=== PATIENT | female | born 1950 | race Caucasian/White ===

== ENCOUNTER 2016-04-26 06:27 | Emergency (ER) | payer MEDICARE, OTHER ==
[~2016-04-26] VITALS: Ht 157.5 cm; Wt 61.5 kg
[~2016-04-26 06:27] MED LIST: AC500T PO; ACET5ELI PO; ALPR0.5T72 PO; ASP81TEC PO; ASPI1CPM PO; CALC-656 PO; CALC-701 PO; CARV3.122 PEG; CARV3.122 PO; CEPH-507 PEG; CINN500C7 PO; CITA-105 PO; CITA20TA4 PO; CITA40TA11 PEG; CYCL10TA9 PO; DPAS20025 PO; EXEN10PE SQ; FLUT10SP NS; FURO20TA4 PEG; FURO20TA4 PO; GUAR GUM PO; HCT25T PO; HYDR-3729 PEG; HYDR25TA4 PEG; HYDR25TA4 PO; IBUP-30 PO; INSU100I23 SC; INSU100I29 SC; INSU100I29 SQ; INSU100V5 SQ; Insulin Human Lispro SC; KCL10CCR PO; LEVE1U SQ; LEVO500T2 PEG; LEVO500T80 PEG; LIRA0.6P SQ; LISI-552 PEG; LISI20TA PO; METF-380 PO; NAPR-689 PO; NUT.237L23 PEG; NUT.237L23 PO; NYST1POW22 TP; OMEG10005 PEG; OMEG1CAP74 PO; OXYC-12 PO; POLY119P5 PEG; POTA10CA43 PEG; PRAV40TA PO; PRAV40TA2 PEG; RALO60TA12 PO; RANI150T11 PEG; RIVA20TA PEG; RIVA20TA2 PO; RLX60T PO; RNT150T PO; SULF1TAB38 PO
--- OUTSIDE RECORDS SUMMARY | 2016-04-26 06:35 | XMS REPORT | Continuity of Care Document ---
Author Author [facility] Organization [facility] Address Unknown Phone Unavailable Care Team Providers Care Rn Clinical Review Name Role Phone No Pcp, Na PCP Unavailable Source Comments Some departments are not documenting in the electronic medical record. If you do not see the information that you expected, contact Release of Information in the Health Information Management department at [phone] for further assistance in locating additional records.[facility] Active Allergies and Adverse Reactions Allergen Noted Date Severity Reactions Comments Morphine 09/13/2014 Low NAUSEA AND VOMITING Current Medications Prescription Sig. Disp. Refills Start End Date Status Date calcium carbonate/vitamin Take 1 Tab by mouth Active D-3 (OSCAL-500+D) 1250 daily. Calcium Carb mg/200 unit tablet 1250mg delivers 500mg elemental Ca hydrochlorothiazide Take 25 mg by mouth Active (HYDRODIURIL) 25 mg daily. tablet lisinopril (PRINIVIL; Take 20 mg by mouth Active ZESTRIL) 20 mg tablet daily. Calcium Carbonate 600 mg Take 1 Tab by mouth Active (1,500 mg) tab daily. albuterol (VENTOLIN HFA, Inhale 2 Puffs by mouth Active PROAIR HFA) 90 every 6 hours as needed mcg/actuation inhaler for Wheezing. [place]-3 Fatty Take 3 Caps by mouth Active Acids-Vitamin E (FISH daily. OIL) 1,000 mg cap Fluticasone Furoate 27.5 Apply 2 Sprays to each Active mcg/actuation spsn nostril as directed daily. lidocaine (LIDODERM) 5 % for pain at peg site 30 Patch 1 09/22/19 Active topical patch 15 carvedilol (COREG) 3.125 1 Tab twice daily. 180 Tab 3 09/22/19 Active mg tablet Administer per feeding 15 tube citalopram (CELEXA) 40 mg Take 1 Tab via feeding 90 Tab 3 09/22/19 Active tablet tube daily. 15 furosemide (LASIX) 20 mg 1 Tab daily as needed 90 Tab 3 09/22/19 Active tablet (swelling). Administer 15 per feeding tube ranitidine(+) (ZANTAC) Take 1 Tab via feeding 180 Tab 3 09/22/19 Active 150 mg tablet tube daily as needed for 15 Heartburn. pravastatin (PRAVACHOL) Take 1 Tab via feeding 90 Cap 3 09/22/19 Active 40 mg tablet tube daily. 15 guaiFENesin (ROBITUSSIN) 20 mL every 6 hours as 1 Bottle 0 09/22/19 Active 100 mg/5 mL oral solution needed. Administer per 15 feeding tube enoxaparin (LOVENOX) 100 Inject 1 mL into area(s) 1 09/22/19 Active mg syrg as directed twice daily. 15 insulin glargine (LANTUS Inject 7 Units into 3 box 3 09/22/19 Active SOLOSTAR) 100 unit/mL (3 area(s) as directed at 15 mL) injection PEN bedtime daily. insulin regular (NOVOLIN Inject 1-7 Units into 10 mL 0 09/22/19 Active R) 100 unit/mL injection area(s) as directed every 15 6 hours. Active Problems Problem Noted Date Labored breathing 09/18/2014 Obesity, Class III, BMI 40-49.9 (morbid obesity) ([facility]) 09/18/2014 Acute ischemic stroke ([facility]) 09/13/2014 Respiratory failure ([facility]) 09/13/2014 S/P administration of tPA (rtPA) in a different facility within the last 24 09/13/2014 hours prior to admission to current facility DM (diabetes mellitus) ([facility]) 09/13/2014 HTN (hypertension) 09/13/2014 Resolved Problems Problem Noted Date Resolved Date On mechanically assisted ventilation ([facility]) 09/13/2014 09/18/2014 Epistaxis 09/13/2014 09/18/2014 Social History Tobacco Use Types Packs/Day Years Used Date Former Smoker Last Filed Vital Signs Vital Sign Reading Time Taken Blood Pressure 133/62 09/21/2014 10:29 AM CDT Pulse 88 09/21/2014 12:30 PM CDT Temperature 36.8 C (98.2 F) 09/21/2014 10:29 AM CDT Respiratory Rate - - Height 1.575 m (5' 2") 09/13/2014 1:51 PM CDT Weight 100.3 kg (221 lb 1.9 oz) 09/20/2014 1:00 AM CDT Body Mass Index 40.43 09/20/2014 1:00 AM CDT Oxygen Saturation 95% 09/21/2014 12:30 PM CDT Plan of Care Health Maintenance Due Date Last Done Comments Physical (Comprehensive) 11/07/1958 Exam Pertussis Vaccine 11/07/1962 Tetanus Vaccine 11/07/1968 Cervical Cancer Screening 11/07/1972 Breast Cancer Screening 1991 Colorectal Cancer 11/07/2001 Screening Shingles Vaccine 2011 Influenza Vaccine 11/21/2015 Results from Last 3 Months Not on file
[2016-04-26 06:47] LABS: BASOPHILS % (AUTO) 0 % (0-10); EOSINOPHILS # (AUTO) 0.1 10^3/uL (0.0-0.3); EOSINOPHILS % (AUTO) 1 % (0-10); LYMPHOCYTES # (AUTO) 1.5 X 10^3 (1.0-4.0); LYMPHOCYTES % (AUTO) 25 % (12-44); MEAN CORPUSCULAR HEMOGLOBIN 32 PG (25-34); MEAN CORPUSCULAR HGB CONC 33 G/DL (32-36); MEAN CORPUSCULAR VOLUME 96 FL (80-99); MEAN PLATELET VOLUME 12.5 FL (7.4-10.4); MONOCYTES # (AUTO) 0.6 X 10^3 (0.0-1.0); MONOCYTES % (AUTO) 11 % (0-12); NEUTROPHILS # (AUTO) 3.7 X 10^3 (1.8-7.8); NEUTROPHILS % (AUTO) 63 % (42-75); PLATELET COUNT 170 10^3/uL (130-400); RED BLOOD COUNT 4.45 10^6/uL (4.35-5.85); WHITE BLOOD COUNT 5.9 10^3/uL (4.3-11.0)
--- NOTE | 2016-04-26 07:07 | ED Respiratory ---
General Stated Complaint: SOA Source: patient, family, EMS Exam Limitations: physical impairment History of Present Illness Time seen by provider: 07:05 Initial Comments This 65-year-old white female presents with a history of shortness of breath that occurred this morning at the [facility]. The patient had been assisted to the bathroom and her oxygen saturation fell into the 70s precipitating the patient's transfer via EMS to the emergency department. The patient has had a previous stroke but has a good understanding of speech but suffers from aphasia. The patient's daughters offer the history of insulin-dependent diabetes, recent episodes of hypoglycemia, urinary tract infections in the past , and intermittent respiratory distress from her rather marked kyphosis. On product test engineer arrival supplemental oxygen per nasal cannula at 3 L patient's sats were 95 percent. I visited with the nurse taking care of the patient at [facility]. She gives a very good history for the patient having had a significant episode that is unusual for the patient. Specifically she described muscle shaking which lasted for several minutes with marked erythema with choking. It was during this time the patient's sat was 74. The patient normally is on room air. The patient when I visited with her stated that she believes this was from her choking on her secretions. Patient would like to have supplemental oxygen for the next day or 2 and she feels more secure with the oxygen. Patient was able to take this 30 mL of liquid Bactrim here PEG tube without difficulty. Allergies and Home Medications Allergies Coded Allergies: morphine (Verified Adverse Reaction, Mild, NAUSEA, 04/26/16) Home Medications Carvedilol 3.125 Mg Tablet 3.125 MG PEG BID (Reported) Citalopram Hydrobromide 40 Mg Tablet 40 MG PEG HS (Reported) Hydrocodone/Acetaminophen 1 Each Tablet 1 TAB PEG Q6H PRN PRN PAIN (Reported) Insulin Detemir 100 Unit/1 Ml Insuln.pen 30Days 10 UNIT SQ BID Prescribed by: HAROLDO TOBAR on 02/25/15 1532 Levofloxacin 500 Mg Tablet #5 500 MG PEG DAILY@0900 Prescribed by: HAROLDO TOBAR on 03/29/15 1241 Lisinopril 20 Mg Tablet 20 MG PEG DAILY (Reported) Nut.tx.gluc.intoler,Lac-Fr,Soy 237 Ml Liquid 273 ML PEG QID (Reported) @ 0600, 1100, 1600, & 2000 Nystatin 1 Each Powder.ea. TP BID (Reported) APPLIES TO BOTH BREASTS AND ABDOMINAL FOLD Pravastatin Sodium 40 Mg Tablet 40 MG PEG HS (Reported) Ranitidine HCl 150 Mg Tablet 150 MG PEG DAILY (Reported) Rivaroxaban 20 Mg Tablet 20 MG PEG DAILY @ 1700 (Reported) Constitutional: No chills, No fever EENTM: No hearing loss, No vision loss Respiratory: No cough, short of breath Cardiovascular: No chest pain, No palpitations Gastrointestinal: No abdominal pain, No vomiting Genitourinary: no symptoms reported Musculoskeletal: muscle stiffness muscle weakness Skin: No rash Psychiatric/Neurological: No Symptoms Reported Hematologic/Lymphatic: No Symptoms Reported Immunological/Allergic: no symptoms reported Past Enbmpzk-Zpthdp-Jkznxu Hx Patient Social History Former Smoker/When Quit: Mar 27, 1999 Immunizations Up To Date Tetanus Booster (TDap): Unknown PED Vaccines UTD: No Date of Pneumonia Vaccine: Nov 19, 2013 Date of Influenza Vaccine: Jan 03, 2015 Seasonal Allergies Seasonal Allergies: Yes Surgeries HX Surgeries: Yes (CARDIAC CATH;PEG TUBE;EGD'S;COLONOSCOPY/POLYPECTOMY;R ROTATOR CUFF;) Surgeries: Abdominal, Cardiac, Section, Hysterectomy, Oophorectomy, Orthopedic, Tonsillectomy Respiratory Hx Respiratory Disorders: Yes (INTUBATED WITH PREVIOUS CVA) Cardiovascular Hx Cardiac Disorders: Yes Cardiac Disorders: Atrial Fibrillation, Coronary Artery Disease, Hypertension Neurological Hx Neurological Disorders: Yes (CVA X 2 WITH SIGNIFICANT DEBILITY-APHASIA, DYSPHAGIA, LEFT HEMIPARESIS) Neurological Disorders: Neuropathy, Stroke Reproductive System Hx Reproductive Disorders: Yes (ENDOMETRIAL CA) Genitourinary Hx Genitourinary Disorders: Yes Genitourinary Disorders: UTI-Chronic Gastrointestinal Hx Gastrointestinal Disorders: Yes (SEVERE DYSPHAGIA) Gastrointestinal Disorders: Gastroesophageal Reflux, Barrios's Esophagus, Diverticulosis, Polyps, Esophagitis, Hiatal Hernia Musculoskeletal Hx Musculoskeletal Disorders: Yes (JOINT PAIN) Musculoskeletal Disorders: Arthritis Endocrine Hx Endocrine Disorders: Yes Endocrine Disorders: Diabetes, Insulin dep HEENT HX ENT Disorders: Yes (APHASIA AND DYSPHAGIA; SINUS PROBLEMS) HEENT Disorders: Cataract, Glaucoma Loss of Vision: Denies Cancer Hx Cancer: Yes (ENDOMETRIAL) Cancer: Uterine Psychosocial Hx Psychiatric Problems: Yes Behavioral Health Disorders: Anxiety, Depression Integumentary HX Skin/Integumentary Disorder: No Blood Transfusions Hx Blood Disorders: No Reviewed Nursing Assessment Reviewed/Agree w Nursing PMH: Yes Family Medical History Significant Family History: Stroke Family Medial History: Patient reports no known family medical history. Physical Exam Vital Signs Vital Sign - Last 12Hours 04/26/16 06:45 Temp 99.4 Pulse 95 Resp 18 B/P 127/75 Pulse Ox 96 O2 Delivery Nasal Cannula O2 Flow Rate 2 Capillary Refill : General Appearance: cachetic no apparent distress Eyes: Bilateral Eye Normal Inspection HEENT: normal ENT inspection Neck: normal inspection Respiratory: decreased breath sounds Cardiovascular: regular rate, rhythm Gastrointestinal: normal bowel sounds non tender soft Extremities: other (status post stroke with limited extremities strength and motion) Neurologic/Psychiatric: alert normal mood/affect motor weakness (status post CVA with aphasia) Skin: normal color warm/dry Progress/Results/Core Measures Results/Orders Lab Results Laboratory Tests Test 04/26/16 06:37 04/26/16 06:52 Range/Units Alanine Aminotransferase (ALT/SGPT) 79 H 0-55 U/L Albumin 3.9 3.2-4.5 G/DL Alkaline Phosphatase 86 40-136 U/L Anion Gap 12 5-14 MMOL/L Aspartate Amino Transf (AST/SGOT) 44 H 5-34 U/L BUN/Creatinine Ratio 46 Basophils # (Auto) 0.0 0.0-0.1 10^3/uL Basophils (%) (Auto) 0 0-10 % Blood Urea Nitrogen 35 H 7-18 MG/DL Calcium Level 9.4 8.5-10.1 MG/DL Carbon Dioxide Level 28 21-32 MMOL/L Chloride Level 99 98-107 MMOL/L Creatinine 0.76 0.60-1.30 MG/DL Eosinophils # (Auto) 0.1 0.0-0.3 10^3/uL Eosinophils (%) (Auto) 1 0-10 % Estimat Glomerular Filtration Rate > 60 Glucose Level 84 70-105 MG/DL Hematocrit 43 35-52 % Hemoglobin 14.1 11.5-16.0 G/DL Lactic Acid Level 1.1 0.5-2.0 MMOL/L Lymphocytes # (Auto) 1.5 1.0-4.0 X 10^3 Lymphocytes (%) (Auto) 25 12-44 % Mean Corpuscular Hemoglobin 32 25-34 PG Mean Corpuscular Hemoglobin Concent 33 32-36 G/DL Mean Corpuscular Volume 96 80-99 FL Mean Platelet Volume 12.5 H 7.4-10.4 FL Monocytes # (Auto) 0.6 0.0-1.0 X 10^3 Monocytes (%) (Auto) 11 0-12 % Neutrophils # (Auto) 3.7 1.8-7.8 X 10^3 Neutrophils (%) (Auto) 63 42-75 % Platelet Count 170 130-400 10^3/uL Potassium Level 4.0 3.6-5.0 MMOL/L Red Blood Count 4.45 4.35-5.85 10^6/uL Red Cell Distribution Width 12.0 10.0-14.5 % Sodium Level 139 135-145 MMOL/L Total Bilirubin 0.5 0.1-1.0 MG/DL Total Protein 6.9 6.4-8.2 G/DL Troponin I < 0.30 <0.30 NG/ML White Blood Count 5.9 4.3-11.0 10^3/uL Urine Amorphous Sediment MOD SONIA URATES H /LPF Urine Bacteria MODERATE H /HPF Urine Bilirubin NEGATIVE NEGATIVE Urine Casts NONE /LPF Urine Clarity CLEAR Urine Color YELLOW Urine Crystals PRESENT H /LPF Urine Culture Indicated YES Urine Glucose (UA) NEGATIVE NEGATIVE Urine Ketones NEGATIVE NEGATIVE Urine Leukocyte Esterase 3+ H NEGATIVE Urine Mucus NEGATIVE /LPF Urine Nitrite NEGATIVE NEGATIVE Urine Protein 2+ H NEGATIVE Urine RBC RARE /HPF Urine RBC (Auto) 3+ H NEGATIVE Urine Specific [place] 1.010 L 1.016-1.022 Urine Squamous Epithelial Cells NONE /HPF Urine Urobilinogen NORMAL NORMAL MG/DL Urine WBC 10-25 H /HPF Urine pH 7 5-9 My Orders Orders-JON BUCHANAN MD Blood Culture (04/26/16 06:34) Lactic Acid Analyzer (04/26/16 06:34) Cbc With Automated Diff (04/26/16 06:34) Comprehensive Metabolic Panel (04/26/16 06:34) Ua Culture If Indicated (04/26/16 06:34) Chest 1 View, Ap/Pa Only (04/26/16 06:34) Ekg Tracing (04/26/16 06:34) Troponin I (04/26/16 06:34) Urine Culture (04/26/16 06:52) Sulfamethoxazole/Trimetho Susp (Bactrim (04/26/16 08:00) Sulfamethoxazole/Trimet Ds Tab (Bactrim (04/26/16 08:00) Vital Signs/I&O Vital Sign - Last 12Hours 04/26/16 06:45 Temp 99.4 Pulse 95 Resp 18 B/P 127/75 Pulse Ox 96 O2 Delivery Nasal Cannula O2 Flow Rate 2 Progress Note : Time: 07:48 Progress Note The patient's laboratory evaluation demonstrated a urinary tract infection. Chest x-ray failed to demonstrate evidence of acute infiltrate. During the patient's evaluation in the emergency department the patient with the supplemental oxygen remained in the mid 90s on her oxygen saturation. The patient's EKG demonstrated a sinus rhythm without any acute current of injury. There was no significant change from the patient's previous EKG. I discussed findings with the patient and the patient's 2 daughters who are here in the emergency department with her. It was there desire that we treat urinary tract infection that the patient be allowed return to medical lives. We 'll initiate Bactrim for the patient. A 23 a.m. The patient, as noted in the present illness, was given Bactrim suspension through her PEG tube without difficulty. Per her request I will order oxygen per nasal cannula at 2 L when necessary for the next few days at [facility]. I'll ask for repeat urine in 3 days with results to be called to Dr. Everett Departure Impression Impression: Primary Impression: Urinary tract infection Qualified Code: N30.00 - Acute cystitis without hematuria Additional Impressions: Hypoxia Aspiration into airway Qualified Code: T17.908A - Unspecified foreign body in respiratory tract, part unspecified causing other injury, initial encounter Disposition: 01 HOME, SELF-CARE Condition: Improved Departure-Patient Inst. Decision time for Depature: 08:27 Referrals: EVA EVERETT MD (PCP/Family) Primary Care Physician Patient Instructions: Choking, Urinary Tract Infection, Adult (DC) Add. Discharge Instructions: Watch for signs of delayed aspiration. Bactrim suspension 30 mL twice a day for 5 days. Oxygen at 2 L per nasal cannula as needed to keep sats greater than 90. Repeat urinalysis on Wednesday with results please to Dr. Everett. JON BUCHANAN MD Apr 26, 2016 07:07
[2016-04-26 07:13] LABS: ALANINE AMINOTRANSFERASE 79 U/L (0-55); ALBUMIN 3.9 G/DL (3.2-4.5); ANION GAP 12 MMOL/L (5-14); ASPARTATE AMINO TRANSFERASE 44 U/L (5-34); BILIRUBIN,TOTAL 0.5 MG/DL (0.1-1.0); BLOOD UREA NITROGEN 35 MG/DL (7-18); BUN/CREATININE RATIO 46; CALCIUM 9.4 MG/DL (8.5-10.1); CARBON DIOXIDE 28 MMOL/L (21-32); CHLORIDE 99 MMOL/L (98-107); CREATININE SERUM 0.76 MG/DL (0.60-1.30); GFR ESTIMATED > 60; GLUCOSE 84 MG/DL (70-105); SODIUM 139 MMOL/L (135-145); TOTAL PROTEIN 6.9 G/DL (6.4-8.2)
[2016-04-26 07:19] LABS: TROPONIN I < 0.30 NG/ML (<0.30)
[2016-04-26 07:20] LABS: BILIRUBIN,URINE NEGATIVE (NEGATIVE); KETONES,URINE NEGATIVE (NEGATIVE); LEUKOCYTE ESTERASE ,URINE 3+ (NEGATIVE); NITRITE,URINE NEGATIVE (NEGATIVE); PH,URINE 7 (5-9); PROTEIN,URINE 2+ (NEGATIVE); UROBILINOGEN,URINE NORMAL (NORMAL)
--- NOTE | 2016-04-26 07:42 | Diagnostic Imaging Report ---
CLINICAL INDICATION: Patient with fever. EXAM: Portable chest x-ray upright view. COMPARISONS: Chest x-ray dated 08/10/2015. FINDINGS: Again seen mild left basilar atelectasis or scarring. There is no interval lung infiltrate. Pulmonary vasculature and cardiac silhouette is within normal limits. Bones show no significant interval abnormality. IMPRESSION: Stable chest x-ray exam with mild left basilar atelectasis or scarring. Dictated by: Dictated on workstation # [id number]
[2016-04-26] MEDS ORDERED: TRIM/SULFAMETH 160/800 (SEPTRA DS) TAB PO ONE (08:00)
[2016-04-26] MEDS ORDERED: SULFAMETHOXAZOLE/TRIMETHO SUSP 10 ML (BACTRIM) UDC PEG SCH (08:00)
[2016-04-26 10:30] VITALS: BP 125/76
== END 2016-04-26 10:30 ==
LOC: EDUNIT# 06:27 → ER 06:30
DX: N39.0 Urinary tract infection, site not specified (principal); R09.02 Hypoxemia; T18.198A Other foreign object in esophagus causing other injury, initial encounter; I69.920 Aphasia following unspecified cerebrovascular disease; I69.991 Dysphagia following unspecified cerebrovascular disease; K22.70 Barrett's esophagus without dysplasia; K44.9 Diaphragmatic hernia without obstruction or gangrene; E11.9 Type 2 diabetes mellitus without complications; I10 Essential (primary) hypertension; I48.2 Chronic atrial fibrillation; M40.209 Unspecified kyphosis, site unspecified; Z79.4 Long term (current) use of insulin; Z79.899 Other long term (current) drug therapy; Z93.1 Gastrostomy status; Y92.129 Unspecified place in nursing home as the place of occurrence of the external cause
CPT/HCPCS: 36415; 51702; 71010; 80053; 81000; 82962; 83605; 84484; 85025; 87040; 87077; 87088; 87186; 93005

== ENCOUNTER 2017-03-25 05:41 | Outpatient (CLI) | payer MEDICARE, OTHER ==
[~2017-03-25] VITALS: Ht 157.5 cm; Wt 74.4 kg
[2017-03-25] MEDS ORDERED: FENT1PAT11 TD (12:49)
[2017-03-25] MEDS ORDERED: BACL10TA PEG (12:49)
[2017-03-25] MEDS ORDERED: HYDR-3820 PEG (12:49)
[2017-03-25] MEDS ORDERED: HYDR25TA4 PEG (12:49)
[2017-03-25] MEDS ORDERED: INSU100I29 SQ (12:49)
[2017-03-25] MEDS ORDERED: CYAN100088 PEG (12:49)
[2017-03-25] MEDS ORDERED: HYOS-20 PEG ×2 (12:49)
[2017-03-25] MEDS ORDERED: CITA20TA7 PEG (12:49)
[2017-03-25] MEDS ORDERED: FENT1PAT8 TD (12:49)
[2017-03-25] MEDS ORDERED: LORA2ORA PEG (12:49)
[2017-03-25] MEDS ORDERED: BISA10SU58 RC (12:49)
== END 2017-03-25 13:08 ==
LOC: PREOP 05:41
PROVIDERS: ATTEND Surgery
DX: Z01.818 Encounter for other preprocedural examination (principal); Z43.1 Encounter for attention to gastrostomy

== ENCOUNTER → 2017-03-26 | Outpatient (CLI) | payer MEDICARE, OTHER ==
[~2017-03-26] MED LIST changes: +BACL10TA PEG; +BISA10SU58 RC; +CITA20TA7 PEG; +CYAN100088 PEG; +FENT1PAT11 TD; +FENT1PAT8 TD; +HYDR-3820 PEG; +HYOS-20 PEG; +LORA2ORA PEG
[2017-03-26 14:45] LABS: BILIRUBIN,URINE NEGATIVE (NEGATIVE); CLARITY,URINE SLIGHTLY CLOUDY; COLOR,URINE YELLOW; GLUCOSE, URINE (UA) NEGATIVE (NEGATIVE); KETONES,URINE NEGATIVE (NEGATIVE); LEUKOCYTE ESTERASE ,URINE 3+ (NEGATIVE); NITRITE,URINE NEGATIVE (NEGATIVE); PH,URINE 8 (5-9); PROTEIN,URINE NEGATIVE (NEGATIVE); UROBILINOGEN,URINE NORMAL (NORMAL)
[2017-03-26 14:57] LABS: BACTERIA,URINE FEW /HPF; SQUAMOUS EPITHELIAL CELL,UR 0-2 /HPF; WBC,URINE 50-100 /HPF
== END ==
PROVIDERS: ATTEND Family Medicine
DX: N39.0 Urinary tract infection, site not specified (principal)
CPT/HCPCS: 81000; 87077; 87088; 87186

== ENCOUNTER 2017-03-29 10:17 | Day surgery (SDC) | payer MEDICARE, OTHER ==
[~2017-03-29] VITALS: Ht 157.5 cm; Wt 74.4 kg
[2017-03-29] MEDS ORDERED: MIDAZOLAM 2 MG/2 ML (VERSED) VIAL IVP PRN (10:30)
[2017-03-29] MEDS ORDERED: NS IV 500 ML 500 ML IV ONE (10:30)
--- NOTE | 2017-03-29 10:52 | Conscious Sedation/ASA ---
Conscious Sedation Pre-Proced Time Reviewed: 10:52 ASA Class: 3 Airway Mallampati Classification: ([place] appropriate class) I. II. III, IV Lungs Heart ASA score ASA 1: a normal healthy patient ASA 2: a patient with a mild systemic disease (mid diabetes, controlled hypertension, obesity ASA 3: a patient with a severe systemic disease that limits activity (angina , COPD, prior Myocardial infarction) ASA 4: a patient with an incapacitating disease that is a constant threat to life (CHF, renal failure) ASA 5: a moribund patient not expected to survive 24 hrs. (ruptured aneurysm) ASA 6: a declared brain patient whose organs are being harvested. For emergent operations, add the letter E after the classification Grade 2 Sedation Plan: Discussed options with patient/fam Note The patient is an appropriate candidate to undergo the planned procedure, sedation, and anesthesia. The patient immediately re-assessed prior to indication. SATINDER FLORIAN MD Mar 29, 2017 10:52 am
[2017-03-29] MEDS ORDERED: NS IV 500 ML 500 ML ONE (10:56)
[2017-03-29 11:10] VITALS: BP 103/56
[2017-03-29] MEDS ORDERED: MIDAZOLAM 2 MG/2 ML (VERSED) VIAL ONE ×3 (11:23)
[2017-03-29] MEDS ORDERED: HURRICAINE EXT TUBE (BENZOCAINE) ONE (11:23)
[2017-03-29] MEDS ORDERED: fentaNYL INJECTION 100 MCG/2 ML AMP ONE (11:23)
[2017-03-29] MEDS ORDERED: NS (IVPB) 50 ML ONE (11:36)
[2017-03-29] MEDS ORDERED: ceFAZolin 1,000 MG (ANCEF) VIAL ONE (11:36)
[2017-03-29] MEDS ORDERED: ceFAZolin 1 GM/NS 50 ML IVPB IV ONE ×2 (11:45)
[2017-03-29] MEDS: fentaNYL INJECTION 100 MCG/2 ML AMP IVP PRN ×2 (12:01→12:05)
[2017-03-29] MEDS ORDERED: proPOfol 200 MG/20 ML (DIPRIVAN) VIAL IV ONE (12:16)
--- NOTE | 2017-03-29 12:53 | Endo Procedure Record ---
Endo Procedure Report Date of Procedure Mar 29, 2017 Surgeon (s) SATINDER FLORIAN MD Post Procedure/Op Diagnosis Inability to open the patient's jaws, making the attempt to replace the PEG tube using an endoscope unsuccessful Procedure Performed Unsuccessful attempt to replace the PEG tube Description of Procedure Anesthesia Type: Conscious Sedation Specimen(s) collected/removed none Description of the Procedure Indication for the procedure: This lady with neurologic dysfunction has a PEG tube, which she is totally dependent on, for nutritional needs. Due to disintegration, replacement under endoscopic guidance was felt to be reasonable. Informed consent was obtained after reviewing the intended procedure in detail. Description of the procedure: She was placed supine on the gurney and conscious sedation achieved initially using Versed and fentanyl and subsequently by propofol infusion by our anesthesiologist. Despite multiple attempts by the nursing staff, myself and the anesthesiologist , her jaws could not be opened due to chronic contractures, making the procedure unsuccessful. Therefore, I brought the daughter into the endoscopy room and explained the challenge to her. She was content to keep using the existing PEG tube for now. Copies To: EVA LORENZO MD, XAVIER M MD Mar 29, 2017 12:53 pm
[2017-03-29 12:55] VITALS: BP 125/63
--- NOTE | 2017-03-29 13:00 | Progress Note-Standard ---
Standard Progress Note Progress Notes/Assess & Plan Date Seen by Provider: Mar 29, 2017 Time Seen by Provider: 12:20 Progress/Assessment & Plan Anesthesia Note ([id number]) Called for a rescue sedation to assist in opening the patients mouth. Versed 2 mg IV and Fentanyl 50 mcg IV had already been given prior to my arrival. Propofol 80 mg given and no change in mouth opening status. Dr Carroll chose to abort the procedure at this point. Pt maintained spontaneous ventilation throughout the procedure. ADWOA ROJO DO Mar 29, 2017 13:00
[2017-03-29 13:25] VITALS: BP 121/68
[2017-03-29 13:55] VITALS: BP 121/68
== END 2017-03-29 13:55 ==
LOC: ENDO 10:17
PROVIDERS: ATTEND Surgery
DX: Z43.1 Encounter for attention to gastrostomy (principal); I63.9 Cerebral infarction, unspecified; E11.9 Type 2 diabetes mellitus without complications; Z53.09 Procedure and treatment not carried out because of other contraindication; Z79.899 Other long term (current) drug therapy
CPT/HCPCS: 82962

== ENCOUNTER 2017-04-15 05:31 | Outpatient (CLI) | payer MEDICARE, OTHER ==
[~2017-04-15] VITALS: Ht 157.5 cm; Wt 74.4 kg
== END 2017-04-15 11:14 ==
LOC: PREOP 05:31
PROVIDERS: ATTEND Surgery
DX: Z01.818 Encounter for other preprocedural examination (principal); Z43.1 Encounter for attention to gastrostomy

== ENCOUNTER → 2017-04-23 | Outpatient (CLI) | payer MEDICARE, MEDICAID ==
--- NOTE | 2017-04-23 12:03 | Diagnostic Imaging Report ---
INDICATION: New PEG tube placement. TIME OF EXAM: 12:04 PM FINDINGS: Tubing overlies the left abdomen, presumably representing the patient's known new PEG tube. There is a rounded mildly opaque structure identified in the right abdomen, adjacent to the right T12 rib. This could conceivably represent the balloon from the patient's recently removed PEG tube. Bowel gas pattern is nonobstructive. There is a large amount of stool in the rectum and sigmoid. A calcific density in the left abdomen is noted which may represent a renal calculus. This measures 8 mm. IMPRESSION: 1. PEG tube placement, as described. There is a rounded, peripherally opaque structure in the right abdomen, perhaps a balloon from patient's recently removed PEG tube. Clinical correlation is recommended. 2. Constipation. 3. Probable left renal calculus. Dictated by: Dictated on workstation # [id number]
== END ==
LOC: RAD 11:00
PROVIDERS: ATTEND Surgery
DX: K59.00 Constipation, unspecified (principal); Z43.1 Encounter for attention to gastrostomy
CPT/HCPCS: 74018

== ENCOUNTER → 2017-04-26 | Outpatient (CLI) | payer MEDICARE, MEDICAID ==
--- NOTE | 2017-04-26 12:43 | Diagnostic Imaging Report ---
INDICATION: Gastrostomy tube evaluation. EXAMINATION: KUB at 12:30 p.m. FINDINGS: The gastrostomy balloon projects over the gastric lumen. There is a 9 mm calcification projecting over the left kidney. IMPRESSION: Left gastrostomy tube appears to be in the stomach. Dictated by: Dictated on workstation # [id number]
== END ==
LOC: RAD 12:03
PROVIDERS: ATTEND Surgery
DX: Z43.1 Encounter for attention to gastrostomy (principal); T18.2XXA Foreign body in stomach, initial encounter
CPT/HCPCS: 74018

== ENCOUNTER → 2017-04-28 | Outpatient (CLI) | payer MEDICARE, MEDICAID ==
--- NOTE | 2017-04-28 10:59 | Diagnostic Imaging Report ---
Procedure: Abdomen flat and erect. Indication: PEG tube replacement. Findings: On the previous exam of 04/23/2017, it was noted that there was a gastrostomy tube in place. There also appeared to be a roughly 3 cm rounded mildly radiopaque density overlying the right mid abdomen. This was felt to be questionable for part of the gastrostomy tube apparatus. The rounded mildly opaque density was again seen on the subsequent exam of to 04/26/2017. That finding is not visualized on this exam however. The gastrostomy tube itself seems to be in good position. As noted on the previous exam, there is a fair amount of gas throughout the rectosigmoid portion of the colon and there is a considerable amount of fecal material throughout the colon. There is some small bowel gas present as well. There is no sign of a bowel obstruction. There is some gas beneath the right hemidiaphragm. This may be related to gas within the hepatic flexure. It is possible that this could be secondary to a small pneumoperitoneum, particularly as the patient has had a recent surgical procedure. If further imaging is desired, a CT would be recommended. Impression: 1. The rounded radiopaque density overlying the right mid abdomen seen at previous studies is not visualized on this exam. The gastrostomy tube seems to be in good position. A followup exam would be recommended for further evaluation. 2. The bowel gas pattern is nonspecific. There is no acute abnormality identified. There still a considerable amount of fecal material throughout the colon. 3. There is a question of a small pneumoperitoneum. 4. These results were discussed with Dr. Bello. Dictated by: Dictated on workstation # [id number]
== END ==
LOC: RAD 09:12
PROVIDERS: ATTEND Surgery
DX: Z43.1 Encounter for attention to gastrostomy (principal)
CPT/HCPCS: 74019

== ENCOUNTER → 2017-04-30 | Outpatient (CLI) | payer MEDICARE, MEDICAID ==
--- NOTE | 2017-04-30 16:00 | Diagnostic Imaging Report ---
INDICATION: Evaluation for foreign body. Comparison with 04/28/2017. FINDINGS: The oval calcified density in the left upper quadrant noted on 04/26/2017 is again identified and does not appear significantly changed. Gastric tube appears in good position overlying the gastric shadow. There is considerable stool present throughout the colon with moderate impacted stool in the rectum. IMPRESSION: 1. Benign-appearing calcification overlying the left upper quadrant measuring 9 mm. This may represent renal calculus. 2. Gastric tube appears in good position. 3. Finding consistent with constipation with moderate impacted stool in the rectal vault. Dictated by: Dictated on workstation # [id number]
== END ==
LOC: RAD 11:33
PROVIDERS: ATTEND Surgery
DX: Z03.89 Encounter for observation for other suspected diseases and conditions ruled out (principal); R19.01 Right upper quadrant abdominal swelling, mass and lump; Z93.1 Gastrostomy status
CPT/HCPCS: 74019

== ENCOUNTER → 2017-05-03 | Outpatient (CLI) | payer MEDICARE, MEDICAID ==
[2017-05-03 09:04] LABS: BILIRUBIN,URINE NEGATIVE (NEGATIVE); CLARITY,URINE CLEAR; COLOR,URINE YELLOW; GLUCOSE, URINE (UA) NEGATIVE (NEGATIVE); KETONES,URINE NEGATIVE (NEGATIVE); LEUKOCYTE ESTERASE ,URINE 3+ (NEGATIVE); NITRITE,URINE POSITIVE (NEGATIVE); PH,URINE 7 (5-9); PROTEIN,URINE 1+ (NEGATIVE); UROBILINOGEN,URINE NORMAL (NORMAL)
[2017-05-03 09:19] LABS: BACTERIA,URINE TRACE /HPF; SQUAMOUS EPITHELIAL CELL,UR 0-2 /HPF; URINE OTHER 0-1 TRANS EPIS /HPF; WBC,URINE 25-50 /HPF
== END ==
PROVIDERS: ATTEND Family Medicine
DX: R35.0 Frequency of micturition (principal); R10.2 Pelvic and perineal pain
CPT/HCPCS: 81000; 87077; 87088; 87186

== ENCOUNTER → 2017-12-16 | Day surgery (SDC) | payer MEDICARE, MEDICAID ==
[~2017-12-16] VITALS: Ht 157.5 cm; Wt 74.4 kg
[~2017-12-16] MED LIST changes: -CITA20TA7 PEG; +CITA20TA9 PEG
[2017-12-16 10:27] VITALS: BP 127/60
[2017-12-16 12:04] VITALS: BP 127/60
--- NOTE | 2017-12-16 12:04 | Progress Note-Post Operative ---
Post-Operative Progess Note Surgeon (s)/Consulting Manager (s) Surgeon MARYCARMEN ANDREW MD Consulting Manager: none Pre-Operative Diagnosis dysphagia, malnutrition. Post-Operative Diagnosis same Procedure & Operative Findings Date of Procedure 12/16/17 Procedure Performed/Findings gastrostomy tube removal and replacement. Anesthesia Type none Estimated Blood Loss Estimated blood loss (mL): minimal Specimens/Packing Specimens Removed none MARYCARMEN ANDREW MD Dec 16, 2017 12:04 pm
--- OUTSIDE RECORDS SUMMARY | 2017-12-16 14:14 | XMS REPORT | Clinical Summary ---
Author Author [facility] Organization [facility] Address Unknown Phone Unavailable Care Team Providers Care House Wirer Helper Name Role Phone No Pcp, Na PCP Unavailable Teena Pang APRN Unavailable Unavailable Karmen Martinez RN Unavailable Unavailable Source Comments Some departments are not documenting in the electronic medical record. If you do not see the information that you expected, contact Release of Information in the Health Information Management department at [phone] for further assistance in locating additional records.[facility] Allergies Active Allergy Reactions Severity Noted Date Comments Morphine NAUSEA AND VOMITING Low 09/13/2014 Current Medications Prescription Sig. Disp. Refills Start [...] hours as needed mcg/actuation inhaler for Wheezing. [place]-3 Fatty Take 3 Caps by mouth Active [...] Obesity, Class III, BMI 40-49.9 (morbid obesity) ([facility]) 09/18/2014 Acute ischemic stroke ([facility]) 09/13/2014 Respiratory failure ([facility]) 09/13/2014 S/P administration of tPA (rtPA) in a different facility within the last 24 09/13/2014 hours prior to admission to current facility DM (diabetes mellitus) ([facility]) 09/13/2014 HTN (hypertension) 09/13/2014 Resolved Problems Problem Noted Date Resolved Date On mechanically assisted ventilation ([facility]) 09/13/2014 09/18/2014 Epistaxis 09/13/2014 09/18/2014 Family History Medical History Relation Name Comments Arthritis-rheumatoid Brother Diabetes Brother Heart Attack Brother High Cholesterol Brother Arthritis-rheumatoid Father Heart Attack Father Heart Failure Father High Cholesterol Father Hypertension Father Rashes/Skin Problems Father Arthritis-rheumatoid Mother Depression Mother Diabetes Mother Heart Attack Mother High Cholesterol Mother Hypertension Mother Migraines Mother Other Mother Stroke Mother Cancer Sister Depression Sister Migraines Sister Relation Name Status Comments Brother Father Mother Sister Social History Tobacco Use Types Packs/Day Years Used Date Former Smoker Sex Assigned at Date Recorded Not on file Last Filed Vital Signs Vital Sign Reading Time Taken Blood Pressure 133/62 09/21/2014 10:29 AM CDT Pulse 88 09/21/2014 12:30 PM CDT Temperature 36.8 C (98.2 F) 09/21/2014 10:29 AM CDT Respiratory Rate - - Oxygen Saturation 95% 09/21/2014 12:30 PM CDT Inhaled Oxygen - - Concentration Weight 100.3 kg (221 lb 1.9 oz) 09/20/2014 1:00 AM CDT Height 157.5 cm (5' 2") 09/13/2014 1:51 PM CDT Body Mass Index 40.44 09/20/2014 1:00 AM CDT Plan of Treatment Health Maintenance Due Date Last Done Comments HEPATITIS C SCREENING 1950 PHYSICAL (COMPREHENSIVE) 11/07/1958 EXAM PERTUSSIS VACCINE 11/07/1962 TETANUS VACCINE 11/07/1968 BREAST CANCER SCREENING 1991 COLORECTAL CANCER 11/07/2001 SCREENING SHINGLES RECOMBINANT 11/07/2001 VACCINE (1 of 2) OSTEOPOROSIS SCREENING 11/07/2016 PNEUMONIA (PCV13/PPSV23) 11/07/2016 VACCINES (1 of 2 - PCV13) INFLUENZA VACCINE 12/20/2017 Results Not on filefrom Last 3 Months
--- OUTSIDE RECORDS SUMMARY | 2017-12-16 14:17 | XMS REPORT | CCD ---
Author Author [facility]onda Everett Organization [facility] Address [address] [place] [address] Phone Care Team Providers Care Director Translational Name Role Phone PP Unavailable CCM Unavailable Summary Purpose Interface Exchange Insurance Providers Payer name Policy type / Coverage type Covered green party ID Effective Begin Date Effective End Date WPS Medicare Part B Medicare Part B [id number] Unknown Unknown [facility] [employer] Medicare Part B [id number] Unknown Unknown Family history Father Diagnosis Age At Onset Arthritis Unknown Hypertension Unknown Mother Diagnosis Age At Onset Diabetes mellitus Type 2 Unknown Depression Unknown Arthritis Unknown Stroke Unknown Hypertension Unknown Sister Diagnosis Age At Onset Colon cancer Unknown Social History Social History Element Codes Description Effective Dates Living arrangements Unknown [facility] 04/15/2017 Marital status Unknown Anothony 06/17/2015 Number of children Unknown 3 06/17/2015 Employment Unknown Retired 06/17/[address]: 3548177 Quit over 10 years ago 15+ 06/17/[address]: 242968153 Never drinks alcohol 06/17/2015 Allergies, Adverse Reactions, Alerts Substance Reaction Codes Entered Date Inactivated Date Status MORPHINE SULFATE emesis, RxNorm: 7052 06/17/2015 No Inactive Date Active Past Medical History Illness Codes Condition Status Onset Date Resolved Date Diabetes Unknown Active 2017 Unknown Essential (primary) hypertension ICD-9: 401.9 ICD-10: I10 Active 07/17/2015 Unknown Pain in left knee ICD- 9: 719.46 ICD-10: M25.562 Active 09/09/2017 Unknown Pain in left shoulder ICD-9: 719.41 ICD-10: M25.512 Active 09/09/2017 Unknown Pain in right knee ICD -9: 719.46 ICD-10: M25.561 Active 09/09/2017 Unknown Pain in right shoulder ICD-9: 719.41 ICD-10: M25.511 Active 09/09/2017 Unknown Type 2 diabetes mellitus with hyperglycemia ICD-9: 250.02 ICD-10: E11.65 Active 06/16/2015 Unknown Type 2 diabetes mellitus without complications ICD-9: 250.00 ICD-10: E11.9 Active 2017 Unknown Low back pain ICD-9: 724.2 ICD-10: M54.5 Active 02/16/2017 Unknown 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 Active 11/09/2016 Unknown Urinary tract infection, site not specified ICD-9: 599.0 ICD-10: N39.0 Active 09/17/2016 Unknown Cervicalgia ICD-9: 723.1 ICD-10: M54.2 Active 07/17/2015 Unknown Dysphagia following cerebral infarction ICD-9: 438.82 ICD-10: I69.391 Active 07/17/2015 Unknown Impacted cerumen, right ear ICD-9: 389.8 ICD-10: H61.21 Active 07/17/2015 Unknown Hyperlipidemia Unknown Active 06/17/2015 Unknown Hypertension Unknown Active 06/17/2015 Unknown Stroke Unknown Active 06/17/2015 Unknown 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 Active 06/16/2015 Unknown Ataxia following cerebral infarction ICD-9: 438.84 ICD-10: I69.393 Active 06/16/2015 Unknown Candidal esophagitis ICD-9: 112.84 ICD-10: B37.81 Active 06/16/2015 Unknown 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 Active 06/16/2015 Unknown Gastrostomy status ICD -9: V44.1 ICD-10: Z93.1 Active 06/16/2015 Unknown Problems Condition Codes Effective Dates Condition Status Diabetes Unknown 2017 Active Essential (primary) hypertension ICD-9: 401.9 ICD-10: I10 07/17/2015 Active Pain in left knee ICD- 9: 719.46 ICD-10: M25.562 09/09/2017 Active Pain in left shoulder ICD-9: 719.41 ICD-10: M25.512 09/09/2017 Active Pain in right knee ICD -9: 719.46 ICD-10: M25.561 09/09/2017 Active Pain in right shoulder ICD-9: 719.41 ICD-10: M25.511 09/09/2017 Active Type 2 diabetes mellitus with hyperglycemia ICD-9: 250.02 ICD-10: E11.65 06/16/2015 Active Type 2 diabetes mellitus without complications ICD-9: 250.00 ICD-10: E11.9 2017 Active Low back pain ICD-9: 724.2 ICD-10: M54.5 02/16/2017 Active 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 11/09/2016 Active Urinary tract infection, site not specified ICD-9: 599.0 ICD-10: N39.0 09/17/2016 Active Cervicalgia ICD-9: 723.1 ICD-10: M54.2 07/17/2015 Active Dysphagia following cerebral infarction ICD-9: 438.82 ICD-10: I69.391 07/17/2015 Active Impacted cerumen, right ear ICD-9: 389.8 ICD-10: H61.21 07/17/2015 Active Hyperlipidemia Unknown 06/17/2015 Active Hypertension Unknown 06/17/2015 Active Stroke Unknown 06/17/2015 Active 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 06/16/2015 Active Ataxia following cerebral infarction ICD-9: 438.84 ICD-10: I69.393 06/16/2015 Active Candidal esophagitis ICD-9: 112.84 ICD-10: B37.81 06/16/2015 Active 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 06/16/2015 Active Gastrostomy status ICD -9: V44.1 ICD-10: Z93.1 06/16/2015 Active Medications Medication Codes Instructions Start Date Stop Date Status Fill Instructions Duragesic 75 mcg/hr transdermal patch RxNorm: 474719 1 Patch TD Q72H 11/11/2017 No Stop Date Active hydrocodone 10 mg-acetaminophen 325 mg tablet RxNorm: 603435 2 Tablet(s) PO scheduled TID and 1 tab q 4 as needed 11/09/2017 No Stop Date Active Not to exceed 3gm/24hr acetaminophen Levemir FlexTouch U-100 Insulin 100 unit/mL (3 mL) subcutaneous pen RxNorm: 189200 8 Unit(s) SQ QHS 11/09/2017 No Stop Date Active fentanyl 100 mcg/hr transdermal patch RxNorm: 032172 1 Patch TD Q72H 2017 12/07/2017 Active hyoscyamine 0.125 mg disintegrating tablet RxNorm: 7834133 1-2 Tablet(s) PO Q8 as needed 11/03/2017 No Stop Date Active carvedilol 3.125 mg tablet RxNorm: 537944 GIVE 1 TABLET VIA PEG TUBE 2 TIMES A DAY 10/22/2017 01/19/2018 Active Generic For:COREG 3.125MG 10/22/2017 9:23:30 AM hydrocodone 10 mg-acetaminophen 325 mg tablet RxNorm: 403100 2 Tablet(s) PO scheduled TID and 1 tab q 4 as needed 10/22/2017 2017 Inactive Not to exceed 3gm/24hr acetaminophen fentanyl 100 mcg/hr transdermal patch RxNorm: 058541 1 Patch TD Q72H 10/20/2017 11/07/2017 Inactive Duragesic 75 mcg/hr transdermal patch RxNorm: 881976 1 Patch TD Q72H 10/20/2017 11/10/2017 Inactive lorazepam 0.5 mg tablet RxNorm: 421385 1 Tablet(s) PO BID and 1 tab q 6 hours prn 10/18/2017 No Stop Date Active baclofen 10 mg tablet RxNorm: 319271 TAKE 1 TABLET THREE TIMES DAILY VIA STOMACH TUBE 10/07/2017 03/05/2018 Active 10/07/2017 5:36:15 PM 10/07/2017 5:36:13 PM N O T I C E Last quantity doesn't match original quantity cranberry extract 500 mg tablet RxNorm: 5777137 1 Tablet(s) PO QAM 10/04/2017 01/31/2018 Active Cipro 500 mg tablet RxNorm: 814386 1 Tablet(s) PO BID 201710/03/2017 Inactive dc keflex hydrocodone 10 mg-acetaminophen 325 mg tablet RxNorm: 790148 2 Tablet(s) PO scheduled TID as needed 10/04/20172017 Inactive Not to exceed 3gm/24hr acetaminophen cranberry extract 500 mg tablet RxNorm: 6547604 1 Tablet(s) PO QAM 10/04/2017 10/03/2017 Inactive Cipro 500 mg tablet RxNorm: 754475 1 Tablet(s) PO BID 201710/10/2017 Inactive dc keflex Duragesic 75 mcg/hr transdermal patch RxNorm: 302042 1 Patch TD Q72H 09/20/2017 10/19/2017 Inactive fentanyl 100 mcg/hr transdermal patch RxNorm: 914030 1 Patch TD Q72H 09/20/2017 10/19/2017 Inactive hyoscyamine 0.125 mg disintegrating tablet RxNorm: 4872003 1 Tablet(s) PO TID and 1 Tablet Q4H prn increased secretions 09/15/2017 11/02/2017 Inactive hydrocodone 10 mg-acetaminophen 325 mg tablet RxNorm: 007739 2 Tablet(s) PO scheduled TID and 1-2 Tabs Q4H PRN pain 09/15/2017 10/03/2017 Inactive Not to exceed 3gm/24hr acetaminophen lorazepam 0.5 mg tablet RxNorm: 469120 1 Tablet(s) PO BID 09/1510/17/2017 Inactive Lexapro 10 mg tablet RxNorm: 971774 1 Tablet(s) PO daily 201709/14/2017 Inactive lisinopril 10 mg tablet RxNorm: 982690 1 Tablet(s) PO daily 06/05/2018 Active Levemir FlexTouch U-100 Insulin 100 unit/mL (3 mL) subcutaneous pen RxNorm: 285736 10 Unit(s) daily 09/09/201709/15 Inactive Duragesic 75 mcg/hr transdermal patch RxNorm: 640707 1 Patch TD Q72H 09/09/2017 09/19/2017 Inactive nystatin 100,000 unit/gram topical cream RxNorm: 071255 1 Gram(s) TOP TID until healed to gaulding 09/06/2017 01/03/2018 Active nystatin 100,000 unit/gram topical cream RxNorm: 503156 1 Gram(s) TOP TID until healed to gaulding 09/06/2017 09/05/2017 Inactive hydrocodone 10 mg-acetaminophen 325 mg tablet RxNorm: 737029 2 Tablet(s) PO scheduled TID as needed 08/31/20172017 Inactive Not to exceed 3gm/24hr acetaminophen fentanyl 100 mcg/hr transdermal patch RxNorm: 528330 1 Patch TD Q72H 08/24/2017 09/19/2017 Inactive fentanyl 50 mcg/hr transdermal patch RxNorm: 970471 1 Patch TD Q72H 08/24/2017 09/08/2017 Inactive fentanyl 25 mcg/hr transdermal patch RxNorm: 146486 1 Patch TD Q72H 08/24/2017 08/24/2017 Inactive hyoscyamine 0.125 mg disintegrating tablet RxNorm: 7354190 Tablet(s) 1-2 Tablet(s ) PO Q8 as needed 08/23/2017 09/14/2017 Inactive hydrocodone 10 mg-acetaminophen 325 mg tablet RxNorm: 598843 1 Tablet(s) PO scheduled TID et Q6 hours as needed 08/18/2017 08/30/2017 Inactive Not to exceed 3gm/24hr acetaminophen hydrochlorothiazide 25 mg tablet RxNorm: 594710 GIVE 1 TABLET VIA PEG TUBE ONCE DAILY 08/17/2017 02/12/2018 Active Generic For:HYDRODIURIL 25 MG TABLET 2017 9:01:54 AM08/11/2017 10:12:00 AM lorazepam 0.5 mg tablet RxNorm: 275840 1/2 Tablet(s) PO BID 09/14/2017 Inactive fentanyl 100 mcg/hr transdermal patch RxNorm: 227356 1 Patch TD Q72H 07/26/2017 08/23/2017 Inactive fentanyl 25 mcg/hr transdermal patch RxNorm: 279265 1 Patch TD Q72H 07/26/2017 08/23/2017 Inactive hydrocodone 10 mg-acetaminophen 325 mg tablet RxNorm: 762812 1 Tablet(s) PO scheduled TID et Q6 hours as needed 07/16/2017 08/14/2017 Inactive Not to exceed 3gm/24hr acetaminophen hyoscyamine 0.125 mg disintegrating tablet RxNorm: 8063597 Tablet(s) 1-2 Tablet(s ) PO Q8 as needed 07/13/2017 08/01/2017 Inactive baclofen 10 mg tablet RxNorm: 311288 TAKE 1 TABLET THREE TIMES DAILY VIA STOMACH TUBE 07/12/2017 10/06/2017 Inactive 07/12/2017 9:04:08 AM N O T I C E Last quantity doesn't match original quantity lorazepam 0.5 mg tablet RxNorm: 158370 1/2 Tablet(s) PO BID 08/02/2017 Inactive fentanyl 100 mcg/hr transdermal patch RxNorm: 772193 1 Patch TD Q72H 06/28/2017 07/25/2017 Inactive fentanyl 25 mcg/hr transdermal patch RxNorm: 517159 1 Patch TD Q72H 06/28/2017 07/25/2017 Inactive hyoscyamine 0.125 mg disintegrating tablet RxNorm: 8039952 Tablet(s) 1-2 Tablet(s ) PO Q8 as needed 06/03/2017 06/22/2017 Inactive fentanyl 25 mcg/hr transdermal patch RxNorm: 722966 1 Patch TD Q72H 05/26/2017 06/24/2017 Inactive Levemir FlexTouch U-100 Insulin 100 unit/mL (3 mL) subcutaneous pen RxNorm: 640377 20 Unit(s) SQ BID 05/26/2017 Inactive fentanyl 100 mcg/hr transdermal patch RxNorm: 676860 1 Patch TD Q72H 05/26/2017 06/24/2017 Inactive hydrocodone 10 mg-acetaminophen 325 mg tablet RxNorm: 491528 1 Tablet(s) PO scheduled BID et Q6 hours as needed 05/12/2017 05/11/2017 Inactive hydrocodone 10 mg-acetaminophen 325 mg tablet RxNorm: 846269 1 Tablet(s) PO scheduled TID et Q6 hours as needed 05/12/2017 06/10/2017 Inactive Not to exceed 3gm/24hr acetaminophen docusate sodium 100 mg tablet RxNorm: 2466753 1 Tablet(s) PO BID as needed if no bowel movement 05/10/2017 05/09/2017 Inactive lisinopril 20 mg tablet RxNorm: 524802 1 Tablet(s) PO daily 09/08/2017 Inactive docusate sodium 100 mg tablet RxNorm: 2688928 1 Tablet(s) PO BID as needed if no bowel movement 05/10/2017 09/14/2017 Inactive fentanyl 25 mcg/hr transdermal patch RxNorm: 336029 1 Patch TD Q72H 05/03/2017 05/25/2017 Inactive lorazepam 0.5 mg tablet RxNorm: 279356 1/2 Tablet(s) PO BID 02/201807/01/2017 Inactive fentanyl 100 mcg/hr transdermal patch RxNorm: 026796 1 Patch TD Q72H 04/27/2017 05/25/2017 Inactive carvedilol 3.125 mg tablet RxNorm: 575556 Tablet(s) GIVE 1 TABLET VIA PEG TUBE DAILY 04/15/2017 10/21/2017 Inactive Levemir FlexTouch 100 unit/mL (3 mL) subcutaneous insulin pen RxNorm: 174724 10 Unit(s) SQ BID 04/15/2017 2017 Inactive hyoscyamine 0.125 mg disintegrating tablet RxNorm: 4840614 1-2 Tablet(s) PO Q8 as needed 04/14/2017 05/03/2017 Inactive hydrocodone 10 mg-acetaminophen 325 mg tablet RxNorm: 675259 1 Tablet(s) PO scheduled BID et Q6 hours as needed 04/13/2017 05/02/2017 Inactive baclofen 10 mg tablet RxNorm: 364993 TAKE 1 TABLET THREE TIMES DAILY VIA STOMACH TUBE 04/08/2017 05/22/2017 Inactive 04/08/2017 9:32:07 AM fentanyl 25 mcg/hr transdermal patch RxNorm: 571971 1 Patch TD Q72H 04/05/2017 05/02/2017 Inactive lidocaine 10 mg/mL (1 %) injection solution RxNorm: 6690306 1 Milliliter(s) Inj daily Mix with rocephin 03/31/20172017 Inactive Pt resides at [facility] lidocaine 10 mg/mL (1 %) injection solution RxNorm: 3975257 1 Milliliter(s) Inj daily Mix with rocephin 03/31/20172017 Inactive Pt resides at [facility] fentanyl 100 mcg/hr transdermal patch RxNorm: 116114 1 Patch TD Q72H 03/29/2017 04/26/2017 Inactive nystatin 100,000 unit/gram topical powder RxNorm: 088204 APPLY UNDER BREASTS TWICE DAILY FOR YEAST SKIN INFECTION AND APPLY TO UNDERARM AND ABDOMINAL FOLDS AND PERIAREA TWICE DAILY 03/29/20172017 Inactive 03/27/2017 9:12:50 AM nystatin 100,000 unit/gram topical powder RxNorm: 964332 APPLY UNDER BREASTS TWICE DAILY FOR YEAST SKIN INFECTION AND APPLY TO UNDERARM AND ABDOMINAL FOLDS AND PERIAREA TWICE DAILY 03/29/20172017 Inactive 03/29/2017 9:42:55 AM2017 9:12:50 AM hyoscyamine 0.125 mg disintegrating tablet RxNorm: 9467792 1-2 Tablet(s) PO Q8 as needed 03/08/2017 03/27/2017 Inactive fentanyl 25 mcg/hr transdermal patch RxNorm: 269078 1 Patch TD Q72H 03/02/2017 03/31/2017 Inactive hydrocodone 10 mg-acetaminophen 325 mg tablet RxNorm: 894053 1 Tablet(s) PO scheduled BID et Q6 hours as needed 02/17/2017 03/18/2017 Inactive fentanyl 100 mcg/hr transdermal patch RxNorm: 495505 1 Patch TD Q72H 02/17/2017 03/18/2017 Inactive Lexapro 10 mg tablet RxNorm: 527845 1 Tablet(s) PO daily 201604/14/2017 Inactive Lexapro 10 mg tablet RxNorm: 844558 1 Tablet(s) PO daily 201602/04/2017 Inactive fentanyl 25 mcg/hr transdermal patch RxNorm: 342030 1 Patch TD Q72H 02/04/2017 03/01/2017 Inactive cyanocobalamin (vit B-12) 1,000 mcg tablet RxNorm: 969574 1 Tablet(s) PO daily 01/18/2017 12/13/2017 Active hyoscyamine 0.125 mg disintegrating tablet RxNorm: 0307142 Tablet(s) 1-2 Tablet(s ) PO Q8 as needed 01/18/2017 02/06/2017 Inactive baclofen 10 mg tablet RxNorm: 750289 TAKE 1 TABLET THREE TIMES DAILY VIA STOMACH TUBE 01/04/2017 02/17/2017 Inactive 01/04/2017 9:25:18 AM fentanyl 100 mcg/hr transdermal patch RxNorm: 989406 1 Patch TD Q72H 12/25/2016 01/23/2017 Inactive hydrochlorothiazide 25 mg tablet RxNorm: 550059 Tablet(s) GIVE 1 TABLET VIA PEG TUBE ONCE A DAY 12/14/2016 07/11/2017 Inactive fentanyl 100 mcg/hr transdermal patch RxNorm: 266091 1 Patch TD Q72H 11/25/2016 12/24/2016 Inactive hyoscyamine 0.125 mg disintegrating tablet RxNorm: 3590207 Tablet(s) 1-2 Tablet(s ) PO Q8 as needed 11/25/2016 12/14/2016 Inactive nystatin 100,000 unit/gram topical powder RxNorm: 552729 APPLY UNDER BREASTS TWICE DAILY FOR YEAST SKIN INFECTION AND APPLY TO UNDERARM AND ABDOMINAL FOLDS AND PERIAREA TWICE DAILY 11/24/20162016 Inactive 11/24/2016 9:34:02 AM hydrocodone 10 mg-acetaminophen 325 mg tablet RxNorm: 895490 1 Tablet(s) PO scheduled BID et Q6 hours as needed 11/02/2016 12/01/2016 Inactive cyanocobalamin (vit B-12) 1,000 mcg tablet RxNorm: 052920 1 Tablet(s) PO daily 11/02/2016 01/17/2017 Inactive hyoscyamine 0.125 mg disintegrating tablet RxNorm: 3820030 1-2 Tablet(s) PO Q8 as needed 10/19/2016 11/24/2016 Inactive fentanyl 100 mcg/hr transdermal patch RxNorm: 355925 1 Patch TD Q72H 10/13/2016 11/11/2016 Inactive hydrocodone 10 mg-acetaminophen 325 mg tablet RxNorm: 553137 1 Tablet(s) PO scheduled BID et Q6 hours as needed 10/05/2016 11/01/2016 Inactive baclofen 10 mg tablet RxNorm: 930474 TAKE 1 TABLET THREE TIMES DAILY VIA STOMACH TUBE 10/01/2016 11/14/2016 Inactive 10/01/2016 9:24:37 AM carvedilol 3.125 mg tablet RxNorm: 360094 GIVE 1 TABLET VIA PEG TUBE 2 TIMES A DAY 09/30/2016 12/28/2016 Inactive Generic For:COREG 3.125MG 09/30/2016 1:12:28 PM09/25/2016 9:06:11 AM Probiotic Blend 2 million cell-50 mg capsule RxNorm: 1 Capsule(s) PO BID 09/17/2016 09/23/2016 Inactive Keflex 500 mg capsule RxNorm: 813489 1 Capsule(s) PO TID 201609/23/2016 Inactive hyoscyamine 0.125 mg/5 mL oral elixir RxNorm: 3816021 5 Milliliter(s) PO TID 09/08/2016 09/17/2016 Inactive hyoscyamine 0.125 mg/5 mL oral elixir RxNorm: 1908284 5 Milliliter(s) PO TID 09/08/2016 09/07/2016 Inactive hyoscyamine 0.125 mg disintegrating tablet RxNorm: 0431390 1-2 Tablet(s) PO Q8 as needed 09/07/2016 10/18/2016 Inactive fentanyl 100 mcg/hr transdermal patch RxNorm: 965535 1 Patch TD Q72H 09/01/2016 09/30/2016 Inactive ranitidine 150 mg tablet RxNorm: 134445 1 Tablet(s) PO BID 08/2016 No Stop Date Active hydrocodone 10 mg-acetaminophen 325 mg tablet RxNorm: 450749 1 Tablet(s) PO scheduled BID et Q6 hours as needed 08/24/2016 09/22/2016 Inactive cyanocobalamin (vit B-12) 1,000 mcg tablet RxNorm: 722909 1 Tablet(s) PO daily 08/12/2016 11/01/2016 Inactive cyanocobalamin (vit B-12) 1,000 mcg tablet RxNorm: 091132 1 Tablet(s) PO daily 08/12/2016 08/11/2016 Inactive hydrocodone 10 mg-acetaminophen 325 mg tablet RxNorm: 234993 1-2 Tablet(s) PO Q6 as needed 08/03/2016 08/17/2016 Inactive fentanyl 100 mcg/hr transdermal patch RxNorm: 892121 1 Patch TD Q72H 08/03/2016 08/31/2016 Inactive nystatin 100,000 unit/gram topical powder RxNorm: 417840 APPLY UNDER BREASTS TWICE DAILY FOR YEAST SKIN INFECTION AND APPLY TO UNDERARM AND ABDOMINAL FOLDS AND PERIAREA TWICE DAILY 07/17/20162016 Inactive 07/17/2016 3:56:54 PM fentanyl 100 mcg/hr transdermal patch RxNorm: 964338 1 Patch TD Q72H 07/15/2016 08/02/2016 Inactive lisinopril 20 mg tablet RxNorm: 204681 1 Tablet(s) PO daily 03/28/2017 Inactive hydrocodone 10 mg-acetaminophen 325 mg tablet RxNorm: 220970 1-2 Tablet(s) PO Q6 as needed 07/01/2016 07/15/2016 Inactive Xarelto 20 mg tablet RxNorm: 2664563 Tablet(s) TAKE 1 TABLET VIA PEG TUBE AT BEDTIME 06/19/2016 04/14/2017 Inactive fentanyl 100 mcg/hr transdermal patch RxNorm: 177363 1 Patch TD Q72H 06/17/2016 07/14/2016 Inactive nystatin 100,000 unit/gram topical powder RxNorm: 769637 APPLY TO UNDER BREASTS TWICE DAILY FOR YEAST SKIN INFECTION AND APPLY TO UNDERARM AND ABDOMINAL FOLDS AND PERIAREA TWICE DAILY 06/15/20162016 Inactive Generic For:MYCOSTATIN 100, 000 UNITS/GM PW 06/15/2016 12:28:26 PM fentanyl 100 mcg/hr transdermal patch RxNorm: 313003 1 Patch TD Q72H 06/05/2016 06/16/2016 Inactive hydrocodone 10 mg-acetaminophen 325 mg tablet RxNorm: 092692 1-2 Tablet(s) PO Q6 as needed 06/02/2016 06/16/2016 Inactive Probiotic Blend 2 million cell-50 mg capsule RxNorm: 1 Capsule(s) PO BID 05/13/2016 05/19/2016 Inactive nitrofurantoin 100 mg capsule RxNorm: 456008 1 Capsule(s) PO BID 05/13/2016 05/19/2016 Inactive nitrofurantoin 100 mg capsule RxNorm: 269063 1 Capsule(s) PO BID 05/13/2016 05/12/2016 Inactive fentanyl 75 mcg/hr transdermal patch RxNorm: 721428 1 Patch TD Q72H 05/13/2016 06/04/2016 Inactive Keflex 500 mg capsule RxNorm: 959796 1 Capsule(s) PO TID 201605/13/2016 Inactive Patient at [facility] Keflex 500 mg capsule RxNorm: 466504 1 Capsule(s) PO TID 201605/06/2016 Inactive hydrocodone 10 mg-acetaminophen 325 mg tablet RxNorm: 394387 1-2 Tablet(s) PO Q6 as needed 05/04/2016 06/01/2016 Inactive hydrochlorothiazide 25 mg tablet RxNorm: 736677 Tablet(s) GIVE 1 TABLET VIA PEG TUBE ONCE A DAY 04/29/2016 11/24/2016 Inactive hydrochlorothiazide 25 mg tablet RxNorm: 316684 GIVE 1 TABLET VIA PEG TUBE ONCE A DAY 04/22/2016 04/28/2016 Inactive Generic For:HYDRODIURIL 25 MG TABLET refill request fentanyl 75 mcg/hr transdermal patch RxNorm: 186870 1 Patch TD Q72H 04/17/2016 05/12/2016 Inactive Xarelto 20 mg tablet RxNorm: 1531810 TAKE 1 TABLET VIA PEG TUBE AT BEDTIME 04/16/2016 06/14/2016 Inactive 04/16/2016 9:08:52 AM citalopram 40 mg tablet RxNorm: 507635 1 Tablet(s) PO daily 02/201702/25/2017 Inactive citalopram 40 mg tablet RxNorm: 893199 1 Tablet(s) PO daily 08/201604/01/2016 Inactive hydrocodone 10 mg-acetaminophen 325 mg tablet RxNorm: 565391 1-2 Tablet(s) PO Q6 as needed 03/27/2016 04/25/2016 Inactive fentanyl 75 mcg/hr transdermal patch RxNorm: 079151 1 Patch TD Q72H 03/18/2016 04/16/2016 Inactive hydrocodone 10 mg-acetaminophen 325 mg tablet RxNorm: 851732 1-2 Tablet(s) PO Q6 as needed 03/11/2016 03/26/2016 Inactive citalopram 40 mg tablet RxNorm: 394129 1 Tablet(s) PO daily 03/26/2016 Inactive Levemir FlexTouch U-100 Insulin 100 unit/mL (3 mL) subcutaneous pen RxNorm: 088846 20 Unit(s) SQ BID 03/02/201611/2016 Inactive lisinopril 20 mg tablet RxNorm: 502514 1 Tablet(s) PO daily 08/201507/01/2016 Inactive Ativan 0.5 mg tablet RxNorm: 079068 1 Tablet(s) PO Q4H as needed 02/18/2016 04/14/2017 Inactive Xarelto 20 mg tablet RxNorm: 6355316 TAKE 1 TABLET VIA PEG TUBE AT BEDTIME 02/12/2016 04/11/2016 Inactive 02/12/2016 9:08:22 AM hydrocodone 10 mg-acetaminophen 325 mg tablet RxNorm: 330310 1-2 Tablet(s) PO Q6 as needed 02/12/2016 03/10/2016 Inactive fentanyl 75 mcg/hr transdermal patch RxNorm: 439343 1 Patch TD Q72H 02/11/2016 03/11/2016 Inactive citalopram 20 mg tablet RxNorm: 676073 1 Tablet(s) PO daily 10/201503/03/2016 Inactive fentanyl 75 mcg/hr transdermal patch RxNorm: 920100 1 TD Q72H 01/17/2016 02/10/2016 Inactive hydrocodone 10 mg-acetaminophen 325 mg tablet RxNorm: 697886 1-2 Tablet(s) PO Q6 as needed 01/07/2016 02/05/2016 Inactive fentanyl 50 mcg/hr transdermal patch RxNorm: 205040 1 TD Q72H 01/01/2016 01/16/2016 Inactive fentanyl 50 mcg/hr transdermal patch RxNorm: 303905 1 TD q 3 days 12/26/2015 12/31/2015 Inactive Xarelto 20 mg tablet RxNorm: 6970161 TAKE 1 TABLET VIA PEG TUBE AT BEDTIME 12/17/2015 02/11/2016 Inactive 12/16/2015 3:27:57 PM12/14/2015 9:45:17 AM hydrocodone 10 mg-acetaminophen 325 mg tablet RxNorm: 047633 1-2 Tablet(s) PO Q6 as needed 12/06/2015 01/04/2016 Inactive fentanyl 50 mcg/hr transdermal patch RxNorm: 515822 1 TD q 3 days 12/06/2015 12/25/2015 Inactive fentanyl 25 mcg/hr transdermal patch RxNorm: 995893 1 TD q 3 days 11/18/2015 12/05/2015 Inactive Zithromax Z-Eliu 250 mg tablet RxNorm: 640154 1 Tablet(s) PO UD 10/09/2015 02/26/2016 Inactive z pack as directed- please write out instructions- pt at [facility] nystatin 100,000 unit/gram topical powder RxNorm: 855761 APPLY TO UNDER BREASTS TWICE DAILY FOR YEAST SKIN INFECTION AND APPLY TO UNDERARM AND ABDOMINAL FOLDS AND PERIAREA TWICE DAILY 10/07/20152015 Inactive Generic For:MYCOSTATIN 100, 000 UNITS/GM PW 10/05/2015 12:07:35 PM fentanyl 25 mcg/hr transdermal patch RxNorm: 554623 1 TD q 3 days 10/03/2015 11/01/2015 Inactive fentanyl 25 mcg/hr transdermal patch RxNorm: 688445 1 TD q 3 days 09/27/2015 10/02/2015 Inactive fentanyl 25 mcg/hr transdermal patch RxNorm: 605043 1 TD q 3 days 09/17/2015 09/26/2015 Inactive fentanyl 25 mcg/hr transdermal patch RxNorm: 242334 1 TD q 3 days 08/30/2015 09/16/2015 Inactive hydrocodone 5 mg-acetaminophen 325 mg tablet RxNorm: 021387 1 Tablet(s) PO Q6 as needed 08/30/2015 09/28/2015 Inactive Diflucan 100 mg tablet RxNorm: 039946 1 Tablet(s) Miscellaneous per peg daily 07/29/2015 08/04/2015 Inactive fentanyl 25 mcg/hr transdermal patch RxNorm: 764926 1 TD q 3 days 07/18/2015 08/29/2015 Inactive hydrocodone 5 mg-acetaminophen 325 mg tablet RxNorm: 190258 1 Tablet(s) PO Q6 as needed 07/18/2015 08/29/2015 Inactive Diflucan 100 mg tablet RxNorm: 778440 1 Tablet(s) Miscellaneous per peg daily 06/17/2015 06/23/2015 Inactive Senna-S 8.6 mg-50 mg tablet RxNorm: 355686 1 Tablet(s) PO daily as needed constipation No Start Date Active Dulcolax (bisacodyl) 10 mg rectal suppository RxNorm: 146829 1 Suppository RTL daily as needed constipation No Start Date Active albuterol sulfate concentrate 5 mg/mL(0.5 %) solution for nebulization RxNorm: 187990 1 Vial INH daily as needed congestion No Start Date Active polyethylene glycol 3350 17 gram/dose oral powder RxNorm: 657919 17 Gram(s) PO daily as needed constipation No Start Date Active baclofen 10 mg tablet RxNorm: 260251 1 Tablet(s) PO TID No Start Date 09/30/2016 Inactive Ativan 0.5 mg tablet RxNorm: 330460 1 Tablet(s) PO Q4H as needed No Start Date 02/17/2016 Inactive ranitidine 150 mg tablet RxNorm: 009655 1 Tablet(s) PO daily No Start Date 08/24/2016 Inactive carvedilol 3.125 mg tablet RxNorm: 451625 1 Tablet(s) PO daily No Start Date 09/29/2016 Inactive citalopram 40 mg tablet RxNorm: 462890 1 Tablet(s) PO daily No Start Date 01/27/2016 Inactive Probiotic Blend oral RxNorm: oral No Start Date 05/12/2016 Inactive hydrochlorothiazide 25 mg tablet RxNorm: 760214 1 Tablet(s) PO daily No Start Date 04/21/2016 Inactive Levemir FlexTouch 100 unit/mL (3 mL) subcutaneous insulin pen RxNorm: 029093 10 Unit(s) SQ BID No Start Date 03/01/2016 Inactive Zithromax Z-Eliu 250 mg tablet RxNorm: 807807 1 Tablet(s) PO UD No Start Date 10/08/2015 Inactive z pack as directed- please write out instructions- pt at [facility] nystatin 100,000 unit/gram topical powder RxNorm: 389187 Gram(s) TOP BID as needed No Start Date 10/06/2015 Inactive pravastatin 40 mg tablet RxNorm: 916968 Tablet(s) PO daily No Start Date 04/14/2017 Inactive lorazepam 0.5 mg tablet RxNorm: 243288 1/2 Tablet(s) PO BID No Start Date 05/02/2017 Inactive Xarelto 20 mg tablet RxNorm: 0824562 1 Tablet(s) PO daily No Start Date 12/16/2015 Inactive fentanyl 25 mcg/hr transdermal patch RxNorm: 112858 1 TD q 3 days No Start Date 07/17/2015 Inactive lisinopril 20 mg tablet RxNorm: 788907 1 Tablet(s) PO daily No Start Date 02/24/2016 Inactive hydrocodone 5 mg-acetaminophen 325 mg tablet RxNorm: 898753 1 Tablet(s) PO Q6 as needed No Start Date 07/17/2015 Inactive citalopram 40 mg tablet RxNorm: 255991 1 Tablet(s) PO daily No Start Date 03/03/2016 Inactive hyoscyamine 0.125 mg disintegrating tablet RxNorm: 3761047 1-2 Tablet(s) PO Q8 as needed No Start Date 09/06/2016 Inactive Medication Administered No Medication Administered data Immunizations No Immunization data Assessments Condition Codes Effective Dates Type 2 diabetes mellitus without complications ICD-10: E11.9 ICD-9: 250.00 2017 Essential (primary) hypertension ICD-10: I10 ICD-9: 401.9 2017 Pain in left knee ICD-10: M25.562 ICD-9: 719.46 09/09/2017 Type 2 diabetes mellitus with hyperglycemia ICD-10: E11.65 ICD-9: 250.02 09/09/2017 Pain in right knee ICD-10: M25.561 ICD-9: 719.46 09/09/2017 Pain in right shoulder ICD-10: M25.511 ICD-9: 719.41 09/09/2017 Pain in left shoulder ICD-10: M25.512 ICD-9: 719.41 09/09/2017 Low back pain ICD-10: M54.5 ICD-9: 724.2 06/08/2017 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 ICD-9: 536.49 11/09/2016 Urinary tract infection, site not specified ICD-10: N39.0 ICD-9: 599.0 09/17/2016 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 ICD-9: 438.82 07/18/2015 Impacted cerumen, right ear ICD-10: H61.21 ICD-9: 389.8 07/18/2015 Cervicalgia ICD-10: M54.2 ICD-9: 723.1 07/18/2015 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 ICD-9: V44.1 06/17/2015 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 ICD-9: 438.13 06/17/2015 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 ICD-9: 438.84 06/17/2015 Candidal esophagitis ICD-10: B37.81 ICD-9: 112.84 06/17/2015 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 ICD-9: 438.81 06/17/2015 Reason For Visit Reason For Visit Effective Dates Notes hypertension 2017 pain 09/09/2017 pain 06/08/2017 hypertension 04/15/2017 ~generic 02/16/2017 PEG tube ~generic 11/09/2016 PEG tube earache 07/18/2015 hypertension 06/17/2015 Results Observation Observation Code Item Item Code Result Date %Hba1C Wkz570 % HbA1c 40516-4 5.5 % 11/04/2017 %Hba1C Gkq982 Gluc [address] 111 mg/dL 11/04/2017 Culture Urine [id number] URINE CULTURE SEE NOTES 10/04/2017 Culture Urine [id number] Continued Results 10/04/2017 Urine Culture Ucult Complete >100,000 col/ml aerobic growth sent to ref lab 10/02/2017 Urinalysis Ord28 U-Color Yellow 10/01/2017 Urinalysis Ord28 U-Clarity Cloudy 10/01/2017 Urinalysis Ord28 U-Gluc Negative 10/01/2017 Urinalysis Ord28 U-Bili Negative 10/01/2017 Urinalysis Ord28 U-Ketone Negative 10/01/2017 Urinalysis Ord28 U-SG 1.015 10/01/2017 Urinalysis Ord28 U-Blood Negative 10/01/2017 Urinalysis Ord28 U-pH 8.0 10/01/2017 Urinalysis Ord28 U-Protein Trace 10/01/2017 Urinalysis Ord28 U-Urobilin 1.0 E.U./dL E.U./dL 10/01/2017 Urinalysis Ord28 U-Nitrites Positive 10/01/2017 Urinalysis Ord28 U-Leuk Small 10/01/2017 Urinalysis Ord28 U-Bact 4+ 10/01/2017 Urinalysis Ord28 U-Squamous Epi 0-5 per/HPF 10/01/2017 Urinalysis Ord28 U-Crystal None per/HPF 10/01/2017 Urinalysis Ord28 U-Mucus None 10/01/2017 Urinalysis Ord28 U-Renal tubular epi None 10/01/2017 Urinalysis Ord28 U-RBC RARE per/HPF 10/01/2017 Urinalysis Ord28 U-Transitional epi 0-5 per/HPF 10/01/2017 Urinalysis Ord28 U-WBC 10-20 per/HPF 10/01/2017 Urinalysis Ord28 U-Cast None per/HPF 10/01/2017 Urinalysis Ord28 U-VOL VOLUME SUFFICIENT (10mL) 10/01/2017 Urinalysis Ord28 U-Yeast NEGATIVE 10/01/2017 Urinalysis Ord28 U-Com Culture to follow 10/01/2017 B12 Xes624 B12 >1500.00 pg/ml 02/19/2017 Cbc With Differential Ord2 WBC 7.26 K/ul 02/02/2017 Cbc With Differential Ord2 RBC 3.36 M/ul 02/02/2017 Cbc With Differential Ord2 HGB 10.6 g/dl 02/02/2017 Cbc With Differential Ord2 Neut% 55.0 % 02/02/2017 Cbc With Differential Ord2 HCT 33.9 % 02/02/2017 Cbc With Differential Ord2 MCV 100.9 fl 02/02/2017 Cbc With Differential Ord2 Lymph% 31.4 % 02/02/2017 Cbc With Differential Ord2 MCH 31.5 pg 02/02/2017 Cbc With Differential Ord2 Pender% 8.3 % 02/02/2017 Cbc With Differential Ord2 MCHC 31.3 pg 02/02/2017 Cbc With Differential Ord2 Eos% 5.2 % 02/02/2017 Cbc With Differential Ord2 PLT 127 K/ul 02/02/2017 Cbc With Differential Ord2 Baso% 0.1 % 02/02/2017 Cbc With Differential Ord2 RDW 12.3 % 02/02/2017 Cbc With Differential Ord2 Neut ABS# 3.99 K/ul 02/02/2017 Cbc With Differential Ord2 Lymph ABS# 2.28 K/ul 02/02/2017 Cbc With Differential Ord2 Pender ABS# 0.6 K/ul 02/02/2017 Cbc With Differential Ord2 Eos ABS# 0.4 K/ul 02/02/2017 Cbc With Differential Ord2 Baso ABS# 0.0 K/ul 02/02/2017 %Hba1C Sxy848 % HbA1c 84207-8 5.2 % 02/02/2017 %Hba1C Qoo011 Gluc Ave 103 mg/dL 02/02/2017 Comp Metabolic Vby782 NA 138 mEq/L 02/02/2017 Comp Metabolic Izv824 K 4.5 mEq/L 02/02/2017 Comp Metabolic Vpd798 CL 98 mEq/L 02/02/2017 Comp Metabolic Nka537 CO2 37.0 mEq/L 02/02/2017 Comp Metabolic Uki138 ANION GAP 8 02/02/2017 Comp Metabolic Eqi584 GLUCOSE 94 mg/dL 02/02/2017 Comp Metabolic Guf593 Creat 0.7 mg/dL 02/02/2017 Comp Metabolic Cgq495 eGFR 88 ml/min/1.73m2 02/02/2017 Comp Metabolic Vct389 BUN 36 mg/dL 02/02/2017 Comp Metabolic Abv499 B/C Ratio 50.7 Ratio 02/02/2017 Comp Metabolic Ham887 CALCIUM 9.0 mg/dL 02/02/2017 Comp Metabolic Ptd713 ALK PHOS 78 U/L 02/02/2017 Comp Metabolic Yoo475 AST(SGOT) 22 U/L 02/02/2017 Comp Metabolic Blf794 ALT(SGPT) 28 U/L 02/02/2017 Comp Metabolic Uyz126 BILI T 0.3 mg/dL 02/02/2017 Comp Metabolic Cet296 ALBUMIN 3.3 g/dL 02/02/2017 Comp Metabolic Iqy792 TPRO 5.9 g/dL 02/02/2017 Comp Metabolic Mbb502 GLOB 2.6 g/dL 02/02/2017 Comp Metabolic Lwv603 A/G Ratio 1.3 Ratio 02/02/2017 Comp Metabolic Qln533 Osmo 284 mOsmo 02/02/2017 %Hba1C Cdt499 % HbA1c 59550-9 5.0 % 10/29/2016 %Hba1C Uft495 Gluc Ave 97 mg/dL 10/29/2016 Culture Urine [id number] URINE CULTURE SEE NOTES 09/21/2016 Culture Urine [id number] Continued Results 09/21/2016 Urine Culture Ucult Complete >100,000 col/ml aerobic growth sent to ref lab 09/18/2016 Urinalysis Ord28 U-Color Yellow 09/17/2016 Urinalysis Ord28 U-Clarity Clear 09/17/2016 Urinalysis Ord28 U-Gluc Negative 09/17/2016 Urinalysis Ord28 U-Bili Negative 09/17/2016 Urinalysis Ord28 U-Ketone Negative 09/17/2016 Urinalysis Ord28 U-SG 1.015 09/17/2016 Urinalysis Ord28 U-Blood Trace-intact 09/17/2016 Urinalysis Ord28 U-pH 7.5 09/17/2016 Urinalysis Ord28 U-Protein Negative 09/17/2016 Urinalysis Ord28 U-Urobilin 0.2 E.U./dL E.U./dL 09/17/2016 Urinalysis Ord28 U-Nitrites Negative 09/17/2016 Urinalysis Ord28 U-Leuk Moderate 09/17/2016 Urinalysis Ord28 U-Bact TRACE 09/17/2016 Urinalysis Ord28 U-Squamous Epi None per/HPF 09/17/2016 Urinalysis Ord28 U-Crystal None per/HPF 09/17/2016 Urinalysis Ord28 U-Mucus None 09/17/2016 Urinalysis Ord28 U-Renal tubular epi None 09/17/2016 Urinalysis Ord28 U-RBC 5-10 per/HPF 09/17/2016 Urinalysis Ord28 U-Transitional epi None per/HPF 09/17/2016 Urinalysis Ord28 U-WBC 75-100 per/HPF 09/17/2016 Urinalysis Ord28 U-Cast None per/HPF 09/17/2016 Urinalysis Ord28 U-VOL VOLUME SUFFICIENT (10mL) 09/17/2016 Urinalysis Ord28 U-Yeast NEGATIVE 09/17/2016 Urinalysis Ord28 U-Com Culture to follow 09/17/2016 Cbc With Differential Ord2 WBC 6.51 K/ul 07/30/2016 Cbc With Differential Ord2 RBC 3.58 M/ul 07/30/2016 Cbc With Differential Ord2 HGB 11.6 g/dl 07/30/2016 Cbc With Differential Ord2 Neut% 43.9 % 07/30/2016 Cbc With Differential Ord2 HCT 35.6 % 07/30/2016 Cbc With Differential Ord2 MCV 99.4 fl 07/30/2016 Cbc With Differential Ord2 Lymph% 41.3 % 07/30/2016 Cbc With Differential Ord2 MCH 32.4 pg 07/30/2016 Cbc With Differential Ord2 Pender% 7.2 % 07/30/2016 Cbc With Differential Ord2 MCHC 32.6 pg 07/30/2016 Cbc With Differential Ord2 Eos% 7.4 % 07/30/2016 Cbc With Differential Ord2 PLT 160 K/ul 07/30/2016 Cbc With Differential Ord2 Baso% 0.2 % 07/30/2016 Cbc With Differential Ord2 RDW 12.1 % 07/30/2016 Cbc With Differential Ord2 Neut ABS# 2.86 K/ul 07/30/2016 Cbc With Differential Ord2 Lymph ABS# 2.69 K/ul 07/30/2016 Cbc With Differential Ord2 Pender ABS# 0.5 K/ul 07/30/2016 Cbc With Differential Ord2 Eos ABS# 0.5 K/ul 07/30/2016 Cbc With Differential Ord2 Baso ABS# 0.0 K/ul 07/30/2016 Comp Metabolic Fit359 NA 141 mEq/L 07/30/2016 Comp Metabolic Wzo900 K 4.3 mEq/L 07/30/2016 Comp Metabolic Opz266 CL 100 mEq/L 07/30/2016 Comp Metabolic Bgn088 CO2 33.0 mEq/L 07/30/2016 Comp Metabolic Nir108 ANION GAP 12 07/30/2016 Comp Metabolic Afx716 GLUCOSE 64 mg/dL 07/30/2016 Comp Metabolic Vyj151 Creat 0.5 mg/dL 07/30/2016 Comp Metabolic Ktc266 eGFR 126 ml/min/1.73m2 07/30/2016 Comp Metabolic Ofr796 BUN 25 mg/dL 07/30/2016 Comp Metabolic Jvj124 B/C Ratio 48.1 Ratio 07/30/2016 Comp Metabolic Fnt171 CALCIUM 8.9 mg/dL 07/30/2016 Comp Metabolic Qrg462 ALK PHOS 90 U/L 07/30/2016 Comp Metabolic Zja164 AST(SGOT) 22 U/L 07/30/2016 Comp Metabolic Fyo387 ALT(SGPT) 36 U/L 07/30/2016 Comp Metabolic Itd163 BILI T 0.3 mg/dL 07/30/2016 Comp Metabolic Rsa272 ALBUMIN 3.4 g/dL 07/30/2016 Comp Metabolic Ozf460 TPRO 6.0 g/dL 07/30/2016 Comp Metabolic Ocv222 GLOB 2.7 g/dL 07/30/2016 Comp Metabolic Cjf825 A/G Ratio 1.3 Ratio 07/30/2016 Comp Metabolic Evi682 Osmo 284 mOsmo 07/30/2016 A1C Frequency Cgc054 A1CF 05942-4 [place] [facility] [place]: 05-12[place]2016 07/30/2016 %Hba1C Lkv526 % HbA1c 53948-6 5.2 % 05/12/2016 %Hba1C Zth9[address] 103 mg/dL 05/12/2016 Culture Urine [id number] URINE CULTURE SEE NOTES 05/11/2016 Urine Culture Ucult Complete >100,000 col/ml aerobic growth sent to ref lab 05/07/2016 Urinalysis Ord28 U-Color Yellow 05/06/2016 Urinalysis Ord28 U-Clarity Slightly Cloudy 05/06/2016 Urinalysis Ord28 U-Gluc Negative 05/06/2016 Urinalysis Ord28 U-Bili Negative 05/06/2016 Urinalysis Ord28 U-Ketone Negative 05/06/2016 Urinalysis Ord28 U-SG 1.015 05/06/2016 Urinalysis Ord28 U-Blood Trace-intact 05/06/2016 Urinalysis Ord28 U-pH 7.5 05/06/2016 Urinalysis Ord28 U-Protein Negative 05/06/2016 Urinalysis Ord28 U-Urobilin 0.2 E.U./dL E.U./dL 05/06/2016 Urinalysis Ord28 U-Nitrites Negative 05/06/2016 Urinalysis Ord28 U-Leuk Large 05/06/2016 Urinalysis Ord28 U-Bact 2+ 05/06/2016 Urinalysis Ord28 U-Squamous Epi 5-10 per/HPF 05/06/2016 Urinalysis Ord28 U-Crystal None per/HPF 05/06/2016 Urinalysis Ord28 U-Mucus None 05/06/2016 Urinalysis Ord28 U-Renal tubular epi None 05/06/2016 Urinalysis Ord28 U-RBC 3-5 per/HPF 05/06/2016 Urinalysis Ord28 U-Transitional epi 0-5 per/HPF 05/06/2016 Urinalysis Ord28 U-WBC TNTC per/HPF 05/06/2016 Urinalysis Ord28 U-Cast None per/HPF 05/06/2016 Urinalysis Ord28 U-VOL VOLUME SUFFICIENT (10mL) 05/06/2016 Urinalysis Ord28 U-Yeast NEGATIVE 05/06/2016 Urinalysis Ord28 U-Com Culture to follow 05/06/2016 Culture Urine [id number] URINE CULTURE SEE NOTES 03/17/2016 Culture Urine [id number] Continued Results 03/17/2016 Urine Culture Ucult Complete >100,000 col/ml aerobic growth sent to ref lab 03/13/2016 Urinalysis Ord28 U-Color Yellow 03/12/2016 Urinalysis Ord28 U-Clarity Clear 03/12/2016 Urinalysis Ord28 U-Gluc Negative 03/12/2016 Urinalysis Ord28 U-Bili Negative 03/12/2016 Urinalysis Ord28 U-Ketone Negative 03/12/2016 Urinalysis Ord28 U-SG 1.015 03/12/2016 Urinalysis Ord28 U-Blood Negative 03/12/2016 Urinalysis Ord28 U-pH 7.5 03/12/2016 Urinalysis Ord28 U-Protein Negative 03/12/2016 Urinalysis Ord28 U-Urobilin 0.2 E.U./dL E.U./dL 03/12/2016 Urinalysis Ord28 U-Nitrites Negative 03/12/2016 Urinalysis Ord28 U-Leuk Moderate 03/12/2016 Urinalysis Ord28 U-Bact 1+ 03/12/2016 Urinalysis Ord28 U-Squamous Epi None per/HPF 03/12/2016 Urinalysis Ord28 U-Crystal CALCIUM OXALATE, AND TRIPLE PHOSPHATE per/HPF 03/12/2016 Urinalysis Ord28 U-Mucus None 03/12/2016 Urinalysis Ord28 U-Renal tubular epi None 03/12/2016 Urinalysis Ord28 U-RBC None per/HPF 03/12/2016 Urinalysis Ord28 U-Transitional epi None per/HPF 03/12/2016 Urinalysis Ord28 U-WBC 10-20 per/HPF 03/12/2016 Urinalysis Ord28 U-Cast None per/HPF 03/12/2016 Urinalysis Ord28 U-VOL VOLUME SUFFICIENT (10mL) 03/12/2016 Urinalysis Ord28 U-Yeast NEGATIVE 03/12/2016 Urinalysis Ord28 U-Com Culture to follow 03/12/2016 Cbc With Differential Ord2 WBC 6.68 K/ul 02/11/2016 Cbc With Differential Ord2 RBC 4.16 M/ul 02/11/2016 Cbc With Differential Ord2 HGB 13.3 g/dl 02/11/2016 Cbc With Differential Ord2 HCT 42.1 % 02/11/2016 Cbc With Differential Ord2 Neut% 47.1 % 02/11/2016 Cbc With Differential Ord2 MCV 101.2 fl 02/11/2016 Cbc With Differential Ord2 Lymph% 38.8 % 02/11/2016 Cbc With Differential Ord2 MCH 32.0 pg 02/11/2016 Cbc With Differential Ord2 Pender% 9.1 % 02/11/2016 Cbc With Differential Ord2 Eos% 4.9 % 02/11/2016 Cbc With Differential Ord2 MCHC 31.6 pg 02/11/2016 Cbc With Differential Ord2 Baso% 0.1 % 02/11/2016 Cbc With Differential Ord2 PLT 174 K/ul 02/11/2016 Cbc With Differential Ord2 Neut ABS# 3.14 K/ul 02/11/2016 Cbc With Differential Ord2 RDW 12.5 % 02/11/2016 Cbc With Differential Ord2 Lymph ABS# 2.59 K/ul 02/11/2016 Cbc With Differential Ord2 Pender ABS# 0.6 K/ul 02/11/2016 Cbc With Differential Ord2 Eos ABS# 0.3 K/ul 02/11/2016 Cbc With Differential Ord2 Baso ABS# 0.0 K/ul 02/11/2016 Comp Metabolic Okj955 NA 137 mEq/L 02/11/2016 Comp Metabolic Nmp992 K 4.4 mEq/L 02/11/2016 Comp Metabolic Pvy929 CL 100 mEq/L 02/11/2016 Comp Metabolic Wum024 CO2 25.0 mEq/L 02/11/2016 Comp Metabolic Wfs734 ANION GAP 16 02/11/2016 Comp Metabolic Qkl827 GLUCOSE 99 mg/dL 02/11/2016 Comp Metabolic Qkj652 Creat 0.6 mg/dL 02/11/2016 Comp Metabolic Vqx965 eGFR 99 ml/min/1.73m2 02/11/2016 Comp Metabolic Pyb140 BUN 27 mg/dL 02/11/2016 Comp Metabolic Luw331 B/C Ratio 42.2 Ratio 02/11/2016 Comp Metabolic Zvi457 CALCIUM 9.2 mg/dL 02/11/2016 Comp Metabolic Dwp932 ALK PHOS 74 U/L 02/11/2016 Comp Metabolic Vbl550 AST(SGOT) 24 U/L 02/11/2016 Comp Metabolic Ksk663 ALT(SGPT) 26 U/L 02/11/2016 Comp Metabolic Khj237 BILI T 0.5 mg/dL 02/11/2016 Comp Metabolic Hsj997 ALBUMIN 3.5 g/dL 02/11/2016 Comp Metabolic Rsu578 TPRO 6.2 g/dL 02/11/2016 Comp Metabolic Duj240 GLOB 2.7 g/dL 02/11/2016 Comp Metabolic Oox046 A/G Ratio 1.3 Ratio 02/11/2016 Comp Metabolic Jdd268 Osmo 279 mOsmo 02/11/2016 Review of Systems System Result Effective Dates Constitutional No recent illness 2017 Constitutional No chills 2017 Constitutional No fever 2017 Eyes No blindness 2017 Eyes No vision change 2017 Ears/Nose/Throat/Neck No dizziness 2017 Ears/Nose/Throat/Neck dysphagia 2017 Ears/Nose/Throat/Neck No nasal allergies 2017 Ears/Nose/Throat/Neck No sore throat Ears/Nose/Throat/Neck No postnasal drip 2017 Ears/Nose/Throat/Neck No sinus congestion 2017 Cardiovascular No chest pain/pressure Cardiovascular No dyspnea 2017 Cardiovascular No edema 2017 Cardiovascular exercise intolerance 11/08 Cardiovascular fatigue 2017 Cardiovascular No near-syncope/dizziness 2017 Respiratory No chest tightness 2017 Respiratory No cough 2017 Respiratory dyspnea 2017 Respiratory pedal edema 2017 Gastrointestinal No abdominal pain 2017 Gastrointestinal No constipation 2017 Gastrointestinal No diarrhea 2017 Gastrointestinal No gastroesophageal reflux 2017 Gastrointestinal No nausea 2017 Gastrointestinal No vomiting 2017 Genitourinary/Nephrology No dysuria 11/08 Musculoskeletal stiffness 2017 Musculoskeletal No swelling 2017 Musculoskeletal muscle weakness 2017 Musculoskeletal No myalgias 2017 Neurologic No dizziness 2017 Neurologic No headache 2017 Neurologic neck pain 2017 Endocrine diabetes mellitus type 2 2017 Constitutional No recent illness 2017 Constitutional No chills 09/09/2017 Constitutional No fever 09/09/2017 Eyes No blindness 09/09/2017 Eyes No vision change 09/09/2017 Ears/Nose/Throat/Neck No dizziness 2017 Ears/Nose/Throat/Neck dysphagia 2017 Ears/Nose/Throat/Neck No nasal allergies 09/09/2017 Ears/Nose/Throat/Neck No postnasal drip 09/09/2017 Ears/Nose/Throat/Neck No sinus congestion 09/09/2017 Ears/Nose/Throat/Neck No sore throat Cardiovascular No chest pain/pressure Cardiovascular No dyspnea 09/09/2017 Cardiovascular No edema 09/09/2017 Cardiovascular exercise intolerance 09/09 Cardiovascular fatigue 09/09/2017 Cardiovascular No near-syncope/dizziness 09/09/2017 Respiratory No chest tightness 2017 Respiratory No cough 09/09/2017 Respiratory dyspnea 09/09/2017 Respiratory pedal edema 09/09/2017 Gastrointestinal No abdominal pain 2017 Gastrointestinal No constipation 2017 Gastrointestinal No diarrhea 09/09/2017 Gastrointestinal No gastroesophageal reflux 09/09/2017 Gastrointestinal No nausea 09/09/2017 Gastrointestinal No vomiting 09/09/2017 Genitourinary/Nephrology No dysuria 09/09 Musculoskeletal stiffness 09/09/2017 Musculoskeletal No swelling 09/09/2017 Musculoskeletal muscle weakness 2017 Musculoskeletal No myalgias 09/09/2017 Neurologic No dizziness 09/09/2017 Neurologic No headache 09/09/2017 Neurologic neck pain 09/09/2017 Endocrine diabetes mellitus type 2 2017 Musculoskeletal joint complaint 2017 Constitutional No recent illness 2017 Constitutional No fever 06/08/2017 Eyes No eye erythema 06/08/2017 Eyes No vision change 06/08/2017 Cardiovascular No chest pain/pressure Cardiovascular No dyspnea 06/08/2017 Cardiovascular No edema 06/08/2017 Cardiovascular exercise intolerance 06/08 Cardiovascular fatigue 06/08/2017 Respiratory No chest tightness 2017 Respiratory cough 06/08/2017 Gastrointestinal No abdominal pain 2017 Gastrointestinal No constipation 2017 Gastrointestinal No diarrhea 06/08/2017 Gastrointestinal No gastroesophageal reflux 06/08/2017 Gastrointestinal No nausea 06/08/2017 Gastrointestinal No vomiting 06/08/2017 Musculoskeletal stiffness 06/08/2017 Musculoskeletal No swelling 06/08/2017 Musculoskeletal muscle weakness 2017 Musculoskeletal No myalgias 06/08/2017 Endocrine diabetes mellitus type 2 2017 Ears/Nose/Throat/Neck dysphagia 2017 Respiratory dyspnea 06/08/2017 Neurologic No alteration of consciousness 06/08/2017 Neurologic aphasia 06/08/2017 Neurologic spasms/spasticity 06/08/2017 Neurologic speech difficulties 2017 Constitutional No recent illness 2017 Constitutional No chills 04/15/2017 Constitutional No fever 04/15/2017 Eyes No eye erythema 04/15/2017 Eyes No vision change 04/15/2017 Ears/Nose/Throat/Neck No dizziness 2017 Ears/Nose/Throat/Neck dysphagia 2017 Ears/Nose/Throat/Neck No nasal allergies 04/15/2017 Ears/Nose/Throat/Neck No sore throat Ears/Nose/Throat/Neck No postnasal drip 04/15/2017 Ears/Nose/Throat/Neck No sinus congestion 04/15/2017 Cardiovascular No chest pain/pressure Cardiovascular No dyspnea 04/15/2017 Cardiovascular No edema 04/15/2017 Cardiovascular exercise intolerance 04/15 Cardiovascular fatigue 04/15/2017 Cardiovascular No near-syncope/dizziness 04/15/2017 Respiratory No chest tightness 2017 Respiratory dyspnea 04/15/2017 Respiratory pedal edema 04/15/2017 Gastrointestinal No abdominal pain 2017 Gastrointestinal No constipation 2017 Gastrointestinal No diarrhea 04/15/2017 Gastrointestinal No gastroesophageal reflux 04/15/2017 Gastrointestinal No nausea 04/15/2017 Gastrointestinal No vomiting 04/15/2017 Genitourinary/Nephrology No dysuria 04/15 Musculoskeletal stiffness 04/15/2017 Musculoskeletal No swelling 04/15/2017 Musculoskeletal muscle weakness 2017 Musculoskeletal No myalgias 04/15/2017 Neurologic No dizziness 04/15/2017 Neurologic No headache 04/15/2017 Neurologic neck pain 04/15/2017 Endocrine diabetes mellitus type 2 2017 Respiratory No cough 04/15/2017 Constitutional No recent illness 2016 Constitutional No chills 02/16/2017 Constitutional fatigue 02/16/2017 Constitutional No fever 02/16/2017 Constitutional No insomnia 02/16/2017 Constitutional malaise 02/16/2017 Eyes No blindness 02/16/2017 Eyes No vision change 02/16/2017 Ears/Nose/Throat/Neck dental pain 2016 Ears/Nose/Throat/Neck No dizziness 2016 Ears/Nose/Throat/Neck dysphagia 2016 Ears/Nose/Throat/Neck No headache 2016 Ears/Nose/Throat/Neck No hearing loss Ears/Nose/Throat/Neck No nasal allergies 02/16/2017 Ears/Nose/Throat/Neck No sore throat Ears/Nose/Throat/Neck No postnasal drip 02/16/2017 Ears/Nose/Throat/Neck No sinus congestion 02/16/2017 Cardiovascular No chest pain/pressure Cardiovascular No dyspnea 02/16/2017 Cardiovascular No edema 02/16/2017 Cardiovascular exercise intolerance 02/16 Cardiovascular fatigue 02/16/2017 Cardiovascular No near-syncope/dizziness 02/16/2017 Respiratory No chest tightness 2016 Respiratory cough 02/16/2017 Respiratory dyspnea 02/16/2017 Respiratory pedal edema 02/16/2017 Gastrointestinal No abdominal pain 2016 Gastrointestinal No constipation 2016 Gastrointestinal No diarrhea 02/16/2017 Gastrointestinal No gastroesophageal reflux 02/16/2017 Gastrointestinal No nausea 02/16/2017 Gastrointestinal No vomiting 02/16/2017 Genitourinary/Nephrology No dysuria 02/16 Genitourinary/Nephrology No nocturia Musculoskeletal stiffness 02/16/2017 Musculoskeletal No swelling 02/16/2017 Musculoskeletal muscle weakness 2016 Musculoskeletal No myalgias 02/16/2017 Dermatologic rash 02/16/2017 Dermatologic No sores 02/16/2017 Neurologic No dizziness 02/16/2017 Neurologic No headache 02/16/2017 Neurologic neck pain 02/16/2017 Neurologic No syncope 02/16/2017 Psychiatric No anxiety 02/16/2017 Psychiatric No depression 02/16/2017 Endocrine diabetes mellitus type 2 2016 Constitutional No recent illness 2016 Constitutional No chills 11/09/2016 Constitutional No diaphoresis 11/09/2016 Constitutional No fever 11/09/2016 Eyes No eye erythema 11/09/2016 Ears/Nose/Throat/Neck No nasal discharge 11/09/2016 Cardiovascular No chest pain/pressure Cardiovascular No dyspnea 11/09/2016 Respiratory No cough 11/09/2016 Dermatologic erythema 11/09/2016 Neurologic No alteration of consciousness 11/09/2016 Neurologic memory loss 11/09/2016 Constitutional No recent illness 2015 Constitutional No anorexia 07/18/2015 Constitutional No night sweats 2015 Constitutional No chills 07/18/2015 Constitutional No diaphoresis 07/18/2015 Constitutional No fatigue 07/18/2015 Ears/Nose/Throat/Neck No dizziness 2015 Ears/Nose/Throat/Neck No headache 2015 Cardiovascular No chest pain/pressure Respiratory No productive sputum 2015 Respiratory No cough 07/18/2015 Gastrointestinal No abdominal pain 2015 Gastrointestinal No constipation 2015 Gastrointestinal No diarrhea 07/18/2015 Genitourinary/Nephrology No dysuria 07/17 Musculoskeletal joint complaint 2015 Musculoskeletal back pain 07/18/2015 Dermatologic No rash 07/18/2015 Neurologic No alteration of consciousness 07/18/2015 Constitutional No recent illness 2015 Constitutional No chills 06/17/2015 Constitutional fatigue 06/17/2015 Constitutional No fever 06/17/2015 Constitutional No insomnia 06/17/2015 Constitutional malaise 06/17/2015 Eyes No blindness 06/17/2015 Eyes No vision change 06/17/2015 Ears/Nose/Throat/Neck dental pain 2015 Ears/Nose/Throat/Neck No dizziness 2015 Ears/Nose/Throat/Neck dysphagia 2015 Ears/Nose/Throat/Neck No headache 2015 Ears/Nose/Throat/Neck No hearing loss Ears/Nose/Throat/Neck No nasal allergies 06/17/2015 Ears/Nose/Throat/Neck No sore throat Ears/Nose/Throat/Neck No postnasal drip 06/17/2015 Ears/Nose/Throat/Neck No sinus congestion 06/17/2015 Cardiovascular No chest pain/pressure Cardiovascular No dyspnea 06/17/2015 Cardiovascular No edema 06/17/2015 Cardiovascular exercise intolerance 06/16 Cardiovascular fatigue 06/17/2015 Cardiovascular No near-syncope/dizziness 06/17/2015 Respiratory No chest tightness 2015 Respiratory cough 06/17/2015 Respiratory dyspnea 06/17/2015 Respiratory pedal edema 06/17/2015 Gastrointestinal No abdominal pain 2015 Gastrointestinal No constipation 2015 Gastrointestinal No diarrhea 06/17/2015 Gastrointestinal No gastroesophageal reflux 06/17/2015 Gastrointestinal No nausea 06/17/2015 Gastrointestinal No vomiting 06/17/2015 Genitourinary/Nephrology No dysuria 06/16 Genitourinary/Nephrology No nocturia Musculoskeletal stiffness 06/17/2015 Musculoskeletal No swelling 06/17/2015 Musculoskeletal muscle weakness 2015 Musculoskeletal No myalgias 06/17/2015 Dermatologic rash 06/17/2015 Dermatologic No sores 06/17/2015 Neurologic No dizziness 06/17/2015 Neurologic No headache 06/17/2015 Neurologic neck pain 06/17/2015 Neurologic No syncope 06/17/2015 Psychiatric No anxiety 06/17/2015 Psychiatric No depression 06/17/2015 Physical Exam Exam Name System Name Item Name Status Result Effective Dates Notes Full Exam - General 1994 Constitutional general appearance Development: well developed 2017 None Full Exam - General 1994 Constitutional general appearance Development: appears stated age 0811/08/2017 None Full Exam - General 1994 Eyes conjunctiva /eyelids Overall: conjunctiva clear 2017 None Full Exam - General 1994 Eyes conjunctiva /eyelids Overall: cornea clear 2017 None Full Exam - General 1994 Eyes conjunctiva /eyelids Overall: eyelids normal 2017 None Full Exam - General 1994 Eyes pupils and irises Overall: pupils equal, round, reactive to light and accomodation 2017 None Full Exam - General 1994 Ears/Nose/Throat otoscopic exam Overall: external auditory canals clear 2017 None Full Exam - General 1994 Ears/Nose/Throat otoscopic exam Overall: tympanic membranes clear 2017 None Full Exam - General 1994 Ears/Nose/Throat lips/teeth/gingiva Overall: benign lips 2017 None Full Exam - General 1994 Ears/Nose/Throat oral cavity/pharynx/larynx Overall: no masses 2017 None Full Exam - General 1994 Respiratory auscultation Overall: breath sounds clear bilaterally 2017 None Full Exam - General 1994 Respiratory respiratory effort/rhythm Overall: no retractions 2017 None Full Exam - General 1994 Respiratory respiratory effort/rhythm Overall: normal rate 2017 None Full Exam - General 1994 Cardiovascular extremities Overall: no clubbing 2017 None Full Exam - General 1994 Cardiovascular auscultation of heart Overall: regular rate 2017 None Full Exam - General 1994 Cardiovascular auscultation of heart Overall: normal heart sounds 2017 None Full Exam - General 1994 Abdomen abdominal exam Overall: no tenderness 2017 None Full Exam - General 1994 Abdomen abdominal exam Overall: normal bowel sounds 2017 None Full Exam - General 1994 Abdomen abdominal exam Upper quadrant: no guarding 2017 left upper abdomen with PEG tube in place, c/d/i Full Exam - General 1994 Lymphatic neck nodes Overall: anterior cervical chain benign 2017 None Full Exam - General 1994 Lymphatic neck nodes Overall: posterior cervical chain benign 2017 None Full Exam - General 1994 Musculoskeletal digits and nails Nails: thickened 2017 and short nails on stubby fingers, contracture of fingers on left hand digits 4/5 more deforedmed than digits 3, 2 , 1 on left hand, right hand with normal movement Full Exam - General 1994 Musculoskeletal spine, ribs and pelvis Overall: spine benign 2017 None Full Exam - General 1994 Musculoskeletal spine, ribs and pelvis Overall: sacroiliac joint benign 2017 None Full Exam - General 1994 Musculoskeletal spine, ribs and pelvis Overall: good posture 2017 None Full Exam - General 1994 Musculoskeletal gait and station Station: kyphosis 2017 None Full Exam - General 1994 Musculoskeletal head and neck Overall: head atraumatic 2017 None Full Exam - General 1994 Musculoskeletal head and neck Cervical Spine: deformity 2017 None Full Exam - General 1994 Neurologic deep tendon reflexes Overall: deep tendon reflexes intact 2017 None Full Exam - General 1994 Neurologic cranial nerves Overall: crainial nerves 2 - 12 grossly intact 2017 None Full Exam - General 1994 Psychiatric orientation/consciousness Overall: oriented to person, place and time 2017 None Full Exam - General 1994 Psychiatric mood and affect Overall: normal mood and affect 2017 None Full Exam - General 1994 Constitutional general appearance Assistive Device: wheelchair 2017 None Full Exam - General 1994 Constitutional general appearance Hygiene/Attention to Grooming: poor hygiene 2017 None Full Exam - General 1994 Constitutional general appearance Development: well developed 09/09/2017 None Full Exam - General 1994 Constitutional general appearance Development: appears stated age 0609/09/2017 None Full Exam - General 1994 Constitutional general appearance Hygiene/Attention to Grooming: good hygiene 09/09/2017 None Full Exam - General 1994 Eyes conjunctiva /eyelids Overall: conjunctiva clear 09/09/2017 None Full Exam - General 1994 Eyes conjunctiva /eyelids Overall: cornea clear 09/09/2017 None Full Exam - General 1994 Eyes conjunctiva /eyelids Overall: eyelids normal 09/09/2017 None Full Exam - General 1994 Eyes pupils and irises Overall: pupils equal, round, reactive to light and accomodation 09/09/2017 None Full Exam - General 1994 Ears/Nose/Throat otoscopic exam Overall: external auditory canals clear 09/09/2017 None Full Exam - General 1994 Ears/Nose/Throat otoscopic exam Overall: tympanic membranes clear 09/09/2017 None Full Exam - General 1994 Ears/Nose/Throat lips/teeth/gingiva Overall: benign lips 09/09/2017 None Full Exam - General 1994 Ears/Nose/Throat oral cavity/pharynx/larynx Overall: no masses 09/09/2017 None Full Exam - General 1994 Respiratory auscultation Overall: breath sounds clear bilaterally 09/09/2017 None Full Exam - General 1994 Respiratory respiratory effort/rhythm Overall: no retractions 09/09/2017 None Full Exam - General 1994 Respiratory respiratory effort/rhythm Overall: normal rate 09/09/2017 None Full Exam - General 1994 Cardiovascular extremities Overall: no clubbing 09/09/2017 None Full Exam - General 1994 Cardiovascular auscultation of heart Overall: regular rate 09/09/2017 None Full Exam - General 1994 Cardiovascular auscultation of heart Overall: normal heart sounds 09/09/2017 None Full Exam - General 1994 Abdomen abdominal exam Overall: no tenderness 09/09/2017 None Full Exam - General 1994 Abdomen abdominal exam Overall: normal bowel sounds 09/09/2017 None Full Exam - General 1994 Abdomen abdominal exam Upper quadrant: no guarding 09/09/2017 left upper abdomen with PEG tube in place, c/d/i Full Exam - General 1994 Lymphatic neck nodes Overall: anterior cervical chain benign 09/09/2017 None Full Exam - General 1994 Lymphatic neck nodes Overall: posterior cervical chain benign 09/09/2017 None Full Exam - General 1994 Musculoskeletal digits and nails Nails: thickened 09/09/2017 and short nails on stubby fingers, contracture of fingers on left hand digits 4/5 more deforedmed than digits 3, 2 , 1 on left hand, right hand with normal movement Full Exam - General 1994 Musculoskeletal spine, ribs and pelvis Overall: spine benign 09/09/2017 None Full Exam - General 1994 Musculoskeletal spine, ribs and pelvis Overall: sacroiliac joint benign 09/09/2017 None Full Exam - General 1994 Musculoskeletal spine, ribs and pelvis Overall: good posture 09/09/2017 None Full Exam - General 1994 Musculoskeletal gait and station Station: kyphosis 09/09/2017 None Full Exam - General 1994 Musculoskeletal head and neck Overall: head atraumatic 09/09/2017 None Full Exam - General 1994 Musculoskeletal head and neck Cervical Spine: deformity 09/09/2017 None Full Exam - General 1994 Neurologic deep tendon reflexes Overall: deep tendon reflexes intact 09/09/2017 None Full Exam - General 1994 Neurologic cranial nerves Overall: crainial nerves 2 - 12 grossly intact 09/09/2017 None Full Exam - General 1994 Psychiatric orientation/consciousness Overall: oriented to person, place and time 09/09/2017 None Full Exam - General 1994 Psychiatric mood and affect Overall: normal mood and affect 09/09/2017 None Full Exam - General 1994 Constitutional general appearance Hygiene/Attention to Grooming: good hygiene 06/08/2017 None Full Exam - General 1994 Eyes conjunctiva /eyelids Overall: conjunctiva clear 06/08/2017 None Full Exam - General 1994 Eyes conjunctiva /eyelids Overall: cornea clear 06/08/2017 None Full Exam - General 1994 Eyes conjunctiva /eyelids Overall: eyelids normal 06/08/2017 None Full Exam - General 1994 Eyes pupils and irises Overall: pupils equal, round, reactive to light and accomodation 06/08/2017 None Full Exam - General 1994 Ears/Nose/Throat lips/teeth/gingiva Overall: benign lips 06/08/2017 None Full Exam - General 1994 Respiratory auscultation Overall: breath sounds clear bilaterally 06/08/2017 None Full Exam - General 1994 Respiratory respiratory effort/rhythm Overall: no retractions 06/08/2017 None Full Exam - General 1994 Respiratory respiratory effort/rhythm Overall: normal rate 06/08/2017 None Full Exam - General 1994 Cardiovascular extremities Overall: no clubbing 06/08/2017 None Full Exam - General 1994 Cardiovascular auscultation of heart Overall: regular rate 06/08/2017 None Full Exam - General 1994 Cardiovascular auscultation of heart Overall: normal heart sounds 06/08/2017 None Full Exam - General 1994 Abdomen abdominal exam Overall: no tenderness 06/08/2017 None Full Exam - General 1994 Abdomen abdominal exam Overall: normal bowel sounds 06/08/2017 None Full Exam - General 1994 Musculoskeletal gait and station Station: kyphosis 06/08/2017 None Full Exam - General 1994 Musculoskeletal head and neck Overall: head atraumatic 06/08/2017 None Full Exam - General 1994 Musculoskeletal head and neck Cervical Spine: deformity 06/08/2017 with contracture to left Full Exam - General 1994 Neurologic cranial nerves Overall: crainial nerves 2 - 12 grossly intact 06/08/2017 None Full Exam - General 1994 Psychiatric orientation/consciousness Overall: oriented to person, place and time 06/08/2017 None Full Exam - General 1994 Psychiatric mood and affect Overall: normal mood and affect 06/08/2017 None Full Exam - General 1994 Constitutional general appearance Overall: well developed 06/08/2017 None Full Exam - General 1994 Constitutional general appearance Overall: well nourished 06/08/2017 None Full Exam - General 1994 Ears/Nose/Throat otoscopic exam External auditory canal: partial cerumen occlusion 06/08/2017 None Full Exam - General 1994 Ears/Nose/Throat otoscopic exam Tympanic membrane: not visualized 06/08/2017 None Full Exam - General 1994 Ears/Nose/Throat oral cavity/pharynx/larynx Oral mucosa: moist 06/08/2017 None Full Exam - General 1994 Constitutional general appearance Development: well developed 04/15/2017 None Full Exam - General 1994 Constitutional general appearance Development: appears stated age 0104/15/2017 None Full Exam - General 1994 Constitutional general appearance Hygiene/Attention to Grooming: good hygiene 04/15/2017 None Full Exam - General 1994 Eyes conjunctiva /eyelids Overall: conjunctiva clear 04/15/2017 None Full Exam - General 1994 Eyes conjunctiva /eyelids Overall: cornea clear 04/15/2017 None Full Exam - General 1994 Eyes conjunctiva /eyelids Overall: eyelids normal 04/15/2017 None Full Exam - General 1994 Eyes pupils and irises Overall: pupils equal, round, reactive to light and accomodation 04/15/2017 None Full Exam - General 1994 Ears/Nose/Throat otoscopic exam Overall: external auditory canals clear 04/15/2017 None Full Exam - General 1994 Ears/Nose/Throat otoscopic exam Overall: tympanic membranes clear 04/15/2017 None Full Exam - General 1994 Ears/Nose/Throat lips/teeth/gingiva Overall: benign lips 04/15/2017 None Full Exam - General 1994 Ears/Nose/Throat oral cavity/pharynx/larynx Overall: no masses 04/15/2017 None Full Exam - General 1994 Respiratory auscultation Overall: breath sounds clear bilaterally 04/15/2017 None Full Exam - General 1994 Respiratory respiratory effort/rhythm Overall: no retractions 04/15/2017 None Full Exam - General 1994 Respiratory respiratory effort/rhythm Overall: normal rate 04/15/2017 None Full Exam - General 1994 Cardiovascular extremities Overall: no clubbing 04/15/2017 None Full Exam - General 1994 Cardiovascular auscultation of heart Overall: regular rate 04/15/2017 None Full Exam - General 1994 Cardiovascular auscultation of heart Overall: normal heart sounds 04/15/2017 None Full Exam - General 1994 Abdomen abdominal exam Overall: no tenderness 04/15/2017 None Full Exam - General 1994 Abdomen abdominal exam Overall: normal bowel sounds 04/15/2017 None Full Exam - General 1994 Abdomen abdominal exam Upper quadrant: no guarding 04/15/2017 left upper abdomen with PEG tube in place, c/d/i Full Exam - General 1994 Lymphatic neck nodes Overall: anterior cervical chain benign 04/15/2017 None Full Exam - General 1994 Lymphatic neck nodes Overall: posterior cervical chain benign 04/15/2017 None Full Exam - General 1994 Musculoskeletal digits and nails Nails: thickened 04/15/2017 and short nails on stubby fingers, contracture of fingers on left hand digits 4/5 more deforedmed than digits 3, 2 , 1 on left hand, right hand with normal movement Full Exam - General 1994 Musculoskeletal spine, ribs and pelvis Overall: spine benign 04/15/2017 None Full Exam - General 1994 Musculoskeletal spine, ribs and pelvis Overall: sacroiliac joint benign 04/15/2017 None Full Exam - General 1994 Musculoskeletal spine, ribs and pelvis Overall: good posture 04/15/2017 None Full Exam - General 1994 Musculoskeletal gait and station Station: kyphosis 04/15/2017 None Full Exam - General 1994 Musculoskeletal head and neck Overall: head atraumatic 04/15/2017 None Full Exam - General 1994 Musculoskeletal head and neck Cervical Spine: deformity 04/15/2017 None Full Exam - General 1994 Neurologic deep tendon reflexes Overall: deep tendon reflexes intact 04/15/2017 None Full Exam - General 1994 Neurologic cranial nerves Overall: crainial nerves 2 - 12 grossly intact 04/15/2017 None Full Exam - General 1994 Psychiatric orientation/consciousness Overall: oriented to person, place and time 04/15/2017 None Full Exam - General 1994 Psychiatric mood and affect Overall: normal mood and affect 04/15/2017 None Full Exam - General 1994 Constitutional general appearance Development: well developed 02/16/2017 None Full Exam - General 1994 Constitutional general appearance Development: appears stated age 1102/16/2017 None Full Exam - General 1994 Constitutional general appearance Hygiene/Attention to Grooming: good hygiene 02/16/2017 None Full Exam - General 1994 Eyes conjunctiva /eyelids Overall: conjunctiva clear 02/16/2017 None Full Exam - General 1994 Eyes conjunctiva /eyelids Overall: cornea clear 02/16/2017 None Full Exam - General 1994 Eyes conjunctiva /eyelids Overall: eyelids normal 02/16/2017 None Full Exam - General 1994 Eyes pupils and irises Overall: pupils equal, round, reactive to light and accomodation 02/16/2017 None Full Exam - General 1994 Ears/Nose/Throat otoscopic exam Overall: external auditory canals clear 02/16/2017 None Full Exam - General 1994 Ears/Nose/Throat otoscopic exam Overall: tympanic membranes clear 02/16/2017 None Full Exam - General 1994 Ears/Nose/Throat lips/teeth/gingiva Overall: benign lips 02/16/2017 None Full Exam - General 1994 Ears/Nose/Throat oral cavity/pharynx/larynx Overall: no masses 02/16/2017 None Full Exam - General 1994 Ears/Nose/Throat oral cavity/pharynx/larynx Oropharynx: thrush 02/16/2017 None Full Exam - General 1994 Respiratory auscultation Overall: breath sounds clear bilaterally 02/16/2017 None Full Exam - General 1994 Respiratory respiratory effort/rhythm Overall: no retractions 02/16/2017 None Full Exam - General 1994 Respiratory respiratory effort/rhythm Overall: normal rate 02/16/2017 None Full Exam - General 1994 Cardiovascular extremities Overall: no clubbing 02/16/2017 None Full Exam - General 1994 Cardiovascular auscultation of heart Overall: regular rate 02/16/2017 None Full Exam - General 1994 Cardiovascular auscultation of heart Overall: normal heart sounds 02/16/2017 None Full Exam - General 1994 Abdomen abdominal exam Overall: no tenderness 02/16/2017 None Full Exam - General 1994 Abdomen abdominal exam Overall: normal bowel sounds 02/16/2017 None Full Exam - General 1994 Abdomen abdominal exam Upper quadrant: no guarding 02/16/2017 left upper abdomen with PEG tube in place, c/d/i Full Exam - General 1994 Lymphatic neck nodes Overall: anterior cervical chain benign 02/16/2017 None Full Exam - General 1994 Lymphatic neck nodes Overall: posterior cervical chain benign 02/16/2017 None Full Exam - General 1994 Musculoskeletal digits and nails Nails: thickened 02/16/2017 and short nails on stubby fingers, contracture of fingers on left hand digits 4/5 more deforedmed than digits 3, 2 , 1 on left hand, right hand with normal movement Full Exam - General 1994 Musculoskeletal spine, ribs and pelvis Overall: spine benign 02/16/2017 None Full Exam - General 1994 Musculoskeletal spine, ribs and pelvis Overall: sacroiliac joint benign 02/16/2017 None Full Exam - General 1994 Musculoskeletal spine, ribs and pelvis Overall: good posture 02/16/2017 None Full Exam - General 1994 Musculoskeletal gait and station Station: kyphosis 02/16/2017 None Full Exam - General 1994 Musculoskeletal head and neck Overall: head atraumatic 02/16/2017 None Full Exam - General 1994 Musculoskeletal head and neck Cervical Spine: deformity 02/16/2017 with contracture to left and caseous material in fold of neck on left - cleansed with no open wounds on neck Full Exam - General 1994 Integument inspection of skin Overall: few scattered moles, no gross abnormalities 02/16/2017 None Full Exam - General 1994 Neurologic deep tendon reflexes Overall: deep tendon reflexes intact 02/16/2017 None Full Exam - General 1994 Neurologic cranial nerves Overall: crainial nerves 2 - 12 grossly intact 02/16/2017 None Full Exam - General 1994 Psychiatric orientation/consciousness Overall: oriented to person, place and time 02/16/2017 None Full Exam - General 1994 Psychiatric mood and affect Overall: normal mood and affect 02/16/2017 None Full Exam - General 1994 Eyes conjunctiva /eyelids Overall: conjunctiva clear 11/09/2016 None Full Exam - General 1994 Ears/Nose/Throat lips/teeth/gingiva Overall: benign lips 11/09/2016 None Full Exam - General 1994 Respiratory auscultation Overall: breath sounds clear bilaterally 11/09/2016 None Full Exam - General 1994 Respiratory respiratory effort/rhythm Overall: no retractions 11/09/2016 None Full Exam - General 1994 Respiratory respiratory effort/rhythm Overall: normal rate 11/09/2016 None Full Exam - General 1994 Abdomen abdominal exam Overall: no tenderness 11/09/2016 None Full Exam - General 1994 Abdomen abdominal exam Overall: normal bowel sounds 11/09/2016 None Full Exam - General 1994 Abdomen abdominal exam Upper quadrant: no guarding 11/09/2016 left upper abdomen with PEG tube in place, barrier cream noted - clean and intact Full Exam - General 1994 Musculoskeletal digits and nails Nails: thickened 11/09/2016 and short nails on stubby fingers, contracture of fingers on left hand digits 4/5 more deformed than digits 3, 2, 1 on left hand, right hand with normal movement Full Exam - General 1994 Musculoskeletal gait and station Station: kyphosis 11/09/2016 None Full Exam - General 1994 Musculoskeletal head and neck Overall: head atraumatic 11/09/2016 None Full Exam - General 1994 Musculoskeletal head and neck Cervical Spine: deformity 11/09/2016 with contracture to left Full Exam - General 1994 Neurologic cranial nerves Overall: crainial nerves 2 - 12 grossly intact 11/09/2016 None Full Exam - General 1994 Psychiatric orientation/consciousness Overall: oriented to person, place and time 11/09/2016 None Full Exam - General 1994 Psychiatric mood and affect Overall: normal mood and affect 11/09/2016 None Full Exam - General 1994 Constitutional general appearance Overall: well nourished 11/09/2016 None Full Exam - General 1994 Constitutional general appearance Overall: in no acute distress 11/09/2016 None Full Exam - General 1994 Constitutional general appearance Overall: well developed 11/09/2016 None Full Exam - General 1994 Respiratory auscultation Diffuse: diminished 11/09/2016 None Full Exam - General 1994 Cardiovascular auscultation of heart Rate: regular rate 11/09/2016 None Full Exam - General 1994 Cardiovascular auscultation of heart Rhythm: regular rhythm 11/09/2016 None Full Exam - General 1994 Constitutional general appearance Development: well developed 07/18/2015 None Full Exam - General 1994 Constitutional general appearance Development: appears stated age 0407/18/2015 None Full Exam - General 1994 Constitutional general appearance Hygiene/Attention to Grooming: good hygiene 07/18/2015 None Full Exam - General 1994 Eyes conjunctiva /eyelids Overall: conjunctiva clear 07/18/2015 None Full Exam - General 1994 Eyes conjunctiva /eyelids Overall: cornea clear 07/18/2015 None Full Exam - General 1994 Eyes conjunctiva /eyelids Overall: eyelids normal 07/18/2015 None Full Exam - General 1994 Eyes pupils and irises Overall: pupils equal, round, reactive to light and accomodation 07/18/2015 None Full Exam - General 1994 Ears/Nose/Throat otoscopic exam Overall: external auditory canals clear 07/18/2015 None Full Exam - General 1994 Ears/Nose/Throat otoscopic exam Overall: tympanic membranes clear 07/18/2015 None Full Exam - General 1994 Ears/Nose/Throat lips/teeth/gingiva Overall: benign lips 07/18/2015 None Full Exam - General 1994 Ears/Nose/Throat oral cavity/pharynx/larynx Overall: no masses 07/18/2015 None Full Exam - General 1994 Respiratory auscultation Overall: breath sounds clear bilaterally 07/18/2015 None Full Exam - General 1994 Respiratory respiratory effort/rhythm Overall: no retractions 07/18/2015 None Full Exam - General 1994 Respiratory respiratory effort/rhythm Overall: normal rate 07/18/2015 None Full Exam - General 1994 Cardiovascular extremities Overall: no clubbing 07/18/2015 None Full Exam - General 1994 Cardiovascular auscultation of heart Overall: regular rate 07/18/2015 None Full Exam - General 1994 Cardiovascular auscultation of heart Overall: normal heart sounds 07/18/2015 None Full Exam - General 1994 Abdomen abdominal exam Overall: no tenderness 07/18/2015 None Full Exam - General 1994 Abdomen abdominal exam Overall: normal bowel sounds 07/18/2015 None Full Exam - General 1994 Abdomen abdominal exam Upper quadrant: no guarding 07/18/2015 left upper abdomen with PEG tube in place, c/d/i Full Exam - General 1994 Lymphatic neck nodes Overall: anterior cervical chain benign 07/18/2015 None Full Exam - General 1994 Lymphatic neck nodes Overall: posterior cervical chain benign 07/18/2015 None Full Exam - General 1994 Musculoskeletal digits and nails Nails: thickened 07/18/2015 and short nails on stubby fingers, contracture of fingers on left hand digits 4/5 more deformed than digits 3, 2, 1 on left hand, right hand with normal movement Full Exam - General 1994 Musculoskeletal spine, ribs and pelvis Overall: spine benign 07/18/2015 None Full Exam - General 1994 Musculoskeletal spine, ribs and pelvis Overall: sacroiliac joint benign 07/18/2015 None Full Exam - General 1994 Musculoskeletal spine, ribs and pelvis Overall: good posture 07/18/2015 None Full Exam - General 1994 Musculoskeletal gait and station Station: kyphosis 07/18/2015 None Full Exam - General 1994 Musculoskeletal head and neck Overall: head atraumatic 07/18/2015 None Full Exam - General 1994 Musculoskeletal head and neck Cervical Spine: deformity 07/18/2015 with contracture to left Full Exam - General 1994 Integument inspection of skin Overall: few scattered moles, no gross abnormalities 07/18/2015 None Full Exam - General 1994 Neurologic deep tendon reflexes Overall: deep tendon reflexes intact 07/18/2015 None Full Exam - General 1994 Neurologic cranial nerves Overall: crainial nerves 2 - 12 grossly intact 07/18/2015 None Full Exam - General 1994 Psychiatric orientation/consciousness Overall: oriented to person, place and time 07/18/2015 None Full Exam - General 1994 Psychiatric mood and affect Overall: normal mood and affect 07/18/2015 None Full Exam - General 1994 Constitutional general appearance Development: well developed 06/17/2015 None Full Exam - General 1994 Constitutional general appearance Development: appears stated age 0306/17/2015 None Full Exam - General 1994 Constitutional general appearance Hygiene/Attention to Grooming: good hygiene 06/17/2015 None Full Exam - General 1994 Eyes conjunctiva /eyelids Overall: conjunctiva clear 06/17/2015 None Full Exam - General 1994 Eyes conjunctiva /eyelids Overall: cornea clear 06/17/2015 None Full Exam - General 1994 Eyes conjunctiva /eyelids Overall: eyelids normal 06/17/2015 None Full Exam - General 1994 Eyes pupils and irises Overall: pupils equal, round, reactive to light and accomodation 06/17/2015 None Full Exam - General 1994 Ears/Nose/Throat otoscopic exam Overall: external auditory canals clear 06/17/2015 None Full Exam - General 1994 Ears/Nose/Throat otoscopic exam Overall: tympanic membranes clear 06/17/2015 None Full Exam - General 1994 Ears/Nose/Throat lips/teeth/gingiva Overall: benign lips 06/17/2015 None Full Exam - General 1994 Ears/Nose/Throat oral cavity/pharynx/larynx Overall: no masses 06/17/2015 None Full Exam - General 1994 Respiratory auscultation Overall: breath sounds clear bilaterally 06/17/2015 None Full Exam - General 1994 Respiratory respiratory effort/rhythm Overall: no retractions 06/17/2015 None Full Exam - General 1994 Respiratory respiratory effort/rhythm Overall: normal rate 06/17/2015 None Full Exam - General 1994 Cardiovascular extremities Overall: no clubbing 06/17/2015 None Full Exam - General 1994 Cardiovascular auscultation of heart Overall: regular rate 06/17/2015 None Full Exam - General 1994 Cardiovascular auscultation of heart Overall: normal heart sounds 06/17/2015 None Full Exam - General 1994 Abdomen abdominal exam Overall: no tenderness 06/17/2015 None Full Exam - General 1994 Abdomen abdominal exam Overall: normal bowel sounds 06/17/2015 None Full Exam - General 1994 Lymphatic neck nodes Overall: anterior cervical chain benign 06/17/2015 None Full Exam - General 1994 Lymphatic neck nodes Overall: posterior cervical chain benign 06/17/2015 None Full Exam - General 1994 Musculoskeletal spine, ribs and pelvis Overall: spine benign 06/17/2015 None Full Exam - General 1994 Musculoskeletal spine, ribs and pelvis Overall: sacroiliac joint benign 06/17/2015 None Full Exam - General 1994 Musculoskeletal spine, ribs and pelvis Overall: good posture 06/17/2015 None Full Exam - General 1994 Musculoskeletal head and neck Overall: head atraumatic 06/17/2015 None Full Exam - General 1994 Integument inspection of skin Overall: few scattered moles, no gross abnormalities 06/17/2015 None Full Exam - General 1994 Neurologic deep tendon reflexes Overall: deep tendon reflexes intact 06/17/2015 None Full Exam - General 1994 Neurologic cranial nerves Overall: crainial nerves 2 - 12 grossly intact 06/17/2015 None Full Exam - General 1994 Psychiatric orientation/consciousness Overall: oriented to person, place and time 06/17/2015 None Full Exam - General 1994 Psychiatric mood and affect Overall: normal mood and affect 06/17/2015 None Full Exam - General 1994 Ears/Nose/Throat oral cavity/pharynx/larynx Oropharynx: thrush 06/17/2015 None Full Exam - General 1994 Abdomen abdominal exam Upper quadrant: no guarding 06/17/2015 left upper abdomen with PEG tube in place, c/d/i Full Exam - General 1994 Musculoskeletal digits and nails Nails: thickened 06/17/2015 and short nails on stubby fingers, contracture of fingers on left hand digits 4/5 more deforedmed than digits 3, 2 , 1 on left hand, right hand with normal movement Full Exam - General 1994 Musculoskeletal head and neck Cervical Spine: deformity 06/17/2015 with contracture to left and caseous material in fold of neck on left - cleansed with no open wounds on neck Full Exam - General 1994 Musculoskeletal gait and station Station: kyphosis 06/17/2015 None Procedures Procedure Codes Date PRESCRIP TRANSMIT VIA ERX SY CPT-4: G8553 09/09/2017 PRESCRIP TRANSMIT VIA ERX SY CPT-4: G8553 06/17/2015 Vital Signs Date Vital 2017 Blood Pressure 1: 110/60 Code : 8480-6 Heart Rate 1: 64 bpm Height: SpO2: 94% Weight: 09/09/2017 Blood Pressure 1: 118/62 Code : 8480-6 Heart Rate 1: 67 bpm Height: SpO2: 96% Weight: 06/08/2017 Blood Pressure 1: 124/76 Code : 8480-6 Heart Rate 1: 71 bpm Height: SpO2: 98% Weight: 04/15/2017 Blood Pressure 1: 124/64 Code : 8480-6 Heart Rate 1: 71 bpm Height: SpO2: 99% Weight: 02/16/2017 Blood Pressure 1: 128/76 Code : 8480-6 Heart Rate 1: 71 bpm Height: SpO2: 98% Weight: 11/09/2016 Blood Pressure 1: 120/64 Code : 8480-6 Heart Rate 1: 75 bpm Height: SpO2: 99% Weight: 07/18/2015 Blood Pressure 1: 128/86 Code : 8480-6 BMI: 31.4 Code : 94443-1 Heart Rate 1 : 72 bpm Height: 5'1" Weight: 166 lbs 06/17/2015 Blood Pressure 1: 110/78 Code : 8480-6 BMI: 33.3 Code : 56839-3 Heart Rate 1 : 74 bpm Height: 5'1" SpO2: 92% Weight: 176 lbs Functional Status No Functional Status data History of Present Illness Symptom Name Status Result Effective Date Notes hypertension Quality primary hypertension 2017 None hypertension Quality stable 2017 None hypertension Onset and Resolution ongoing 2017 None hypertension Onset of Symptom during adulthood 2017 None hypertension Alleviating Factors medication 2017 None diabetes mellitus Quality insulin dependent 2017 None diabetes mellitus Alleviating Factors insulin 2017 None diabetes mellitus Exacerbating Factors diet 2017 None hypertension Blood Pressure Values pt checking blood pressure - see scanned document 2017 None hypertension Severity not consistently severe symptoms, the symptoms fluctuate from no symptoms to anxiety and headaches 2017 None hypertension Triggers no known associated factors 2017 None pain Onset and Resolution ongoing 09/09/2017 None hypertension Quality primary hypertension 09/09/2017 None hypertension Quality stable 09/09/2017 None hypertension Onset and Resolution ongoing 09/09/2017 None hypertension Onset of Symptom during adulthood 09/09/2017 None hypertension Alleviating Factors medication 09/09/2017 None diabetes mellitus Quality insulin dependent 09/09/2017 None diabetes mellitus Alleviating Factors insulin 09/09/2017 None diabetes mellitus Exacerbating Factors diet 09/09/2017 None hypertension Quality primary hypertension 06/08/2017 None hypertension Quality stable 06/08/2017 None hypertension Onset and Resolution ongoing 06/08/2017 None hypertension Onset of Symptom during adulthood 06/08/2017 None hypertension Alleviating Factors medication 06/08/2017 None diabetes mellitus Quality insulin dependent 06/08/2017 None diabetes mellitus Alleviating Factors insulin 06/08/2017 None diabetes mellitus Exacerbating Factors diet 06/08/2017 None pain Location-Major on the upper body 06/08/2017 None pain Location-Major on the lower body 06/08/2017 None pain Onset and Resolution ongoing 06/08/2017 None hypertension Quality primary hypertension 04/15/2017 None hypertension Quality stable 04/15/2017 None hypertension Onset and Resolution ongoing 04/15/2017 None hypertension Onset of Symptom during adulthood 04/15/2017 None hypertension Alleviating Factors medication 04/15/2017 None diabetes mellitus Quality insulin dependent 04/15/2017 None diabetes mellitus Alleviating Factors insulin 04/15/2017 None diabetes mellitus Exacerbating Factors diet 04/15/2017 None ~generic Quality chronic 02/16/2017 None ~generic Pertinent Findings Denies fever 02/16/2017 None hypertension Quality chronic 02/16/2017 None hypertension Onset and Resolution ongoing 02/16/2017 None hypertension Onset of Symptom during adulthood 02/16/2017 None hypertension Severity mild 02/16/2017 None hypertension Significant Medical Conditions cardiac disease 02/16/2017 None hypertension Triggers no known associated factors 02/16/2017 None hypertension Alleviating Factors medication 02/16/2017 None ~generic Quality chronic 11/09/2016 None ~generic Pertinent Findings Denies fever 11/09/2016 None earache Location right ear 07/18/2015 None earache Quality acute 07/18/2015 None pain Location-Major in a generalized area 07/18/2015 None pain Location-Major on the neck 07/18/2015 None pain Location-Major on the back 07/18/2015 None pain Quality chronic 07/18/2015 None pain Quality constant 07/18/2015 None pain Onset and Resolution ongoing 07/18/2015 None pain Pertinent Findings Denies dizziness 07/18/2015 None pain Pertinent Findings Denies nausea 07/18/2015 None pain Pertinent Findings pain 07/18/2015 None hypertension Quality chronic 06/17/2015 None hypertension Onset and Resolution ongoing 06/17/2015 None hypertension Onset of Symptom during adulthood 06/17/2015 None hypertension Severity mild 06/17/2015 None hypertension Triggers no known associated factors 06/17/2015 None hypertension Alleviating Factors medication 06/17/2015 None hypertension Significant Medical Conditions cardiac disease 06/17/2015 None Advance Directives Advance Directives Present Encounters Encounter Performer Location Codes Date () 16668 EST. PATIENT, LEVEL IV Diagnosis: Essential (primary) hypertension[ICD10: I10] Diagnosis: Type 2 diabetes mellitus without complications[ICD10: E11.9] Carlyn Everett MD, [facility] CPT-4: 31405 2017 ([id number]) 55391 EST. PATIENT, LEVEL IV Diagnosis: Type 2 diabetes mellitus with hyperglycemia[ICD10: E11.65] Diagnosis: Essential (primary) hypertension[ICD10: I10] Diagnosis: Pain in left shoulder[ICD10: M25.512] Diagnosis: Pain in right shoulder[ICD10: M25.511] Diagnosis: Pain in left knee[ICD10: M25.562] Diagnosis: Pain in right knee[ICD10: M25.561] Vonda Everett MD, [facility] CPT-4: 52606 09/09/2017 04756 EST. PATIENT, LEVEL IV Diagnosis: Essential (primary) hypertension[ICD10: I10] Diagnosis: Type 2 diabetes mellitus with hyperglycemia[ICD10: E11.65] Diagnosis: Low back pain[ICD10: M54.5] Sunitha Everett MD, [facility] CPT-4 : 57327 06/08/2017 ([id number]) 70170 EST. PATIENT, LEVEL IV Diagnosis: Essential (primary) hypertension[ICD10: I10] Diagnosis: Type 2 diabetes mellitus with hyperglycemia[ICD10: E11.65] Diagnosis: Low back pain[ICD10: M54.5] Sunitha Everett MD, [facility] CPT-4 : 19004 04/15/2017 10421 19269 EST. PATIENT, LEVEL IV Diagnosis: Essential (primary) hypertension[ICD10: I10] Diagnosis: Type 2 diabetes mellitus with hyperglycemia[ICD10: E11.65] Diagnosis: Low back pain[ICD10: M54.5] Vonda Everett MD, [facility] CPT- 4: 06292 02/16/2017 43659 EST. PATIENT, LEVEL III Diagnosis: Other complications of gastrostomy[ICD10: K94.29] Sunitha Everett MD, [facility] CPT-4: 49843 11/09/2016 ([id number]) 37087 EST. 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 Pt has been encouraged to exercise daily. The pt has been advised to call the office if there are any acute concerns about change in blood pressure readings at home. Diabetes Mellitus - controlled - per recent FSBS reports. I have recommended for the patient to have follow up labs prior to the next office visit. The patient has been instructed to continue with current medications as previously directed, continue with regular FSBS monitoring to assure continued control of diabetes. Pt to call for any acute concerns, complaints, or if the blood glucose readings are starting to become less controlled. DECREASE LEVEMIR TO 8 UNITS AT HS 2017 Appointment: Carlyn Higginbotham WPtel: [address] [place], [place] [phone] (15 min) Moderate 2017 Patient Education: Patient Medication Summary Completed 2017 Visit Plan: Hypertension - too well controlled - decrease lisinopril due to lower blood pressure readings. Pt has been encouraged to exercise daily. The pt has been advised to call the office if there are any acute concerns about change in blood pressure readings at home. Diabetes Mellitus - controlled - per recent FSBS reports. I have recommended for the patient to have follow up labs prior to the next office visit. The patient has been instructed to continue with current medications as previously directed, continue with regular FSBS monitoring to assure continued control of diabetes. Pt to call for any acute concerns, complaints, or if the blood glucose readings are starting to become less controlled. Joint pain - increase dose of duragesic from 150mcg to 175mcg. 09/09/2017 Appointment: [facility] [phone] [facility] (15 min) Moderate 09/09/2017 Patient Education: Patient Medication Summary Completed 09/09/2017 Visit Plan: Hypertension - well controlled - continue with current medications, continue with no added salt diet. Pt has been encouraged to exercise daily. The pt has been advised to call the office if there are any acute concerns about change in blood pressure readings at home. Diabetes Mellitus - controlled - per recent FSBS reports. I have recommended for the patient to have follow up labs prior to the next office visit. The patient has been instructed to continue with current medications as previously directed, continue with regular FSBS monitoring to assure continued control of diabetes. Pt to call for any acute concerns, complaints, or if the blood glucose readings are starting to become less controlled. Chronic pain - pt currently on fentanyl and PRN pain medications - will have intermediate fax over PRN medication administration record. 06/08/2017 Appointment: [facility] [phone] [facility] [place] (30 min) Complex 06/08/2017 Patient Education: Patient Medication Summary Completed 06/08/2017 Visit Plan: Hypertension - well controlled - continue with current medications, continue with no added salt diet. Pt has been encouraged to exercise daily. The pt has been advised to call the office if there are any acute concerns about change in blood pressure readings at home. Diabetes Mellitus - controlled - per recent FSBS reports. I have recommended for the patient to have follow up labs prior to the next office visit. The patient has been instructed to continue with current medications as previously directed, continue with regular FSBS monitoring to assure continued control of diabetes. Pt to call for any acute concerns, complaints, or if the blood glucose readings are starting to become less controlled. Chronic Pain Syndrome - pt has chronic pain - has been maintained on current medications, has not sought out other medications, only uses PRN pain medications as directed, and understands the consequences of over-medication. 04/15/2017 Visit Plan: Hypertension - well controlled - continue with current medications, continue with no added salt diet. Pt has been encouraged to exercise daily. The pt has been advised to call the office if there are any acute concerns about change in blood pressure readings at home. Diabetes Mellitus - controlled - per recent FSBS reports. I have recommended for the patient to have follow up labs prior to the next office visit. The patient has been instructed to continue with current medications as previously directed, continue with regular FSBS monitoring to assure continued control of diabetes. Pt to call for any acute concerns, complaints, or if the blood glucose readings are starting to become less controlled. Chronic Pain Syndrome - pt has chronic pain - has been maintained on current medications, has not sought out other medications, only uses PRN pain medications as directed, and understands the consequences of over-medication. 04/15/2017 Appointment: Sunitha Patel WPtel: [facility] (30 min) [facility] 04/15/2017 Patient Education: Patient Medication Summary Completed 04/15/2017 Visit Plan: Hypertension - well controlled - continue with current medications, continue with no added salt diet. Pt has been encouraged to exercise daily. The pt has been advised to call the office if there are any acute concerns about change in blood pressure readings at home. Diabetes Mellitus - controlled - per recent FSBS reports. I have recommended for the patient to have follow up labs prior to the next office visit. The patient has been instructed to continue with current medications as previously directed, continue with regular FSBS monitoring to assure continued control of diabetes. Pt to call for any acute concerns, complaints, or if the blood glucose readings are starting to become less controlled. Chronic pain - refilled fentanyl and hydrocodone today. 02/16/2017 Appointment: [facility] [phone] [facility] (15 min) Moderate 02/16/2017 Patient Education: Patient Medication Summary Completed 02/16/2017 Patient Education: Hypertension Completed 02/16/2017 Referral: Jorge Luis Carroll she will be called with appt time and date Initiated Visit Plan: PEG tube - tube has not been replaced in some time, some mild irritation noted around the tube - will refer to surgeon for PEG tube replacement. Pt/family is to notify clinic with any changes, questions , or concerns. 11/09/2016 Appointment: Sunitha Patel WPtel: [phone] [facility] (30 min) Complex 11/09/2016 Patient Education: Patient Medication Summary Completed 11/09/2016 Care Plan: Referral Order SNOMED-CT : [id number] Pending 11/09/2016 Patient Education: Patient Medication Summary Completed 09/17/2016 Care Plan: Urine Culture Pending 09/17/2016 Visit Plan: Hypertension - well controlled - continue with current medications, continue with no added salt diet. Pt has been encouraged to exercise daily. The pt has been advised to call the office if there are any acute concerns about change in blood pressure readings at home. Dysphagia-on tube feedings-weight loss of 10# in 1 month-Dr Everett in to evaluate patient- add 1 scoop of protein powder to 2 feedings/day. Follow up weight in 1 month Neck [id number]-Lgid PT focus neck/upper body Right earache-cerumen removed with water pick today in the office 07/18/2015 Appointment: (30 min) Complex 07/18/2015 Patient Education: Patient Medication Summary Completed 07/18/2015 Patient Education: Obesity Completed 07/18/2015 Patient Education: .Cervicalgia Neck Pain Completed 07/18/2015 [facility] [address] [facility] Referral Completed 06/25/2015 Visit Plan: Hypertension - well controlled - continue with current medications, continue with no added salt diet. Pt has been encouraged to exercise daily. The pt has been advised to call the office if there are any acute concerns about change in blood pressure readings at home. Hyperlipidemia - pt has been counseled about appropriate diet, exercise, and need for low fat food choices. I have discussed the need for the patient to take medications as prescribed. If the patient has negative side effects from the medication, they are to CALL the office and not abruptly discontinue the medication without discussion with a practitioner in the office. We will check labs in 3-6 months for follow up on the patient's chronic medical problem and to assure normal liver response to medications. [facility] for post stroke - left sided weakness, neck stiffness, upper extremity weakness Diabetes Mellitus - controlled - per family report - check labs this week, get report from [facility]. I spent over an hour with the patient in direct contact. 06/17/2015 Appointment: Vonda Everett WPtel: [phone] [facility] New Patient 06/17/2015 Patient Education: Patient Medication Summary Completed 06/17/2015 Patient Education: Obesity Completed 06/17/2015 Patient Education: Hypertension Completed 06/17/2015 Care Plan: Referral Order SNOMED-CT : [id number] Ordered 06/17/2015 Referral: Jorge Luis Carroll Referral Initiated Referral: [facility] [phone] [facility] Referral Appointment Requested Instructions Comment . Hypertension - well controlled - continue with current medications, continue with no added salt diet. Pt has been encouraged to exercise daily. The pt has been advised to call the office if there are any acute concerns about change in blood pressure readings at home. Diabetes Mellitus - controlled - per recent FSBS reports. I have recommended for the patient to have follow up labs prior to the next office visit. The patient has been instructed to continue with current medications as previously directed, continue with regular FSBS monitoring to assure continued control of diabetes. Pt to call for any acute concerns, complaints, or if the blood glucose readings are starting to become less controlled. DECREASE LEVEMIR TO 8 UNITS AT HS . Hypertension - well controlled - continue with current medications, continue with no added salt diet. Pt has been encouraged to exercise daily. The pt has been advised to call the office if there are any acute concerns about change in blood pressure readings at home. Hyperlipidemia - pt has been counseled about appropriate diet, exercise, and need for low fat food choices. I have discussed the need for the patient to take medications as prescribed. If the patient has negative side effects from the medication, they are to CALL the office and not abruptly discontinue the medication without discussion with a practitioner in the office. We will check labs in 3-6 months for follow up on the patient's chronic medical problem and to assure normal liver response to medications. referral to [facility] for post stroke - left sided weakness, neck stiffness, upper extremity weakness Diabetes Mellitus - controlled - per family report - check labs this week, get report from and [facility]. I spent over an hour with the patient in direct contact. . PEG tube - tube has not been replaced in some time, some mild irritation noted around the tube - will refer to surgeon for PEG tube replacement. Pt/family is to notify clinic with any changes, questions, or concerns. Add 1 scoop of whey protein from [facility] to 2 feedings per day . Hypertension - well controlled - continue with current medications, continue with no added salt diet. Pt has been encouraged to exercise daily. The pt has been advised to call the office if there are any acute concerns about change in blood pressure readings at home. Dysphagia-on tube feedings-weight loss of 10# in 1 month-Dr Everett in to evaluate patient-add 1 scoop of protein powder to 2 feedings/day. Follow up weight in 1 month Neck [id number]-Etdg PT focus neck/upper body Right earache-cerumen removed with water pick today in the office . Hypertension - too well controlled - decrease lisinopril due to lower blood pressure readings. Pt has been encouraged to exercise daily. The pt has been advised to call the office if there are any acute concerns about change in blood pressure readings at home. Diabetes Mellitus - controlled - per recent FSBS reports. I have recommended for the patient to have follow up labs prior to the next office visit. The patient has been instructed to continue with current medications as previously directed, continue with regular FSBS monitoring to assure continued control of diabetes. Pt to call for any acute concerns, complaints, or if the blood glucose readings are starting to become less controlled. Joint pain - increase dose of duragesic from 150mcg to 175mcg. . Hypertension - well controlled - continue with current medications, continue with no added salt diet. Pt has been encouraged to exercise daily. The pt has been advised to call the office if there are any acute concerns about change in blood pressure readings at home. Diabetes Mellitus - controlled - per recent FSBS reports. I have recommended for the patient to have follow up labs prior to the next office visit. The patient has been instructed to continue with current medications as previously directed, continue with regular FSBS monitoring to assure continued control of diabetes. Pt to call for any acute concerns, complaints, or if the blood glucose readings are starting to become less controlled. Chronic Pain Syndrome - pt has chronic pain - has been maintained on current medications, has not sought out other medications, only uses PRN pain medications as directed, and understands the consequences of over-medication. . Hypertension - well controlled - continue with current medications, continue with no added salt diet. Pt has been encouraged to exercise daily. The pt has been advised to call the office if there are any acute concerns about change in blood pressure readings at home. Diabetes Mellitus - controlled - per recent FSBS reports. I have recommended for the patient to have follow up labs prior to the next office visit. The patient has been instructed to continue with current medications as previously directed, continue with regular FSBS monitoring to assure continued control of diabetes. Pt to call for any acute concerns, complaints, or if the blood glucose readings are starting to become less controlled. Chronic Pain Syndrome - pt has chronic pain - has been maintained on current medications, has not sought out other medications, only uses PRN pain medications as directed, and understands the consequences of over-medication. . Hypertension - well controlled - continue with current medications, continue with no added salt diet. Pt has been encouraged to exercise daily. The pt has been advised to call the office if there are any acute concerns about change in blood pressure readings at home. Diabetes Mellitus - controlled - per recent FSBS reports. I have recommended for the patient to have follow up labs prior to the next office visit. The patient has been instructed to continue with current medications as previously directed, continue with regular FSBS monitoring to assure continued control of diabetes. Pt to call for any acute concerns, complaints, or if the blood glucose readings are starting to become less controlled. Chronic pain - pt currently on fentanyl and PRN pain medications - will have intermediate fax over PRN medication administration record. . Hypertension - well controlled - continue with current medications, continue with no added salt diet. Pt has been encouraged to exercise daily. The pt has been advised to call the office if there are any acute concerns about change in blood pressure readings at home. Diabetes Mellitus - controlled - per recent FSBS reports. I have recommended for the patient to have follow up labs prior to the next office visit. The patient has been instructed to continue with current medications as previously directed, continue with regular FSBS monitoring to assure continued control of diabetes. Pt to call for any acute concerns, complaints, or if the blood glucose readings are starting to become less controlled. Chronic pain - refilled fentanyl and hydrocodone today.
--- OUTSIDE RECORDS SUMMARY | 2017-12-16 14:20 | XMS REPORT | CCD ---
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 Name Role Phone PP Unavailable CCM Unavailable Summary Purpose Interface Exchange Insurance Providers Payer name Policy type / Coverage type Covered constitution party ID Effective Begin Date Effective End Date WPS Medicare Part B Medicare Part B [id number] Unknown Unknown [employer] Care Home Life Insurance Medicare Part B [id number] Unknown Unknown Family history Father Diagnosis Age At Onset Arthritis Unknown Hypertension Unknown Mother Diagnosis Age At Onset Diabetes mellitus Type 2 Unknown Depression Unknown Arthritis Unknown Stroke Unknown Hypertension Unknown Sister Diagnosis Age At Onset Colon cancer Unknown Social History Social History Element Codes Description Effective Dates Living arrangements Unknown [facility] 04/15/2017 Marital status Unknown Anothony 06/17/2015 Number of children Unknown 3 06/17/2015 Employment Unknown Retired 06/17/[address]: 2525281 Quit over 10 years ago 15+ 06/17/[address]: 553105465 Never drinks alcohol 06/17/2015 Allergies, Adverse Reactions, [...] Start Date Stop Date Status Fill Instructions hydrocodone 10 mg-acetaminophen 325 mg tablet RxNorm: 375756 2 Tablet(s) PO scheduled TID and 1 tab q 4 as needed 11/09/2017 No Stop Date Active Not to exceed 3gm/24hr acetaminophen Levemir FlexTouch U-100 Insulin 100 unit/mL (3 mL) subcutaneous pen RxNorm: 349659 8 Unit(s) SQ QHS 11/09/2017 No Stop Date Active fentanyl 100 mcg/hr transdermal patch RxNorm: 525888 1 Patch TD Q72H 2017 12/07/2017 Active hyoscyamine 0.125 mg disintegrating tablet RxNorm: 1652004 1-2 Tablet(s) PO Q8 as needed 11/03/2017 No Stop Date Active carvedilol 3.125 mg tablet RxNorm: 450457 GIVE 1 TABLET VIA PEG TUBE 2 TIMES A DAY 10/22/2017 01/19/2018 Active Generic For:COREG 3.125MG 10/22/2017 9:23:30 AM hydrocodone 10 mg-acetaminophen 325 mg tablet RxNorm: 765276 2 Tablet(s) PO scheduled TID and 1 tab q 4 as needed 10/22/2017 2017 Inactive Not to exceed 3gm/24hr acetaminophen Duragesic 75 mcg/hr transdermal patch RxNorm: 735518 1 Patch TD Q72H 10/20/2017 No Stop Date Active fentanyl 100 mcg/hr transdermal patch RxNorm: 178486 1 Patch TD Q72H 10/20/2017 11/07/2017 Inactive lorazepam 0.5 mg tablet RxNorm: 925330 1 Tablet(s) PO BID and 1 tab q 6 hours prn 10/18/2017 No Stop Date Active baclofen 10 mg tablet RxNorm: 997873 TAKE 1 TABLET THREE TIMES DAILY VIA STOMACH TUBE 10/07/2017 03/05/2018 Active 10/07/2017 5:36:15 PM 10/07/2017 5:36:13 PM N O T I C E Last quantity doesn't match original quantity cranberry extract 500 mg tablet RxNorm: 5171233 1 Tablet(s) PO QAM 10/04/2017 01/31/2018 Active Cipro 500 mg tablet RxNorm: 098243 1 Tablet(s) PO BID 201710/03/2017 Inactive dc keflex hydrocodone 10 mg-acetaminophen 325 mg tablet RxNorm: 260334 2 Tablet(s) PO scheduled TID as needed 10/04/20172017 Inactive Not to exceed 3gm/24hr acetaminophen cranberry extract 500 mg tablet RxNorm: 0212773 1 Tablet(s) PO QAM 10/04/2017 10/03/2017 Inactive Cipro 500 mg tablet RxNorm: 341950 1 Tablet(s) PO BID 201710/10/2017 Inactive dc keflex Duragesic 75 mcg/hr transdermal patch RxNorm: 876727 1 Patch TD Q72H 09/20/2017 10/19/2017 Inactive fentanyl 100 mcg/hr transdermal patch RxNorm: 912771 1 Patch TD Q72H 09/20/2017 10/19/2017 Inactive hyoscyamine 0.125 mg disintegrating tablet RxNorm: 4453506 1 Tablet(s) PO TID and 1 Tablet Q4H prn increased secretions 09/15/2017 11/02/2017 Inactive hydrocodone 10 mg-acetaminophen 325 mg tablet RxNorm: 045360 2 Tablet(s) PO scheduled TID and 1-2 Tabs Q4H PRN pain 09/15/2017 10/03/2017 Inactive Not to exceed 3gm/24hr acetaminophen lorazepam 0.5 mg tablet RxNorm: 063983 1 Tablet(s) PO BID 09/1510/17/2017 Inactive Lexapro 10 mg tablet RxNorm: 925519 1 Tablet(s) PO daily 201709/14/2017 Inactive lisinopril 10 mg tablet RxNorm: 841457 1 Tablet(s) PO daily 06/05/2018 Active Levemir FlexTouch U-100 Insulin 100 unit/mL (3 mL) subcutaneous pen RxNorm: 744380 10 Unit(s) daily 09/09/201709/15 Inactive Duragesic 75 mcg/hr transdermal patch RxNorm: 047814 1 Patch TD Q72H 09/09/2017 09/19/2017 Inactive nystatin 100,000 unit/gram topical cream RxNorm: 632520 1 Gram(s) TOP TID until healed to gaulding 09/06/2017 01/03/2018 Active nystatin 100,000 unit/gram topical cream RxNorm: 124781 1 Gram(s) TOP TID until healed to gaulding 09/06/2017 09/05/2017 Inactive hydrocodone 10 mg-acetaminophen 325 mg tablet RxNorm: 361969 2 Tablet(s) PO scheduled TID as needed 08/31/20172017 Inactive Not to exceed 3gm/24hr acetaminophen fentanyl 100 mcg/hr transdermal patch RxNorm: 834704 1 Patch TD Q72H 08/24/2017 09/19/2017 Inactive fentanyl 50 mcg/hr transdermal patch RxNorm: 957930 1 Patch TD Q72H 08/24/2017 09/08/2017 Inactive fentanyl 25 mcg/hr transdermal patch RxNorm: 384025 1 Patch TD Q72H 08/24/2017 08/24/2017 Inactive hyoscyamine 0.125 mg disintegrating tablet RxNorm: 7293613 Tablet(s) 1-2 Tablet(s ) PO Q8 as needed 08/23/2017 09/14/2017 Inactive hydrocodone 10 mg-acetaminophen 325 mg tablet RxNorm: 104869 1 Tablet(s) PO scheduled TID et Q6 hours as needed 08/18/2017 08/30/2017 Inactive Not to exceed 3gm/24hr acetaminophen hydrochlorothiazide 25 mg tablet RxNorm: 752905 GIVE 1 TABLET VIA PEG TUBE ONCE DAILY 08/17/2017 02/12/2018 Active Generic For:HYDRODIURIL 25 MG TABLET 2017 9:01:54 AM08/11/2017 10:12:00 AM lorazepam 0.5 mg tablet RxNorm: 848316 1/2 Tablet(s) PO BID 09/14/2017 Inactive fentanyl 100 mcg/hr transdermal patch RxNorm: 839230 1 Patch TD Q72H 07/26/2017 08/23/2017 Inactive fentanyl 25 mcg/hr transdermal patch RxNorm: 529021 1 Patch TD Q72H 07/26/2017 08/23/2017 Inactive hydrocodone 10 mg-acetaminophen 325 mg tablet RxNorm: 595700 1 Tablet(s) PO scheduled TID et Q6 hours as needed 07/16/2017 08/14/2017 Inactive Not to exceed 3gm/24hr acetaminophen hyoscyamine 0.125 mg disintegrating tablet RxNorm: 3275342 Tablet(s) 1-2 Tablet(s ) PO Q8 as needed 07/13/2017 08/01/2017 Inactive baclofen 10 mg tablet RxNorm: 877946 TAKE 1 TABLET THREE TIMES DAILY VIA STOMACH TUBE 07/12/2017 10/06/2017 Inactive 07/12/2017 9:04:08 AM N O T I C E Last quantity doesn't match original quantity lorazepam 0.5 mg tablet RxNorm: 910217 1/2 Tablet(s) PO BID 08/02/2017 Inactive fentanyl 100 mcg/hr transdermal patch RxNorm: 185956 1 Patch TD Q72H 06/28/2017 07/25/2017 Inactive fentanyl 25 mcg/hr transdermal patch RxNorm: 629769 1 Patch TD Q72H 06/28/2017 07/25/2017 Inactive hyoscyamine 0.125 mg disintegrating tablet RxNorm: 8227246 Tablet(s) 1-2 Tablet(s ) PO Q8 as needed 06/03/2017 06/22/2017 Inactive fentanyl 25 mcg/hr transdermal patch RxNorm: 015349 1 Patch TD Q72H 05/26/2017 06/24/2017 Inactive Levemir FlexTouch U-100 Insulin 100 unit/mL (3 mL) subcutaneous pen RxNorm: 013605 20 Unit(s) SQ BID 05/26/2017 Inactive fentanyl 100 mcg/hr transdermal patch RxNorm: 377264 1 Patch TD Q72H 05/26/2017 06/24/2017 Inactive hydrocodone 10 mg-acetaminophen 325 mg tablet RxNorm: 132032 1 Tablet(s) PO scheduled BID et Q6 hours as needed 05/12/2017 05/11/2017 Inactive hydrocodone 10 mg-acetaminophen 325 mg tablet RxNorm: 075794 1 Tablet(s) PO scheduled TID et Q6 hours as needed 05/12/2017 06/10/2017 Inactive Not to exceed 3gm/24hr acetaminophen docusate sodium 100 mg tablet RxNorm: 2664130 1 Tablet(s) PO BID as needed if no bowel movement 05/10/2017 05/09/2017 Inactive lisinopril 20 mg tablet RxNorm: 440991 1 Tablet(s) PO daily 09/08/2017 Inactive docusate sodium 100 mg tablet RxNorm: 6956665 1 Tablet(s) PO BID as needed if no bowel movement 05/10/2017 09/14/2017 Inactive fentanyl 25 mcg/hr transdermal patch RxNorm: 197858 1 Patch TD Q72H 05/03/2017 05/25/2017 Inactive lorazepam 0.5 mg tablet RxNorm: 059843 1/2 Tablet(s) PO BID 02/201807/01/2017 Inactive fentanyl 100 mcg/hr transdermal patch RxNorm: 633621 1 Patch TD Q72H 04/27/2017 05/25/2017 Inactive carvedilol 3.125 mg tablet RxNorm: 648938 Tablet(s) GIVE 1 TABLET VIA PEG TUBE DAILY 04/15/2017 10/21/2017 Inactive Levemir FlexTouch 100 unit/mL (3 mL) subcutaneous insulin pen RxNorm: 870185 10 Unit(s) SQ BID 04/15/2017 2017 Inactive hyoscyamine 0.125 mg disintegrating tablet RxNorm: 0201463 1-2 Tablet(s) PO Q8 as needed 04/14/2017 05/03/2017 Inactive hydrocodone 10 mg-acetaminophen 325 mg tablet RxNorm: 086748 1 Tablet(s) PO scheduled BID et Q6 hours as needed 04/13/2017 05/02/2017 Inactive baclofen 10 mg tablet RxNorm: 737846 TAKE 1 TABLET THREE TIMES DAILY VIA STOMACH TUBE 04/08/2017 05/22/2017 Inactive 04/08/2017 9:32:07 AM fentanyl 25 mcg/hr transdermal patch RxNorm: 184138 1 Patch TD Q72H 04/05/2017 05/02/2017 Inactive lidocaine 10 mg/mL (1 %) injection solution RxNorm: 7473703 1 Milliliter(s) Inj daily Mix with rocephin 03/31/20172017 Inactive Pt resides at [facility] lidocaine 10 mg/mL (1 %) injection solution RxNorm: 0454813 1 Milliliter(s) Inj daily Mix with rocephin 03/31/20172017 Inactive Pt resides at [facility] fentanyl 100 mcg/hr transdermal patch RxNorm: 443679 1 Patch TD Q72H 03/29/2017 04/26/2017 Inactive nystatin 100,000 unit/gram topical powder RxNorm: 370350 APPLY UNDER BREASTS TWICE DAILY FOR YEAST SKIN INFECTION AND APPLY TO UNDERARM AND ABDOMINAL FOLDS AND PERIAREA TWICE DAILY 03/29/20172017 Inactive 03/27/2017 9:12:50 AM nystatin 100,000 unit/gram topical powder RxNorm: 372632 APPLY UNDER BREASTS TWICE DAILY FOR YEAST SKIN INFECTION AND APPLY TO UNDERARM AND ABDOMINAL FOLDS AND PERIAREA TWICE DAILY 03/29/20172017 Inactive 03/29/2017 9:42:55 AM2017 9:12:50 AM hyoscyamine 0.125 mg disintegrating tablet RxNorm: 0038064 1-2 Tablet(s) PO Q8 as needed 03/08/2017 03/27/2017 Inactive fentanyl 25 mcg/hr transdermal patch RxNorm: 690863 1 Patch TD Q72H 03/02/2017 03/31/2017 Inactive hydrocodone 10 mg-acetaminophen 325 mg tablet RxNorm: 099949 1 Tablet(s) PO scheduled BID et Q6 hours as needed 02/17/2017 03/18/2017 Inactive fentanyl 100 mcg/hr transdermal patch RxNorm: 496264 1 Patch TD Q72H 02/17/2017 03/18/2017 Inactive Lexapro 10 mg tablet RxNorm: 311017 1 Tablet(s) PO daily 201604/14/2017 Inactive Lexapro 10 mg tablet RxNorm: 977471 1 Tablet(s) PO daily 201602/04/2017 Inactive fentanyl 25 mcg/hr transdermal patch RxNorm: 611876 1 Patch TD Q72H 02/04/2017 03/01/2017 Inactive cyanocobalamin (vit B-12) 1,000 mcg tablet RxNorm: 852084 1 Tablet(s) PO daily 01/18/2017 12/13/2017 Active hyoscyamine 0.125 mg disintegrating tablet RxNorm: 0748290 Tablet(s) 1-2 Tablet(s ) PO Q8 as needed 01/18/2017 02/06/2017 Inactive baclofen 10 mg tablet RxNorm: 596179 TAKE 1 TABLET THREE TIMES DAILY VIA STOMACH TUBE 01/04/2017 02/17/2017 Inactive 01/04/2017 9:25:18 AM fentanyl 100 mcg/hr transdermal patch RxNorm: 544528 1 Patch TD Q72H 12/25/2016 01/23/2017 Inactive hydrochlorothiazide 25 mg tablet RxNorm: 756572 Tablet(s) GIVE 1 TABLET VIA PEG TUBE ONCE A DAY 12/14/2016 07/11/2017 Inactive fentanyl 100 mcg/hr transdermal patch RxNorm: 940161 1 Patch TD Q72H 11/25/2016 12/24/2016 Inactive hyoscyamine 0.125 mg disintegrating tablet RxNorm: 9838382 Tablet(s) 1-2 Tablet(s ) PO Q8 as needed 11/25/2016 12/14/2016 Inactive nystatin 100,000 unit/gram topical powder RxNorm: 852465 APPLY UNDER BREASTS TWICE DAILY FOR YEAST SKIN INFECTION AND APPLY TO UNDERARM AND ABDOMINAL FOLDS AND PERIAREA TWICE DAILY 11/24/20162016 Inactive 11/24/2016 9:34:02 AM hydrocodone 10 mg-acetaminophen 325 mg tablet RxNorm: 642060 1 Tablet(s) PO scheduled BID et Q6 hours as needed 11/02/2016 12/01/2016 Inactive cyanocobalamin (vit B-12) 1,000 mcg tablet RxNorm: 875334 1 Tablet(s) PO daily 11/02/2016 01/17/2017 Inactive hyoscyamine 0.125 mg disintegrating tablet RxNorm: 7189032 1-2 Tablet(s) PO Q8 as needed 10/19/2016 11/24/2016 Inactive fentanyl 100 mcg/hr transdermal patch RxNorm: 095557 1 Patch TD Q72H 10/13/2016 11/11/2016 Inactive hydrocodone 10 mg-acetaminophen 325 mg tablet RxNorm: 251652 1 Tablet(s) PO scheduled BID et Q6 hours as needed 10/05/2016 11/01/2016 Inactive baclofen 10 mg tablet RxNorm: 987549 TAKE 1 TABLET THREE TIMES DAILY VIA STOMACH TUBE 10/01/2016 11/14/2016 Inactive 10/01/2016 9:24:37 AM carvedilol 3.125 mg tablet RxNorm: 612532 GIVE 1 TABLET VIA PEG TUBE 2 TIMES A DAY 09/30/2016 12/28/2016 Inactive Generic For:COREG 3.125MG 09/30/2016 1:12:28 PM09/25/2016 9:06:11 AM Probiotic Blend 2 million cell-50 mg capsule RxNorm: 1 Capsule(s) PO BID 09/17/2016 09/23/2016 Inactive Keflex 500 mg capsule RxNorm: 938385 1 Capsule(s) PO TID 201609/23/2016 Inactive hyoscyamine 0.125 mg/5 mL oral elixir RxNorm: 8875888 5 Milliliter(s) PO TID 09/08/2016 09/17/2016 Inactive hyoscyamine 0.125 mg/5 mL oral elixir RxNorm: 4568224 5 Milliliter(s) PO TID 09/08/2016 09/07/2016 Inactive hyoscyamine 0.125 mg disintegrating tablet RxNorm: 1306916 1-2 Tablet(s) PO Q8 as needed 09/07/2016 10/18/2016 Inactive fentanyl 100 mcg/hr transdermal patch RxNorm: 506939 1 Patch TD Q72H 09/01/2016 09/30/2016 Inactive ranitidine 150 mg tablet RxNorm: 496490 1 Tablet(s) PO BID 08/2016 No Stop Date Active hydrocodone 10 mg-acetaminophen 325 mg tablet RxNorm: 273325 1 Tablet(s) PO scheduled BID et Q6 hours as needed 08/24/2016 09/22/2016 Inactive cyanocobalamin (vit B-12) 1,000 mcg tablet RxNorm: 860343 1 Tablet(s) PO daily 08/12/2016 11/01/2016 Inactive cyanocobalamin (vit B-12) 1,000 mcg tablet RxNorm: 931850 1 Tablet(s) PO daily 08/12/2016 08/11/2016 Inactive hydrocodone 10 mg-acetaminophen 325 mg tablet RxNorm: 272712 1-2 Tablet(s) PO Q6 as needed 08/03/2016 08/17/2016 Inactive fentanyl 100 mcg/hr transdermal patch RxNorm: 046298 1 Patch TD Q72H 08/03/2016 08/31/2016 Inactive nystatin 100,000 unit/gram topical powder RxNorm: 544425 APPLY UNDER BREASTS TWICE DAILY FOR YEAST SKIN INFECTION AND APPLY TO UNDERARM AND ABDOMINAL FOLDS AND PERIAREA TWICE DAILY 07/17/20162016 Inactive 07/17/2016 3:56:54 PM fentanyl 100 mcg/hr transdermal patch RxNorm: 742372 1 Patch TD Q72H 07/15/2016 08/02/2016 Inactive lisinopril 20 mg tablet RxNorm: 512302 1 Tablet(s) PO daily 03/28/2017 Inactive hydrocodone 10 mg-acetaminophen 325 mg tablet RxNorm: 860887 1-2 Tablet(s) PO Q6 as needed 07/01/2016 07/15/2016 Inactive Xarelto 20 mg tablet RxNorm: 2231509 Tablet(s) TAKE 1 TABLET VIA PEG TUBE AT BEDTIME 06/19/2016 04/14/2017 Inactive fentanyl 100 mcg/hr transdermal patch RxNorm: 154999 1 Patch TD Q72H 06/17/2016 07/14/2016 Inactive nystatin 100,000 unit/gram topical powder RxNorm: 070648 APPLY TO UNDER BREASTS TWICE DAILY FOR YEAST SKIN INFECTION AND APPLY TO UNDERARM AND ABDOMINAL FOLDS AND PERIAREA TWICE DAILY 06/15/20162016 Inactive Generic For:MYCOSTATIN 100, 000 UNITS/GM PW 06/15/2016 12:28:26 PM fentanyl 100 mcg/hr transdermal patch RxNorm: 244105 1 Patch TD Q72H 06/05/2016 06/16/2016 Inactive hydrocodone 10 mg-acetaminophen 325 mg tablet RxNorm: 992809 1-2 Tablet(s) PO Q6 as needed 06/02/2016 06/16/2016 Inactive Probiotic Blend 2 million cell-50 mg capsule RxNorm: 1 Capsule(s) PO BID 05/13/2016 05/19/2016 Inactive nitrofurantoin 100 mg capsule RxNorm: 943630 1 Capsule(s) PO BID 05/13/2016 05/19/2016 Inactive nitrofurantoin 100 mg capsule RxNorm: 461394 1 Capsule(s) PO BID 05/13/2016 05/12/2016 Inactive fentanyl 75 mcg/hr transdermal patch RxNorm: 156540 1 Patch TD Q72H 05/13/2016 06/04/2016 Inactive Keflex 500 mg capsule RxNorm: 195552 1 Capsule(s) PO TID 201605/13/2016 Inactive Patient at [facility] Keflex 500 mg capsule RxNorm: 834697 1 Capsule(s) PO TID 201605/06/2016 Inactive hydrocodone 10 mg-acetaminophen 325 mg tablet RxNorm: 607205 1-2 Tablet(s) PO Q6 as needed 05/04/2016 06/01/2016 Inactive hydrochlorothiazide 25 mg tablet RxNorm: 859747 Tablet(s) GIVE 1 TABLET VIA PEG TUBE ONCE A DAY 04/29/2016 11/24/2016 Inactive hydrochlorothiazide 25 mg tablet RxNorm: 990417 GIVE 1 TABLET VIA PEG TUBE ONCE A DAY 04/22/2016 04/28/2016 Inactive Generic For:HYDRODIURIL 25 MG TABLET refill request fentanyl 75 mcg/hr transdermal patch RxNorm: 145510 1 Patch TD Q72H 04/17/2016 05/12/2016 Inactive Xarelto 20 mg tablet RxNorm: 9298741 TAKE 1 TABLET VIA PEG TUBE AT BEDTIME 04/16/2016 06/14/2016 Inactive 04/16/2016 9:08:52 AM citalopram 40 mg tablet RxNorm: 478254 1 Tablet(s) PO daily 02/201702/25/2017 Inactive citalopram 40 mg tablet RxNorm: 012057 1 Tablet(s) PO daily 08/201604/01/2016 Inactive hydrocodone 10 mg-acetaminophen 325 mg tablet RxNorm: 739415 1-2 Tablet(s) PO Q6 as needed 03/27/2016 04/25/2016 Inactive fentanyl 75 mcg/hr transdermal patch RxNorm: 136749 1 Patch TD Q72H 03/18/2016 04/16/2016 Inactive hydrocodone 10 mg-acetaminophen 325 mg tablet RxNorm: 425723 1-2 Tablet(s) PO Q6 as needed 03/11/2016 03/26/2016 Inactive citalopram 40 mg tablet RxNorm: 395730 1 Tablet(s) PO daily 03/26/2016 Inactive Levemir FlexTouch U-100 Insulin 100 unit/mL (3 mL) subcutaneous pen RxNorm: 099940 20 Unit(s) SQ BID 03/02/201611/2016 Inactive lisinopril 20 mg tablet RxNorm: 106015 1 Tablet(s) PO daily 08/201507/01/2016 Inactive Ativan 0.5 mg tablet RxNorm: 848355 1 Tablet(s) PO Q4H as needed 02/18/2016 04/14/2017 Inactive Xarelto 20 mg tablet RxNorm: 2712689 TAKE 1 TABLET VIA PEG TUBE AT BEDTIME 02/12/2016 04/11/2016 Inactive 02/12/2016 9:08:22 AM hydrocodone 10 mg-acetaminophen 325 mg tablet RxNorm: 334375 1-2 Tablet(s) PO Q6 as needed 02/12/2016 03/10/2016 Inactive fentanyl 75 mcg/hr transdermal patch RxNorm: 138693 1 Patch TD Q72H 02/11/2016 03/11/2016 Inactive citalopram 20 mg tablet RxNorm: 227594 1 Tablet(s) PO daily 10/201503/03/2016 Inactive fentanyl 75 mcg/hr transdermal patch RxNorm: 135709 1 TD Q72H 01/17/2016 02/10/2016 Inactive hydrocodone 10 mg-acetaminophen 325 mg tablet RxNorm: 368261 1-2 Tablet(s) PO Q6 as needed 01/07/2016 02/05/2016 Inactive fentanyl 50 mcg/hr transdermal patch RxNorm: 829021 1 TD Q72H 01/01/2016 01/16/2016 Inactive fentanyl 50 mcg/hr transdermal patch RxNorm: 653600 1 TD q 3 days 12/26/2015 12/31/2015 Inactive Xarelto 20 mg tablet RxNorm: 3722279 TAKE 1 TABLET VIA PEG TUBE AT BEDTIME 12/17/2015 02/11/2016 Inactive 12/16/2015 3:27:57 PM12/14/2015 9:45:17 AM hydrocodone 10 mg-acetaminophen 325 mg tablet RxNorm: 794719 1-2 Tablet(s) PO Q6 as needed 12/06/2015 01/04/2016 Inactive fentanyl 50 mcg/hr transdermal patch RxNorm: 945454 1 TD q 3 days 12/06/2015 12/25/2015 Inactive fentanyl 25 mcg/hr transdermal patch RxNorm: 872891 1 TD q 3 days 11/18/2015 12/05/2015 Inactive Zithromax Z-Eliu 250 mg tablet RxNorm: 418955 1 Tablet(s) PO UD 10/09/2015 02/26/2016 Inactive z pack as directed- please write out instructions- pt at [facility] nystatin 100,000 unit/gram topical powder RxNorm: 413803 APPLY TO UNDER BREASTS TWICE DAILY FOR YEAST SKIN INFECTION AND APPLY TO UNDERARM AND ABDOMINAL FOLDS AND PERIAREA TWICE DAILY 10/07/20152015 Inactive Generic For:MYCOSTATIN 100, 000 UNITS/GM PW 10/05/2015 12:07:35 PM fentanyl 25 mcg/hr transdermal patch RxNorm: 142811 1 TD q 3 days 10/03/2015 11/01/2015 Inactive fentanyl 25 mcg/hr transdermal patch RxNorm: 792178 1 TD q 3 days 09/27/2015 10/02/2015 Inactive fentanyl 25 mcg/hr transdermal patch RxNorm: 486593 1 TD q 3 days 09/17/2015 09/26/2015 Inactive fentanyl 25 mcg/hr transdermal patch RxNorm: 862353 1 TD q 3 days 08/30/2015 09/16/2015 Inactive hydrocodone 5 mg-acetaminophen 325 mg tablet RxNorm: 926398 1 Tablet(s) PO Q6 as needed 08/30/2015 09/28/2015 Inactive Diflucan 100 mg tablet RxNorm: 631946 1 Tablet(s) Miscellaneous per peg daily 07/29/2015 08/04/2015 Inactive fentanyl 25 mcg/hr transdermal patch RxNorm: 663698 1 TD q 3 days 07/18/2015 08/29/2015 Inactive hydrocodone 5 mg-acetaminophen 325 mg tablet RxNorm: 483962 1 Tablet(s) PO Q6 as needed 07/18/2015 08/29/2015 Inactive Diflucan 100 mg tablet RxNorm: 662248 1 Tablet(s) Miscellaneous per peg daily 06/17/2015 06/23/2015 Inactive Senna-S 8.6 mg-50 mg tablet RxNorm: 329057 1 Tablet(s) PO daily as needed constipation No Start Date Active Dulcolax (bisacodyl) 10 mg rectal suppository RxNorm: 883557 1 Suppository RTL daily as needed constipation No Start Date Active albuterol sulfate concentrate 5 mg/mL(0.5 %) solution for nebulization RxNorm: 506652 1 Vial INH daily as needed congestion No Start Date Active polyethylene glycol 3350 17 gram/dose oral powder RxNorm: 696635 17 Gram(s) PO daily as needed constipation No Start Date Active baclofen 10 mg tablet RxNorm: 399342 1 Tablet(s) PO TID No Start Date 09/30/2016 Inactive Ativan 0.5 mg tablet RxNorm: 053511 1 Tablet(s) PO Q4H as needed No Start Date 02/17/2016 Inactive ranitidine 150 mg tablet RxNorm: 426147 1 Tablet(s) PO daily No Start Date 08/24/2016 Inactive carvedilol 3.125 mg tablet RxNorm: 227026 1 Tablet(s) PO daily No Start Date 09/29/2016 Inactive citalopram 40 mg tablet RxNorm: 737141 1 Tablet(s) PO daily No Start Date 01/27/2016 Inactive Probiotic Blend oral RxNorm: oral No Start Date 05/12/2016 Inactive hydrochlorothiazide 25 mg tablet RxNorm: 148062 1 Tablet(s) PO daily No Start Date 04/21/2016 Inactive Levemir FlexTouch 100 unit/mL (3 mL) subcutaneous insulin pen RxNorm: 102272 10 Unit(s) SQ BID No Start Date 03/01/2016 Inactive Zithromax Z-Eliu 250 mg tablet RxNorm: 562421 1 Tablet(s) PO UD No Start Date 10/08/2015 Inactive z pack as directed- please write out instructions- pt at [facility] nystatin 100,000 unit/gram topical powder RxNorm: 488912 Gram(s) TOP BID as needed No Start Date 10/06/2015 Inactive pravastatin 40 mg tablet RxNorm: 290458 Tablet(s) PO daily No Start Date 04/14/2017 Inactive lorazepam 0.5 mg tablet RxNorm: 869496 1/2 Tablet(s) PO BID No Start Date 05/02/2017 Inactive Xarelto 20 mg tablet RxNorm: 2294030 1 Tablet(s) PO daily No Start Date 12/16/2015 Inactive fentanyl 25 mcg/hr transdermal patch RxNorm: 836401 1 TD q 3 days No Start Date 07/17/2015 Inactive lisinopril 20 mg tablet RxNorm: 065469 1 Tablet(s) PO daily No Start Date 02/24/2016 Inactive hydrocodone 5 mg-acetaminophen 325 mg tablet RxNorm: 818215 1 Tablet(s) PO Q6 as needed No Start Date 07/17/2015 Inactive citalopram 40 mg tablet RxNorm: 956921 1 Tablet(s) PO daily No Start Date 03/03/2016 Inactive hyoscyamine 0.125 mg disintegrating tablet RxNorm: 8787590 1-2 Tablet(s) PO Q8 as needed No [...] Code Item Item Code Result Date %Hba1C Azp845 % HbA1c 35669-8 5.5 % 11/04/2017 %Hba1C Mwm045 Gluc Ave 111 mg/dL 11/04/2017 Culture Urine [id number] URINE CULTURE SEE NOTES 10/04/2017 Culture Urine [id number] Continued Results 10/04/2017 Urine Culture Ucult Complete [...] Ord28 U-Com Culture to follow 10/01/2017 B12 Dkt877 B12 >1500.00 pg/ml 02/19/2017 Cbc With Differential Ord2 WBC 7.26 K/ul 02/02/2017 Cbc With Differential Ord2 RBC 3.36 M/ul 02/02/2017 Cbc With Differential Ord2 HGB 10.6 g/dl 02/02/2017 Cbc With Differential Ord2 Neut% 55.0 % 02/02/2017 Cbc With Differential Ord2 HCT 33.9 % 02/02/2017 Cbc With Differential Ord2 Lymph% 31.4 % 02/02/2017 Cbc With Differential Ord2 MCV 100.9 fl 02/02/2017 Cbc With Differential Ord2 MCH 31.5 pg 02/02/2017 Cbc With Differential Ord2 [place]% 8.3 % 02/02/2017 Cbc With Differential Ord2 MCHC 31.3 pg 02/02/2017 Cbc With Differential Ord2 Eos% 5.2 % 02/02/2017 Cbc With Differential Ord2 Baso% 0.1 % 02/02/2017 Cbc With Differential Ord2 PLT 127 K/ul 02/02/2017 Cbc With Differential Ord2 Neut ABS# 3.99 K/ul 02/02/2017 Cbc With Differential Ord2 RDW 12.3 % 02/02/2017 Cbc With Differential Ord2 Lymph ABS# 2.28 K/ul 02/02/2017 Cbc With Differential Ord2 [place] ABS# 0.6 K/ul 02/02/2017 Cbc With Differential Ord2 Eos ABS# 0.4 K/ul 02/02/2017 Cbc With Differential Ord2 Baso ABS# 0.0 K/ul 02/02/2017 %Hba1C Efu441 % HbA1c 67322-3 5.2 % 02/02/2017 %Hba1C Tfs847 Gluc Ave 103 mg/dL 02/02/2017 Comp Metabolic Qzt159 NA 138 mEq/L 02/02/2017 Comp Metabolic Knd864 K 4.5 mEq/L 02/02/2017 Comp Metabolic Ekc907 CL 98 mEq/L 02/02/2017 Comp Metabolic Xml248 CO2 37.0 mEq/L 02/02/2017 Comp Metabolic Erw349 ANION GAP 8 02/02/2017 Comp Metabolic Rpc573 GLUCOSE 94 mg/dL 02/02/2017 Comp Metabolic Fsg887 Creat 0.7 mg/dL 02/02/2017 Comp Metabolic Lzo963 eGFR 88 ml/min/1.73m2 02/02/2017 Comp Metabolic Gck309 BUN 36 mg/dL 02/02/2017 Comp Metabolic Cbk321 B/C Ratio 50.7 Ratio 02/02/2017 Comp Metabolic Bkt843 CALCIUM 9.0 mg/dL 02/02/2017 Comp Metabolic Nxs587 ALK PHOS 78 U/L 02/02/2017 Comp Metabolic Crx670 AST(SGOT) 22 U/L 02/02/2017 Comp Metabolic Mdi944 ALT(SGPT) 28 U/L 02/02/2017 Comp Metabolic Etn734 BILI T 0.3 mg/dL 02/02/2017 Comp Metabolic Yui373 ALBUMIN 3.3 g/dL 02/02/2017 Comp Metabolic Oqq010 TPRO 5.9 g/dL 02/02/2017 Comp Metabolic Bqj709 GLOB 2.6 g/dL 02/02/2017 Comp Metabolic Gam964 A/G Ratio 1.3 Ratio 02/02/2017 Comp Metabolic Edl545 Osmo 284 mOsmo 02/02/2017 %Hba1C Tmt620 % HbA1c 63575-8 5.0 % 10/29/2016 %Hba1C Iyo959 Gluc Ave 97 mg/dL 10/29/2016 Culture Urine [id number] URINE CULTURE SEE NOTES 09/21/2016 Culture Urine [id number] Continued Results 09/21/2016 Urine Culture Ucult Complete [...] U-VOL VOLUME SUFFICIENT (10mL) 09/17/2016 Urinalysis Ord28 U-Com Culture to follow 09/17/2016 Urinalysis Ord28 U-Yeast NEGATIVE 09/17/2016 Cbc With Differential Ord2 WBC 6.51 K/ul 07/30/2016 Cbc With Differential Ord2 RBC 3.58 M/ul 07/30/2016 Cbc With Differential Ord2 HGB 11.6 g/dl 07/30/2016 Cbc With Differential Ord2 Neut% 43.9 % 07/30/2016 Cbc With Differential Ord2 HCT 35.6 % 07/30/2016 Cbc With Differential Ord2 MCV 99.4 fl 07/30/2016 Cbc With Differential Ord2 Lymph% 41.3 % 07/30/2016 Cbc With Differential Ord2 [place]% 7.2 % 07/30/2016 Cbc With Differential Ord2 MCH 32.4 pg 07/30/2016 Cbc With Differential Ord2 Eos% 7.4 % 07/30/2016 Cbc With Differential Ord2 MCHC 32.6 pg 07/30/2016 Cbc With Differential Ord2 Baso% 0.2 % 07/30/2016 Cbc With Differential Ord2 PLT 160 K/ul 07/30/2016 Cbc With Differential Ord2 Neut ABS# 2.86 K/ul 07/30/2016 Cbc With Differential Ord2 RDW 12.1 % 07/30/2016 Cbc With Differential Ord2 Lymph ABS# 2.69 K/ul 07/30/2016 Cbc With Differential Ord2 [place] ABS# 0.5 K/ul 07/30/2016 Cbc With Differential Ord2 Eos ABS# 0.5 K/ul 07/30/2016 Cbc With Differential Ord2 Baso ABS# 0.0 K/ul 07/30/2016 Comp Metabolic Faj993 NA 141 mEq/L 07/30/2016 Comp Metabolic Rue106 K 4.3 mEq/L 07/30/2016 Comp Metabolic Kgy659 CL 100 mEq/L 07/30/2016 Comp Metabolic Tka837 CO2 33.0 mEq/L 07/30/2016 Comp Metabolic Suc129 ANION GAP 12 07/30/2016 Comp Metabolic Htv589 GLUCOSE 64 mg/dL 07/30/2016 Comp Metabolic Zte132 Creat 0.5 mg/dL 07/30/2016 Comp Metabolic Lbm754 eGFR 126 ml/min/1.73m2 07/30/2016 Comp Metabolic Lph767 BUN 25 mg/dL 07/30/2016 Comp Metabolic Rov986 B/C Ratio 48.1 Ratio 07/30/2016 Comp Metabolic Mox551 CALCIUM 8.9 mg/dL 07/30/2016 Comp Metabolic Xwv686 ALK PHOS 90 U/L 07/30/2016 Comp Metabolic Kre604 AST(SGOT) 22 U/L 07/30/2016 Comp Metabolic Llw682 ALT(SGPT) 36 U/L 07/30/2016 Comp Metabolic Alw754 BILI T 0.3 mg/dL 07/30/2016 Comp Metabolic Ktf011 ALBUMIN 3.4 g/dL 07/30/2016 Comp Metabolic Qkd606 TPRO 6.0 g/dL 07/30/2016 Comp Metabolic Utb658 GLOB 2.7 g/dL 07/30/2016 Comp Metabolic Bqx718 A/G Ratio 1.3 Ratio 07/30/2016 Comp Metabolic Bfe242 Osmo 284 mOsmo 07/30/2016 A1C Frequency Bhl158 A1CF 76402-8 Last A1C performed at [facility] lab on: 05-12-2016 07/30/2016 %Hba1C Zjv206 % HbA1c 31840-7 5.2 % 05/12/2016 %Hba1C Nvd8[address] 103 mg/dL 05/12/2016 Culture Urine [id number] URINE CULTURE SEE NOTES 05/11/2016 Urine Culture [...] U-VOL VOLUME SUFFICIENT (10mL) 05/06/2016 Urinalysis Ord28 U-Com Culture to follow 05/06/2016 Urinalysis Ord28 U-Yeast NEGATIVE 05/06/2016 Culture Urine [id number] URINE CULTURE SEE NOTES 03/17/2016 Culture Urine [id number] Continued Results 03/17/2016 Urine Culture Ucult Complete [...] 32.0 pg 02/11/2016 Cbc With Differential Ord2 [place]% 9.1 % 02/11/2016 Cbc With Differential Ord2 [...] 2.59 K/ul 02/11/2016 Cbc With Differential Ord2 [place] ABS# 0.6 K/ul 02/11/2016 Cbc With Differential Ord2 Eos ABS# 0.3 K/ul 02/11/2016 Cbc With Differential Ord2 Baso ABS# 0.0 K/ul 02/11/2016 Comp Metabolic Gqd253 NA 137 mEq/L 02/11/2016 Comp Metabolic Ngz226 K 4.4 mEq/L 02/11/2016 Comp Metabolic Uvk460 CL 100 mEq/L 02/11/2016 Comp Metabolic Seh714 CO2 25.0 mEq/L 02/11/2016 Comp Metabolic Yyn499 ANION GAP 16 02/11/2016 Comp Metabolic Inl871 GLUCOSE 99 mg/dL 02/11/2016 Comp Metabolic Zne390 Creat 0.6 mg/dL 02/11/2016 Comp Metabolic Cid243 eGFR 99 ml/min/1.73m2 02/11/2016 Comp Metabolic Whs516 BUN 27 mg/dL 02/11/2016 Comp Metabolic Qek962 B/C Ratio 42.2 Ratio 02/11/2016 Comp Metabolic Qmm184 CALCIUM 9.2 mg/dL 02/11/2016 Comp Metabolic Ryx902 ALK PHOS 74 U/L 02/11/2016 Comp Metabolic Dxf338 AST(SGOT) 24 U/L 02/11/2016 Comp Metabolic Pal534 ALT(SGPT) 26 U/L 02/11/2016 Comp Metabolic Awg175 BILI T 0.5 mg/dL 02/11/2016 Comp Metabolic Xnw075 ALBUMIN 3.5 g/dL 02/11/2016 Comp Metabolic Hdj337 TPRO 6.2 g/dL 02/11/2016 Comp Metabolic Zep860 GLOB 2.7 g/dL 02/11/2016 Comp Metabolic Xqd426 A/G Ratio 1.3 Ratio 02/11/2016 Comp Metabolic Kgs830 Osmo 279 mOsmo 02/11/2016 Review of Systems [...] Code : 8480-6 BMI: 31.4 Code : 30191-6 Heart Rate 1 : 72 bpm Height: 5'1" Weight: 166 lbs 06/17/2015 Blood Pressure 1: 110/78 Code : 8480-6 BMI: 33.3 Code : 98336-0 Heart Rate 1 : 74 bpm Height: [...] Present Encounters Encounter Performer Location Codes Date [id number]) [id number] EST. PATIENT, LEVEL IV Diagnosis: Essential (primary) hypertension[ICD10: I10] Diagnosis: Type 2 diabetes mellitus without complications[ICD10: E11.9] Carlyn Everett MD, [facility] CPT-4: 71118 2017 [id number] EST. PATIENT, LEVEL IV Diagnosis: Type 2 diabetes mellitus with hyperglycemia[ICD10: E11.65] Diagnosis: Essential (primary) hypertension[ICD10: I10] Diagnosis: Pain in left shoulder[ICD10: M25.512] Diagnosis: Pain in right shoulder[ICD10: M25.511] Diagnosis: Pain in left knee[ICD10: M25.562] Diagnosis: Pain in right knee[ICD10: M25.561] Vonda Everett MD, [facility] CPT-4: 91331 09/09/2017 [id number] EST. PATIENT, LEVEL IV Diagnosis: Essential (primary) hypertension[ICD10: I10] Diagnosis: Type 2 diabetes mellitus with hyperglycemia[ICD10: E11.65] Diagnosis: Low back pain[ICD10: M54.5] Sunitha Everett MD, [facility] CPT-4 : 45388 06/08/2017 ([id number] EST. PATIENT, LEVEL IV Diagnosis: Essential (primary) hypertension[ICD10: I10] Diagnosis: Type 2 diabetes mellitus with hyperglycemia[ICD10: E11.65] Diagnosis: Low back pain[ICD10: M54.5] Sunitha Everett MD, [facility] CPT-4 : 87495 04/15/2017 [id number]) [id number] EST. PATIENT, LEVEL IV Diagnosis: Essential (primary) hypertension[ICD10: I10] Diagnosis: Type 2 diabetes mellitus with hyperglycemia[ICD10: E11.65] Diagnosis: Low back pain[ICD10: M54.5] Vonda Everett MD, [facility] CPT- 4: 88929 02/16/2017 19306 EST. 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 09/09/2017 [facility]ment[phone] [facility] (15 min) Moderate 09/09/2017 Patient Education: Patient [...] and PRN pain medications - will have long-term fax over PRN medication administration record. 06/08/2017 Appointment: [phone] [facility] (30 min) Complex 06/08/2017 Patient Education: Patient [...] of over-medication. 04/15/2017 Appointment: [phone] [facility] (30 min) Complex 04/15/2017 Patient Education: Patient Medication Summary Completed [...] today. 02/16/2017 App[facility]ment: [phone] [facility] [place] (15 min) Moderate 02/16/2017 Patient Education: Patient [...] or concerns. 11/09/2016 Appointment: [phone] [facility] (30 min) Complex 11/09/2016 Patient Education: Patient Medication Summary Completed 11/09/2016 Care Plan: Referral Order SNOMED-CT : [id number] Pending 11/09/2016 Patient Education: Patient Medication Summary [...] Follow up weight in 1 month Neck tzek-cxyvamtylgo-Wutr PT focus neck/upper body Right earache-cerumen removed with water pick today in the office 07/18/2015 Appointment: (30 min) Complex 07/18/2015 Patient Education: Patient Medication Summary Completed 07/18/2015 Patient Education: Obesity Completed 07/18/2015 Patient Education: .Cervicalgia Neck Pain Completed 07/18/2015 [phone] [facility] Referral Completed 06/25/2015 Visit Plan: Hypertension - [...] normal liver response to medications. referral to [facility] physical [facility] therapy for post stroke - left sided weakness, neck stiffness, upper extremity weakness Diabetes Mellitus - controlled - per family report - check labs this week, get report from and [facility]. I spent over an hour with the patient in direct contact. 06/17/2015 Appointment: [phone] [facility] New Patient 06/17/2015 Patient Education: Patient Medication Summary Completed 06/17/2015 Patient Education: Obesity Completed 06/17/2015 Patient Education: Hypertension Completed 06/17/2015 Care Plan: Referral Order SNOMED-CT : [id number] Ordered 06/17/2015 Referral: Jorge Luis Carroll Referral Initiated Referral: [facility] [phone] [facility] Referral Appointment Requested Instructions Comment . Hypertension [...] normal liver response to medications. referral to [facility] physical [facility] therapy for post stroke - left sided weakness, neck stiffness, upper extremity weakness Diabetes Mellitus - controlled - per family report - check labs this week, get report from and [facility]. I spent over an hour with the patient in direct contact. . PEG tube - tube has not been replaced in some time, some mild irritation noted around the tube - will refer to surgeon for PEG tube replacement. Pt/family is to notify clinic with any changes, questions, or concerns. Add 1 scoop of whey protein from [facility] to 2 feedings per day . Hypertension [...] Follow up weight in 1 month Neck xyqv-xpfmohhquwx-Vgjw PT focus neck/upper body Right earache-cerumen removed [...] and PRN pain medications - will have long-term fax over PRN medication administration record. . [...]
--- OUTSIDE RECORDS SUMMARY | 2017-12-16 14:22 | XMS REPORT | CCD ---
Author Author [facility] Organization [facility] Address [address] [place] [address] Phone Care Team Providers Care Medical Office Clerk Name Role Phone PP Unavailable CCM Unavailable Summary Purpose Interface Exchange Insurance Providers Payer name Policy type / Coverage type Covered libertarian ID Effective Begin Date Effective End Date WPS Medicare Part B Medicare Part B [id number] Unknown Unknown [employer] Medicare Part B [id number] Unknown Unknown Family history Father Diagnosis Age At Onset Arthritis Unknown Hypertension Unknown Mother Diagnosis Age At Onset Diabetes mellitus Type 2 Unknown Depression Unknown Arthritis Unknown Stroke Unknown Hypertension Unknown Sister Diagnosis Age At Onset Colon cancer Unknown Social History Social History Element Codes Description Effective Dates Living arrangements Unknown Correction [facility] 04/15/2017 Marital status Unknown Anothony 06/17/2015 Number of children Unknown 3 06/17/2015 Employment Unknown Retired 06/17/[address]: 7675595 Quit over 10 years ago 15+ 06/17/[address]: 250142723 Never drinks alcohol 06/17/2015 Allergies, Adverse Reactions, [...] hydrocodone 10 mg-acetaminophen 325 mg tablet RxNorm: 769329 2 Tablet(s) PO scheduled TID and 1 tab q 4 as needed 11/09/2017 No Stop Date Active Not to exceed 3gm/24hr acetaminophen Levemir FlexTouch U-100 Insulin 100 unit/mL (3 mL) subcutaneous pen RxNorm: 853488 8 Unit(s) SQ QHS 11/09/2017 No Stop Date Active fentanyl 100 mcg/hr transdermal patch RxNorm: 610522 1 Patch TD Q72H 2017 12/07/2017 Active hyoscyamine 0.125 mg disintegrating tablet RxNorm: 9438285 1-2 Tablet(s) PO Q8 as needed 11/03/2017 No Stop Date Active carvedilol 3.125 mg tablet RxNorm: 454801 GIVE 1 TABLET VIA PEG TUBE 2 TIMES A DAY 10/22/2017 01/19/2018 Active Generic For:COREG 3.125MG 10/22/2017 9:23:30 AM hydrocodone 10 mg-acetaminophen 325 mg tablet RxNorm: 441227 2 Tablet(s) PO scheduled TID and 1 tab q 4 as needed 10/22/2017 2017 Inactive Not to exceed 3gm/24hr acetaminophen Duragesic 75 mcg/hr transdermal patch RxNorm: 405046 1 Patch TD Q72H 10/20/2017 No Stop Date Active fentanyl 100 mcg/hr transdermal patch RxNorm: 381089 1 Patch TD Q72H 10/20/2017 11/07/2017 Inactive lorazepam 0.5 mg tablet RxNorm: 307172 1 Tablet(s) PO BID and 1 tab q 6 hours prn 10/18/2017 No Stop Date Active baclofen 10 mg tablet RxNorm: 427708 TAKE 1 TABLET THREE TIMES DAILY VIA STOMACH TUBE 10/07/2017 03/05/2018 Active 10/07/2017 5:36:15 PM 10/07/2017 5:36:13 PM N O T I C E Last quantity doesn't match original quantity cranberry extract 500 mg tablet RxNorm: 3050443 1 Tablet(s) PO QAM 10/04/2017 01/31/2018 Active Cipro 500 mg tablet RxNorm: 226336 1 Tablet(s) PO BID 201710/03/2017 Inactive dc keflex hydrocodone 10 mg-acetaminophen 325 mg tablet RxNorm: 951940 2 Tablet(s) PO scheduled TID as needed 10/04/20172017 Inactive Not to exceed 3gm/24hr acetaminophen cranberry extract 500 mg tablet RxNorm: 9208837 1 Tablet(s) PO QAM 10/04/2017 10/03/2017 Inactive Cipro 500 mg tablet RxNorm: 849671 1 Tablet(s) PO BID 201710/10/2017 Inactive dc keflex Duragesic 75 mcg/hr transdermal patch RxNorm: 159962 1 Patch TD Q72H 09/20/2017 10/19/2017 Inactive fentanyl 100 mcg/hr transdermal patch RxNorm: 322556 1 Patch TD Q72H 09/20/2017 10/19/2017 Inactive hyoscyamine 0.125 mg disintegrating tablet RxNorm: 8093385 1 Tablet(s) PO TID and 1 Tablet Q4H prn increased secretions 09/15/2017 11/02/2017 Inactive hydrocodone 10 mg-acetaminophen 325 mg tablet RxNorm: 372367 2 Tablet(s) PO scheduled TID and 1-2 Tabs Q4H PRN pain 09/15/2017 10/03/2017 Inactive Not to exceed 3gm/24hr acetaminophen lorazepam 0.5 mg tablet RxNorm: 408241 1 Tablet(s) PO BID 09/1510/17/2017 Inactive Lexapro 10 mg tablet RxNorm: 155280 1 Tablet(s) PO daily 201709/14/2017 Inactive lisinopril 10 mg tablet RxNorm: 019820 1 Tablet(s) PO daily 06/05/2018 Active Levemir FlexTouch U-100 Insulin 100 unit/mL (3 mL) subcutaneous pen RxNorm: 685881 10 Unit(s) daily 09/09/201709/15 Inactive Duragesic 75 mcg/hr transdermal patch RxNorm: 251030 1 Patch TD Q72H 09/09/2017 09/19/2017 Inactive nystatin 100,000 unit/gram topical cream RxNorm: 033774 1 Gram(s) TOP TID until healed to gaulding 09/06/2017 01/03/2018 Active nystatin 100,000 unit/gram topical cream RxNorm: 186268 1 Gram(s) TOP TID until healed to gaulding 09/06/2017 09/05/2017 Inactive hydrocodone 10 mg-acetaminophen 325 mg tablet RxNorm: 871060 2 Tablet(s) PO scheduled TID as needed 08/31/20172017 Inactive Not to exceed 3gm/24hr acetaminophen fentanyl 100 mcg/hr transdermal patch RxNorm: 082012 1 Patch TD Q72H 08/24/2017 09/19/2017 Inactive fentanyl 50 mcg/hr transdermal patch RxNorm: 220041 1 Patch TD Q72H 08/24/2017 09/08/2017 Inactive fentanyl 25 mcg/hr transdermal patch RxNorm: 650129 1 Patch TD Q72H 08/24/2017 08/24/2017 Inactive hyoscyamine 0.125 mg disintegrating tablet RxNorm: 6418484 Tablet(s) 1-2 Tablet(s ) PO Q8 as needed 08/23/2017 09/14/2017 Inactive hydrocodone 10 mg-acetaminophen 325 mg tablet RxNorm: 597041 1 Tablet(s) PO scheduled TID et Q6 hours as needed 08/18/2017 08/30/2017 Inactive Not to exceed 3gm/24hr acetaminophen hydrochlorothiazide 25 mg tablet RxNorm: 422156 GIVE 1 TABLET VIA PEG TUBE ONCE DAILY 08/17/2017 02/12/2018 Active Generic For:HYDRODIURIL 25 MG TABLET 2017 9:01:54 AM08/11/2017 10:12:00 AM lorazepam 0.5 mg tablet RxNorm: 918776 1/2 Tablet(s) PO BID 09/14/2017 Inactive fentanyl 100 mcg/hr transdermal patch RxNorm: 851871 1 Patch TD Q72H 07/26/2017 08/23/2017 Inactive fentanyl 25 mcg/hr transdermal patch RxNorm: 237135 1 Patch TD Q72H 07/26/2017 08/23/2017 Inactive hydrocodone 10 mg-acetaminophen 325 mg tablet RxNorm: 288426 1 Tablet(s) PO scheduled TID et Q6 hours as needed 07/16/2017 08/14/2017 Inactive Not to exceed 3gm/24hr acetaminophen hyoscyamine 0.125 mg disintegrating tablet RxNorm: 8784161 Tablet(s) 1-2 Tablet(s ) PO Q8 as needed 07/13/2017 08/01/2017 Inactive baclofen 10 mg tablet RxNorm: 533310 TAKE 1 TABLET THREE TIMES DAILY VIA STOMACH TUBE 07/12/2017 10/06/2017 Inactive 07/12/2017 9:04:08 AM N O T I C E Last quantity doesn't match original quantity lorazepam 0.5 mg tablet RxNorm: 029132 1/2 Tablet(s) PO BID 08/02/2017 Inactive fentanyl 100 mcg/hr transdermal patch RxNorm: 437686 1 Patch TD Q72H 06/28/2017 07/25/2017 Inactive fentanyl 25 mcg/hr transdermal patch RxNorm: 177348 1 Patch TD Q72H 06/28/2017 07/25/2017 Inactive hyoscyamine 0.125 mg disintegrating tablet RxNorm: 2980712 Tablet(s) 1-2 Tablet(s ) PO Q8 as needed 06/03/2017 06/22/2017 Inactive fentanyl 25 mcg/hr transdermal patch RxNorm: 833709 1 Patch TD Q72H 05/26/2017 06/24/2017 Inactive Levemir FlexTouch U-100 Insulin 100 unit/mL (3 mL) subcutaneous pen RxNorm: 047075 20 Unit(s) SQ BID 05/26/2017 Inactive fentanyl 100 mcg/hr transdermal patch RxNorm: 048749 1 Patch TD Q72H 05/26/2017 06/24/2017 Inactive hydrocodone 10 mg-acetaminophen 325 mg tablet RxNorm: 130774 1 Tablet(s) PO scheduled BID et Q6 hours as needed 05/12/2017 05/11/2017 Inactive hydrocodone 10 mg-acetaminophen 325 mg tablet RxNorm: 451209 1 Tablet(s) PO scheduled TID et Q6 hours as needed 05/12/2017 06/10/2017 Inactive Not to exceed 3gm/24hr acetaminophen docusate sodium 100 mg tablet RxNorm: 6900248 1 Tablet(s) PO BID as needed if no bowel movement 05/10/2017 05/09/2017 Inactive lisinopril 20 mg tablet RxNorm: 830542 1 Tablet(s) PO daily 09/08/2017 Inactive docusate sodium 100 mg tablet RxNorm: 2942635 1 Tablet(s) PO BID as needed if no bowel movement 05/10/2017 09/14/2017 Inactive fentanyl 25 mcg/hr transdermal patch RxNorm: 520690 1 Patch TD Q72H 05/03/2017 05/25/2017 Inactive lorazepam 0.5 mg tablet RxNorm: 313027 1/2 Tablet(s) PO BID 02/201807/01/2017 Inactive fentanyl 100 mcg/hr transdermal patch RxNorm: 030689 1 Patch TD Q72H 04/27/2017 05/25/2017 Inactive carvedilol 3.125 mg tablet RxNorm: 328771 Tablet(s) GIVE 1 TABLET VIA PEG TUBE DAILY 04/15/2017 10/21/2017 Inactive Levemir FlexTouch 100 unit/mL (3 mL) subcutaneous insulin pen RxNorm: 489656 10 Unit(s) SQ BID 04/15/2017 2017 Inactive hyoscyamine 0.125 mg disintegrating tablet RxNorm: 5590266 1-2 Tablet(s) PO Q8 as needed 04/14/2017 05/03/2017 Inactive hydrocodone 10 mg-acetaminophen 325 mg tablet RxNorm: 723002 1 Tablet(s) PO scheduled BID et Q6 hours as needed 04/13/2017 05/02/2017 Inactive baclofen 10 mg tablet RxNorm: 417349 TAKE 1 TABLET THREE TIMES DAILY VIA STOMACH TUBE 04/08/2017 05/22/2017 Inactive 04/08/2017 9:32:07 AM fentanyl 25 mcg/hr transdermal patch RxNorm: 746404 1 Patch TD Q72H 04/05/2017 05/02/2017 Inactive lidocaine 10 mg/mL (1 %) injection solution RxNorm: 1469252 1 Milliliter(s) Inj daily Mix with rocephin 03/31/20172017 Inactive Pt resides at [facility] lidocaine 10 mg/mL (1 %) injection solution RxNorm: 9438906 1 Milliliter(s) Inj daily Mix with rocephin 03/31/20172017 Inactive Pt resides at [facility] fentanyl 100 mcg/hr transdermal patch RxNorm: 102686 1 Patch TD Q72H 03/29/2017 04/26/2017 Inactive nystatin 100,000 unit/gram topical powder RxNorm: 548584 APPLY UNDER BREASTS TWICE DAILY FOR YEAST SKIN INFECTION AND APPLY TO UNDERARM AND ABDOMINAL FOLDS AND PERIAREA TWICE DAILY 03/29/20172017 Inactive 03/27/2017 9:12:50 AM nystatin 100,000 unit/gram topical powder RxNorm: 732397 APPLY UNDER BREASTS TWICE DAILY FOR YEAST SKIN INFECTION AND APPLY TO UNDERARM AND ABDOMINAL FOLDS AND PERIAREA TWICE DAILY 03/29/20172017 Inactive 03/29/2017 9:42:55 AM2017 9:12:50 AM hyoscyamine 0.125 mg disintegrating tablet RxNorm: 6713636 1-2 Tablet(s) PO Q8 as needed 03/08/2017 03/27/2017 Inactive fentanyl 25 mcg/hr transdermal patch RxNorm: 035763 1 Patch TD Q72H 03/02/2017 03/31/2017 Inactive hydrocodone 10 mg-acetaminophen 325 mg tablet RxNorm: 347083 1 Tablet(s) PO scheduled BID et Q6 hours as needed 02/17/2017 03/18/2017 Inactive fentanyl 100 mcg/hr transdermal patch RxNorm: 891727 1 Patch TD Q72H 02/17/2017 03/18/2017 Inactive Lexapro 10 mg tablet RxNorm: 505317 1 Tablet(s) PO daily 201604/14/2017 Inactive Lexapro 10 mg tablet RxNorm: 705811 1 Tablet(s) PO daily 201602/04/2017 Inactive fentanyl 25 mcg/hr transdermal patch RxNorm: 425291 1 Patch TD Q72H 02/04/2017 03/01/2017 Inactive cyanocobalamin (vit B-12) 1,000 mcg tablet RxNorm: 559421 1 Tablet(s) PO daily 01/18/2017 12/13/2017 Active hyoscyamine 0.125 mg disintegrating tablet RxNorm: 2006868 Tablet(s) 1-2 Tablet(s ) PO Q8 as needed 01/18/2017 02/06/2017 Inactive baclofen 10 mg tablet RxNorm: 482693 TAKE 1 TABLET THREE TIMES DAILY VIA STOMACH TUBE 01/04/2017 02/17/2017 Inactive 01/04/2017 9:25:18 AM fentanyl 100 mcg/hr transdermal patch RxNorm: 639059 1 Patch TD Q72H 12/25/2016 01/23/2017 Inactive hydrochlorothiazide 25 mg tablet RxNorm: 488483 Tablet(s) GIVE 1 TABLET VIA PEG TUBE ONCE A DAY 12/14/2016 07/11/2017 Inactive fentanyl 100 mcg/hr transdermal patch RxNorm: 192887 1 Patch TD Q72H 11/25/2016 12/24/2016 Inactive hyoscyamine 0.125 mg disintegrating tablet RxNorm: 6730694 Tablet(s) 1-2 Tablet(s ) PO Q8 as needed 11/25/2016 12/14/2016 Inactive nystatin 100,000 unit/gram topical powder RxNorm: 059214 APPLY UNDER BREASTS TWICE DAILY FOR YEAST SKIN INFECTION AND APPLY TO UNDERARM AND ABDOMINAL FOLDS AND PERIAREA TWICE DAILY 11/24/20162016 Inactive 11/24/2016 9:34:02 AM hydrocodone 10 mg-acetaminophen 325 mg tablet RxNorm: 874078 1 Tablet(s) PO scheduled BID et Q6 hours as needed 11/02/2016 12/01/2016 Inactive cyanocobalamin (vit B-12) 1,000 mcg tablet RxNorm: 803003 1 Tablet(s) PO daily 11/02/2016 01/17/2017 Inactive hyoscyamine 0.125 mg disintegrating tablet RxNorm: 9081342 1-2 Tablet(s) PO Q8 as needed 10/19/2016 11/24/2016 Inactive fentanyl 100 mcg/hr transdermal patch RxNorm: 479161 1 Patch TD Q72H 10/13/2016 11/11/2016 Inactive hydrocodone 10 mg-acetaminophen 325 mg tablet RxNorm: 149924 1 Tablet(s) PO scheduled BID et Q6 hours as needed 10/05/2016 11/01/2016 Inactive baclofen 10 mg tablet RxNorm: 627807 TAKE 1 TABLET THREE TIMES DAILY VIA STOMACH TUBE 10/01/2016 11/14/2016 Inactive 10/01/2016 9:24:37 AM carvedilol 3.125 mg tablet RxNorm: 204020 GIVE 1 TABLET VIA PEG TUBE 2 TIMES A DAY 09/30/2016 12/28/2016 Inactive Generic For:COREG 3.125MG 09/30/2016 1:12:28 PM09/25/2016 9:06:11 AM Probiotic Blend 2 million cell-50 mg capsule RxNorm: 1 Capsule(s) PO BID 09/17/2016 09/23/2016 Inactive Keflex 500 mg capsule RxNorm: 433651 1 Capsule(s) PO TID 201609/23/2016 Inactive hyoscyamine 0.125 mg/5 mL oral elixir RxNorm: 5827614 5 Milliliter(s) PO TID 09/08/2016 09/17/2016 Inactive hyoscyamine 0.125 mg/5 mL oral elixir RxNorm: 1169086 5 Milliliter(s) PO TID 09/08/2016 09/07/2016 Inactive hyoscyamine 0.125 mg disintegrating tablet RxNorm: 3681389 1-2 Tablet(s) PO Q8 as needed 09/07/2016 10/18/2016 Inactive fentanyl 100 mcg/hr transdermal patch RxNorm: 290668 1 Patch TD Q72H 09/01/2016 09/30/2016 Inactive ranitidine 150 mg tablet RxNorm: 488787 1 Tablet(s) PO BID 08/2016 No Stop Date Active hydrocodone 10 mg-acetaminophen 325 mg tablet RxNorm: 290201 1 Tablet(s) PO scheduled BID et Q6 hours as needed 08/24/2016 09/22/2016 Inactive cyanocobalamin (vit B-12) 1,000 mcg tablet RxNorm: 745271 1 Tablet(s) PO daily 08/12/2016 11/01/2016 Inactive cyanocobalamin (vit B-12) 1,000 mcg tablet RxNorm: 889311 1 Tablet(s) PO daily 08/12/2016 08/11/2016 Inactive hydrocodone 10 mg-acetaminophen 325 mg tablet RxNorm: 605471 1-2 Tablet(s) PO Q6 as needed 08/03/2016 08/17/2016 Inactive fentanyl 100 mcg/hr transdermal patch RxNorm: 388984 1 Patch TD Q72H 08/03/2016 08/31/2016 Inactive nystatin 100,000 unit/gram topical powder RxNorm: 204660 APPLY UNDER BREASTS TWICE DAILY FOR YEAST SKIN INFECTION AND APPLY TO UNDERARM AND ABDOMINAL FOLDS AND PERIAREA TWICE DAILY 07/17/20162016 Inactive 07/17/2016 3:56:54 PM fentanyl 100 mcg/hr transdermal patch RxNorm: 163761 1 Patch TD Q72H 07/15/2016 08/02/2016 Inactive lisinopril 20 mg tablet RxNorm: 876482 1 Tablet(s) PO daily 03/28/2017 Inactive hydrocodone 10 mg-acetaminophen 325 mg tablet RxNorm: 763830 1-2 Tablet(s) PO Q6 as needed 07/01/2016 07/15/2016 Inactive Xarelto 20 mg tablet RxNorm: 3942390 Tablet(s) TAKE 1 TABLET VIA PEG TUBE AT BEDTIME 06/19/2016 04/14/2017 Inactive fentanyl 100 mcg/hr transdermal patch RxNorm: 458096 1 Patch TD Q72H 06/17/2016 07/14/2016 Inactive nystatin 100,000 unit/gram topical powder RxNorm: 041466 APPLY TO UNDER BREASTS TWICE DAILY FOR YEAST SKIN INFECTION AND APPLY TO UNDERARM AND ABDOMINAL FOLDS AND PERIAREA TWICE DAILY 06/15/20162016 Inactive Generic For:MYCOSTATIN 100, 000 UNITS/GM PW 06/15/2016 12:28:26 PM fentanyl 100 mcg/hr transdermal patch RxNorm: 653473 1 Patch TD Q72H 06/05/2016 06/16/2016 Inactive hydrocodone 10 mg-acetaminophen 325 mg tablet RxNorm: 704649 1-2 Tablet(s) PO Q6 as needed 06/02/2016 06/16/2016 Inactive Probiotic Blend 2 million cell-50 mg capsule RxNorm: 1 Capsule(s) PO BID 05/13/2016 05/19/2016 Inactive nitrofurantoin 100 mg capsule RxNorm: 211036 1 Capsule(s) PO BID 05/13/2016 05/19/2016 Inactive nitrofurantoin 100 mg capsule RxNorm: 051535 1 Capsule(s) PO BID 05/13/2016 05/12/2016 Inactive fentanyl 75 mcg/hr transdermal patch RxNorm: 280720 1 Patch TD Q72H 05/13/2016 06/04/2016 Inactive Keflex 500 mg capsule RxNorm: 456434 1 Capsule(s) PO TID 201605/13/2016 Inactive Patient at [facility] Keflex 500 mg capsule RxNorm: 806208 1 Capsule(s) PO TID 201605/06/2016 Inactive hydrocodone 10 mg-acetaminophen 325 mg tablet RxNorm: 694390 1-2 Tablet(s) PO Q6 as needed 05/04/2016 06/01/2016 Inactive hydrochlorothiazide 25 mg tablet RxNorm: 279716 Tablet(s) GIVE 1 TABLET VIA PEG TUBE ONCE A DAY 04/29/2016 11/24/2016 Inactive hydrochlorothiazide 25 mg tablet RxNorm: 538403 GIVE 1 TABLET VIA PEG TUBE ONCE A DAY 04/22/2016 04/28/2016 Inactive Generic For:HYDRODIURIL 25 MG TABLET refill request fentanyl 75 mcg/hr transdermal patch RxNorm: 052023 1 Patch TD Q72H 04/17/2016 05/12/2016 Inactive Xarelto 20 mg tablet RxNorm: 4278882 TAKE 1 TABLET VIA PEG TUBE AT BEDTIME 04/16/2016 06/14/2016 Inactive 04/16/2016 9:08:52 AM citalopram 40 mg tablet RxNorm: 766731 1 Tablet(s) PO daily 02/201702/25/2017 Inactive citalopram 40 mg tablet RxNorm: 961570 1 Tablet(s) PO daily 08/201604/01/2016 Inactive hydrocodone 10 mg-acetaminophen 325 mg tablet RxNorm: 147265 1-2 Tablet(s) PO Q6 as needed 03/27/2016 04/25/2016 Inactive fentanyl 75 mcg/hr transdermal patch RxNorm: 018272 1 Patch TD Q72H 03/18/2016 04/16/2016 Inactive hydrocodone 10 mg-acetaminophen 325 mg tablet RxNorm: 060676 1-2 Tablet(s) PO Q6 as needed 03/11/2016 03/26/2016 Inactive citalopram 40 mg tablet RxNorm: 026747 1 Tablet(s) PO daily 03/26/2016 Inactive Levemir FlexTouch U-100 Insulin 100 unit/mL (3 mL) subcutaneous pen RxNorm: 579455 20 Unit(s) SQ BID 03/02/201611/2016 Inactive lisinopril 20 mg tablet RxNorm: 941252 1 Tablet(s) PO daily 08/201507/01/2016 Inactive Ativan 0.5 mg tablet RxNorm: 457860 1 Tablet(s) PO Q4H as needed 02/18/2016 04/14/2017 Inactive Xarelto 20 mg tablet RxNorm: 8649389 TAKE 1 TABLET VIA PEG TUBE AT BEDTIME 02/12/2016 04/11/2016 Inactive 02/12/2016 9:08:22 AM hydrocodone 10 mg-acetaminophen 325 mg tablet RxNorm: 312172 1-2 Tablet(s) PO Q6 as needed 02/12/2016 03/10/2016 Inactive fentanyl 75 mcg/hr transdermal patch RxNorm: 116498 1 Patch TD Q72H 02/11/2016 03/11/2016 Inactive citalopram 20 mg tablet RxNorm: 463052 1 Tablet(s) PO daily 10/201503/03/2016 Inactive fentanyl 75 mcg/hr transdermal patch RxNorm: 795003 1 TD Q72H 01/17/2016 02/10/2016 Inactive hydrocodone 10 mg-acetaminophen 325 mg tablet RxNorm: 434185 1-2 Tablet(s) PO Q6 as needed 01/07/2016 02/05/2016 Inactive fentanyl 50 mcg/hr transdermal patch RxNorm: 146588 1 TD Q72H 01/01/2016 01/16/2016 Inactive fentanyl 50 mcg/hr transdermal patch RxNorm: 574314 1 TD q 3 days 12/26/2015 12/31/2015 Inactive Xarelto 20 mg tablet RxNorm: 5007011 TAKE 1 TABLET VIA PEG TUBE AT BEDTIME 12/17/2015 02/11/2016 Inactive 12/16/2015 3:27:57 PM12/14/2015 9:45:17 AM hydrocodone 10 mg-acetaminophen 325 mg tablet RxNorm: 010784 1-2 Tablet(s) PO Q6 as needed 12/06/2015 01/04/2016 Inactive fentanyl 50 mcg/hr transdermal patch RxNorm: 414968 1 TD q 3 days 12/06/2015 12/25/2015 Inactive fentanyl 25 mcg/hr transdermal patch RxNorm: 459841 1 TD q 3 days 11/18/2015 12/05/2015 Inactive Zithromax Z-Eliu 250 mg tablet RxNorm: 515474 1 Tablet(s) PO UD 10/09/2015 02/26/2016 Inactive z pack as directed- please write out instructions- pt at [facility] nystatin 100,000 unit/gram topical powder RxNorm: 107966 APPLY TO UNDER BREASTS TWICE DAILY FOR YEAST SKIN INFECTION AND APPLY TO UNDERARM AND ABDOMINAL FOLDS AND PERIAREA TWICE DAILY 10/07/20152015 Inactive Generic For:MYCOSTATIN 100, 000 UNITS/GM PW 10/05/2015 12:07:35 PM fentanyl 25 mcg/hr transdermal patch RxNorm: 502261 1 TD q 3 days 10/03/2015 11/01/2015 Inactive fentanyl 25 mcg/hr transdermal patch RxNorm: 994281 1 TD q 3 days 09/27/2015 10/02/2015 Inactive fentanyl 25 mcg/hr transdermal patch RxNorm: 225639 1 TD q 3 days 09/17/2015 09/26/2015 Inactive fentanyl 25 mcg/hr transdermal patch RxNorm: 487232 1 TD q 3 days 08/30/2015 09/16/2015 Inactive hydrocodone 5 mg-acetaminophen 325 mg tablet RxNorm: 919373 1 Tablet(s) PO Q6 as needed 08/30/2015 09/28/2015 Inactive Diflucan 100 mg tablet RxNorm: 407836 1 Tablet(s) Miscellaneous per peg daily 07/29/2015 08/04/2015 Inactive fentanyl 25 mcg/hr transdermal patch RxNorm: 788625 1 TD q 3 days 07/18/2015 08/29/2015 Inactive hydrocodone 5 mg-acetaminophen 325 mg tablet RxNorm: 222341 1 Tablet(s) PO Q6 as needed 07/18/2015 08/29/2015 Inactive Diflucan 100 mg tablet RxNorm: 734614 1 Tablet(s) Miscellaneous per peg daily 06/17/2015 06/23/2015 Inactive Senna-S 8.6 mg-50 mg tablet RxNorm: 551252 1 Tablet(s) PO daily as needed constipation No Start Date Active Dulcolax (bisacodyl) 10 mg rectal suppository RxNorm: 035085 1 Suppository RTL daily as needed constipation No Start Date Active albuterol sulfate concentrate 5 mg/mL(0.5 %) solution for nebulization RxNorm: 567080 1 Vial INH daily as needed congestion No Start Date Active polyethylene glycol 3350 17 gram/dose oral powder RxNorm: 759509 17 Gram(s) PO daily as needed constipation No Start Date Active baclofen 10 mg tablet RxNorm: 431625 1 Tablet(s) PO TID No Start Date 09/30/2016 Inactive Ativan 0.5 mg tablet RxNorm: 347908 1 Tablet(s) PO Q4H as needed No Start Date 02/17/2016 Inactive ranitidine 150 mg tablet RxNorm: 580603 1 Tablet(s) PO daily No Start Date 08/24/2016 Inactive carvedilol 3.125 mg tablet RxNorm: 882747 1 Tablet(s) PO daily No Start Date 09/29/2016 Inactive citalopram 40 mg tablet RxNorm: 276680 1 Tablet(s) PO daily No Start Date 01/27/2016 Inactive Probiotic Blend oral RxNorm: oral No Start Date 05/12/2016 Inactive hydrochlorothiazide 25 mg tablet RxNorm: 874857 1 Tablet(s) PO daily No Start Date 04/21/2016 Inactive Levemir FlexTouch 100 unit/mL (3 mL) subcutaneous insulin pen RxNorm: 805338 10 Unit(s) SQ BID No Start Date 03/01/2016 Inactive Zithromax Z-Eliu 250 mg tablet RxNorm: 857514 1 Tablet(s) PO UD No Start Date 10/08/2015 Inactive z pack as directed- please write out instructions- pt at [facility] nystatin 100,000 unit/gram topical powder RxNorm: 778479 Gram(s) TOP BID as needed No Start Date 10/06/2015 Inactive pravastatin 40 mg tablet RxNorm: 171570 Tablet(s) PO daily No Start Date 04/14/2017 Inactive lorazepam 0.5 mg tablet RxNorm: 443910 1/2 Tablet(s) PO BID No Start Date 05/02/2017 Inactive Xarelto 20 mg tablet RxNorm: 8601377 1 Tablet(s) PO daily No Start Date 12/16/2015 Inactive fentanyl 25 mcg/hr transdermal patch RxNorm: 034857 1 TD q 3 days No Start Date 07/17/2015 Inactive lisinopril 20 mg tablet RxNorm: 052154 1 Tablet(s) PO daily No Start Date 02/24/2016 Inactive hydrocodone 5 mg-acetaminophen 325 mg tablet RxNorm: 150804 1 Tablet(s) PO Q6 as needed No Start Date 07/17/2015 Inactive citalopram 40 mg tablet RxNorm: 204371 1 Tablet(s) PO daily No Start Date 03/03/2016 Inactive hyoscyamine 0.125 mg disintegrating tablet RxNorm: 6374335 1-2 Tablet(s) PO Q8 as needed No [...] Code Item Item Code Result Date %Hba1C Fbx831 % HbA1c 66590-4 5.5 % 11/04/2017 %Hba1C Ckf382 Gluc Ave 111 mg/dL 11/04/2017 Culture Urine [id number] URINE CULTURE SEE NOTES 10/04/2017 Culture Urine [id number] Continued Results 10/04/2017 Urine Culture Ucult Complete [...] Ord28 U-Com Culture to follow 10/01/2017 B12 Fvb362 B12 >1500.00 pg/ml 02/19/2017 Cbc With Differential [...] 31.5 pg 02/02/2017 Cbc With Differential Ord2 Dawes% 8.3 % 02/02/2017 Cbc With Differential Ord2 [...] 2.28 K/ul 02/02/2017 Cbc With Differential Ord2 [place] ABS# 0.6 K/ul 02/02/2017 Cbc With Differential Ord2 Eos ABS# 0.4 K/ul 02/02/2017 Cbc With Differential Ord2 Baso ABS# 0.0 K/ul 02/02/2017 %Hba1C Fex226 % HbA1c 26375-2 5.2 % 02/02/2017 %Hba1C Fsy766 Gluc Ave 103 mg/dL 02/02/2017 Comp Metabolic Gjc739 NA 138 mEq/L 02/02/2017 Comp Metabolic Roy660 K 4.5 mEq/L 02/02/2017 Comp Metabolic Ykm404 CL 98 mEq/L 02/02/2017 Comp Metabolic Flb288 CO2 37.0 mEq/L 02/02/2017 Comp Metabolic Pmu734 ANION GAP 8 02/02/2017 Comp Metabolic Oto570 GLUCOSE 94 mg/dL 02/02/2017 Comp Metabolic Ogz500 Creat 0.7 mg/dL 02/02/2017 Comp Metabolic Srt660 eGFR 88 ml/min/1.73m2 02/02/2017 Comp Metabolic Nfw135 BUN 36 mg/dL 02/02/2017 Comp Metabolic Anu085 B/C Ratio 50.7 Ratio 02/02/2017 Comp Metabolic Vhl426 CALCIUM 9.0 mg/dL 02/02/2017 Comp Metabolic Xqt013 ALK PHOS 78 U/L 02/02/2017 Comp Metabolic Mgi802 AST(SGOT) 22 U/L 02/02/2017 Comp Metabolic Oxp380 ALT(SGPT) 28 U/L 02/02/2017 Comp Metabolic Mkq538 BILI T 0.3 mg/dL 02/02/2017 Comp Metabolic Wve852 ALBUMIN 3.3 g/dL 02/02/2017 Comp Metabolic Hni755 TPRO 5.9 g/dL 02/02/2017 Comp Metabolic Zxv377 GLOB 2.6 g/dL 02/02/2017 Comp Metabolic Hbd158 A/G Ratio 1.3 Ratio 02/02/2017 Comp Metabolic Vsh161 Osmo 284 mOsmo 02/02/2017 %Hba1C Xfi021 % HbA1c 80025-0 5.0 % 10/29/2016 %Hba1C Fdo836 Gluc Ave 97 mg/dL 10/29/2016 Culture Urine [id number] URINE CULTURE SEE NOTES 09/21/2016 Culture Urine [id number] Continued Results 09/21/2016 Urine Culture Ucult Complete [...] 32.4 pg 07/30/2016 Cbc With Differential Ord2 Dawes% 7.2 % 07/30/2016 Cbc With Differential Ord2 [...] 2.69 K/ul 07/30/2016 Cbc With Differential Ord2 Dawes ABS# 0.5 K/ul 07/30/2016 Cbc With Differential Ord2 Eos ABS# 0.5 K/ul 07/30/2016 Cbc With Differential Ord2 Baso ABS# 0.0 K/ul 07/30/2016 Comp Metabolic Xxk102 NA 141 mEq/L 07/30/2016 Comp Metabolic Ygk461 K 4.3 mEq/L 07/30/2016 Comp Metabolic Eav438 CL 100 mEq/L 07/30/2016 Comp Metabolic Bfi737 CO2 33.0 mEq/L 07/30/2016 Comp Metabolic Yrv187 ANION GAP 12 07/30/2016 Comp Metabolic Ifa553 GLUCOSE 64 mg/dL 07/30/2016 Comp Metabolic Gmy110 Creat 0.5 mg/dL 07/30/2016 Comp Metabolic Qnr388 eGFR 126 ml/min/1.73m2 07/30/2016 Comp Metabolic Dve419 BUN 25 mg/dL 07/30/2016 Comp Metabolic Uhj121 B/C Ratio 48.1 Ratio 07/30/2016 Comp Metabolic Tpa489 CALCIUM 8.9 mg/dL 07/30/2016 Comp Metabolic Tzj283 ALK PHOS 90 U/L 07/30/2016 Comp Metabolic Jqg297 AST(SGOT) 22 U/L 07/30/2016 Comp Metabolic Fyy101 ALT(SGPT) 36 U/L 07/30/2016 Comp Metabolic Vki193 BILI T 0.3 mg/dL 07/30/2016 Comp Metabolic Dbn912 ALBUMIN 3.4 g/dL 07/30/2016 Comp Metabolic Cul934 TPRO 6.0 g/dL 07/30/2016 Comp Metabolic Afr731 GLOB 2.7 g/dL 07/30/2016 Comp Metabolic Oau177 A/G Ratio 1.3 Ratio 07/30/2016 Comp Metabolic Yde142 Osmo 284 mOsmo 07/30/2016 A1C Frequency Apc324 A1CF 07296-8 Last A1C performed at [facility] [place] on: 05-12-2016 07/30/2016 %Hba1C Qxu971 % HbA1c 46059-1 5.2 % 05/12/2016 %Hba1C Lby110 Gluc Ave 103 mg/dL 05/12/2016 Culture Urine [id number] URINE CULTURE SEE NOTES 05/11/2016 Urine Culture [...] U-Com Culture to follow 05/06/2016 Culture Urine [id number] URINE CULTURE SEE NOTES 03/17/2016 Culture Urine [id number] Continued Results 03/17/2016 Urine Culture Ucult Complete [...] 32.0 pg 02/11/2016 Cbc With Differential Ord2 Dawes% 9.1 % 02/11/2016 Cbc With Differential Ord2 [...] 2.59 K/ul 02/11/2016 Cbc With Differential Ord2 Dawes ABS# 0.6 K/ul 02/11/2016 Cbc With Differential Ord2 Eos ABS# 0.3 K/ul 02/11/2016 Cbc With Differential Ord2 Baso ABS# 0.0 K/ul 02/11/2016 Comp Metabolic Nzs909 NA 137 mEq/L 02/11/2016 Comp Metabolic Gyv892 K 4.4 mEq/L 02/11/2016 Comp Metabolic Jqn523 CL 100 mEq/L 02/11/2016 Comp Metabolic Nwv980 CO2 25.0 mEq/L 02/11/2016 Comp Metabolic Niy000 ANION GAP 16 02/11/2016 Comp Metabolic Xgw077 GLUCOSE 99 mg/dL 02/11/2016 Comp Metabolic Qzf874 Creat 0.6 mg/dL 02/11/2016 Comp Metabolic And083 eGFR 99 ml/min/1.73m2 02/11/2016 Comp Metabolic Gan412 BUN 27 mg/dL 02/11/2016 Comp Metabolic Hxz122 B/C Ratio 42.2 Ratio 02/11/2016 Comp Metabolic Adn939 CALCIUM 9.2 mg/dL 02/11/2016 Comp Metabolic Nho234 ALK PHOS 74 U/L 02/11/2016 Comp Metabolic Gap769 AST(SGOT) 24 U/L 02/11/2016 Comp Metabolic Tol724 ALT(SGPT) 26 U/L 02/11/2016 Comp Metabolic Xay215 BILI T 0.5 mg/dL 02/11/2016 Comp Metabolic Wil887 ALBUMIN 3.5 g/dL 02/11/2016 Comp Metabolic Ykv023 TPRO 6.2 g/dL 02/11/2016 Comp Metabolic Xri251 GLOB 2.7 g/dL 02/11/2016 Comp Metabolic Pkk896 A/G Ratio 1.3 Ratio 02/11/2016 Comp Metabolic Xsm672 Osmo 279 mOsmo 02/11/2016 Review of Systems [...] Code : 8480-6 BMI: 31.4 Code : 73363-5 Heart Rate 1 : 72 bpm Height: 5'1" Weight: 166 lbs 06/17/2015 Blood Pressure 1: 110/78 Code : 8480-6 BMI: 33.3 Code : 60716-7 Heart Rate 1 : 74 bpm Height: [...] Present Encounters Encounter Performer Location Codes Date [id number]) [id number] EST. PATIENT, LEVEL IV Diagnosis: Essential (primary) hypertension[ICD10: I10] Diagnosis: Type 2 diabetes mellitus without complications[ICD10: E11.9] Carlyn Everett MD, [facility] CPT-4: 22500 2017 11116 [id number] EST. PATIENT, LEVEL IV Diagnosis: Type 2 diabetes mellitus with hyperglycemia[ICD10: E11.65] Diagnosis: Essential (primary) hypertension[ICD10: I10] Diagnosis: Pain in left shoulder[ICD10: M25.512] Diagnosis: Pain in right shoulder[ICD10: M25.511] Diagnosis: Pain in left knee[ICD10: M25.562] Diagnosis: Pain in right knee[ICD10: M25.561] Vonda Everett MD, [facility] CPT-4: 47826 09/09/2017 11308 EST. PATIENT, LEVEL IV Diagnosis: Essential (primary) hypertension[ICD10: I10] Diagnosis: Type 2 diabetes mellitus with hyperglycemia[ICD10: E11.65] Diagnosis: Low back pain[ICD10: M54.5] Sunitha Everett MD, [facility] CPT-4 : 22974 06/08/2017 ([id number] [id number] EST. PATIENT, LEVEL IV Diagnosis: Essential (primary) hypertension[ICD10: I10] Diagnosis: Type 2 diabetes mellitus with hyperglycemia[ICD10: E11.65] Diagnosis: Low back pain[ICD10: M54.5] Sunitha Everett MD, [facility] CPT-4 : 96161 04/15/2017 [id number]) 02126 EST. PATIENT, LEVEL IV Diagnosis: Essential (primary) hypertension[ICD10: I10] Diagnosis: Type 2 diabetes mellitus with hyperglycemia[ICD10: E11.65] Diagnosis: Low back pain[ICD10: M54.5] Vonda Everett MD, [facility] CPT- 4: 36096 02/16/2017 51654 EST. 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 09/09/2017 [facility]ment[facility] [phone] [facility] (15 min) Moderate 09/09/2017 Patient Education: [...] and PRN pain medications - will have skilled nursing fax over PRN medication administration record. 06/08/2017 App[facility]ment[facility] [phone] [id number] (30 min) Complex 06/08/2017 Patient Education: Patient [...] over-medication. 04/15/2017 Appointment: [facility] [phone] [id number] (30 min) Complex 04/15/2017 Patient Education: Patient [...] today. 02/16/2017 [facility]ment[facility] [phone] [facility] [place] (15 min) Moderate 02/16/2017 Patient Education: [...] concerns. 11/09/2016 App[facility]ment[facility] [phone] [id number] (30 min) Complex 11/09/2016 Patient Education: Patient Medication Summary Completed 11/09/2016 Care Plan: Referral Order SNOMED-CT : [id number] Pending 11/09/2016 Patient Education: Patient Medication Summary [...] Follow up weight in 1 month Neck rupr-lqcyosjjzjw-Veka PT focus neck/upper body Right earache-cerumen removed with water pick today in the office 07/18/2015 Appointment: (30 min) Complex 07/18/2015 Patient Education: Patient Medication Summary Completed 07/18/2015 Patient Education: Obesity Completed 07/18/2015 Patient Education: .Cervicalgia Neck Pain Completed 07/18/2015 [facility] [phone] [id number] Referral Completed 06/25/2015 Visit Plan: Hypertension [...] normal liver response to medications. referral to [facility] physical and occupational therapy for post stroke - left sided weakness, neck stiffness, upper extremity weakness Diabetes Mellitus - controlled - per family report - check labs this week, get report from and [facility]. I spent over an hour with the patient in direct contact. 06/17/2015 App[facility]ment: [facility] [phone] [facility] [facility] Patient 06/17/2015 Patient Education: Patient Medication Summary Completed 06/17/2015 Patient Education: Obesity Completed 06/17/2015 Patient Education: Hypertension Completed 06/17/2015 Care Plan: Referral Order SNOMED-CT : [id number] Ordered 06/17/2015 Referral: Jorge Luis Carroll Referral Initiated Referral: [facility] [phone] [id number] Referral Appointment Requested Instructions Comment . [...] normal liver response to medications. referral to [facility] physical and occupational therapy for post stroke - left sided weakness, neck stiffness, upper extremity weakness Diabetes Mellitus - controlled - per family report - check labs this week, get report from and [facility]. I spent over an hour with the patient in direct contact. . PEG tube - tube has not been replaced in some time, some mild irritation noted around the tube - will refer to surgeon for PEG tube replacement. Pt/family is to notify clinic with any changes, questions, or concerns. Add 1 scoop of whey protein from [facility] to 2 feedings per day . [...] Follow up weight in 1 month Neck wezj-uofalbgzkzd-Dwos PT focus neck/upper body Right earache-cerumen removed [...] and PRN pain medications - will have skilled nursing fax over PRN medication administration record. . [...]
--- OUTSIDE RECORDS SUMMARY | 2017-12-16 14:25 | XMS REPORT | CCD ---
Author Author [facility]onda [facility]rett Organization [facility] Address [address] [place] [address] Phone Care Team Providers [employer] Sales Representative Name Role Phone PP Unavailable CCM Unavailable Summary Purpose Interface Exchange Insurance Providers Payer name Policy type / Coverage type Covered green party ID Effective Begin Date Effective End Date WPS Medicare Part B Medicare Part B [id number] Unknown Unknown [employer] Medicare Part B [id number] Unknown Unknown Family history Father Diagnosis Age At Onset Arthritis Unknown Hypertension Unknown Mother Diagnosis Age At Onset Diabetes mellitus Type 2 Unknown Depression Unknown Arthritis Unknown Stroke Unknown Hypertension Unknown Sister Diagnosis Age At Onset Colon cancer Unknown Social History Social History Element Codes Description Effective Dates Living arrangements Unknown Detention [facility] 04/15/2017 Marital status Unknown Anothony 06/17/2015 Number of children Unknown 3 06/17/2015 Employment Unknown Retired 06/17/[address]: 9636736 Quit over 10 years ago 15+ 06/17/[address]: 135882772 Never drinks alcohol 06/17/2015 Allergies, Adverse Reactions, Alerts Substance Reaction Codes Entered Date Inactivated Date Status MORPHINE SULFATE emesis, RxNorm: 7052 06/17/2015 No Inactive Date Active Past Medical History Illness Codes Condition Status Onset Date Resolved Date Essential (primary) hypertension ICD-9: 401.9 ICD-10: I10 [...] ICD-9: 250.02 ICD-10: E11.65 Active 06/16/2015 Unknown Low back pain ICD-9: 724.2 ICD-10: [...] Problems Condition Codes Effective Dates Condition Status Essential (primary) hypertension ICD-9: 401.9 ICD-10: I10 07/17/2015 Active Pain in left knee ICD- 9: 719.46 ICD-10: M25.562 09/09/2017 Active Pain in left shoulder ICD-9: 719.41 ICD-10: M25.512 09/09/2017 Active Pain in right knee ICD -9: 719.46 ICD-10: M25.561 09/09/2017 Active Pain in right shoulder ICD-9: 719.41 ICD-10: M25.511 09/09/2017 Active Type 2 diabetes mellitus with hyperglycemia ICD-9: 250.02 ICD-10: E11.65 06/16/2015 Active Low back pain ICD-9: 724.2 ICD-10: [...] hydrocodone 10 mg-acetaminophen 325 mg tablet RxNorm: 394730 2 Tablet(s) PO scheduled TID and 1 tab q 4 as needed 11/09/2017 No Stop Date Active Not to exceed 3gm/24hr acetaminophen fentanyl 100 mcg/hr transdermal patch RxNorm: 854760 1 Patch TD Q72H 2017 12/07/2017 Active hyoscyamine 0.125 mg disintegrating tablet RxNorm: 6127652 1-2 Tablet(s) PO Q8 as needed 11/03/2017 No Stop Date Active carvedilol 3.125 mg tablet RxNorm: 798326 GIVE 1 TABLET VIA PEG TUBE 2 TIMES A DAY 10/22/2017 01/19/2018 Active Generic For:COREG 3.125MG 10/22/2017 9:23:30 AM hydrocodone 10 mg-acetaminophen 325 mg tablet RxNorm: 243980 2 Tablet(s) PO scheduled TID and 1 tab q 4 as needed 10/22/2017 2017 Inactive Not to exceed 3gm/24hr acetaminophen Duragesic 75 mcg/hr transdermal patch RxNorm: 558133 1 Patch TD Q72H 10/20/2017 No Stop Date Active fentanyl 100 mcg/hr transdermal patch RxNorm: 773667 1 Patch TD Q72H 10/20/2017 11/07/2017 Inactive lorazepam 0.5 mg tablet RxNorm: 354105 1 Tablet(s) PO BID and 1 tab q 6 hours prn 10/18/2017 No Stop Date Active baclofen 10 mg tablet RxNorm: 955794 TAKE 1 TABLET THREE TIMES DAILY VIA STOMACH TUBE 10/07/2017 03/05/2018 Active 10/07/2017 5:36:15 PM 10/07/2017 5:36:13 PM N O T I C E Last quantity doesn't match original quantity cranberry extract 500 mg tablet RxNorm: 3833474 1 Tablet(s) PO QAM 10/04/2017 01/31/2018 Active Cipro 500 mg tablet RxNorm: 465740 1 Tablet(s) PO BID 201710/03/2017 Inactive dc keflex hydrocodone 10 mg-acetaminophen 325 mg tablet RxNorm: 391714 2 Tablet(s) PO scheduled TID as needed 10/04/20172017 Inactive Not to exceed 3gm/24hr acetaminophen cranberry extract 500 mg tablet RxNorm: 0316536 1 Tablet(s) PO QAM 10/04/2017 10/03/2017 Inactive Cipro 500 mg tablet RxNorm: 752748 1 Tablet(s) PO BID 201710/10/2017 Inactive dc keflex Duragesic 75 mcg/hr transdermal patch RxNorm: 148282 1 Patch TD Q72H 09/20/2017 10/19/2017 Inactive fentanyl 100 mcg/hr transdermal patch RxNorm: 485978 1 Patch TD Q72H 09/20/2017 10/19/2017 Inactive hyoscyamine 0.125 mg disintegrating tablet RxNorm: 8712988 1 Tablet(s) PO TID and 1 Tablet Q4H prn increased secretions 09/15/2017 11/02/2017 Inactive hydrocodone 10 mg-acetaminophen 325 mg tablet RxNorm: 545751 2 Tablet(s) PO scheduled TID and 1-2 Tabs Q4H PRN pain 09/15/2017 10/03/2017 Inactive Not to exceed 3gm/24hr acetaminophen lorazepam 0.5 mg tablet RxNorm: 888900 1 Tablet(s) PO BID 09/1510/17/2017 Inactive Lexapro 10 mg tablet RxNorm: 124888 1 Tablet(s) PO daily 201709/14/2017 Inactive Levemir FlexTouch U-100 Insulin 100 unit/mL (3 mL) subcutaneous pen RxNorm: 037363 10 Unit(s) daily 09/09/201709/15 Inactive lisinopril 10 mg tablet RxNorm: 779024 1 Tablet(s) PO daily 06/05/2018 Active Duragesic 75 mcg/hr transdermal patch RxNorm: 354315 1 Patch TD Q72H 09/09/2017 09/19/2017 Inactive nystatin 100,000 unit/gram topical cream RxNorm: 199560 1 Gram(s) TOP TID until healed to gaulding 09/06/2017 01/03/2018 Active nystatin 100,000 unit/gram topical cream RxNorm: 109199 1 Gram(s) TOP TID until healed to gaulding 09/06/2017 09/05/2017 Inactive hydrocodone 10 mg-acetaminophen 325 mg tablet RxNorm: 683848 2 Tablet(s) PO scheduled TID as needed 08/31/20172017 Inactive Not to exceed 3gm/24hr acetaminophen fentanyl 100 mcg/hr transdermal patch RxNorm: 149740 1 Patch TD Q72H 08/24/2017 09/19/2017 Inactive fentanyl 50 mcg/hr transdermal patch RxNorm: 495707 1 Patch TD Q72H 08/24/2017 09/08/2017 Inactive fentanyl 25 mcg/hr transdermal patch RxNorm: 912416 1 Patch TD Q72H 08/24/2017 08/24/2017 Inactive hyoscyamine 0.125 mg disintegrating tablet RxNorm: 9148329 Tablet(s) 1-2 Tablet(s ) PO Q8 as needed 08/23/2017 09/14/2017 Inactive hydrocodone 10 mg-acetaminophen 325 mg tablet RxNorm: 345055 1 Tablet(s) PO scheduled TID et Q6 hours as needed 08/18/2017 08/30/2017 Inactive Not to exceed 3gm/24hr acetaminophen hydrochlorothiazide 25 mg tablet RxNorm: 379494 GIVE 1 TABLET VIA PEG TUBE ONCE DAILY 08/17/2017 02/12/2018 Active Generic For:HYDRODIURIL 25 MG TABLET 2017 9:01:54 AM08/11/2017 10:12:00 AM lorazepam 0.5 mg tablet RxNorm: 990239 1/2 Tablet(s) PO BID 09/14/2017 Inactive fentanyl 100 mcg/hr transdermal patch RxNorm: 748066 1 Patch TD Q72H 07/26/2017 08/23/2017 Inactive fentanyl 25 mcg/hr transdermal patch RxNorm: 427920 1 Patch TD Q72H 07/26/2017 08/23/2017 Inactive hydrocodone 10 mg-acetaminophen 325 mg tablet RxNorm: 404526 1 Tablet(s) PO scheduled TID et Q6 hours as needed 07/16/2017 08/14/2017 Inactive Not to exceed 3gm/24hr acetaminophen hyoscyamine 0.125 mg disintegrating tablet RxNorm: 7205429 Tablet(s) 1-2 Tablet(s ) PO Q8 as needed 07/13/2017 08/01/2017 Inactive baclofen 10 mg tablet RxNorm: 340360 TAKE 1 TABLET THREE TIMES DAILY VIA STOMACH TUBE 07/12/2017 10/06/2017 Inactive 07/12/2017 9:04:08 AM N O T I C E Last quantity doesn't match original quantity lorazepam 0.5 mg tablet RxNorm: 573055 1/2 Tablet(s) PO BID 08/02/2017 Inactive fentanyl 100 mcg/hr transdermal patch RxNorm: 843733 1 Patch TD Q72H 06/28/2017 07/25/2017 Inactive fentanyl 25 mcg/hr transdermal patch RxNorm: 375114 1 Patch TD Q72H 06/28/2017 07/25/2017 Inactive hyoscyamine 0.125 mg disintegrating tablet RxNorm: 6874329 Tablet(s) 1-2 Tablet(s ) PO Q8 as needed 06/03/2017 06/22/2017 Inactive fentanyl 25 mcg/hr transdermal patch RxNorm: 081206 1 Patch TD Q72H 05/26/2017 06/24/2017 Inactive Levemir FlexTouch U-100 Insulin 100 unit/mL (3 mL) subcutaneous pen RxNorm: 942643 20 Unit(s) SQ BID 05/26/2017 Inactive fentanyl 100 mcg/hr transdermal patch RxNorm: 583151 1 Patch TD Q72H 05/26/2017 06/24/2017 Inactive hydrocodone 10 mg-acetaminophen 325 mg tablet RxNorm: 343667 1 Tablet(s) PO scheduled BID et Q6 hours as needed 05/12/2017 05/11/2017 Inactive hydrocodone 10 mg-acetaminophen 325 mg tablet RxNorm: 942172 1 Tablet(s) PO scheduled TID et Q6 hours as needed 05/12/2017 06/10/2017 Inactive Not to exceed 3gm/24hr acetaminophen docusate sodium 100 mg tablet RxNorm: 8370996 1 Tablet(s) PO BID as needed if no bowel movement 05/10/2017 05/09/2017 Inactive lisinopril 20 mg tablet RxNorm: 540957 1 Tablet(s) PO daily 09/08/2017 Inactive docusate sodium 100 mg tablet RxNorm: 1498423 1 Tablet(s) PO BID as needed if no bowel movement 05/10/2017 09/14/2017 Inactive fentanyl 25 mcg/hr transdermal patch RxNorm: 196963 1 Patch TD Q72H 05/03/2017 05/25/2017 Inactive lorazepam 0.5 mg tablet RxNorm: 188118 1/2 Tablet(s) PO BID 02/201807/01/2017 Inactive fentanyl 100 mcg/hr transdermal patch RxNorm: 838984 1 Patch TD Q72H 04/27/2017 05/25/2017 Inactive Levemir FlexTouch 100 unit/mL (3 mL) subcutaneous insulin pen RxNorm: 598945 10 Unit(s) SQ BID 04/15/2017 No Stop Date Active carvedilol 3.125 mg tablet RxNorm: 212123 Tablet(s) GIVE 1 TABLET VIA PEG TUBE DAILY 04/15/2017 10/21/2017 Inactive hyoscyamine 0.125 mg disintegrating tablet RxNorm: 6002298 1-2 Tablet(s) PO Q8 as needed 04/14/2017 05/03/2017 Inactive hydrocodone 10 mg-acetaminophen 325 mg tablet RxNorm: 911756 1 Tablet(s) PO scheduled BID et Q6 hours as needed 04/13/2017 05/02/2017 Inactive baclofen 10 mg tablet RxNorm: 824401 TAKE 1 TABLET THREE TIMES DAILY VIA STOMACH TUBE 04/08/2017 05/22/2017 Inactive 04/08/2017 9:32:07 AM fentanyl 25 mcg/hr transdermal patch RxNorm: 729486 1 Patch TD Q72H 04/05/2017 05/02/2017 Inactive lidocaine 10 mg/mL (1 %) injection solution RxNorm: 6499634 1 Milliliter(s) Inj daily Mix with rocephin 03/31/20172017 Inactive Pt resides at [facility] lidocaine 10 mg/mL (1 %) injection solution RxNorm: 0093556 1 Milliliter(s) Inj daily Mix with rocephin 03/31/20172017 Inactive Pt resides at [facility] fentanyl 100 mcg/hr transdermal patch RxNorm: 950709 1 Patch TD Q72H 03/29/2017 04/26/2017 Inactive nystatin 100,000 unit/gram topical powder RxNorm: 060181 APPLY UNDER BREASTS TWICE DAILY FOR YEAST SKIN INFECTION AND APPLY TO UNDERARM AND ABDOMINAL FOLDS AND PERIAREA TWICE DAILY 03/29/20172017 Inactive 03/27/2017 9:12:50 AM nystatin 100,000 unit/gram topical powder RxNorm: 759829 APPLY UNDER BREASTS TWICE DAILY FOR YEAST SKIN INFECTION AND APPLY TO UNDERARM AND ABDOMINAL FOLDS AND PERIAREA TWICE DAILY 03/29/20172017 Inactive 03/29/2017 9:42:55 AM2017 9:12:50 AM hyoscyamine 0.125 mg disintegrating tablet RxNorm: 2771352 1-2 Tablet(s) PO Q8 as needed 03/08/2017 03/27/2017 Inactive fentanyl 25 mcg/hr transdermal patch RxNorm: 993831 1 Patch TD Q72H 03/02/2017 03/31/2017 Inactive hydrocodone 10 mg-acetaminophen 325 mg tablet RxNorm: 677308 1 Tablet(s) PO scheduled BID et Q6 hours as needed 02/17/2017 03/18/2017 Inactive fentanyl 100 mcg/hr transdermal patch RxNorm: 044276 1 Patch TD Q72H 02/17/2017 03/18/2017 Inactive Lexapro 10 mg tablet RxNorm: 717791 1 Tablet(s) PO daily 201604/14/2017 Inactive Lexapro 10 mg tablet RxNorm: 941030 1 Tablet(s) PO daily 201602/04/2017 Inactive fentanyl 25 mcg/hr transdermal patch RxNorm: 584977 1 Patch TD Q72H 02/04/2017 03/01/2017 Inactive cyanocobalamin (vit B-12) 1,000 mcg tablet RxNorm: 325876 1 Tablet(s) PO daily 01/18/2017 12/13/2017 Active hyoscyamine 0.125 mg disintegrating tablet RxNorm: 0799347 Tablet(s) 1-2 Tablet(s ) PO Q8 as needed 01/18/2017 02/06/2017 Inactive baclofen 10 mg tablet RxNorm: 762170 TAKE 1 TABLET THREE TIMES DAILY VIA STOMACH TUBE 01/04/2017 02/17/2017 Inactive 01/04/2017 9:25:18 AM fentanyl 100 mcg/hr transdermal patch RxNorm: 436889 1 Patch TD Q72H 12/25/2016 01/23/2017 Inactive hydrochlorothiazide 25 mg tablet RxNorm: 564307 Tablet(s) GIVE 1 TABLET VIA PEG TUBE ONCE A DAY 12/14/2016 07/11/2017 Inactive fentanyl 100 mcg/hr transdermal patch RxNorm: 846741 1 Patch TD Q72H 11/25/2016 12/24/2016 Inactive hyoscyamine 0.125 mg disintegrating tablet RxNorm: 9723987 Tablet(s) 1-2 Tablet(s ) PO Q8 as needed 11/25/2016 12/14/2016 Inactive nystatin 100,000 unit/gram topical powder RxNorm: 555888 APPLY UNDER BREASTS TWICE DAILY FOR YEAST SKIN INFECTION AND APPLY TO UNDERARM AND ABDOMINAL FOLDS AND PERIAREA TWICE DAILY 11/24/20162016 Inactive 11/24/2016 9:34:02 AM hydrocodone 10 mg-acetaminophen 325 mg tablet RxNorm: 904595 1 Tablet(s) PO scheduled BID et Q6 hours as needed 11/02/2016 12/01/2016 Inactive cyanocobalamin (vit B-12) 1,000 mcg tablet RxNorm: 306270 1 Tablet(s) PO daily 11/02/2016 01/17/2017 Inactive hyoscyamine 0.125 mg disintegrating tablet RxNorm: 7475230 1-2 Tablet(s) PO Q8 as needed 10/19/2016 11/24/2016 Inactive fentanyl 100 mcg/hr transdermal patch RxNorm: 254013 1 Patch TD Q72H 10/13/2016 11/11/2016 Inactive hydrocodone 10 mg-acetaminophen 325 mg tablet RxNorm: 729433 1 Tablet(s) PO scheduled BID et Q6 hours as needed 10/05/2016 11/01/2016 Inactive baclofen 10 mg tablet RxNorm: 444998 TAKE 1 TABLET THREE TIMES DAILY VIA STOMACH TUBE 10/01/2016 11/14/2016 Inactive 10/01/2016 9:24:37 AM carvedilol 3.125 mg tablet RxNorm: 654827 GIVE 1 TABLET VIA PEG TUBE 2 TIMES A DAY 09/30/2016 12/28/2016 Inactive Generic For:COREG 3.125MG 09/30/2016 1:12:28 PM09/25/2016 9:06:11 AM Probiotic Blend 2 million cell-50 mg capsule RxNorm: 1 Capsule(s) PO BID 09/17/2016 09/23/2016 Inactive Keflex 500 mg capsule RxNorm: 536868 1 Capsule(s) PO TID 201609/23/2016 Inactive hyoscyamine 0.125 mg/5 mL oral elixir RxNorm: 9134686 5 Milliliter(s) PO TID 09/08/2016 09/17/2016 Inactive hyoscyamine 0.125 mg/5 mL oral elixir RxNorm: 2583759 5 Milliliter(s) PO TID 09/08/2016 09/07/2016 Inactive hyoscyamine 0.125 mg disintegrating tablet RxNorm: 1928068 1-2 Tablet(s) PO Q8 as needed 09/07/2016 10/18/2016 Inactive fentanyl 100 mcg/hr transdermal patch RxNorm: 011451 1 Patch TD Q72H 09/01/2016 09/30/2016 Inactive ranitidine 150 mg tablet RxNorm: 856200 1 Tablet(s) PO BID 08/2016 No Stop Date Active hydrocodone 10 mg-acetaminophen 325 mg tablet RxNorm: 256827 1 Tablet(s) PO scheduled BID et Q6 hours as needed 08/24/2016 09/22/2016 Inactive cyanocobalamin (vit B-12) 1,000 mcg tablet RxNorm: 624544 1 Tablet(s) PO daily 08/12/2016 11/01/2016 Inactive cyanocobalamin (vit B-12) 1,000 mcg tablet RxNorm: 081573 1 Tablet(s) PO daily 08/12/2016 08/11/2016 Inactive hydrocodone 10 mg-acetaminophen 325 mg tablet RxNorm: 939930 1-2 Tablet(s) PO Q6 as needed 08/03/2016 08/17/2016 Inactive fentanyl 100 mcg/hr transdermal patch RxNorm: 268065 1 Patch TD Q72H 08/03/2016 08/31/2016 Inactive nystatin 100,000 unit/gram topical powder RxNorm: 357090 APPLY UNDER BREASTS TWICE DAILY FOR YEAST SKIN INFECTION AND APPLY TO UNDERARM AND ABDOMINAL FOLDS AND PERIAREA TWICE DAILY 07/17/20162016 Inactive 07/17/2016 3:56:54 PM fentanyl 100 mcg/hr transdermal patch RxNorm: 947680 1 Patch TD Q72H 07/15/2016 08/02/2016 Inactive lisinopril 20 mg tablet RxNorm: 503773 1 Tablet(s) PO daily 03/28/2017 Inactive hydrocodone 10 mg-acetaminophen 325 mg tablet RxNorm: 488103 1-2 Tablet(s) PO Q6 as needed 07/01/2016 07/15/2016 Inactive Xarelto 20 mg tablet RxNorm: 6865154 Tablet(s) TAKE 1 TABLET VIA PEG TUBE AT BEDTIME 06/19/2016 04/14/2017 Inactive fentanyl 100 mcg/hr transdermal patch RxNorm: 637291 1 Patch TD Q72H 06/17/2016 07/14/2016 Inactive nystatin 100,000 unit/gram topical powder RxNorm: 478327 APPLY TO UNDER BREASTS TWICE DAILY FOR YEAST SKIN INFECTION AND APPLY TO UNDERARM AND ABDOMINAL FOLDS AND PERIAREA TWICE DAILY 06/15/20162016 Inactive Generic For:MYCOSTATIN 100, 000 UNITS/GM PW 06/15/2016 12:28:26 PM fentanyl 100 mcg/hr transdermal patch RxNorm: 766405 1 Patch TD Q72H 06/05/2016 06/16/2016 Inactive hydrocodone 10 mg-acetaminophen 325 mg tablet RxNorm: 964471 1-2 Tablet(s) PO Q6 as needed 06/02/2016 06/16/2016 Inactive Probiotic Blend 2 million cell-50 mg capsule RxNorm: 1 Capsule(s) PO BID 05/13/2016 05/19/2016 Inactive nitrofurantoin 100 mg capsule RxNorm: 660252 1 Capsule(s) PO BID 05/13/2016 05/19/2016 Inactive nitrofurantoin 100 mg capsule RxNorm: 869706 1 Capsule(s) PO BID 05/13/2016 05/12/2016 Inactive fentanyl 75 mcg/hr transdermal patch RxNorm: 687895 1 Patch TD Q72H 05/13/2016 06/04/2016 Inactive Keflex 500 mg capsule RxNorm: 437802 1 Capsule(s) PO TID 201605/13/2016 Inactive Patient at [facility] Keflex 500 mg capsule RxNorm: 336183 1 Capsule(s) PO TID 201605/06/2016 Inactive hydrocodone 10 mg-acetaminophen 325 mg tablet RxNorm: 835246 1-2 Tablet(s) PO Q6 as needed 05/04/2016 06/01/2016 Inactive hydrochlorothiazide 25 mg tablet RxNorm: 008144 Tablet(s) GIVE 1 TABLET VIA PEG TUBE ONCE A DAY 04/29/2016 11/24/2016 Inactive hydrochlorothiazide 25 mg tablet RxNorm: 988269 GIVE 1 TABLET VIA PEG TUBE ONCE A DAY 04/22/2016 04/28/2016 Inactive Generic For:HYDRODIURIL 25 MG TABLET refill request fentanyl 75 mcg/hr transdermal patch RxNorm: 631203 1 Patch TD Q72H 04/17/2016 05/12/2016 Inactive Xarelto 20 mg tablet RxNorm: 8084347 TAKE 1 TABLET VIA PEG TUBE AT BEDTIME 04/16/2016 06/14/2016 Inactive 04/16/2016 9:08:52 AM citalopram 40 mg tablet RxNorm: 706978 1 Tablet(s) PO daily 02/201702/25/2017 Inactive citalopram 40 mg tablet RxNorm: 195610 1 Tablet(s) PO daily 08/201604/01/2016 Inactive hydrocodone 10 mg-acetaminophen 325 mg tablet RxNorm: 892872 1-2 Tablet(s) PO Q6 as needed 03/27/2016 04/25/2016 Inactive fentanyl 75 mcg/hr transdermal patch RxNorm: 287129 1 Patch TD Q72H 03/18/2016 04/16/2016 Inactive hydrocodone 10 mg-acetaminophen 325 mg tablet RxNorm: 604267 1-2 Tablet(s) PO Q6 as needed 03/11/2016 03/26/2016 Inactive citalopram 40 mg tablet RxNorm: 131050 1 Tablet(s) PO daily 03/26/2016 Inactive Levemir FlexTouch U-100 Insulin 100 unit/mL (3 mL) subcutaneous pen RxNorm: 834969 20 Unit(s) SQ BID 03/02/201611/2016 Inactive lisinopril 20 mg tablet RxNorm: 840846 1 Tablet(s) PO daily 08/201507/01/2016 Inactive Ativan 0.5 mg tablet RxNorm: 643169 1 Tablet(s) PO Q4H as needed 02/18/2016 04/14/2017 Inactive Xarelto 20 mg tablet RxNorm: 3073813 TAKE 1 TABLET VIA PEG TUBE AT BEDTIME 02/12/2016 04/11/2016 Inactive 02/12/2016 9:08:22 AM hydrocodone 10 mg-acetaminophen 325 mg tablet RxNorm: 000544 1-2 Tablet(s) PO Q6 as needed 02/12/2016 03/10/2016 Inactive fentanyl 75 mcg/hr transdermal patch RxNorm: 263813 1 Patch TD Q72H 02/11/2016 03/11/2016 Inactive citalopram 20 mg tablet RxNorm: 098113 1 Tablet(s) PO daily 10/201503/03/2016 Inactive fentanyl 75 mcg/hr transdermal patch RxNorm: 065285 1 TD Q72H 01/17/2016 02/10/2016 Inactive hydrocodone 10 mg-acetaminophen 325 mg tablet RxNorm: 639928 1-2 Tablet(s) PO Q6 as needed 01/07/2016 02/05/2016 Inactive fentanyl 50 mcg/hr transdermal patch RxNorm: 621864 1 TD Q72H 01/01/2016 01/16/2016 Inactive fentanyl 50 mcg/hr transdermal patch RxNorm: 450627 1 TD q 3 days 12/26/2015 12/31/2015 Inactive Xarelto 20 mg tablet RxNorm: 5962943 TAKE 1 TABLET VIA PEG TUBE AT BEDTIME 12/17/2015 02/11/2016 Inactive 12/16/2015 3:27:57 PM12/14/2015 9:45:17 AM hydrocodone 10 mg-acetaminophen 325 mg tablet RxNorm: 067192 1-2 Tablet(s) PO Q6 as needed 12/06/2015 01/04/2016 Inactive fentanyl 50 mcg/hr transdermal patch RxNorm: 352410 1 TD q 3 days 12/06/2015 12/25/2015 Inactive fentanyl 25 mcg/hr transdermal patch RxNorm: 863167 1 TD q 3 days 11/18/2015 12/05/2015 Inactive Zithromax Z-Eliu 250 mg tablet RxNorm: 687859 1 Tablet(s) PO UD 10/09/2015 02/26/2016 Inactive z pack as directed- please write out instructions- pt at [facility] nystatin 100,000 unit/gram topical powder RxNorm: 488176 APPLY TO UNDER BREASTS TWICE DAILY FOR YEAST SKIN INFECTION AND APPLY TO UNDERARM AND ABDOMINAL FOLDS AND PERIAREA TWICE DAILY 10/07/20152015 Inactive Generic For:MYCOSTATIN 100, 000 UNITS/GM PW 10/05/2015 12:07:35 PM fentanyl 25 mcg/hr transdermal patch RxNorm: 053245 1 TD q 3 days 10/03/2015 11/01/2015 Inactive fentanyl 25 mcg/hr transdermal patch RxNorm: 469251 1 TD q 3 days 09/27/2015 10/02/2015 Inactive fentanyl 25 mcg/hr transdermal patch RxNorm: 053543 1 TD q 3 days 09/17/2015 09/26/2015 Inactive fentanyl 25 mcg/hr transdermal patch RxNorm: 194772 1 TD q 3 days 08/30/2015 09/16/2015 Inactive hydrocodone 5 mg-acetaminophen 325 mg tablet RxNorm: 096213 1 Tablet(s) PO Q6 as needed 08/30/2015 09/28/2015 Inactive Diflucan 100 mg tablet RxNorm: 614768 1 Tablet(s) Miscellaneous per peg daily 07/29/2015 08/04/2015 Inactive fentanyl 25 mcg/hr transdermal patch RxNorm: 574992 1 TD q 3 days 07/18/2015 08/29/2015 Inactive hydrocodone 5 mg-acetaminophen 325 mg tablet RxNorm: 345832 1 Tablet(s) PO Q6 as needed 07/18/2015 08/29/2015 Inactive Diflucan 100 mg tablet RxNorm: 235051 1 Tablet(s) Miscellaneous per peg daily 06/17/2015 06/23/2015 Inactive Senna-S 8.6 mg-50 mg tablet RxNorm: 581288 1 Tablet(s) PO daily as needed constipation No Start Date Active Dulcolax (bisacodyl) 10 mg rectal suppository RxNorm: 698496 1 Suppository RTL daily as needed constipation No Start Date Active albuterol sulfate concentrate 5 mg/mL(0.5 %) solution for nebulization RxNorm: 764264 1 Vial INH daily as needed congestion No Start Date Active polyethylene glycol 3350 17 gram/dose oral powder RxNorm: 923675 17 Gram(s) PO daily as needed constipation No Start Date Active baclofen 10 mg tablet RxNorm: 279338 1 Tablet(s) PO TID No Start Date 09/30/2016 Inactive Ativan 0.5 mg tablet RxNorm: 812137 1 Tablet(s) PO Q4H as needed No Start Date 02/17/2016 Inactive ranitidine 150 mg tablet RxNorm: 948021 1 Tablet(s) PO daily No Start Date 08/24/2016 Inactive carvedilol 3.125 mg tablet RxNorm: 582465 1 Tablet(s) PO daily No Start Date 09/29/2016 Inactive citalopram 40 mg tablet RxNorm: 078294 1 Tablet(s) PO daily No Start Date 01/27/2016 Inactive Probiotic Blend oral RxNorm: oral No Start Date 05/12/2016 Inactive hydrochlorothiazide 25 mg tablet RxNorm: 398248 1 Tablet(s) PO daily No Start Date 04/21/2016 Inactive Levemir FlexTouch 100 unit/mL (3 mL) subcutaneous insulin pen RxNorm: 555899 10 Unit(s) SQ BID No Start Date 03/01/2016 Inactive Zithromax Z-Eliu 250 mg tablet RxNorm: 530212 1 Tablet(s) PO UD No Start Date 10/08/2015 Inactive z pack as directed- please write out instructions- pt at [facility] nystatin 100,000 unit/gram topical powder RxNorm: 755518 Gram(s) TOP BID as needed No Start Date 10/06/2015 Inactive pravastatin 40 mg tablet RxNorm: 490133 Tablet(s) PO daily No Start Date 04/14/2017 Inactive lorazepam 0.5 mg tablet RxNorm: 908630 1/2 Tablet(s) PO BID No Start Date 05/02/2017 Inactive Xarelto 20 mg tablet RxNorm: 3163445 1 Tablet(s) PO daily No Start Date 12/16/2015 Inactive fentanyl 25 mcg/hr transdermal patch RxNorm: 924190 1 TD q 3 days No Start Date 07/17/2015 Inactive lisinopril 20 mg tablet RxNorm: 803716 1 Tablet(s) PO daily No Start Date 02/24/2016 Inactive hydrocodone 5 mg-acetaminophen 325 mg tablet RxNorm: 170918 1 Tablet(s) PO Q6 as needed No Start Date 07/17/2015 Inactive citalopram 40 mg tablet RxNorm: 430554 1 Tablet(s) PO daily No Start Date 03/03/2016 Inactive hyoscyamine 0.125 mg disintegrating tablet RxNorm: 6634800 1-2 Tablet(s) PO Q8 as needed No Start Date 09/06/2016 Inactive Medication Administered No Medication Administered data Immunizations No Immunization data Assessments Condition Codes Effective Dates Pain in left knee ICD-10: M25.562 ICD-9: 719.46 09/09/2017 Pain in right knee ICD-10: M25.561 ICD-9: 719.46 09/09/2017 Essential (primary) hypertension ICD-10: I10 ICD-9: 401.9 09/09/2017 Pain in left shoulder ICD-10: M25.512 ICD-9: 719.41 09/09/2017 Pain in right shoulder ICD-10: M25.511 ICD-9: 719.41 09/09/2017 Type 2 diabetes mellitus with hyperglycemia ICD-10: E11.65 ICD-9: 250.02 09/09/2017 Low back pain ICD-10: M54.5 ICD-9: [...] cerebral infarction ICD-10: I69.322 ICD-9: 438.13 06/17/2015 Candidal esophagitis ICD-10: B37.81 ICD-9: 112.84 06/17/2015 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 ICD-9: 438.81 06/17/2015 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 ICD-9: 438.84 06/17/2015 Reason For Visit Reason For Visit Effective Dates Notes pain 09/09/2017 pain 06/08/2017 hypertension 04/15/2017 ~generic 02/16/2017 PEG tube ~generic 11/09/2016 PEG tube earache 07/18/2015 hypertension 06/17/2015 Results Observation Observation Code Item Item Code Result Date %Hba1C [id number] % HbA1c 61046-6 5.5 % 11/04/2017 %Hba1C Liv[address] Gluc Ave 111 mg/dL 11/04/2017 Culture Urine [id number] URINE CULTURE SEE NOTES 10/04/2017 Culture Urine [id number] Continued Results 10/04/2017 Urine Culture Ucult Complete [...] Ord28 U-Com Culture to follow 10/01/2017 B12 Vpy035 B12 >1500.00 pg/ml 02/19/2017 Cbc With Differential [...] 31.5 pg 02/02/2017 Cbc With Differential Ord2 Edwards% 8.3 % 02/02/2017 Cbc With Differential Ord2 [...] 2.28 K/ul 02/02/2017 Cbc With Differential Ord2 Edwards ABS# 0.6 K/ul 02/02/2017 Cbc With Differential Ord2 Eos ABS# 0.4 K/ul 02/02/2017 Cbc With Differential Ord2 Baso ABS# 0.0 K/ul 02/02/2017 Comp Metabolic Map571 NA 138 mEq/L 02/02/2017 Comp Metabolic Ujd210 K 4.5 mEq/L 02/02/2017 Comp Metabolic Zex193 CL 98 mEq/L 02/02/2017 Comp Metabolic Znv324 CO2 37.0 mEq/L 02/02/2017 Comp Metabolic Iey289 ANION GAP 8 02/02/2017 Comp Metabolic Fld055 GLUCOSE 94 mg/dL 02/02/2017 Comp Metabolic Mpx032 Creat 0.7 mg/dL 02/02/2017 Comp Metabolic Okn264 eGFR 88 ml/min/1.73m2 02/02/2017 Comp Metabolic Agy237 BUN 36 mg/dL 02/02/2017 Comp Metabolic Voa140 B/C Ratio 50.7 Ratio 02/02/2017 Comp Metabolic Oat609 CALCIUM 9.0 mg/dL 02/02/2017 Comp Metabolic Fyt999 ALK PHOS 78 U/L 02/02/2017 Comp Metabolic Qiw972 AST(SGOT) 22 U/L 02/02/2017 Comp Metabolic Uhe316 ALT(SGPT) 28 U/L 02/02/2017 Comp Metabolic Sdc769 BILI T 0.3 mg/dL 02/02/2017 Comp Metabolic Psb895 ALBUMIN 3.3 g/dL 02/02/2017 Comp Metabolic Poo980 TPRO 5.9 g/dL 02/02/2017 Comp Metabolic Rzj836 GLOB 2.6 g/dL 02/02/2017 Comp Metabolic Cbp166 A/G Ratio 1.3 Ratio 02/02/2017 Comp Metabolic Rhp663 Osmo 284 mOsmo 02/02/2017 %Hba1C Akt206 % HbA1c 21924-7 5.2 % 02/02/2017 %Hba1C Yfr643 Gluc Ave 103 mg/dL 02/02/2017 %Hba1C Auu889 % HbA1c 83660-2 5.0 % 10/29/2016 %Hba1C Gdw834 Gluc Ave 97 mg/dL 10/29/2016 Culture Urine [id number] URINE CULTURE SEE NOTES 09/21/2016 Culture Urine [id number] Continued Results 09/21/2016 Urine Culture Ucult Complete [...] 32.4 pg 07/30/2016 Cbc With Differential Ord2 Edwards% 7.2 % 07/30/2016 Cbc With Differential Ord2 [...] 2.69 K/ul 07/30/2016 Cbc With Differential Ord2 Edwards ABS# 0.5 K/ul 07/30/2016 Cbc With Differential Ord2 Eos ABS# 0.5 K/ul 07/30/2016 Cbc With Differential Ord2 Baso ABS# 0.0 K/ul 07/30/2016 A1C Frequency Srs629 A1CF 56796-1 Last A1C performed at the [facility] lab on: 05-12-2016 07/30/2016 Comp Metabolic Fpm943 NA 141 mEq/L 07/30/2016 Comp Metabolic Dox931 K 4.3 mEq/L 07/30/2016 Comp Metabolic Rqo701 CL 100 mEq/L 07/30/2016 Comp Metabolic Ufp110 CO2 33.0 mEq/L 07/30/2016 Comp Metabolic Yno347 ANION GAP 12 07/30/2016 Comp Metabolic Cuk459 GLUCOSE 64 mg/dL 07/30/2016 Comp Metabolic Xat427 Creat 0.5 mg/dL 07/30/2016 Comp Metabolic Rwg488 eGFR 126 ml/min/1.73m2 07/30/2016 Comp Metabolic Uca580 BUN 25 mg/dL 07/30/2016 Comp Metabolic Awj886 B/C Ratio 48.1 Ratio 07/30/2016 Comp Metabolic Rxf303 CALCIUM 8.9 mg/dL 07/30/2016 Comp Metabolic Qee704 ALK PHOS 90 U/L 07/30/2016 Comp Metabolic Toz331 AST(SGOT) 22 U/L 07/30/2016 Comp Metabolic Ixg609 ALT(SGPT) 36 U/L 07/30/2016 Comp Metabolic Dqg490 BILI T 0.3 mg/dL 07/30/2016 Comp Metabolic Pqz454 ALBUMIN 3.4 g/dL 07/30/2016 Comp Metabolic Goe035 TPRO 6.0 g/dL 07/30/2016 Comp Metabolic Pmt461 GLOB 2.7 g/dL 07/30/2016 Comp Metabolic Mxo460 A/G Ratio 1.3 Ratio 07/30/2016 Comp Metabolic Eju681 Osmo 284 mOsmo 07/30/2016 %Hba1C Jur416 % HbA1c 93227-6 5.2 % 05/12/2016 %Hba1C Vqi059 Gluc Ave 103 mg/dL 05/12/2016 Culture Urine [id number] URINE CULTURE SEE NOTES 05/11/2016 Urine Culture [...] U-Com Culture to follow 05/06/2016 Culture Urine [id number] URINE CULTURE SEE NOTES 03/17/2016 Culture Urine [id number] Continued Results 03/17/2016 Urine Culture Ucult Complete [...] 32.0 pg 02/11/2016 Cbc With Differential Ord2 Edwards% 9.1 % 02/11/2016 Cbc With Differential Ord2 [...] 2.59 K/ul 02/11/2016 Cbc With Differential Ord2 Edwards ABS# 0.6 K/ul 02/11/2016 Cbc With Differential Ord2 Eos ABS# 0.3 K/ul 02/11/2016 Cbc With Differential Ord2 Baso ABS# 0.0 K/ul 02/11/2016 Comp Metabolic Fco234 NA 137 mEq/L 02/11/2016 Comp Metabolic Pjp092 K 4.4 mEq/L 02/11/2016 Comp Metabolic Arb307 CL 100 mEq/L 02/11/2016 Comp Metabolic Ymq564 CO2 25.0 mEq/L 02/11/2016 Comp Metabolic Ufx892 ANION GAP 16 02/11/2016 Comp Metabolic Lom566 GLUCOSE 99 mg/dL 02/11/2016 Comp Metabolic Ihs518 Creat 0.6 mg/dL 02/11/2016 Comp Metabolic Mhg623 eGFR 99 ml/min/1.73m2 02/11/2016 Comp Metabolic Msj869 BUN 27 mg/dL 02/11/2016 Comp Metabolic Zsb137 B/C Ratio 42.2 Ratio 02/11/2016 Comp Metabolic Shp562 CALCIUM 9.2 mg/dL 02/11/2016 Comp Metabolic Mye444 ALK PHOS 74 U/L 02/11/2016 Comp Metabolic Mut745 AST(SGOT) 24 U/L 02/11/2016 Comp Metabolic Eey546 ALT(SGPT) 26 U/L 02/11/2016 Comp Metabolic Shm697 BILI T 0.5 mg/dL 02/11/2016 Comp Metabolic Klp674 ALBUMIN 3.5 g/dL 02/11/2016 Comp Metabolic Oqi042 TPRO 6.2 g/dL 02/11/2016 Comp Metabolic Pak520 GLOB 2.7 g/dL 02/11/2016 Comp Metabolic Car770 A/G Ratio 1.3 Ratio 02/11/2016 Comp Metabolic Eil965 Osmo 279 mOsmo 02/11/2016 Review of Systems [...] CPT-4: G8553 06/17/2015 Vital Signs Date Vital 09/09/2017 Blood Pressure 1: 118/62 Code : [...] Code : 8480-6 BMI: 31.4 Code : 41716-4 Heart Rate 1 : 72 bpm Height: 5'1" Weight: 166 lbs 06/17/2015 Blood Pressure 1: 110/78 Code : 8480-6 BMI: 33.3 Code : 15476-2 Heart Rate 1 : 74 bpm Height: 5'1" SpO2: 92% Weight: 176 lbs Functional Status No Functional Status data History of Present Illness Symptom Name Status Result Effective Date Notes pain Onset and Resolution ongoing 09/09/2017 None [...] Present Encounters Encounter Performer Location Codes Date 16722 EST. PATIENT, LEVEL IV Diagnosis: Type 2 diabetes mellitus with hyperglycemia[ICD10: E11.65] Diagnosis: Essential (primary) hypertension[ICD10: I10] Diagnosis: Pain in left shoulder[ICD10: M25.512] Diagnosis: Pain in right shoulder[ICD10: M25.511] Diagnosis: Pain in left knee[ICD10: M25.562] Diagnosis: Pain in right knee[ICD10: M25.561] Vonda Everett MD, [facility] CPT-4: 59896 09/09/2017 02281 EST. PATIENT, LEVEL IV Diagnosis: Essential (primary) hypertension[ICD10: I10] Diagnosis: Type 2 diabetes mellitus with hyperglycemia[ICD10: E11.65] Diagnosis: Low back pain[ICD10: M54.5] Sunitha Everett MD, [facility] CPT-4 : 32944 06/08/2017 ([id number]) 55275 EST. PATIENT, LEVEL IV Diagnosis: Essential (primary) hypertension[ICD10: I10] Diagnosis: Type 2 diabetes mellitus with hyperglycemia[ICD10: E11.65] Diagnosis: Low back pain[ICD10: M54.5] Sunitha Everett MD, [facility] CPT-4 : 59955 04/15/2017 ([id number]) 95009 EST. PATIENT, LEVEL IV Diagnosis: Essential (primary) hypertension[ICD10: I10] Diagnosis: Type 2 diabetes mellitus with hyperglycemia[ICD10: E11.65] Diagnosis: Low back pain[ICD10: M54.5] Vonda Everett MD, [facility] CPT- 4: 76491 02/16/2017 66885 EST. 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 09/09/2017 Appointment: Vonda Everett WPtel: [facility] [place] (15 min) Moderate 09/09/2017 Patient Education: Patient [...] and PRN pain medications - will have jail fax over PRN medication administration record. 06/08/2017 Appointment: [facility] ([facility] min) [facility] 06/08/2017 Patient Education: Patient Medication Summary Completed [...] of over-medication. 04/15/2017 [facility]ment: [phone] (30 min) Complex 04/15/2017 Patient Education: Patient [...] today. 02/16/2017 [phone] ([facility] min) Moderate 02/16/2017 Patient Education: Patient [...] or concerns. 11/09/2016 App[facility]ment: [phone] [facility] (30 min) Complex 11/09/2016 Patient Education: Patient Medication Summary Completed 11/09/2016 Care Plan: Referral Order SNOMED-CT : [id number] Pending 11/09/2016 Patient Education: Patient Medication Summary [...] Follow up weight in 1 month Neck yzgb-rxpmlzlcpny-Hgpj PT focus neck/upper body Right earache-cerumen removed with water pick today in the office 07/18/2015 Appointment: (30 min) Complex 07/18/2015 Patient Education: Patient Medication Summary Completed 07/18/2015 Patient Education: Obesity Completed 07/18/2015 Patient Education: .Cervicalgia Neck Pain Completed 07/18/2015 [phone] Ref[facility] Completed 06/25/2015 Visit Plan: Hypertension [...] normal liver response to medications. referral to [facility] for post stroke - left sided weakness, neck stiffness, upper extremity weakness Diabetes Mellitus - controlled - per family report - check labs this week, get report from and [facility]. I spent over an hour with the patient in direct contact. 06/17/2015 Appointment: [phone] [place] New Patient 06/17/2015 Patient Education: Patient Medication Summary Completed 06/17/2015 Patient Education: Obesity Completed 06/17/2015 Patient Education: Hypertension Completed 06/17/2015 Care Plan: Referral Order SNOMED-CT : [id number] Ordered 06/17/2015 Referral: Jorge Luis Carroll Referral Initiated [phone] [facility] [facility] Appointment Requested Instructions Comment . [...] normal liver response to medications. referral to [facility] for post stroke - left sided weakness, neck stiffness, upper extremity weakness Diabetes Mellitus - controlled - per family report - check labs this week, get report from and [facility]. I spent over an hour with the patient in direct contact. . PEG tube - tube has not been replaced in some time, some mild irritation noted around the tube - will refer to surgeon for PEG tube replacement. Pt/family is to notify clinic with any changes, questions, or concerns. Add 1 scoop of whey protein from C to 2 feedings per day . Hypertension [...] Follow up weight in 1 month Neck mkxa-bajudkzhhlv-Sqao PT focus neck/upper body Right earache-cerumen removed [...] and PRN pain medications - will have jail fax over PRN medication administration record. . [...]
--- NOTE | 2017-12-16 14:26 | OPERATIVE REPORT ---
DATE OF SERVICE: 12/16/2017 ATTENDING PRIMARY CARE PHYSICIAN: Dr. Everett. PREOPERATIVE DIAGNOSIS: Malfunctioning gastrostomy tube with right-sided hemispheric stroke. POSTOPERATIVE DIAGNOSIS: Malfunctioning gastrostomy tube with right-sided hemispheric stroke. PROCEDURE: Removal and replacement of gastrostomy tube with a MARLYS 22 gauge gastrostomy tube with an inflatable balloon. SURGEON: Marycarmen Andrew MD ANESTHESIA: None. ESTIMATED BLOOD LOSS: Minimal. FINDINGS: Of the previous gastrostomy tube, the inflatable balloon was eroded and the tube was nonfunctional. DISPOSITION: The patient tolerated the procedure well. 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 She had another stroke several years before; however, was able to recover from this one. Since her stroke, she has been in an aspiration risk and unable to tolerate adequate amounts of liquids, solids or medication per os. She has had a gastrostomy tube placed before in the past and this has also been removed and replaced over time. DESCRIPTION OF PROCEDURE: In the endoscopy holding area, the insertion site was cleaned and the previous gastrostomy tube was decompressed with a 10 mL syringe. The gastrostomy tube was pulled out intact. A replacement 22 gauge MARLYS gastrostomy tube was then placed through the tract immediately with no resistance and the balloon was insufflated with 10 mL of sterile water without any resistance. The rubber bolster on the end was then secured against the skin of the anterior abdominal wall after drain sponges were placed. The patient tolerated the procedure well. The gastrostomy tube may be accessed and used at any time. She may follow up with us at any time for maintenance. Job ID: [id number] DocumentID: [id number] Dictated Date: 12/16/2017 12:09:24 Head Greenskeeper Date: 12/16/2017 14:25:39 Dictated By: MARYCARMEN ANDREW MD [facility]
--- OUTSIDE RECORDS SUMMARY | 2017-12-16 14:28 | XMS REPORT | CCD ---
Author Author [facility] Organization [facility] Address [address] [place] [address] Phone Care Team Providers Care [place] Name Role Phone PP Unavailable CCM Unavailable Summary Purpose Interface Exchange Insurance Providers Payer name Policy type / Coverage type Covered democrat ID Effective Begin Date Effective End Date WPS Medicare Part B Medicare Part B [id number] Unknown Unknown [employer] Medicare Part B [id number] Unknown Unknown Family history Father Diagnosis Age At Onset Arthritis Unknown Hypertension Unknown Mother Diagnosis Age At Onset Diabetes mellitus Type 2 Unknown Depression Unknown Arthritis Unknown Stroke Unknown Hypertension Unknown Sister Diagnosis Age At Onset Colon cancer Unknown Social History Social History Element Codes Description Effective Dates Living arrangements Unknown [facility] 04/15/2017 Marital status Unknown Anothony 06/17/2015 Number of children Unknown 3 06/17/2015 Employment Unknown Retired 06/17/[address]: 2006938 Quit over 10 years ago 15+ 06/17/[address]: 080841702 Never drinks alcohol 06/17/2015 Allergies, Adverse Reactions, [...] Start Date Stop Date Status Fill Instructions fentanyl 100 mcg/hr transdermal patch RxNorm: 527168 1 Patch TD Q72H 2017 12/07/2017 Active hyoscyamine 0.125 mg disintegrating tablet RxNorm: 8121258 1-2 Tablet(s) PO Q8 as needed 11/03/2017 No Stop Date Active carvedilol 3.125 mg tablet RxNorm: 919458 GIVE 1 TABLET VIA PEG TUBE 2 TIMES A DAY 10/22/2017 01/19/2018 Active Generic For:COREG 3.125MG 10/22/2017 9:23:30 AM hydrocodone 10 mg-acetaminophen 325 mg tablet RxNorm: 510183 2 Tablet(s) PO scheduled TID and 1 tab q 4 as needed 10/22/2017 No Stop Date Active Not to exceed 3gm/24hr acetaminophen Duragesic 75 mcg/hr transdermal patch RxNorm: 518277 1 Patch TD Q72H 10/20/2017 No Stop Date Active fentanyl 100 mcg/hr transdermal patch RxNorm: 696730 1 Patch TD Q72H 10/20/2017 11/07/2017 Inactive lorazepam 0.5 mg tablet RxNorm: 375560 1 Tablet(s) PO BID and 1 tab q 6 hours prn 10/18/2017 No Stop Date Active baclofen 10 mg tablet RxNorm: 796409 TAKE 1 TABLET THREE TIMES DAILY VIA STOMACH TUBE 10/07/2017 03/05/2018 Active 10/07/2017 5:36:15 PM 10/07/2017 5:36:13 PM N O T I C E Last quantity doesn't match original quantity cranberry extract 500 mg tablet RxNorm: 4863679 1 Tablet(s) PO QAM 10/04/2017 01/31/2018 Active Cipro 500 mg tablet RxNorm: 020592 1 Tablet(s) PO BID 201710/03/2017 Inactive dc keflex hydrocodone 10 mg-acetaminophen 325 mg tablet RxNorm: 725854 2 Tablet(s) PO scheduled TID as needed 10/04/20172017 Inactive Not to exceed 3gm/24hr acetaminophen cranberry extract 500 mg tablet RxNorm: 7405049 1 Tablet(s) PO QAM 10/04/2017 10/03/2017 Inactive Cipro 500 mg tablet RxNorm: 753475 1 Tablet(s) PO BID 201710/10/2017 Inactive dc keflex Duragesic 75 mcg/hr transdermal patch RxNorm: 018522 1 Patch TD Q72H 09/20/2017 10/19/2017 Inactive fentanyl 100 mcg/hr transdermal patch RxNorm: 865783 1 Patch TD Q72H 09/20/2017 10/19/2017 Inactive hyoscyamine 0.125 mg disintegrating tablet RxNorm: 9706857 1 Tablet(s) PO TID and 1 Tablet Q4H prn increased secretions 09/15/2017 11/02/2017 Inactive hydrocodone 10 mg-acetaminophen 325 mg tablet RxNorm: 810469 2 Tablet(s) PO scheduled TID and 1-2 Tabs Q4H PRN pain 09/15/2017 10/03/2017 Inactive Not to exceed 3gm/24hr acetaminophen lorazepam 0.5 mg tablet RxNorm: 063321 1 Tablet(s) PO BID 09/1510/17/2017 Inactive Lexapro 10 mg tablet RxNorm: 886260 1 Tablet(s) PO daily 201709/14/2017 Inactive Levemir FlexTouch U-100 Insulin 100 unit/mL (3 mL) subcutaneous pen RxNorm: 875642 10 Unit(s) daily 09/09/201709/15 Inactive lisinopril 10 mg tablet RxNorm: 173883 1 Tablet(s) PO daily 06/05/2018 Active Duragesic 75 mcg/hr transdermal patch RxNorm: 094972 1 Patch TD Q72H 09/09/2017 09/19/2017 Inactive nystatin 100,000 unit/gram topical cream RxNorm: 899519 1 Gram(s) TOP TID until healed to gaulding 09/06/2017 01/03/2018 Active nystatin 100,000 unit/gram topical cream RxNorm: 512452 1 Gram(s) TOP TID until healed to gaulding 09/06/2017 09/05/2017 Inactive hydrocodone 10 mg-acetaminophen 325 mg tablet RxNorm: 790423 2 Tablet(s) PO scheduled TID as needed 08/31/20172017 Inactive Not to exceed 3gm/24hr acetaminophen fentanyl 100 mcg/hr transdermal patch RxNorm: 473094 1 Patch TD Q72H 08/24/2017 09/19/2017 Inactive fentanyl 50 mcg/hr transdermal patch RxNorm: 088231 1 Patch TD Q72H 08/24/2017 09/08/2017 Inactive fentanyl 25 mcg/hr transdermal patch RxNorm: 207263 1 Patch TD Q72H 08/24/2017 08/24/2017 Inactive hyoscyamine 0.125 mg disintegrating tablet RxNorm: 0591587 Tablet(s) 1-2 Tablet(s ) PO Q8 as needed 08/23/2017 09/14/2017 Inactive hydrocodone 10 mg-acetaminophen 325 mg tablet RxNorm: 993941 1 Tablet(s) PO scheduled TID et Q6 hours as needed 08/18/2017 08/30/2017 Inactive Not to exceed 3gm/24hr acetaminophen hydrochlorothiazide 25 mg tablet RxNorm: 904458 GIVE 1 TABLET VIA PEG TUBE ONCE DAILY 08/17/2017 02/12/2018 Active Generic For:HYDRODIURIL 25 MG TABLET 2017 9:01:54 AM08/11/2017 10:12:00 AM lorazepam 0.5 mg tablet RxNorm: 128957 1/2 Tablet(s) PO BID 09/14/2017 Inactive fentanyl 100 mcg/hr transdermal patch RxNorm: 018455 1 Patch TD Q72H 07/26/2017 08/23/2017 Inactive fentanyl 25 mcg/hr transdermal patch RxNorm: 459718 1 Patch TD Q72H 07/26/2017 08/23/2017 Inactive hydrocodone 10 mg-acetaminophen 325 mg tablet RxNorm: 109868 1 Tablet(s) PO scheduled TID et Q6 hours as needed 07/16/2017 08/14/2017 Inactive Not to exceed 3gm/24hr acetaminophen hyoscyamine 0.125 mg disintegrating tablet RxNorm: 0786325 Tablet(s) 1-2 Tablet(s ) PO Q8 as needed 07/13/2017 08/01/2017 Inactive baclofen 10 mg tablet RxNorm: 690083 TAKE 1 TABLET THREE TIMES DAILY VIA STOMACH TUBE 07/12/2017 10/06/2017 Inactive 07/12/2017 9:04:08 AM N O T I C E Last quantity doesn't match original quantity lorazepam 0.5 mg tablet RxNorm: 388740 1/2 Tablet(s) PO BID 08/02/2017 Inactive fentanyl 100 mcg/hr transdermal patch RxNorm: 642234 1 Patch TD Q72H 06/28/2017 07/25/2017 Inactive fentanyl 25 mcg/hr transdermal patch RxNorm: 252462 1 Patch TD Q72H 06/28/2017 07/25/2017 Inactive hyoscyamine 0.125 mg disintegrating tablet RxNorm: 0496943 Tablet(s) 1-2 Tablet(s ) PO Q8 as needed 06/03/2017 06/22/2017 Inactive fentanyl 25 mcg/hr transdermal patch RxNorm: 534506 1 Patch TD Q72H 05/26/2017 06/24/2017 Inactive Levemir FlexTouch U-100 Insulin 100 unit/mL (3 mL) subcutaneous pen RxNorm: 740094 20 Unit(s) SQ BID 05/26/2017 Inactive fentanyl 100 mcg/hr transdermal patch RxNorm: 267083 1 Patch TD Q72H 05/26/2017 06/24/2017 Inactive hydrocodone 10 mg-acetaminophen 325 mg tablet RxNorm: 292550 1 Tablet(s) PO scheduled BID et Q6 hours as needed 05/12/2017 05/11/2017 Inactive hydrocodone 10 mg-acetaminophen 325 mg tablet RxNorm: 506638 1 Tablet(s) PO scheduled TID et Q6 hours as needed 05/12/2017 06/10/2017 Inactive Not to exceed 3gm/24hr acetaminophen docusate sodium 100 mg tablet RxNorm: 2828974 1 Tablet(s) PO BID as needed if no bowel movement 05/10/2017 05/09/2017 Inactive lisinopril 20 mg tablet RxNorm: 967299 1 Tablet(s) PO daily 09/08/2017 Inactive docusate sodium 100 mg tablet RxNorm: 1858020 1 Tablet(s) PO BID as needed if no bowel movement 05/10/2017 09/14/2017 Inactive fentanyl 25 mcg/hr transdermal patch RxNorm: 014224 1 Patch TD Q72H 05/03/2017 05/25/2017 Inactive lorazepam 0.5 mg tablet RxNorm: 256244 1/2 Tablet(s) PO BID 02/201807/01/2017 Inactive fentanyl 100 mcg/hr transdermal patch RxNorm: 638910 1 Patch TD Q72H 04/27/2017 05/25/2017 Inactive Levemir FlexTouch 100 unit/mL (3 mL) subcutaneous insulin pen RxNorm: 877500 10 Unit(s) SQ BID 04/15/2017 No Stop Date Active carvedilol 3.125 mg tablet RxNorm: 942248 Tablet(s) GIVE 1 TABLET VIA PEG TUBE DAILY 04/15/2017 10/21/2017 Inactive hyoscyamine 0.125 mg disintegrating tablet RxNorm: 8602371 1-2 Tablet(s) PO Q8 as needed 04/14/2017 05/03/2017 Inactive hydrocodone 10 mg-acetaminophen 325 mg tablet RxNorm: 113583 1 Tablet(s) PO scheduled BID et Q6 hours as needed 04/13/2017 05/02/2017 Inactive baclofen 10 mg tablet RxNorm: 843433 TAKE 1 TABLET THREE TIMES DAILY VIA STOMACH TUBE 04/08/2017 05/22/2017 Inactive 04/08/2017 9:32:07 AM fentanyl 25 mcg/hr transdermal patch RxNorm: 533296 1 Patch TD Q72H 04/05/2017 05/02/2017 Inactive lidocaine 10 mg/mL (1 %) injection solution RxNorm: 6747708 1 Milliliter(s) Inj daily Mix with rocephin 03/31/20172017 Inactive Pt resides at [facility] lidocaine 10 mg/mL (1 %) injection solution RxNorm: 6206307 1 Milliliter(s) Inj daily Mix with rocephin 03/31/20172017 Inactive Pt resides at [facility] fentanyl 100 mcg/hr transdermal patch RxNorm: 957842 1 Patch TD Q72H 03/29/2017 04/26/2017 Inactive nystatin 100,000 unit/gram topical powder RxNorm: 828574 APPLY UNDER BREASTS TWICE DAILY FOR YEAST SKIN INFECTION AND APPLY TO UNDERARM AND ABDOMINAL FOLDS AND PERIAREA TWICE DAILY 03/29/20172017 Inactive 03/27/2017 9:12:50 AM nystatin 100,000 unit/gram topical powder RxNorm: 850281 APPLY UNDER BREASTS TWICE DAILY FOR YEAST SKIN INFECTION AND APPLY TO UNDERARM AND ABDOMINAL FOLDS AND PERIAREA TWICE DAILY 03/29/20172017 Inactive 03/29/2017 9:42:55 AM2017 9:12:50 AM hyoscyamine 0.125 mg disintegrating tablet RxNorm: 4976171 1-2 Tablet(s) PO Q8 as needed 03/08/2017 03/27/2017 Inactive fentanyl 25 mcg/hr transdermal patch RxNorm: 466243 1 Patch TD Q72H 03/02/2017 03/31/2017 Inactive hydrocodone 10 mg-acetaminophen 325 mg tablet RxNorm: 338245 1 Tablet(s) PO scheduled BID et Q6 hours as needed 02/17/2017 03/18/2017 Inactive fentanyl 100 mcg/hr transdermal patch RxNorm: 820491 1 Patch TD Q72H 02/17/2017 03/18/2017 Inactive Lexapro 10 mg tablet RxNorm: 779492 1 Tablet(s) PO daily 201604/14/2017 Inactive Lexapro 10 mg tablet RxNorm: 228781 1 Tablet(s) PO daily 201602/04/2017 Inactive fentanyl 25 mcg/hr transdermal patch RxNorm: 285580 1 Patch TD Q72H 02/04/2017 03/01/2017 Inactive cyanocobalamin (vit B-12) 1,000 mcg tablet RxNorm: 092792 1 Tablet(s) PO daily 01/18/2017 12/13/2017 Active hyoscyamine 0.125 mg disintegrating tablet RxNorm: 8991797 Tablet(s) 1-2 Tablet(s ) PO Q8 as needed 01/18/2017 02/06/2017 Inactive baclofen 10 mg tablet RxNorm: 081659 TAKE 1 TABLET THREE TIMES DAILY VIA STOMACH TUBE 01/04/2017 02/17/2017 Inactive 01/04/2017 9:25:18 AM fentanyl 100 mcg/hr transdermal patch RxNorm: 688848 1 Patch TD Q72H 12/25/2016 01/23/2017 Inactive hydrochlorothiazide 25 mg tablet RxNorm: 157026 Tablet(s) GIVE 1 TABLET VIA PEG TUBE ONCE A DAY 12/14/2016 07/11/2017 Inactive fentanyl 100 mcg/hr transdermal patch RxNorm: 385840 1 Patch TD Q72H 11/25/2016 12/24/2016 Inactive hyoscyamine 0.125 mg disintegrating tablet RxNorm: 5480903 Tablet(s) 1-2 Tablet(s ) PO Q8 as needed 11/25/2016 12/14/2016 Inactive nystatin 100,000 unit/gram topical powder RxNorm: 799984 APPLY UNDER BREASTS TWICE DAILY FOR YEAST SKIN INFECTION AND APPLY TO UNDERARM AND ABDOMINAL FOLDS AND PERIAREA TWICE DAILY 11/24/20162016 Inactive 11/24/2016 9:34:02 AM hydrocodone 10 mg-acetaminophen 325 mg tablet RxNorm: 778091 1 Tablet(s) PO scheduled BID et Q6 hours as needed 11/02/2016 12/01/2016 Inactive cyanocobalamin (vit B-12) 1,000 mcg tablet RxNorm: 401270 1 Tablet(s) PO daily 11/02/2016 01/17/2017 Inactive hyoscyamine 0.125 mg disintegrating tablet RxNorm: 5709538 1-2 Tablet(s) PO Q8 as needed 10/19/2016 11/24/2016 Inactive fentanyl 100 mcg/hr transdermal patch RxNorm: 820261 1 Patch TD Q72H 10/13/2016 11/11/2016 Inactive hydrocodone 10 mg-acetaminophen 325 mg tablet RxNorm: 037418 1 Tablet(s) PO scheduled BID et Q6 hours as needed 10/05/2016 11/01/2016 Inactive baclofen 10 mg tablet RxNorm: 656757 TAKE 1 TABLET THREE TIMES DAILY VIA STOMACH TUBE 10/01/2016 11/14/2016 Inactive 10/01/2016 9:24:37 AM carvedilol 3.125 mg tablet RxNorm: 765389 GIVE 1 TABLET VIA PEG TUBE 2 TIMES A DAY 09/30/2016 12/28/2016 Inactive Generic For:COREG 3.125MG 09/30/2016 1:12:28 PM09/25/2016 9:06:11 AM Probiotic Blend 2 million cell-50 mg capsule RxNorm: 1 Capsule(s) PO BID 09/17/2016 09/23/2016 Inactive Keflex 500 mg capsule RxNorm: 648760 1 Capsule(s) PO TID 201609/23/2016 Inactive hyoscyamine 0.125 mg/5 mL oral elixir RxNorm: 1444835 5 Milliliter(s) PO TID 09/08/2016 09/17/2016 Inactive hyoscyamine 0.125 mg/5 mL oral elixir RxNorm: 7978698 5 Milliliter(s) PO TID 09/08/2016 09/07/2016 Inactive hyoscyamine 0.125 mg disintegrating tablet RxNorm: 1353759 1-2 Tablet(s) PO Q8 as needed 09/07/2016 10/18/2016 Inactive fentanyl 100 mcg/hr transdermal patch RxNorm: 355089 1 Patch TD Q72H 09/01/2016 09/30/2016 Inactive ranitidine 150 mg tablet RxNorm: 422415 1 Tablet(s) PO BID 08/2016 No Stop Date Active hydrocodone 10 mg-acetaminophen 325 mg tablet RxNorm: 119684 1 Tablet(s) PO scheduled BID et Q6 hours as needed 08/24/2016 09/22/2016 Inactive cyanocobalamin (vit B-12) 1,000 mcg tablet RxNorm: 279534 1 Tablet(s) PO daily 08/12/2016 11/01/2016 Inactive cyanocobalamin (vit B-12) 1,000 mcg tablet RxNorm: 432042 1 Tablet(s) PO daily 08/12/2016 08/11/2016 Inactive hydrocodone 10 mg-acetaminophen 325 mg tablet RxNorm: 382125 1-2 Tablet(s) PO Q6 as needed 08/03/2016 08/17/2016 Inactive fentanyl 100 mcg/hr transdermal patch RxNorm: 884990 1 Patch TD Q72H 08/03/2016 08/31/2016 Inactive nystatin 100,000 unit/gram topical powder RxNorm: 257554 APPLY UNDER BREASTS TWICE DAILY FOR YEAST SKIN INFECTION AND APPLY TO UNDERARM AND ABDOMINAL FOLDS AND PERIAREA TWICE DAILY 07/17/20162016 Inactive 07/17/2016 3:56:54 PM fentanyl 100 mcg/hr transdermal patch RxNorm: 685903 1 Patch TD Q72H 07/15/2016 08/02/2016 Inactive lisinopril 20 mg tablet RxNorm: 836272 1 Tablet(s) PO daily 03/28/2017 Inactive hydrocodone 10 mg-acetaminophen 325 mg tablet RxNorm: 975980 1-2 Tablet(s) PO Q6 as needed 07/01/2016 07/15/2016 Inactive Xarelto 20 mg tablet RxNorm: 3591053 Tablet(s) TAKE 1 TABLET VIA PEG TUBE AT BEDTIME 06/19/2016 04/14/2017 Inactive fentanyl 100 mcg/hr transdermal patch RxNorm: 880575 1 Patch TD Q72H 06/17/2016 07/14/2016 Inactive nystatin 100,000 unit/gram topical powder RxNorm: 481358 APPLY TO UNDER BREASTS TWICE DAILY FOR YEAST SKIN INFECTION AND APPLY TO UNDERARM AND ABDOMINAL FOLDS AND PERIAREA TWICE DAILY 06/15/20162016 Inactive Generic For:MYCOSTATIN 100, 000 UNITS/GM PW 06/15/2016 12:28:26 PM fentanyl 100 mcg/hr transdermal patch RxNorm: 412696 1 Patch TD Q72H 06/05/2016 06/16/2016 Inactive hydrocodone 10 mg-acetaminophen 325 mg tablet RxNorm: 855702 1-2 Tablet(s) PO Q6 as needed 06/02/2016 06/16/2016 Inactive Probiotic Blend 2 million cell-50 mg capsule RxNorm: 1 Capsule(s) PO BID 05/13/2016 05/19/2016 Inactive nitrofurantoin 100 mg capsule RxNorm: 229881 1 Capsule(s) PO BID 05/13/2016 05/19/2016 Inactive nitrofurantoin 100 mg capsule RxNorm: 081950 1 Capsule(s) PO BID 05/13/2016 05/12/2016 Inactive fentanyl 75 mcg/hr transdermal patch RxNorm: 430663 1 Patch TD Q72H 05/13/2016 06/04/2016 Inactive Keflex 500 mg capsule RxNorm: 333235 1 Capsule(s) PO TID 201605/13/2016 Inactive Patient at [facility] Keflex 500 mg capsule RxNorm: 358608 1 Capsule(s) PO TID 201605/06/2016 Inactive hydrocodone 10 mg-acetaminophen 325 mg tablet RxNorm: 686088 1-2 Tablet(s) PO Q6 as needed 05/04/2016 06/01/2016 Inactive hydrochlorothiazide 25 mg tablet RxNorm: 251123 Tablet(s) GIVE 1 TABLET VIA PEG TUBE ONCE A DAY 04/29/2016 11/24/2016 Inactive hydrochlorothiazide 25 mg tablet RxNorm: 977115 GIVE 1 TABLET VIA PEG TUBE ONCE A DAY 04/22/2016 04/28/2016 Inactive Generic For:HYDRODIURIL 25 MG TABLET refill request fentanyl 75 mcg/hr transdermal patch RxNorm: 002256 1 Patch TD Q72H 04/17/2016 05/12/2016 Inactive Xarelto 20 mg tablet RxNorm: 5385417 TAKE 1 TABLET VIA PEG TUBE AT BEDTIME 04/16/2016 06/14/2016 Inactive 04/16/2016 9:08:52 AM citalopram 40 mg tablet RxNorm: 931682 1 Tablet(s) PO daily 02/201702/25/2017 Inactive citalopram 40 mg tablet RxNorm: 981122 1 Tablet(s) PO daily 08/201604/01/2016 Inactive hydrocodone 10 mg-acetaminophen 325 mg tablet RxNorm: 738577 1-2 Tablet(s) PO Q6 as needed 03/27/2016 04/25/2016 Inactive fentanyl 75 mcg/hr transdermal patch RxNorm: 265685 1 Patch TD Q72H 03/18/2016 04/16/2016 Inactive hydrocodone 10 mg-acetaminophen 325 mg tablet RxNorm: 734811 1-2 Tablet(s) PO Q6 as needed 03/11/2016 03/26/2016 Inactive citalopram 40 mg tablet RxNorm: 582129 1 Tablet(s) PO daily 03/26/2016 Inactive Levemir FlexTouch U-100 Insulin 100 unit/mL (3 mL) subcutaneous pen RxNorm: 453260 20 Unit(s) SQ BID 03/02/201611/2016 Inactive lisinopril 20 mg tablet RxNorm: 271164 1 Tablet(s) PO daily 08/201507/01/2016 Inactive Ativan 0.5 mg tablet RxNorm: 669515 1 Tablet(s) PO Q4H as needed 02/18/2016 04/14/2017 Inactive Xarelto 20 mg tablet RxNorm: 7921159 TAKE 1 TABLET VIA PEG TUBE AT BEDTIME 02/12/2016 04/11/2016 Inactive 02/12/2016 9:08:22 AM hydrocodone 10 mg-acetaminophen 325 mg tablet RxNorm: 489972 1-2 Tablet(s) PO Q6 as needed 02/12/2016 03/10/2016 Inactive fentanyl 75 mcg/hr transdermal patch RxNorm: 849956 1 Patch TD Q72H 02/11/2016 03/11/2016 Inactive citalopram 20 mg tablet RxNorm: 963737 1 Tablet(s) PO daily 10/201503/03/2016 Inactive fentanyl 75 mcg/hr transdermal patch RxNorm: 741389 1 TD Q72H 01/17/2016 02/10/2016 Inactive hydrocodone 10 mg-acetaminophen 325 mg tablet RxNorm: 256892 1-2 Tablet(s) PO Q6 as needed 01/07/2016 02/05/2016 Inactive fentanyl 50 mcg/hr transdermal patch RxNorm: 851470 1 TD Q72H 01/01/2016 01/16/2016 Inactive fentanyl 50 mcg/hr transdermal patch RxNorm: 088309 1 TD q 3 days 12/26/2015 12/31/2015 Inactive Xarelto 20 mg tablet RxNorm: 0394748 TAKE 1 TABLET VIA PEG TUBE AT BEDTIME 12/17/2015 02/11/2016 Inactive 12/16/2015 3:27:57 PM12/14/2015 9:45:17 AM hydrocodone 10 mg-acetaminophen 325 mg tablet RxNorm: 298303 1-2 Tablet(s) PO Q6 as needed 12/06/2015 01/04/2016 Inactive fentanyl 50 mcg/hr transdermal patch RxNorm: 228073 1 TD q 3 days 12/06/2015 12/25/2015 Inactive fentanyl 25 mcg/hr transdermal patch RxNorm: 040174 1 TD q 3 days 11/18/2015 12/05/2015 Inactive Zithromax Z-Eliu 250 mg tablet RxNorm: 624174 1 Tablet(s) PO UD 10/09/2015 02/26/2016 Inactive z pack as directed- please write out instructions- pt at [facility] nystatin 100,000 unit/gram topical powder RxNorm: 122943 APPLY TO UNDER BREASTS TWICE DAILY FOR YEAST SKIN INFECTION AND APPLY TO UNDERARM AND ABDOMINAL FOLDS AND PERIAREA TWICE DAILY 10/07/20152015 Inactive Generic For:MYCOSTATIN 100, 000 UNITS/GM PW 10/05/2015 12:07:35 PM fentanyl 25 mcg/hr transdermal patch RxNorm: 190528 1 TD q 3 days 10/03/2015 11/01/2015 Inactive fentanyl 25 mcg/hr transdermal patch RxNorm: 190110 1 TD q 3 days 09/27/2015 10/02/2015 Inactive fentanyl 25 mcg/hr transdermal patch RxNorm: 850786 1 TD q 3 days 09/17/2015 09/26/2015 Inactive fentanyl 25 mcg/hr transdermal patch RxNorm: 211650 1 TD q 3 days 08/30/2015 09/16/2015 Inactive hydrocodone 5 mg-acetaminophen 325 mg tablet RxNorm: 557077 1 Tablet(s) PO Q6 as needed 08/30/2015 09/28/2015 Inactive Diflucan 100 mg tablet RxNorm: 537885 1 Tablet(s) Miscellaneous per peg daily 07/29/2015 08/04/2015 Inactive fentanyl 25 mcg/hr transdermal patch RxNorm: 085134 1 TD q 3 days 07/18/2015 08/29/2015 Inactive hydrocodone 5 mg-acetaminophen 325 mg tablet RxNorm: 682190 1 Tablet(s) PO Q6 as needed 07/18/2015 08/29/2015 Inactive Diflucan 100 mg tablet RxNorm: 419087 1 Tablet(s) Miscellaneous per peg daily 06/17/2015 06/23/2015 Inactive Senna-S 8.6 mg-50 mg tablet RxNorm: 319497 1 Tablet(s) PO daily as needed constipation No Start Date Active Dulcolax (bisacodyl) 10 mg rectal suppository RxNorm: 585787 1 Suppository RTL daily as needed constipation No Start Date Active albuterol sulfate concentrate 5 mg/mL(0.5 %) solution for nebulization RxNorm: 958269 1 Vial INH daily as needed congestion No Start Date Active polyethylene glycol 3350 17 gram/dose oral powder RxNorm: 720491 17 Gram(s) PO daily as needed constipation No Start Date Active baclofen 10 mg tablet RxNorm: 476955 1 Tablet(s) PO TID No Start Date 09/30/2016 Inactive Ativan 0.5 mg tablet RxNorm: 335780 1 Tablet(s) PO Q4H as needed No Start Date 02/17/2016 Inactive ranitidine 150 mg tablet RxNorm: 791373 1 Tablet(s) PO daily No Start Date 08/24/2016 Inactive carvedilol 3.125 mg tablet RxNorm: 552212 1 Tablet(s) PO daily No Start Date 09/29/2016 Inactive citalopram 40 mg tablet RxNorm: 475761 1 Tablet(s) PO daily No Start Date 01/27/2016 Inactive Probiotic Blend oral RxNorm: oral No Start Date 05/12/2016 Inactive hydrochlorothiazide 25 mg tablet RxNorm: 752011 1 Tablet(s) PO daily No Start Date 04/21/2016 Inactive Levemir FlexTouch 100 unit/mL (3 mL) subcutaneous insulin pen RxNorm: 321901 10 Unit(s) SQ BID No Start Date 03/01/2016 Inactive Zithromax Z-Eliu 250 mg tablet RxNorm: 075611 1 Tablet(s) PO UD No Start Date 10/08/2015 Inactive z pack as directed- please write out instructions- pt at [facility] nystatin 100,000 unit/gram topical powder RxNorm: 389872 Gram(s) TOP BID as needed No Start Date 10/06/2015 Inactive pravastatin 40 mg tablet RxNorm: 967828 Tablet(s) PO daily No Start Date 04/14/2017 Inactive lorazepam 0.5 mg tablet RxNorm: 029296 1/2 Tablet(s) PO BID No Start Date 05/02/2017 Inactive Xarelto 20 mg tablet RxNorm: 7573384 1 Tablet(s) PO daily No Start Date 12/16/2015 Inactive fentanyl 25 mcg/hr transdermal patch RxNorm: 501217 1 TD q 3 days No Start Date 07/17/2015 Inactive lisinopril 20 mg tablet RxNorm: 208936 1 Tablet(s) PO daily No Start Date 02/24/2016 Inactive hydrocodone 5 mg-acetaminophen 325 mg tablet RxNorm: 902659 1 Tablet(s) PO Q6 as needed No Start Date 07/17/2015 Inactive citalopram 40 mg tablet RxNorm: 584834 1 Tablet(s) PO daily No Start Date 03/03/2016 Inactive hyoscyamine 0.125 mg disintegrating tablet RxNorm: 9556524 1-2 Tablet(s) PO Q8 as needed No [...] ICD-10: I10 ICD-9: 401.9 09/09/2017 Pain in right shoulder ICD-10: M25.511 [...] Code Item Item Code Result Date %Hba1C Mqo538 % HbA1c 39768-5 5.5 % 11/04/2017 %Hba1C Pat548 Gluc Ave 111 mg/dL 11/04/2017 Culture Urine [id number] URINE CULTURE SEE NOTES 10/04/2017 Culture Urine [id number] Continued Results 10/04/2017 Urine Culture Ucult Complete [...] Ord28 U-Com Culture to follow 10/01/2017 B12 Drv643 B12 >1500.00 pg/ml 02/19/2017 Cbc With Differential [...] 31.5 pg 02/02/2017 Cbc With Differential Ord2 [place]% 8.3 % 02/02/2017 Cbc With Differential Ord2 [...] 2.28 K/ul 02/02/2017 Cbc With Differential Ord2 [place] ABS# 0.6 K/ul 02/02/2017 Cbc With Differential Ord2 Eos ABS# 0.4 K/ul 02/02/2017 Cbc With Differential Ord2 Baso ABS# 0.0 K/ul 02/02/2017 %Hba1C Igm812 % HbA1c 55774-7 5.2 % 02/02/2017 %Hba1C Jlu334 Gluc Ave 103 mg/dL 02/02/2017 Comp Metabolic Qly213 NA 138 mEq/L 02/02/2017 Comp Metabolic Zsd769 K 4.5 mEq/L 02/02/2017 Comp Metabolic Hqp902 CL 98 mEq/L 02/02/2017 Comp Metabolic Kam041 CO2 37.0 mEq/L 02/02/2017 Comp Metabolic Qux534 ANION GAP 8 02/02/2017 Comp Metabolic Qtf676 GLUCOSE 94 mg/dL 02/02/2017 Comp Metabolic Oem264 Creat 0.7 mg/dL 02/02/2017 Comp Metabolic Tnm225 eGFR 88 ml/min/1.73m2 02/02/2017 Comp Metabolic Vlr280 BUN 36 mg/dL 02/02/2017 Comp Metabolic Mbb644 B/C Ratio 50.7 Ratio 02/02/2017 Comp Metabolic Wal163 CALCIUM 9.0 mg/dL 02/02/2017 Comp Metabolic Uba133 ALK PHOS 78 U/L 02/02/2017 Comp Metabolic Qxw653 AST(SGOT) 22 U/L 02/02/2017 Comp Metabolic Jhw775 ALT(SGPT) 28 U/L 02/02/2017 Comp Metabolic Vav828 BILI T 0.3 mg/dL 02/02/2017 Comp Metabolic Byt777 ALBUMIN 3.3 g/dL 02/02/2017 Comp Metabolic Knq446 TPRO 5.9 g/dL 02/02/2017 Comp Metabolic Rwo926 GLOB 2.6 g/dL 02/02/2017 Comp Metabolic Hcf231 A/G Ratio 1.3 Ratio 02/02/2017 Comp Metabolic Axb255 Osmo 284 mOsmo 02/02/2017 %Hba1C Lgj095 % HbA1c 28716-2 5.0 % 10/29/2016 %Hba1C Kiq682 Gluc Ave 97 mg/dL 10/29/2016 Culture Urine [id number] URINE CULTURE SEE NOTES 09/21/2016 Culture Urine [id number] Continued Results 09/21/2016 Urine Culture Ucult Complete [...] 41.3 % 07/30/2016 Cbc With Differential Ord2 [place]% 7.2 % 07/30/2016 Cbc With Differential Ord2 [...] 2.69 K/ul 07/30/2016 Cbc With Differential Ord2 [place] ABS# 0.5 K/ul 07/30/2016 Cbc With Differential Ord2 Eos ABS# 0.5 K/ul 07/30/2016 Cbc With Differential Ord2 Baso ABS# 0.0 K/ul 07/30/2016 Comp Metabolic Iml264 NA 141 mEq/L 07/30/2016 Comp Metabolic Qtr473 K 4.3 mEq/L 07/30/2016 Comp Metabolic Fnu061 CL 100 mEq/L 07/30/2016 Comp Metabolic Ppe808 CO2 33.0 mEq/L 07/30/2016 Comp Metabolic Pvm531 ANION GAP 12 07/30/2016 Comp Metabolic Bgo930 GLUCOSE 64 mg/dL 07/30/2016 Comp Metabolic Egr884 Creat 0.5 mg/dL 07/30/2016 Comp Metabolic Yiz883 eGFR 126 ml/min/1.73m2 07/30/2016 Comp Metabolic Cdg856 BUN 25 mg/dL 07/30/2016 Comp Metabolic Kqn332 B/C Ratio 48.1 Ratio 07/30/2016 Comp Metabolic Ldp728 CALCIUM 8.9 mg/dL 07/30/2016 Comp Metabolic Env510 ALK PHOS 90 U/L 07/30/2016 Comp Metabolic Xqq357 AST(SGOT) 22 U/L 07/30/2016 Comp Metabolic Hjz841 ALT(SGPT) 36 U/L 07/30/2016 Comp Metabolic Uiv891 BILI T 0.3 mg/dL 07/30/2016 Comp Metabolic Myd336 ALBUMIN 3.4 g/dL 07/30/2016 Comp Metabolic Yoo868 TPRO 6.0 g/dL 07/30/2016 Comp Metabolic Eyn798 GLOB 2.7 g/dL 07/30/2016 Comp Metabolic Ein396 A/G Ratio 1.3 Ratio 07/30/2016 Comp Metabolic Ycv485 Osmo 284 mOsmo 07/30/2016 A1C Frequency Kkk836 A1CF 49421-7 Last A1C performed at [facility] on: 05-12-2016 07/30/2016 %Hba1C Qvx875 % HbA1c 58239-1 5.2 % 05/12/2016 %Hba1C Tyj381 Gluc Ave 103 mg/dL 05/12/2016 Culture Urine [id number] URINE CULTURE SEE NOTES 05/11/2016 Urine Culture [...] Urinalysis Ord28 U-Yeast NEGATIVE 05/06/2016 Culture Urine [id number] URINE CULTURE SEE NOTES 03/17/2016 Culture Urine [id number] Continued Results 03/17/2016 Urine Culture Ucult Complete [...] 32.0 pg 02/11/2016 Cbc With Differential Ord2 Hancock% 9.1 % 02/11/2016 Cbc With Differential Ord2 Eos% 4.9 % 02/11/2016 Cbc With Differential Ord2 MCHC 31.6 pg 02/11/2016 Cbc With Differential Ord2 PLT 174 K/ul 02/11/2016 Cbc With Differential Ord2 Baso% 0.1 % 02/11/2016 Cbc With Differential Ord2 Neut ABS# 3.14 K/ul 02/11/2016 Cbc With Differential Ord2 RDW 12.5 % 02/11/2016 Cbc With Differential Ord2 Lymph ABS# 2.59 K/ul 02/11/2016 Cbc With Differential Ord2 Hancock ABS# 0.6 K/ul 02/11/2016 Cbc With Differential Ord2 Eos ABS# 0.3 K/ul 02/11/2016 Cbc With Differential Ord2 Baso ABS# 0.0 K/ul 02/11/2016 Comp Metabolic Nbc192 NA 137 mEq/L 02/11/2016 Comp Metabolic Hzd172 K 4.4 mEq/L 02/11/2016 Comp Metabolic Wnd362 CL 100 mEq/L 02/11/2016 Comp Metabolic Jcn108 CO2 25.0 mEq/L 02/11/2016 Comp Metabolic Ifs561 ANION GAP 16 02/11/2016 Comp Metabolic Kew103 GLUCOSE 99 mg/dL 02/11/2016 Comp Metabolic Oea923 Creat 0.6 mg/dL 02/11/2016 Comp Metabolic Xgy672 eGFR 99 ml/min/1.73m2 02/11/2016 Comp Metabolic Qab022 BUN 27 mg/dL 02/11/2016 Comp Metabolic Xbn098 B/C Ratio 42.2 Ratio 02/11/2016 Comp Metabolic Swt343 CALCIUM 9.2 mg/dL 02/11/2016 Comp Metabolic Xtp719 ALK PHOS 74 U/L 02/11/2016 Comp Metabolic Vrl774 AST(SGOT) 24 U/L 02/11/2016 Comp Metabolic Obs641 ALT(SGPT) 26 U/L 02/11/2016 Comp Metabolic Kgq848 BILI T 0.5 mg/dL 02/11/2016 Comp Metabolic Iub637 ALBUMIN 3.5 g/dL 02/11/2016 Comp Metabolic Lwz188 TPRO 6.2 g/dL 02/11/2016 Comp Metabolic Tjq519 GLOB 2.7 g/dL 02/11/2016 Comp Metabolic Zpz914 A/G Ratio 1.3 Ratio 02/11/2016 Comp Metabolic Iyd983 Osmo 279 mOsmo 02/11/2016 Review of Systems [...] Code : 8480-6 BMI: 31.4 Code : 99702-7 Heart Rate 1 : 72 bpm Height: 5'1" Weight: 166 lbs 06/17/2015 Blood Pressure 1: 110/78 Code : 8480-6 BMI: 33.3 Code : 82251-3 Heart Rate 1 : 74 bpm Height: [...] Present Encounters Encounter Performer Location Codes Date ([id number]) [id number] EST. PATIENT, LEVEL IV Diagnosis: Type 2 diabetes mellitus with hyperglycemia[ICD10: E11.65] Diagnosis: Essential (primary) hypertension[ICD10: I10] Diagnosis: Pain in left shoulder[ICD10: M25.512] Diagnosis: Pain in right shoulder[ICD10: M25.511] Diagnosis: Pain in left knee[ICD10: M25.562] Diagnosis: Pain in right knee[ICD10: M25.561] Vonda Everett MD, [facility] CPT-4: 44228 09/09/2017 [id number] EST. PATIENT, LEVEL IV Diagnosis: Essential (primary) hypertension[ICD10: I10] Diagnosis: Type 2 diabetes mellitus with hyperglycemia[ICD10: E11.65] Diagnosis: Low back pain[ICD10: M54.5] Sunitha Everett MD, [facility] CPT-4 : 84778 06/08/2017 ([id number]) 66027 EST. PATIENT, LEVEL IV Diagnosis: Essential (primary) hypertension[ICD10: I10] Diagnosis: Type 2 diabetes mellitus with hyperglycemia[ICD10: E11.65] Diagnosis: Low back pain[ICD10: M54.5] Sunitha Everett MD, [facility] CPT-4 : 62375 04/15/2017 ([id number]) [id number] EST. PATIENT, LEVEL IV Diagnosis: Essential (primary) hypertension[ICD10: I10] Diagnosis: Type 2 diabetes mellitus with hyperglycemia[ICD10: E11.65] Diagnosis: Low back pain[ICD10: M54.5] Vonda Everett MD, [facility] CPT- 4: 59551 02/16/2017 [id number] EST. 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 09/09/2017 Appointment: Vonda Everett WPtel: [address] [place], [place] [id number] (15 min) Moderate 09/09/2017 Patient Education: Patient [...] administration record. 06/08/2017 Appointment: [phone] [place] ([place] min) Complex 06/08/2017 Patient Education: Patient [...] over-medication. 04/15/2017 Appointment: [phone] [place] ([place] min) Complex 04/15/2017 Patient Education: Patient [...] today. 02/16/2017 Appointment: Vonda Everett WPtel: [phone] [facility] (15 min) Moderate 02/16/2017 Patient Education: Patient [...] or concerns. 11/09/2016 Appointment: [facility] Pat[phone] [place] (30 min) Complex 11/09/2016 Patient Education: Patient Medication Summary Completed 11/09/2016 Care Plan: Referral Order SNOMED-CT : [id number] Pending 11/09/2016 Patient Education: Patient Medication Summary [...] Follow up weight in 1 month Neck lqoh-tkfxysiwvrr-Vure PT focus neck/upper body Right earache-cerumen removed with water pick today in the office 07/18/2015 Appointment: (30 min) Complex 07/18/2015 Patient Education: Patient Medication Summary Completed 07/18/2015 Patient Education: Obesity Completed 07/18/2015 Patient Education: .Cervicalgia Neck Pain Completed 07/18/2015 Referral: [facility] WPtel: [phone] Referral Completed 06/25/2015 Visit Plan: Hypertension - [...] normal liver response to medications. [facility] for post stroke - left sided weakness, neck stiffness, upper extremity weakness Diabetes Mellitus - controlled - per family report - check labs this week, get report from and [facility]. I spent over an hour with the patient in direct contact. 06/17/2015 Appointment: Vonda Everett WPtel: [phone] New Patient 06/17/2015 Patient Education: Patient Medication Summary Completed 06/17/2015 Patient Education: Obesity Completed 06/17/2015 Patient Education: Hypertension Completed 06/17/2015 Care Plan: Referral Order SNOMED-CT : [id number] Ordered 06/17/2015 Referral: Jorge Luis Carroll Referral Initiated Referral: [facility] WPtel: [phone] [facility] Referral Appointment Requested Instructions Comment . Hypertension [...] normal liver response to medications. referral to [facility] physical [facility] therapy for post stroke - left sided weakness, neck stiffness, upper extremity weakness Diabetes Mellitus - controlled - per family report - check labs this week, get report from and [facility]. I spent over an hour [...] Follow up weight in 1 month Neck bhnc-zpkvpvsxgob-Svpz PT focus neck/upper body Right earache-cerumen removed [...]
--- OUTSIDE RECORDS SUMMARY | 2017-12-16 14:31 | XMS REPORT | CCD ---
Author Author [facility]rett Organization [facility] Address [address] [place] [address] Phone Care Team Providers Care Employment Consultant Name Role Phone PP Unavailable CCM Unavailable Summary Purpose Interface Exchange Insurance Providers Payer name Policy type / Coverage type Covered republican ID Effective Begin Date Effective End Date WPS Medicare Part B Medicare Part B [id number] Unknown Unknown Irish [employer] Life Insurance Medicare Part B [id number] Unknown Unknown Family history Father Diagnosis Age At Onset Arthritis Unknown Hypertension Unknown Mother Diagnosis Age At Onset Diabetes mellitus Type 2 Unknown Depression Unknown Arthritis Unknown Stroke Unknown Hypertension Unknown Sister Diagnosis Age At Onset Colon cancer Unknown Social History Social History Element Codes Description Effective Dates Living arrangements Unknown Custodial [facility] 04/15/2017 Marital status Unknown Anothony 06/17/2015 Number of children Unknown 3 06/17/2015 Employment Unknown Retired 06/17/[address]: 7143368 Quit over 10 years ago 15+ 06/17/[address]: 657426028 Never drinks alcohol 06/17/2015 Allergies, Adverse Reactions, [...] Start Date Stop Date Status Fill Instructions hyoscyamine 0.125 mg disintegrating tablet RxNorm: 3119512 1-2 Tablet(s) PO Q8 as needed 11/03/2017 No Stop Date Active carvedilol 3.125 mg tablet RxNorm: 589919 GIVE 1 TABLET VIA PEG TUBE 2 TIMES A DAY 10/22/2017 01/19/2018 Active Generic For:COREG 3.125MG 10/22/2017 9:23:30 AM hydrocodone 10 mg-acetaminophen 325 mg tablet RxNorm: 563186 2 Tablet(s) PO scheduled TID and 1 tab q 4 as needed 10/22/2017 No Stop Date Active Not to exceed 3gm/24hr acetaminophen fentanyl 100 mcg/hr transdermal patch RxNorm: 077536 1 Patch TD Q72H 10/20/2017 11/18/2017 Active Duragesic 75 mcg/hr transdermal patch RxNorm: 461975 1 Patch TD Q72H 10/20/2017 No Stop Date Active lorazepam 0.5 mg tablet RxNorm: 1 Tablet(s) PO BID and 1 tab q 6 hours prn 10/18/2017 No Stop Date Active baclofen 10 mg tablet RxNorm: 774393 TAKE 1 TABLET THREE TIMES DAILY VIA STOMACH TUBE 10/07/2017 03/05/2018 Active 10/07/2017 5:36:15 PM 10/07/2017 5:36:13 PM N O T I C E Last quantity doesn't match original quantity cranberry extract 500 mg tablet RxNorm: 8045490 1 Tablet(s) PO QAM 10/04/2017 01/31/2018 Active Cipro 500 mg tablet RxNorm: 898854 1 Tablet(s) PO BID 201710/03/2017 Inactive dc keflex hydrocodone 10 mg-acetaminophen 325 mg tablet RxNorm: 579901 2 Tablet(s) PO scheduled TID as needed 10/04/20172017 Inactive Not to exceed 3gm/24hr acetaminophen cranberry extract 500 mg tablet RxNorm: 1565434 1 Tablet(s) PO QAM 10/04/2017 10/03/2017 Inactive Cipro 500 mg tablet RxNorm: 870823 1 Tablet(s) PO BID 201710/10/2017 Inactive dc keflex Duragesic 75 mcg/hr transdermal patch RxNorm: 650301 1 Patch TD Q72H 09/20/2017 10/19/2017 Inactive fentanyl 100 mcg/hr transdermal patch RxNorm: 346297 1 Patch TD Q72H 09/20/2017 10/19/2017 Inactive hyoscyamine 0.125 mg disintegrating tablet RxNorm: 5291019 1 Tablet(s) PO TID and 1 Tablet Q4H prn increased secretions 09/15/2017 11/02/2017 Inactive hydrocodone 10 mg-acetaminophen 325 mg tablet RxNorm: 359802 2 Tablet(s) PO scheduled TID and 1-2 Tabs Q4H PRN pain 09/15/2017 10/03/2017 Inactive Not to exceed 3gm/24hr acetaminophen lorazepam 0.5 mg tablet RxNorm: 515735 1 Tablet(s) PO BID 09/1510/17/2017 Inactive Lexapro 10 mg tablet RxNorm: 115993 1 Tablet(s) PO daily 201709/14/2017 Inactive Levemir FlexTouch U-100 Insulin 100 unit/mL (3 mL) subcutaneous pen RxNorm: 552278 10 Unit(s) daily 09/09/201709/15 Inactive lisinopril 10 mg tablet RxNorm: 741535 1 Tablet(s) PO daily 06/05/2018 Active Duragesic 75 mcg/hr transdermal patch RxNorm: 509805 1 Patch TD Q72H 09/09/2017 09/19/2017 Inactive nystatin 100,000 unit/gram topical cream RxNorm: 772206 1 Gram(s) TOP TID until healed to gaulding 09/06/2017 01/03/2018 Active nystatin 100,000 unit/gram topical cream RxNorm: 224442 1 Gram(s) TOP TID until healed to gaulding 09/06/2017 09/05/2017 Inactive hydrocodone 10 mg-acetaminophen 325 mg tablet RxNorm: 115847 2 Tablet(s) PO scheduled TID as needed 08/31/20172017 Inactive Not to exceed 3gm/24hr acetaminophen fentanyl 100 mcg/hr transdermal patch RxNorm: 324899 1 Patch TD Q72H 08/24/2017 09/19/2017 Inactive fentanyl 50 mcg/hr transdermal patch RxNorm: 611978 1 Patch TD Q72H 08/24/2017 09/08/2017 Inactive fentanyl 25 mcg/hr transdermal patch RxNorm: 343948 1 Patch TD Q72H 08/24/2017 08/24/2017 Inactive hyoscyamine 0.125 mg disintegrating tablet RxNorm: 3020765 Tablet(s) 1-2 Tablet(s ) PO Q8 as needed 08/23/2017 09/14/2017 Inactive hydrocodone 10 mg-acetaminophen 325 mg tablet RxNorm: 951595 1 Tablet(s) PO scheduled TID et Q6 hours as needed 08/18/2017 08/30/2017 Inactive Not to exceed 3gm/24hr acetaminophen hydrochlorothiazide 25 mg tablet RxNorm: 605958 GIVE 1 TABLET VIA PEG TUBE ONCE DAILY 08/17/2017 02/12/2018 Active Generic For:HYDRODIURIL 25 MG TABLET 2017 9:01:54 AM08/11/2017 10:12:00 AM lorazepam 0.5 mg tablet RxNorm: 356779 1/2 Tablet(s) PO BID 09/14/2017 Inactive fentanyl 100 mcg/hr transdermal patch RxNorm: 787289 1 Patch TD Q72H 07/26/2017 08/23/2017 Inactive fentanyl 25 mcg/hr transdermal patch RxNorm: 950235 1 Patch TD Q72H 07/26/2017 08/23/2017 Inactive hydrocodone 10 mg-acetaminophen 325 mg tablet RxNorm: 941031 1 Tablet(s) PO scheduled TID et Q6 hours as needed 07/16/2017 08/14/2017 Inactive Not to exceed 3gm/24hr acetaminophen hyoscyamine 0.125 mg disintegrating tablet RxNorm: 0550514 Tablet(s) 1-2 Tablet(s ) PO Q8 as needed 07/13/2017 08/01/2017 Inactive baclofen 10 mg tablet RxNorm: 409382 TAKE 1 TABLET THREE TIMES DAILY VIA STOMACH TUBE 07/12/2017 10/06/2017 Inactive 07/12/2017 9:04:08 AM N O T I C E Last quantity doesn't match original quantity lorazepam 0.5 mg tablet RxNorm: 331112 1/2 Tablet(s) PO BID 08/02/2017 Inactive fentanyl 100 mcg/hr transdermal patch RxNorm: 535461 1 Patch TD Q72H 06/28/2017 07/25/2017 Inactive fentanyl 25 mcg/hr transdermal patch RxNorm: 456232 1 Patch TD Q72H 06/28/2017 07/25/2017 Inactive hyoscyamine 0.125 mg disintegrating tablet RxNorm: 1605387 Tablet(s) 1-2 Tablet(s ) PO Q8 as needed 06/03/2017 06/22/2017 Inactive fentanyl 25 mcg/hr transdermal patch RxNorm: 824142 1 Patch TD Q72H 05/26/2017 06/24/2017 Inactive Levemir FlexTouch U-100 Insulin 100 unit/mL (3 mL) subcutaneous pen RxNorm: 671607 20 Unit(s) SQ BID 05/26/2017 Inactive fentanyl 100 mcg/hr transdermal patch RxNorm: 568635 1 Patch TD Q72H 05/26/2017 06/24/2017 Inactive hydrocodone 10 mg-acetaminophen 325 mg tablet RxNorm: 838414 1 Tablet(s) PO scheduled BID et Q6 hours as needed 05/12/2017 05/11/2017 Inactive hydrocodone 10 mg-acetaminophen 325 mg tablet RxNorm: 294671 1 Tablet(s) PO scheduled TID et Q6 hours as needed 05/12/2017 06/10/2017 Inactive Not to exceed 3gm/24hr acetaminophen docusate sodium 100 mg tablet RxNorm: 5849963 1 Tablet(s) PO BID as needed if no bowel movement 05/10/2017 05/09/2017 Inactive lisinopril 20 mg tablet RxNorm: 774281 1 Tablet(s) PO daily 09/08/2017 Inactive docusate sodium 100 mg tablet RxNorm: 4594821 1 Tablet(s) PO BID as needed if no bowel movement 05/10/2017 09/14/2017 Inactive fentanyl 25 mcg/hr transdermal patch RxNorm: 805167 1 Patch TD Q72H 05/03/2017 05/25/2017 Inactive lorazepam 0.5 mg tablet RxNorm: 200497 1/2 Tablet(s) PO BID 02/201807/01/2017 Inactive fentanyl 100 mcg/hr transdermal patch RxNorm: 464169 1 Patch TD Q72H 04/27/2017 05/25/2017 Inactive Levemir FlexTouch 100 unit/mL (3 mL) subcutaneous insulin pen RxNorm: 481244 10 Unit(s) SQ BID 04/15/2017 No Stop Date Active carvedilol 3.125 mg tablet RxNorm: 807902 Tablet(s) GIVE 1 TABLET VIA PEG TUBE DAILY 04/15/2017 10/21/2017 Inactive hyoscyamine 0.125 mg disintegrating tablet RxNorm: 9360425 1-2 Tablet(s) PO Q8 as needed 04/14/2017 05/03/2017 Inactive hydrocodone 10 mg-acetaminophen 325 mg tablet RxNorm: 272230 1 Tablet(s) PO scheduled BID et Q6 hours as needed 04/13/2017 05/02/2017 Inactive baclofen 10 mg tablet RxNorm: 610136 TAKE 1 TABLET THREE TIMES DAILY VIA STOMACH TUBE 04/08/2017 05/22/2017 Inactive 04/08/2017 9:32:07 AM fentanyl 25 mcg/hr transdermal patch RxNorm: 372873 1 Patch TD Q72H 04/05/2017 05/02/2017 Inactive lidocaine 10 mg/mL (1 %) injection solution RxNorm: 9794847 1 Milliliter(s) Inj daily Mix with rocephin 03/31/20172017 Inactive Pt resides at [facility] lidocaine 10 mg/mL (1 %) injection solution RxNorm: 7708733 1 Milliliter(s) Inj daily Mix with rocephin 03/31/20172017 Inactive Pt resides at [facility] fentanyl 100 mcg/hr transdermal patch RxNorm: 218226 1 Patch TD Q72H 03/29/2017 04/26/2017 Inactive nystatin 100,000 unit/gram topical powder RxNorm: 610688 APPLY UNDER BREASTS TWICE DAILY FOR YEAST SKIN INFECTION AND APPLY TO UNDERARM AND ABDOMINAL FOLDS AND PERIAREA TWICE DAILY 03/29/20172017 Inactive 03/27/2017 9:12:50 AM nystatin 100,000 unit/gram topical powder RxNorm: 633472 APPLY UNDER BREASTS TWICE DAILY FOR YEAST SKIN INFECTION AND APPLY TO UNDERARM AND ABDOMINAL FOLDS AND PERIAREA TWICE DAILY 03/29/20172017 Inactive 03/29/2017 9:42:55 AM2017 9:12:50 AM hyoscyamine 0.125 mg disintegrating tablet RxNorm: 2466386 1-2 Tablet(s) PO Q8 as needed 03/08/2017 03/27/2017 Inactive fentanyl 25 mcg/hr transdermal patch RxNorm: 829010 1 Patch TD Q72H 03/02/2017 03/31/2017 Inactive hydrocodone 10 mg-acetaminophen 325 mg tablet RxNorm: 936844 1 Tablet(s) PO scheduled BID et Q6 hours as needed 02/17/2017 03/18/2017 Inactive fentanyl 100 mcg/hr transdermal patch RxNorm: 426305 1 Patch TD Q72H 02/17/2017 03/18/2017 Inactive Lexapro 10 mg tablet RxNorm: 737537 1 Tablet(s) PO daily 201604/14/2017 Inactive Lexapro 10 mg tablet RxNorm: 997280 1 Tablet(s) PO daily 201602/04/2017 Inactive fentanyl 25 mcg/hr transdermal patch RxNorm: 167368 1 Patch TD Q72H 02/04/2017 03/01/2017 Inactive cyanocobalamin (vit B-12) 1,000 mcg tablet RxNorm: 804590 1 Tablet(s) PO daily 01/18/2017 12/13/2017 Active hyoscyamine 0.125 mg disintegrating tablet RxNorm: 7216889 Tablet(s) 1-2 Tablet(s ) PO Q8 as needed 01/18/2017 02/06/2017 Inactive baclofen 10 mg tablet RxNorm: 294566 TAKE 1 TABLET THREE TIMES DAILY VIA STOMACH TUBE 01/04/2017 02/17/2017 Inactive 01/04/2017 9:25:18 AM fentanyl 100 mcg/hr transdermal patch RxNorm: 515703 1 Patch TD Q72H 12/25/2016 01/23/2017 Inactive hydrochlorothiazide 25 mg tablet RxNorm: 243441 Tablet(s) GIVE 1 TABLET VIA PEG TUBE ONCE A DAY 12/14/2016 07/11/2017 Inactive fentanyl 100 mcg/hr transdermal patch RxNorm: 197214 1 Patch TD Q72H 11/25/2016 12/24/2016 Inactive hyoscyamine 0.125 mg disintegrating tablet RxNorm: 7706650 Tablet(s) 1-2 Tablet(s ) PO Q8 as needed 11/25/2016 12/14/2016 Inactive nystatin 100,000 unit/gram topical powder RxNorm: 636535 APPLY UNDER BREASTS TWICE DAILY FOR YEAST SKIN INFECTION AND APPLY TO UNDERARM AND ABDOMINAL FOLDS AND PERIAREA TWICE DAILY 11/24/20162016 Inactive 11/24/2016 9:34:02 AM hydrocodone 10 mg-acetaminophen 325 mg tablet RxNorm: 541732 1 Tablet(s) PO scheduled BID et Q6 hours as needed 11/02/2016 12/01/2016 Inactive cyanocobalamin (vit B-12) 1,000 mcg tablet RxNorm: 387193 1 Tablet(s) PO daily 11/02/2016 01/17/2017 Inactive hyoscyamine 0.125 mg disintegrating tablet RxNorm: 1933388 1-2 Tablet(s) PO Q8 as needed 10/19/2016 11/24/2016 Inactive fentanyl 100 mcg/hr transdermal patch RxNorm: 992197 1 Patch TD Q72H 10/13/2016 11/11/2016 Inactive hydrocodone 10 mg-acetaminophen 325 mg tablet RxNorm: 095509 1 Tablet(s) PO scheduled BID et Q6 hours as needed 10/05/2016 11/01/2016 Inactive baclofen 10 mg tablet RxNorm: 385189 TAKE 1 TABLET THREE TIMES DAILY VIA STOMACH TUBE 10/01/2016 11/14/2016 Inactive 10/01/2016 9:24:37 AM carvedilol 3.125 mg tablet RxNorm: 439733 GIVE 1 TABLET VIA PEG TUBE 2 TIMES A DAY 09/30/2016 12/28/2016 Inactive Generic For:COREG 3.125MG 09/30/2016 1:12:28 PM09/25/2016 9:06:11 AM Probiotic Blend 2 million cell-50 mg capsule RxNorm: 1 Capsule(s) PO BID 09/17/2016 09/23/2016 Inactive Keflex 500 mg capsule RxNorm: 149440 1 Capsule(s) PO TID 201609/23/2016 Inactive hyoscyamine 0.125 mg/5 mL oral elixir RxNorm: 8863411 5 Milliliter(s) PO TID 09/08/2016 09/17/2016 Inactive hyoscyamine 0.125 mg/5 mL oral elixir RxNorm: 4604218 5 Milliliter(s) PO TID 09/08/2016 09/07/2016 Inactive hyoscyamine 0.125 mg disintegrating tablet RxNorm: 8202444 1-2 Tablet(s) PO Q8 as needed 09/07/2016 10/18/2016 Inactive fentanyl 100 mcg/hr transdermal patch RxNorm: 809653 1 Patch TD Q72H 09/01/2016 09/30/2016 Inactive ranitidine 150 mg tablet RxNorm: 550483 1 Tablet(s) PO BID 08/2016 No Stop Date Active hydrocodone 10 mg-acetaminophen 325 mg tablet RxNorm: 189800 1 Tablet(s) PO scheduled BID et Q6 hours as needed 08/24/2016 09/22/2016 Inactive cyanocobalamin (vit B-12) 1,000 mcg tablet RxNorm: 064086 1 Tablet(s) PO daily 08/12/2016 11/01/2016 Inactive cyanocobalamin (vit B-12) 1,000 mcg tablet RxNorm: 760022 1 Tablet(s) PO daily 08/12/2016 08/11/2016 Inactive hydrocodone 10 mg-acetaminophen 325 mg tablet RxNorm: 068087 1-2 Tablet(s) PO Q6 as needed 08/03/2016 08/17/2016 Inactive fentanyl 100 mcg/hr transdermal patch RxNorm: 911523 1 Patch TD Q72H 08/03/2016 08/31/2016 Inactive nystatin 100,000 unit/gram topical powder RxNorm: 794776 APPLY UNDER BREASTS TWICE DAILY FOR YEAST SKIN INFECTION AND APPLY TO UNDERARM AND ABDOMINAL FOLDS AND PERIAREA TWICE DAILY 07/17/20162016 Inactive 07/17/2016 3:56:54 PM fentanyl 100 mcg/hr transdermal patch RxNorm: 147970 1 Patch TD Q72H 07/15/2016 08/02/2016 Inactive lisinopril 20 mg tablet RxNorm: 014020 1 Tablet(s) PO daily 03/28/2017 Inactive hydrocodone 10 mg-acetaminophen 325 mg tablet RxNorm: 110467 1-2 Tablet(s) PO Q6 as needed 07/01/2016 07/15/2016 Inactive Xarelto 20 mg tablet RxNorm: 9972866 Tablet(s) TAKE 1 TABLET VIA PEG TUBE AT BEDTIME 06/19/2016 04/14/2017 Inactive fentanyl 100 mcg/hr transdermal patch RxNorm: 866211 1 Patch TD Q72H 06/17/2016 07/14/2016 Inactive nystatin 100,000 unit/gram topical powder RxNorm: 766424 APPLY TO UNDER BREASTS TWICE DAILY FOR YEAST SKIN INFECTION AND APPLY TO UNDERARM AND ABDOMINAL FOLDS AND PERIAREA TWICE DAILY 06/15/20162016 Inactive Generic For:MYCOSTATIN 100, 000 UNITS/GM PW 06/15/2016 12:28:26 PM fentanyl 100 mcg/hr transdermal patch RxNorm: 685675 1 Patch TD Q72H 06/05/2016 06/16/2016 Inactive hydrocodone 10 mg-acetaminophen 325 mg tablet RxNorm: 875273 1-2 Tablet(s) PO Q6 as needed 06/02/2016 06/16/2016 Inactive Probiotic Blend 2 million cell-50 mg capsule RxNorm: 1 Capsule(s) PO BID 05/13/2016 05/19/2016 Inactive nitrofurantoin 100 mg capsule RxNorm: 693212 1 Capsule(s) PO BID 05/13/2016 05/19/2016 Inactive nitrofurantoin 100 mg capsule RxNorm: 396417 1 Capsule(s) PO BID 05/13/2016 05/12/2016 Inactive fentanyl 75 mcg/hr transdermal patch RxNorm: 120910 1 Patch TD Q72H 05/13/2016 06/04/2016 Inactive Keflex 500 mg capsule RxNorm: 119431 1 Capsule(s) PO TID 201605/13/2016 Inactive Patient at [facility] Keflex 500 mg capsule RxNorm: 545150 1 Capsule(s) PO TID 201605/06/2016 Inactive hydrocodone 10 mg-acetaminophen 325 mg tablet RxNorm: 563423 1-2 Tablet(s) PO Q6 as needed 05/04/2016 06/01/2016 Inactive hydrochlorothiazide 25 mg tablet RxNorm: 393085 Tablet(s) GIVE 1 TABLET VIA PEG TUBE ONCE A DAY 04/29/2016 11/24/2016 Inactive hydrochlorothiazide 25 mg tablet RxNorm: 359974 GIVE 1 TABLET VIA PEG TUBE ONCE A DAY 04/22/2016 04/28/2016 Inactive Generic For:HYDRODIURIL 25 MG TABLET refill request fentanyl 75 mcg/hr transdermal patch RxNorm: 803682 1 Patch TD Q72H 04/17/2016 05/12/2016 Inactive Xarelto 20 mg tablet RxNorm: 7571837 TAKE 1 TABLET VIA PEG TUBE AT BEDTIME 04/16/2016 06/14/2016 Inactive 04/16/2016 9:08:52 AM citalopram 40 mg tablet RxNorm: 514114 1 Tablet(s) PO daily 02/201702/25/2017 Inactive citalopram 40 mg tablet RxNorm: 727428 1 Tablet(s) PO daily 08/201604/01/2016 Inactive hydrocodone 10 mg-acetaminophen 325 mg tablet RxNorm: 498761 1-2 Tablet(s) PO Q6 as needed 03/27/2016 04/25/2016 Inactive fentanyl 75 mcg/hr transdermal patch RxNorm: 366370 1 Patch TD Q72H 03/18/2016 04/16/2016 Inactive hydrocodone 10 mg-acetaminophen 325 mg tablet RxNorm: 058193 1-2 Tablet(s) PO Q6 as needed 03/11/2016 03/26/2016 Inactive citalopram 40 mg tablet RxNorm: 446686 1 Tablet(s) PO daily 03/26/2016 Inactive Levemir FlexTouch U-100 Insulin 100 unit/mL (3 mL) subcutaneous pen RxNorm: 552736 20 Unit(s) SQ BID 03/02/201611/2016 Inactive lisinopril 20 mg tablet RxNorm: 427004 1 Tablet(s) PO daily 08/201507/01/2016 Inactive Ativan 0.5 mg tablet RxNorm: 428965 1 Tablet(s) PO Q4H as needed 02/18/2016 04/14/2017 Inactive Xarelto 20 mg tablet RxNorm: 9954146 TAKE 1 TABLET VIA PEG TUBE AT BEDTIME 02/12/2016 04/11/2016 Inactive 02/12/2016 9:08:22 AM hydrocodone 10 mg-acetaminophen 325 mg tablet RxNorm: 350484 1-2 Tablet(s) PO Q6 as needed 02/12/2016 03/10/2016 Inactive fentanyl 75 mcg/hr transdermal patch RxNorm: 155394 1 Patch TD Q72H 02/11/2016 03/11/2016 Inactive citalopram 20 mg tablet RxNorm: 729236 1 Tablet(s) PO daily 10/201503/03/2016 Inactive fentanyl 75 mcg/hr transdermal patch RxNorm: 219611 1 TD Q72H 01/17/2016 02/10/2016 Inactive hydrocodone 10 mg-acetaminophen 325 mg tablet RxNorm: 319872 1-2 Tablet(s) PO Q6 as needed 01/07/2016 02/05/2016 Inactive fentanyl 50 mcg/hr transdermal patch RxNorm: 336255 1 TD Q72H 01/01/2016 01/16/2016 Inactive fentanyl 50 mcg/hr transdermal patch RxNorm: 173304 1 TD q 3 days 12/26/2015 12/31/2015 Inactive Xarelto 20 mg tablet RxNorm: 1791463 TAKE 1 TABLET VIA PEG TUBE AT BEDTIME 12/17/2015 02/11/2016 Inactive 12/16/2015 3:27:57 PM12/14/2015 9:45:17 AM hydrocodone 10 mg-acetaminophen 325 mg tablet RxNorm: 111937 1-2 Tablet(s) PO Q6 as needed 12/06/2015 01/04/2016 Inactive fentanyl 50 mcg/hr transdermal patch RxNorm: 648461 1 TD q 3 days 12/06/2015 12/25/2015 Inactive fentanyl 25 mcg/hr transdermal patch RxNorm: 078809 1 TD q 3 days 11/18/2015 12/05/2015 Inactive Zithromax Z-Eliu 250 mg tablet RxNorm: 415722 1 Tablet(s) PO UD 10/09/2015 02/26/2016 Inactive z pack as directed- please write out instructions- pt at [facility] nystatin 100,000 unit/gram topical powder RxNorm: 287698 APPLY TO UNDER BREASTS TWICE DAILY FOR YEAST SKIN INFECTION AND APPLY TO UNDERARM AND ABDOMINAL FOLDS AND PERIAREA TWICE DAILY 10/07/20152015 Inactive Generic For:MYCOSTATIN 100, 000 UNITS/GM PW 10/05/2015 12:07:35 PM fentanyl 25 mcg/hr transdermal patch RxNorm: 593617 1 TD q 3 days 10/03/2015 11/01/2015 Inactive fentanyl 25 mcg/hr transdermal patch RxNorm: 072510 1 TD q 3 days 09/27/2015 10/02/2015 Inactive fentanyl 25 mcg/hr transdermal patch RxNorm: 029484 1 TD q 3 days 09/17/2015 09/26/2015 Inactive fentanyl 25 mcg/hr transdermal patch RxNorm: 060157 1 TD q 3 days 08/30/2015 09/16/2015 Inactive hydrocodone 5 mg-acetaminophen 325 mg tablet RxNorm: 483551 1 Tablet(s) PO Q6 as needed 08/30/2015 09/28/2015 Inactive Diflucan 100 mg tablet RxNorm: 704518 1 Tablet(s) Miscellaneous per peg daily 07/29/2015 08/04/2015 Inactive fentanyl 25 mcg/hr transdermal patch RxNorm: 272790 1 TD q 3 days 07/18/2015 08/29/2015 Inactive hydrocodone 5 mg-acetaminophen 325 mg tablet RxNorm: 687510 1 Tablet(s) PO Q6 as needed 07/18/2015 08/29/2015 Inactive Diflucan 100 mg tablet RxNorm: 185014 1 Tablet(s) Miscellaneous per peg daily 06/17/2015 06/23/2015 Inactive Senna-S 8.6 mg-50 mg tablet RxNorm: 398583 1 Tablet(s) PO daily as needed constipation No Start Date Active Dulcolax (bisacodyl) 10 mg rectal suppository RxNorm: 765684 1 Suppository RTL daily as needed constipation No Start Date Active albuterol sulfate concentrate 5 mg/mL(0.5 %) solution for nebulization RxNorm: 191923 1 Vial INH daily as needed congestion No Start Date Active polyethylene glycol 3350 17 gram/dose oral powder RxNorm: 325510 17 Gram(s) PO daily as needed constipation No Start Date Active baclofen 10 mg tablet RxNorm: 783524 1 Tablet(s) PO TID No Start Date 09/30/2016 Inactive Ativan 0.5 mg tablet RxNorm: 288804 1 Tablet(s) PO Q4H as needed No Start Date 02/17/2016 Inactive ranitidine 150 mg tablet RxNorm: 853038 1 Tablet(s) PO daily No Start Date 08/24/2016 Inactive carvedilol 3.125 mg tablet RxNorm: 894746 1 Tablet(s) PO daily No Start Date 09/29/2016 Inactive citalopram 40 mg tablet RxNorm: 334104 1 Tablet(s) PO daily No Start Date 01/27/2016 Inactive Probiotic Blend oral RxNorm: oral No Start Date 05/12/2016 Inactive hydrochlorothiazide 25 mg tablet RxNorm: 847807 1 Tablet(s) PO daily No Start Date 04/21/2016 Inactive Levemir FlexTouch 100 unit/mL (3 mL) subcutaneous insulin pen RxNorm: 288953 10 Unit(s) SQ BID No Start Date 03/01/2016 Inactive Zithromax Z-Eliu 250 mg tablet RxNorm: 263768 1 Tablet(s) PO UD No Start Date 10/08/2015 Inactive z pack as directed- please write out instructions- pt at [facility] nystatin 100,000 unit/gram topical powder RxNorm: 500304 Gram(s) TOP BID as needed No Start Date 10/06/2015 Inactive pravastatin 40 mg tablet RxNorm: 956429 Tablet(s) PO daily No Start Date 04/14/2017 Inactive lorazepam 0.5 mg tablet RxNorm: 687451 1/2 Tablet(s) PO BID No Start Date 05/02/2017 Inactive Xarelto 20 mg tablet RxNorm: 7667678 1 Tablet(s) PO daily No Start Date 12/16/2015 Inactive fentanyl 25 mcg/hr transdermal patch RxNorm: 131568 1 TD q 3 days No Start Date 07/17/2015 Inactive lisinopril 20 mg tablet RxNorm: 378035 1 Tablet(s) PO daily No Start Date 02/24/2016 Inactive hydrocodone 5 mg-acetaminophen 325 mg tablet RxNorm: 040388 1 Tablet(s) PO Q6 as needed No Start Date 07/17/2015 Inactive citalopram 40 mg tablet RxNorm: 074508 1 Tablet(s) PO daily No Start Date 03/03/2016 Inactive hyoscyamine 0.125 mg disintegrating tablet RxNorm: 0365702 1-2 Tablet(s) PO Q8 as needed No [...] left shoulder ICD-10: M25.512 ICD-9: 719.41 09/09/2017 Type 2 diabetes mellitus with hyperglycemia ICD-10: E11.65 ICD-9: 250.02 09/09/2017 Low back pain ICD-10: M54.5 ICD-9: 724.2 06/08/2017 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 ICD-9: 536.49 11/09/2016 Urinary tract infection, site not specified ICD-10: N39.0 ICD-9: 599.0 09/17/2016 Impacted cerumen, right ear ICD-10: H61.21 ICD-9: 389.8 07/18/2015 Cervicalgia ICD-10: M54.2 ICD-9: 723.1 07/18/2015 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 ICD-9: 438.82 07/18/2015 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 ICD-9: V44.1 [...] Code Item Item Code Result Date %Hba1C Ufs849 % HbA1c 26221-7 5.5 % 11/04/2017 %Hba1C Tqr006 Gluc Ave 111 mg/dL 11/04/2017 Culture Urine [id number] URINE CULTURE SEE NOTES 10/04/2017 Culture Urine [id number] Continued Results 10/04/2017 Urine Culture Ucult Complete [...] U-VOL VOLUME SUFFICIENT (10mL) 10/01/2017 Urinalysis Ord28 U-Com Culture to follow 10/01/2017 Urinalysis Ord28 U-Yeast NEGATIVE 10/01/2017 B12 Ynz226 B12 >1500.00 pg/ml 02/19/2017 Comp Metabolic Qqu714 NA 138 mEq/L 02/02/2017 Comp Metabolic Dwg665 K 4.5 mEq/L 02/02/2017 Comp Metabolic Adq670 CL 98 mEq/L 02/02/2017 Comp Metabolic Std812 CO2 37.0 mEq/L 02/02/2017 Comp Metabolic Mpo289 ANION GAP 8 02/02/2017 Comp Metabolic Bsm839 GLUCOSE 94 mg/dL 02/02/2017 Comp Metabolic Sty757 Creat 0.7 mg/dL 02/02/2017 Comp Metabolic Hif691 eGFR 88 ml/min/1.73m2 02/02/2017 Comp Metabolic Ipr766 BUN 36 mg/dL 02/02/2017 Comp Metabolic Xqq182 B/C Ratio 50.7 Ratio 02/02/2017 Comp Metabolic Nrw714 CALCIUM 9.0 mg/dL 02/02/2017 Comp Metabolic Qrx723 ALK PHOS 78 U/L 02/02/2017 Comp Metabolic Ptz052 AST(SGOT) 22 U/L 02/02/2017 Comp Metabolic Kww845 ALT(SGPT) 28 U/L 02/02/2017 Comp Metabolic Wlf002 BILI T 0.3 mg/dL 02/02/2017 Comp Metabolic Zld504 ALBUMIN 3.3 g/dL 02/02/2017 Comp Metabolic Tpw158 TPRO 5.9 g/dL 02/02/2017 Comp Metabolic Dts244 GLOB 2.6 g/dL 02/02/2017 Comp Metabolic Nkt694 A/G Ratio 1.3 Ratio 02/02/2017 Comp Metabolic Egh923 Osmo 284 mOsmo 02/02/2017 %Hba1C Rqh626 % HbA1c 44824-6 5.2 % 02/02/2017 %Hba1C Eip982 Gluc Ave 103 mg/dL 02/02/2017 Cbc With Differential Ord2 WBC 7.26 K/ul 02/02/2017 Cbc With Differential Ord2 RBC 3.36 M/ul 02/02/2017 Cbc With Differential Ord2 HGB 10.6 g/dl 02/02/2017 Cbc With Differential Ord2 HCT 33.9 % 02/02/2017 Cbc With Differential Ord2 Neut% 55.0 % 02/02/2017 Cbc With Differential Ord2 Lymph% 31.4 % 02/02/2017 Cbc With Differential Ord2 MCV 100.9 fl 02/02/2017 Cbc With Differential Ord2 MCH 31.5 pg 02/02/2017 Cbc With Differential Ord2 [place]% 8.3 % 02/02/2017 Cbc With Differential Ord2 Eos% 5.2 % 02/02/2017 Cbc With Differential Ord2 MCHC 31.3 pg 02/02/2017 Cbc With Differential Ord2 Baso% 0.1 % 02/02/2017 Cbc With Differential Ord2 PLT 127 K/ul 02/02/2017 Cbc With Differential Ord2 RDW 12.3 % 02/02/2017 Cbc With Differential Ord2 Neut ABS# 3.99 K/ul 02/02/2017 Cbc With Differential Ord2 Lymph ABS# 2.28 K/ul 02/02/2017 Cbc With Differential Ord2 [place] ABS# 0.6 K/ul 02/02/2017 Cbc With Differential Ord2 Eos ABS# 0.4 K/ul 02/02/2017 Cbc With Differential Ord2 Baso ABS# 0.0 K/ul 02/02/2017 %Hba1C Sfg557 % HbA1c 21376-3 5.0 % 10/29/2016 %Hba1C Jui397 Gluc Ave 97 mg/dL 10/29/2016 Culture Urine [id number] URINE CULTURE SEE NOTES 09/21/2016 Culture Urine [id number] Continued Results 09/21/2016 Urine Culture Ucult Complete [...] 11.6 g/dl 07/30/2016 Cbc With Differential Ord2 HCT 35.6 % 07/30/2016 Cbc With Differential Ord2 Neut% 43.9 % 07/30/2016 Cbc With Differential Ord2 MCV 99.4 fl 07/30/2016 Cbc With Differential Ord2 Lymph% 41.3 % 07/30/2016 Cbc With Differential Ord2 MCH 32.4 pg 07/30/2016 Cbc With Differential Ord2 [place]% 7.2 % 07/30/2016 Cbc With Differential Ord2 Eos% 7.4 % 07/30/2016 Cbc With Differential Ord2 MCHC 32.6 pg 07/30/2016 Cbc With Differential Ord2 Baso% 0.2 % 07/30/2016 Cbc With Differential Ord2 PLT 160 K/ul 07/30/2016 Cbc With Differential Ord2 Neut ABS# 2.86 K/ul 07/30/2016 Cbc With Differential Ord2 RDW 12.1 % 07/30/2016 Cbc With Differential Ord2 Lymph ABS# 2.69 K/ul 07/30/2016 Cbc With Differential Ord2 [place] ABS# 0.5 K/ul 07/30/2016 Cbc With Differential Ord2 Eos ABS# 0.5 K/ul 07/30/2016 Cbc With Differential Ord2 Baso ABS# 0.0 K/ul 07/30/2016 A1C Frequency Cwc282 A1CF 77516-0 Last A1C [place] [facility] [place] [facility] [place]: 05-12-2016 07/30/2016 Comp Metabolic Kap602 NA 141 mEq/L 07/30/2016 Comp Metabolic Ssd036 K 4.3 mEq/L 07/30/2016 Comp Metabolic Xju197 CL 100 mEq/L 07/30/2016 Comp Metabolic Bck475 CO2 33.0 mEq/L 07/30/2016 Comp Metabolic Vqy304 ANION GAP 12 07/30/2016 Comp Metabolic Jez566 GLUCOSE 64 mg/dL 07/30/2016 Comp Metabolic Cvd007 Creat 0.5 mg/dL 07/30/2016 Comp Metabolic Uxe676 eGFR 126 ml/min/1.73m2 07/30/2016 Comp Metabolic Oef668 BUN 25 mg/dL 07/30/2016 Comp Metabolic Cvn926 B/C Ratio 48.1 Ratio 07/30/2016 Comp Metabolic Zbd474 CALCIUM 8.9 mg/dL 07/30/2016 Comp Metabolic Mku972 ALK PHOS 90 U/L 07/30/2016 Comp Metabolic Aqj536 AST(SGOT) 22 U/L 07/30/2016 Comp Metabolic Hrx403 ALT(SGPT) 36 U/L 07/30/2016 Comp Metabolic Ftr728 BILI T 0.3 mg/dL 07/30/2016 Comp Metabolic Pzx418 ALBUMIN 3.4 g/dL 07/30/2016 Comp Metabolic Lxq560 TPRO 6.0 g/dL 07/30/2016 Comp Metabolic Fqv104 GLOB 2.7 g/dL 07/30/2016 Comp Metabolic Qkv026 A/G Ratio 1.3 Ratio 07/30/2016 Comp Metabolic Cci909 Osmo 284 mOsmo 07/30/2016 %Hba1C Ofr603 % HbA1c 53185-5 5.2 % 05/12/2016 %Hba1C Cwu738 Gluc Ave 103 mg/dL 05/12/2016 Culture Urine [id number] URINE CULTURE SEE NOTES 05/11/2016 Urine Culture [...] Urinalysis Ord28 U-Yeast NEGATIVE 05/06/2016 Culture Urine [id number] URINE CULTURE SEE NOTES 03/17/2016 Culture Urine [id number] Continued Results 03/17/2016 Urine Culture Ucult Complete [...] 13.3 g/dl 02/11/2016 Cbc With Differential Ord2 Neut% 47.1 % 02/11/2016 Cbc With Differential Ord2 HCT 42.1 % 02/11/2016 Cbc With Differential Ord2 MCV 101.2 fl 02/11/2016 Cbc With Differential Ord2 Lymph% 38.8 % 02/11/2016 Cbc With Differential Ord2 MCH 32.0 pg 02/11/2016 Cbc With Differential Ord2 [place]% 9.1 % 02/11/2016 Cbc With Differential Ord2 MCHC 31.6 pg 02/11/2016 Cbc With Differential Ord2 Eos% 4.9 % 02/11/2016 Cbc With Differential Ord2 Baso% 0.1 % 02/11/2016 Cbc With Differential Ord2 PLT 174 K/ul 02/11/2016 Cbc With Differential Ord2 Neut ABS# 3.14 K/ul 02/11/2016 Cbc With Differential Ord2 RDW 12.5 % 02/11/2016 Cbc With Differential Ord2 Lymph ABS# 2.59 K/ul 02/11/2016 Cbc With Differential Ord2 [place] ABS# 0.6 K/ul 02/11/2016 Cbc With Differential Ord2 Eos ABS# 0.3 K/ul 02/11/2016 Cbc With Differential Ord2 Baso ABS# 0.0 K/ul 02/11/2016 Comp Metabolic Jfv949 NA 137 mEq/L 02/11/2016 Comp Metabolic Jhx871 K 4.4 mEq/L 02/11/2016 Comp Metabolic Xfi202 CL 100 mEq/L 02/11/2016 Comp Metabolic Twt365 CO2 25.0 mEq/L 02/11/2016 Comp Metabolic Ofb432 ANION GAP 16 02/11/2016 Comp Metabolic Ufj635 GLUCOSE 99 mg/dL 02/11/2016 Comp Metabolic Jns197 Creat 0.6 mg/dL 02/11/2016 Comp Metabolic Pdf260 eGFR 99 ml/min/1.73m2 02/11/2016 Comp Metabolic Qiq814 BUN 27 mg/dL 02/11/2016 Comp Metabolic Aty621 B/C Ratio 42.2 Ratio 02/11/2016 Comp Metabolic Wsr056 CALCIUM 9.2 mg/dL 02/11/2016 Comp Metabolic Ynf293 ALK PHOS 74 U/L 02/11/2016 Comp Metabolic Uac743 AST(SGOT) 24 U/L 02/11/2016 Comp Metabolic Gxz177 ALT(SGPT) 26 U/L 02/11/2016 Comp Metabolic Bpt963 BILI T 0.5 mg/dL 02/11/2016 Comp Metabolic Vst594 ALBUMIN 3.5 g/dL 02/11/2016 Comp Metabolic Mzd233 TPRO 6.2 g/dL 02/11/2016 Comp Metabolic Xom180 GLOB 2.7 g/dL 02/11/2016 Comp Metabolic Lft283 A/G Ratio 1.3 Ratio 02/11/2016 Comp Metabolic Bxd674 Osmo 279 mOsmo 02/11/2016 Review of Systems [...] Code : 8480-6 BMI: 31.4 Code : 26389-5 Heart Rate 1 : 72 bpm Height: 5'1" Weight: 166 lbs 06/17/2015 Blood Pressure 1: 110/78 Code : 8480-6 BMI: 33.3 Code : 10450-2 Heart Rate 1 : 74 bpm Height: [...] Present Encounters Encounter Performer Location Codes Date ([id number]) [id number] EST. PATIENT, LEVEL IV Diagnosis: Type 2 diabetes mellitus with hyperglycemia[ICD10: E11.65] Diagnosis: Essential (primary) hypertension[ICD10: I10] Diagnosis: Pain in left shoulder[ICD10: M25.512] Diagnosis: Pain in right shoulder[ICD10: M25.511] Diagnosis: Pain in left knee[ICD10: M25.562] Diagnosis: Pain in right knee[ICD10: M25.561] Vonda Everett MD, [facility] CPT-4: 17212 09/09/2017 [id number] EST. PATIENT, LEVEL IV Diagnosis: Essential (primary) hypertension[ICD10: I10] Diagnosis: Type 2 diabetes mellitus with hyperglycemia[ICD10: E11.65] Diagnosis: Low back pain[ICD10: M54.5] Sunitha Everett MD, [facility] CPT-4 : 93955 06/08/2017 ([id number]) [id number] EST. PATIENT, LEVEL IV Diagnosis: Essential (primary) hypertension[ICD10: I10] Diagnosis: Type 2 diabetes mellitus with hyperglycemia[ICD10: E11.65] Diagnosis: Low back pain[ICD10: M54.5] Sunitha Everett MD, [facility] CPT-4 : 25773 04/15/2017 ([id number]) [id number] EST. PATIENT, LEVEL IV Diagnosis: Essential (primary) hypertension[ICD10: I10] Diagnosis: Type 2 diabetes mellitus with hyperglycemia[ICD10: E11.65] Diagnosis: Low back pain[ICD10: M54.5] Vonda Everett MD, [facility] CPT- 4: 29939 02/16/2017 [id number] EST. 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 09/09/2017 Appointment: Vonda Everett WPtel: [address] [place], [place] [id number] (15 min) Moderate 09/09/2017 Patient Education: Patient [...] and PRN pain medications - will have [facility] fax over PRN medication administration record. 06/08/2017 [id number] ([facility] Complex 06/08/2017 Patient Education: Patient [...] over-medication. 04/15/2017 Appointment[id number] ([facility] min) Complex 04/15/2017 Patient Education: Patient [...] hydrocodone today. 02/16/2017 Appointment: [id number] (15 min) Moderate 02/16/2017 Patient Education: Patient [...] or concerns. 11/09/2016 Appointment: [id number] ([facility] min) Complex 11/09/2016 Patient Education: Patient Medication Summary Completed 11/09/2016 Care Plan: Referral Order SNOMED-CT : [id number] Pending 11/09/2016 Patient Education: Patient Medication Summary [...] Follow up weight in 1 month Neck ofhf-augbonnealy-Qfkv PT focus neck/upper body Right earache-cerumen removed with water pick today in the office 07/18/2015 Appointment: (30 min) Complex 07/18/2015 Patient Education: Patient Medication Summary Completed 07/18/2015 Patient Education: Obesity Completed 07/18/2015 Patient Education: .Cervicalgia Neck Pain Completed 07/18/2015 Referral: [facility] WPtel: [phone] Referral Completed 06/25/2015 Visit Plan: Hypertension [...] normal liver response to medications. referral to [facility] therapy for post stroke - left sided weakness, neck stiffness, upper extremity weakness Diabetes Mellitus - controlled - per family report - check labs this week, get report from and [facility]. I spent over an hour with the patient in direct contact. 06/17/2015 Appointment: Vonda Everett WPtel: [phone] New Patient 06/17/2015 Patient Education: Patient Medication Summary Completed 06/17/2015 Patient Education: Obesity Completed 06/17/2015 Patient Education: Hypertension Completed 06/17/2015 Care Plan: Referral Order SNOMED-CT : [id number] Ordered 06/17/2015 Referral: Jorge Luis Carroll Referral Initiated Referral: [facility] WPtel: [phone] Referral Appointment Requested Instructions Comment . Hypertension [...] normal liver response to medications. referral to [facility] therapy for post stroke - left sided weakness, neck stiffness, upper extremity weakness Diabetes Mellitus - controlled - per family report - check labs this week, get report from and [facility]. I spent over an hour with the [...] Follow up weight in 1 month Neck wxhd-kwfbemnoxox-Lxyk PT focus neck/upper body Right earache-cerumen removed [...] and PRN pain medications - will have [facility] fax over PRN medication administration record. . [...]
--- OUTSIDE RECORDS SUMMARY | 2017-12-16 14:33 | XMS REPORT | CCD ---
Author Author [facility] Organization [facility] Address [address] [place] [address] Phone Care Team Providers Care Engineering Vice President Name Role Phone PP Unavailable CCM Unavailable Summary Purpose Interface Exchange Insurance Providers Payer name Policy type / Coverage type Covered constitution party ID Effective Begin Date Effective End Date WPS Medicare Part B Medicare Part B [id number] Unknown Unknown [employer] Medicare Part B [id number] Unknown Unknown Family history Father Diagnosis Age At Onset Arthritis Unknown Hypertension Unknown Mother Diagnosis Age At Onset Diabetes mellitus Type 2 Unknown Depression Unknown Arthritis Unknown Stroke Unknown Hypertension Unknown Sister Diagnosis Age At Onset Colon cancer Unknown Social History Social History Element Codes Description Effective Dates Living arrangements Unknown Intermediate [facility] 04/15/2017 Marital status Unknown Anothony 06/17/2015 Number of children Unknown 3 06/17/2015 Employment Unknown Retired 06/17/[address]: 5114069 Quit over 10 years ago 15+ 06/17/[address]: 764466721 Never drinks alcohol 06/17/2015 Allergies, Adverse Reactions, [...] Instructions hyoscyamine 0.125 mg disintegrating tablet RxNorm: 4685151 1-2 Tablet(s) PO Q8 as needed 11/03/2017 No Stop Date Active carvedilol 3.125 mg tablet RxNorm: 950073 GIVE 1 TABLET VIA PEG TUBE 2 TIMES A DAY 10/22/2017 01/19/2018 Active Generic For:COREG 3.125MG 10/22/2017 9:23:30 AM hydrocodone 10 mg-acetaminophen 325 mg tablet RxNorm: 621340 2 Tablet(s) PO scheduled TID and 1 tab q 4 as needed 10/22/2017 No Stop Date Active Not to exceed 3gm/24hr acetaminophen fentanyl 100 mcg/hr transdermal patch RxNorm: 494445 1 Patch TD Q72H 10/20/2017 11/18/2017 Active Duragesic 75 mcg/hr transdermal patch RxNorm: 292726 1 Patch TD Q72H 10/20/2017 No Stop Date Active lorazepam 0.5 mg tablet RxNorm: 1 Tablet(s) PO BID and 1 tab q 6 hours prn 10/18/2017 No Stop Date Active baclofen 10 mg tablet RxNorm: 402817 TAKE 1 TABLET THREE TIMES DAILY VIA STOMACH TUBE 10/07/2017 03/05/2018 Active 10/07/2017 5:36:15 PM 10/07/2017 5:36:13 PM N O T I C E Last quantity doesn't match original quantity cranberry extract 500 mg tablet RxNorm: 1590952 1 Tablet(s) PO QAM 10/04/2017 01/31/2018 Active Cipro 500 mg tablet RxNorm: 429955 1 Tablet(s) PO BID 201710/03/2017 Inactive dc keflex hydrocodone 10 mg-acetaminophen 325 mg tablet RxNorm: 882254 2 Tablet(s) PO scheduled TID as needed 10/04/20172017 Inactive Not to exceed 3gm/24hr acetaminophen cranberry extract 500 mg tablet RxNorm: 4734176 1 Tablet(s) PO QAM 10/04/2017 10/03/2017 Inactive Cipro 500 mg tablet RxNorm: 097122 1 Tablet(s) PO BID 201710/10/2017 Inactive dc keflex Duragesic 75 mcg/hr transdermal patch RxNorm: 025549 1 Patch TD Q72H 09/20/2017 10/19/2017 Inactive fentanyl 100 mcg/hr transdermal patch RxNorm: 097851 1 Patch TD Q72H 09/20/2017 10/19/2017 Inactive hyoscyamine 0.125 mg disintegrating tablet RxNorm: 6422489 1 Tablet(s) PO TID and 1 Tablet Q4H prn increased secretions 09/15/2017 11/02/2017 Inactive hydrocodone 10 mg-acetaminophen 325 mg tablet RxNorm: 300639 2 Tablet(s) PO scheduled TID and 1-2 Tabs Q4H PRN pain 09/15/2017 10/03/2017 Inactive Not to exceed 3gm/24hr acetaminophen lorazepam 0.5 mg tablet RxNorm: 327268 1 Tablet(s) PO BID 09/1510/17/2017 Inactive Lexapro 10 mg tablet RxNorm: 743923 1 Tablet(s) PO daily 201709/14/2017 Inactive Levemir FlexTouch U-100 Insulin 100 unit/mL (3 mL) subcutaneous pen RxNorm: 652721 10 Unit(s) daily 09/09/201709/15 Inactive lisinopril 10 mg tablet RxNorm: 918386 1 Tablet(s) PO daily 06/05/2018 Active Duragesic 75 mcg/hr transdermal patch RxNorm: 046511 1 Patch TD Q72H 09/09/2017 09/19/2017 Inactive nystatin 100,000 unit/gram topical cream RxNorm: 747569 1 Gram(s) TOP TID until healed to gaulding 09/06/2017 01/03/2018 Active nystatin 100,000 unit/gram topical cream RxNorm: 445987 1 Gram(s) TOP TID until healed to gaulding 09/06/2017 09/05/2017 Inactive hydrocodone 10 mg-acetaminophen 325 mg tablet RxNorm: 838959 2 Tablet(s) PO scheduled TID as needed 08/31/20172017 Inactive Not to exceed 3gm/24hr acetaminophen fentanyl 100 mcg/hr transdermal patch RxNorm: 796585 1 Patch TD Q72H 08/24/2017 09/19/2017 Inactive fentanyl 50 mcg/hr transdermal patch RxNorm: 387684 1 Patch TD Q72H 08/24/2017 09/08/2017 Inactive fentanyl 25 mcg/hr transdermal patch RxNorm: 837624 1 Patch TD Q72H 08/24/2017 08/24/2017 Inactive hyoscyamine 0.125 mg disintegrating tablet RxNorm: 0021515 Tablet(s) 1-2 Tablet(s ) PO Q8 as needed 08/23/2017 09/14/2017 Inactive hydrocodone 10 mg-acetaminophen 325 mg tablet RxNorm: 518486 1 Tablet(s) PO scheduled TID et Q6 hours as needed 08/18/2017 08/30/2017 Inactive Not to exceed 3gm/24hr acetaminophen hydrochlorothiazide 25 mg tablet RxNorm: 147741 GIVE 1 TABLET VIA PEG TUBE ONCE DAILY 08/17/2017 02/12/2018 Active Generic For:HYDRODIURIL 25 MG TABLET 2017 9:01:54 AM08/11/2017 10:12:00 AM lorazepam 0.5 mg tablet RxNorm: 535354 1/2 Tablet(s) PO BID 09/14/2017 Inactive fentanyl 100 mcg/hr transdermal patch RxNorm: 327154 1 Patch TD Q72H 07/26/2017 08/23/2017 Inactive fentanyl 25 mcg/hr transdermal patch RxNorm: 961469 1 Patch TD Q72H 07/26/2017 08/23/2017 Inactive hydrocodone 10 mg-acetaminophen 325 mg tablet RxNorm: 187307 1 Tablet(s) PO scheduled TID et Q6 hours as needed 07/16/2017 08/14/2017 Inactive Not to exceed 3gm/24hr acetaminophen hyoscyamine 0.125 mg disintegrating tablet RxNorm: 7999183 Tablet(s) 1-2 Tablet(s ) PO Q8 as needed 07/13/2017 08/01/2017 Inactive baclofen 10 mg tablet RxNorm: 835490 TAKE 1 TABLET THREE TIMES DAILY VIA STOMACH TUBE 07/12/2017 10/06/2017 Inactive 07/12/2017 9:04:08 AM N O T I C E Last quantity doesn't match original quantity lorazepam 0.5 mg tablet RxNorm: 462853 1/2 Tablet(s) PO BID 08/02/2017 Inactive fentanyl 100 mcg/hr transdermal patch RxNorm: 537041 1 Patch TD Q72H 06/28/2017 07/25/2017 Inactive fentanyl 25 mcg/hr transdermal patch RxNorm: 115835 1 Patch TD Q72H 06/28/2017 07/25/2017 Inactive hyoscyamine 0.125 mg disintegrating tablet RxNorm: 6223387 Tablet(s) 1-2 Tablet(s ) PO Q8 as needed 06/03/2017 06/22/2017 Inactive fentanyl 25 mcg/hr transdermal patch RxNorm: 622560 1 Patch TD Q72H 05/26/2017 06/24/2017 Inactive Levemir FlexTouch U-100 Insulin 100 unit/mL (3 mL) subcutaneous pen RxNorm: 322397 20 Unit(s) SQ BID 05/26/2017 Inactive fentanyl 100 mcg/hr transdermal patch RxNorm: 596633 1 Patch TD Q72H 05/26/2017 06/24/2017 Inactive hydrocodone 10 mg-acetaminophen 325 mg tablet RxNorm: 437531 1 Tablet(s) PO scheduled BID et Q6 hours as needed 05/12/2017 05/11/2017 Inactive hydrocodone 10 mg-acetaminophen 325 mg tablet RxNorm: 612189 1 Tablet(s) PO scheduled TID et Q6 hours as needed 05/12/2017 06/10/2017 Inactive Not to exceed 3gm/24hr acetaminophen docusate sodium 100 mg tablet RxNorm: 8742561 1 Tablet(s) PO BID as needed if no bowel movement 05/10/2017 05/09/2017 Inactive lisinopril 20 mg tablet RxNorm: 310558 1 Tablet(s) PO daily 09/08/2017 Inactive docusate sodium 100 mg tablet RxNorm: 7542758 1 Tablet(s) PO BID as needed if no bowel movement 05/10/2017 09/14/2017 Inactive fentanyl 25 mcg/hr transdermal patch RxNorm: 481118 1 Patch TD Q72H 05/03/2017 05/25/2017 Inactive lorazepam 0.5 mg tablet RxNorm: 050823 1/2 Tablet(s) PO BID 02/201807/01/2017 Inactive fentanyl 100 mcg/hr transdermal patch RxNorm: 979966 1 Patch TD Q72H 04/27/2017 05/25/2017 Inactive Levemir FlexTouch 100 unit/mL (3 mL) subcutaneous insulin pen RxNorm: 852075 10 Unit(s) SQ BID 04/15/2017 No Stop Date Active carvedilol 3.125 mg tablet RxNorm: 953292 Tablet(s) GIVE 1 TABLET VIA PEG TUBE DAILY 04/15/2017 10/21/2017 Inactive hyoscyamine 0.125 mg disintegrating tablet RxNorm: 3150198 1-2 Tablet(s) PO Q8 as needed 04/14/2017 05/03/2017 Inactive hydrocodone 10 mg-acetaminophen 325 mg tablet RxNorm: 131780 1 Tablet(s) PO scheduled BID et Q6 hours as needed 04/13/2017 05/02/2017 Inactive baclofen 10 mg tablet RxNorm: 876686 TAKE 1 TABLET THREE TIMES DAILY VIA STOMACH TUBE 04/08/2017 05/22/2017 Inactive 04/08/2017 9:32:07 AM fentanyl 25 mcg/hr transdermal patch RxNorm: 362111 1 Patch TD Q72H 04/05/2017 05/02/2017 Inactive lidocaine 10 mg/mL (1 %) injection solution RxNorm: 8210161 1 Milliliter(s) Inj daily Mix with rocephin 03/31/20172017 Inactive Pt resides at [facility] lidocaine 10 mg/mL (1 %) injection solution RxNorm: 4651672 1 Milliliter(s) Inj daily Mix with rocephin 03/31/20172017 Inactive Pt resides at [facility] fentanyl 100 mcg/hr transdermal patch RxNorm: 319407 1 Patch TD Q72H 03/29/2017 04/26/2017 Inactive nystatin 100,000 unit/gram topical powder RxNorm: 884351 APPLY UNDER BREASTS TWICE DAILY FOR YEAST SKIN INFECTION AND APPLY TO UNDERARM AND ABDOMINAL FOLDS AND PERIAREA TWICE DAILY 03/29/20172017 Inactive 03/27/2017 9:12:50 AM nystatin 100,000 unit/gram topical powder RxNorm: 723194 APPLY UNDER BREASTS TWICE DAILY FOR YEAST SKIN INFECTION AND APPLY TO UNDERARM AND ABDOMINAL FOLDS AND PERIAREA TWICE DAILY 03/29/20172017 Inactive 03/29/2017 9:42:55 AM2017 9:12:50 AM hyoscyamine 0.125 mg disintegrating tablet RxNorm: 8843495 1-2 Tablet(s) PO Q8 as needed 03/08/2017 03/27/2017 Inactive fentanyl 25 mcg/hr transdermal patch RxNorm: 039758 1 Patch TD Q72H 03/02/2017 03/31/2017 Inactive hydrocodone 10 mg-acetaminophen 325 mg tablet RxNorm: 890274 1 Tablet(s) PO scheduled BID et Q6 hours as needed 02/17/2017 03/18/2017 Inactive fentanyl 100 mcg/hr transdermal patch RxNorm: 179388 1 Patch TD Q72H 02/17/2017 03/18/2017 Inactive Lexapro 10 mg tablet RxNorm: 444180 1 Tablet(s) PO daily 201604/14/2017 Inactive Lexapro 10 mg tablet RxNorm: 702518 1 Tablet(s) PO daily 201602/04/2017 Inactive fentanyl 25 mcg/hr transdermal patch RxNorm: 773596 1 Patch TD Q72H 02/04/2017 03/01/2017 Inactive cyanocobalamin (vit B-12) 1,000 mcg tablet RxNorm: 733979 1 Tablet(s) PO daily 01/18/2017 12/13/2017 Active hyoscyamine 0.125 mg disintegrating tablet RxNorm: 3867441 Tablet(s) 1-2 Tablet(s ) PO Q8 as needed 01/18/2017 02/06/2017 Inactive baclofen 10 mg tablet RxNorm: 989594 TAKE 1 TABLET THREE TIMES DAILY VIA STOMACH TUBE 01/04/2017 02/17/2017 Inactive 01/04/2017 9:25:18 AM fentanyl 100 mcg/hr transdermal patch RxNorm: 092758 1 Patch TD Q72H 12/25/2016 01/23/2017 Inactive hydrochlorothiazide 25 mg tablet RxNorm: 837719 Tablet(s) GIVE 1 TABLET VIA PEG TUBE ONCE A DAY 12/14/2016 07/11/2017 Inactive fentanyl 100 mcg/hr transdermal patch RxNorm: 472870 1 Patch TD Q72H 11/25/2016 12/24/2016 Inactive hyoscyamine 0.125 mg disintegrating tablet RxNorm: 5243562 Tablet(s) 1-2 Tablet(s ) PO Q8 as needed 11/25/2016 12/14/2016 Inactive nystatin 100,000 unit/gram topical powder RxNorm: 901841 APPLY UNDER BREASTS TWICE DAILY FOR YEAST SKIN INFECTION AND APPLY TO UNDERARM AND ABDOMINAL FOLDS AND PERIAREA TWICE DAILY 11/24/20162016 Inactive 11/24/2016 9:34:02 AM hydrocodone 10 mg-acetaminophen 325 mg tablet RxNorm: 873905 1 Tablet(s) PO scheduled BID et Q6 hours as needed 11/02/2016 12/01/2016 Inactive cyanocobalamin (vit B-12) 1,000 mcg tablet RxNorm: 534065 1 Tablet(s) PO daily 11/02/2016 01/17/2017 Inactive hyoscyamine 0.125 mg disintegrating tablet RxNorm: 0108128 1-2 Tablet(s) PO Q8 as needed 10/19/2016 11/24/2016 Inactive fentanyl 100 mcg/hr transdermal patch RxNorm: 664101 1 Patch TD Q72H 10/13/2016 11/11/2016 Inactive hydrocodone 10 mg-acetaminophen 325 mg tablet RxNorm: 918380 1 Tablet(s) PO scheduled BID et Q6 hours as needed 10/05/2016 11/01/2016 Inactive baclofen 10 mg tablet RxNorm: 167255 TAKE 1 TABLET THREE TIMES DAILY VIA STOMACH TUBE 10/01/2016 11/14/2016 Inactive 10/01/2016 9:24:37 AM carvedilol 3.125 mg tablet RxNorm: 822841 GIVE 1 TABLET VIA PEG TUBE 2 TIMES A DAY 09/30/2016 12/28/2016 Inactive Generic For:COREG 3.125MG 09/30/2016 1:12:28 PM09/25/2016 9:06:11 AM Probiotic Blend 2 million cell-50 mg capsule RxNorm: 1 Capsule(s) PO BID 09/17/2016 09/23/2016 Inactive Keflex 500 mg capsule RxNorm: 361709 1 Capsule(s) PO TID 201609/23/2016 Inactive hyoscyamine 0.125 mg/5 mL oral elixir RxNorm: 0230814 5 Milliliter(s) PO TID 09/08/2016 09/17/2016 Inactive hyoscyamine 0.125 mg/5 mL oral elixir RxNorm: 1582311 5 Milliliter(s) PO TID 09/08/2016 09/07/2016 Inactive hyoscyamine 0.125 mg disintegrating tablet RxNorm: 6792063 1-2 Tablet(s) PO Q8 as needed 09/07/2016 10/18/2016 Inactive fentanyl 100 mcg/hr transdermal patch RxNorm: 319686 1 Patch TD Q72H 09/01/2016 09/30/2016 Inactive ranitidine 150 mg tablet RxNorm: 928426 1 Tablet(s) PO BID 08/2016 No Stop Date Active hydrocodone 10 mg-acetaminophen 325 mg tablet RxNorm: 119147 1 Tablet(s) PO scheduled BID et Q6 hours as needed 08/24/2016 09/22/2016 Inactive cyanocobalamin (vit B-12) 1,000 mcg tablet RxNorm: 821088 1 Tablet(s) PO daily 08/12/2016 11/01/2016 Inactive cyanocobalamin (vit B-12) 1,000 mcg tablet RxNorm: 578452 1 Tablet(s) PO daily 08/12/2016 08/11/2016 Inactive hydrocodone 10 mg-acetaminophen 325 mg tablet RxNorm: 809887 1-2 Tablet(s) PO Q6 as needed 08/03/2016 08/17/2016 Inactive fentanyl 100 mcg/hr transdermal patch RxNorm: 352303 1 Patch TD Q72H 08/03/2016 08/31/2016 Inactive nystatin 100,000 unit/gram topical powder RxNorm: 988659 APPLY UNDER BREASTS TWICE DAILY FOR YEAST SKIN INFECTION AND APPLY TO UNDERARM AND ABDOMINAL FOLDS AND PERIAREA TWICE DAILY 07/17/20162016 Inactive 07/17/2016 3:56:54 PM fentanyl 100 mcg/hr transdermal patch RxNorm: 938935 1 Patch TD Q72H 07/15/2016 08/02/2016 Inactive lisinopril 20 mg tablet RxNorm: 365021 1 Tablet(s) PO daily 03/28/2017 Inactive hydrocodone 10 mg-acetaminophen 325 mg tablet RxNorm: 793116 1-2 Tablet(s) PO Q6 as needed 07/01/2016 07/15/2016 Inactive Xarelto 20 mg tablet RxNorm: 2501379 Tablet(s) TAKE 1 TABLET VIA PEG TUBE AT BEDTIME 06/19/2016 04/14/2017 Inactive fentanyl 100 mcg/hr transdermal patch RxNorm: 989104 1 Patch TD Q72H 06/17/2016 07/14/2016 Inactive nystatin 100,000 unit/gram topical powder RxNorm: 404315 APPLY TO UNDER BREASTS TWICE DAILY FOR YEAST SKIN INFECTION AND APPLY TO UNDERARM AND ABDOMINAL FOLDS AND PERIAREA TWICE DAILY 06/15/20162016 Inactive Generic For:MYCOSTATIN 100, 000 UNITS/GM PW 06/15/2016 12:28:26 PM fentanyl 100 mcg/hr transdermal patch RxNorm: 726319 1 Patch TD Q72H 06/05/2016 06/16/2016 Inactive hydrocodone 10 mg-acetaminophen 325 mg tablet RxNorm: 169425 1-2 Tablet(s) PO Q6 as needed 06/02/2016 06/16/2016 Inactive Probiotic Blend 2 million cell-50 mg capsule RxNorm: 1 Capsule(s) PO BID 05/13/2016 05/19/2016 Inactive nitrofurantoin 100 mg capsule RxNorm: 608654 1 Capsule(s) PO BID 05/13/2016 05/19/2016 Inactive nitrofurantoin 100 mg capsule RxNorm: 469018 1 Capsule(s) PO BID 05/13/2016 05/12/2016 Inactive fentanyl 75 mcg/hr transdermal patch RxNorm: 275663 1 Patch TD Q72H 05/13/2016 06/04/2016 Inactive Keflex 500 mg capsule RxNorm: 834319 1 Capsule(s) PO TID 201605/13/2016 Inactive Patient at [facility] Keflex 500 mg capsule RxNorm: 950210 1 Capsule(s) PO TID 201605/06/2016 Inactive hydrocodone 10 mg-acetaminophen 325 mg tablet RxNorm: 063578 1-2 Tablet(s) PO Q6 as needed 05/04/2016 06/01/2016 Inactive hydrochlorothiazide 25 mg tablet RxNorm: 012700 Tablet(s) GIVE 1 TABLET VIA PEG TUBE ONCE A DAY 04/29/2016 11/24/2016 Inactive hydrochlorothiazide 25 mg tablet RxNorm: 899772 GIVE 1 TABLET VIA PEG TUBE ONCE A DAY 04/22/2016 04/28/2016 Inactive Generic For:HYDRODIURIL 25 MG TABLET refill request fentanyl 75 mcg/hr transdermal patch RxNorm: 885774 1 Patch TD Q72H 04/17/2016 05/12/2016 Inactive Xarelto 20 mg tablet RxNorm: 9632110 TAKE 1 TABLET VIA PEG TUBE AT BEDTIME 04/16/2016 06/14/2016 Inactive 04/16/2016 9:08:52 AM citalopram 40 mg tablet RxNorm: 987892 1 Tablet(s) PO daily 02/201702/25/2017 Inactive citalopram 40 mg tablet RxNorm: 352647 1 Tablet(s) PO daily 08/201604/01/2016 Inactive hydrocodone 10 mg-acetaminophen 325 mg tablet RxNorm: 058188 1-2 Tablet(s) PO Q6 as needed 03/27/2016 04/25/2016 Inactive fentanyl 75 mcg/hr transdermal patch RxNorm: 074648 1 Patch TD Q72H 03/18/2016 04/16/2016 Inactive hydrocodone 10 mg-acetaminophen 325 mg tablet RxNorm: 160806 1-2 Tablet(s) PO Q6 as needed 03/11/2016 03/26/2016 Inactive citalopram 40 mg tablet RxNorm: 957134 1 Tablet(s) PO daily 03/26/2016 Inactive Levemir FlexTouch U-100 Insulin 100 unit/mL (3 mL) subcutaneous pen RxNorm: 739103 20 Unit(s) SQ BID 03/02/201611/2016 Inactive lisinopril 20 mg tablet RxNorm: 356077 1 Tablet(s) PO daily 08/201507/01/2016 Inactive Ativan 0.5 mg tablet RxNorm: 779136 1 Tablet(s) PO Q4H as needed 02/18/2016 04/14/2017 Inactive Xarelto 20 mg tablet RxNorm: 7520754 TAKE 1 TABLET VIA PEG TUBE AT BEDTIME 02/12/2016 04/11/2016 Inactive 02/12/2016 9:08:22 AM hydrocodone 10 mg-acetaminophen 325 mg tablet RxNorm: 770497 1-2 Tablet(s) PO Q6 as needed 02/12/2016 03/10/2016 Inactive fentanyl 75 mcg/hr transdermal patch RxNorm: 257154 1 Patch TD Q72H 02/11/2016 03/11/2016 Inactive citalopram 20 mg tablet RxNorm: 252897 1 Tablet(s) PO daily 10/201503/03/2016 Inactive fentanyl 75 mcg/hr transdermal patch RxNorm: 285377 1 TD Q72H 01/17/2016 02/10/2016 Inactive hydrocodone 10 mg-acetaminophen 325 mg tablet RxNorm: 196088 1-2 Tablet(s) PO Q6 as needed 01/07/2016 02/05/2016 Inactive fentanyl 50 mcg/hr transdermal patch RxNorm: 571272 1 TD Q72H 01/01/2016 01/16/2016 Inactive fentanyl 50 mcg/hr transdermal patch RxNorm: 761901 1 TD q 3 days 12/26/2015 12/31/2015 Inactive Xarelto 20 mg tablet RxNorm: 8693066 TAKE 1 TABLET VIA PEG TUBE AT BEDTIME 12/17/2015 02/11/2016 Inactive 12/16/2015 3:27:57 PM12/14/2015 9:45:17 AM hydrocodone 10 mg-acetaminophen 325 mg tablet RxNorm: 407619 1-2 Tablet(s) PO Q6 as needed 12/06/2015 01/04/2016 Inactive fentanyl 50 mcg/hr transdermal patch RxNorm: 060513 1 TD q 3 days 12/06/2015 12/25/2015 Inactive fentanyl 25 mcg/hr transdermal patch RxNorm: 523178 1 TD q 3 days 11/18/2015 12/05/2015 Inactive Zithromax Z-Eliu 250 mg tablet RxNorm: 607618 1 Tablet(s) PO UD 10/09/2015 02/26/2016 Inactive z pack as directed- please write out instructions- pt at [facility] nystatin 100,000 unit/gram topical powder RxNorm: 389419 APPLY TO UNDER BREASTS TWICE DAILY FOR YEAST SKIN INFECTION AND APPLY TO UNDERARM AND ABDOMINAL FOLDS AND PERIAREA TWICE DAILY 10/07/20152015 Inactive Generic For:MYCOSTATIN 100, 000 UNITS/GM PW 10/05/2015 12:07:35 PM fentanyl 25 mcg/hr transdermal patch RxNorm: 465414 1 TD q 3 days 10/03/2015 11/01/2015 Inactive fentanyl 25 mcg/hr transdermal patch RxNorm: 939174 1 TD q 3 days 09/27/2015 10/02/2015 Inactive fentanyl 25 mcg/hr transdermal patch RxNorm: 642634 1 TD q 3 days 09/17/2015 09/26/2015 Inactive fentanyl 25 mcg/hr transdermal patch RxNorm: 742622 1 TD q 3 days 08/30/2015 09/16/2015 Inactive hydrocodone 5 mg-acetaminophen 325 mg tablet RxNorm: 202860 1 Tablet(s) PO Q6 as needed 08/30/2015 09/28/2015 Inactive Diflucan 100 mg tablet RxNorm: 947944 1 Tablet(s) Miscellaneous per peg daily 07/29/2015 08/04/2015 Inactive fentanyl 25 mcg/hr transdermal patch RxNorm: 423336 1 TD q 3 days 07/18/2015 08/29/2015 Inactive hydrocodone 5 mg-acetaminophen 325 mg tablet RxNorm: 592445 1 Tablet(s) PO Q6 as needed 07/18/2015 08/29/2015 Inactive Diflucan 100 mg tablet RxNorm: 691603 1 Tablet(s) Miscellaneous per peg daily 06/17/2015 06/23/2015 Inactive Senna-S 8.6 mg-50 mg tablet RxNorm: 317571 1 Tablet(s) PO daily as needed constipation No Start Date Active Dulcolax (bisacodyl) 10 mg rectal suppository RxNorm: 170832 1 Suppository RTL daily as needed constipation No Start Date Active albuterol sulfate concentrate 5 mg/mL(0.5 %) solution for nebulization RxNorm: 294423 1 Vial INH daily as needed congestion No Start Date Active polyethylene glycol 3350 17 gram/dose oral powder RxNorm: 750564 17 Gram(s) PO daily as needed constipation No Start Date Active baclofen 10 mg tablet RxNorm: 339515 1 Tablet(s) PO TID No Start Date 09/30/2016 Inactive Ativan 0.5 mg tablet RxNorm: 317378 1 Tablet(s) PO Q4H as needed No Start Date 02/17/2016 Inactive ranitidine 150 mg tablet RxNorm: 173989 1 Tablet(s) PO daily No Start Date 08/24/2016 Inactive carvedilol 3.125 mg tablet RxNorm: 407672 1 Tablet(s) PO daily No Start Date 09/29/2016 Inactive citalopram 40 mg tablet RxNorm: 633508 1 Tablet(s) PO daily No Start Date 01/27/2016 Inactive Probiotic Blend oral RxNorm: oral No Start Date 05/12/2016 Inactive hydrochlorothiazide 25 mg tablet RxNorm: 004354 1 Tablet(s) PO daily No Start Date 04/21/2016 Inactive Levemir FlexTouch 100 unit/mL (3 mL) subcutaneous insulin pen RxNorm: 754112 10 Unit(s) SQ BID No Start Date 03/01/2016 Inactive Zithromax Z-Eliu 250 mg tablet RxNorm: 221841 1 Tablet(s) PO UD No Start Date 10/08/2015 Inactive z pack as directed- please write out instructions- pt at [facility] nystatin 100,000 unit/gram topical powder RxNorm: 135828 Gram(s) TOP BID as needed No Start Date 10/06/2015 Inactive pravastatin 40 mg tablet RxNorm: 852799 Tablet(s) PO daily No Start Date 04/14/2017 Inactive lorazepam 0.5 mg tablet RxNorm: 738991 1/2 Tablet(s) PO BID No Start Date 05/02/2017 Inactive Xarelto 20 mg tablet RxNorm: 3159691 1 Tablet(s) PO daily No Start Date 12/16/2015 Inactive fentanyl 25 mcg/hr transdermal patch RxNorm: 490530 1 TD q 3 days No Start Date 07/17/2015 Inactive lisinopril 20 mg tablet RxNorm: 349313 1 Tablet(s) PO daily No Start Date 02/24/2016 Inactive hydrocodone 5 mg-acetaminophen 325 mg tablet RxNorm: 333316 1 Tablet(s) PO Q6 as needed No Start Date 07/17/2015 Inactive citalopram 40 mg tablet RxNorm: 876679 1 Tablet(s) PO daily No Start Date 03/03/2016 Inactive hyoscyamine 0.125 mg disintegrating tablet RxNorm: 2177916 1-2 Tablet(s) PO Q8 as needed No [...] Observation Code Item Item Code Result Date Culture Urine [id number] URINE CULTURE SEE NOTES 10/04/2017 Culture Urine [id number] Continued Results 10/04/2017 Urine Culture Ucult Complete [...] Ord28 U-Com Culture to follow 10/01/2017 B12 Wbk925 B12 >1500.00 pg/ml 02/19/2017 Cbc With Differential [...] 31.5 pg 02/02/2017 Cbc With Differential Ord2 Beckham% 8.3 % 02/02/2017 Cbc With Differential Ord2 [...] 2.28 K/ul 02/02/2017 Cbc With Differential Ord2 [place] ABS# 0.6 K/ul 02/02/2017 Cbc With Differential Ord2 Eos ABS# 0.4 K/ul 02/02/2017 Cbc With Differential Ord2 Baso ABS# 0.0 K/ul 02/02/2017 %Hba1C Jrg152 % HbA1c 34432-8 5.2 % 02/02/2017 %Hba1C Ovb049 Gluc Ave 103 mg/dL 02/02/2017 Comp Metabolic Jms198 NA 138 mEq/L 02/02/2017 Comp Metabolic Mhh102 K 4.5 mEq/L 02/02/2017 Comp Metabolic Wfl360 CL 98 mEq/L 02/02/2017 Comp Metabolic Lxc173 CO2 37.0 mEq/L 02/02/2017 Comp Metabolic Yzy130 ANION GAP 8 02/02/2017 Comp Metabolic Efu457 GLUCOSE 94 mg/dL 02/02/2017 Comp Metabolic Bcf449 Creat 0.7 mg/dL 02/02/2017 Comp Metabolic Unu702 eGFR 88 ml/min/1.73m2 02/02/2017 Comp Metabolic Qnb280 BUN 36 mg/dL 02/02/2017 Comp Metabolic Zup978 B/C Ratio 50.7 Ratio 02/02/2017 Comp Metabolic Gza859 CALCIUM 9.0 mg/dL 02/02/2017 Comp Metabolic Lxs697 ALK PHOS 78 U/L 02/02/2017 Comp Metabolic Tpj733 AST(SGOT) 22 U/L 02/02/2017 Comp Metabolic Wxc729 ALT(SGPT) 28 U/L 02/02/2017 Comp Metabolic Vrb892 BILI T 0.3 mg/dL 02/02/2017 Comp Metabolic Qzv388 ALBUMIN 3.3 g/dL 02/02/2017 Comp Metabolic Lmd194 TPRO 5.9 g/dL 02/02/2017 Comp Metabolic Fzs579 GLOB 2.6 g/dL 02/02/2017 Comp Metabolic Lsj839 A/G Ratio 1.3 Ratio 02/02/2017 Comp Metabolic Ank319 Osmo 284 mOsmo 02/02/2017 %Hba1C Ods410 % HbA1c 84525-1 5.0 % 10/29/2016 %Hba1C Sqb562 Gluc Ave 97 mg/dL 10/29/2016 Culture Urine [id number] URINE CULTURE SEE NOTES 09/21/2016 Culture Urine [id number] Continued Results 09/21/2016 Urine Culture Ucult Complete [...] 41.3 % 07/30/2016 Cbc With Differential Ord2 Beckham% 7.2 % 07/30/2016 Cbc With Differential Ord2 [...] 2.69 K/ul 07/30/2016 Cbc With Differential Ord2 Beckham ABS# 0.5 K/ul 07/30/2016 Cbc With Differential Ord2 Eos ABS# 0.5 K/ul 07/30/2016 Cbc With Differential Ord2 Baso ABS# 0.0 K/ul 07/30/2016 Comp Metabolic Tnh482 NA 141 mEq/L 07/30/2016 Comp Metabolic Zli125 K 4.3 mEq/L 07/30/2016 Comp Metabolic Mpc723 CL 100 mEq/L 07/30/2016 Comp Metabolic Aal081 CO2 33.0 mEq/L 07/30/2016 Comp Metabolic Hcw392 ANION GAP 12 07/30/2016 Comp Metabolic Kal597 GLUCOSE 64 mg/dL 07/30/2016 Comp Metabolic Ubc825 Creat 0.5 mg/dL 07/30/2016 Comp Metabolic Iub397 eGFR 126 ml/min/1.73m2 07/30/2016 Comp Metabolic Xmz740 BUN 25 mg/dL 07/30/2016 Comp Metabolic Oxf751 B/C Ratio 48.1 Ratio 07/30/2016 Comp Metabolic Whh414 CALCIUM 8.9 mg/dL 07/30/2016 Comp Metabolic Qwp807 ALK PHOS 90 U/L 07/30/2016 Comp Metabolic Lry900 AST(SGOT) 22 U/L 07/30/2016 Comp Metabolic Duu846 ALT(SGPT) 36 U/L 07/30/2016 Comp Metabolic Vev490 BILI T 0.3 mg/dL 07/30/2016 Comp Metabolic Sob988 ALBUMIN 3.4 g/dL 07/30/2016 Comp Metabolic Mfc907 TPRO 6.0 g/dL 07/30/2016 Comp Metabolic Gmn575 GLOB 2.7 g/dL 07/30/2016 Comp Metabolic Dqb568 A/G Ratio 1.3 Ratio 07/30/2016 Comp Metabolic Eqy598 Osmo 284 mOsmo 07/30/2016 A1C Frequency Frj159 A1CF 26249-2 Last [place] [facility] [place] 05-12-2016 07/30/2016 %Hba1C Eae006 % HbA1c 43285-8 5.2 % 05/12/2016 %Hba1C Kfe081 Gluc Ave 103 mg/dL 05/12/2016 Culture Urine [id number] URINE CULTURE SEE NOTES 05/11/2016 Urine Culture [...] Urinalysis Ord28 U-Yeast NEGATIVE 05/06/2016 Culture Urine [id number] URINE CULTURE SEE NOTES 03/17/2016 Culture Urine [id number] Continued Results 03/17/2016 Urine Culture Ucult Complete [...] 32.0 pg 02/11/2016 Cbc With Differential Ord2 Beckham% 9.1 % 02/11/2016 Cbc With Differential Ord2 [...] 2.59 K/ul 02/11/2016 Cbc With Differential Ord2 Beckham ABS# 0.6 K/ul 02/11/2016 Cbc With Differential Ord2 Eos ABS# 0.3 K/ul 02/11/2016 Cbc With Differential Ord2 Baso ABS# 0.0 K/ul 02/11/2016 Comp Metabolic Ved348 NA 137 mEq/L 02/11/2016 Comp Metabolic Vuc097 K 4.4 mEq/L 02/11/2016 Comp Metabolic Hgh572 CL 100 mEq/L 02/11/2016 Comp Metabolic Cdn273 CO2 25.0 mEq/L 02/11/2016 Comp Metabolic Vvw208 ANION GAP 16 02/11/2016 Comp Metabolic Ksp517 GLUCOSE 99 mg/dL 02/11/2016 Comp Metabolic Vjw578 Creat 0.6 mg/dL 02/11/2016 Comp Metabolic Bus395 eGFR 99 ml/min/1.73m2 02/11/2016 Comp Metabolic Qso027 BUN 27 mg/dL 02/11/2016 Comp Metabolic Dqh969 B/C Ratio 42.2 Ratio 02/11/2016 Comp Metabolic Saa406 CALCIUM 9.2 mg/dL 02/11/2016 Comp Metabolic Qyw116 ALK PHOS 74 U/L 02/11/2016 Comp Metabolic Rok789 AST(SGOT) 24 U/L 02/11/2016 Comp Metabolic Deu609 ALT(SGPT) 26 U/L 02/11/2016 Comp Metabolic Wwk151 BILI T 0.5 mg/dL 02/11/2016 Comp Metabolic Shd223 ALBUMIN 3.5 g/dL 02/11/2016 Comp Metabolic Vmu148 TPRO 6.2 g/dL 02/11/2016 Comp Metabolic Uum450 GLOB 2.7 g/dL 02/11/2016 Comp Metabolic Miv231 A/G Ratio 1.3 Ratio 02/11/2016 Comp Metabolic Ebw965 Osmo 279 mOsmo 02/11/2016 Review of Systems [...] Code : 8480-6 BMI: 31.4 Code : 04726-0 Heart Rate 1 : 72 bpm Height: 5'1" Weight: 166 lbs 06/17/2015 Blood Pressure 1: 110/78 Code : 8480-6 BMI: 33.3 Code : 75997-9 Heart Rate 1 : 74 bpm Height: [...] Present Encounters Encounter Performer Location Codes Date ([id number]) [id number] EST. PATIENT, LEVEL IV Diagnosis: Type 2 diabetes mellitus with hyperglycemia[ICD10: E11.65] Diagnosis: Essential (primary) hypertension[ICD10: I10] Diagnosis: Pain in left shoulder[ICD10: M25.512] Diagnosis: Pain in right shoulder[ICD10: M25.511] Diagnosis: Pain in left knee[ICD10: M25.562] Diagnosis: Pain in right knee[ICD10: M25.561] Vonda Everett MD, [facility] CPT-4: 45600 09/09/2017 [id number] EST. PATIENT, LEVEL IV Diagnosis: Essential (primary) hypertension[ICD10: I10] Diagnosis: Type 2 diabetes mellitus with hyperglycemia[ICD10: E11.65] Diagnosis: Low back pain[ICD10: M54.5] Sunitha Everett MD, [facility] CPT-4 : 31526 06/08/2017 ([id number]) [id number] EST. PATIENT, LEVEL IV Diagnosis: Essential (primary) hypertension[ICD10: I10] Diagnosis: Type 2 diabetes mellitus with hyperglycemia[ICD10: E11.65] Diagnosis: Low back pain[ICD10: M54.5] Sunitha Everett MD, [facility] CPT-4 : 89210 04/15/2017 ([id number]) 96745 EST. PATIENT, LEVEL IV Diagnosis: Essential (primary) hypertension[ICD10: I10] Diagnosis: Type 2 diabetes mellitus with hyperglycemia[ICD10: E11.65] Diagnosis: Low back pain[ICD10: M54.5] Vonda Everett MD, [facility] CPT- 4: 94977 02/16/2017 11948 EST. 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 09/09/2017 Appointment: Vonda Everett [facility]el[facility] [phone] [facility] [place] (15 min) Moderate 09/09/2017 Patient Education: Patient [...] and PRN pain medications - will have care home fax over PRN medication administration record. 06/08/2017 [phone] ([facility] Complex 06/08/2017 Patient Education: Patient [...] over-medication. 04/15/2017 App[facility]ment[phone] ([facility] min) Complex 04/15/2017 Patient [...] today. 02/16/2017 Appointment: Vonda Everett WPtel: [phone] [facility] [address] (15 min) Moderate 02/16/2017 Patient Education: Patient [...] concerns. 11/09/2016 [phone] ([facility] min) Complex 11/09/2016 Patient Education: Patient Medication Summary Completed 11/09/2016 Care Plan: Referral Order SNOMED-CT : [id number] Pending 11/09/2016 Patient Education: Patient Medication Summary [...] Follow up weight in 1 month Neck csjc-[id number]-Kiyc PT focus neck/upper body Right earache-cerumen removed with water pick today in the office 07/18/2015 Appointment: (30 min) Complex 07/18/2015 Patient Education: Patient Medication Summary Completed 07/18/2015 Patient Education: Obesity Completed 07/18/2015 Patient Education: .Cervicalgia Neck Pain Completed 07/18/2015 Referral: [facility] WPtel: [phone] [facility] Referral Completed 06/25/2015 Visit Plan: Hypertension - [...] normal liver response to medications. referral to [facility] physical and occupational therapy for post stroke - left sided weakness, neck stiffness, upper extremity weakness Diabetes Mellitus - controlled - per family report - check labs this week, get report from and [facility]. I spent over an hour with the patient in direct contact. 06/17/2015 Appointment: Vonda Everett WPtel: [phone] [facility] New Patient 06/17/2015 Patient Education: Patient Medication Summary Completed 06/17/2015 Patient Education: Obesity Completed 06/17/2015 Patient Education: Hypertension Completed 06/17/2015 Care Plan: Referral Order SNOMED-CT : [id number] Ordered 06/17/2015 Referral: Jorge Luis Carroll Referral Initiated Referral: [facility] WPtel: [phone] [facility] Referral Appointment Requested Instructions Comment . Hypertension [...] normal liver response to medications. referral to [facility] physical [facility] occupational therapy for post [...] Add 1 scoop of whey protein from [facility] to 2 feedings per day . [...] Follow up weight in 1 month Neck ydom-isfnettwnku-Ympl PT focus neck/upper body Right earache-cerumen removed [...] and PRN pain medications - will have care home fax over PRN medication administration record. . [...]
--- OUTSIDE RECORDS SUMMARY | 2017-12-16 14:40 | XMS REPORT | CCD ---
Author Author Vonda Everett Organization Vonda Everett MD, [facility] Address [address] [place] [address] Phone Care Team Providers Care Photovoltaic Fabrication Technician Name Role Phone PP Unavailable CCM Unavailable Summary Purpose Interface Exchange Insurance Providers Payer name Policy type / Coverage type Covered democrat ID Effective Begin Date Effective End Date WPS Medicare Part B Medicare Part B [id number] Unknown Unknown [employer] Medicare Part B [id number] Unknown Unknown Family history Father Diagnosis Age At Onset Arthritis Unknown Hypertension Unknown Mother Diagnosis Age At Onset Diabetes mellitus Type 2 Unknown Depression Unknown Arthritis Unknown Stroke Unknown Hypertension Unknown Sister Diagnosis Age At Onset Colon cancer Unknown Social History Social History Element Codes Description Effective Dates Living arrangements Unknown [facility] 04/15/2017 Marital status Unknown Anothony 06/17/2015 Number of children Unknown 3 06/17/2015 Employment Unknown Retired 06/17/[address]: 3071840 Quit over 10 years ago 15+ 06/17/[address]: 020526512 Never drinks alcohol 06/17/2015 Allergies, Adverse Reactions, Alerts Substance Reaction Codes Entered Date Inactivated Date Status MORPHINE SULFATE emesis RxNorm: 7052 06/17/2015 No Inactive Date Active Past Medical History Illness Codes Condition Status Onset Date Resolved Date Essential (primary) hypertension ICD-9: 401.9 ICD-10: I10 Active 07/17/2015 Unknown Low back pain ICD-9: 724.2 ICD-10: M54.5 Active 02/16/2017 Unknown Type 2 diabetes mellitus with hyperglycemia ICD-9: 250.02 ICD-10: E11.65 Active 06/16/2015 Unknown 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 [...] hypertension ICD-9: 401.9 ICD-10: I10 07/17/2015 Active Low back pain ICD-9: 724.2 ICD-10: M54.5 02/16/2017 Active Type 2 diabetes mellitus with hyperglycemia ICD-9: 250.02 ICD-10: E11.65 06/16/2015 Active 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 [...] hydrocodone 10 mg-acetaminophen 325 mg tablet RxNorm: 288009 1 Tablet(s) PO scheduled BID et Q6 hours as needed 05/12/2017 06/10/2017 Active fentanyl 25 mcg/hr transdermal patch RxNorm: 434754 1 Patch TD Q72H 05/03/2017 06/01/2017 Active lorazepam 0.5 mg tablet RxNorm: 111091 1/2 Tablet(s) PO BID 02/2018 No Stop Date Active fentanyl 100 mcg/hr transdermal patch RxNorm: 515657 1 Patch TD Q72H 04/27/2017 05/26/2017 Active carvedilol 3.125 mg tablet RxNorm: 746205 Tablet(s) GIVE 1 TABLET VIA PEG TUBE DAILY 04/15/2017 No Stop Date Active Levemir FlexTouch 100 unit/mL (3 mL) subcutaneous insulin pen RxNorm: 159818 10 Unit(s) SQ BID 04/15/2017 No Stop Date Active hyoscyamine 0.125 mg disintegrating tablet RxNorm: 3725005 1-2 Tablet(s) PO Q8 as needed 04/14/2017 05/03/2017 Inactive hydrocodone 10 mg-acetaminophen 325 mg tablet RxNorm: 532340 1 Tablet(s) PO scheduled BID et Q6 hours as needed 04/13/2017 05/02/2017 Inactive baclofen 10 mg tablet RxNorm: 799432 TAKE 1 TABLET THREE TIMES DAILY VIA STOMACH TUBE 04/08/2017 05/22/2017 Active 04/08/2017 9:32:07 AM fentanyl 25 mcg/hr transdermal patch RxNorm: 360074 1 Patch TD Q72H 04/05/2017 05/02/2017 Inactive lidocaine 10 mg/mL (1 %) injection solution RxNorm: 8289000 1 Milliliter(s) Inj daily Mix with rocephin 03/31/20172017 Inactive Pt resides at [facility] lidocaine 10 mg/mL (1 %) injection solution RxNorm: 5027912 1 Milliliter(s) Inj daily Mix with rocephin 03/31/20172017 Inactive Pt resides at [facility] nystatin 100,000 unit/gram topical powder RxNorm: 255471 APPLY UNDER BREASTS TWICE DAILY FOR YEAST SKIN INFECTION AND APPLY TO UNDERARM AND ABDOMINAL FOLDS AND PERIAREA TWICE DAILY 03/29/20172017 Active 03/29/2017 9:42:55 AM2017 9:12:50 AM fentanyl 100 mcg/hr transdermal patch RxNorm: 083666 1 Patch TD Q72H 03/29/2017 04/26/2017 Inactive nystatin 100,000 unit/gram topical powder RxNorm: 906364 APPLY UNDER BREASTS TWICE DAILY FOR YEAST SKIN INFECTION AND APPLY TO UNDERARM AND ABDOMINAL FOLDS AND PERIAREA TWICE DAILY 03/29/20172017 Inactive 03/27/2017 9:12:50 AM hyoscyamine 0.125 mg disintegrating tablet RxNorm: 2418574 1-2 Tablet(s) PO Q8 as needed 03/08/2017 03/27/2017 Inactive fentanyl 25 mcg/hr transdermal patch RxNorm: 304249 1 Patch TD Q72H 03/02/2017 03/31/2017 Inactive hydrocodone 10 mg-acetaminophen 325 mg tablet RxNorm: 763956 1 Tablet(s) PO scheduled BID et Q6 hours as needed 02/17/2017 03/18/2017 Inactive fentanyl 100 mcg/hr transdermal patch RxNorm: 412439 1 Patch TD Q72H 02/17/2017 03/18/2017 Inactive Lexapro 10 mg tablet RxNorm: 852435 1 Tablet(s) PO daily 201604/14/2017 Inactive Lexapro 10 mg tablet RxNorm: 865031 1 Tablet(s) PO daily 201602/04/2017 Inactive fentanyl 25 mcg/hr transdermal patch RxNorm: 418980 1 Patch TD Q72H 02/04/2017 03/01/2017 Inactive cyanocobalamin (vit B-12) 1,000 mcg tablet RxNorm: 674466 1 Tablet(s) PO daily 01/18/2017 12/13/2017 Active hyoscyamine 0.125 mg disintegrating tablet RxNorm: 3010079 Tablet(s) 1-2 Tablet(s ) PO Q8 as needed 01/18/2017 02/06/2017 Inactive baclofen 10 mg tablet RxNorm: 755700 TAKE 1 TABLET THREE TIMES DAILY VIA STOMACH TUBE 01/04/2017 02/17/2017 Inactive 01/04/2017 9:25:18 AM fentanyl 100 mcg/hr transdermal patch RxNorm: 649978 1 Patch TD Q72H 12/25/2016 01/23/2017 Inactive hydrochlorothiazide 25 mg tablet RxNorm: 405866 Tablet(s) GIVE 1 TABLET VIA PEG TUBE ONCE A DAY 12/14/2016 07/11/2017 Active fentanyl 100 mcg/hr transdermal patch RxNorm: 502369 1 Patch TD Q72H 11/25/2016 12/24/2016 Inactive hyoscyamine 0.125 mg disintegrating tablet RxNorm: 4937810 Tablet(s) 1-2 Tablet(s ) PO Q8 as needed 11/25/2016 12/14/2016 Inactive nystatin 100,000 unit/gram topical powder RxNorm: 316059 APPLY UNDER BREASTS TWICE DAILY FOR YEAST SKIN INFECTION AND APPLY TO UNDERARM AND ABDOMINAL FOLDS AND PERIAREA TWICE DAILY 11/24/20162016 Inactive 11/24/2016 9:34:02 AM hydrocodone 10 mg-acetaminophen 325 mg tablet RxNorm: 076174 1 Tablet(s) PO scheduled BID et Q6 hours as needed 11/02/2016 12/01/2016 Inactive cyanocobalamin (vit B-12) 1,000 mcg tablet RxNorm: 542089 1 Tablet(s) PO daily 11/02/2016 01/17/2017 Inactive hyoscyamine 0.125 mg disintegrating tablet RxNorm: 4688434 1-2 Tablet(s) PO Q8 as needed 10/19/2016 11/24/2016 Inactive fentanyl 100 mcg/hr transdermal patch RxNorm: 026046 1 Patch TD Q72H 10/13/2016 11/11/2016 Inactive hydrocodone 10 mg-acetaminophen 325 mg tablet RxNorm: 242170 1 Tablet(s) PO scheduled BID et Q6 hours as needed 10/05/2016 11/01/2016 Inactive baclofen 10 mg tablet RxNorm: 958594 TAKE 1 TABLET THREE TIMES DAILY VIA STOMACH TUBE 10/01/2016 11/14/2016 Inactive 10/01/2016 9:24:37 AM carvedilol 3.125 mg tablet RxNorm: 157263 GIVE 1 TABLET VIA PEG TUBE 2 TIMES A DAY 09/30/2016 12/28/2016 Inactive Generic For:COREG 3.125MG 09/30/2016 1:12:28 PM09/25/2016 9:06:11 AM Probiotic Blend 2 million cell-50 mg capsule RxNorm: 1 Capsule(s) PO BID 09/17/2016 09/23/2016 Inactive Keflex 500 mg capsule RxNorm: 346165 1 Capsule(s) PO TID 201609/23/2016 Inactive hyoscyamine 0.125 mg/5 mL oral elixir RxNorm: 8082503 5 Milliliter(s) PO TID 09/08/2016 09/17/2016 Inactive hyoscyamine 0.125 mg/5 mL oral elixir RxNorm: 6441269 5 Milliliter(s) PO TID 09/08/2016 09/07/2016 Inactive hyoscyamine 0.125 mg disintegrating tablet RxNorm: 2187982 1-2 Tablet(s) PO Q8 as needed 09/07/2016 10/18/2016 Inactive fentanyl 100 mcg/hr transdermal patch RxNorm: 644284 1 Patch TD Q72H 09/01/2016 09/30/2016 Inactive ranitidine 150 mg tablet RxNorm: 301643 1 Tablet(s) PO BID 08/2016 No Stop Date Active hydrocodone 10 mg-acetaminophen 325 mg tablet RxNorm: 315394 1 Tablet(s) PO scheduled BID et Q6 hours as needed 08/24/2016 09/22/2016 Inactive cyanocobalamin (vit B-12) 1,000 mcg tablet RxNorm: 939428 1 Tablet(s) PO daily 08/12/2016 11/01/2016 Inactive cyanocobalamin (vit B-12) 1,000 mcg tablet RxNorm: 462439 1 Tablet(s) PO daily 08/12/2016 08/11/2016 Inactive hydrocodone 10 mg-acetaminophen 325 mg tablet RxNorm: 414279 1-2 Tablet(s) PO Q6 as needed 08/03/2016 08/17/2016 Inactive fentanyl 100 mcg/hr transdermal patch RxNorm: 521082 1 Patch TD Q72H 08/03/2016 08/31/2016 Inactive nystatin 100,000 unit/gram topical powder RxNorm: 152533 APPLY UNDER BREASTS TWICE DAILY FOR YEAST SKIN INFECTION AND APPLY TO UNDERARM AND ABDOMINAL FOLDS AND PERIAREA TWICE DAILY 07/17/20162016 Inactive 07/17/2016 3:56:54 PM fentanyl 100 mcg/hr transdermal patch RxNorm: 190478 1 Patch TD Q72H 07/15/2016 08/02/2016 Inactive lisinopril 20 mg tablet RxNorm: 254137 1 Tablet(s) PO daily 03/28/2017 Inactive hydrocodone 10 mg-acetaminophen 325 mg tablet RxNorm: 047205 1-2 Tablet(s) PO Q6 as needed 07/01/2016 07/15/2016 Inactive Xarelto 20 mg tablet RxNorm: 7221220 Tablet(s) TAKE 1 TABLET VIA PEG TUBE AT BEDTIME 06/19/2016 04/14/2017 Inactive fentanyl 100 mcg/hr transdermal patch RxNorm: 394352 1 Patch TD Q72H 06/17/2016 07/14/2016 Inactive nystatin 100,000 unit/gram topical powder RxNorm: 978707 APPLY TO UNDER BREASTS TWICE DAILY FOR YEAST SKIN INFECTION AND APPLY TO UNDERARM AND ABDOMINAL FOLDS AND PERIAREA TWICE DAILY 06/15/20162016 Inactive Generic For:MYCOSTATIN 100, 000 UNITS/GM PW 06/15/2016 12:28:26 PM fentanyl 100 mcg/hr transdermal patch RxNorm: 153744 1 Patch TD Q72H 06/05/2016 06/16/2016 Inactive hydrocodone 10 mg-acetaminophen 325 mg tablet RxNorm: 253587 1-2 Tablet(s) PO Q6 as needed 06/02/2016 06/16/2016 Inactive Probiotic Blend 2 million cell-50 mg capsule RxNorm: 1 Capsule(s) PO BID 05/13/2016 05/19/2016 Inactive nitrofurantoin 100 mg capsule RxNorm: 413497 1 Capsule(s) PO BID 05/13/2016 05/19/2016 Inactive nitrofurantoin 100 mg capsule RxNorm: 444340 1 Capsule(s) PO BID 05/13/2016 05/12/2016 Inactive fentanyl 75 mcg/hr transdermal patch RxNorm: 787422 1 Patch TD Q72H 05/13/2016 06/04/2016 Inactive Keflex 500 mg capsule RxNorm: 740680 1 Capsule(s) PO TID 201605/13/2016 Inactive Patient at [facility] Keflex 500 mg capsule RxNorm: 680586 1 Capsule(s) PO TID 201605/06/2016 Inactive hydrocodone 10 mg-acetaminophen 325 mg tablet RxNorm: 517704 1-2 Tablet(s) PO Q6 as needed 05/04/2016 06/01/2016 Inactive hydrochlorothiazide 25 mg tablet RxNorm: 202908 Tablet(s) GIVE 1 TABLET VIA PEG TUBE ONCE A DAY 04/29/2016 11/24/2016 Inactive hydrochlorothiazide 25 mg tablet RxNorm: 621395 GIVE 1 TABLET VIA PEG TUBE ONCE A DAY 04/22/2016 04/28/2016 Inactive Generic For:HYDRODIURIL 25 MG TABLET refill request fentanyl 75 mcg/hr transdermal patch RxNorm: 502548 1 Patch TD Q72H 04/17/2016 05/12/2016 Inactive Xarelto 20 mg tablet RxNorm: 7455186 TAKE 1 TABLET VIA PEG TUBE AT BEDTIME 04/16/2016 06/14/2016 Inactive 04/16/2016 9:08:52 AM citalopram 40 mg tablet RxNorm: 868611 1 Tablet(s) PO daily 02/201702/25/2017 Inactive citalopram 40 mg tablet RxNorm: 562738 1 Tablet(s) PO daily 08/201604/01/2016 Inactive hydrocodone 10 mg-acetaminophen 325 mg tablet RxNorm: 258763 1-2 Tablet(s) PO Q6 as needed 03/27/2016 04/25/2016 Inactive fentanyl 75 mcg/hr transdermal patch RxNorm: 922245 1 Patch TD Q72H 03/18/2016 04/16/2016 Inactive hydrocodone 10 mg-acetaminophen 325 mg tablet RxNorm: 023742 1-2 Tablet(s) PO Q6 as needed 03/11/2016 03/26/2016 Inactive citalopram 40 mg tablet RxNorm: 580185 1 Tablet(s) PO daily 03/26/2016 Inactive Levemir FlexTouch 100 unit/mL (3 mL) subcutaneous insulin pen RxNorm: 374292 20 Unit(s) SQ BID 03/02/2016 09/27/2016 Inactive lisinopril 20 mg tablet RxNorm: 305943 1 Tablet(s) PO daily 08/201507/01/2016 Inactive Ativan 0.5 mg tablet RxNorm: 825989 1 Tablet(s) PO Q4H as needed 02/18/2016 04/14/2017 Inactive Xarelto 20 mg tablet RxNorm: 4833894 TAKE 1 TABLET VIA PEG TUBE AT BEDTIME 02/12/2016 04/11/2016 Inactive 02/12/2016 9:08:22 AM hydrocodone 10 mg-acetaminophen 325 mg tablet RxNorm: 613742 1-2 Tablet(s) PO Q6 as needed 02/12/2016 03/10/2016 Inactive fentanyl 75 mcg/hr transdermal patch RxNorm: 027830 1 Patch TD Q72H 02/11/2016 03/11/2016 Inactive citalopram 20 mg tablet RxNorm: 083521 1 Tablet(s) PO daily 10/201503/03/2016 Inactive fentanyl 75 mcg/hr transdermal patch RxNorm: 367539 1 TD Q72H 01/17/2016 02/10/2016 Inactive hydrocodone 10 mg-acetaminophen 325 mg tablet RxNorm: 682716 1-2 Tablet(s) PO Q6 as needed 01/07/2016 02/05/2016 Inactive fentanyl 50 mcg/hr transdermal patch RxNorm: 486220 1 TD Q72H 01/01/2016 01/16/2016 Inactive fentanyl 50 mcg/hr transdermal patch RxNorm: 430400 1 TD q 3 days 12/26/2015 12/31/2015 Inactive Xarelto 20 mg tablet RxNorm: 4102010 TAKE 1 TABLET VIA PEG TUBE AT BEDTIME 12/17/2015 02/11/2016 Inactive 12/16/2015 3:27:57 PM12/14/2015 9:45:17 AM hydrocodone 10 mg-acetaminophen 325 mg tablet RxNorm: 266635 1-2 Tablet(s) PO Q6 as needed 12/06/2015 01/04/2016 Inactive fentanyl 50 mcg/hr transdermal patch RxNorm: 079306 1 TD q 3 days 12/06/2015 12/25/2015 Inactive fentanyl 25 mcg/hr transdermal patch RxNorm: 792340 1 TD q 3 days 11/18/2015 12/05/2015 Inactive Zithromax Z-Eliu 250 mg tablet RxNorm: 348551 1 Tablet(s) PO UD 10/09/2015 02/26/2016 Inactive z pack as directed- please write out instructions- pt at [facility] nystatin 100,000 unit/gram topical powder RxNorm: 409098 APPLY TO UNDER BREASTS TWICE DAILY FOR YEAST SKIN INFECTION AND APPLY TO UNDERARM AND ABDOMINAL FOLDS AND PERIAREA TWICE DAILY 10/07/20152015 Inactive Generic For:MYCOSTATIN 100, 000 UNITS/GM PW 10/05/2015 12:07:35 PM fentanyl 25 mcg/hr transdermal patch RxNorm: 022591 1 TD q 3 days 10/03/2015 11/01/2015 Inactive fentanyl 25 mcg/hr transdermal patch RxNorm: 799398 1 TD q 3 days 09/27/2015 10/02/2015 Inactive fentanyl 25 mcg/hr transdermal patch RxNorm: 050954 1 TD q 3 days 09/17/2015 09/26/2015 Inactive fentanyl 25 mcg/hr transdermal patch RxNorm: 947895 1 TD q 3 days 08/30/2015 09/16/2015 Inactive hydrocodone 5 mg-acetaminophen 325 mg tablet RxNorm: 141514 1 Tablet(s) PO Q6 as needed 08/30/2015 09/28/2015 Inactive Diflucan 100 mg tablet RxNorm: 176575 1 Tablet(s) Miscellaneous per peg daily 07/29/2015 08/04/2015 Inactive fentanyl 25 mcg/hr transdermal patch RxNorm: 292873 1 TD q 3 days 07/18/2015 08/29/2015 Inactive hydrocodone 5 mg-acetaminophen 325 mg tablet RxNorm: 653146 1 Tablet(s) PO Q6 as needed 07/18/2015 08/29/2015 Inactive Diflucan 100 mg tablet RxNorm: 286051 1 Tablet(s) Miscellaneous per peg daily 06/17/2015 06/23/2015 Inactive baclofen 10 mg tablet RxNorm: 051089 1 Tablet(s) PO TID No Start Date 09/30/2016 Inactive Ativan 0.5 mg tablet RxNorm: 363657 1 Tablet(s) PO Q4H as needed No Start Date 02/17/2016 Inactive ranitidine 150 mg tablet RxNorm: 196418 1 Tablet(s) PO daily No Start Date 08/24/2016 Inactive carvedilol 3.125 mg tablet RxNorm: 887689 1 Tablet(s) PO daily No Start Date 09/29/2016 Inactive citalopram 40 mg tablet RxNorm: 964503 1 Tablet(s) PO daily No Start Date 01/27/2016 Inactive Probiotic Blend oral RxNorm: oral No Start Date 05/12/2016 Inactive hydrochlorothiazide 25 mg tablet RxNorm: 437710 1 Tablet(s) PO daily No Start Date 04/21/2016 Inactive Levemir FlexTouch 100 unit/mL (3 mL) subcutaneous insulin pen RxNorm: 889093 10 Unit(s) SQ BID No Start Date 03/01/2016 Inactive Zithromax Z-Eliu 250 mg tablet RxNorm: 082539 1 Tablet(s) PO UD No Start Date 10/08/2015 Inactive z pack as directed- please write out instructions- pt at [facility] nystatin 100,000 unit/gram topical powder RxNorm: 621082 Gram(s) TOP BID as needed No Start Date 10/06/2015 Inactive pravastatin 40 mg tablet RxNorm: 417310 Tablet(s) PO daily No Start Date 04/14/2017 Inactive lorazepam 0.5 mg tablet RxNorm: 209394 1/2 Tablet(s) PO BID No Start Date 05/02/2017 Inactive Xarelto 20 mg tablet RxNorm: 9382027 1 Tablet(s) PO daily No Start Date 12/16/2015 Inactive fentanyl 25 mcg/hr transdermal patch RxNorm: 655434 1 TD q 3 days No Start Date 07/17/2015 Inactive lisinopril 20 mg tablet RxNorm: 127811 1 Tablet(s) PO daily No Start Date 02/24/2016 Inactive hydrocodone 5 mg-acetaminophen 325 mg tablet RxNorm: 746490 1 Tablet(s) PO Q6 as needed No Start Date 07/17/2015 Inactive citalopram 40 mg tablet RxNorm: 672931 1 Tablet(s) PO daily No Start Date 03/03/2016 Inactive hyoscyamine 0.125 mg disintegrating tablet RxNorm: 4423920 1-2 Tablet(s) PO Q8 as needed No Start Date 09/06/2016 Inactive Medication Administered No Medication Administered data Immunizations No Immunization data Assessments Condition Codes Effective Dates Low back pain ICD-10: M54.5 ICD-9: 724.2 04/15/2017 Essential (primary) hypertension ICD-10: I10 ICD-9: 401.9 04/15/2017 Type 2 diabetes mellitus with hyperglycemia ICD-10: E11.65 ICD-9: 250.02 04/15/2017 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 ICD-9: [...] Reason For Visit Effective Dates Notes hypertension 04/15/2017 ~generic 02/16/2017 PEG tube ~generic 11/09/2016 PEG tube earache 07/18/2015 hypertension 06/17/2015 Results Observation Observation Code Item Item Code Result Date B12 Kdg397 B12 >1500.00 pg/ml 02/19/2017 Cbc With Differential [...] 31.5 pg 02/02/2017 Cbc With Differential Ord2 [place]% 8.3 % 02/02/2017 Cbc With Differential Ord2 [...] 2.28 K/ul 02/02/2017 Cbc With Differential Ord2 [place] ABS# 0.6 K/ul 02/02/2017 Cbc With Differential Ord2 Eos ABS# 0.4 K/ul 02/02/2017 Cbc With Differential Ord2 Baso ABS# 0.0 K/ul 02/02/2017 %Hba1C Xgi212 % HbA1c 80142-0 5.2 % 02/02/2017 %Hba1C Fho889 Gluc Ave 103 mg/dL 02/02/2017 Comp Metabolic Uug168 NA 138 mEq/L 02/02/2017 Comp Metabolic Lon960 K 4.5 mEq/L 02/02/2017 Comp Metabolic Gaa891 CL 98 mEq/L 02/02/2017 Comp Metabolic Rfi373 CO2 37.0 mEq/L 02/02/2017 Comp Metabolic Fzv470 ANION GAP 8 02/02/2017 Comp Metabolic Kle060 GLUCOSE 94 mg/dL 02/02/2017 Comp Metabolic Qig428 Creat 0.7 mg/dL 02/02/2017 Comp Metabolic Mgg940 eGFR 88 ml/min/1.73m2 02/02/2017 Comp Metabolic Dmk702 BUN 36 mg/dL 02/02/2017 Comp Metabolic Nvf312 B/C Ratio 50.7 Ratio 02/02/2017 Comp Metabolic Qui149 CALCIUM 9.0 mg/dL 02/02/2017 Comp Metabolic Edq233 ALK PHOS 78 U/L 02/02/2017 Comp Metabolic Qzc400 AST(SGOT) 22 U/L 02/02/2017 Comp Metabolic Alv916 ALT(SGPT) 28 U/L 02/02/2017 Comp Metabolic Kou100 BILI T 0.3 mg/dL 02/02/2017 Comp Metabolic Rqj177 ALBUMIN 3.3 g/dL 02/02/2017 Comp Metabolic Xlc400 TPRO 5.9 g/dL 02/02/2017 Comp Metabolic Fna206 GLOB 2.6 g/dL 02/02/2017 Comp Metabolic Lkq589 A/G Ratio 1.3 Ratio 02/02/2017 Comp Metabolic Eij042 Osmo 284 mOsmo 02/02/2017 %Hba1C Don107 % HbA1c 77089-8 5.0 % 10/29/2016 %Hba1C Nrt064 Gluc Ave 97 mg/dL 10/29/2016 Culture Urine [id number] URINE CULTURE SEE NOTES 09/21/2016 Culture Urine [id number] Continued Results 09/21/2016 Urine Culture Ucult Complete [...] 32.4 pg 07/30/2016 Cbc With Differential Ord2 [place]% 7.2 % 07/30/2016 Cbc With Differential Ord2 [...] 2.69 K/ul 07/30/2016 Cbc With Differential Ord2 [place] ABS# 0.5 K/ul 07/30/2016 Cbc With Differential Ord2 Eos ABS# 0.5 K/ul 07/30/2016 Cbc With Differential Ord2 Baso ABS# 0.0 K/ul 07/30/2016 Comp Metabolic Dsm858 NA 141 mEq/L 07/30/2016 Comp Metabolic Zay765 K 4.3 mEq/L 07/30/2016 Comp Metabolic Jqq010 CL 100 mEq/L 07/30/2016 Comp Metabolic Cua953 CO2 33.0 mEq/L 07/30/2016 Comp Metabolic Apt513 ANION GAP 12 07/30/2016 Comp Metabolic Sqc334 GLUCOSE 64 mg/dL 07/30/2016 Comp Metabolic Xbp121 Creat 0.5 mg/dL 07/30/2016 Comp Metabolic Xps494 eGFR 126 ml/min/1.73m2 07/30/2016 Comp Metabolic Ykb811 BUN 25 mg/dL 07/30/2016 Comp Metabolic Zhi988 B/C Ratio 48.1 Ratio 07/30/2016 Comp Metabolic Svs179 CALCIUM 8.9 mg/dL 07/30/2016 Comp Metabolic Nrc966 ALK PHOS 90 U/L 07/30/2016 Comp Metabolic Cgm048 AST(SGOT) 22 U/L 07/30/2016 Comp Metabolic Tov945 ALT(SGPT) 36 U/L 07/30/2016 Comp Metabolic Dnh989 BILI T 0.3 mg/dL 07/30/2016 Comp Metabolic Fet839 ALBUMIN 3.4 g/dL 07/30/2016 Comp Metabolic Hwh211 TPRO 6.0 g/dL 07/30/2016 Comp Metabolic Dui672 GLOB 2.7 g/dL 07/30/2016 Comp Metabolic Ijk348 A/G Ratio 1.3 Ratio 07/30/2016 Comp Metabolic Ele474 Osmo 284 mOsmo 07/30/2016 A1C Frequency Nkf037 A1CF 21013-2 Last A1C performed at [facility] [place] on: 05-12-2016 07/30/2016 %Hba1C Enk404 % HbA1c 07505-6 5.2 % 05/12/2016 %Hba1C Fnl145 Gluc Ave 103 mg/dL 05/12/2016 Culture Urine [id number] URINE CULTURE SEE NOTES 05/11/2016 Urine Culture [...] U-Com Culture to follow 05/06/2016 Culture Urine [id number] URINE CULTURE SEE NOTES 03/17/2016 Culture Urine [id number] Continued Results 03/17/2016 Urine Culture Ucult Complete [...] 32.0 pg 02/11/2016 Cbc With Differential Ord2 [place]% 9.1 % 02/11/2016 Cbc With Differential Ord2 [...] 2.59 K/ul 02/11/2016 Cbc With Differential Ord2 [place] ABS# 0.6 K/ul 02/11/2016 Cbc With Differential Ord2 Eos ABS# 0.3 K/ul 02/11/2016 Cbc With Differential Ord2 Baso ABS# 0.0 K/ul 02/11/2016 Comp Metabolic Xlz577 NA 137 mEq/L 02/11/2016 Comp Metabolic Ioh665 K 4.4 mEq/L 02/11/2016 Comp Metabolic Rkv239 CL 100 mEq/L 02/11/2016 Comp Metabolic Vew776 CO2 25.0 mEq/L 02/11/2016 Comp Metabolic Dic706 ANION GAP 16 02/11/2016 Comp Metabolic Boe824 GLUCOSE 99 mg/dL 02/11/2016 Comp Metabolic Byr966 Creat 0.6 mg/dL 02/11/2016 Comp Metabolic Rar203 eGFR 99 ml/min/1.73m2 02/11/2016 Comp Metabolic Hcl093 BUN 27 mg/dL 02/11/2016 Comp Metabolic Roz357 B/C Ratio 42.2 Ratio 02/11/2016 Comp Metabolic Gwi789 CALCIUM 9.2 mg/dL 02/11/2016 Comp Metabolic Niq231 ALK PHOS 74 U/L 02/11/2016 Comp Metabolic Gzl678 AST(SGOT) 24 U/L 02/11/2016 Comp Metabolic Lqf094 ALT(SGPT) 26 U/L 02/11/2016 Comp Metabolic Kok933 BILI T 0.5 mg/dL 02/11/2016 Comp Metabolic Oys963 ALBUMIN 3.5 g/dL 02/11/2016 Comp Metabolic Mly358 TPRO 6.2 g/dL 02/11/2016 Comp Metabolic Gzy758 GLOB 2.7 g/dL 02/11/2016 Comp Metabolic Mle904 A/G Ratio 1.3 Ratio 02/11/2016 Comp Metabolic Fdr268 Osmo 279 mOsmo 02/11/2016 Review of Systems [...] CPT-4: G8553 06/17/2015 Vital Signs Date Vital 04/15/2017 Blood Pressure 1: 124/64 Code : 8480-6 Heart Rate 1: 71 bpm Height: SpO2: 99% Weight: 02/16/2017 Blood Pressure 1: 128/76 Code : 8480-6 Heart Rate 1: 71 bpm Height: SpO2: 98% Weight: 11/09/2016 Blood Pressure 1: 120/64 Code : 8480-6 Heart Rate 1: 75 bpm Height: SpO2: 99% Weight: 07/18/2015 Blood Pressure 1: 128/86 Code : 8480-6 BMI: 31.4 Code : 65075-9 Heart Rate 1 : 72 bpm Height: 5'1" Weight: 166 lbs 06/17/2015 Blood Pressure 1: 110/78 Code : 8480-6 BMI: 33.3 Code : 85789-5 Heart Rate 1 : 74 bpm Height: 5'1" SpO2: 92% Weight: 176 lbs Functional Status No Functional Status data History of Present Illness Symptom Name Status Result Effective Date Notes hypertension Quality primary hypertension 04/15/2017 None hypertension [...] Present Encounters Encounter Performer Location Codes Date ([id number]) [id number] EST. PATIENT, LEVEL IV Diagnosis: Essential (primary) hypertension[ICD10: I10] Diagnosis: Type 2 diabetes mellitus with hyperglycemia[ICD10: E11.65] Diagnosis: Low back pain[ICD10: M54.5] Sunitha Everett MD, [facility] CPT-4 : 32353 04/15/2017 ([id number]) [id number] EST. PATIENT, LEVEL IV Diagnosis: Essential (primary) hypertension[ICD10: I10] Diagnosis: Type 2 diabetes mellitus with hyperglycemia[ICD10: E11.65] Diagnosis: Low back pain[ICD10: M54.5] Vonda Everett MD, [facility] CPT- 4: 63865 02/16/2017 [id number] EST. PATIENT, LEVEL III Diagnosis: Other complications of gastrostomy[ICD10: K94.29] Sunitha Everett MD, [facility] CPT-4: 93137 11/09/2016 ([id number]) [id number] EST. 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 04/15/2017 Appointment: [id number] [facility] Complex 04/15/2017 Patient Education: [...] today. 02/16/2017 [id number] (15 min) Moderate 02/16/2017 Patient Education: [...] concerns. 11/09/2016 Appointment: Sunitha Patel WPtel: [phone] [id number] (30 min) Complex 11/09/2016 Patient Education: Patient Medication Summary Completed 11/09/2016 Care Plan: Referral Order SNOMED-CT : [id number] Pending 11/09/2016 Patient Education: Patient Medication Summary [...] Follow up weight in 1 month Neck xctk-ouosobrjbpv-Jbxh PT focus neck/upper body Right earache-cerumen removed with water pick today in the office 07/18/2015 Appointment: (30 min) Complex 07/18/2015 Patient Education: Patient Medication Summary Completed 07/18/2015 Patient Education: Obesity Completed 07/18/2015 Patient Education: .Cervicalgia Neck Pain Completed 07/18/2015 [id number] Referral Completed 06/25/2015 Visit Plan: Hypertension [...] normal liver response to medications. [facility] - left sided weakness, neck stiffness, upper extremity weakness Diabetes Mellitus - controlled - per family report - check labs this week, get report from and [facility]. I spent over an hour with the patient in direct contact. 06/17/2015 App[facility]ment: [id number] New Patient 06/17/2015 Patient Education: Patient Medication Summary Completed 06/17/2015 Patient Education: Obesity Completed 06/17/2015 Patient Education: Hypertension Completed 06/17/2015 Care Plan: Referral Order SNOMED-CT : [id number] Ordered 06/17/2015 Referral: Jorge Luis Carroll Referral Initiated [id number] Referral Appointment Requested Instructions Comment . [...] normal liver response to medications. [facility] - left sided weakness, neck stiffness, upper extremity weakness Diabetes Mellitus - controlled - per family report - check labs this week, get report from and [facility]. I spent over an hour with the patient in direct contact. . PEG tube - tube has not been replaced in some time, some mild irritation noted around the tube - will refer to surgeon for PEG tube replacement. Pt/family is to notify clinic with any changes, questions, or concerns. Add 1 scoop of whey protein from [facility] to 2 feedings per day . [...] Follow up weight in 1 month Neck bpeb-swtouktvsuv-Clgc PT focus neck/upper body Right earache-cerumen removed with water pick today in the office . Hypertension - well controlled - continue [...]
--- OUTSIDE RECORDS SUMMARY | 2017-12-16 14:41 | XMS REPORT | CCD ---
Author Author Vonda Everett Organization Vonda Everett MD, [facility] Address [address] [place] [address] Phone Care Team Providers [facility] Manager Name Role Phone PP Unavailable CCM Unavailable Summary Purpose Interface Exchange Insurance Providers Payer name Policy type / Coverage type Covered republican ID Effective Begin Date Effective End Date WPS Medicare Part B Medicare Part B [id number] Unknown Unknown [facility] Life Insurance Medicare Part B [id number] Unknown Unknown Family history Father Diagnosis Age At Onset Arthritis Unknown Hypertension Unknown Mother Diagnosis Age At Onset Diabetes mellitus Type 2 Unknown Depression Unknown Arthritis Unknown Stroke Unknown Hypertension Unknown Sister Diagnosis Age At Onset Colon cancer Unknown Social History Social History Element Codes Description Effective Dates Living arrangements Unknown Long Term [facility] 04/15/2017 Marital status Unknown Anothony 06/17/2015 Number of children Unknown 3 06/17/2015 Employment Unknown Retired 06/17/[address]: 1719414 Quit over 10 years ago 15+ 06/17/[address]: 335942316 Never drinks alcohol 06/17/2015 Allergies, Adverse Reactions, [...] hydrocodone 10 mg-acetaminophen 325 mg tablet RxNorm: 671606 1 Tablet(s) PO scheduled BID et Q6 hours as needed 05/12/2017 06/10/2017 Active fentanyl 100 mcg/hr transdermal patch RxNorm: 208436 1 Patch TD Q72H 04/27/2017 05/26/2017 Active carvedilol 3.125 mg tablet RxNorm: 171727 Tablet(s) GIVE 1 TABLET VIA PEG TUBE DAILY 04/15/2017 No Stop Date Active Levemir FlexTouch 100 unit/mL (3 mL) subcutaneous insulin pen RxNorm: 351705 10 Unit(s) SQ BID 04/15/2017 No Stop Date Active hyoscyamine 0.125 mg disintegrating tablet RxNorm: 9977186 1-2 Tablet(s) PO Q8 as needed 04/14/2017 05/03/2017 Inactive hydrocodone 10 mg-acetaminophen 325 mg tablet RxNorm: 771589 1 Tablet(s) PO scheduled BID et Q6 hours as needed 04/13/2017 05/02/2017 Inactive baclofen 10 mg tablet RxNorm: 669269 TAKE 1 TABLET THREE TIMES DAILY VIA STOMACH TUBE 04/08/2017 05/22/2017 Active 04/08/2017 9:32:07 AM fentanyl 25 mcg/hr transdermal patch RxNorm: 133398 1 Patch TD Q72H 04/05/2017 05/04/2017 Active lidocaine 10 mg/mL (1 %) injection solution RxNorm: 3163292 1 Milliliter(s) Inj daily Mix with rocephin 03/31/20172017 Inactive Pt resides at [facility] lidocaine 10 mg/mL (1 %) injection solution RxNorm: 5176227 1 Milliliter(s) Inj daily Mix with rocephin 03/31/20172017 Inactive Pt resides at [facility] nystatin 100,000 unit/gram topical powder RxNorm: 662584 APPLY UNDER BREASTS TWICE DAILY FOR YEAST SKIN INFECTION AND APPLY TO UNDERARM AND ABDOMINAL FOLDS AND PERIAREA TWICE DAILY 03/29/20172017 Active 03/29/2017 9:42:55 AM2017 9:12:50 AM fentanyl 100 mcg/hr transdermal patch RxNorm: 054220 1 Patch TD Q72H 03/29/2017 04/26/2017 Inactive nystatin 100,000 unit/gram topical powder RxNorm: 814346 APPLY UNDER BREASTS TWICE DAILY FOR YEAST SKIN INFECTION AND APPLY TO UNDERARM AND ABDOMINAL FOLDS AND PERIAREA TWICE DAILY 03/29/20172017 Inactive 03/27/2017 9:12:50 AM hyoscyamine 0.125 mg disintegrating tablet RxNorm: 0281770 1-2 Tablet(s) PO Q8 as needed 03/08/2017 03/27/2017 Inactive fentanyl 25 mcg/hr transdermal patch RxNorm: 573093 1 Patch TD Q72H 03/02/2017 03/31/2017 Inactive hydrocodone 10 mg-acetaminophen 325 mg tablet RxNorm: 752101 1 Tablet(s) PO scheduled BID et Q6 hours as needed 02/17/2017 03/18/2017 Inactive fentanyl 100 mcg/hr transdermal patch RxNorm: 700282 1 Patch TD Q72H 02/17/2017 03/18/2017 Inactive Lexapro 10 mg tablet RxNorm: 149999 1 Tablet(s) PO daily 201604/14/2017 Inactive Lexapro 10 mg tablet RxNorm: 263467 1 Tablet(s) PO daily 201602/04/2017 Inactive fentanyl 25 mcg/hr transdermal patch RxNorm: 255226 1 Patch TD Q72H 02/04/2017 03/01/2017 Inactive cyanocobalamin (vit B-12) 1,000 mcg tablet RxNorm: 289419 1 Tablet(s) PO daily 01/18/2017 12/13/2017 Active hyoscyamine 0.125 mg disintegrating tablet RxNorm: 2154684 Tablet(s) 1-2 Tablet(s ) PO Q8 as needed 01/18/2017 02/06/2017 Inactive baclofen 10 mg tablet RxNorm: 345532 TAKE 1 TABLET THREE TIMES DAILY VIA STOMACH TUBE 01/04/2017 02/17/2017 Inactive 01/04/2017 9:25:18 AM fentanyl 100 mcg/hr transdermal patch RxNorm: 949446 1 Patch TD Q72H 12/25/2016 01/23/2017 Inactive hydrochlorothiazide 25 mg tablet RxNorm: 555518 Tablet(s) GIVE 1 TABLET VIA PEG TUBE ONCE A DAY 12/14/2016 07/11/2017 Active fentanyl 100 mcg/hr transdermal patch RxNorm: 452460 1 Patch TD Q72H 11/25/2016 12/24/2016 Inactive hyoscyamine 0.125 mg disintegrating tablet RxNorm: 0005046 Tablet(s) 1-2 Tablet(s ) PO Q8 as needed 11/25/2016 12/14/2016 Inactive nystatin 100,000 unit/gram topical powder RxNorm: 538689 APPLY UNDER BREASTS TWICE DAILY FOR YEAST SKIN INFECTION AND APPLY TO UNDERARM AND ABDOMINAL FOLDS AND PERIAREA TWICE DAILY 11/24/20162016 Inactive 11/24/2016 9:34:02 AM hydrocodone 10 mg-acetaminophen 325 mg tablet RxNorm: 158336 1 Tablet(s) PO scheduled BID et Q6 hours as needed 11/02/2016 12/01/2016 Inactive cyanocobalamin (vit B-12) 1,000 mcg tablet RxNorm: 431029 1 Tablet(s) PO daily 11/02/2016 01/17/2017 Inactive hyoscyamine 0.125 mg disintegrating tablet RxNorm: 8656957 1-2 Tablet(s) PO Q8 as needed 10/19/2016 11/24/2016 Inactive fentanyl 100 mcg/hr transdermal patch RxNorm: 773819 1 Patch TD Q72H 10/13/2016 11/11/2016 Inactive hydrocodone 10 mg-acetaminophen 325 mg tablet RxNorm: 430931 1 Tablet(s) PO scheduled BID et Q6 hours as needed 10/05/2016 11/01/2016 Inactive baclofen 10 mg tablet RxNorm: 699146 TAKE 1 TABLET THREE TIMES DAILY VIA STOMACH TUBE 10/01/2016 11/14/2016 Inactive 10/01/2016 9:24:37 AM carvedilol 3.125 mg tablet RxNorm: 225669 GIVE 1 TABLET VIA PEG TUBE 2 TIMES A DAY 09/30/2016 12/28/2016 Inactive Generic For:COREG 3.125MG 09/30/2016 1:12:28 PM09/25/2016 9:06:11 AM Probiotic Blend 2 million cell-50 mg capsule RxNorm: 1 Capsule(s) PO BID 09/17/2016 09/23/2016 Inactive Keflex 500 mg capsule RxNorm: 246440 1 Capsule(s) PO TID 201609/23/2016 Inactive hyoscyamine 0.125 mg/5 mL oral elixir RxNorm: 8809623 5 Milliliter(s) PO TID 09/08/2016 09/17/2016 Inactive hyoscyamine 0.125 mg/5 mL oral elixir RxNorm: 8944715 5 Milliliter(s) PO TID 09/08/2016 09/07/2016 Inactive hyoscyamine 0.125 mg disintegrating tablet RxNorm: 3243849 1-2 Tablet(s) PO Q8 as needed 09/07/2016 10/18/2016 Inactive fentanyl 100 mcg/hr transdermal patch RxNorm: 887448 1 Patch TD Q72H 09/01/2016 09/30/2016 Inactive ranitidine 150 mg tablet RxNorm: 418969 1 Tablet(s) PO BID 08/2016 No Stop Date Active hydrocodone 10 mg-acetaminophen 325 mg tablet RxNorm: 523344 1 Tablet(s) PO scheduled BID et Q6 hours as needed 08/24/2016 09/22/2016 Inactive cyanocobalamin (vit B-12) 1,000 mcg tablet RxNorm: 937973 1 Tablet(s) PO daily 08/12/2016 11/01/2016 Inactive cyanocobalamin (vit B-12) 1,000 mcg tablet RxNorm: 808842 1 Tablet(s) PO daily 08/12/2016 08/11/2016 Inactive hydrocodone 10 mg-acetaminophen 325 mg tablet RxNorm: 016089 1-2 Tablet(s) PO Q6 as needed 08/03/2016 08/17/2016 Inactive fentanyl 100 mcg/hr transdermal patch RxNorm: 525238 1 Patch TD Q72H 08/03/2016 08/31/2016 Inactive nystatin 100,000 unit/gram topical powder RxNorm: 148567 APPLY UNDER BREASTS TWICE DAILY FOR YEAST SKIN INFECTION AND APPLY TO UNDERARM AND ABDOMINAL FOLDS AND PERIAREA TWICE DAILY 07/17/20162016 Inactive 07/17/2016 3:56:54 PM fentanyl 100 mcg/hr transdermal patch RxNorm: 700958 1 Patch TD Q72H 07/15/2016 08/02/2016 Inactive lisinopril 20 mg tablet RxNorm: 140455 1 Tablet(s) PO daily 03/28/2017 Inactive hydrocodone 10 mg-acetaminophen 325 mg tablet RxNorm: 604246 1-2 Tablet(s) PO Q6 as needed 07/01/2016 07/15/2016 Inactive Xarelto 20 mg tablet RxNorm: 0099080 Tablet(s) TAKE 1 TABLET VIA PEG TUBE AT BEDTIME 06/19/2016 04/14/2017 Inactive fentanyl 100 mcg/hr transdermal patch RxNorm: 897157 1 Patch TD Q72H 06/17/2016 07/14/2016 Inactive nystatin 100,000 unit/gram topical powder RxNorm: 360812 APPLY TO UNDER BREASTS TWICE DAILY FOR YEAST SKIN INFECTION AND APPLY TO UNDERARM AND ABDOMINAL FOLDS AND PERIAREA TWICE DAILY 06/15/20162016 Inactive Generic For:MYCOSTATIN 100, 000 UNITS/GM PW 06/15/2016 12:28:26 PM fentanyl 100 mcg/hr transdermal patch RxNorm: 857758 1 Patch TD Q72H 06/05/2016 06/16/2016 Inactive hydrocodone 10 mg-acetaminophen 325 mg tablet RxNorm: 319552 1-2 Tablet(s) PO Q6 as needed 06/02/2016 06/16/2016 Inactive Probiotic Blend 2 million cell-50 mg capsule RxNorm: 1 Capsule(s) PO BID 05/13/2016 05/19/2016 Inactive nitrofurantoin 100 mg capsule RxNorm: 909569 1 Capsule(s) PO BID 05/13/2016 05/19/2016 Inactive nitrofurantoin 100 mg capsule RxNorm: 544186 1 Capsule(s) PO BID 05/13/2016 05/12/2016 Inactive fentanyl 75 mcg/hr transdermal patch RxNorm: 850544 1 Patch TD Q72H 05/13/2016 06/04/2016 Inactive Keflex 500 mg capsule RxNorm: 037694 1 Capsule(s) PO TID 201605/13/2016 Inactive Patient at [facility] Keflex 500 mg capsule RxNorm: 804923 1 Capsule(s) PO TID 201605/06/2016 Inactive hydrocodone 10 mg-acetaminophen 325 mg tablet RxNorm: 984150 1-2 Tablet(s) PO Q6 as needed 05/04/2016 06/01/2016 Inactive hydrochlorothiazide 25 mg tablet RxNorm: 143835 Tablet(s) GIVE 1 TABLET VIA PEG TUBE ONCE A DAY 04/29/2016 11/24/2016 Inactive hydrochlorothiazide 25 mg tablet RxNorm: 852103 GIVE 1 TABLET VIA PEG TUBE ONCE A DAY 04/22/2016 04/28/2016 Inactive Generic For:HYDRODIURIL 25 MG TABLET refill request fentanyl 75 mcg/hr transdermal patch RxNorm: 183648 1 Patch TD Q72H 04/17/2016 05/12/2016 Inactive Xarelto 20 mg tablet RxNorm: 4395542 TAKE 1 TABLET VIA PEG TUBE AT BEDTIME 04/16/2016 06/14/2016 Inactive 04/16/2016 9:08:52 AM citalopram 40 mg tablet RxNorm: 198617 1 Tablet(s) PO daily 02/201702/25/2017 Inactive citalopram 40 mg tablet RxNorm: 300923 1 Tablet(s) PO daily 08/201604/01/2016 Inactive hydrocodone 10 mg-acetaminophen 325 mg tablet RxNorm: 108575 1-2 Tablet(s) PO Q6 as needed 03/27/2016 04/25/2016 Inactive fentanyl 75 mcg/hr transdermal patch RxNorm: 930360 1 Patch TD Q72H 03/18/2016 04/16/2016 Inactive hydrocodone 10 mg-acetaminophen 325 mg tablet RxNorm: 887292 1-2 Tablet(s) PO Q6 as needed 03/11/2016 03/26/2016 Inactive citalopram 40 mg tablet RxNorm: 843913 1 Tablet(s) PO daily 03/26/2016 Inactive Levemir FlexTouch 100 unit/mL (3 mL) subcutaneous insulin pen RxNorm: 405101 20 Unit(s) SQ BID 03/02/2016 09/27/2016 Inactive lisinopril 20 mg tablet RxNorm: 269436 1 Tablet(s) PO daily 08/201507/01/2016 Inactive Ativan 0.5 mg tablet RxNorm: 503022 1 Tablet(s) PO Q4H as needed 02/18/2016 04/14/2017 Inactive Xarelto 20 mg tablet RxNorm: 7391512 TAKE 1 TABLET VIA PEG TUBE AT BEDTIME 02/12/2016 04/11/2016 Inactive 02/12/2016 9:08:22 AM hydrocodone 10 mg-acetaminophen 325 mg tablet RxNorm: 188952 1-2 Tablet(s) PO Q6 as needed 02/12/2016 03/10/2016 Inactive fentanyl 75 mcg/hr transdermal patch RxNorm: 478571 1 Patch TD Q72H 02/11/2016 03/11/2016 Inactive citalopram 20 mg tablet RxNorm: 790609 1 Tablet(s) PO daily 10/201503/03/2016 Inactive fentanyl 75 mcg/hr transdermal patch RxNorm: 298273 1 TD Q72H 01/17/2016 02/10/2016 Inactive hydrocodone 10 mg-acetaminophen 325 mg tablet RxNorm: 031767 1-2 Tablet(s) PO Q6 as needed 01/07/2016 02/05/2016 Inactive fentanyl 50 mcg/hr transdermal patch RxNorm: 969394 1 TD Q72H 01/01/2016 01/16/2016 Inactive fentanyl 50 mcg/hr transdermal patch RxNorm: 879357 1 TD q 3 days 12/26/2015 12/31/2015 Inactive Xarelto 20 mg tablet RxNorm: 8637267 TAKE 1 TABLET VIA PEG TUBE AT BEDTIME 12/17/2015 02/11/2016 Inactive 12/16/2015 3:27:57 PM12/14/2015 9:45:17 AM hydrocodone 10 mg-acetaminophen 325 mg tablet RxNorm: 674975 1-2 Tablet(s) PO Q6 as needed 12/06/2015 01/04/2016 Inactive fentanyl 50 mcg/hr transdermal patch RxNorm: 760625 1 TD q 3 days 12/06/2015 12/25/2015 Inactive fentanyl 25 mcg/hr transdermal patch RxNorm: 950593 1 TD q 3 days 11/18/2015 12/05/2015 Inactive Zithromax Z-Eliu 250 mg tablet RxNorm: 258168 1 Tablet(s) PO UD 10/09/2015 02/26/2016 Inactive z pack as directed- please write out instructions- pt at [facility] nystatin 100,000 unit/gram topical powder RxNorm: 709631 APPLY TO UNDER BREASTS TWICE DAILY FOR YEAST SKIN INFECTION AND APPLY TO UNDERARM AND ABDOMINAL FOLDS AND PERIAREA TWICE DAILY 10/07/20152015 Inactive Generic For:MYCOSTATIN 100, 000 UNITS/GM PW 10/05/2015 12:07:35 PM fentanyl 25 mcg/hr transdermal patch RxNorm: 903363 1 TD q 3 days 10/03/2015 11/01/2015 Inactive fentanyl 25 mcg/hr transdermal patch RxNorm: 080413 1 TD q 3 days 09/27/2015 10/02/2015 Inactive fentanyl 25 mcg/hr transdermal patch RxNorm: 797257 1 TD q 3 days 09/17/2015 09/26/2015 Inactive fentanyl 25 mcg/hr transdermal patch RxNorm: 435302 1 TD q 3 days 08/30/2015 09/16/2015 Inactive hydrocodone 5 mg-acetaminophen 325 mg tablet RxNorm: 557499 1 Tablet(s) PO Q6 as needed 08/30/2015 09/28/2015 Inactive Diflucan 100 mg tablet RxNorm: 598528 1 Tablet(s) Miscellaneous per peg daily 07/29/2015 08/04/2015 Inactive fentanyl 25 mcg/hr transdermal patch RxNorm: 166668 1 TD q 3 days 07/18/2015 08/29/2015 Inactive hydrocodone 5 mg-acetaminophen 325 mg tablet RxNorm: 975387 1 Tablet(s) PO Q6 as needed 07/18/2015 08/29/2015 Inactive Diflucan 100 mg tablet RxNorm: 578819 1 Tablet(s) Miscellaneous per peg daily 06/17/2015 06/23/2015 Inactive baclofen 10 mg tablet RxNorm: 395560 1 Tablet(s) PO TID No Start Date 09/30/2016 Inactive Ativan 0.5 mg tablet RxNorm: 986515 1 Tablet(s) PO Q4H as needed No Start Date 02/17/2016 Inactive ranitidine 150 mg tablet RxNorm: 300596 1 Tablet(s) PO daily No Start Date 08/24/2016 Inactive carvedilol 3.125 mg tablet RxNorm: 635116 1 Tablet(s) PO daily No Start Date 09/29/2016 Inactive citalopram 40 mg tablet RxNorm: 417172 1 Tablet(s) PO daily No Start Date 01/27/2016 Inactive Probiotic Blend oral RxNorm: oral No Start Date 05/12/2016 Inactive hydrochlorothiazide 25 mg tablet RxNorm: 125246 1 Tablet(s) PO daily No Start Date 04/21/2016 Inactive Levemir FlexTouch 100 unit/mL (3 mL) subcutaneous insulin pen RxNorm: 540749 10 Unit(s) SQ BID No Start Date 03/01/2016 Inactive Zithromax Z-Eliu 250 mg tablet RxNorm: 035074 1 Tablet(s) PO UD No Start Date 10/08/2015 Inactive z pack as directed- please write out instructions- pt at [facility] nystatin 100,000 unit/gram topical powder RxNorm: 996814 Gram(s) TOP BID as needed No Start Date 10/06/2015 Inactive pravastatin 40 mg tablet RxNorm: 193951 Tablet(s) PO daily No Start Date 04/14/2017 Inactive Xarelto 20 mg tablet RxNorm: 6567647 1 Tablet(s) PO daily No Start Date 12/16/2015 Inactive fentanyl 25 mcg/hr transdermal patch RxNorm: 820402 1 TD q 3 days No Start Date 07/17/2015 Inactive lisinopril 20 mg tablet RxNorm: 452718 1 Tablet(s) PO daily No Start Date 02/24/2016 Inactive hydrocodone 5 mg-acetaminophen 325 mg tablet RxNorm: 148149 1 Tablet(s) PO Q6 as needed No Start Date 07/17/2015 Inactive citalopram 40 mg tablet RxNorm: 454637 1 Tablet(s) PO daily No Start Date 03/03/2016 Inactive hyoscyamine 0.125 mg disintegrating tablet RxNorm: 7115226 1-2 Tablet(s) PO Q8 as needed No [...] Code Item Item Code Result Date B12 Ipb125 B12 >1500.00 pg/ml 02/19/2017 Cbc With Differential [...] 31.5 pg 02/02/2017 Cbc With Differential Ord2 [place]% 8.3 % 02/02/2017 Cbc With Differential Ord2 [...] 2.28 K/ul 02/02/2017 Cbc With Differential Ord2 [place] ABS# 0.6 K/ul 02/02/2017 Cbc With Differential Ord2 Eos ABS# 0.4 K/ul 02/02/2017 Cbc With Differential Ord2 Baso ABS# 0.0 K/ul 02/02/2017 %Hba1C Lzn094 % HbA1c 63882-8 5.2 % 02/02/2017 %Hba1C Yyd427 Gluc Ave 103 mg/dL 02/02/2017 Comp Metabolic Dnx768 NA 138 mEq/L 02/02/2017 Comp Metabolic Fsg780 K 4.5 mEq/L 02/02/2017 Comp Metabolic Cuc096 CL 98 mEq/L 02/02/2017 Comp Metabolic Upc642 CO2 37.0 mEq/L 02/02/2017 Comp Metabolic Ikd684 ANION GAP 8 02/02/2017 Comp Metabolic Tlx002 GLUCOSE 94 mg/dL 02/02/2017 Comp Metabolic Lnp609 Creat 0.7 mg/dL 02/02/2017 Comp Metabolic Pfd684 eGFR 88 ml/min/1.73m2 02/02/2017 Comp Metabolic Ncc988 BUN 36 mg/dL 02/02/2017 Comp Metabolic Que209 B/C Ratio 50.7 Ratio 02/02/2017 Comp Metabolic Cpp505 CALCIUM 9.0 mg/dL 02/02/2017 Comp Metabolic Uto270 ALK PHOS 78 U/L 02/02/2017 Comp Metabolic Kdp999 AST(SGOT) 22 U/L 02/02/2017 Comp Metabolic Cgv618 ALT(SGPT) 28 U/L 02/02/2017 Comp Metabolic Rgq698 BILI T 0.3 mg/dL 02/02/2017 Comp Metabolic Cbg779 ALBUMIN 3.3 g/dL 02/02/2017 Comp Metabolic Sfy696 TPRO 5.9 g/dL 02/02/2017 Comp Metabolic Ssc745 GLOB 2.6 g/dL 02/02/2017 Comp Metabolic Bre502 A/G Ratio 1.3 Ratio 02/02/2017 Comp Metabolic Hru307 Osmo 284 mOsmo 02/02/2017 %Hba1C Sry976 % HbA1c 93616-3 5.0 % 10/29/2016 %Hba1C Lga575 Gluc Ave 97 mg/dL 10/29/2016 Culture Urine [id number] URINE CULTURE SEE NOTES 09/21/2016 Culture Urine [id number] Continued Results 09/21/2016 Urine Culture Ucult Complete [...] 32.4 pg 07/30/2016 Cbc With Differential Ord2 [place]% 7.2 % 07/30/2016 Cbc With Differential Ord2 [...] 2.69 K/ul 07/30/2016 Cbc With Differential Ord2 [place] ABS# 0.5 K/ul 07/30/2016 Cbc With Differential Ord2 Eos ABS# 0.5 K/ul 07/30/2016 Cbc With Differential Ord2 Baso ABS# 0.0 K/ul 07/30/2016 Comp Metabolic Vor707 NA 141 mEq/L 07/30/2016 Comp Metabolic Hfj215 K 4.3 mEq/L 07/30/2016 Comp Metabolic Bym984 CL 100 mEq/L 07/30/2016 Comp Metabolic Dqr619 CO2 33.0 mEq/L 07/30/2016 Comp Metabolic Eua997 ANION GAP 12 07/30/2016 Comp Metabolic Ryh248 GLUCOSE 64 mg/dL 07/30/2016 Comp Metabolic Pjp605 Creat 0.5 mg/dL 07/30/2016 Comp Metabolic Vmt507 eGFR 126 ml/min/1.73m2 07/30/2016 Comp Metabolic Jhx555 BUN 25 mg/dL 07/30/2016 Comp Metabolic Tzu543 B/C Ratio 48.1 Ratio 07/30/2016 Comp Metabolic Pqa225 CALCIUM 8.9 mg/dL 07/30/2016 Comp Metabolic Tjj409 ALK PHOS 90 U/L 07/30/2016 Comp Metabolic Krm803 AST(SGOT) 22 U/L 07/30/2016 Comp Metabolic Qis023 ALT(SGPT) 36 U/L 07/30/2016 Comp Metabolic Vak215 BILI T 0.3 mg/dL 07/30/2016 Comp Metabolic Sey386 ALBUMIN 3.4 g/dL 07/30/2016 Comp Metabolic Qtt376 TPRO 6.0 g/dL 07/30/2016 Comp Metabolic Hui645 GLOB 2.7 g/dL 07/30/2016 Comp Metabolic Vrb779 A/G Ratio 1.3 Ratio 07/30/2016 Comp Metabolic Voy201 Osmo 284 mOsmo 07/30/2016 A1C Frequency Yqr271 A1CF 96581-7 Last [place] [facility] [place]: 05-12-2016 07/30/2016 %Hba1C Ikw543 % HbA1c 33825-0 5.2 % 05/12/2016 %Hba1C Zoa784 Gluc Ave 103 mg/dL 05/12/2016 Culture Urine [id number] URINE CULTURE SEE NOTES 05/11/2016 Urine Culture [...] U-Com Culture to follow 05/06/2016 Culture Urine [id number] URINE CULTURE SEE NOTES 03/17/2016 Culture Urine [id number] Continued Results 03/17/2016 Urine Culture Ucult Complete [...] 32.0 pg 02/11/2016 Cbc With Differential Ord2 [place]% 9.1 % 02/11/2016 Cbc With Differential Ord2 [...] 2.59 K/ul 02/11/2016 Cbc With Differential Ord2 [place] ABS# 0.6 K/ul 02/11/2016 Cbc With Differential Ord2 Eos ABS# 0.3 K/ul 02/11/2016 Cbc With Differential Ord2 Baso ABS# 0.0 K/ul 02/11/2016 Comp Metabolic Qjs212 NA 137 mEq/L 02/11/2016 Comp Metabolic Tca883 K 4.4 mEq/L 02/11/2016 Comp Metabolic Abt192 CL 100 mEq/L 02/11/2016 Comp Metabolic Hck172 CO2 25.0 mEq/L 02/11/2016 Comp Metabolic Bfv504 ANION GAP 16 02/11/2016 Comp Metabolic Ejg660 GLUCOSE 99 mg/dL 02/11/2016 Comp Metabolic Mhl126 Creat 0.6 mg/dL 02/11/2016 Comp Metabolic Tgu594 eGFR 99 ml/min/1.73m2 02/11/2016 Comp Metabolic Lax568 BUN 27 mg/dL 02/11/2016 Comp Metabolic Pom559 B/C Ratio 42.2 Ratio 02/11/2016 Comp Metabolic Wzo123 CALCIUM 9.2 mg/dL 02/11/2016 Comp Metabolic Ijp751 ALK PHOS 74 U/L 02/11/2016 Comp Metabolic Ecp632 AST(SGOT) 24 U/L 02/11/2016 Comp Metabolic Vvn591 ALT(SGPT) 26 U/L 02/11/2016 Comp Metabolic Dpo668 BILI T 0.5 mg/dL 02/11/2016 Comp Metabolic Xfm282 ALBUMIN 3.5 g/dL 02/11/2016 Comp Metabolic Uak809 TPRO 6.2 g/dL 02/11/2016 Comp Metabolic Uji648 GLOB 2.7 g/dL 02/11/2016 Comp Metabolic Ozb225 A/G Ratio 1.3 Ratio 02/11/2016 Comp Metabolic Eer978 Osmo 279 mOsmo 02/11/2016 Review of Systems [...] Code : 8480-6 BMI: 31.4 Code : 00354-0 Heart Rate 1 : 72 bpm Height: 5'1" Weight: 166 lbs 06/17/2015 Blood Pressure 1: 110/78 Code : 8480-6 BMI: 33.3 Code : 24098-4 Heart Rate 1 : 74 bpm Height: [...] Present Encounters Encounter Performer Location Codes Date ([id number]) 71647 EST. PATIENT, LEVEL IV Diagnosis: Essential (primary) hypertension[ICD10: I10] Diagnosis: Type 2 diabetes mellitus with hyperglycemia[ICD10: E11.65] Diagnosis: Low back pain[ICD10: M54.5] [facility] CPT-4 : 87763 04/15/2017 ([id number]) 65973 EST. PATIENT, LEVEL IV Diagnosis: Essential (primary) hypertension[ICD10: I10] Diagnosis: Type 2 diabetes mellitus with hyperglycemia[ICD10: E11.65] Diagnosis: Low back pain[ICD10: M54.5] [facility] CPT- 4: 32922 02/16/2017 [id number] EST. 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 04/15/2017 [phone] [id number] ([facility] Complex 04/15/2017 Patient Education: [...] hydrocodone today. 02/16/2017 [facility] [phone] [facility] ([facility] min) Moderate 02/16/2017 Patient Education: [...] concerns. 11/09/2016 [facility] [phone] [id number] ([facility] min) Complex 11/09/2016 Patient Education: Patient Medication Summary Completed 11/09/2016 Care Plan: Referral Order SNOMED-CT : [id number] Pending 11/09/2016 Patient Education: Patient Medication Summary [...] Follow up weight in 1 month Neck [id number] PT focus neck/upper body Right earache-cerumen removed with water pick today in the office 07/18/2015 Appointment: (30 min) Complex 07/18/2015 Patient Education: Patient Medication Summary Completed 07/18/2015 Patient Education: Obesity Completed 07/18/2015 Patient Education: .Cervicalgia Neck Pain Completed 07/18/2015 [facility] [phone] [phone] Referral Completed 06/25/2015 Visit Plan: Hypertension [...] normal liver response to medications. [facility] post stroke - left sided weakness, neck stiffness, upper extremity weakness Diabetes Mellitus - controlled - per family report - check labs this week, get report from and [facility]. I spent over an hour with the patient in direct contact. 06/17/2015 App[facility]ment: [facility] [phone] [id number] New Patient 06/17/2015 Patient Education: Patient Medication Summary Completed 06/17/2015 Patient Education: Obesity Completed 06/17/2015 Patient Education: Hypertension Completed 06/17/2015 Care Plan: Referral Order SNOMED-CT : [id number] Ordered 06/17/2015 Referral: Jorge Luis Carroll Referral Initiated Ref[facility] [phone] [facility] Referral Appointment Requested Instructions Comment . [...] normal liver response to medications. referral to [facility] physical [facility] occupational therapy for post stroke - left sided weakness, neck stiffness, upper extremity weakness Diabetes Mellitus - controlled - per family report - check labs this week, [facility] [place]. I spent over an hour with the patient in direct contact. . PEG tube - tube has not been replaced in some time, some mild irritation noted around the tube - will refer to surgeon for PEG tube replacement. Pt/family is to notify clinic with any changes, questions, or concerns. Add 1 scoop of whey protein from [facility] to 2 feedings per day . Hypertension - well controlled - continue with current medications, continue with no added salt diet. Pt has been encouraged to exercise daily. The pt has been advised to call the office if there are any acute concerns about change in blood pressure readings at home. Dysphagia-on tube feedings-weight loss of 10# in 1 month-Dr Karlos in to evaluate patient-add 1 scoop of protein powder to 2 feedings/day. Follow up weight in 1 month Neck ggkr-[id number] PT focus neck/upper body Right earache-cerumen removed [...]
--- OUTSIDE RECORDS SUMMARY | 2017-12-16 14:45 | XMS REPORT | CCD ---
Author Author Vonda Everett Organization Vonda Everett MD, [facility] Address [address] [place] [address] Phone Care Team Providers Care Toddler Guide Name Role Phone PP Unavailable CCM Unavailable Summary Purpose Interface Exchange Insurance Providers Payer name Policy type / Coverage type Covered alliance party ID Effective Begin Date Effective End Date WPS Medicare Part B Medicare Part B [id number] Unknown Unknown [employer] Medicare Part B [id number] Unknown Unknown Family history Father Diagnosis Age At Onset Arthritis Unknown Hypertension Unknown Mother Diagnosis Age At Onset Diabetes mellitus Type 2 Unknown Depression Unknown Arthritis Unknown Stroke Unknown Hypertension Unknown Sister Diagnosis Age At Onset Colon cancer Unknown Social History Social History Element Codes Description Effective Dates Living arrangements Unknown [facility] 04/15/2017 Marital status Unknown Anothony 06/17/2015 Number of children Unknown 3 06/17/2015 Employment Unknown Retired 06/17/[address]: 9519697 Quit over 10 years ago 15+ 06/17/[address]: 462419408 Never drinks alcohol 06/17/2015 Allergies, Adverse Reactions, [...] Instructions fentanyl 100 mcg/hr transdermal patch RxNorm: 749302 1 Patch TD Q72H 04/27/2017 05/26/2017 Active carvedilol 3.125 mg tablet RxNorm: 052321 Tablet(s) GIVE 1 TABLET VIA PEG TUBE DAILY 04/15/2017 No Stop Date Active Levemir FlexTouch 100 unit/mL (3 mL) subcutaneous insulin pen RxNorm: 617945 10 Unit(s) SQ BID 04/15/2017 No Stop Date Active hyoscyamine 0.125 mg disintegrating tablet RxNorm: 8565375 1-2 Tablet(s) PO Q8 as needed 04/14/2017 05/03/2017 Active hydrocodone 10 mg-acetaminophen 325 mg tablet RxNorm: 413897 1 Tablet(s) PO scheduled BID et Q6 hours as needed 04/13/2017 05/12/2017 Active baclofen 10 mg tablet RxNorm: 045111 TAKE 1 TABLET THREE TIMES DAILY VIA STOMACH TUBE 04/08/2017 05/22/2017 Active 04/08/2017 9:32:07 AM fentanyl 25 mcg/hr transdermal patch RxNorm: 312584 1 Patch TD Q72H 04/05/2017 05/04/2017 Active lidocaine 10 mg/mL (1 %) injection solution RxNorm: 0876369 1 Milliliter(s) Inj daily Mix with rocephin 03/31/20172017 Inactive Pt [facility] at [facility] lidocaine 10 mg/mL (1 %) injection solution RxNorm: 6519346 1 Milliliter(s) Inj daily Mix with rocephin 03/31/20172017 Inactive Pt resides at [facility] nystatin 100,000 unit/gram topical powder RxNorm: 916568 APPLY UNDER BREASTS TWICE DAILY FOR YEAST SKIN INFECTION AND APPLY TO UNDERARM AND ABDOMINAL FOLDS AND PERIAREA TWICE DAILY 03/29/20172017 Active 03/29/2017 9:42:55 AM2017 9:12:50 AM fentanyl 100 mcg/hr transdermal patch RxNorm: 804307 1 Patch TD Q72H 03/29/2017 04/26/2017 Inactive nystatin 100,000 unit/gram topical powder RxNorm: 548313 APPLY UNDER BREASTS TWICE DAILY FOR YEAST SKIN INFECTION AND APPLY TO UNDERARM AND ABDOMINAL FOLDS AND PERIAREA TWICE DAILY 03/29/20172017 Inactive 03/27/2017 9:12:50 AM hyoscyamine 0.125 mg disintegrating tablet RxNorm: 3083768 1-2 Tablet(s) PO Q8 as needed 03/08/2017 03/27/2017 Inactive fentanyl 25 mcg/hr transdermal patch RxNorm: 220602 1 Patch TD Q72H 03/02/2017 03/31/2017 Inactive hydrocodone 10 mg-acetaminophen 325 mg tablet RxNorm: 096825 1 Tablet(s) PO scheduled BID et Q6 hours as needed 02/17/2017 03/18/2017 Inactive fentanyl 100 mcg/hr transdermal patch RxNorm: 439469 1 Patch TD Q72H 02/17/2017 03/18/2017 Inactive Lexapro 10 mg tablet RxNorm: 340527 1 Tablet(s) PO daily 201604/14/2017 Inactive Lexapro 10 mg tablet RxNorm: 885057 1 Tablet(s) PO daily 201602/04/2017 Inactive fentanyl 25 mcg/hr transdermal patch RxNorm: 170038 1 Patch TD Q72H 02/04/2017 03/01/2017 Inactive cyanocobalamin (vit B-12) 1,000 mcg tablet RxNorm: 858354 1 Tablet(s) PO daily 01/18/2017 12/13/2017 Active hyoscyamine 0.125 mg disintegrating tablet RxNorm: 5299197 Tablet(s) 1-2 Tablet(s ) PO Q8 as needed 01/18/2017 02/06/2017 Inactive baclofen 10 mg tablet RxNorm: 881845 TAKE 1 TABLET THREE TIMES DAILY VIA STOMACH TUBE 01/04/2017 02/17/2017 Inactive 01/04/2017 9:25:18 AM fentanyl 100 mcg/hr transdermal patch RxNorm: 954121 1 Patch TD Q72H 12/25/2016 01/23/2017 Inactive hydrochlorothiazide 25 mg tablet RxNorm: 342428 Tablet(s) GIVE 1 TABLET VIA PEG TUBE ONCE A DAY 12/14/2016 07/11/2017 Active fentanyl 100 mcg/hr transdermal patch RxNorm: 324631 1 Patch TD Q72H 11/25/2016 12/24/2016 Inactive hyoscyamine 0.125 mg disintegrating tablet RxNorm: 3124987 Tablet(s) 1-2 Tablet(s ) PO Q8 as needed 11/25/2016 12/14/2016 Inactive nystatin 100,000 unit/gram topical powder RxNorm: 501290 APPLY UNDER BREASTS TWICE DAILY FOR YEAST SKIN INFECTION AND APPLY TO UNDERARM AND ABDOMINAL FOLDS AND PERIAREA TWICE DAILY 11/24/20162016 Inactive 11/24/2016 9:34:02 AM hydrocodone 10 mg-acetaminophen 325 mg tablet RxNorm: 855196 1 Tablet(s) PO scheduled BID et Q6 hours as needed 11/02/2016 12/01/2016 Inactive cyanocobalamin (vit B-12) 1,000 mcg tablet RxNorm: 541652 1 Tablet(s) PO daily 11/02/2016 01/17/2017 Inactive hyoscyamine 0.125 mg disintegrating tablet RxNorm: 8779887 1-2 Tablet(s) PO Q8 as needed 10/19/2016 11/24/2016 Inactive fentanyl 100 mcg/hr transdermal patch RxNorm: 666635 1 Patch TD Q72H 10/13/2016 11/11/2016 Inactive hydrocodone 10 mg-acetaminophen 325 mg tablet RxNorm: 833384 1 Tablet(s) PO scheduled BID et Q6 hours as needed 10/05/2016 11/01/2016 Inactive baclofen 10 mg tablet RxNorm: 802415 TAKE 1 TABLET THREE TIMES DAILY VIA STOMACH TUBE 10/01/2016 11/14/2016 Inactive 10/01/2016 9:24:37 AM carvedilol 3.125 mg tablet RxNorm: 419767 GIVE 1 TABLET VIA PEG TUBE 2 TIMES A DAY 09/30/2016 12/28/2016 Inactive Generic For:COREG 3.125MG 09/30/2016 1:12:28 PM09/25/2016 9:06:11 AM Probiotic Blend 2 million cell-50 mg capsule RxNorm: 1 Capsule(s) PO BID 09/17/2016 09/23/2016 Inactive Keflex 500 mg capsule RxNorm: 123673 1 Capsule(s) PO TID 201609/23/2016 Inactive hyoscyamine 0.125 mg/5 mL oral elixir RxNorm: 0993176 5 Milliliter(s) PO TID 09/08/2016 09/17/2016 Inactive hyoscyamine 0.125 mg/5 mL oral elixir RxNorm: 2853691 5 Milliliter(s) PO TID 09/08/2016 09/07/2016 Inactive hyoscyamine 0.125 mg disintegrating tablet RxNorm: 2300995 1-2 Tablet(s) PO Q8 as needed 09/07/2016 10/18/2016 Inactive fentanyl 100 mcg/hr transdermal patch RxNorm: 859548 1 Patch TD Q72H 09/01/2016 09/30/2016 Inactive ranitidine 150 mg tablet RxNorm: 680622 1 Tablet(s) PO BID 08/2016 No Stop Date Active hydrocodone 10 mg-acetaminophen 325 mg tablet RxNorm: 051372 1 Tablet(s) PO scheduled BID et Q6 hours as needed 08/24/2016 09/22/2016 Inactive cyanocobalamin (vit B-12) 1,000 mcg tablet RxNorm: 949276 1 Tablet(s) PO daily 08/12/2016 11/01/2016 Inactive cyanocobalamin (vit B-12) 1,000 mcg tablet RxNorm: 840381 1 Tablet(s) PO daily 08/12/2016 08/11/2016 Inactive hydrocodone 10 mg-acetaminophen 325 mg tablet RxNorm: 563040 1-2 Tablet(s) PO Q6 as needed 08/03/2016 08/17/2016 Inactive fentanyl 100 mcg/hr transdermal patch RxNorm: 555683 1 Patch TD Q72H 08/03/2016 08/31/2016 Inactive nystatin 100,000 unit/gram topical powder RxNorm: 965676 APPLY UNDER BREASTS TWICE DAILY FOR YEAST SKIN INFECTION AND APPLY TO UNDERARM AND ABDOMINAL FOLDS AND PERIAREA TWICE DAILY 07/17/20162016 Inactive 07/17/2016 3:56:54 PM fentanyl 100 mcg/hr transdermal patch RxNorm: 735870 1 Patch TD Q72H 07/15/2016 08/02/2016 Inactive lisinopril 20 mg tablet RxNorm: 484937 1 Tablet(s) PO daily 03/28/2017 Inactive hydrocodone 10 mg-acetaminophen 325 mg tablet RxNorm: 441308 1-2 Tablet(s) PO Q6 as needed 07/01/2016 07/15/2016 Inactive Xarelto 20 mg tablet RxNorm: 4163204 Tablet(s) TAKE 1 TABLET VIA PEG TUBE AT BEDTIME 06/19/2016 04/14/2017 Inactive fentanyl 100 mcg/hr transdermal patch RxNorm: 214754 1 Patch TD Q72H 06/17/2016 07/14/2016 Inactive nystatin 100,000 unit/gram topical powder RxNorm: 478268 APPLY TO UNDER BREASTS TWICE DAILY FOR YEAST SKIN INFECTION AND APPLY TO UNDERARM AND ABDOMINAL FOLDS AND PERIAREA TWICE DAILY 06/15/20162016 Inactive Generic For:MYCOSTATIN 100, 000 UNITS/GM PW 06/15/2016 12:28:26 PM fentanyl 100 mcg/hr transdermal patch RxNorm: 316829 1 Patch TD Q72H 06/05/2016 06/16/2016 Inactive hydrocodone 10 mg-acetaminophen 325 mg tablet RxNorm: 736314 1-2 Tablet(s) PO Q6 as needed 06/02/2016 06/16/2016 Inactive Probiotic Blend 2 million cell-50 mg capsule RxNorm: 1 Capsule(s) PO BID 05/13/2016 05/19/2016 Inactive nitrofurantoin 100 mg capsule RxNorm: 466114 1 Capsule(s) PO BID 05/13/2016 05/19/2016 Inactive nitrofurantoin 100 mg capsule RxNorm: 961467 1 Capsule(s) PO BID 05/13/2016 05/12/2016 Inactive fentanyl 75 mcg/hr transdermal patch RxNorm: 592246 1 Patch TD Q72H 05/13/2016 06/04/2016 Inactive Keflex 500 mg capsule RxNorm: 782345 1 Capsule(s) PO TID 201605/13/2016 Inactive Patient at [facility] Keflex 500 mg capsule RxNorm: 868645 1 Capsule(s) PO TID 201605/06/2016 Inactive hydrocodone 10 mg-acetaminophen 325 mg tablet RxNorm: 592001 1-2 Tablet(s) PO Q6 as needed 05/04/2016 06/01/2016 Inactive hydrochlorothiazide 25 mg tablet RxNorm: 862453 Tablet(s) GIVE 1 TABLET VIA PEG TUBE ONCE A DAY 04/29/2016 11/24/2016 Inactive hydrochlorothiazide 25 mg tablet RxNorm: 519322 GIVE 1 TABLET VIA PEG TUBE ONCE A DAY 04/22/2016 04/28/2016 Inactive Generic For:HYDRODIURIL 25 MG TABLET refill request fentanyl 75 mcg/hr transdermal patch RxNorm: 144589 1 Patch TD Q72H 04/17/2016 05/12/2016 Inactive Xarelto 20 mg tablet RxNorm: 6749320 TAKE 1 TABLET VIA PEG TUBE AT BEDTIME 04/16/2016 06/14/2016 Inactive 04/16/2016 9:08:52 AM citalopram 40 mg tablet RxNorm: 279150 1 Tablet(s) PO daily 02/201702/25/2017 Inactive citalopram 40 mg tablet RxNorm: 872866 1 Tablet(s) PO daily 08/201604/01/2016 Inactive hydrocodone 10 mg-acetaminophen 325 mg tablet RxNorm: 535713 1-2 Tablet(s) PO Q6 as needed 03/27/2016 04/25/2016 Inactive fentanyl 75 mcg/hr transdermal patch RxNorm: 282508 1 Patch TD Q72H 03/18/2016 04/16/2016 Inactive hydrocodone 10 mg-acetaminophen 325 mg tablet RxNorm: 002776 1-2 Tablet(s) PO Q6 as needed 03/11/2016 03/26/2016 Inactive citalopram 40 mg tablet RxNorm: 420651 1 Tablet(s) PO daily 03/26/2016 Inactive Levemir FlexTouch 100 unit/mL (3 mL) subcutaneous insulin pen RxNorm: 653052 20 Unit(s) SQ BID 03/02/2016 09/27/2016 Inactive lisinopril 20 mg tablet RxNorm: 163296 1 Tablet(s) PO daily 08/201507/01/2016 Inactive Ativan 0.5 mg tablet RxNorm: 884294 1 Tablet(s) PO Q4H as needed 02/18/2016 04/14/2017 Inactive Xarelto 20 mg tablet RxNorm: 7574753 TAKE 1 TABLET VIA PEG TUBE AT BEDTIME 02/12/2016 04/11/2016 Inactive 02/12/2016 9:08:22 AM hydrocodone 10 mg-acetaminophen 325 mg tablet RxNorm: 599063 1-2 Tablet(s) PO Q6 as needed 02/12/2016 03/10/2016 Inactive fentanyl 75 mcg/hr transdermal patch RxNorm: 730637 1 Patch TD Q72H 02/11/2016 03/11/2016 Inactive citalopram 20 mg tablet RxNorm: 689967 1 Tablet(s) PO daily 10/201503/03/2016 Inactive fentanyl 75 mcg/hr transdermal patch RxNorm: 414342 1 TD Q72H 01/17/2016 02/10/2016 Inactive hydrocodone 10 mg-acetaminophen 325 mg tablet RxNorm: 547865 1-2 Tablet(s) PO Q6 as needed 01/07/2016 02/05/2016 Inactive fentanyl 50 mcg/hr transdermal patch RxNorm: 441817 1 TD Q72H 01/01/2016 01/16/2016 Inactive fentanyl 50 mcg/hr transdermal patch RxNorm: 478570 1 TD q 3 days 12/26/2015 12/31/2015 Inactive Xarelto 20 mg tablet RxNorm: 7103026 TAKE 1 TABLET VIA PEG TUBE AT BEDTIME 12/17/2015 02/11/2016 Inactive 12/16/2015 3:27:57 PM12/14/2015 9:45:17 AM hydrocodone 10 mg-acetaminophen 325 mg tablet RxNorm: 405726 1-2 Tablet(s) PO Q6 as needed 12/06/2015 01/04/2016 Inactive fentanyl 50 mcg/hr transdermal patch RxNorm: 928704 1 TD q 3 days 12/06/2015 12/25/2015 Inactive fentanyl 25 mcg/hr transdermal patch RxNorm: 106844 1 TD q 3 days 11/18/2015 12/05/2015 Inactive Zithromax Z-Eliu 250 mg tablet RxNorm: 506287 1 Tablet(s) PO UD 10/09/2015 02/26/2016 Inactive z pack as directed- please write out instructions- pt at [facility] nystatin 100,000 unit/gram topical powder RxNorm: 342818 APPLY TO UNDER BREASTS TWICE DAILY FOR YEAST SKIN INFECTION AND APPLY TO UNDERARM AND ABDOMINAL FOLDS AND PERIAREA TWICE DAILY 10/07/20152015 Inactive Generic For:MYCOSTATIN 100, 000 UNITS/GM PW 10/05/2015 12:07:35 PM fentanyl 25 mcg/hr transdermal patch RxNorm: 722061 1 TD q 3 days 10/03/2015 11/01/2015 Inactive fentanyl 25 mcg/hr transdermal patch RxNorm: 830846 1 TD q 3 days 09/27/2015 10/02/2015 Inactive fentanyl 25 mcg/hr transdermal patch RxNorm: 205883 1 TD q 3 days 09/17/2015 09/26/2015 Inactive fentanyl 25 mcg/hr transdermal patch RxNorm: 355009 1 TD q 3 days 08/30/2015 09/16/2015 Inactive hydrocodone 5 mg-acetaminophen 325 mg tablet RxNorm: 572329 1 Tablet(s) PO Q6 as needed 08/30/2015 09/28/2015 Inactive Diflucan 100 mg tablet RxNorm: 706267 1 Tablet(s) Miscellaneous per peg daily 07/29/2015 08/04/2015 Inactive fentanyl 25 mcg/hr transdermal patch RxNorm: 479313 1 TD q 3 days 07/18/2015 08/29/2015 Inactive hydrocodone 5 mg-acetaminophen 325 mg tablet RxNorm: 777332 1 Tablet(s) PO Q6 as needed 07/18/2015 08/29/2015 Inactive Diflucan 100 mg tablet RxNorm: 812752 1 Tablet(s) Miscellaneous per peg daily 06/17/2015 06/23/2015 Inactive baclofen 10 mg tablet RxNorm: 595896 1 Tablet(s) PO TID No Start Date 09/30/2016 Inactive Ativan 0.5 mg tablet RxNorm: 002113 1 Tablet(s) PO Q4H as needed No Start Date 02/17/2016 Inactive ranitidine 150 mg tablet RxNorm: 605824 1 Tablet(s) PO daily No Start Date 08/24/2016 Inactive carvedilol 3.125 mg tablet RxNorm: 455460 1 Tablet(s) PO daily No Start Date 09/29/2016 Inactive citalopram 40 mg tablet RxNorm: 351195 1 Tablet(s) PO daily No Start Date 01/27/2016 Inactive Probiotic Blend oral RxNorm: oral No Start Date 05/12/2016 Inactive hydrochlorothiazide 25 mg tablet RxNorm: 936043 1 Tablet(s) PO daily No Start Date 04/21/2016 Inactive Levemir FlexTouch 100 unit/mL (3 mL) subcutaneous insulin pen RxNorm: 849680 10 Unit(s) SQ BID No Start Date 03/01/2016 Inactive Zithromax Z-Eliu 250 mg tablet RxNorm: 147354 1 Tablet(s) PO UD No Start Date 10/08/2015 Inactive z pack as directed- please write out instructions- pt at [facility] nystatin 100,000 unit/gram topical powder RxNorm: 443163 Gram(s) TOP BID as needed No Start Date 10/06/2015 Inactive pravastatin 40 mg tablet RxNorm: 987501 Tablet(s) PO daily No Start Date 04/14/2017 Inactive Xarelto 20 mg tablet RxNorm: 0930079 1 Tablet(s) PO daily No Start Date 12/16/2015 Inactive fentanyl 25 mcg/hr transdermal patch RxNorm: 468747 1 TD q 3 days No Start Date 07/17/2015 Inactive lisinopril 20 mg tablet RxNorm: 866054 1 Tablet(s) PO daily No Start Date 02/24/2016 Inactive hydrocodone 5 mg-acetaminophen 325 mg tablet RxNorm: 751957 1 Tablet(s) PO Q6 as needed No Start Date 07/17/2015 Inactive citalopram 40 mg tablet RxNorm: 628847 1 Tablet(s) PO daily No Start Date 03/03/2016 Inactive hyoscyamine 0.125 mg disintegrating tablet RxNorm: 9378347 1-2 Tablet(s) PO Q8 as needed No [...] Code Item Item Code Result Date B12 Cwn096 B12 >1500.00 pg/ml 02/19/2017 Cbc With Differential [...] 31.5 pg 02/02/2017 Cbc With Differential Ord2 [place]% 8.3 % 02/02/2017 Cbc With Differential Ord2 [...] 2.28 K/ul 02/02/2017 Cbc With Differential Ord2 [place] ABS# 0.6 K/ul 02/02/2017 Cbc With Differential Ord2 Eos ABS# 0.4 K/ul 02/02/2017 Cbc With Differential Ord2 Baso ABS# 0.0 K/ul 02/02/2017 %Hba1C Efj133 % HbA1c 09041-1 5.2 % 02/02/2017 %Hba1C Sbp260 Gluc Ave 103 mg/dL 02/02/2017 Comp Metabolic Zer742 NA 138 mEq/L 02/02/2017 Comp Metabolic Qvo778 K 4.5 mEq/L 02/02/2017 Comp Metabolic Xyq149 CL 98 mEq/L 02/02/2017 Comp Metabolic Pmp473 CO2 37.0 mEq/L 02/02/2017 Comp Metabolic Juz524 ANION GAP 8 02/02/2017 Comp Metabolic Fvv501 GLUCOSE 94 mg/dL 02/02/2017 Comp Metabolic Qqj016 Creat 0.7 mg/dL 02/02/2017 Comp Metabolic Sic671 eGFR 88 ml/min/1.73m2 02/02/2017 Comp Metabolic Gcl483 BUN 36 mg/dL 02/02/2017 Comp Metabolic Nnt001 B/C Ratio 50.7 Ratio 02/02/2017 Comp Metabolic Vjs111 CALCIUM 9.0 mg/dL 02/02/2017 Comp Metabolic Rxt133 ALK PHOS 78 U/L 02/02/2017 Comp Metabolic Lhr572 AST(SGOT) 22 U/L 02/02/2017 Comp Metabolic Oty268 ALT(SGPT) 28 U/L 02/02/2017 Comp Metabolic Ozw172 BILI T 0.3 mg/dL 02/02/2017 Comp Metabolic Oqx663 ALBUMIN 3.3 g/dL 02/02/2017 Comp Metabolic Kze120 TPRO 5.9 g/dL 02/02/2017 Comp Metabolic Deg620 GLOB 2.6 g/dL 02/02/2017 Comp Metabolic Lib281 A/G Ratio 1.3 Ratio 02/02/2017 Comp Metabolic Awo867 Osmo 284 mOsmo 02/02/2017 %Hba1C Hla869 % HbA1c 38069-2 5.0 % 10/29/2016 %Hba1C Wqy778 Gluc Ave 97 mg/dL 10/29/2016 Culture Urine [id number] URINE CULTURE SEE NOTES 09/21/2016 Culture Urine [id number] Continued Results 09/21/2016 Urine Culture Ucult Complete [...] 32.4 pg 07/30/2016 Cbc With Differential Ord2 [place]% 7.2 % 07/30/2016 Cbc With Differential Ord2 [...] 2.69 K/ul 07/30/2016 Cbc With Differential Ord2 [place] ABS# 0.5 K/ul 07/30/2016 Cbc With Differential Ord2 Eos ABS# 0.5 K/ul 07/30/2016 Cbc With Differential Ord2 Baso ABS# 0.0 K/ul 07/30/2016 Comp Metabolic Ocm176 NA 141 mEq/L 07/30/2016 Comp Metabolic Fkf303 K 4.3 mEq/L 07/30/2016 Comp Metabolic Puh299 CL 100 mEq/L 07/30/2016 Comp Metabolic Sui354 CO2 33.0 mEq/L 07/30/2016 Comp Metabolic Xhz970 ANION GAP 12 07/30/2016 Comp Metabolic Kev568 GLUCOSE 64 mg/dL 07/30/2016 Comp Metabolic Wpy885 Creat 0.5 mg/dL 07/30/2016 Comp Metabolic Xew494 eGFR 126 ml/min/1.73m2 07/30/2016 Comp Metabolic Zmr391 BUN 25 mg/dL 07/30/2016 Comp Metabolic Tfo105 B/C Ratio 48.1 Ratio 07/30/2016 Comp Metabolic Emn232 CALCIUM 8.9 mg/dL 07/30/2016 Comp Metabolic Odu469 ALK PHOS 90 U/L 07/30/2016 Comp Metabolic Ohq581 AST(SGOT) 22 U/L 07/30/2016 Comp Metabolic Wig976 ALT(SGPT) 36 U/L 07/30/2016 Comp Metabolic Ydx040 BILI T 0.3 mg/dL 07/30/2016 Comp Metabolic Nno772 ALBUMIN 3.4 g/dL 07/30/2016 Comp Metabolic Pkn732 TPRO 6.0 g/dL 07/30/2016 Comp Metabolic Bcr222 GLOB 2.7 g/dL 07/30/2016 Comp Metabolic Lmv829 A/G Ratio 1.3 Ratio 07/30/2016 Comp Metabolic Zeu367 Osmo 284 mOsmo 07/30/2016 A1C Frequency Hrz923 A1CF 86049-9 Last A1C performed at [facility] lab on: 05-12-2016 07/30/2016 %Hba1C Gef102 % HbA1c 99988-3 5.2 % 05/12/2016 %Hba1C Max230 Gluc Ave 103 mg/dL 05/12/2016 Culture Urine [id number] URINE CULTURE SEE NOTES 05/11/2016 Urine Culture [...] U-Com Culture to follow 05/06/2016 Culture Urine [id number] URINE CULTURE SEE NOTES 03/17/2016 Culture Urine [id number] Continued Results 03/17/2016 Urine Culture Ucult Complete [...] 32.0 pg 02/11/2016 Cbc With Differential Ord2 [place]% 9.1 % 02/11/2016 Cbc With Differential Ord2 [...] 2.59 K/ul 02/11/2016 Cbc With Differential Ord2 [place] ABS# 0.6 K/ul 02/11/2016 Cbc With Differential Ord2 Eos ABS# 0.3 K/ul 02/11/2016 Cbc With Differential Ord2 Baso ABS# 0.0 K/ul 02/11/2016 Comp Metabolic Pmo629 NA 137 mEq/L 02/11/2016 Comp Metabolic Jst914 K 4.4 mEq/L 02/11/2016 Comp Metabolic Xhe668 CL 100 mEq/L 02/11/2016 Comp Metabolic Exe256 CO2 25.0 mEq/L 02/11/2016 Comp Metabolic Wwy680 ANION GAP 16 02/11/2016 Comp Metabolic Old285 GLUCOSE 99 mg/dL 02/11/2016 Comp Metabolic Tgq255 Creat 0.6 mg/dL 02/11/2016 Comp Metabolic Tas047 eGFR 99 ml/min/1.73m2 02/11/2016 Comp Metabolic Mov040 BUN 27 mg/dL 02/11/2016 Comp Metabolic Wvw565 B/C Ratio 42.2 Ratio 02/11/2016 Comp Metabolic Qdn916 CALCIUM 9.2 mg/dL 02/11/2016 Comp Metabolic Zgq874 ALK PHOS 74 U/L 02/11/2016 Comp Metabolic Tys236 AST(SGOT) 24 U/L 02/11/2016 Comp Metabolic Phr300 ALT(SGPT) 26 U/L 02/11/2016 Comp Metabolic Msx417 BILI T 0.5 mg/dL 02/11/2016 Comp Metabolic Aat004 ALBUMIN 3.5 g/dL 02/11/2016 Comp Metabolic Kcj832 TPRO 6.2 g/dL 02/11/2016 Comp Metabolic Pch360 GLOB 2.7 g/dL 02/11/2016 Comp Metabolic Poc463 A/G Ratio 1.3 Ratio 02/11/2016 Comp Metabolic Vba805 Osmo 279 mOsmo 02/11/2016 Review of Systems [...] Code : 8480-6 BMI: 31.4 Code : 40443-5 Heart Rate 1 : 72 bpm Height: 5'1" Weight: 166 lbs 06/17/2015 Blood Pressure 1: 110/78 Code : 8480-6 BMI: 33.3 Code : 01537-2 Heart Rate 1 : 74 bpm Height: [...] Present Encounters Encounter Performer Location Codes Date ([id number]) [id number] EST. PATIENT, LEVEL IV Diagnosis: Essential (primary) hypertension[ICD10: I10] Diagnosis: Type 2 diabetes mellitus with hyperglycemia[ICD10: E11.65] Diagnosis: Low back pain[ICD10: M54.5] Sunitha Everett MD, [facility] CPT-4 : 74593 04/15/2017 43743) 20783 EST. PATIENT, LEVEL IV Diagnosis: Essential (primary) hypertension[ICD10: I10] Diagnosis: Type 2 diabetes mellitus with hyperglycemia[ICD10: E11.65] Diagnosis: Low back pain[ICD10: M54.5] [facility] CPT- 4: 58807 02/16/2017 99684 EST. 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 04/15/2017 Appointment[id number] ([facility] min) Complex 04/15/2017 Patient Education: Patient [...] today. 02/16/2017 [phone] ([facility] min) Moderate 02/16/2017 Patient Education: [...] concerns. 11/09/2016 Appointment: [phone] ([facility] min) Complex 11/09/2016 Patient Education: Patient Medication Summary Completed 11/09/2016 Care Plan: Referral Order SNOMED-CT : [id number] Pending 11/09/2016 Patient Education: Patient Medication Summary [...] Follow up weight in 1 month Neck dhvj-[id number]-Qjta PT focus neck/upper body Right earache-cerumen removed with water pick today in the office 07/18/2015 Appointment: (30 min) Complex 07/18/2015 Patient Education: Patient Medication Summary Completed 07/18/2015 Patient Education: Obesity Completed 07/18/2015 Patient Education: .Cervicalgia Neck Pain Completed 07/18/2015 [phone] Referral Completed 06/25/2015 Visit Plan: Hypertension - [...] normal liver response to medications. referral to [facility] for post stroke - left sided weakness, neck stiffness, upper extremity weakness Diabetes Mellitus - controlled - per family report - check labs this week, get report from and [facility]. I spent over an hour with the patient in direct contact. 06/17/2015 Appointment: Vonda Everett WPtel: [phone] [facility] New Patient 06/17/2015 Patient Education: Patient Medication Summary Completed 06/17/2015 Patient Education: Obesity Completed 06/17/2015 Patient Education: Hypertension Completed 06/17/2015 Care Plan: Referral Order SNOMED-CT : [id number] Ordered 06/17/2015 Referral: Jorge Luis Carroll Referral [phone] [facility] Referral Appointment Requested Instructions Comment . Hypertension [...] normal liver response to medications. referral to [facility] for post stroke - left sided weakness, neck stiffness, upper extremity weakness Diabetes Mellitus - controlled - per family report - check labs this week, get report from and [facility]. I spent over an hour with the patient in direct contact. . PEG tube - tube has not been replaced in some time, some mild irritation noted around the tube - will refer to surgeon for PEG tube replacement. Pt/family is to notify clinic with any changes, questions, or concerns. Add 1 scoop of whey protein from [facility] to 2 feedings per day . Hypertension [...] Follow up weight in 1 month Neck [id number] PT focus neck/upper body Right earache-cerumen removed [...]
--- OUTSIDE RECORDS SUMMARY | 2017-12-16 14:53 | XMS REPORT | Continuity of Care Document ---
Author Author Formerly [facility] Address Unknown Phone Unavailable Allergies Active Description Code Type Severity Reaction Onset Reported/Identified Relationship to Patient Clinical Status Yes morphine Drug Allergy 10/29/2009 Yes morphine Drug Allergy N/A N/A 10/29/2009 Yes morphine [id number] Drug Allergy Mild NAUSEA 04/26/2016 Medications There is no data. Problems Date Dx Coded Attending Type Code Diagnosis Diagnosed By 02/18/1447 JENNIFER LONDON, BHAVANI Del Real Ot I69.391 02/18/1447 BHAVANI RODRIGUEZ MD Ot M19.90 10/29/2009 BHAVANI RODRIGUEZ MD 041.11 MSSA, METHICILLIN SUSCEPTIBLE 10/29/2009 BHAVANI RODRIGUEZ MD 381.81 Eustachian Tube Dysfunction 10/29/2009 041.11 MSSA, METHICILLIN SUSCEPTIBLE 10/29/2009 381.81 Eustachian Tube Dysfunction 10/29/2009 CAMERON VALDEZ DO 041.11 MSSA, METHICILLIN SUSCEPTIBLE 10/29/2009 CAMERON VALDEZ DO 381.81 Eustachian Tube Dysfunction 10/29/2009 CAMERON VALDEZ DO 041.11 MSSA, METHICILLIN SUSCEPTIBLE 10/29/2009 CAMERON VALDEZ DO 381.81 Eustachian Tube Dysfunction 10/29/2009 RUBÉN GOLDMAN APRN 041.11 MSSA, METHICILLIN SUSCEPTIBLE 10/29/2009 RUBÉN GOLDMAN APRN 381.81 Eustachian Tube Dysfunction 10/29/2009 BHAVANI RODRIGUEZ MD 041.11 MSSA, METHICILLIN SUSCEPTIBLE 10/29/2009 BHAVANI RODRIGUEZ MD 381.81 Eustachian Tube Dysfunction 10/29/2009 CAMERON VALDEZ DO 041.11 MSSA, METHICILLIN SUSCEPTIBLE 10/29/2009 CAMERON VALDEZ DO 381.81 Eustachian Tube Dysfunction 10/29/2009 JOSE REED DDS 041.11 MSSA, METHICILLIN SUSCEPTIBLE 10/29/2009 JOSE REED DDS 381.81 Eustachian Tube Dysfunction 10/29/2009 VALDEZ DO, CAMERON K 041.11 MSSA, METHICILLIN SUSCEPTIBLE 10/29/2009 VALDEZ DO, CAMERON K 381.81 Eustachian Tube Dysfunction 10/29/2009 WHITE DDS, JOSE Craven 041.11 MSSA, METHICILLIN SUSCEPTIBLE 10/29/2009 WHITE DDS, JOSE Craven 381.81 Eustachian Tube Dysfunction 10/29/2009 ANOOP DEVELOPMENT MANAGER, JOSE A S 041.11 MSSA, METHICILLIN SUSCEPTIBLE 10/29/2009 ANOOP DEVELOPMENT MANAGER, JOSE A S 381.81 Eustachian Tube Dysfunction 10/29/2009 VALDEZ DO, CAMERON K 041.11 MSSA, METHICILLIN SUSCEPTIBLE 10/29/2009 VALDEZ DO, CAMERON K 381.81 Eustachian Tube Dysfunction 10/29/2009 WHITE DDSDOT 041.11 MSSA, METHICILLIN SUSCEPTIBLE 10/29/2009 WHITE DDSDOT 381.81 Eustachian Tube Dysfunction 10/29/2009 BHAVANI RODRIGUEZ MD 041.11 MSSA, METHICILLIN SUSCEPTIBLE 10/29/2009 JENNIFER LONDON, BHAVANI 381.81 Eustachian Tube Dysfunction 10/29/2009 BHAVANI RODRIGUEZ MD 041.11 MSSA, METHICILLIN SUSCEPTIBLE 10/29/2009 JENNIFER LONDON, BHAVANI 381.81 Eustachian Tube Dysfunction 10/29/2009 BHAVANI RODRIGUEZ MD 041.11 MSSA, METHICILLIN SUSCEPTIBLE 10/29/2009 JENNIFER LONDON, BHAVANI 381.81 Eustachian Tube Dysfunction 10/29/2009 BHAVANI RODRIGUEZ MD 041.11 MSSA, METHICILLIN SUSCEPTIBLE 10/29/2009 JENNIFER LONDON, BHAVANI 381.81 Eustachian Tube Dysfunction 10/29/2009 BHAVANI RODRIGUEZ MD 041.11 MSSA, METHICILLIN SUSCEPTIBLE 10/29/2009 JENNIFER LONDON, BHAVANI 381.81 Eustachian Tube Dysfunction 10/29/2009 BHAVANI RODRIGUEZ MD 041.11 MSSA, METHICILLIN SUSCEPTIBLE 10/29/2009 JENNIFER LONDON, BHAVANI 381.81 Eustachian Tube Dysfunction 10/29/2009 WHITE DDS, JOSE Craven 041.11 MSSA, METHICILLIN SUSCEPTIBLE 10/29/2009 WHITE DDS, JOSE Craven 381.81 Eustachian Tube Dysfunction 12/03/2009 BHAVANI RODRIGUEZ MD 250.00 DIABETES MELLITUS TYPE 2 12/03/2009 BHAVANI RODRIGUEZ MD 272.2 HYPERLIPIDEMIA, MIXED 12/03/2009 BHAVANI RODRIGUEZ MD 401.9 HYPERTENSION, UNSPECIFIED ESSENTIAL 12/03/2009 BHAVANI RODRIGUEZ MD 530.81 GERD 12/03/2009 250.00 DIABETES MELLITUS TYPE 2 12/03/2009 272.2 HYPERLIPIDEMIA , MIXED 12/03/2009 401.9 HYPERTENSION, UNSPECIFIED ESSENTIAL 12/03/2009 530.81 GERD 12/03/2009 VALDEZ DO, CAMERON K 250.00 DIABETES MELLITUS TYPE 2 12/03/2009 VALDEZ DO, CAMERON K 272.2 HYPERLIPIDEMIA, MIXED 12/03/2009 VALDEZ DO, CAMERON K 401.9 HYPERTENSION, UNSPECIFIED ESSENTIAL 12/03/2009 VALDEZ DO, CAMERON K 530.81 GERD 12/03/2009 VALDEZ DO, CAMERON K 250.00 DIABETES MELLITUS TYPE 2 12/03/2009 VALDEZ DO, CAMERON K 272.2 HYPERLIPIDEMIA, MIXED 12/03/2009 VALDEZ DO, CAMERON K 401.9 HYPERTENSION, UNSPECIFIED ESSENTIAL 12/03/2009 VALDEZ DO, CAMERON K 530.81 GERD 12/03/2009 RUBÉN GOLDMAN APRN T 250.00 DIABETES MELLITUS TYPE 2 12/03/2009 RUBÉN GOLDMAN APRN 272.2 HYPERLIPIDEMIA, MIXED 12/03/2009 RUBÉN GOLDMAN APRN T 401.9 HYPERTENSION, UNSPECIFIED ESSENTIAL 12/03/2009 SUSI MÉNDEZ RUBÉN T 530.81 GERD 12/03/2009 BHAVANI RODRIGUEZ MD 250.00 DIABETES MELLITUS TYPE 2 12/03/2009 BHAVANI RODRIGUEZ MD 272.2 HYPERLIPIDEMIA, MIXED 12/03/2009 BHAVANI RODRIGUEZ MD 401.9 HYPERTENSION, UNSPECIFIED ESSENTIAL 12/03/2009 BHAVANI RODRIGUEZ MD 530.81 GERD 12/03/2009 VALDEZ DO, CAMERON K 250.00 DIABETES MELLITUS TYPE 2 12/03/2009 VALDEZ DO, CAMERON K 272.2 HYPERLIPIDEMIA, MIXED 12/03/2009 VALDEZ DO, CAMERON K 401.9 HYPERTENSION, UNSPECIFIED ESSENTIAL 12/03/2009 VALDEZ DO, CAMERON K 530.81 GERD 12/03/2009 WHITE DDS, JOSE D 250.00 DIABETES MELLITUS TYPE 2 12/03/2009 WHITE DDS, JOSE D 272.2 HYPERLIPIDEMIA, MIXED 12/03/2009 WHITE DDS, JOSE D 401.9 HYPERTENSION, UNSPECIFIED ESSENTIAL 12/03/2009 WHITE DDS, JOSE D 530.81 GERD 12/03/2009 VALDEZ DO, CAMERON K 250.00 DIABETES MELLITUS TYPE 2 12/03/2009 VALDEZ DO, CAMERON K 272.2 HYPERLIPIDEMIA, MIXED 12/03/2009 VALDEZ DO, CAMERON K 401.9 HYPERTENSION, UNSPECIFIED ESSENTIAL 12/03/2009 VALDEZ DO, CAMERON K 530.81 GERD 12/03/2009 WHITE DDS, JOSE D 250.00 DIABETES MELLITUS TYPE 2 12/03/2009 WHITE DDS, JOSE D 272.2 HYPERLIPIDEMIA, MIXED 12/03/2009 WHITE DDS, JOSE D 401.9 HYPERTENSION, UNSPECIFIED ESSENTIAL 12/03/2009 WHITE DDS, JOSE D 530.81 GERD 12/03/2009 ANOOP DEVELOPMENT MANAGER, JOSE A S 250.00 DIABETES MELLITUS TYPE 2 12/03/2009 ANOOP DEVELOPMENT MANAGER, JOSE A S 272.2 HYPERLIPIDEMIA, MIXED 12/03/2009 ANOOP DEVELOPMENT MANAGER, JOSE A S 401.9 HYPERTENSION, UNSPECIFIED ESSENTIAL 12/03/2009 ANOOP DEVELOPMENT MANAGER, JOSE A S 530.81 GERD 12/03/2009 VALDEZ DO, CAMERON K 250.00 DIABETES MELLITUS TYPE 2 12/03/2009 VALDEZ DO, CAMERON K 272.2 HYPERLIPIDEMIA, MIXED 12/03/2009 VALDEZ DO, CAMERON K 401.9 HYPERTENSION, UNSPECIFIED ESSENTIAL 12/03/2009 VALDEZ DO, CAMERON K 530.81 GERD 12/03/2009 WHITE DDS, DOT J 250.00 DIABETES MELLITUS TYPE 2 12/03/2009 WHITE DDS, DOT J 272.2 HYPERLIPIDEMIA, MIXED 12/03/2009 WHITE DDS, DOT J 401.9 HYPERTENSION, UNSPECIFIED ESSENTIAL 12/03/2009 WHITE DDS, DOT J 530.81 GERD 12/03/2009 BHAVANI RODRIGUEZ MD 250.00 DIABETES MELLITUS TYPE 2 12/03/2009 BHAVANI RODRIGUEZ MD 272.2 HYPERLIPIDEMIA, MIXED 12/03/2009 BHAVANI RODRIGUEZ MD 401.9 HYPERTENSION, UNSPECIFIED ESSENTIAL 12/03/2009 JENNIFER LONDON, BHAVANI 530.81 GERD 12/03/2009 BHAVANI RODRIGUEZ MD 250.00 DIABETES MELLITUS TYPE 2 12/03/2009 BHAVANI RODRIGUEZ MD 272.2 HYPERLIPIDEMIA, MIXED 12/03/2009 BHAVANI RODRIGUEZ MD 401.9 HYPERTENSION, UNSPECIFIED ESSENTIAL 12/03/2009 JENNIFER LONDON BHAVANI 530.81 GERD 12/03/2009 JENNIFER LONDON, BHAVANI 250.00 DIABETES MELLITUS TYPE 2 12/03/2009 JENNIFER LONDON, BHAVANI 272.2 HYPERLIPIDEMIA, MIXED 12/03/2009 JENNIFER LONDON, BHAVANI 401.9 HYPERTENSION, UNSPECIFIED ESSENTIAL 12/03/2009 JENNIFER LONDON, BHAVANI 530.81 GERD 12/03/2009 JENNIFER LONDON, BHAVANI 250.00 DIABETES MELLITUS TYPE 2 12/03/2009 JENNIFER LONDON, BHAVANI 272.2 HYPERLIPIDEMIA, MIXED 12/03/2009 JENNIFER LONDON, BHAVANI 401.9 HYPERTENSION, UNSPECIFIED ESSENTIAL 12/03/2009 JENNIFER LONDON, BHAVANI 530.81 GERD 12/03/2009 JENNIFER LONDON, BHAVANI 250.00 DIABETES MELLITUS TYPE 2 12/03/2009 JENNIFER LONDON, BHAVANI 272.2 HYPERLIPIDEMIA, MIXED 12/03/2009 JENNIFER LONDON, BHAVANI 401.9 HYPERTENSION, UNSPECIFIED ESSENTIAL 12/03/2009 JENNIFER LONDON, BHAVANI 530.81 GERD 12/03/2009 JENNIFER LONDON, BHAVANI 250.00 DIABETES MELLITUS TYPE 2 12/03/2009 JENNIFER LONDON, BHAVANI 272.2 HYPERLIPIDEMIA, MIXED 12/03/2009 JENNIFER LONDON, BHAVANI 401.9 HYPERTENSION, UNSPECIFIED ESSENTIAL 12/03/2009 JENNIFER LONDON, BHAVANI 530.81 GERD 12/03/2009 WHITE DDS, JOSE D 250.00 DIABETES MELLITUS TYPE 2 12/03/2009 WHITE DDS, JOSE D 272.2 HYPERLIPIDEMIA, MIXED 12/03/2009 WHITE DDS, JOSE D 401.9 HYPERTENSION, UNSPECIFIED ESSENTIAL 12/03/2009 WHITE DDS, JOSE D 530.81 GERD 01/14/2010 BHAVANI RODRIGUEZ MD 250.02 Diabetes Mellitus Poorly Controlled 01/14/2010 250.02 Diabetes Mellitus Poorly Controlled 01/14/2010 CAMERON VALDEZ DO K 250.02 Diabetes Mellitus Poorly Controlled 01/14/2010 CAMERON VALDEZ DO 250.02 Diabetes Mellitus Poorly Controlled 01/14/2010 RUBÉN GOLDMAN APRN 250.02 Diabetes Mellitus Poorly Controlled 01/14/2010 BHAVANI RODRIGUEZ MD 250.02 Diabetes Mellitus Poorly Controlled 01/14/2010 CAMERON VALDEZ DO K 250.02 Diabetes Mellitus Poorly Controlled 01/14/2010 WHITE DDS, JOSE D 250.02 Diabetes Mellitus Poorly Controlled 01/14/2010 VALDEZ DO, CAMERON K 250.02 Diabetes Mellitus Poorly Controlled 01/14/2010 JOSE REED DDS 250.02 Diabetes Mellitus Poorly Controlled 01/14/2010 JOSE A DAVALOS APRN 250.02 Diabetes Mellitus Poorly Controlled 01/14/2010 CHERELLE VALDEZ DOA K 250.02 Diabetes Mellitus Poorly Controlled 01/14/2010 DOT REED DDS 250.02 Diabetes Mellitus Poorly Controlled 01/14/2010 BHAVANI RODRIGUEZ MD 250.02 Diabetes Mellitus Poorly Controlled 01/14/2010 BHAVANI RODRIGUEZ MD 250.02 Diabetes Mellitus Poorly Controlled 01/14/2010 BHAVANI RODRIGUEZ MD 250.02 Diabetes Mellitus Poorly Controlled 01/14/2010 BHAVANI RODRIGUEZ MD 250.02 Diabetes Mellitus Poorly Controlled 01/14/2010 BHAVANI RODRIGUEZ MD 250.02 Diabetes Mellitus Poorly Controlled 01/14/2010 BHAVANI RODRIGUEZ MD 250.02 Diabetes Mellitus Poorly Controlled 01/14/2010 JOSE REED DDS 250.02 Diabetes Mellitus Poorly Controlled 04/07/2010 BHAVANI RODRIGUEZ MD 461.9 Sinusitis Acute 04/07/2010 461.9 Sinusitis Acute 04/07/2010 CAMERON VALDEZ DO K 461.9 Sinusitis Acute 04/07/2010 CHERELLE VALDEZ DOA K 461.9 Sinusitis Acute 04/07/2010 RUBÉN GOLDMAN APRN 461.9 Sinusitis Acute 04/07/2010 BHAVANI RODRIGUEZ MD 461.9 Sinusitis Acute 04/07/2010 VALDEZ CAMERON WILKINSON K 461.9 Sinusitis Acute 04/07/2010 JOSE REED DDS 461.9 Sinusitis Acute 04/07/2010 CAMERON VALDEZ DO K 461.9 Sinusitis Acute 04/07/2010 JOSE REED DDS 461.9 Sinusitis Acute 04/07/2010 JOSE A DAVALOS APRN 461.9 Sinusitis Acute 04/07/2010 VALDEZ CAMERON WILKINSON K 461.9 Sinusitis Acute 04/07/2010 DOT REED DDS 461.9 Sinusitis Acute 04/07/2010 BHAVANI RODRIGUEZ MD 461.9 Sinusitis Acute 04/07/2010 BHAVANI RODRIGUEZ MD 461.9 Sinusitis Acute 04/07/2010 BHAVANI RODRIGUEZ MD 461.9 Sinusitis Acute 04/07/2010 JENNIFER LONDON, BHAVANI 461.9 Sinusitis Acute 04/07/2010 BHAVANI RODRIGUEZ MD 461.9 Sinusitis Acute 04/07/2010 BHAVANI RODRIGUEZ MD 461.9 Sinusitis Acute 04/07/2010 JOSE REED DDS 461.9 Sinusitis Acute 04/18/2010 BHAVANI RODRIGUEZ MD 311 DEPRESSIVE DISORDER NOS 04/18/2010 311 DEPRESSIVE DISORDER NOS 04/18/2010 VALDEZ DO, CAMERON K 311 DEPRESSIVE DISORDER NOS 04/18/2010 VALDEZ DO, CAMERON K 311 DEPRESSIVE DISORDER NOS 04/18/2010 RUBÉN GOLDMAN APRN 311 DEPRESSIVE DISORDER NOS 04/18/2010 BHAVANI RODRIGUEZ MD 311 DEPRESSIVE DISORDER NOS 04/18/2010 VALDEZ DO, CAMERON K 311 DEPRESSIVE DISORDER NOS 04/18/2010 WHITE DONGSJOSE 311 DEPRESSIVE DISORDER NOS 04/18/2010 VALDEZ DO, CAMERON K 311 DEPRESSIVE DISORDER NOS 04/18/2010 WHITE DONGSJOSE 311 DEPRESSIVE DISORDER NOS 04/18/2010 JOSE A DAVALOS APRN 311 DEPRESSIVE DISORDER NOS 04/18/2010 VALDEZ DO, CAMERON K 311 DEPRESSIVE DISORDER NOS 04/18/2010 DOT REED DDS 311 DEPRESSIVE DISORDER NOS 04/18/2010 JENNIFER LONDON, BHAVANI 311 DEPRESSIVE DISORDER NOS 04/18/2010 JENNIFER LONDON, BHAVANI 311 DEPRESSIVE DISORDER NOS 04/18/2010 JNENIFER LONDON, BHAVANI 311 DEPRESSIVE DISORDER NOS 04/18/2010 JENNIFER LONDON, BHAVANI 311 DEPRESSIVE DISORDER NOS 04/18/2010 JENNIFER LONDON, BHAVANI 311 DEPRESSIVE DISORDER NOS 04/18/2010 JENNIFER LONDON, BHAVANI 311 DEPRESSIVE DISORDER NOS 04/18/2010 WHITE DONGSJOSE 311 DEPRESSIVE DISORDER NOS 02/06/2011 BHAVANI RODRIGUEZ MD 784.0 Headache 02/06/2011 784.0 Headache 02/06/2011 VALDEZ DO, CAMERON K 784.0 Headache 02/06/2011 VALDEZ DO, CAMERON K 784.0 Headache 02/06/2011 RUBÉN GOLDMAN APRN 784.0 Headache 02/06/2011 BHAVANI RODRIGUEZ MD 784.0 Headache 02/06/2011 VALDEZ DO, CAMERON K 784.0 Headache 02/06/2011 WHITE DONGSJOSE 784.0 Headache 02/06/2011 VALDEZ DO, CAMERON K 784.0 Headache 02/06/2011 WHITE DDS, JOSE Craven 784.0 Headache 02/06/2011 JOSE A DAVALOS APRN 784.0 Headache 02/06/2011 VALDEZ DO, CAMERON K 784.0 Headache 02/06/2011 WHITE DDS, DOT Botello 784.0 Headache 02/06/2011 JENNIFER LONDON, BHAVANI 784.0 Headache 02/06/2011 JENNIFER LONDON, BHAVANI 784.0 Headache 02/06/2011 JENNIFER LONDON, BHAVANI 784.0 Headache 02/06/2011 JENNIFER LONDON, BHAVANI 784.0 Headache 02/06/2011 JENNIFER LONDON, BHAVANI 784.0 Headache 02/06/2011 JENNIFER LONDON, BHAVANI 784.0 Headache 02/06/2011 WHITE DDS, JOSE Craven 784.0 Headache 03/06/2011 BHAVANI RODRIGUEZ MD 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 03/06/2011 436 ACUTE BUT ILL- DEFINED CEREBROVASCULAR DISEASE 03/06/2011 COURTNEY WILKINSON CAMERON K 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 03/06/2011 COURTNEY WILKINSON CAMERON K 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 03/06/2011 RUBÉN GOLDMAN APRN 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 03/06/2011 BHAVANI RODRIGUEZ MD 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 03/06/2011 COURTNEY WILKINSON CAMERON K 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 03/06/2011 JOSE REED DDS 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 03/06/2011 COURTNEY WILKINSON CAMERON K 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 03/06/2011 DEREK UMANASJOSE 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 03/06/2011 JOSE A DAVALOS APRN S 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 03/06/2011 COURTNEY WILKINSON CAMERON K 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 03/06/2011 DEREK UMANASDOT 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 03/06/2011 BHAVANI RODRIGUEZ MD 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 03/06/2011 BHAVANI RODRIGUEZ MD 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 03/06/2011 BHAVANI RODRIGUEZ MD 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 03/06/2011 BHAVANI RODRIGUEZ MD ACUTE BUT ILL-DEFINED CEREBROVASCULAR DISEASE 03/06/2011 BHAVANI RODRIGUEZ MD 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 03/06/2011 BHAVANI RODRIGUEZ MD 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 03/06/2011 JOSE REED DDS 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 05/11/2011 BHAVANI RODRIGUEZ MD 787.20 Dysphagia Unspecified 05/11/2011 787.20 Dysphagia Unspecified 05/11/2011 VALDEZ DO, CAMERON K 787.20 Dysphagia Unspecified 05/11/2011 VALDEZ DO, CAMERON K 787.20 Dysphagia Unspecified 05/11/2011 RUBÉN GOLDMAN APRN 787.20 Dysphagia Unspecified 05/11/2011 BHAVANI RODRIGUEZ MD 787.20 Dysphagia Unspecified 05/11/2011 VALDEZ DO, CAMERON K 787.20 Dysphagia Unspecified 05/11/2011 JOSE REED DDS 787.20 Dysphagia Unspecified 05/11/2011 VALDEZ DO, CAMERON K 787.20 Dysphagia Unspecified 05/11/2011 JOSE REED DDS 787.20 Dysphagia Unspecified 05/11/2011 JOSE A DAVALOS APRN 787.20 Dysphagia Unspecified 05/11/2011 VALDEZ DO, CAMERON K 787.20 Dysphagia Unspecified 05/11/2011 DOT REED DDS 787.20 Dysphagia Unspecified 05/11/2011 BHAVANI RODRIGUEZ MD 787.20 Dysphagia Unspecified 05/11/2011 BHAVANI RODRIGUEZ MD 787.20 Dysphagia Unspecified 05/11/2011 BHAVANI RODRIGUEZ MD 787.20 Dysphagia Unspecified 05/11/2011 BHAVANI RODRIGUEZ MD 787.20 Dysphagia Unspecified 05/11/2011 BHAVANI RODRIGUEZ MD 787.20 Dysphagia Unspecified 05/11/2011 BHAVANI RODRIGUEZ MD 787.20 Dysphagia Unspecified 05/11/2011 JOSE REED DDS 787.20 Dysphagia Unspecified 12/10/2011 BHAVANI RODRIGUEZ MD 110.1 ONYCHOMYCOSIS 12/10/2011 110.1 ONYCHOMYCOSIS 12/10/2011 VALDEZ DO, CAMERON K 110.1 ONYCHOMYCOSIS 12/10/2011 VALDEZ DO, CAMERON K 110.1 ONYCHOMYCOSIS 12/10/2011 RUBÉN GOLDMAN APRN 110.1 ONYCHOMYCOSIS 12/10/2011 BHAVANI RODRIGUEZ MD 110.1 ONYCHOMYCOSIS 12/10/2011 VALDEZ DO, CAMERON K 110.1 ONYCHOMYCOSIS 12/10/2011 WHITE DDS, JOSE D 110.1 ONYCHOMYCOSIS 12/10/2011 VALDEZ DO, CAMERON K 110.1 ONYCHOMYCOSIS 12/10/2011 WHITE DDS, JOSE D 110.1 ONYCHOMYCOSIS 12/10/2011 ANOOP MÉNDEZ, JOSE A Shabazz 110.1 ONYCHOMYCOSIS 12/10/2011 VALDEZ DO, CAMERON K 110.1 ONYCHOMYCOSIS 12/10/2011 DEREK UMANAS, DOT Botello 110.1 ONYCHOMYCOSIS 12/10/2011 JENNIFER LONDON, BHAVANI 110.1 ONYCHOMYCOSIS 12/10/2011 JENNIFER LONDON, BHAVANI 110.1 ONYCHOMYCOSIS 12/10/2011 JENNIFER LONDON, BHAVANI 110.1 ONYCHOMYCOSIS 12/10/2011 JENNIFER LONDON, BHAVANI 110.1 ONYCHOMYCOSIS 12/10/2011 JENNIFER LONDON, BHAVANI 110.1 ONYCHOMYCOSIS 12/10/2011 JENNIFER LONDON, BHAVANI 110.1 ONYCHOMYCOSIS 12/10/2011 DEREK GANDHI, JOSE Craven 110.1 ONYCHOMYCOSIS 01/05/2012 BHAVANI RODRIGUEZ MD V04.81 FLU DX (3 YRS AND ABOVE, IM) 01/05/2012 V04.81 FLU DX (3 YRS AND ABOVE, IM) 01/05/2012 VALDEZ DOCHERELLEA K V04.81 FLU DX (3 YRS AND ABOVE, IM) 01/05/2012 VALDEZ DO, CAMERON K V04.81 FLU DX (3 YRS AND ABOVE, IM) 01/05/2012 RUBÉN GOLDMAN APRN V04.81 FLU DX (3 YRS AND ABOVE, IM) 01/05/2012 BHAVANI RODRIGUEZ MD V04.81 FLU DX (3 YRS AND ABOVE, IM) 01/05/2012 VALDEZ DO, CAMERON K V04.81 FLU DX (3 YRS AND ABOVE, IM) 01/05/2012 DEREK UMANAS, JOSE Craven V04.81 FLU DX (3 YRS AND ABOVE, IM) 01/05/2012 VALDEZ DO, CAMERON K V04.81 FLU DX (3 YRS AND ABOVE, IM) 01/05/2012 JOSE REED DDS V04.81 FLU DX (3 YRS AND ABOVE, IM) 01/05/2012 JOSE A DAVALOS APRN V04.81 FLU DX (3 YRS AND ABOVE, IM) 01/05/2012 CAMERON VALDEZ DO V04.81 FLU DX (3 YRS AND ABOVE, IM) 01/05/2012 DOT REED DDS V04.81 FLU DX (3 YRS AND ABOVE, IM) 01/05/2012 BHAVANI RODRIGUEZ MD V04.81 FLU DX (3 YRS AND ABOVE, IM) 01/05/2012 BHAVANI RODRIGUEZ MD V04.81 FLU DX (3 YRS AND ABOVE, IM) 01/05/2012 BHAVANI RODRIGUEZ MD V04.81 FLU DX (3 YRS AND ABOVE, IM) 01/05/2012 BHAVANI RODRIGUEZ MD V04.81 FLU DX (3 YRS AND ABOVE, IM) 01/05/2012 BHAVANI RODRIGUEZ MD V04.81 FLU DX (3 YRS AND ABOVE, IM) 01/05/2012 BHAVANI RODRIGUEZ MD V04.81 FLU DX (3 YRS AND ABOVE, IM) 01/05/2012 JOSE REED DDS V04.81 FLU DX (3 YRS AND ABOVE, IM) 07/04/2012 719.41 PAIN IN JOINT INVOLVING SHOULDER REGION 07/04/2012 CAMERON VALDEZ DO 719.41 PAIN IN JOINT INVOLVING SHOULDER REGION 07/04/2012 CAMERON VALDEZ DO 719.41 PAIN IN JOINT INVOLVING SHOULDER REGION 07/04/2012 RUBÉN GOLDMAN APRN 719.41 PAIN IN JOINT INVOLVING SHOULDER REGION 07/04/2012 BHAVANI RODRIGUEZ MD 719.41 PAIN IN JOINT INVOLVING SHOULDER REGION 07/04/2012 CAMERON VALDEZ DO 719.41 PAIN IN JOINT INVOLVING SHOULDER REGION 07/04/2012 JOSE REED DDS 719.41 PAIN IN JOINT INVOLVING SHOULDER REGION 07/04/2012 CAMERON VALDEZ DO 719.41 PAIN IN JOINT INVOLVING SHOULDER REGION 07/04/2012 JOSE REED DDS 719.41 PAIN IN JOINT INVOLVING SHOULDER REGION 07/04/2012 CAMERON VALDEZ DO 719.41 PAIN IN JOINT INVOLVING SHOULDER REGION 07/04/2012 DOT REED DDS 719.41 PAIN IN JOINT INVOLVING SHOULDER REGION 07/04/2012 BHAVANI RODRIGUEZ MD 719.41 PAIN IN JOINT INVOLVING SHOULDER REGION 07/04/2012 BHAVANI RODRIGUEZ MD 71Júnior.41 PAIN IN JOINT INVOLVING SHOULDER REGION 07/04/2012 BHAVANI RODRIGUEZ MD 719.41 PAIN IN JOINT INVOLVING SHOULDER REGION 07/04/2012 BHAVANI RODRIGUEZ MD 71Júnior.41 PAIN IN JOINT INVOLVING SHOULDER REGION 07/04/2012 BHAVANI RODRIGUEZ MD.41 PAIN IN JOINT INVOLVING SHOULDER REGION 07/04/2012 BHAVANI RODRIGUEZ MD.41 PAIN IN JOINT INVOLVING SHOULDER REGION 07/04/2012 JOSE REED DDS 719.41 PAIN IN JOINT INVOLVING SHOULDER REGION 11/03/2012 CAMERON VALDEZ DO 726.19 OTHER SPECIFIED DISORDERS OF BURSAE AND TENDONS IN SHOULDER REGION 11/03/2012 CAMERON VALDEZ DO 726.19 OTHER SPECIFIED DISORDERS OF BURSAE AND TENDONS IN SHOULDER REGION 11/03/2012 RUBÉN GOLDMAN APRN 726.19 OTHER SPECIFIED DISORDERS OF BURSAE AND TENDONS IN SHOULDER REGION 11/03/2012 BHAVANI RODRIGUEZ MD 726.19 OTHER SPECIFIED DISORDERS OF BURSAE AND TENDONS IN SHOULDER REGION 11/03/2012 CAMERON VALDEZ DO 726.19 OTHER SPECIFIED DISORDERS OF BURSAE AND TENDONS IN SHOULDER REGION 11/03/2012 JOSE REED DDS 726.19 OTHER SPECIFIED DISORDERS OF BURSAE AND TENDONS IN SHOULDER REGION 11/03/2012 CAMERON VALDEZ DO 726.19 OTHER SPECIFIED DISORDERS OF BURSAE AND TENDONS IN SHOULDER REGION 11/03/2012 JOSE REED DDS 726.19 OTHER SPECIFIED DISORDERS OF BURSAE AND TENDONS IN SHOULDER REGION 11/03/2012 CAMERON VALDEZ DO 726.19 OTHER SPECIFIED DISORDERS OF BURSAE AND TENDONS IN SHOULDER REGION 11/03/2012 DOT REED DDS 726.19 OTHER SPECIFIED DISORDERS OF BURSAE AND TENDONS IN SHOULDER REGION 11/03/2012 BHAVANI RODRIGUEZ MD 726.19 OTHER SPECIFIED DISORDERS OF BURSAE AND TENDONS IN SHOULDER REGION 11/03/2012 BHAVANI RODRIGUEZ MD 726.19 OTHER SPECIFIED DISORDERS OF BURSAE AND TENDONS IN SHOULDER REGION 11/03/2012 BHAVANI RODRIGUEZ MD 726.19 OTHER SPECIFIED DISORDERS OF BURSAE AND TENDONS IN SHOULDER REGION 11/03/2012 BHAVANI RODRIGUEZ MD 726.19 OTHER SPECIFIED DISORDERS OF BURSAE AND TENDONS IN SHOULDER REGION 11/03/2012 BHAVANI RODRIGUEZ MD 726.19 OTHER SPECIFIED DISORDERS OF BURSAE AND TENDONS IN SHOULDER REGION 11/03/2012 BHAVANI RODRIGUEZ MD 726.19 OTHER SPECIFIED DISORDERS OF BURSAE AND TENDONS IN SHOULDER REGION 11/03/2012 JOSE REED DDS 726.19 OTHER SPECIFIED DISORDERS OF BURSAE AND TENDONS IN SHOULDER REGION 01/19/2013 XIOMY ALBERTO NURSES ASSISTANT Ot 726.2 SHOULDER REGION DIS NEC 01/19/2013 XIOMY ALBERTO NURSES ASSISTANT Ot V57.1 PHYSICAL THERAPY NEC 08/10/2013 CAMERON VALDEZ DO 726.10 DISORDERS OF BURSAE AND TENDONS IN SHOULDER REGION UNSPECIFIED 08/10/2013 DOT REED DDS 726.10 DISORDERS OF BURSAE AND TENDONS IN SHOULDER REGION UNSPECIFIED 08/10/2013 BHAVANI RODRIGUEZ MD 726.10 DISORDERS OF BURSAE AND TENDONS IN SHOULDER REGION UNSPECIFIED 08/10/2013 BHAVANI RODRIGUEZ MD 726.10 DISORDERS OF BURSAE AND TENDONS IN SHOULDER REGION UNSPECIFIED 08/10/2013 BHAVANI RODRIGUEZ MD 726.10 DISORDERS OF BURSAE AND TENDONS IN SHOULDER REGION UNSPECIFIED 08/10/2013 BHAVANI RODRIGUEZ MD 726.10 DISORDERS OF BURSAE AND TENDONS IN SHOULDER REGION UNSPECIFIED 08/10/2013 BHAVANI RODRIGUEZ MD 726.10 DISORDERS OF BURSAE AND TENDONS IN SHOULDER REGION UNSPECIFIED 08/10/2013 BHAVANI RODRIGUEZ MD 726.10 DISORDERS OF BURSAE AND TENDONS IN SHOULDER REGION UNSPECIFIED 08/10/2013 JOSE REED DDS 726.10 DISORDERS OF BURSAE AND TENDONS IN SHOULDER REGION UNSPECIFIED 09/14/2013 BHAVANI RODRIGUEZ MD 558.9 OTHER AND UNSPECIFIED NONINFECTIOUS GASTROENTERITIS AND COLITIS 09/14/2013 BHAVANI RODRIGUEZ MD.9 OTHER AND UNSPECIFIED NONINFECTIOUS GASTROENTERITIS AND COLITIS 09/14/2013 BHAVANI RODRIGUEZ MD8.9 OTHER AND UNSPECIFIED NONINFECTIOUS GASTROENTERITIS AND COLITIS 09/14/2013 BHAVANI RODRIGUEZ MD8.9 OTHER AND UNSPECIFIED NONINFECTIOUS GASTROENTERITIS AND COLITIS 09/14/2013 BHAVANI RODRIGUEZ MD8.9 OTHER AND UNSPECIFIED NONINFECTIOUS GASTROENTERITIS AND COLITIS 09/14/2013 WHITE DDS, JOSE D 558.9 OTHER AND UNSPECIFIED NONINFECTIOUS GASTROENTERITIS AND COLITIS 12/27/2013 LIDYA STARR MD Ot 250.00 DIAB RICKY WO COMPL, TYPE II OR UNSPEC TY 12/27/2013 LIDYA STARR MD Ot 278.01 MORBID OBESITY 12/27/2013 LIDYA STARR MD Ot 401.9 HYPERTENSION NOS 12/27/2013 LIDYA STARR MD Ot 530.81 ESOPHAGEAL REFLUX 12/27/2013 LIDYA STARR MD Ot 726.2 SHOULDER REGION DIS NEC 12/27/2013 LIDYA STARR MD Ot 840.7 (SLAP) SUPERIOR GLENOID LABRUM LESIONS 12/27/2013 LIDYA STARR MD Ot V12.54 PERSONAL HX OF TIA, CEREBRAL INFARCTION 03/05/2014 XIOMY ALBERTO NURSES ASSISTANT Ot 715.31 03/05/2014 XIOMY ALBERTO NURSES ASSISTANT Ot 719.41 03/05/2014 XIOMY ALBERTO NURSES ASSISTANT Ot 726.10 03/05/2014 XIOMY ALBERTO NURSES ASSISTANT Ot V15.88 03/12/2014 XIOMY ALBERTO NURSES ASSISTANT Ot V57.1 03/12/2014 XIOMY ALBERTO NURSES ASSISTANT Ot V58.49 03/28/2014 XIOMY ALBERTO NURSES ASSISTANT Ot V57.1 PHYSICAL THERAPY NEC 03/28/2014 XIOMY ALBERTO NURSES ASSISTANT Ot V58.49 OTHER SPECIFIED AFTERCARE FOLLOWING SURG 04/25/2014 XIOMY ALBERTO NURSES ASSISTANT Ot V57.1 04/25/2014 XIOMY ALBERTO NURSES ASSISTANT Ot V58.49 09/13/2014 KASEY MEDINA MD Ot 434.91 CEREBRAL ART OCCLUSION NOS W CEREBRAL IN 09/13/2014 KASEY MEDINA MD Ot 593.9 RENAL URETERAL DIS NOS 09/13/2014 KASEY MEDINA MD Ot 784.3 APHASIA 09/13/2014 KASEY MEDINA MD Ot 786.07 WHEEZING 09/13/2014 KASEY MEDINA MD Ot V58.61 [employer]TICO[employer]ULANTS,LT,CURRENT USE 09/13/2014 KASEY MEDINA MD, Ot V58.69 [facility],,CURRENT USE 09/25/2014 VIRY LONDON, BELL E Ot 250.00 09/25/2014 VIRY LONDON, BELL E Ot 272.4 09/25/2014 VIRY LONDON, BELL E Ot 278.00 09/25/2014 VIRY LONDON, BELL E Ot 311 09/25/2014 VIRY LONDON, BELL E Ot 401.9 09/25/2014 VIRY LONDON, BELL E Ot 438.13 09/25/2014 VIRY LONDON, BELL E Ot 438.20 09/25/2014 VIRY LONDON, BELL E Ot 438.82 09/25/2014 VIRY LONDON, BELL E Ot 438.89 09/25/2014 VIRY LONDON, BELL E Ot 781.2 09/25/2014 VIRY LONDON, BELL E Ot 786.09 09/25/2014 VIRY LONDON, BELL E Ot 787.22 09/25/2014 VIRY LONDON, BELL E Ot 934.1 09/25/2014 VIRY LONDON, BELL E Ot E912 09/25/2014 VIRY LONDON, BELL E Ot V44.1 09/25/2014 VIRY LONDON, BELL E Ot V46.2 09/25/2014 VIRY LONDON, BELL E Ot V57.89 09/25/2014 VIRY LONDON, BELL E Ot V85.38 09/28/2014 VIRY LONDON, BELL E Ot 250.00 09/28/2014 VIRY LONDON, BELL E Ot 272.4 09/28/2014 VIRY LONDON, BELL E Ot 278.00 09/28/2014 VIRY LONDON, BELL E Ot 311 09/28/2014 VIRY LONDON, BELL E Ot 401.9 09/28/2014 VIRY LONDON, BELL E Ot 438.13 09/28/2014 VIRY LONDON, BELL E Ot 438.20 09/28/2014 VIRY LONDON, BELL E Ot 438.82 09/28/2014 VIRY LONDON, BELL E Ot 438.89 09/28/2014 VIRY LONDON, BELL E Ot 781.2 09/28/2014 VIRY LONDON, BELL E Ot 786.09 09/28/2014 VIRY LONDON, BELL E Ot 787.22 09/28/2014 VIRY LONDON, BELL E Ot 934.1 09/28/2014 VIRY LONDON, BELL E Ot E912 09/28/2014 VIRY LONDON, BELL E Ot V44.1 09/28/2014 VIRY LONDON, BELL E Ot V46.2 09/28/2014 VIRY LONDON, BELL E Ot V57.89 09/28/2014 VIRY LONDON, BELL E Ot V85.38 10/04/2014 VIRY LONDON, BELL E Ot 250.00 10/04/2014 VIRY LONDON, BELL E Ot 272.4 10/04/2014 VIRY LONDON, BELL E Ot 278.00 10/04/2014 VIRY LONDON, BELL E Ot 311 10/04/2014 VIRY LONDON, BELL E Ot 401.9 10/04/2014 VIRY LONDON, BELL E Ot 438.13 10/04/2014 VIRY LONDON, BELL E Ot 438.20 10/04/2014 VIRY LONDON, BELL E Ot 438.82 10/04/2014 VIRY LONDON, BELL E Ot 438.89 10/04/2014 VIRY LONDON, BELL E Ot 781.2 10/04/2014 VIRY LONDON, BELL E Ot 786.09 10/04/2014 VIRY LONDON, BELL E Ot 787.22 10/04/2014 VIRY LONDON, BELL E Ot 934.1 10/04/2014 VIRY LONDON, BELL E Ot E912 10/04/2014 VIRY LONDON, BELL E Ot V44.1 10/04/2014 VIRY LONDON, BELL E Ot V46.2 10/04/2014 VIRY LONDON, BELL E Ot V57.89 10/04/2014 VIRY LONDON, BELL E Ot V85.38 10/05/2014 VIRY LONDON, BELL E Ot 250.00 10/05/2014 VIRY LONDON, BELL E Ot 272.4 10/05/2014 VIRY LONDON, BELL E Ot 278.00 10/05/2014 VIYR LONDON, BELL E Ot 311 10/05/2014 VIRY LONDON, BELL E Ot 401.9 10/05/2014 VIRY LONDON, BELL E Ot 438.13 10/05/2014 VIRY LONDON, BELL E Ot 438.20 10/05/2014 VIRY LONDON, BELL E Ot 438.82 10/05/2014 VIRY LONDON, BELL E Ot 438.89 10/05/2014 VIRY LONDON, BELL E Ot 781.2 10/05/2014 VIRY LONDON, BELL E Ot 786.09 10/05/2014 VIRY LONDON, BELL E Ot 787.22 10/05/2014 VIRY LONDON, BELL E Ot 934.1 10/05/2014 VIRY LONDON, BELL E Ot E912 10/05/2014 VIRY LONDON, BELL E Ot V44.1 10/05/2014 VIRY LONDON, BELL E Ot V46.2 10/05/2014 VIRY LONDON, BELL E Ot V57.89 10/05/2014 VIRY LONDON, BELL E Ot V85.38 10/07/2014 VIRY LONDON, BELL E Ot 250.00 10/07/2014 VIRY LONDON, BELL E Ot 272.4 10/07/2014 IVRY LONDON, BELL E Ot 278.00 10/07/2014 VIRY LONDON, BELL E Ot 311 10/07/2014 VIRY LONDON, BELL E Ot 401.9 10/07/2014 VIRY LONDON, BELL E Ot 438.13 10/07/2014 VIRY LONDON, BELL E Ot 438.20 10/07/2014 VIRY LONDON, BELL E Ot 438.82 10/07/2014 VIRY LONDON, BELL E Ot 438.89 10/07/2014 VIRY LONDON, BELL E Ot 781.2 10/07/2014 VIRY LONDON, BELL E Ot 786.09 10/07/2014 VIRY LONDON, BELL E Ot 787.22 10/07/2014 VIRY LONDON, BELL E Ot 934.1 10/07/2014 VIRY LONDON, BELL E Ot E912 10/07/2014 VIRY LONDON, BELL E Ot V44.1 10/07/2014 VIRY LONDON, BELL E Ot V46.2 10/07/2014 VIRY LONDON, BELL E Ot V57.89 10/07/2014 VIRY LONDON, BELL E Ot V85.38 10/07/2014 VIRY LONDON, BELL E Ot 250.00 10/07/2014 VIRY LONDON, BELL E Ot 272.4 10/07/2014 VIRY LONDON, BELL E Ot 278.00 10/07/2014 VIRY LONDON, BELL E Ot 311 10/07/2014 VIRY LONDON, BELL E Ot 401.9 10/07/2014 VIRY LONDON, BELL E Ot 438.13 10/07/2014 VIRY LONDON, BELL E Ot 438.20 10/07/2014 VIRY LONDON, BELL E Ot 438.82 10/07/2014 VIRY LONDON, BLEL E Ot 438.89 10/07/2014 VIRY LONDON, BELL E Ot 781.2 10/07/2014 VIRY LONDON, BELL E Ot 786.09 10/07/2014 VIRY LONDON, BELL E Ot 787.22 10/07/2014 VIRY LONDON, BELL E Ot 934.1 10/07/2014 VIRY LONDON, BELL E Ot E912 10/07/2014 VIRY LONDON, BELL E Ot V44.1 10/07/2014 VIRY LONDON, BELL E Ot V46.2 10/07/2014 VIRY LONDON, BELL E Ot V57.89 10/07/2014 VIRY LONDON, BELL E Ot V85.38 10/07/2014 VIRY LONDON, BELL E Ot 250.00 10/07/2014 VIRY LONDON, BELL E Ot 272.4 10/07/2014 VIRY LONDON, BELL E Ot 278.00 10/07/2014 VIRY LONDON, BELL E Ot 311 10/07/2014 VIRY LONDON, BELL E Ot 401.9 10/07/2014 VIRY LONDON, BELL E Ot 438.13 10/07/2014 VIRY LONDON, BELL E Ot 438.20 10/07/2014 VIRY LONDON, BELL E Ot 438.82 10/07/2014 VIRY LONDON, BELL E Ot 438.89 10/07/2014 VIRY LONDON, BELL E Ot 781.2 10/07/2014 VIRY LONDON, BELL E Ot 786.09 10/07/2014 VIRY LONDON, BELL E Ot 787.22 10/07/2014 VIRY LONDON, BELL E Ot 934.1 10/07/2014 VIRY LONDON, BELL E Ot E912 10/07/2014 VIRY LONDON, BELL E Ot V44.1 10/07/2014 VIRY LONDON, BELL E Ot V46.2 10/07/2014 VIRY LONDON, BELL E Ot V57.89 10/07/2014 VIRY LONDON, BELL E Ot V85.38 10/09/2014 VIRY LONDON, BELL E Ot 250.00 10/09/2014 VIRY LONDON, BELL E Ot 272.4 10/09/2014 VIRY LONDON, BELL E Ot 278.00 10/09/2014 VIRY LONDON, BELL E Ot 311 10/09/2014 VIRY LONDON, BELL E Ot 401.9 10/09/2014 VIRY LONDON, BELL E Ot 438.13 10/09/2014 VIRY LONDON, BELL E Ot 438.20 10/09/2014 VIRY LONDON, BELL E Ot 438.82 10/09/2014 VIRY LONDON, BELL E Ot 438.89 10/09/2014 VIRY LONDON, BELL E Ot 781.2 10/09/2014 VIRY LONDON, BELL E Ot 786.09 10/09/2014 VIRY LONDON, BELL E Ot 787.22 10/09/2014 VIRY LONDON, BELL E Ot 934.1 10/09/2014 VIRY LONDON, BELL E Ot E912 10/09/2014 VIRY LONDON, BELL E Ot V44.1 10/09/2014 VIRY LONDON, BELL E Ot V46.2 10/09/2014 VIRY LONDON, BELL E Ot V57.89 10/09/2014 VIRY LONDON, BELL E Ot V85.38 10/09/2014 VIRY LONDON, BELL E Ot 250.00 10/09/2014 VIRY LONDON, BELL E Ot 272.4 10/09/2014 VIRY LONDON, BELL E Ot 278.00 10/09/2014 VIRY LONDON, BELL E Ot 311 10/09/2014 VIRY LONDON, BELL E Ot 401.9 10/09/2014 VIRY LONDON, BELL E Ot 438.13 10/09/2014 VIRY LONDON, BELL E Ot 438.20 10/09/2014 VIRY LONDON, BELL E Ot 438.82 10/09/2014 VIRY LONDON, BELL E Ot 438.89 10/09/2014 VIRY LONDON, BELL E Ot 781.2 10/09/2014 VIRY LONDON, BELL E Ot 786.09 10/09/2014 VIRY LONDON, BELL E Ot 787.22 10/09/2014 VIRY LONDON, BELL E Ot 934.1 10/09/2014 VIRY LONDON, BELL E Ot E912 10/09/2014 VIRY LONDON, BELL E Ot V44.1 10/09/2014 VIRY LONDON, BELL E Ot V46.2 10/09/2014 VIRY LONDON, BELL E Ot V57.89 10/09/2014 VIRY LONDON, BELL E Ot V85.38 10/12/2014 VIRY LONDON, BELL E Ot 250.00 10/12/2014 VIRY LONDON, BELL E Ot 272.4 10/12/2014 VIRY LONDON, BELL E Ot 278.00 10/12/2014 VIRY LONDON, BELL E Ot 311 10/12/2014 VIRY LONDON, BELL E Ot 401.9 10/12/2014 VIRY LONDON, BELL E Ot 438.13 10/12/2014 VIRY LONDON, BELL E Ot 438.20 10/12/2014 VIRY LONDON, BELL E Ot 438.82 10/12/2014 VIRY LONDON, BELL E Ot 438.89 10/12/2014 VIRY LONDON, BELL E Ot 781.2 10/12/2014 VIRY LONDON, BELL E Ot 786.09 10/12/2014 VIRY LONDON, BELL E Ot 787.22 10/12/2014 VIRY LONDON, BELL E Ot 934.1 10/12/2014 VIRY LONDON, BELL E Ot E912 10/12/2014 VIRY LONDON, BELL E Ot V44.1 10/12/2014 VIRY LONDON, BELL E Ot V46.2 10/12/2014 VIRY LONDON, BELL E Ot V57.89 10/12/2014 VIRY LONDON, BELL E Ot V85.38 10/19/2014 VIRY LONDON, BELL E Ot 250.00 10/19/2014 VIRY LONDON, BELL E Ot 272.4 10/19/2014 VIRY LONDON, BELL E Ot 278.00 10/19/2014 VIRY LONDON, BELL E Ot 311 10/19/2014 VIRY LONDON, BELL E Ot 401.9 10/19/2014 VIRY LONDON, BELL E Ot 438.13 10/19/2014 VIRY LONDON, BELL E Ot 438.20 10/19/2014 VIRY LONDON, BELL E Ot 438.82 10/19/2014 VIRY LONDON, BELL E Ot 438.89 10/19/2014 VIRY LONDON, BELL E Ot 781.2 10/19/2014 VIRY LONDON, BELL E Ot 786.09 10/19/2014 VIRY LONDON, BELL E Ot 787.22 10/19/2014 VIRY LONDON, BELL E Ot 934.1 10/19/2014 VIRY LONDON, BELL E Ot E912 10/19/2014 VIRY LONDON, BELL E Ot V44.1 10/19/2014 VIRY LONDON, BELL E Ot V46.2 10/19/2014 VIRY LONDON BELL E Ot V57.89 10/19/2014 VIRY LONDON BELL E Ot V85.38 10/24/2014 VIRY LONDON BELL E Ot 250.00 DIAB RICKY WO COMPL, TYPE II OR UNSPEC TY 10/24/2014 BELL BAIRES MD E Ot 272.4 HYPERLIPIDEMIA NEC/NOS 10/24/2014 BELL BAIRES MD E Ot 275.42 HYPERCALCEMIA 10/24/2014 VINAYAK BAIRES MDIC E Ot 278.00 OBESITY, NOS 10/24/2014 VIRY LONDON BELL E Ot 311 DEPRESSIVE DISORDER NEC 10/24/2014 BELL BAIRES MD E Ot 401.9 HYPERTENSION NOS 10/24/2014 VIRY LONDON BELL E Ot 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, 10/24/2014 BELL BAIRES MD E Ot 438.20 LATE EFF-CEREBR DIS,HEMIPLEGIA AFFECTING 10/24/2014 BELL BAIRES MD E Ot 438.82 OTH LATE EFF-CEREB DIS, DYSPHAGIA 10/24/2014 VIRY LONDON BELL E Ot 438.89 OTH LATE EFFECT-CEREBROVASCULAR DISEASE 10/24/2014 VIRY LONDON BELL E Ot 781.2 ABNORMALITY OF GAIT 10/24/2014 VIRY LONDON BELL E Ot 786.09 RESPIRATORY ABNORM NEC 10/24/2014 VIRY LONDON BELL E Ot 787.22 DYSPHAGIA, OROPHARYNGEAL PHASE 10/24/2014 VIRY LONDON BELL E Ot 934.1 FOREIGN BODY BRONCHUS 10/24/2014 VIRY LONDON BELL E Ot E912 RESP OBSTR-INHAL OBJ NEC 10/24/2014 BELL BAIRES MD E Ot V44.1 GASTROSTOMY STATUS 10/24/2014 VINAYAK BAIRES MDIC E Ot V46.2 SUPPLEMENTAL OXYGEN 10/24/2014 VIRY LONDON BELL E Ot V57.89 REHABILITATION PROC NEC 10/24/2014 VIRY LONDON BELL E Ot V85.38 BODY MASS INDEX 38.0-38.9, ADULT 11/29/2014 BHAVANI RODRIGUEZ MD Ot 250.00 DIAB RICKY WO COMPL, TYPE II OR UNSPEC TY 11/29/2014 BHAVANI RODRIGUEZ MD Ot 300.00 ANXIETY STATE NOS 11/29/2014 BHAVANI RODRIGUEZ MD Ot 305.1 TOBACCO USE DISORDER 11/29/2014 BHAVANI RODRIGUEZ MD Ot 311 DEPRESSIVE DISORDER NEC 11/29/2014 JENNIFER LONDON, BHAVANI Del Real Ot 356.9 IDIO PERIPH NEURPTHY NOS 11/29/2014 JENNIFER LONDON, BHAVANI Del Real Ot 401.9 HYPERTENSION NOS 11/29/2014 JENNIFER LONDON, BHAVANI Del Real Ot 414.01 CORONARY ATHEROSCLEROSIS OF [place] CORON 11/29/2014 JENNIFER LONDON, BHAVANI Del Real Ot 427.31 ATRIAL FIBRILLATION 11/29/2014 JENNIFER LONDON, BHAVANI Del Real Ot 438.11 LATE EFF-CEREBR DIS APHASIA, SPEECH LA 11/29/2014 JENNIFER LONDON, BHAVANI Del Real Ot 438.20 LATE EFF-CEREBR DIS,HEMIPLEGIA AFFECTING 11/29/2014 JENNIFER LONDON, BHAVANI Del Real Ot 438.82 OTH LATE EFF-CEREB DIS, DYSPHAGIA 11/29/2014 JENNIFER LONDON, BHAVANI Del Real Ot 530.81 ESOPHAGEAL REFLUX 11/29/2014 JENNIFER LONDON, BHAVANI Del Real Ot 530.85 HIRSCH'S ESOPHAGUS 11/29/2014 JENNIFER LONDON, BHAVANI Del Real Ot 599.0 URIN TRACT INFECTION NOS 11/29/2014 JENNIFER LONDON, BHAVANI Del Real Ot 716.90 ARTHROPATHY NOS-UNSPEC 11/29/2014 JENNIFER LONDON, BHAVANI Del Real Ot 787.20 DYSPHAGIA, UNSPECIFIED 11/29/2014 JENNIFER LONDON, BHAVANI Del Real Ot 787.91 DIARRHEA 11/29/2014 BHAVANI RODRIGUEZ MD Ot E11.9 TYPE 2 DIABETES MELLITUS WITHOUT COMPLIC 11/29/2014 JENNIFER LONDON, BHAVANI Del Real Ot F17.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, UNSPECIFIED, UNCOMP 11/29/2014 BHAVANI RODRIGUEZ MD Ot F32.9 MAJOR DEPRESSIVE DISORDER, SINGLE EPISOD 11/29/2014 BHAVANI RODRIGUEZ MD Ot F41.9 ANXIETY DISORDER, UNSPECIFIED 11/29/2014 BHAVANI RODRIGUEZ MD Ot G60.9 HEREDITARY AND IDIOPATHIC NEUROPATHY, UN 11/29/2014 BHAVANI RODRIGUEZ MD Ot I10 ESSENTIAL (PRIMARY) HYPERTENSION 11/29/2014 BHAVANI RODRIGUEZ MD Ot I25.10 ATHSCL HEART DISEASE OF [place] CORONARY 11/29/2014 BHAVANI RODRIGUEZ MD Ot I48.91 UNSPECIFIED ATRIAL FIBRILLATION 11/29/2014 BHAVANI RODRIGUEZ MD Ot 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 11/29/2014 BHVAANI RODRIGUEZ MD Ot I69.959 HEMIPLGA FOLLOWING UNSP CEREBVASC DISEAS 11/29/2014 BHAVANI RODRIGUEZ MD, Ot 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 11/29/2014 BHAVANI RODRIGUEZ MD Ot K21.9 GASTRO-ESOPHAGEAL REFLUX DISEASE WITHOUT 11/29/2014 BHAVANI RODRIGUEZ MD, Ot 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 11/29/2014 BHAVANI RODRIGUEZ MD, Ot M12.9 ARTHROPATHY, UNSPECIFIED 11/29/2014 BHAVANI RODRIGUEZ MD, Ot N39.0 URINARY TRACT INFECTION, SITE NOT SPECIF 11/29/2014 BHAVANI RODRIGUEZ MD, Ot V10.42 HX-UTERUS MALIGNANCY NEC 11/29/2014 BHAVANI RODRIGUEZ MD, Ot V44.1 GASTROSTOMY STATUS 11/29/2014 BHAVANI RODRIGUEZ MD, Ot V49.86 DO NOT RESUSCITATE STATUS 11/29/2014 BHAVANI RODRIGUEZ MD, Ot V58.67 LONG-TERM (CURRENT) USE OF INSULIN 11/29/2014 BHAVANI RODRIGUEZ MD Ot V60.4 NO FAMILY ABLE TO CARE 11/29/2014 BHAVANI RODRIGUEZ MD Ot Z66 DO NOT RESUSCITATE 11/29/2014 BHAVANI RODRIGUEZ MD, Ot Z74.2 NEED FOR ASSIST AT HOME NO HOUSE MEMB 11/29/2014 BHAVANI RODRIGUEZ MD Ot Z79.4 SUPERVISOR OF RESEARCH (CURRENT) USE OF INSULIN 11/29/2014 BHAVANI RODRIGUEZ MD Ot Z85.42 PERSONAL HISTORY OF MALIGNANT NEOPLASM O 11/29/2014 BHAVANI RODRIGUEZ MD Ot Z93.1 GASTROSTOMY STATUS 12/23/2014 DANIEL LONDON, LEONIE Tse Ot Z43.1 ENCOUNTER FOR ATTENTION TO GASTROSTOMY 02/16/2015 JAME PAGAN APRN Ot Z43.1 ENCOUNTER FOR ATTENTION TO GASTROSTOMY 02/25/2015 MOI LONDON, NAFISA Botello Ot E11.649 TYPE 2 DIABETES MELLITUS WITH HYPOGLYCEM 02/25/2015 MOI LONDON, NAFISA Botello Ot I10 ESSENTIAL (PRIMARY) HYPERTENSION 02/25/2015 MOI LONDON, NAFISA Botello Ot I48.91 UNSPECIFIED ATRIAL FIBRILLATION 02/25/2015 NAFISA PRATER MD, Ot I69.954 HEMIPLGA FOL UNSP CEREBVASC DISEASE AFF 02/25/2015 MOI LONDON, NAFISA Botello Ot 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 02/25/2015 NAFISA PRATER MD Ot R13.10 DYSPHAGIA, UNSPECIFIED 02/25/2015 NAFISA PRATER MD Ot R79.89 OTHER SPECIFIED ABNORMAL FINDINGS OF BLO 02/25/2015 NAFISA PRATER MD Ot Z79.4 MCC (CURRENT) USE OF INSULIN 03/29/2015 BHAVANI RODRIGUEZ MD Ot E11.9 TYPE 2 DIABETES MELLITUS WITHOUT COMPLIC 03/29/2015 BHAVANI RODRIGUEZ MD Ot E78.5 HYPERLIPIDEMIA, UNSPECIFIED 03/29/2015 BHAVANI RODRIGUEZ MD Ot I10 ESSENTIAL (PRIMARY) HYPERTENSION 03/29/2015 BHAVANI RODRIGUEZ MD, Ot I25.10 ATHSCL HEART DISEASE OF [place] CORONARY 03/29/2015 BHAVANI RODRIGUEZ MD Ot I48.91 UNSPECIFIED ATRIAL FIBRILLATION 03/29/2015 BHAVANI RODRIGUEZ MD Ot I69.320 APHASIA FOLLOWING CEREBRAL INFARCTION 03/29/2015 BHAVANI RODRIGUEZ MD Ot I69.351 HEMIPLGA FOLLOWING CEREBRAL INFRC AFF RI 03/29/2015 BHAVANI RODRIGUEZ MD Ot I69.391 DYSPHAGIA FOLLOWING CEREBRAL INFARCTION 03/29/2015 BHAVANI RODRIGUEZ MD Ot J96.11 CHRONIC RESPIRATORY FAILURE WITH HYPOXIA 03/29/2015 BHAVANI RODRIGUEZ MD Ot K21.9 GASTRO-ESOPHAGEAL REFLUX DISEASE WITHOUT 03/29/2015 BHAVANI RODRIGUEZ MD Ot R13.10 DYSPHAGIA, UNSPECIFIED 03/29/2015 BHAVANI RODRIGUEZ MD Ot Z66 DO NOT RESUSCITATE 03/29/2015 BHAVANI RODRIGUEZ MD, Ot Z79.4 SUPERVISOR OF RESEARCH (CURRENT) USE OF INSULIN 04/05/2015 BHAVANI RODRIGUEZ MD Ot I69.391 04/05/2015 BHAVANI RODRIGUEZ MD Ot M19.90 05/02/2015 BHAVANI RODRIGUEZ MD Ot I69.391 DYSPHAGIA FOLLOWING CEREBRAL INFARCTION 05/02/2015 BHAVANI RODRIGUEZ MD, Ot M19.90 UNSPECIFIED OSTEOARTHRITIS, UNSPECIFIED 08/10/2015 VILLA TAVERA DO Ot E11.9 TYPE 2 DIABETES MELLITUS WITHOUT COMPLIC 08/10/2015 AYSE DO, VILLA K Ot 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 08/10/2015 CHUN TAVERA DOA K Ot 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 08/10/2015 CHUN TAVERA DOA K Ot I69.998 OTHER SEQUELAE FOLLOWING UNSPECIFIED CER 08/10/2015 VILLA TAVERA DO Ot S70.02XA CONTUSION OF LEFT HIP, INITIAL ENCOUNTER 08/10/2015 VILLA TAVERA DO Ot Z79.4 SUPERVISOR OF RESEARCH (CURRENT) USE OF INSULIN 08/10/2015 VILLA TAVERA DO Ot Z85.42 PERSONAL HISTORY OF MALIGNANT NEOPLASM O 08/10/2015 VILLA TAVERA DO Ot Z87.891 PERSONAL HISTORY OF NICOTINE DEPENDENCE 08/10/2015 VILLA TAVERA DO Ot Z93.1 GASTROSTOMY STATUS 08/16/2015 ANIVAL LONDON, SATINDER Hobbs Ot E11.9 TYPE 2 DIABETES MELLITUS WITHOUT COMPLIC 08/16/2015 SATINDER FLORIAN MD Ot 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 08/16/2015 SATINDER FLORIAN MD Ot 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 08/16/2015 SATINDER FLORIAN MD Ot I69.998 OTHER SEQUELAE FOLLOWING UNSPECIFIED CER 08/16/2015 SATINDER FLORIAN MD Ot K21.9 GASTRO-ESOPHAGEAL REFLUX DISEASE WITHOUT 08/16/2015 SATINDER FLORIAN MD Ot Z43.1 ENCOUNTER FOR ATTENTION TO GASTROSTOMY 08/16/2015 SATINDER FLORIAN MD Ot Z79.4 MCC (CURRENT) USE OF INSULIN 08/16/2015 SATINDER FLORIAN MD Ot Z85.42 PERSONAL HISTORY OF MALIGNANT NEOPLASM O 08/16/2015 SATINDER FLORIAN MD Ot Z87.891 PERSONAL HISTORY OF NICOTINE DEPENDENCE 08/20/2015 SATINDER FLORIAN MD Ot E11.9 TYPE 2 DIABETES MELLITUS WITHOUT COMPLIC 08/20/2015 SATINDER FLORIAN MD Ot 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 08/20/2015 SATINDER FLORIAN MD Ot 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 08/20/2015 SATINDER FLORIAN MD Ot I69.998 OTHER SEQUELAE FOLLOWING UNSPECIFIED CER 08/20/2015 SATINDER FLORIAN MD Ot K21.9 GASTRO-ESOPHAGEAL REFLUX DISEASE WITHOUT 08/20/2015 SATINDER FLORIAN MD Ot Z43.1 ENCOUNTER FOR ATTENTION TO GASTROSTOMY 08/20/2015 SATINDER FLORIAN MD Ot Z79.4 SUPERVISOR OF RESEARCH (CURRENT) USE OF INSULIN 08/20/2015 SATINDER FLORIAN MD Ot Z85.42 PERSONAL HISTORY OF MALIGNANT NEOPLASM O 08/20/2015 SATINDER FLORIAN MD Ot Z87.891 PERSONAL HISTORY OF NICOTINE DEPENDENCE 08/31/2015 SATINDER FLORIAN MD Ot E11.9 TYPE 2 DIABETES MELLITUS WITHOUT COMPLIC 08/31/2015 SATINDER FLORIAN MD Ot 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 08/31/2015 SATINDER FLORIAN MD Ot 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 08/31/2015 SATINDER FLORIAN MD Ot I69.998 OTHER SEQUELAE FOLLOWING UNSPECIFIED CER 08/31/2015 SATINDER FLORIAN MD Ot K21.9 GASTRO-ESOPHAGEAL REFLUX DISEASE WITHOUT 08/31/2015 SATINDER FLORIAN MD Ot Z43.1 ENCOUNTER FOR ATTENTION TO GASTROSTOMY 08/31/2015 SATINDER FLORIAN MD Ot Z79.4 SUPERVISOR OF RESEARCH (CURRENT) USE OF INSULIN 08/31/2015 SATINDER FLORIAN MD Ot Z85.42 PERSONAL HISTORY OF MALIGNANT NEOPLASM O 08/31/2015 SATINDER FLORIAN MD Ot Z87.891 PERSONAL HISTORY OF NICOTINE DEPENDENCE 09/01/2015 SATIDNER FLORIAN MD Ot E11.9 TYPE 2 DIABETES MELLITUS WITHOUT COMPLIC 09/01/2015 SATINDER FLORIAN MD Ot 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9 TYPE 2 DIABETES MELLITUS WITHOUT COMPLIC 04/26/2016 JON BUCHANAN MD Ot I10 ESSENTIAL (PRIMARY) HYPERTENSION 04/26/2016 JON BUCHANAN MD Ot I48.2 CHRONIC ATRIAL FIBRILLATION 04/26/2016 JON BUCHANAN MD Ot 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 04/26/2016 JON BUCHANAN MD Ot 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 04/26/2016 JON BUCHANAN MD Ot 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 04/26/2016 JON BUCHANAN MD Ot K44.9 DIAPHRAGMATIC HERNIA WITHOUT OBSTRUCTION 04/26/2016 JON BUCHANAN MD Ot M40.209 UNSPECIFIED KYPHOSIS, SITE UNSPECIFIED 04/26/2016 JON BUCHANAN MD Ot N39.0 URINARY TRACT INFECTION, SITE NOT SPECIF 04/26/2016 JON BUCHANAN MD Ot R06.02 SHORTNESS OF BREATH 04/26/2016 JON BUCHANAN MD Ot R09.02 HYPOXEMIA 04/26/2016 JON BUCHANAN MD Ot T18.198A OTH FOREIGN OBJECT IN ESOPHAGUS CAUSING 04/26/2016 JON BUCHANAN MD Ot Y92.[address] IN CUSTODIAL PLACE 04/26/2016 JON BUCHANAN MD Ot Z79.4 SUPERVISOR OF RESEARCH (CURRENT) USE OF INSULIN 04/26/2016 JON BUCHANAN MD Ot Z79.899 OTHER SUPERVISOR OF RESEARCH (CURRENT) DRUG THERAPY 04/26/2016 JON BUCHANAN MD Ot Z93.1 GASTROSTOMY STATUS 04/28/2016 JON BUCHANAN MD Ot E11.9 TYPE 2 DIABETES MELLITUS WITHOUT COMPLIC 04/28/2016 JON BUCHANAN MD Ot I10 ESSENTIAL (PRIMARY) HYPERTENSION 04/28/2016 JON BUCHANAN MD Ot I48.2 CHRONIC ATRIAL FIBRILLATION 04/28/2016 JON BUCHANAN MD Ot 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 04/28/2016 JON BUCHANAN MD Ot 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 04/28/2016 CHANEL LONDON, JON Shabazz Ot 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 04/28/2016 CHANEL LONDON, JON Shabazz Ot K44.9 DIAPHRAGMATIC HERNIA WITHOUT OBSTRUCTION 04/28/2016 CHANEL LONDON, JON Shabazz Ot M40.209 UNSPECIFIED KYPHOSIS, SITE UNSPECIFIED 04/28/2016 CHANEL LONDON JON Shabazz Ot N39.0 URINARY TRACT INFECTION, SITE NOT SPECIF 04/28/2016 CHANEL LONDON JON Shabazz Ot R06.02 SHORTNESS OF BREATH 04/28/2016 CHANEL LONDON JON Shabazz Ot R09.02 HYPOXEMIA 04/28/2016 CHANEL LONDON JON Shabazz Ot T18.198A OTH FOREIGN OBJECT IN ESOPHAGUS CAUSING 04/28/2016 JON BUCHANAN MD Ot Y92.[address] IN CUSTODIAL PLACE 04/28/2016 CHANEL LONDON JON Mele Ot Z79.4 SUPERVISOR OF RESEARCH (CURRENT) USE OF INSULIN 04/28/2016 CHANEL LONDON JON Mele Ot Z79.899 OTHER SUPERVISOR OF RESEARCH (CURRENT) DRUG THERAPY 04/28/2016 CHANEL LONDON JON Shabazz Ot Z93.1 GASTROSTOMY STATUS 03/25/2017 ANIVAL LONDON, SATINDER Hobbs Ot Z01.818 ENCOUNTER FOR OTHER PREPROCEDURAL EXAMIN 03/25/2017 ANIVAL LONDON, SATINDER Hobbs Ot Z43.1 ENCOUNTER FOR ATTENTION TO GASTROSTOMY 03/26/2017 SATINDER FLORIAN MD Ot Z01.818 ENCOUNTER FOR OTHER PREPROCEDURAL EXAMIN 03/26/2017 SATINDER FLORIAN MD Ot Z43.1 ENCOUNTER FOR ATTENTION TO GASTROSTOMY 03/29/2017 XIOMY ALBERTO NURSES ASSISTANT Ot 715.31 LOC OSTEOARTH NOS-SHLDER 03/29/2017 XIOMY ALBERTO NURSES ASSISTANT Ot 719.41 JOINT PAIN-SHLDER 03/29/2017 XIOMY ALBERTO NURSES ASSISTANT Ot 726.10 BURSAE TENDONS DIS SHLDER NOS 03/29/2017 XIOMY ALBERTO NURSES ASSISTANT Ot V15.88 HISTORY OF FALL 03/29/2017 MATTY LONDON, LIDYA Bernard Ot 840.4 SPRAIN ROTATOR CUFF 03/29/2017 LIDYA STARR MD Ot E000.8 OTHER EXTERNAL CAUSE STATUS 03/29/2017 LIDYA STARR MD Ot E928.9 ACCIDENT NOS 03/29/2017 LIDYA STARR MD Ot V72.63 PRE-PROCEDURAL LABORATORY EXAMINATION 03/29/2017 LIDYA STARR MD Ot V72.81 [id number] CARDIOVASCULAR 03/29/2017 LIDYA STARR MD Ot V74.8 SCREEN-BACTERIAL DIS NEC 03/29/2017 BJ LONDON, EVA Tse Ot N39.0 URINARY TRACT INFECTION, SITE NOT SPECIF 03/29/2017 XIOMY ALBERTO NURSES ASSISTANT Ot 715.31 LOC OSTEOARTH NOS-SHLDER 03/29/2017 XIOMY ALBERTO NURSES ASSISTANT Ot 719.41 JOINT PAIN-SHLDER 03/29/2017 XIOMY ALBERTO NURSES ASSISTANT Ot 726.10 BURSAE TENDONS DIS SHLDER NOS 03/29/2017 XIOMY ALBERTO NURSES ASSISTANT Ot V15.88 HISTORY OF FALL 03/29/2017 LIDYA STARR MD Ot 840.4 SPRAIN ROTATOR CUFF 03/29/2017 LIDYA STARR MD Ot E000.8 OTHER EXTERNAL CAUSE STATUS 03/29/2017 LIDYA STARR MD Ot E928.9 ACCIDENT NOS 03/29/2017 LIDYA STARR MD Ot V72.63 PRE-PROCEDURAL LABORATORY EXAMINATION 03/29/2017 LIDYA STARR MD Ot V72.81 [id number] CARDIOVASCULAR 03/29/2017 LIDYA STARR MD Ot V74.8 SCREEN-BACTERIAL DIS NEC 03/29/2017 BJ LONDON, EVA Tse Ot N39.0 URINARY TRACT INFECTION, SITE NOT SPECIF 03/29/2017 ANIVAL LONDON, SATINDER Hobbs Ot E11.9 TYPE 2 DIABETES MELLITUS WITHOUT COMPLIC 03/29/2017 ANIVAL LONDON, SATINDER Hobbs Ot I63.9 CEREBRAL INFARCTION, UNSPECIFIED 03/29/2017 ANIVAL LONDON, SATINDER Hobbs Ot Z43.1 ENCOUNTER FOR ATTENTION TO GASTROSTOMY 03/29/2017 ANIVAL LONDON, SATINDER Hobbs Ot Z53.09 PROC/TRTMT NOT CARRIED OUT BECAUSE OF CO 03/29/2017 ANIVAL LONDON, SATINDER Hobbs Ot Z79.899 OTHER [facility] (CURRENT) DRUG THERAPY 03/30/2017 BJ MD, EVA A Ot N39.0 URINARY TRACT INFECTION, SITE NOT SPECIF 03/30/2017 BJ LONDON, EVA Tse Ot N39.0 URINARY TRACT INFECTION, SITE NOT SPECIF 03/30/2017 XIOMY ALBERTOP Ot 715.31 LOC OSTEOARTH NOS-SHLDER 03/30/2017 XIOMY ALBERTO NURSES ASSISTANT Ot 719.41 JOINT PAIN-SHLDER 03/30/2017 XIOMY ALBERTO NURSES ASSISTANT Ot 726.10 BURSAE TENDONS DIS SHLDER NOS 03/30/2017 XIOMY ALBERTO NURSES ASSISTANT Ot V15.88 HISTORY OF FALL 03/30/2017 MATTY LONDON, LIDYA P Ot 840.4 SPRAIN ROTATOR CUFF 03/30/2017 MATTY LONDON, LIDYA P Ot E000.8 OTHER EXTERNAL CAUSE STATUS 03/30/2017 MATTY LONDON, LIDYA Bernard Ot E928.9 ACCIDENT NOS 03/30/2017 MATTY LONDON, LIDYA P Ot V72.63 PRE-PROCEDURAL LABORATORY EXAMINATION 03/30/2017 MATTY LONDON, LIDYA Bernard Ot V72.81 [id number] CARDIOVASCULAR 03/30/2017 LIDYA STARR MD P Ot V74.8 SCREEN-BACTERIAL DIS NEC 03/30/2017 BJ LONDON, EVA Tse Ot N39.0 URINARY TRACT INFECTION, SITE NOT SPECIF 04/01/2017 ANIVAL LONDON, SATINDER Hobbs Ot E11.9 TYPE 2 DIABETES MELLITUS WITHOUT COMPLIC 04/01/2017 ANIVAL LONDON, SATINDER Hobbs Ot I63.9 CEREBRAL INFARCTION, UNSPECIFIED 04/01/2017 ANIVAL LONDON, SATINDER Hobbs Ot Z43.1 ENCOUNTER FOR ATTENTION TO GASTROSTOMY 04/01/2017 ANIVAL LONDON, SATINDER Hobbs Ot Z53.09 PROC/TRTMT NOT CARRIED OUT BECAUSE OF CO 04/01/2017 ANIVAL LONDON, SATINDER Hobbs Ot Z79.899 OTHER SUPERVISOR OF RESEARCH (CURRENT) DRUG THERAPY 04/08/2017 BJ L[place]ON, EVA Tse Ot N39.0 URINARY TRACT INFECTION, SITE NOT SPECIF 04/13/2017 XIOMY ALBERTO NURSES ASSISTANT Ot 715.31 LOC OSTEOARTH NOS-SHLDER 04/13/2017 XIOMY ALBERTO NURSES ASSISTANT Ot 719.41 JOINT PAIN-SHLDER 04/13/2017 XIOMY ALBERTO NURSES ASSISTANT Ot 726.10 BURSAE TENDONS DIS SHLDER NOS 04/13/2017 XIOMY ALBERTO NURSES ASSISTANT Ot V15.88 HISTORY OF FALL 04/13/2017 LIDYA STARR MD Ot 840.4 SPRAIN ROTATOR CUFF 04/13/2017 LIDYA STARR MD Ot E000.8 OTHER EXTERNAL CAUSE STATUS 04/13/2017 LIDYA STARR MD Ot E928.9 ACCIDENT NOS 04/13/2017 LIDYA STARR MD Ot V72.63 PRE-PROCEDURAL LABORATORY EXAMINATION 04/13/2017 LIDYA STARR MD Ot V72.81 [id number] CARDIOVASCULAR 04/13/2017 LIDYA STARR MD, Ot V74.8 SCREEN-BACTERIAL DIS NEC 04/13/2017 BJ L[place]ON, EVA Tse Ot N39.0 URINARY TRACT INFECTION, SITE NOT SPECIF 04/15/2017 MARYCARMEN ANDREW MD, Ot Z01.818 ENCOUNTER FOR OTHER PREPROCEDURAL EXAMIN 04/15/2017 MARYCARMEN ANDREW MD Ot Z43.1 ENCOUNTER FOR ATTENTION TO GASTROSTOMY 04/16/2017 MARYCARMEN ANDREW MD Ot Z01.818 ENCOUNTER FOR OTHER PREPROCEDURAL EXAMIN 04/16/2017 MARYCARMEN ANDREW MD, Ot Z43.1 ENCOUNTER FOR ATTENTION TO GASTROSTOMY 04/21/2017 MARYCARMEN ANDREW MD Ot E11.9 TYPE 2 DIABETES MELLITUS WITHOUT COMPLIC 04/21/2017 MARYCARMEN ANDREW MD Ot E78.00 PURE HYPERCHOLESTEROLEMIA, UNSPECIFIED 04/21/2017 MARYCARMEN ANDREW MD, Ot F32.9 MAJOR DEPRESSIVE DISORDER, SINGLE EPISOD 04/21/2017 MARYCARMEN ANDREW MD, Ot F41.9 ANXIETY DISORDER, UNSPECIFIED 04/21/2017 MARYCARMEN ANDREW MD Ot I10 ESSENTIAL (PRIMARY) HYPERTENSION 04/21/2017 MARYCARMEN ANDREW MD, Ot I69.354 HEMIPLGA FOLLOWING CEREBRAL INFRC AFFECT 04/21/2017 MARYCARMEN ANDREW MD, Ot K21.9 GASTRO-ESOPHAGEAL REFLUX DISEASE WITHOUT 04/21/2017 MARYCARMEN ANDREW MD, Ot Z43.1 ENCOUNTER FOR ATTENTION TO GASTROSTOMY 04/21/2017 MARYCARMEN ANDREW MD, Ot Z79.899 OTHER MCC (CURRENT) DRUG THERAPY 04/21/2017 MARYCARMEN ANDREW MD, Ot Z85.43 PERSONAL HISTORY OF MALIGNANT NEOPLASM O 04/21/2017 MARYCARMEN ANDREW MD, Ot Z87.891 PERSONAL HISTORY OF NICOTINE DEPENDENCE 04/23/2017 XIOMY ALBERTOP Ot 715.31 LOC OSTEOARTH NOS-SHLDER 04/23/2017 XIOMY ALBERTO Ot 719.41 JOINT PAIN-SHLDER 04/23/2017 XIOMY ALBERTO NURSES ASSISTANT Ot 726.10 BURSAE TENDONS DIS SHLDER NOS 04/23/2017 XIOMY ALBERTO NURSES ASSISTANT Ot V15.88 HISTORY OF FALL 04/23/2017 LIDYA STARR MD Ot 840.4 SPRAIN ROTATOR CUFF 04/23/2017 LIDYA STARR MD Ot E000.8 OTHER EXTERNAL CAUSE STATUS 04/23/2017 LIDYA STARR MD Ot E928.9 ACCIDENT NOS 04/23/2017 LIDYA STARR MD Ot V72.63 PRE-PROCEDURAL LABORATORY EXAMINATION 04/23/2017 LIDYA STARR MD Ot V72.81 [id number] CARDIOVASCULAR 04/23/2017 LIDYA STARR MD Ot V74.8 SCREEN-BACTERIAL DIS NEC 04/23/2017 BJ L[place], EVA Tse Ot N39.0 URINARY TRACT INFECTION, SITE NOT SPECIF 04/26/2017 MARYCARMEN ANDREW MD Ot K59.00 CONSTIPATION, UNSPECIFIED 04/26/2017 MARYCARMEN ANDREW MD Ot Z43.1 ENCOUNTER FOR ATTENTION TO GASTROSTOMY 04/26/2017 MARYCARMEN ANDREW MD Ot K59.00 CONSTIPATION, UNSPECIFIED 04/26/2017 MARYCARMEN ANDREW MD Ot Z43.1 ENCOUNTER FOR ATTENTION TO GASTROSTOMY 04/27/2017 MARYCARMEN ANDREW MD, Ot T18.2XXA FOREIGN BODY IN STOMACH, INITIAL ENCOUNT 04/27/2017 MARYCARMEN ANDREW MD Ot Z43.1 ENCOUNTER FOR ATTENTION TO GASTROSTOMY 04/29/2017 MARYCARMEN ANDREW MD Ot Z43.1 ENCOUNTER FOR ATTENTION TO GASTROSTOMY 04/30/2017 XIOMY ALBERTO Ot 715.31 LOC OSTEOARTH NOS-SHLDER 04/30/2017 XIOMY ALBERTO NURSES ASSISTANT Ot 719.41 JOINT PAIN-SHLDER 04/30/2017 XIOMY ALBERTO NURSES ASSISTANT Ot 726.10 BURSAE TENDONS DIS SHLDER NOS 04/30/2017 XIOMY ALBERTO NURSES ASSISTANT Ot V15.88 HISTORY OF FALL 04/30/2017 LIDYA STARR MD Ot 840.4 SPRAIN ROTATOR CUFF 04/30/2017 LIDYA STARR MD Ot E000.8 OTHER EXTERNAL CAUSE STATUS 04/30/2017 LIDYA STARR MD Ot E928.9 ACCIDENT NOS 04/30/2017 LIDYA STARR MD Ot V72.63 PRE-PROCEDURAL LABORATORY EXAMINATION 04/30/2017 LIDYA STARR MD Ot V72.81 [id number] CARDIOVASCULAR 04/30/2017 LIDYA STARR MD Ot V74.8 SCREEN-BACTERIAL DIS NEC 04/30/2017 BJ [place], EVA Tse Ot N39.0 URINARY TRACT INFECTION, SITE NOT SPECIF 04/30/2017 MARYCARMEN ANDREW MD, Ot K59.00 CONSTIPATION, UNSPECIFIED 04/30/2017 MARYCARMEN ANDREW MD Ot Z43.1 ENCOUNTER FOR ATTENTION TO GASTROSTOMY 04/30/2017 MARYCARMEN ANDREW MD Ot T18.2XXA FOREIGN BODY IN STOMACH, INITIAL ENCOUNT 04/30/2017 MARYCARMEN ANDREW MD Ot Z43.1 ENCOUNTER FOR ATTENTION TO GASTROSTOMY 04/30/2017 MARYCARMEN ANDREW MD Ot Z43.1 ENCOUNTER FOR ATTENTION TO GASTROSTOMY 05/05/2017 XIOMY ALBERTO NURSES ASSISTANT Ot 715.31 LOC OSTEOARTH NOS-SHLDER 05/05/2017 XIOMY ALBERTO NURSES ASSISTANT Ot 719.41 JOINT PAIN-SHLDER 05/05/2017 XIOMY ALBERTO NURSES ASSISTANT Ot 726.10 BURSAE TENDONS DIS SHLDER NOS 05/05/2017 XIOMY ALBERTO NURSES ASSISTANT Ot V15.88 HISTORY OF FALL 05/05/2017 LIDYA STARR MD Ot 840.4 SPRAIN ROTATOR CUFF 05/05/2017 LIDYA STARR MD Ot E000.8 OTHER EXTERNAL CAUSE STATUS 05/05/2017 LIDYA STARR MD Ot E928.9 ACCIDENT NOS 05/05/2017 LIDYA STARR MD Ot V72.63 PRE-PROCEDURAL LABORATORY EXAMINATION 05/05/2017 LIDYA STARR MD Ot V72.81 [id number] CARDIOVASCULAR 05/05/2017 LIDYA STARR MD Ot V74.8 SCREEN-BACTERIAL DIS NEC 05/05/2017 EVA LORENZO MD, Ot N39.0 URINARY TRACT INFECTION, SITE NOT SPECIF 05/05/2017 MARYCARMEN ANDREW MD, Ot K59.00 CONSTIPATION, UNSPECIFIED 05/05/2017 MARYCARMEN ANDREW MD, Ot Z43.1 ENCOUNTER FOR ATTENTION TO GASTROSTOMY 05/05/2017 MARYCARMEN ANDREW MD, Ot T18.2XXA FOREIGN BODY IN STOMACH, INITIAL ENCOUNT 05/05/2017 MARYCARMEN ANDREW MD, Ot Z43.1 ENCOUNTER FOR ATTENTION TO GASTROSTOMY 05/05/2017 MARYCARMEN ANDREW MD, Ot Z43.1 ENCOUNTER FOR ATTENTION TO GASTROSTOMY 05/05/2017 MARYCARMEN ANDREW MD, Ot R19.01 RIGHT UPPER QUADRANT ABDOMINAL SWELLING, 05/05/2017 MARYCARMEN ANDREW MD, Ot Z03.89 ENCNTR FOR OBS FOR OTH SUSPECTED DISEASE 05/05/2017 MARYCARMEN ANDREW MD, Ot Z93.1 GASTROSTOMY STATUS 05/05/2017 EVA LORENZO MD Ot R10.2 PELVIC AND PERINEAL PAIN 05/05/2017 EVA LORENZO MD Ot R35.0 FREQUENCY OF MICTURITION 05/05/2017 EVA LORENZO MD Ot R10.2 PELVIC AND PERINEAL PAIN 05/05/2017 EVA LORENZO MD Ot R35.0 FREQUENCY OF MICTURITION 05/05/2017 MARYCARMEN ANDREW MD Ot E11.9 TYPE 2 DIABETES MELLITUS WITHOUT COMPLIC 05/05/2017 MARYCARMEN ANDREW MD Ot E78.00 PURE HYPERCHOLESTEROLEMIA, UNSPECIFIED 05/05/2017 MARYCARMEN ANDREW MD, Ot F32.9 MAJOR DEPRESSIVE DISORDER, SINGLE EPISOD 05/05/2017 MARYCARMEN ANDREW MD, Ot F41.9 ANXIETY DISORDER, UNSPECIFIED 05/05/2017 MARYCARMEN ANDREW MD Ot I10 ESSENTIAL (PRIMARY) HYPERTENSION 05/05/2017 MARYCARMEN ANDREW MD Ot I69.354 HEMIPLGA FOLLOWING CEREBRAL INFRC AFFECT 05/05/2017 MARYCARMEN ANDREW MD, Ot K21.9 GASTRO-ESOPHAGEAL REFLUX DISEASE WITHOUT 05/05/2017 MARYCARMEN ANDREW MD, Ot Z43.1 ENCOUNTER FOR ATTENTION TO GASTROSTOMY 05/05/2017 MARYCARMEN ANDREW MD, Ot Z79.899 OTHER M[facility] (CURRENT) DRUG THERAPY 05/05/2017 MARYCARMEN ANDREW MD, Ot Z85.43 PERSONAL HISTORY OF MALIGNANT NEOPLASM O 05/05/2017 MARYCARMEN ANDREW MD, Ot Z87.891 PERSONAL HISTORY OF NICOTINE DEPENDENCE 05/07/2017 MARYCARMEN ANDREW MD, Ot K59.00 CONSTIPATION, UNSPECIFIED 05/07/2017 MARYCARMEN ANDREW MD, Ot Z43.1 ENCOUNTER FOR ATTENTION TO GASTROSTOMY 05/13/2017 MARYCARMEN ANDREW MD, Ot T18.2XXA FOREIGN BODY IN STOMACH, INITIAL ENCOUNT 05/13/2017 MARYCARMEN ANDREW MD, Ot Z43.1 ENCOUNTER FOR ATTENTION TO GASTROSTOMY 05/13/2017 MARYCARMEN ANDREW MD, Ot Z43.1 ENCOUNTER FOR ATTENTION TO GASTROSTOMY 05/14/2017 MARYCARMEN ANDREW MD, Ot R19.01 RIGHT UPPER QUADRANT ABDOMINAL SWELLING, 05/14/2017 MARYCARMEN ANDREW MD, Ot Z03.89 ENCNTR FOR OBS FOR OTH SUSPECTED DISEASE 05/14/2017 MARYCARMEN ANDREW MD, Ot Z93.1 GASTROSTOMY STATUS 05/14/2017 XIOMY ALBERTO NURSES ASSISTANT Ot 715.31 LOC OSTEOARTH NOS-SHLDER 05/14/2017 XIOMY ALBERTO NURSES ASSISTANT Ot 719.41 JOINT PAIN-SHLDER 05/14/2017 XIOMY ALBERTO NURSES ASSISTANT Ot 726.10 BURSAE TENDONS DIS SHLDER NOS 05/14/2017 XIOMY ALBERTO NURSES ASSISTANT Ot V15.88 HISTORY OF FALL 05/14/2017 LIDYA STARR MD Ot 840.4 SPRAIN ROTATOR CUFF 05/14/2017 LIDYA STARR MD Ot E000.8 OTHER EXTERNAL CAUSE STATUS 05/14/2017 LIDYA STARR MD Ot E928.9 ACCIDENT NOS 05/14/2017 LIDYA STARR MD Ot V72.63 PRE-PROCEDURAL LABORATORY EXAMINATION 05/14/2017 LIDYA STARR MD Ot V72.81 [id number] CARDIOVASCULAR 05/14/2017 LIDYA STARR MD Ot V74.8 SCREEN-BACTERIAL DIS NEC 05/14/2017 EVA LORENZO MD Ot N39.0 URINARY TRACT INFECTION, SITE NOT SPECIF 05/14/2017 MARYCARMEN ANDREW MD Ot K59.00 CONSTIPATION, UNSPECIFIED 05/14/2017 MARYCARMEN ANDREW MD Ot Z43.1 ENCOUNTER FOR ATTENTION TO GASTROSTOMY 05/14/2017 MARYCARMEN ANDREW MD Ot T18.2XXA FOREIGN BODY IN STOMACH, INITIAL ENCOUNT 05/14/2017 MARYCARMEN ANDREW MD Ot Z43.1 ENCOUNTER FOR ATTENTION TO GASTROSTOMY 05/14/2017 MARYCARMEN ANDREW MD Ot Z43.1 ENCOUNTER FOR ATTENTION TO GASTROSTOMY 05/14/2017 MARYCARMEN ANDREW MD Ot R19.01 RIGHT UPPER QUADRANT ABDOMINAL SWELLING, 05/14/2017 MARYCARMEN ANDREW MD Ot Z03.89 ENCNTR FOR OBS FOR OTH SUSPECTED DISEASE 05/14/2017 MARYCARMEN ANDREW MD Ot Z93.1 GASTROSTOMY STATUS 05/14/2017 EVA LORENZO MD Ot R10.2 PELVIC AND PERINEAL PAIN 05/14/2017 EVA LORENZO MD Ot R35.0 FREQUENCY OF MICTURITION 06/09/2017 EVA LORENZO MD Ot N39.0 URINARY TRACT INFECTION, SITE NOT SPECIF 06/11/2017 EVA LORENZO MD Ot N39.0 URINARY TRACT INFECTION, SITE NOT SPECIF 06/11/2017 EVA LORENZO MD Ot N39.0 URINARY TRACT INFECTION, SITE NOT SPECIF 06/22/2017 MARYCARMEN ANDREW MD Ot Z43.1 ENCOUNTER FOR ATTENTION TO GASTROSTOMY 06/22/2017 MARYCARMEN ANDREW MD Ot T18.2XXA FOREIGN BODY IN STOMACH, INITIAL ENCOUNT 06/22/2017 MARYCARMEN ANDREW MD Ot Z43.1 ENCOUNTER FOR ATTENTION TO GASTROSTOMY 06/22/2017 MARYCARMEN ANDREW MD Ot K59.00 CONSTIPATION, UNSPECIFIED 06/22/2017 MARYCARMEN ANDREW MD Ot Z43.1 ENCOUNTER FOR ATTENTION TO GASTROSTOMY 06/22/2017 MARYCARMEN ANDREW MD Ot R19.01 RIGHT UPPER QUADRANT ABDOMINAL SWELLING, 06/22/2017 MARYCARMEN ANDREW MD Ot Z03.89 ENCNTR FOR OBS FOR OTH SUSPECTED DISEASE 06/22/2017 MARYCARMEN ANDREW MD Ot Z93.1 GASTROSTOMY STATUS 06/23/2017 MARYCARMEN ANDREW MD Ot K59.00 CONSTIPATION, UNSPECIFIED 06/23/2017 MARYCARMEN ANDREW MD Ot Z43.1 ENCOUNTER FOR ATTENTION TO GASTROSTOMY 06/23/2017 MARYCARMEN ANDREW MD Ot T18.2XXA FOREIGN BODY IN STOMACH, INITIAL ENCOUNT 06/23/2017 MARYCARMEN ANDREW MD, Ot Z43.1 ENCOUNTER FOR ATTENTION TO GASTROSTOMY 06/23/2017 MARYCARMEN ANDREW MD Ot R19.01 RIGHT UPPER QUADRANT ABDOMINAL SWELLING, 06/23/2017 MARYCARMEN ANDREW MD Ot Z03.89 ENCNTR FOR OBS FOR OTH SUSPECTED DISEASE 06/23/2017 MARYCARMEN ANDREW MD Ot Z93.1 GASTROSTOMY STATUS 07/23/2017 EVA LORENZO MD Ot R10.2 PELVIC AND PERINEAL PAIN 07/23/2017 EVA LORENZO MD Ot R35.0 FREQUENCY OF MICTURITION Procedures Code Description [place] [address] A1C (IN-HOUSE) 07/04/2012 13201 MICRO ALBUMIN-IN HOUSE 07/04/2012 01241 UA LONG DIP 07/05/2012 Xiomy Espinosa 07/06/201252805 JOINT INJECTION- INTERMEDIATE JOINT 11/03/2012 PHYSICAL PHYSICAL THERAPY, VIA [facility] 11/03/2012 77194 XRAY SHOULDER LEFT COMP 2 VIEWS 12/15/2012 97857 ROUTINE VENIPUNCTURE 01/19/2013 50085 MICRO ALBUMIN-IN HOUSE 01/19/2013 12410 CBC 01/19/2013 [id number] GFR CALC (RESULT ONLY) 01/19/2013 87869 CMP 01/19/2013 95531 LIPID PANEL 01/19/2013 33979 A1C (RML) 01/19/2013 53973 JOINT INJECTION- INTERMEDIATE JOINT 02/09/2013 19400 MRI EXTREMITY JOINT, UPPER RIGHT, W/O CONTRAST 08/10/2013 Lidya Wong 08/11/2013 60866 A1C (IN-HOUSE) 08/28/2013 77116 MICRO ALBUMIN-IN HOUSE 12/01/2013 00151 A1C (IN-HOUSE) 12/01/2013 29438 ROUTINE VENIPUNCTURE 12/12/2013 98191 LIPID PANEL 12/12/2013 90785 A1C (IN-HOUSE) 03/20/2014 Results Test Result Range Complete blood count (CBC) with automated white blood cell (WBC) differential - 04/26/16 06:37 Blood leukocytes automated count (number/volume) 5.9 10*3/uL 4.3-11.0 Blood erythrocytes automated count (number/volume) 4.45 10*6/uL 4.35-5.85 Venous blood hemoglobin measurement (mass/volume) 14.1 g/dL 11.5-16.0 Blood hematocrit (volume fraction) 43 % 35-52 Automated erythrocyte mean corpuscular volume 96 [foz_us] 80-99 Automated erythrocyte mean corpuscular hemoglobin (mass per erythrocyte) 32 pg 25-34 Automated erythrocyte mean corpuscular hemoglobin concentration measurement ( mass/volume) 33 g/dL 32-36 Automated erythrocyte distribution width ratio 12.0 % 10.0-14.5 Automated blood platelet count (count/volume) 170 10*3/uL 130-400 Automated blood platelet mean volume measurement 12.5 [foz_us] 7.4-10.4 Automated blood neutrophils/100 leukocytes 63 % 42-75 Automated blood lymphocytes/100 leukocytes 25 % 12-44 Blood monocytes/100 leukocytes 11 % 0-12 Automated blood eosinophils/100 leukocytes 1 % 0-10 Automated blood basophils/100 leukocytes 0 % 0-10 Blood neutrophils automated count (number/volume) 3.7 10*3 1.8-7.8 Blood lymphocytes automated count (number/volume) 1.5 10*3 1.0-4.0 Blood monocytes automated count (number/volume) 0.6 10*3 0.0-1.0 Automated eosinophil count 0.1 10*3/uL 0.0-0.3 Automated blood basophil count (count/volume) 0.0 10*3/uL 0.0-0.1 Blood lactic acid measurement (moles/volume) - 04/26/16 06:37 Blood lactic acid measurement (moles/volume) 1.1 mmol/L 0.5-2.0 Comprehensive metabolic panel - 04/26/16 06:37 Serum or plasma sodium measurement (moles/volume) 139 mmol/L 135-145 Serum or plasma potassium measurement (moles/volume) 4.0 mmol/L 3.6-5.0 Serum or plasma chloride measurement (moles/volume) 99 mmol/L 98-107 Carbon dioxide 28 mmol/L 21-32 Serum or plasma anion gap determination (moles/volume) 12 mmol/L 5-14 Serum or plasma urea nitrogen measurement (mass/volume) 35 mg/dL 7-18 Serum or plasma creatinine measurement (mass/volume) 0.76 mg/dL 0.60-1.30 Serum or plasma urea nitrogen/creatinine mass ratio 46 NRG Serum or plasma creatinine measurement with calculation of estimated glomerular filtration rate > NRG Serum or plasma glucose measurement (mass/volume) 84 mg/dL 70-105 Serum or plasma calcium measurement (mass/volume) 9.4 mg/dL 8.5-10.1 Serum or plasma total bilirubin measurement (mass/volume) 0.5 mg/dL 0.1-1.0 Serum or plasma alkaline phosphatase measurement (enzymatic activity/volume) 86 U/L 40-136 Serum or plasma aspartate aminotransferase measurement (enzymatic activity/ volume) 44 U/L 5-34 Serum or plasma alanine aminotransferase measurement (enzymatic activity/volume ) 79 U/L 0-55 Serum or plasma protein measurement (mass/volume) 6.9 g/dL 6.4-8.2 Serum or plasma albumin measurement (mass/volume) 3.9 g/dL 3.2-4.5 Serum or plasma troponin i.cardiac measurement (mass/volume) - 04/26/16 06:37 Serum or plasma troponin i.cardiac measurement (mass/volume) < ng/ mL <0.30 Bacterial blood culture - 04/26/16 06:37 FREE TEXT EXTERNAL SEE COMMENTS NR QUANTITY OF GROWTH Isolated [facility] Bacterial blood culture [id number] [facility] Complete urinalysis with reflex to culture - 04/26/16 06:52 Urine color determination YELLOW NRG Urine clarity determination CLEAR NR Urine pH measurement by test strip 7 5-9 Specific gravity of urine by test strip 1.010 1.016- 1.022 Urine protein assay by test strip, semi-quantitative 2+ NEGATIVE Urine glucose detection by automated test strip NEGATIVE NEGATIVE Erythrocytes detection in urine sediment by light microscopy 3+ NEGATIVE Urine ketones detection by automated test strip NEGATIVE NEGATIVE Urine nitrite detection by test strip NEGATIVE NEGATIVE Urine total bilirubin detection by test strip NEGATIVE NEGATIVE Urine urobilinogen measurement by automated test strip (mass/volume) NORMAL NORMAL Urine leukocyte esterase detection by dipstick 3+ NEGATIVE Automated urine sediment erythrocyte count by microscopy (number/high power field) RARE NRG Automated urine sediment leukocyte count by microscopy (number/high power field ) [HPF] NRG Bacteria detection in urine sediment by light microscopy MODERATE NRG Squamous epithelial cells detection in urine sediment by light microscopy NONE NRG Crystals detection in urine sediment by light microscopy PRESENT NRG Casts detection in urine sediment by light microscopy NONE NRG Mucus detection in urine sediment by light microscopy NEGATIVE NRG Complete urinalysis with reflex to culture YES NRG Amorphous sediment detection in urine sediment by light microscopy MOD SONIA URATES NRG Bacterial urine culture - 04/26/16 06:52 Bacterial urine culture [id number] NRG COLONY COUNT 10,000/ML - 100,000/ML NRG FTX;REPORTABLE SENSITIVITY REPORTED 04/27/16 16:10 NRG Bacterial susceptibility panel - 04/26/16 06:52 Gentamicin susceptibility test by minimum inhibitory concentration < = NRG Trimethoprim/sulfamethoxazole susceptibility test by minimum inhibitoryconcentration <= NRG Ampicillin susceptibility test by minimum inhibitory concentration < = NRG Tobramycin susceptibility test by minimum inhibitory concentration < = NRG Cefazolin susceptibility test by minimum inhibitory concentration < = NRG Ceftriaxone susceptibility test by minimum inhibitory concentration <= NRG Ampicillin/sulbactam susceptibility test by minimum inhibitory concentration <= NRG Piperacillin/tazobactam susceptibility test by minimum inhibitory concentration <= NRG Ciprofloxacin susceptibility test by minimum inhibitory concentration <= NRG Meropenem susceptibility test by minimum inhibitory concentration < = NRG Nitrofurantoin susceptibility test by minimum inhibitory concentration 128 NRG Aztreonam susceptibility test by minimum inhibitory concentration < = NRG Bacterial blood culture - 04/26/16 07:01 Bacterial blood culture NG NRG Capillary blood glucose measurement by glucometer (mass/volume) - 04/26/16 09: 40 Capillary blood glucose measurement by glucometer (mass/volume) 109 mg/dL 70-110 Complete urinalysis with reflex to culture - 03/26/17 13:31 Urine color determination YELLOW NRG Urine clarity determination SLIGHTLY CLOUDY NRG Urine pH measurement by test strip 8 5-9 Specific gravity of urine by test strip 1.010 1.016- 1.022 Urine protein assay by test strip, semi-quantitative NEGATIVE NEGATIVE Urine glucose detection by automated test strip NEGATIVE NEGATIVE Erythrocytes detection in urine sediment by light microscopy NEGATIVE NEGATIVE Urine ketones detection by automated test strip NEGATIVE NEGATIVE Urine nitrite detection by test strip NEGATIVE NEGATIVE Urine total bilirubin detection by test strip NEGATIVE NEGATIVE Urine urobilinogen measurement by automated test strip (mass/volume) NORMAL NORMAL Urine leukocyte esterase detection by dipstick 3+ NEGATIVE Automated urine sediment erythrocyte count by microscopy (number/high power field) NONE NRG Automated urine sediment leukocyte count by microscopy (number/high power field ) [HPF] NRG Bacteria detection in urine sediment by light microscopy FEW NRG Squamous epithelial cells detection in urine sediment by light microscopy 0-2 NRG Crystals detection in urine sediment by light microscopy NONE NRG Casts detection in urine sediment by light microscopy NONE NRG Mucus detection in urine sediment by light microscopy NEGATIVE NRG Complete urinalysis with reflex to culture YES NRG Bacterial urine culture - 03/26/17 13:31 Bacterial urine culture [id number] NRG COLONY COUNT 10,000/ML - 100,000/ML NRG FTX;REPORTABLE SENSITIVITY REPORTED 03/29/17 14:30 NR Bacterial susceptibility panel - 03/26/17 13:31 Gentamicin susceptibility test by minimum inhibitory concentration < = NRG Trimethoprim/sulfamethoxazole susceptibility test by minimum inhibitoryconcentration S NR Ampicillin susceptibility test by minimum inhibitory concentration < = NRG Tobramycin susceptibility test by minimum inhibitory concentration < = NR Cefazolin susceptibility test by minimum inhibitory concentration < = NRG Ceftriaxone susceptibility test by minimum inhibitory concentration <= NRG Ampicillin/sulbactam susceptibility test by minimum inhibitory concentration <= NRG Piperacillin/tazobactam susceptibility test by minimum inhibitory concentration S NR Ciprofloxacin susceptibility test by minimum inhibitory concentration <= NRG Meropenem susceptibility test by minimum inhibitory concentration < = NRG Nitrofurantoin susceptibility test by minimum inhibitory concentration 128 NR Aztreonam susceptibility test by minimum inhibitory concentration < = NR Bacterial susceptibility panel - 03/26/17 13:31 Gentamicin susceptibility test by minimum inhibitory concentration < = NRG Tobramycin susceptibility test by minimum inhibitory concentration < = NRG Piperacillin/tazobactam susceptibility test by minimum inhibitory concentration S NR Ciprofloxacin susceptibility test by minimum inhibitory concentration <= NRG Meropenem susceptibility test by minimum inhibitory concentration < = NRG Cefepime susceptibility test by minimum inhibitory concentration 2 NRG Capillary blood glucose measurement by glucometer (mass/volume) - 03/29/17 11: 27 Capillary blood glucose measurement by glucometer (mass/volume) 77 mg/dL 70-110 Complete urinalysis with reflex to culture - 05/03/17 02:46 Urine color determination YELLOW NRG Urine clarity determination CLEAR NRG Urine pH measurement by test strip 7 5-9 Specific gravity of urine by test strip 1.005 1.016- 1.022 Urine protein assay by test strip, semi-quantitative 1+ NEGATIVE Urine glucose detection by automated test strip NEGATIVE NEGATIVE Erythrocytes detection in urine sediment by light microscopy NEGATIVE NEGATIVE Urine ketones detection by automated test strip NEGATIVE NEGATIVE Urine nitrite detection by test strip POSITIVE NEGATIVE Urine total bilirubin detection by test strip NEGATIVE NEGATIVE Urine urobilinogen measurement by automated test strip (mass/volume) NORMAL NORMAL Urine leukocyte esterase detection by dipstick 3+ NEGATIVE Automated urine sediment erythrocyte count by microscopy (number/high power field) NONE NRG Automated urine sediment leukocyte count by microscopy (number/high power field ) [HPF] NRG Bacteria detection in urine sediment by light microscopy TRACE NRG Squamous epithelial cells detection in urine sediment by light microscopy 0-2 NRG Crystals detection in urine sediment by light microscopy NONE NRG Casts detection in urine sediment by light microscopy NONE NRG Mucus detection in urine sediment by light microscopy NEGATIVE NRG Complete urinalysis with reflex to culture YES NRG Other elements identification in urine sediment by light microscopy 0-1 TRANS EPIS NR Bacterial urine culture - 05/03/17 02:46 Bacterial urine culture [id number] NRG COLONY COUNT <10,000 NRG FTX;REPORTABLE SENSITIVITY REPORTED AT 0752, 2-15-18 NR FREE TEXT ENTRY 2 (PREVIOUSLY REPORTED ST[employer]) [facility] Bacterial susceptibility panel - 05/03/17 02:46 Gentamicin susceptibility test by minimum inhibitory concentration 2 NRG Tobramycin susceptibility test by minimum inhibitory concentration < = NRG Piperacillin/tazobactam susceptibility test by minimum inhibitory concentration S NRG Ciprofloxacin susceptibility test by minimum inhibitory concentration <= NRG Meropenem susceptibility test by minimum inhibitory concentration 1 NRG Cefepime susceptibility test by minimum inhibitory concentration 4 NR Bacterial susceptibility panel - 05/03/17 02:46 Gentamicin susceptibility test by minimum inhibitory concentration < = NRG Tobramycin susceptibility test by minimum inhibitory concentration < = NRG Ciprofloxacin susceptibility test by minimum inhibitory concentration <= NRG Meropenem susceptibility test by minimum inhibitory concentration 1 NRG Cefepime susceptibility test by minimum inhibitory concentration >= NRG Bacterial susceptibility panel - 05/03/17 02:46 Oxacillin susceptibility test by minimum inhibitory concentration > = NRG Gentamicin susceptibility test by minimum inhibitory concentration < = NRG Trimethoprim/sulfamethoxazole susceptibility test by minimum inhibitoryconcentration R NRG Vancomycin susceptibility test by minimum inhibitory concentration 1 NRG Levofloxacin susceptibility test by minimum inhibitory concentration >= NRG Rifampin susceptibility test by minimum inhibitory concentration <= NRG Tetracycline susceptibility test by minimum inhibitory concentration <= NRG Ciprofloxacin susceptibility test by minimum inhibitory concentration R NRG Bacterial susceptibility panel - 05/03/17 02:46 Gentamicin susceptibility test by minimum inhibitory concentration < = NRG Trimethoprim/sulfamethoxazole susceptibility test by minimum inhibitoryconcentration S NRG Ampicillin susceptibility test by minimum inhibitory concentration < = NRG Tobramycin susceptibility test by minimum inhibitory concentration < = NRG Cefazolin susceptibility test by minimum inhibitory concentration < = NRG Ceftriaxone susceptibility test by minimum inhibitory concentration <= NRG Ampicillin/sulbactam susceptibility test by minimum inhibitory concentration <= NRG Piperacillin/tazobactam susceptibility test by minimum inhibitory concentration S NRG Ciprofloxacin susceptibility test by minimum inhibitory concentration <= NRG Meropenem susceptibility test by minimum inhibitory concentration < = NRG Nitrofurantoin susceptibility test by minimum inhibitory concentration 128 NRG Aztreonam susceptibility test by minimum inhibitory concentration < = NRG Encounters ACCT No. Visit Date/Time Discharge Status Pt. Type Provider Facility Loc./Unit Complaint [id number] 04/24/2014 00:00:00 04/24/2014 23:59:59 CLS Outpatient JOSE REED DDS [id number] 03/20/2014 13:56:00 03/20/2014 23:59:59 CLS Outpatient BHAVANI RODRIGUEZ MD [id number] 12/12/2013 08:29:00 12/12/2013 23:59:59 CLS Outpatient BHAVANI RODRIGUEZ MD [id number] 12/01/2013 09:34:00 12/01/2013 23:59:59 CLS Outpatient BHAVANI RODRIGUEZ MD [id number] 10/20/2013 09:04:00 10/20/2013 23:59:59 CLS Outpatient BHAVANI RODRIGUEZ MD [id number] 09/14/2013 15:08:00 09/14/2013 23:59:59 CLS Outpatient BHAVANI RODRIGUEZ MD [id number] 08/30/2013 16:07:00 08/30/2013 23:59:59 CLS Outpatient WHITE DDSDOT [id number] 08/28/2013 11:21:00 08/28/2013 23:59:59 CLS Outpatient BHAVANI RODRIGUEZ MD [id number] 08/10/2013 12:52:00 08/10/2013 23:59:59 CLS Outpatient COURTNEY WILKINSON CAMERON Gannon [id number] 05/26/2013 09:29:00 05/26/2013 23:59:59 CLS Outpatient WHITE HIRAM JOSE Craven [id number] 05/18/2013 15:12:00 05/18/2013 23:59:59 CLS Outpatient VALDEZ DOCAMERON [id number] 03/24/2013 00:00:00 03/24/2013 23:59:59 CLS Outpatient DEREK GANDHI JOSE Craven [id number] 02/09/2013 13:46:00 02/09/2013 23:59:59 CLS Outpatient CAMERON VALDEZ DO [id number] 01/19/2013 08:41:00 01/19/2013 23:59:59 CLS Outpatient BHAVANI RODRIGUEZ MD [id number] 01/04/2013 10:17:00 01/04/2013 23:59:59 CLS Outpatient RUBÉN GOLDMAN APRN [id number] 12/15/2012 15:39:00 12/15/2012 23:59:59 CLS Outpatient CAMERON VALDEZ DO [id number] 11/03/2012 13:55:00 11/03/2012 23:59:59 CLS Outpatient CAMERON VALDEZ DO [id number] 01/05/2012 11:45:00 01/05/2012 23:59:59 [place] [id number] 01/05/2012 11:45:00 01/05/2012 23:59:59 CLS Outpatient JOSE A DAVALOS APRN [id number] 07/05/2012 13:31:00 Document Registration [id number] 05/03/2017 08:54:00 05/03/2017 23:59:59 CLS Outpatient EVA LORENZO MD [facility] [id number] 04/30/2017 11:33:00 04/30/2017 23:59:59 CLS Outpatient MARYCARMEN ANDREW MD [facility] RAD FOREIGN BODY IN STOMACH [id number] 04/28/2017 09:12:00 04/28/2017 23:59:59 CLS Outpatient MARYCARMEN ANDREW MD [facility] RAD [id number] 04/26/2017 12:03:00 04/26/2017 23:59:59 CLS Outpatient MARYCARMEN ANDREW MD [facility] RAD FOREIGN BODY IN ABD [id number] 04/23/2017 11:00:00 04/23/2017 23:59:59 CLS Outpatient MARYCARMEN ANDREW MD [facility] RAD S/P PEG TUBE CHANGE [id number] 04/21/2017 10:31:00 04/21/2017 16:00:00 DIS Outpatient MARYCARMEN ANDREW MD [facility] ENDO MALFUNCTIONIN PEG TUBE [id number] 04/15/2017 05:31:00 04/15/2017 11:14:00 DIS Outpatient MARYCARMEN ANDREW MD [facility] PREOP EGD REPLACE PEG TUBE [id number] 03/29/2017 10:17:00 03/29/2017 13:55:00 DIS Outpatient SATINDER FLORIAN MD [facility] ENDO STROKE/NON FUNCTIONING PEG TUBE [id number] 03/26/2017 14:34:00 03/26/2017 23:59:59 CLS Out[id number] 03/25/2017 05:41:00 03/25/2017 13:08:00 DIS Outpatient SATINDER FLORIAN MD [facility] PREOP EGD [id number] 04/26/2016 06:30:00 04/26/2016 10:30:00 DIS Emergency CHANEL LONDON, JON Shabazz [facility] ER SOA [id number] 08/16/2015 12:24:00 08/16/2015 16:45:00 DIS Outpatient SATINDER FLORIAN MD [facility] SDC PEG TUBE PLACEMENT [id number] 08/10/2015 19:59:00 08/10/2015 22:25:00 DIS Emergency AYSE DO, VILLA K [facility] ER FALL [id number] 04/01/2015 13:05:00 05/02/2015 14:48:00 DIS Outpatient BHAVANI RODRIGUEZ MD [facility] REHAB CVA [id number] 03/27/2015 02:50:00 03/29/2015 16:35:00 DIS Inpatient BHAVANI RODRIGUEZ MD [facility] 4TH BRONCHITIS WITH HYPOXIA; POSSIBLE ASPIRATION; [id number] 02/23/2015 13:30:00 02/25/2015 17:16:00 DIS Inpatient MOI LONDON, NAFISA Botello [facility] 4TH HYPOGLYCEMIA [id number] 02/16/2015 13:54:00 02/16/2015 15:32:00 DIS Emergency JAME PAGAN APRN [facility] ER LEAKING FEEDING TUBE [id number] 12/23/2014 19:38:00 12/23/2014 20:55:00 DIS Emergency DANIEL LONDON, LEONIE Tse [facility] ER FEEDING TUBE PROBLEMS [id number] 11/26/2014 18:08:00 11/29/2014 14:00:00 DIS Inpatient BHAVANI RODRIGUEZ MD [facility] SURGICAL UTI,GENERILIZED WEAKNESS [id number] 09/21/2014 15:34:00 10/24/2014 19:00:00 DIS Inpatient VIRY LONDON, BELL Childs [facility] IRF CLOSED HEAD INJURY [id number] 09/13/2014 05:26:00 09/13/2014 07:30:00 DIS Emergency CAROL LONDON, KASEY García [facility] ER STROKE [id number] 03/29/2014 00:26:00 03/29/2014 23:59:59 CLS Preadmit XIOMY ALBERTO [facility] REHAB [id number] 03/16/2014 13:00:00 03/28/2014 00:01:00 DIS Outpatient XIOMY ALBERTO [facility] REHAB L SHOULDER SCOPE BICEPS TENOTOMY [id number] 12/27/2013 08:06:00 12/27/2013 13:00:00 DIS Outpatient LIDYA STARR MD [facility] SDC LEFT TORN ROTATOR CUFF [id number] 12/20/2013 10:29:00 12/20/2013 23:59:59 CLS Outpatient LIDYA STARR MD [facility] PREOP LEFT TORN ROTATOR CUFF [id number] 08/18/2013 15:40:00 08/18/2013 23:59:59 CLS Outpatient XIOMY ALBERTO [facility] RAD ROTATOR CUFF TEAR [id number] 11/29/2012 13:48:00 01/19/2013 13:30:00 DIS Outpatient XIOMY ALBERTO [facility] REHAB L FROZEN SHOULDER AND TORN RTC [id number] 12/16/2017 12:05:00 Document Registration [id number] 12/24/2014 02:47:06 ACT Document Registration [id number] 11/09/2016 15:10:47 11/09/2016 23:59:59 CLS Outpatient
== END | disposition home or self-care (01) ==
LOC: SDC 10:15
PROVIDERS: ATTEND Surgery
DX: K94.23 Gastrostomy malfunction (principal); I69.351 Hemiplegia and hemiparesis following cerebral infarction affecting right dominant side; I69.391 Dysphagia following cerebral infarction; E46 Unspecified protein-calorie malnutrition

== ENCOUNTER 2018-07-30 18:08 | Emergency (ER) | payer MEDICARE, MEDICAID ==
[~2018-07-30] VITALS: Ht 157.5 cm; Wt 74.4 kg
[~2018-07-30 18:08] MED LIST changes: -RIVA20TA PEG; +RIVA20TA2 PEG
--- NOTE | 2018-07-30 18:21 | ED GI ---
General Chief Complaint: Catheter/Drain/Tube Problems Stated Complaint: PEG TUBE ISSUES Source of Information: EMS, Skilled Nursing Records Exam Limitations: Language Barrier, Physical Impairments History of Present Illness Date Seen by Provider: July 30, 2018 Time Seen by Provider: 18:18 Initial Comments To ER per EMS from medical [place] front neck with reports of possible dysfunctioning PEG tube. Patient had a loose bowel movement yesterday, had an enema after that, abdomen seems distended, longterm staff states that he had a lot of liquid coming out of her PEG tube today. History of CVA with expressive Aphasia, Dysphagia requiring PEG tube feeds. She is nonverbal, bedridden and contractured. Timing/Duration: 1-2 Days Severity/Quality: Other Location: Epigastric Radiation: No Radiation Activities at Onset: None Associated Symptoms: No Nausea/Vomiting Allergies and Home Medications Allergies Coded Allergies: morphine (Verified Adverse Reaction, Mild, NAUSEA, 04/26/16) Home Medications Baclofen 10 Mg Tablet, 10 MG PEG TID, (Reported) Bisacodyl 10 Mg Supp.rect, 10 MG RC DAILY PRN for CONSTIPATION-1ST LINE, ( Reported) Carvedilol 3.125 Mg Tablet, 3.125 MG PEG DAILY, (Reported) Citalopram Hydrobromide 20 Mg Tablet, 20 MG PEG HS, (Reported) Cyanocobalamin (Vitamin B-12) 1,000 Mcg Tablet, 1,000 MCG PEG HS, (Reported) Fentanyl 1 Each Patch.td72, 100 MCG TD Q72H, (Reported) Fentanyl 1 Each Patch.td72, 25 MCG TD Q72H, (Reported) Hydrochlorothiazide 25 Mg Tablet, 25 MG PEG DAILY, (Reported) Hydrocodone/Acetaminophen 1 Each Tablet, 1 TAB PEG BID, (Reported) Hyoscyamine Sulfate 0.125 Mg Tablet, 0.125 MG PEG Q4H PRN for increased secretions, (Reported) Hyoscyamine Sulfate 0.125 Mg Tablet, 0.125 MG PEG TID, (Reported) Insulin Detemir 100 Unit/1 Ml Insuln.pen, 10 UNIT SQ BID, (Reported) Lisinopril 20 Mg Tablet, 20 MG PEG DAILY, (Reported) Lorazepam 2 Mg/1 Ml Oral.conc, 0.25 MG PEG q2hr PRN for ANXIETY, (Reported) Nut.tx.gluc.intoler,Lac-Fr,Soy 237 Ml Liquid, 273 ML PEG QID, (Reported) @ 0600, 1100, 1600, & 2000 Nystatin 1 Each Powder.ea., TP BID, (Reported) APPLIES TO BOTH BREASTS AND ABDOMINAL FOLD Ranitidine HCl 150 Mg Tablet, 150 MG PEG BID, (Reported) Patient Home Medication List Home Medication List Reviewed: Yes Review of Systems Review of Systems Constitutional: see HPI EENTM: No Symptoms Reported Respiratory: No Symptoms Reported Cardiovascular: No Symptoms Reported Gastrointestinal: See HPI, Abdominal Pain; Denies Constipated, Denies Diarrhea , Denies Nausea, Denies Vomiting Genitourinary: No Symptoms Reported Musculoskeletal: no symptoms reported Skin: no symptoms reported Psychiatric/Neurological: No Symptoms Reported Endocrine: No Symptoms Reported Hematologic/Lymphatic: No Symptoms Reported Past Yjthnaj-Autfoh-Xbrswb Hx Patient Social History Recent Foreign Travel: No Contact w/Someone Who Travel: No Recent Hopitalizations: No Immunizations Up To Date Tetanus Booster (TDap): Unknown PED Vaccines UTD: No Date of Pneumonia Vaccine: Nov 19, 2013 Date of Influenza Vaccine: Jan 03, 2017 Seasonal Allergies Seasonal Allergies: Yes Past Medical History Abdominal, Cardiac, Section, Hysterectomy, Oophorectomy, Orthopedic, Tonsillectomy Currently Using CPAP: No Currently Using BIPAP: No Atrial Fibrillation, Coronary Artery Disease, Hypertension Neuropathy, Stroke Reproductive Disorders: Yes (ENDOMETRIAL CA) UTI-Chronic Gastroesophageal Reflux, Barrios's Esophagus, Diverticulosis, Polyps, Esophagitis, Hiatal Hernia Arthritis Diabetes, Insulin dep Cataract, Glaucoma Loss of Vision: Denies Uterine Anxiety, Depression Family Medical History Patient reports no known family medical history. Stroke Physical Exam Vital Signs Vital Signs - First Documented 07/30/18 18:26 Temp 99.0 Pulse 69 Resp 16 B/P (MAP) 113/46 (68) Pulse Ox 99 O2 Delivery Nasal Cannula O2 Flow Rate 3.00 Capillary Refill : Height/Weight/BMI Height: 5'2.00" Weight: 164lbs. 0.0oz. 74.553460hm; 30.0 BMI Method:Stated General Appearance: WD/WN, no apparent distress Neck: non-tender, full range of motion Respiratory: no respiratory distress, no accessory muscle use Gastrointestinal: abnormal bowel sounds (hypoactive), tenderness, other (firm) Extremities: other (contractured) Neurologic/Psychiatric: alert, other (aphasic, eyes are open shakes her head yes and no to questions but does not communicate verbally) Skin: normal color, warm/dry Progress/Results/Core Measures Results/Orders Lab Results Laboratory Tests Test 07/30/18 18:35 Range/Units White Blood Count 7.6 4.3-11.0 10^3/uL Red Blood Count 3.68 L 4.35-5.85 10^6/uL Hemoglobin 11.6 11.5-16.0 G/DL Hematocrit 37 35-52 % Mean Corpuscular Volume 100 H 80-99 FL Mean Corpuscular Hemoglobin 32 25-34 PG Mean Corpuscular Hemoglobin Concent 32 32-36 G/DL Red Cell Distribution Width 11.9 10.0-14.5 % Platelet Count 144 130-400 10^3/uL Mean Platelet Volume 13.0 H 7.4-10.4 FL Neutrophils (%) (Auto) 63 42-75 % Lymphocytes (%) (Auto) 23 12-44 % Monocytes (%) (Auto) 9 0-12 % Eosinophils (%) (Auto) 5 0-10 % Basophils (%) (Auto) 0 0-10 % Neutrophils # (Auto) 4.8 1.8-7.8 X 10^3 Lymphocytes # (Auto) 1.8 1.0-4.0 X 10^3 Monocytes # (Auto) 0.7 0.0-1.0 X 10^3 Eosinophils # (Auto) 0.4 H 0.0-0.3 10^3/uL Basophils # (Auto) 0.0 0.0-0.1 10^3/uL Sodium Level 139 135-145 MMOL/L Potassium Level 4.5 3.6-5.0 MMOL/L Chloride Level 96 L 98-107 MMOL/L Carbon Dioxide Level 33 H 21-32 MMOL/L Anion Gap 10 5-14 MMOL/L Blood Urea Nitrogen 23 H 7-18 MG/DL Creatinine 0.69 0.60-1.30 MG/DL Estimat Glomerular Filtration Rate > 60 BUN/Creatinine Ratio 33 Glucose Level 128 H 70-105 MG/DL Calcium Level 9.6 8.5-10.1 MG/DL Corrected Calcium 9.8 8.5-10.1 MG/DL Total Bilirubin 0.4 0.1-1.0 MG/DL Aspartate Amino Transf (AST/SGOT) 15 5-34 U/L Alanine Aminotransferase (ALT/SGPT) 11 0-55 U/L Alkaline Phosphatase 78 40-136 U/L Total Protein 6.7 6.4-8.2 GM/DL Albumin 3.7 3.2-4.5 GM/DL Lipase 15 8-78 U/L My Orders Orders - JAME PAGAN APRN Ct Abdomen/Pelvis Wo (07/30/18 18:15) Cbc With Automated Diff (07/30/18 18:15) Comprehensive Metabolic Panel (07/30/18 18:15) Lipase (07/30/18 18:15) Diatrizoate Meglum/Sodium 37% (Gastrogra (07/30/18 19:45) Vital Signs/I&O 07/30/18 18:26 Temp 99.0 Pulse 69 Resp 16 B/P (MAP) 113/46 (68) Pulse Ox 99 O2 Delivery Nasal Cannula O2 Flow Rate 3.00 Departure Communication (Admissions) She does have both a 100 g per hour fentanyl patch and a 75 g per hour fentanyl patch as well. 1934-while being transferred from the patient cart to the CT table, the PEG tube became dislodged, the balloon appears to have collapsed. This old PEG tube was thrown aside and a new PEG tube was placed contrast was then given through the new PEG tube prior to obtaining the CT. Impression Primary Impression: PEG tube malfunction Disposition: SNF Condition: Stable Departure-Patient Inst. Decision time for Depature: 19:36 Referrals: EVA LORENZO MD (PCP/Family) Primary Care Physician Patient Instructions: How to Care for Your PEG Tube Add. Discharge Instructions: All discharge instructions reviewed with patient and/or family. Voiced understanding. JAME PAGAN APRN July 30, 2018 18:21
[2018-07-30 18:44] LABS: BASOPHILS % (AUTO) 0 % (0-10); EOSINOPHILS # (AUTO) 0.4 10^3/uL (0.0-0.3); EOSINOPHILS % (AUTO) 5 % (0-10); HEMATOCRIT 37 % (35-52); HEMOGLOBIN 11.6 G/DL (11.5-16.0); LYMPHOCYTES # (AUTO) 1.8 X 10^3 (1.0-4.0); LYMPHOCYTES % (AUTO) 23 % (12-44); MEAN CORPUSCULAR HEMOGLOBIN 32 PG (25-34); MEAN CORPUSCULAR HGB CONC 32 G/DL (32-36); MEAN CORPUSCULAR VOLUME 100 FL (80-99); MONOCYTES # (AUTO) 0.7 X 10^3 (0.0-1.0); MONOCYTES % (AUTO) 9 % (0-12); NEUTROPHILS # (AUTO) 4.8 X 10^3 (1.8-7.8); NEUTROPHILS % (AUTO) 63 % (42-75); PLATELET COUNT 144 10^3/uL (130-400); RED CELL DISTRIBUTION WIDTH 11.9 % (10.0-14.5); WHITE BLOOD COUNT 7.6 10^3/uL (4.3-11.0)
[2018-07-30 19:03] LABS: ALANINE AMINOTRANSFERASE 11 U/L (0-55); ALBUMIN 3.7 GM/DL (3.2-4.5); ALKALINE PHOSPHATASE 78 U/L (40-136); BILIRUBIN,TOTAL 0.4 MG/DL (0.1-1.0); BUN/CREATININE RATIO 33; CALCIUM 9.6 MG/DL (8.5-10.1); CHLORIDE 96 MMOL/L (98-107); CREATININE SERUM 0.69 MG/DL (0.60-1.30); GFR ESTIMATED > 60; GLUCOSE 128 MG/DL (70-105); LIPASE 15 U/L (8-78); POTASSIUM 4.5 MMOL/L (3.6-5.0); SODIUM 139 MMOL/L (135-145); TOTAL PROTEIN 6.7 GM/DL (6.4-8.2)
[2018-07-30 19:12] LABS: CARBON DIOXIDE 33 MMOL/L (21-32)
[2018-07-30] MEDS ORDERED: DIATRIZOATE MEGLUM/SODIUM 37% 120 ML (GASTROGRAFIN) PO ONE (19:45)
--- NOTE | 2018-07-30 19:46 | Diagnostic Imaging Report ---
INDICATION: Uncertain PEG tube location CT of the abdomen and pelvis obtained without IV contrast. Contrast was injected through the indwelling PEG tube. The visualized portions of the lung bases demonstrate dependent atelectatic changes in the lung bases. There is no pleural fluid collection or free intraperitoneal air. The liver shows no focal lesion. Gallbladder is mildly distended but shows no stones. The spleen, adrenals, and pancreas appear normal. There is a nonocclusive stone in the left kidney. The right kidney appears normal. There is no retroperitoneal mass or adenopathy. There is no ascites or abnormal fluid collection. There is a left inguinal hernia without obstruction. Bowel loops are nondilated. There is a PEG tube in place with its anchor balloon inflated in the mid stomach in good position. No extravasation of injected contrast is seen. IMPRESSION: PEG tube is seen with its anchor balloon in the mid stomach in good position. There is no extravasation of the injected contrast or evidence of bowel obstruction. There is a left inguinal hernia without obstruction. There is bibasilar atelectasis. There is a nonocclusive stone in the left kidney. Dictated by: Dictated on workstation # [id number]
[2018-07-30 20:07] VITALS: BP 127/59
== END 2018-07-30 20:22 ==
LOC: EDUNIT# 18:08 → ER 18:10
DX: K94.23 Gastrostomy malfunction (principal); I48.91 Unspecified atrial fibrillation; I25.10 Atherosclerotic heart disease of native coronary artery without angina pectoris; I10 Essential (primary) hypertension; E11.40 Type 2 diabetes mellitus with diabetic neuropathy, unspecified; K21.9 Gastro-esophageal reflux disease without esophagitis; F41.9 Anxiety disorder, unspecified; F32.9 Major depressive disorder, single episode, unspecified; Z86.010 Personal history of colon polyps; Z87.19 Personal history of other diseases of the digestive system; Z87.440 Personal history of urinary (tract) infections; Z88.5 Allergy status to narcotic agent; Z86.73 Personal history of transient ischemic attack (TIA), and cerebral infarction without residual deficits; Z79.4 Long term (current) use of insulin; Z98.890 Other specified postprocedural states; Z90.710 Acquired absence of both cervix and uterus; Z90.89 Acquired absence of other organs
CPT/HCPCS: 36415; 74176; 80053; 83690; 85025

== ENCOUNTER 2018-08-09 09:54 | Emergency (ER) | payer MEDICARE, MEDICAID ==
[~2018-08-09] VITALS: Ht 129.5 cm; Wt 78.2 kg
--- OUTSIDE RECORDS SUMMARY | 2018-08-09 10:01 | XMS REPORT | Clinical Summary ---
Author Author [facility] Organization [facility] Address Unknown Phone Unavailable Care Team Providers Care Adjunct Teacher Name Role Phone No Pcp, Na PCP Unavailable Teena Pang JOB RECRUITER Unavailable Karmen Martinez RN Unavailable Unavailable Source Comments Some departments are not documenting in the electronic medical record. If you d o not see the information that you expected, contact Release of Information in [facility] Information Management department at [phone] for further assistan ce in locating additional records.[facility] Allergies Comments Active Allergy Reactions Severity Noted Date Morphine NAUSEA AND Low 09/13/2014 VOMITING Medications End Date Status Medication Sig Dispensed Refills Start Date Active calcium carbonate/vitamin Take 1 Tab by 0 D-3 (OSCAL-500+D) 1250 mouth daily. mg/200 unit tablet Calcium Carb 1250mg delivers 500mg elemental Ca Active hydrochlorothiazide Take 25 mg by 0 (HYDRODIURIL) 25 mg mouth daily. tablet Active lisinopril (PRINIVIL; Take 20 mg by 0 ZESTRIL) 20 mg tablet mouth daily. Active Calcium Carbonate 600 mg Take 1 Tab by 0 (1,500 mg) tab mouth daily. Active albuterol (VENTOLIN HFA, Inhale 2 0 PROAIR HFA) 90 Puffs by mcg/actuation inhaler mouth every 6 hours as needed for Wheezing. Active Bradshaw-3 Fatty Take 3 Caps 0 Acids-Vitamin E (FISH by mouth OIL) 1,000 mg cap daily. Active Fluticasone Furoate 27.5 Apply 2 0 mcg/actuation spsn Sprays to each nostril as directed daily. Active lidocaine (LIDODERM) 5 % for pain at 30 Patch 1 topical patch peg site 5 Active carvedilol (COREG) 3.125 1 Tab twice 180 Tab 3 mg tablet daily. 5 Administer per feeding tube Active citalopram (CELEXA) 40 mg Take 1 Tab 90 Tab 3 tablet via feeding 5 tube daily. Active furosemide (LASIX) 20 mg 1 Tab daily 90 Tab 3 tablet as needed 5 (swelling). Administer per feeding tube Active ranitidine(+) (ZANTAC) Take 1 Tab 180 Tab 3 150 mg tablet via feeding 5 tube daily as needed for Heartburn. Active pravastatin (PRAVACHOL) Take 1 Tab 90 Cap 3 40 mg tablet via feeding 5 tube daily. Active guaiFENesin (ROBITUSSIN) 20 mL every 6 1 Bottle 0 100 mg/5 mL oral solution hours as 5 needed. Administer per feeding tube Active enoxaparin (LOVENOX) 100 Inject 1 mL 1 mg syrg into area(s) 5 as directed twice daily. Active insulin glargine (LANTUS Inject 7 3 box 3 SOLOSTAR) 100 unit/mL (3 Units into 5 mL) injection PEN area(s) as directed at bedtime daily. Active insulin regular (NOVOLIN Inject 1-7 10 mL 0 R) 100 unit/mL injection Units into 5 area(s) as directed every 6 hours. Active Problems Problem Noted Date Labored breathing 09/18/2014 Obesity, Class III, BMI 40-49.9 (morbid obesity) 09/18/2014 Acute ischemic stroke 09/13/2014 Respiratory failure 09/13/2014 S/P administration of tPA (rtPA) in a different facility within the last 24 09/13/2014 hours prior to admission to current facility DM (diabetes mellitus) 09/13/2014 HTN (hypertension) 09/13/2014 Resolved Problems Problem Noted Date Resolved Date On mechanically assisted ventilation 09/13/2014 09/18/2014 Epistaxis 09/13/2014 09/18/2014 Family History [...] Comments Brother Father Mother Sister Social History Date Tobacco Use Types Packs/Day Years Used Former Smoker Sex Assigned at Date Recorded Not on file Industry Job Start Date Occupation Not on file Not on file Not on file Travel End Travel History Travel Start No recent travel history available. Last Filed Vital Signs Time Taken Vital Sign Reading 09/21/2014 10:29 AM CDT Blood Pressure 133/62 09/21/2014 12:30 PM CDT Pulse 88 09/21/2014 10:29 AM CDT Temperature 36.8 C (98.2 F) - Respiratory Rate - 09/21/2014 12:30 PM CDT Oxygen Saturation 95% - Inhaled Oxygen - Concentration 09/20/2014 1:00 AM CDT Weight 100.3 kg (221 lb 1.9 oz) 09/13/2014 1:51 PM CDT Height 157.5 cm (5' 2") 09/13/2014 1:51 PM CDT Body Mass Index 40.44 Plan of Treatment Health Maintenance Due Date Last Done Comments HEPATITIS C SCREENING 1951 PHYSICAL (COMPREHENSIVE) 11/07/1958 EXAM DTAP/TDAP VACCINES (1 - 11/07/1969 Tdap) BREAST CANCER SCREENING 1991 COLORECTAL CANCER 11/07/2001 SCREENING SHINGLES RECOMBINANT 11/07/2001 VACCINE (1 of 2) OSTEOPOROSIS 11/07/2016 SCREENING/MONITORING PNEUMONIA (PCV13/PPSV23) 11/07/2016 VACCINES (1 of 2 - PCV13) INFLUENZA VACCINE 12/20/2018 Results Not on filefrom Last 3 Months Insurance Type Payer Benefit Subscriber ID Effective Phone Address Plan / Dates Group Medicare MEDICARE MEDICARE xxxxxxxxxx 2013-P PART A AND resent B Indemnity GENERIC COMMERCIAL GENERIC xxxxxxxxxx 2014-P COMMERCIAL resent Advance Directives Patient has advance care planning documents, and code status on file. For more i nformation, please contact: [facility] [address] [place] [address] Date Inactivated Comments Code Status Date Activated 09/21/2014 3:29 PM Full Code 09/13/2014 8:36 AM Provider has discussed Code Status No, more discussion w/Patient or Family? needed
--- OUTSIDE RECORDS SUMMARY | 2018-08-09 10:04 | XMS REPORT | CCD ---
Author Author [facility] Organization [facility] Address [address] [place] [address] Phone Care Team Providers Care Baffle Installer Name Role Phone PP Unavailable CCM Unavailable Summary Purpose Interface Exchange Insurance Providers Payer name Policy type / Coverage type Covered constitution party ID Effective Begin Date Effective End Date WPS Medicare Part B Medicare Part B [id number] Unknown Unknown Afghan Usp Life Insurance Medicare Part B [id number] Unknown Unknown Family history Father Diagnosis Age At Onset Arthritis Unknown Hypertension Unknown Mother Diagnosis Age At Onset Diabetes mellitus Type 2 Unknown Depression Unknown Arthritis Unknown Stroke Unknown Hypertension Unknown Sister Diagnosis Age At Onset Colon cancer Unknown Social History Social History Element Codes Description Effective Dates Marital status Unknown Maurice 01/07/2018 Living arrangements Unknown Correction [facility] 04/15/2017 Number of children Unknown 3 06/17/2015 Employment Unknown Retired 06/17/[address]: 6787236 Quit over 10 years ago 15+ 06/17/[address]: 745159714 Never drinks alcohol 06/17/2015 Allergies, Adverse Reactions, Alerts Substance Reaction Codes Entered Date Inactivated Date Status MORPHINE SULFATE emesis, RxNorm: 7052 06/17/2015 No Inactive Date Active Past Medical History Illness Codes Condition Status Onset Date Resolved Date Chronic pain syndrome ICD- 9: 338.4 ICD-10: G89.4 Active 01/07/2018 Unknown Encounter for palliative care ICD-9: V66.7 ICD-10: Z51.5 Active 07/13/2018 Unknown Essential (primary) hypertension ICD-9: 401.1 ICD-10: I10 Active 07/13/2018 Unknown Type 2 diabetes mellitus without complications ICD-9: 250.00 ICD-10: E11.9 Active 2017 Unknown 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 Active 06/16/2015 Unknown Dysphagia following cerebral infarction ICD-9: 438.82 ICD-10: I69.391 Active 07/17/2015 Unknown Essential (primary) hypertension ICD-9: 401.9 ICD-10: I10 Active 07/17/2015 Unknown Cough ICD-9: 786.2 ICD-10: R05 Active 03/18/2018 Unknown Pain in right knee ICD- 9: 719.46 ICD-10: M25.561 Active 09/09/2017 Unknown Pneumonia, unspecified organism ICD-9: 486 ICD-10: J18.9 Active 03/18/2018 Unknown Diabetes Unknown Active 2017 Unknown Pain in left knee ICD-9: 719.46 ICD-10: M25.562 Active 09/09/2017 Unknown Pain in left shoulder ICD- 9: 719.41 ICD-10: M25.512 Active 09/09/2017 Unknown Pain in right shoulder [...] ICD-9: 723.1 ICD-10: M54.2 Active 07/17/2015 Unknown Impacted cerumen, right ear ICD-9: 389.8 ICD-10: H61.21 Active 07/17/2015 Unknown Hyperlipidemia Unknown Active 06/17/2015 Unknown Hypertension Unknown Active 06/17/2015 Unknown Stroke Unknown Active 06/17/2015 Unknown 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 Active 06/16/2015 Unknown Ataxia following cerebral infarction ICD-9: 438.84 ICD-10: I69.393 Active 06/16/2015 Unknown Candidal esophagitis ICD- 9: 112.84 ICD-10: B37.81 Active 06/16/2015 Unknown Gastrostomy status ICD- 9: V44.1 ICD-10: Z93.1 Active 06/16/2015 Unknown Problems Condition Codes Effective Dates Condition Status Chronic pain syndrome ICD- 9: 338.4 ICD-10: G89.4 01/07/2018 Active Encounter for palliative care ICD-9: V66.7 ICD-10: Z51.5 07/13/2018 Active Essential (primary) hypertension ICD-9: 401.1 ICD-10: I10 07/13/2018 Active Type 2 diabetes mellitus without complications ICD-9: 250.00 ICD-10: E11.9 2017 Active 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 06/16/2015 Active Dysphagia following cerebral infarction ICD-9: 438.82 ICD-10: I69.391 07/17/2015 Active Essential (primary) hypertension ICD-9: 401.9 ICD-10: I10 07/17/2015 Active Cough ICD-9: 786.2 ICD-10: R05 03/18/2018 Active Pain in right knee ICD- 9: 719.46 ICD-10: M25.561 09/09/2017 Active Pneumonia, unspecified organism ICD-9: 486 ICD-10: J18.9 03/18/2018 Active Diabetes Unknown 2017 Active Pain in left knee ICD-9: 719.46 ICD-10: M25.562 09/09/2017 Active Pain in left shoulder ICD- 9: 719.41 ICD-10: M25.512 09/09/2017 Active Pain in right shoulder ICD-9: 719.41 ICD-10: M25.511 09/09/2017 Active Type 2 diabetes mellitus with hyperglycemia ICD-9: 250.02 ICD-10: E11.65 06/16/2015 Active Low back pain ICD-9: 724.2 ICD-10: M54.5 02/16/2017 Active 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 11/09/2016 Active Urinary tract infection, site not specified ICD-9: 599.0 ICD-10: N39.0 09/17/2016 Active Cervicalgia ICD-9: 723.1 ICD-10: M54.2 07/17/2015 Active Impacted cerumen, right ear ICD-9: 389.8 ICD-10: H61.21 07/17/2015 Active Hyperlipidemia Unknown 06/17/2015 Active Hypertension Unknown 06/17/2015 Active Stroke Unknown 06/17/2015 Active 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 06/16/2015 Active Ataxia following cerebral infarction ICD-9: 438.84 ICD-10: I69.393 06/16/2015 Active Candidal esophagitis ICD- 9: 112.84 ICD-10: B37.81 06/16/2015 Active Gastrostomy status ICD- 9: V44.1 ICD-10: Z93.1 06/16/2015 Active Medications Medication Codes Instructions Start Date Stop Date Status Fill Instructions baclofen 10 mg tablet RxNorm: 814117 Tablet(s) TAKE 1 TABLET THREE TIMES DAILY VIA STOMACH TUBE 08/08/2018 01/04/2019 Active 10/07/2017 5:36:15 PM 10/07/2017 5:36:13 PM N O T I C E Last quantity doesn't match original quantity fentanyl 100 mcg/hr transdermal patch RxNorm: 167750 1 Patch TD Q72H 08/01/2018 08/30/2018 Active hydrocodone 10 mg-acetaminophen 325 mg tablet RxNorm: 730335 2 Tablet(s) PO scheduled TID 08/01/2018 08/15/2018 Active Not to exceed 3gm/24hr acetaminophen hyoscyamine 0.125 mg disintegrating tablet RxNorm: 0944299 Tablet(s) Tablet(s) 1-2 Tablet(s) PO Q8 as needed 08/01/2018 No Stop Date Active Duragesic 75 mcg/hr transdermal patch RxNorm: 808278 1 Patch TD Q72H 08/01/2018 08/30/2018 Active hydrocodone 10 mg-acetaminophen 325 mg tablet RxNorm: 814915 2 Tablet(s) PO scheduled TID 07/19/2018 07/31/2018 Inactive Not to exceed 3gm/24hr acetaminophen lorazepam 0.5 mg tablet RxNorm: 686327 1 Tablet(s) PO BID and 1 tab q 6 hours prn 07/05/2018 No Stop Date Active Duragesic 75 mcg/hr transdermal patch RxNorm: 491437 1 Patch TD Q72H 07/05/2018 07/31/2018 Inactive fentanyl 100 mcg/hr transdermal patch RxNorm: 853472 1 Patch TD Q72H 07/05/2018 07/31/2018 Inactive hydrocodone 10 mg-acetaminophen 325 mg tablet RxNorm: 775195 2 Tablet(s) PO scheduled TID 07/05/2018 07/18/2018 Inactive Not to exceed 3gm/24hr acetaminophen hydrocodone 10 mg-acetaminophen 325 mg tablet RxNorm: 492972 2 Tablet(s) PO scheduled TID 06/22/2018 07/04/2018 Inactive Not to exceed 3gm/24hr acetaminophen citalopram 40 mg tablet RxNorm: 580878 1 Tablet(s) PO daily 06/20/2018 05/15/2019 Active Voltaren 1 % topical gel RxNorm: 178342 APPLY 4 GRAMS TO RIGHT KNEE FOUR TIMES DAILY 06/13/2018 07/06/2018 Inactive Generic For:VOLTAREN GEL 1% 06/13/2018 10:59:02 AM hydrocodone 10 mg-acetaminophen 325 mg tablet RxNorm: 582243 2 Tablet(s) PO scheduled TID 06/07/2018 06/21/2018 Inactive Not to exceed 3gm/24hr acetaminophen fentanyl 100 mcg/hr transdermal patch RxNorm: 338651 1 Patch TD Q72H 06/03/2018 07/02/2018 Inactive Duragesic 75 mcg/hr transdermal patch RxNorm: 570430 1 Patch TD Q72H 06/03/2018 07/02/2018 Inactive hyoscyamine 0.125 mg disintegrating tablet RxNorm: 1164668 Tablet(s) Tablet(s) 1-2 Tablet(s) PO Q8 as needed 05/27/2018 07/31/2018 Inactive lorazepam 0.5 mg tablet RxNorm: 849570 1 Tablet(s) PO BID and 1 tab q 6 hours prn 05/24/2018 No Stop Date Active hydrocodone 10 mg-acetaminophen 325 mg tablet RxNorm: 143374 2 Tablet(s) PO scheduled TID 05/24/2018 06/06/2018 Inactive Not to exceed 3gm/24hr acetaminophen citalopram 20 mg tablet RxNorm: 231016 1 Tablet(s) PO daily 05/17/2018 06/19/2018 Inactive hydrocodone 10 mg-acetaminophen 325 mg tablet RxNorm: 160332 2 Tablet(s) PO scheduled TID 04/19/2018 05/18/2018 Inactive Not to exceed 3gm/24hr acetaminophen lorazepam 0.5 mg tablet RxNorm: 987742 1 Tablet(s) PO BID and 1 tab q 6 hours prn 04/07/2018 05/23/2018 Inactive hyoscyamine 0.125 mg disintegrating tablet RxNorm: 9138246 Tablet(s) 1-2 Tablet(s) PO Q8 as needed 03/31/2018 05/26/2018 Inactive Duragesic 75 mcg/hr transdermal patch RxNorm: 625796 1 Patch TD Q72H 03/31/2018 04/29/2018 Inactive fentanyl 100 mcg/hr transdermal patch RxNorm: 476073 1 Patch TD Q72H 03/31/2018 04/29/2018 Inactive carvedilol 3.125 mg tablet RxNorm: 887709 Tablet(s) GIVE 1 TABLET VIA PEG TUBE 2 TIMES A DAY 03/30/2018 06/27/2018 Inactive Generic For:COREG 3.125MG 10/22/2017 9:23:30 AM Voltaren 1 % topical gel RxNorm: 696686 APPLY 4 GRAMS TO RIGHT KNEE FOUR TIMES DAILY 03/30/2018 04/22/2018 Inactive Generic For:VOLTAREN GEL 1% 03/30/2018 11:14:57 AM hydrocodone 10 mg-acetaminophen 325 mg tablet RxNorm: 493747 2 Tablet(s) PO scheduled TID 03/23/2018 04/18/2018 Inactive Not to exceed 3gm/24hr acetaminophen albuterol sulfate concentrate 5 mg/mL(0.5 %) solution for nebulization RxNorm: 012140 1 Vial Milliliter(s) INH TID PRN as needed congestion 03/18/2018 No Stop Date Active cefdinir 300 mg capsule RxNorm: 977100 1 Capsule(s) PO BID 03/18/2018 03/24/2018 Inactive Zithromax Z-Eliu 250 mg tablet RxNorm: 180145 Tablet(s) PO 03/18/2018 05/16/2018 Inactive Voltaren 1 % topical gel RxNorm: 443119 4 Gram(s) TOP QID 03/18/2018 03/29/2018 Inactive hydrochlorothiazide 25 mg tablet RxNorm: 293499 GIVE 1 TABLET VIA PEG TUBE ONCE DAILY 03/11/2018 09/06/2018 Active Generic For:HYDRODIURIL 25 MG TABLET 03/11/2018 9:15:32 AM fentanyl 100 mcg/hr transdermal patch RxNorm: 350531 1 Patch TD Q72H 03/02/2018 03/30/2018 Inactive Duragesic 75 mcg/hr transdermal patch RxNorm: 841931 1 Patch TD Q72H 03/02/2018 03/30/2018 Inactive hydrocodone 10 mg-acetaminophen 325 mg tablet RxNorm: 288552 2 Tablet(s) PO scheduled TID 02/18/2018 03/22/2018 Inactive Not to exceed 3gm/24hr acetaminophen hyoscyamine 0.125 mg disintegrating tablet RxNorm: 8347245 Tablet(s) 1-2 Tablet(s) PO Q8 as needed 02/08/2018 03/30/2018 Inactive fentanyl 100 mcg/hr transdermal patch RxNorm: 579173 1 Patch TD Q72H 02/04/2018 03/01/2018 Inactive hydrocodone 10 mg-acetaminophen 325 mg tablet RxNorm: 754605 2 Tablet(s) PO scheduled TID 02/04/2018 02/17/2018 Inactive Not to exceed 3gm/24hr acetaminophen Duragesic 75 mcg/hr transdermal patch RxNorm: 088696 1 Patch TD Q72H 02/04/2018 03/01/2018 Inactive Duragesic 75 mcg/hr transdermal patch RxNorm: 527697 1 Patch TD Q72H 01/07/2018 02/03/2018 Inactive Levemir FlexTouch U-100 Insulin 100 unit/mL (3 mL) subcutaneous pen RxNorm: 297813 4 Unit(s) SQ QHS 01/07/2018 07/13/2018 Inactive fentanyl 100 mcg/hr transdermal patch RxNorm: 386477 1 Patch TD Q72H 01/07/2018 02/03/2018 Inactive hydrocodone 10 mg-acetaminophen 325 mg tablet RxNorm: 640368 2 Tablet(s) PO scheduled TID 01/05/2018 02/03/2018 Inactive Not to exceed 3gm/24hr acetaminophen hydrocodone 10 mg-acetaminophen 325 mg tablet RxNorm: 255275 2 Tablet(s) PO scheduled TID and 1 tab q 4 as needed 01/04/2018 01/04/2018 Inactive Not to exceed 3gm/24hr acetaminophen cyanocobalamin (vit B-12) 1,000 mcg tablet RxNorm: 888207 1 Tablet(s) PO daily 12/28/2017 11/22/2018 Active baclofen 10 mg tablet RxNorm: 023580 Tablet(s) TAKE 1 TABLET THREE TIMES DAILY VIA STOMACH TUBE 12/27/2017 05/25/2018 Inactive 10/07/2017 5:36:15 PM 10/07/2017 5:36:13 PM N O T I C E Last quantity doesn't match original quantity Duragesic 75 mcg/hr transdermal patch RxNorm: 449166 1 Patch TD Q72H 12/22/2017 01/06/2018 Inactive fentanyl 100 mcg/hr transdermal patch RxNorm: 462681 1 Patch TD Q72H 12/22/2017 01/06/2018 Inactive hydrocodone 10 mg-acetaminophen 325 mg tablet RxNorm: 755551 2 Tablet(s) PO scheduled TID and 1 tab q 4 as needed 12/20/2017 01/03/2018 Inactive Not to exceed 3gm/24hr acetaminophen hyoscyamine 0.125 mg disintegrating tablet RxNorm: 8215613 1-2 Tablet(s) PO Q8 as needed 12/14/2017 02/07/2018 Inactive Duragesic 75 mcg/hr transdermal patch RxNorm: 370652 1 Patch TD Q72H 12/06/2017 12/21/2017 Inactive fentanyl 100 mcg/hr transdermal patch RxNorm: 919211 1 Patch TD Q72H 12/06/2017 12/21/2017 Inactive hydrocodone 10 mg-acetaminophen 325 mg tablet RxNorm: 926824 2 Tablet(s) PO scheduled TID and 1 tab q 4 as needed 11/29/2017 12/19/2017 Inactive Not to exceed 3gm/24hr acetaminophen Duragesic 75 mcg/hr transdermal patch RxNorm: 884677 1 Patch TD Q72H 11/11/2017 12/05/2017 Inactive hydrocodone 10 mg-acetaminophen 325 mg tablet RxNorm: 552852 2 Tablet(s) PO scheduled TID and 1 tab q 4 as needed 11/09/2017 11/28/2017 Inactive Not to exceed 3gm/24hr acetaminophen Levemir FlexTouch U-100 Insulin 100 unit/mL (3 mL) subcutaneous pen RxNorm: 936176 8 Unit(s) SQ QHS 11/09/2017 01/06/2018 Inactive fentanyl 100 mcg/hr transdermal patch RxNorm: 071668 1 Patch TD Q72H 2017 12/05/2017 Inactive hyoscyamine 0.125 mg disintegrating tablet RxNorm: 5279558 1-2 Tablet(s) PO Q8 as needed 11/03/2017 12/13/2017 Inactive carvedilol 3.125 mg tablet RxNorm: 451841 GIVE 1 TABLET VIA PEG TUBE 2 TIMES A DAY 10/22/2017 01/19/2018 Inactive Generic For:COREG 3.125MG 10/22/2017 9:23:30 AM hydrocodone 10 mg-acetaminophen 325 mg tablet RxNorm: 164752 2 Tablet(s) PO scheduled TID and 1 tab q 4 as needed 10/22/2017 2017 Inactive Not to exceed 3gm/24hr acetaminophen fentanyl 100 mcg/hr transdermal patch RxNorm: 071855 1 Patch TD Q72H 10/20/2017 11/07/2017 Inactive Duragesic 75 mcg/hr transdermal patch RxNorm: 487114 1 Patch TD Q72H 10/20/2017 11/10/2017 Inactive lorazepam 0.5 mg tablet RxNorm: 088019 1 Tablet(s) PO BID and 1 tab q 6 hours prn 10/18/2017 07/04/2018 Inactive baclofen 10 mg tablet RxNorm: 777990 TAKE 1 TABLET THREE TIMES DAILY VIA STOMACH TUBE 10/07/2017 12/26/2017 Inactive 10/07/2017 5:36:15 PM 10/07/2017 5:36:13 PM N O T I C E Last quantity doesn't match original quantity cranberry extract 500 mg tablet RxNorm: 1033790 1 Tablet(s) PO QAM 10/04/2017 01/31/2018 Inactive Cipro 500 mg tablet RxNorm: 331717 1 Tablet(s) PO BID 10/04/2017 10/03/2017 Inactive dc keflex hydrocodone 10 mg-acetaminophen 325 mg tablet RxNorm: 120330 2 Tablet(s) PO scheduled TID as needed 10/04/2017 10/21/2017 Inactive Not to exceed 3gm/24hr acetaminophen cranberry extract 500 mg tablet RxNorm: 9581504 1 Tablet(s) PO QAM 10/04/2017 10/03/2017 Inactive Cipro 500 mg tablet RxNorm: 114492 1 Tablet(s) PO BID 10/04/2017 10/10/2017 Inactive dc keflex Duragesic 75 mcg/hr transdermal patch RxNorm: 522012 1 Patch TD Q72H 09/20/2017 10/19/2017 Inactive fentanyl 100 mcg/hr transdermal patch RxNorm: 613164 1 Patch TD Q72H 09/20/2017 10/19/2017 Inactive hyoscyamine 0.125 mg disintegrating tablet RxNorm: 6365859 1 Tablet(s) PO TID and 1 Tablet Q4H prn increased secretions 09/15/2017 11/02/2017 Inactive hydrocodone 10 mg-acetaminophen 325 mg tablet RxNorm: 041482 2 Tablet(s) PO scheduled TID and 1-2 Tabs Q4H PRN pain 09/15/2017 10/03/2017 Inactive Not to exceed 3gm/24hr acetaminophen lorazepam 0.5 mg tablet RxNorm: 698709 1 Tablet(s) PO BID 09/15/2017 10/17/2017 Inactive Lexapro 10 mg tablet RxNorm: 104090 1 Tablet(s) PO daily 09/10/2017 09/14/2017 Inactive Levemir FlexTouch U-100 Insulin 100 unit/mL (3 mL) subcutaneous pen RxNorm: 652662 10 Unit(s) daily 09/09/2017 09/15/2017 Inactive lisinopril 10 mg tablet RxNorm: 737138 1 Tablet(s) PO daily 09/09/2017 05/16/2018 Inactive Duragesic 75 mcg/hr transdermal patch RxNorm: 786955 1 Patch TD Q72H 09/09/2017 09/19/2017 Inactive nystatin 100,000 unit/gram topical cream RxNorm: 476865 1 Gram(s) TOP TID until healed to gaulding 09/06/2017 07/12/2018 Inactive nystatin 100,000 unit/gram topical cream RxNorm: 725740 1 Gram(s) TOP TID until healed to gaulding 09/06/2017 09/05/2017 Inactive hydrocodone 10 mg-acetaminophen 325 mg tablet RxNorm: 822475 2 Tablet(s) PO scheduled TID as needed 08/31/2017 09/14/2017 Inactive Not to exceed 3gm/24hr acetaminophen fentanyl 100 mcg/hr transdermal patch RxNorm: 954751 1 Patch TD Q72H 08/24/2017 09/19/2017 Inactive fentanyl 50 mcg/hr transdermal patch RxNorm: 397919 1 Patch TD Q72H 08/24/2017 09/08/2017 Inactive fentanyl 25 mcg/hr transdermal patch RxNorm: 492688 1 Patch TD Q72H 08/24/2017 08/24/2017 Inactive hyoscyamine 0.125 mg disintegrating tablet RxNorm: 0996731 Tablet(s) 1-2 Tablet(s) PO Q8 as needed 08/23/2017 09/14/2017 Inactive hydrocodone 10 mg-acetaminophen 325 mg tablet RxNorm: 813746 1 Tablet(s) PO scheduled TID et Q6 hours as needed 08/18/2017 08/30/2017 Inactive Not to exceed 3gm/24hr acetaminophen hydrochlorothiazide 25 mg tablet RxNorm: 233496 GIVE 1 TABLET VIA PEG TUBE ONCE DAILY 08/17/2017 02/12/2018 Inactive Generic For:HYDRODIURIL 25 MG TABLET 08/17/2017 9:01:54 AM08/11/2017 10:12:00 AM lorazepam 0.5 mg tablet RxNorm: 113045 1/2 Tablet(s) PO BID 08/03/2017 09/14/2017 Inactive fentanyl 100 mcg/hr transdermal patch RxNorm: 393375 1 Patch TD Q72H 07/26/2017 08/23/2017 Inactive fentanyl 25 mcg/hr transdermal patch RxNorm: 268087 1 Patch TD Q72H 07/26/2017 08/23/2017 Inactive hydrocodone 10 mg-acetaminophen 325 mg tablet RxNorm: 249915 1 Tablet(s) PO scheduled TID et Q6 hours as needed 07/16/2017 08/14/2017 Inactive Not to exceed 3gm/24hr acetaminophen hyoscyamine 0.125 mg disintegrating tablet RxNorm: 7654307 Tablet(s) 1-2 Tablet(s) PO Q8 as needed 07/13/2017 08/01/2017 Inactive baclofen 10 mg tablet RxNorm: 739094 TAKE 1 TABLET THREE TIMES DAILY VIA STOMACH TUBE 07/12/2017 10/06/2017 Inactive 07/12/2017 9:04:08 AM N O T I C E Last quantity doesn't match original quantity lorazepam 0.5 mg tablet RxNorm: 584511 1/2 Tablet(s) PO BID 07/02/2017 08/02/2017 Inactive fentanyl 100 mcg/hr transdermal patch RxNorm: 170691 1 Patch TD Q72H 06/28/2017 07/25/2017 Inactive fentanyl 25 mcg/hr transdermal patch RxNorm: 155675 1 Patch TD Q72H 06/28/2017 07/25/2017 Inactive hyoscyamine 0.125 mg disintegrating tablet RxNorm: 1652212 Tablet(s) 1-2 Tablet(s) PO Q8 as needed 06/03/2017 06/22/2017 Inactive fentanyl 25 mcg/hr transdermal patch RxNorm: 572559 1 Patch TD Q72H 05/26/2017 06/24/2017 Inactive Levemir FlexTouch U-100 Insulin 100 unit/mL (3 mL) subcutaneous pen RxNorm: 761674 20 Unit(s) SQ BID 05/26/2017 09/08/2017 Inactive fentanyl 100 mcg/hr transdermal patch RxNorm: 054459 1 Patch TD Q72H 05/26/2017 06/24/2017 Inactive hydrocodone 10 mg-acetaminophen 325 mg tablet RxNorm: 912284 1 Tablet(s) PO scheduled BID et Q6 hours as needed 05/12/2017 05/11/2017 Inactive hydrocodone 10 mg-acetaminophen 325 mg tablet RxNorm: 472459 1 Tablet(s) PO scheduled TID et Q6 hours as needed 05/12/2017 06/10/2017 Inactive Not to exceed 3gm/24hr acetaminophen docusate sodium 100 mg tablet RxNorm: 3848313 1 Tablet(s) PO BID as needed if no bowel movement 05/10/2017 05/09/2017 Inactive lisinopril 20 mg tablet RxNorm: 848478 1 Tablet(s) PO daily 05/10/2017 09/08/2017 Inactive docusate sodium 100 mg tablet RxNorm: 8776764 1 Tablet(s) PO BID as needed if no bowel movement 05/10/2017 09/14/2017 Inactive fentanyl 25 mcg/hr transdermal patch RxNorm: 587279 1 Patch TD Q72H 05/03/2017 05/25/2017 Inactive lorazepam 0.5 mg tablet RxNorm: 715651 1/2 Tablet(s) PO BID 05/03/2017 07/01/2017 Inactive fentanyl 100 mcg/hr transdermal patch RxNorm: 272300 1 Patch TD Q72H 04/27/2017 05/25/2017 Inactive carvedilol 3.125 mg tablet RxNorm: 889899 Tablet(s) GIVE 1 TABLET VIA PEG TUBE DAILY 04/15/2017 10/21/2017 Inactive Levemir FlexTouch 100 unit/mL (3 mL) subcutaneous insulin pen RxNorm: 115212 10 Unit(s) SQ BID 04/15/2017 2017 Inactive hyoscyamine 0.125 mg disintegrating tablet RxNorm: 7068340 1-2 Tablet(s) PO Q8 as needed 04/14/2017 05/03/2017 Inactive hydrocodone 10 mg-acetaminophen 325 mg tablet RxNorm: 151343 1 Tablet(s) PO scheduled BID et Q6 hours as needed 04/13/2017 05/02/2017 Inactive baclofen 10 mg tablet RxNorm: 125994 TAKE 1 TABLET THREE TIMES DAILY VIA STOMACH TUBE 04/08/2017 05/22/2017 Inactive 04/08/2017 9:32:07 AM fentanyl 25 mcg/hr transdermal patch RxNorm: 391978 1 Patch TD Q72H 04/05/2017 05/02/2017 Inactive lidocaine 10 mg/mL (1 %) injection solution RxNorm: 7503368 1 Milliliter(s) Inj daily Mix with rocephin 03/31/2017 03/30/2017 Inactive Pt resides at [facility] lidocaine 10 mg/mL (1 %) injection solution RxNorm: 8726701 1 Milliliter(s) Inj daily Mix with rocephin 03/31/2017 04/06/2017 Inactive Pt resides at [facility] fentanyl 100 mcg/hr transdermal patch RxNorm: 576723 1 Patch TD Q72H 03/29/2017 04/26/2017 Inactive nystatin 100,000 unit/gram topical powder RxNorm: 954460 APPLY UNDER BREASTS TWICE DAILY FOR YEAST SKIN INFECTION AND APPLY TO UNDERARM AND ABDOMINAL FOLDS AND PERIAREA TWICE DAILY 03/29/2017 03/28/2017 Inactive 03/27/2017 9:12:50 AM nystatin 100,000 unit/gram topical powder RxNorm: 159347 APPLY UNDER BREASTS TWICE DAILY FOR YEAST SKIN INFECTION AND APPLY TO UNDERARM AND ABDOMINAL FOLDS AND PERIAREA TWICE DAILY 03/29/2017 09/14/2017 Inactive 03/29/2017 9:42:55 AM03/27/2017 9:12:50 AM hyoscyamine 0.125 mg disintegrating tablet RxNorm: 4703680 1-2 Tablet(s) PO Q8 as needed 03/08/2017 03/27/2017 Inactive fentanyl 25 mcg/hr transdermal patch RxNorm: 289649 1 Patch TD Q72H 03/02/2017 03/31/2017 Inactive hydrocodone 10 mg-acetaminophen 325 mg tablet RxNorm: 538195 1 Tablet(s) PO scheduled BID et Q6 hours as needed 02/17/2017 03/18/2017 Inactive fentanyl 100 mcg/hr transdermal patch RxNorm: 596029 1 Patch TD Q72H 02/17/2017 03/18/2017 Inactive Lexapro 10 mg tablet RxNorm: 537390 1 Tablet(s) PO daily 02/05/2017 04/14/2017 Inactive Lexapro 10 mg tablet RxNorm: 799126 1 Tablet(s) PO daily 02/05/2017 02/04/2017 Inactive fentanyl 25 mcg/hr transdermal patch RxNorm: 149261 1 Patch TD Q72H 02/04/2017 03/01/2017 Inactive cyanocobalamin (vit B-12) 1,000 mcg tablet RxNorm: 455795 1 Tablet(s) PO daily 01/18/2017 12/13/2017 Inactive hyoscyamine 0.125 mg disintegrating tablet RxNorm: 2671904 Tablet(s) 1-2 Tablet(s) PO Q8 as needed 01/18/2017 02/06/2017 Inactive baclofen 10 mg tablet RxNorm: 261815 TAKE 1 TABLET THREE TIMES DAILY VIA STOMACH TUBE 01/04/2017 02/17/2017 Inactive 01/04/2017 9:25:18 AM fentanyl 100 mcg/hr transdermal patch RxNorm: 924834 1 Patch TD Q72H 12/25/2016 01/23/2017 Inactive hydrochlorothiazide 25 mg tablet RxNorm: 149969 Tablet(s) GIVE 1 TABLET VIA PEG TUBE ONCE A DAY 12/14/2016 07/11/2017 Inactive fentanyl 100 mcg/hr transdermal patch RxNorm: 555254 1 Patch TD Q72H 11/25/2016 12/24/2016 Inactive hyoscyamine 0.125 mg disintegrating tablet RxNorm: 5341469 Tablet(s) 1-2 Tablet(s) PO Q8 as needed 11/25/2016 12/14/2016 Inactive nystatin 100,000 unit/gram topical powder RxNorm: 890250 APPLY UNDER BREASTS TWICE DAILY FOR YEAST SKIN INFECTION AND APPLY TO UNDERARM AND ABDOMINAL FOLDS AND PERIAREA TWICE DAILY 11/24/2016 01/22/2017 Inactive 11/24/2016 9:34:02 AM hydrocodone 10 mg-acetaminophen 325 mg tablet RxNorm: 369440 1 Tablet(s) PO scheduled BID et Q6 hours as needed 11/02/2016 12/01/2016 Inactive cyanocobalamin (vit B-12) 1,000 mcg tablet RxNorm: 655765 1 Tablet(s) PO daily 11/02/2016 01/17/2017 Inactive hyoscyamine 0.125 mg disintegrating tablet RxNorm: 5130162 1-2 Tablet(s) PO Q8 as needed 10/19/2016 11/24/2016 Inactive fentanyl 100 mcg/hr transdermal patch RxNorm: 860298 1 Patch TD Q72H 10/13/2016 11/11/2016 Inactive hydrocodone 10 mg-acetaminophen 325 mg tablet RxNorm: 249282 1 Tablet(s) PO scheduled BID et Q6 hours as needed 10/05/2016 11/01/2016 Inactive baclofen 10 mg tablet RxNorm: 734351 TAKE 1 TABLET THREE TIMES DAILY VIA STOMACH TUBE 10/01/2016 11/14/2016 Inactive 10/01/2016 9:24:37 AM carvedilol 3.125 mg tablet RxNorm: 254752 GIVE 1 TABLET VIA PEG TUBE 2 TIMES A DAY 09/30/2016 12/28/2016 Inactive Generic For:COREG 3.125MG 09/30/2016 1:12:28 PM09/25/2016 9:06:11 AM Probiotic Blend 2 million cell-50 mg capsule RxNorm: 1 Capsule(s) PO BID 09/17/2016 09/23/2016 Inactive Keflex 500 mg capsule RxNorm: 956152 1 Capsule(s) PO TID 09/17/2016 09/23/2016 Inactive hyoscyamine 0.125 mg/5 mL oral elixir RxNorm: 9839327 5 Milliliter(s) PO TID 09/08/2016 09/17/2016 Inactive hyoscyamine 0.125 mg/5 mL oral elixir RxNorm: 2445582 5 Milliliter(s) PO TID 09/08/2016 09/07/2016 Inactive hyoscyamine 0.125 mg disintegrating tablet RxNorm: 8809791 1-2 Tablet(s) PO Q8 as needed 09/07/2016 10/18/2016 Inactive fentanyl 100 mcg/hr transdermal patch RxNorm: 357906 1 Patch TD Q72H 09/01/2016 09/30/2016 Inactive ranitidine 150 mg tablet RxNorm: 872942 1 Tablet(s) PO BID 08/25/2016 No Stop Date Active hydrocodone 10 mg-acetaminophen 325 mg tablet RxNorm: 243381 1 Tablet(s) PO scheduled BID et Q6 hours as needed 08/24/2016 09/22/2016 Inactive cyanocobalamin (vit B-12) 1,000 mcg tablet RxNorm: 653384 1 Tablet(s) PO daily 08/12/2016 11/01/2016 Inactive cyanocobalamin (vit B-12) 1,000 mcg tablet RxNorm: 487913 1 Tablet(s) PO daily 08/12/2016 08/11/2016 Inactive hydrocodone 10 mg-acetaminophen 325 mg tablet RxNorm: 673000 1-2 Tablet(s) PO Q6 as needed 08/03/2016 08/17/2016 Inactive fentanyl 100 mcg/hr transdermal patch RxNorm: 253130 1 Patch TD Q72H 08/03/2016 08/31/2016 Inactive nystatin 100,000 unit/gram topical powder RxNorm: 766450 APPLY UNDER BREASTS TWICE DAILY FOR YEAST SKIN INFECTION AND APPLY TO UNDERARM AND ABDOMINAL FOLDS AND PERIAREA TWICE DAILY 07/17/2016 09/14/2016 Inactive 07/17/2016 3:56:54 PM fentanyl 100 mcg/hr transdermal patch RxNorm: 512379 1 Patch TD Q72H 07/15/2016 08/02/2016 Inactive lisinopril 20 mg tablet RxNorm: 733756 1 Tablet(s) PO daily 07/02/2016 03/28/2017 Inactive hydrocodone 10 mg-acetaminophen 325 mg tablet RxNorm: 448291 1-2 Tablet(s) PO Q6 as needed 07/01/2016 07/15/2016 Inactive Xarelto 20 mg tablet RxNorm: 8072733 Tablet(s) TAKE 1 TABLET VIA PEG TUBE AT BEDTIME 06/19/2016 04/14/2017 Inactive fentanyl 100 mcg/hr transdermal patch RxNorm: 850046 1 Patch TD Q72H 06/17/2016 07/14/2016 Inactive nystatin 100,000 unit/gram topical powder RxNorm: 521867 APPLY TO UNDER BREASTS TWICE DAILY FOR YEAST SKIN INFECTION AND APPLY TO UNDERARM AND ABDOMINAL FOLDS AND PERIAREA TWICE DAILY 06/15/2016 07/16/2016 Inactive Generic For:MYCOSTATIN 100,000 UNITS/GM PW 06/15/2016 12:28:26 PM fentanyl 100 mcg/hr transdermal patch RxNorm: 389056 1 Patch TD Q72H 06/05/2016 06/16/2016 Inactive hydrocodone 10 mg-acetaminophen 325 mg tablet RxNorm: 934752 1-2 Tablet(s) PO Q6 as needed 06/02/2016 06/16/2016 Inactive Probiotic Blend 2 million cell-50 mg capsule RxNorm: 1 Capsule(s) PO BID 05/13/2016 05/19/2016 Inactive nitrofurantoin 100 mg capsule RxNorm: 910553 1 Capsule(s) PO BID 05/13/2016 05/19/2016 Inactive nitrofurantoin 100 mg capsule RxNorm: 645619 1 Capsule(s) PO BID 05/13/2016 05/12/2016 Inactive fentanyl 75 mcg/hr transdermal patch RxNorm: 497574 1 Patch TD Q72H 05/13/2016 06/04/2016 Inactive Keflex 500 mg capsule RxNorm: 825004 1 Capsule(s) PO TID 05/07/2016 05/13/2016 Inactive Patient at F Keflex 500 mg capsule RxNorm: 360601 1 Capsule(s) PO TID 05/07/2016 05/06/2016 Inactive hydrocodone 10 mg-acetaminophen 325 mg tablet RxNorm: 657241 1-2 Tablet(s) PO Q6 as needed 05/04/2016 06/01/2016 Inactive hydrochlorothiazide 25 mg tablet RxNorm: 446599 Tablet(s) GIVE 1 TABLET VIA PEG TUBE ONCE A DAY 04/29/2016 11/24/2016 Inactive hydrochlorothiazide 25 mg tablet RxNorm: 006293 GIVE 1 TABLET VIA PEG TUBE ONCE A DAY 04/22/2016 04/28/2016 Inactive Generic For:HYDRODIURIL 25 MG TABLET refill request fentanyl 75 mcg/hr transdermal patch RxNorm: 336113 1 Patch TD Q72H 04/17/2016 05/12/2016 Inactive Xarelto 20 mg tablet RxNorm: 5273004 TAKE 1 TABLET VIA PEG TUBE AT BEDTIME 04/16/2016 06/14/2016 Inactive 04/16/2016 9:08:52 AM citalopram 40 mg tablet RxNorm: 672081 1 Tablet(s) PO daily 04/02/2016 02/25/2017 Inactive citalopram 40 mg tablet RxNorm: 446756 1 Tablet(s) PO daily 03/27/2016 04/01/2016 Inactive hydrocodone 10 mg-acetaminophen 325 mg tablet RxNorm: 048369 1-2 Tablet(s) PO Q6 as needed 03/27/2016 04/25/2016 Inactive fentanyl 75 mcg/hr transdermal patch RxNorm: 048587 1 Patch TD Q72H 03/18/2016 04/16/2016 Inactive hydrocodone 10 mg-acetaminophen 325 mg tablet RxNorm: 250283 1-2 Tablet(s) PO Q6 as needed 03/11/2016 03/26/2016 Inactive citalopram 40 mg tablet RxNorm: 480093 1 Tablet(s) PO daily 03/04/2016 03/26/2016 Inactive Levemir FlexTouch U-100 Insulin 100 unit/mL (3 mL) subcutaneous pen RxNorm: 692475 20 Unit(s) SQ BID 03/02/2016 09/27/2016 Inactive lisinopril 20 mg tablet RxNorm: 024366 1 Tablet(s) PO daily 02/25/2016 07/01/2016 Inactive Ativan 0.5 mg tablet RxNorm: 198131 1 Tablet(s) PO Q4H as needed 02/18/2016 04/14/2017 Inactive Xarelto 20 mg tablet RxNorm: 2006931 TAKE 1 TABLET VIA PEG TUBE AT BEDTIME 02/12/2016 04/11/2016 Inactive 02/12/2016 9:08:22 AM hydrocodone 10 mg-acetaminophen 325 mg tablet RxNorm: 117845 1-2 Tablet(s) PO Q6 as needed 02/12/2016 03/10/2016 Inactive fentanyl 75 mcg/hr transdermal patch RxNorm: 944573 1 Patch TD Q72H 02/11/2016 03/11/2016 Inactive citalopram 20 mg tablet RxNorm: 276417 1 Tablet(s) PO daily 01/28/2016 03/03/2016 Inactive fentanyl 75 mcg/hr transdermal patch RxNorm: 513939 1 TD Q72H 01/17/2016 02/10/2016 Inactive hydrocodone 10 mg-acetaminophen 325 mg tablet RxNorm: 237434 1-2 Tablet(s) PO Q6 as needed 01/07/2016 02/05/2016 Inactive fentanyl 50 mcg/hr transdermal patch RxNorm: 503611 1 TD Q72H 01/01/2016 01/16/2016 Inactive fentanyl 50 mcg/hr transdermal patch RxNorm: 900129 1 TD q 3 days 12/26/2015 12/31/2015 Inactive Xarelto 20 mg tablet RxNorm: 9966645 TAKE 1 TABLET VIA PEG TUBE AT BEDTIME 12/17/2015 02/11/2016 Inactive 12/16/2015 3:27:57 PM12/14/2015 9:45:17 AM hydrocodone 10 mg-acetaminophen 325 mg tablet RxNorm: 562531 1-2 Tablet(s) PO Q6 as needed 12/06/2015 01/04/2016 Inactive fentanyl 50 mcg/hr transdermal patch RxNorm: 629000 1 TD q 3 days 12/06/2015 12/25/2015 Inactive fentanyl 25 mcg/hr transdermal patch RxNorm: 436963 1 TD q 3 days 11/18/2015 12/05/2015 Inactive Zithromax Z-Eliu 250 mg tablet RxNorm: 450100 1 Tablet(s) PO UD 10/09/2015 02/26/2016 Inactive z pack as directed- please write out instructions- pt at [facility] nystatin 100,000 unit/gram topical powder RxNorm: 907802 APPLY TO UNDER BREASTS TWICE DAILY FOR YEAST SKIN INFECTION AND APPLY TO UNDERARM AND ABDOMINAL FOLDS AND PERIAREA TWICE DAILY 10/07/2015 12/05/2015 Inactive Generic For:MYCOSTATIN 100,000 UNITS/GM PW 10/05/2015 12:07:35 PM fentanyl 25 mcg/hr transdermal patch RxNorm: 169256 1 TD q 3 days 10/03/2015 11/01/2015 Inactive fentanyl 25 mcg/hr transdermal patch RxNorm: 744976 1 TD q 3 days 09/27/2015 10/02/2015 Inactive fentanyl 25 mcg/hr transdermal patch RxNorm: 640646 1 TD q 3 days 09/17/2015 09/26/2015 Inactive fentanyl 25 mcg/hr transdermal patch RxNorm: 871827 1 TD q 3 days 08/30/2015 09/16/2015 Inactive hydrocodone 5 mg-acetaminophen 325 mg tablet RxNorm: 227115 1 Tablet(s) PO Q6 as needed 08/30/2015 09/28/2015 Inactive Diflucan 100 mg tablet RxNorm: 453725 1 Tablet(s) Miscellaneous per peg daily 07/29/2015 08/04/2015 Inactive fentanyl 25 mcg/hr transdermal patch RxNorm: 229064 1 TD q 3 days 07/18/2015 08/29/2015 Inactive hydrocodone 5 mg-acetaminophen 325 mg tablet RxNorm: 381450 1 Tablet(s) PO Q6 as needed 07/18/2015 08/29/2015 Inactive Diflucan 100 mg tablet RxNorm: 522661 1 Tablet(s) Miscellaneous per peg daily 06/17/2015 06/23/2015 Inactive Senna-S 8.6 mg-50 mg tablet RxNorm: 438504 1 Tablet(s) PO daily as needed constipation No Start Date Active Dulcolax (bisacodyl) 10 mg rectal suppository RxNorm: 632296 1 Suppository RTL daily as needed constipation No Start Date Active polyethylene glycol 3350 17 gram/dose oral powder RxNorm: 132132 17 Gram(s) PO daily as needed constipation No Start Date Active baclofen 10 mg tablet RxNorm: 841452 1 Tablet(s) PO TID No Start Date 09/30/2016 Inactive Ativan 0.5 mg tablet RxNorm: 799945 1 Tablet(s) PO Q4H as needed No Start Date 02/17/2016 Inactive ranitidine 150 mg tablet RxNorm: 253977 1 Tablet(s) PO daily No Start Date 08/24/2016 Inactive carvedilol 3.125 mg tablet RxNorm: 307249 1 Tablet(s) PO daily No Start Date 09/29/2016 Inactive citalopram 40 mg tablet RxNorm: 465968 1 Tablet(s) PO daily No Start Date 01/27/2016 Inactive Probiotic Blend oral RxNorm: oral No Start Date 05/12/2016 Inactive hydrochlorothiazide 25 mg tablet RxNorm: 183382 1 Tablet(s) PO daily No Start Date 04/21/2016 Inactive albuterol sulfate concentrate 5 mg/mL(0.5 %) solution for nebulization RxNorm: 371512 1 Vial INH daily as needed congestion No Start Date 03/17/2018 Inactive Levemir FlexTouch 100 unit/mL (3 mL) subcutaneous insulin pen RxNorm: 584992 10 Unit(s) SQ BID No Start Date 03/01/2016 Inactive Zithromax Z-Eliu 250 mg tablet RxNorm: 802574 1 Tablet(s) PO UD No Start Date 10/08/2015 Inactive z pack as directed- please write out instructions- pt at [facility] nystatin 100,000 unit/gram topical powder RxNorm: 807313 Gram(s) TOP BID as needed No Start Date 10/06/2015 Inactive pravastatin 40 mg tablet RxNorm: 542960 Tablet(s) PO daily No Start Date 04/14/2017 Inactive lorazepam 0.5 mg tablet RxNorm: 970691 1/2 Tablet(s) PO BID No Start Date 05/02/2017 Inactive Xarelto 20 mg tablet RxNorm: 7443158 1 Tablet(s) PO daily No Start Date 12/16/2015 Inactive fentanyl 25 mcg/hr transdermal patch RxNorm: 258485 1 TD q 3 days No Start Date 07/17/2015 Inactive lisinopril 20 mg tablet RxNorm: 789960 1 Tablet(s) PO daily No Start Date 02/24/2016 Inactive hydrocodone 5 mg-acetaminophen 325 mg tablet RxNorm: 186637 1 Tablet(s) PO Q6 as needed No Start Date 07/17/2015 Inactive citalopram 40 mg tablet RxNorm: 295848 1 Tablet(s) PO daily No Start Date 03/03/2016 Inactive hyoscyamine 0.125 mg disintegrating tablet RxNorm: 8340122 1-2 Tablet(s) PO Q8 as needed No Start Date 09/06/2016 Inactive Medication Administered No Medication Administered data Immunizations No Immunization data Assessments Condition Codes Effective Dates Type 2 diabetes mellitus without complications ICD-10: E11.9 ICD-9: 250.00 07/13/2018 Essential (primary) hypertension ICD-10: I10 ICD-9: 401.1 07/13/2018 Chronic pain syndrome ICD-10: G89.4 ICD-9: 338.4 07/13/2018 Encounter for palliative care ICD-10: Z51.5 ICD-9: V66.7 07/13/2018 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 ICD-9: 438.82 05/17/2018 Essential (primary) hypertension ICD-10: I10 ICD-9: 401.9 05/17/2018 Cough ICD-10: R05 ICD-9: 786.2 03/18/2018 Pneumonia, unspecified organism ICD-10: J18.9 ICD-9: 486 03/18/2018 Pain in right knee ICD-10: M25.561 ICD-9: 719.46 03/18/2018 Pain in left knee ICD-10: M25.562 ICD-9: 719.46 09/09/2017 Type 2 diabetes mellitus with hyperglycemia ICD-10: E11.65 ICD-9: 250.02 09/09/2017 Pain in right shoulder ICD-10: M25.511 [...] Reason For Visit Effective Dates Notes hypertension 07/13/2018 hypertension 05/17/2018 cough 03/18/2018 hypertension 01/07/2018 hypertension 2017 pain 09/09/2017 pain 06/08/2017 hypertension 04/15/2017 ~generic 02/16/2017 PEG tube ~generic 11/09/2016 PEG tube earache 07/18/2015 hypertension 06/17/2015 Results Observation Observation Code Item Item Code Result Date Cbc With Differential Ord2 WBC 5.88 K/ul 08/02/2018 Cbc With Differential Ord2 RBC 3.63 M/ul 08/02/2018 Cbc With Differential Ord2 HGB 11.6 g/dl 08/02/2018 Cbc With Differential Ord2 Neut% 43.0 % 08/02/2018 Cbc With Differential Ord2 HCT 37.6 % 08/02/2018 Cbc With Differential Ord2 Lymph% 43.2 % 08/02/2018 Cbc With Differential Ord2 MCV 103.6 fl 08/02/2018 Cbc With Differential Ord2 MCH 32.0 pg 08/02/2018 Cbc With Differential Ord2 [place]% 7.8 % 08/02/2018 Cbc With Differential Ord2 Eos% 6.0 % 08/02/2018 Cbc With Differential Ord2 MCHC 30.9 pg 08/02/2018 Cbc With Differential Ord2 PLT 152 K/ul 08/02/2018 Cbc With Differential Ord2 Baso% 0.0 % 08/02/2018 Cbc With Differential Ord2 RDW 12.3 % 08/02/2018 Cbc With Differential Ord2 Neut ABS# 2.53 K/ul 08/02/2018 Cbc With Differential Ord2 Lymph ABS# 2.54 K/ul 08/02/2018 Cbc With Differential Ord2 [place] ABS# 0.5 K/ul 08/02/2018 Cbc With Differential Ord2 Eos ABS# 0.4 K/ul 08/02/2018 Cbc With Differential Ord2 Baso ABS# 0.0 K/ul 08/02/2018 A1C Frequency Dnj481 A1CF 46317-3 Last A1C performed at the [facility] lab on: 05-18-2018 08/02/2018 Comp Metabolic Rfy336 NA 140 mEq/L 08/02/2018 Comp Metabolic Wmd656 K 4.4 mEq/L 08/02/2018 Comp Metabolic Twr820 CL 95 mEq/L 08/02/2018 Comp Metabolic Toe933 CO2 40.0 mEq/L 08/02/2018 Comp Metabolic Grm613 ANION GAP 9 08/02/2018 Comp Metabolic Uwk144 GLUCOSE 125 mg/dL 08/02/2018 Comp Metabolic Ebu811 Creat 0.6 mg/dL 08/02/2018 Comp Metabolic Fvk735 eGFR 115 ml/min/1.73m2 08/02/2018 Comp Metabolic Hng954 BUN 24 mg/dL 08/02/2018 Comp Metabolic Bhg744 B/C Ratio 42.9 Ratio 08/02/2018 Comp Metabolic Myu338 CALCIUM 8.9 mg/dL 08/02/2018 Comp Metabolic Pwh176 ALK PHOS 69 U/L 08/02/2018 Comp Metabolic Ebz302 AST(SGOT) 10 U/L 08/02/2018 Comp Metabolic Dix244 ALT(SGPT) 6 U/L 08/02/2018 Comp Metabolic Max400 BILI T 0.3 mg/dL 08/02/2018 Comp Metabolic Hcv570 ALBUMIN 3.5 g/dL 08/02/2018 Comp Metabolic Pdp243 TPRO 6.0 g/dL 08/02/2018 Comp Metabolic Hmq849 GLOB 2.5 g/dL 08/02/2018 Comp Metabolic Fkd063 A/G Ratio 1.4 Ratio 08/02/2018 Comp Metabolic Tfx135 Osmo 285 mOsmo 08/02/2018 %Hba1C Ich743 % HbA1c 77774- 6 5.5 % 05/18/2018 %Hba1C Vab926 Gluc Ave 111 mg/dL 05/18/2018 Cbc With Differential Ord2 WBC 8.02 K/ul 05/18/2018 Cbc With Differential Ord2 RBC 3.72 M/ul 05/18/2018 Cbc With Differential Ord2 HGB 12.0 g/dl 05/18/2018 Cbc With Differential Ord2 HCT 37.8 % 05/18/2018 Cbc With Differential Ord2 Neut% 64.3 % 05/18/2018 Cbc With Differential Ord2 MCV 101.6 fl 05/18/2018 Cbc With Differential Ord2 Lymph% 22.6 % 05/18/2018 Cbc With Differential Ord2 MCH 32.3 pg 05/18/2018 Cbc With Differential Ord2 [place]% 4.9 % 05/18/2018 Cbc With Differential Ord2 MCHC 31.7 pg 05/18/2018 Cbc With Differential Ord2 Eos% 8.0 % 05/18/2018 Cbc With Differential Ord2 PLT 171 K/ul 05/18/2018 Cbc With Differential Ord2 Baso% 0.2 % 05/18/2018 Cbc With Differential Ord2 RDW 11.8 % 05/18/2018 Cbc With Differential Ord2 Neut ABS# 5.16 K/ul 05/18/2018 Cbc With Differential Ord2 Lymph ABS# 1.81 K/ul 05/18/2018 Cbc With Differential Ord2 [place] ABS# 0.4 K/ul 05/18/2018 Cbc With Differential Ord2 Eos ABS# 0.6 K/ul 05/18/2018 Cbc With Differential Ord2 Baso ABS# 0.0 K/ul 05/18/2018 Tsh Ord6 TSH (3rd IS) 0.85 uIU/mL 05/18/2018 Comp Metabolic Cnn324 NA 137 mEq/L 05/18/2018 Comp Metabolic Yhc294 K 4.2 mEq/L 05/18/2018 Comp Metabolic Ixa929 CL 97 mEq/L 05/18/2018 Comp Metabolic Pqb592 CO2 34.0 mEq/L 05/18/2018 Comp Metabolic Qxm048 ANION GAP 10 05/18/2018 Comp Metabolic Csz200 GLUCOSE 177 mg/dL 05/18/2018 Comp Metabolic Nut759 Creat 0.5 mg/dL 05/18/2018 Comp Metabolic Lwo437 eGFR 122 ml/min/1.73m2 05/18/2018 Comp Metabolic Ctq210 BUN 23 mg/dL 05/18/2018 Comp Metabolic Jrl085 B/C Ratio 43.4 Ratio 05/18/2018 Comp Metabolic Gub464 CALCIUM 9.2 mg/dL 05/18/2018 Comp Metabolic Ugz890 ALK PHOS 86 U/L 05/18/2018 Comp Metabolic Qhy524 AST(SGOT) 14 U/L 05/18/2018 Comp Metabolic Rwt140 ALT(SGPT) 9 U/L 05/18/2018 Comp Metabolic Yam287 BILI T 0.3 mg/dL 05/18/2018 Comp Metabolic Dor322 ALBUMIN 3.7 g/dL 05/18/2018 Comp Metabolic Iof745 TPRO 6.2 g/dL 05/18/2018 Comp Metabolic Xbp070 GLOB 2.6 g/dL 05/18/2018 Comp Metabolic Afj328 A/G Ratio 1.4 Ratio 05/18/2018 Comp Metabolic Bey540 Osmo 282 mOsmo 05/18/2018 A1C Frequency Pmg759 A1CF 23262-4 Last A1C performed at the [facility] lab on: 02-14-2018 05/10/2018 Cbc With Differential Ord2 WBC 6.39 K/ul 02/14/2018 Cbc With Differential Ord2 RBC 3.36 M/ul 02/14/2018 Cbc With Differential Ord2 HGB 10.3 g/dl 02/14/2018 Cbc With Differential Ord2 HCT 35.6 % 02/14/2018 Cbc With Differential Ord2 Neut% 53.6 % 02/14/2018 Cbc With Differential Ord2 MCV 106.0 fl 02/14/2018 Cbc With Differential Ord2 Lymph% 33.5 % 02/14/2018 Cbc With Differential Ord2 MCH 30.7 pg 02/14/2018 Cbc With Differential Ord2 [place]% 7.4 % 02/14/2018 Cbc With Differential Ord2 MCHC 28.9 pg 02/14/2018 Cbc With Differential Ord2 Eos% 5.3 % 02/14/2018 Cbc With Differential Ord2 PLT 123 K/ul 02/14/2018 Cbc With Differential Ord2 Baso% 0.2 % 02/14/2018 Cbc With Differential Ord2 RDW 12.1 % 02/14/2018 Cbc With Differential Ord2 Neut ABS# 3.43 K/ul 02/14/2018 Cbc With Differential Ord2 Lymph ABS# 2.14 K/ul 02/14/2018 Cbc With Differential Ord2 [place] ABS# 0.5 K/ul 02/14/2018 Cbc With Differential Ord2 Eos ABS# 0.3 K/ul 02/14/2018 Cbc With Differential Ord2 Baso ABS# 0.0 K/ul 02/14/2018 Comp Metabolic Vbd282 NA 142 mEq/L 02/14/2018 Comp Metabolic Equ551 K 4.5 mEq/L 02/14/2018 Comp Metabolic Wul384 CL 97 mEq/L 02/14/2018 Comp Metabolic Qrm726 CO2 41.0 mEq/L 02/14/2018 Comp Metabolic Dki292 ANION GAP 9 02/14/2018 Comp Metabolic Aqm287 GLUCOSE 111 mg/dL 02/14/2018 Comp Metabolic Bhh832 Creat 0.6 mg/dL 02/14/2018 Comp Metabolic Gdz072 eGFR 108 ml/min/1.73m2 02/14/2018 Comp Metabolic Pwx760 BUN 32 mg/dL 02/14/2018 Comp Metabolic Wfj757 B/C Ratio 54.2 Ratio 02/14/2018 Comp Metabolic Nxk705 CALCIUM 8.9 mg/dL 02/14/2018 Comp Metabolic Qhl321 ALK PHOS 81 U/L 02/14/2018 Comp Metabolic Qga806 AST(SGOT) 14 U/L 02/14/2018 Comp Metabolic Axj677 ALT(SGPT) 11 U/L 02/14/2018 Comp Metabolic Whn920 BILI T 0.3 mg/dL 02/14/2018 Comp Metabolic Tqs754 ALBUMIN 3.4 g/dL 02/14/2018 Comp Metabolic Uvc057 TPRO 6.3 g/dL 02/14/2018 Comp Metabolic Pdj221 GLOB 2.9 g/dL 02/14/2018 Comp Metabolic Trb838 A/G Ratio 1.2 Ratio 02/14/2018 Comp Metabolic Djn426 Osmo 291 mOsmo 02/14/2018 %Hba1C Mnf052 % HbA1c 75736- 6 5.5 % 02/14/2018 %Hba1C Yuz442 Gluc Ave 111 mg/dL 02/14/2018 Prealbumin 837764 PREALBUMIN 27 mg/dL 11/24/2017 %Hba1C Zht009 % HbA1c 49478- 6 5.5 % 11/04/2017 %Hba1C Ozl715 Gluc Ave 111 mg/dL 11/04/2017 Culture Urine [id number] URINE CULTURE SEE NOTES 10/04/2017 Culture Urine [id number] Continued Results 10/04/2017 Urine Culture Ucult Complete [...] Ord28 U-Com Culture to follow 10/01/2017 B12 Yuv217 B12 >1500.00 pg/ml 02/19/2017 Cbc With Differential Ord2 WBC 7.26 K/ul 02/02/2017 Cbc With Differential Ord2 RBC 3.36 M/ul 02/02/2017 Cbc With Differential Ord2 HGB 10.6 g/dl 02/02/2017 Cbc With Differential Ord2 HCT 33.9 % 02/02/2017 Cbc With Differential Ord2 Neut% 55.0 % 02/02/2017 Cbc With Differential Ord2 MCV 100.9 fl 02/02/2017 Cbc With Differential Ord2 Lymph% 31.4 % 02/02/2017 Cbc With Differential Ord2 MCH 31.5 pg 02/02/2017 Cbc With Differential Ord2 [place]% 8.3 % 02/02/2017 Cbc With Differential Ord2 [...] 2.28 K/ul 02/02/2017 Cbc With Differential Ord2 [place] ABS# 0.6 K/ul 02/02/2017 Cbc With Differential Ord2 Eos ABS# 0.4 K/ul 02/02/2017 Cbc With Differential Ord2 Baso ABS# 0.0 K/ul 02/02/2017 %Hba1C Dxd791 % HbA1c 62745- 6 5.2 % 02/02/2017 %Hba1C Gvz162 Gluc Ave 103 mg/dL 02/02/2017 Comp Metabolic Jxh949 NA 138 mEq/L 02/02/2017 Comp Metabolic Upt671 K 4.5 mEq/L 02/02/2017 Comp Metabolic Ycg212 CL 98 mEq/L 02/02/2017 Comp Metabolic Hvg253 CO2 37.0 mEq/L 02/02/2017 Comp Metabolic Kll101 ANION GAP 8 02/02/2017 Comp Metabolic Srq875 GLUCOSE 94 mg/dL 02/02/2017 Comp Metabolic Nhw160 Creat 0.7 mg/dL 02/02/2017 Comp Metabolic Lis519 eGFR 88 ml/min/1.73m2 02/02/2017 Comp Metabolic Nry290 BUN 36 mg/dL 02/02/2017 Comp Metabolic Pau429 B/C Ratio 50.7 Ratio 02/02/2017 Comp Metabolic Nvd794 CALCIUM 9.0 mg/dL 02/02/2017 Comp Metabolic Bay069 ALK PHOS 78 U/L 02/02/2017 Comp Metabolic Cfs421 AST(SGOT) 22 U/L 02/02/2017 Comp Metabolic Mlb162 ALT(SGPT) 28 U/L 02/02/2017 Comp Metabolic Cdw786 BILI T 0.3 mg/dL 02/02/2017 Comp Metabolic Fps847 ALBUMIN 3.3 g/dL 02/02/2017 Comp Metabolic Uji835 TPRO 5.9 g/dL 02/02/2017 Comp Metabolic Dgg717 GLOB 2.6 g/dL 02/02/2017 Comp Metabolic Sxo680 A/G Ratio 1.3 Ratio 02/02/2017 Comp Metabolic Rzd335 Osmo 284 mOsmo 02/02/2017 %Hba1C Mcj843 % HbA1c 92723- 6 5.0 % 10/29/2016 %Hba1C Ugt790 Gluc Ave 97 mg/dL 10/29/2016 Culture Urine [id number] URINE CULTURE SEE NOTES 09/21/2016 Culture Urine [id number] Continued Results 09/21/2016 Urine Culture Ucult Complete [...] 32.4 pg 07/30/2016 Cbc With Differential Ord2 [place]% 7.2 % 07/30/2016 Cbc With Differential Ord2 [...] 2.69 K/ul 07/30/2016 Cbc With Differential Ord2 [place] ABS# 0.5 K/ul 07/30/2016 Cbc With Differential Ord2 Eos ABS# 0.5 K/ul 07/30/2016 Cbc With Differential Ord2 Baso ABS# 0.0 K/ul 07/30/2016 Comp Metabolic Zuz748 NA 141 mEq/L 07/30/2016 Comp Metabolic Ixs059 K 4.3 mEq/L 07/30/2016 Comp Metabolic Tmh100 CL 100 mEq/L 07/30/2016 Comp Metabolic Qfu914 CO2 33.0 mEq/L 07/30/2016 Comp Metabolic Zsa518 ANION GAP 12 07/30/2016 Comp Metabolic Fqq924 GLUCOSE 64 mg/dL 07/30/2016 Comp Metabolic Pzs265 Creat 0.5 mg/dL 07/30/2016 Comp Metabolic Jww072 eGFR 126 ml/min/1.73m2 07/30/2016 Comp Metabolic Vre992 BUN 25 mg/dL 07/30/2016 Comp Metabolic Wyj944 B/C Ratio 48.1 Ratio 07/30/2016 Comp Metabolic May665 CALCIUM 8.9 mg/dL 07/30/2016 Comp Metabolic Fho131 ALK PHOS 90 U/L 07/30/2016 Comp Metabolic Pkd381 AST(SGOT) 22 U/L 07/30/2016 Comp Metabolic Kmd044 ALT(SGPT) 36 U/L 07/30/2016 Comp Metabolic Yba628 BILI T 0.3 mg/dL 07/30/2016 Comp Metabolic Zdm905 ALBUMIN 3.4 g/dL 07/30/2016 Comp Metabolic Rmb830 TPRO 6.0 g/dL 07/30/2016 Comp Metabolic Ccb590 GLOB 2.7 g/dL 07/30/2016 Comp Metabolic Ovr111 A/G Ratio 1.3 Ratio 07/30/2016 Comp Metabolic Rti898 Osmo 284 mOsmo 07/30/2016 A1C Frequency Tvx443 A1CF 50139-5 Last A1C performed at the [facility] lab on: 05-12-2016 07/30/2016 %Hba1C Oou729 % HbA1c 21343- 6 5.2 % 05/12/2016 %Hba1C Wnw266 Gluc Ave 103 mg/dL 05/12/2016 Culture Urine [id number] URINE CULTURE SEE NOTES 05/11/2016 Urine Culture [...] U-Com Culture to follow 05/06/2016 Culture Urine [id number] URINE CULTURE SEE NOTES 03/17/2016 Culture Urine [id number] Continued Results 03/17/2016 Urine Culture Ucult Complete [...] 32.0 pg 02/11/2016 Cbc With Differential Ord2 [place]% 9.1 % 02/11/2016 Cbc With Differential Ord2 MCHC 31.6 pg 02/11/2016 Cbc With Differential Ord2 Eos% 4.9 % 02/11/2016 Cbc With Differential Ord2 PLT 174 K/ul 02/11/2016 Cbc With Differential Ord2 Baso% 0.1 % 02/11/2016 Cbc With Differential Ord2 RDW 12.5 % 02/11/2016 Cbc With Differential Ord2 Neut ABS# 3.14 K/ul 02/11/2016 Cbc With Differential Ord2 Lymph ABS# 2.59 K/ul 02/11/2016 Cbc With Differential Ord2 [place] ABS# 0.6 K/ul 02/11/2016 Cbc With Differential Ord2 Eos ABS# 0.3 K/ul 02/11/2016 Cbc With Differential Ord2 Baso ABS# 0.0 K/ul 02/11/2016 Comp Metabolic Wht393 NA 137 mEq/L 02/11/2016 Comp Metabolic Zps099 K 4.4 mEq/L 02/11/2016 Comp Metabolic Rfz159 CL 100 mEq/L 02/11/2016 Comp Metabolic Hrh596 CO2 25.0 mEq/L 02/11/2016 Comp Metabolic Pna032 ANION GAP 16 02/11/2016 Comp Metabolic Tip363 GLUCOSE 99 mg/dL 02/11/2016 Comp Metabolic His412 Creat 0.6 mg/dL 02/11/2016 Comp Metabolic Qtj662 eGFR 99 ml/min/1.73m2 02/11/2016 Comp Metabolic Hjq668 BUN 27 mg/dL 02/11/2016 Comp Metabolic Wkj185 B/C Ratio 42.2 Ratio 02/11/2016 Comp Metabolic Yfm204 CALCIUM 9.2 mg/dL 02/11/2016 Comp Metabolic Hle205 ALK PHOS 74 U/L 02/11/2016 Comp Metabolic Hsw958 AST(SGOT) 24 U/L 02/11/2016 Comp Metabolic Vih244 ALT(SGPT) 26 U/L 02/11/2016 Comp Metabolic Pht793 BILI T 0.5 mg/dL 02/11/2016 Comp Metabolic Eqo457 ALBUMIN 3.5 g/dL 02/11/2016 Comp Metabolic Yrn298 TPRO 6.2 g/dL 02/11/2016 Comp Metabolic Qjg556 GLOB 2.7 g/dL 02/11/2016 Comp Metabolic Oei660 A/G Ratio 1.3 Ratio 02/11/2016 Comp Metabolic Drq212 Osmo 279 mOsmo 02/11/2016 Review of Systems System Result Effective Dates Constitutional No recent illness 07/13/2018 Constitutional No fever 07/13/2018 Eyes No blindness 07/13/2018 Eyes No vision change 07/13/2018 Ears/Nose/Throat/Neck No headache 07/13/2018 Ears/Nose/Throat/Neck No nasal allergies 07/13/2018 Ears/Nose/Throat/Neck No postnasal drip 07/13/2018 Ears/Nose/Throat/Neck No sinus congestion 07/13/2018 Ears/Nose/Throat/Neck No sore throat 07/13/2018 Cardiovascular No chest pain/pressure 07/13/2018 Cardiovascular No dyspnea 07/13/2018 Cardiovascular No edema 07/13/2018 Cardiovascular No near-syncope/dizziness 07/13/2018 Respiratory cough 07/13/2018 Gastrointestinal No abdominal pain 07/13/2018 Gastrointestinal No constipation 07/13/2018 Gastrointestinal No diarrhea 07/13/2018 Gastrointestinal No gastroesophageal reflux 07/13/2018 Gastrointestinal No nausea 07/13/2018 Gastrointestinal No vomiting 07/13/2018 Musculoskeletal joint complaint 07/13/2018 Dermatologic No rash 07/13/2018 Neurologic No dizziness 07/13/2018 Neurologic No headache 07/13/2018 Neurologic neck pain 07/13/2018 Endocrine diabetes mellitus type 2 07/13/2018 Constitutional No recent illness 05/17/2018 Constitutional No fever 05/17/2018 Eyes No blindness 05/17/2018 Eyes No vision change 05/17/2018 Ears/Nose/Throat/Neck No headache 05/17/2018 Ears/Nose/Throat/Neck No nasal allergies 05/17/2018 Ears/Nose/Throat/Neck No postnasal drip 05/17/2018 Ears/Nose/Throat/Neck No sinus congestion 05/17/2018 Ears/Nose/Throat/Neck No sore throat 05/17/2018 Cardiovascular No chest pain/pressure 05/17/2018 Cardiovascular No dyspnea 05/17/2018 Cardiovascular No edema 05/17/2018 Cardiovascular No near-syncope/dizziness 05/17/2018 Respiratory cough 05/17/2018 Gastrointestinal No abdominal pain 05/17/2018 Gastrointestinal No constipation 05/17/2018 Gastrointestinal No diarrhea 05/17/2018 Gastrointestinal No gastroesophageal reflux 05/17/2018 Gastrointestinal No nausea 05/17/2018 Gastrointestinal No vomiting 05/17/2018 Genitourinary/Nephrology No dysuria 05/17/2018 Musculoskeletal joint complaint 05/17/2018 Dermatologic No rash 05/17/2018 Neurologic No dizziness 05/17/2018 Neurologic No headache 05/17/2018 Neurologic neck pain 05/17/2018 Endocrine diabetes mellitus type 2 05/17/2018 Constitutional recent illness 03/18/2018 Constitutional anorexia 03/18/2018 Constitutional fatigue 03/18/2018 Constitutional No fever 03/18/2018 Constitutional insomnia 03/18/2018 Eyes No eye discharge 03/18/2018 Ears/Nose/Throat/Neck nasal allergies 03/18/2018 Ears/Nose/Throat/Neck nasal discharge 03/18/2018 Ears/Nose/Throat/Neck No otalgia 03/18/2018 Ears/Nose/Throat/Neck sinus congestion 03/18/2018 Ears/Nose/Throat/Neck sore throat 03/18/2018 Cardiovascular No chest pain/pressure 03/18/2018 Respiratory cough 03/18/2018 Respiratory productive sputum 03/18/2018 Respiratory chest congestion 03/18/2018 Gastrointestinal No abdominal pain 03/18/2018 Musculoskeletal joint complaint 03/18/2018 Dermatologic No rash 03/18/2018 Neurologic aphasia 03/18/2018 Psychiatric anxiety 03/18/2018 Constitutional No recent illness 01/07/2018 Eyes No blindness 01/07/2018 Eyes No vision change 01/07/2018 Ears/Nose/Throat/Neck No nasal allergies 01/07/2018 Ears/Nose/Throat/Neck No postnasal drip 01/07/2018 Ears/Nose/Throat/Neck No sinus congestion 01/07/2018 Ears/Nose/Throat/Neck No sore throat 01/07/2018 Cardiovascular No chest pain/pressure 01/07/2018 Cardiovascular No dyspnea 01/07/2018 Cardiovascular No edema 01/07/2018 Cardiovascular No near-syncope/dizziness 01/07/2018 Respiratory cough 01/07/2018 Gastrointestinal No abdominal pain 01/07/2018 Gastrointestinal No constipation 01/07/2018 Gastrointestinal No diarrhea 01/07/2018 Gastrointestinal No gastroesophageal reflux 01/07/2018 Gastrointestinal No nausea 01/07/2018 Gastrointestinal No vomiting 01/07/2018 Genitourinary/Nephrology No dysuria 01/07/2018 Neurologic No dizziness 01/07/2018 Neurologic No headache 01/07/2018 Neurologic neck pain 01/07/2018 Endocrine diabetes mellitus type 2 01/07/2018 Constitutional No fever 01/07/2018 Ears/Nose/Throat/Neck No headache 01/07/2018 Musculoskeletal No joint complaint 01/07/2018 Dermatologic No rash 01/07/2018 Constitutional No recent illness 2017 Constitutional No chills 2017 Constitutional No fever 2017 Eyes No blindness 2017 Eyes No vision change 2017 Ears/Nose/Throat/Neck No dizziness 2017 Ears/Nose/Throat/Neck dysphagia 2017 Ears/Nose/Throat/Neck No nasal allergies 2017 Ears/Nose/Throat/Neck No sore throat 2017 Ears/Nose/Throat/Neck No postnasal drip 2017 Ears/Nose/Throat/Neck No sinus congestion 2017 Cardiovascular No chest pain/pressure 2017 Cardiovascular No dyspnea 2017 Cardiovascular No edema 2017 Cardiovascular exercise intolerance 2017 Cardiovascular fatigue 2017 Cardiovascular No near-syncope/dizziness 2017 Respiratory No chest tightness 2017 Respiratory No cough 2017 Respiratory dyspnea 2017 Respiratory pedal edema 2017 Gastrointestinal No abdominal pain 2017 Gastrointestinal No constipation 2017 Gastrointestinal No diarrhea 2017 Gastrointestinal No gastroesophageal reflux 2017 Gastrointestinal No nausea 2017 Gastrointestinal No vomiting 2017 Genitourinary/Nephrology No dysuria 2017 Musculoskeletal stiffness 2017 Musculoskeletal No swelling 2017 Musculoskeletal muscle weakness 2017 Musculoskeletal No myalgias 2017 Neurologic No dizziness 2017 Neurologic No headache 2017 Neurologic neck pain 2017 Endocrine diabetes mellitus type 2 2017 Constitutional No recent illness 09/09/2017 Constitutional No chills 09/09/2017 Constitutional No fever 09/09/2017 Eyes No blindness 09/09/2017 Eyes No vision change 09/09/2017 Ears/Nose/Throat/Neck No dizziness 09/09/2017 Ears/Nose/Throat/Neck dysphagia 09/09/2017 Ears/Nose/Throat/Neck No nasal allergies 09/09/2017 Ears/Nose/Throat/Neck No postnasal drip 09/09/2017 Ears/Nose/Throat/Neck No sinus congestion 09/09/2017 Ears/Nose/Throat/Neck No sore throat 09/09/2017 Cardiovascular No chest pain/pressure 09/09/2017 Cardiovascular No dyspnea 09/09/2017 Cardiovascular No edema 09/09/2017 Cardiovascular exercise intolerance 09/09/2017 Cardiovascular fatigue 09/09/2017 Cardiovascular No near-syncope/dizziness 09/09/2017 Respiratory No chest tightness 09/09/2017 Respiratory No cough 09/09/2017 Respiratory dyspnea 09/09/2017 Respiratory pedal edema 09/09/2017 Gastrointestinal No abdominal pain 09/09/2017 Gastrointestinal No constipation 09/09/2017 Gastrointestinal No diarrhea 09/09/2017 Gastrointestinal No gastroesophageal reflux 09/09/2017 Gastrointestinal No nausea 09/09/2017 Gastrointestinal No vomiting 09/09/2017 Genitourinary/Nephrology No dysuria 09/09/2017 Musculoskeletal stiffness 09/09/2017 Musculoskeletal No swelling 09/09/2017 Musculoskeletal muscle weakness 09/09/2017 Musculoskeletal No myalgias 09/09/2017 Neurologic No dizziness 09/09/2017 Neurologic No headache 09/09/2017 Neurologic neck pain 09/09/2017 Endocrine diabetes mellitus type 2 09/09/2017 Musculoskeletal joint complaint 09/09/2017 Constitutional No recent illness 06/08/2017 Constitutional No fever 06/08/2017 Eyes No eye erythema 06/08/2017 Eyes No vision change 06/08/2017 Cardiovascular No chest pain/pressure 06/08/2017 Cardiovascular No dyspnea 06/08/2017 Cardiovascular No edema 06/08/2017 Cardiovascular exercise intolerance 06/08/2017 Cardiovascular fatigue 06/08/2017 Respiratory No chest tightness 06/08/2017 Respiratory cough 06/08/2017 Gastrointestinal No abdominal pain 06/08/2017 Gastrointestinal No constipation 06/08/2017 Gastrointestinal No diarrhea 06/08/2017 Gastrointestinal No gastroesophageal reflux 06/08/2017 Gastrointestinal No nausea 06/08/2017 Gastrointestinal No vomiting 06/08/2017 Musculoskeletal stiffness 06/08/2017 Musculoskeletal No swelling 06/08/2017 Musculoskeletal muscle weakness 06/08/2017 Musculoskeletal No myalgias 06/08/2017 Endocrine diabetes mellitus type 2 06/08/2017 Ears/Nose/Throat/Neck dysphagia 06/08/2017 Respiratory dyspnea 06/08/2017 Neurologic No alteration of consciousness 06/08/2017 Neurologic aphasia 06/08/2017 Neurologic spasms/spasticity 06/08/2017 Neurologic speech difficulties 06/08/2017 Constitutional No recent illness 04/15/2017 Constitutional No chills 04/15/2017 Constitutional No fever 04/15/2017 Eyes No eye erythema 04/15/2017 Eyes No vision change 04/15/2017 Ears/Nose/Throat/Neck No dizziness 04/15/2017 Ears/Nose/Throat/Neck dysphagia 04/15/2017 Ears/Nose/Throat/Neck No nasal allergies 04/15/2017 Ears/Nose/Throat/Neck No sore throat 04/15/2017 Ears/Nose/Throat/Neck No postnasal drip 04/15/2017 Ears/Nose/Throat/Neck No sinus congestion 04/15/2017 Cardiovascular No chest pain/pressure 04/15/2017 Cardiovascular No dyspnea 04/15/2017 Cardiovascular No edema 04/15/2017 Cardiovascular exercise intolerance 04/15/2017 Cardiovascular fatigue 04/15/2017 Cardiovascular No near-syncope/dizziness 04/15/2017 Respiratory No chest tightness 04/15/2017 Respiratory dyspnea 04/15/2017 Respiratory pedal edema 04/15/2017 Gastrointestinal No abdominal pain 04/15/2017 Gastrointestinal No constipation 04/15/2017 Gastrointestinal No diarrhea 04/15/2017 Gastrointestinal No gastroesophageal reflux 04/15/2017 Gastrointestinal No nausea 04/15/2017 Gastrointestinal No vomiting 04/15/2017 Genitourinary/Nephrology No dysuria 04/15/2017 Musculoskeletal stiffness 04/15/2017 Musculoskeletal No swelling 04/15/2017 Musculoskeletal muscle weakness 04/15/2017 Musculoskeletal No myalgias 04/15/2017 Neurologic No dizziness 04/15/2017 Neurologic No headache 04/15/2017 Neurologic neck pain 04/15/2017 Endocrine diabetes mellitus type 2 04/15/2017 Respiratory No cough 04/15/2017 Constitutional No recent illness 02/16/2017 Constitutional No chills 02/16/2017 Constitutional fatigue 02/16/2017 Constitutional No fever 02/16/2017 Constitutional No insomnia 02/16/2017 Constitutional malaise 02/16/2017 Eyes No blindness 02/16/2017 Eyes No vision change 02/16/2017 Ears/Nose/Throat/Neck dental pain 02/16/2017 Ears/Nose/Throat/Neck No dizziness 02/16/2017 Ears/Nose/Throat/Neck dysphagia 02/16/2017 Ears/Nose/Throat/Neck No headache 02/16/2017 Ears/Nose/Throat/Neck No hearing loss 02/16/2017 Ears/Nose/Throat/Neck No nasal allergies 02/16/2017 Ears/Nose/Throat/Neck No sore throat 02/16/2017 Ears/Nose/Throat/Neck No postnasal drip 02/16/2017 Ears/Nose/Throat/Neck No sinus congestion 02/16/2017 Cardiovascular No chest pain/pressure 02/16/2017 Cardiovascular No dyspnea 02/16/2017 Cardiovascular No edema 02/16/2017 Cardiovascular exercise intolerance 02/16/2017 Cardiovascular fatigue 02/16/2017 Cardiovascular No near-syncope/dizziness 02/16/2017 Respiratory No chest tightness 02/16/2017 Respiratory cough 02/16/2017 Respiratory dyspnea 02/16/2017 Respiratory pedal edema 02/16/2017 Gastrointestinal No abdominal pain 02/16/2017 Gastrointestinal No constipation 02/16/2017 Gastrointestinal No diarrhea 02/16/2017 Gastrointestinal No gastroesophageal reflux 02/16/2017 Gastrointestinal No nausea 02/16/2017 Gastrointestinal No vomiting 02/16/2017 Genitourinary/Nephrology No dysuria 02/16/2017 Genitourinary/Nephrology No nocturia 02/16/2017 Musculoskeletal stiffness 02/16/2017 Musculoskeletal No swelling 02/16/2017 Musculoskeletal muscle weakness 02/16/2017 Musculoskeletal No myalgias 02/16/2017 Dermatologic rash 02/16/2017 Dermatologic No sores 02/16/2017 Neurologic No dizziness 02/16/2017 Neurologic No headache 02/16/2017 Neurologic neck pain 02/16/2017 Neurologic No syncope 02/16/2017 Psychiatric No anxiety 02/16/2017 Psychiatric No depression 02/16/2017 Endocrine diabetes mellitus type 2 02/16/2017 Constitutional No recent illness 11/09/2016 Constitutional No chills 11/09/2016 Constitutional No diaphoresis 11/09/2016 Constitutional No fever 11/09/2016 Eyes No eye erythema 11/09/2016 Ears/Nose/Throat/Neck No nasal discharge 11/09/2016 Cardiovascular No chest pain/pressure 11/09/2016 Cardiovascular No dyspnea 11/09/2016 Respiratory No cough 11/09/2016 Dermatologic erythema 11/09/2016 Neurologic No alteration of consciousness 11/09/2016 Neurologic memory loss 11/09/2016 Constitutional No recent illness 07/18/2015 Constitutional No anorexia 07/18/2015 Constitutional No night sweats 07/18/2015 Constitutional No chills 07/18/2015 Constitutional No diaphoresis 07/18/2015 Constitutional No fatigue 07/18/2015 Ears/Nose/Throat/Neck No dizziness 07/18/2015 Ears/Nose/Throat/Neck No headache 07/18/2015 Cardiovascular No chest pain/pressure 07/18/2015 Respiratory No productive sputum 07/18/2015 Respiratory No cough 07/18/2015 Gastrointestinal No abdominal pain 07/18/2015 Gastrointestinal No constipation 07/18/2015 Gastrointestinal No diarrhea 07/18/2015 Genitourinary/Nephrology No dysuria 07/18/2015 Musculoskeletal joint complaint 07/18/2015 Musculoskeletal back pain 07/18/2015 Dermatologic No rash 07/18/2015 Neurologic No alteration of consciousness 07/18/2015 Constitutional No recent illness 06/17/2015 Constitutional No chills 06/17/2015 Constitutional fatigue 06/17/2015 Constitutional No fever 06/17/2015 Constitutional No insomnia 06/17/2015 Constitutional malaise 06/17/2015 Eyes No blindness 06/17/2015 Eyes No vision change 06/17/2015 Ears/Nose/Throat/Neck dental pain 06/17/2015 Ears/Nose/Throat/Neck No dizziness 06/17/2015 Ears/Nose/Throat/Neck dysphagia 06/17/2015 Ears/Nose/Throat/Neck No headache 06/17/2015 Ears/Nose/Throat/Neck No hearing loss 06/17/2015 Ears/Nose/Throat/Neck No nasal allergies 06/17/2015 Ears/Nose/Throat/Neck No sore throat 06/17/2015 Ears/Nose/Throat/Neck No postnasal drip 06/17/2015 Ears/Nose/Throat/Neck No sinus congestion 06/17/2015 Cardiovascular No chest pain/pressure 06/17/2015 Cardiovascular No dyspnea 06/17/2015 Cardiovascular No edema 06/17/2015 Cardiovascular exercise intolerance 06/17/2015 Cardiovascular fatigue 06/17/2015 Cardiovascular No near-syncope/dizziness 06/17/2015 Respiratory No chest tightness 06/17/2015 Respiratory cough 06/17/2015 Respiratory dyspnea 06/17/2015 Respiratory pedal edema 06/17/2015 Gastrointestinal No abdominal pain 06/17/2015 Gastrointestinal No constipation 06/17/2015 Gastrointestinal No diarrhea 06/17/2015 Gastrointestinal No gastroesophageal reflux 06/17/2015 Gastrointestinal No nausea 06/17/2015 Gastrointestinal No vomiting 06/17/2015 Genitourinary/Nephrology No dysuria 06/17/2015 Genitourinary/Nephrology No nocturia 06/17/2015 Musculoskeletal stiffness 06/17/2015 Musculoskeletal No swelling 06/17/2015 Musculoskeletal muscle weakness 06/17/2015 Musculoskeletal No myalgias 06/17/2015 Dermatologic rash 06/17/2015 Dermatologic No sores 06/17/2015 Neurologic No dizziness 06/17/2015 Neurologic No headache 06/17/2015 Neurologic neck pain 06/17/2015 Neurologic No syncope 06/17/2015 Psychiatric No anxiety 06/17/2015 Psychiatric No depression 06/17/2015 Physical Exam Exam Name System Name Item Name Status Result Effective Dates Notes Full Exam - General 1994 Constitutional general appearance Development: well developed 07/13/2018 None Full Exam - General 1994 Constitutional general appearance Development: appears stated age 0407/13/2018 None Full Exam - General 1994 Constitutional general appearance Assistive Device: wheelchair 07/13/2018 None Full Exam - General 1994 Eyes conjunctiva/eyelids Overall: conjunctiva clear 07/13/2018 None Full Exam - General 1994 Eyes conjunctiva/eyelids Overall: cornea clear 07/13/2018 None Full Exam - General 1994 Eyes conjunctiva/eyelids Overall: eyelids normal 07/13/2018 None Full Exam - General 1994 Eyes pupils and irises Overall: pupils equal, round, reactive to light and accomodation 07/13/2018 None Full Exam - General 1994 Ears/Nose/Throat otoscopic exam Overall: external auditory canals clear 07/13/2018 None Full Exam - General 1994 Ears/Nose/Throat otoscopic exam Overall: tympanic membranes clear 07/13/2018 None Full Exam - General 1994 Ears/Nose/Throat oral cavity/pharynx/larynx Overall: no masses 07/13/2018 None Full Exam - General 1994 Respiratory auscultation Overall: breath sounds clear bilaterally 07/13/2018 None Full Exam - General 1994 Respiratory respiratory effort/rhythm Overall: no retractions 07/13/2018 None Full Exam - General 1994 Respiratory respiratory effort/rhythm Overall: normal rate 07/13/2018 None Full Exam - General 1994 Cardiovascular extremities Overall: no clubbing 07/13/2018 None Full Exam - General 1994 Cardiovascular auscultation of heart Overall: regular rate 07/13/2018 None Full Exam - General 1994 Cardiovascular auscultation of heart Overall: normal heart sounds 07/13/2018 None Full Exam - General 1994 Abdomen abdominal exam Overall: no tenderness 07/13/2018 None Full Exam - General 1994 Lymphatic neck nodes Overall: anterior cervical chain benign 07/13/2018 None Full Exam - General 1994 Lymphatic neck nodes Overall: posterior cervical chain benign 07/13/2018 None Full Exam - General 1994 Musculoskeletal digits and nails Nails: thickened 07/13/2018 None Full Exam - General 1994 Musculoskeletal spine, ribs and pelvis Overall: spine benign 07/13/2018 None Full Exam - General 1994 Musculoskeletal spine, ribs and pelvis Overall: sacroiliac joint benign 07/13/2018 None Full Exam - General 1994 Musculoskeletal spine, ribs and pelvis Overall: good posture 07/13/2018 None Full Exam - General 1994 Musculoskeletal gait and station Station: [email or web address] 07/13/2018 None Full Exam - General 1994 Musculoskeletal head and neck Overall: head atraumatic 07/13/2018 None Full Exam - General 1994 Musculoskeletal head and neck Cervical Spine: deformity 07/13/2018 None Full Exam - General 1994 Neurologic cranial nerves Overall: crainial nerves 2 - 12 grossly intact 07/13/2018 None Full Exam - General 1994 Psychiatric orientation/consciousness Level of consciousness: alert 07/13/2018 nonverbal but responds to commands appropriately and shakes head yes/no to answer questions Full Exam - General 1994 Psychiatric mood and affect Overall: normal mood and affect 07/13/2018 None Full Exam - General 1994 Constitutional general appearance Development: well developed 05/17/2018 None Full Exam - General 1994 Constitutional general appearance Development: appears stated age 0205/17/2018 None Full Exam - General 1994 Constitutional general appearance Assistive Device: wheelchair 05/17/2018 None Full Exam - General 1994 Eyes conjunctiva/eyelids Overall: conjunctiva clear 05/17/2018 None Full Exam - General 1994 Eyes conjunctiva/eyelids Overall: cornea clear 05/17/2018 None Full Exam - General 1994 Eyes conjunctiva/eyelids Overall: eyelids normal 05/17/2018 None Full Exam - General 1994 Eyes pupils and irises Overall: pupils equal, round, reactive to light and accomodation 05/17/2018 None Full Exam - General 1994 Ears/Nose/Throat otoscopic exam Overall: external auditory canals clear 05/17/2018 None Full Exam - General 1994 Ears/Nose/Throat otoscopic exam Overall: tympanic membranes clear 05/17/2018 None Full Exam - General 1994 Ears/Nose/Throat lips/teeth/gingiva Overall: benign lips 05/17/2018 None Full Exam - General 1994 Ears/Nose/Throat oral cavity/pharynx/larynx Overall: no masses 05/17/2018 None Full Exam - General 1994 Respiratory auscultation Overall: breath sounds clear bilaterally 05/17/2018 None Full Exam - General 1994 Respiratory respiratory effort/rhythm Overall: no retractions 05/17/2018 None Full Exam - General 1994 Respiratory respiratory effort/rhythm Overall: normal rate 05/17/2018 None Full Exam - General 1994 Cardiovascular extremities Overall: no clubbing 05/17/2018 None Full Exam - General 1994 Cardiovascular auscultation of heart Overall: regular rate 05/17/2018 None Full Exam - General 1994 Cardiovascular auscultation of heart Overall: normal heart sounds 05/17/2018 None Full Exam - General 1994 Abdomen abdominal exam Overall: no tenderness 05/17/2018 None Full Exam - General 1994 Abdomen abdominal exam Upper quadrant: no guarding 05/17/2018 left upper abdomen with PEG tube in place, c/d/i Full Exam - General 1994 Lymphatic neck nodes Overall: anterior cervical chain benign 05/17/2018 None Full Exam - General 1994 Lymphatic neck nodes Overall: posterior cervical chain benign 05/17/2018 None Full Exam - General 1994 Musculoskeletal digits and nails Nails: thickened 05/17/2018 None Full Exam - General 1994 Musculoskeletal spine, ribs and pelvis Overall: spine benign 05/17/2018 None Full Exam - General 1994 Musculoskeletal spine, ribs and pelvis Overall: sacroiliac joint benign 05/17/2018 None Full Exam - General 1994 Musculoskeletal spine, ribs and pelvis Overall: good posture 05/17/2018 None Full Exam - General 1994 Musculoskeletal gait and station Station: kyphosis 05/17/2018 None Full Exam - General 1994 Musculoskeletal head and neck Overall: head atraumatic 05/17/2018 None Full Exam - General 1994 Musculoskeletal head and neck Cervical Spine: deformity 05/17/2018 None Full Exam - General 1994 Neurologic deep tendon reflexes Overall: deep tendon reflexes intact 05/17/2018 None Full Exam - General 1994 Neurologic cranial nerves Overall: crainial nerves 2 - 12 grossly intact 05/17/2018 None Full Exam - General 1994 Psychiatric orientation/consciousness Level of consciousness: alert 05/17/2018 nonverbal but responds to commands appropriately and shakes head yes/no to answer questions Full Exam - General 1994 Psychiatric mood and affect Overall: normal mood and affect 05/17/2018 None Full Exam - General 1994 Abdomen abdominal exam Bowel sounds: hyperactive 05/17/2018 None Full Exam - General 1994 Constitutional general appearance Development: well developed 03/18/2018 None Full Exam - General 1994 Constitutional general appearance Development: appears stated age 1203/18/2018 None Full Exam - General 1994 Constitutional general appearance Assistive Device: wheelchair 03/18/2018 None Full Exam - General 1994 Eyes conjunctiva/eyelids Overall: conjunctiva clear 03/18/2018 None Full Exam - General 1994 Eyes conjunctiva/eyelids Overall: cornea clear 03/18/2018 None Full Exam - General 1994 Eyes conjunctiva/eyelids Overall: eyelids normal 03/18/2018 None Full Exam - General 1994 Eyes pupils and irises Overall: pupils equal, round, reactive to light and accomodation 03/18/2018 None Full Exam - General 1994 Ears/Nose/Throat otoscopic exam Overall: external auditory canals clear 03/18/2018 None Full Exam - General 1994 Ears/Nose/Throat otoscopic exam Overall: tympanic membranes clear 03/18/2018 None Full Exam - General 1994 Ears/Nose/Throat lips/teeth/gingiva Overall: benign lips 03/18/2018 None Full Exam - General 1994 Ears/Nose/Throat oral cavity/pharynx/larynx Overall: no masses 03/18/2018 None Full Exam - General 1994 Respiratory respiratory effort/rhythm Overall: no retractions 03/18/2018 None Full Exam - General 1994 Respiratory respiratory effort/rhythm Overall: normal rate 03/18/2018 None Full Exam - General 1994 Cardiovascular extremities Overall: no clubbing 03/18/2018 None Full Exam - General 1994 Cardiovascular auscultation of heart Overall: regular rate 03/18/2018 None Full Exam - General 1994 Cardiovascular auscultation of heart Overall: normal heart sounds 03/18/2018 None Full Exam - General 1994 Abdomen abdominal exam Overall: no tenderness 03/18/2018 None Full Exam - General 1994 Abdomen abdominal exam Overall: normal bowel sounds 03/18/2018 None Full Exam - General 1994 Abdomen abdominal exam Upper quadrant: no guarding 03/18/2018 left upper abdomen with PEG tube in place, c/d/i Full Exam - General 1994 Lymphatic neck nodes Overall: anterior cervical chain benign 03/18/2018 None Full Exam - General 1994 Lymphatic neck nodes Overall: posterior cervical chain benign 03/18/2018 None Full Exam - General 1994 Musculoskeletal digits and nails Nails: thickened 03/18/2018 None Full Exam - General 1994 Musculoskeletal spine, ribs and pelvis Overall: spine benign 03/18/2018 None Full Exam - General 1994 Musculoskeletal spine, ribs and pelvis Overall: sacroiliac joint benign 03/18/2018 None Full Exam - General 1994 Musculoskeletal spine, ribs and pelvis Overall: good posture 03/18/2018 None Full Exam - General 1994 Musculoskeletal gait and station Station: [email or web address] 03/18/2018 None Full Exam - General 1994 Musculoskeletal head and neck Overall: head atraumatic 03/18/2018 None Full Exam - General 1994 Musculoskeletal head and neck Cervical Spine: deformity 03/18/2018 None Full Exam - General 1994 Neurologic deep tendon reflexes Overall: deep tendon reflexes intact 03/18/2018 None Full Exam - General 1994 Neurologic cranial nerves Overall: crainial nerves 2 - 12 grossly intact 03/18/2018 None Full Exam - General 1994 Psychiatric orientation/consciousness Level of consciousness: alert 03/18/2018 nonverbal but responds to commands appropriately and shakes head yes/no to answer questions Full Exam - General 1994 Psychiatric mood and affect Overall: normal mood and affect 03/18/2018 None Full Exam - General 1994 Respiratory auscultation Right lower lung field: crackles 03/18/2018 None Full Exam - General 1994 Respiratory auscultation Lower lung field: crackles 03/18/2018 None Full Exam - General 1994 Musculoskeletal lower extremity Inspection - knee: swelling 03/18/2018 None Full Exam - General 1994 Musculoskeletal lower extremity Palpation - knee: crepitus 03/18/2018 None Full Exam - General 1994 Constitutional general appearance Development: well developed 01/07/2018 None Full Exam - General 1994 Constitutional general appearance Development: appears stated age 1001/07/2018 None Full Exam - General 1994 Constitutional general appearance Assistive Device: wheelchair 01/07/2018 None Full Exam - General 1994 Eyes conjunctiva/eyelids Overall: conjunctiva clear 01/07/2018 None Full Exam - General 1994 Eyes conjunctiva/eyelids Overall: cornea clear 01/07/2018 None Full Exam - General 1994 Eyes conjunctiva/eyelids Overall: eyelids normal 01/07/2018 None Full Exam - General 1994 Eyes pupils and irises Overall: pupils equal, round, reactive to light and accomodation 01/07/2018 None Full Exam - General 1994 Ears/Nose/Throat otoscopic exam Overall: external auditory canals clear 01/07/2018 None Full Exam - General 1994 Ears/Nose/Throat otoscopic exam Overall: tympanic membranes clear 01/07/2018 None Full Exam - General 1994 Ears/Nose/Throat lips/teeth/gingiva Overall: benign lips 01/07/2018 None Full Exam - General 1994 Ears/Nose/Throat oral cavity/pharynx/larynx Overall: no masses 01/07/2018 None Full Exam - General 1994 Respiratory auscultation Overall: breath sounds clear bilaterally 01/07/2018 None Full Exam - General 1994 Respiratory respiratory effort/rhythm Overall: no retractions 01/07/2018 None Full Exam - General 1994 Respiratory respiratory effort/rhythm Overall: normal rate 01/07/2018 None Full Exam - General 1994 Cardiovascular extremities Overall: no clubbing 01/07/2018 None Full Exam - General 1994 Cardiovascular auscultation of heart Overall: regular rate 01/07/2018 None Full Exam - General 1994 Cardiovascular auscultation of heart Overall: normal heart sounds 01/07/2018 None Full Exam - General 1994 Abdomen abdominal exam Overall: no tenderness 01/07/2018 None Full Exam - General 1994 Abdomen abdominal exam Overall: normal bowel sounds 01/07/2018 None Full Exam - General 1994 Abdomen abdominal exam Upper quadrant: no guarding 01/07/2018 left upper abdomen with PEG tube in place, c/d/i Full Exam - General 1994 Lymphatic neck nodes Overall: anterior cervical chain benign 01/07/2018 None Full Exam - General 1994 Lymphatic neck nodes Overall: posterior cervical chain benign 01/07/2018 None Full Exam - General 1994 Musculoskeletal digits and nails Nails: thickened 01/07/2018 None Full Exam - General 1994 Musculoskeletal spine, ribs and pelvis Overall: spine benign 01/07/2018 None Full Exam - General 1994 Musculoskeletal spine, ribs and pelvis Overall: sacroiliac joint benign 01/07/2018 None Full Exam - General 1994 Musculoskeletal spine, ribs and pelvis Overall: good posture 01/07/2018 None Full Exam - General 1994 Musculoskeletal gait and station Station: kyphosis 01/07/2018 None Full Exam - General 1994 Musculoskeletal head and neck Overall: head atraumatic 01/07/2018 None Full Exam - General 1994 Musculoskeletal head and neck Cervical Spine: deformity 01/07/2018 None Full Exam - General 1994 Neurologic deep tendon reflexes Overall: deep tendon reflexes intact 01/07/2018 None Full Exam - General 1994 Neurologic cranial nerves Overall: crainial nerves 2 - 12 grossly intact 01/07/2018 None Full Exam - General 1994 Psychiatric mood and affect Overall: normal mood and affect 01/07/2018 None Full Exam - General 1994 Psychiatric orientation/consciousness Level of consciousness: alert 01/07/2018 nonverbal but responds to commands appropriately and shakes head yes/no to answer questions Full Exam - General 1994 Constitutional general appearance Development: well developed 2017 None Full Exam - General 1994 Constitutional general appearance Development: appears stated age 0811/08/2017 None Full Exam - General 1994 Eyes conjunctiva/eyelids Overall: conjunctiva clear 2017 None Full Exam - General 1994 Eyes conjunctiva/eyelids Overall: cornea clear 2017 None Full Exam - General 1994 Eyes conjunctiva/eyelids Overall: eyelids normal 2017 None Full Exam [...] digits 4/5 more deforedmed than digits 3, 2, 1 on left [...] None Full Exam - General 1994 Eyes conjunctiva/eyelids Overall: conjunctiva clear 09/09/2017 None Full Exam - General 1994 Eyes conjunctiva/eyelids Overall: cornea clear 09/09/2017 None Full Exam - General 1994 Eyes conjunctiva/eyelids Overall: eyelids normal 09/09/2017 None Full Exam [...] digits 4/5 more deforedmed than digits 3, 2, 1 on left [...] None Full Exam - General 1994 Eyes conjunctiva/eyelids Overall: conjunctiva clear 06/08/2017 None Full Exam - General 1994 Eyes conjunctiva/eyelids Overall: cornea clear 06/08/2017 None Full Exam - General 1994 Eyes conjunctiva/eyelids Overall: eyelids normal 06/08/2017 None Full Exam [...] None Full Exam - General 1994 Eyes conjunctiva/eyelids Overall: conjunctiva clear 04/15/2017 None Full Exam - General 1994 Eyes conjunctiva/eyelids Overall: cornea clear 04/15/2017 None Full Exam - General 1994 Eyes conjunctiva/eyelids Overall: eyelids normal 04/15/2017 None Full Exam [...] digits 4/5 more deforedmed than digits 3, 2, 1 on left [...] None Full Exam - General 1994 Eyes conjunctiva/eyelids Overall: conjunctiva clear 02/16/2017 None Full Exam - General 1994 Eyes conjunctiva/eyelids Overall: cornea clear 02/16/2017 None Full Exam - General 1994 Eyes conjunctiva/eyelids Overall: eyelids normal 02/16/2017 None Full Exam [...] digits 4/5 more deforedmed than digits 3, 2, 1 on left [...] None Full Exam - General 1994 Eyes conjunctiva/eyelids Overall: conjunctiva clear 11/09/2016 None Full Exam [...] None Full Exam - General 1994 Eyes conjunctiva/eyelids Overall: conjunctiva clear 07/18/2015 None Full Exam - General 1994 Eyes conjunctiva/eyelids Overall: cornea clear 07/18/2015 None Full Exam - General 1994 Eyes conjunctiva/eyelids Overall: eyelids normal 07/18/2015 None Full Exam [...] None Full Exam - General 1994 Eyes conjunctiva/eyelids Overall: conjunctiva clear 06/17/2015 None Full Exam - General 1994 Eyes conjunctiva/eyelids Overall: cornea clear 06/17/2015 None Full Exam - General 1994 Eyes conjunctiva/eyelids Overall: eyelids normal 06/17/2015 None Full Exam [...] digits 4/5 more deforedmed than digits 3, 2, 1 on left [...] CPT-4: G8553 06/17/2015 Vital Signs Date Vital 07/13/2018 Blood Pressure 1: 132/68 Code: 8480-6 Heart Rate 1: 60 bpm Height: SpO2: 97% Weight: 05/17/2018 Blood Pressure 1: 134/72 Code: 8480-6 Heart Rate 1: 59 bpm Height: SpO2: 97% Temperature: 37.1 (C) / 98.7 (F) Weight: 03/18/2018 Blood Pressure 1: 136/70 Code: 8480-6 Heart Rate 1: 88 bpm Height: SpO2: 98% Temperature: 37.2 (C) / 99.0 (F) Weight: 01/07/2018 Blood Pressure 1: 110/72 Code: 8480-6 Heart Rate 1: 67 bpm Height: SpO2: 98% Weight: 2017 Blood Pressure 1: 110/60 Code: 8480-6 Heart Rate 1: 64 bpm Height: SpO2: 94% Weight: 09/09/2017 Blood Pressure 1: 118/62 Code: 8480-6 Heart Rate 1: 67 bpm Height: SpO2: 96% Weight: 06/08/2017 Blood Pressure 1: 124/76 Code: 8480-6 Heart Rate 1: 71 bpm Height: SpO2: 98% Weight: 04/15/2017 Blood Pressure 1: 124/64 Code: 8480-6 Heart Rate 1: 71 bpm Height: SpO2: 99% Weight: 02/16/2017 Blood Pressure 1: 128/76 Code: 8480-6 Heart Rate 1: 71 bpm Height: SpO2: 98% Weight: 11/09/2016 Blood Pressure 1: 120/64 Code: 8480-6 Heart Rate 1: 75 bpm Height: SpO2: 99% Weight: 07/18/2015 Blood Pressure 1: 128/86 Code: 8480-6 BMI: 31.4 Code: 79235-2 Heart Rate 1: 72 bpm Height: 5'1" Weight: 166 lbs 06/17/2015 Blood Pressure 1: 110/78 Code: 8480-6 BMI: 33.3 Code: 09695-0 Heart Rate 1: 74 bpm Height: 5'1" SpO2: 92% Weight: 176 lbs Functional Status No Functional Status data History of Present Illness Symptom Name Status Result Effective Date Notes Quality primary hypertension 07/13/2018 None Quality stable 07/13/2018 None Onset and Resolution ongoing 07/13/2018 None Onset of Symptom during adulthood 07/13/2018 None Alleviating Factors medication 07/13/2018 None Quality chronic 07/13/2018 None Blood Pressure Values patient checking blood pressure at home - did not bring in readings 07/13/2018 None Quality chronic 07/13/2018 None Quality insulin dependent 07/13/2018 None Alleviating Factors insulin 07/13/2018 None Exacerbating Factors diet 07/13/2018 None Location diffusely 07/13/2018 None Quality chronic 07/13/2018 None Onset and Resolution ongoing 07/13/2018 None Alleviating Factors medication 07/13/2018 None Quality primary hypertension 05/17/2018 None Quality stable 05/17/2018 None Onset and Resolution ongoing 05/17/2018 None Onset of Symptom during adulthood 05/17/2018 None Blood Pressure Values pt checking blood pressure - see scanned document 05/17/2018 None Severity not consistently severe symptoms, the symptoms fluctuate from no symptoms to anxiety and headaches 05/17/2018 None Triggers no known associated factors 05/17/2018 None Alleviating Factors medication 05/17/2018 None Pertinent Findings Denies anxiety 05/17/2018 None Frequency of Episodes increasing 05/17/2018 None Location in the throat 03/18/2018 None Quality productive 03/18/2018 None Pertinent Findings Denies dyspnea 03/18/2018 None Pertinent Findings fever 03/18/2018 None Onset and Resolution ongoing 03/18/2018 None Limitation on Activities moderately limits activities 03/18/2018 None Frequency of Episodes increasing 03/18/2018 None Significant Medical Conditions pulmonary disease 03/18/2018 None Triggers no known associated factors 03/18/2018 None Alleviating Factors inhaled medications 03/18/2018 None hypertension Quality primary hypertension 01/07/2018 None hypertension Quality stable 01/07/2018 None hypertension Onset and Resolution ongoing 01/07/2018 None hypertension Onset of Symptom during adulthood 01/07/2018 None hypertension Blood Pressure Values pt checking blood pressure - see scanned document 01/07/2018 None hypertension Severity not consistently severe symptoms, the symptoms fluctuate from no symptoms to anxiety and headaches 01/07/2018 None hypertension Triggers no known associated factors 01/07/2018 None hypertension Alleviating Factors medication 01/07/2018 None diabetes mellitus Quality insulin dependent 01/07/2018 None diabetes mellitus Alleviating Factors insulin 01/07/2018 None diabetes mellitus Exacerbating Factors diet 01/07/2018 None hypertension Pertinent Findings Denies anxiety 01/07/2018 None hypertension Quality primary hypertension 2017 None hypertension [...] Conditions cardiac disease 06/17/2015 None Advance Directives No Advance Directive data Encounters Encounter Performer Location Codes Date ([id number]) [id number] EST. PATIENT, LEVEL IV Diagnosis: Essential (primary) hypertension[ICD10: I10] Diagnosis: Type 2 diabetes mellitus without complications[ICD10: E11.9] Diagnosis: Chronic pain syndrome[ICD10: G89.4] Diagnosis: Encounter for palliative care[ICD10: Z51.5] Vonda Everett MD, [facility] CPT-4: 90171 07/13/2018 ([id number]) 80421 EST. PATIENT, LEVEL IV Diagnosis: Essential (primary) hypertension[ICD10: I10] Diagnosis: Chronic pain syndrome[ICD10: G89.4] Diagnosis: Type 2 diabetes mellitus without complications[ICD10: E11.9] Diagnosis: Dysphagia following cerebral infarction[ICD10: I69.391] Carlyn Everett MD, [facility] CPT-4: 41375 05/17/2018 ([id number]) 22796 EST. PATIENT, LEVEL IV Diagnosis: Cough[ICD10: R05] Diagnosis: Pneumonia, unspecified organism[ICD10: J18.9] Diagnosis: Pain in right knee[ICD10: M25.561] Carlyn Everett MD, [facility] CPT- 4: 02295 03/18/2018 ([id number]) 39557 EST. PATIENT, LEVEL IV Diagnosis: Type 2 diabetes mellitus without complications[ICD10: E11.9] Diagnosis: Essential (primary) hypertension[ICD10: I10] Diagnosis: Chronic pain syndrome[ICD10: G89.4] Carlyn Everett MD, [facility] CPT-4: 99855 01/07/2018 ([id number]) 52635 EST. PATIENT, LEVEL IV Diagnosis: Essential (primary) hypertension[ICD10: I10] Diagnosis: Type 2 diabetes mellitus without complications[ICD10: E11.9] Carlyn Everett MD, [facility] CPT-4: 33004 2017 ([id number]) 44720 EST. PATIENT, LEVEL IV Diagnosis: Type 2 diabetes mellitus with hyperglycemia[ICD10: E11.65] Diagnosis: Essential (primary) hypertension[ICD10: I10] Diagnosis: Pain in left shoulder[ICD10: M25.512] Diagnosis: Pain in right shoulder[ICD10: M25.511] Diagnosis: Pain in left knee[ICD10: M25.562] Diagnosis: Pain in right knee[ICD10: M25.561] Vonda Everett MD, [facility] CPT- 4: 96481 09/09/2017 93451 EST. PATIENT, LEVEL IV Diagnosis: Essential (primary) hypertension[ICD10: I10] Diagnosis: Type 2 diabetes mellitus with hyperglycemia[ICD10: E11.65] Diagnosis: Low back pain[ICD10: M54.5] Sunitha Everett MD, [facility] CPT-4: 67655 06/08/2017 [id number]) 10878 EST. PATIENT, LEVEL IV Diagnosis: Essential (primary) hypertension[ICD10: I10] Diagnosis: Type 2 diabetes mellitus with hyperglycemia[ICD10: E11.65] Diagnosis: Low back pain[ICD10: M54.5] Sunitha Everett MD, [facility] CPT-4: 25710 04/15/2017 ([id number]) 38446 EST. PATIENT, LEVEL IV Diagnosis: Essential (primary) hypertension[ICD10: I10] Diagnosis: Type 2 diabetes mellitus with hyperglycemia[ICD10: E11.65] Diagnosis: Low back pain[ICD10: M54.5] [facility] CPT-4: 96467 02/16/2017 53374 EST. 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 CPT-4: 74950 11/09/2016 [id number] 13371 EST. 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 Pt has been encouraged to exercise daily. The pt has been advised to call the office if there are any acute concerns about change in blood pressure readings at home. DM - with low blood glucose - I have recommended that we dc levemir due to poor intake and the low blood glucose readings. Chronic pain - with end stage decline - continue with fentanyl patches, continue with hospice. 07/13/2018 [facility] [phone] [facility] (15 min) Moderate 07/13/2018 Patient Education: Patient Medication Summary Completed 07/13/2018 Patient Education: Diabetes Completed 07/13/2018 Visit Plan: Hypertension - well controlled - continue with current medications, continue with no added salt diet. Pt has been encouraged to exercise daily. The pt has been advised to call the office if there are any acute concerns about change in blood pressure readings at home. DM-check hgb a1c Chronic pain -fairly well controlled with fentanyl patches-continue to monitor. Patient is unable to take in adequate nutrition orally due to history of stroke -this condition is permanent and will need tube feedings for the duration of her life. Due to this condition, tube feedings are required to provide sufficient nu trients to maintain weight and strength commensurate with the patient's overall health status. Adequate nutrition is not possible by dietary adjustments or oral supplements 05/17/2018 Visit Plan: Hypertension - well controlled - continue with current medications, continue with no added salt diet. Pt has been encouraged to exercise daily. The pt has been advised to call the office if there are any acute concerns about change in blood pressure readings at home. DM-check hgb a1c Chronic pain -fairly well controlled with fentanyl patches-continue to monitor. 05/17/2018 Appointment: [facility] Higginboth[facility] [phone] [phone] [place] (15 min) Moderate 05/17/2018 Patient Education: Patient Medication Summary Completed 05/17/2018 Patient Education: Hypertension Completed 05/17/2018 Patient Education: Diabetes Completed 05/17/2018 Appointment: Carlyn Higginbotham [facility] [phone] [phone] [place] (15 min) Moderate 04/07/2018 Visit Plan: Pneumonia - Pt has been diagnosed with pneumonia by physical exam. A chest xray has been ordered as have antibiotics. The pt is aware of the diagnosis and the need for acute treatment of this illness. Right knee pain -xray knee-rx for voltaren gel 03/18/2018 Appointment: Carlyn Higginbotham WPtel: [phone] [phone] [place] (30 min) Complex 03/18/2018 Patient Education: Patient Medication Summary Completed 03/18/2018 Appointment: Carlyn Higginbotham WPtel: [phone] [phone] [place] (30 min) Complex 03/17/2018 Appointment: Carlyn Higginbotham WPtel: [phone] [phone] [place] (15 min) Moderate 03/10/2018 Appointment: Carlyn Higginbotham WPtel: [phone] [phone] [place] (15 min) Moderate 02/08/2018 Visit Plan: DM -decrease levemir to 4 units daily -monitor blood sugars IKK-snmdtcslqk-ni changes Chronic pain -well controlled with fentanyl patch -no changes at this time 01/07/2018 Appointment: Carlyn Higginbotham WPtel: [phone] [phone] [place] (15 min) Moderate 01/07/2018 Patient Education: Patient Medication Summary Completed 01/07/2018 Patient Education: Diabetes Completed 01/07/2018 Patient Education: Hypertension Completed 01/07/2018 Visit Plan: Hypertension - well controlled - [...] AT HS 2017 Appointment: Carlyn Higginbotham WPtel: [phone] [phone] [place] (15 min) Moderate 2017 Patient Education: Patient [...] 175mcg. 09/09/2017 [phone] [facility] [place] (15 min) Moderate 09/09/2017 Patient Education: [...] and PRN pain medications - will have fdc fax over PRN medication administration record. 06/08/2017 Appointment: Sunitha Patel WPtel: [phone] [facility] [place] (30 min) Complex 06/08/2017 Patient Education: [...] of over-medication. 04/15/2017 Appointment: Sunitha Patel WPtel: [facility] (30 min) Complex 04/15/2017 Patient Education: Patient [...] today. 02/16/2017 [facility]: [facility] [phone] [facility] (15 min) Moderate 02/16/2017 Patient Education: Patient Medication Summary Completed 02/16/2017 Patient Education: Hypertension Completed 02/16/2017 Referral: Jorge Luis Carroll she will be called with appt time and date Initiated 11/12/2016 Visit Plan: PEG tube - tube has not been replaced in some time, some mild irritation noted around the tube - will refer to surgeon for PEG tube replacement. Pt/family is to notify clinic with any changes, questions, or concerns. 11/09/2016 Appointment: [facility] Pat[facility] [phone] [facility] (30 min) Complex 11/09/2016 Patient Education: Patient Medication Summary Completed 11/09/2016 Care Plan: Referral Order SNOMED-CT : [id number] Pending 11/09/2016 Patient Education: Patient Medication Summary [...] Follow up weight in 1 month Neck wfsg-rcgsnwjxfmw-Hlhb PT focus neck/upper body Right earache-cerumen removed with water pick today in the office 07/18/2015 Appointment: (30 min) Complex 07/18/2015 Patient Education: Patient Medication Summary Completed 07/18/2015 Patient Education: Obesity Completed 07/18/2015 Patient Education: .Cervicalgia Neck Pain Completed 07/18/2015 [phone] [facility] Referral Completed 06/25/2015 Visit Plan: Hypertension [...] labs this week, get report from and [facility]. I spent over an hour with the patient in direct contact. 06/17/2015 Appointment: [facility] [phone] [facility] New Patient 06/17/2015 Patient Education: Patient Medication Summary Completed 06/17/2015 Patient Education: Obesity Completed 06/17/2015 Patient Education: Hypertension Completed 06/17/2015 Care Plan: Referral Order SNOMED-CT : [id number] Ordered 06/17/2015 Referral: Jorge Luis Carroll Referral Initiated Referral: [facility] WPtel: [phone] Referral Appointment Requested Instructions Comment . [...] pain - refilled fentanyl and hydrocodone today. . Hypertension - well controlled - continue [...] and PRN pain medications - will have fdc fax over PRN medication administration record. . [...] and understands the consequences of over-medication. . DM -decrease levemir to 4 units daily -monitor blood sugars TMK-bvmuvpmnan-ni changes Chronic pain -well controlled with fentanyl patch -no changes at this time . Hypertension - well controlled - continue with current medications, continue with no added salt diet. Pt has been encouraged to exercise daily. The pt has been advised to call the office if there are any acute concerns about change in blood pressure readings at home. DM-check hgb a1c Chronic pain -fairly well controlled with fentanyl patches-continue to monitor. Patient is unable to take in adequate nutrition orally due to history of stroke -this condition is permanent and will need tube feedings for the duration of her life. Due to this condition, tube feedings are required to provide sufficient nutrients to maintain weight and strength commensurate with the patient's overall health status. Adequate nutrition is not possible by dietary adjustments or oral supplements . Hypertension - well controlled - continue with current medications, continue with no added salt diet. Pt has been encouraged to exercise daily. The pt has been advised to call the office if there are any acute concerns about change in blood pressure readings at home. DM-check hgb a1c Chronic pain -fairly well controlled with fentanyl patches-continue to monitor. . Hypertension - too well controlled - [...] dose of duragesic from 150mcg to 175mcg. voltaren gel right knee cefdinir zpack prednisone albuterol breathing treatments probiotic BID . Pneumonia - Pt has been diagnosed with pneumonia by physical exam. A chest xray has been ordered as have antibiotics. The pt is aware of the diagnosis and the need for acute treatment of this illness. Right knee pain -xray knee-rx for voltaren gel Add 1 scoop of whey protein from [facility] to 2 feedings per day . [...] Follow up weight in 1 month Neck qxgw-lyteydnbegu-Sgsd PT focus neck/upper body Right earache-cerumen removed with water pick today in the office . Hypertension - well controlled - continue with current medications, continue with no added salt diet. Pt has been encouraged to exercise daily. The pt has been advised to call the office if there are any acute concerns about change in blood pressure readings at home. DM - with low blood glucose - I have recommended that we dc levemir due to poor intake and the low blood glucose readings. Chronic pain - with end stage decline - continue with fentanyl patches, continue with hospice. . PEG tube - tube has not been replaced in some time, some mild irritation noted around the tube - will refer to surgeon for PEG tube replacement. Pt/family is to notify clinic with any changes, questions, or concerns. . Hypertension - well controlled - continue [...] normal liver response to medications. referral to [facility] for post stroke - left sided weakness, neck stiffness, upper extremity weakness Diabetes Mellitus - controlled - per family report - check labs this week, get report from and [facility]. I spent over an hour with the patient in direct contact. . Hypertension - well controlled - continue [...]
--- OUTSIDE RECORDS SUMMARY | 2018-08-09 10:14 | XMS REPORT | CCD ---
Author Author [facility] Organization [facility] Address [address] [place] [address] Phone Care Team Providers Care Indian Trader Name Role Phone PP Unavailable CCM Unavailable Summary Purpose Interface Exchange Insurance Providers Payer name Policy type / Coverage type Covered libertarian ID Effective Begin Date Effective End Date WPS Medicare Part B Medicare Part B [id number] Unknown Unknown [employer] Medicare Part B [id number] Unknown Unknown Family history Father Diagnosis Age At Onset Arthritis Unknown Hypertension Unknown Mother Diagnosis Age At Onset Diabetes mellitus Type 2 Unknown Depression Unknown Arthritis Unknown Stroke Unknown Hypertension Unknown Sister Diagnosis Age At Onset Colon cancer Unknown Social History Social History Element Codes Description Effective Dates Marital status Unknown Maurice 01/07/2018 Living arrangements Unknown Senior Care [facility] 04/15/2017 Number of children Unknown 3 06/17/2015 Employment Unknown Retired 06/17/[address]: 9635407 Quit over 10 years ago 15+ 06/17/[address]: 644511592 Never drinks alcohol 06/17/2015 Allergies, Adverse Reactions, [...] Instructions fentanyl 100 mcg/hr transdermal patch RxNorm: 402817 1 Patch TD Q72H 08/01/2018 08/30/2018 Active hydrocodone 10 mg-acetaminophen 325 mg tablet RxNorm: 673383 2 Tablet(s) PO scheduled TID 08/01/2018 08/15/2018 Active Not to exceed 3gm/24hr acetaminophen hyoscyamine 0.125 mg disintegrating tablet RxNorm: 9082893 Tablet(s) Tablet(s) 1-2 Tablet(s) PO Q8 as needed 08/01/2018 No Stop Date Active Duragesic 75 mcg/hr transdermal patch RxNorm: 147355 1 Patch TD Q72H 08/01/2018 08/30/2018 Active hydrocodone 10 mg-acetaminophen 325 mg tablet RxNorm: 926611 2 Tablet(s) PO scheduled TID 07/19/2018 07/31/2018 Inactive Not to exceed 3gm/24hr acetaminophen lorazepam 0.5 mg tablet RxNorm: 350611 1 Tablet(s) PO BID and 1 tab q 6 hours prn 07/05/2018 No Stop Date Active Duragesic 75 mcg/hr transdermal patch RxNorm: 885555 1 Patch TD Q72H 07/05/2018 07/31/2018 Inactive fentanyl 100 mcg/hr transdermal patch RxNorm: 640228 1 Patch TD Q72H 07/05/2018 07/31/2018 Inactive hydrocodone 10 mg-acetaminophen 325 mg tablet RxNorm: 633260 2 Tablet(s) PO scheduled TID 07/05/2018 07/18/2018 Inactive Not to exceed 3gm/24hr acetaminophen hydrocodone 10 mg-acetaminophen 325 mg tablet RxNorm: 781861 2 Tablet(s) PO scheduled TID 06/22/2018 07/04/2018 Inactive Not to exceed 3gm/24hr acetaminophen citalopram 40 mg tablet RxNorm: 006435 1 Tablet(s) PO daily 06/20/2018 05/15/2019 Active Voltaren 1 % topical gel RxNorm: 321503 APPLY 4 GRAMS TO RIGHT KNEE FOUR TIMES DAILY 06/13/2018 07/06/2018 Inactive Generic For:VOLTAREN GEL 1% 06/13/2018 10:59:02 AM hydrocodone 10 mg-acetaminophen 325 mg tablet RxNorm: 525123 2 Tablet(s) PO scheduled TID 06/07/2018 06/21/2018 Inactive Not to exceed 3gm/24hr acetaminophen fentanyl 100 mcg/hr transdermal patch RxNorm: 393401 1 Patch TD Q72H 06/03/2018 07/02/2018 Inactive Duragesic 75 mcg/hr transdermal patch RxNorm: 335418 1 Patch TD Q72H 06/03/2018 07/02/2018 Inactive hyoscyamine 0.125 mg disintegrating tablet RxNorm: 9690838 Tablet(s) Tablet(s) 1-2 Tablet(s) PO Q8 as needed 05/27/2018 07/31/2018 Inactive lorazepam 0.5 mg tablet RxNorm: 725504 1 Tablet(s) PO BID and 1 tab q 6 hours prn 05/24/2018 No Stop Date Active hydrocodone 10 mg-acetaminophen 325 mg tablet RxNorm: 978398 2 Tablet(s) PO scheduled TID 05/24/2018 06/06/2018 Inactive Not to exceed 3gm/24hr acetaminophen citalopram 20 mg tablet RxNorm: 608641 1 Tablet(s) PO daily 05/17/2018 06/19/2018 Inactive hydrocodone 10 mg-acetaminophen 325 mg tablet RxNorm: 009730 2 Tablet(s) PO scheduled TID 04/19/2018 05/18/2018 Inactive Not to exceed 3gm/24hr acetaminophen lorazepam 0.5 mg tablet RxNorm: 788082 1 Tablet(s) PO BID and 1 tab q 6 hours prn 04/07/2018 05/23/2018 Inactive hyoscyamine 0.125 mg disintegrating tablet RxNorm: 9347872 Tablet(s) 1-2 Tablet(s) PO Q8 as needed 03/31/2018 05/26/2018 Inactive Duragesic 75 mcg/hr transdermal patch RxNorm: 991862 1 Patch TD Q72H 03/31/2018 04/29/2018 Inactive fentanyl 100 mcg/hr transdermal patch RxNorm: 297199 1 Patch TD Q72H 03/31/2018 04/29/2018 Inactive carvedilol 3.125 mg tablet RxNorm: 592550 Tablet(s) GIVE 1 TABLET VIA PEG TUBE 2 TIMES A DAY 03/30/2018 06/27/2018 Inactive Generic For:COREG 3.125MG 10/22/2017 9:23:30 AM Voltaren 1 % topical gel RxNorm: 226682 APPLY 4 GRAMS TO RIGHT KNEE FOUR TIMES DAILY 03/30/2018 04/22/2018 Inactive Generic For:VOLTAREN GEL 1% 03/30/2018 11:14:57 AM hydrocodone 10 mg-acetaminophen 325 mg tablet RxNorm: 075397 2 Tablet(s) PO scheduled TID 03/23/2018 04/18/2018 Inactive Not to exceed 3gm/24hr acetaminophen albuterol sulfate concentrate 5 mg/mL(0.5 %) solution for nebulization RxNorm: 460645 1 Vial Milliliter(s) INH TID PRN as needed congestion 03/18/2018 No Stop Date Active cefdinir 300 mg capsule RxNorm: 249017 1 Capsule(s) PO BID 03/18/2018 03/24/2018 Inactive Zithromax Z-Eliu 250 mg tablet RxNorm: 693324 Tablet(s) PO 03/18/2018 05/16/2018 Inactive Voltaren 1 % topical gel RxNorm: 467052 4 Gram(s) TOP QID 03/18/2018 03/29/2018 Inactive hydrochlorothiazide 25 mg tablet RxNorm: 565938 GIVE 1 TABLET VIA PEG TUBE ONCE DAILY 03/11/2018 09/06/2018 Active Generic For:HYDRODIURIL 25 MG TABLET 03/11/2018 9:15:32 AM fentanyl 100 mcg/hr transdermal patch RxNorm: 288710 1 Patch TD Q72H 03/02/2018 03/30/2018 Inactive Duragesic 75 mcg/hr transdermal patch RxNorm: 641063 1 Patch TD Q72H 03/02/2018 03/30/2018 Inactive hydrocodone 10 mg-acetaminophen 325 mg tablet RxNorm: 143225 2 Tablet(s) PO scheduled TID 02/18/2018 03/22/2018 Inactive Not to exceed 3gm/24hr acetaminophen hyoscyamine 0.125 mg disintegrating tablet RxNorm: 0329140 Tablet(s) 1-2 Tablet(s) PO Q8 as needed 02/08/2018 03/30/2018 Inactive fentanyl 100 mcg/hr transdermal patch RxNorm: 895997 1 Patch TD Q72H 02/04/2018 03/01/2018 Inactive hydrocodone 10 mg-acetaminophen 325 mg tablet RxNorm: 034943 2 Tablet(s) PO scheduled TID 02/04/2018 02/17/2018 Inactive Not to exceed 3gm/24hr acetaminophen Duragesic 75 mcg/hr transdermal patch RxNorm: 873441 1 Patch TD Q72H 02/04/2018 03/01/2018 Inactive Duragesic 75 mcg/hr transdermal patch RxNorm: 530444 1 Patch TD Q72H 01/07/2018 02/03/2018 Inactive Levemir FlexTouch U-100 Insulin 100 unit/mL (3 mL) subcutaneous pen RxNorm: 431919 4 Unit(s) SQ QHS 01/07/2018 07/13/2018 Inactive fentanyl 100 mcg/hr transdermal patch RxNorm: 583653 1 Patch TD Q72H 01/07/2018 02/03/2018 Inactive hydrocodone 10 mg-acetaminophen 325 mg tablet RxNorm: 850015 2 Tablet(s) PO scheduled TID 01/05/2018 02/03/2018 Inactive Not to exceed 3gm/24hr acetaminophen hydrocodone 10 mg-acetaminophen 325 mg tablet RxNorm: 361490 2 Tablet(s) PO scheduled TID and 1 tab q 4 as needed 01/04/2018 01/04/2018 Inactive Not to exceed 3gm/24hr acetaminophen cyanocobalamin (vit B-12) 1,000 mcg tablet RxNorm: 729357 1 Tablet(s) PO daily 12/28/2017 11/22/2018 Active baclofen 10 mg tablet RxNorm: 212027 Tablet(s) TAKE 1 TABLET THREE TIMES DAILY VIA STOMACH TUBE 12/27/2017 05/25/2018 Inactive 10/07/2017 5:36:15 PM 10/07/2017 5:36:13 PM N O T I C E Last quantity doesn't match original quantity Duragesic 75 mcg/hr transdermal patch RxNorm: 802365 1 Patch TD Q72H 12/22/2017 01/06/2018 Inactive fentanyl 100 mcg/hr transdermal patch RxNorm: 446585 1 Patch TD Q72H 12/22/2017 01/06/2018 Inactive hydrocodone 10 mg-acetaminophen 325 mg tablet RxNorm: 127279 2 Tablet(s) PO scheduled TID and 1 tab q 4 as needed 12/20/2017 01/03/2018 Inactive Not to exceed 3gm/24hr acetaminophen hyoscyamine 0.125 mg disintegrating tablet RxNorm: 3068251 1-2 Tablet(s) PO Q8 as needed 12/14/2017 02/07/2018 Inactive Duragesic 75 mcg/hr transdermal patch RxNorm: 381846 1 Patch TD Q72H 12/06/2017 12/21/2017 Inactive fentanyl 100 mcg/hr transdermal patch RxNorm: 650707 1 Patch TD Q72H 12/06/2017 12/21/2017 Inactive hydrocodone 10 mg-acetaminophen 325 mg tablet RxNorm: 863413 2 Tablet(s) PO scheduled TID and 1 tab q 4 as needed 11/29/2017 12/19/2017 Inactive Not to exceed 3gm/24hr acetaminophen Duragesic 75 mcg/hr transdermal patch RxNorm: 875932 1 Patch TD Q72H 11/11/2017 12/05/2017 Inactive hydrocodone 10 mg-acetaminophen 325 mg tablet RxNorm: 064897 2 Tablet(s) PO scheduled TID and 1 tab q 4 as needed 11/09/2017 11/28/2017 Inactive Not to exceed 3gm/24hr acetaminophen Levemir FlexTouch U-100 Insulin 100 unit/mL (3 mL) subcutaneous pen RxNorm: 218615 8 Unit(s) SQ QHS 11/09/2017 01/06/2018 Inactive fentanyl 100 mcg/hr transdermal patch RxNorm: 664993 1 Patch TD Q72H 2017 12/05/2017 Inactive hyoscyamine 0.125 mg disintegrating tablet RxNorm: 8663238 1-2 Tablet(s) PO Q8 as needed 11/03/2017 12/13/2017 Inactive carvedilol 3.125 mg tablet RxNorm: 208153 GIVE 1 TABLET VIA PEG TUBE 2 TIMES A DAY 10/22/2017 01/19/2018 Inactive Generic For:COREG 3.125MG 10/22/2017 9:23:30 AM hydrocodone 10 mg-acetaminophen 325 mg tablet RxNorm: 224007 2 Tablet(s) PO scheduled TID and 1 tab q 4 as needed 10/22/2017 2017 Inactive Not to exceed 3gm/24hr acetaminophen fentanyl 100 mcg/hr transdermal patch RxNorm: 821749 1 Patch TD Q72H 10/20/2017 11/07/2017 Inactive Duragesic 75 mcg/hr transdermal patch RxNorm: 753293 1 Patch TD Q72H 10/20/2017 11/10/2017 Inactive lorazepam 0.5 mg tablet RxNorm: 002847 1 Tablet(s) PO BID and 1 tab q 6 hours prn 10/18/2017 07/04/2018 Inactive baclofen 10 mg tablet RxNorm: 880788 TAKE 1 TABLET THREE TIMES DAILY VIA STOMACH TUBE 10/07/2017 12/26/2017 Inactive 10/07/2017 5:36:15 PM 10/07/2017 5:36:13 PM N O T I C E Last quantity doesn't match original quantity cranberry extract 500 mg tablet RxNorm: 0163437 1 Tablet(s) PO QAM 10/04/2017 01/31/2018 Inactive Cipro 500 mg tablet RxNorm: 501363 1 Tablet(s) PO BID 10/04/2017 10/03/2017 Inactive dc keflex hydrocodone 10 mg-acetaminophen 325 mg tablet RxNorm: 345143 2 Tablet(s) PO scheduled TID as needed 10/04/2017 10/21/2017 Inactive Not to exceed 3gm/24hr acetaminophen cranberry extract 500 mg tablet RxNorm: 3449546 1 Tablet(s) PO QAM 10/04/2017 10/03/2017 Inactive Cipro 500 mg tablet RxNorm: 003472 1 Tablet(s) PO BID 10/04/2017 10/10/2017 Inactive dc keflex Duragesic 75 mcg/hr transdermal patch RxNorm: 091820 1 Patch TD Q72H 09/20/2017 10/19/2017 Inactive fentanyl 100 mcg/hr transdermal patch RxNorm: 114157 1 Patch TD Q72H 09/20/2017 10/19/2017 Inactive hyoscyamine 0.125 mg disintegrating tablet RxNorm: 9889972 1 Tablet(s) PO TID and 1 Tablet Q4H prn increased secretions 09/15/2017 11/02/2017 Inactive hydrocodone 10 mg-acetaminophen 325 mg tablet RxNorm: 116830 2 Tablet(s) PO scheduled TID and 1-2 Tabs Q4H PRN pain 09/15/2017 10/03/2017 Inactive Not to exceed 3gm/24hr acetaminophen lorazepam 0.5 mg tablet RxNorm: 917397 1 Tablet(s) PO BID 09/15/2017 10/17/2017 Inactive Lexapro 10 mg tablet RxNorm: 415740 1 Tablet(s) PO daily 09/10/2017 09/14/2017 Inactive Levemir FlexTouch U-100 Insulin 100 unit/mL (3 mL) subcutaneous pen RxNorm: 655348 10 Unit(s) daily 09/09/2017 09/15/2017 Inactive lisinopril 10 mg tablet RxNorm: 392992 1 Tablet(s) PO daily 09/09/2017 05/16/2018 Inactive Duragesic 75 mcg/hr transdermal patch RxNorm: 431340 1 Patch TD Q72H 09/09/2017 09/19/2017 Inactive nystatin 100,000 unit/gram topical cream RxNorm: 912000 1 Gram(s) TOP TID until healed to gaulding 09/06/2017 07/12/2018 Inactive nystatin 100,000 unit/gram topical cream RxNorm: 433320 1 Gram(s) TOP TID until healed to gaulding 09/06/2017 09/05/2017 Inactive hydrocodone 10 mg-acetaminophen 325 mg tablet RxNorm: 157351 2 Tablet(s) PO scheduled TID as needed 08/31/2017 09/14/2017 Inactive Not to exceed 3gm/24hr acetaminophen fentanyl 100 mcg/hr transdermal patch RxNorm: 284296 1 Patch TD Q72H 08/24/2017 09/19/2017 Inactive fentanyl 50 mcg/hr transdermal patch RxNorm: 570720 1 Patch TD Q72H 08/24/2017 09/08/2017 Inactive fentanyl 25 mcg/hr transdermal patch RxNorm: 977900 1 Patch TD Q72H 08/24/2017 08/24/2017 Inactive hyoscyamine 0.125 mg disintegrating tablet RxNorm: 6218694 Tablet(s) 1-2 Tablet(s) PO Q8 as needed 08/23/2017 09/14/2017 Inactive hydrocodone 10 mg-acetaminophen 325 mg tablet RxNorm: 617516 1 Tablet(s) PO scheduled TID et Q6 hours as needed 08/18/2017 08/30/2017 Inactive Not to exceed 3gm/24hr acetaminophen hydrochlorothiazide 25 mg tablet RxNorm: 898613 GIVE 1 TABLET VIA PEG TUBE ONCE DAILY 08/17/2017 02/12/2018 Inactive Generic For:HYDRODIURIL 25 MG TABLET 08/17/2017 9:01:54 AM08/11/2017 10:12:00 AM lorazepam 0.5 mg tablet RxNorm: 776464 1/2 Tablet(s) PO BID 08/03/2017 09/14/2017 Inactive fentanyl 100 mcg/hr transdermal patch RxNorm: 382913 1 Patch TD Q72H 07/26/2017 08/23/2017 Inactive fentanyl 25 mcg/hr transdermal patch RxNorm: 425355 1 Patch TD Q72H 07/26/2017 08/23/2017 Inactive hydrocodone 10 mg-acetaminophen 325 mg tablet RxNorm: 919076 1 Tablet(s) PO scheduled TID et Q6 hours as needed 07/16/2017 08/14/2017 Inactive Not to exceed 3gm/24hr acetaminophen hyoscyamine 0.125 mg disintegrating tablet RxNorm: 7504149 Tablet(s) 1-2 Tablet(s) PO Q8 as needed 07/13/2017 08/01/2017 Inactive baclofen 10 mg tablet RxNorm: 120945 TAKE 1 TABLET THREE TIMES DAILY VIA STOMACH TUBE 07/12/2017 10/06/2017 Inactive 07/12/2017 9:04:08 AM N O T I C E Last quantity doesn't match original quantity lorazepam 0.5 mg tablet RxNorm: 924909 1/2 Tablet(s) PO BID 07/02/2017 08/02/2017 Inactive fentanyl 100 mcg/hr transdermal patch RxNorm: 183750 1 Patch TD Q72H 06/28/2017 07/25/2017 Inactive fentanyl 25 mcg/hr transdermal patch RxNorm: 274727 1 Patch TD Q72H 06/28/2017 07/25/2017 Inactive hyoscyamine 0.125 mg disintegrating tablet RxNorm: 7291134 Tablet(s) 1-2 Tablet(s) PO Q8 as needed 06/03/2017 06/22/2017 Inactive fentanyl 25 mcg/hr transdermal patch RxNorm: 140703 1 Patch TD Q72H 05/26/2017 06/24/2017 Inactive Levemir FlexTouch U-100 Insulin 100 unit/mL (3 mL) subcutaneous pen RxNorm: 619992 20 Unit(s) SQ BID 05/26/2017 09/08/2017 Inactive fentanyl 100 mcg/hr transdermal patch RxNorm: 487119 1 Patch TD Q72H 05/26/2017 06/24/2017 Inactive hydrocodone 10 mg-acetaminophen 325 mg tablet RxNorm: 799002 1 Tablet(s) PO scheduled BID et Q6 hours as needed 05/12/2017 05/11/2017 Inactive hydrocodone 10 mg-acetaminophen 325 mg tablet RxNorm: 008536 1 Tablet(s) PO scheduled TID et Q6 hours as needed 05/12/2017 06/10/2017 Inactive Not to exceed 3gm/24hr acetaminophen docusate sodium 100 mg tablet RxNorm: 6907164 1 Tablet(s) PO BID as needed if no bowel movement 05/10/2017 05/09/2017 Inactive lisinopril 20 mg tablet RxNorm: 914150 1 Tablet(s) PO daily 05/10/2017 09/08/2017 Inactive docusate sodium 100 mg tablet RxNorm: 1824059 1 Tablet(s) PO BID as needed if no bowel movement 05/10/2017 09/14/2017 Inactive fentanyl 25 mcg/hr transdermal patch RxNorm: 772494 1 Patch TD Q72H 05/03/2017 05/25/2017 Inactive lorazepam 0.5 mg tablet RxNorm: 729571 1/2 Tablet(s) PO BID 05/03/2017 07/01/2017 Inactive fentanyl 100 mcg/hr transdermal patch RxNorm: 293630 1 Patch TD Q72H 04/27/2017 05/25/2017 Inactive carvedilol 3.125 mg tablet RxNorm: 257391 Tablet(s) GIVE 1 TABLET VIA PEG TUBE DAILY 04/15/2017 10/21/2017 Inactive Levemir FlexTouch 100 unit/mL (3 mL) subcutaneous insulin pen RxNorm: 648671 10 Unit(s) SQ BID 04/15/2017 2017 Inactive hyoscyamine 0.125 mg disintegrating tablet RxNorm: 5367253 1-2 Tablet(s) PO Q8 as needed 04/14/2017 05/03/2017 Inactive hydrocodone 10 mg-acetaminophen 325 mg tablet RxNorm: 413194 1 Tablet(s) PO scheduled BID et Q6 hours as needed 04/13/2017 05/02/2017 Inactive baclofen 10 mg tablet RxNorm: 935066 TAKE 1 TABLET THREE TIMES DAILY VIA STOMACH TUBE 04/08/2017 05/22/2017 Inactive 04/08/2017 9:32:07 AM fentanyl 25 mcg/hr transdermal patch RxNorm: 878387 1 Patch TD Q72H 04/05/2017 05/02/2017 Inactive lidocaine 10 mg/mL (1 %) injection solution RxNorm: 7642500 1 Milliliter(s) Inj daily Mix with rocephin 03/31/2017 03/30/2017 Inactive Pt resides at [facility] lidocaine 10 mg/mL (1 %) injection solution RxNorm: 0711777 1 Milliliter(s) Inj daily Mix with rocephin 03/31/2017 04/06/2017 Inactive Pt resides at [facility] fentanyl 100 mcg/hr transdermal patch RxNorm: 107936 1 Patch TD Q72H 03/29/2017 04/26/2017 Inactive nystatin 100,000 unit/gram topical powder RxNorm: 292816 APPLY UNDER BREASTS TWICE DAILY FOR YEAST SKIN INFECTION AND APPLY TO UNDERARM AND ABDOMINAL FOLDS AND PERIAREA TWICE DAILY 03/29/2017 03/28/2017 Inactive 03/27/2017 9:12:50 AM nystatin 100,000 unit/gram topical powder RxNorm: 112442 APPLY UNDER BREASTS TWICE DAILY FOR YEAST SKIN INFECTION AND APPLY TO UNDERARM AND ABDOMINAL FOLDS AND PERIAREA TWICE DAILY 03/29/2017 09/14/2017 Inactive 03/29/2017 9:42:55 AM03/27/2017 9:12:50 AM hyoscyamine 0.125 mg disintegrating tablet RxNorm: 8199307 1-2 Tablet(s) PO Q8 as needed 03/08/2017 03/27/2017 Inactive fentanyl 25 mcg/hr transdermal patch RxNorm: 873743 1 Patch TD Q72H 03/02/2017 03/31/2017 Inactive hydrocodone 10 mg-acetaminophen 325 mg tablet RxNorm: 321892 1 Tablet(s) PO scheduled BID et Q6 hours as needed 02/17/2017 03/18/2017 Inactive fentanyl 100 mcg/hr transdermal patch RxNorm: 475848 1 Patch TD Q72H 02/17/2017 03/18/2017 Inactive Lexapro 10 mg tablet RxNorm: 163046 1 Tablet(s) PO daily 02/05/2017 04/14/2017 Inactive Lexapro 10 mg tablet RxNorm: 069422 1 Tablet(s) PO daily 02/05/2017 02/04/2017 Inactive fentanyl 25 mcg/hr transdermal patch RxNorm: 239899 1 Patch TD Q72H 02/04/2017 03/01/2017 Inactive cyanocobalamin (vit B-12) 1,000 mcg tablet RxNorm: 590753 1 Tablet(s) PO daily 01/18/2017 12/13/2017 Inactive hyoscyamine 0.125 mg disintegrating tablet RxNorm: 4112176 Tablet(s) 1-2 Tablet(s) PO Q8 as needed 01/18/2017 02/06/2017 Inactive baclofen 10 mg tablet RxNorm: 755001 TAKE 1 TABLET THREE TIMES DAILY VIA STOMACH TUBE 01/04/2017 02/17/2017 Inactive 01/04/2017 9:25:18 AM fentanyl 100 mcg/hr transdermal patch RxNorm: 282311 1 Patch TD Q72H 12/25/2016 01/23/2017 Inactive hydrochlorothiazide 25 mg tablet RxNorm: 005230 Tablet(s) GIVE 1 TABLET VIA PEG TUBE ONCE A DAY 12/14/2016 07/11/2017 Inactive fentanyl 100 mcg/hr transdermal patch RxNorm: 462371 1 Patch TD Q72H 11/25/2016 12/24/2016 Inactive hyoscyamine 0.125 mg disintegrating tablet RxNorm: 3251562 Tablet(s) 1-2 Tablet(s) PO Q8 as needed 11/25/2016 12/14/2016 Inactive nystatin 100,000 unit/gram topical powder RxNorm: 907231 APPLY UNDER BREASTS TWICE DAILY FOR YEAST SKIN INFECTION AND APPLY TO UNDERARM AND ABDOMINAL FOLDS AND PERIAREA TWICE DAILY 11/24/2016 01/22/2017 Inactive 11/24/2016 9:34:02 AM hydrocodone 10 mg-acetaminophen 325 mg tablet RxNorm: 050817 1 Tablet(s) PO scheduled BID et Q6 hours as needed 11/02/2016 12/01/2016 Inactive cyanocobalamin (vit B-12) 1,000 mcg tablet RxNorm: 640597 1 Tablet(s) PO daily 11/02/2016 01/17/2017 Inactive hyoscyamine 0.125 mg disintegrating tablet RxNorm: 4603471 1-2 Tablet(s) PO Q8 as needed 10/19/2016 11/24/2016 Inactive fentanyl 100 mcg/hr transdermal patch RxNorm: 957233 1 Patch TD Q72H 10/13/2016 11/11/2016 Inactive hydrocodone 10 mg-acetaminophen 325 mg tablet RxNorm: 623683 1 Tablet(s) PO scheduled BID et Q6 hours as needed 10/05/2016 11/01/2016 Inactive baclofen 10 mg tablet RxNorm: 428552 TAKE 1 TABLET THREE TIMES DAILY VIA STOMACH TUBE 10/01/2016 11/14/2016 Inactive 10/01/2016 9:24:37 AM carvedilol 3.125 mg tablet RxNorm: 878822 GIVE 1 TABLET VIA PEG TUBE 2 TIMES A DAY 09/30/2016 12/28/2016 Inactive Generic For:COREG 3.125MG 09/30/2016 1:12:28 PM09/25/2016 9:06:11 AM Probiotic Blend 2 million cell-50 mg capsule RxNorm: 1 Capsule(s) PO BID 09/17/2016 09/23/2016 Inactive Keflex 500 mg capsule RxNorm: 103892 1 Capsule(s) PO TID 09/17/2016 09/23/2016 Inactive hyoscyamine 0.125 mg/5 mL oral elixir RxNorm: 4925937 5 Milliliter(s) PO TID 09/08/2016 09/17/2016 Inactive hyoscyamine 0.125 mg/5 mL oral elixir RxNorm: 5328949 5 Milliliter(s) PO TID 09/08/2016 09/07/2016 Inactive hyoscyamine 0.125 mg disintegrating tablet RxNorm: 0576580 1-2 Tablet(s) PO Q8 as needed 09/07/2016 10/18/2016 Inactive fentanyl 100 mcg/hr transdermal patch RxNorm: 084728 1 Patch TD Q72H 09/01/2016 09/30/2016 Inactive ranitidine 150 mg tablet RxNorm: 440316 1 Tablet(s) PO BID 08/25/2016 No Stop Date Active hydrocodone 10 mg-acetaminophen 325 mg tablet RxNorm: 914349 1 Tablet(s) PO scheduled BID et Q6 hours as needed 08/24/2016 09/22/2016 Inactive cyanocobalamin (vit B-12) 1,000 mcg tablet RxNorm: 671973 1 Tablet(s) PO daily 08/12/2016 11/01/2016 Inactive cyanocobalamin (vit B-12) 1,000 mcg tablet RxNorm: 206618 1 Tablet(s) PO daily 08/12/2016 08/11/2016 Inactive hydrocodone 10 mg-acetaminophen 325 mg tablet RxNorm: 425683 1-2 Tablet(s) PO Q6 as needed 08/03/2016 08/17/2016 Inactive fentanyl 100 mcg/hr transdermal patch RxNorm: 588270 1 Patch TD Q72H 08/03/2016 08/31/2016 Inactive nystatin 100,000 unit/gram topical powder RxNorm: 815718 APPLY UNDER BREASTS TWICE DAILY FOR YEAST SKIN INFECTION AND APPLY TO UNDERARM AND ABDOMINAL FOLDS AND PERIAREA TWICE DAILY 07/17/2016 09/14/2016 Inactive 07/17/2016 3:56:54 PM fentanyl 100 mcg/hr transdermal patch RxNorm: 700934 1 Patch TD Q72H 07/15/2016 08/02/2016 Inactive lisinopril 20 mg tablet RxNorm: 288933 1 Tablet(s) PO daily 07/02/2016 03/28/2017 Inactive hydrocodone 10 mg-acetaminophen 325 mg tablet RxNorm: 786484 1-2 Tablet(s) PO Q6 as needed 07/01/2016 07/15/2016 Inactive Xarelto 20 mg tablet RxNorm: 4701367 Tablet(s) TAKE 1 TABLET VIA PEG TUBE AT BEDTIME 06/19/2016 04/14/2017 Inactive fentanyl 100 mcg/hr transdermal patch RxNorm: 971735 1 Patch TD Q72H 06/17/2016 07/14/2016 Inactive nystatin 100,000 unit/gram topical powder RxNorm: 094967 APPLY TO UNDER BREASTS TWICE DAILY FOR YEAST SKIN INFECTION AND APPLY TO UNDERARM AND ABDOMINAL FOLDS AND PERIAREA TWICE DAILY 06/15/2016 07/16/2016 Inactive Generic For:MYCOSTATIN 100,000 UNITS/GM PW 06/15/2016 12:28:26 PM fentanyl 100 mcg/hr transdermal patch RxNorm: 898011 1 Patch TD Q72H 06/05/2016 06/16/2016 Inactive hydrocodone 10 mg-acetaminophen 325 mg tablet RxNorm: 855465 1-2 Tablet(s) PO Q6 as needed 06/02/2016 06/16/2016 Inactive Probiotic Blend 2 million cell-50 mg capsule RxNorm: 1 Capsule(s) PO BID 05/13/2016 05/19/2016 Inactive nitrofurantoin 100 mg capsule RxNorm: 445312 1 Capsule(s) PO BID 05/13/2016 05/19/2016 Inactive nitrofurantoin 100 mg capsule RxNorm: 490601 1 Capsule(s) PO BID 05/13/2016 05/12/2016 Inactive fentanyl 75 mcg/hr transdermal patch RxNorm: 213144 1 Patch TD Q72H 05/13/2016 06/04/2016 Inactive Keflex 500 mg capsule RxNorm: 265407 1 Capsule(s) PO TID 05/07/2016 05/13/2016 Inactive Patient at [facility] Keflex 500 mg capsule RxNorm: 072493 1 Capsule(s) PO TID 05/07/2016 05/06/2016 Inactive hydrocodone 10 mg-acetaminophen 325 mg tablet RxNorm: 888338 1-2 Tablet(s) PO Q6 as needed 05/04/2016 06/01/2016 Inactive hydrochlorothiazide 25 mg tablet RxNorm: 859479 Tablet(s) GIVE 1 TABLET VIA PEG TUBE ONCE A DAY 04/29/2016 11/24/2016 Inactive hydrochlorothiazide 25 mg tablet RxNorm: 687150 GIVE 1 TABLET VIA PEG TUBE ONCE A DAY 04/22/2016 04/28/2016 Inactive Generic For:HYDRODIURIL 25 MG TABLET refill request fentanyl 75 mcg/hr transdermal patch RxNorm: 913188 1 Patch TD Q72H 04/17/2016 05/12/2016 Inactive Xarelto 20 mg tablet RxNorm: 5218615 TAKE 1 TABLET VIA PEG TUBE AT BEDTIME 04/16/2016 06/14/2016 Inactive 04/16/2016 9:08:52 AM citalopram 40 mg tablet RxNorm: 063220 1 Tablet(s) PO daily 04/02/2016 02/25/2017 Inactive citalopram 40 mg tablet RxNorm: 442410 1 Tablet(s) PO daily 03/27/2016 04/01/2016 Inactive hydrocodone 10 mg-acetaminophen 325 mg tablet RxNorm: 935324 1-2 Tablet(s) PO Q6 as needed 03/27/2016 04/25/2016 Inactive fentanyl 75 mcg/hr transdermal patch RxNorm: 737964 1 Patch TD Q72H 03/18/2016 04/16/2016 Inactive hydrocodone 10 mg-acetaminophen 325 mg tablet RxNorm: 665203 1-2 Tablet(s) PO Q6 as needed 03/11/2016 03/26/2016 Inactive citalopram 40 mg tablet RxNorm: 993368 1 Tablet(s) PO daily 03/04/2016 03/26/2016 Inactive Levemir FlexTouch U-100 Insulin 100 unit/mL (3 mL) subcutaneous pen RxNorm: 664625 20 Unit(s) SQ BID 03/02/2016 09/27/2016 Inactive lisinopril 20 mg tablet RxNorm: 233003 1 Tablet(s) PO daily 02/25/2016 07/01/2016 Inactive Ativan 0.5 mg tablet RxNorm: 754541 1 Tablet(s) PO Q4H as needed 02/18/2016 04/14/2017 Inactive Xarelto 20 mg tablet RxNorm: 2189031 TAKE 1 TABLET VIA PEG TUBE AT BEDTIME 02/12/2016 04/11/2016 Inactive 02/12/2016 9:08:22 AM hydrocodone 10 mg-acetaminophen 325 mg tablet RxNorm: 310420 1-2 Tablet(s) PO Q6 as needed 02/12/2016 03/10/2016 Inactive fentanyl 75 mcg/hr transdermal patch RxNorm: 264690 1 Patch TD Q72H 02/11/2016 03/11/2016 Inactive citalopram 20 mg tablet RxNorm: 686918 1 Tablet(s) PO daily 01/28/2016 03/03/2016 Inactive fentanyl 75 mcg/hr transdermal patch RxNorm: 384111 1 TD Q72H 01/17/2016 02/10/2016 Inactive hydrocodone 10 mg-acetaminophen 325 mg tablet RxNorm: 927440 1-2 Tablet(s) PO Q6 as needed 01/07/2016 02/05/2016 Inactive fentanyl 50 mcg/hr transdermal patch RxNorm: 233590 1 TD Q72H 01/01/2016 01/16/2016 Inactive fentanyl 50 mcg/hr transdermal patch RxNorm: 669745 1 TD q 3 days 12/26/2015 12/31/2015 Inactive Xarelto 20 mg tablet RxNorm: 3940424 TAKE 1 TABLET VIA PEG TUBE AT BEDTIME 12/17/2015 02/11/2016 Inactive 12/16/2015 3:27:57 PM12/14/2015 9:45:17 AM hydrocodone 10 mg-acetaminophen 325 mg tablet RxNorm: 048440 1-2 Tablet(s) PO Q6 as needed 12/06/2015 01/04/2016 Inactive fentanyl 50 mcg/hr transdermal patch RxNorm: 027598 1 TD q 3 days 12/06/2015 12/25/2015 Inactive fentanyl 25 mcg/hr transdermal patch RxNorm: 047185 1 TD q 3 days 11/18/2015 12/05/2015 Inactive Zithromax Z-Eliu 250 mg tablet RxNorm: 108653 1 Tablet(s) PO UD 10/09/2015 02/26/2016 Inactive z pack as directed- please write out instructions- pt at [facility] nystatin 100,000 unit/gram topical powder RxNorm: 052770 APPLY TO UNDER BREASTS TWICE DAILY FOR YEAST SKIN INFECTION AND APPLY TO UNDERARM AND ABDOMINAL FOLDS AND PERIAREA TWICE DAILY 10/07/2015 12/05/2015 Inactive Generic For:MYCOSTATIN 100,000 UNITS/GM PW 10/05/2015 12:07:35 PM fentanyl 25 mcg/hr transdermal patch RxNorm: 236967 1 TD q 3 days 10/03/2015 11/01/2015 Inactive fentanyl 25 mcg/hr transdermal patch RxNorm: 059684 1 TD q 3 days 09/27/2015 10/02/2015 Inactive fentanyl 25 mcg/hr transdermal patch RxNorm: 098142 1 TD q 3 days 09/17/2015 09/26/2015 Inactive fentanyl 25 mcg/hr transdermal patch RxNorm: 427235 1 TD q 3 days 08/30/2015 09/16/2015 Inactive hydrocodone 5 mg-acetaminophen 325 mg tablet RxNorm: 007562 1 Tablet(s) PO Q6 as needed 08/30/2015 09/28/2015 Inactive Diflucan 100 mg tablet RxNorm: 515843 1 Tablet(s) Miscellaneous per peg daily 07/29/2015 08/04/2015 Inactive fentanyl 25 mcg/hr transdermal patch RxNorm: 650787 1 TD q 3 days 07/18/2015 08/29/2015 Inactive hydrocodone 5 mg-acetaminophen 325 mg tablet RxNorm: 554344 1 Tablet(s) PO Q6 as needed 07/18/2015 08/29/2015 Inactive Diflucan 100 mg tablet RxNorm: 785092 1 Tablet(s) Miscellaneous per peg daily 06/17/2015 06/23/2015 Inactive Senna-S 8.6 mg-50 mg tablet RxNorm: 864386 1 Tablet(s) PO daily as needed constipation No Start Date Active Dulcolax (bisacodyl) 10 mg rectal suppository RxNorm: 965526 1 Suppository RTL daily as needed constipation No Start Date Active polyethylene glycol 3350 17 gram/dose oral powder RxNorm: 729571 17 Gram(s) PO daily as needed constipation No Start Date Active baclofen 10 mg tablet RxNorm: 243704 1 Tablet(s) PO TID No Start Date 09/30/2016 Inactive Ativan 0.5 mg tablet RxNorm: 522541 1 Tablet(s) PO Q4H as needed No Start Date 02/17/2016 Inactive ranitidine 150 mg tablet RxNorm: 352022 1 Tablet(s) PO daily No Start Date 08/24/2016 Inactive carvedilol 3.125 mg tablet RxNorm: 336791 1 Tablet(s) PO daily No Start Date 09/29/2016 Inactive citalopram 40 mg tablet RxNorm: 514473 1 Tablet(s) PO daily No Start Date 01/27/2016 Inactive Probiotic Blend oral RxNorm: oral No Start Date 05/12/2016 Inactive hydrochlorothiazide 25 mg tablet RxNorm: 865994 1 Tablet(s) PO daily No Start Date 04/21/2016 Inactive albuterol sulfate concentrate 5 mg/mL(0.5 %) solution for nebulization RxNorm: 820386 1 Vial INH daily as needed congestion No Start Date 03/17/2018 Inactive Levemir FlexTouch 100 unit/mL (3 mL) subcutaneous insulin pen RxNorm: 657194 10 Unit(s) SQ BID No Start Date 03/01/2016 Inactive Zithromax Z-Eliu 250 mg tablet RxNorm: 052663 1 Tablet(s) PO UD No Start Date 10/08/2015 Inactive z pack as directed- please write out instructions- pt at [facility] nystatin 100,000 unit/gram topical powder RxNorm: 687334 Gram(s) TOP BID as needed No Start Date 10/06/2015 Inactive pravastatin 40 mg tablet RxNorm: 484659 Tablet(s) PO daily No Start Date 04/14/2017 Inactive lorazepam 0.5 mg tablet RxNorm: 077850 1/2 Tablet(s) PO BID No Start Date 05/02/2017 Inactive Xarelto 20 mg tablet RxNorm: 9432453 1 Tablet(s) PO daily No Start Date 12/16/2015 Inactive fentanyl 25 mcg/hr transdermal patch RxNorm: 802922 1 TD q 3 days No Start Date 07/17/2015 Inactive lisinopril 20 mg tablet RxNorm: 753378 1 Tablet(s) PO daily No Start Date 02/24/2016 Inactive hydrocodone 5 mg-acetaminophen 325 mg tablet RxNorm: 818713 1 Tablet(s) PO Q6 as needed No Start Date 07/17/2015 Inactive citalopram 40 mg tablet RxNorm: 989602 1 Tablet(s) PO daily No Start Date 03/03/2016 Inactive hyoscyamine 0.125 mg disintegrating tablet RxNorm: 6896079 1-2 Tablet(s) PO Q8 as needed No [...] 11.6 g/dl 08/02/2018 Cbc With Differential Ord2 HCT 37.6 % 08/02/2018 Cbc With Differential Ord2 Neut% 43.0 % 08/02/2018 Cbc With Differential Ord2 MCV 103.6 fl 08/02/2018 Cbc With Differential Ord2 Lymph% 43.2 % 08/02/2018 Cbc With Differential Ord2 MCH 32.0 pg 08/02/2018 Cbc With Differential Ord2 [place]% 7.8 % 08/02/2018 Cbc With Differential Ord2 MCHC 30.9 pg 08/02/2018 Cbc With Differential Ord2 Eos% 6.0 % 08/02/2018 Cbc With Differential Ord2 PLT 152 K/ul 08/02/2018 Cbc With Differential Ord2 Baso% 0.0 % 08/02/2018 Cbc With Differential Ord2 RDW 12.3 % 08/02/2018 Cbc With Differential Ord2 Neut ABS# 2.53 K/ul 08/02/2018 Cbc With Differential Ord2 Lymph ABS# 2.54 K/ul 08/02/2018 Cbc With Differential Ord2 [place] ABS# 0.5 K/ul 08/02/2018 Cbc With Differential Ord2 Eos ABS# 0.4 K/ul 08/02/2018 Cbc With Differential Ord2 Baso ABS# 0.0 K/ul 08/02/2018 A1C Frequency Nrv301 A1CF 29709-6 Last A1C performed at [facility] [place] lab on: 05-18-2018 08/02/2018 %Hba1C Ecm076 % HbA1c 09044- 6 5.5 % 05/18/2018 %Hba1C Hfn404 Gluc Ave 111 mg/dL 05/18/2018 Cbc With [...] 32.3 pg 05/18/2018 Cbc With Differential Ord2 [place]% 4.9 % 05/18/2018 Cbc With Differential Ord2 [...] 1.81 K/ul 05/18/2018 Cbc With Differential Ord2 [place] ABS# 0.4 K/ul 05/18/2018 Cbc With Differential Ord2 Eos ABS# 0.6 K/ul 05/18/2018 Cbc With Differential Ord2 Baso ABS# 0.0 K/ul 05/18/2018 Tsh Ord6 TSH (3rd IS) 0.85 uIU/mL 05/18/2018 Comp Metabolic Tbp595 NA 137 mEq/L 05/18/2018 Comp Metabolic Npe036 K 4.2 mEq/L 05/18/2018 Comp Metabolic Vzp793 CL 97 mEq/L 05/18/2018 Comp Metabolic Cuf549 CO2 34.0 mEq/L 05/18/2018 Comp Metabolic Sre446 ANION GAP 10 05/18/2018 Comp Metabolic Naw979 GLUCOSE 177 mg/dL 05/18/2018 Comp Metabolic Aos421 Creat 0.5 mg/dL 05/18/2018 Comp Metabolic Yrx960 eGFR 122 ml/min/1.73m2 05/18/2018 Comp Metabolic Xmi716 BUN 23 mg/dL 05/18/2018 Comp Metabolic Xlf885 B/C Ratio 43.4 Ratio 05/18/2018 Comp Metabolic Hsc885 CALCIUM 9.2 mg/dL 05/18/2018 Comp Metabolic Cym300 ALK PHOS 86 U/L 05/18/2018 Comp Metabolic Lzz017 AST(SGOT) 14 U/L 05/18/2018 Comp Metabolic Hjo057 ALT(SGPT) 9 U/L 05/18/2018 Comp Metabolic Clm676 BILI T 0.3 mg/dL 05/18/2018 Comp Metabolic Mqg588 ALBUMIN 3.7 g/dL 05/18/2018 Comp Metabolic Zps343 TPRO 6.2 g/dL 05/18/2018 Comp Metabolic Iwr697 GLOB 2.6 g/dL 05/18/2018 Comp Metabolic Foi947 A/G Ratio 1.4 Ratio 05/18/2018 Comp Metabolic Djy787 Osmo 282 mOsmo 05/18/2018 A1C Frequency Whk467 A1CF 16948-7 Last A1C performed at [facility] [place] lab on: 02-14-2018 05/10/2018 Cbc With Differential [...] 30.7 pg 02/14/2018 Cbc With Differential Ord2 [place]% 7.4 % 02/14/2018 Cbc With Differential Ord2 [...] 2.14 K/ul 02/14/2018 Cbc With Differential Ord2 [place] ABS# 0.5 K/ul 02/14/2018 Cbc With Differential Ord2 Eos ABS# 0.3 K/ul 02/14/2018 Cbc With Differential Ord2 Baso ABS# 0.0 K/ul 02/14/2018 Comp Metabolic Nas663 NA 142 mEq/L 02/14/2018 Comp Metabolic Ymr438 K 4.5 mEq/L 02/14/2018 Comp Metabolic Aod025 CL 97 mEq/L 02/14/2018 Comp Metabolic Rtf382 CO2 41.0 mEq/L 02/14/2018 Comp Metabolic Aaw668 ANION GAP 9 02/14/2018 Comp Metabolic Ayo319 GLUCOSE 111 mg/dL 02/14/2018 Comp Metabolic Qty586 Creat 0.6 mg/dL 02/14/2018 Comp Metabolic Ikz595 eGFR 108 ml/min/1.73m2 02/14/2018 Comp Metabolic Zrm101 BUN 32 mg/dL 02/14/2018 Comp Metabolic Sbz737 B/C Ratio 54.2 Ratio 02/14/2018 Comp Metabolic Kux233 CALCIUM 8.9 mg/dL 02/14/2018 Comp Metabolic Qdx656 ALK PHOS 81 U/L 02/14/2018 Comp Metabolic Vxt723 AST(SGOT) 14 U/L 02/14/2018 Comp Metabolic Bbl015 ALT(SGPT) 11 U/L 02/14/2018 Comp Metabolic Sei256 BILI T 0.3 mg/dL 02/14/2018 Comp Metabolic Zyx382 ALBUMIN 3.4 g/dL 02/14/2018 Comp Metabolic Fmn113 TPRO 6.3 g/dL 02/14/2018 Comp Metabolic Czv511 GLOB 2.9 g/dL 02/14/2018 Comp Metabolic Jih383 A/G Ratio 1.2 Ratio 02/14/2018 Comp Metabolic Yvm451 Osmo 291 mOsmo 02/14/2018 %Hba1C Xyf404 % HbA1c 93142- 6 5.5 % 02/14/2018 %Hba1C Vxr968 Gluc Ave 111 mg/dL 02/14/2018 Prealbumin 389618 PREALBUMIN 27 mg/dL 11/24/2017 %Hba1C Ujm828 % HbA1c 74878- 6 5.5 % 11/04/2017 %Hba1C Ieu205 Gluc Ave 111 mg/dL 11/04/2017 Culture Urine [id number] URINE CULTURE SEE NOTES 10/04/2017 Culture Urine [id number] Continued Results 10/04/2017 Urine Culture Ucult Complete [...] Ord28 U-Com Culture to follow 10/01/2017 B12 Adh803 B12 >1500.00 pg/ml 02/19/2017 Cbc With Differential [...] 31.5 pg 02/02/2017 Cbc With Differential Ord2 [place]% 8.3 % 02/02/2017 Cbc With Differential Ord2 [...] 2.28 K/ul 02/02/2017 Cbc With Differential Ord2 [place] ABS# 0.6 K/ul 02/02/2017 Cbc With Differential Ord2 Eos ABS# 0.4 K/ul 02/02/2017 Cbc With Differential Ord2 Baso ABS# 0.0 K/ul 02/02/2017 %Hba1C Wdq698 % HbA1c 58517- 6 5.2 % 02/02/2017 %Hba1C Vou099 Gluc Ave 103 mg/dL 02/02/2017 Comp Metabolic Aog746 NA 138 mEq/L 02/02/2017 Comp Metabolic Mwr375 K 4.5 mEq/L 02/02/2017 Comp Metabolic Qlc356 CL 98 mEq/L 02/02/2017 Comp Metabolic Imz699 CO2 37.0 mEq/L 02/02/2017 Comp Metabolic Wos570 ANION GAP 8 02/02/2017 Comp Metabolic Nkf383 GLUCOSE 94 mg/dL 02/02/2017 Comp Metabolic Uon492 Creat 0.7 mg/dL 02/02/2017 Comp Metabolic Txe323 eGFR 88 ml/min/1.73m2 02/02/2017 Comp Metabolic Ciw055 BUN 36 mg/dL 02/02/2017 Comp Metabolic Cxy973 B/C Ratio 50.7 Ratio 02/02/2017 Comp Metabolic Gjp610 CALCIUM 9.0 mg/dL 02/02/2017 Comp Metabolic Lle041 ALK PHOS 78 U/L 02/02/2017 Comp Metabolic Wsh220 AST(SGOT) 22 U/L 02/02/2017 Comp Metabolic Loz777 ALT(SGPT) 28 U/L 02/02/2017 Comp Metabolic Ocn619 BILI T 0.3 mg/dL 02/02/2017 Comp Metabolic Ssc081 ALBUMIN 3.3 g/dL 02/02/2017 Comp Metabolic Ynl735 TPRO 5.9 g/dL 02/02/2017 Comp Metabolic Mrt594 GLOB 2.6 g/dL 02/02/2017 Comp Metabolic Zul835 A/G Ratio 1.3 Ratio 02/02/2017 Comp Metabolic Uau468 Osmo 284 mOsmo 02/02/2017 %Hba1C Cwm144 % HbA1c 39156- 6 5.0 % 10/29/2016 %Hba1C Xvx222 Gluc Ave 97 mg/dL 10/29/2016 Culture Urine [id number] URINE CULTURE SEE NOTES 09/21/2016 Culture Urine [id number] Continued Results 09/21/2016 Urine Culture Ucult Complete [...] 32.4 pg 07/30/2016 Cbc With Differential Ord2 [place]% 7.2 % 07/30/2016 Cbc With Differential Ord2 [...] 2.69 K/ul 07/30/2016 Cbc With Differential Ord2 [place] ABS# 0.5 K/ul 07/30/2016 Cbc With Differential Ord2 Eos ABS# 0.5 K/ul 07/30/2016 Cbc With Differential Ord2 Baso ABS# 0.0 K/ul 07/30/2016 Comp Metabolic Eim929 NA 141 mEq/L 07/30/2016 Comp Metabolic Tbd244 K 4.3 mEq/L 07/30/2016 Comp Metabolic Tjp234 CL 100 mEq/L 07/30/2016 Comp Metabolic Pct414 CO2 33.0 mEq/L 07/30/2016 Comp Metabolic Oua241 ANION GAP 12 07/30/2016 Comp Metabolic Lgc668 GLUCOSE 64 mg/dL 07/30/2016 Comp Metabolic Dth755 Creat 0.5 mg/dL 07/30/2016 Comp Metabolic Koe380 eGFR 126 ml/min/1.73m2 07/30/2016 Comp Metabolic Xqu207 BUN 25 mg/dL 07/30/2016 Comp Metabolic Due096 B/C Ratio 48.1 Ratio 07/30/2016 Comp Metabolic Xkw269 CALCIUM 8.9 mg/dL 07/30/2016 Comp Metabolic Bve762 ALK PHOS 90 U/L 07/30/2016 Comp Metabolic Zjw798 AST(SGOT) 22 U/L 07/30/2016 Comp Metabolic Wwo902 ALT(SGPT) 36 U/L 07/30/2016 Comp Metabolic Wfg423 BILI T 0.3 mg/dL 07/30/2016 Comp Metabolic Cxp320 ALBUMIN 3.4 g/dL 07/30/2016 Comp Metabolic Vfb348 TPRO 6.0 g/dL 07/30/2016 Comp Metabolic Dcr434 GLOB 2.7 g/dL 07/30/2016 Comp Metabolic Hwc462 A/G Ratio 1.3 Ratio 07/30/2016 Comp Metabolic Plt116 Osmo 284 mOsmo 07/30/2016 A1C Frequency Oxk500 A1CF 62662-2 Last A1C performed at [facility] [place] lab on: 05-12-2016 07/30/2016 %Hba1C Jgw807 % HbA1c 48176- 6 5.2 % 05/12/2016 %Hba1C Wjm833 Gluc Ave 103 mg/dL 05/12/2016 Culture Urine [id number] URINE CULTURE SEE NOTES 05/11/2016 Urine Culture [...] U-Com Culture to follow 05/06/2016 Culture Urine [id number] URINE CULTURE SEE NOTES 03/17/2016 Culture Urine [id number] Continued Results 03/17/2016 Urine Culture Ucult Complete [...] 32.0 pg 02/11/2016 Cbc With Differential Ord2 [place]% 9.1 % 02/11/2016 Cbc With Differential Ord2 [...] 2.59 K/ul 02/11/2016 Cbc With Differential Ord2 [place] ABS# 0.6 K/ul 02/11/2016 Cbc With Differential Ord2 Eos ABS# 0.3 K/ul 02/11/2016 Cbc With Differential Ord2 Baso ABS# 0.0 K/ul 02/11/2016 Comp Metabolic Skt998 NA 137 mEq/L 02/11/2016 Comp Metabolic Ayt336 K 4.4 mEq/L 02/11/2016 Comp Metabolic Epw848 CL 100 mEq/L 02/11/2016 Comp Metabolic Fvl102 CO2 25.0 mEq/L 02/11/2016 Comp Metabolic Kvo486 ANION GAP 16 02/11/2016 Comp Metabolic Zru888 GLUCOSE 99 mg/dL 02/11/2016 Comp Metabolic Tzp092 Creat 0.6 mg/dL 02/11/2016 Comp Metabolic Tnv375 eGFR 99 ml/min/1.73m2 02/11/2016 Comp Metabolic Ygo311 BUN 27 mg/dL 02/11/2016 Comp Metabolic Djg404 B/C Ratio 42.2 Ratio 02/11/2016 Comp Metabolic Kht890 CALCIUM 9.2 mg/dL 02/11/2016 Comp Metabolic Bnc189 ALK PHOS 74 U/L 02/11/2016 Comp Metabolic Hnl024 AST(SGOT) 24 U/L 02/11/2016 Comp Metabolic Ftp515 ALT(SGPT) 26 U/L 02/11/2016 Comp Metabolic Nfv653 BILI T 0.5 mg/dL 02/11/2016 Comp Metabolic Jts611 ALBUMIN 3.5 g/dL 02/11/2016 Comp Metabolic Zgs842 TPRO 6.2 g/dL 02/11/2016 Comp Metabolic Vtf494 GLOB 2.7 g/dL 02/11/2016 Comp Metabolic Rdn900 A/G Ratio 1.3 Ratio 02/11/2016 Comp Metabolic Ntz476 Osmo 279 mOsmo 02/11/2016 Review of Systems [...] 1: 128/86 Code: 8480-6 BMI: 31.4 Code: 07986-3 Heart Rate 1: 72 bpm Height: 5'1" Weight: 166 lbs 06/17/2015 Blood Pressure 1: 110/78 Code: 8480-6 BMI: 33.3 Code: 38817-4 Heart Rate 1: 74 bpm Height: 5'1" [...] data Encounters Encounter Performer Location Codes Date ([id number]) [id number] EST. PATIENT, LEVEL IV Diagnosis: Essential (primary) hypertension[ICD10: I10] Diagnosis: Type 2 diabetes mellitus without complications[ICD10: E11.9] Diagnosis: Chronic pain syndrome[ICD10: G89.4] Diagnosis: Encounter for palliative care[ICD10: Z51.5] Vonda Everett MD, [facility] CPT-4: 33224 07/13/2018 ([id number]) 98357 EST. PATIENT, LEVEL IV Diagnosis: Essential (primary) hypertension[ICD10: I10] Diagnosis: Chronic pain syndrome[ICD10: G89.4] Diagnosis: Type 2 diabetes mellitus without complications[ICD10: E11.9] Diagnosis: Dysphagia following cerebral infarction[ICD10: I69.391] Carlyn Everett MD, [facility] CPT-4: 66695 05/17/2018 ([id number]) 82360 EST. PATIENT, LEVEL IV Diagnosis: Cough[ICD10: R05] Diagnosis: Pneumonia, unspecified organism[ICD10: J18.9] Diagnosis: Pain in right knee[ICD10: M25.561] Carlyn Everett MD, [facility] CPT- 4: 17602 03/18/2018 ([id number]) 04073 EST. PATIENT, LEVEL IV Diagnosis: Type 2 diabetes mellitus without complications[ICD10: E11.9] Diagnosis: Essential (primary) hypertension[ICD10: I10] Diagnosis: Chronic pain syndrome[ICD10: G89.4] Carlyn Everett MD, [facility] CPT-4: 81219 01/07/2018 ([id number]) 73115 EST. PATIENT, LEVEL IV Diagnosis: Essential (primary) hypertension[ICD10: I10] Diagnosis: Type 2 diabetes mellitus without complications[ICD10: E11.9] Carlyn Everett MD, [facility] CPT-4: 07470 2017 ([id number]) 17053 EST. PATIENT, LEVEL IV Diagnosis: Type 2 diabetes mellitus with hyperglycemia[ICD10: E11.65] Diagnosis: Essential (primary) hypertension[ICD10: I10] Diagnosis: Pain in left shoulder[ICD10: M25.512] Diagnosis: Pain in right shoulder[ICD10: M25.511] Diagnosis: Pain in left knee[ICD10: M25.562] Diagnosis: Pain in right knee[ICD10: M25.561] Vonda Everett MD, [facility] CPT- 4: 15886 09/09/2017 [id number] EST. PATIENT, LEVEL IV Diagnosis: Essential (primary) hypertension[ICD10: I10] Diagnosis: Type 2 diabetes mellitus with hyperglycemia[ICD10: E11.65] Diagnosis: Low back pain[ICD10: M54.5] Sunitha Everett MD, [facility] CPT-4: 41239 06/08/2017 ([id number]) 90181 EST. PATIENT, LEVEL IV Diagnosis: Essential (primary) hypertension[ICD10: I10] Diagnosis: Type 2 diabetes mellitus with hyperglycemia[ICD10: E11.65] Diagnosis: Low back pain[ICD10: M54.5] Sunitha Everett MD, [facility] CPT-4: 88311 04/15/2017 ([id number]) 30908 EST. PATIENT, LEVEL IV Diagnosis: Essential (primary) hypertension[ICD10: I10] Diagnosis: Type 2 diabetes mellitus with hyperglycemia[ICD10: E11.65] Diagnosis: Low back pain[ICD10: M54.5] Vonda Everett MD, [facility] CPT-4: 33314 02/16/2017 01684 EST. 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 07/13/2018 Appointment: Vonda Everett WPtel: [phone] [facility] (15 min) Moderate 07/13/2018 Patient Education: Patient [...] controlled with fentanyl patches-continue to monitor. 05/17/2018 Visit Plan: Hypertension - well controlled [...] by dietary adjustments or oral supplements 05/17/2018 Appointment: [facility]both[phone] [place] (15 min) Moderate 05/17/2018 Patient Education: Patient Medication Summary Completed 05/17/2018 Patient Education: Hypertension Completed 05/17/2018 Patient Education: Diabetes Completed 05/17/2018 Appointment: Carlyn Higginbotham WPtel: [facility] [place] 2[phone] [place] (15 min) Moderate 04/07/2018 Visit Plan: Pneumonia - Pt has been diagnosed with pneumonia by physical exam. A chest xray has been ordered as have antibiotics. The pt is aware of the diagnosis and the need for acute treatment of this illness. Right knee pain -xray knee-rx for voltaren gel 03/18/2018 Appointment: Carlyn Higginbotham WPtel: [facility] [phone] [place] (30 min) Complex 03/18/2018 Patient Education: Patient Medication Summary Completed 03/18/2018 Appointment: Carlyn Higginbotham WPtel: [facility] [phone] [place] (30 min) Complex 03/17/2018 Appointment: Carlyn Higginbotham WPtel: [facility] [place] 2[phone] [place] (15 min) Moderate 03/10/2018 Appointment: Carlyn Higginbotham WPtel: [facility] [place][note 2]5 [phone] [place] (15 min) Moderate 02/08/2018 Visit Plan: DM -decrease levemir to 4 units daily -monitor blood sugars KKD-plcsvpopla-kx changes Chronic pain -well controlled with fentanyl patch -no changes at this time 01/07/2018 Appointment: Carlyn Higginbotham WPtel: [facility] [place] 2[phone] [place] (15 min) Moderate 01/07/2018 Patient Education: [...] HS 2017 Appointment: Carlyn Higginbotham WPtel: [phone] [phone] (15 min) Moderate 2017 Patient Education: Patient [...] to 175mcg. 09/09/2017 Appointment: Vonda Everett WPtel: [phone] [facility] [place] (15 min) Moderate 09/09/2017 Patient Education: [...] and PRN pain medications - will have detention fax over PRN medication administration record. 06/08/2017 Appointment: Sunith[facility] Patel [phone] [facility] (30 min) Complex 06/08/2017 Patient Education: Patient [...] of over-medication. 04/15/2017 Appointment: Sunith[facility] Patel [facility]el[facility] [phone] [facility] [place] (30 min) Complex 04/15/2017 Patient Education: Patient [...] hydrocodone today. 02/16/2017 Appointment: [phone] (15 min) Moderate 02/16/2017 Patient Education: Patient [...] 11/09/2016 Appointment: Sunitha Patel [facility] [phone] [facility] (30 min) Complex 11/09/2016 Patient Education: Patient Medication Summary Completed 11/09/2016 Care Plan: Referral Order SNOMED-CT : [id number] Pending 11/09/2016 Patient Education: Patient Medication Summary [...] Follow up weight in 1 month Neck ipmh-rmgiblkilov-Jhqa PT focus neck/upper body Right earache-cerumen removed with water pick today in the office 07/18/2015 Appointment: (30 min) Complex 07/18/2015 Patient Education: Patient Medication Summary Completed 07/18/2015 Patient Education: Obesity Completed 07/18/2015 Patient Education: .Cervicalgia Neck Pain Completed 07/18/2015 [facility] [phone] [facility] Referral Completed 06/25/2015 Visit Plan: Hypertension [...] labs this week, get report from and [facility]. I spent over an hour with the patient in direct contact. 06/17/2015 Appointment: Vonda Everett [facility] [phone] [facility] New Patient 06/17/2015 Patient Education: Patient Medication Summary Completed 06/17/2015 Patient Education: Obesity Completed 06/17/2015 Patient Education: Hypertension Completed 06/17/2015 Care Plan: Referral Order SNOMED-CT : [id number] Ordered 06/17/2015 Referral: Jorge Luis Carroll Referral Initiated Referral: [facility] W[facility]el: [phone] [facility] Referral Appointment Requested Instructions Comment . [...] normal liver response to medications. [facility] post stroke - left sided weakness, neck stiffness, upper extremity weakness Diabetes Mellitus - controlled - per family report - check labs this week, get report from and [facility]. I spent over an hour with [...] continue with fentanyl patches, continue with hospice. Add 1 scoop of whey protein from [facility] to 2 feedings per day . Hypertension [...] Follow up weight in 1 month Neck qkbc-yugtelrpjac-Kxjc PT focus neck/upper body Right earache-cerumen removed with water pick today in the office voltaren gel right knee cefdinir zpack prednisone albuterol breathing treatments probiotic BID . Pneumonia - Pt has been diagnosed with pneumonia by physical exam. A chest xray has been ordered as have antibiotics. The pt is aware of the diagnosis and the need for acute treatment of this illness. Right knee pain -xray knee-rx for voltaren gel . Hypertension - too well controlled - [...] fentanyl patches-continue to monitor. . Hypertension - well controlled - continue [...] by dietary adjustments or oral supplements . DM -decrease levemir to 4 units daily -monitor blood sugars [id number]-nm changes Chronic pain -well controlled with fentanyl [...] and PRN pain medications - will have detention fax over PRN medication administration record. . [...]
--- OUTSIDE RECORDS SUMMARY | 2018-08-09 10:17 | XMS REPORT | CCD ---
Author Author [facility] Organization [facility] Address [address] [place] [address] Phone Care Team Providers Care Fence Supervisor Name Role Phone PP Unavailable CCM Unavailable Summary Purpose Interface Exchange Insurance Providers Payer name Policy type / Coverage type Covered constitution party ID Effective Begin Date Effective End Date WPS Medicare Part B Medicare Part B [id number] Unknown Unknown [place] [employer] Life Insurance Medicare Part B [id number] Unknown Unknown Family history Father Diagnosis Age At Onset Arthritis Unknown Hypertension Unknown Mother Diagnosis Age At Onset Diabetes mellitus Type 2 Unknown Depression Unknown Arthritis Unknown Stroke Unknown Hypertension Unknown Sister Diagnosis Age At Onset Colon cancer Unknown Social History Social History Element Codes Description Effective Dates Marital status Unknown Maurice 01/07/2018 Living arrangements Unknown [facility] 04/15/2017 Number of children Unknown 3 06/17/2015 Employment Unknown Retired 06/17/[address]: 8171544 Quit over 10 years ago 15+ 06/17/[address]: 693635456 Never drinks alcohol 06/17/2015 Allergies, Adverse Reactions, [...] Instructions fentanyl 100 mcg/hr transdermal patch RxNorm: 055920 1 Patch TD Q72H 08/01/2018 08/30/2018 Active hydrocodone 10 mg-acetaminophen 325 mg tablet RxNorm: 743679 2 Tablet(s) PO scheduled TID 08/01/2018 08/15/2018 Active Not to exceed 3gm/24hr acetaminophen hyoscyamine 0.125 mg disintegrating tablet RxNorm: 3975763 Tablet(s) Tablet(s) 1-2 Tablet(s) PO Q8 as needed 08/01/2018 No Stop Date Active Duragesic 75 mcg/hr transdermal patch RxNorm: 880760 1 Patch TD Q72H 08/01/2018 08/30/2018 Active hydrocodone 10 mg-acetaminophen 325 mg tablet RxNorm: 213730 2 Tablet(s) PO scheduled TID 07/19/2018 07/31/2018 Inactive Not to exceed 3gm/24hr acetaminophen lorazepam 0.5 mg tablet RxNorm: 494874 1 Tablet(s) PO BID and 1 tab q 6 hours prn 07/05/2018 No Stop Date Active Duragesic 75 mcg/hr transdermal patch RxNorm: 878942 1 Patch TD Q72H 07/05/2018 07/31/2018 Inactive fentanyl 100 mcg/hr transdermal patch RxNorm: 393808 1 Patch TD Q72H 07/05/2018 07/31/2018 Inactive hydrocodone 10 mg-acetaminophen 325 mg tablet RxNorm: 074191 2 Tablet(s) PO scheduled TID 07/05/2018 07/18/2018 Inactive Not to exceed 3gm/24hr acetaminophen hydrocodone 10 mg-acetaminophen 325 mg tablet RxNorm: 321268 2 Tablet(s) PO scheduled TID 06/22/2018 07/04/2018 Inactive Not to exceed 3gm/24hr acetaminophen citalopram 40 mg tablet RxNorm: 656528 1 Tablet(s) PO daily 06/20/2018 05/15/2019 Active Voltaren 1 % topical gel RxNorm: 775748 APPLY 4 GRAMS TO RIGHT KNEE FOUR TIMES DAILY 06/13/2018 07/06/2018 Inactive Generic For:VOLTAREN GEL 1% 06/13/2018 10:59:02 AM hydrocodone 10 mg-acetaminophen 325 mg tablet RxNorm: 395228 2 Tablet(s) PO scheduled TID 06/07/2018 06/21/2018 Inactive Not to exceed 3gm/24hr acetaminophen fentanyl 100 mcg/hr transdermal patch RxNorm: 696085 1 Patch TD Q72H 06/03/2018 07/02/2018 Inactive Duragesic 75 mcg/hr transdermal patch RxNorm: 669957 1 Patch TD Q72H 06/03/2018 07/02/2018 Inactive hyoscyamine 0.125 mg disintegrating tablet RxNorm: 7584793 Tablet(s) Tablet(s) 1-2 Tablet(s) PO Q8 as needed 05/27/2018 07/31/2018 Inactive lorazepam 0.5 mg tablet RxNorm: 646392 1 Tablet(s) PO BID and 1 tab q 6 hours prn 05/24/2018 No Stop Date Active hydrocodone 10 mg-acetaminophen 325 mg tablet RxNorm: 240284 2 Tablet(s) PO scheduled TID 05/24/2018 06/06/2018 Inactive Not to exceed 3gm/24hr acetaminophen citalopram 20 mg tablet RxNorm: 373121 1 Tablet(s) PO daily 05/17/2018 06/19/2018 Inactive hydrocodone 10 mg-acetaminophen 325 mg tablet RxNorm: 691658 2 Tablet(s) PO scheduled TID 04/19/2018 05/18/2018 Inactive Not to exceed 3gm/24hr acetaminophen lorazepam 0.5 mg tablet RxNorm: 883141 1 Tablet(s) PO BID and 1 tab q 6 hours prn 04/07/2018 05/23/2018 Inactive hyoscyamine 0.125 mg disintegrating tablet RxNorm: 8910173 Tablet(s) 1-2 Tablet(s) PO Q8 as needed 03/31/2018 05/26/2018 Inactive Duragesic 75 mcg/hr transdermal patch RxNorm: 989528 1 Patch TD Q72H 03/31/2018 04/29/2018 Inactive fentanyl 100 mcg/hr transdermal patch RxNorm: 067977 1 Patch TD Q72H 03/31/2018 04/29/2018 Inactive carvedilol 3.125 mg tablet RxNorm: 881634 Tablet(s) GIVE 1 TABLET VIA PEG TUBE 2 TIMES A DAY 03/30/2018 06/27/2018 Inactive Generic For:COREG 3.125MG 10/22/2017 9:23:30 AM Voltaren 1 % topical gel RxNorm: 274121 APPLY 4 GRAMS TO RIGHT KNEE FOUR TIMES DAILY 03/30/2018 04/22/2018 Inactive Generic For:VOLTAREN GEL 1% 03/30/2018 11:14:57 AM hydrocodone 10 mg-acetaminophen 325 mg tablet RxNorm: 938176 2 Tablet(s) PO scheduled TID 03/23/2018 04/18/2018 Inactive Not to exceed 3gm/24hr acetaminophen albuterol sulfate concentrate 5 mg/mL(0.5 %) solution for nebulization RxNorm: 578302 1 Vial Milliliter(s) INH TID PRN as needed congestion 03/18/2018 No Stop Date Active cefdinir 300 mg capsule RxNorm: 324663 1 Capsule(s) PO BID 03/18/2018 03/24/2018 Inactive Zithromax Z-Eliu 250 mg tablet RxNorm: 469506 Tablet(s) PO 03/18/2018 05/16/2018 Inactive Voltaren 1 % topical gel RxNorm: 994226 4 Gram(s) TOP QID 03/18/2018 03/29/2018 Inactive hydrochlorothiazide 25 mg tablet RxNorm: 964032 GIVE 1 TABLET VIA PEG TUBE ONCE DAILY 03/11/2018 09/06/2018 Active Generic For:HYDRODIURIL 25 MG TABLET 03/11/2018 9:15:32 AM fentanyl 100 mcg/hr transdermal patch RxNorm: 802777 1 Patch TD Q72H 03/02/2018 03/30/2018 Inactive Duragesic 75 mcg/hr transdermal patch RxNorm: 277211 1 Patch TD Q72H 03/02/2018 03/30/2018 Inactive hydrocodone 10 mg-acetaminophen 325 mg tablet RxNorm: 622078 2 Tablet(s) PO scheduled TID 02/18/2018 03/22/2018 Inactive Not to exceed 3gm/24hr acetaminophen hyoscyamine 0.125 mg disintegrating tablet RxNorm: 2838581 Tablet(s) 1-2 Tablet(s) PO Q8 as needed 02/08/2018 03/30/2018 Inactive fentanyl 100 mcg/hr transdermal patch RxNorm: 113506 1 Patch TD Q72H 02/04/2018 03/01/2018 Inactive hydrocodone 10 mg-acetaminophen 325 mg tablet RxNorm: 226276 2 Tablet(s) PO scheduled TID 02/04/2018 02/17/2018 Inactive Not to exceed 3gm/24hr acetaminophen Duragesic 75 mcg/hr transdermal patch RxNorm: 446174 1 Patch TD Q72H 02/04/2018 03/01/2018 Inactive Duragesic 75 mcg/hr transdermal patch RxNorm: 474636 1 Patch TD Q72H 01/07/2018 02/03/2018 Inactive Levemir FlexTouch U-100 Insulin 100 unit/mL (3 mL) subcutaneous pen RxNorm: 537831 4 Unit(s) SQ QHS 01/07/2018 07/13/2018 Inactive fentanyl 100 mcg/hr transdermal patch RxNorm: 040594 1 Patch TD Q72H 01/07/2018 02/03/2018 Inactive hydrocodone 10 mg-acetaminophen 325 mg tablet RxNorm: 409267 2 Tablet(s) PO scheduled TID 01/05/2018 02/03/2018 Inactive Not to exceed 3gm/24hr acetaminophen hydrocodone 10 mg-acetaminophen 325 mg tablet RxNorm: 007654 2 Tablet(s) PO scheduled TID and 1 tab q 4 as needed 01/04/2018 01/04/2018 Inactive Not to exceed 3gm/24hr acetaminophen cyanocobalamin (vit B-12) 1,000 mcg tablet RxNorm: 762791 1 Tablet(s) PO daily 12/28/2017 11/22/2018 Active baclofen 10 mg tablet RxNorm: 884060 Tablet(s) TAKE 1 TABLET THREE TIMES DAILY VIA STOMACH TUBE 12/27/2017 05/25/2018 Inactive 10/07/2017 5:36:15 PM 10/07/2017 5:36:13 PM N O T I C E Last quantity doesn't match original quantity Duragesic 75 mcg/hr transdermal patch RxNorm: 149971 1 Patch TD Q72H 12/22/2017 01/06/2018 Inactive fentanyl 100 mcg/hr transdermal patch RxNorm: 505381 1 Patch TD Q72H 12/22/2017 01/06/2018 Inactive hydrocodone 10 mg-acetaminophen 325 mg tablet RxNorm: 301081 2 Tablet(s) PO scheduled TID and 1 tab q 4 as needed 12/20/2017 01/03/2018 Inactive Not to exceed 3gm/24hr acetaminophen hyoscyamine 0.125 mg disintegrating tablet RxNorm: 5808278 1-2 Tablet(s) PO Q8 as needed 12/14/2017 02/07/2018 Inactive Duragesic 75 mcg/hr transdermal patch RxNorm: 126453 1 Patch TD Q72H 12/06/2017 12/21/2017 Inactive fentanyl 100 mcg/hr transdermal patch RxNorm: 470595 1 Patch TD Q72H 12/06/2017 12/21/2017 Inactive hydrocodone 10 mg-acetaminophen 325 mg tablet RxNorm: 357388 2 Tablet(s) PO scheduled TID and 1 tab q 4 as needed 11/29/2017 12/19/2017 Inactive Not to exceed 3gm/24hr acetaminophen Duragesic 75 mcg/hr transdermal patch RxNorm: 247605 1 Patch TD Q72H 11/11/2017 12/05/2017 Inactive hydrocodone 10 mg-acetaminophen 325 mg tablet RxNorm: 141671 2 Tablet(s) PO scheduled TID and 1 tab q 4 as needed 11/09/2017 11/28/2017 Inactive Not to exceed 3gm/24hr acetaminophen Levemir FlexTouch U-100 Insulin 100 unit/mL (3 mL) subcutaneous pen RxNorm: 165081 8 Unit(s) SQ QHS 11/09/2017 01/06/2018 Inactive fentanyl 100 mcg/hr transdermal patch RxNorm: 175191 1 Patch TD Q72H 2017 12/05/2017 Inactive hyoscyamine 0.125 mg disintegrating tablet RxNorm: 6063717 1-2 Tablet(s) PO Q8 as needed 11/03/2017 12/13/2017 Inactive carvedilol 3.125 mg tablet RxNorm: 056831 GIVE 1 TABLET VIA PEG TUBE 2 TIMES A DAY 10/22/2017 01/19/2018 Inactive Generic For:COREG 3.125MG 10/22/2017 9:23:30 AM hydrocodone 10 mg-acetaminophen 325 mg tablet RxNorm: 784969 2 Tablet(s) PO scheduled TID and 1 tab q 4 as needed 10/22/2017 2017 Inactive Not to exceed 3gm/24hr acetaminophen fentanyl 100 mcg/hr transdermal patch RxNorm: 728422 1 Patch TD Q72H 10/20/2017 11/07/2017 Inactive Duragesic 75 mcg/hr transdermal patch RxNorm: 422264 1 Patch TD Q72H 10/20/2017 11/10/2017 Inactive lorazepam 0.5 mg tablet RxNorm: 998250 1 Tablet(s) PO BID and 1 tab q 6 hours prn 10/18/2017 07/04/2018 Inactive baclofen 10 mg tablet RxNorm: 653693 TAKE 1 TABLET THREE TIMES DAILY VIA STOMACH TUBE 10/07/2017 12/26/2017 Inactive 10/07/2017 5:36:15 PM 10/07/2017 5:36:13 PM N O T I C E Last quantity doesn't match original quantity cranberry extract 500 mg tablet RxNorm: 7535045 1 Tablet(s) PO QAM 10/04/2017 01/31/2018 Inactive Cipro 500 mg tablet RxNorm: 005321 1 Tablet(s) PO BID 10/04/2017 10/03/2017 Inactive dc keflex hydrocodone 10 mg-acetaminophen 325 mg tablet RxNorm: 629885 2 Tablet(s) PO scheduled TID as needed 10/04/2017 10/21/2017 Inactive Not to exceed 3gm/24hr acetaminophen cranberry extract 500 mg tablet RxNorm: 8245800 1 Tablet(s) PO QAM 10/04/2017 10/03/2017 Inactive Cipro 500 mg tablet RxNorm: 272703 1 Tablet(s) PO BID 10/04/2017 10/10/2017 Inactive dc keflex Duragesic 75 mcg/hr transdermal patch RxNorm: 045329 1 Patch TD Q72H 09/20/2017 10/19/2017 Inactive fentanyl 100 mcg/hr transdermal patch RxNorm: 948483 1 Patch TD Q72H 09/20/2017 10/19/2017 Inactive hyoscyamine 0.125 mg disintegrating tablet RxNorm: 6969459 1 Tablet(s) PO TID and 1 Tablet Q4H prn increased secretions 09/15/2017 11/02/2017 Inactive hydrocodone 10 mg-acetaminophen 325 mg tablet RxNorm: 788644 2 Tablet(s) PO scheduled TID and 1-2 Tabs Q4H PRN pain 09/15/2017 10/03/2017 Inactive Not to exceed 3gm/24hr acetaminophen lorazepam 0.5 mg tablet RxNorm: 604907 1 Tablet(s) PO BID 09/15/2017 10/17/2017 Inactive Lexapro 10 mg tablet RxNorm: 741656 1 Tablet(s) PO daily 09/10/2017 09/14/2017 Inactive Levemir FlexTouch U-100 Insulin 100 unit/mL (3 mL) subcutaneous pen RxNorm: 973395 10 Unit(s) daily 09/09/2017 09/15/2017 Inactive lisinopril 10 mg tablet RxNorm: 171081 1 Tablet(s) PO daily 09/09/2017 05/16/2018 Inactive Duragesic 75 mcg/hr transdermal patch RxNorm: 549816 1 Patch TD Q72H 09/09/2017 09/19/2017 Inactive nystatin 100,000 unit/gram topical cream RxNorm: 879794 1 Gram(s) TOP TID until healed to gaulding 09/06/2017 07/12/2018 Inactive nystatin 100,000 unit/gram topical cream RxNorm: 355226 1 Gram(s) TOP TID until healed to gaulding 09/06/2017 09/05/2017 Inactive hydrocodone 10 mg-acetaminophen 325 mg tablet RxNorm: 089261 2 Tablet(s) PO scheduled TID as needed 08/31/2017 09/14/2017 Inactive Not to exceed 3gm/24hr acetaminophen fentanyl 100 mcg/hr transdermal patch RxNorm: 917091 1 Patch TD Q72H 08/24/2017 09/19/2017 Inactive fentanyl 50 mcg/hr transdermal patch RxNorm: 932564 1 Patch TD Q72H 08/24/2017 09/08/2017 Inactive fentanyl 25 mcg/hr transdermal patch RxNorm: 024942 1 Patch TD Q72H 08/24/2017 08/24/2017 Inactive hyoscyamine 0.125 mg disintegrating tablet RxNorm: 0357475 Tablet(s) 1-2 Tablet(s) PO Q8 as needed 08/23/2017 09/14/2017 Inactive hydrocodone 10 mg-acetaminophen 325 mg tablet RxNorm: 283690 1 Tablet(s) PO scheduled TID et Q6 hours as needed 08/18/2017 08/30/2017 Inactive Not to exceed 3gm/24hr acetaminophen hydrochlorothiazide 25 mg tablet RxNorm: 547245 GIVE 1 TABLET VIA PEG TUBE ONCE DAILY 08/17/2017 02/12/2018 Inactive Generic For:HYDRODIURIL 25 MG TABLET 08/17/2017 9:01:54 AM08/11/2017 10:12:00 AM lorazepam 0.5 mg tablet RxNorm: 625775 1/2 Tablet(s) PO BID 08/03/2017 09/14/2017 Inactive fentanyl 100 mcg/hr transdermal patch RxNorm: 885873 1 Patch TD Q72H 07/26/2017 08/23/2017 Inactive fentanyl 25 mcg/hr transdermal patch RxNorm: 403530 1 Patch TD Q72H 07/26/2017 08/23/2017 Inactive hydrocodone 10 mg-acetaminophen 325 mg tablet RxNorm: 279251 1 Tablet(s) PO scheduled TID et Q6 hours as needed 07/16/2017 08/14/2017 Inactive Not to exceed 3gm/24hr acetaminophen hyoscyamine 0.125 mg disintegrating tablet RxNorm: 9353967 Tablet(s) 1-2 Tablet(s) PO Q8 as needed 07/13/2017 08/01/2017 Inactive baclofen 10 mg tablet RxNorm: 494568 TAKE 1 TABLET THREE TIMES DAILY VIA STOMACH TUBE 07/12/2017 10/06/2017 Inactive 07/12/2017 9:04:08 AM N O T I C E Last quantity doesn't match original quantity lorazepam 0.5 mg tablet RxNorm: 010794 1/2 Tablet(s) PO BID 07/02/2017 08/02/2017 Inactive fentanyl 100 mcg/hr transdermal patch RxNorm: 274425 1 Patch TD Q72H 06/28/2017 07/25/2017 Inactive fentanyl 25 mcg/hr transdermal patch RxNorm: 005041 1 Patch TD Q72H 06/28/2017 07/25/2017 Inactive hyoscyamine 0.125 mg disintegrating tablet RxNorm: 9065208 Tablet(s) 1-2 Tablet(s) PO Q8 as needed 06/03/2017 06/22/2017 Inactive fentanyl 25 mcg/hr transdermal patch RxNorm: 864724 1 Patch TD Q72H 05/26/2017 06/24/2017 Inactive Levemir FlexTouch U-100 Insulin 100 unit/mL (3 mL) subcutaneous pen RxNorm: 181020 20 Unit(s) SQ BID 05/26/2017 09/08/2017 Inactive fentanyl 100 mcg/hr transdermal patch RxNorm: 786395 1 Patch TD Q72H 05/26/2017 06/24/2017 Inactive hydrocodone 10 mg-acetaminophen 325 mg tablet RxNorm: 628261 1 Tablet(s) PO scheduled BID et Q6 hours as needed 05/12/2017 05/11/2017 Inactive hydrocodone 10 mg-acetaminophen 325 mg tablet RxNorm: 921201 1 Tablet(s) PO scheduled TID et Q6 hours as needed 05/12/2017 06/10/2017 Inactive Not to exceed 3gm/24hr acetaminophen docusate sodium 100 mg tablet RxNorm: 5410224 1 Tablet(s) PO BID as needed if no bowel movement 05/10/2017 05/09/2017 Inactive lisinopril 20 mg tablet RxNorm: 271141 1 Tablet(s) PO daily 05/10/2017 09/08/2017 Inactive docusate sodium 100 mg tablet RxNorm: 0858008 1 Tablet(s) PO BID as needed if no bowel movement 05/10/2017 09/14/2017 Inactive fentanyl 25 mcg/hr transdermal patch RxNorm: 835202 1 Patch TD Q72H 05/03/2017 05/25/2017 Inactive lorazepam 0.5 mg tablet RxNorm: 351573 1/2 Tablet(s) PO BID 05/03/2017 07/01/2017 Inactive fentanyl 100 mcg/hr transdermal patch RxNorm: 494311 1 Patch TD Q72H 04/27/2017 05/25/2017 Inactive carvedilol 3.125 mg tablet RxNorm: 576103 Tablet(s) GIVE 1 TABLET VIA PEG TUBE DAILY 04/15/2017 10/21/2017 Inactive Levemir FlexTouch 100 unit/mL (3 mL) subcutaneous insulin pen RxNorm: 539634 10 Unit(s) SQ BID 04/15/2017 2017 Inactive hyoscyamine 0.125 mg disintegrating tablet RxNorm: 9831102 1-2 Tablet(s) PO Q8 as needed 04/14/2017 05/03/2017 Inactive hydrocodone 10 mg-acetaminophen 325 mg tablet RxNorm: 363397 1 Tablet(s) PO scheduled BID et Q6 hours as needed 04/13/2017 05/02/2017 Inactive baclofen 10 mg tablet RxNorm: 482595 TAKE 1 TABLET THREE TIMES DAILY VIA STOMACH TUBE 04/08/2017 05/22/2017 Inactive 04/08/2017 9:32:07 AM fentanyl 25 mcg/hr transdermal patch RxNorm: 862895 1 Patch TD Q72H 04/05/2017 05/02/2017 Inactive lidocaine 10 mg/mL (1 %) injection solution RxNorm: 7014803 1 Milliliter(s) Inj daily Mix with rocephin 03/31/2017 03/30/2017 Inactive Pt resides at [facility] lidocaine 10 mg/mL (1 %) injection solution RxNorm: 4429151 1 Milliliter(s) Inj daily Mix with rocephin 03/31/2017 04/06/2017 Inactive Pt resides at [facility] fentanyl 100 mcg/hr transdermal patch RxNorm: 968977 1 Patch TD Q72H 03/29/2017 04/26/2017 Inactive nystatin 100,000 unit/gram topical powder RxNorm: 056923 APPLY UNDER BREASTS TWICE DAILY FOR YEAST SKIN INFECTION AND APPLY TO UNDERARM AND ABDOMINAL FOLDS AND PERIAREA TWICE DAILY 03/29/2017 03/28/2017 Inactive 03/27/2017 9:12:50 AM nystatin 100,000 unit/gram topical powder RxNorm: 375568 APPLY UNDER BREASTS TWICE DAILY FOR YEAST SKIN INFECTION AND APPLY TO UNDERARM AND ABDOMINAL FOLDS AND PERIAREA TWICE DAILY 03/29/2017 09/14/2017 Inactive 03/29/2017 9:42:55 AM03/27/2017 9:12:50 AM hyoscyamine 0.125 mg disintegrating tablet RxNorm: 4717962 1-2 Tablet(s) PO Q8 as needed 03/08/2017 03/27/2017 Inactive fentanyl 25 mcg/hr transdermal patch RxNorm: 539090 1 Patch TD Q72H 03/02/2017 03/31/2017 Inactive hydrocodone 10 mg-acetaminophen 325 mg tablet RxNorm: 995561 1 Tablet(s) PO scheduled BID et Q6 hours as needed 02/17/2017 03/18/2017 Inactive fentanyl 100 mcg/hr transdermal patch RxNorm: 200135 1 Patch TD Q72H 02/17/2017 03/18/2017 Inactive Lexapro 10 mg tablet RxNorm: 733860 1 Tablet(s) PO daily 02/05/2017 04/14/2017 Inactive Lexapro 10 mg tablet RxNorm: 039301 1 Tablet(s) PO daily 02/05/2017 02/04/2017 Inactive fentanyl 25 mcg/hr transdermal patch RxNorm: 379323 1 Patch TD Q72H 02/04/2017 03/01/2017 Inactive cyanocobalamin (vit B-12) 1,000 mcg tablet RxNorm: 490180 1 Tablet(s) PO daily 01/18/2017 12/13/2017 Inactive hyoscyamine 0.125 mg disintegrating tablet RxNorm: 8991639 Tablet(s) 1-2 Tablet(s) PO Q8 as needed 01/18/2017 02/06/2017 Inactive baclofen 10 mg tablet RxNorm: 162217 TAKE 1 TABLET THREE TIMES DAILY VIA STOMACH TUBE 01/04/2017 02/17/2017 Inactive 01/04/2017 9:25:18 AM fentanyl 100 mcg/hr transdermal patch RxNorm: 018561 1 Patch TD Q72H 12/25/2016 01/23/2017 Inactive hydrochlorothiazide 25 mg tablet RxNorm: 763728 Tablet(s) GIVE 1 TABLET VIA PEG TUBE ONCE A DAY 12/14/2016 07/11/2017 Inactive fentanyl 100 mcg/hr transdermal patch RxNorm: 951394 1 Patch TD Q72H 11/25/2016 12/24/2016 Inactive hyoscyamine 0.125 mg disintegrating tablet RxNorm: 9345663 Tablet(s) 1-2 Tablet(s) PO Q8 as needed 11/25/2016 12/14/2016 Inactive nystatin 100,000 unit/gram topical powder RxNorm: 156145 APPLY UNDER BREASTS TWICE DAILY FOR YEAST SKIN INFECTION AND APPLY TO UNDERARM AND ABDOMINAL FOLDS AND PERIAREA TWICE DAILY 11/24/2016 01/22/2017 Inactive 11/24/2016 9:34:02 AM hydrocodone 10 mg-acetaminophen 325 mg tablet RxNorm: 813652 1 Tablet(s) PO scheduled BID et Q6 hours as needed 11/02/2016 12/01/2016 Inactive cyanocobalamin (vit B-12) 1,000 mcg tablet RxNorm: 176979 1 Tablet(s) PO daily 11/02/2016 01/17/2017 Inactive hyoscyamine 0.125 mg disintegrating tablet RxNorm: 3436360 1-2 Tablet(s) PO Q8 as needed 10/19/2016 11/24/2016 Inactive fentanyl 100 mcg/hr transdermal patch RxNorm: 068890 1 Patch TD Q72H 10/13/2016 11/11/2016 Inactive hydrocodone 10 mg-acetaminophen 325 mg tablet RxNorm: 443935 1 Tablet(s) PO scheduled BID et Q6 hours as needed 10/05/2016 11/01/2016 Inactive baclofen 10 mg tablet RxNorm: 641458 TAKE 1 TABLET THREE TIMES DAILY VIA STOMACH TUBE 10/01/2016 11/14/2016 Inactive 10/01/2016 9:24:37 AM carvedilol 3.125 mg tablet RxNorm: 407427 GIVE 1 TABLET VIA PEG TUBE 2 TIMES A DAY 09/30/2016 12/28/2016 Inactive Generic For:COREG 3.125MG 09/30/2016 1:12:28 PM09/25/2016 9:06:11 AM Probiotic Blend 2 million cell-50 mg capsule RxNorm: 1 Capsule(s) PO BID 09/17/2016 09/23/2016 Inactive Keflex 500 mg capsule RxNorm: 645295 1 Capsule(s) PO TID 09/17/2016 09/23/2016 Inactive hyoscyamine 0.125 mg/5 mL oral elixir RxNorm: 8798179 5 Milliliter(s) PO TID 09/08/2016 09/17/2016 Inactive hyoscyamine 0.125 mg/5 mL oral elixir RxNorm: 8378239 5 Milliliter(s) PO TID 09/08/2016 09/07/2016 Inactive hyoscyamine 0.125 mg disintegrating tablet RxNorm: 9141151 1-2 Tablet(s) PO Q8 as needed 09/07/2016 10/18/2016 Inactive fentanyl 100 mcg/hr transdermal patch RxNorm: 783367 1 Patch TD Q72H 09/01/2016 09/30/2016 Inactive ranitidine 150 mg tablet RxNorm: 973396 1 Tablet(s) PO BID 08/25/2016 No Stop Date Active hydrocodone 10 mg-acetaminophen 325 mg tablet RxNorm: 588539 1 Tablet(s) PO scheduled BID et Q6 hours as needed 08/24/2016 09/22/2016 Inactive cyanocobalamin (vit B-12) 1,000 mcg tablet RxNorm: 051999 1 Tablet(s) PO daily 08/12/2016 11/01/2016 Inactive cyanocobalamin (vit B-12) 1,000 mcg tablet RxNorm: 831598 1 Tablet(s) PO daily 08/12/2016 08/11/2016 Inactive hydrocodone 10 mg-acetaminophen 325 mg tablet RxNorm: 639286 1-2 Tablet(s) PO Q6 as needed 08/03/2016 08/17/2016 Inactive fentanyl 100 mcg/hr transdermal patch RxNorm: 459632 1 Patch TD Q72H 08/03/2016 08/31/2016 Inactive nystatin 100,000 unit/gram topical powder RxNorm: 062708 APPLY UNDER BREASTS TWICE DAILY FOR YEAST SKIN INFECTION AND APPLY TO UNDERARM AND ABDOMINAL FOLDS AND PERIAREA TWICE DAILY 07/17/2016 09/14/2016 Inactive 07/17/2016 3:56:54 PM fentanyl 100 mcg/hr transdermal patch RxNorm: 699428 1 Patch TD Q72H 07/15/2016 08/02/2016 Inactive lisinopril 20 mg tablet RxNorm: 148806 1 Tablet(s) PO daily 07/02/2016 03/28/2017 Inactive hydrocodone 10 mg-acetaminophen 325 mg tablet RxNorm: 714405 1-2 Tablet(s) PO Q6 as needed 07/01/2016 07/15/2016 Inactive Xarelto 20 mg tablet RxNorm: 2033599 Tablet(s) TAKE 1 TABLET VIA PEG TUBE AT BEDTIME 06/19/2016 04/14/2017 Inactive fentanyl 100 mcg/hr transdermal patch RxNorm: 095098 1 Patch TD Q72H 06/17/2016 07/14/2016 Inactive nystatin 100,000 unit/gram topical powder RxNorm: 980447 APPLY TO UNDER BREASTS TWICE DAILY FOR YEAST SKIN INFECTION AND APPLY TO UNDERARM AND ABDOMINAL FOLDS AND PERIAREA TWICE DAILY 06/15/2016 07/16/2016 Inactive Generic For:MYCOSTATIN 100,000 UNITS/GM PW 06/15/2016 12:28:26 PM fentanyl 100 mcg/hr transdermal patch RxNorm: 830257 1 Patch TD Q72H 06/05/2016 06/16/2016 Inactive hydrocodone 10 mg-acetaminophen 325 mg tablet RxNorm: 150493 1-2 Tablet(s) PO Q6 as needed 06/02/2016 06/16/2016 Inactive Probiotic Blend 2 million cell-50 mg capsule RxNorm: 1 Capsule(s) PO BID 05/13/2016 05/19/2016 Inactive nitrofurantoin 100 mg capsule RxNorm: 413877 1 Capsule(s) PO BID 05/13/2016 05/19/2016 Inactive nitrofurantoin 100 mg capsule RxNorm: 443995 1 Capsule(s) PO BID 05/13/2016 05/12/2016 Inactive fentanyl 75 mcg/hr transdermal patch RxNorm: 764352 1 Patch TD Q72H 05/13/2016 06/04/2016 Inactive Keflex 500 mg capsule RxNorm: 670037 1 Capsule(s) PO TID 05/07/2016 05/13/2016 Inactive Patient at [facility] Keflex 500 mg capsule RxNorm: 410813 1 Capsule(s) PO TID 05/07/2016 05/06/2016 Inactive hydrocodone 10 mg-acetaminophen 325 mg tablet RxNorm: 959265 1-2 Tablet(s) PO Q6 as needed 05/04/2016 06/01/2016 Inactive hydrochlorothiazide 25 mg tablet RxNorm: 878455 Tablet(s) GIVE 1 TABLET VIA PEG TUBE ONCE A DAY 04/29/2016 11/24/2016 Inactive hydrochlorothiazide 25 mg tablet RxNorm: 201165 GIVE 1 TABLET VIA PEG TUBE ONCE A DAY 04/22/2016 04/28/2016 Inactive Generic For:HYDRODIURIL 25 MG TABLET refill request fentanyl 75 mcg/hr transdermal patch RxNorm: 254238 1 Patch TD Q72H 04/17/2016 05/12/2016 Inactive Xarelto 20 mg tablet RxNorm: 1680269 TAKE 1 TABLET VIA PEG TUBE AT BEDTIME 04/16/2016 06/14/2016 Inactive 04/16/2016 9:08:52 AM citalopram 40 mg tablet RxNorm: 995639 1 Tablet(s) PO daily 04/02/2016 02/25/2017 Inactive citalopram 40 mg tablet RxNorm: 198394 1 Tablet(s) PO daily 03/27/2016 04/01/2016 Inactive hydrocodone 10 mg-acetaminophen 325 mg tablet RxNorm: 118454 1-2 Tablet(s) PO Q6 as needed 03/27/2016 04/25/2016 Inactive fentanyl 75 mcg/hr transdermal patch RxNorm: 672909 1 Patch TD Q72H 03/18/2016 04/16/2016 Inactive hydrocodone 10 mg-acetaminophen 325 mg tablet RxNorm: 609045 1-2 Tablet(s) PO Q6 as needed 03/11/2016 03/26/2016 Inactive citalopram 40 mg tablet RxNorm: 370645 1 Tablet(s) PO daily 03/04/2016 03/26/2016 Inactive Levemir FlexTouch U-100 Insulin 100 unit/mL (3 mL) subcutaneous pen RxNorm: 326403 20 Unit(s) SQ BID 03/02/2016 09/27/2016 Inactive lisinopril 20 mg tablet RxNorm: 528259 1 Tablet(s) PO daily 02/25/2016 07/01/2016 Inactive Ativan 0.5 mg tablet RxNorm: 229634 1 Tablet(s) PO Q4H as needed 02/18/2016 04/14/2017 Inactive Xarelto 20 mg tablet RxNorm: 0782143 TAKE 1 TABLET VIA PEG TUBE AT BEDTIME 02/12/2016 04/11/2016 Inactive 02/12/2016 9:08:22 AM hydrocodone 10 mg-acetaminophen 325 mg tablet RxNorm: 722893 1-2 Tablet(s) PO Q6 as needed 02/12/2016 03/10/2016 Inactive fentanyl 75 mcg/hr transdermal patch RxNorm: 322623 1 Patch TD Q72H 02/11/2016 03/11/2016 Inactive citalopram 20 mg tablet RxNorm: 057868 1 Tablet(s) PO daily 01/28/2016 03/03/2016 Inactive fentanyl 75 mcg/hr transdermal patch RxNorm: 665910 1 TD Q72H 01/17/2016 02/10/2016 Inactive hydrocodone 10 mg-acetaminophen 325 mg tablet RxNorm: 807504 1-2 Tablet(s) PO Q6 as needed 01/07/2016 02/05/2016 Inactive fentanyl 50 mcg/hr transdermal patch RxNorm: 106024 1 TD Q72H 01/01/2016 01/16/2016 Inactive fentanyl 50 mcg/hr transdermal patch RxNorm: 927683 1 TD q 3 days 12/26/2015 12/31/2015 Inactive Xarelto 20 mg tablet RxNorm: 1984908 TAKE 1 TABLET VIA PEG TUBE AT BEDTIME 12/17/2015 02/11/2016 Inactive 12/16/2015 3:27:57 PM12/14/2015 9:45:17 AM hydrocodone 10 mg-acetaminophen 325 mg tablet RxNorm: 946151 1-2 Tablet(s) PO Q6 as needed 12/06/2015 01/04/2016 Inactive fentanyl 50 mcg/hr transdermal patch RxNorm: 615348 1 TD q 3 days 12/06/2015 12/25/2015 Inactive fentanyl 25 mcg/hr transdermal patch RxNorm: 514743 1 TD q 3 days 11/18/2015 12/05/2015 Inactive Zithromax Z-Eliu 250 mg tablet RxNorm: 404768 1 Tablet(s) PO UD 10/09/2015 02/26/2016 Inactive z pack as directed- please write out instructions- pt at [facility] nystatin 100,000 unit/gram topical powder RxNorm: 003113 APPLY TO UNDER BREASTS TWICE DAILY FOR YEAST SKIN INFECTION AND APPLY TO UNDERARM AND ABDOMINAL FOLDS AND PERIAREA TWICE DAILY 10/07/2015 12/05/2015 Inactive Generic For:MYCOSTATIN 100,000 UNITS/GM PW 10/05/2015 12:07:35 PM fentanyl 25 mcg/hr transdermal patch RxNorm: 398982 1 TD q 3 days 10/03/2015 11/01/2015 Inactive fentanyl 25 mcg/hr transdermal patch RxNorm: 227457 1 TD q 3 days 09/27/2015 10/02/2015 Inactive fentanyl 25 mcg/hr transdermal patch RxNorm: 744018 1 TD q 3 days 09/17/2015 09/26/2015 Inactive fentanyl 25 mcg/hr transdermal patch RxNorm: 984421 1 TD q 3 days 08/30/2015 09/16/2015 Inactive hydrocodone 5 mg-acetaminophen 325 mg tablet RxNorm: 574762 1 Tablet(s) PO Q6 as needed 08/30/2015 09/28/2015 Inactive Diflucan 100 mg tablet RxNorm: 105669 1 Tablet(s) Miscellaneous per peg daily 07/29/2015 08/04/2015 Inactive fentanyl 25 mcg/hr transdermal patch RxNorm: 394433 1 TD q 3 days 07/18/2015 08/29/2015 Inactive hydrocodone 5 mg-acetaminophen 325 mg tablet RxNorm: 927336 1 Tablet(s) PO Q6 as needed 07/18/2015 08/29/2015 Inactive Diflucan 100 mg tablet RxNorm: 670059 1 Tablet(s) Miscellaneous per peg daily 06/17/2015 06/23/2015 Inactive Senna-S 8.6 mg-50 mg tablet RxNorm: 510063 1 Tablet(s) PO daily as needed constipation No Start Date Active Dulcolax (bisacodyl) 10 mg rectal suppository RxNorm: 264113 1 Suppository RTL daily as needed constipation No Start Date Active polyethylene glycol 3350 17 gram/dose oral powder RxNorm: 253788 17 Gram(s) PO daily as needed constipation No Start Date Active baclofen 10 mg tablet RxNorm: 876309 1 Tablet(s) PO TID No Start Date 09/30/2016 Inactive Ativan 0.5 mg tablet RxNorm: 017092 1 Tablet(s) PO Q4H as needed No Start Date 02/17/2016 Inactive ranitidine 150 mg tablet RxNorm: 891914 1 Tablet(s) PO daily No Start Date 08/24/2016 Inactive carvedilol 3.125 mg tablet RxNorm: 776027 1 Tablet(s) PO daily No Start Date 09/29/2016 Inactive citalopram 40 mg tablet RxNorm: 604039 1 Tablet(s) PO daily No Start Date 01/27/2016 Inactive Probiotic Blend oral RxNorm: oral No Start Date 05/12/2016 Inactive hydrochlorothiazide 25 mg tablet RxNorm: 089161 1 Tablet(s) PO daily No Start Date 04/21/2016 Inactive albuterol sulfate concentrate 5 mg/mL(0.5 %) solution for nebulization RxNorm: 914876 1 Vial INH daily as needed congestion No Start Date 03/17/2018 Inactive Levemir FlexTouch 100 unit/mL (3 mL) subcutaneous insulin pen RxNorm: 115313 10 Unit(s) SQ BID No Start Date 03/01/2016 Inactive Zithromax Z-Eliu 250 mg tablet RxNorm: 318188 1 Tablet(s) PO UD No Start Date 10/08/2015 Inactive z pack as directed- please write out instructions- pt at [facility] nystatin 100,000 unit/gram topical powder RxNorm: 915392 Gram(s) TOP BID as needed No Start Date 10/06/2015 Inactive pravastatin 40 mg tablet RxNorm: 048802 Tablet(s) PO daily No Start Date 04/14/2017 Inactive lorazepam 0.5 mg tablet RxNorm: 521166 1/2 Tablet(s) PO BID No Start Date 05/02/2017 Inactive Xarelto 20 mg tablet RxNorm: 6171730 1 Tablet(s) PO daily No Start Date 12/16/2015 Inactive fentanyl 25 mcg/hr transdermal patch RxNorm: 838058 1 TD q 3 days No Start Date 07/17/2015 Inactive lisinopril 20 mg tablet RxNorm: 045415 1 Tablet(s) PO daily No Start Date 02/24/2016 Inactive hydrocodone 5 mg-acetaminophen 325 mg tablet RxNorm: 099621 1 Tablet(s) PO Q6 as needed No Start Date 07/17/2015 Inactive citalopram 40 mg tablet RxNorm: 971236 1 Tablet(s) PO daily No Start Date 03/03/2016 Inactive hyoscyamine 0.125 mg disintegrating tablet RxNorm: 3368051 1-2 Tablet(s) PO Q8 as needed No [...] Code Item Item Code Result Date %Hba1C Lyn803 % HbA1c 59726- 6 5.5 % 05/18/2018 %Hba1C Ile236 Gluc Ave 111 mg/dL 05/18/2018 Cbc With [...] 32.3 pg 05/18/2018 Cbc With Differential Ord2 [place]% 4.9 % 05/18/2018 Cbc With Differential Ord2 [...] 1.81 K/ul 05/18/2018 Cbc With Differential Ord2 [place] ABS# 0.4 K/ul 05/18/2018 Cbc With Differential Ord2 Eos ABS# 0.6 K/ul 05/18/2018 Cbc With Differential Ord2 Baso ABS# 0.0 K/ul 05/18/2018 Tsh Ord6 TSH (3rd IS) 0.85 uIU/mL 05/18/2018 Comp Metabolic Yet956 NA 137 mEq/L 05/18/2018 Comp Metabolic Tuw610 K 4.2 mEq/L 05/18/2018 Comp Metabolic Ojf743 CL 97 mEq/L 05/18/2018 Comp Metabolic Pyv483 CO2 34.0 mEq/L 05/18/2018 Comp Metabolic Bvt757 ANION GAP 10 05/18/2018 Comp Metabolic Yar353 GLUCOSE 177 mg/dL 05/18/2018 Comp Metabolic Lrq050 Creat 0.5 mg/dL 05/18/2018 Comp Metabolic Ztk920 eGFR 122 ml/min/1.73m2 05/18/2018 Comp Metabolic Mtg102 BUN 23 mg/dL 05/18/2018 Comp Metabolic Zit149 B/C Ratio 43.4 Ratio 05/18/2018 Comp Metabolic Fzh436 CALCIUM 9.2 mg/dL 05/18/2018 Comp Metabolic Udy645 ALK PHOS 86 U/L 05/18/2018 Comp Metabolic Svl283 AST(SGOT) 14 U/L 05/18/2018 Comp Metabolic Fvz454 ALT(SGPT) 9 U/L 05/18/2018 Comp Metabolic Kkc144 BILI T 0.3 mg/dL 05/18/2018 Comp Metabolic Tuk783 ALBUMIN 3.7 g/dL 05/18/2018 Comp Metabolic Wly362 TPRO 6.2 g/dL 05/18/2018 Comp Metabolic Upd763 GLOB 2.6 g/dL 05/18/2018 Comp Metabolic Opm416 A/G Ratio 1.4 Ratio 05/18/2018 Comp Metabolic Gar006 Osmo 282 mOsmo 05/18/2018 A1C Frequency Otw025 A1CF 28374-5 Last A1C performed at [facility] on: 02-14-2018 05/10/2018 Cbc With Differential [...] 30.7 pg 02/14/2018 Cbc With Differential Ord2 [place]% 7.4 % 02/14/2018 Cbc With Differential Ord2 [...] 2.14 K/ul 02/14/2018 Cbc With Differential Ord2 [place] ABS# 0.5 K/ul 02/14/2018 Cbc With Differential Ord2 Eos ABS# 0.3 K/ul 02/14/2018 Cbc With Differential Ord2 Baso ABS# 0.0 K/ul 02/14/2018 Comp Metabolic Xtj531 NA 142 mEq/L 02/14/2018 Comp Metabolic Rem971 K 4.5 mEq/L 02/14/2018 Comp Metabolic Ild829 CL 97 mEq/L 02/14/2018 Comp Metabolic Wcm652 CO2 41.0 mEq/L 02/14/2018 Comp Metabolic Jkk846 ANION GAP 9 02/14/2018 Comp Metabolic Ndl527 GLUCOSE 111 mg/dL 02/14/2018 Comp Metabolic Aop093 Creat 0.6 mg/dL 02/14/2018 Comp Metabolic Hjo386 eGFR 108 ml/min/1.73m2 02/14/2018 Comp Metabolic Ypf876 BUN 32 mg/dL 02/14/2018 Comp Metabolic Zin048 B/C Ratio 54.2 Ratio 02/14/2018 Comp Metabolic Vlk936 CALCIUM 8.9 mg/dL 02/14/2018 Comp Metabolic Yxn435 ALK PHOS 81 U/L 02/14/2018 Comp Metabolic Iak271 AST(SGOT) 14 U/L 02/14/2018 Comp Metabolic Enn168 ALT(SGPT) 11 U/L 02/14/2018 Comp Metabolic Qzi901 BILI T 0.3 mg/dL 02/14/2018 Comp Metabolic Zbc125 ALBUMIN 3.4 g/dL 02/14/2018 Comp Metabolic Bsm436 TPRO 6.3 g/dL 02/14/2018 Comp Metabolic Mzp626 GLOB 2.9 g/dL 02/14/2018 Comp Metabolic Sbu885 A/G Ratio 1.2 Ratio 02/14/2018 Comp Metabolic Hbq123 Osmo 291 mOsmo 02/14/2018 %Hba1C Aax374 % HbA1c 56021- 6 5.5 % 02/14/2018 %Hba1C Mha190 Gluc Ave 111 mg/dL 02/14/2018 Prealbumin 678368 PREALBUMIN 27 mg/dL 11/24/2017 %Hba1C Ayf042 % HbA1c 78480- 6 5.5 % 11/04/2017 %Hba1C Pnm150 Gluc Ave 111 mg/dL 11/04/2017 Culture Urine [id number] URINE CULTURE SEE NOTES 10/04/2017 Culture Urine [id number] Continued Results 10/04/2017 Urine Culture Ucult Complete [...] Ord28 U-Com Culture to follow 10/01/2017 B12 Los679 B12 >1500.00 pg/ml 02/19/2017 Cbc With Differential [...] 31.5 pg 02/02/2017 Cbc With Differential Ord2 [place]% 8.3 % 02/02/2017 Cbc With Differential Ord2 [...] 2.28 K/ul 02/02/2017 Cbc With Differential Ord2 [place] ABS# 0.6 K/ul 02/02/2017 Cbc With Differential Ord2 Eos ABS# 0.4 K/ul 02/02/2017 Cbc With Differential Ord2 Baso ABS# 0.0 K/ul 02/02/2017 %Hba1C Cvj817 % HbA1c 75708- 6 5.2 % 02/02/2017 %Hba1C Tis545 Gluc Ave 103 mg/dL 02/02/2017 Comp Metabolic Miv104 NA 138 mEq/L 02/02/2017 Comp Metabolic Rkm571 K 4.5 mEq/L 02/02/2017 Comp Metabolic Qxo673 CL 98 mEq/L 02/02/2017 Comp Metabolic Gyy123 CO2 37.0 mEq/L 02/02/2017 Comp Metabolic Gja863 ANION GAP 8 02/02/2017 Comp Metabolic Cjl800 GLUCOSE 94 mg/dL 02/02/2017 Comp Metabolic Qcv645 Creat 0.7 mg/dL 02/02/2017 Comp Metabolic Cvv783 eGFR 88 ml/min/1.73m2 02/02/2017 Comp Metabolic Kji163 BUN 36 mg/dL 02/02/2017 Comp Metabolic Brp765 B/C Ratio 50.7 Ratio 02/02/2017 Comp Metabolic Gch192 CALCIUM 9.0 mg/dL 02/02/2017 Comp Metabolic Wau640 ALK PHOS 78 U/L 02/02/2017 Comp Metabolic Rls571 AST(SGOT) 22 U/L 02/02/2017 Comp Metabolic Hiw939 ALT(SGPT) 28 U/L 02/02/2017 Comp Metabolic Tpj666 BILI T 0.3 mg/dL 02/02/2017 Comp Metabolic Akg966 ALBUMIN 3.3 g/dL 02/02/2017 Comp Metabolic Zdh344 TPRO 5.9 g/dL 02/02/2017 Comp Metabolic Lpd547 GLOB 2.6 g/dL 02/02/2017 Comp Metabolic Cke817 A/G Ratio 1.3 Ratio 02/02/2017 Comp Metabolic Tiy546 Osmo 284 mOsmo 02/02/2017 %Hba1C Nfw008 % HbA1c 68307- 6 5.0 % 10/29/2016 %Hba1C Jco530 Gluc Ave 97 mg/dL 10/29/2016 Culture Urine [id number] URINE CULTURE SEE NOTES 09/21/2016 Culture Urine [id number] Continued Results 09/21/2016 Urine Culture Ucult Complete [...] 32.4 pg 07/30/2016 Cbc With Differential Ord2 [place]% 7.2 % 07/30/2016 Cbc With Differential Ord2 [...] 2.69 K/ul 07/30/2016 Cbc With Differential Ord2 [place] ABS# 0.5 K/ul 07/30/2016 Cbc With Differential Ord2 Eos ABS# 0.5 K/ul 07/30/2016 Cbc With Differential Ord2 Baso ABS# 0.0 K/ul 07/30/2016 Comp Metabolic Zan371 NA 141 mEq/L 07/30/2016 Comp Metabolic Lji116 K 4.3 mEq/L 07/30/2016 Comp Metabolic Pqy297 CL 100 mEq/L 07/30/2016 Comp Metabolic Khi862 CO2 33.0 mEq/L 07/30/2016 Comp Metabolic Fld433 ANION GAP 12 07/30/2016 Comp Metabolic Ofq612 GLUCOSE 64 mg/dL 07/30/2016 Comp Metabolic Fbp139 Creat 0.5 mg/dL 07/30/2016 Comp Metabolic Lek280 eGFR 126 ml/min/1.73m2 07/30/2016 Comp Metabolic Ras695 BUN 25 mg/dL 07/30/2016 Comp Metabolic Gin977 B/C Ratio 48.1 Ratio 07/30/2016 Comp Metabolic Ukv374 CALCIUM 8.9 mg/dL 07/30/2016 Comp Metabolic Szz940 ALK PHOS 90 U/L 07/30/2016 Comp Metabolic Fmr480 AST(SGOT) 22 U/L 07/30/2016 Comp Metabolic Nsw552 ALT(SGPT) 36 U/L 07/30/2016 Comp Metabolic Reh715 BILI T 0.3 mg/dL 07/30/2016 Comp Metabolic Cki650 ALBUMIN 3.4 g/dL 07/30/2016 Comp Metabolic Ikv285 TPRO 6.0 g/dL 07/30/2016 Comp Metabolic Jov052 GLOB 2.7 g/dL 07/30/2016 Comp Metabolic Ygm870 A/G Ratio 1.3 Ratio 07/30/2016 Comp Metabolic Uwh580 Osmo 284 mOsmo 07/30/2016 A1C Frequency Mms361 A1CF 73957-4 Last A1C performed at [facility] on: 05-12-2016 07/30/2016 %Hba1C Hpq052 % HbA1c 92753- 6 5.2 % 05/12/2016 %Hba1C Pof961 Gluc Ave 103 mg/dL 05/12/2016 Culture Urine [id number] URINE CULTURE SEE NOTES 05/11/2016 Urine Culture [...] U-Com Culture to follow 05/06/2016 Culture Urine [id number] URINE CULTURE SEE NOTES 03/17/2016 Culture Urine [id number] Continued Results 03/17/2016 Urine Culture Ucult Complete [...] 32.0 pg 02/11/2016 Cbc With Differential Ord2 [place]% 9.1 % 02/11/2016 Cbc With Differential Ord2 [...] 2.59 K/ul 02/11/2016 Cbc With Differential Ord2 [place] ABS# 0.6 K/ul 02/11/2016 Cbc With Differential Ord2 Eos ABS# 0.3 K/ul 02/11/2016 Cbc With Differential Ord2 Baso ABS# 0.0 K/ul 02/11/2016 Comp Metabolic Gpu974 NA 137 mEq/L 02/11/2016 Comp Metabolic Chv843 K 4.4 mEq/L 02/11/2016 Comp Metabolic Arb004 CL 100 mEq/L 02/11/2016 Comp Metabolic Ztu682 CO2 25.0 mEq/L 02/11/2016 Comp Metabolic Edv117 ANION GAP 16 02/11/2016 Comp Metabolic Hrb196 GLUCOSE 99 mg/dL 02/11/2016 Comp Metabolic Lvv253 Creat 0.6 mg/dL 02/11/2016 Comp Metabolic Byo700 eGFR 99 ml/min/1.73m2 02/11/2016 Comp Metabolic Fsw470 BUN 27 mg/dL 02/11/2016 Comp Metabolic Akp566 B/C Ratio 42.2 Ratio 02/11/2016 Comp Metabolic Ucd931 CALCIUM 9.2 mg/dL 02/11/2016 Comp Metabolic Swu395 ALK PHOS 74 U/L 02/11/2016 Comp Metabolic Ukv302 AST(SGOT) 24 U/L 02/11/2016 Comp Metabolic Bzd545 ALT(SGPT) 26 U/L 02/11/2016 Comp Metabolic Xnt729 BILI T 0.5 mg/dL 02/11/2016 Comp Metabolic Ohp072 ALBUMIN 3.5 g/dL 02/11/2016 Comp Metabolic Mfm226 TPRO 6.2 g/dL 02/11/2016 Comp Metabolic Amw073 GLOB 2.7 g/dL 02/11/2016 Comp Metabolic Dpk131 A/G Ratio 1.3 Ratio 02/11/2016 Comp Metabolic Ial669 Osmo 279 mOsmo 02/11/2016 Review of Systems [...] 1: 128/86 Code: 8480-6 BMI: 31.4 Code: 39786-9 Heart Rate 1: 72 bpm Height: 5'1" Weight: 166 lbs 06/17/2015 Blood Pressure 1: 110/78 Code: 8480-6 BMI: 33.3 Code: 40402-6 Heart Rate 1: 74 bpm Height: 5'1" [...] data Encounters Encounter Performer Location Codes Date ([id number]) 63341 EST. PATIENT, LEVEL IV Diagnosis: Essential (primary) hypertension[ICD10: I10] Diagnosis: Type 2 diabetes mellitus without complications[ICD10: E11.9] Diagnosis: Chronic pain syndrome[ICD10: G89.4] Diagnosis: Encounter for palliative care[ICD10: Z51.5] Vonda Everett MD, [facility] CPT-4: 51174 07/13/2018 [id number]) 77963 EST. PATIENT, LEVEL IV Diagnosis: Essential (primary) hypertension[ICD10: I10] Diagnosis: Chronic pain syndrome[ICD10: G89.4] Diagnosis: Type 2 diabetes mellitus without complications[ICD10: E11.9] Diagnosis: Dysphagia following cerebral infarction[ICD10: I69.391] Carlyn Everett MD, [facility] CPT-4: 18062 05/17/2018 [id number]) 27863 EST. PATIENT, LEVEL IV Diagnosis: Cough[ICD10: R05] Diagnosis: Pneumonia, unspecified organism[ICD10: J18.9] Diagnosis: Pain in right knee[ICD10: M25.561] [facility] CPT- 4: 00818 03/18/2018 [id number]) 96553 EST. PATIENT, LEVEL IV Diagnosis: Type 2 diabetes mellitus without complications[ICD10: E11.9] Diagnosis: Essential (primary) hypertension[ICD10: I10] Diagnosis: Chronic pain syndrome[ICD10: G89.4] Carlyn Everett MD, [facility] CPT-4: 66429 01/07/2018 ([id number]) 48414 EST. PATIENT, LEVEL IV Diagnosis: Essential (primary) hypertension[ICD10: I10] Diagnosis: Type 2 diabetes mellitus without complications[ICD10: E11.9] Carlyn Everett MD, [facility] CPT-4: 03784 2017 ([id number]) 03620 EST. PATIENT, LEVEL IV Diagnosis: Type 2 diabetes mellitus with hyperglycemia[ICD10: E11.65] Diagnosis: Essential (primary) hypertension[ICD10: I10] Diagnosis: Pain in left shoulder[ICD10: M25.512] Diagnosis: Pain in right shoulder[ICD10: M25.511] Diagnosis: Pain in left knee[ICD10: M25.562] Diagnosis: Pain in right knee[ICD10: M25.561] Vonda Everett MD, [facility] CPT- 4: 09475 09/09/2017 94134 EST. PATIENT, LEVEL IV Diagnosis: Essential (primary) hypertension[ICD10: I10] Diagnosis: Type 2 diabetes mellitus with hyperglycemia[ICD10: E11.65] Diagnosis: Low back pain[ICD10: M54.5] Sunitha Everett MD, [facility] CPT-4: 78787 06/08/2017 ([id number]) 43622 EST. PATIENT, LEVEL IV Diagnosis: Essential (primary) hypertension[ICD10: I10] Diagnosis: Type 2 diabetes mellitus with hyperglycemia[ICD10: E11.65] Diagnosis: Low back pain[ICD10: M54.5] Sunitha Everett MD, [facility] CPT-4: 01732 04/15/2017 ([id number]) 56868 EST. PATIENT, LEVEL IV Diagnosis: Essential (primary) hypertension[ICD10: I10] Diagnosis: Type 2 diabetes mellitus with hyperglycemia[ICD10: E11.65] Diagnosis: Low back pain[ICD10: M54.5] Vonda Everett MD, [facility] CPT-4: 63606 02/16/2017 92364 EST. 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 CPT-4: 65796 11/09/2016 ([id number]) 57191 EST. 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 07/13/2018 Appointment: Vonda Everett WPtel: [address] [place], [place] [phone] (15 min) Moderate 07/13/2018 Patient Education: Patient [...] oral supplements 05/17/2018 Appointment: Carlyn Higginbotham WPtel: [phone] [phone] [place] (15 min) Moderate 05/17/2018 Patient Education: Patient Medication Summary Completed 05/17/2018 Patient Education: Hypertension Completed 05/17/2018 Patient Education: Diabetes Completed 05/17/2018 Appointment: [facility] Hig[facility]both[facility] [phone] [phone] [place] (15 min) Moderate 04/07/2018 Visit Plan: Pneumonia - Pt has been diagnosed with pneumonia by physical exam. A chest xray has been ordered as have antibiotics. The pt is aware of the diagnosis and the need for acute treatment of this illness. Right knee pain -xray knee-rx for voltaren gel 03/18/2018 Appointment: Carly[facility] Higginbotham [facility] [phone] [phone] [place] (30 min) Complex 03/18/2018 Patient Education: Patient Medication Summary Completed 03/18/2018 Appointment: Carly[facility] Higginbotham [facility] [phone] [phone] [place] (30 min) Complex 03/17/2018 Appointment: [facility]arly[facility] Higginbotham [facility] [phone] [phone] [place] (15 min) Moderate 03/10/2018 Appointment: [facility] Higginbotham [facility] [phone] [phone] [place] (15 min) Moderate 02/08/2018 Visit Plan: DM -decrease levemir to 4 units daily -monitor blood sugars OJ[facility]-seirdowavm-vy changes Chronic pain -well controlled with fentanyl patch -no changes at this time 01/07/2018 Appointment: Carlyn Higginbotham WPtel: [phone] [phone] (15 min) Moderate 01/07/2018 Patient Education: Patient [...] controlled. DECREASE LEVEMIR TO 8 UNITS AT 2017 Appointment: Carlyn Higginbotham WPtel: [address] [place], [place] [phone] (15 min) Moderate 2017 Patient Education: Patient [...] to 175mcg. 09/09/2017 Appointment: [facility] [phone] [facility] (15 min) Moderate 09/09/2017 Patient Education: Patient [...] and PRN pain medications - will have assisted fax over PRN medication administration record. 06/08/2017 Appointment: Sun[facility] Pat[facility] [phone] [facility] (30 min) Complex 06/08/2017 Patient Education: [...] over-medication. 04/15/2017 Appointment: [facility]ith[facility] Patel [facility] [phone] [facility] (30 min) Complex 04/15/2017 Patient Education: [...] hydrocodone today. 02/16/2017 Appointment: [facility] Eve[facility] [phone] [facility] (15 min) Moderate 02/16/2017 Patient Education: Patient [...] concerns. 11/09/2016 Appointment: Sunith[facility] Patel [facility] [phone] [facility] (30 min) Complex 11/09/2016 Patient Education: Patient Medication Summary Completed 11/09/2016 Care Plan: Referral Order SNOMED-CT : [id number] Pending 11/09/2016 Patient Education: Patient Medication Summary [...] Follow up weight in 1 month Neck eyon-zespyddtmtm-Zlpi PT focus neck/upper body Right earache-cerumen removed with water pick today in the office 07/18/2015 Appointment: (30 min) Complex 07/18/2015 Patient Education: Patient Medication Summary Completed 07/18/2015 Patient Education: Obesity Completed 07/18/2015 Patient Education: .Cervicalgia Neck Pain Completed 07/18/2015 Ref[facility]: [facility] Ref[facility] Completed 06/25/2015 Visit Plan: Hypertension [...] labs this week, get report from and [facility]. I spent over an hour with the patient in direct contact. 06/17/2015 Appointment: [facility] Eve[facility] [phone] [facility] New Patient 06/17/2015 Patient Education: Patient Medication Summary Completed 06/17/2015 Patient Education: Obesity Completed 06/17/2015 Patient Education: Hypertension Completed 06/17/2015 Care Plan: Referral Order SNOMED-CT : [id number] Ordered 06/17/2015 Referral: Jorge Luis Carroll Referral Initiated [facility] [phone] [facility] Ref[facility] Appointment Requested Instructions Comment . [...] normal liver response to medications. [facility] post stroke - left sided weakness, neck stiffness, upper extremity weakness Diabetes Mellitus - controlled - per family report - check labs this week, get report from and [facility]. I spent over an hour with the [...] Add 1 scoop of whey protein from [facility] to 2 feedings per day . Hypertension [...] Follow up weight in 1 month Neck ttrn-crsqxmadjyz-Nizz PT focus neck/upper body Right earache-cerumen removed [...] to 4 units daily -monitor blood sugars SSH-aruoiguxzf-xw changes Chronic pain -well controlled with fentanyl [...] and PRN pain medications - will have assisted fax over PRN medication administration record. . [...]
--- NOTE | 2018-08-09 10:18 | ED GI ---
General Stated Complaint: PEG TUBE ISSUES Source of Information: Patient, Family (daughter GONZALO) Exam Limitations: Other (nonverbal baseline) History of Present Illness Date Seen by Provider: August 09, 2018 Time Seen by Provider: 09:57 Initial Comments Patient presents to ER by EMS from the [facility] [place] [facility] [place] with chief complaint of redness around her PEG tube site and tenderness. They said they were having a hard time pushing anymore her feed again. She receives feeds 4 times a day. No mention of her with a residual was. She is on hospice for respiratory failure has a history of multiple CVA and is nonverbal but can't indicate what she wanted by gesturing or nodding her head yes or now. She denies pain at baseline but with any manipulation of the PEG tube she says it is discomfortable. Her daughter says that they've been in a couple times for this PEG tube and is concerned that maybe she's getting too much feeding. She says that she was told by nursing staff that they are having a hard time pushing food in and that it was coming back out of the PEG tube. Allergies and Home Medications Allergies Coded Allergies: morphine (Verified Adverse Reaction, Mild, NAUSEA, 04/26/16) Home Medications Baclofen 10 Mg Tablet, 10 MG PEG TID, (Reported) Bisacodyl 10 Mg Supp.rect, 10 MG RC DAILY PRN for CONSTIPATION-1ST LINE, (Reported) Carvedilol 3.125 Mg Tablet, 3.125 MG PEG DAILY, (Reported) Citalopram Hydrobromide 20 Mg Tablet, 20 MG PEG HS, (Reported) Cyanocobalamin (Vitamin B-12) 1,000 Mcg Tablet, 1,000 MCG PEG HS, (Reported) Fentanyl 1 Each Patch.td72, 100 MCG TD Q72H, (Reported) Fentanyl 1 Each Patch.td72, 25 MCG TD Q72H, (Reported) Hydrochlorothiazide 25 Mg Tablet, 25 MG PEG DAILY, (Reported) Hydrocodone/Acetaminophen 1 Each Tablet, 1 TAB PEG BID, (Reported) Hyoscyamine Sulfate 0.125 Mg Tablet, 0.125 MG PEG Q4H PRN for increased secretions, (Reported) Hyoscyamine Sulfate 0.125 Mg Tablet, 0.125 MG PEG TID, (Reported) Insulin Detemir 100 Unit/1 Ml Insuln.pen, 10 UNIT SQ BID, (Reported) Lisinopril 20 Mg Tablet, 20 MG PEG DAILY, (Reported) Lorazepam 2 Mg/1 Ml Oral.conc, 0.25 MG PEG q2hr PRN for ANXIETY, (Reported) Nut.tx.gluc.intoler,Lac-Fr,Soy 237 Ml Liquid, 273 ML PEG QID, (Reported) @ 0600, 1100, 1600, & 2000 Nystatin 1 Each Powder.ea., TP BID, (Reported) APPLIES TO BOTH BREASTS AND ABDOMINAL FOLD Ranitidine HCl 150 Mg Tablet, 150 MG PEG BID, (Reported) Patient Home Medication List Home Medication List Reviewed: Yes Review of Systems Review of Systems Constitutional: No chills, No fever Respiratory: Denies Cough, Denies Shortness of Air Cardiovascular: Denies Chest Pain, Denies Syncope Gastrointestinal: Denies Diarrhea, Denies Nausea Genitourinary: Denies Burning, Denies Discharge Musculoskeletal: No back pain, No joint pain Past Mainpej-Yujdqm-Edpwzl Hx Patient Social History Alcohol Use: Denies Use Recreational Drug Use: No Smoking Status: Never a Smoker Recent Hopitalizations: No Immunizations Up To Date Tetanus Booster (TDap): Unknown PED Vaccines UTD: No Date of Pneumonia Vaccine: Nov 19, 2013 Date of Influenza Vaccine: Jan 03, 2017 Seasonal Allergies Seasonal Allergies: Yes Past Medical History Surgeries: Yes (CARDIAC CATH;PEG TUBE;EGD'S;COLONOSCOPY/POLYPECTOMY;R ROTATOR CUFF;) Abdominal, Cardiac, Section, Hysterectomy, Oophorectomy, Orthopedic, Tonsillectomy Respiratory: Yes (oxygen 2-4L/NC) Currently Using CPAP: No Currently Using BIPAP: No Cardiac: Yes Atrial Fibrillation, Coronary Artery Disease, Hypertension Neurological: Yes (CVA X 2 WITH SIGNIFICANT DEBILITY-APHASIA, DYSPHAGIA, LEFT HEMIPARESIS) Neuropathy, Stroke Reproductive Disorders: Yes (ENDOMETRIAL CA) UTI-Chronic Gastrointestinal: Yes (SEVERE DYSPHAGIA, gtube) Gastroesophageal Reflux, Barrios's Esophagus, Diverticulosis, Polyps, Esophagitis, Hiatal Hernia Musculoskeletal: Yes (JOINT PAIN) Arthritis Endocrine: Yes Diabetes, Insulin dep Cataract, Glaucoma Loss of Vision: Denies Cancer: Yes (ENDOMETRIAL) Uterine Psychosocial: Yes Anxiety, Depression Integumentary: No Blood Disorders: No Family Medical History Patient reports no known family medical history. Stroke Physical Exam Vital Signs Capillary Refill : Height/Weight/BMI Height: 5'2.00" Weight: 164lbs. 0.0oz. [id number]; 30.0 BMI Method:Stated General Appearance: WD/WN, no apparent distress HEENT: PERRL/EOMI, pharynx normal, other (left facial droop, baseline) Respiratory: chest non-tender, lungs clear, normal breath sounds, no respiratory distress, no accessory muscle use Cardiovascular: normal peripheral pulses, regular rate, rhythm, no edema Peripheral Pulses: 2+ Radial Pulses (R), 2+ Radial Pulses (L) Gastrointestinal: normal bowel sounds, non tender, soft, other (gastric tube with no) Progress/Results/Core Measures Progress Progress Note : Time: 10:19 Progress Note The patient's residual is still high at this point over 200 mL of typical looking gastric contents. We have discussed with the daughter discontinuing fee ds just do twice a day residuals and small free water if there is no significant residual. Discussed the case with Dr. Everett and she agrees with this plan. She says she had attempted this in the past but family was still resistant to discontinuing feeds. At this point however the daughter is very receptive to this plan. Departure Impression Primary Impression: Gastric tube granulation tissue Additional Impression: Complaint associated with gastric tube Disposition: 01 HOME, SELF-CARE Condition: Stable Departure-Patient Inst. Decision time for Depature: 10:24 Referrals: EVA EVERETT MD (PCP/Family) Primary Care Physician Patient Instructions: How to Care for Your PEG Tube Add. Discharge Instructions: Unless the patient indicates that she wants to eat then we should stop doing feeds. Twice a day we should check a residual and if it's about 150 cc then we should not give her anything else. [place] 150 cc twice a day after residual check per gastric tube. May continue to administer medications per PEG tube as necessary. AYANA ELENA August 09, 2018 10:18
--- OUTSIDE RECORDS SUMMARY | 2018-08-09 10:20 | XMS REPORT | CCD ---
Author Author [facility] Organization [facility] Address [address] [place] [address] Phone Care Team Providers Care Gre Tutor Name Role Phone PP Unavailable CCM Unavailable Summary Purpose Interface Exchange Insurance Providers Payer name Policy type / Coverage type Covered constitution party ID Effective Begin Date Effective End Date WPS Medicare Part B Medicare Part B [id number] Unknown Unknown [facility] Insurance Medicare Part B [id number] Unknown Unknown Family history Father Diagnosis Age At Onset Arthritis Unknown Hypertension Unknown Mother Diagnosis Age At Onset Diabetes mellitus Type 2 Unknown Depression Unknown Arthritis Unknown Stroke Unknown Hypertension Unknown Sister Diagnosis Age At Onset Colon cancer Unknown Social History Social History Element Codes Description Effective Dates Marital status Unknown Maurice 01/07/2018 Living arrangements Unknown Skilled Nursing [facility] 04/15/2017 Number of children Unknown 3 06/17/2015 Employment Unknown Retired 06/17/[address]: 6797610 Quit over 10 years ago 15+ 06/17/[address]: 820973696 Never drinks alcohol 06/17/2015 Allergies, Adverse Reactions, [...] Instructions hyoscyamine 0.125 mg disintegrating tablet RxNorm: 9647983 Tablet(s) Tablet(s) 1-2 Tablet(s) PO Q8 as needed 08/01/2018 No Stop Date Active hydrocodone 10 mg-acetaminophen 325 mg tablet RxNorm: 287965 2 Tablet(s) PO scheduled TID 07/19/2018 08/02/2018 Active Not to exceed 3gm/24hr acetaminophen Duragesic 75 mcg/hr transdermal patch RxNorm: 547145 1 Patch TD Q72H 07/05/2018 08/03/2018 Active lorazepam 0.5 mg tablet RxNorm: 297772 1 Tablet(s) PO BID and 1 tab q 6 hours prn 07/05/2018 No Stop Date Active fentanyl 100 mcg/hr transdermal patch RxNorm: 956317 1 Patch TD Q72H 07/05/2018 08/03/2018 Active hydrocodone 10 mg-acetaminophen 325 mg tablet RxNorm: 183894 2 Tablet(s) PO scheduled TID 07/05/2018 07/18/2018 Inactive Not to exceed 3gm/24hr acetaminophen hydrocodone 10 mg-acetaminophen 325 mg tablet RxNorm: 834532 2 Tablet(s) PO scheduled TID 06/22/2018 07/04/2018 Inactive Not to exceed 3gm/24hr acetaminophen citalopram 40 mg tablet RxNorm: 794438 1 Tablet(s) PO daily 06/20/2018 05/15/2019 Active Voltaren 1 % topical gel RxNorm: 594002 APPLY 4 GRAMS TO RIGHT KNEE FOUR TIMES DAILY 06/13/2018 07/06/2018 Inactive Generic For:VOLTAREN GEL 1% 06/13/2018 10:59:02 AM hydrocodone 10 mg-acetaminophen 325 mg tablet RxNorm: 604425 2 Tablet(s) PO scheduled TID 06/07/2018 06/21/2018 Inactive Not to exceed 3gm/24hr acetaminophen fentanyl 100 mcg/hr transdermal patch RxNorm: 625447 1 Patch TD Q72H 06/03/2018 07/02/2018 Inactive Duragesic 75 mcg/hr transdermal patch RxNorm: 858627 1 Patch TD Q72H 06/03/2018 07/02/2018 Inactive hyoscyamine 0.125 mg disintegrating tablet RxNorm: 6514300 Tablet(s) Tablet(s) 1-2 Tablet(s) PO Q8 as needed 05/27/2018 07/31/2018 Inactive lorazepam 0.5 mg tablet RxNorm: 311821 1 Tablet(s) PO BID and 1 tab q 6 hours prn 05/24/2018 No Stop Date Active hydrocodone 10 mg-acetaminophen 325 mg tablet RxNorm: 405685 2 Tablet(s) PO scheduled TID 05/24/2018 06/06/2018 Inactive Not to exceed 3gm/24hr acetaminophen citalopram 20 mg tablet RxNorm: 616514 1 Tablet(s) PO daily 05/17/2018 06/19/2018 Inactive hydrocodone 10 mg-acetaminophen 325 mg tablet RxNorm: 345203 2 Tablet(s) PO scheduled TID 04/19/2018 05/18/2018 Inactive Not to exceed 3gm/24hr acetaminophen lorazepam 0.5 mg tablet RxNorm: 815770 1 Tablet(s) PO BID and 1 tab q 6 hours prn 04/07/2018 05/23/2018 Inactive hyoscyamine 0.125 mg disintegrating tablet RxNorm: 1590610 Tablet(s) 1-2 Tablet(s) PO Q8 as needed 03/31/2018 05/26/2018 Inactive Duragesic 75 mcg/hr transdermal patch RxNorm: 592496 1 Patch TD Q72H 03/31/2018 04/29/2018 Inactive fentanyl 100 mcg/hr transdermal patch RxNorm: 148598 1 Patch TD Q72H 03/31/2018 04/29/2018 Inactive carvedilol 3.125 mg tablet RxNorm: 587054 Tablet(s) GIVE 1 TABLET VIA PEG TUBE 2 TIMES A DAY 03/30/2018 06/27/2018 Inactive Generic For:COREG 3.125MG 10/22/2017 9:23:30 AM Voltaren 1 % topical gel RxNorm: 043901 APPLY 4 GRAMS TO RIGHT KNEE FOUR TIMES DAILY 03/30/2018 04/22/2018 Inactive Generic For:VOLTAREN GEL 1% 03/30/2018 11:14:57 AM hydrocodone 10 mg-acetaminophen 325 mg tablet RxNorm: 687634 2 Tablet(s) PO scheduled TID 03/23/2018 04/18/2018 Inactive Not to exceed 3gm/24hr acetaminophen albuterol sulfate concentrate 5 mg/mL(0.5 %) solution for nebulization RxNorm: 533477 1 Vial Milliliter(s) INH TID PRN as needed congestion 03/18/2018 No Stop Date Active cefdinir 300 mg capsule RxNorm: 289130 1 Capsule(s) PO BID 03/18/2018 03/24/2018 Inactive Zithromax Z-Eliu 250 mg tablet RxNorm: 381428 Tablet(s) PO 03/18/2018 05/16/2018 Inactive Voltaren 1 % topical gel RxNorm: 564047 4 Gram(s) TOP QID 03/18/2018 03/29/2018 Inactive hydrochlorothiazide 25 mg tablet RxNorm: 422954 GIVE 1 TABLET VIA PEG TUBE ONCE DAILY 03/11/2018 09/06/2018 Active Generic For:HYDRODIURIL 25 MG TABLET 03/11/2018 9:15:32 AM fentanyl 100 mcg/hr transdermal patch RxNorm: 420528 1 Patch TD Q72H 03/02/2018 03/30/2018 Inactive Duragesic 75 mcg/hr transdermal patch RxNorm: 381703 1 Patch TD Q72H 03/02/2018 03/30/2018 Inactive hydrocodone 10 mg-acetaminophen 325 mg tablet RxNorm: 782047 2 Tablet(s) PO scheduled TID 02/18/2018 03/22/2018 Inactive Not to exceed 3gm/24hr acetaminophen hyoscyamine 0.125 mg disintegrating tablet RxNorm: 5172981 Tablet(s) 1-2 Tablet(s) PO Q8 as needed 02/08/2018 03/30/2018 Inactive fentanyl 100 mcg/hr transdermal patch RxNorm: 266127 1 Patch TD Q72H 02/04/2018 03/01/2018 Inactive hydrocodone 10 mg-acetaminophen 325 mg tablet RxNorm: 890312 2 Tablet(s) PO scheduled TID 02/04/2018 02/17/2018 Inactive Not to exceed 3gm/24hr acetaminophen Duragesic 75 mcg/hr transdermal patch RxNorm: 303090 1 Patch TD Q72H 02/04/2018 03/01/2018 Inactive Duragesic 75 mcg/hr transdermal patch RxNorm: 762656 1 Patch TD Q72H 01/07/2018 02/03/2018 Inactive Levemir FlexTouch U-100 Insulin 100 unit/mL (3 mL) subcutaneous pen RxNorm: 867951 4 Unit(s) SQ QHS 01/07/2018 07/13/2018 Inactive fentanyl 100 mcg/hr transdermal patch RxNorm: 480012 1 Patch TD Q72H 01/07/2018 02/03/2018 Inactive hydrocodone 10 mg-acetaminophen 325 mg tablet RxNorm: 570763 2 Tablet(s) PO scheduled TID 01/05/2018 02/03/2018 Inactive Not to exceed 3gm/24hr acetaminophen hydrocodone 10 mg-acetaminophen 325 mg tablet RxNorm: 102359 2 Tablet(s) PO scheduled TID and 1 tab q 4 as needed 01/04/2018 01/04/2018 Inactive Not to exceed 3gm/24hr acetaminophen cyanocobalamin (vit B-12) 1,000 mcg tablet RxNorm: 111396 1 Tablet(s) PO daily 12/28/2017 11/22/2018 Active baclofen 10 mg tablet RxNorm: 793280 Tablet(s) TAKE 1 TABLET THREE TIMES DAILY VIA STOMACH TUBE 12/27/2017 05/25/2018 Inactive 10/07/2017 5:36:15 PM 10/07/2017 5:36:13 PM N O T I C E Last quantity doesn't match original quantity Duragesic 75 mcg/hr transdermal patch RxNorm: 086482 1 Patch TD Q72H 12/22/2017 01/06/2018 Inactive fentanyl 100 mcg/hr transdermal patch RxNorm: 764618 1 Patch TD Q72H 12/22/2017 01/06/2018 Inactive hydrocodone 10 mg-acetaminophen 325 mg tablet RxNorm: 617131 2 Tablet(s) PO scheduled TID and 1 tab q 4 as needed 12/20/2017 01/03/2018 Inactive Not to exceed 3gm/24hr acetaminophen hyoscyamine 0.125 mg disintegrating tablet RxNorm: 8556434 1-2 Tablet(s) PO Q8 as needed 12/14/2017 02/07/2018 Inactive Duragesic 75 mcg/hr transdermal patch RxNorm: 882205 1 Patch TD Q72H 12/06/2017 12/21/2017 Inactive fentanyl 100 mcg/hr transdermal patch RxNorm: 727986 1 Patch TD Q72H 12/06/2017 12/21/2017 Inactive hydrocodone 10 mg-acetaminophen 325 mg tablet RxNorm: 813808 2 Tablet(s) PO scheduled TID and 1 tab q 4 as needed 11/29/2017 12/19/2017 Inactive Not to exceed 3gm/24hr acetaminophen Duragesic 75 mcg/hr transdermal patch RxNorm: 771246 1 Patch TD Q72H 11/11/2017 12/05/2017 Inactive hydrocodone 10 mg-acetaminophen 325 mg tablet RxNorm: 404436 2 Tablet(s) PO scheduled TID and 1 tab q 4 as needed 11/09/2017 11/28/2017 Inactive Not to exceed 3gm/24hr acetaminophen Levemir FlexTouch U-100 Insulin 100 unit/mL (3 mL) subcutaneous pen RxNorm: 696605 8 Unit(s) SQ QHS 11/09/2017 01/06/2018 Inactive fentanyl 100 mcg/hr transdermal patch RxNorm: 650371 1 Patch TD Q72H 2017 12/05/2017 Inactive hyoscyamine 0.125 mg disintegrating tablet RxNorm: 8908893 1-2 Tablet(s) PO Q8 as needed 11/03/2017 12/13/2017 Inactive carvedilol 3.125 mg tablet RxNorm: 049598 GIVE 1 TABLET VIA PEG TUBE 2 TIMES A DAY 10/22/2017 01/19/2018 Inactive Generic For:COREG 3.125MG 10/22/2017 9:23:30 AM hydrocodone 10 mg-acetaminophen 325 mg tablet RxNorm: 120680 2 Tablet(s) PO scheduled TID and 1 tab q 4 as needed 10/22/2017 2017 Inactive Not to exceed 3gm/24hr acetaminophen fentanyl 100 mcg/hr transdermal patch RxNorm: 899714 1 Patch TD Q72H 10/20/2017 11/07/2017 Inactive Duragesic 75 mcg/hr transdermal patch RxNorm: 911814 1 Patch TD Q72H 10/20/2017 11/10/2017 Inactive lorazepam 0.5 mg tablet RxNorm: 710953 1 Tablet(s) PO BID and 1 tab q 6 hours prn 10/18/2017 07/04/2018 Inactive baclofen 10 mg tablet RxNorm: 001245 TAKE 1 TABLET THREE TIMES DAILY VIA STOMACH TUBE 10/07/2017 12/26/2017 Inactive 10/07/2017 5:36:15 PM 10/07/2017 5:36:13 PM N O T I C E Last quantity doesn't match original quantity cranberry extract 500 mg tablet RxNorm: 4591571 1 Tablet(s) PO QAM 10/04/2017 01/31/2018 Inactive Cipro 500 mg tablet RxNorm: 761760 1 Tablet(s) PO BID 10/04/2017 10/03/2017 Inactive dc keflex hydrocodone 10 mg-acetaminophen 325 mg tablet RxNorm: 379791 2 Tablet(s) PO scheduled TID as needed 10/04/2017 10/21/2017 Inactive Not to exceed 3gm/24hr acetaminophen cranberry extract 500 mg tablet RxNorm: 7435331 1 Tablet(s) PO QAM 10/04/2017 10/03/2017 Inactive Cipro 500 mg tablet RxNorm: 795154 1 Tablet(s) PO BID 10/04/2017 10/10/2017 Inactive dc keflex Duragesic 75 mcg/hr transdermal patch RxNorm: 972104 1 Patch TD Q72H 09/20/2017 10/19/2017 Inactive fentanyl 100 mcg/hr transdermal patch RxNorm: 054644 1 Patch TD Q72H 09/20/2017 10/19/2017 Inactive hyoscyamine 0.125 mg disintegrating tablet RxNorm: 2406744 1 Tablet(s) PO TID and 1 Tablet Q4H prn increased secretions 09/15/2017 11/02/2017 Inactive hydrocodone 10 mg-acetaminophen 325 mg tablet RxNorm: 494431 2 Tablet(s) PO scheduled TID and 1-2 Tabs Q4H PRN pain 09/15/2017 10/03/2017 Inactive Not to exceed 3gm/24hr acetaminophen lorazepam 0.5 mg tablet RxNorm: 585168 1 Tablet(s) PO BID 09/15/2017 10/17/2017 Inactive Lexapro 10 mg tablet RxNorm: 842766 1 Tablet(s) PO daily 09/10/2017 09/14/2017 Inactive Levemir FlexTouch U-100 Insulin 100 unit/mL (3 mL) subcutaneous pen RxNorm: 159277 10 Unit(s) daily 09/09/2017 09/15/2017 Inactive lisinopril 10 mg tablet RxNorm: 228001 1 Tablet(s) PO daily 09/09/2017 05/16/2018 Inactive Duragesic 75 mcg/hr transdermal patch RxNorm: 072507 1 Patch TD Q72H 09/09/2017 09/19/2017 Inactive nystatin 100,000 unit/gram topical cream RxNorm: 200112 1 Gram(s) TOP TID until healed to gaulding 09/06/2017 07/12/2018 Inactive nystatin 100,000 unit/gram topical cream RxNorm: 225505 1 Gram(s) TOP TID until healed to gaulding 09/06/2017 09/05/2017 Inactive hydrocodone 10 mg-acetaminophen 325 mg tablet RxNorm: 820903 2 Tablet(s) PO scheduled TID as needed 08/31/2017 09/14/2017 Inactive Not to exceed 3gm/24hr acetaminophen fentanyl 100 mcg/hr transdermal patch RxNorm: 475639 1 Patch TD Q72H 08/24/2017 09/19/2017 Inactive fentanyl 50 mcg/hr transdermal patch RxNorm: 191511 1 Patch TD Q72H 08/24/2017 09/08/2017 Inactive fentanyl 25 mcg/hr transdermal patch RxNorm: 094280 1 Patch TD Q72H 08/24/2017 08/24/2017 Inactive hyoscyamine 0.125 mg disintegrating tablet RxNorm: 6512514 Tablet(s) 1-2 Tablet(s) PO Q8 as needed 08/23/2017 09/14/2017 Inactive hydrocodone 10 mg-acetaminophen 325 mg tablet RxNorm: 680108 1 Tablet(s) PO scheduled TID et Q6 hours as needed 08/18/2017 08/30/2017 Inactive Not to exceed 3gm/24hr acetaminophen hydrochlorothiazide 25 mg tablet RxNorm: 775791 GIVE 1 TABLET VIA PEG TUBE ONCE DAILY 08/17/2017 02/12/2018 Inactive Generic For:HYDRODIURIL 25 MG TABLET 08/17/2017 9:01:54 AM08/11/2017 10:12:00 AM lorazepam 0.5 mg tablet RxNorm: 372117 1/2 Tablet(s) PO BID 08/03/2017 09/14/2017 Inactive fentanyl 100 mcg/hr transdermal patch RxNorm: 659535 1 Patch TD Q72H 07/26/2017 08/23/2017 Inactive fentanyl 25 mcg/hr transdermal patch RxNorm: 302067 1 Patch TD Q72H 07/26/2017 08/23/2017 Inactive hydrocodone 10 mg-acetaminophen 325 mg tablet RxNorm: 923231 1 Tablet(s) PO scheduled TID et Q6 hours as needed 07/16/2017 08/14/2017 Inactive Not to exceed 3gm/24hr acetaminophen hyoscyamine 0.125 mg disintegrating tablet RxNorm: 6362111 Tablet(s) 1-2 Tablet(s) PO Q8 as needed 07/13/2017 08/01/2017 Inactive baclofen 10 mg tablet RxNorm: 709130 TAKE 1 TABLET THREE TIMES DAILY VIA STOMACH TUBE 07/12/2017 10/06/2017 Inactive 07/12/2017 9:04:08 AM N O T I C E Last quantity doesn't match original quantity lorazepam 0.5 mg tablet RxNorm: 945987 1/2 Tablet(s) PO BID 07/02/2017 08/02/2017 Inactive fentanyl 100 mcg/hr transdermal patch RxNorm: 055727 1 Patch TD Q72H 06/28/2017 07/25/2017 Inactive fentanyl 25 mcg/hr transdermal patch RxNorm: 802056 1 Patch TD Q72H 06/28/2017 07/25/2017 Inactive hyoscyamine 0.125 mg disintegrating tablet RxNorm: 3131904 Tablet(s) 1-2 Tablet(s) PO Q8 as needed 06/03/2017 06/22/2017 Inactive fentanyl 25 mcg/hr transdermal patch RxNorm: 187153 1 Patch TD Q72H 05/26/2017 06/24/2017 Inactive Levemir FlexTouch U-100 Insulin 100 unit/mL (3 mL) subcutaneous pen RxNorm: 966397 20 Unit(s) SQ BID 05/26/2017 09/08/2017 Inactive fentanyl 100 mcg/hr transdermal patch RxNorm: 791097 1 Patch TD Q72H 05/26/2017 06/24/2017 Inactive hydrocodone 10 mg-acetaminophen 325 mg tablet RxNorm: 535690 1 Tablet(s) PO scheduled BID et Q6 hours as needed 05/12/2017 05/11/2017 Inactive hydrocodone 10 mg-acetaminophen 325 mg tablet RxNorm: 939028 1 Tablet(s) PO scheduled TID et Q6 hours as needed 05/12/2017 06/10/2017 Inactive Not to exceed 3gm/24hr acetaminophen docusate sodium 100 mg tablet RxNorm: 0317082 1 Tablet(s) PO BID as needed if no bowel movement 05/10/2017 05/09/2017 Inactive lisinopril 20 mg tablet RxNorm: 337789 1 Tablet(s) PO daily 05/10/2017 09/08/2017 Inactive docusate sodium 100 mg tablet RxNorm: 8157109 1 Tablet(s) PO BID as needed if no bowel movement 05/10/2017 09/14/2017 Inactive fentanyl 25 mcg/hr transdermal patch RxNorm: 468354 1 Patch TD Q72H 05/03/2017 05/25/2017 Inactive lorazepam 0.5 mg tablet RxNorm: 355340 1/2 Tablet(s) PO BID 05/03/2017 07/01/2017 Inactive fentanyl 100 mcg/hr transdermal patch RxNorm: 497116 1 Patch TD Q72H 04/27/2017 05/25/2017 Inactive carvedilol 3.125 mg tablet RxNorm: 272210 Tablet(s) GIVE 1 TABLET VIA PEG TUBE DAILY 04/15/2017 10/21/2017 Inactive Levemir FlexTouch 100 unit/mL (3 mL) subcutaneous insulin pen RxNorm: 678664 10 Unit(s) SQ BID 04/15/2017 2017 Inactive hyoscyamine 0.125 mg disintegrating tablet RxNorm: 8676644 1-2 Tablet(s) PO Q8 as needed 04/14/2017 05/03/2017 Inactive hydrocodone 10 mg-acetaminophen 325 mg tablet RxNorm: 757875 1 Tablet(s) PO scheduled BID et Q6 hours as needed 04/13/2017 05/02/2017 Inactive baclofen 10 mg tablet RxNorm: 849465 TAKE 1 TABLET THREE TIMES DAILY VIA STOMACH TUBE 04/08/2017 05/22/2017 Inactive 04/08/2017 9:32:07 AM fentanyl 25 mcg/hr transdermal patch RxNorm: 550564 1 Patch TD Q72H 04/05/2017 05/02/2017 Inactive lidocaine 10 mg/mL (1 %) injection solution RxNorm: 6742263 1 Milliliter(s) Inj daily Mix with rocephin 03/31/2017 03/30/2017 Inactive Pt resides at [facility] lidocaine 10 mg/mL (1 %) injection solution RxNorm: 3854425 1 Milliliter(s) Inj daily Mix with rocephin 03/31/2017 04/06/2017 Inactive Pt resides at [facility] fentanyl 100 mcg/hr transdermal patch RxNorm: 320434 1 Patch TD Q72H 03/29/2017 04/26/2017 Inactive nystatin 100,000 unit/gram topical powder RxNorm: 943654 APPLY UNDER BREASTS TWICE DAILY FOR YEAST SKIN INFECTION AND APPLY TO UNDERARM AND ABDOMINAL FOLDS AND PERIAREA TWICE DAILY 03/29/2017 03/28/2017 Inactive 03/27/2017 9:12:50 AM nystatin 100,000 unit/gram topical powder RxNorm: 348638 APPLY UNDER BREASTS TWICE DAILY FOR YEAST SKIN INFECTION AND APPLY TO UNDERARM AND ABDOMINAL FOLDS AND PERIAREA TWICE DAILY 03/29/2017 09/14/2017 Inactive 03/29/2017 9:42:55 AM03/27/2017 9:12:50 AM hyoscyamine 0.125 mg disintegrating tablet RxNorm: 2030791 1-2 Tablet(s) PO Q8 as needed 03/08/2017 03/27/2017 Inactive fentanyl 25 mcg/hr transdermal patch RxNorm: 787897 1 Patch TD Q72H 03/02/2017 03/31/2017 Inactive hydrocodone 10 mg-acetaminophen 325 mg tablet RxNorm: 773048 1 Tablet(s) PO scheduled BID et Q6 hours as needed 02/17/2017 03/18/2017 Inactive fentanyl 100 mcg/hr transdermal patch RxNorm: 772733 1 Patch TD Q72H 02/17/2017 03/18/2017 Inactive Lexapro 10 mg tablet RxNorm: 113234 1 Tablet(s) PO daily 02/05/2017 04/14/2017 Inactive Lexapro 10 mg tablet RxNorm: 115786 1 Tablet(s) PO daily 02/05/2017 02/04/2017 Inactive fentanyl 25 mcg/hr transdermal patch RxNorm: 656536 1 Patch TD Q72H 02/04/2017 03/01/2017 Inactive cyanocobalamin (vit B-12) 1,000 mcg tablet RxNorm: 312369 1 Tablet(s) PO daily 01/18/2017 12/13/2017 Inactive hyoscyamine 0.125 mg disintegrating tablet RxNorm: 0287025 Tablet(s) 1-2 Tablet(s) PO Q8 as needed 01/18/2017 02/06/2017 Inactive baclofen 10 mg tablet RxNorm: 283038 TAKE 1 TABLET THREE TIMES DAILY VIA STOMACH TUBE 01/04/2017 02/17/2017 Inactive 01/04/2017 9:25:18 AM fentanyl 100 mcg/hr transdermal patch RxNorm: 219711 1 Patch TD Q72H 12/25/2016 01/23/2017 Inactive hydrochlorothiazide 25 mg tablet RxNorm: 428388 Tablet(s) GIVE 1 TABLET VIA PEG TUBE ONCE A DAY 12/14/2016 07/11/2017 Inactive fentanyl 100 mcg/hr transdermal patch RxNorm: 346022 1 Patch TD Q72H 11/25/2016 12/24/2016 Inactive hyoscyamine 0.125 mg disintegrating tablet RxNorm: 9554461 Tablet(s) 1-2 Tablet(s) PO Q8 as needed 11/25/2016 12/14/2016 Inactive nystatin 100,000 unit/gram topical powder RxNorm: 023201 APPLY UNDER BREASTS TWICE DAILY FOR YEAST SKIN INFECTION AND APPLY TO UNDERARM AND ABDOMINAL FOLDS AND PERIAREA TWICE DAILY 11/24/2016 01/22/2017 Inactive 11/24/2016 9:34:02 AM hydrocodone 10 mg-acetaminophen 325 mg tablet RxNorm: 686730 1 Tablet(s) PO scheduled BID et Q6 hours as needed 11/02/2016 12/01/2016 Inactive cyanocobalamin (vit B-12) 1,000 mcg tablet RxNorm: 980119 1 Tablet(s) PO daily 11/02/2016 01/17/2017 Inactive hyoscyamine 0.125 mg disintegrating tablet RxNorm: 6133267 1-2 Tablet(s) PO Q8 as needed 10/19/2016 11/24/2016 Inactive fentanyl 100 mcg/hr transdermal patch RxNorm: 151162 1 Patch TD Q72H 10/13/2016 11/11/2016 Inactive hydrocodone 10 mg-acetaminophen 325 mg tablet RxNorm: 340375 1 Tablet(s) PO scheduled BID et Q6 hours as needed 10/05/2016 11/01/2016 Inactive baclofen 10 mg tablet RxNorm: 716869 TAKE 1 TABLET THREE TIMES DAILY VIA STOMACH TUBE 10/01/2016 11/14/2016 Inactive 10/01/2016 9:24:37 AM carvedilol 3.125 mg tablet RxNorm: 175049 GIVE 1 TABLET VIA PEG TUBE 2 TIMES A DAY 09/30/2016 12/28/2016 Inactive Generic For:COREG 3.125MG 09/30/2016 1:12:28 PM09/25/2016 9:06:11 AM Probiotic Blend 2 million cell-50 mg capsule RxNorm: 1 Capsule(s) PO BID 09/17/2016 09/23/2016 Inactive Keflex 500 mg capsule RxNorm: 314184 1 Capsule(s) PO TID 09/17/2016 09/23/2016 Inactive hyoscyamine 0.125 mg/5 mL oral elixir RxNorm: 7604339 5 Milliliter(s) PO TID 09/08/2016 09/17/2016 Inactive hyoscyamine 0.125 mg/5 mL oral elixir RxNorm: 7943997 5 Milliliter(s) PO TID 09/08/2016 09/07/2016 Inactive hyoscyamine 0.125 mg disintegrating tablet RxNorm: 9890448 1-2 Tablet(s) PO Q8 as needed 09/07/2016 10/18/2016 Inactive fentanyl 100 mcg/hr transdermal patch RxNorm: 009768 1 Patch TD Q72H 09/01/2016 09/30/2016 Inactive ranitidine 150 mg tablet RxNorm: 970921 1 Tablet(s) PO BID 08/25/2016 No Stop Date Active hydrocodone 10 mg-acetaminophen 325 mg tablet RxNorm: 248398 1 Tablet(s) PO scheduled BID et Q6 hours as needed 08/24/2016 09/22/2016 Inactive cyanocobalamin (vit B-12) 1,000 mcg tablet RxNorm: 188421 1 Tablet(s) PO daily 08/12/2016 11/01/2016 Inactive cyanocobalamin (vit B-12) 1,000 mcg tablet RxNorm: 331185 1 Tablet(s) PO daily 08/12/2016 08/11/2016 Inactive hydrocodone 10 mg-acetaminophen 325 mg tablet RxNorm: 925406 1-2 Tablet(s) PO Q6 as needed 08/03/2016 08/17/2016 Inactive fentanyl 100 mcg/hr transdermal patch RxNorm: 984953 1 Patch TD Q72H 08/03/2016 08/31/2016 Inactive nystatin 100,000 unit/gram topical powder RxNorm: 188944 APPLY UNDER BREASTS TWICE DAILY FOR YEAST SKIN INFECTION AND APPLY TO UNDERARM AND ABDOMINAL FOLDS AND PERIAREA TWICE DAILY 07/17/2016 09/14/2016 Inactive 07/17/2016 3:56:54 PM fentanyl 100 mcg/hr transdermal patch RxNorm: 791549 1 Patch TD Q72H 07/15/2016 08/02/2016 Inactive lisinopril 20 mg tablet RxNorm: 385683 1 Tablet(s) PO daily 07/02/2016 03/28/2017 Inactive hydrocodone 10 mg-acetaminophen 325 mg tablet RxNorm: 622904 1-2 Tablet(s) PO Q6 as needed 07/01/2016 07/15/2016 Inactive Xarelto 20 mg tablet RxNorm: 5007613 Tablet(s) TAKE 1 TABLET VIA PEG TUBE AT BEDTIME 06/19/2016 04/14/2017 Inactive fentanyl 100 mcg/hr transdermal patch RxNorm: 879392 1 Patch TD Q72H 06/17/2016 07/14/2016 Inactive nystatin 100,000 unit/gram topical powder RxNorm: 733920 APPLY TO UNDER BREASTS TWICE DAILY FOR YEAST SKIN INFECTION AND APPLY TO UNDERARM AND ABDOMINAL FOLDS AND PERIAREA TWICE DAILY 06/15/2016 07/16/2016 Inactive Generic For:MYCOSTATIN 100,000 UNITS/GM PW 06/15/2016 12:28:26 PM fentanyl 100 mcg/hr transdermal patch RxNorm: 899616 1 Patch TD Q72H 06/05/2016 06/16/2016 Inactive hydrocodone 10 mg-acetaminophen 325 mg tablet RxNorm: 880304 1-2 Tablet(s) PO Q6 as needed 06/02/2016 06/16/2016 Inactive Probiotic Blend 2 million cell-50 mg capsule RxNorm: 1 Capsule(s) PO BID 05/13/2016 05/19/2016 Inactive nitrofurantoin 100 mg capsule RxNorm: 215793 1 Capsule(s) PO BID 05/13/2016 05/19/2016 Inactive nitrofurantoin 100 mg capsule RxNorm: 623573 1 Capsule(s) PO BID 05/13/2016 05/12/2016 Inactive fentanyl 75 mcg/hr transdermal patch RxNorm: 776234 1 Patch TD Q72H 05/13/2016 06/04/2016 Inactive Keflex 500 mg capsule RxNorm: 590185 1 Capsule(s) PO TID 05/07/2016 05/13/2016 Inactive Patient at [facility] Keflex 500 mg capsule RxNorm: 211277 1 Capsule(s) PO TID 05/07/2016 05/06/2016 Inactive hydrocodone 10 mg-acetaminophen 325 mg tablet RxNorm: 689386 1-2 Tablet(s) PO Q6 as needed 05/04/2016 06/01/2016 Inactive hydrochlorothiazide 25 mg tablet RxNorm: 693485 Tablet(s) GIVE 1 TABLET VIA PEG TUBE ONCE A DAY 04/29/2016 11/24/2016 Inactive hydrochlorothiazide 25 mg tablet RxNorm: 173280 GIVE 1 TABLET VIA PEG TUBE ONCE A DAY 04/22/2016 04/28/2016 Inactive Generic For:HYDRODIURIL 25 MG TABLET refill request fentanyl 75 mcg/hr transdermal patch RxNorm: 547731 1 Patch TD Q72H 04/17/2016 05/12/2016 Inactive Xarelto 20 mg tablet RxNorm: 5731533 TAKE 1 TABLET VIA PEG TUBE AT BEDTIME 04/16/2016 06/14/2016 Inactive 04/16/2016 9:08:52 AM citalopram 40 mg tablet RxNorm: 004900 1 Tablet(s) PO daily 04/02/2016 02/25/2017 Inactive citalopram 40 mg tablet RxNorm: 920569 1 Tablet(s) PO daily 03/27/2016 04/01/2016 Inactive hydrocodone 10 mg-acetaminophen 325 mg tablet RxNorm: 070172 1-2 Tablet(s) PO Q6 as needed 03/27/2016 04/25/2016 Inactive fentanyl 75 mcg/hr transdermal patch RxNorm: 617158 1 Patch TD Q72H 03/18/2016 04/16/2016 Inactive hydrocodone 10 mg-acetaminophen 325 mg tablet RxNorm: 989168 1-2 Tablet(s) PO Q6 as needed 03/11/2016 03/26/2016 Inactive citalopram 40 mg tablet RxNorm: 315450 1 Tablet(s) PO daily 03/04/2016 03/26/2016 Inactive Levemir FlexTouch U-100 Insulin 100 unit/mL (3 mL) subcutaneous pen RxNorm: 712173 20 Unit(s) SQ BID 03/02/2016 09/27/2016 Inactive lisinopril 20 mg tablet RxNorm: 198774 1 Tablet(s) PO daily 02/25/2016 07/01/2016 Inactive Ativan 0.5 mg tablet RxNorm: 752792 1 Tablet(s) PO Q4H as needed 02/18/2016 04/14/2017 Inactive Xarelto 20 mg tablet RxNorm: 2940813 TAKE 1 TABLET VIA PEG TUBE AT BEDTIME 02/12/2016 04/11/2016 Inactive 02/12/2016 9:08:22 AM hydrocodone 10 mg-acetaminophen 325 mg tablet RxNorm: 280931 1-2 Tablet(s) PO Q6 as needed 02/12/2016 03/10/2016 Inactive fentanyl 75 mcg/hr transdermal patch RxNorm: 157742 1 Patch TD Q72H 02/11/2016 03/11/2016 Inactive citalopram 20 mg tablet RxNorm: 730625 1 Tablet(s) PO daily 01/28/2016 03/03/2016 Inactive fentanyl 75 mcg/hr transdermal patch RxNorm: 434297 1 TD Q72H 01/17/2016 02/10/2016 Inactive hydrocodone 10 mg-acetaminophen 325 mg tablet RxNorm: 886186 1-2 Tablet(s) PO Q6 as needed 01/07/2016 02/05/2016 Inactive fentanyl 50 mcg/hr transdermal patch RxNorm: 446321 1 TD Q72H 01/01/2016 01/16/2016 Inactive fentanyl 50 mcg/hr transdermal patch RxNorm: 280518 1 TD q 3 days 12/26/2015 12/31/2015 Inactive Xarelto 20 mg tablet RxNorm: 2962908 TAKE 1 TABLET VIA PEG TUBE AT BEDTIME 12/17/2015 02/11/2016 Inactive 12/16/2015 3:27:57 PM12/14/2015 9:45:17 AM hydrocodone 10 mg-acetaminophen 325 mg tablet RxNorm: 802933 1-2 Tablet(s) PO Q6 as needed 12/06/2015 01/04/2016 Inactive fentanyl 50 mcg/hr transdermal patch RxNorm: 979033 1 TD q 3 days 12/06/2015 12/25/2015 Inactive fentanyl 25 mcg/hr transdermal patch RxNorm: 023541 1 TD q 3 days 11/18/2015 12/05/2015 Inactive Zithromax Z-Eliu 250 mg tablet RxNorm: 300226 1 Tablet(s) PO UD 10/09/2015 02/26/2016 Inactive z pack as directed- please write out instructions- pt at [facility] nystatin 100,000 unit/gram topical powder RxNorm: 130417 APPLY TO UNDER BREASTS TWICE DAILY FOR YEAST SKIN INFECTION AND APPLY TO UNDERARM AND ABDOMINAL FOLDS AND PERIAREA TWICE DAILY 10/07/2015 12/05/2015 Inactive Generic For:MYCOSTATIN 100,000 UNITS/GM PW 10/05/2015 12:07:35 PM fentanyl 25 mcg/hr transdermal patch RxNorm: 054976 1 TD q 3 days 10/03/2015 11/01/2015 Inactive fentanyl 25 mcg/hr transdermal patch RxNorm: 992148 1 TD q 3 days 09/27/2015 10/02/2015 Inactive fentanyl 25 mcg/hr transdermal patch RxNorm: 315253 1 TD q 3 days 09/17/2015 09/26/2015 Inactive fentanyl 25 mcg/hr transdermal patch RxNorm: 592786 1 TD q 3 days 08/30/2015 09/16/2015 Inactive hydrocodone 5 mg-acetaminophen 325 mg tablet RxNorm: 974469 1 Tablet(s) PO Q6 as needed 08/30/2015 09/28/2015 Inactive Diflucan 100 mg tablet RxNorm: 502337 1 Tablet(s) Miscellaneous per peg daily 07/29/2015 08/04/2015 Inactive fentanyl 25 mcg/hr transdermal patch RxNorm: 237036 1 TD q 3 days 07/18/2015 08/29/2015 Inactive hydrocodone 5 mg-acetaminophen 325 mg tablet RxNorm: 204239 1 Tablet(s) PO Q6 as needed 07/18/2015 08/29/2015 Inactive Diflucan 100 mg tablet RxNorm: 664023 1 Tablet(s) Miscellaneous per peg daily 06/17/2015 06/23/2015 Inactive Senna-S 8.6 mg-50 mg tablet RxNorm: 396471 1 Tablet(s) PO daily as needed constipation No Start Date Active Dulcolax (bisacodyl) 10 mg rectal suppository RxNorm: 072137 1 Suppository RTL daily as needed constipation No Start Date Active polyethylene glycol 3350 17 gram/dose oral powder RxNorm: 199910 17 Gram(s) PO daily as needed constipation No Start Date Active baclofen 10 mg tablet RxNorm: 661116 1 Tablet(s) PO TID No Start Date 09/30/2016 Inactive Ativan 0.5 mg tablet RxNorm: 419184 1 Tablet(s) PO Q4H as needed No Start Date 02/17/2016 Inactive ranitidine 150 mg tablet RxNorm: 509619 1 Tablet(s) PO daily No Start Date 08/24/2016 Inactive carvedilol 3.125 mg tablet RxNorm: 417462 1 Tablet(s) PO daily No Start Date 09/29/2016 Inactive citalopram 40 mg tablet RxNorm: 154566 1 Tablet(s) PO daily No Start Date 01/27/2016 Inactive Probiotic Blend oral RxNorm: oral No Start Date 05/12/2016 Inactive hydrochlorothiazide 25 mg tablet RxNorm: 120791 1 Tablet(s) PO daily No Start Date 04/21/2016 Inactive albuterol sulfate concentrate 5 mg/mL(0.5 %) solution for nebulization RxNorm: 470850 1 Vial INH daily as needed congestion No Start Date 03/17/2018 Inactive Levemir FlexTouch 100 unit/mL (3 mL) subcutaneous insulin pen RxNorm: 777060 10 Unit(s) SQ BID No Start Date 03/01/2016 Inactive Zithromax Z-Eliu 250 mg tablet RxNorm: 737035 1 Tablet(s) PO UD No Start Date 10/08/2015 Inactive z pack as directed- please write out instructions- pt at [facility] nystatin 100,000 unit/gram topical powder RxNorm: 009801 Gram(s) TOP BID as needed No Start Date 10/06/2015 Inactive pravastatin 40 mg tablet RxNorm: 366829 Tablet(s) PO daily No Start Date 04/14/2017 Inactive lorazepam 0.5 mg tablet RxNorm: 937226 1/2 Tablet(s) PO BID No Start Date 05/02/2017 Inactive Xarelto 20 mg tablet RxNorm: 0610339 1 Tablet(s) PO daily No Start Date 12/16/2015 Inactive fentanyl 25 mcg/hr transdermal patch RxNorm: 026671 1 TD q 3 days No Start Date 07/17/2015 Inactive lisinopril 20 mg tablet RxNorm: 319506 1 Tablet(s) PO daily No Start Date 02/24/2016 Inactive hydrocodone 5 mg-acetaminophen 325 mg tablet RxNorm: 343189 1 Tablet(s) PO Q6 as needed No Start Date 07/17/2015 Inactive citalopram 40 mg tablet RxNorm: 433524 1 Tablet(s) PO daily No Start Date 03/03/2016 Inactive hyoscyamine 0.125 mg disintegrating tablet RxNorm: 2584843 1-2 Tablet(s) PO Q8 as needed No [...] Code Item Item Code Result Date %Hba1C Vth103 % HbA1c 23665- 6 5.5 % 05/18/2018 %Hba1C Idk933 Gluc Ave 111 mg/dL 05/18/2018 Cbc With [...] 32.3 pg 05/18/2018 Cbc With Differential Ord2 [place]% 4.9 % 05/18/2018 Cbc With Differential Ord2 [...] 1.81 K/ul 05/18/2018 Cbc With Differential Ord2 [place] ABS# 0.4 K/ul 05/18/2018 Cbc With Differential Ord2 Eos ABS# 0.6 K/ul 05/18/2018 Cbc With Differential Ord2 Baso ABS# 0.0 K/ul 05/18/2018 Tsh Ord6 TSH (3rd IS) 0.85 uIU/mL 05/18/2018 Comp Metabolic Ifb855 NA 137 mEq/L 05/18/2018 Comp Metabolic Wnk157 K 4.2 mEq/L 05/18/2018 Comp Metabolic Ycg261 CL 97 mEq/L 05/18/2018 Comp Metabolic Qva691 CO2 34.0 mEq/L 05/18/2018 Comp Metabolic Yok984 ANION GAP 10 05/18/2018 Comp Metabolic Ggh530 GLUCOSE 177 mg/dL 05/18/2018 Comp Metabolic Fma434 Creat 0.5 mg/dL 05/18/2018 Comp Metabolic Pmw203 eGFR 122 ml/min/1.73m2 05/18/2018 Comp Metabolic Uil978 BUN 23 mg/dL 05/18/2018 Comp Metabolic Amt195 B/C Ratio 43.4 Ratio 05/18/2018 Comp Metabolic Kwl284 CALCIUM 9.2 mg/dL 05/18/2018 Comp Metabolic Gxu788 ALK PHOS 86 U/L 05/18/2018 Comp Metabolic Rck439 AST(SGOT) 14 U/L 05/18/2018 Comp Metabolic Ygx803 ALT(SGPT) 9 U/L 05/18/2018 Comp Metabolic Pkf067 BILI T 0.3 mg/dL 05/18/2018 Comp Metabolic Fbo140 ALBUMIN 3.7 g/dL 05/18/2018 Comp Metabolic Rzx840 TPRO 6.2 g/dL 05/18/2018 Comp Metabolic Bir591 GLOB 2.6 g/dL 05/18/2018 Comp Metabolic Gpx246 A/G Ratio 1.4 Ratio 05/18/2018 Comp Metabolic Mdr991 Osmo 282 mOsmo 05/18/2018 A1C Frequency Fdh257 A1CF 76235-0 Last A1C performed at [facility] lab on: 02-14-2018 05/10/2018 Cbc With Differential [...] 30.7 pg 02/14/2018 Cbc With Differential Ord2 [place]% 7.4 % 02/14/2018 Cbc With Differential Ord2 [...] 2.14 K/ul 02/14/2018 Cbc With Differential Ord2 [place] ABS# 0.5 K/ul 02/14/2018 Cbc With Differential Ord2 Eos ABS# 0.3 K/ul 02/14/2018 Cbc With Differential Ord2 Baso ABS# 0.0 K/ul 02/14/2018 Comp Metabolic Lca955 NA 142 mEq/L 02/14/2018 Comp Metabolic Qgw711 K 4.5 mEq/L 02/14/2018 Comp Metabolic Nmz047 CL 97 mEq/L 02/14/2018 Comp Metabolic Keo996 CO2 41.0 mEq/L 02/14/2018 Comp Metabolic Txs243 ANION GAP 9 02/14/2018 Comp Metabolic Qcn764 GLUCOSE 111 mg/dL 02/14/2018 Comp Metabolic Pbu884 Creat 0.6 mg/dL 02/14/2018 Comp Metabolic Efp976 eGFR 108 ml/min/1.73m2 02/14/2018 Comp Metabolic Jbt205 BUN 32 mg/dL 02/14/2018 Comp Metabolic Jrm702 B/C Ratio 54.2 Ratio 02/14/2018 Comp Metabolic Vwi822 CALCIUM 8.9 mg/dL 02/14/2018 Comp Metabolic Oks359 ALK PHOS 81 U/L 02/14/2018 Comp Metabolic Jdp696 AST(SGOT) 14 U/L 02/14/2018 Comp Metabolic Krv295 ALT(SGPT) 11 U/L 02/14/2018 Comp Metabolic Teo477 BILI T 0.3 mg/dL 02/14/2018 Comp Metabolic Ejp663 ALBUMIN 3.4 g/dL 02/14/2018 Comp Metabolic Yge574 TPRO 6.3 g/dL 02/14/2018 Comp Metabolic Rzi074 GLOB 2.9 g/dL 02/14/2018 Comp Metabolic Wef615 A/G Ratio 1.2 Ratio 02/14/2018 Comp Metabolic Geu371 Osmo 291 mOsmo 02/14/2018 %Hba1C Zhe566 % HbA1c 56720- 6 5.5 % 02/14/2018 %Hba1C Uww542 Gluc Ave 111 mg/dL 02/14/2018 Prealbumin 392581 PREALBUMIN 27 mg/dL 11/24/2017 %Hba1C Eve078 % HbA1c 42419- 6 5.5 % 11/04/2017 %Hba1C Kow333 Gluc Ave 111 mg/dL 11/04/2017 Culture Urine [id number] URINE CULTURE SEE NOTES 10/04/2017 Culture Urine [id number] Continued Results 10/04/2017 Urine Culture Ucult Complete [...] Ord28 U-Com Culture to follow 10/01/2017 B12 Nra432 B12 >1500.00 pg/ml 02/19/2017 Cbc With Differential [...] 31.5 pg 02/02/2017 Cbc With Differential Ord2 [place]% 8.3 % 02/02/2017 Cbc With Differential Ord2 [...] 2.28 K/ul 02/02/2017 Cbc With Differential Ord2 [place] ABS# 0.6 K/ul 02/02/2017 Cbc With Differential Ord2 Eos ABS# 0.4 K/ul 02/02/2017 Cbc With Differential Ord2 Baso ABS# 0.0 K/ul 02/02/2017 %Hba1C Noq524 % HbA1c 35480- 6 5.2 % 02/02/2017 %Hba1C Seh225 Gluc Ave 103 mg/dL 02/02/2017 Comp Metabolic Ooh282 NA 138 mEq/L 02/02/2017 Comp Metabolic Zhj071 K 4.5 mEq/L 02/02/2017 Comp Metabolic Kqp832 CL 98 mEq/L 02/02/2017 Comp Metabolic Wzp521 CO2 37.0 mEq/L 02/02/2017 Comp Metabolic Yag749 ANION GAP 8 02/02/2017 Comp Metabolic Jnh314 GLUCOSE 94 mg/dL 02/02/2017 Comp Metabolic Dzj109 Creat 0.7 mg/dL 02/02/2017 Comp Metabolic Krc543 eGFR 88 ml/min/1.73m2 02/02/2017 Comp Metabolic Map901 BUN 36 mg/dL 02/02/2017 Comp Metabolic Src854 B/C Ratio 50.7 Ratio 02/02/2017 Comp Metabolic Hwu234 CALCIUM 9.0 mg/dL 02/02/2017 Comp Metabolic Dgl325 ALK PHOS 78 U/L 02/02/2017 Comp Metabolic Rlq773 AST(SGOT) 22 U/L 02/02/2017 Comp Metabolic Ueo665 ALT(SGPT) 28 U/L 02/02/2017 Comp Metabolic Pjw371 BILI T 0.3 mg/dL 02/02/2017 Comp Metabolic Tzq714 ALBUMIN 3.3 g/dL 02/02/2017 Comp Metabolic Rew372 TPRO 5.9 g/dL 02/02/2017 Comp Metabolic Wak946 GLOB 2.6 g/dL 02/02/2017 Comp Metabolic Has811 A/G Ratio 1.3 Ratio 02/02/2017 Comp Metabolic Srj710 Osmo 284 mOsmo 02/02/2017 %Hba1C Efb984 % HbA1c 70185- 6 5.0 % 10/29/2016 %Hba1C Ftx013 Gluc Ave 97 mg/dL 10/29/2016 Culture Urine [id number] URINE CULTURE SEE NOTES 09/21/2016 Culture Urine [id number] Continued Results 09/21/2016 Urine Culture Ucult Complete [...] 32.4 pg 07/30/2016 Cbc With Differential Ord2 [place]% 7.2 % 07/30/2016 Cbc With Differential Ord2 [...] 2.69 K/ul 07/30/2016 Cbc With Differential Ord2 [place] ABS# 0.5 K/ul 07/30/2016 Cbc With Differential Ord2 Eos ABS# 0.5 K/ul 07/30/2016 Cbc With Differential Ord2 Baso ABS# 0.0 K/ul 07/30/2016 Comp Metabolic Hyr679 NA 141 mEq/L 07/30/2016 Comp Metabolic Dwy376 K 4.3 mEq/L 07/30/2016 Comp Metabolic Bih007 CL 100 mEq/L 07/30/2016 Comp Metabolic Xyc955 CO2 33.0 mEq/L 07/30/2016 Comp Metabolic Juz816 ANION GAP 12 07/30/2016 Comp Metabolic Clu335 GLUCOSE 64 mg/dL 07/30/2016 Comp Metabolic Otl575 Creat 0.5 mg/dL 07/30/2016 Comp Metabolic Knz022 eGFR 126 ml/min/1.73m2 07/30/2016 Comp Metabolic Rtp317 BUN 25 mg/dL 07/30/2016 Comp Metabolic Bsq173 B/C Ratio 48.1 Ratio 07/30/2016 Comp Metabolic Sju635 CALCIUM 8.9 mg/dL 07/30/2016 Comp Metabolic Mpg375 ALK PHOS 90 U/L 07/30/2016 Comp Metabolic Nvn819 AST(SGOT) 22 U/L 07/30/2016 Comp Metabolic Zgq065 ALT(SGPT) 36 U/L 07/30/2016 Comp Metabolic Smm297 BILI T 0.3 mg/dL 07/30/2016 Comp Metabolic Sop329 ALBUMIN 3.4 g/dL 07/30/2016 Comp Metabolic Jvi752 TPRO 6.0 g/dL 07/30/2016 Comp Metabolic Ftr238 GLOB 2.7 g/dL 07/30/2016 Comp Metabolic Fyl258 A/G Ratio 1.3 Ratio 07/30/2016 Comp Metabolic Ayb467 Osmo 284 mOsmo 07/30/2016 A1C Frequency Nxl577 A1CF 51287-9 Last A1C performed at [facility] lab on: 05-12-2016 07/30/2016 %Hba1C Vmu339 % HbA1c 18638- 6 5.2 % 05/12/2016 %Hba1C Sah748 Gluc Ave 103 mg/dL 05/12/2016 Culture Urine [id number] URINE CULTURE SEE NOTES 05/11/2016 Urine Culture [...] U-Com Culture to follow 05/06/2016 Culture Urine [id number] URINE CULTURE SEE NOTES 03/17/2016 Culture Urine [id number] Continued Results 03/17/2016 Urine Culture Ucult Complete [...] 32.0 pg 02/11/2016 Cbc With Differential Ord2 [place]% 9.1 % 02/11/2016 Cbc With Differential Ord2 [...] 2.59 K/ul 02/11/2016 Cbc With Differential Ord2 [place] ABS# 0.6 K/ul 02/11/2016 Cbc With Differential Ord2 Eos ABS# 0.3 K/ul 02/11/2016 Cbc With Differential Ord2 Baso ABS# 0.0 K/ul 02/11/2016 Comp Metabolic Ivq832 NA 137 mEq/L 02/11/2016 Comp Metabolic Yju718 K 4.4 mEq/L 02/11/2016 Comp Metabolic Qhq310 CL 100 mEq/L 02/11/2016 Comp Metabolic Zqe328 CO2 25.0 mEq/L 02/11/2016 Comp Metabolic Xmm582 ANION GAP 16 02/11/2016 Comp Metabolic Wwg871 GLUCOSE 99 mg/dL 02/11/2016 Comp Metabolic Arg272 Creat 0.6 mg/dL 02/11/2016 Comp Metabolic Pyw038 eGFR 99 ml/min/1.73m2 02/11/2016 Comp Metabolic Kpr910 BUN 27 mg/dL 02/11/2016 Comp Metabolic Jsj373 B/C Ratio 42.2 Ratio 02/11/2016 Comp Metabolic Gph274 CALCIUM 9.2 mg/dL 02/11/2016 Comp Metabolic Mdj791 ALK PHOS 74 U/L 02/11/2016 Comp Metabolic Xmn223 AST(SGOT) 24 U/L 02/11/2016 Comp Metabolic Yqr918 ALT(SGPT) 26 U/L 02/11/2016 Comp Metabolic Job299 BILI T 0.5 mg/dL 02/11/2016 Comp Metabolic Gnk998 ALBUMIN 3.5 g/dL 02/11/2016 Comp Metabolic Een374 TPRO 6.2 g/dL 02/11/2016 Comp Metabolic Phc322 GLOB 2.7 g/dL 02/11/2016 Comp Metabolic Bmj843 A/G Ratio 1.3 Ratio 02/11/2016 Comp Metabolic Ibs435 Osmo 279 mOsmo 02/11/2016 Review of Systems [...] 1: 128/86 Code: 8480-6 BMI: 31.4 Code: 11581-4 Heart Rate 1: 72 bpm Height: 5'1" Weight: 166 lbs 06/17/2015 Blood Pressure 1: 110/78 Code: 8480-6 BMI: 33.3 Code: 61455-6 Heart Rate 1: 74 bpm Height: 5'1" [...] data Encounters Encounter Performer Location Codes Date 46429 EST. PATIENT, LEVEL IV Diagnosis: Essential (primary) hypertension[ICD10: I10] Diagnosis: Type 2 diabetes mellitus without complications[ICD10: E11.9] Diagnosis: Chronic pain syndrome[ICD10: G89.4] Diagnosis: Encounter for palliative care[ICD10: Z51.5] Vonda Everett MD, [facility] CPT-4: 46191 07/13/2018 ([id number]) 35305 EST. PATIENT, LEVEL IV Diagnosis: Essential (primary) hypertension[ICD10: I10] Diagnosis: Chronic pain syndrome[ICD10: G89.4] Diagnosis: Type 2 diabetes mellitus without complications[ICD10: E11.9] Diagnosis: Dysphagia following cerebral infarction[ICD10: I69.391] Carlyn Everett MD, [facility] CPT-4: 48775 05/17/2018 ([id number]) 49354 EST. PATIENT, LEVEL IV Diagnosis: Cough[ICD10: R05] Diagnosis: Pneumonia, unspecified organism[ICD10: J18.9] Diagnosis: Pain in right knee[ICD10: M25.561] Carlyn Everett MD, [facility] CPT- 4: 32667 03/18/2018 ([id number]) 31161 EST. PATIENT, LEVEL IV Diagnosis: Type 2 diabetes mellitus without complications[ICD10: E11.9] Diagnosis: Essential (primary) hypertension[ICD10: I10] Diagnosis: Chronic pain syndrome[ICD10: G89.4] Carlyn Everett MD, [facility] CPT-4: 48700 01/07/2018 [id number]) 35869 EST. PATIENT, LEVEL IV Diagnosis: Essential (primary) hypertension[ICD10: I10] Diagnosis: Type 2 diabetes mellitus without complications[ICD10: E11.9] Carlyn Everett MD, [facility] CPT-4: 98855 2017 ([id number]) 55237 EST. PATIENT, LEVEL IV Diagnosis: Type 2 diabetes mellitus with hyperglycemia[ICD10: E11.65] Diagnosis: Essential (primary) hypertension[ICD10: I10] Diagnosis: Pain in left shoulder[ICD10: M25.512] Diagnosis: Pain in right shoulder[ICD10: M25.511] Diagnosis: Pain in left knee[ICD10: M25.562] Diagnosis: Pain in right knee[ICD10: M25.561] Vonda Everett MD, [facility] CPT- 4: 76060 09/09/2017 [id number] EST. PATIENT, LEVEL IV Diagnosis: Essential (primary) hypertension[ICD10: I10] Diagnosis: Type 2 diabetes mellitus with hyperglycemia[ICD10: E11.65] Diagnosis: Low back pain[ICD10: M54.5] Sunitha Everett MD, [facility] CPT-4: 52561 06/08/2017 ([id number]) 82388 EST. PATIENT, LEVEL IV Diagnosis: Essential (primary) hypertension[ICD10: I10] Diagnosis: Type 2 diabetes mellitus with hyperglycemia[ICD10: E11.65] Diagnosis: Low back pain[ICD10: M54.5] Sunitha Everett MD, [facility] CPT-4: 08590 04/15/2017 ([id number]) 85846 EST. PATIENT, LEVEL IV Diagnosis: Essential (primary) hypertension[ICD10: I10] Diagnosis: Type 2 diabetes mellitus with hyperglycemia[ICD10: E11.65] Diagnosis: Low back pain[ICD10: M54.5] Vonda Everett MD, [facility] CPT-4: 42734 02/16/2017 [id number] EST. 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 07/13/2018 Appointment: Vonda Everett WPtel: [address] [place], [place] [id number] (15 min) Moderate 07/13/2018 Patient Education: Patient [...] monitor. 05/17/2018 Appointment: Carlyn Higginbotham WPtel: [phone] [phone] [place] (15 min) Moderate 05/17/2018 Patient Education: Patient Medication Summary Completed 05/17/2018 Patient Education: Hypertension Completed 05/17/2018 Patient Education: Diabetes Completed 05/17/2018 Appointment: Carlyn Higginbotham WPtel: [phone] [place] (15 min) Moderate 04/07/2018 Visit Plan: Pneumonia - Pt has been diagnosed with pneumonia by physical exam. A chest xray has been ordered as have antibiotics. The pt is aware of the diagnosis and the need for acute treatment of this illness. Right knee pain -xray knee-rx for voltaren gel 03/18/2018 Appointment: Carlyn Higginbotham WPtel: [phone] [place] (30 min) Complex 03/18/2018 Patient Education: Patient Medication Summary Completed 03/18/2018 Appointment: Carlyn Higginbotham WPtel: [phone] [place] (30 min) Complex 03/17/2018 Appointment: Carlyn Higginbotham WPtel: [phone] [place] (15 min) Moderate 03/10/2018 Appointment: Carlyn Higginbotham WPtel[phone] [place] (15 min) Moderate 02/08/2018 Visit Plan: DM -decrease levemir to 4 units daily -monitor blood sugars WKX-fstpcvkwrs-ht changes Chronic pain -well controlled with fentanyl patch -no changes at this time 01/07/2018 Appointment: Carlyn Higginbotham WPtel: [phone] [place] (15 min) Moderate 01/07/2018 Patient Education: [...] HS 2017 Appointment: Carlyn Higginbotham WPtel: [phone] [phone] (15 min) Moderate 2017 Patient Education: Patient [...] 175mcg. 09/09/2017 Appointment: [facility] [phone] [facility] (15 min) Moderate 09/09/2017 Patient Education: Patient [...] and PRN pain medications - will have correction fax over PRN medication administration record. 06/08/2017 [...] today. 02/16/2017 Appointment: [facility] [phone] [facility] (15 min) Moderate 02/16/2017 Patient Education: Patient [...] or concerns. 11/09/2016 App[facility]ment[facility] [phone] [facility] (30 min) Complex 11/09/2016 Patient Education: Patient Medication Summary Completed 11/09/2016 Care Plan: Referral Order SNOMED-CT : [id number] Pending 11/09/2016 Patient Education: Patient Medication Summary [...] Follow up weight in 1 month Neck pcel-kmhbehirxej-Nlge PT focus neck/upper body Right earache-cerumen removed with water pick today in the office 07/18/2015 Appointment: (30 min) Complex 07/18/2015 Patient Education: Patient Medication Summary Completed 07/18/2015 Patient Education: Obesity Completed 07/18/2015 Patient Education: .Cervicalgia Neck Pain Completed 07/18/2015 [facility] [phone] [facility] Referral Completed 06/25/2015 Visit Plan: Hypertension - [...] normal liver response to medications. [facility] for post stroke - left sided weakness, neck stiffness, upper extremity weakness Diabetes Mellitus - controlled - per family report - check labs this week, get report from and [facility]. I spent over an hour with the patient in direct contact. 06/17/2015 Appointment: [facility] [phone] [facility] [place] New Patient 06/17/2015 Patient Education: Patient Medication Summary Completed 06/17/2015 Patient Education: Obesity Completed 06/17/2015 Patient Education: Hypertension Completed 06/17/2015 Care Plan: Referral Order SNOMED-CT : [id number] Ordered 06/17/2015 Referral: Jorge Luis Carroll Referral Initiated Referral: [facility] [phone] [facility] [place] Referral Appointment Requested Instructions Comment . Hypertension [...] and PRN pain medications - will have correction fax over PRN medication administration record. . [...] to 4 units daily -monitor blood sugars PXL-tqoahgvhcq-ib changes Chronic pain -well controlled with fentanyl [...] Add 1 scoop of whey protein from [facility] to 2 feedings per day . [...] Follow up weight in 1 month Neck wqlw-ubbaeijmeeu-Yasj PT focus neck/upper body Right earache-cerumen removed [...] normal liver response to medications. referral to [facility] for post stroke - left sided weakness, neck stiffness, upper extremity weakness Diabetes Mellitus - controlled - per family report - check labs this week, get report from and [facility]. I spent over an hour with [...]
--- OUTSIDE RECORDS SUMMARY | 2018-08-09 10:35 | XMS REPORT | CCD ---
Author Author [facility] Organization [facility] Address [address] [place] [address] Phone Care Team Providers Care Member Of Congress Name Role Phone PP Unavailable CCM Unavailable Summary Purpose Interface Exchange Insurance Providers Payer name Policy type / Coverage type Covered libertarian ID Effective Begin Date Effective End Date WPS Medicare Part B Medicare Part B [id number] Unknown Unknown [place] Senior [employer] Life Insurance Medicare Part B [id number] Unknown Unknown Family history Father Diagnosis Age At Onset Arthritis Unknown Hypertension Unknown Mother Diagnosis Age At Onset Diabetes mellitus Type 2 Unknown Depression Unknown Arthritis Unknown Stroke Unknown Hypertension Unknown Sister Diagnosis Age At Onset Colon cancer Unknown Social History Social History Element Codes Description Effective Dates Marital status Unknown Anothony 06/17/2015 Number of children Unknown 3 06/17/2015 Employment Unknown Retired 06/17/[address]: 1902538 Quit over 10 years ago 15+ 06/17/[address]: 107887562 Never drinks alcohol 06/17/2015 Allergies, Adverse Reactions, Alerts Substance Reaction Codes Entered Date Inactivated Date Status MORPHINE SULFATE emesis RxNorm: 7052 06/17/2015 No Inactive Date Active Past Medical History Illness Codes Condition Status Onset Date Resolved Date Urinary tract infection, site not specified ICD-9: 599.0 ICD-10: N39.0 Active 09/17/2016 Unknown Cervicalgia ICD-9: 723.1 ICD-10: M54.2 Active 07/17/2015 Unknown Dysphagia following cerebral infarction ICD-9: 438.82 ICD-10: I69.391 Active 07/17/2015 Unknown Essential (primary) hypertension ICD-9: 401.9 ICD-10: I10 Active 07/17/2015 Unknown Impacted cerumen, right ear ICD-9: 389.8 ICD-10: H61.21 Active 07/17/2015 Unknown Hyperlipidemia Unknown Active 06/17/2015 Unknown Hypertension Unknown Active 06/17/2015 Unknown Stroke Unknown Active 06/17/2015 Unknown 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 Active 06/16/2015 Unknown Ataxia following cerebral infarction ICD-9: 438.84 ICD-10: I69.393 Active 06/16/2015 Unknown Candidal esophagitis ICD- 9: 112.84 ICD-10: B37.81 Active 06/16/2015 Unknown 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 Active 06/16/2015 Unknown Gastrostomy status ICD- 9: V44.1 ICD-10: Z93.1 Active 06/16/2015 Unknown Type 2 diabetes mellitus with hyperglycemia ICD-9: 250.02 ICD-10: E11.65 Active 06/16/2015 Unknown Problems Condition Codes Effective Dates Condition Status Urinary tract infection, site not specified ICD-9: 599.0 ICD-10: N39.0 09/17/2016 Active Cervicalgia ICD-9: 723.1 ICD-10: M54.2 07/17/2015 Active Dysphagia following cerebral infarction ICD-9: 438.82 ICD-10: I69.391 07/17/2015 Active Essential (primary) hypertension ICD-9: 401.9 ICD-10: I10 07/17/2015 Active Impacted cerumen, right ear ICD-9: 389.8 ICD-10: H61.21 07/17/2015 Active Hyperlipidemia Unknown 06/17/2015 Active Hypertension Unknown 06/17/2015 Active Stroke Unknown 06/17/2015 Active 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 06/16/2015 Active Ataxia following cerebral infarction ICD-9: 438.84 ICD-10: I69.393 06/16/2015 Active Candidal esophagitis ICD- 9: 112.84 ICD-10: B37.81 06/16/2015 Active 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 06/16/2015 Active Gastrostomy status ICD- 9: V44.1 ICD-10: Z93.1 06/16/2015 Active Type 2 diabetes mellitus with hyperglycemia ICD-9: 250.02 ICD-10: E11.65 06/16/2015 Active Medications Medication Codes Instructions Start Date Stop Date Status Fill Instructions hydrocodone 10 mg-acetaminophen 325 mg tablet RxNorm: 623418 1 Tablet(s) PO scheduled BID et Q6 hours as needed 10/05/2016 11/03/2016 Active baclofen 10 mg tablet RxNorm: 306548 TAKE 1 TABLET THREE TIMES DAILY VIA STOMACH TUBE 10/01/2016 11/14/2016 Active 10/01/2016 9:24:37 AM carvedilol 3.125 mg tablet RxNorm: 301168 GIVE 1 TABLET VIA PEG TUBE 2 TIMES A DAY 09/30/2016 12/28/2016 Active Generic For:COREG 3.125MG 09/30/2016 1:12:28 PM09/25/2016 9:06:11 AM Probiotic Blend 2 million cell-50 mg capsule RxNorm: 1 Capsule(s) PO BID 09/17/2016 09/23/2016 Inactive Keflex 500 mg capsule RxNorm: 722107 1 Capsule(s) PO TID 09/17/2016 09/23/2016 Inactive hyoscyamine 0.125 mg/5 mL oral elixir RxNorm: 5772196 5 Milliliter(s) PO TID 09/08/2016 09/17/2016 Inactive hyoscyamine 0.125 mg/5 mL oral elixir RxNorm: 9808384 5 Milliliter(s) PO TID 09/08/2016 09/07/2016 Inactive hyoscyamine 0.125 mg disintegrating tablet RxNorm: 3901726 1-2 Tablet(s) PO Q8 as needed 09/07/2016 01/04/2017 Active fentanyl 100 mcg/hr transdermal patch RxNorm: 661246 1 Patch TD Q72H 09/01/2016 09/30/2016 Inactive ranitidine 150 mg tablet RxNorm: 421553 1 Tablet(s) PO BID 08/25/2016 No Stop Date Active hydrocodone 10 mg-acetaminophen 325 mg tablet RxNorm: 001531 1 Tablet(s) PO scheduled BID et Q6 hours as needed 08/24/2016 09/22/2016 Inactive cyanocobalamin (vit B-12) 1,000 mcg tablet RxNorm: 155924 1 Tablet(s) PO daily 08/12/2016 11/09/2016 Active cyanocobalamin (vit B-12) 1,000 mcg tablet RxNorm: 437365 1 Tablet(s) PO daily 08/12/2016 08/11/2016 Inactive hydrocodone 10 mg-acetaminophen 325 mg tablet RxNorm: 086676 1-2 Tablet(s) PO Q6 as needed 08/03/2016 08/17/2016 Inactive fentanyl 100 mcg/hr transdermal patch RxNorm: 582152 1 Patch TD Q72H 08/03/2016 08/31/2016 Inactive nystatin 100,000 unit/gram topical powder RxNorm: 622185 APPLY UNDER BREASTS TWICE DAILY FOR YEAST SKIN INFECTION AND APPLY TO UNDERARM AND ABDOMINAL FOLDS AND PERIAREA TWICE DAILY 07/17/2016 09/14/2016 Inactive 07/17/2016 3:56:54 PM fentanyl 100 mcg/hr transdermal patch RxNorm: 228369 1 Patch TD Q72H 07/15/2016 08/02/2016 Inactive lisinopril 20 mg tablet RxNorm: 638571 1 Tablet(s) PO daily 07/02/2016 03/28/2017 Active hydrocodone 10 mg-acetaminophen 325 mg tablet RxNorm: 576569 1-2 Tablet(s) PO Q6 as needed 07/01/2016 07/15/2016 Inactive Xarelto 20 mg tablet RxNorm: 3511027 Tablet(s) TAKE 1 TABLET VIA PEG TUBE AT BEDTIME 06/19/2016 01/14/2017 Active fentanyl 100 mcg/hr transdermal patch RxNorm: 766943 1 Patch TD Q72H 06/17/2016 07/14/2016 Inactive nystatin 100,000 unit/gram topical powder RxNorm: 771961 APPLY TO UNDER BREASTS TWICE DAILY FOR YEAST SKIN INFECTION AND APPLY TO UNDERARM AND ABDOMINAL FOLDS AND PERIAREA TWICE DAILY 06/15/2016 07/16/2016 Inactive Generic For:MYCOSTATIN 100,000 UNITS/GM PW 06/15/2016 12:28:26 PM fentanyl 100 mcg/hr transdermal patch RxNorm: 076541 1 Patch TD Q72H 06/05/2016 06/16/2016 Inactive hydrocodone 10 mg-acetaminophen 325 mg tablet RxNorm: 994929 1-2 Tablet(s) PO Q6 as needed 06/02/2016 06/16/2016 Inactive Probiotic Blend 2 million cell-50 mg capsule RxNorm: 1 Capsule(s) PO BID 05/13/2016 05/19/2016 Inactive nitrofurantoin 100 mg capsule RxNorm: 667483 1 Capsule(s) PO BID 05/13/2016 05/19/2016 Inactive nitrofurantoin 100 mg capsule RxNorm: 106004 1 Capsule(s) PO BID 05/13/2016 05/12/2016 Inactive fentanyl 75 mcg/hr transdermal patch RxNorm: 111243 1 Patch TD Q72H 05/13/2016 06/04/2016 Inactive Keflex 500 mg capsule RxNorm: 913730 1 Capsule(s) PO TID 05/07/2016 05/13/2016 Inactive Patient at [facility] Keflex 500 mg capsule RxNorm: 634285 1 Capsule(s) PO TID 05/07/2016 05/06/2016 Inactive hydrocodone 10 mg-acetaminophen 325 mg tablet RxNorm: 171292 1-2 Tablet(s) PO Q6 as needed 05/04/2016 06/01/2016 Inactive hydrochlorothiazide 25 mg tablet RxNorm: 893407 Tablet(s) GIVE 1 TABLET VIA PEG TUBE ONCE A DAY 04/29/2016 11/24/2016 Active hydrochlorothiazide 25 mg tablet RxNorm: 952220 GIVE 1 TABLET VIA PEG TUBE ONCE A DAY 04/22/2016 04/28/2016 Inactive Generic For:HYDRODIURIL 25 MG TABLET refill request fentanyl 75 mcg/hr transdermal patch RxNorm: 787286 1 Patch TD Q72H 04/17/2016 05/12/2016 Inactive Xarelto 20 mg tablet RxNorm: 2082144 TAKE 1 TABLET VIA PEG TUBE AT BEDTIME 04/16/2016 06/14/2016 Inactive 04/16/2016 9:08:52 AM citalopram 40 mg tablet RxNorm: 865993 1 Tablet(s) PO daily 04/02/2016 02/25/2017 Active citalopram 40 mg tablet RxNorm: 968510 1 Tablet(s) PO daily 03/27/2016 04/01/2016 Inactive hydrocodone 10 mg-acetaminophen 325 mg tablet RxNorm: 095414 1-2 Tablet(s) PO Q6 as needed 03/27/2016 04/25/2016 Inactive fentanyl 75 mcg/hr transdermal patch RxNorm: 005494 1 Patch TD Q72H 03/18/2016 04/16/2016 Inactive hydrocodone 10 mg-acetaminophen 325 mg tablet RxNorm: 253050 1-2 Tablet(s) PO Q6 as needed 03/11/2016 03/26/2016 Inactive citalopram 40 mg tablet RxNorm: 718692 1 Tablet(s) PO daily 03/04/2016 03/26/2016 Inactive Levemir FlexTouch 100 unit/mL (3 mL) subcutaneous insulin pen RxNorm: 479303 20 Unit(s) SQ BID 03/02/2016 09/27/2016 Inactive lisinopril 20 mg tablet RxNorm: 279209 1 Tablet(s) PO daily 02/25/2016 07/01/2016 Inactive Ativan 0.5 mg tablet RxNorm: 667660 1 Tablet(s) PO Q4H as needed 02/18/2016 No Stop Date Active Xarelto 20 mg tablet RxNorm: 6899936 TAKE 1 TABLET VIA PEG TUBE AT BEDTIME 02/12/2016 04/11/2016 Inactive 02/12/2016 9:08:22 AM hydrocodone 10 mg-acetaminophen 325 mg tablet RxNorm: 670787 1-2 Tablet(s) PO Q6 as needed 02/12/2016 03/10/2016 Inactive fentanyl 75 mcg/hr transdermal patch RxNorm: 712711 1 Patch TD Q72H 02/11/2016 03/11/2016 Inactive citalopram 20 mg tablet RxNorm: 907034 1 Tablet(s) PO daily 01/28/2016 03/03/2016 Inactive fentanyl 75 mcg/hr transdermal patch RxNorm: 566851 1 TD Q72H 01/17/2016 02/10/2016 Inactive hydrocodone 10 mg-acetaminophen 325 mg tablet RxNorm: 291301 1-2 Tablet(s) PO Q6 as needed 01/07/2016 02/05/2016 Inactive fentanyl 50 mcg/hr transdermal patch RxNorm: 499388 1 TD Q72H 01/01/2016 01/16/2016 Inactive fentanyl 50 mcg/hr transdermal patch RxNorm: 587568 1 TD q 3 days 12/26/2015 12/31/2015 Inactive Xarelto 20 mg tablet RxNorm: 5340822 TAKE 1 TABLET VIA PEG TUBE AT BEDTIME 12/17/2015 02/11/2016 Inactive 12/16/2015 3:27:57 PM12/14/2015 9:45:17 AM hydrocodone 10 mg-acetaminophen 325 mg tablet RxNorm: 783716 1-2 Tablet(s) PO Q6 as needed 12/06/2015 01/04/2016 Inactive fentanyl 50 mcg/hr transdermal patch RxNorm: 897888 1 TD q 3 days 12/06/2015 12/25/2015 Inactive fentanyl 25 mcg/hr transdermal patch RxNorm: 437353 1 TD q 3 days 11/18/2015 12/05/2015 Inactive Zithromax Z-Eliu 250 mg tablet RxNorm: 787190 1 Tablet(s) PO UD 10/09/2015 02/26/2016 Inactive z pack as directed- please write out instructions- pt at [facility] nystatin 100,000 unit/gram topical powder RxNorm: 910269 APPLY TO UNDER BREASTS TWICE DAILY FOR YEAST SKIN INFECTION AND APPLY TO UNDERARM AND ABDOMINAL FOLDS AND PERIAREA TWICE DAILY 10/07/2015 12/05/2015 Inactive Generic For:MYCOSTATIN 100,000 UNITS/GM PW 10/05/2015 12:07:35 PM fentanyl 25 mcg/hr transdermal patch RxNorm: 461934 1 TD q 3 days 10/03/2015 11/01/2015 Inactive fentanyl 25 mcg/hr transdermal patch RxNorm: 220130 1 TD q 3 days 09/27/2015 10/02/2015 Inactive fentanyl 25 mcg/hr transdermal patch RxNorm: 203794 1 TD q 3 days 09/17/2015 09/26/2015 Inactive fentanyl 25 mcg/hr transdermal patch RxNorm: 216263 1 TD q 3 days 08/30/2015 09/16/2015 Inactive hydrocodone 5 mg-acetaminophen 325 mg tablet RxNorm: 587412 1 Tablet(s) PO Q6 as needed 08/30/2015 09/28/2015 Inactive Diflucan 100 mg tablet RxNorm: 261449 1 Tablet(s) Miscellaneous per peg daily 07/29/2015 08/04/2015 Inactive fentanyl 25 mcg/hr transdermal patch RxNorm: 679008 1 TD q 3 days 07/18/2015 08/29/2015 Inactive hydrocodone 5 mg-acetaminophen 325 mg tablet RxNorm: 150825 1 Tablet(s) PO Q6 as needed 07/18/2015 08/29/2015 Inactive Diflucan 100 mg tablet RxNorm: 083159 1 Tablet(s) Miscellaneous per peg daily 06/17/2015 06/23/2015 Inactive pravastatin 40 mg tablet RxNorm: 445094 Tablet(s) PO daily No Start Date Active baclofen 10 mg tablet RxNorm: 846000 1 Tablet(s) PO TID No Start Date 09/30/2016 Inactive Ativan 0.5 mg tablet RxNorm: 627747 1 Tablet(s) PO Q4H as needed No Start Date 02/17/2016 Inactive ranitidine 150 mg tablet RxNorm: 088959 1 Tablet(s) PO daily No Start Date 08/24/2016 Inactive carvedilol 3.125 mg tablet RxNorm: 113098 1 Tablet(s) PO daily No Start Date 09/29/2016 Inactive citalopram 40 mg tablet RxNorm: 776254 1 Tablet(s) PO daily No Start Date 01/27/2016 Inactive Probiotic Blend oral RxNorm: oral No Start Date 05/12/2016 Inactive hydrochlorothiazide 25 mg tablet RxNorm: 798800 1 Tablet(s) PO daily No Start Date 04/21/2016 Inactive Levemir FlexTouch 100 unit/mL (3 mL) subcutaneous insulin pen RxNorm: 631156 10 Unit(s) SQ BID No Start Date 03/01/2016 Inactive Zithromax Z-Eliu 250 mg tablet RxNorm: 930297 1 Tablet(s) PO UD No Start Date 10/08/2015 Inactive z pack as directed- please write out instructions- pt at [facility] nystatin 100,000 unit/gram topical powder RxNorm: 989182 Gram(s) TOP BID as needed No Start Date 10/06/2015 Inactive Xarelto 20 mg tablet RxNorm: 3165472 1 Tablet(s) PO daily No Start Date 12/16/2015 Inactive fentanyl 25 mcg/hr transdermal patch RxNorm: 018178 1 TD q 3 days No Start Date 07/17/2015 Inactive lisinopril 20 mg tablet RxNorm: 494236 1 Tablet(s) PO daily No Start Date 02/24/2016 Inactive hydrocodone 5 mg-acetaminophen 325 mg tablet RxNorm: 496741 1 Tablet(s) PO Q6 as needed No Start Date 07/17/2015 Inactive citalopram 40 mg tablet RxNorm: 537385 1 Tablet(s) PO daily No Start Date 03/03/2016 Inactive hyoscyamine 0.125 mg disintegrating tablet RxNorm: 1416178 1-2 Tablet(s) PO Q8 as needed No Start Date 09/06/2016 Inactive Medication Administered No Medication Administered data Immunizations No Immunization data Assessments Condition Codes Effective Dates Urinary tract infection, site not specified ICD-10: N39.0 ICD-9: 599.0 09/17/2016 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 ICD-9: 438.82 07/18/2015 Impacted cerumen, right ear ICD-10: H61.21 ICD-9: 389.8 07/18/2015 Cervicalgia ICD-10: M54.2 ICD-9: 723.1 07/18/2015 Essential (primary) hypertension ICD-10: I10 ICD-9: 401.9 07/18/2015 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 ICD-9: V44.1 06/17/2015 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 ICD-9: 438.13 06/17/2015 Type 2 diabetes mellitus with hyperglycemia ICD-10: E11.65 ICD-9: 250.02 06/17/2015 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 ICD-9: 438.84 06/17/2015 Candidal esophagitis ICD-10: B37.81 ICD-9: 112.84 06/17/2015 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 ICD-9: 438.81 06/17/2015 Reason For Visit Reason For Visit Effective Dates Notes earache 07/18/2015 hypertension 06/17/2015 Results Observation Observation Code Item Item Code Result Date Culture Urine [id number] URINE CULTURE SEE NOTES 09/21/2016 Culture Urine [id number] Continued Results 09/21/2016 Urine Culture Ucult Complete [...] 41.3 % 07/30/2016 Cbc With Differential Ord2 [place]% 7.2 % 07/30/2016 Cbc With Differential Ord2 [...] 2.69 K/ul 07/30/2016 Cbc With Differential Ord2 [place] ABS# 0.5 K/ul 07/30/2016 Cbc With Differential Ord2 Eos ABS# 0.5 K/ul 07/30/2016 Cbc With Differential Ord2 Baso ABS# 0.0 K/ul 07/30/2016 Comp Metabolic Ahn052 NA 141 mEq/L 07/30/2016 Comp Metabolic Ruc730 K 4.3 mEq/L 07/30/2016 Comp Metabolic Uxh194 CL 100 mEq/L 07/30/2016 Comp Metabolic Azn886 CO2 33.0 mEq/L 07/30/2016 Comp Metabolic Eqw882 ANION GAP 12 07/30/2016 Comp Metabolic Fhd102 GLUCOSE 64 mg/dL 07/30/2016 Comp Metabolic Ipw705 Creat 0.5 mg/dL 07/30/2016 Comp Metabolic Hoa318 eGFR 126 ml/min/1.73m2 07/30/2016 Comp Metabolic Oic526 BUN 25 mg/dL 07/30/2016 Comp Metabolic Ubc423 B/C Ratio 48.1 Ratio 07/30/2016 Comp Metabolic Gbr769 CALCIUM 8.9 mg/dL 07/30/2016 Comp Metabolic Grf941 ALK PHOS 90 U/L 07/30/2016 Comp Metabolic Mgm077 AST(SGOT) 22 U/L 07/30/2016 Comp Metabolic Dpe358 ALT(SGPT) 36 U/L 07/30/2016 Comp Metabolic Xsz715 BILI T 0.3 mg/dL 07/30/2016 Comp Metabolic Dyl038 ALBUMIN 3.4 g/dL 07/30/2016 Comp Metabolic Gty174 TPRO 6.0 g/dL 07/30/2016 Comp Metabolic Vha756 GLOB 2.7 g/dL 07/30/2016 Comp Metabolic Cui584 A/G Ratio 1.3 Ratio 07/30/2016 Comp Metabolic Wta920 Osmo 284 mOsmo 07/30/2016 A1C Frequency Ozx263 A1CF 90981-5 Last [place] [facility] [place]: 05-12-2016 07/30/2016 %Hba1C Wzg823 % HbA1c 01705- 6 5.2 % 05/12/2016 %Hba1C Jlf443 Gluc Ave 103 mg/dL 05/12/2016 Culture Urine [id number] URINE CULTURE SEE NOTES 05/11/2016 Urine Culture [...] Urinalysis Ord28 U-Yeast NEGATIVE 05/06/2016 Culture Urine [id number] URINE CULTURE SEE NOTES 03/17/2016 Culture Urine [id number] Continued Results 03/17/2016 Urine Culture Ucult Complete [...] 32.0 pg 02/11/2016 Cbc With Differential Ord2 [place]% 9.1 % 02/11/2016 Cbc With Differential Ord2 [...] 2.59 K/ul 02/11/2016 Cbc With Differential Ord2 [place] ABS# 0.6 K/ul 02/11/2016 Cbc With Differential Ord2 Eos ABS# 0.3 K/ul 02/11/2016 Cbc With Differential Ord2 Baso ABS# 0.0 K/ul 02/11/2016 Comp Metabolic Ofm465 NA 137 mEq/L 02/11/2016 Comp Metabolic Qyv101 K 4.4 mEq/L 02/11/2016 Comp Metabolic Erq645 CL 100 mEq/L 02/11/2016 Comp Metabolic Kvp133 CO2 25.0 mEq/L 02/11/2016 Comp Metabolic Khk011 ANION GAP 16 02/11/2016 Comp Metabolic Cqw534 GLUCOSE 99 mg/dL 02/11/2016 Comp Metabolic Cot372 Creat 0.6 mg/dL 02/11/2016 Comp Metabolic Jll402 eGFR 99 ml/min/1.73m2 02/11/2016 Comp Metabolic Kuw069 BUN 27 mg/dL 02/11/2016 Comp Metabolic Iqe279 B/C Ratio 42.2 Ratio 02/11/2016 Comp Metabolic Azx804 CALCIUM 9.2 mg/dL 02/11/2016 Comp Metabolic Wlp087 ALK PHOS 74 U/L 02/11/2016 Comp Metabolic Wai840 AST(SGOT) 24 U/L 02/11/2016 Comp Metabolic Plc956 ALT(SGPT) 26 U/L 02/11/2016 Comp Metabolic Aeg054 BILI T 0.5 mg/dL 02/11/2016 Comp Metabolic Mxm134 ALBUMIN 3.5 g/dL 02/11/2016 Comp Metabolic Flj135 TPRO 6.2 g/dL 02/11/2016 Comp Metabolic Ivl875 GLOB 2.7 g/dL 02/11/2016 Comp Metabolic Mtd315 A/G Ratio 1.3 Ratio 02/11/2016 Comp Metabolic Qzx887 Osmo 279 mOsmo 02/11/2016 Review of Systems System Result Effective Dates Constitutional No recent illness 07/18/2015 Constitutional No [...] Date PRESCRIP TRANSMIT VIA ERX SY CPT-4: [id number] 06/17/2015 Vital Signs Date Vital 07/18/2015 Blood Pressure 1: 128/86 Code: 8480-6 BMI: 31.4 Code: 46733-2 Heart Rate 1: 72 bpm Height: 5'1" Weight: 166 lbs 06/17/2015 Blood Pressure 1: 110/78 Code: 8480-6 BMI: 33.3 Code: 14690-4 Heart Rate 1: 74 bpm Height: 5'1" SpO2: 92% Weight: 176 lbs Functional Status No Functional Status data History of Present Illness Symptom Name Status Result Effective Date Notes earache Location right ear 07/18/2015 None earache [...] Encounters Encounter Performer Location Codes Date () 05819 EST. 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] Diagnosis: Impacted cerumen, right ear[ICD10: H61.21] Diagnosis: Cervicalgia[ICD10: M54.2] [facility] CPT-4: 92790 07/18/2015 ([id number]) OFFICE/OUTPATIENT VISIT NEW Diagnosis: Essential (primary) hypertension[ICD10: I10] Diagnosis: Type 2 diabetes mellitus with hyperglycemia[ICD10: E11.65] Diagnosis: Apraxia following cerebral infarction[ICD10: I69.390] Diagnosis: Ataxia following cerebral infarction[ICD10: I69.393] Diagnosis: 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] Diagnosis: Dysphagia following cerebral infarction[ICD10: I69.391] 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] Diagnosis: Candidal esophagitis[ICD10: B37.81] [facility] CPT- 4: 14026 06/17/2015 Plan of Care Planned Activity Notes Codes Status Date Patient Education: Patient Medication Summary Completed 09/17/2016 Care Plan: Urine Culture Pending 09/17/2016 Visit Plan: Hypertension - well controlled - continue with current medications, continue with no added salt diet. Pt has been encouraged to exercise daily.The pt has been advised to call the office if there are any acute concerns about change in blood pressure readings at home.Dysphagia-on tube feedings-weight loss of 10# in 1 month-Dr Everett in to evaluate patient-add 1 scoop of protein powder to 2 feedings/day. Follow up weight in 1 month Neck kfxu-gskgqrfyzvy-Dsez PT focus neck/upper body Right earache-cerumen removed with water pick today in the office 07/18/2015 Appointment: (30 min) Complex 07/18/2015 Patient Education: Patient Medication Summary Completed 07/18/2015 Patient Education: Obesity Completed 07/18/2015 Patient Education: .Cervicalgia Neck Pain Completed 07/18/2015 [facility] [phone] [id number] Ref[facility] Completed 06/25/2015 Visit Plan: Hypertension - well controlled - continue with current medications, continue with no added salt diet. Pt has been encouraged to exercise daily.The pt has been advised to call the office if there are any acute concerns about change in blood pressure readings at home.Hyperlipidemia - pt has been counseled about appropriate [...] and to assure normal liver response to medications.referral to [facility] for post stroke - left sided weakness, neck stiffness, upper extremity weaknessDiabetes Mellitus - controlled - per family report - check labs this week, get report from and [facility].I spent over an hour with the patient in direct contact. 06/17/2015 [facility]ment[facility] [phone] [facility] New Patient 06/17/2015 Patient Education: Patient Medication Summary Completed 06/17/2015 Patient Education: Obesity Completed 06/17/2015 Patient Education: Hypertension Completed 06/17/2015 Care Plan: Referral Order SNOMED-CT : [id number] Ordered 06/17/2015 [facility] [place] Ref[facility] Appointment Requested Instructions Comment . Hypertension [...] labs this week, get report from and [facility]. I spent over an hour with the patient in direct contact. Add 1 scoop of whey protein from [...] Follow up weight in 1 month Neck mqsg-eqwpckviuxp-Ynuj PT focus neck/upper body Right earache-cerumen removed with water pick today in the office
--- OUTSIDE RECORDS SUMMARY | 2018-08-09 10:36 | XMS REPORT | CCD ---
Author Author [facility] Organization [facility] Address [address] [place] [address] Phone Care Team Providers Care Director Of Career Services Name Role Phone PP Unavailable CCM Unavailable Summary Purpose Interface Exchange Insurance Providers Payer name Policy type / Coverage type Covered republican ID Effective Begin Date Effective End Date WPS Medicare Part B Medicare Part B [id number] Unknown Unknown [employer] Medicare Part B [id number] Unknown Unknown Family history Father Diagnosis Age [...] Unknown Retired 06/17/[address]: 6765752 Quit over 10 years ago 15+ 06/17/[address]: 583073955 Never drinks alcohol 06/17/2015 Allergies, Adverse Reactions, [...] Fill Instructions baclofen 10 mg tablet RxNorm: 468408 TAKE 1 TABLET THREE TIMES DAILY VIA STOMACH TUBE 10/01/2016 11/14/2016 Active 10/01/2016 9:24:37 AM carvedilol 3.125 mg tablet RxNorm: 237598 GIVE 1 TABLET VIA PEG TUBE 2 TIMES A DAY 09/30/2016 12/28/2016 Active Generic For:COREG 3.125MG 09/30/2016 1:12:28 PM09/25/2016 9:06:11 AM Probiotic Blend 2 million cell-50 mg capsule RxNorm: 1 Capsule(s) PO BID 09/17/2016 09/23/2016 Inactive Keflex 500 mg capsule RxNorm: 654639 1 Capsule(s) PO TID 09/17/2016 09/23/2016 Inactive hyoscyamine 0.125 mg/5 mL oral elixir RxNorm: 9840435 5 Milliliter(s) PO TID 09/08/2016 09/17/2016 Inactive hyoscyamine 0.125 mg/5 mL oral elixir RxNorm: 8632872 5 Milliliter(s) PO TID 09/08/2016 09/07/2016 Inactive hyoscyamine 0.125 mg disintegrating tablet RxNorm: 4158813 1-2 Tablet(s) PO Q8 as needed 09/07/2016 01/04/2017 Active fentanyl 100 mcg/hr transdermal patch RxNorm: 161271 1 Patch TD Q72H 09/01/2016 09/30/2016 Inactive ranitidine 150 mg tablet RxNorm: 612724 1 Tablet(s) PO BID 08/25/2016 No Stop Date Active hydrocodone 10 mg-acetaminophen 325 mg tablet RxNorm: 027783 1 Tablet(s) PO scheduled BID et Q6 hours as needed 08/24/2016 09/22/2016 Inactive cyanocobalamin (vit B-12) 1,000 mcg tablet RxNorm: 632479 1 Tablet(s) PO daily 08/12/2016 11/09/2016 Active cyanocobalamin (vit B-12) 1,000 mcg tablet RxNorm: 628183 1 Tablet(s) PO daily 08/12/2016 08/11/2016 Inactive hydrocodone 10 mg-acetaminophen 325 mg tablet RxNorm: 988109 1-2 Tablet(s) PO Q6 as needed 08/03/2016 08/17/2016 Inactive fentanyl 100 mcg/hr transdermal patch RxNorm: 581927 1 Patch TD Q72H 08/03/2016 08/31/2016 Inactive nystatin 100,000 unit/gram topical powder RxNorm: 427289 APPLY UNDER BREASTS TWICE DAILY FOR YEAST SKIN INFECTION AND APPLY TO UNDERARM AND ABDOMINAL FOLDS AND PERIAREA TWICE DAILY 07/17/2016 09/14/2016 Inactive 07/17/2016 3:56:54 PM fentanyl 100 mcg/hr transdermal patch RxNorm: 016871 1 Patch TD Q72H 07/15/2016 08/02/2016 Inactive lisinopril 20 mg tablet RxNorm: 188548 1 Tablet(s) PO daily 07/02/2016 03/28/2017 Active hydrocodone 10 mg-acetaminophen 325 mg tablet RxNorm: 373213 1-2 Tablet(s) PO Q6 as needed 07/01/2016 07/15/2016 Inactive Xarelto 20 mg tablet RxNorm: 8373702 Tablet(s) TAKE 1 TABLET VIA PEG TUBE AT BEDTIME 06/19/2016 01/14/2017 Active fentanyl 100 mcg/hr transdermal patch RxNorm: 695508 1 Patch TD Q72H 06/17/2016 07/14/2016 Inactive nystatin 100,000 unit/gram topical powder RxNorm: 771747 APPLY TO UNDER BREASTS TWICE DAILY FOR YEAST SKIN INFECTION AND APPLY TO UNDERARM AND ABDOMINAL FOLDS AND PERIAREA TWICE DAILY 06/15/2016 07/16/2016 Inactive Generic For:MYCOSTATIN 100,000 UNITS/GM PW 06/15/2016 12:28:26 PM fentanyl 100 mcg/hr transdermal patch RxNorm: 583104 1 Patch TD Q72H 06/05/2016 06/16/2016 Inactive hydrocodone 10 mg-acetaminophen 325 mg tablet RxNorm: 256309 1-2 Tablet(s) PO Q6 as needed 06/02/2016 06/16/2016 Inactive Probiotic Blend 2 million cell-50 mg capsule RxNorm: 1 Capsule(s) PO BID 05/13/2016 05/19/2016 Inactive nitrofurantoin 100 mg capsule RxNorm: 640199 1 Capsule(s) PO BID 05/13/2016 05/19/2016 Inactive nitrofurantoin 100 mg capsule RxNorm: 955840 1 Capsule(s) PO BID 05/13/2016 05/12/2016 Inactive fentanyl 75 mcg/hr transdermal patch RxNorm: 433914 1 Patch TD Q72H 05/13/2016 06/04/2016 Inactive Keflex 500 mg capsule RxNorm: 740624 1 Capsule(s) PO TID 05/07/2016 05/13/2016 Inactive Patient at [facility] Keflex 500 mg capsule RxNorm: 881320 1 Capsule(s) PO TID 05/07/2016 05/06/2016 Inactive hydrocodone 10 mg-acetaminophen 325 mg tablet RxNorm: 740404 1-2 Tablet(s) PO Q6 as needed 05/04/2016 06/01/2016 Inactive hydrochlorothiazide 25 mg tablet RxNorm: 484185 Tablet(s) GIVE 1 TABLET VIA PEG TUBE ONCE A DAY 04/29/2016 11/24/2016 Active hydrochlorothiazide 25 mg tablet RxNorm: 744531 GIVE 1 TABLET VIA PEG TUBE ONCE A DAY 04/22/2016 04/28/2016 Inactive Generic For:HYDRODIURIL 25 MG TABLET refill request fentanyl 75 mcg/hr transdermal patch RxNorm: 024467 1 Patch TD Q72H 04/17/2016 05/12/2016 Inactive Xarelto 20 mg tablet RxNorm: 2958197 TAKE 1 TABLET VIA PEG TUBE AT BEDTIME 04/16/2016 06/14/2016 Inactive 04/16/2016 9:08:52 AM citalopram 40 mg tablet RxNorm: 533291 1 Tablet(s) PO daily 04/02/2016 02/25/2017 Active citalopram 40 mg tablet RxNorm: 297333 1 Tablet(s) PO daily 03/27/2016 04/01/2016 Inactive hydrocodone 10 mg-acetaminophen 325 mg tablet RxNorm: 473712 1-2 Tablet(s) PO Q6 as needed 03/27/2016 04/25/2016 Inactive fentanyl 75 mcg/hr transdermal patch RxNorm: 688514 1 Patch TD Q72H 03/18/2016 04/16/2016 Inactive hydrocodone 10 mg-acetaminophen 325 mg tablet RxNorm: 497581 1-2 Tablet(s) PO Q6 as needed 03/11/2016 03/26/2016 Inactive citalopram 40 mg tablet RxNorm: 969231 1 Tablet(s) PO daily 03/04/2016 03/26/2016 Inactive Levemir FlexTouch 100 unit/mL (3 mL) subcutaneous insulin pen RxNorm: 804019 20 Unit(s) SQ BID 03/02/2016 09/27/2016 Inactive lisinopril 20 mg tablet RxNorm: 864148 1 Tablet(s) PO daily 02/25/2016 07/01/2016 Inactive Ativan 0.5 mg tablet RxNorm: 631389 1 Tablet(s) PO Q4H as needed 02/18/2016 No Stop Date Active Xarelto 20 mg tablet RxNorm: 1116850 TAKE 1 TABLET VIA PEG TUBE AT BEDTIME 02/12/2016 04/11/2016 Inactive 02/12/2016 9:08:22 AM hydrocodone 10 mg-acetaminophen 325 mg tablet RxNorm: 569230 1-2 Tablet(s) PO Q6 as needed 02/12/2016 03/10/2016 Inactive fentanyl 75 mcg/hr transdermal patch RxNorm: 843461 1 Patch TD Q72H 02/11/2016 03/11/2016 Inactive citalopram 20 mg tablet RxNorm: 443327 1 Tablet(s) PO daily 01/28/2016 03/03/2016 Inactive fentanyl 75 mcg/hr transdermal patch RxNorm: 119284 1 TD Q72H 01/17/2016 02/10/2016 Inactive hydrocodone 10 mg-acetaminophen 325 mg tablet RxNorm: 109214 1-2 Tablet(s) PO Q6 as needed 01/07/2016 02/05/2016 Inactive fentanyl 50 mcg/hr transdermal patch RxNorm: 566634 1 TD Q72H 01/01/2016 01/16/2016 Inactive fentanyl 50 mcg/hr transdermal patch RxNorm: 414291 1 TD q 3 days 12/26/2015 12/31/2015 Inactive Xarelto 20 mg tablet RxNorm: 6737925 TAKE 1 TABLET VIA PEG TUBE AT BEDTIME 12/17/2015 02/11/2016 Inactive 12/16/2015 3:27:57 PM12/14/2015 9:45:17 AM hydrocodone 10 mg-acetaminophen 325 mg tablet RxNorm: 501302 1-2 Tablet(s) PO Q6 as needed 12/06/2015 01/04/2016 Inactive fentanyl 50 mcg/hr transdermal patch RxNorm: 995854 1 TD q 3 days 12/06/2015 12/25/2015 Inactive fentanyl 25 mcg/hr transdermal patch RxNorm: 090438 1 TD q 3 days 11/18/2015 12/05/2015 Inactive Zithromax Z-Eliu 250 mg tablet RxNorm: 762158 1 Tablet(s) PO UD 10/09/2015 02/26/2016 Inactive z pack as directed- please write out instructions- pt at [facility] nystatin 100,000 unit/gram topical powder RxNorm: 252238 APPLY TO UNDER BREASTS TWICE DAILY FOR YEAST SKIN INFECTION AND APPLY TO UNDERARM AND ABDOMINAL FOLDS AND PERIAREA TWICE DAILY 10/07/2015 12/05/2015 Inactive Generic For:MYCOSTATIN 100,000 UNITS/GM PW 10/05/2015 12:07:35 PM fentanyl 25 mcg/hr transdermal patch RxNorm: 143847 1 TD q 3 days 10/03/2015 11/01/2015 Inactive fentanyl 25 mcg/hr transdermal patch RxNorm: 348223 1 TD q 3 days 09/27/2015 10/02/2015 Inactive fentanyl 25 mcg/hr transdermal patch RxNorm: 790560 1 TD q 3 days 09/17/2015 09/26/2015 Inactive fentanyl 25 mcg/hr transdermal patch RxNorm: 414593 1 TD q 3 days 08/30/2015 09/16/2015 Inactive hydrocodone 5 mg-acetaminophen 325 mg tablet RxNorm: 637610 1 Tablet(s) PO Q6 as needed 08/30/2015 09/28/2015 Inactive Diflucan 100 mg tablet RxNorm: 355038 1 Tablet(s) Miscellaneous per peg daily 07/29/2015 08/04/2015 Inactive fentanyl 25 mcg/hr transdermal patch RxNorm: 006440 1 TD q 3 days 07/18/2015 08/29/2015 Inactive hydrocodone 5 mg-acetaminophen 325 mg tablet RxNorm: 653585 1 Tablet(s) PO Q6 as needed 07/18/2015 08/29/2015 Inactive Diflucan 100 mg tablet RxNorm: 503359 1 Tablet(s) Miscellaneous per peg daily 06/17/2015 06/23/2015 Inactive pravastatin 40 mg tablet RxNorm: 459549 Tablet(s) PO daily No Start Date Active baclofen 10 mg tablet RxNorm: 168290 1 Tablet(s) PO TID No Start Date 09/30/2016 Inactive Ativan 0.5 mg tablet RxNorm: 826369 1 Tablet(s) PO Q4H as needed No Start Date 02/17/2016 Inactive ranitidine 150 mg tablet RxNorm: 630868 1 Tablet(s) PO daily No Start Date 08/24/2016 Inactive carvedilol 3.125 mg tablet RxNorm: 053188 1 Tablet(s) PO daily No Start Date 09/29/2016 Inactive citalopram 40 mg tablet RxNorm: 444246 1 Tablet(s) PO daily No Start Date 01/27/2016 Inactive Probiotic Blend oral RxNorm: oral No Start Date 05/12/2016 Inactive hydrochlorothiazide 25 mg tablet RxNorm: 543389 1 Tablet(s) PO daily No Start Date 04/21/2016 Inactive Levemir FlexTouch 100 unit/mL (3 mL) subcutaneous insulin pen RxNorm: 546549 10 Unit(s) SQ BID No Start Date 03/01/2016 Inactive Zithromax Z-Eliu 250 mg tablet RxNorm: 707676 1 Tablet(s) PO UD No Start Date 10/08/2015 Inactive z pack as directed- please write out instructions- pt at [facility] nystatin 100,000 unit/gram topical powder RxNorm: 351040 Gram(s) TOP BID as needed No Start Date 10/06/2015 Inactive Xarelto 20 mg tablet RxNorm: 3982664 1 Tablet(s) PO daily No Start Date 12/16/2015 Inactive fentanyl 25 mcg/hr transdermal patch RxNorm: 039363 1 TD q 3 days No Start Date 07/17/2015 Inactive lisinopril 20 mg tablet RxNorm: 367968 1 Tablet(s) PO daily No Start Date 02/24/2016 Inactive hydrocodone 5 mg-acetaminophen 325 mg tablet RxNorm: 667575 1 Tablet(s) PO Q6 as needed No Start Date 07/17/2015 Inactive citalopram 40 mg tablet RxNorm: 966762 1 Tablet(s) PO daily No Start Date 03/03/2016 Inactive hyoscyamine 0.125 mg disintegrating tablet RxNorm: 4662295 1-2 Tablet(s) PO Q8 as needed No [...] (primary) hypertension ICD-10: I10 ICD-9: 401.9 07/18/2015 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 ICD-9: 438.13 06/17/2015 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 ICD-9: 438.84 06/17/2015 Candidal esophagitis ICD-10: B37.81 ICD-9: 112.84 06/17/2015 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 ICD-9: 438.81 06/17/2015 Type 2 diabetes mellitus with hyperglycemia ICD-10: E11.65 ICD-9: 250.02 06/17/2015 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 ICD-9: V44.1 06/17/2015 Reason For Visit Reason For Visit Effective Dates Notes earache 07/18/2015 hypertension 06/17/2015 Results Observation Observation Code Item Item Code Result Date Culture Urine [id number] URINE CULTURE SEE NOTES 09/21/2016 Culture Urine [id number] Continued Results 09/21/2016 Urine Culture Ucult Complete [...] 32.4 pg 07/30/2016 Cbc With Differential Ord2 [place]% 7.2 % 07/30/2016 Cbc With Differential Ord2 [...] 2.69 K/ul 07/30/2016 Cbc With Differential Ord2 [place] ABS# 0.5 K/ul 07/30/2016 Cbc With Differential Ord2 Eos ABS# 0.5 K/ul 07/30/2016 Cbc With Differential Ord2 Baso ABS# 0.0 K/ul 07/30/2016 Comp Metabolic Veb419 NA 141 mEq/L 07/30/2016 Comp Metabolic Kzl013 K 4.3 mEq/L 07/30/2016 Comp Metabolic Qgf126 CL 100 mEq/L 07/30/2016 Comp Metabolic Ymn641 CO2 33.0 mEq/L 07/30/2016 Comp Metabolic Cso660 ANION GAP 12 07/30/2016 Comp Metabolic Apj882 GLUCOSE 64 mg/dL 07/30/2016 Comp Metabolic Ttm124 Creat 0.5 mg/dL 07/30/2016 Comp Metabolic Xnd033 eGFR 126 ml/min/1.73m2 07/30/2016 Comp Metabolic Szl719 BUN 25 mg/dL 07/30/2016 Comp Metabolic Srv085 B/C Ratio 48.1 Ratio 07/30/2016 Comp Metabolic Gtk521 CALCIUM 8.9 mg/dL 07/30/2016 Comp Metabolic Pyt093 ALK PHOS 90 U/L 07/30/2016 Comp Metabolic Fyy545 AST(SGOT) 22 U/L 07/30/2016 Comp Metabolic Ulx000 ALT(SGPT) 36 U/L 07/30/2016 Comp Metabolic Ykg837 BILI T 0.3 mg/dL 07/30/2016 Comp Metabolic Loq687 ALBUMIN 3.4 g/dL 07/30/2016 Comp Metabolic Ois464 TPRO 6.0 g/dL 07/30/2016 Comp Metabolic Jfj034 GLOB 2.7 g/dL 07/30/2016 Comp Metabolic Dbp925 A/G Ratio 1.3 Ratio 07/30/2016 Comp Metabolic Ylj636 Osmo 284 mOsmo 07/30/2016 A1C Frequency Gwy633 A1CF 07662-6 [place] [facility] [place]: 05-12-2016 07/30/2016 %Hba1C Umr538 % HbA1c 32946- 6 5.2 % 05/12/2016 %Hba1C Jcc663 Gluc Ave 103 mg/dL 05/12/2016 Culture Urine [id number] URINE CULTURE SEE NOTES 05/11/2016 Urine Culture [...] U-Com Culture to follow 05/06/2016 Culture Urine [id number] URINE CULTURE SEE NOTES 03/17/2016 Culture Urine [id number] Continued Results 03/17/2016 Urine Culture Ucult Complete [...] 32.0 pg 02/11/2016 Cbc With Differential Ord2 [place]% 9.1 % 02/11/2016 Cbc With Differential Ord2 MCHC 31.6 pg 02/11/2016 Cbc With Differential Ord2 Eos% 4.9 % 02/11/2016 Cbc With Differential Ord2 Baso% 0.1 % 02/11/2016 Cbc With Differential Ord2 PLT 174 K/ul 02/11/2016 Cbc With Differential Ord2 RDW 12.5 % 02/11/2016 Cbc With Differential Ord2 Neut ABS# 3.14 K/ul 02/11/2016 Cbc With Differential Ord2 Lymph ABS# 2.59 K/ul 02/11/2016 Cbc With Differential Ord2 [place] ABS# 0.6 K/ul 02/11/2016 Cbc With Differential Ord2 Eos ABS# 0.3 K/ul 02/11/2016 Cbc With Differential Ord2 Baso ABS# 0.0 K/ul 02/11/2016 Comp Metabolic Vgz425 NA 137 mEq/L 02/11/2016 Comp Metabolic Lpw792 K 4.4 mEq/L 02/11/2016 Comp Metabolic Yzj967 CL 100 mEq/L 02/11/2016 Comp Metabolic Uav242 CO2 25.0 mEq/L 02/11/2016 Comp Metabolic Pnc373 ANION GAP 16 02/11/2016 Comp Metabolic Bdf709 GLUCOSE 99 mg/dL 02/11/2016 Comp Metabolic Qwf664 Creat 0.6 mg/dL 02/11/2016 Comp Metabolic Xtu491 eGFR 99 ml/min/1.73m2 02/11/2016 Comp Metabolic Tcm629 BUN 27 mg/dL 02/11/2016 Comp Metabolic Qxv049 B/C Ratio 42.2 Ratio 02/11/2016 Comp Metabolic Jkr390 CALCIUM 9.2 mg/dL 02/11/2016 Comp Metabolic Ayv407 ALK PHOS 74 U/L 02/11/2016 Comp Metabolic Nar926 AST(SGOT) 24 U/L 02/11/2016 Comp Metabolic Foq137 ALT(SGPT) 26 U/L 02/11/2016 Comp Metabolic Erl000 BILI T 0.5 mg/dL 02/11/2016 Comp Metabolic Dtu285 ALBUMIN 3.5 g/dL 02/11/2016 Comp Metabolic Bio816 TPRO 6.2 g/dL 02/11/2016 Comp Metabolic Ozs886 GLOB 2.7 g/dL 02/11/2016 Comp Metabolic Meb530 A/G Ratio 1.3 Ratio 02/11/2016 Comp Metabolic Luy499 Osmo 279 mOsmo 02/11/2016 Review of Systems [...] Date PRESCRIP TRANSMIT VIA ERX SY CPT-4: [id number] 06/17/2015 Vital Signs Date Vital 07/18/2015 Blood Pressure 1: 128/86 Code: 8480-6 BMI: 31.4 Code: 88563-8 Heart Rate 1: 72 bpm Height: 5'1" Weight: 166 lbs 06/17/2015 Blood Pressure 1: 110/78 Code: 8480-6 BMI: 33.3 Code: 85751-4 Heart Rate 1: 74 bpm Height: 5'1" [...] Encounters Encounter Performer Location Codes Date () 34133 EST. 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] Diagnosis: Ataxia following cerebral infarction[ICD10: I69.393] Diagnosis: 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] Diagnosis: Dysphagia following cerebral infarction[ICD10: I69.391] 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] Diagnosis: Candidal esophagitis[ICD10: B37.81] [facility] CPT- 4: 05116 06/17/2015 Plan of Care Planned Activity Notes [...] Follow up weight in 1 month Neck yben-ghhfvwyrfvf-Aisx PT focus neck/upper body Right earache-cerumen removed with water pick today in the office 07/18/2015 Appointment: (30 min) Complex 07/18/2015 Patient Education: Patient Medication Summary Completed 07/18/2015 Patient Education: Obesity Completed 07/18/2015 Patient Education: .Cervicalgia Neck Pain Completed 07/18/2015 [facility] [phone] [id number] [place] Referral Completed 06/25/2015 Visit Plan: Hypertension - [...] assure normal liver response to medications.[facility] - left sided weakness, neck stiffness, upper extremity weaknessDiabetes Mellitus - controlled - per family report - check labs this week, get report from and [facility].I spent over an hour with the patient in direct contact. 06/17/2015 Appointment: [facility] [phone] [id number] [place] New Patient 06/17/2015 Patient Education: Patient Medication Summary Completed 06/17/2015 Patient Education: Obesity Completed 06/17/2015 Patient Education: Hypertension Completed 06/17/2015 Care Plan: Referral Order SNOMED-CT : [id number] Ordered 06/17/2015 Ref[facility] [phone] [id number] [place] Referral Appointment Requested Instructions Comment . [...] liver response to medications. referral to [facility] occupational therapy for post stroke - left sided weakness, neck stiffness, upper extremity weakness Diabetes Mellitus - controlled - per family report - check labs this week, get report from and [facility]. I spent over an hour with the patient in direct contact. Add 1 scoop of whey protein from [facility] to 2 feedings per day . Hypertension [...] Follow up weight in 1 month Neck mwhb-egsjgkckvne-Vjtp PT focus neck/upper body Right earache-cerumen removed with water pick today in the office
--- OUTSIDE RECORDS SUMMARY | 2018-08-09 10:37 | XMS REPORT | CCD ---
Author Author [facility] Organization [facility] Address [address] [place] [address] Phone Care Team Providers Care Manganese Wheeler Name Role Phone PP Unavailable CCM Unavailable Summary Purpose Interface Exchange Insurance Providers Payer name Policy type / Coverage type Covered constitution party ID Effective Begin Date Effective End Date WPS Medicare Part B Medicare Part B [id number] Unknown Unknown [facility] [employer] Insurance Medicare Part B [id number] Unknown Unknown Family history Father Diagnosis Age [...] Unknown Retired 06/17/[address]: 7076624 Quit over 10 years ago 15+ 06/17/[address]: 138173366 Never drinks alcohol 06/17/2015 Allergies, Adverse Reactions, [...] Start Date Stop Date Status Fill Instructions carvedilol 3.125 mg tablet RxNorm: 987479 GIVE 1 TABLET VIA PEG TUBE 2 TIMES A DAY 09/30/2016 12/28/2016 Active Generic For:COREG 3.125MG 09/30/2016 1:12:28 PM09/25/2016 9:06:11 AM Probiotic Blend 2 million cell-50 mg capsule RxNorm: 1 Capsule(s) PO BID 09/17/2016 09/23/2016 Inactive Keflex 500 mg capsule RxNorm: 683785 1 Capsule(s) PO TID 09/17/2016 09/23/2016 Inactive hyoscyamine 0.125 mg/5 mL oral elixir RxNorm: 2452529 5 Milliliter(s) PO TID 09/08/2016 09/17/2016 Inactive hyoscyamine 0.125 mg/5 mL oral elixir RxNorm: 2025204 5 Milliliter(s) PO TID 09/08/2016 09/07/2016 Inactive hyoscyamine 0.125 mg disintegrating tablet RxNorm: 8347178 1-2 Tablet(s) PO Q8 as needed 09/07/2016 01/04/2017 Active fentanyl 100 mcg/hr transdermal patch RxNorm: 602713 1 Patch TD Q72H 09/01/2016 09/30/2016 Inactive ranitidine 150 mg tablet RxNorm: 135909 1 Tablet(s) PO BID 08/25/2016 No Stop Date Active hydrocodone 10 mg-acetaminophen 325 mg tablet RxNorm: 292852 1 Tablet(s) PO scheduled BID et Q6 hours as needed 08/24/2016 09/22/2016 Inactive cyanocobalamin (vit B-12) 1,000 mcg tablet RxNorm: 459233 1 Tablet(s) PO daily 08/12/2016 11/09/2016 Active cyanocobalamin (vit B-12) 1,000 mcg tablet RxNorm: 393554 1 Tablet(s) PO daily 08/12/2016 08/11/2016 Inactive hydrocodone 10 mg-acetaminophen 325 mg tablet RxNorm: 672515 1-2 Tablet(s) PO Q6 as needed 08/03/2016 08/17/2016 Inactive fentanyl 100 mcg/hr transdermal patch RxNorm: 607670 1 Patch TD Q72H 08/03/2016 08/31/2016 Inactive nystatin 100,000 unit/gram topical powder RxNorm: 057815 APPLY UNDER BREASTS TWICE DAILY FOR YEAST SKIN INFECTION AND APPLY TO UNDERARM AND ABDOMINAL FOLDS AND PERIAREA TWICE DAILY 07/17/2016 09/14/2016 Inactive 07/17/2016 3:56:54 PM fentanyl 100 mcg/hr transdermal patch RxNorm: 938403 1 Patch TD Q72H 07/15/2016 08/02/2016 Inactive lisinopril 20 mg tablet RxNorm: 353370 1 Tablet(s) PO daily 07/02/2016 03/28/2017 Active hydrocodone 10 mg-acetaminophen 325 mg tablet RxNorm: 028043 1-2 Tablet(s) PO Q6 as needed 07/01/2016 07/15/2016 Inactive Xarelto 20 mg tablet RxNorm: 9963271 Tablet(s) TAKE 1 TABLET VIA PEG TUBE AT BEDTIME 06/19/2016 01/14/2017 Active fentanyl 100 mcg/hr transdermal patch RxNorm: 904076 1 Patch TD Q72H 06/17/2016 07/14/2016 Inactive nystatin 100,000 unit/gram topical powder RxNorm: 631340 APPLY TO UNDER BREASTS TWICE DAILY FOR YEAST SKIN INFECTION AND APPLY TO UNDERARM AND ABDOMINAL FOLDS AND PERIAREA TWICE DAILY 06/15/2016 07/16/2016 Inactive Generic For:MYCOSTATIN 100,000 UNITS/GM PW 06/15/2016 12:28:26 PM fentanyl 100 mcg/hr transdermal patch RxNorm: 184276 1 Patch TD Q72H 06/05/2016 06/16/2016 Inactive hydrocodone 10 mg-acetaminophen 325 mg tablet RxNorm: 553890 1-2 Tablet(s) PO Q6 as needed 06/02/2016 06/16/2016 Inactive Probiotic Blend 2 million cell-50 mg capsule RxNorm: 1 Capsule(s) PO BID 05/13/2016 05/19/2016 Inactive nitrofurantoin 100 mg capsule RxNorm: 254354 1 Capsule(s) PO BID 05/13/2016 05/19/2016 Inactive nitrofurantoin 100 mg capsule RxNorm: 279270 1 Capsule(s) PO BID 05/13/2016 05/12/2016 Inactive fentanyl 75 mcg/hr transdermal patch RxNorm: 442799 1 Patch TD Q72H 05/13/2016 06/04/2016 Inactive Keflex 500 mg capsule RxNorm: 632563 1 Capsule(s) PO TID 05/07/2016 05/13/2016 Inactive Patient at F Keflex 500 mg capsule RxNorm: 809767 1 Capsule(s) PO TID 05/07/2016 05/06/2016 Inactive hydrocodone 10 mg-acetaminophen 325 mg tablet RxNorm: 132269 1-2 Tablet(s) PO Q6 as needed 05/04/2016 06/01/2016 Inactive hydrochlorothiazide 25 mg tablet RxNorm: 353911 Tablet(s) GIVE 1 TABLET VIA PEG TUBE ONCE A DAY 04/29/2016 11/24/2016 Active hydrochlorothiazide 25 mg tablet RxNorm: 097025 GIVE 1 TABLET VIA PEG TUBE ONCE A DAY 04/22/2016 04/28/2016 Inactive Generic For:HYDRODIURIL 25 MG TABLET refill request fentanyl 75 mcg/hr transdermal patch RxNorm: 324613 1 Patch TD Q72H 04/17/2016 05/12/2016 Inactive Xarelto 20 mg tablet RxNorm: 8597395 TAKE 1 TABLET VIA PEG TUBE AT BEDTIME 04/16/2016 06/14/2016 Inactive 04/16/2016 9:08:52 AM citalopram 40 mg tablet RxNorm: 031493 1 Tablet(s) PO daily 04/02/2016 02/25/2017 Active citalopram 40 mg tablet RxNorm: 478447 1 Tablet(s) PO daily 03/27/2016 04/01/2016 Inactive hydrocodone 10 mg-acetaminophen 325 mg tablet RxNorm: 447116 1-2 Tablet(s) PO Q6 as needed 03/27/2016 04/25/2016 Inactive fentanyl 75 mcg/hr transdermal patch RxNorm: 096857 1 Patch TD Q72H 03/18/2016 04/16/2016 Inactive hydrocodone 10 mg-acetaminophen 325 mg tablet RxNorm: 221230 1-2 Tablet(s) PO Q6 as needed 03/11/2016 03/26/2016 Inactive citalopram 40 mg tablet RxNorm: 723361 1 Tablet(s) PO daily 03/04/2016 03/26/2016 Inactive Levemir FlexTouch 100 unit/mL (3 mL) subcutaneous insulin pen RxNorm: 174425 20 Unit(s) SQ BID 03/02/2016 09/27/2016 Inactive lisinopril 20 mg tablet RxNorm: 689118 1 Tablet(s) PO daily 02/25/2016 07/01/2016 Inactive Ativan 0.5 mg tablet RxNorm: 970160 1 Tablet(s) PO Q4H as needed 02/18/2016 No Stop Date Active Xarelto 20 mg tablet RxNorm: 3995324 TAKE 1 TABLET VIA PEG TUBE AT BEDTIME 02/12/2016 04/11/2016 Inactive 02/12/2016 9:08:22 AM hydrocodone 10 mg-acetaminophen 325 mg tablet RxNorm: 051102 1-2 Tablet(s) PO Q6 as needed 02/12/2016 03/10/2016 Inactive fentanyl 75 mcg/hr transdermal patch RxNorm: 738508 1 Patch TD Q72H 02/11/2016 03/11/2016 Inactive citalopram 20 mg tablet RxNorm: 973261 1 Tablet(s) PO daily 01/28/2016 03/03/2016 Inactive fentanyl 75 mcg/hr transdermal patch RxNorm: 606543 1 TD Q72H 01/17/2016 02/10/2016 Inactive hydrocodone 10 mg-acetaminophen 325 mg tablet RxNorm: 706467 1-2 Tablet(s) PO Q6 as needed 01/07/2016 02/05/2016 Inactive fentanyl 50 mcg/hr transdermal patch RxNorm: 294454 1 TD Q72H 01/01/2016 01/16/2016 Inactive fentanyl 50 mcg/hr transdermal patch RxNorm: 887556 1 TD q 3 days 12/26/2015 12/31/2015 Inactive Xarelto 20 mg tablet RxNorm: 9077831 TAKE 1 TABLET VIA PEG TUBE AT BEDTIME 12/17/2015 02/11/2016 Inactive 12/16/2015 3:27:57 PM12/14/2015 9:45:17 AM hydrocodone 10 mg-acetaminophen 325 mg tablet RxNorm: 783713 1-2 Tablet(s) PO Q6 as needed 12/06/2015 01/04/2016 Inactive fentanyl 50 mcg/hr transdermal patch RxNorm: 738557 1 TD q 3 days 12/06/2015 12/25/2015 Inactive fentanyl 25 mcg/hr transdermal patch RxNorm: 726817 1 TD q 3 days 11/18/2015 12/05/2015 Inactive Zithromax Z-Eliu 250 mg tablet RxNorm: 947471 1 Tablet(s) PO UD 10/09/2015 02/26/2016 Inactive z pack as directed- please write out instructions- pt at [facility] nystatin 100,000 unit/gram topical powder RxNorm: 664704 APPLY TO UNDER BREASTS TWICE DAILY FOR YEAST SKIN INFECTION AND APPLY TO UNDERARM AND ABDOMINAL FOLDS AND PERIAREA TWICE DAILY 10/07/2015 12/05/2015 Inactive Generic For:MYCOSTATIN 100,000 UNITS/GM PW 10/05/2015 12:07:35 PM fentanyl 25 mcg/hr transdermal patch RxNorm: 545954 1 TD q 3 days 10/03/2015 11/01/2015 Inactive fentanyl 25 mcg/hr transdermal patch RxNorm: 166267 1 TD q 3 days 09/27/2015 10/02/2015 Inactive fentanyl 25 mcg/hr transdermal patch RxNorm: 260567 1 TD q 3 days 09/17/2015 09/26/2015 Inactive fentanyl 25 mcg/hr transdermal patch RxNorm: 549554 1 TD q 3 days 08/30/2015 09/16/2015 Inactive hydrocodone 5 mg-acetaminophen 325 mg tablet RxNorm: 687111 1 Tablet(s) PO Q6 as needed 08/30/2015 09/28/2015 Inactive Diflucan 100 mg tablet RxNorm: 438315 1 Tablet(s) Miscellaneous per peg daily 07/29/2015 08/04/2015 Inactive fentanyl 25 mcg/hr transdermal patch RxNorm: 224420 1 TD q 3 days 07/18/2015 08/29/2015 Inactive hydrocodone 5 mg-acetaminophen 325 mg tablet RxNorm: 338694 1 Tablet(s) PO Q6 as needed 07/18/2015 08/29/2015 Inactive Diflucan 100 mg tablet RxNorm: 248557 1 Tablet(s) Miscellaneous per peg daily 06/17/2015 06/23/2015 Inactive baclofen 10 mg tablet RxNorm: 488257 1 Tablet(s) PO TID No Start Date Active pravastatin 40 mg tablet RxNorm: 333769 Tablet(s) PO daily No Start Date Active Ativan 0.5 mg tablet RxNorm: 779635 1 Tablet(s) PO Q4H as needed No Start Date 02/17/2016 Inactive ranitidine 150 mg tablet RxNorm: 747630 1 Tablet(s) PO daily No Start Date 08/24/2016 Inactive carvedilol 3.125 mg tablet RxNorm: 098915 1 Tablet(s) PO daily No Start Date 09/29/2016 Inactive citalopram 40 mg tablet RxNorm: 661011 1 Tablet(s) PO daily No Start Date 01/27/2016 Inactive Probiotic Blend oral RxNorm: oral No Start Date 05/12/2016 Inactive hydrochlorothiazide 25 mg tablet RxNorm: 909459 1 Tablet(s) PO daily No Start Date 04/21/2016 Inactive Levemir FlexTouch 100 unit/mL (3 mL) subcutaneous insulin pen RxNorm: 470915 10 Unit(s) SQ BID No Start Date 03/01/2016 Inactive Zithromax Z-Eliu 250 mg tablet RxNorm: 735351 1 Tablet(s) PO UD No Start Date 10/08/2015 Inactive z pack as directed- please write out instructions- pt at [facility] nystatin 100,000 unit/gram topical powder RxNorm: 042203 Gram(s) TOP BID as needed No Start Date 10/06/2015 Inactive Xarelto 20 mg tablet RxNorm: 5023422 1 Tablet(s) PO daily No Start Date 12/16/2015 Inactive fentanyl 25 mcg/hr transdermal patch RxNorm: 291829 1 TD q 3 days No Start Date 07/17/2015 Inactive lisinopril 20 mg tablet RxNorm: 863604 1 Tablet(s) PO daily No Start Date 02/24/2016 Inactive hydrocodone 5 mg-acetaminophen 325 mg tablet RxNorm: 888559 1 Tablet(s) PO Q6 as needed No Start Date 07/17/2015 Inactive citalopram 40 mg tablet RxNorm: 545108 1 Tablet(s) PO daily No Start Date 03/03/2016 Inactive hyoscyamine 0.125 mg disintegrating tablet RxNorm: 7963867 1-2 Tablet(s) PO Q8 as needed No [...] Item Item Code Result Date Culture Urine [id number] URINE CULTURE SEE NOTES 09/21/2016 Culture Urine [id number] Continued Results 09/21/2016 Urine Culture Ucult Complete [...] 41.3 % 07/30/2016 Cbc With Differential Ord2 Becker% 7.2 % 07/30/2016 Cbc With Differential Ord2 [...] 2.69 K/ul 07/30/2016 Cbc With Differential Ord2 Becker ABS# 0.5 K/ul 07/30/2016 Cbc With Differential Ord2 Eos ABS# 0.5 K/ul 07/30/2016 Cbc With Differential Ord2 Baso ABS# 0.0 K/ul 07/30/2016 Comp Metabolic Ucs133 NA 141 mEq/L 07/30/2016 Comp Metabolic Stw261 K 4.3 mEq/L 07/30/2016 Comp Metabolic Jhx857 CL 100 mEq/L 07/30/2016 Comp Metabolic Mcj306 CO2 33.0 mEq/L 07/30/2016 Comp Metabolic Kmh385 ANION GAP 12 07/30/2016 Comp Metabolic Ziz433 GLUCOSE 64 mg/dL 07/30/2016 Comp Metabolic Nnf309 Creat 0.5 mg/dL 07/30/2016 Comp Metabolic Uoj062 eGFR 126 ml/min/1.73m2 07/30/2016 Comp Metabolic Gip222 BUN 25 mg/dL 07/30/2016 Comp Metabolic Mdx550 B/C Ratio 48.1 Ratio 07/30/2016 Comp Metabolic Ity235 CALCIUM 8.9 mg/dL 07/30/2016 Comp Metabolic Zlx620 ALK PHOS 90 U/L 07/30/2016 Comp Metabolic Gfm202 AST(SGOT) 22 U/L 07/30/2016 Comp Metabolic Osv805 ALT(SGPT) 36 U/L 07/30/2016 Comp Metabolic Puj420 BILI T 0.3 mg/dL 07/30/2016 Comp Metabolic Euq109 ALBUMIN 3.4 g/dL 07/30/2016 Comp Metabolic Iqw397 TPRO 6.0 g/dL 07/30/2016 Comp Metabolic Mus274 GLOB 2.7 g/dL 07/30/2016 Comp Metabolic Kqb438 A/G Ratio 1.3 Ratio 07/30/2016 Comp Metabolic Sfa659 Osmo 284 mOsmo 07/30/2016 A1C Frequency Sls361 A1CF 79103-3 Last A1C performed at [facility] lab on: 05-12-2016 07/30/2016 %Hba1C Ljg470 % HbA1c 92890- 6 5.2 % 05/12/2016 %Hba1C Dyo918 Gluc [address] 103 mg/dL 05/12/2016 Culture Urine [id number] URINE CULTURE SEE NOTES 05/11/2016 Urine Culture [...] Urinalysis Ord28 U-Yeast NEGATIVE 05/06/2016 Culture Urine [id number] URINE CULTURE SEE NOTES 03/17/2016 Culture Urine [id number] Continued Results 03/17/2016 Urine Culture Ucult Complete [...] 47.1 % 02/11/2016 Cbc With Differential Ord2 Lymph% 38.8 % 02/11/2016 Cbc With Differential Ord2 MCV 101.2 fl 02/11/2016 Cbc With Differential Ord2 Becker% 9.1 % 02/11/2016 Cbc With Differential Ord2 MCH 32.0 pg 02/11/2016 Cbc With Differential Ord2 Eos% [...] 2.59 K/ul 02/11/2016 Cbc With Differential Ord2 Becker ABS# 0.6 K/ul 02/11/2016 Cbc With Differential Ord2 Eos ABS# 0.3 K/ul 02/11/2016 Cbc With Differential Ord2 Baso ABS# 0.0 K/ul 02/11/2016 Comp Metabolic Lwc442 NA 137 mEq/L 02/11/2016 Comp Metabolic Dck984 K 4.4 mEq/L 02/11/2016 Comp Metabolic Ttf393 CL 100 mEq/L 02/11/2016 Comp Metabolic Kmy854 CO2 25.0 mEq/L 02/11/2016 Comp Metabolic Qmu899 ANION GAP 16 02/11/2016 Comp Metabolic Cld919 GLUCOSE 99 mg/dL 02/11/2016 Comp Metabolic Aql587 Creat 0.6 mg/dL 02/11/2016 Comp Metabolic Aqc338 eGFR 99 ml/min/1.73m2 02/11/2016 Comp Metabolic Dkw969 BUN 27 mg/dL 02/11/2016 Comp Metabolic Ady670 B/C Ratio 42.2 Ratio 02/11/2016 Comp Metabolic Djk255 CALCIUM 9.2 mg/dL 02/11/2016 Comp Metabolic Rer809 ALK PHOS 74 U/L 02/11/2016 Comp Metabolic Rqe516 AST(SGOT) 24 U/L 02/11/2016 Comp Metabolic Mzl568 ALT(SGPT) 26 U/L 02/11/2016 Comp Metabolic Arv331 BILI T 0.5 mg/dL 02/11/2016 Comp Metabolic Mut721 ALBUMIN 3.5 g/dL 02/11/2016 Comp Metabolic Hbm982 TPRO 6.2 g/dL 02/11/2016 Comp Metabolic Xys563 GLOB 2.7 g/dL 02/11/2016 Comp Metabolic Qtj444 A/G Ratio 1.3 Ratio 02/11/2016 Comp Metabolic Ljf904 Osmo 279 mOsmo 02/11/2016 Review of Systems [...] Date PRESCRIP TRANSMIT VIA ERX SY CPT-4: P2975Vglembu 06/17/2015 Vital Signs Date Vital 07/18/2015 Blood Pressure 1: 128/86 Code: 8480-6 BMI: 31.4 Code: 89997-2 Heart Rate 1: 72 bpm Height: 5'1" Weight: 166 lbs 06/17/2015 Blood Pressure 1: 110/78 Code: 8480-6 BMI: 33.3 Code: 22569-1 Heart Rate 1: 74 bpm Height: 5'1" [...] Encounters Encounter Performer Location Codes Date () 94752 EST. 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] Diagnosis: 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] Diagnosis: Dysphagia following cerebral infarction[ICD10: I69.391] 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] Diagnosis: Candidal esophagitis[ICD10: B37.81] [facility] CPT- 4: 14572 06/17/2015 Plan of Care Planned Activity Notes [...] Follow up weight in 1 month Neck tlks-ardykmfreya-Vrza PT focus neck/upper body Right earache-cerumen removed with water pick today in the office 07/18/2015 Appointment: (30 min) Complex 07/18/2015 Patient Education: Patient Medication Summary Completed 07/18/2015 Patient Education: Obesity Completed 07/18/2015 Patient Education: .Cervicalgia Neck Pain Completed 07/18/2015 Referral: [facility] WPtel: [phone] [facility] Referral Completed 06/25/2015 Visit Plan: Hypertension - [...] assure normal liver response to medications.referral to [facility] for post stroke - left sided weakness, neck stiffness, upper extremity weaknessDiabetes Mellitus - controlled - per family report - check labs this week, get report from and [facility].I spent over an hour with the patient in direct contact. 06/17/2015 Appointment: [facility]rett WPtel: [phone] [id number] New Patient 06/17/2015 Patient Education: Patient Medication Summary Completed 06/17/2015 Patient Education: Obesity Completed 06/17/2015 Patient Education: Hypertension Completed 06/17/2015 Care Plan: Referral Order SNOMED-CT : [id number] Ordered 06/17/2015 Referral: [facility] WPtel: [phone] [facility] Referral Appointment Requested Instructions Comment . [...] normal liver response to medications. referral to [facility] for post stroke - left sided weakness, neck stiffness, upper extremity weakness Diabetes Mellitus - controlled - per family report - check labs this week, get report from and [facility]. I spent over an hour with the [...] Follow up weight in 1 month Neck raei-zavjygjclqd-Fiix PT focus neck/upper body Right earache-cerumen removed with water pick today in the office
--- OUTSIDE RECORDS SUMMARY | 2018-08-09 10:38 | XMS REPORT | CCD ---
Author Author [facility] Organization [facility] Address [address] [place] [address] Phone Care Team Providers Care Care Program Director Name Role Phone PP Unavailable CCM Unavailable Summary Purpose Interface Exchange Insurance Providers Payer name Policy type / Coverage type Covered democrat ID Effective Begin Date Effective End Date WPS Medicare Part B Medicare Part B [id number] Unknown Unknown [employer] Insurance Medicare Part B [id number] Unknown Unknown Family history Father Diagnosis Age [...] Unknown Retired 06/17/[address]: 6808275 Quit over 10 years ago 15+ 06/17/[address]: 612142188 Never drinks alcohol 06/17/2015 Allergies, Adverse Reactions, [...] Start Date Stop Date Status Fill Instructions Probiotic Blend 2 million cell-50 mg capsule RxNorm: 1 Capsule(s) PO BID 09/17/2016 09/23/2016 Active Keflex 500 mg capsule RxNorm: 354486 1 Capsule(s) PO TID 09/17/2016 09/23/2016 Active hyoscyamine 0.125 mg/5 mL oral elixir RxNorm: 5822551 5 Milliliter(s) PO TID 09/08/2016 09/17/2016 Inactive hyoscyamine 0.125 mg/5 mL oral elixir RxNorm: 5262466 5 Milliliter(s) PO TID 09/08/2016 09/07/2016 Inactive hyoscyamine 0.125 mg disintegrating tablet RxNorm: 9678520 1-2 Tablet(s) PO Q8 as needed 09/07/2016 01/04/2017 Active fentanyl 100 mcg/hr transdermal patch RxNorm: 056303 1 Patch TD Q72H 09/01/2016 09/30/2016 Active ranitidine 150 mg tablet RxNorm: 936221 1 Tablet(s) PO BID 08/25/2016 No Stop Date Active hydrocodone 10 mg-acetaminophen 325 mg tablet RxNorm: 626846 1 Tablet(s) PO scheduled BID et Q6 hours as needed 08/24/2016 09/22/2016 Active cyanocobalamin (vit B-12) 1,000 mcg tablet RxNorm: 052107 1 Tablet(s) PO daily 08/12/2016 11/09/2016 Active cyanocobalamin (vit B-12) 1,000 mcg tablet RxNorm: 866657 1 Tablet(s) PO daily 08/12/2016 08/11/2016 Inactive hydrocodone 10 mg-acetaminophen 325 mg tablet RxNorm: 174730 1-2 Tablet(s) PO Q6 as needed 08/03/2016 08/17/2016 Inactive fentanyl 100 mcg/hr transdermal patch RxNorm: 962508 1 Patch TD Q72H 08/03/2016 08/31/2016 Inactive nystatin 100,000 unit/gram topical powder RxNorm: 957377 APPLY UNDER BREASTS TWICE DAILY FOR YEAST SKIN INFECTION AND APPLY TO UNDERARM AND ABDOMINAL FOLDS AND PERIAREA TWICE DAILY 07/17/2016 09/14/2016 Inactive 07/17/2016 3:56:54 PM fentanyl 100 mcg/hr transdermal patch RxNorm: 362808 1 Patch TD Q72H 07/15/2016 08/02/2016 Inactive lisinopril 20 mg tablet RxNorm: 046354 1 Tablet(s) PO daily 07/02/2016 03/28/2017 Active hydrocodone 10 mg-acetaminophen 325 mg tablet RxNorm: 496985 1-2 Tablet(s) PO Q6 as needed 07/01/2016 07/15/2016 Inactive Xarelto 20 mg tablet RxNorm: 6324699 Tablet(s) TAKE 1 TABLET VIA PEG TUBE AT BEDTIME 06/19/2016 01/14/2017 Active fentanyl 100 mcg/hr transdermal patch RxNorm: 485291 1 Patch TD Q72H 06/17/2016 07/14/2016 Inactive nystatin 100,000 unit/gram topical powder RxNorm: 439532 APPLY TO UNDER BREASTS TWICE DAILY FOR YEAST SKIN INFECTION AND APPLY TO UNDERARM AND ABDOMINAL FOLDS AND PERIAREA TWICE DAILY 06/15/2016 07/16/2016 Inactive Generic For:MYCOSTATIN 100,000 UNITS/GM PW 06/15/2016 12:28:26 PM fentanyl 100 mcg/hr transdermal patch RxNorm: 551896 1 Patch TD Q72H 06/05/2016 06/16/2016 Inactive hydrocodone 10 mg-acetaminophen 325 mg tablet RxNorm: 411592 1-2 Tablet(s) PO Q6 as needed 06/02/2016 06/16/2016 Inactive Probiotic Blend 2 million cell-50 mg capsule RxNorm: 1 Capsule(s) PO BID 05/13/2016 05/19/2016 Inactive nitrofurantoin 100 mg capsule RxNorm: 030582 1 Capsule(s) PO BID 05/13/2016 05/19/2016 Inactive nitrofurantoin 100 mg capsule RxNorm: 122355 1 Capsule(s) PO BID 05/13/2016 05/12/2016 Inactive fentanyl 75 mcg/hr transdermal patch RxNorm: 560970 1 Patch TD Q72H 05/13/2016 06/04/2016 Inactive Keflex 500 mg capsule RxNorm: 467548 1 Capsule(s) PO TID 05/07/2016 05/13/2016 Inactive Patient at F Keflex 500 mg capsule RxNorm: 551442 1 Capsule(s) PO TID 05/07/2016 05/06/2016 Inactive hydrocodone 10 mg-acetaminophen 325 mg tablet RxNorm: 157745 1-2 Tablet(s) PO Q6 as needed 05/04/2016 06/01/2016 Inactive hydrochlorothiazide 25 mg tablet RxNorm: 133380 Tablet(s) GIVE 1 TABLET VIA PEG TUBE ONCE A DAY 04/29/2016 11/24/2016 Active hydrochlorothiazide 25 mg tablet RxNorm: 144248 GIVE 1 TABLET VIA PEG TUBE ONCE A DAY 04/22/2016 04/28/2016 Inactive Generic For:HYDRODIURIL 25 MG TABLET refill request fentanyl 75 mcg/hr transdermal patch RxNorm: 341489 1 Patch TD Q72H 04/17/2016 05/12/2016 Inactive Xarelto 20 mg tablet RxNorm: 0433799 TAKE 1 TABLET VIA PEG TUBE AT BEDTIME 04/16/2016 06/14/2016 Inactive 04/16/2016 9:08:52 AM citalopram 40 mg tablet RxNorm: 509801 1 Tablet(s) PO daily 04/02/2016 02/25/2017 Active citalopram 40 mg tablet RxNorm: 742301 1 Tablet(s) PO daily 03/27/2016 04/01/2016 Inactive hydrocodone 10 mg-acetaminophen 325 mg tablet RxNorm: 285414 1-2 Tablet(s) PO Q6 as needed 03/27/2016 04/25/2016 Inactive fentanyl 75 mcg/hr transdermal patch RxNorm: 019354 1 Patch TD Q72H 03/18/2016 04/16/2016 Inactive hydrocodone 10 mg-acetaminophen 325 mg tablet RxNorm: 493310 1-2 Tablet(s) PO Q6 as needed 03/11/2016 03/26/2016 Inactive citalopram 40 mg tablet RxNorm: 349394 1 Tablet(s) PO daily 03/04/2016 03/26/2016 Inactive Levemir FlexTouch 100 unit/mL (3 mL) subcutaneous insulin pen RxNorm: 119314 20 Unit(s) SQ BID 03/02/2016 09/27/2016 Active lisinopril 20 mg tablet RxNorm: 528541 1 Tablet(s) PO daily 02/25/2016 07/01/2016 Inactive Ativan 0.5 mg tablet RxNorm: 907933 1 Tablet(s) PO Q4H as needed 02/18/2016 No Stop Date Active Xarelto 20 mg tablet RxNorm: 5266750 TAKE 1 TABLET VIA PEG TUBE AT BEDTIME 02/12/2016 04/11/2016 Inactive 02/12/2016 9:08:22 AM hydrocodone 10 mg-acetaminophen 325 mg tablet RxNorm: 136420 1-2 Tablet(s) PO Q6 as needed 02/12/2016 03/10/2016 Inactive fentanyl 75 mcg/hr transdermal patch RxNorm: 022138 1 Patch TD Q72H 02/11/2016 03/11/2016 Inactive citalopram 20 mg tablet RxNorm: 811172 1 Tablet(s) PO daily 01/28/2016 03/03/2016 Inactive fentanyl 75 mcg/hr transdermal patch RxNorm: 464269 1 TD Q72H 01/17/2016 02/10/2016 Inactive hydrocodone 10 mg-acetaminophen 325 mg tablet RxNorm: 901733 1-2 Tablet(s) PO Q6 as needed 01/07/2016 02/05/2016 Inactive fentanyl 50 mcg/hr transdermal patch RxNorm: 459112 1 TD Q72H 01/01/2016 01/16/2016 Inactive fentanyl 50 mcg/hr transdermal patch RxNorm: 710882 1 TD q 3 days 12/26/2015 12/31/2015 Inactive Xarelto 20 mg tablet RxNorm: 2977259 TAKE 1 TABLET VIA PEG TUBE AT BEDTIME 12/17/2015 02/11/2016 Inactive 12/16/2015 3:27:57 PM12/14/2015 9:45:17 AM hydrocodone 10 mg-acetaminophen 325 mg tablet RxNorm: 041537 1-2 Tablet(s) PO Q6 as needed 12/06/2015 01/04/2016 Inactive fentanyl 50 mcg/hr transdermal patch RxNorm: 621044 1 TD q 3 days 12/06/2015 12/25/2015 Inactive fentanyl 25 mcg/hr transdermal patch RxNorm: 296680 1 TD q 3 days 11/18/2015 12/05/2015 Inactive Zithromax Z-Eliu 250 mg tablet RxNorm: 005058 1 Tablet(s) PO UD 10/09/2015 02/26/2016 Inactive z pack as directed- please write out instructions- pt at [facility] nystatin 100,000 unit/gram topical powder RxNorm: 054416 APPLY TO UNDER BREASTS TWICE DAILY FOR YEAST SKIN INFECTION AND APPLY TO UNDERARM AND ABDOMINAL FOLDS AND PERIAREA TWICE DAILY 10/07/2015 12/05/2015 Inactive Generic For:MYCOSTATIN 100,000 UNITS/GM PW 10/05/2015 12:07:35 PM fentanyl 25 mcg/hr transdermal patch RxNorm: 111925 1 TD q 3 days 10/03/2015 11/01/2015 Inactive fentanyl 25 mcg/hr transdermal patch RxNorm: 877595 1 TD q 3 days 09/27/2015 10/02/2015 Inactive fentanyl 25 mcg/hr transdermal patch RxNorm: 727782 1 TD q 3 days 09/17/2015 09/26/2015 Inactive fentanyl 25 mcg/hr transdermal patch RxNorm: 377071 1 TD q 3 days 08/30/2015 09/16/2015 Inactive hydrocodone 5 mg-acetaminophen 325 mg tablet RxNorm: 560070 1 Tablet(s) PO Q6 as needed 08/30/2015 09/28/2015 Inactive Diflucan 100 mg tablet RxNorm: 428966 1 Tablet(s) Miscellaneous per peg daily 07/29/2015 08/04/2015 Inactive fentanyl 25 mcg/hr transdermal patch RxNorm: 252376 1 TD q 3 days 07/18/2015 08/29/2015 Inactive hydrocodone 5 mg-acetaminophen 325 mg tablet RxNorm: 519820 1 Tablet(s) PO Q6 as needed 07/18/2015 08/29/2015 Inactive Diflucan 100 mg tablet RxNorm: 301966 1 Tablet(s) Miscellaneous per peg daily 06/17/2015 06/23/2015 Inactive baclofen 10 mg tablet RxNorm: 302439 1 Tablet(s) PO TID No Start Date Active carvedilol 3.125 mg tablet RxNorm: 215785 1 Tablet(s) PO daily No Start Date Active pravastatin 40 mg tablet RxNorm: 866563 Tablet(s) PO daily No Start Date Active Ativan 0.5 mg tablet RxNorm: 221209 1 Tablet(s) PO Q4H as needed No Start Date 02/17/2016 Inactive ranitidine 150 mg tablet RxNorm: 834588 1 Tablet(s) PO daily No Start Date 08/24/2016 Inactive citalopram 40 mg tablet RxNorm: 602216 1 Tablet(s) PO daily No Start Date 01/27/2016 Inactive Probiotic Blend oral RxNorm: oral No Start Date 05/12/2016 Inactive hydrochlorothiazide 25 mg tablet RxNorm: 918481 1 Tablet(s) PO daily No Start Date 04/21/2016 Inactive Levemir FlexTouch 100 unit/mL (3 mL) subcutaneous insulin pen RxNorm: 319638 10 Unit(s) SQ BID No Start Date 03/01/2016 Inactive Zithromax Z-Eliu 250 mg tablet RxNorm: 962406 1 Tablet(s) PO UD No Start Date 10/08/2015 Inactive z pack as directed- please write out instructions- pt at [facility] nystatin 100,000 unit/gram topical powder RxNorm: 126796 Gram(s) TOP BID as needed No Start Date 10/06/2015 Inactive Xarelto 20 mg tablet RxNorm: 9690214 1 Tablet(s) PO daily No Start Date 12/16/2015 Inactive fentanyl 25 mcg/hr transdermal patch RxNorm: 782612 1 TD q 3 days No Start Date 07/17/2015 Inactive lisinopril 20 mg tablet RxNorm: 664852 1 Tablet(s) PO daily No Start Date 02/24/2016 Inactive hydrocodone 5 mg-acetaminophen 325 mg tablet RxNorm: 103739 1 Tablet(s) PO Q6 as needed No Start Date 07/17/2015 Inactive citalopram 40 mg tablet RxNorm: 411718 1 Tablet(s) PO daily No Start Date 03/03/2016 Inactive hyoscyamine 0.125 mg disintegrating tablet RxNorm: 0992726 1-2 Tablet(s) PO Q8 as needed No [...] Observation Code Item Item Code Result Date Urinalysis Ord28 U-Color Yellow 09/17/2016 Urinalysis Ord28 [...] 32.4 pg 07/30/2016 Cbc With Differential Ord2 Irwin% 7.2 % 07/30/2016 Cbc With Differential Ord2 [...] 2.69 K/ul 07/30/2016 Cbc With Differential Ord2 Irwin ABS# 0.5 K/ul 07/30/2016 Cbc With Differential Ord2 Eos ABS# 0.5 K/ul 07/30/2016 Cbc With Differential Ord2 Baso ABS# 0.0 K/ul 07/30/2016 Comp Metabolic Wmh606 NA 141 mEq/L 07/30/2016 Comp Metabolic Vbw310 K 4.3 mEq/L 07/30/2016 Comp Metabolic Ktr050 CL 100 mEq/L 07/30/2016 Comp Metabolic Avf154 CO2 33.0 mEq/L 07/30/2016 Comp Metabolic Hhx488 ANION GAP 12 07/30/2016 Comp Metabolic Stn673 GLUCOSE 64 mg/dL 07/30/2016 Comp Metabolic Cgv197 Creat 0.5 mg/dL 07/30/2016 Comp Metabolic Rpq311 eGFR 126 ml/min/1.73m2 07/30/2016 Comp Metabolic Zxs098 BUN 25 mg/dL 07/30/2016 Comp Metabolic Tyx452 B/C Ratio 48.1 Ratio 07/30/2016 Comp Metabolic Zvj034 CALCIUM 8.9 mg/dL 07/30/2016 Comp Metabolic Btm775 ALK PHOS 90 U/L 07/30/2016 Comp Metabolic Rda118 AST(SGOT) 22 U/L 07/30/2016 Comp Metabolic Ukc852 ALT(SGPT) 36 U/L 07/30/2016 Comp Metabolic Dsk014 BILI T 0.3 mg/dL 07/30/2016 Comp Metabolic Rwa120 ALBUMIN 3.4 g/dL 07/30/2016 Comp Metabolic Bms837 TPRO 6.0 g/dL 07/30/2016 Comp Metabolic Cni792 GLOB 2.7 g/dL 07/30/2016 Comp Metabolic Prc732 A/G Ratio 1.3 Ratio 07/30/2016 Comp Metabolic Rsu556 Osmo 284 mOsmo 07/30/2016 A1C Frequency Aqa981 A1CF 34915-0 Last A1C performed at [facility] lab on: 05-12-2016 07/30/2016 %Hba1C Jbi978 % HbA1c 98703- 6 5.2 % 05/12/2016 %Hba1C Qfy288 Gluc Ave 103 mg/dL 05/12/2016 Culture Urine [id number] URINE CULTURE SEE NOTES 05/11/2016 Urine Culture [...] U-Com Culture to follow 05/06/2016 Culture Urine [id number] URINE CULTURE SEE NOTES 03/17/2016 Culture Urine [id number] Continued Results 03/17/2016 Urine Culture Ucult Complete [...] 32.0 pg 02/11/2016 Cbc With Differential Ord2 Irwin% 9.1 % 02/11/2016 Cbc With Differential Ord2 [...] 2.59 K/ul 02/11/2016 Cbc With Differential Ord2 Irwin ABS# 0.6 K/ul 02/11/2016 Cbc With Differential Ord2 Eos ABS# 0.3 K/ul 02/11/2016 Cbc With Differential Ord2 Baso ABS# 0.0 K/ul 02/11/2016 Comp Metabolic Rgc933 NA 137 mEq/L 02/11/2016 Comp Metabolic Ggu232 K 4.4 mEq/L 02/11/2016 Comp Metabolic Gqo276 CL 100 mEq/L 02/11/2016 Comp Metabolic Onq292 CO2 25.0 mEq/L 02/11/2016 Comp Metabolic Tcq601 ANION GAP 16 02/11/2016 Comp Metabolic Djc636 GLUCOSE 99 mg/dL 02/11/2016 Comp Metabolic Kug977 Creat 0.6 mg/dL 02/11/2016 Comp Metabolic Rof800 eGFR 99 ml/min/1.73m2 02/11/2016 Comp Metabolic Bnp578 BUN 27 mg/dL 02/11/2016 Comp Metabolic Vwq243 B/C Ratio 42.2 Ratio 02/11/2016 Comp Metabolic Tao527 CALCIUM 9.2 mg/dL 02/11/2016 Comp Metabolic Ahb107 ALK PHOS 74 U/L 02/11/2016 Comp Metabolic Oaw726 AST(SGOT) 24 U/L 02/11/2016 Comp Metabolic Jzp308 ALT(SGPT) 26 U/L 02/11/2016 Comp Metabolic Ptu072 BILI T 0.5 mg/dL 02/11/2016 Comp Metabolic Iuj760 ALBUMIN 3.5 g/dL 02/11/2016 Comp Metabolic Mqp877 TPRO 6.2 g/dL 02/11/2016 Comp Metabolic Ajw581 GLOB 2.7 g/dL 02/11/2016 Comp Metabolic Nkq407 A/G Ratio 1.3 Ratio 02/11/2016 Comp Metabolic Fhs970 Osmo 279 mOsmo 02/11/2016 Review of Systems [...] Date PRESCRIP TRANSMIT VIA ERX SY CPT-4: [id number] 06/17/2015 Vital Signs Date Vital 07/18/2015 Blood Pressure 1: 128/86 Code: 8480-6 BMI: 31.4 Code: 47945-0 Heart Rate 1: 72 bpm Height: 5'1" Weight: 166 lbs 06/17/2015 Blood Pressure 1: 110/78 Code: 8480-6 BMI: 33.3 Code: 92488-7 Heart Rate 1: 74 bpm Height: 5'1" [...] Present Encounters Encounter Performer Location Codes Date (40027) 47506 EST. 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] Diagnosis: Ataxia following cerebral infarction[ICD10: I69.393] Diagnosis: 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] Diagnosis: Dysphagia following cerebral infarction[ICD10: I69.391] 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] Diagnosis: Candidal esophagitis[ICD10: B37.81] [facility] CPT- 4: 27053 06/17/2015 Plan of Care Planned Activity Notes [...] Follow up weight in 1 month Neck fnqe-mmehxzbcfio-Iaqq PT focus neck/upper body Right earache-cerumen removed with water pick today in the office 07/18/2015 Appointment: (30 min) Complex 07/18/2015 Patient Education: Patient Medication Summary Completed 07/18/2015 Patient Education: Obesity Completed 07/18/2015 Patient Education: .Cervicalgia Neck Pain Completed 07/18/2015 Referral: [facility] physical therapy WPtel: [address] [place], [place] [id number] Referral Completed 06/25/2015 Visit Plan: Hypertension - [...] assure normal liver response to medications.referral to [facility] for post stroke - left sided weakness, neck stiffness, upper extremity weaknessDiabetes Mellitus - controlled - per family report - check labs this week, get report from and [facility].I spent over an hour with the patient in direct contact. 06/17/2015 App[facility]ment: [facility] [phone] [id number] New Patient 06/17/2015 Patient Education: Patient Medication Summary Completed 06/17/2015 Patient Education: Obesity Completed 06/17/2015 Patient Education: Hypertension Completed 06/17/2015 Care Plan: Referral Order SNOMED-CT : [id number] Ordered 06/17/2015 Referral: [facility] WPtel: [address] [facility] Referral Appointment Requested Instructions Comment . Hypertension [...] normal liver response to medications. referral to [facility] therapy for post stroke - left sided weakness, neck stiffness, upper extremity weakness Diabetes Mellitus - controlled - per family report - check labs this week, get report from and [facility]. I spent over an hour with the patient in direct contact. Add 1 scoop of whey protein from [facility] to 2 feedings per day . Hypertension [...] Follow up weight in 1 month Neck tcwe-dggmxszzbbx-Yeap PT focus neck/upper body Right earache-cerumen removed with water pick today in the office
--- OUTSIDE RECORDS SUMMARY | 2018-08-09 10:38 | XMS REPORT | CCD ---
Author Author [facility] Organization [facility] Address [address] [place] [address] Phone Care Team Providers Care Iron Bender Name Role Phone PP Unavailable CCM Unavailable Summary Purpose Interface Exchange Insurance Providers Payer name Policy type / Coverage type Covered constitution party ID Effective Begin Date Effective End Date WPS Medicare Part B Medicare Part B [id number] Unknown Unknown [facility] Life Insurance Medicare Part B [id number] Unknown Unknown Family history Father Diagnosis Age [...] Unknown Retired 06/17/[address]: 6036501 Quit over 10 years ago 15+ 06/17/[address]: 116631186 Never drinks alcohol 06/17/2015 Allergies, Adverse Reactions, [...] 09/23/2016 Active Keflex 500 mg capsule RxNorm: 525776 1 Capsule(s) PO TID 09/17/2016 09/23/2016 Active hyoscyamine 0.125 mg/5 mL oral elixir RxNorm: 2852883 5 Milliliter(s) PO TID 09/08/2016 09/17/2016 Inactive hyoscyamine 0.125 mg/5 mL oral elixir RxNorm: 8648683 5 Milliliter(s) PO TID 09/08/2016 09/07/2016 Inactive hyoscyamine 0.125 mg disintegrating tablet RxNorm: 3089948 1-2 Tablet(s) PO Q8 as needed 09/07/2016 01/04/2017 Active fentanyl 100 mcg/hr transdermal patch RxNorm: 743651 1 Patch TD Q72H 09/01/2016 09/30/2016 Active ranitidine 150 mg tablet RxNorm: 178056 1 Tablet(s) PO BID 08/25/2016 No Stop Date Active hydrocodone 10 mg-acetaminophen 325 mg tablet RxNorm: 521348 1 Tablet(s) PO scheduled BID et Q6 hours as needed 08/24/2016 09/22/2016 Active cyanocobalamin (vit B-12) 1,000 mcg tablet RxNorm: 667849 1 Tablet(s) PO daily 08/12/2016 11/09/2016 Active cyanocobalamin (vit B-12) 1,000 mcg tablet RxNorm: 837629 1 Tablet(s) PO daily 08/12/2016 08/11/2016 Inactive hydrocodone 10 mg-acetaminophen 325 mg tablet RxNorm: 072523 1-2 Tablet(s) PO Q6 as needed 08/03/2016 08/17/2016 Inactive fentanyl 100 mcg/hr transdermal patch RxNorm: 496251 1 Patch TD Q72H 08/03/2016 08/31/2016 Inactive nystatin 100,000 unit/gram topical powder RxNorm: 191159 APPLY UNDER BREASTS TWICE DAILY FOR YEAST SKIN INFECTION AND APPLY TO UNDERARM AND ABDOMINAL FOLDS AND PERIAREA TWICE DAILY 07/17/2016 09/14/2016 Inactive 07/17/2016 3:56:54 PM fentanyl 100 mcg/hr transdermal patch RxNorm: 557172 1 Patch TD Q72H 07/15/2016 08/02/2016 Inactive lisinopril 20 mg tablet RxNorm: 469754 1 Tablet(s) PO daily 07/02/2016 03/28/2017 Active hydrocodone 10 mg-acetaminophen 325 mg tablet RxNorm: 928040 1-2 Tablet(s) PO Q6 as needed 07/01/2016 07/15/2016 Inactive Xarelto 20 mg tablet RxNorm: 2813156 Tablet(s) TAKE 1 TABLET VIA PEG TUBE AT BEDTIME 06/19/2016 01/14/2017 Active fentanyl 100 mcg/hr transdermal patch RxNorm: 045906 1 Patch TD Q72H 06/17/2016 07/14/2016 Inactive nystatin 100,000 unit/gram topical powder RxNorm: 533565 APPLY TO UNDER BREASTS TWICE DAILY FOR YEAST SKIN INFECTION AND APPLY TO UNDERARM AND ABDOMINAL FOLDS AND PERIAREA TWICE DAILY 06/15/2016 07/16/2016 Inactive Generic For:MYCOSTATIN 100,000 UNITS/GM PW 06/15/2016 12:28:26 PM fentanyl 100 mcg/hr transdermal patch RxNorm: 110802 1 Patch TD Q72H 06/05/2016 06/16/2016 Inactive hydrocodone 10 mg-acetaminophen 325 mg tablet RxNorm: 870924 1-2 Tablet(s) PO Q6 as needed 06/02/2016 06/16/2016 Inactive Probiotic Blend 2 million cell-50 mg capsule RxNorm: 1 Capsule(s) PO BID 05/13/2016 05/19/2016 Inactive nitrofurantoin 100 mg capsule RxNorm: 367068 1 Capsule(s) PO BID 05/13/2016 05/19/2016 Inactive nitrofurantoin 100 mg capsule RxNorm: 807268 1 Capsule(s) PO BID 05/13/2016 05/12/2016 Inactive fentanyl 75 mcg/hr transdermal patch RxNorm: 214459 1 Patch TD Q72H 05/13/2016 06/04/2016 Inactive Keflex 500 mg capsule RxNorm: 539809 1 Capsule(s) PO TID 05/07/2016 05/13/2016 Inactive Patient at F Keflex 500 mg capsule RxNorm: 848990 1 Capsule(s) PO TID 05/07/2016 05/06/2016 Inactive hydrocodone 10 mg-acetaminophen 325 mg tablet RxNorm: 082052 1-2 Tablet(s) PO Q6 as needed 05/04/2016 06/01/2016 Inactive hydrochlorothiazide 25 mg tablet RxNorm: 218556 Tablet(s) GIVE 1 TABLET VIA PEG TUBE ONCE A DAY 04/29/2016 11/24/2016 Active hydrochlorothiazide 25 mg tablet RxNorm: 467003 GIVE 1 TABLET VIA PEG TUBE ONCE A DAY 04/22/2016 04/28/2016 Inactive Generic For:HYDRODIURIL 25 MG TABLET refill request fentanyl 75 mcg/hr transdermal patch RxNorm: 431530 1 Patch TD Q72H 04/17/2016 05/12/2016 Inactive Xarelto 20 mg tablet RxNorm: 1879606 TAKE 1 TABLET VIA PEG TUBE AT BEDTIME 04/16/2016 06/14/2016 Inactive 04/16/2016 9:08:52 AM citalopram 40 mg tablet RxNorm: 790780 1 Tablet(s) PO daily 04/02/2016 02/25/2017 Active citalopram 40 mg tablet RxNorm: 822377 1 Tablet(s) PO daily 03/27/2016 04/01/2016 Inactive hydrocodone 10 mg-acetaminophen 325 mg tablet RxNorm: 923634 1-2 Tablet(s) PO Q6 as needed 03/27/2016 04/25/2016 Inactive fentanyl 75 mcg/hr transdermal patch RxNorm: 002422 1 Patch TD Q72H 03/18/2016 04/16/2016 Inactive hydrocodone 10 mg-acetaminophen 325 mg tablet RxNorm: 702284 1-2 Tablet(s) PO Q6 as needed 03/11/2016 03/26/2016 Inactive citalopram 40 mg tablet RxNorm: 675670 1 Tablet(s) PO daily 03/04/2016 03/26/2016 Inactive Levemir FlexTouch 100 unit/mL (3 mL) subcutaneous insulin pen RxNorm: 362169 20 Unit(s) SQ BID 03/02/2016 09/27/2016 Active lisinopril 20 mg tablet RxNorm: 063992 1 Tablet(s) PO daily 02/25/2016 07/01/2016 Inactive Ativan 0.5 mg tablet RxNorm: 947054 1 Tablet(s) PO Q4H as needed 02/18/2016 No Stop Date Active Xarelto 20 mg tablet RxNorm: 3142227 TAKE 1 TABLET VIA PEG TUBE AT BEDTIME 02/12/2016 04/11/2016 Inactive 02/12/2016 9:08:22 AM hydrocodone 10 mg-acetaminophen 325 mg tablet RxNorm: 035888 1-2 Tablet(s) PO Q6 as needed 02/12/2016 03/10/2016 Inactive fentanyl 75 mcg/hr transdermal patch RxNorm: 137633 1 Patch TD Q72H 02/11/2016 03/11/2016 Inactive citalopram 20 mg tablet RxNorm: 539065 1 Tablet(s) PO daily 01/28/2016 03/03/2016 Inactive fentanyl 75 mcg/hr transdermal patch RxNorm: 994098 1 TD Q72H 01/17/2016 02/10/2016 Inactive hydrocodone 10 mg-acetaminophen 325 mg tablet RxNorm: 313040 1-2 Tablet(s) PO Q6 as needed 01/07/2016 02/05/2016 Inactive fentanyl 50 mcg/hr transdermal patch RxNorm: 297702 1 TD Q72H 01/01/2016 01/16/2016 Inactive fentanyl 50 mcg/hr transdermal patch RxNorm: 765536 1 TD q 3 days 12/26/2015 12/31/2015 Inactive Xarelto 20 mg tablet RxNorm: 3563841 TAKE 1 TABLET VIA PEG TUBE AT BEDTIME 12/17/2015 02/11/2016 Inactive 12/16/2015 3:27:57 PM12/14/2015 9:45:17 AM hydrocodone 10 mg-acetaminophen 325 mg tablet RxNorm: 376489 1-2 Tablet(s) PO Q6 as needed 12/06/2015 01/04/2016 Inactive fentanyl 50 mcg/hr transdermal patch RxNorm: 314146 1 TD q 3 days 12/06/2015 12/25/2015 Inactive fentanyl 25 mcg/hr transdermal patch RxNorm: 780456 1 TD q 3 days 11/18/2015 12/05/2015 Inactive Zithromax Z-Eliu 250 mg tablet RxNorm: 617510 1 Tablet(s) PO UD 10/09/2015 02/26/2016 Inactive z pack as directed- please write out instructions- pt at [facility] nystatin 100,000 unit/gram topical powder RxNorm: 775775 APPLY TO UNDER BREASTS TWICE DAILY FOR YEAST SKIN INFECTION AND APPLY TO UNDERARM AND ABDOMINAL FOLDS AND PERIAREA TWICE DAILY 10/07/2015 12/05/2015 Inactive Generic For:MYCOSTATIN 100,000 UNITS/GM PW 10/05/2015 12:07:35 PM fentanyl 25 mcg/hr transdermal patch RxNorm: 600987 1 TD q 3 days 10/03/2015 11/01/2015 Inactive fentanyl 25 mcg/hr transdermal patch RxNorm: 167419 1 TD q 3 days 09/27/2015 10/02/2015 Inactive fentanyl 25 mcg/hr transdermal patch RxNorm: 021886 1 TD q 3 days 09/17/2015 09/26/2015 Inactive fentanyl 25 mcg/hr transdermal patch RxNorm: 753577 1 TD q 3 days 08/30/2015 09/16/2015 Inactive hydrocodone 5 mg-acetaminophen 325 mg tablet RxNorm: 857596 1 Tablet(s) PO Q6 as needed 08/30/2015 09/28/2015 Inactive Diflucan 100 mg tablet RxNorm: 490563 1 Tablet(s) Miscellaneous per peg daily 07/29/2015 08/04/2015 Inactive fentanyl 25 mcg/hr transdermal patch RxNorm: 267201 1 TD q 3 days 07/18/2015 08/29/2015 Inactive hydrocodone 5 mg-acetaminophen 325 mg tablet RxNorm: 664240 1 Tablet(s) PO Q6 as needed 07/18/2015 08/29/2015 Inactive Diflucan 100 mg tablet RxNorm: 296692 1 Tablet(s) Miscellaneous per peg daily 06/17/2015 06/23/2015 Inactive baclofen 10 mg tablet RxNorm: 127944 1 Tablet(s) PO TID No Start Date Active carvedilol 3.125 mg tablet RxNorm: 479435 1 Tablet(s) PO daily No Start Date Active pravastatin 40 mg tablet RxNorm: 588473 Tablet(s) PO daily No Start Date Active Ativan 0.5 mg tablet RxNorm: 426536 1 Tablet(s) PO Q4H as needed No Start Date 02/17/2016 Inactive ranitidine 150 mg tablet RxNorm: 351468 1 Tablet(s) PO daily No Start Date 08/24/2016 Inactive citalopram 40 mg tablet RxNorm: 299130 1 Tablet(s) PO daily No Start Date 01/27/2016 Inactive Probiotic Blend oral RxNorm: oral No Start Date 05/12/2016 Inactive hydrochlorothiazide 25 mg tablet RxNorm: 115994 1 Tablet(s) PO daily No Start Date 04/21/2016 Inactive Levemir FlexTouch 100 unit/mL (3 mL) subcutaneous insulin pen RxNorm: 696851 10 Unit(s) SQ BID No Start Date 03/01/2016 Inactive Zithromax Z-Eliu 250 mg tablet RxNorm: 057205 1 Tablet(s) PO UD No Start Date 10/08/2015 Inactive z pack as directed- please write out instructions- pt at [facility] nystatin 100,000 unit/gram topical powder RxNorm: 190919 Gram(s) TOP BID as needed No Start Date 10/06/2015 Inactive Xarelto 20 mg tablet RxNorm: 1145916 1 Tablet(s) PO daily No Start Date 12/16/2015 Inactive fentanyl 25 mcg/hr transdermal patch RxNorm: 323156 1 TD q 3 days No Start Date 07/17/2015 Inactive lisinopril 20 mg tablet RxNorm: 911683 1 Tablet(s) PO daily No Start Date 02/24/2016 Inactive hydrocodone 5 mg-acetaminophen 325 mg tablet RxNorm: 169609 1 Tablet(s) PO Q6 as needed No Start Date 07/17/2015 Inactive citalopram 40 mg tablet RxNorm: 089315 1 Tablet(s) PO daily No Start Date 03/03/2016 Inactive hyoscyamine 0.125 mg disintegrating tablet RxNorm: 0460706 1-2 Tablet(s) PO Q8 as needed No [...] Item Item Code Result Date Culture Urine [id number] URINE CULTURE SEE NOTES 09/21/2016 Culture Urine [id number] Continued Results 09/21/2016 Urine Culture Ucult Complete [...] 32.4 pg 07/30/2016 Cbc With Differential Ord2 [place]% 7.2 % 07/30/2016 Cbc With Differential Ord2 [...] 2.69 K/ul 07/30/2016 Cbc With Differential Ord2 [place] ABS# 0.5 K/ul 07/30/2016 Cbc With Differential Ord2 Eos ABS# 0.5 K/ul 07/30/2016 Cbc With Differential Ord2 Baso ABS# 0.0 K/ul 07/30/2016 Comp Metabolic Xfg608 NA 141 mEq/L 07/30/2016 Comp Metabolic Dtr588 K 4.3 mEq/L 07/30/2016 Comp Metabolic Xkw472 CL 100 mEq/L 07/30/2016 Comp Metabolic Llz040 CO2 33.0 mEq/L 07/30/2016 Comp Metabolic Ceo055 ANION GAP 12 07/30/2016 Comp Metabolic Ore559 GLUCOSE 64 mg/dL 07/30/2016 Comp Metabolic Fys393 Creat 0.5 mg/dL 07/30/2016 Comp Metabolic Vgz074 eGFR 126 ml/min/1.73m2 07/30/2016 Comp Metabolic Pse045 BUN 25 mg/dL 07/30/2016 Comp Metabolic Xsi087 B/C Ratio 48.1 Ratio 07/30/2016 Comp Metabolic Voh675 CALCIUM 8.9 mg/dL 07/30/2016 Comp Metabolic Vyd768 ALK PHOS 90 U/L 07/30/2016 Comp Metabolic Pbi293 AST(SGOT) 22 U/L 07/30/2016 Comp Metabolic Lcb670 ALT(SGPT) 36 U/L 07/30/2016 Comp Metabolic Ibu512 BILI T 0.3 mg/dL 07/30/2016 Comp Metabolic Ppp220 ALBUMIN 3.4 g/dL 07/30/2016 Comp Metabolic Tca582 TPRO 6.0 g/dL 07/30/2016 Comp Metabolic Lgr176 GLOB 2.7 g/dL 07/30/2016 Comp Metabolic Thj891 A/G Ratio 1.3 Ratio 07/30/2016 Comp Metabolic Ply511 Osmo 284 mOsmo 07/30/2016 A1C Frequency Nzo506 A1CF 26833-3 Last A1C performed at [facility] [place] [facility] on: 05-12-2016 07/30/2016 %Hba1C Iwd278 % HbA1c 43896- 6 5.2 % 05/12/2016 %Hba1C Mwe945 Gluc Ave 103 mg/dL 05/12/2016 Culture Urine [id number] URINE CULTURE SEE NOTES 05/11/2016 Urine Culture [...] U-Com Culture to follow 05/06/2016 Culture Urine [id number] URINE CULTURE SEE NOTES 03/17/2016 Culture Urine [id number] Continued Results 03/17/2016 Urine Culture Ucult Complete [...] 32.0 pg 02/11/2016 Cbc With Differential Ord2 [place]% 9.1 % 02/11/2016 Cbc With Differential Ord2 [...] 2.59 K/ul 02/11/2016 Cbc With Differential Ord2 [place] ABS# 0.6 K/ul 02/11/2016 Cbc With Differential Ord2 Eos ABS# 0.3 K/ul 02/11/2016 Cbc With Differential Ord2 Baso ABS# 0.0 K/ul 02/11/2016 Comp Metabolic Omv610 NA 137 mEq/L 02/11/2016 Comp Metabolic Rqi972 K 4.4 mEq/L 02/11/2016 Comp Metabolic Ouy858 CL 100 mEq/L 02/11/2016 Comp Metabolic Qls837 CO2 25.0 mEq/L 02/11/2016 Comp Metabolic Ume672 ANION GAP 16 02/11/2016 Comp Metabolic Nfz274 GLUCOSE 99 mg/dL 02/11/2016 Comp Metabolic Lbo940 Creat 0.6 mg/dL 02/11/2016 Comp Metabolic Mni710 eGFR 99 ml/min/1.73m2 02/11/2016 Comp Metabolic Sdd678 BUN 27 mg/dL 02/11/2016 Comp Metabolic Gya273 B/C Ratio 42.2 Ratio 02/11/2016 Comp Metabolic Kss944 CALCIUM 9.2 mg/dL 02/11/2016 Comp Metabolic Nzw838 ALK PHOS 74 U/L 02/11/2016 Comp Metabolic Hmk445 AST(SGOT) 24 U/L 02/11/2016 Comp Metabolic Ggs385 ALT(SGPT) 26 U/L 02/11/2016 Comp Metabolic Mlo695 BILI T 0.5 mg/dL 02/11/2016 Comp Metabolic Txe934 ALBUMIN 3.5 g/dL 02/11/2016 Comp Metabolic Hnq708 TPRO 6.2 g/dL 02/11/2016 Comp Metabolic Yaz423 GLOB 2.7 g/dL 02/11/2016 Comp Metabolic Hcu434 A/G Ratio 1.3 Ratio 02/11/2016 Comp Metabolic Pmg148 Osmo 279 mOsmo 02/11/2016 Review of Systems [...] Date PRESCRIP TRANSMIT VIA ERX SY CPT-4: [id number] 06/17/2015 Vital Signs Date Vital 07/18/2015 Blood Pressure 1: 128/86 Code: 8480-6 BMI: 31.4 Code: 80774-5 Heart Rate 1: 72 bpm Height: 5'1" Weight: 166 lbs 06/17/2015 Blood Pressure 1: 110/78 Code: 8480-6 BMI: 33.3 Code: 02924-6 Heart Rate 1: 74 bpm Height: 5'1" [...] Encounters Encounter Performer Location Codes Date () 15883 EST. 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] Diagnosis: 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] Diagnosis: Dysphagia following cerebral infarction[ICD10: I69.391] 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] Diagnosis: Candidal esophagitis[ICD10: B37.81] [facility] CPT- 4: 57903 06/17/2015 Plan of Care Planned Activity Notes [...] Follow up weight in 1 month Neck ugfa-aidixxslcfu-Qwow PT focus neck/upper body Right earache-cerumen removed with water pick today in the office 07/18/2015 Appointment: (30 min) Complex 07/18/2015 Patient Education: Patient Medication Summary Completed 07/18/2015 Patient Education: Obesity Completed 07/18/2015 Patient Education: .Cervicalgia Neck Pain Completed 07/18/2015 [facility] WPtel: [phone] Referral Completed 06/25/2015 Visit Plan: Hypertension [...] assure normal liver response to medications.referral to [facility] therapy for post stroke - left sided weakness, neck stiffness, upper extremity weaknessDiabetes Mellitus - controlled - per family report - check labs this week, get report from and [facility].I spent over an hour with the patient in direct contact. 06/17/2015 Appointment: Vonda [facility]rett WPtel: [address] [place] [address] New Patient 06/17/2015 Patient Education: Patient Medication Summary Completed 06/17/2015 Patient Education: Obesity Completed 06/17/2015 Patient Education: Hypertension Completed 06/17/2015 Care Plan: Referral Order SNOMED-CT : [id number] Ordered 06/17/2015 Referral: [facility] physical therapy WPtel: [phone] Referral Appointment Requested Instructions Comment . [...] normal liver response to medications. [facility] - left sided weakness, neck stiffness, upper extremity weakness Diabetes Mellitus - controlled - per family report - check labs this week, get report from and [facility]. I spent over an hour with the patient in direct contact. Add 1 scoop of whey protein from [facility] to 2 feedings per day . Hypertension [...] Follow up weight in 1 month Neck qoea-qhpwfjesint-Atzh PT focus neck/upper body Right earache-cerumen removed with water pick today in the office
--- OUTSIDE RECORDS SUMMARY | 2018-08-09 10:39 | XMS REPORT | CCD ---
Author Author [facility] Organization [facility] Address [address] [place] [address] Phone Care Team Providers Care Concrete Spreader Name Role Phone PP Unavailable CCM Unavailable Summary Purpose Interface Exchange Insurance Providers Payer name Policy type / Coverage type Covered alliance party ID Effective Begin Date Effective End Date WPS Medicare Part B Medicare Part B [id number] Unknown Unknown [place] [employer] Insurance Medicare Part B [id number] Unknown Unknown Family history Father Diagnosis Age [...] Unknown Retired 06/17/[address]: 0593057 Quit over 10 years ago 15+ 06/17/[address]: 996228582 Never drinks alcohol 06/17/2015 Allergies, Adverse Reactions, [...] Stop Date Status Fill Instructions hyoscyamine 0.125 mg/5 mL oral elixir RxNorm: 5701174 5 Milliliter(s) PO TID 09/08/2016 09/17/2016 Inactive hyoscyamine 0.125 mg/5 mL oral elixir RxNorm: 2129388 5 Milliliter(s) PO TID 09/08/2016 09/07/2016 Inactive hyoscyamine 0.125 mg disintegrating tablet RxNorm: 7426740 1-2 Tablet(s) PO Q8 as needed 09/07/2016 01/04/2017 Active fentanyl 100 mcg/hr transdermal patch RxNorm: 518678 1 Patch TD Q72H 09/01/2016 09/30/2016 Active ranitidine 150 mg tablet RxNorm: 405639 1 Tablet(s) PO BID 08/25/2016 No Stop Date Active hydrocodone 10 mg-acetaminophen 325 mg tablet RxNorm: 942299 1 Tablet(s) PO scheduled BID et Q6 hours as needed 08/24/2016 09/22/2016 Active cyanocobalamin (vit B-12) 1,000 mcg tablet RxNorm: 202006 1 Tablet(s) PO daily 08/12/2016 11/09/2016 Active cyanocobalamin (vit B-12) 1,000 mcg tablet RxNorm: 935889 1 Tablet(s) PO daily 08/12/2016 08/11/2016 Inactive hydrocodone 10 mg-acetaminophen 325 mg tablet RxNorm: 546677 1-2 Tablet(s) PO Q6 as needed 08/03/2016 08/17/2016 Inactive fentanyl 100 mcg/hr transdermal patch RxNorm: 062007 1 Patch TD Q72H 08/03/2016 08/31/2016 Inactive nystatin 100,000 unit/gram topical powder RxNorm: 500150 APPLY UNDER BREASTS TWICE DAILY FOR YEAST SKIN INFECTION AND APPLY TO UNDERARM AND ABDOMINAL FOLDS AND PERIAREA TWICE DAILY 07/17/2016 09/14/2016 Inactive 07/17/2016 3:56:54 PM fentanyl 100 mcg/hr transdermal patch RxNorm: 111537 1 Patch TD Q72H 07/15/2016 08/02/2016 Inactive lisinopril 20 mg tablet RxNorm: 260494 1 Tablet(s) PO daily 07/02/2016 03/28/2017 Active hydrocodone 10 mg-acetaminophen 325 mg tablet RxNorm: 542494 1-2 Tablet(s) PO Q6 as needed 07/01/2016 07/15/2016 Inactive Xarelto 20 mg tablet RxNorm: 8365313 Tablet(s) TAKE 1 TABLET VIA PEG TUBE AT BEDTIME 06/19/2016 01/14/2017 Active fentanyl 100 mcg/hr transdermal patch RxNorm: 004743 1 Patch TD Q72H 06/17/2016 07/14/2016 Inactive nystatin 100,000 unit/gram topical powder RxNorm: 849944 APPLY TO UNDER BREASTS TWICE DAILY FOR YEAST SKIN INFECTION AND APPLY TO UNDERARM AND ABDOMINAL FOLDS AND PERIAREA TWICE DAILY 06/15/2016 07/16/2016 Inactive Generic For:MYCOSTATIN 100,000 UNITS/GM PW 06/15/2016 12:28:26 PM fentanyl 100 mcg/hr transdermal patch RxNorm: 116609 1 Patch TD Q72H 06/05/2016 06/16/2016 Inactive hydrocodone 10 mg-acetaminophen 325 mg tablet RxNorm: 599145 1-2 Tablet(s) PO Q6 as needed 06/02/2016 06/16/2016 Inactive Probiotic Blend 2 million cell-50 mg capsule RxNorm: 1 Capsule(s) PO BID 05/13/2016 05/19/2016 Inactive nitrofurantoin 100 mg capsule RxNorm: 377069 1 Capsule(s) PO BID 05/13/2016 05/19/2016 Inactive nitrofurantoin 100 mg capsule RxNorm: 439593 1 Capsule(s) PO BID 05/13/2016 05/12/2016 Inactive fentanyl 75 mcg/hr transdermal patch RxNorm: 564017 1 Patch TD Q72H 05/13/2016 06/04/2016 Inactive Keflex 500 mg capsule RxNorm: 569665 1 Capsule(s) PO TID 05/07/2016 05/13/2016 Inactive Patient at F Keflex 500 mg capsule RxNorm: 004286 1 Capsule(s) PO TID 05/07/2016 05/06/2016 Inactive hydrocodone 10 mg-acetaminophen 325 mg tablet RxNorm: 037665 1-2 Tablet(s) PO Q6 as needed 05/04/2016 06/01/2016 Inactive hydrochlorothiazide 25 mg tablet RxNorm: 495876 Tablet(s) GIVE 1 TABLET VIA PEG TUBE ONCE A DAY 04/29/2016 11/24/2016 Active hydrochlorothiazide 25 mg tablet RxNorm: 164502 GIVE 1 TABLET VIA PEG TUBE ONCE A DAY 04/22/2016 04/28/2016 Inactive Generic For:HYDRODIURIL 25 MG TABLET refill request fentanyl 75 mcg/hr transdermal patch RxNorm: 521103 1 Patch TD Q72H 04/17/2016 05/12/2016 Inactive Xarelto 20 mg tablet RxNorm: 7076732 TAKE 1 TABLET VIA PEG TUBE AT BEDTIME 04/16/2016 06/14/2016 Inactive 04/16/2016 9:08:52 AM citalopram 40 mg tablet RxNorm: 890434 1 Tablet(s) PO daily 04/02/2016 02/25/2017 Active citalopram 40 mg tablet RxNorm: 090064 1 Tablet(s) PO daily 03/27/2016 04/01/2016 Inactive hydrocodone 10 mg-acetaminophen 325 mg tablet RxNorm: 919497 1-2 Tablet(s) PO Q6 as needed 03/27/2016 04/25/2016 Inactive fentanyl 75 mcg/hr transdermal patch RxNorm: 500526 1 Patch TD Q72H 03/18/2016 04/16/2016 Inactive hydrocodone 10 mg-acetaminophen 325 mg tablet RxNorm: 475387 1-2 Tablet(s) PO Q6 as needed 03/11/2016 03/26/2016 Inactive citalopram 40 mg tablet RxNorm: 067946 1 Tablet(s) PO daily 03/04/2016 03/26/2016 Inactive Levemir FlexTouch 100 unit/mL (3 mL) subcutaneous insulin pen RxNorm: 817993 20 Unit(s) SQ BID 03/02/2016 09/27/2016 Active lisinopril 20 mg tablet RxNorm: 911702 1 Tablet(s) PO daily 02/25/2016 07/01/2016 Inactive Ativan 0.5 mg tablet RxNorm: 442159 1 Tablet(s) PO Q4H as needed 02/18/2016 No Stop Date Active Xarelto 20 mg tablet RxNorm: 6179606 TAKE 1 TABLET VIA PEG TUBE AT BEDTIME 02/12/2016 04/11/2016 Inactive 02/12/2016 9:08:22 AM hydrocodone 10 mg-acetaminophen 325 mg tablet RxNorm: 279087 1-2 Tablet(s) PO Q6 as needed 02/12/2016 03/10/2016 Inactive fentanyl 75 mcg/hr transdermal patch RxNorm: 003006 1 Patch TD Q72H 02/11/2016 03/11/2016 Inactive citalopram 20 mg tablet RxNorm: 575111 1 Tablet(s) PO daily 01/28/2016 03/03/2016 Inactive fentanyl 75 mcg/hr transdermal patch RxNorm: 131795 1 TD Q72H 01/17/2016 02/10/2016 Inactive hydrocodone 10 mg-acetaminophen 325 mg tablet RxNorm: 676801 1-2 Tablet(s) PO Q6 as needed 01/07/2016 02/05/2016 Inactive fentanyl 50 mcg/hr transdermal patch RxNorm: 601611 1 TD Q72H 01/01/2016 01/16/2016 Inactive fentanyl 50 mcg/hr transdermal patch RxNorm: 873062 1 TD q 3 days 12/26/2015 12/31/2015 Inactive Xarelto 20 mg tablet RxNorm: 3011236 TAKE 1 TABLET VIA PEG TUBE AT BEDTIME 12/17/2015 02/11/2016 Inactive 12/16/2015 3:27:57 PM12/14/2015 9:45:17 AM hydrocodone 10 mg-acetaminophen 325 mg tablet RxNorm: 293135 1-2 Tablet(s) PO Q6 as needed 12/06/2015 01/04/2016 Inactive fentanyl 50 mcg/hr transdermal patch RxNorm: 447931 1 TD q 3 days 12/06/2015 12/25/2015 Inactive fentanyl 25 mcg/hr transdermal patch RxNorm: 174039 1 TD q 3 days 11/18/2015 12/05/2015 Inactive Zithromax Z-Eliu 250 mg tablet RxNorm: 089001 1 Tablet(s) PO UD 10/09/2015 02/26/2016 Inactive z pack as directed- please write out instructions- pt at [facility] nystatin 100,000 unit/gram topical powder RxNorm: 997753 APPLY TO UNDER BREASTS TWICE DAILY FOR YEAST SKIN INFECTION AND APPLY TO UNDERARM AND ABDOMINAL FOLDS AND PERIAREA TWICE DAILY 10/07/2015 12/05/2015 Inactive Generic For:MYCOSTATIN 100,000 UNITS/GM PW 10/05/2015 12:07:35 PM fentanyl 25 mcg/hr transdermal patch RxNorm: 228608 1 TD q 3 days 10/03/2015 11/01/2015 Inactive fentanyl 25 mcg/hr transdermal patch RxNorm: 016785 1 TD q 3 days 09/27/2015 10/02/2015 Inactive fentanyl 25 mcg/hr transdermal patch RxNorm: 760196 1 TD q 3 days 09/17/2015 09/26/2015 Inactive fentanyl 25 mcg/hr transdermal patch RxNorm: 452210 1 TD q 3 days 08/30/2015 09/16/2015 Inactive hydrocodone 5 mg-acetaminophen 325 mg tablet RxNorm: 286157 1 Tablet(s) PO Q6 as needed 08/30/2015 09/28/2015 Inactive Diflucan 100 mg tablet RxNorm: 798160 1 Tablet(s) Miscellaneous per peg daily 07/29/2015 08/04/2015 Inactive fentanyl 25 mcg/hr transdermal patch RxNorm: 841404 1 TD q 3 days 07/18/2015 08/29/2015 Inactive hydrocodone 5 mg-acetaminophen 325 mg tablet RxNorm: 407328 1 Tablet(s) PO Q6 as needed 07/18/2015 08/29/2015 Inactive Diflucan 100 mg tablet RxNorm: 922097 1 Tablet(s) Miscellaneous per peg daily 06/17/2015 06/23/2015 Inactive baclofen 10 mg tablet RxNorm: 642021 1 Tablet(s) PO TID No Start Date Active carvedilol 3.125 mg tablet RxNorm: 787703 1 Tablet(s) PO daily No Start Date Active pravastatin 40 mg tablet RxNorm: 614886 Tablet(s) PO daily No Start Date Active Ativan 0.5 mg tablet RxNorm: 644494 1 Tablet(s) PO Q4H as needed No Start Date 02/17/2016 Inactive ranitidine 150 mg tablet RxNorm: 673803 1 Tablet(s) PO daily No Start Date 08/24/2016 Inactive citalopram 40 mg tablet RxNorm: 973129 1 Tablet(s) PO daily No Start Date 01/27/2016 Inactive Probiotic Blend oral RxNorm: oral No Start Date 05/12/2016 Inactive hydrochlorothiazide 25 mg tablet RxNorm: 850553 1 Tablet(s) PO daily No Start Date 04/21/2016 Inactive Levemir FlexTouch 100 unit/mL (3 mL) subcutaneous insulin pen RxNorm: 817264 10 Unit(s) SQ BID No Start Date 03/01/2016 Inactive Zithromax Z-Eliu 250 mg tablet RxNorm: 060803 1 Tablet(s) PO UD No Start Date 10/08/2015 Inactive z pack as directed- please write out instructions- pt at [facility] nystatin 100,000 unit/gram topical powder RxNorm: 791211 Gram(s) TOP BID as needed No Start Date 10/06/2015 Inactive Xarelto 20 mg tablet RxNorm: 4466546 1 Tablet(s) PO daily No Start Date 12/16/2015 Inactive fentanyl 25 mcg/hr transdermal patch RxNorm: 453799 1 TD q 3 days No Start Date 07/17/2015 Inactive lisinopril 20 mg tablet RxNorm: 246727 1 Tablet(s) PO daily No Start Date 02/24/2016 Inactive hydrocodone 5 mg-acetaminophen 325 mg tablet RxNorm: 195815 1 Tablet(s) PO Q6 as needed No Start Date 07/17/2015 Inactive citalopram 40 mg tablet RxNorm: 424147 1 Tablet(s) PO daily No Start Date 03/03/2016 Inactive hyoscyamine 0.125 mg disintegrating tablet RxNorm: 2838164 1-2 Tablet(s) PO Q8 as needed No [...] 32.4 pg 07/30/2016 Cbc With Differential Ord2 Maverick% 7.2 % 07/30/2016 Cbc With Differential Ord2 [...] 2.69 K/ul 07/30/2016 Cbc With Differential Ord2 Maverick ABS# 0.5 K/ul 07/30/2016 Cbc With Differential Ord2 Eos ABS# 0.5 K/ul 07/30/2016 Cbc With Differential Ord2 Baso ABS# 0.0 K/ul 07/30/2016 Comp Metabolic Wbo715 NA 141 mEq/L 07/30/2016 Comp Metabolic Bfz650 K 4.3 mEq/L 07/30/2016 Comp Metabolic Woo307 CL 100 mEq/L 07/30/2016 Comp Metabolic Sfo464 CO2 33.0 mEq/L 07/30/2016 Comp Metabolic Kwu400 ANION GAP 12 07/30/2016 Comp Metabolic Dda165 GLUCOSE 64 mg/dL 07/30/2016 Comp Metabolic Pbc763 Creat 0.5 mg/dL 07/30/2016 Comp Metabolic Qcd285 eGFR 126 ml/min/1.73m2 07/30/2016 Comp Metabolic Ixk708 BUN 25 mg/dL 07/30/2016 Comp Metabolic Xam369 B/C Ratio 48.1 Ratio 07/30/2016 Comp Metabolic Kxn965 CALCIUM 8.9 mg/dL 07/30/2016 Comp Metabolic Qxm063 ALK PHOS 90 U/L 07/30/2016 Comp Metabolic Srs672 AST(SGOT) 22 U/L 07/30/2016 Comp Metabolic Jum900 ALT(SGPT) 36 U/L 07/30/2016 Comp Metabolic Thx664 BILI T 0.3 mg/dL 07/30/2016 Comp Metabolic Qro397 ALBUMIN 3.4 g/dL 07/30/2016 Comp Metabolic Mtg932 TPRO 6.0 g/dL 07/30/2016 Comp Metabolic Krp689 GLOB 2.7 g/dL 07/30/2016 Comp Metabolic Lqq070 A/G Ratio 1.3 Ratio 07/30/2016 Comp Metabolic Mtf748 Osmo 284 mOsmo 07/30/2016 A1C Frequency Clk315 A1CF 66866-4 Last A1C performed at [facility] on: 05-12-2016 07/30/2016 %Hba1C Qok968 % HbA1c 87695- 6 5.2 % 05/12/2016 %Hba1C Own462 Gluc Ave 103 mg/dL 05/12/2016 Culture Urine [id number] URINE CULTURE SEE NOTES 05/11/2016 Urine Culture [...] U-Com Culture to follow 05/06/2016 Culture Urine [id number] URINE CULTURE SEE NOTES 03/17/2016 Culture Urine [id number] Continued Results 03/17/2016 Urine Culture Ucult Complete [...] 101.2 fl 02/11/2016 Cbc With Differential Ord2 MCH 32.0 pg 02/11/2016 Cbc With Differential Ord2 Maverick% 9.1 % 02/11/2016 Cbc With Differential Ord2 [...] 2.59 K/ul 02/11/2016 Cbc With Differential Ord2 [place] ABS# 0.6 K/ul 02/11/2016 Cbc With Differential Ord2 Eos ABS# 0.3 K/ul 02/11/2016 Cbc With Differential Ord2 Baso ABS# 0.0 K/ul 02/11/2016 Comp Metabolic Ssc316 NA 137 mEq/L 02/11/2016 Comp Metabolic Dhs437 K 4.4 mEq/L 02/11/2016 Comp Metabolic Wqb081 CL 100 mEq/L 02/11/2016 Comp Metabolic Ejz694 CO2 25.0 mEq/L 02/11/2016 Comp Metabolic Eyp912 ANION GAP 16 02/11/2016 Comp Metabolic Smm793 GLUCOSE 99 mg/dL 02/11/2016 Comp Metabolic Euh566 Creat 0.6 mg/dL 02/11/2016 Comp Metabolic Mbz102 eGFR 99 ml/min/1.73m2 02/11/2016 Comp Metabolic Crm526 BUN 27 mg/dL 02/11/2016 Comp Metabolic Tym827 B/C Ratio 42.2 Ratio 02/11/2016 Comp Metabolic Hsj674 CALCIUM 9.2 mg/dL 02/11/2016 Comp Metabolic Joy731 ALK PHOS 74 U/L 02/11/2016 Comp Metabolic Bvq498 AST(SGOT) 24 U/L 02/11/2016 Comp Metabolic Gpb219 ALT(SGPT) 26 U/L 02/11/2016 Comp Metabolic Ayv892 BILI T 0.5 mg/dL 02/11/2016 Comp Metabolic Ept066 ALBUMIN 3.5 g/dL 02/11/2016 Comp Metabolic Jou009 TPRO 6.2 g/dL 02/11/2016 Comp Metabolic Qin818 GLOB 2.7 g/dL 02/11/2016 Comp Metabolic Evm120 A/G Ratio 1.3 Ratio 02/11/2016 Comp Metabolic Una519 Osmo 279 mOsmo 02/11/2016 Review of Systems [...] Date PRESCRIP TRANSMIT VIA ERX SY CPT-4: [id number] 06/17/2015 Vital Signs Date Vital 07/18/2015 Blood Pressure 1: 128/86 Code: 8480-6 BMI: 31.4 Code: 44536-7 Heart Rate 1: 72 bpm Height: 5'1" Weight: 166 lbs 06/17/2015 Blood Pressure 1: 110/78 Code: 8480-6 BMI: 33.3 Code: 36939-0 Heart Rate 1: 74 bpm Height: 5'1" [...] Present Encounters Encounter Performer Location Codes Date ([id number]) 05952 EST. 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] Diagnosis: Ataxia following cerebral infarction[ICD10: I69.393] Diagnosis: 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] Diagnosis: Dysphagia following cerebral infarction[ICD10: I69.391] 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] Diagnosis: Candidal esophagitis[ICD10: B37.81] [facility] CPT- 4: 41045 06/17/2015 Plan of Care Planned Activity Notes [...] Follow up weight in 1 month Neck udae-gcpkpzzouba-Teua PT focus neck/upper body Right earache-cerumen removed with water pick today in the office 07/18/2015 Appointment: (30 min) Complex 07/18/2015 Patient Education: Patient Medication Summary Completed 07/18/2015 Patient Education: Obesity Completed 07/18/2015 Patient Education: .Cervicalgia Neck Pain Completed 07/18/2015 [id number] Referral Completed 06/25/2015 Visit Plan: Hypertension - [...] assure normal liver response to medications.referral to [facility] physical [facility] occupational therapy for post stroke - left sided weakness, neck stiffness, upper extremity weaknessDiabetes Mellitus - controlled - per family report - check labs this week, get report from [facility].I spent over an hour with the patient in direct contact. 06/17/2015 Appointment: Vonda Everett WPtel: [phone] New Patient 06/17/2015 Patient Education: Patient Medication Summary Completed 06/17/2015 Patient Education: Obesity Completed 06/17/2015 Patient Education: Hypertension Completed 06/17/2015 Care Plan: Referral Order SNOMED-CT : [id number] Ordered 06/17/2015 Referral: [facility] physical therapy WPtel: [phone] Referral Appointment Requested Instructions Comment . [...] liver response to medications. referral to [facility] physical [facility] occupational therapy for post stroke - left sided weakness, neck stiffness, upper extremity weakness Diabetes Mellitus - controlled - per family report - check labs this week, get report from [facility]. I spent over an hour with the patient in direct contact. Add 1 scoop of whey protein from [facility] to 2 feedings per day . [...] Follow up weight in 1 month Neck xqzf-etczpoejdtj-Kkwl PT focus neck/upper body Right earache-cerumen removed with water pick today in the office
--- OUTSIDE RECORDS SUMMARY | 2018-08-09 10:40 | XMS REPORT | CCD ---
Author Author [facility] Organization [facility] Address [address] [place] [address] Phone Care Team Providers Care Vacuum Conditioner Operator Name Role Phone PP Unavailable CCM Unavailable Summary Purpose Interface Exchange Insurance Providers Payer name Policy type / Coverage type Covered constitution party ID Effective Begin Date Effective End Date WPS Medicare Part B Medicare Part B [id number] Unknown Unknown [place] [employer] Life Insurance Medicare Part B [id number] Unknown Unknown Family history Father Diagnosis Age [...] Unknown Retired 06/17/[address]: 6598279 Quit over 10 years ago 15+ 06/17/[address]: 347362284 Never drinks alcohol 06/17/2015 Allergies, Adverse Reactions, Alerts Substance Reaction Codes Entered Date Inactivated Date Status MORPHINE SULFATE emesis RxNorm: 7052 06/17/2015 No Inactive Date Active Past Medical History Illness Codes Condition Status Onset Date Resolved Date Cervicalgia ICD-9: 723.1 ICD-10: M54.2 Active 07/17/2015 [...] Problems Condition Codes Effective Dates Condition Status Cervicalgia ICD-9: 723.1 ICD-10: M54.2 07/17/2015 Active [...] hyoscyamine 0.125 mg/5 mL oral elixir RxNorm: 5706387 5 Milliliter(s) PO TID 09/08/2016 09/17/2016 Inactive hyoscyamine 0.125 mg/5 mL oral elixir RxNorm: 8403267 5 Milliliter(s) PO TID 09/08/2016 09/07/2016 Inactive hyoscyamine 0.125 mg disintegrating tablet RxNorm: 2937986 1-2 Tablet(s) PO Q8 as needed 09/07/2016 01/04/2017 Active fentanyl 100 mcg/hr transdermal patch RxNorm: 128055 1 Patch TD Q72H 09/01/2016 09/30/2016 Active ranitidine 150 mg tablet RxNorm: 798014 1 Tablet(s) PO BID 08/25/2016 No Stop Date Active hydrocodone 10 mg-acetaminophen 325 mg tablet RxNorm: 814638 1 Tablet(s) PO scheduled BID et Q6 hours as needed 08/24/2016 09/22/2016 Active cyanocobalamin (vit B-12) 1,000 mcg tablet RxNorm: 303079 1 Tablet(s) PO daily 08/12/2016 11/09/2016 Active cyanocobalamin (vit B-12) 1,000 mcg tablet RxNorm: 297160 1 Tablet(s) PO daily 08/12/2016 08/11/2016 Inactive hydrocodone 10 mg-acetaminophen 325 mg tablet RxNorm: 590536 1-2 Tablet(s) PO Q6 as needed 08/03/2016 08/17/2016 Inactive fentanyl 100 mcg/hr transdermal patch RxNorm: 343645 1 Patch TD Q72H 08/03/2016 08/31/2016 Inactive nystatin 100,000 unit/gram topical powder RxNorm: 508327 APPLY UNDER BREASTS TWICE DAILY FOR YEAST SKIN INFECTION AND APPLY TO UNDERARM AND ABDOMINAL FOLDS AND PERIAREA TWICE DAILY 07/17/2016 09/14/2016 Inactive 07/17/2016 3:56:54 PM fentanyl 100 mcg/hr transdermal patch RxNorm: 136370 1 Patch TD Q72H 07/15/2016 08/02/2016 Inactive lisinopril 20 mg tablet RxNorm: 340300 1 Tablet(s) PO daily 07/02/2016 03/28/2017 Active hydrocodone 10 mg-acetaminophen 325 mg tablet RxNorm: 620310 1-2 Tablet(s) PO Q6 as needed 07/01/2016 07/15/2016 Inactive Xarelto 20 mg tablet RxNorm: 3239349 Tablet(s) TAKE 1 TABLET VIA PEG TUBE AT BEDTIME 06/19/2016 01/14/2017 Active fentanyl 100 mcg/hr transdermal patch RxNorm: 498706 1 Patch TD Q72H 06/17/2016 07/14/2016 Inactive nystatin 100,000 unit/gram topical powder RxNorm: 127635 APPLY TO UNDER BREASTS TWICE DAILY FOR YEAST SKIN INFECTION AND APPLY TO UNDERARM AND ABDOMINAL FOLDS AND PERIAREA TWICE DAILY 06/15/2016 07/16/2016 Inactive Generic For:MYCOSTATIN 100,000 UNITS/GM PW 06/15/2016 12:28:26 PM fentanyl 100 mcg/hr transdermal patch RxNorm: 535161 1 Patch TD Q72H 06/05/2016 06/16/2016 Inactive hydrocodone 10 mg-acetaminophen 325 mg tablet RxNorm: 611514 1-2 Tablet(s) PO Q6 as needed 06/02/2016 06/16/2016 Inactive Probiotic Blend 2 million cell-50 mg capsule RxNorm: 1 Capsule(s) PO BID 05/13/2016 05/19/2016 Inactive nitrofurantoin 100 mg capsule RxNorm: 847692 1 Capsule(s) PO BID 05/13/2016 05/19/2016 Inactive nitrofurantoin 100 mg capsule RxNorm: 037534 1 Capsule(s) PO BID 05/13/2016 05/12/2016 Inactive fentanyl 75 mcg/hr transdermal patch RxNorm: 158472 1 Patch TD Q72H 05/13/2016 06/04/2016 Inactive Keflex 500 mg capsule RxNorm: 498205 1 Capsule(s) PO TID 05/07/2016 05/13/2016 Inactive Patient at F Keflex 500 mg capsule RxNorm: 437086 1 Capsule(s) PO TID 05/07/2016 05/06/2016 Inactive hydrocodone 10 mg-acetaminophen 325 mg tablet RxNorm: 153939 1-2 Tablet(s) PO Q6 as needed 05/04/2016 06/01/2016 Inactive hydrochlorothiazide 25 mg tablet RxNorm: 626520 Tablet(s) GIVE 1 TABLET VIA PEG TUBE ONCE A DAY 04/29/2016 11/24/2016 Active hydrochlorothiazide 25 mg tablet RxNorm: 038738 GIVE 1 TABLET VIA PEG TUBE ONCE A DAY 04/22/2016 04/28/2016 Inactive Generic For:HYDRODIURIL 25 MG TABLET refill request fentanyl 75 mcg/hr transdermal patch RxNorm: 757042 1 Patch TD Q72H 04/17/2016 05/12/2016 Inactive Xarelto 20 mg tablet RxNorm: 1497406 TAKE 1 TABLET VIA PEG TUBE AT BEDTIME 04/16/2016 06/14/2016 Inactive 04/16/2016 9:08:52 AM citalopram 40 mg tablet RxNorm: 026100 1 Tablet(s) PO daily 04/02/2016 02/25/2017 Active citalopram 40 mg tablet RxNorm: 410779 1 Tablet(s) PO daily 03/27/2016 04/01/2016 Inactive hydrocodone 10 mg-acetaminophen 325 mg tablet RxNorm: 884824 1-2 Tablet(s) PO Q6 as needed 03/27/2016 04/25/2016 Inactive fentanyl 75 mcg/hr transdermal patch RxNorm: 864420 1 Patch TD Q72H 03/18/2016 04/16/2016 Inactive hydrocodone 10 mg-acetaminophen 325 mg tablet RxNorm: 689698 1-2 Tablet(s) PO Q6 as needed 03/11/2016 03/26/2016 Inactive citalopram 40 mg tablet RxNorm: 850262 1 Tablet(s) PO daily 03/04/2016 03/26/2016 Inactive Levemir FlexTouch 100 unit/mL (3 mL) subcutaneous insulin pen RxNorm: 541208 20 Unit(s) SQ BID 03/02/2016 09/27/2016 Active lisinopril 20 mg tablet RxNorm: 801151 1 Tablet(s) PO daily 02/25/2016 07/01/2016 Inactive Ativan 0.5 mg tablet RxNorm: 187494 1 Tablet(s) PO Q4H as needed 02/18/2016 No Stop Date Active Xarelto 20 mg tablet RxNorm: 0401046 TAKE 1 TABLET VIA PEG TUBE AT BEDTIME 02/12/2016 04/11/2016 Inactive 02/12/2016 9:08:22 AM hydrocodone 10 mg-acetaminophen 325 mg tablet RxNorm: 166185 1-2 Tablet(s) PO Q6 as needed 02/12/2016 03/10/2016 Inactive fentanyl 75 mcg/hr transdermal patch RxNorm: 849578 1 Patch TD Q72H 02/11/2016 03/11/2016 Inactive citalopram 20 mg tablet RxNorm: 276749 1 Tablet(s) PO daily 01/28/2016 03/03/2016 Inactive fentanyl 75 mcg/hr transdermal patch RxNorm: 715598 1 TD Q72H 01/17/2016 02/10/2016 Inactive hydrocodone 10 mg-acetaminophen 325 mg tablet RxNorm: 262387 1-2 Tablet(s) PO Q6 as needed 01/07/2016 02/05/2016 Inactive fentanyl 50 mcg/hr transdermal patch RxNorm: 509763 1 TD Q72H 01/01/2016 01/16/2016 Inactive fentanyl 50 mcg/hr transdermal patch RxNorm: 835363 1 TD q 3 days 12/26/2015 12/31/2015 Inactive Xarelto 20 mg tablet RxNorm: 1352789 TAKE 1 TABLET VIA PEG TUBE AT BEDTIME 12/17/2015 02/11/2016 Inactive 12/16/2015 3:27:57 PM12/14/2015 9:45:17 AM hydrocodone 10 mg-acetaminophen 325 mg tablet RxNorm: 596692 1-2 Tablet(s) PO Q6 as needed 12/06/2015 01/04/2016 Inactive fentanyl 50 mcg/hr transdermal patch RxNorm: 892522 1 TD q 3 days 12/06/2015 12/25/2015 Inactive fentanyl 25 mcg/hr transdermal patch RxNorm: 198708 1 TD q 3 days 11/18/2015 12/05/2015 Inactive Zithromax Z-Eliu 250 mg tablet RxNorm: 689846 1 Tablet(s) PO UD 10/09/2015 02/26/2016 Inactive z pack as directed- please write out instructions- pt at [facility] nystatin 100,000 unit/gram topical powder RxNorm: 611670 APPLY TO UNDER BREASTS TWICE DAILY FOR YEAST SKIN INFECTION AND APPLY TO UNDERARM AND ABDOMINAL FOLDS AND PERIAREA TWICE DAILY 10/07/2015 12/05/2015 Inactive Generic For:MYCOSTATIN 100,000 UNITS/GM PW 10/05/2015 12:07:35 PM fentanyl 25 mcg/hr transdermal patch RxNorm: 293964 1 TD q 3 days 10/03/2015 11/01/2015 Inactive fentanyl 25 mcg/hr transdermal patch RxNorm: 211609 1 TD q 3 days 09/27/2015 10/02/2015 Inactive fentanyl 25 mcg/hr transdermal patch RxNorm: 984496 1 TD q 3 days 09/17/2015 09/26/2015 Inactive fentanyl 25 mcg/hr transdermal patch RxNorm: 836982 1 TD q 3 days 08/30/2015 09/16/2015 Inactive hydrocodone 5 mg-acetaminophen 325 mg tablet RxNorm: 721428 1 Tablet(s) PO Q6 as needed 08/30/2015 09/28/2015 Inactive Diflucan 100 mg tablet RxNorm: 000340 1 Tablet(s) Miscellaneous per peg daily 07/29/2015 08/04/2015 Inactive fentanyl 25 mcg/hr transdermal patch RxNorm: 407657 1 TD q 3 days 07/18/2015 08/29/2015 Inactive hydrocodone 5 mg-acetaminophen 325 mg tablet RxNorm: 711815 1 Tablet(s) PO Q6 as needed 07/18/2015 08/29/2015 Inactive Diflucan 100 mg tablet RxNorm: 026650 1 Tablet(s) Miscellaneous per peg daily 06/17/2015 06/23/2015 Inactive baclofen 10 mg tablet RxNorm: 928483 1 Tablet(s) PO TID No Start Date Active carvedilol 3.125 mg tablet RxNorm: 230998 1 Tablet(s) PO daily No Start Date Active pravastatin 40 mg tablet RxNorm: 975429 Tablet(s) PO daily No Start Date Active Ativan 0.5 mg tablet RxNorm: 741936 1 Tablet(s) PO Q4H as needed No Start Date 02/17/2016 Inactive ranitidine 150 mg tablet RxNorm: 003254 1 Tablet(s) PO daily No Start Date 08/24/2016 Inactive citalopram 40 mg tablet RxNorm: 863808 1 Tablet(s) PO daily No Start Date 01/27/2016 Inactive Probiotic Blend oral RxNorm: oral No Start Date 05/12/2016 Inactive hydrochlorothiazide 25 mg tablet RxNorm: 350772 1 Tablet(s) PO daily No Start Date 04/21/2016 Inactive Levemir FlexTouch 100 unit/mL (3 mL) subcutaneous insulin pen RxNorm: 103295 10 Unit(s) SQ BID No Start Date 03/01/2016 Inactive Zithromax Z-Eliu 250 mg tablet RxNorm: 858164 1 Tablet(s) PO UD No Start Date 10/08/2015 Inactive z pack as directed- please write out instructions- pt at [facility] nystatin 100,000 unit/gram topical powder RxNorm: 599662 Gram(s) TOP BID as needed No Start Date 10/06/2015 Inactive Xarelto 20 mg tablet RxNorm: 7410759 1 Tablet(s) PO daily No Start Date 12/16/2015 Inactive fentanyl 25 mcg/hr transdermal patch RxNorm: 569164 1 TD q 3 days No Start Date 07/17/2015 Inactive lisinopril 20 mg tablet RxNorm: 341253 1 Tablet(s) PO daily No Start Date 02/24/2016 Inactive hydrocodone 5 mg-acetaminophen 325 mg tablet RxNorm: 962509 1 Tablet(s) PO Q6 as needed No Start Date 07/17/2015 Inactive citalopram 40 mg tablet RxNorm: 000309 1 Tablet(s) PO daily No Start Date 03/03/2016 Inactive hyoscyamine 0.125 mg disintegrating tablet RxNorm: 2295644 1-2 Tablet(s) PO Q8 as needed No Start Date 09/06/2016 Inactive Medication Administered No Medication Administered data Immunizations No Immunization data Assessments Condition Codes Effective Dates 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 ICD-9: [...] 43.9 % 07/30/2016 Cbc With Differential Ord2 Lymph% 41.3 % 07/30/2016 Cbc With Differential Ord2 MCV 99.4 fl 07/30/2016 Cbc With Differential Ord2 MCH 32.4 pg 07/30/2016 Cbc With Differential Ord2 [place]% 7.2 % 07/30/2016 Cbc With Differential Ord2 MCHC 32.6 pg 07/30/2016 Cbc With Differential Ord2 Eos% 7.4 % 07/30/2016 Cbc With Differential Ord2 Baso% 0.2 % 07/30/2016 Cbc With Differential Ord2 PLT 160 K/ul 07/30/2016 Cbc With Differential Ord2 RDW 12.1 % 07/30/2016 Cbc With Differential Ord2 Neut ABS# 2.86 K/ul 07/30/2016 Cbc With Differential Ord2 Lymph ABS# 2.69 K/ul 07/30/2016 Cbc With Differential Ord2 [place] ABS# 0.5 K/ul 07/30/2016 Cbc With Differential Ord2 Eos ABS# 0.5 K/ul 07/30/2016 Cbc With Differential Ord2 Baso ABS# 0.0 K/ul 07/30/2016 Comp Metabolic Gfs466 NA 141 mEq/L 07/30/2016 Comp Metabolic Qlt977 K 4.3 mEq/L 07/30/2016 Comp Metabolic Rsn342 CL 100 mEq/L 07/30/2016 Comp Metabolic Ukm456 CO2 33.0 mEq/L 07/30/2016 Comp Metabolic Pel895 ANION GAP 12 07/30/2016 Comp Metabolic Lho987 GLUCOSE 64 mg/dL 07/30/2016 Comp Metabolic Ldu893 Creat 0.5 mg/dL 07/30/2016 Comp Metabolic Bva590 eGFR 126 ml/min/1.73m2 07/30/2016 Comp Metabolic Ofm947 BUN 25 mg/dL 07/30/2016 Comp Metabolic Enj401 B/C Ratio 48.1 Ratio 07/30/2016 Comp Metabolic Ueo526 CALCIUM 8.9 mg/dL 07/30/2016 Comp Metabolic Lju117 ALK PHOS 90 U/L 07/30/2016 Comp Metabolic Blx376 AST(SGOT) 22 U/L 07/30/2016 Comp Metabolic Fkv432 ALT(SGPT) 36 U/L 07/30/2016 Comp Metabolic Wuz297 BILI T 0.3 mg/dL 07/30/2016 Comp Metabolic Huz065 ALBUMIN 3.4 g/dL 07/30/2016 Comp Metabolic Eud769 TPRO 6.0 g/dL 07/30/2016 Comp Metabolic Rza515 GLOB 2.7 g/dL 07/30/2016 Comp Metabolic Sof650 A/G Ratio 1.3 Ratio 07/30/2016 Comp Metabolic Ebc597 Osmo 284 mOsmo 07/30/2016 A1C Frequency Ogq997 A1CF 21023-9 Last A1C performed at [facility] on: 05-12-2016 07/30/2016 %Hba1C Zia589 % HbA1c 19646- 6 5.2 % 05/12/2016 %Hba1C Lno813 Gluc Ave 103 mg/dL 05/12/2016 Culture Urine [id number] URINE CULTURE SEE NOTES 05/11/2016 Urine Culture [...] Urinalysis Ord28 U-Yeast NEGATIVE 05/06/2016 Culture Urine [id number] URINE CULTURE SEE NOTES 03/17/2016 Culture Urine [id number] Continued Results 03/17/2016 Urine Culture Ucult Complete [...] U-VOL VOLUME SUFFICIENT (10mL) 03/12/2016 Urinalysis Ord28 U-Com Culture to follow 03/12/2016 Urinalysis Ord28 U-Yeast NEGATIVE 03/12/2016 Cbc With Differential Ord2 WBC 6.68 [...] 32.0 pg 02/11/2016 Cbc With Differential Ord2 [place]% 9.1 % 02/11/2016 Cbc With Differential Ord2 [...] 2.59 K/ul 02/11/2016 Cbc With Differential Ord2 [place] ABS# 0.6 K/ul 02/11/2016 Cbc With Differential Ord2 Eos ABS# 0.3 K/ul 02/11/2016 Cbc With Differential Ord2 Baso ABS# 0.0 K/ul 02/11/2016 Comp Metabolic Juc918 NA 137 mEq/L 02/11/2016 Comp Metabolic Etv917 K 4.4 mEq/L 02/11/2016 Comp Metabolic Pix832 CL 100 mEq/L 02/11/2016 Comp Metabolic Jyc151 CO2 25.0 mEq/L 02/11/2016 Comp Metabolic Xcl723 ANION GAP 16 02/11/2016 Comp Metabolic Dnc112 GLUCOSE 99 mg/dL 02/11/2016 Comp Metabolic Sgj613 Creat 0.6 mg/dL 02/11/2016 Comp Metabolic Gzd259 eGFR 99 ml/min/1.73m2 02/11/2016 Comp Metabolic Rrr482 BUN 27 mg/dL 02/11/2016 Comp Metabolic Ydq470 B/C Ratio 42.2 Ratio 02/11/2016 Comp Metabolic Bpr527 CALCIUM 9.2 mg/dL 02/11/2016 Comp Metabolic Jth277 ALK PHOS 74 U/L 02/11/2016 Comp Metabolic Ehi070 AST(SGOT) 24 U/L 02/11/2016 Comp Metabolic Pke806 ALT(SGPT) 26 U/L 02/11/2016 Comp Metabolic Xwp747 BILI T 0.5 mg/dL 02/11/2016 Comp Metabolic Xeo032 ALBUMIN 3.5 g/dL 02/11/2016 Comp Metabolic Bnp779 TPRO 6.2 g/dL 02/11/2016 Comp Metabolic Zfi037 GLOB 2.7 g/dL 02/11/2016 Comp Metabolic Jqu235 A/G Ratio 1.3 Ratio 02/11/2016 Comp Metabolic Scf021 Osmo 279 mOsmo 02/11/2016 Review of Systems [...] Date PRESCRIP TRANSMIT VIA ERX SY CPT-4: [id number] 06/17/2015 Vital Signs Date Vital 07/18/2015 Blood Pressure 1: 128/86 Code: 8480-6 BMI: 31.4 Code: 49271-9 Heart Rate 1: 72 bpm Height: 5'1" Weight: 166 lbs 06/17/2015 Blood Pressure 1: 110/78 Code: 8480-6 BMI: 33.3 Code: 43061-0 Heart Rate 1: 74 bpm Height: 5'1" [...] Present Encounters Encounter Performer Location Codes Date ( 12539 EST. 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] Diagnosis: Ataxia following cerebral infarction[ICD10: I69.393] Diagnosis: 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] Diagnosis: Dysphagia following cerebral infarction[ICD10: I69.391] 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] Diagnosis: Candidal esophagitis[ICD10: B37.81] Vonda Everett MD, [facility] CPT- 4: 72423 06/17/2015 Plan of Care Planned Activity Notes [...] Follow up weight in 1 month Neck [id number]-Tpft PT focus neck/upper body Right earache-cerumen removed with water pick today in the office 07/18/2015 Appointment: (30 min) Complex 07/18/2015 Patient Education: Patient Medication Summary Completed 07/18/2015 Patient Education: Obesity Completed 07/18/2015 Patient Education: .Cervicalgia Neck Pain Completed 07/18/2015 [facility] [phone] [id number] Ref[facility] Completed 06/25/2015 Visit Plan: Hypertension [...] assure normal liver response to medications.referral to [facility] physical and occupational therapy for post stroke - left sided weakness, neck stiffness, upper extremity weaknessDiabetes Mellitus - controlled - per family report - check labs this week, get report from [facility].I spent over an hour with the patient in direct contact. 06/17/2015 [facility] [phone] [facility] [facility] Patient 06/17/2015 Patient Education: Patient Medication Summary Completed 06/17/2015 Patient Education: Obesity Completed 06/17/2015 Patient Education: Hypertension Completed 06/17/2015 Care Plan: Referral Order SNOMED-CT : [id number] Ordered 06/17/2015 [facility] WPt[facility]: [phone] [facility] Referral Appointment Requested Instructions Comment . [...] normal liver response to medications. referral to [facility] physical and occupational therapy for post stroke - left sided weakness, neck stiffness, upper extremity weakness Diabetes Mellitus - controlled - per family report - check labs this week, get report from and [facility]. I spent over an hour with the [...] Follow up weight in 1 month Neck fzbn-vrcfxztcrll-Odfe PT focus neck/upper body Right earache-cerumen removed with water pick today in the office
--- OUTSIDE RECORDS SUMMARY | 2018-08-09 10:41 | XMS REPORT | CCD ---
Author Author [facility] Organization [facility] Address [address] [place] [address] Phone Care Team Providers Care Field Kiln Burner Name Role Phone PP Unavailable CCM Unavailable Summary Purpose Interface Exchange Insurance Providers Payer name Policy type / Coverage type Covered libertarian ID Effective Begin Date Effective End Date WPS Medicare Part B Medicare Part B [id number] Unknown Unknown Ukrainian Intermediate Life Insurance Medicare Part B [id number] Unknown Unknown Family history Father Diagnosis Age [...] Unknown Retired 06/17/[address]: 0871423 Quit over 10 years ago 15+ 06/17/[address]: 662929153 Never drinks alcohol 06/17/2015 Allergies, Adverse Reactions, [...] hyoscyamine 0.125 mg/5 mL oral elixir RxNorm: 5194092 5 Milliliter(s) PO TID 09/08/2016 09/17/2016 Active hyoscyamine 0.125 mg/5 mL oral elixir RxNorm: 5592613 5 Milliliter(s) PO TID 09/08/2016 09/07/2016 Inactive hyoscyamine 0.125 mg disintegrating tablet RxNorm: 6072074 1-2 Tablet(s) PO Q8 as needed 09/07/2016 01/04/2017 Active fentanyl 100 mcg/hr transdermal patch RxNorm: 219222 1 Patch TD Q72H 09/01/2016 09/30/2016 Active ranitidine 150 mg tablet RxNorm: 656117 1 Tablet(s) PO BID 08/25/2016 No Stop Date Active hydrocodone 10 mg-acetaminophen 325 mg tablet RxNorm: 777771 1 Tablet(s) PO scheduled BID et Q6 hours as needed 08/24/2016 09/22/2016 Active cyanocobalamin (vit B-12) 1,000 mcg tablet RxNorm: 510600 1 Tablet(s) PO daily 08/12/2016 11/09/2016 Active cyanocobalamin (vit B-12) 1,000 mcg tablet RxNorm: 487567 1 Tablet(s) PO daily 08/12/2016 08/11/2016 Inactive hydrocodone 10 mg-acetaminophen 325 mg tablet RxNorm: 391267 1-2 Tablet(s) PO Q6 as needed 08/03/2016 08/17/2016 Inactive fentanyl 100 mcg/hr transdermal patch RxNorm: 553285 1 Patch TD Q72H 08/03/2016 08/31/2016 Inactive nystatin 100,000 unit/gram topical powder RxNorm: 011378 APPLY UNDER BREASTS TWICE DAILY FOR YEAST SKIN INFECTION AND APPLY TO UNDERARM AND ABDOMINAL FOLDS AND PERIAREA TWICE DAILY 07/17/2016 09/14/2016 Active 07/17/2016 3:56:54 PM fentanyl 100 mcg/hr transdermal patch RxNorm: 860175 1 Patch TD Q72H 07/15/2016 08/02/2016 Inactive lisinopril 20 mg tablet RxNorm: 721463 1 Tablet(s) PO daily 07/02/2016 03/28/2017 Active hydrocodone 10 mg-acetaminophen 325 mg tablet RxNorm: 756663 1-2 Tablet(s) PO Q6 as needed 07/01/2016 07/15/2016 Inactive Xarelto 20 mg tablet RxNorm: 8648936 Tablet(s) TAKE 1 TABLET VIA PEG TUBE AT BEDTIME 06/19/2016 01/14/2017 Active fentanyl 100 mcg/hr transdermal patch RxNorm: 160119 1 Patch TD Q72H 06/17/2016 07/14/2016 Inactive nystatin 100,000 unit/gram topical powder RxNorm: 772445 APPLY TO UNDER BREASTS TWICE DAILY FOR YEAST SKIN INFECTION AND APPLY TO UNDERARM AND ABDOMINAL FOLDS AND PERIAREA TWICE DAILY 06/15/2016 07/16/2016 Inactive Generic For:MYCOSTATIN 100,000 UNITS/GM PW 06/15/2016 12:28:26 PM fentanyl 100 mcg/hr transdermal patch RxNorm: 279213 1 Patch TD Q72H 06/05/2016 06/16/2016 Inactive hydrocodone 10 mg-acetaminophen 325 mg tablet RxNorm: 804759 1-2 Tablet(s) PO Q6 as needed 06/02/2016 06/16/2016 Inactive Probiotic Blend 2 million cell-50 mg capsule RxNorm: 1 Capsule(s) PO BID 05/13/2016 05/19/2016 Inactive nitrofurantoin 100 mg capsule RxNorm: 124963 1 Capsule(s) PO BID 05/13/2016 05/19/2016 Inactive nitrofurantoin 100 mg capsule RxNorm: 418368 1 Capsule(s) PO BID 05/13/2016 05/12/2016 Inactive fentanyl 75 mcg/hr transdermal patch RxNorm: 883443 1 Patch TD Q72H 05/13/2016 06/04/2016 Inactive Keflex 500 mg capsule RxNorm: 796093 1 Capsule(s) PO TID 05/07/2016 05/13/2016 Inactive Patient at F Keflex 500 mg capsule RxNorm: 463759 1 Capsule(s) PO TID 05/07/2016 05/06/2016 Inactive hydrocodone 10 mg-acetaminophen 325 mg tablet RxNorm: 099576 1-2 Tablet(s) PO Q6 as needed 05/04/2016 06/01/2016 Inactive hydrochlorothiazide 25 mg tablet RxNorm: 391308 Tablet(s) GIVE 1 TABLET VIA PEG TUBE ONCE A DAY 04/29/2016 11/24/2016 Active hydrochlorothiazide 25 mg tablet RxNorm: 082642 GIVE 1 TABLET VIA PEG TUBE ONCE A DAY 04/22/2016 04/28/2016 Inactive Generic For:HYDRODIURIL 25 MG TABLET refill request fentanyl 75 mcg/hr transdermal patch RxNorm: 885974 1 Patch TD Q72H 04/17/2016 05/12/2016 Inactive Xarelto 20 mg tablet RxNorm: 3534391 TAKE 1 TABLET VIA PEG TUBE AT BEDTIME 04/16/2016 06/14/2016 Inactive 04/16/2016 9:08:52 AM citalopram 40 mg tablet RxNorm: 836242 1 Tablet(s) PO daily 04/02/2016 02/25/2017 Active citalopram 40 mg tablet RxNorm: 493856 1 Tablet(s) PO daily 03/27/2016 04/01/2016 Inactive hydrocodone 10 mg-acetaminophen 325 mg tablet RxNorm: 887032 1-2 Tablet(s) PO Q6 as needed 03/27/2016 04/25/2016 Inactive fentanyl 75 mcg/hr transdermal patch RxNorm: 529916 1 Patch TD Q72H 03/18/2016 04/16/2016 Inactive hydrocodone 10 mg-acetaminophen 325 mg tablet RxNorm: 969589 1-2 Tablet(s) PO Q6 as needed 03/11/2016 03/26/2016 Inactive citalopram 40 mg tablet RxNorm: 141326 1 Tablet(s) PO daily 03/04/2016 03/26/2016 Inactive Levemir FlexTouch 100 unit/mL (3 mL) subcutaneous insulin pen RxNorm: 742920 20 Unit(s) SQ BID 03/02/2016 09/27/2016 Active lisinopril 20 mg tablet RxNorm: 469302 1 Tablet(s) PO daily 02/25/2016 07/01/2016 Inactive Ativan 0.5 mg tablet RxNorm: 499187 1 Tablet(s) PO Q4H as needed 02/18/2016 No Stop Date Active Xarelto 20 mg tablet RxNorm: 9650781 TAKE 1 TABLET VIA PEG TUBE AT BEDTIME 02/12/2016 04/11/2016 Inactive 02/12/2016 9:08:22 AM hydrocodone 10 mg-acetaminophen 325 mg tablet RxNorm: 786953 1-2 Tablet(s) PO Q6 as needed 02/12/2016 03/10/2016 Inactive fentanyl 75 mcg/hr transdermal patch RxNorm: 545282 1 Patch TD Q72H 02/11/2016 03/11/2016 Inactive citalopram 20 mg tablet RxNorm: 578052 1 Tablet(s) PO daily 01/28/2016 03/03/2016 Inactive fentanyl 75 mcg/hr transdermal patch RxNorm: 357617 1 TD Q72H 01/17/2016 02/10/2016 Inactive hydrocodone 10 mg-acetaminophen 325 mg tablet RxNorm: 016312 1-2 Tablet(s) PO Q6 as needed 01/07/2016 02/05/2016 Inactive fentanyl 50 mcg/hr transdermal patch RxNorm: 591022 1 TD Q72H 01/01/2016 01/16/2016 Inactive fentanyl 50 mcg/hr transdermal patch RxNorm: 092226 1 TD q 3 days 12/26/2015 12/31/2015 Inactive Xarelto 20 mg tablet RxNorm: 9164968 TAKE 1 TABLET VIA PEG TUBE AT BEDTIME 12/17/2015 02/11/2016 Inactive 12/16/2015 3:27:57 PM12/14/2015 9:45:17 AM hydrocodone 10 mg-acetaminophen 325 mg tablet RxNorm: 327445 1-2 Tablet(s) PO Q6 as needed 12/06/2015 01/04/2016 Inactive fentanyl 50 mcg/hr transdermal patch RxNorm: 447697 1 TD q 3 days 12/06/2015 12/25/2015 Inactive fentanyl 25 mcg/hr transdermal patch RxNorm: 972920 1 TD q 3 days 11/18/2015 12/05/2015 Inactive Zithromax Z-Eliu 250 mg tablet RxNorm: 761863 1 Tablet(s) PO UD 10/09/2015 02/26/2016 Inactive z pack as directed- please write out instructions- pt at [facility] nystatin 100,000 unit/gram topical powder RxNorm: 048385 APPLY TO UNDER BREASTS TWICE DAILY FOR YEAST SKIN INFECTION AND APPLY TO UNDERARM AND ABDOMINAL FOLDS AND PERIAREA TWICE DAILY 10/07/2015 12/05/2015 Inactive Generic For:MYCOSTATIN 100,000 UNITS/GM PW 10/05/2015 12:07:35 PM fentanyl 25 mcg/hr transdermal patch RxNorm: 362913 1 TD q 3 days 10/03/2015 11/01/2015 Inactive fentanyl 25 mcg/hr transdermal patch RxNorm: 721656 1 TD q 3 days 09/27/2015 10/02/2015 Inactive fentanyl 25 mcg/hr transdermal patch RxNorm: 435933 1 TD q 3 days 09/17/2015 09/26/2015 Inactive fentanyl 25 mcg/hr transdermal patch RxNorm: 117880 1 TD q 3 days 08/30/2015 09/16/2015 Inactive hydrocodone 5 mg-acetaminophen 325 mg tablet RxNorm: 590328 1 Tablet(s) PO Q6 as needed 08/30/2015 09/28/2015 Inactive Diflucan 100 mg tablet RxNorm: 671852 1 Tablet(s) Miscellaneous per peg daily 07/29/2015 08/04/2015 Inactive fentanyl 25 mcg/hr transdermal patch RxNorm: 813116 1 TD q 3 days 07/18/2015 08/29/2015 Inactive hydrocodone 5 mg-acetaminophen 325 mg tablet RxNorm: 847942 1 Tablet(s) PO Q6 as needed 07/18/2015 08/29/2015 Inactive Diflucan 100 mg tablet RxNorm: 867067 1 Tablet(s) Miscellaneous per peg daily 06/17/2015 06/23/2015 Inactive baclofen 10 mg tablet RxNorm: 082685 1 Tablet(s) PO TID No Start Date Active carvedilol 3.125 mg tablet RxNorm: 544593 1 Tablet(s) PO daily No Start Date Active pravastatin 40 mg tablet RxNorm: 771123 Tablet(s) PO daily No Start Date Active Ativan 0.5 mg tablet RxNorm: 042925 1 Tablet(s) PO Q4H as needed No Start Date 02/17/2016 Inactive ranitidine 150 mg tablet RxNorm: 441660 1 Tablet(s) PO daily No Start Date 08/24/2016 Inactive citalopram 40 mg tablet RxNorm: 020809 1 Tablet(s) PO daily No Start Date 01/27/2016 Inactive Probiotic Blend oral RxNorm: oral No Start Date 05/12/2016 Inactive hydrochlorothiazide 25 mg tablet RxNorm: 145914 1 Tablet(s) PO daily No Start Date 04/21/2016 Inactive Levemir FlexTouch 100 unit/mL (3 mL) subcutaneous insulin pen RxNorm: 528884 10 Unit(s) SQ BID No Start Date 03/01/2016 Inactive Zithromax Z-Eliu 250 mg tablet RxNorm: 657496 1 Tablet(s) PO UD No Start Date 10/08/2015 Inactive z pack as directed- please write out instructions- pt at [facility] nystatin 100,000 unit/gram topical powder RxNorm: 414427 Gram(s) TOP BID as needed No Start Date 10/06/2015 Inactive Xarelto 20 mg tablet RxNorm: 4255387 1 Tablet(s) PO daily No Start Date 12/16/2015 Inactive fentanyl 25 mcg/hr transdermal patch RxNorm: 497344 1 TD q 3 days No Start Date 07/17/2015 Inactive lisinopril 20 mg tablet RxNorm: 766392 1 Tablet(s) PO daily No Start Date 02/24/2016 Inactive hydrocodone 5 mg-acetaminophen 325 mg tablet RxNorm: 313132 1 Tablet(s) PO Q6 as needed No Start Date 07/17/2015 Inactive citalopram 40 mg tablet RxNorm: 376582 1 Tablet(s) PO daily No Start Date 03/03/2016 Inactive hyoscyamine 0.125 mg disintegrating tablet RxNorm: 3539310 1-2 Tablet(s) PO Q8 as needed No [...] Observation Code Item Item Code Result Date A1C Frequency [id number] A1CF 77698-9 Last A1C performed at [facility] on: 05-12-2016 07/30/2016 Cbc With Differential Ord2 WBC 6.51 K/ul [...] 32.4 pg 07/30/2016 Cbc With Differential Ord2 Falls% 7.2 % 07/30/2016 Cbc With Differential Ord2 [...] 2.69 K/ul 07/30/2016 Cbc With Differential Ord2 Falls ABS# 0.5 K/ul 07/30/2016 Cbc With Differential Ord2 Eos ABS# 0.5 K/ul 07/30/2016 Cbc With Differential Ord2 Baso ABS# 0.0 K/ul 07/30/2016 Comp Metabolic Enn933 NA 141 mEq/L 07/30/2016 Comp Metabolic Ybu164 K 4.3 mEq/L 07/30/2016 Comp Metabolic Tmx349 CL 100 mEq/L 07/30/2016 Comp Metabolic Sle301 CO2 33.0 mEq/L 07/30/2016 Comp Metabolic Fwh183 ANION GAP 12 07/30/2016 Comp Metabolic Dew881 GLUCOSE 64 mg/dL 07/30/2016 Comp Metabolic Jxq933 Creat 0.5 mg/dL 07/30/2016 Comp Metabolic Rwc834 eGFR 126 ml/min/1.73m2 07/30/2016 Comp Metabolic Dan092 BUN 25 mg/dL 07/30/2016 Comp Metabolic Ixu210 B/C Ratio 48.1 Ratio 07/30/2016 Comp Metabolic Nea638 CALCIUM 8.9 mg/dL 07/30/2016 Comp Metabolic Ffd021 ALK PHOS 90 U/L 07/30/2016 Comp Metabolic Fsc580 AST(SGOT) 22 U/L 07/30/2016 Comp Metabolic Gln442 ALT(SGPT) 36 U/L 07/30/2016 Comp Metabolic Gmm766 BILI T 0.3 mg/dL 07/30/2016 Comp Metabolic Ims624 ALBUMIN 3.4 g/dL 07/30/2016 Comp Metabolic Zsl541 TPRO 6.0 g/dL 07/30/2016 Comp Metabolic Dyz613 GLOB 2.7 g/dL 07/30/2016 Comp Metabolic Yio677 A/G Ratio 1.3 Ratio 07/30/2016 Comp Metabolic Nmn516 Osmo 284 mOsmo 07/30/2016 %Hba1C Cnl187 % HbA1c 63589- 6 5.2 % 05/12/2016 %Hba1C Rhh340 Gluc Ave 103 mg/dL 05/12/2016 Culture Urine [id number] URINE CULTURE SEE NOTES 05/11/2016 Urine Culture [...] U-Com Culture to follow 05/06/2016 Culture Urine [id number] URINE CULTURE SEE NOTES 03/17/2016 Culture Urine [id number] Continued Results 03/17/2016 Urine Culture Ucult Complete [...] 32.0 pg 02/11/2016 Cbc With Differential Ord2 Falls% 9.1 % 02/11/2016 Cbc With Differential Ord2 [...] 2.59 K/ul 02/11/2016 Cbc With Differential Ord2 Falls ABS# 0.6 K/ul 02/11/2016 Cbc With Differential Ord2 Eos ABS# 0.3 K/ul 02/11/2016 Cbc With Differential Ord2 Baso ABS# 0.0 K/ul 02/11/2016 Comp Metabolic Ilf703 NA 137 mEq/L 02/11/2016 Comp Metabolic Lym019 K 4.4 mEq/L 02/11/2016 Comp Metabolic Kkc104 CL 100 mEq/L 02/11/2016 Comp Metabolic Wjs522 CO2 25.0 mEq/L 02/11/2016 Comp Metabolic Cui384 ANION GAP 16 02/11/2016 Comp Metabolic Sbo515 GLUCOSE 99 mg/dL 02/11/2016 Comp Metabolic Pma924 Creat 0.6 mg/dL 02/11/2016 Comp Metabolic Etr416 eGFR 99 ml/min/1.73m2 02/11/2016 Comp Metabolic Yrp994 BUN 27 mg/dL 02/11/2016 Comp Metabolic Hcg688 B/C Ratio 42.2 Ratio 02/11/2016 Comp Metabolic Kvi161 CALCIUM 9.2 mg/dL 02/11/2016 Comp Metabolic Byc088 ALK PHOS 74 U/L 02/11/2016 Comp Metabolic Qff323 AST(SGOT) 24 U/L 02/11/2016 Comp Metabolic Bhm266 ALT(SGPT) 26 U/L 02/11/2016 Comp Metabolic Rsy256 BILI T 0.5 mg/dL 02/11/2016 Comp Metabolic Cis222 ALBUMIN 3.5 g/dL 02/11/2016 Comp Metabolic Ywf314 TPRO 6.2 g/dL 02/11/2016 Comp Metabolic Suw358 GLOB 2.7 g/dL 02/11/2016 Comp Metabolic Amx187 A/G Ratio 1.3 Ratio 02/11/2016 Comp Metabolic Xel799 Osmo 279 mOsmo 02/11/2016 Review of Systems [...] Date PRESCRIP TRANSMIT VIA ERX SY CPT-4: [id number] 06/17/2015 Vital Signs Date Vital 07/18/2015 Blood Pressure 1: 128/86 Code: 8480-6 BMI: 31.4 Code: 00833-4 Heart Rate 1: 72 bpm Height: 5'1" Weight: 166 lbs 06/17/2015 Blood Pressure 1: 110/78 Code: 8480-6 BMI: 33.3 Code: 06804-8 Heart Rate 1: 74 bpm Height: 5'1" [...] Present Encounters Encounter Performer Location Codes Date ([id number]) 10665 EST. 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] Diagnosis: Ataxia following cerebral infarction[ICD10: I69.393] Diagnosis: 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] Diagnosis: Dysphagia following cerebral infarction[ICD10: I69.391] 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] Diagnosis: Candidal esophagitis[ICD10: B37.81] [facility] CPT- 4: 38354 06/17/2015 Plan of Care Planned Activity Notes [...] Follow up weight in 1 month Neck iwsq-wjldmvucwpd-Fvls PT focus neck/upper body Right earache-cerumen removed with water pick today in the office 07/18/2015 Appointment: (30 min) Complex 07/18/2015 Patient Education: Patient Medication Summary Completed 07/18/2015 Patient Education: Obesity Completed 07/18/2015 Patient Education: .Cervicalgia Neck Pain Completed 07/18/2015 [facility] WPtel: [address] [place], [place] [id number] Referral Completed 06/25/2015 Visit Plan: Hypertension - [...] assure normal liver response to medications.referral to [facility] for post stroke - left sided weakness, neck stiffness, upper extremity weaknessDiabetes Mellitus - controlled - per family report - check labs this week, get report from [facility].I spent over an hour with the patient in direct contact. 06/17/2015 Appointment: Vonda Everett WPtel: [phone] [id number] New Patient 06/17/2015 Patient Education: Patient Medication Summary Completed 06/17/2015 Patient Education: Obesity Completed 06/17/2015 Patient Education: Hypertension Completed 06/17/2015 Care Plan: Referral Order SNOMED-CT : [id number] Ordered 06/17/2015 [facility] [phone] [facility] Referral Appointment Requested Instructions Comment . Hypertension [...] normal liver response to medications. referral to [facility] occupational therapy for post stroke - left sided weakness, neck stiffness, upper extremity weakness Diabetes Mellitus - controlled - per family report - check labs this week, get report from [facility]. I spent over an hour [...] Follow up weight in 1 month Neck bnvv-pbggzcusuny-Zlkb PT focus neck/upper body Right earache-cerumen removed with water pick today in the office
--- OUTSIDE RECORDS SUMMARY | 2018-08-09 10:42 | XMS REPORT | CCD ---
Author Author [facility]rett Organization [facility] Address [address] [place] [address] Phone Care Team Providers Care Wax Pourer Name Role Phone PP Unavailable CCM Unavailable Summary Purpose Interface Exchange Insurance Providers Payer name Policy type / Coverage type Covered libertarian ID Effective Begin Date Effective End Date WPS Medicare Part B Medicare Part B [id number] Unknown Unknown [place] [employer] Insurance Medicare Part B [id number] Unknown Unknown Family history Father Diagnosis Age [...] Unknown Retired 06/17/[address]: 8134747 Quit over 10 years ago 15+ 06/17/[address]: 358174594 Never drinks alcohol 06/17/2015 Allergies, Adverse Reactions, [...] Instructions hyoscyamine 0.125 mg disintegrating tablet RxNorm: 5021900 1-2 Tablet(s) PO Q8 as needed 09/07/2016 01/04/2017 Active fentanyl 100 mcg/hr transdermal patch RxNorm: 853636 1 Patch TD Q72H 09/01/2016 09/30/2016 Active ranitidine 150 mg tablet RxNorm: 198290 1 Tablet(s) PO BID 08/25/2016 No Stop Date Active hydrocodone 10 mg-acetaminophen 325 mg tablet RxNorm: 154244 1 Tablet(s) PO scheduled BID et Q6 hours as needed 08/24/2016 09/22/2016 Active cyanocobalamin (vit B-12) 1,000 mcg tablet RxNorm: 987385 1 Tablet(s) PO daily 08/12/2016 11/09/2016 Active cyanocobalamin (vit B-12) 1,000 mcg tablet RxNorm: 667905 1 Tablet(s) PO daily 08/12/2016 08/11/2016 Inactive hydrocodone 10 mg-acetaminophen 325 mg tablet RxNorm: 197952 1-2 Tablet(s) PO Q6 as needed 08/03/2016 08/17/2016 Inactive fentanyl 100 mcg/hr transdermal patch RxNorm: 714760 1 Patch TD Q72H 08/03/2016 08/31/2016 Inactive nystatin 100,000 unit/gram topical powder RxNorm: 340086 APPLY UNDER BREASTS TWICE DAILY FOR YEAST SKIN INFECTION AND APPLY TO UNDERARM AND ABDOMINAL FOLDS AND PERIAREA TWICE DAILY 07/17/2016 09/14/2016 Active 07/17/2016 3:56:54 PM fentanyl 100 mcg/hr transdermal patch RxNorm: 165445 1 Patch TD Q72H 07/15/2016 08/02/2016 Inactive lisinopril 20 mg tablet RxNorm: 500124 1 Tablet(s) PO daily 07/02/2016 03/28/2017 Active hydrocodone 10 mg-acetaminophen 325 mg tablet RxNorm: 592629 1-2 Tablet(s) PO Q6 as needed 07/01/2016 07/15/2016 Inactive Xarelto 20 mg tablet RxNorm: 3525754 Tablet(s) TAKE 1 TABLET VIA PEG TUBE AT BEDTIME 06/19/2016 01/14/2017 Active fentanyl 100 mcg/hr transdermal patch RxNorm: 574914 1 Patch TD Q72H 06/17/2016 07/14/2016 Inactive nystatin 100,000 unit/gram topical powder RxNorm: 430235 APPLY TO UNDER BREASTS TWICE DAILY FOR YEAST SKIN INFECTION AND APPLY TO UNDERARM AND ABDOMINAL FOLDS AND PERIAREA TWICE DAILY 06/15/2016 07/16/2016 Inactive Generic For:MYCOSTATIN 100,000 UNITS/GM PW 06/15/2016 12:28:26 PM fentanyl 100 mcg/hr transdermal patch RxNorm: 137560 1 Patch TD Q72H 06/05/2016 06/16/2016 Inactive hydrocodone 10 mg-acetaminophen 325 mg tablet RxNorm: 247396 1-2 Tablet(s) PO Q6 as needed 06/02/2016 06/16/2016 Inactive Probiotic Blend 2 million cell-50 mg capsule RxNorm: 1 Capsule(s) PO BID 05/13/2016 05/19/2016 Inactive nitrofurantoin 100 mg capsule RxNorm: 549545 1 Capsule(s) PO BID 05/13/2016 05/19/2016 Inactive nitrofurantoin 100 mg capsule RxNorm: 416568 1 Capsule(s) PO BID 05/13/2016 05/12/2016 Inactive fentanyl 75 mcg/hr transdermal patch RxNorm: 135088 1 Patch TD Q72H 05/13/2016 06/04/2016 Inactive Keflex 500 mg capsule RxNorm: 939191 1 Capsule(s) PO TID 05/07/2016 05/13/2016 Inactive Patient at [facility] Keflex 500 mg capsule RxNorm: 928198 1 Capsule(s) PO TID 05/07/2016 05/06/2016 Inactive hydrocodone 10 mg-acetaminophen 325 mg tablet RxNorm: 704207 1-2 Tablet(s) PO Q6 as needed 05/04/2016 06/01/2016 Inactive hydrochlorothiazide 25 mg tablet RxNorm: 661677 Tablet(s) GIVE 1 TABLET VIA PEG TUBE ONCE A DAY 04/29/2016 11/24/2016 Active hydrochlorothiazide 25 mg tablet RxNorm: 357234 GIVE 1 TABLET VIA PEG TUBE ONCE A DAY 04/22/2016 04/28/2016 Inactive Generic For:HYDRODIURIL 25 MG TABLET refill request fentanyl 75 mcg/hr transdermal patch RxNorm: 198045 1 Patch TD Q72H 04/17/2016 05/12/2016 Inactive Xarelto 20 mg tablet RxNorm: 6150422 TAKE 1 TABLET VIA PEG TUBE AT BEDTIME 04/16/2016 06/14/2016 Inactive 04/16/2016 9:08:52 AM citalopram 40 mg tablet RxNorm: 892043 1 Tablet(s) PO daily 04/02/2016 02/25/2017 Active citalopram 40 mg tablet RxNorm: 615266 1 Tablet(s) PO daily 03/27/2016 04/01/2016 Inactive hydrocodone 10 mg-acetaminophen 325 mg tablet RxNorm: 990551 1-2 Tablet(s) PO Q6 as needed 03/27/2016 04/25/2016 Inactive fentanyl 75 mcg/hr transdermal patch RxNorm: 794545 1 Patch TD Q72H 03/18/2016 04/16/2016 Inactive hydrocodone 10 mg-acetaminophen 325 mg tablet RxNorm: 007064 1-2 Tablet(s) PO Q6 as needed 03/11/2016 03/26/2016 Inactive citalopram 40 mg tablet RxNorm: 961839 1 Tablet(s) PO daily 03/04/2016 03/26/2016 Inactive Levemir FlexTouch 100 unit/mL (3 mL) subcutaneous insulin pen RxNorm: 439702 20 Unit(s) SQ BID 03/02/2016 09/27/2016 Active lisinopril 20 mg tablet RxNorm: 306657 1 Tablet(s) PO daily 02/25/2016 07/01/2016 Inactive Ativan 0.5 mg tablet RxNorm: 304541 1 Tablet(s) PO Q4H as needed 02/18/2016 No Stop Date Active Xarelto 20 mg tablet RxNorm: 6848410 TAKE 1 TABLET VIA PEG TUBE AT BEDTIME 02/12/2016 04/11/2016 Inactive 02/12/2016 9:08:22 AM hydrocodone 10 mg-acetaminophen 325 mg tablet RxNorm: 618441 1-2 Tablet(s) PO Q6 as needed 02/12/2016 03/10/2016 Inactive fentanyl 75 mcg/hr transdermal patch RxNorm: 254764 1 Patch TD Q72H 02/11/2016 03/11/2016 Inactive citalopram 20 mg tablet RxNorm: 025089 1 Tablet(s) PO daily 01/28/2016 03/03/2016 Inactive fentanyl 75 mcg/hr transdermal patch RxNorm: 116366 1 TD Q72H 01/17/2016 02/10/2016 Inactive hydrocodone 10 mg-acetaminophen 325 mg tablet RxNorm: 900839 1-2 Tablet(s) PO Q6 as needed 01/07/2016 02/05/2016 Inactive fentanyl 50 mcg/hr transdermal patch RxNorm: 480582 1 TD Q72H 01/01/2016 01/16/2016 Inactive fentanyl 50 mcg/hr transdermal patch RxNorm: 971671 1 TD q 3 days 12/26/2015 12/31/2015 Inactive Xarelto 20 mg tablet RxNorm: 0212393 TAKE 1 TABLET VIA PEG TUBE AT BEDTIME 12/17/2015 02/11/2016 Inactive 12/16/2015 3:27:57 PM12/14/2015 9:45:17 AM hydrocodone 10 mg-acetaminophen 325 mg tablet RxNorm: 297138 1-2 Tablet(s) PO Q6 as needed 12/06/2015 01/04/2016 Inactive fentanyl 50 mcg/hr transdermal patch RxNorm: 173864 1 TD q 3 days 12/06/2015 12/25/2015 Inactive fentanyl 25 mcg/hr transdermal patch RxNorm: 166703 1 TD q 3 days 11/18/2015 12/05/2015 Inactive Zithromax Z-Eliu 250 mg tablet RxNorm: 115852 1 Tablet(s) PO UD 10/09/2015 02/26/2016 Inactive z pack as directed- please write out instructions- pt at [facility] nystatin 100,000 unit/gram topical powder RxNorm: 477798 APPLY TO UNDER BREASTS TWICE DAILY FOR YEAST SKIN INFECTION AND APPLY TO UNDERARM AND ABDOMINAL FOLDS AND PERIAREA TWICE DAILY 10/07/2015 12/05/2015 Inactive Generic For:MYCOSTATIN 100,000 UNITS/GM PW 10/05/2015 12:07:35 PM fentanyl 25 mcg/hr transdermal patch RxNorm: 748010 1 TD q 3 days 10/03/2015 11/01/2015 Inactive fentanyl 25 mcg/hr transdermal patch RxNorm: 409218 1 TD q 3 days 09/27/2015 10/02/2015 Inactive fentanyl 25 mcg/hr transdermal patch RxNorm: 021446 1 TD q 3 days 09/17/2015 09/26/2015 Inactive fentanyl 25 mcg/hr transdermal patch RxNorm: 029507 1 TD q 3 days 08/30/2015 09/16/2015 Inactive hydrocodone 5 mg-acetaminophen 325 mg tablet RxNorm: 050139 1 Tablet(s) PO Q6 as needed 08/30/2015 09/28/2015 Inactive Diflucan 100 mg tablet RxNorm: 254287 1 Tablet(s) Miscellaneous per peg daily 07/29/2015 08/04/2015 Inactive fentanyl 25 mcg/hr transdermal patch RxNorm: 852678 1 TD q 3 days 07/18/2015 08/29/2015 Inactive hydrocodone 5 mg-acetaminophen 325 mg tablet RxNorm: 152832 1 Tablet(s) PO Q6 as needed 07/18/2015 08/29/2015 Inactive Diflucan 100 mg tablet RxNorm: 708131 1 Tablet(s) Miscellaneous per peg daily 06/17/2015 06/23/2015 Inactive baclofen 10 mg tablet RxNorm: 892697 1 Tablet(s) PO TID No Start Date Active carvedilol 3.125 mg tablet RxNorm: 932722 1 Tablet(s) PO daily No Start Date Active pravastatin 40 mg tablet RxNorm: 822535 Tablet(s) PO daily No Start Date Active Ativan 0.5 mg tablet RxNorm: 076815 1 Tablet(s) PO Q4H as needed No Start Date 02/17/2016 Inactive ranitidine 150 mg tablet RxNorm: 537903 1 Tablet(s) PO daily No Start Date 08/24/2016 Inactive citalopram 40 mg tablet RxNorm: 754910 1 Tablet(s) PO daily No Start Date 01/27/2016 Inactive Probiotic Blend oral RxNorm: oral No Start Date 05/12/2016 Inactive hydrochlorothiazide 25 mg tablet RxNorm: 982515 1 Tablet(s) PO daily No Start Date 04/21/2016 Inactive Levemir FlexTouch 100 unit/mL (3 mL) subcutaneous insulin pen RxNorm: 030004 10 Unit(s) SQ BID No Start Date 03/01/2016 Inactive Zithromax Z-Eliu 250 mg tablet RxNorm: 950442 1 Tablet(s) PO UD No Start Date 10/08/2015 Inactive z pack as directed- please write out instructions- pt at [facility] nystatin 100,000 unit/gram topical powder RxNorm: 265515 Gram(s) TOP BID as needed No Start Date 10/06/2015 Inactive Xarelto 20 mg tablet RxNorm: 6280151 1 Tablet(s) PO daily No Start Date 12/16/2015 Inactive fentanyl 25 mcg/hr transdermal patch RxNorm: 895427 1 TD q 3 days No Start Date 07/17/2015 Inactive lisinopril 20 mg tablet RxNorm: 013636 1 Tablet(s) PO daily No Start Date 02/24/2016 Inactive hydrocodone 5 mg-acetaminophen 325 mg tablet RxNorm: 729955 1 Tablet(s) PO Q6 as needed No Start Date 07/17/2015 Inactive citalopram 40 mg tablet RxNorm: 110876 1 Tablet(s) PO daily No Start Date 03/03/2016 Inactive hyoscyamine 0.125 mg disintegrating tablet RxNorm: 3739060 1-2 Tablet(s) PO Q8 as needed No [...] Result Date Cbc With Differential Ord2 WBC 6.51 K/ul 07/30/2016 Cbc With Differential Ord2 RBC 3.58 M/ul 07/30/2016 Cbc With Differential Ord2 HGB 11.6 g/dl 07/30/2016 Cbc With Differential Ord2 Neut% 43.9 % 07/30/2016 Cbc With Differential Ord2 HCT 35.6 % 07/30/2016 Cbc With Differential Ord2 Lymph% 41.3 % 07/30/2016 Cbc With Differential Ord2 MCV 99.4 fl 07/30/2016 Cbc With Differential Ord2 MCH 32.4 pg 07/30/2016 Cbc With Differential Ord2 Maury% 7.2 % 07/30/2016 Cbc With Differential Ord2 [...] 2.69 K/ul 07/30/2016 Cbc With Differential Ord2 Maury ABS# 0.5 K/ul 07/30/2016 Cbc With Differential Ord2 Eos ABS# 0.5 K/ul 07/30/2016 Cbc With Differential Ord2 Baso ABS# 0.0 K/ul 07/30/2016 Comp Metabolic Aag559 NA 141 mEq/L 07/30/2016 Comp Metabolic Itv689 K 4.3 mEq/L 07/30/2016 Comp Metabolic Nut200 CL 100 mEq/L 07/30/2016 Comp Metabolic Wlr272 CO2 33.0 mEq/L 07/30/2016 Comp Metabolic Xhr243 ANION GAP 12 07/30/2016 Comp Metabolic Saz205 GLUCOSE 64 mg/dL 07/30/2016 Comp Metabolic Dir187 Creat 0.5 mg/dL 07/30/2016 Comp Metabolic Jqs669 eGFR 126 ml/min/1.73m2 07/30/2016 Comp Metabolic Yrf683 BUN 25 mg/dL 07/30/2016 Comp Metabolic Svo425 B/C Ratio 48.1 Ratio 07/30/2016 Comp Metabolic Bcw339 CALCIUM 8.9 mg/dL 07/30/2016 Comp Metabolic Fhc610 ALK PHOS 90 U/L 07/30/2016 Comp Metabolic Lgs762 AST(SGOT) 22 U/L 07/30/2016 Comp Metabolic Zsg934 ALT(SGPT) 36 U/L 07/30/2016 Comp Metabolic Uvq000 BILI T 0.3 mg/dL 07/30/2016 Comp Metabolic Cwq207 ALBUMIN 3.4 g/dL 07/30/2016 Comp Metabolic Rny049 TPRO 6.0 g/dL 07/30/2016 Comp Metabolic Wur094 GLOB 2.7 g/dL 07/30/2016 Comp Metabolic Oni066 A/G Ratio 1.3 Ratio 07/30/2016 Comp Metabolic Lcw956 Osmo 284 mOsmo 07/30/2016 A1C Frequency Pdt870 A1CF 08245-0 [place] [facility]12[place] 07/30/2016 %Hba1C Ahf137 % HbA1c 09017- 6 5.2 % 05/12/2016 %Hba1C Jux197 Gluc Ave 103 mg/dL 05/12/2016 Culture Urine [id number] URINE CULTURE SEE NOTES 05/11/2016 Urine Culture [...] Urinalysis Ord28 U-Yeast NEGATIVE 05/06/2016 Culture Urine [id number] URINE CULTURE SEE NOTES 03/17/2016 Culture Urine [id number] Continued Results 03/17/2016 Urine Culture Ucult Complete [...] 101.2 fl 02/11/2016 Cbc With Differential Ord2 Maury% 9.1 % 02/11/2016 Cbc With Differential Ord2 [...] 2.59 K/ul 02/11/2016 Cbc With Differential Ord2 Maury ABS# 0.6 K/ul 02/11/2016 Cbc With Differential Ord2 Eos ABS# 0.3 K/ul 02/11/2016 Cbc With Differential Ord2 Baso ABS# 0.0 K/ul 02/11/2016 Comp Metabolic Cct032 NA 137 mEq/L 02/11/2016 Comp Metabolic Bdi751 K 4.4 mEq/L 02/11/2016 Comp Metabolic Qms064 CL 100 mEq/L 02/11/2016 Comp Metabolic Ccb170 CO2 25.0 mEq/L 02/11/2016 Comp Metabolic Eec982 ANION GAP 16 02/11/2016 Comp Metabolic Iws421 GLUCOSE 99 mg/dL 02/11/2016 Comp Metabolic Ceb340 Creat 0.6 mg/dL 02/11/2016 Comp Metabolic Jfb150 eGFR 99 ml/min/1.73m2 02/11/2016 Comp Metabolic Inq079 BUN 27 mg/dL 02/11/2016 Comp Metabolic Upz221 B/C Ratio 42.2 Ratio 02/11/2016 Comp Metabolic Frc029 CALCIUM 9.2 mg/dL 02/11/2016 Comp Metabolic Nvn055 ALK PHOS 74 U/L 02/11/2016 Comp Metabolic Dbh950 AST(SGOT) 24 U/L 02/11/2016 Comp Metabolic Nlv645 ALT(SGPT) 26 U/L 02/11/2016 Comp Metabolic Enl970 BILI T 0.5 mg/dL 02/11/2016 Comp Metabolic Zib471 ALBUMIN 3.5 g/dL 02/11/2016 Comp Metabolic Jsj694 TPRO 6.2 g/dL 02/11/2016 Comp Metabolic Hwm738 GLOB 2.7 g/dL 02/11/2016 Comp Metabolic Jnv403 A/G Ratio 1.3 Ratio 02/11/2016 Comp Metabolic Iud221 Osmo 279 mOsmo 02/11/2016 Review of Systems [...] Date PRESCRIP TRANSMIT VIA ERX SY CPT-4: [id number] 06/17/2015 Vital Signs Date Vital 07/18/2015 Blood Pressure 1: 128/86 Code: 8480-6 BMI: 31.4 Code: 85799-1 Heart Rate 1: 72 bpm Height: 5'1" Weight: 166 lbs 06/17/2015 Blood Pressure 1: 110/78 Code: 8480-6 BMI: 33.3 Code: 22198-3 Heart Rate 1: 74 bpm Height: 5'1" [...] Present Encounters Encounter Performer Location Codes Date ([id number]) [id number] EST. 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] Diagnosis: 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] Diagnosis: Dysphagia following cerebral infarction[ICD10: I69.391] 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] Diagnosis: Candidal esophagitis[ICD10: B37.81] Vonda Everett MD, [facility] CPT- 4: 57810 06/17/2015 Plan of Care Planned Activity Notes Codes Status Date Appointment: (30 min) Complex 07/18/2015 Patient Education: Patient Medication Summary Completed 07/18/2015 Patient Education: Obesity Completed 07/18/2015 Patient Education: .Cervicalgia Neck Pain Completed 07/18/2015 Referral: [facility] WPtel: [phone] [facility] Referral Completed 06/25/2015 Appointment: Vonda Everett WPtel: [phone] [facility] [place] New Patient 06/17/2015 Patient Education: Patient Medication Summary Completed 06/17/2015 Patient Education: Obesity Completed 06/17/2015 Patient Education: Hypertension Completed 06/17/2015 Care Plan: Referral Order SNOMED-CT : [id number] Ordered 06/17/2015 Referral: [facility] WPtel: [phone] Referral Appointment Requested Instructions No Instructions
--- OUTSIDE RECORDS SUMMARY | 2018-08-09 10:43 | XMS REPORT | CCD ---
Author Author Vnoda Everett Organization [facility] Address [address] [place] [address] Phone Care Team Providers Care Sports Journalist Name Role Phone PP Unavailable CCM Unavailable Summary Purpose Interface Exchange Insurance Providers Payer name Policy type / Coverage type Covered republican ID Effective Begin Date Effective End Date WPS Medicare Part B Medicare Part B [id number] Unknown Unknown [place] [employer] Insurance Medicare Part B [id number] Unknown Unknown Family history Father Diagnosis Age [...] Unknown Retired 06/17/[address]: 1679718 Quit over 10 years ago 15+ 06/17/[address]: 278728949 Never drinks alcohol 06/17/2015 Allergies, Adverse Reactions, [...] Instructions fentanyl 100 mcg/hr transdermal patch RxNorm: 642123 1 Patch TD Q72H 09/01/2016 09/30/2016 Active ranitidine 150 mg tablet RxNorm: 541984 1 Tablet(s) PO BID 08/25/2016 No Stop Date Active hydrocodone 10 mg-acetaminophen 325 mg tablet RxNorm: 348763 1 Tablet(s) PO scheduled BID et Q6 hours as needed 08/24/2016 09/22/2016 Active cyanocobalamin (vit B-12) 1,000 mcg tablet RxNorm: 181743 1 Tablet(s) PO daily 08/12/2016 11/09/2016 Active cyanocobalamin (vit B-12) 1,000 mcg tablet RxNorm: 716218 1 Tablet(s) PO daily 08/12/2016 08/11/2016 Inactive hydrocodone 10 mg-acetaminophen 325 mg tablet RxNorm: 017429 1-2 Tablet(s) PO Q6 as needed 08/03/2016 08/17/2016 Inactive fentanyl 100 mcg/hr transdermal patch RxNorm: 802776 1 Patch TD Q72H 08/03/2016 08/31/2016 Inactive nystatin 100,000 unit/gram topical powder RxNorm: 604761 APPLY UNDER BREASTS TWICE DAILY FOR YEAST SKIN INFECTION AND APPLY TO UNDERARM AND ABDOMINAL FOLDS AND PERIAREA TWICE DAILY 07/17/2016 09/14/2016 Active 07/17/2016 3:56:54 PM fentanyl 100 mcg/hr transdermal patch RxNorm: 573237 1 Patch TD Q72H 07/15/2016 08/02/2016 Inactive lisinopril 20 mg tablet RxNorm: 371633 1 Tablet(s) PO daily 07/02/2016 03/28/2017 Active hydrocodone 10 mg-acetaminophen 325 mg tablet RxNorm: 995115 1-2 Tablet(s) PO Q6 as needed 07/01/2016 07/15/2016 Inactive Xarelto 20 mg tablet RxNorm: 7263655 Tablet(s) TAKE 1 TABLET VIA PEG TUBE AT BEDTIME 06/19/2016 01/14/2017 Active fentanyl 100 mcg/hr transdermal patch RxNorm: 453653 1 Patch TD Q72H 06/17/2016 07/14/2016 Inactive nystatin 100,000 unit/gram topical powder RxNorm: 328313 APPLY TO UNDER BREASTS TWICE DAILY FOR YEAST SKIN INFECTION AND APPLY TO UNDERARM AND ABDOMINAL FOLDS AND PERIAREA TWICE DAILY 06/15/2016 07/16/2016 Inactive Generic For:MYCOSTATIN 100,000 UNITS/GM PW 06/15/2016 12:28:26 PM fentanyl 100 mcg/hr transdermal patch RxNorm: 996479 1 Patch TD Q72H 06/05/2016 06/16/2016 Inactive hydrocodone 10 mg-acetaminophen 325 mg tablet RxNorm: 035260 1-2 Tablet(s) PO Q6 as needed 06/02/2016 06/16/2016 Inactive Probiotic Blend 2 million cell-50 mg capsule RxNorm: 1 Capsule(s) PO BID 05/13/2016 05/19/2016 Inactive nitrofurantoin 100 mg capsule RxNorm: 154227 1 Capsule(s) PO BID 05/13/2016 05/19/2016 Inactive nitrofurantoin 100 mg capsule RxNorm: 343187 1 Capsule(s) PO BID 05/13/2016 05/12/2016 Inactive fentanyl 75 mcg/hr transdermal patch RxNorm: 537552 1 Patch TD Q72H 05/13/2016 06/04/2016 Inactive Keflex 500 mg capsule RxNorm: 585035 1 Capsule(s) PO TID 05/07/2016 05/13/2016 Inactive Patient [address] [facility] Keflex 500 mg capsule RxNorm: 337530 1 Capsule(s) PO TID 05/07/2016 05/06/2016 Inactive hydrocodone 10 mg-acetaminophen 325 mg tablet RxNorm: 301949 1-2 Tablet(s) PO Q6 as needed 05/04/2016 06/01/2016 Inactive hydrochlorothiazide 25 mg tablet RxNorm: 579985 Tablet(s) GIVE 1 TABLET VIA PEG TUBE ONCE A DAY 04/29/2016 11/24/2016 Active hydrochlorothiazide 25 mg tablet RxNorm: 291272 GIVE 1 TABLET VIA PEG TUBE ONCE A DAY 04/22/2016 04/28/2016 Inactive Generic For:HYDRODIURIL 25 MG TABLET refill request fentanyl 75 mcg/hr transdermal patch RxNorm: 778198 1 Patch TD Q72H 04/17/2016 05/12/2016 Inactive Xarelto 20 mg tablet RxNorm: 1764536 TAKE 1 TABLET VIA PEG TUBE AT BEDTIME 04/16/2016 06/14/2016 Inactive 04/16/2016 9:08:52 AM citalopram 40 mg tablet RxNorm: 278369 1 Tablet(s) PO daily 04/02/2016 02/25/2017 Active citalopram 40 mg tablet RxNorm: 981278 1 Tablet(s) PO daily 03/27/2016 04/01/2016 Inactive hydrocodone 10 mg-acetaminophen 325 mg tablet RxNorm: 567376 1-2 Tablet(s) PO Q6 as needed 03/27/2016 04/25/2016 Inactive fentanyl 75 mcg/hr transdermal patch RxNorm: 512135 1 Patch TD Q72H 03/18/2016 04/16/2016 Inactive hydrocodone 10 mg-acetaminophen 325 mg tablet RxNorm: 570997 1-2 Tablet(s) PO Q6 as needed 03/11/2016 03/26/2016 Inactive citalopram 40 mg tablet RxNorm: 194759 1 Tablet(s) PO daily 03/04/2016 03/26/2016 Inactive Levemir FlexTouch 100 unit/mL (3 mL) subcutaneous insulin pen RxNorm: 947052 20 Unit(s) SQ BID 03/02/2016 09/27/2016 Active lisinopril 20 mg tablet RxNorm: 121293 1 Tablet(s) PO daily 02/25/2016 07/01/2016 Inactive Ativan 0.5 mg tablet RxNorm: 011533 1 Tablet(s) PO Q4H as needed 02/18/2016 No Stop Date Active Xarelto 20 mg tablet RxNorm: 1578447 TAKE 1 TABLET VIA PEG TUBE AT BEDTIME 02/12/2016 04/11/2016 Inactive 02/12/2016 9:08:22 AM hydrocodone 10 mg-acetaminophen 325 mg tablet RxNorm: 981734 1-2 Tablet(s) PO Q6 as needed 02/12/2016 03/10/2016 Inactive fentanyl 75 mcg/hr transdermal patch RxNorm: 227179 1 Patch TD Q72H 02/11/2016 03/11/2016 Inactive citalopram 20 mg tablet RxNorm: 931142 1 Tablet(s) PO daily 01/28/2016 03/03/2016 Inactive fentanyl 75 mcg/hr transdermal patch RxNorm: 470362 1 TD Q72H 01/17/2016 02/10/2016 Inactive hydrocodone 10 mg-acetaminophen 325 mg tablet RxNorm: 009210 1-2 Tablet(s) PO Q6 as needed 01/07/2016 02/05/2016 Inactive fentanyl 50 mcg/hr transdermal patch RxNorm: 529054 1 TD Q72H 01/01/2016 01/16/2016 Inactive fentanyl 50 mcg/hr transdermal patch RxNorm: 708868 1 TD q 3 days 12/26/2015 12/31/2015 Inactive Xarelto 20 mg tablet RxNorm: 2570051 TAKE 1 TABLET VIA PEG TUBE AT BEDTIME 12/17/2015 02/11/2016 Inactive 12/16/2015 3:27:57 PM12/14/2015 9:45:17 AM hydrocodone 10 mg-acetaminophen 325 mg tablet RxNorm: 723528 1-2 Tablet(s) PO Q6 as needed 12/06/2015 01/04/2016 Inactive fentanyl 50 mcg/hr transdermal patch RxNorm: 009249 1 TD q 3 days 12/06/2015 12/25/2015 Inactive fentanyl 25 mcg/hr transdermal patch RxNorm: 172908 1 TD q 3 days 11/18/2015 12/05/2015 Inactive Zithromax Z-Eliu 250 mg tablet RxNorm: 822314 1 Tablet(s) PO UD 10/09/2015 02/26/2016 Inactive z pack as directed- please write out instructions- pt at [facility] nystatin 100,000 unit/gram topical powder RxNorm: 401227 APPLY TO UNDER BREASTS TWICE DAILY FOR YEAST SKIN INFECTION AND APPLY TO UNDERARM AND ABDOMINAL FOLDS AND PERIAREA TWICE DAILY 10/07/2015 12/05/2015 Inactive Generic For:MYCOSTATIN 100,000 UNITS/GM PW 10/05/2015 12:07:35 PM fentanyl 25 mcg/hr transdermal patch RxNorm: 202876 1 TD q 3 days 10/03/2015 11/01/2015 Inactive fentanyl 25 mcg/hr transdermal patch RxNorm: 120902 1 TD q 3 days 09/27/2015 10/02/2015 Inactive fentanyl 25 mcg/hr transdermal patch RxNorm: 703219 1 TD q 3 days 09/17/2015 09/26/2015 Inactive fentanyl 25 mcg/hr transdermal patch RxNorm: 385585 1 TD q 3 days 08/30/2015 09/16/2015 Inactive hydrocodone 5 mg-acetaminophen 325 mg tablet RxNorm: 134197 1 Tablet(s) PO Q6 as needed 08/30/2015 09/28/2015 Inactive Diflucan 100 mg tablet RxNorm: 381882 1 Tablet(s) Miscellaneous per peg daily 07/29/2015 08/04/2015 Inactive fentanyl 25 mcg/hr transdermal patch RxNorm: 062931 1 TD q 3 days 07/18/2015 08/29/2015 Inactive hydrocodone 5 mg-acetaminophen 325 mg tablet RxNorm: 977009 1 Tablet(s) PO Q6 as needed 07/18/2015 08/29/2015 Inactive Diflucan 100 mg tablet RxNorm: 333083 1 Tablet(s) Miscellaneous per peg daily 06/17/2015 06/23/2015 Inactive baclofen 10 mg tablet RxNorm: 273748 1 Tablet(s) PO TID No Start Date Active carvedilol 3.125 mg tablet RxNorm: 576352 1 Tablet(s) PO daily No Start Date Active pravastatin 40 mg tablet RxNorm: 929772 Tablet(s) PO daily No Start Date Active Ativan 0.5 mg tablet RxNorm: 699138 1 Tablet(s) PO Q4H as needed No Start Date 02/17/2016 Inactive ranitidine 150 mg tablet RxNorm: 691479 1 Tablet(s) PO daily No Start Date 08/24/2016 Inactive citalopram 40 mg tablet RxNorm: 475467 1 Tablet(s) PO daily No Start Date 01/27/2016 Inactive Probiotic Blend oral RxNorm: oral No Start Date 05/12/2016 Inactive hydrochlorothiazide 25 mg tablet RxNorm: 659130 1 Tablet(s) PO daily No Start Date 04/21/2016 Inactive Levemir FlexTouch 100 unit/mL (3 mL) subcutaneous insulin pen RxNorm: 711982 10 Unit(s) SQ BID No Start Date 03/01/2016 Inactive Zithromax Z-Eliu 250 mg tablet RxNorm: 497421 1 Tablet(s) PO UD No Start Date 10/08/2015 Inactive z pack as directed- please write out instructions- pt at [facility] nystatin 100,000 unit/gram topical powder RxNorm: 272473 Gram(s) TOP BID as needed No Start Date 10/06/2015 Inactive Xarelto 20 mg tablet RxNorm: 9554182 1 Tablet(s) PO daily No Start Date 12/16/2015 Inactive fentanyl 25 mcg/hr transdermal patch RxNorm: 271028 1 TD q 3 days No Start Date 07/17/2015 Inactive lisinopril 20 mg tablet RxNorm: 798176 1 Tablet(s) PO daily No Start Date 02/24/2016 Inactive hydrocodone 5 mg-acetaminophen 325 mg tablet RxNorm: 796369 1 Tablet(s) PO Q6 as needed No Start Date 07/17/2015 Inactive citalopram 40 mg tablet RxNorm: 140805 1 Tablet(s) PO daily No Start Date 03/03/2016 Inactive Medication Administered No Medication Administered data [...] 32.4 pg 07/30/2016 Cbc With Differential Ord2 Grundy% 7.2 % 07/30/2016 Cbc With Differential Ord2 [...] 2.69 K/ul 07/30/2016 Cbc With Differential Ord2 Grundy ABS# 0.5 K/ul 07/30/2016 Cbc With Differential Ord2 Eos ABS# 0.5 K/ul 07/30/2016 Cbc With Differential Ord2 Baso ABS# 0.0 K/ul 07/30/2016 Comp Metabolic Whj641 NA 141 mEq/L 07/30/2016 Comp Metabolic Gkp117 K 4.3 mEq/L 07/30/2016 Comp Metabolic Khr584 CL 100 mEq/L 07/30/2016 Comp Metabolic Oox586 CO2 33.0 mEq/L 07/30/2016 Comp Metabolic Obs350 ANION GAP 12 07/30/2016 Comp Metabolic Mlp251 GLUCOSE 64 mg/dL 07/30/2016 Comp Metabolic Oli002 Creat 0.5 mg/dL 07/30/2016 Comp Metabolic Faw234 eGFR 126 ml/min/1.73m2 07/30/2016 Comp Metabolic Gsn133 BUN 25 mg/dL 07/30/2016 Comp Metabolic Lda628 B/C Ratio 48.1 Ratio 07/30/2016 Comp Metabolic Vzc757 CALCIUM 8.9 mg/dL 07/30/2016 Comp Metabolic Bpn159 ALK PHOS 90 U/L 07/30/2016 Comp Metabolic Vcd267 AST(SGOT) 22 U/L 07/30/2016 Comp Metabolic Nad544 ALT(SGPT) 36 U/L 07/30/2016 Comp Metabolic Kkl543 BILI T 0.3 mg/dL 07/30/2016 Comp Metabolic Xsn487 ALBUMIN 3.4 g/dL 07/30/2016 Comp Metabolic Fgm698 TPRO 6.0 g/dL 07/30/2016 Comp Metabolic Prq341 GLOB 2.7 g/dL 07/30/2016 Comp Metabolic Qqp706 A/G Ratio 1.3 Ratio 07/30/2016 Comp Metabolic Xmo620 Osmo 284 mOsmo 07/30/2016 A1C Frequency Ahr357 A1CF 16697-9 Last A1C performed [place] [facility] [place]: 05-12-2016 07/30/2016 %Hba1C Skt134 % HbA1c 78935- 6 5.2 % 05/12/2016 %Hba1C Bfd176 Gluc Ave 103 mg/dL 05/12/2016 Culture Urine [id number] URINE CULTURE SEE NOTES 05/11/2016 Urine Culture [...] Urinalysis Ord28 U-Yeast NEGATIVE 05/06/2016 Culture Urine [id number] URINE CULTURE SEE NOTES 03/17/2016 Culture Urine [id number] Continued Results 03/17/2016 Urine Culture Ucult Complete [...] 101.2 fl 02/11/2016 Cbc With Differential Ord2 [place]% 9.1 % 02/11/2016 Cbc With Differential Ord2 [...] 2.59 K/ul 02/11/2016 Cbc With Differential Ord2 [place] ABS# 0.6 K/ul 02/11/2016 Cbc With Differential Ord2 Eos ABS# 0.3 K/ul 02/11/2016 Cbc With Differential Ord2 Baso ABS# 0.0 K/ul 02/11/2016 Comp Metabolic Lpd204 NA 137 mEq/L 02/11/2016 Comp Metabolic Wms213 K 4.4 mEq/L 02/11/2016 Comp Metabolic Woz749 CL 100 mEq/L 02/11/2016 Comp Metabolic Yfk882 CO2 25.0 mEq/L 02/11/2016 Comp Metabolic Imf124 ANION GAP 16 02/11/2016 Comp Metabolic Hwu998 GLUCOSE 99 mg/dL 02/11/2016 Comp Metabolic Npp643 Creat 0.6 mg/dL 02/11/2016 Comp Metabolic Lau337 eGFR 99 ml/min/1.73m2 02/11/2016 Comp Metabolic Vjh394 BUN 27 mg/dL 02/11/2016 Comp Metabolic Bzg380 B/C Ratio 42.2 Ratio 02/11/2016 Comp Metabolic Wzj244 CALCIUM 9.2 mg/dL 02/11/2016 Comp Metabolic Tcl293 ALK PHOS 74 U/L 02/11/2016 Comp Metabolic Pwo576 AST(SGOT) 24 U/L 02/11/2016 Comp Metabolic Krz236 ALT(SGPT) 26 U/L 02/11/2016 Comp Metabolic Ark046 BILI T 0.5 mg/dL 02/11/2016 Comp Metabolic Qju289 ALBUMIN 3.5 g/dL 02/11/2016 Comp Metabolic Alk577 TPRO 6.2 g/dL 02/11/2016 Comp Metabolic Wqq867 GLOB 2.7 g/dL 02/11/2016 Comp Metabolic Lug984 A/G Ratio 1.3 Ratio 02/11/2016 Comp Metabolic Efz384 Osmo 279 mOsmo 02/11/2016 Review of Systems [...] Date PRESCRIP TRANSMIT VIA ERX SY CPT-4: [id number] 06/17/2015 Vital Signs Date Vital 07/18/2015 Blood Pressure 1: 128/86 Code: 8480-6 BMI: 31.4 Code: 89363-4 Heart Rate 1: 72 bpm Height: 5'1" Weight: 166 lbs 06/17/2015 Blood Pressure 1: 110/78 Code: 8480-6 BMI: 33.3 Code: 39360-8 Heart Rate 1: 74 bpm Height: 5'1" [...] Encounters Encounter Performer Location Codes Date () 59194 EST. 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] Diagnosis: 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] Diagnosis: Dysphagia following cerebral infarction[ICD10: I69.391] 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] Diagnosis: Candidal esophagitis[ICD10: B37.81] [facility], [facility] CPT- 4: 94014 06/17/2015 Plan of Care Planned Activity Notes [...] Follow up weight in 1 month Neck nzxt-uobxpbarjps-Pldq PT focus neck/upper body Right earache-cerumen removed with water pick today in the office 07/18/2015 Appointment: (30 min) Complex 07/18/2015 Patient Education: Patient Medication Summary Completed 07/18/2015 Patient Education: Obesity Completed 07/18/2015 Patient Education: .Cervicalgia Neck Pain Completed 07/18/2015 Referral: [facility] WPtel: [address] [place], [place] [id number] Referral Completed 06/25/2015 Visit Plan: Hypertension - [...] week, get report from and [facility].I spent over an hour with the patient in direct contact. 06/17/2015 [facility] [phone] [id number] [place] New Patient 06/17/2015 Patient Education: Patient Medication Summary Completed 06/17/2015 Patient Education: Obesity Completed 06/17/2015 Patient Education: Hypertension Completed 06/17/2015 Care Plan: Referral Order SNOMED-CT : [id number] Ordered 06/17/2015 [facility] [phone] [id number] Referral Appointment Requested Instructions Comment . Hypertension [...] normal liver response to medications. referral to [facility] for post [...] Follow up weight in 1 month Neck rzhj-ckngyrdozdf-Dymp PT focus neck/upper body Right earache-cerumen removed with water pick today in the office
--- OUTSIDE RECORDS SUMMARY | 2018-08-09 10:44 | XMS REPORT | CCD ---
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 Supervisor Name Role Phone PP Unavailable CCM Unavailable Summary Purpose Interface Exchange Insurance Providers Payer name Policy type / Coverage type Covered constitution party ID Effective Begin Date Effective End Date WPS Medicare Part B Medicare Part B [id number] Unknown Unknown [facility] Life Insurance Medicare Part B [id number] Unknown Unknown Family history Father Diagnosis Age [...] Unknown Retired 06/17/[address]: 9531404 Quit over 10 years ago 15+ 06/17/[address]: 081019439 Never drinks alcohol 06/17/2015 Allergies, Adverse Reactions, [...] Start Date Stop Date Status Fill Instructions ranitidine 150 mg tablet RxNorm: 549842 1 Tablet(s) PO BID 08/25/2016 No Stop Date Active hydrocodone 10 mg-acetaminophen 325 mg tablet RxNorm: 218398 1 Tablet(s) PO scheduled BID et Q6 hours as needed 08/24/2016 09/22/2016 Active cyanocobalamin (vit B-12) 1,000 mcg tablet RxNorm: 040569 1 Tablet(s) PO daily 08/12/2016 11/09/2016 Active cyanocobalamin (vit B-12) 1,000 mcg tablet RxNorm: 927009 1 Tablet(s) PO daily 08/12/2016 08/11/2016 Inactive fentanyl 100 mcg/hr transdermal patch RxNorm: 404660 1 Patch TD Q72H 08/03/2016 09/01/2016 Active hydrocodone 10 mg-acetaminophen 325 mg tablet RxNorm: 919182 1-2 Tablet(s) PO Q6 as needed 08/03/2016 08/17/2016 Inactive nystatin 100,000 unit/gram topical powder RxNorm: 568513 APPLY UNDER BREASTS TWICE DAILY FOR YEAST SKIN INFECTION AND APPLY TO UNDERARM AND ABDOMINAL FOLDS AND PERIAREA TWICE DAILY 07/17/2016 09/14/2016 Active 07/17/2016 3:56:54 PM fentanyl 100 mcg/hr transdermal patch RxNorm: 020143 1 Patch TD Q72H 07/15/2016 08/02/2016 Inactive lisinopril 20 mg tablet RxNorm: 046058 1 Tablet(s) PO daily 07/02/2016 03/28/2017 Active hydrocodone 10 mg-acetaminophen 325 mg tablet RxNorm: 389123 1-2 Tablet(s) PO Q6 as needed 07/01/2016 07/15/2016 Inactive Xarelto 20 mg tablet RxNorm: 3182503 Tablet(s) TAKE 1 TABLET VIA PEG TUBE AT BEDTIME 06/19/2016 01/14/2017 Active fentanyl 100 mcg/hr transdermal patch RxNorm: 231563 1 Patch TD Q72H 06/17/2016 07/14/2016 Inactive nystatin 100,000 unit/gram topical powder RxNorm: 547584 APPLY TO UNDER BREASTS TWICE DAILY FOR YEAST SKIN INFECTION AND APPLY TO UNDERARM AND ABDOMINAL FOLDS AND PERIAREA TWICE DAILY 06/15/2016 07/16/2016 Inactive Generic For:MYCOSTATIN 100,000 UNITS/GM PW 06/15/2016 12:28:26 PM fentanyl 100 mcg/hr transdermal patch RxNorm: 604192 1 Patch TD Q72H 06/05/2016 06/16/2016 Inactive hydrocodone 10 mg-acetaminophen 325 mg tablet RxNorm: 996465 1-2 Tablet(s) PO Q6 as needed 06/02/2016 06/16/2016 Inactive Probiotic Blend 2 million cell-50 mg capsule RxNorm: 1 Capsule(s) PO BID 05/13/2016 05/19/2016 Inactive nitrofurantoin 100 mg capsule RxNorm: 174967 1 Capsule(s) PO BID 05/13/2016 05/19/2016 Inactive nitrofurantoin 100 mg capsule RxNorm: 643463 1 Capsule(s) PO BID 05/13/2016 05/12/2016 Inactive fentanyl 75 mcg/hr transdermal patch RxNorm: 221119 1 Patch TD Q72H 05/13/2016 06/04/2016 Inactive Keflex 500 mg capsule RxNorm: 110637 1 Capsule(s) PO TID 05/07/2016 05/13/2016 Inactive Patient at [facility] Keflex 500 mg capsule RxNorm: 069156 1 Capsule(s) PO TID 05/07/2016 05/06/2016 Inactive hydrocodone 10 mg-acetaminophen 325 mg tablet RxNorm: 808411 1-2 Tablet(s) PO Q6 as needed 05/04/2016 06/01/2016 Inactive hydrochlorothiazide 25 mg tablet RxNorm: 705287 Tablet(s) GIVE 1 TABLET VIA PEG TUBE ONCE A DAY 04/29/2016 11/24/2016 Active hydrochlorothiazide 25 mg tablet RxNorm: 655666 GIVE 1 TABLET VIA PEG TUBE ONCE A DAY 04/22/2016 04/28/2016 Inactive Generic For:HYDRODIURIL 25 MG TABLET refill request fentanyl 75 mcg/hr transdermal patch RxNorm: 817620 1 Patch TD Q72H 04/17/2016 05/12/2016 Inactive Xarelto 20 mg tablet RxNorm: 9812819 TAKE 1 TABLET VIA PEG TUBE AT BEDTIME 04/16/2016 06/14/2016 Inactive 04/16/2016 9:08:52 AM citalopram 40 mg tablet RxNorm: 227867 1 Tablet(s) PO daily 04/02/2016 02/25/2017 Active citalopram 40 mg tablet RxNorm: 671415 1 Tablet(s) PO daily 03/27/2016 04/01/2016 Inactive hydrocodone 10 mg-acetaminophen 325 mg tablet RxNorm: 705412 1-2 Tablet(s) PO Q6 as needed 03/27/2016 04/25/2016 Inactive fentanyl 75 mcg/hr transdermal patch RxNorm: 860695 1 Patch TD Q72H 03/18/2016 04/16/2016 Inactive hydrocodone 10 mg-acetaminophen 325 mg tablet RxNorm: 880138 1-2 Tablet(s) PO Q6 as needed 03/11/2016 03/26/2016 Inactive citalopram 40 mg tablet RxNorm: 629540 1 Tablet(s) PO daily 03/04/2016 03/26/2016 Inactive Levemir FlexTouch 100 unit/mL (3 mL) subcutaneous insulin pen RxNorm: 882079 20 Unit(s) SQ BID 03/02/2016 09/27/2016 Active lisinopril 20 mg tablet RxNorm: 690818 1 Tablet(s) PO daily 02/25/2016 07/01/2016 Inactive Ativan 0.5 mg tablet RxNorm: 113879 1 Tablet(s) PO Q4H as needed 02/18/2016 No Stop Date Active Xarelto 20 mg tablet RxNorm: 1895653 TAKE 1 TABLET VIA PEG TUBE AT BEDTIME 02/12/2016 04/11/2016 Inactive 02/12/2016 9:08:22 AM hydrocodone 10 mg-acetaminophen 325 mg tablet RxNorm: 652348 1-2 Tablet(s) PO Q6 as needed 02/12/2016 03/10/2016 Inactive fentanyl 75 mcg/hr transdermal patch RxNorm: 446787 1 Patch TD Q72H 02/11/2016 03/11/2016 Inactive citalopram 20 mg tablet RxNorm: 908537 1 Tablet(s) PO daily 01/28/2016 03/03/2016 Inactive fentanyl 75 mcg/hr transdermal patch RxNorm: 517394 1 TD Q72H 01/17/2016 02/10/2016 Inactive hydrocodone 10 mg-acetaminophen 325 mg tablet RxNorm: 540855 1-2 Tablet(s) PO Q6 as needed 01/07/2016 02/05/2016 Inactive fentanyl 50 mcg/hr transdermal patch RxNorm: 439263 1 TD Q72H 01/01/2016 01/16/2016 Inactive fentanyl 50 mcg/hr transdermal patch RxNorm: 693511 1 TD q 3 days 12/26/2015 12/31/2015 Inactive Xarelto 20 mg tablet RxNorm: 5130121 TAKE 1 TABLET VIA PEG TUBE AT BEDTIME 12/17/2015 02/11/2016 Inactive 12/16/2015 3:27:57 PM12/14/2015 9:45:17 AM hydrocodone 10 mg-acetaminophen 325 mg tablet RxNorm: 747795 1-2 Tablet(s) PO Q6 as needed 12/06/2015 01/04/2016 Inactive fentanyl 50 mcg/hr transdermal patch RxNorm: 048098 1 TD q 3 days 12/06/2015 12/25/2015 Inactive fentanyl 25 mcg/hr transdermal patch RxNorm: 419901 1 TD q 3 days 11/18/2015 12/05/2015 Inactive Zithromax Z-Eliu 250 mg tablet RxNorm: 533193 1 Tablet(s) PO UD 10/09/2015 02/26/2016 Inactive z pack as directed- please write out instructions- pt at [facility] nystatin 100,000 unit/gram topical powder RxNorm: 194687 APPLY TO UNDER BREASTS TWICE DAILY FOR YEAST SKIN INFECTION AND APPLY TO UNDERARM AND ABDOMINAL FOLDS AND PERIAREA TWICE DAILY 10/07/2015 12/05/2015 Inactive Generic For:MYCOSTATIN 100,000 UNITS/GM PW 10/05/2015 12:07:35 PM fentanyl 25 mcg/hr transdermal patch RxNorm: 925094 1 TD q 3 days 10/03/2015 11/01/2015 Inactive fentanyl 25 mcg/hr transdermal patch RxNorm: 921417 1 TD q 3 days 09/27/2015 10/02/2015 Inactive fentanyl 25 mcg/hr transdermal patch RxNorm: 096511 1 TD q 3 days 09/17/2015 09/26/2015 Inactive fentanyl 25 mcg/hr transdermal patch RxNorm: 645856 1 TD q 3 days 08/30/2015 09/16/2015 Inactive hydrocodone 5 mg-acetaminophen 325 mg tablet RxNorm: 665310 1 Tablet(s) PO Q6 as needed 08/30/2015 09/28/2015 Inactive Diflucan 100 mg tablet RxNorm: 220895 1 Tablet(s) Miscellaneous per peg daily 07/29/2015 08/04/2015 Inactive fentanyl 25 mcg/hr transdermal patch RxNorm: 616167 1 TD q 3 days 07/18/2015 08/29/2015 Inactive hydrocodone 5 mg-acetaminophen 325 mg tablet RxNorm: 998445 1 Tablet(s) PO Q6 as needed 07/18/2015 08/29/2015 Inactive Diflucan 100 mg tablet RxNorm: 959671 1 Tablet(s) Miscellaneous per peg daily 06/17/2015 06/23/2015 Inactive baclofen 10 mg tablet RxNorm: 359951 1 Tablet(s) PO TID No Start Date Active carvedilol 3.125 mg tablet RxNorm: 432410 1 Tablet(s) PO daily No Start Date Active pravastatin 40 mg tablet RxNorm: 519442 Tablet(s) PO daily No Start Date Active Ativan 0.5 mg tablet RxNorm: 992689 1 Tablet(s) PO Q4H as needed No Start Date 02/17/2016 Inactive ranitidine 150 mg tablet RxNorm: 884996 1 Tablet(s) PO daily No Start Date 08/24/2016 Inactive citalopram 40 mg tablet RxNorm: 575655 1 Tablet(s) PO daily No Start Date 01/27/2016 Inactive Probiotic Blend oral RxNorm: oral No Start Date 05/12/2016 Inactive hydrochlorothiazide 25 mg tablet RxNorm: 198127 1 Tablet(s) PO daily No Start Date 04/21/2016 Inactive Levemir FlexTouch 100 unit/mL (3 mL) subcutaneous insulin pen RxNorm: 781176 10 Unit(s) SQ BID No Start Date 03/01/2016 Inactive Zithromax Z-Eliu 250 mg tablet RxNorm: 255523 1 Tablet(s) PO UD No Start Date 10/08/2015 Inactive z pack as directed- please write out instructions- pt at [facility] nystatin 100,000 unit/gram topical powder RxNorm: 063869 Gram(s) TOP BID as needed No Start Date 10/06/2015 Inactive Xarelto 20 mg tablet RxNorm: 0401472 1 Tablet(s) PO daily No Start Date 12/16/2015 Inactive fentanyl 25 mcg/hr transdermal patch RxNorm: 328795 1 TD q 3 days No Start Date 07/17/2015 Inactive lisinopril 20 mg tablet RxNorm: 270016 1 Tablet(s) PO daily No Start Date 02/24/2016 Inactive hydrocodone 5 mg-acetaminophen 325 mg tablet RxNorm: 036580 1 Tablet(s) PO Q6 as needed No Start Date 07/17/2015 Inactive citalopram 40 mg tablet RxNorm: 392583 1 Tablet(s) PO daily No Start Date [...] 41.3 % 07/30/2016 Cbc With Differential Ord2 Isabella% 7.2 % 07/30/2016 Cbc With Differential Ord2 MCH 32.4 pg 07/30/2016 Cbc With Differential Ord2 MCHC 32.6 pg 07/30/2016 Cbc With Differential Ord2 Eos% 7.4 % 07/30/2016 Cbc With Differential Ord2 PLT 160 K/ul 07/30/2016 Cbc With Differential Ord2 Baso% 0.2 % 07/30/2016 Cbc With Differential Ord2 Neut ABS# 2.86 K/ul 07/30/2016 Cbc With Differential Ord2 RDW 12.1 % 07/30/2016 Cbc With Differential Ord2 Lymph ABS# 2.69 K/ul 07/30/2016 Cbc With Differential Ord2 Isabella ABS# 0.5 K/ul 07/30/2016 Cbc With Differential Ord2 Eos ABS# 0.5 K/ul 07/30/2016 Cbc With Differential Ord2 Baso ABS# 0.0 K/ul 07/30/2016 Comp Metabolic Phd108 NA 141 mEq/L 07/30/2016 Comp Metabolic Dim340 K 4.3 mEq/L 07/30/2016 Comp Metabolic Umd525 CL 100 mEq/L 07/30/2016 Comp Metabolic Piv301 CO2 33.0 mEq/L 07/30/2016 Comp Metabolic Jwr029 ANION GAP 12 07/30/2016 Comp Metabolic Jdb167 GLUCOSE 64 mg/dL 07/30/2016 Comp Metabolic Roc260 Creat 0.5 mg/dL 07/30/2016 Comp Metabolic Zui694 eGFR 126 ml/min/1.73m2 07/30/2016 Comp Metabolic Emx247 BUN 25 mg/dL 07/30/2016 Comp Metabolic Wwg410 B/C Ratio 48.1 Ratio 07/30/2016 Comp Metabolic Hif081 CALCIUM 8.9 mg/dL 07/30/2016 Comp Metabolic Ymp442 ALK PHOS 90 U/L 07/30/2016 Comp Metabolic Bdf502 AST(SGOT) 22 U/L 07/30/2016 Comp Metabolic Mkf725 ALT(SGPT) 36 U/L 07/30/2016 Comp Metabolic Wer510 BILI T 0.3 mg/dL 07/30/2016 Comp Metabolic Gjn551 ALBUMIN 3.4 g/dL 07/30/2016 Comp Metabolic Ris316 TPRO 6.0 g/dL 07/30/2016 Comp Metabolic Dcz456 GLOB 2.7 g/dL 07/30/2016 Comp Metabolic Hoe172 A/G Ratio 1.3 Ratio 07/30/2016 Comp Metabolic Dyx100 Osmo 284 mOsmo 07/30/2016 A1C Frequency Eqs199 A1CF 51394-6 [place] [facility] [place]: 05-12-2016 07/30/2016 %Hba1C Art830 % HbA1c 90393- 6 5.2 % 05/12/2016 %Hba1C Faz649 Gluc Ave 103 mg/dL 05/12/2016 Culture Urine [id number] URINE CULTURE SEE NOTES 05/11/2016 Urine Culture [...] Urinalysis Ord28 U-Yeast NEGATIVE 05/06/2016 Culture Urine [id number] URINE CULTURE SEE NOTES 03/17/2016 Culture Urine [id number] Continued Results 03/17/2016 Urine Culture Ucult Complete [...] 38.8 % 02/11/2016 Cbc With Differential Ord2 Isabella% 9.1 % 02/11/2016 Cbc With Differential Ord2 [...] 2.59 K/ul 02/11/2016 Cbc With Differential Ord2 Isabella ABS# 0.6 K/ul 02/11/2016 Cbc With Differential Ord2 Eos ABS# 0.3 K/ul 02/11/2016 Cbc With Differential Ord2 Baso ABS# 0.0 K/ul 02/11/2016 Comp Metabolic Dxq387 NA 137 mEq/L 02/11/2016 Comp Metabolic Dcf804 K 4.4 mEq/L 02/11/2016 Comp Metabolic Qwp383 CL 100 mEq/L 02/11/2016 Comp Metabolic Qwv491 CO2 25.0 mEq/L 02/11/2016 Comp Metabolic Cnh819 ANION GAP 16 02/11/2016 Comp Metabolic Uid656 GLUCOSE 99 mg/dL 02/11/2016 Comp Metabolic Zmu766 Creat 0.6 mg/dL 02/11/2016 Comp Metabolic Ohl018 eGFR 99 ml/min/1.73m2 02/11/2016 Comp Metabolic Hwc110 BUN 27 mg/dL 02/11/2016 Comp Metabolic Uaq371 B/C Ratio 42.2 Ratio 02/11/2016 Comp Metabolic Uan570 CALCIUM 9.2 mg/dL 02/11/2016 Comp Metabolic Rwk120 ALK PHOS 74 U/L 02/11/2016 Comp Metabolic Vpo449 AST(SGOT) 24 U/L 02/11/2016 Comp Metabolic Tav780 ALT(SGPT) 26 U/L 02/11/2016 Comp Metabolic Wyn487 BILI T 0.5 mg/dL 02/11/2016 Comp Metabolic Brs751 ALBUMIN 3.5 g/dL 02/11/2016 Comp Metabolic Yeg662 TPRO 6.2 g/dL 02/11/2016 Comp Metabolic Tqq914 GLOB 2.7 g/dL 02/11/2016 Comp Metabolic Hxe353 A/G Ratio 1.3 Ratio 02/11/2016 Comp Metabolic Hai036 Osmo 279 mOsmo 02/11/2016 Review of Systems [...] Date PRESCRIP TRANSMIT VIA ERX SY CPT-4: [id number] 06/17/2015 Vital Signs Date Vital 07/18/2015 Blood Pressure 1: 128/86 Code: 8480-6 BMI: 31.4 Code: 33373-7 Heart Rate 1: 72 bpm Height: 5'1" Weight: 166 lbs 06/17/2015 Blood Pressure 1: 110/78 Code: 8480-6 BMI: 33.3 Code: 52919-7 Heart Rate 1: 74 bpm Height: 5'1" [...] Present Encounters Encounter Performer Location Codes Date ([id number]) [id number] EST. 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] Diagnosis: 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] Diagnosis: Dysphagia following cerebral infarction[ICD10: I69.391] 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] Diagnosis: Candidal esophagitis[ICD10: B37.81] [facility] CPT- 4: 69774 06/17/2015 Plan of Care Planned Activity Notes [...] Follow up weight in 1 month Neck ifvp-ccvvqzzvudv-Rgzx PT focus neck/upper body Right earache-cerumen removed with water pick today in the office 07/18/2015 Appointment: (30 min) Complex 07/18/2015 Patient Education: Patient Medication Summary Completed 07/18/2015 Patient Education: Obesity Completed 07/18/2015 Patient Education: .Cervicalgia Neck Pain Completed 07/18/2015 [facility] [phone] [facility] [facility] Completed 06/25/2015 Visit Plan: [...] this week, get report from and [facility].I spent over an hour with the patient in direct contact. 06/17/2015 [facility] [phone] [facility] [place] New Patient 06/17/2015 Patient Education: Patient Medication Summary Completed 06/17/2015 Patient Education: Obesity Completed 06/17/2015 Patient Education: Hypertension Completed 06/17/2015 Care Plan: Referral Order SNOMED-CT : [id number] Ordered 06/17/2015 [facility] [phone] [facility] [place] Referral Appointment Requested Instructions Comment . [...] normal liver response to medications. referral to [facility] for post stroke - left sided weakness, neck stiffness, upper extremity weakness Diabetes Mellitus - controlled - per family report - check labs this week, get report from and [facility]. I spent over an hour with the [...] Follow up weight in 1 month Neck qvcs-tqjzsoudhdk-Vuzv PT focus neck/upper body Right earache-cerumen removed with water pick today in the office
--- OUTSIDE RECORDS SUMMARY | 2018-08-09 10:44 | XMS REPORT | CCD ---
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 Name Role Phone PP Unavailable CCM Unavailable Summary Purpose Interface Exchange Insurance Providers Payer name Policy type / Coverage type Covered alliance party ID Effective Begin Date Effective End Date WPS Medicare Part B Medicare Part B [id number] Unknown Unknown [place] [employer] Life Insurance Medicare Part B [id number] Unknown Unknown Family history Father Diagnosis Age [...] Unknown Retired 06/17/[address]: 3555889 Quit over 10 years ago 15+ 06/17/[address]: 481343775 Never drinks alcohol 06/17/2015 Allergies, Adverse Reactions, [...] hydrocodone 10 mg-acetaminophen 325 mg tablet RxNorm: 658990 1 Tablet(s) PO scheduled BID et Q6 hours as needed 08/24/2016 09/22/2016 Active cyanocobalamin (vit B-12) 1,000 mcg tablet RxNorm: 490962 1 Tablet(s) PO daily 08/12/2016 11/09/2016 Active cyanocobalamin (vit B-12) 1,000 mcg tablet RxNorm: 797003 1 Tablet(s) PO daily 08/12/2016 08/11/2016 Inactive fentanyl 100 mcg/hr transdermal patch RxNorm: 590016 1 Patch TD Q72H 08/03/2016 09/01/2016 Active hydrocodone 10 mg-acetaminophen 325 mg tablet RxNorm: 737403 1-2 Tablet(s) PO Q6 as needed 08/03/2016 08/17/2016 Inactive nystatin 100,000 unit/gram topical powder RxNorm: 938921 APPLY UNDER BREASTS TWICE DAILY FOR YEAST SKIN INFECTION AND APPLY TO UNDERARM AND ABDOMINAL FOLDS AND PERIAREA TWICE DAILY 07/17/2016 09/14/2016 Active 07/17/2016 3:56:54 PM fentanyl 100 mcg/hr transdermal patch RxNorm: 024784 1 Patch TD Q72H 07/15/2016 08/02/2016 Inactive lisinopril 20 mg tablet RxNorm: 436380 1 Tablet(s) PO daily 07/02/2016 03/28/2017 Active hydrocodone 10 mg-acetaminophen 325 mg tablet RxNorm: 471001 1-2 Tablet(s) PO Q6 as needed 07/01/2016 07/15/2016 Inactive Xarelto 20 mg tablet RxNorm: 5638071 Tablet(s) TAKE 1 TABLET VIA PEG TUBE AT BEDTIME 06/19/2016 01/14/2017 Active fentanyl 100 mcg/hr transdermal patch RxNorm: 280648 1 Patch TD Q72H 06/17/2016 07/14/2016 Inactive nystatin 100,000 unit/gram topical powder RxNorm: 473380 APPLY TO UNDER BREASTS TWICE DAILY FOR YEAST SKIN INFECTION AND APPLY TO UNDERARM AND ABDOMINAL FOLDS AND PERIAREA TWICE DAILY 06/15/2016 07/16/2016 Inactive Generic For:MYCOSTATIN 100,000 UNITS/GM PW 06/15/2016 12:28:26 PM fentanyl 100 mcg/hr transdermal patch RxNorm: 981526 1 Patch TD Q72H 06/05/2016 06/16/2016 Inactive hydrocodone 10 mg-acetaminophen 325 mg tablet RxNorm: 220523 1-2 Tablet(s) PO Q6 as needed 06/02/2016 06/16/2016 Inactive Probiotic Blend 2 million cell-50 mg capsule RxNorm: 1 Capsule(s) PO BID 05/13/2016 05/19/2016 Inactive nitrofurantoin 100 mg capsule RxNorm: 107981 1 Capsule(s) PO BID 05/13/2016 05/19/2016 Inactive nitrofurantoin 100 mg capsule RxNorm: 448727 1 Capsule(s) PO BID 05/13/2016 05/12/2016 Inactive fentanyl 75 mcg/hr transdermal patch RxNorm: 394897 1 Patch TD Q72H 05/13/2016 06/04/2016 Inactive Keflex 500 mg capsule RxNorm: 449004 1 Capsule(s) PO TID 05/07/2016 05/13/2016 Inactive Patient at [facility] Keflex 500 mg capsule RxNorm: 756907 1 Capsule(s) PO TID 05/07/2016 05/06/2016 Inactive hydrocodone 10 mg-acetaminophen 325 mg tablet RxNorm: 848792 1-2 Tablet(s) PO Q6 as needed 05/04/2016 06/01/2016 Inactive hydrochlorothiazide 25 mg tablet RxNorm: 065375 Tablet(s) GIVE 1 TABLET VIA PEG TUBE ONCE A DAY 04/29/2016 11/24/2016 Active hydrochlorothiazide 25 mg tablet RxNorm: 767230 GIVE 1 TABLET VIA PEG TUBE ONCE A DAY 04/22/2016 04/28/2016 Inactive Generic For:HYDRODIURIL 25 MG TABLET refill request fentanyl 75 mcg/hr transdermal patch RxNorm: 057077 1 Patch TD Q72H 04/17/2016 05/12/2016 Inactive Xarelto 20 mg tablet RxNorm: 0843132 TAKE 1 TABLET VIA PEG TUBE AT BEDTIME 04/16/2016 06/14/2016 Inactive 04/16/2016 9:08:52 AM citalopram 40 mg tablet RxNorm: 218156 1 Tablet(s) PO daily 04/02/2016 02/25/2017 Active citalopram 40 mg tablet RxNorm: 234253 1 Tablet(s) PO daily 03/27/2016 04/01/2016 Inactive hydrocodone 10 mg-acetaminophen 325 mg tablet RxNorm: 052396 1-2 Tablet(s) PO Q6 as needed 03/27/2016 04/25/2016 Inactive fentanyl 75 mcg/hr transdermal patch RxNorm: 597292 1 Patch TD Q72H 03/18/2016 04/16/2016 Inactive hydrocodone 10 mg-acetaminophen 325 mg tablet RxNorm: 301971 1-2 Tablet(s) PO Q6 as needed 03/11/2016 03/26/2016 Inactive citalopram 40 mg tablet RxNorm: 176724 1 Tablet(s) PO daily 03/04/2016 03/26/2016 Inactive Levemir FlexTouch 100 unit/mL (3 mL) subcutaneous insulin pen RxNorm: 377436 20 Unit(s) SQ BID 03/02/2016 09/27/2016 Active lisinopril 20 mg tablet RxNorm: 481063 1 Tablet(s) PO daily 02/25/2016 07/01/2016 Inactive Ativan 0.5 mg tablet RxNorm: 977959 1 Tablet(s) PO Q4H as needed 02/18/2016 No Stop Date Active Xarelto 20 mg tablet RxNorm: 2513109 TAKE 1 TABLET VIA PEG TUBE AT BEDTIME 02/12/2016 04/11/2016 Inactive 02/12/2016 9:08:22 AM hydrocodone 10 mg-acetaminophen 325 mg tablet RxNorm: 339186 1-2 Tablet(s) PO Q6 as needed 02/12/2016 03/10/2016 Inactive fentanyl 75 mcg/hr transdermal patch RxNorm: 777741 1 Patch TD Q72H 02/11/2016 03/11/2016 Inactive citalopram 20 mg tablet RxNorm: 253089 1 Tablet(s) PO daily 01/28/2016 03/03/2016 Inactive fentanyl 75 mcg/hr transdermal patch RxNorm: 690210 1 TD Q72H 01/17/2016 02/10/2016 Inactive hydrocodone 10 mg-acetaminophen 325 mg tablet RxNorm: 444432 1-2 Tablet(s) PO Q6 as needed 01/07/2016 02/05/2016 Inactive fentanyl 50 mcg/hr transdermal patch RxNorm: 637105 1 TD Q72H 01/01/2016 01/16/2016 Inactive fentanyl 50 mcg/hr transdermal patch RxNorm: 749219 1 TD q 3 days 12/26/2015 12/31/2015 Inactive Xarelto 20 mg tablet RxNorm: 8481585 TAKE 1 TABLET VIA PEG TUBE AT BEDTIME 12/17/2015 02/11/2016 Inactive 12/16/2015 3:27:57 PM12/14/2015 9:45:17 AM hydrocodone 10 mg-acetaminophen 325 mg tablet RxNorm: 882817 1-2 Tablet(s) PO Q6 as needed 12/06/2015 01/04/2016 Inactive fentanyl 50 mcg/hr transdermal patch RxNorm: 842111 1 TD q 3 days 12/06/2015 12/25/2015 Inactive fentanyl 25 mcg/hr transdermal patch RxNorm: 731936 1 TD q 3 days 11/18/2015 12/05/2015 Inactive Zithromax Z-Eliu 250 mg tablet RxNorm: 806388 1 Tablet(s) PO UD 10/09/2015 02/26/2016 Inactive z pack as directed- please write out instructions- pt at [facility] nystatin 100,000 unit/gram topical powder RxNorm: 131040 APPLY TO UNDER BREASTS TWICE DAILY FOR YEAST SKIN INFECTION AND APPLY TO UNDERARM AND ABDOMINAL FOLDS AND PERIAREA TWICE DAILY 10/07/2015 12/05/2015 Inactive Generic For:MYCOSTATIN 100,000 UNITS/GM PW 10/05/2015 12:07:35 PM fentanyl 25 mcg/hr transdermal patch RxNorm: 041079 1 TD q 3 days 10/03/2015 11/01/2015 Inactive fentanyl 25 mcg/hr transdermal patch RxNorm: 286526 1 TD q 3 days 09/27/2015 10/02/2015 Inactive fentanyl 25 mcg/hr transdermal patch RxNorm: 571315 1 TD q 3 days 09/17/2015 09/26/2015 Inactive fentanyl 25 mcg/hr transdermal patch RxNorm: 521845 1 TD q 3 days 08/30/2015 09/16/2015 Inactive hydrocodone 5 mg-acetaminophen 325 mg tablet RxNorm: 633824 1 Tablet(s) PO Q6 as needed 08/30/2015 09/28/2015 Inactive Diflucan 100 mg tablet RxNorm: 202789 1 Tablet(s) Miscellaneous per peg daily 07/29/2015 08/04/2015 Inactive fentanyl 25 mcg/hr transdermal patch RxNorm: 473548 1 TD q 3 days 07/18/2015 08/29/2015 Inactive hydrocodone 5 mg-acetaminophen 325 mg tablet RxNorm: 562392 1 Tablet(s) PO Q6 as needed 07/18/2015 08/29/2015 Inactive Diflucan 100 mg tablet RxNorm: 343045 1 Tablet(s) Miscellaneous per peg daily 06/17/2015 06/23/2015 Inactive baclofen 10 mg tablet RxNorm: 493917 1 Tablet(s) PO TID No Start Date Active ranitidine 150 mg tablet RxNorm: 729802 1 Tablet(s) PO daily No Start Date Active carvedilol 3.125 mg tablet RxNorm: 730744 1 Tablet(s) PO daily No Start Date Active pravastatin 40 mg tablet RxNorm: 093245 Tablet(s) PO daily No Start Date Active Ativan 0.5 mg tablet RxNorm: 438624 1 Tablet(s) PO Q4H as needed No Start Date 02/17/2016 Inactive citalopram 40 mg tablet RxNorm: 783194 1 Tablet(s) PO daily No Start Date 01/27/2016 Inactive Probiotic Blend oral RxNorm: oral No Start Date 05/12/2016 Inactive hydrochlorothiazide 25 mg tablet RxNorm: 829948 1 Tablet(s) PO daily No Start Date 04/21/2016 Inactive Levemir FlexTouch 100 unit/mL (3 mL) subcutaneous insulin pen RxNorm: 740864 10 Unit(s) SQ BID No Start Date 03/01/2016 Inactive Zithromax Z-Eliu 250 mg tablet RxNorm: 016757 1 Tablet(s) PO UD No Start Date 10/08/2015 Inactive z pack as directed- please write out instructions- pt at [facility] nystatin 100,000 unit/gram topical powder RxNorm: 062888 Gram(s) TOP BID as needed No Start Date 10/06/2015 Inactive Xarelto 20 mg tablet RxNorm: 4267224 1 Tablet(s) PO daily No Start Date 12/16/2015 Inactive fentanyl 25 mcg/hr transdermal patch RxNorm: 569873 1 TD q 3 days No Start Date 07/17/2015 Inactive lisinopril 20 mg tablet RxNorm: 736401 1 Tablet(s) PO daily No Start Date 02/24/2016 Inactive hydrocodone 5 mg-acetaminophen 325 mg tablet RxNorm: 561387 1 Tablet(s) PO Q6 as needed No Start Date 07/17/2015 Inactive citalopram 40 mg tablet RxNorm: 383559 1 Tablet(s) PO daily No Start Date [...] 41.3 % 07/30/2016 Cbc With Differential Ord2 Prentiss% 7.2 % 07/30/2016 Cbc With Differential Ord2 [...] 2.69 K/ul 07/30/2016 Cbc With Differential Ord2 Prentiss ABS# 0.5 K/ul 07/30/2016 Cbc With Differential Ord2 Eos ABS# 0.5 K/ul 07/30/2016 Cbc With Differential Ord2 Baso ABS# 0.0 K/ul 07/30/2016 Comp Metabolic Pgq906 NA 141 mEq/L 07/30/2016 Comp Metabolic Gsh542 K 4.3 mEq/L 07/30/2016 Comp Metabolic Dob049 CL 100 mEq/L 07/30/2016 Comp Metabolic Pgh486 CO2 33.0 mEq/L 07/30/2016 Comp Metabolic Sff608 ANION GAP 12 07/30/2016 Comp Metabolic Oym869 GLUCOSE 64 mg/dL 07/30/2016 Comp Metabolic Yzp354 Creat 0.5 mg/dL 07/30/2016 Comp Metabolic Qsh806 eGFR 126 ml/min/1.73m2 07/30/2016 Comp Metabolic Fkc150 BUN 25 mg/dL 07/30/2016 Comp Metabolic Csi383 B/C Ratio 48.1 Ratio 07/30/2016 Comp Metabolic Ugd298 CALCIUM 8.9 mg/dL 07/30/2016 Comp Metabolic Fka534 ALK PHOS 90 U/L 07/30/2016 Comp Metabolic Frl286 AST(SGOT) 22 U/L 07/30/2016 Comp Metabolic Vxp141 ALT(SGPT) 36 U/L 07/30/2016 Comp Metabolic Nnt176 BILI T 0.3 mg/dL 07/30/2016 Comp Metabolic Qlo335 ALBUMIN 3.4 g/dL 07/30/2016 Comp Metabolic Tcr242 TPRO 6.0 g/dL 07/30/2016 Comp Metabolic Iqd113 GLOB 2.7 g/dL 07/30/2016 Comp Metabolic Lgw884 A/G Ratio 1.3 Ratio 07/30/2016 Comp Metabolic Txy258 Osmo 284 mOsmo 07/30/2016 A1C Frequency Ero198 A1CF 15087-3 Last A1C performed at [facility] on: 05-12-2016 07/30/2016 %Hba1C Oip494 % HbA1c 72300- 6 5.2 % 05/12/2016 %Hba1C Gdv651 Gluc Ave 103 mg/dL 05/12/2016 Culture Urine [id number] URINE CULTURE SEE NOTES 05/11/2016 Urine Culture [...] Urinalysis Ord28 U-Yeast NEGATIVE 05/06/2016 Culture Urine [id number] URINE CULTURE SEE NOTES 03/17/2016 Culture Urine [id number] Continued Results 03/17/2016 Urine Culture Ucult Complete [...] 38.8 % 02/11/2016 Cbc With Differential Ord2 Prentiss% 9.1 % 02/11/2016 Cbc With Differential Ord2 [...] 2.59 K/ul 02/11/2016 Cbc With Differential Ord2 Prentiss ABS# 0.6 K/ul 02/11/2016 Cbc With Differential Ord2 Eos ABS# 0.3 K/ul 02/11/2016 Cbc With Differential Ord2 Baso ABS# 0.0 K/ul 02/11/2016 Comp Metabolic Xwb002 NA 137 mEq/L 02/11/2016 Comp Metabolic Tut253 K 4.4 mEq/L 02/11/2016 Comp Metabolic Eyf814 CL 100 mEq/L 02/11/2016 Comp Metabolic Hvx979 CO2 25.0 mEq/L 02/11/2016 Comp Metabolic Xny435 ANION GAP 16 02/11/2016 Comp Metabolic Uzw197 GLUCOSE 99 mg/dL 02/11/2016 Comp Metabolic Xdn602 Creat 0.6 mg/dL 02/11/2016 Comp Metabolic Hth217 eGFR 99 ml/min/1.73m2 02/11/2016 Comp Metabolic Xkt480 BUN 27 mg/dL 02/11/2016 Comp Metabolic Ggd229 B/C Ratio 42.2 Ratio 02/11/2016 Comp Metabolic Mkd390 CALCIUM 9.2 mg/dL 02/11/2016 Comp Metabolic Ntq366 ALK PHOS 74 U/L 02/11/2016 Comp Metabolic Mur285 AST(SGOT) 24 U/L 02/11/2016 Comp Metabolic Lcl593 ALT(SGPT) 26 U/L 02/11/2016 Comp Metabolic Mqy349 BILI T 0.5 mg/dL 02/11/2016 Comp Metabolic Gul458 ALBUMIN 3.5 g/dL 02/11/2016 Comp Metabolic Iaf154 TPRO 6.2 g/dL 02/11/2016 Comp Metabolic Rht449 GLOB 2.7 g/dL 02/11/2016 Comp Metabolic Lci244 A/G Ratio 1.3 Ratio 02/11/2016 Comp Metabolic Mll265 Osmo 279 mOsmo 02/11/2016 Review of Systems [...] Date PRESCRIP TRANSMIT VIA ERX SY CPT-4: [id number] 06/17/2015 Vital Signs Date Vital 07/18/2015 Blood Pressure 1: 128/86 Code: 8480-6 BMI: 31.4 Code: 15332-0 Heart Rate 1: 72 bpm Height: 5'1" Weight: 166 lbs 06/17/2015 Blood Pressure 1: 110/78 Code: 8480-6 BMI: 33.3 Code: 16232-3 Heart Rate 1: 74 bpm Height: 5'1" [...] Encounters Encounter Performer Location Codes Date () 46715 EST. 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] Diagnosis: 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] Diagnosis: Dysphagia following cerebral infarction[ICD10: I69.391] 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] Diagnosis: Candidal esophagitis[ICD10: B37.81] [facility] CPT- 4: 57404 06/17/2015 Plan of Care Planned Activity Notes [...] Follow up weight in 1 month Neck fdft-hxlbpxnvlja-Gbvs PT focus neck/upper body Right earache-cerumen removed with water pick today in the office 07/18/2015 Appointment: (30 min) Complex 07/18/2015 Patient Education: Patient Medication Summary Completed 07/18/2015 Patient Education: Obesity Completed 07/18/2015 Patient Education: .Cervicalgia Neck Pain Completed 07/18/2015 [phone] [id number] [facility] Completed 06/25/2015 Visit Plan: Hypertension [...] week, get report from and [facility].I spent over an hour with the patient in direct contact. 06/17/2015 [facility] [phone] [facility] New Patient 06/17/2015 Patient Education: Patient Medication Summary Completed 06/17/2015 Patient Education: Obesity Completed 06/17/2015 Patient Education: Hypertension Completed 06/17/2015 Care Plan: Referral Order SNOMED-CT : [id number] Ordered 06/17/2015 [facility] [phone] [id number] [facility] Appointment Requested Instructions Comment . [...] week, get report from and [facility]. I spent over an hour with the [...] Follow up weight in 1 month Neck pwlx-esrhxwzzoho-Ppir PT focus neck/upper body Right earache-cerumen removed with water pick today in the office
--- OUTSIDE RECORDS SUMMARY | 2018-08-09 10:48 | XMS REPORT | CCD ---
Author Author [facility] Organization [facility] Address [address] [place] [address] Phone Care Team Providers Care Rn Support Services Name Role Phone PP Unavailable CCM Unavailable Summary Purpose Interface Exchange Insurance Providers Payer name Policy type / Coverage type Covered constitution party ID Effective Begin Date Effective End Date WPS Medicare Part B Medicare Part B [id number] Unknown Unknown [place] [employer] Life Insurance Medicare Part B [id number] Unknown Unknown Family history Father Diagnosis Age At Onset Arthritis Unknown Hypertension Unknown Mother Diagnosis Age At Onset Diabetes mellitus Type 2 Unknown Depression Unknown Arthritis Unknown Stroke Unknown Hypertension Unknown Sister Diagnosis Age At Onset Colon cancer Unknown Social History Social History Element Codes Description Effective Dates Marital status Unknown Maurice 01/07/2018 Living arrangements Unknown Prison [facility] 04/15/2017 Number of children Unknown 3 06/17/2015 Employment Unknown Retired 06/17/[address]: 1473680 Quit over 10 years ago 15+ 06/17/[address]: 201416447 Never drinks alcohol 06/17/2015 Allergies, Adverse Reactions, [...] hydrocodone 10 mg-acetaminophen 325 mg tablet RxNorm: 094380 2 Tablet(s) PO scheduled TID 07/19/2018 08/02/2018 Active Not to exceed 3gm/24hr acetaminophen Duragesic 75 mcg/hr transdermal patch RxNorm: 413387 1 Patch TD Q72H 07/05/2018 08/03/2018 Active lorazepam 0.5 mg tablet RxNorm: 734021 1 Tablet(s) PO BID and 1 tab q 6 hours prn 07/05/2018 No Stop Date Active fentanyl 100 mcg/hr transdermal patch RxNorm: 538650 1 Patch TD Q72H 07/05/2018 08/03/2018 Active hydrocodone 10 mg-acetaminophen 325 mg tablet RxNorm: 428063 2 Tablet(s) PO scheduled TID 07/05/2018 07/18/2018 Inactive Not to exceed 3gm/24hr acetaminophen hydrocodone 10 mg-acetaminophen 325 mg tablet RxNorm: 442702 2 Tablet(s) PO scheduled TID 06/22/2018 07/04/2018 Inactive Not to exceed 3gm/24hr acetaminophen citalopram 40 mg tablet RxNorm: 163177 1 Tablet(s) PO daily 06/20/2018 05/15/2019 Active Voltaren 1 % topical gel RxNorm: 191318 APPLY 4 GRAMS TO RIGHT KNEE FOUR TIMES DAILY 06/13/2018 07/06/2018 Inactive Generic For:VOLTAREN GEL 1% 06/13/2018 10:59:02 AM hydrocodone 10 mg-acetaminophen 325 mg tablet RxNorm: 956778 2 Tablet(s) PO scheduled TID 06/07/2018 06/21/2018 Inactive Not to exceed 3gm/24hr acetaminophen fentanyl 100 mcg/hr transdermal patch RxNorm: 315889 1 Patch TD Q72H 06/03/2018 07/02/2018 Inactive Duragesic 75 mcg/hr transdermal patch RxNorm: 958719 1 Patch TD Q72H 06/03/2018 07/02/2018 Inactive hyoscyamine 0.125 mg disintegrating tablet RxNorm: 3217235 Tablet(s) Tablet(s) 1-2 Tablet(s) PO Q8 as needed 05/27/2018 No Stop Date Active lorazepam 0.5 mg tablet RxNorm: 057693 1 Tablet(s) PO BID and 1 tab q 6 hours prn 05/24/2018 No Stop Date Active hydrocodone 10 mg-acetaminophen 325 mg tablet RxNorm: 113290 2 Tablet(s) PO scheduled TID 05/24/2018 06/06/2018 Inactive Not to exceed 3gm/24hr acetaminophen citalopram 20 mg tablet RxNorm: 961689 1 Tablet(s) PO daily 05/17/2018 06/19/2018 Inactive hydrocodone 10 mg-acetaminophen 325 mg tablet RxNorm: 558337 2 Tablet(s) PO scheduled TID 04/19/2018 05/18/2018 Inactive Not to exceed 3gm/24hr acetaminophen lorazepam 0.5 mg tablet RxNorm: 239476 1 Tablet(s) PO BID and 1 tab q 6 hours prn 04/07/2018 05/23/2018 Inactive hyoscyamine 0.125 mg disintegrating tablet RxNorm: 0676485 Tablet(s) 1-2 Tablet(s) PO Q8 as needed 03/31/2018 05/26/2018 Inactive Duragesic 75 mcg/hr transdermal patch RxNorm: 923859 1 Patch TD Q72H 03/31/2018 04/29/2018 Inactive fentanyl 100 mcg/hr transdermal patch RxNorm: 397801 1 Patch TD Q72H 03/31/2018 04/29/2018 Inactive carvedilol 3.125 mg tablet RxNorm: 857516 Tablet(s) GIVE 1 TABLET VIA PEG TUBE 2 TIMES A DAY 03/30/2018 06/27/2018 Inactive Generic For:COREG 3.125MG 10/22/2017 9:23:30 AM Voltaren 1 % topical gel RxNorm: 073271 APPLY 4 GRAMS TO RIGHT KNEE FOUR TIMES DAILY 03/30/2018 04/22/2018 Inactive Generic For:VOLTAREN GEL 1% 03/30/2018 11:14:57 AM hydrocodone 10 mg-acetaminophen 325 mg tablet RxNorm: 831313 2 Tablet(s) PO scheduled TID 03/23/2018 04/18/2018 Inactive Not to exceed 3gm/24hr acetaminophen albuterol sulfate concentrate 5 mg/mL(0.5 %) solution for nebulization RxNorm: 957850 1 Vial Milliliter(s) INH TID PRN as needed congestion 03/18/2018 No Stop Date Active cefdinir 300 mg capsule RxNorm: 099161 1 Capsule(s) PO BID 03/18/2018 03/24/2018 Inactive Zithromax Z-Eliu 250 mg tablet RxNorm: 406644 Tablet(s) PO 03/18/2018 05/16/2018 Inactive Voltaren 1 % topical gel RxNorm: 163371 4 Gram(s) TOP QID 03/18/2018 03/29/2018 Inactive hydrochlorothiazide 25 mg tablet RxNorm: 533539 GIVE 1 TABLET VIA PEG TUBE ONCE DAILY 03/11/2018 09/06/2018 Active Generic For:HYDRODIURIL 25 MG TABLET 03/11/2018 9:15:32 AM fentanyl 100 mcg/hr transdermal patch RxNorm: 130427 1 Patch TD Q72H 03/02/2018 03/30/2018 Inactive Duragesic 75 mcg/hr transdermal patch RxNorm: 297509 1 Patch TD Q72H 03/02/2018 03/30/2018 Inactive hydrocodone 10 mg-acetaminophen 325 mg tablet RxNorm: 121591 2 Tablet(s) PO scheduled TID 02/18/2018 03/22/2018 Inactive Not to exceed 3gm/24hr acetaminophen hyoscyamine 0.125 mg disintegrating tablet RxNorm: 3834069 Tablet(s) 1-2 Tablet(s) PO Q8 as needed 02/08/2018 03/30/2018 Inactive fentanyl 100 mcg/hr transdermal patch RxNorm: 514044 1 Patch TD Q72H 02/04/2018 03/01/2018 Inactive hydrocodone 10 mg-acetaminophen 325 mg tablet RxNorm: 393681 2 Tablet(s) PO scheduled TID 02/04/2018 02/17/2018 Inactive Not to exceed 3gm/24hr acetaminophen Duragesic 75 mcg/hr transdermal patch RxNorm: 845557 1 Patch TD Q72H 02/04/2018 03/01/2018 Inactive Duragesic 75 mcg/hr transdermal patch RxNorm: 117193 1 Patch TD Q72H 01/07/2018 02/03/2018 Inactive Levemir FlexTouch U-100 Insulin 100 unit/mL (3 mL) subcutaneous pen RxNorm: 655682 4 Unit(s) SQ QHS 01/07/2018 07/13/2018 Inactive fentanyl 100 mcg/hr transdermal patch RxNorm: 807565 1 Patch TD Q72H 01/07/2018 02/03/2018 Inactive hydrocodone 10 mg-acetaminophen 325 mg tablet RxNorm: 018032 2 Tablet(s) PO scheduled TID 01/05/2018 02/03/2018 Inactive Not to exceed 3gm/24hr acetaminophen hydrocodone 10 mg-acetaminophen 325 mg tablet RxNorm: 131322 2 Tablet(s) PO scheduled TID and 1 tab q 4 as needed 01/04/2018 01/04/2018 Inactive Not to exceed 3gm/24hr acetaminophen cyanocobalamin (vit B-12) 1,000 mcg tablet RxNorm: 347227 1 Tablet(s) PO daily 12/28/2017 11/22/2018 Active baclofen 10 mg tablet RxNorm: 401212 Tablet(s) TAKE 1 TABLET THREE TIMES DAILY VIA STOMACH TUBE 12/27/2017 05/25/2018 Inactive 10/07/2017 5:36:15 PM 10/07/2017 5:36:13 PM N O T I C E Last quantity doesn't match original quantity Duragesic 75 mcg/hr transdermal patch RxNorm: 962269 1 Patch TD Q72H 12/22/2017 01/06/2018 Inactive fentanyl 100 mcg/hr transdermal patch RxNorm: 482788 1 Patch TD Q72H 12/22/2017 01/06/2018 Inactive hydrocodone 10 mg-acetaminophen 325 mg tablet RxNorm: 811297 2 Tablet(s) PO scheduled TID and 1 tab q 4 as needed 12/20/2017 01/03/2018 Inactive Not to exceed 3gm/24hr acetaminophen hyoscyamine 0.125 mg disintegrating tablet RxNorm: 2031995 1-2 Tablet(s) PO Q8 as needed 12/14/2017 02/07/2018 Inactive Duragesic 75 mcg/hr transdermal patch RxNorm: 897829 1 Patch TD Q72H 12/06/2017 12/21/2017 Inactive fentanyl 100 mcg/hr transdermal patch RxNorm: 111067 1 Patch TD Q72H 12/06/2017 12/21/2017 Inactive hydrocodone 10 mg-acetaminophen 325 mg tablet RxNorm: 519929 2 Tablet(s) PO scheduled TID and 1 tab q 4 as needed 11/29/2017 12/19/2017 Inactive Not to exceed 3gm/24hr acetaminophen Duragesic 75 mcg/hr transdermal patch RxNorm: 997257 1 Patch TD Q72H 11/11/2017 12/05/2017 Inactive hydrocodone 10 mg-acetaminophen 325 mg tablet RxNorm: 534418 2 Tablet(s) PO scheduled TID and 1 tab q 4 as needed 11/09/2017 11/28/2017 Inactive Not to exceed 3gm/24hr acetaminophen Levemir FlexTouch U-100 Insulin 100 unit/mL (3 mL) subcutaneous pen RxNorm: 575620 8 Unit(s) SQ QHS 11/09/2017 01/06/2018 Inactive fentanyl 100 mcg/hr transdermal patch RxNorm: 325664 1 Patch TD Q72H 2017 12/05/2017 Inactive hyoscyamine 0.125 mg disintegrating tablet RxNorm: 0110068 1-2 Tablet(s) PO Q8 as needed 11/03/2017 12/13/2017 Inactive carvedilol 3.125 mg tablet RxNorm: 149441 GIVE 1 TABLET VIA PEG TUBE 2 TIMES A DAY 10/22/2017 01/19/2018 Inactive Generic For:COREG 3.125MG 10/22/2017 9:23:30 AM hydrocodone 10 mg-acetaminophen 325 mg tablet RxNorm: 725516 2 Tablet(s) PO scheduled TID and 1 tab q 4 as needed 10/22/2017 2017 Inactive Not to exceed 3gm/24hr acetaminophen fentanyl 100 mcg/hr transdermal patch RxNorm: 930700 1 Patch TD Q72H 10/20/2017 11/07/2017 Inactive Duragesic 75 mcg/hr transdermal patch RxNorm: 779496 1 Patch TD Q72H 10/20/2017 11/10/2017 Inactive lorazepam 0.5 mg tablet RxNorm: 867842 1 Tablet(s) PO BID and 1 tab q 6 hours prn 10/18/2017 07/04/2018 Inactive baclofen 10 mg tablet RxNorm: 565699 TAKE 1 TABLET THREE TIMES DAILY VIA STOMACH TUBE 10/07/2017 12/26/2017 Inactive 10/07/2017 5:36:15 PM 10/07/2017 5:36:13 PM N O T I C E Last quantity doesn't match original quantity cranberry extract 500 mg tablet RxNorm: 9447685 1 Tablet(s) PO QAM 10/04/2017 01/31/2018 Inactive Cipro 500 mg tablet RxNorm: 474255 1 Tablet(s) PO BID 10/04/2017 10/03/2017 Inactive dc keflex hydrocodone 10 mg-acetaminophen 325 mg tablet RxNorm: 723744 2 Tablet(s) PO scheduled TID as needed 10/04/2017 10/21/2017 Inactive Not to exceed 3gm/24hr acetaminophen cranberry extract 500 mg tablet RxNorm: 0548690 1 Tablet(s) PO QAM 10/04/2017 10/03/2017 Inactive Cipro 500 mg tablet RxNorm: 916450 1 Tablet(s) PO BID 10/04/2017 10/10/2017 Inactive dc keflex Duragesic 75 mcg/hr transdermal patch RxNorm: 251780 1 Patch TD Q72H 09/20/2017 10/19/2017 Inactive fentanyl 100 mcg/hr transdermal patch RxNorm: 344309 1 Patch TD Q72H 09/20/2017 10/19/2017 Inactive hyoscyamine 0.125 mg disintegrating tablet RxNorm: 9683375 1 Tablet(s) PO TID and 1 Tablet Q4H prn increased secretions 09/15/2017 11/02/2017 Inactive hydrocodone 10 mg-acetaminophen 325 mg tablet RxNorm: 156591 2 Tablet(s) PO scheduled TID and 1-2 Tabs Q4H PRN pain 09/15/2017 10/03/2017 Inactive Not to exceed 3gm/24hr acetaminophen lorazepam 0.5 mg tablet RxNorm: 466425 1 Tablet(s) PO BID 09/15/2017 10/17/2017 Inactive Lexapro 10 mg tablet RxNorm: 257579 1 Tablet(s) PO daily 09/10/2017 09/14/2017 Inactive Levemir FlexTouch U-100 Insulin 100 unit/mL (3 mL) subcutaneous pen RxNorm: 975925 10 Unit(s) daily 09/09/2017 09/15/2017 Inactive lisinopril 10 mg tablet RxNorm: 673243 1 Tablet(s) PO daily 09/09/2017 05/16/2018 Inactive Duragesic 75 mcg/hr transdermal patch RxNorm: 419587 1 Patch TD Q72H 09/09/2017 09/19/2017 Inactive nystatin 100,000 unit/gram topical cream RxNorm: 928022 1 Gram(s) TOP TID until healed to gaulding 09/06/2017 07/12/2018 Inactive nystatin 100,000 unit/gram topical cream RxNorm: 278006 1 Gram(s) TOP TID until healed to gaulding 09/06/2017 09/05/2017 Inactive hydrocodone 10 mg-acetaminophen 325 mg tablet RxNorm: 693061 2 Tablet(s) PO scheduled TID as needed 08/31/2017 09/14/2017 Inactive Not to exceed 3gm/24hr acetaminophen fentanyl 100 mcg/hr transdermal patch RxNorm: 375837 1 Patch TD Q72H 08/24/2017 09/19/2017 Inactive fentanyl 50 mcg/hr transdermal patch RxNorm: 082652 1 Patch TD Q72H 08/24/2017 09/08/2017 Inactive fentanyl 25 mcg/hr transdermal patch RxNorm: 913321 1 Patch TD Q72H 08/24/2017 08/24/2017 Inactive hyoscyamine 0.125 mg disintegrating tablet RxNorm: 5302331 Tablet(s) 1-2 Tablet(s) PO Q8 as needed 08/23/2017 09/14/2017 Inactive hydrocodone 10 mg-acetaminophen 325 mg tablet RxNorm: 217818 1 Tablet(s) PO scheduled TID et Q6 hours as needed 08/18/2017 08/30/2017 Inactive Not to exceed 3gm/24hr acetaminophen hydrochlorothiazide 25 mg tablet RxNorm: 949811 GIVE 1 TABLET VIA PEG TUBE ONCE DAILY 08/17/2017 02/12/2018 Inactive Generic For:HYDRODIURIL 25 MG TABLET 08/17/2017 9:01:54 AM08/11/2017 10:12:00 AM lorazepam 0.5 mg tablet RxNorm: 875035 1/2 Tablet(s) PO BID 08/03/2017 09/14/2017 Inactive fentanyl 100 mcg/hr transdermal patch RxNorm: 623901 1 Patch TD Q72H 07/26/2017 08/23/2017 Inactive fentanyl 25 mcg/hr transdermal patch RxNorm: 096473 1 Patch TD Q72H 07/26/2017 08/23/2017 Inactive hydrocodone 10 mg-acetaminophen 325 mg tablet RxNorm: 093495 1 Tablet(s) PO scheduled TID et Q6 hours as needed 07/16/2017 08/14/2017 Inactive Not to exceed 3gm/24hr acetaminophen hyoscyamine 0.125 mg disintegrating tablet RxNorm: 9375024 Tablet(s) 1-2 Tablet(s) PO Q8 as needed 07/13/2017 08/01/2017 Inactive baclofen 10 mg tablet RxNorm: 637670 TAKE 1 TABLET THREE TIMES DAILY VIA STOMACH TUBE 07/12/2017 10/06/2017 Inactive 07/12/2017 9:04:08 AM N O T I C E Last quantity doesn't match original quantity lorazepam 0.5 mg tablet RxNorm: 192283 1/2 Tablet(s) PO BID 07/02/2017 08/02/2017 Inactive fentanyl 100 mcg/hr transdermal patch RxNorm: 602373 1 Patch TD Q72H 06/28/2017 07/25/2017 Inactive fentanyl 25 mcg/hr transdermal patch RxNorm: 862670 1 Patch TD Q72H 06/28/2017 07/25/2017 Inactive hyoscyamine 0.125 mg disintegrating tablet RxNorm: 5653589 Tablet(s) 1-2 Tablet(s) PO Q8 as needed 06/03/2017 06/22/2017 Inactive fentanyl 25 mcg/hr transdermal patch RxNorm: 493271 1 Patch TD Q72H 05/26/2017 06/24/2017 Inactive Levemir FlexTouch U-100 Insulin 100 unit/mL (3 mL) subcutaneous pen RxNorm: 412359 20 Unit(s) SQ BID 05/26/2017 09/08/2017 Inactive fentanyl 100 mcg/hr transdermal patch RxNorm: 256447 1 Patch TD Q72H 05/26/2017 06/24/2017 Inactive hydrocodone 10 mg-acetaminophen 325 mg tablet RxNorm: 467489 1 Tablet(s) PO scheduled BID et Q6 hours as needed 05/12/2017 05/11/2017 Inactive hydrocodone 10 mg-acetaminophen 325 mg tablet RxNorm: 997968 1 Tablet(s) PO scheduled TID et Q6 hours as needed 05/12/2017 06/10/2017 Inactive Not to exceed 3gm/24hr acetaminophen docusate sodium 100 mg tablet RxNorm: 8260968 1 Tablet(s) PO BID as needed if no bowel movement 05/10/2017 05/09/2017 Inactive lisinopril 20 mg tablet RxNorm: 034179 1 Tablet(s) PO daily 05/10/2017 09/08/2017 Inactive docusate sodium 100 mg tablet RxNorm: 8723618 1 Tablet(s) PO BID as needed if no bowel movement 05/10/2017 09/14/2017 Inactive fentanyl 25 mcg/hr transdermal patch RxNorm: 777598 1 Patch TD Q72H 05/03/2017 05/25/2017 Inactive lorazepam 0.5 mg tablet RxNorm: 300303 1/2 Tablet(s) PO BID 05/03/2017 07/01/2017 Inactive fentanyl 100 mcg/hr transdermal patch RxNorm: 491836 1 Patch TD Q72H 04/27/2017 05/25/2017 Inactive carvedilol 3.125 mg tablet RxNorm: 827644 Tablet(s) GIVE 1 TABLET VIA PEG TUBE DAILY 04/15/2017 10/21/2017 Inactive Levemir FlexTouch 100 unit/mL (3 mL) subcutaneous insulin pen RxNorm: 331893 10 Unit(s) SQ BID 04/15/2017 2017 Inactive hyoscyamine 0.125 mg disintegrating tablet RxNorm: 1530765 1-2 Tablet(s) PO Q8 as needed 04/14/2017 05/03/2017 Inactive hydrocodone 10 mg-acetaminophen 325 mg tablet RxNorm: 680553 1 Tablet(s) PO scheduled BID et Q6 hours as needed 04/13/2017 05/02/2017 Inactive baclofen 10 mg tablet RxNorm: 104592 TAKE 1 TABLET THREE TIMES DAILY VIA STOMACH TUBE 04/08/2017 05/22/2017 Inactive 04/08/2017 9:32:07 AM fentanyl 25 mcg/hr transdermal patch RxNorm: 565837 1 Patch TD Q72H 04/05/2017 05/02/2017 Inactive lidocaine 10 mg/mL (1 %) injection solution RxNorm: 1821971 1 Milliliter(s) Inj daily Mix with rocephin 03/31/2017 03/30/2017 Inactive Pt resides at [facility] lidocaine 10 mg/mL (1 %) injection solution RxNorm: 2070440 1 Milliliter(s) Inj daily Mix with rocephin 03/31/2017 04/06/2017 Inactive Pt resides at [facility] fentanyl 100 mcg/hr transdermal patch RxNorm: 260516 1 Patch TD Q72H 03/29/2017 04/26/2017 Inactive nystatin 100,000 unit/gram topical powder RxNorm: 880136 APPLY UNDER BREASTS TWICE DAILY FOR YEAST SKIN INFECTION AND APPLY TO UNDERARM AND ABDOMINAL FOLDS AND PERIAREA TWICE DAILY 03/29/2017 03/28/2017 Inactive 03/27/2017 9:12:50 AM nystatin 100,000 unit/gram topical powder RxNorm: 729452 APPLY UNDER BREASTS TWICE DAILY FOR YEAST SKIN INFECTION AND APPLY TO UNDERARM AND ABDOMINAL FOLDS AND PERIAREA TWICE DAILY 03/29/2017 09/14/2017 Inactive 03/29/2017 9:42:55 AM03/27/2017 9:12:50 AM hyoscyamine 0.125 mg disintegrating tablet RxNorm: 9732605 1-2 Tablet(s) PO Q8 as needed 03/08/2017 03/27/2017 Inactive fentanyl 25 mcg/hr transdermal patch RxNorm: 474174 1 Patch TD Q72H 03/02/2017 03/31/2017 Inactive hydrocodone 10 mg-acetaminophen 325 mg tablet RxNorm: 162096 1 Tablet(s) PO scheduled BID et Q6 hours as needed 02/17/2017 03/18/2017 Inactive fentanyl 100 mcg/hr transdermal patch RxNorm: 686571 1 Patch TD Q72H 02/17/2017 03/18/2017 Inactive Lexapro 10 mg tablet RxNorm: 148605 1 Tablet(s) PO daily 02/05/2017 04/14/2017 Inactive Lexapro 10 mg tablet RxNorm: 258641 1 Tablet(s) PO daily 02/05/2017 02/04/2017 Inactive fentanyl 25 mcg/hr transdermal patch RxNorm: 520013 1 Patch TD Q72H 02/04/2017 03/01/2017 Inactive cyanocobalamin (vit B-12) 1,000 mcg tablet RxNorm: 567744 1 Tablet(s) PO daily 01/18/2017 12/13/2017 Inactive hyoscyamine 0.125 mg disintegrating tablet RxNorm: 6487754 Tablet(s) 1-2 Tablet(s) PO Q8 as needed 01/18/2017 02/06/2017 Inactive baclofen 10 mg tablet RxNorm: 258745 TAKE 1 TABLET THREE TIMES DAILY VIA STOMACH TUBE 01/04/2017 02/17/2017 Inactive 01/04/2017 9:25:18 AM fentanyl 100 mcg/hr transdermal patch RxNorm: 289738 1 Patch TD Q72H 12/25/2016 01/23/2017 Inactive hydrochlorothiazide 25 mg tablet RxNorm: 137337 Tablet(s) GIVE 1 TABLET VIA PEG TUBE ONCE A DAY 12/14/2016 07/11/2017 Inactive fentanyl 100 mcg/hr transdermal patch RxNorm: 200531 1 Patch TD Q72H 11/25/2016 12/24/2016 Inactive hyoscyamine 0.125 mg disintegrating tablet RxNorm: 7350276 Tablet(s) 1-2 Tablet(s) PO Q8 as needed 11/25/2016 12/14/2016 Inactive nystatin 100,000 unit/gram topical powder RxNorm: 732727 APPLY UNDER BREASTS TWICE DAILY FOR YEAST SKIN INFECTION AND APPLY TO UNDERARM AND ABDOMINAL FOLDS AND PERIAREA TWICE DAILY 11/24/2016 01/22/2017 Inactive 11/24/2016 9:34:02 AM hydrocodone 10 mg-acetaminophen 325 mg tablet RxNorm: 411550 1 Tablet(s) PO scheduled BID et Q6 hours as needed 11/02/2016 12/01/2016 Inactive cyanocobalamin (vit B-12) 1,000 mcg tablet RxNorm: 643245 1 Tablet(s) PO daily 11/02/2016 01/17/2017 Inactive hyoscyamine 0.125 mg disintegrating tablet RxNorm: 2241872 1-2 Tablet(s) PO Q8 as needed 10/19/2016 11/24/2016 Inactive fentanyl 100 mcg/hr transdermal patch RxNorm: 395252 1 Patch TD Q72H 10/13/2016 11/11/2016 Inactive hydrocodone 10 mg-acetaminophen 325 mg tablet RxNorm: 899660 1 Tablet(s) PO scheduled BID et Q6 hours as needed 10/05/2016 11/01/2016 Inactive baclofen 10 mg tablet RxNorm: 923285 TAKE 1 TABLET THREE TIMES DAILY VIA STOMACH TUBE 10/01/2016 11/14/2016 Inactive 10/01/2016 9:24:37 AM carvedilol 3.125 mg tablet RxNorm: 983840 GIVE 1 TABLET VIA PEG TUBE 2 TIMES A DAY 09/30/2016 12/28/2016 Inactive Generic For:COREG 3.125MG 09/30/2016 1:12:28 PM09/25/2016 9:06:11 AM Probiotic Blend 2 million cell-50 mg capsule RxNorm: 1 Capsule(s) PO BID 09/17/2016 09/23/2016 Inactive Keflex 500 mg capsule RxNorm: 957990 1 Capsule(s) PO TID 09/17/2016 09/23/2016 Inactive hyoscyamine 0.125 mg/5 mL oral elixir RxNorm: 5190694 5 Milliliter(s) PO TID 09/08/2016 09/17/2016 Inactive hyoscyamine 0.125 mg/5 mL oral elixir RxNorm: 9934079 5 Milliliter(s) PO TID 09/08/2016 09/07/2016 Inactive hyoscyamine 0.125 mg disintegrating tablet RxNorm: 9761773 1-2 Tablet(s) PO Q8 as needed 09/07/2016 10/18/2016 Inactive fentanyl 100 mcg/hr transdermal patch RxNorm: 889552 1 Patch TD Q72H 09/01/2016 09/30/2016 Inactive ranitidine 150 mg tablet RxNorm: 031050 1 Tablet(s) PO BID 08/25/2016 No Stop Date Active hydrocodone 10 mg-acetaminophen 325 mg tablet RxNorm: 139429 1 Tablet(s) PO scheduled BID et Q6 hours as needed 08/24/2016 09/22/2016 Inactive cyanocobalamin (vit B-12) 1,000 mcg tablet RxNorm: 545366 1 Tablet(s) PO daily 08/12/2016 11/01/2016 Inactive cyanocobalamin (vit B-12) 1,000 mcg tablet RxNorm: 932374 1 Tablet(s) PO daily 08/12/2016 08/11/2016 Inactive hydrocodone 10 mg-acetaminophen 325 mg tablet RxNorm: 946203 1-2 Tablet(s) PO Q6 as needed 08/03/2016 08/17/2016 Inactive fentanyl 100 mcg/hr transdermal patch RxNorm: 741174 1 Patch TD Q72H 08/03/2016 08/31/2016 Inactive nystatin 100,000 unit/gram topical powder RxNorm: 735177 APPLY UNDER BREASTS TWICE DAILY FOR YEAST SKIN INFECTION AND APPLY TO UNDERARM AND ABDOMINAL FOLDS AND PERIAREA TWICE DAILY 07/17/2016 09/14/2016 Inactive 07/17/2016 3:56:54 PM fentanyl 100 mcg/hr transdermal patch RxNorm: 629289 1 Patch TD Q72H 07/15/2016 08/02/2016 Inactive lisinopril 20 mg tablet RxNorm: 581312 1 Tablet(s) PO daily 07/02/2016 03/28/2017 Inactive hydrocodone 10 mg-acetaminophen 325 mg tablet RxNorm: 833945 1-2 Tablet(s) PO Q6 as needed 07/01/2016 07/15/2016 Inactive Xarelto 20 mg tablet RxNorm: 3159616 Tablet(s) TAKE 1 TABLET VIA PEG TUBE AT BEDTIME 06/19/2016 04/14/2017 Inactive fentanyl 100 mcg/hr transdermal patch RxNorm: 662766 1 Patch TD Q72H 06/17/2016 07/14/2016 Inactive nystatin 100,000 unit/gram topical powder RxNorm: 036318 APPLY TO UNDER BREASTS TWICE DAILY FOR YEAST SKIN INFECTION AND APPLY TO UNDERARM AND ABDOMINAL FOLDS AND PERIAREA TWICE DAILY 06/15/2016 07/16/2016 Inactive Generic For:MYCOSTATIN 100,000 UNITS/GM PW 06/15/2016 12:28:26 PM fentanyl 100 mcg/hr transdermal patch RxNorm: 322725 1 Patch TD Q72H 06/05/2016 06/16/2016 Inactive hydrocodone 10 mg-acetaminophen 325 mg tablet RxNorm: 099055 1-2 Tablet(s) PO Q6 as needed 06/02/2016 06/16/2016 Inactive Probiotic Blend 2 million cell-50 mg capsule RxNorm: 1 Capsule(s) PO BID 05/13/2016 05/19/2016 Inactive nitrofurantoin 100 mg capsule RxNorm: 778641 1 Capsule(s) PO BID 05/13/2016 05/19/2016 Inactive nitrofurantoin 100 mg capsule RxNorm: 439957 1 Capsule(s) PO BID 05/13/2016 05/12/2016 Inactive fentanyl 75 mcg/hr transdermal patch RxNorm: 737556 1 Patch TD Q72H 05/13/2016 06/04/2016 Inactive Keflex 500 mg capsule RxNorm: 521084 1 Capsule(s) PO TID 05/07/2016 05/13/2016 Inactive Patient at [facility] Keflex 500 mg capsule RxNorm: 868575 1 Capsule(s) PO TID 05/07/2016 05/06/2016 Inactive hydrocodone 10 mg-acetaminophen 325 mg tablet RxNorm: 358604 1-2 Tablet(s) PO Q6 as needed 05/04/2016 06/01/2016 Inactive hydrochlorothiazide 25 mg tablet RxNorm: 619910 Tablet(s) GIVE 1 TABLET VIA PEG TUBE ONCE A DAY 04/29/2016 11/24/2016 Inactive hydrochlorothiazide 25 mg tablet RxNorm: 105967 GIVE 1 TABLET VIA PEG TUBE ONCE A DAY 04/22/2016 04/28/2016 Inactive Generic For:HYDRODIURIL 25 MG TABLET refill request fentanyl 75 mcg/hr transdermal patch RxNorm: 940408 1 Patch TD Q72H 04/17/2016 05/12/2016 Inactive Xarelto 20 mg tablet RxNorm: 1988553 TAKE 1 TABLET VIA PEG TUBE AT BEDTIME 04/16/2016 06/14/2016 Inactive 04/16/2016 9:08:52 AM citalopram 40 mg tablet RxNorm: 840638 1 Tablet(s) PO daily 04/02/2016 02/25/2017 Inactive citalopram 40 mg tablet RxNorm: 506361 1 Tablet(s) PO daily 03/27/2016 04/01/2016 Inactive hydrocodone 10 mg-acetaminophen 325 mg tablet RxNorm: 764246 1-2 Tablet(s) PO Q6 as needed 03/27/2016 04/25/2016 Inactive fentanyl 75 mcg/hr transdermal patch RxNorm: 300817 1 Patch TD Q72H 03/18/2016 04/16/2016 Inactive hydrocodone 10 mg-acetaminophen 325 mg tablet RxNorm: 524707 1-2 Tablet(s) PO Q6 as needed 03/11/2016 03/26/2016 Inactive citalopram 40 mg tablet RxNorm: 238992 1 Tablet(s) PO daily 03/04/2016 03/26/2016 Inactive Levemir FlexTouch U-100 Insulin 100 unit/mL (3 mL) subcutaneous pen RxNorm: 160025 20 Unit(s) SQ BID 03/02/2016 09/27/2016 Inactive lisinopril 20 mg tablet RxNorm: 098982 1 Tablet(s) PO daily 02/25/2016 07/01/2016 Inactive Ativan 0.5 mg tablet RxNorm: 499369 1 Tablet(s) PO Q4H as needed 02/18/2016 04/14/2017 Inactive Xarelto 20 mg tablet RxNorm: 7806514 TAKE 1 TABLET VIA PEG TUBE AT BEDTIME 02/12/2016 04/11/2016 Inactive 02/12/2016 9:08:22 AM hydrocodone 10 mg-acetaminophen 325 mg tablet RxNorm: 318386 1-2 Tablet(s) PO Q6 as needed 02/12/2016 03/10/2016 Inactive fentanyl 75 mcg/hr transdermal patch RxNorm: 425988 1 Patch TD Q72H 02/11/2016 03/11/2016 Inactive citalopram 20 mg tablet RxNorm: 704415 1 Tablet(s) PO daily 01/28/2016 03/03/2016 Inactive fentanyl 75 mcg/hr transdermal patch RxNorm: 319101 1 TD Q72H 01/17/2016 02/10/2016 Inactive hydrocodone 10 mg-acetaminophen 325 mg tablet RxNorm: 935161 1-2 Tablet(s) PO Q6 as needed 01/07/2016 02/05/2016 Inactive fentanyl 50 mcg/hr transdermal patch RxNorm: 225497 1 TD Q72H 01/01/2016 01/16/2016 Inactive fentanyl 50 mcg/hr transdermal patch RxNorm: 200434 1 TD q 3 days 12/26/2015 12/31/2015 Inactive Xarelto 20 mg tablet RxNorm: 2652985 TAKE 1 TABLET VIA PEG TUBE AT BEDTIME 12/17/2015 02/11/2016 Inactive 12/16/2015 3:27:57 PM12/14/2015 9:45:17 AM hydrocodone 10 mg-acetaminophen 325 mg tablet RxNorm: 161362 1-2 Tablet(s) PO Q6 as needed 12/06/2015 01/04/2016 Inactive fentanyl 50 mcg/hr transdermal patch RxNorm: 942376 1 TD q 3 days 12/06/2015 12/25/2015 Inactive fentanyl 25 mcg/hr transdermal patch RxNorm: 069431 1 TD q 3 days 11/18/2015 12/05/2015 Inactive Zithromax Z-Eliu 250 mg tablet RxNorm: 385654 1 Tablet(s) PO UD 10/09/2015 02/26/2016 Inactive z pack as directed- please write out instructions- pt at [facility] nystatin 100,000 unit/gram topical powder RxNorm: 226195 APPLY TO UNDER BREASTS TWICE DAILY FOR YEAST SKIN INFECTION AND APPLY TO UNDERARM AND ABDOMINAL FOLDS AND PERIAREA TWICE DAILY 10/07/2015 12/05/2015 Inactive Generic For:MYCOSTATIN 100,000 UNITS/GM PW 10/05/2015 12:07:35 PM fentanyl 25 mcg/hr transdermal patch RxNorm: 891916 1 TD q 3 days 10/03/2015 11/01/2015 Inactive fentanyl 25 mcg/hr transdermal patch RxNorm: 876413 1 TD q 3 days 09/27/2015 10/02/2015 Inactive fentanyl 25 mcg/hr transdermal patch RxNorm: 521777 1 TD q 3 days 09/17/2015 09/26/2015 Inactive fentanyl 25 mcg/hr transdermal patch RxNorm: 989995 1 TD q 3 days 08/30/2015 09/16/2015 Inactive hydrocodone 5 mg-acetaminophen 325 mg tablet RxNorm: 450892 1 Tablet(s) PO Q6 as needed 08/30/2015 09/28/2015 Inactive Diflucan 100 mg tablet RxNorm: 959425 1 Tablet(s) Miscellaneous per peg daily 07/29/2015 08/04/2015 Inactive fentanyl 25 mcg/hr transdermal patch RxNorm: 247954 1 TD q 3 days 07/18/2015 08/29/2015 Inactive hydrocodone 5 mg-acetaminophen 325 mg tablet RxNorm: 654581 1 Tablet(s) PO Q6 as needed 07/18/2015 08/29/2015 Inactive Diflucan 100 mg tablet RxNorm: 932509 1 Tablet(s) Miscellaneous per peg daily 06/17/2015 06/23/2015 Inactive Senna-S 8.6 mg-50 mg tablet RxNorm: 858837 1 Tablet(s) PO daily as needed constipation No Start Date Active Dulcolax (bisacodyl) 10 mg rectal suppository RxNorm: 574343 1 Suppository RTL daily as needed constipation No Start Date Active polyethylene glycol 3350 17 gram/dose oral powder RxNorm: 338659 17 Gram(s) PO daily as needed constipation No Start Date Active baclofen 10 mg tablet RxNorm: 242535 1 Tablet(s) PO TID No Start Date 09/30/2016 Inactive Ativan 0.5 mg tablet RxNorm: 634024 1 Tablet(s) PO Q4H as needed No Start Date 02/17/2016 Inactive ranitidine 150 mg tablet RxNorm: 381002 1 Tablet(s) PO daily No Start Date 08/24/2016 Inactive carvedilol 3.125 mg tablet RxNorm: 788641 1 Tablet(s) PO daily No Start Date 09/29/2016 Inactive citalopram 40 mg tablet RxNorm: 451017 1 Tablet(s) PO daily No Start Date 01/27/2016 Inactive Probiotic Blend oral RxNorm: oral No Start Date 05/12/2016 Inactive hydrochlorothiazide 25 mg tablet RxNorm: 683629 1 Tablet(s) PO daily No Start Date 04/21/2016 Inactive albuterol sulfate concentrate 5 mg/mL(0.5 %) solution for nebulization RxNorm: 701896 1 Vial INH daily as needed congestion No Start Date 03/17/2018 Inactive Levemir FlexTouch 100 unit/mL (3 mL) subcutaneous insulin pen RxNorm: 564990 10 Unit(s) SQ BID No Start Date 03/01/2016 Inactive Zithromax Z-Eliu 250 mg tablet RxNorm: 663973 1 Tablet(s) PO UD No Start Date 10/08/2015 Inactive z pack as directed- please write out instructions- pt at [facility] nystatin 100,000 unit/gram topical powder RxNorm: 639688 Gram(s) TOP BID as needed No Start Date 10/06/2015 Inactive pravastatin 40 mg tablet RxNorm: 345662 Tablet(s) PO daily No Start Date 04/14/2017 Inactive lorazepam 0.5 mg tablet RxNorm: 076184 1/2 Tablet(s) PO BID No Start Date 05/02/2017 Inactive Xarelto 20 mg tablet RxNorm: 9847113 1 Tablet(s) PO daily No Start Date 12/16/2015 Inactive fentanyl 25 mcg/hr transdermal patch RxNorm: 255717 1 TD q 3 days No Start Date 07/17/2015 Inactive lisinopril 20 mg tablet RxNorm: 529668 1 Tablet(s) PO daily No Start Date 02/24/2016 Inactive hydrocodone 5 mg-acetaminophen 325 mg tablet RxNorm: 705421 1 Tablet(s) PO Q6 as needed No Start Date 07/17/2015 Inactive citalopram 40 mg tablet RxNorm: 623486 1 Tablet(s) PO daily No Start Date 03/03/2016 Inactive hyoscyamine 0.125 mg disintegrating tablet RxNorm: 2537358 1-2 Tablet(s) PO Q8 as needed No [...] Code Item Item Code Result Date %Hba1C Cpb103 % HbA1c 40059- 6 5.5 % 05/18/2018 %Hba1C Sve816 Gluc Ave 111 mg/dL 05/18/2018 Cbc With [...] 32.3 pg 05/18/2018 Cbc With Differential Ord2 [place]% 4.9 % 05/18/2018 Cbc With Differential Ord2 [...] 1.81 K/ul 05/18/2018 Cbc With Differential Ord2 [place] ABS# 0.4 K/ul 05/18/2018 Cbc With Differential Ord2 Eos ABS# 0.6 K/ul 05/18/2018 Cbc With Differential Ord2 Baso ABS# 0.0 K/ul 05/18/2018 Tsh Ord6 TSH (3rd IS) 0.85 uIU/mL 05/18/2018 Comp Metabolic Dkw978 NA 137 mEq/L 05/18/2018 Comp Metabolic Hgr340 K 4.2 mEq/L 05/18/2018 Comp Metabolic Rlu473 CL 97 mEq/L 05/18/2018 Comp Metabolic Kis128 CO2 34.0 mEq/L 05/18/2018 Comp Metabolic Euf305 ANION GAP 10 05/18/2018 Comp Metabolic Zek878 GLUCOSE 177 mg/dL 05/18/2018 Comp Metabolic Aki399 Creat 0.5 mg/dL 05/18/2018 Comp Metabolic Rzk346 eGFR 122 ml/min/1.73m2 05/18/2018 Comp Metabolic Elk918 BUN 23 mg/dL 05/18/2018 Comp Metabolic Zhj581 B/C Ratio 43.4 Ratio 05/18/2018 Comp Metabolic Ylp437 CALCIUM 9.2 mg/dL 05/18/2018 Comp Metabolic Gta795 ALK PHOS 86 U/L 05/18/2018 Comp Metabolic Tft235 AST(SGOT) 14 U/L 05/18/2018 Comp Metabolic Jqw349 ALT(SGPT) 9 U/L 05/18/2018 Comp Metabolic Stm149 BILI T 0.3 mg/dL 05/18/2018 Comp Metabolic Qtt304 ALBUMIN 3.7 g/dL 05/18/2018 Comp Metabolic Iva660 TPRO 6.2 g/dL 05/18/2018 Comp Metabolic Djb218 GLOB 2.6 g/dL 05/18/2018 Comp Metabolic Dbh948 A/G Ratio 1.4 Ratio 05/18/2018 Comp Metabolic Qtg647 Osmo 282 mOsmo 05/18/2018 A1C Frequency Pbj076 A1CF 04382-9 Last A1[place] [facility] [place] [facility] [place]: 02-14-2018 05/10/2018 Cbc With Differential [...] 30.7 pg 02/14/2018 Cbc With Differential Ord2 [place]% 7.4 % 02/14/2018 Cbc With Differential Ord2 [...] 2.14 K/ul 02/14/2018 Cbc With Differential Ord2 [place] ABS# 0.5 K/ul 02/14/2018 Cbc With Differential Ord2 Eos ABS# 0.3 K/ul 02/14/2018 Cbc With Differential Ord2 Baso ABS# 0.0 K/ul 02/14/2018 Comp Metabolic Oat265 NA 142 mEq/L 02/14/2018 Comp Metabolic Ufc886 K 4.5 mEq/L 02/14/2018 Comp Metabolic Nyi588 CL 97 mEq/L 02/14/2018 Comp Metabolic Nga568 CO2 41.0 mEq/L 02/14/2018 Comp Metabolic Kgh203 ANION GAP 9 02/14/2018 Comp Metabolic Alr549 GLUCOSE 111 mg/dL 02/14/2018 Comp Metabolic Bbt366 Creat 0.6 mg/dL 02/14/2018 Comp Metabolic Sal995 eGFR 108 ml/min/1.73m2 02/14/2018 Comp Metabolic Vgu017 BUN 32 mg/dL 02/14/2018 Comp Metabolic Xse210 B/C Ratio 54.2 Ratio 02/14/2018 Comp Metabolic Des136 CALCIUM 8.9 mg/dL 02/14/2018 Comp Metabolic Tio070 ALK PHOS 81 U/L 02/14/2018 Comp Metabolic Xti728 AST(SGOT) 14 U/L 02/14/2018 Comp Metabolic Eiz401 ALT(SGPT) 11 U/L 02/14/2018 Comp Metabolic Iuv262 BILI T 0.3 mg/dL 02/14/2018 Comp Metabolic Wlf751 ALBUMIN 3.4 g/dL 02/14/2018 Comp Metabolic Sge346 TPRO 6.3 g/dL 02/14/2018 Comp Metabolic Qzt072 GLOB 2.9 g/dL 02/14/2018 Comp Metabolic Rzo557 A/G Ratio 1.2 Ratio 02/14/2018 Comp Metabolic Uld220 Osmo 291 mOsmo 02/14/2018 %Hba1C Aul336 % HbA1c 53802- 6 5.5 % 02/14/2018 %Hba1C Xbd446 Gluc Ave 111 mg/dL 02/14/2018 Prealbumin 316897 PREALBUMIN 27 mg/dL 11/24/2017 %Hba1C Ysj548 % HbA1c 59982- 6 5.5 % 11/04/2017 %Hba1C Sml248 Gluc Ave 111 mg/dL 11/04/2017 Culture Urine [id number] URINE CULTURE SEE NOTES 10/04/2017 Culture Urine [id number] Continued Results 10/04/2017 Urine Culture Ucult Complete [...] Ord28 U-Com Culture to follow 10/01/2017 B12 Hce741 B12 >1500.00 pg/ml 02/19/2017 Cbc With Differential [...] 31.5 pg 02/02/2017 Cbc With Differential Ord2 [place]% 8.3 % 02/02/2017 Cbc With Differential Ord2 [...] 2.28 K/ul 02/02/2017 Cbc With Differential Ord2 [place] ABS# 0.6 K/ul 02/02/2017 Cbc With Differential Ord2 Eos ABS# 0.4 K/ul 02/02/2017 Cbc With Differential Ord2 Baso ABS# 0.0 K/ul 02/02/2017 %Hba1C Axr710 % HbA1c 55460- 6 5.2 % 02/02/2017 %Hba1C Aab099 Gluc Ave 103 mg/dL 02/02/2017 Comp Metabolic Alb396 NA 138 mEq/L 02/02/2017 Comp Metabolic Pno037 K 4.5 mEq/L 02/02/2017 Comp Metabolic Olx583 CL 98 mEq/L 02/02/2017 Comp Metabolic Vde246 CO2 37.0 mEq/L 02/02/2017 Comp Metabolic Qll921 ANION GAP 8 02/02/2017 Comp Metabolic Gwh021 GLUCOSE 94 mg/dL 02/02/2017 Comp Metabolic Fin333 Creat 0.7 mg/dL 02/02/2017 Comp Metabolic Tkl394 eGFR 88 ml/min/1.73m2 02/02/2017 Comp Metabolic Psz700 BUN 36 mg/dL 02/02/2017 Comp Metabolic Ioq877 B/C Ratio 50.7 Ratio 02/02/2017 Comp Metabolic Zrz083 CALCIUM 9.0 mg/dL 02/02/2017 Comp Metabolic Xxt732 ALK PHOS 78 U/L 02/02/2017 Comp Metabolic Djz100 AST(SGOT) 22 U/L 02/02/2017 Comp Metabolic Xai077 ALT(SGPT) 28 U/L 02/02/2017 Comp Metabolic Box656 BILI T 0.3 mg/dL 02/02/2017 Comp Metabolic Rjr468 ALBUMIN 3.3 g/dL 02/02/2017 Comp Metabolic Lig577 TPRO 5.9 g/dL 02/02/2017 Comp Metabolic Drd853 GLOB 2.6 g/dL 02/02/2017 Comp Metabolic Ujs506 A/G Ratio 1.3 Ratio 02/02/2017 Comp Metabolic Fyk498 Osmo 284 mOsmo 02/02/2017 %Hba1C Mhe107 % HbA1c 35097- 6 5.0 % 10/29/2016 %Hba1C Wdy294 Gluc Ave 97 mg/dL 10/29/2016 Culture Urine [id number] URINE CULTURE SEE NOTES 09/21/2016 Culture Urine [id number] Continued Results 09/21/2016 Urine Culture Ucult Complete [...] 32.4 pg 07/30/2016 Cbc With Differential Ord2 [place]% 7.2 % 07/30/2016 Cbc With Differential Ord2 [...] 2.69 K/ul 07/30/2016 Cbc With Differential Ord2 [place] ABS# 0.5 K/ul 07/30/2016 Cbc With Differential Ord2 Eos ABS# 0.5 K/ul 07/30/2016 Cbc With Differential Ord2 Baso ABS# 0.0 K/ul 07/30/2016 Comp Metabolic Fws493 NA 141 mEq/L 07/30/2016 Comp Metabolic Ydm699 K 4.3 mEq/L 07/30/2016 Comp Metabolic Cxa918 CL 100 mEq/L 07/30/2016 Comp Metabolic Bnb912 CO2 33.0 mEq/L 07/30/2016 Comp Metabolic Lua857 ANION GAP 12 07/30/2016 Comp Metabolic Bdf144 GLUCOSE 64 mg/dL 07/30/2016 Comp Metabolic Mki894 Creat 0.5 mg/dL 07/30/2016 Comp Metabolic Ibn404 eGFR 126 ml/min/1.73m2 07/30/2016 Comp Metabolic Jlm435 BUN 25 mg/dL 07/30/2016 Comp Metabolic Viq112 B/C Ratio 48.1 Ratio 07/30/2016 Comp Metabolic Qys055 CALCIUM 8.9 mg/dL 07/30/2016 Comp Metabolic Aug716 ALK PHOS 90 U/L 07/30/2016 Comp Metabolic Myo077 AST(SGOT) 22 U/L 07/30/2016 Comp Metabolic Aso456 ALT(SGPT) 36 U/L 07/30/2016 Comp Metabolic Zer294 BILI T 0.3 mg/dL 07/30/2016 Comp Metabolic Wts620 ALBUMIN 3.4 g/dL 07/30/2016 Comp Metabolic Amu453 TPRO 6.0 g/dL 07/30/2016 Comp Metabolic Pse807 GLOB 2.7 g/dL 07/30/2016 Comp Metabolic Bia482 A/G Ratio 1.3 Ratio 07/30/2016 Comp Metabolic Wgs390 Osmo 284 mOsmo 07/30/2016 A1C Frequency Axg554 A1CF 76431-4 Last A1[place] [facility] [place] [facility] [place]: 05-12-2016 07/30/2016 %Hba1C Lux446 % HbA1c 65449- 6 5.2 % 05/12/2016 %Hba1C Gsg992 Gluc Ave 103 mg/dL 05/12/2016 Culture Urine [id number] URINE CULTURE SEE NOTES 05/11/2016 Urine Culture [...] U-Com Culture to follow 05/06/2016 Culture Urine [id number] URINE CULTURE SEE NOTES 03/17/2016 Culture Urine [id number] Continued Results 03/17/2016 Urine Culture Ucult Complete [...] 32.0 pg 02/11/2016 Cbc With Differential Ord2 [place]% 9.1 % 02/11/2016 Cbc With Differential Ord2 [...] 2.59 K/ul 02/11/2016 Cbc With Differential Ord2 [place] ABS# 0.6 K/ul 02/11/2016 Cbc With Differential Ord2 Eos ABS# 0.3 K/ul 02/11/2016 Cbc With Differential Ord2 Baso ABS# 0.0 K/ul 02/11/2016 Comp Metabolic Sxn227 NA 137 mEq/L 02/11/2016 Comp Metabolic Tsc998 K 4.4 mEq/L 02/11/2016 Comp Metabolic Slo088 CL 100 mEq/L 02/11/2016 Comp Metabolic Cvi642 CO2 25.0 mEq/L 02/11/2016 Comp Metabolic Iou004 ANION GAP 16 02/11/2016 Comp Metabolic Fjj707 GLUCOSE 99 mg/dL 02/11/2016 Comp Metabolic Ktl127 Creat 0.6 mg/dL 02/11/2016 Comp Metabolic Drn319 eGFR 99 ml/min/1.73m2 02/11/2016 Comp Metabolic Aaj797 BUN 27 mg/dL 02/11/2016 Comp Metabolic Tny100 B/C Ratio 42.2 Ratio 02/11/2016 Comp Metabolic Xaa619 CALCIUM 9.2 mg/dL 02/11/2016 Comp Metabolic Tnt437 ALK PHOS 74 U/L 02/11/2016 Comp Metabolic Lwf804 AST(SGOT) 24 U/L 02/11/2016 Comp Metabolic Anr786 ALT(SGPT) 26 U/L 02/11/2016 Comp Metabolic Six282 BILI T 0.5 mg/dL 02/11/2016 Comp Metabolic Soi039 ALBUMIN 3.5 g/dL 02/11/2016 Comp Metabolic Gwd387 TPRO 6.2 g/dL 02/11/2016 Comp Metabolic Gfh248 GLOB 2.7 g/dL 02/11/2016 Comp Metabolic Cke951 A/G Ratio 1.3 Ratio 02/11/2016 Comp Metabolic Teh101 Osmo 279 mOsmo 02/11/2016 Review of Systems [...] 1: 128/86 Code: 8480-6 BMI: 31.4 Code: 15161-1 Heart Rate 1: 72 bpm Height: 5'1" Weight: 166 lbs 06/17/2015 Blood Pressure 1: 110/78 Code: 8480-6 BMI: 33.3 Code: 94604-3 Heart Rate 1: 74 bpm Height: 5'1" [...] data Encounters Encounter Performer Location Codes Date ([id number]) 91629 EST. PATIENT, LEVEL IV Diagnosis: Essential (primary) hypertension[ICD10: I10] Diagnosis: Type 2 diabetes mellitus without complications[ICD10: E11.9] Diagnosis: Chronic pain syndrome[ICD10: G89.4] Diagnosis: Encounter for palliative care[ICD10: Z51.5] Vonda Everett MD, [facility] CPT-4: 41560 07/13/2018 ([id number]) 93227 EST. PATIENT, LEVEL IV Diagnosis: Essential (primary) hypertension[ICD10: I10] Diagnosis: Chronic pain syndrome[ICD10: G89.4] Diagnosis: Type 2 diabetes mellitus without complications[ICD10: E11.9] Diagnosis: Dysphagia following cerebral infarction[ICD10: I69.391] Carlyn Everett MD, [facility] CPT-4: 03121 05/17/2018 ([id number]) 88688 EST. PATIENT, LEVEL IV Diagnosis: Cough[ICD10: R05] Diagnosis: Pneumonia, unspecified organism[ICD10: J18.9] Diagnosis: Pain in right knee[ICD10: M25.561] Carlyn Everett MD, [facility] CPT- 4: 85813 03/18/2018 ([id number]) 13012 EST. PATIENT, LEVEL IV Diagnosis: Type 2 diabetes mellitus without complications[ICD10: E11.9] Diagnosis: Essential (primary) hypertension[ICD10: I10] Diagnosis: Chronic pain syndrome[ICD10: G89.4] Carlyn Everett MD, [facility] CPT-4: 44376 01/07/2018 ([id number]) 59671 EST. PATIENT, LEVEL IV Diagnosis: Essential (primary) hypertension[ICD10: I10] Diagnosis: Type 2 diabetes mellitus without complications[ICD10: E11.9] Carlyn Everett MD, [facility] CPT-4: 44202 2017 ([id number]) 90635 EST. PATIENT, LEVEL IV Diagnosis: Type 2 diabetes mellitus with hyperglycemia[ICD10: E11.65] Diagnosis: Essential (primary) hypertension[ICD10: I10] Diagnosis: Pain in left shoulder[ICD10: M25.512] Diagnosis: Pain in right shoulder[ICD10: M25.511] Diagnosis: Pain in left knee[ICD10: M25.562] Diagnosis: Pain in right knee[ICD10: M25.561] Vonda Everett MD, [facility] CPT- 4: 79002 09/09/2017 17040 EST. PATIENT, LEVEL IV Diagnosis: Essential (primary) hypertension[ICD10: I10] Diagnosis: Type 2 diabetes mellitus with hyperglycemia[ICD10: E11.65] Diagnosis: Low back pain[ICD10: M54.5] Sunitha Everett MD, [facility] CPT-4: 08135 06/08/2017 ([id number]) 36838 EST. PATIENT, LEVEL IV Diagnosis: Essential (primary) hypertension[ICD10: I10] Diagnosis: Type 2 diabetes mellitus with hyperglycemia[ICD10: E11.65] Diagnosis: Low back pain[ICD10: M54.5] Sunitha Everett MD, [facility] CPT-4: 07192 04/15/2017 ([id number]) 50717 EST. PATIENT, LEVEL IV Diagnosis: Essential (primary) hypertension[ICD10: I10] Diagnosis: Type 2 diabetes mellitus with hyperglycemia[ICD10: E11.65] Diagnosis: Low back pain[ICD10: M54.5] Vonda Everett MD, [facility] CPT-4: 64957 02/16/2017 65414 EST. 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 07/13/2018 Appointment: Vonda Everett WPtel: [facility] (15 min) Moderate 07/13/2018 Patient Education: Patient [...] monitor. 05/17/2018 Appointment: Carlyn Higginbotham WPtel: [phone] [phone] [place] (15 min) Moderate 05/17/2018 Patient Education: Patient Medication Summary Completed 05/17/2018 Patient Education: Hypertension Completed 05/17/2018 Patient Education: Diabetes Completed 05/17/2018 Appointment: Carlyn Higginbotham [phone] [place] (15 min) Moderate 04/07/2018 Visit Plan: Pneumonia - Pt has been diagnosed with pneumonia by physical exam. A chest xray has been ordered as have antibiotics. The pt is aware of the diagnosis and the need for acute treatment of this illness. Right knee pain -xray knee-rx for voltaren gel 03/18/2018 Appointment: Carlyn Higginbotham WPtel: [address] [place], [place] [phone] [place] (30 min) Complex 03/18/2018 Patient Education: Patient Medication Summary Completed 03/18/2018 Appointment: Carlyn Higginbotham WPtel: [address] [place], [place] [phone] [place] (30 min) Complex 03/17/2018 Appointment: Carlyn Higginbotham WPtel: [address] [place], [place] [phone] [place] (15 min) Moderate 03/10/2018 Appointment: Carlyn Higginbotham WPtel: [address] [place], [place] [phone] [place] (15 min) Moderate 02/08/2018 Visit Plan: DM -decrease levemir to 4 units daily -monitor blood sugars NLV-fnghjicuse-xn changes Chronic pain -well controlled with fentanyl patch -no changes at this time 01/07/2018 Appointment: Carlyn Higginbotham WPtel: [address] [place], [place] [phone] [place] (15 min) Moderate 01/07/2018 Patient Education: [...] HS 2017 Appointment: Carlyn Higginbotham WPtel: [phone] [phone] [place] (15 min) Moderate 2017 Patient Education: [...] 175mcg. 09/09/2017 [phone] [place] ([facility] min) Moderate 09/09/2017 Patient Education: [...] and PRN pain medications - will have senior care fax over PRN medication administration record. 06/08/2017 Appointment: Sun[facility] [phone] [facility] (30 min) Complex 06/08/2017 Patient Education: Patient [...] over-medication. 04/15/2017 Appointment: [phone] [facility] [place] ([place] min) Complex 04/15/2017 Patient Education: [...] hydrocodone today. 02/16/2017 Appointment: Vonda Everett WPtel: [phone] [facility] (15 min) Moderate 02/16/2017 Patient Education: [...] concerns. 11/09/2016 Appointment: [phone] [facility] ([place] min) Complex 11/09/2016 Patient Education: Patient Medication Summary Completed 11/09/2016 Care Plan: Referral Order SNOMED-CT : [id number] Pending 11/09/2016 Patient Education: Patient Medication Summary [...] Follow up weight in 1 month Neck kvqb-oozfiimasci-Nemd PT focus neck/upper body Right earache-cerumen removed with water pick today in the office 07/18/2015 Appointment: (30 min) Complex 07/18/2015 Patient Education: Patient Medication Summary Completed 07/18/2015 Patient Education: Obesity Completed 07/18/2015 Patient Education: .Cervicalgia Neck Pain Completed 07/18/2015 Referral: [facility] WPtel: [phone] [place] [phone] Referral Completed 06/25/2015 Visit Plan: Hypertension - [...] labs this week, get report from and [facility]. I spent over an hour with the patient in direct contact. 06/17/2015 Appointment: Vonda Everett WPtel: [address] [place], [place] [phone] New Patient 06/17/2015 Patient Education: Patient Medication Summary Completed 06/17/2015 Patient Education: Obesity Completed 06/17/2015 Patient Education: Hypertension Completed 06/17/2015 Care Plan: Referral Order SNOMED-CT : [id number] Ordered 06/17/2015 Referral: Jorge Luis Carroll Referral Initiated Referral: [facility] WPtel: [phone] [facility]66[facility] Referral Appointment Requested Instructions Comment . [...] Add 1 scoop of whey protein from [facility] to 2 feedings per day . Hypertension [...] Follow up weight in 1 month Neck bphz-ifmisnfwezo-Fmxs PT focus neck/upper body Right earache-cerumen removed with water pick today in the office . DM -decrease levemir to 4 units daily -monitor blood sugars FWR-hmhnsqvgus-iq changes Chronic pain -well controlled with fentanyl [...] pain -xray knee-rx for voltaren gel . PEG tube - tube has not [...] labs this week, get report from and [facility]. I spent over an hour with [...] and PRN pain medications - will have senior care fax over PRN medication administration record. . [...]
--- OUTSIDE RECORDS SUMMARY | 2018-08-09 10:51 | XMS REPORT | CCD ---
Author Author [facility] Organization [facility] Address [address] [place] [address] Phone Care Team Providers Care Library Information Technician Name Role Phone PP Unavailable CCM Unavailable Summary Purpose Interface Exchange Insurance Providers Payer name Policy type / Coverage type Covered green party ID Effective Begin Date Effective End Date WPS Medicare Part B Medicare Part B [id number] Unknown Unknown [place] Usp Life Insurance Medicare Part B [id number] Unknown Unknown Family history Father Diagnosis Age At Onset Arthritis Unknown Hypertension Unknown Mother Diagnosis Age At Onset Diabetes mellitus Type 2 Unknown Depression Unknown Arthritis Unknown Stroke Unknown Hypertension Unknown Sister Diagnosis Age At Onset Colon cancer Unknown Social History Social History Element Codes Description Effective Dates Marital status Unknown Maurice 01/07/2018 Living arrangements Unknown [facility] 04/15/2017 Number of children Unknown 3 06/17/2015 Employment Unknown Retired 06/17/[address]: 2003977 Quit over 10 years ago 15+ 06/17/[address]: 770718894 Never drinks alcohol 06/17/2015 Allergies, Adverse Reactions, [...] Instructions Duragesic 75 mcg/hr transdermal patch RxNorm: 578455 1 Patch TD Q72H 07/05/2018 08/03/2018 Active lorazepam 0.5 mg tablet RxNorm: 159772 1 Tablet(s) PO BID and 1 tab q 6 hours prn 07/05/2018 No Stop Date Active fentanyl 100 mcg/hr transdermal patch RxNorm: 439357 1 Patch TD Q72H 07/05/2018 08/03/2018 Active hydrocodone 10 mg-acetaminophen 325 mg tablet RxNorm: 757029 2 Tablet(s) PO scheduled TID 07/05/2018 07/19/2018 Active Not to exceed 3gm/24hr acetaminophen hydrocodone 10 mg-acetaminophen 325 mg tablet RxNorm: 539957 2 Tablet(s) PO scheduled TID 06/22/2018 07/04/2018 Inactive Not to exceed 3gm/24hr acetaminophen citalopram 40 mg tablet RxNorm: 596671 1 Tablet(s) PO daily 06/20/2018 05/15/2019 Active Voltaren 1 % topical gel RxNorm: 486044 APPLY 4 GRAMS TO RIGHT KNEE FOUR TIMES DAILY 06/13/2018 07/06/2018 Inactive Generic For:VOLTAREN GEL 1% 06/13/2018 10:59:02 AM hydrocodone 10 mg-acetaminophen 325 mg tablet RxNorm: 397338 2 Tablet(s) PO scheduled TID 06/07/2018 06/21/2018 Inactive Not to exceed 3gm/24hr acetaminophen fentanyl 100 mcg/hr transdermal patch RxNorm: 259135 1 Patch TD Q72H 06/03/2018 07/02/2018 Inactive Duragesic 75 mcg/hr transdermal patch RxNorm: 551960 1 Patch TD Q72H 06/03/2018 07/02/2018 Inactive hyoscyamine 0.125 mg disintegrating tablet RxNorm: 9457929 Tablet(s) Tablet(s) 1-2 Tablet(s) PO Q8 as needed 05/27/2018 No Stop Date Active lorazepam 0.5 mg tablet RxNorm: 149010 1 Tablet(s) PO BID and 1 tab q 6 hours prn 05/24/2018 No Stop Date Active hydrocodone 10 mg-acetaminophen 325 mg tablet RxNorm: 125174 2 Tablet(s) PO scheduled TID 05/24/2018 06/06/2018 Inactive Not to exceed 3gm/24hr acetaminophen citalopram 20 mg tablet RxNorm: 414675 1 Tablet(s) PO daily 05/17/2018 06/19/2018 Inactive hydrocodone 10 mg-acetaminophen 325 mg tablet RxNorm: 111914 2 Tablet(s) PO scheduled TID 04/19/2018 05/18/2018 Inactive Not to exceed 3gm/24hr acetaminophen lorazepam 0.5 mg tablet RxNorm: 593922 1 Tablet(s) PO BID and 1 tab q 6 hours prn 04/07/2018 05/23/2018 Inactive hyoscyamine 0.125 mg disintegrating tablet RxNorm: 2564981 Tablet(s) 1-2 Tablet(s) PO Q8 as needed 03/31/2018 05/26/2018 Inactive Duragesic 75 mcg/hr transdermal patch RxNorm: 694460 1 Patch TD Q72H 03/31/2018 04/29/2018 Inactive fentanyl 100 mcg/hr transdermal patch RxNorm: 879505 1 Patch TD Q72H 03/31/2018 04/29/2018 Inactive carvedilol 3.125 mg tablet RxNorm: 733119 Tablet(s) GIVE 1 TABLET VIA PEG TUBE 2 TIMES A DAY 03/30/2018 06/27/2018 Inactive Generic For:COREG 3.125MG 10/22/2017 9:23:30 AM Voltaren 1 % topical gel RxNorm: 379070 APPLY 4 GRAMS TO RIGHT KNEE FOUR TIMES DAILY 03/30/2018 04/22/2018 Inactive Generic For:VOLTAREN GEL 1% 03/30/2018 11:14:57 AM hydrocodone 10 mg-acetaminophen 325 mg tablet RxNorm: 077351 2 Tablet(s) PO scheduled TID 03/23/2018 04/18/2018 Inactive Not to exceed 3gm/24hr acetaminophen albuterol sulfate concentrate 5 mg/mL(0.5 %) solution for nebulization RxNorm: 354638 1 Vial Milliliter(s) INH TID PRN as needed congestion 03/18/2018 No Stop Date Active cefdinir 300 mg capsule RxNorm: 264356 1 Capsule(s) PO BID 03/18/2018 03/24/2018 Inactive Zithromax Z-Eliu 250 mg tablet RxNorm: 409047 Tablet(s) PO 03/18/2018 05/16/2018 Inactive Voltaren 1 % topical gel RxNorm: 421913 4 Gram(s) TOP QID 03/18/2018 03/29/2018 Inactive hydrochlorothiazide 25 mg tablet RxNorm: 446892 GIVE 1 TABLET VIA PEG TUBE ONCE DAILY 03/11/2018 09/06/2018 Active Generic For:HYDRODIURIL 25 MG TABLET 03/11/2018 9:15:32 AM fentanyl 100 mcg/hr transdermal patch RxNorm: 121395 1 Patch TD Q72H 03/02/2018 03/30/2018 Inactive Duragesic 75 mcg/hr transdermal patch RxNorm: 970289 1 Patch TD Q72H 03/02/2018 03/30/2018 Inactive hydrocodone 10 mg-acetaminophen 325 mg tablet RxNorm: 404559 2 Tablet(s) PO scheduled TID 02/18/2018 03/22/2018 Inactive Not to exceed 3gm/24hr acetaminophen hyoscyamine 0.125 mg disintegrating tablet RxNorm: 0795941 Tablet(s) 1-2 Tablet(s) PO Q8 as needed 02/08/2018 03/30/2018 Inactive fentanyl 100 mcg/hr transdermal patch RxNorm: 425882 1 Patch TD Q72H 02/04/2018 03/01/2018 Inactive hydrocodone 10 mg-acetaminophen 325 mg tablet RxNorm: 010206 2 Tablet(s) PO scheduled TID 02/04/2018 02/17/2018 Inactive Not to exceed 3gm/24hr acetaminophen Duragesic 75 mcg/hr transdermal patch RxNorm: 925786 1 Patch TD Q72H 02/04/2018 03/01/2018 Inactive Duragesic 75 mcg/hr transdermal patch RxNorm: 189599 1 Patch TD Q72H 01/07/2018 02/03/2018 Inactive Levemir FlexTouch U-100 Insulin 100 unit/mL (3 mL) subcutaneous pen RxNorm: 677375 4 Unit(s) SQ QHS 01/07/2018 07/13/2018 Inactive fentanyl 100 mcg/hr transdermal patch RxNorm: 871837 1 Patch TD Q72H 01/07/2018 02/03/2018 Inactive hydrocodone 10 mg-acetaminophen 325 mg tablet RxNorm: 068221 2 Tablet(s) PO scheduled TID 01/05/2018 02/03/2018 Inactive Not to exceed 3gm/24hr acetaminophen hydrocodone 10 mg-acetaminophen 325 mg tablet RxNorm: 844976 2 Tablet(s) PO scheduled TID and 1 tab q 4 as needed 01/04/2018 01/04/2018 Inactive Not to exceed 3gm/24hr acetaminophen cyanocobalamin (vit B-12) 1,000 mcg tablet RxNorm: 219321 1 Tablet(s) PO daily 12/28/2017 11/22/2018 Active baclofen 10 mg tablet RxNorm: 765943 Tablet(s) TAKE 1 TABLET THREE TIMES DAILY VIA STOMACH TUBE 12/27/2017 05/25/2018 Inactive 10/07/2017 5:36:15 PM 10/07/2017 5:36:13 PM N O T I C E Last quantity doesn't match original quantity Duragesic 75 mcg/hr transdermal patch RxNorm: 934285 1 Patch TD Q72H 12/22/2017 01/06/2018 Inactive fentanyl 100 mcg/hr transdermal patch RxNorm: 935601 1 Patch TD Q72H 12/22/2017 01/06/2018 Inactive hydrocodone 10 mg-acetaminophen 325 mg tablet RxNorm: 250998 2 Tablet(s) PO scheduled TID and 1 tab q 4 as needed 12/20/2017 01/03/2018 Inactive Not to exceed 3gm/24hr acetaminophen hyoscyamine 0.125 mg disintegrating tablet RxNorm: 6564047 1-2 Tablet(s) PO Q8 as needed 12/14/2017 02/07/2018 Inactive Duragesic 75 mcg/hr transdermal patch RxNorm: 958228 1 Patch TD Q72H 12/06/2017 12/21/2017 Inactive fentanyl 100 mcg/hr transdermal patch RxNorm: 033302 1 Patch TD Q72H 12/06/2017 12/21/2017 Inactive hydrocodone 10 mg-acetaminophen 325 mg tablet RxNorm: 928229 2 Tablet(s) PO scheduled TID and 1 tab q 4 as needed 11/29/2017 12/19/2017 Inactive Not to exceed 3gm/24hr acetaminophen Duragesic 75 mcg/hr transdermal patch RxNorm: 747791 1 Patch TD Q72H 11/11/2017 12/05/2017 Inactive hydrocodone 10 mg-acetaminophen 325 mg tablet RxNorm: 427014 2 Tablet(s) PO scheduled TID and 1 tab q 4 as needed 11/09/2017 11/28/2017 Inactive Not to exceed 3gm/24hr acetaminophen Levemir FlexTouch U-100 Insulin 100 unit/mL (3 mL) subcutaneous pen RxNorm: 444909 8 Unit(s) SQ QHS 11/09/2017 01/06/2018 Inactive fentanyl 100 mcg/hr transdermal patch RxNorm: 990978 1 Patch TD Q72H 2017 12/05/2017 Inactive hyoscyamine 0.125 mg disintegrating tablet RxNorm: 8071764 1-2 Tablet(s) PO Q8 as needed 11/03/2017 12/13/2017 Inactive carvedilol 3.125 mg tablet RxNorm: 137158 GIVE 1 TABLET VIA PEG TUBE 2 TIMES A DAY 10/22/2017 01/19/2018 Inactive Generic For:COREG 3.125MG 10/22/2017 9:23:30 AM hydrocodone 10 mg-acetaminophen 325 mg tablet RxNorm: 472911 2 Tablet(s) PO scheduled TID and 1 tab q 4 as needed 10/22/2017 2017 Inactive Not to exceed 3gm/24hr acetaminophen fentanyl 100 mcg/hr transdermal patch RxNorm: 694498 1 Patch TD Q72H 10/20/2017 11/07/2017 Inactive Duragesic 75 mcg/hr transdermal patch RxNorm: 299091 1 Patch TD Q72H 10/20/2017 11/10/2017 Inactive lorazepam 0.5 mg tablet RxNorm: 834786 1 Tablet(s) PO BID and 1 tab q 6 hours prn 10/18/2017 07/04/2018 Inactive baclofen 10 mg tablet RxNorm: 117783 TAKE 1 TABLET THREE TIMES DAILY VIA STOMACH TUBE 10/07/2017 12/26/2017 Inactive 10/07/2017 5:36:15 PM 10/07/2017 5:36:13 PM N O T I C E Last quantity doesn't match original quantity cranberry extract 500 mg tablet RxNorm: 9646352 1 Tablet(s) PO QAM 10/04/2017 01/31/2018 Inactive Cipro 500 mg tablet RxNorm: 146559 1 Tablet(s) PO BID 10/04/2017 10/03/2017 Inactive dc keflex hydrocodone 10 mg-acetaminophen 325 mg tablet RxNorm: 856163 2 Tablet(s) PO scheduled TID as needed 10/04/2017 10/21/2017 Inactive Not to exceed 3gm/24hr acetaminophen cranberry extract 500 mg tablet RxNorm: 7708994 1 Tablet(s) PO QAM 10/04/2017 10/03/2017 Inactive Cipro 500 mg tablet RxNorm: 465890 1 Tablet(s) PO BID 10/04/2017 10/10/2017 Inactive dc keflex Duragesic 75 mcg/hr transdermal patch RxNorm: 305011 1 Patch TD Q72H 09/20/2017 10/19/2017 Inactive fentanyl 100 mcg/hr transdermal patch RxNorm: 795554 1 Patch TD Q72H 09/20/2017 10/19/2017 Inactive hyoscyamine 0.125 mg disintegrating tablet RxNorm: 3598020 1 Tablet(s) PO TID and 1 Tablet Q4H prn increased secretions 09/15/2017 11/02/2017 Inactive hydrocodone 10 mg-acetaminophen 325 mg tablet RxNorm: 527728 2 Tablet(s) PO scheduled TID and 1-2 Tabs Q4H PRN pain 09/15/2017 10/03/2017 Inactive Not to exceed 3gm/24hr acetaminophen lorazepam 0.5 mg tablet RxNorm: 363918 1 Tablet(s) PO BID 09/15/2017 10/17/2017 Inactive Lexapro 10 mg tablet RxNorm: 327574 1 Tablet(s) PO daily 09/10/2017 09/14/2017 Inactive Levemir FlexTouch U-100 Insulin 100 unit/mL (3 mL) subcutaneous pen RxNorm: 791806 10 Unit(s) daily 09/09/2017 09/15/2017 Inactive lisinopril 10 mg tablet RxNorm: 827840 1 Tablet(s) PO daily 09/09/2017 05/16/2018 Inactive Duragesic 75 mcg/hr transdermal patch RxNorm: 535722 1 Patch TD Q72H 09/09/2017 09/19/2017 Inactive nystatin 100,000 unit/gram topical cream RxNorm: 248263 1 Gram(s) TOP TID until healed to gaulding 09/06/2017 07/12/2018 Inactive nystatin 100,000 unit/gram topical cream RxNorm: 669628 1 Gram(s) TOP TID until healed to gaulding 09/06/2017 09/05/2017 Inactive hydrocodone 10 mg-acetaminophen 325 mg tablet RxNorm: 458656 2 Tablet(s) PO scheduled TID as needed 08/31/2017 09/14/2017 Inactive Not to exceed 3gm/24hr acetaminophen fentanyl 100 mcg/hr transdermal patch RxNorm: 229740 1 Patch TD Q72H 08/24/2017 09/19/2017 Inactive fentanyl 50 mcg/hr transdermal patch RxNorm: 572267 1 Patch TD Q72H 08/24/2017 09/08/2017 Inactive fentanyl 25 mcg/hr transdermal patch RxNorm: 125775 1 Patch TD Q72H 08/24/2017 08/24/2017 Inactive hyoscyamine 0.125 mg disintegrating tablet RxNorm: 7103135 Tablet(s) 1-2 Tablet(s) PO Q8 as needed 08/23/2017 09/14/2017 Inactive hydrocodone 10 mg-acetaminophen 325 mg tablet RxNorm: 783191 1 Tablet(s) PO scheduled TID et Q6 hours as needed 08/18/2017 08/30/2017 Inactive Not to exceed 3gm/24hr acetaminophen hydrochlorothiazide 25 mg tablet RxNorm: 169601 GIVE 1 TABLET VIA PEG TUBE ONCE DAILY 08/17/2017 02/12/2018 Inactive Generic For:HYDRODIURIL 25 MG TABLET 08/17/2017 9:01:54 AM08/11/2017 10:12:00 AM lorazepam 0.5 mg tablet RxNorm: 516816 1/2 Tablet(s) PO BID 08/03/2017 09/14/2017 Inactive fentanyl 100 mcg/hr transdermal patch RxNorm: 184720 1 Patch TD Q72H 07/26/2017 08/23/2017 Inactive fentanyl 25 mcg/hr transdermal patch RxNorm: 466615 1 Patch TD Q72H 07/26/2017 08/23/2017 Inactive hydrocodone 10 mg-acetaminophen 325 mg tablet RxNorm: 283287 1 Tablet(s) PO scheduled TID et Q6 hours as needed 07/16/2017 08/14/2017 Inactive Not to exceed 3gm/24hr acetaminophen hyoscyamine 0.125 mg disintegrating tablet RxNorm: 0202452 Tablet(s) 1-2 Tablet(s) PO Q8 as needed 07/13/2017 08/01/2017 Inactive baclofen 10 mg tablet RxNorm: 523857 TAKE 1 TABLET THREE TIMES DAILY VIA STOMACH TUBE 07/12/2017 10/06/2017 Inactive 07/12/2017 9:04:08 AM N O T I C E Last quantity doesn't match original quantity lorazepam 0.5 mg tablet RxNorm: 174118 1/2 Tablet(s) PO BID 07/02/2017 08/02/2017 Inactive fentanyl 100 mcg/hr transdermal patch RxNorm: 485395 1 Patch TD Q72H 06/28/2017 07/25/2017 Inactive fentanyl 25 mcg/hr transdermal patch RxNorm: 967550 1 Patch TD Q72H 06/28/2017 07/25/2017 Inactive hyoscyamine 0.125 mg disintegrating tablet RxNorm: 8210404 Tablet(s) 1-2 Tablet(s) PO Q8 as needed 06/03/2017 06/22/2017 Inactive fentanyl 25 mcg/hr transdermal patch RxNorm: 318981 1 Patch TD Q72H 05/26/2017 06/24/2017 Inactive Levemir FlexTouch U-100 Insulin 100 unit/mL (3 mL) subcutaneous pen RxNorm: 967558 20 Unit(s) SQ BID 05/26/2017 09/08/2017 Inactive fentanyl 100 mcg/hr transdermal patch RxNorm: 235910 1 Patch TD Q72H 05/26/2017 06/24/2017 Inactive hydrocodone 10 mg-acetaminophen 325 mg tablet RxNorm: 141609 1 Tablet(s) PO scheduled BID et Q6 hours as needed 05/12/2017 05/11/2017 Inactive hydrocodone 10 mg-acetaminophen 325 mg tablet RxNorm: 647370 1 Tablet(s) PO scheduled TID et Q6 hours as needed 05/12/2017 06/10/2017 Inactive Not to exceed 3gm/24hr acetaminophen docusate sodium 100 mg tablet RxNorm: 0558850 1 Tablet(s) PO BID as needed if no bowel movement 05/10/2017 05/09/2017 Inactive lisinopril 20 mg tablet RxNorm: 454009 1 Tablet(s) PO daily 05/10/2017 09/08/2017 Inactive docusate sodium 100 mg tablet RxNorm: 7374383 1 Tablet(s) PO BID as needed if no bowel movement 05/10/2017 09/14/2017 Inactive fentanyl 25 mcg/hr transdermal patch RxNorm: 408215 1 Patch TD Q72H 05/03/2017 05/25/2017 Inactive lorazepam 0.5 mg tablet RxNorm: 767339 1/2 Tablet(s) PO BID 05/03/2017 07/01/2017 Inactive fentanyl 100 mcg/hr transdermal patch RxNorm: 910535 1 Patch TD Q72H 04/27/2017 05/25/2017 Inactive carvedilol 3.125 mg tablet RxNorm: 022967 Tablet(s) GIVE 1 TABLET VIA PEG TUBE DAILY 04/15/2017 10/21/2017 Inactive Levemir FlexTouch 100 unit/mL (3 mL) subcutaneous insulin pen RxNorm: 128042 10 Unit(s) SQ BID 04/15/2017 2017 Inactive hyoscyamine 0.125 mg disintegrating tablet RxNorm: 2954767 1-2 Tablet(s) PO Q8 as needed 04/14/2017 05/03/2017 Inactive hydrocodone 10 mg-acetaminophen 325 mg tablet RxNorm: 438236 1 Tablet(s) PO scheduled BID et Q6 hours as needed 04/13/2017 05/02/2017 Inactive baclofen 10 mg tablet RxNorm: 308039 TAKE 1 TABLET THREE TIMES DAILY VIA STOMACH TUBE 04/08/2017 05/22/2017 Inactive 04/08/2017 9:32:07 AM fentanyl 25 mcg/hr transdermal patch RxNorm: 672793 1 Patch TD Q72H 04/05/2017 05/02/2017 Inactive lidocaine 10 mg/mL (1 %) injection solution RxNorm: 6006011 1 Milliliter(s) Inj daily Mix with rocephin 03/31/2017 03/30/2017 Inactive Pt resides at [facility] lidocaine 10 mg/mL (1 %) injection solution RxNorm: 8172040 1 Milliliter(s) Inj daily Mix with rocephin 03/31/2017 04/06/2017 Inactive Pt resides at [facility] fentanyl 100 mcg/hr transdermal patch RxNorm: 425944 1 Patch TD Q72H 03/29/2017 04/26/2017 Inactive nystatin 100,000 unit/gram topical powder RxNorm: 952074 APPLY UNDER BREASTS TWICE DAILY FOR YEAST SKIN INFECTION AND APPLY TO UNDERARM AND ABDOMINAL FOLDS AND PERIAREA TWICE DAILY 03/29/2017 03/28/2017 Inactive 03/27/2017 9:12:50 AM nystatin 100,000 unit/gram topical powder RxNorm: 148948 APPLY UNDER BREASTS TWICE DAILY FOR YEAST SKIN INFECTION AND APPLY TO UNDERARM AND ABDOMINAL FOLDS AND PERIAREA TWICE DAILY 03/29/2017 09/14/2017 Inactive 03/29/2017 9:42:55 AM03/27/2017 9:12:50 AM hyoscyamine 0.125 mg disintegrating tablet RxNorm: 1122598 1-2 Tablet(s) PO Q8 as needed 03/08/2017 03/27/2017 Inactive fentanyl 25 mcg/hr transdermal patch RxNorm: 156418 1 Patch TD Q72H 03/02/2017 03/31/2017 Inactive hydrocodone 10 mg-acetaminophen 325 mg tablet RxNorm: 565823 1 Tablet(s) PO scheduled BID et Q6 hours as needed 02/17/2017 03/18/2017 Inactive fentanyl 100 mcg/hr transdermal patch RxNorm: 874386 1 Patch TD Q72H 02/17/2017 03/18/2017 Inactive Lexapro 10 mg tablet RxNorm: 399707 1 Tablet(s) PO daily 02/05/2017 04/14/2017 Inactive Lexapro 10 mg tablet RxNorm: 256738 1 Tablet(s) PO daily 02/05/2017 02/04/2017 Inactive fentanyl 25 mcg/hr transdermal patch RxNorm: 282532 1 Patch TD Q72H 02/04/2017 03/01/2017 Inactive cyanocobalamin (vit B-12) 1,000 mcg tablet RxNorm: 625702 1 Tablet(s) PO daily 01/18/2017 12/13/2017 Inactive hyoscyamine 0.125 mg disintegrating tablet RxNorm: 9555361 Tablet(s) 1-2 Tablet(s) PO Q8 as needed 01/18/2017 02/06/2017 Inactive baclofen 10 mg tablet RxNorm: 726163 TAKE 1 TABLET THREE TIMES DAILY VIA STOMACH TUBE 01/04/2017 02/17/2017 Inactive 01/04/2017 9:25:18 AM fentanyl 100 mcg/hr transdermal patch RxNorm: 065356 1 Patch TD Q72H 12/25/2016 01/23/2017 Inactive hydrochlorothiazide 25 mg tablet RxNorm: 539583 Tablet(s) GIVE 1 TABLET VIA PEG TUBE ONCE A DAY 12/14/2016 07/11/2017 Inactive fentanyl 100 mcg/hr transdermal patch RxNorm: 741260 1 Patch TD Q72H 11/25/2016 12/24/2016 Inactive hyoscyamine 0.125 mg disintegrating tablet RxNorm: 1498218 Tablet(s) 1-2 Tablet(s) PO Q8 as needed 11/25/2016 12/14/2016 Inactive nystatin 100,000 unit/gram topical powder RxNorm: 901410 APPLY UNDER BREASTS TWICE DAILY FOR YEAST SKIN INFECTION AND APPLY TO UNDERARM AND ABDOMINAL FOLDS AND PERIAREA TWICE DAILY 11/24/2016 01/22/2017 Inactive 11/24/2016 9:34:02 AM hydrocodone 10 mg-acetaminophen 325 mg tablet RxNorm: 706359 1 Tablet(s) PO scheduled BID et Q6 hours as needed 11/02/2016 12/01/2016 Inactive cyanocobalamin (vit B-12) 1,000 mcg tablet RxNorm: 107770 1 Tablet(s) PO daily 11/02/2016 01/17/2017 Inactive hyoscyamine 0.125 mg disintegrating tablet RxNorm: 0343348 1-2 Tablet(s) PO Q8 as needed 10/19/2016 11/24/2016 Inactive fentanyl 100 mcg/hr transdermal patch RxNorm: 225852 1 Patch TD Q72H 10/13/2016 11/11/2016 Inactive hydrocodone 10 mg-acetaminophen 325 mg tablet RxNorm: 929236 1 Tablet(s) PO scheduled BID et Q6 hours as needed 10/05/2016 11/01/2016 Inactive baclofen 10 mg tablet RxNorm: 122174 TAKE 1 TABLET THREE TIMES DAILY VIA STOMACH TUBE 10/01/2016 11/14/2016 Inactive 10/01/2016 9:24:37 AM carvedilol 3.125 mg tablet RxNorm: 029954 GIVE 1 TABLET VIA PEG TUBE 2 TIMES A DAY 09/30/2016 12/28/2016 Inactive Generic For:COREG 3.125MG 09/30/2016 1:12:28 PM09/25/2016 9:06:11 AM Probiotic Blend 2 million cell-50 mg capsule RxNorm: 1 Capsule(s) PO BID 09/17/2016 09/23/2016 Inactive Keflex 500 mg capsule RxNorm: 008994 1 Capsule(s) PO TID 09/17/2016 09/23/2016 Inactive hyoscyamine 0.125 mg/5 mL oral elixir RxNorm: 1314117 5 Milliliter(s) PO TID 09/08/2016 09/17/2016 Inactive hyoscyamine 0.125 mg/5 mL oral elixir RxNorm: 6325706 5 Milliliter(s) PO TID 09/08/2016 09/07/2016 Inactive hyoscyamine 0.125 mg disintegrating tablet RxNorm: 7419814 1-2 Tablet(s) PO Q8 as needed 09/07/2016 10/18/2016 Inactive fentanyl 100 mcg/hr transdermal patch RxNorm: 368519 1 Patch TD Q72H 09/01/2016 09/30/2016 Inactive ranitidine 150 mg tablet RxNorm: 680065 1 Tablet(s) PO BID 08/25/2016 No Stop Date Active hydrocodone 10 mg-acetaminophen 325 mg tablet RxNorm: 373767 1 Tablet(s) PO scheduled BID et Q6 hours as needed 08/24/2016 09/22/2016 Inactive cyanocobalamin (vit B-12) 1,000 mcg tablet RxNorm: 266671 1 Tablet(s) PO daily 08/12/2016 11/01/2016 Inactive cyanocobalamin (vit B-12) 1,000 mcg tablet RxNorm: 359107 1 Tablet(s) PO daily 08/12/2016 08/11/2016 Inactive hydrocodone 10 mg-acetaminophen 325 mg tablet RxNorm: 317586 1-2 Tablet(s) PO Q6 as needed 08/03/2016 08/17/2016 Inactive fentanyl 100 mcg/hr transdermal patch RxNorm: 961583 1 Patch TD Q72H 08/03/2016 08/31/2016 Inactive nystatin 100,000 unit/gram topical powder RxNorm: 322881 APPLY UNDER BREASTS TWICE DAILY FOR YEAST SKIN INFECTION AND APPLY TO UNDERARM AND ABDOMINAL FOLDS AND PERIAREA TWICE DAILY 07/17/2016 09/14/2016 Inactive 07/17/2016 3:56:54 PM fentanyl 100 mcg/hr transdermal patch RxNorm: 759892 1 Patch TD Q72H 07/15/2016 08/02/2016 Inactive lisinopril 20 mg tablet RxNorm: 032227 1 Tablet(s) PO daily 07/02/2016 03/28/2017 Inactive hydrocodone 10 mg-acetaminophen 325 mg tablet RxNorm: 152461 1-2 Tablet(s) PO Q6 as needed 07/01/2016 07/15/2016 Inactive Xarelto 20 mg tablet RxNorm: 5331953 Tablet(s) TAKE 1 TABLET VIA PEG TUBE AT BEDTIME 06/19/2016 04/14/2017 Inactive fentanyl 100 mcg/hr transdermal patch RxNorm: 683019 1 Patch TD Q72H 06/17/2016 07/14/2016 Inactive nystatin 100,000 unit/gram topical powder RxNorm: 227141 APPLY TO UNDER BREASTS TWICE DAILY FOR YEAST SKIN INFECTION AND APPLY TO UNDERARM AND ABDOMINAL FOLDS AND PERIAREA TWICE DAILY 06/15/2016 07/16/2016 Inactive Generic For:MYCOSTATIN 100,000 UNITS/GM PW 06/15/2016 12:28:26 PM fentanyl 100 mcg/hr transdermal patch RxNorm: 422020 1 Patch TD Q72H 06/05/2016 06/16/2016 Inactive hydrocodone 10 mg-acetaminophen 325 mg tablet RxNorm: 224293 1-2 Tablet(s) PO Q6 as needed 06/02/2016 06/16/2016 Inactive Probiotic Blend 2 million cell-50 mg capsule RxNorm: 1 Capsule(s) PO BID 05/13/2016 05/19/2016 Inactive nitrofurantoin 100 mg capsule RxNorm: 739766 1 Capsule(s) PO BID 05/13/2016 05/19/2016 Inactive nitrofurantoin 100 mg capsule RxNorm: 928577 1 Capsule(s) PO BID 05/13/2016 05/12/2016 Inactive fentanyl 75 mcg/hr transdermal patch RxNorm: 462455 1 Patch TD Q72H 05/13/2016 06/04/2016 Inactive Keflex 500 mg capsule RxNorm: 813175 1 Capsule(s) PO TID 05/07/2016 05/13/2016 Inactive Patient at [facility] Keflex 500 mg capsule RxNorm: 142136 1 Capsule(s) PO TID 05/07/2016 05/06/2016 Inactive hydrocodone 10 mg-acetaminophen 325 mg tablet RxNorm: 691778 1-2 Tablet(s) PO Q6 as needed 05/04/2016 06/01/2016 Inactive hydrochlorothiazide 25 mg tablet RxNorm: 867847 Tablet(s) GIVE 1 TABLET VIA PEG TUBE ONCE A DAY 04/29/2016 11/24/2016 Inactive hydrochlorothiazide 25 mg tablet RxNorm: 491265 GIVE 1 TABLET VIA PEG TUBE ONCE A DAY 04/22/2016 04/28/2016 Inactive Generic For:HYDRODIURIL 25 MG TABLET refill request fentanyl 75 mcg/hr transdermal patch RxNorm: 903021 1 Patch TD Q72H 04/17/2016 05/12/2016 Inactive Xarelto 20 mg tablet RxNorm: 7164350 TAKE 1 TABLET VIA PEG TUBE AT BEDTIME 04/16/2016 06/14/2016 Inactive 04/16/2016 9:08:52 AM citalopram 40 mg tablet RxNorm: 850100 1 Tablet(s) PO daily 04/02/2016 02/25/2017 Inactive citalopram 40 mg tablet RxNorm: 406818 1 Tablet(s) PO daily 03/27/2016 04/01/2016 Inactive hydrocodone 10 mg-acetaminophen 325 mg tablet RxNorm: 721765 1-2 Tablet(s) PO Q6 as needed 03/27/2016 04/25/2016 Inactive fentanyl 75 mcg/hr transdermal patch RxNorm: 656782 1 Patch TD Q72H 03/18/2016 04/16/2016 Inactive hydrocodone 10 mg-acetaminophen 325 mg tablet RxNorm: 882192 1-2 Tablet(s) PO Q6 as needed 03/11/2016 03/26/2016 Inactive citalopram 40 mg tablet RxNorm: 811858 1 Tablet(s) PO daily 03/04/2016 03/26/2016 Inactive Levemir FlexTouch U-100 Insulin 100 unit/mL (3 mL) subcutaneous pen RxNorm: 758249 20 Unit(s) SQ BID 03/02/2016 09/27/2016 Inactive lisinopril 20 mg tablet RxNorm: 436064 1 Tablet(s) PO daily 02/25/2016 07/01/2016 Inactive Ativan 0.5 mg tablet RxNorm: 900962 1 Tablet(s) PO Q4H as needed 02/18/2016 04/14/2017 Inactive Xarelto 20 mg tablet RxNorm: 0554695 TAKE 1 TABLET VIA PEG TUBE AT BEDTIME 02/12/2016 04/11/2016 Inactive 02/12/2016 9:08:22 AM hydrocodone 10 mg-acetaminophen 325 mg tablet RxNorm: 664607 1-2 Tablet(s) PO Q6 as needed 02/12/2016 03/10/2016 Inactive fentanyl 75 mcg/hr transdermal patch RxNorm: 753001 1 Patch TD Q72H 02/11/2016 03/11/2016 Inactive citalopram 20 mg tablet RxNorm: 236471 1 Tablet(s) PO daily 01/28/2016 03/03/2016 Inactive fentanyl 75 mcg/hr transdermal patch RxNorm: 620203 1 TD Q72H 01/17/2016 02/10/2016 Inactive hydrocodone 10 mg-acetaminophen 325 mg tablet RxNorm: 294108 1-2 Tablet(s) PO Q6 as needed 01/07/2016 02/05/2016 Inactive fentanyl 50 mcg/hr transdermal patch RxNorm: 030947 1 TD Q72H 01/01/2016 01/16/2016 Inactive fentanyl 50 mcg/hr transdermal patch RxNorm: 952303 1 TD q 3 days 12/26/2015 12/31/2015 Inactive Xarelto 20 mg tablet RxNorm: 2563746 TAKE 1 TABLET VIA PEG TUBE AT BEDTIME 12/17/2015 02/11/2016 Inactive 12/16/2015 3:27:57 PM12/14/2015 9:45:17 AM hydrocodone 10 mg-acetaminophen 325 mg tablet RxNorm: 367983 1-2 Tablet(s) PO Q6 as needed 12/06/2015 01/04/2016 Inactive fentanyl 50 mcg/hr transdermal patch RxNorm: 099221 1 TD q 3 days 12/06/2015 12/25/2015 Inactive fentanyl 25 mcg/hr transdermal patch RxNorm: 683807 1 TD q 3 days 11/18/2015 12/05/2015 Inactive Zithromax Z-Eliu 250 mg tablet RxNorm: 342044 1 Tablet(s) PO UD 10/09/2015 02/26/2016 Inactive z pack as directed- please write out instructions- pt at [facility] nystatin 100,000 unit/gram topical powder RxNorm: 000233 APPLY TO UNDER BREASTS TWICE DAILY FOR YEAST SKIN INFECTION AND APPLY TO UNDERARM AND ABDOMINAL FOLDS AND PERIAREA TWICE DAILY 10/07/2015 12/05/2015 Inactive Generic For:MYCOSTATIN 100,000 UNITS/GM PW 10/05/2015 12:07:35 PM fentanyl 25 mcg/hr transdermal patch RxNorm: 107931 1 TD q 3 days 10/03/2015 11/01/2015 Inactive fentanyl 25 mcg/hr transdermal patch RxNorm: 553248 1 TD q 3 days 09/27/2015 10/02/2015 Inactive fentanyl 25 mcg/hr transdermal patch RxNorm: 906913 1 TD q 3 days 09/17/2015 09/26/2015 Inactive fentanyl 25 mcg/hr transdermal patch RxNorm: 422785 1 TD q 3 days 08/30/2015 09/16/2015 Inactive hydrocodone 5 mg-acetaminophen 325 mg tablet RxNorm: 393875 1 Tablet(s) PO Q6 as needed 08/30/2015 09/28/2015 Inactive Diflucan 100 mg tablet RxNorm: 233902 1 Tablet(s) Miscellaneous per peg daily 07/29/2015 08/04/2015 Inactive fentanyl 25 mcg/hr transdermal patch RxNorm: 842108 1 TD q 3 days 07/18/2015 08/29/2015 Inactive hydrocodone 5 mg-acetaminophen 325 mg tablet RxNorm: 253709 1 Tablet(s) PO Q6 as needed 07/18/2015 08/29/2015 Inactive Diflucan 100 mg tablet RxNorm: 806878 1 Tablet(s) Miscellaneous per peg daily 06/17/2015 06/23/2015 Inactive Senna-S 8.6 mg-50 mg tablet RxNorm: 257976 1 Tablet(s) PO daily as needed constipation No Start Date Active Dulcolax (bisacodyl) 10 mg rectal suppository RxNorm: 021928 1 Suppository RTL daily as needed constipation No Start Date Active polyethylene glycol 3350 17 gram/dose oral powder RxNorm: 368134 17 Gram(s) PO daily as needed constipation No Start Date Active baclofen 10 mg tablet RxNorm: 822593 1 Tablet(s) PO TID No Start Date 09/30/2016 Inactive Ativan 0.5 mg tablet RxNorm: 953395 1 Tablet(s) PO Q4H as needed No Start Date 02/17/2016 Inactive ranitidine 150 mg tablet RxNorm: 766524 1 Tablet(s) PO daily No Start Date 08/24/2016 Inactive carvedilol 3.125 mg tablet RxNorm: 917473 1 Tablet(s) PO daily No Start Date 09/29/2016 Inactive citalopram 40 mg tablet RxNorm: 392209 1 Tablet(s) PO daily No Start Date 01/27/2016 Inactive Probiotic Blend oral RxNorm: oral No Start Date 05/12/2016 Inactive hydrochlorothiazide 25 mg tablet RxNorm: 452233 1 Tablet(s) PO daily No Start Date 04/21/2016 Inactive albuterol sulfate concentrate 5 mg/mL(0.5 %) solution for nebulization RxNorm: 492769 1 Vial INH daily as needed congestion No Start Date 03/17/2018 Inactive Levemir FlexTouch 100 unit/mL (3 mL) subcutaneous insulin pen RxNorm: 903484 10 Unit(s) SQ BID No Start Date 03/01/2016 Inactive Zithromax Z-Eliu 250 mg tablet RxNorm: 006686 1 Tablet(s) PO UD No Start Date 10/08/2015 Inactive z pack as directed- please write out instructions- pt at [facility] nystatin 100,000 unit/gram topical powder RxNorm: 674334 Gram(s) TOP BID as needed No Start Date 10/06/2015 Inactive pravastatin 40 mg tablet RxNorm: 491066 Tablet(s) PO daily No Start Date 04/14/2017 Inactive lorazepam 0.5 mg tablet RxNorm: 088438 1/2 Tablet(s) PO BID No Start Date 05/02/2017 Inactive Xarelto 20 mg tablet RxNorm: 2232393 1 Tablet(s) PO daily No Start Date 12/16/2015 Inactive fentanyl 25 mcg/hr transdermal patch RxNorm: 554660 1 TD q 3 days No Start Date 07/17/2015 Inactive lisinopril 20 mg tablet RxNorm: 349031 1 Tablet(s) PO daily No Start Date 02/24/2016 Inactive hydrocodone 5 mg-acetaminophen 325 mg tablet RxNorm: 820421 1 Tablet(s) PO Q6 as needed No Start Date 07/17/2015 Inactive citalopram 40 mg tablet RxNorm: 324938 1 Tablet(s) PO daily No Start Date 03/03/2016 Inactive hyoscyamine 0.125 mg disintegrating tablet RxNorm: 5150363 1-2 Tablet(s) PO Q8 as needed No [...] Code Item Item Code Result Date %Hba1C Egz838 % HbA1c 31726- 6 5.5 % 05/18/2018 %Hba1C Xgd153 Gluc Ave 111 mg/dL 05/18/2018 Cbc With [...] 32.3 pg 05/18/2018 Cbc With Differential Ord2 [place]% 4.9 % 05/18/2018 Cbc With Differential Ord2 [...] 1.81 K/ul 05/18/2018 Cbc With Differential Ord2 [place] ABS# 0.4 K/ul 05/18/2018 Cbc With Differential Ord2 Eos ABS# 0.6 K/ul 05/18/2018 Cbc With Differential Ord2 Baso ABS# 0.0 K/ul 05/18/2018 Tsh Ord6 TSH (3rd IS) 0.85 uIU/mL 05/18/2018 Comp Metabolic Ltz904 NA 137 mEq/L 05/18/2018 Comp Metabolic Jdw072 K 4.2 mEq/L 05/18/2018 Comp Metabolic Cen789 CL 97 mEq/L 05/18/2018 Comp Metabolic Tli603 CO2 34.0 mEq/L 05/18/2018 Comp Metabolic Dme292 ANION GAP 10 05/18/2018 Comp Metabolic Dmz238 GLUCOSE 177 mg/dL 05/18/2018 Comp Metabolic Usa269 Creat 0.5 mg/dL 05/18/2018 Comp Metabolic Xyy085 eGFR 122 ml/min/1.73m2 05/18/2018 Comp Metabolic Glc017 BUN 23 mg/dL 05/18/2018 Comp Metabolic Bka799 B/C Ratio 43.4 Ratio 05/18/2018 Comp Metabolic Zre998 CALCIUM 9.2 mg/dL 05/18/2018 Comp Metabolic Ajh372 ALK PHOS 86 U/L 05/18/2018 Comp Metabolic Xhd537 AST(SGOT) 14 U/L 05/18/2018 Comp Metabolic Xim878 ALT(SGPT) 9 U/L 05/18/2018 Comp Metabolic Gpn284 BILI T 0.3 mg/dL 05/18/2018 Comp Metabolic Tjg079 ALBUMIN 3.7 g/dL 05/18/2018 Comp Metabolic Ood016 TPRO 6.2 g/dL 05/18/2018 Comp Metabolic Rlg419 GLOB 2.6 g/dL 05/18/2018 Comp Metabolic Jnf072 A/G Ratio 1.4 Ratio 05/18/2018 Comp Metabolic Ovp194 Osmo 282 mOsmo 05/18/2018 A1C Frequency Yup057 A1CF 62542-5 Last [place] [facility] [place]: 02-14-2018 05/10/2018 Cbc With Differential [...] 30.7 pg 02/14/2018 Cbc With Differential Ord2 [place]% 7.4 % 02/14/2018 Cbc With Differential Ord2 [...] 2.14 K/ul 02/14/2018 Cbc With Differential Ord2 [place] ABS# 0.5 K/ul 02/14/2018 Cbc With Differential Ord2 Eos ABS# 0.3 K/ul 02/14/2018 Cbc With Differential Ord2 Baso ABS# 0.0 K/ul 02/14/2018 Comp Metabolic Vou093 NA 142 mEq/L 02/14/2018 Comp Metabolic Rxr263 K 4.5 mEq/L 02/14/2018 Comp Metabolic Hky307 CL 97 mEq/L 02/14/2018 Comp Metabolic Vrg336 CO2 41.0 mEq/L 02/14/2018 Comp Metabolic Ucv666 ANION GAP 9 02/14/2018 Comp Metabolic Dwq247 GLUCOSE 111 mg/dL 02/14/2018 Comp Metabolic Vul498 Creat 0.6 mg/dL 02/14/2018 Comp Metabolic Xej287 eGFR 108 ml/min/1.73m2 02/14/2018 Comp Metabolic Qvo527 BUN 32 mg/dL 02/14/2018 Comp Metabolic Pcx817 B/C Ratio 54.2 Ratio 02/14/2018 Comp Metabolic Dtr942 CALCIUM 8.9 mg/dL 02/14/2018 Comp Metabolic Qgr858 ALK PHOS 81 U/L 02/14/2018 Comp Metabolic Fjr460 AST(SGOT) 14 U/L 02/14/2018 Comp Metabolic Ors752 ALT(SGPT) 11 U/L 02/14/2018 Comp Metabolic Eoe340 BILI T 0.3 mg/dL 02/14/2018 Comp Metabolic Byy324 ALBUMIN 3.4 g/dL 02/14/2018 Comp Metabolic Nns997 TPRO 6.3 g/dL 02/14/2018 Comp Metabolic Cse232 GLOB 2.9 g/dL 02/14/2018 Comp Metabolic Bez149 A/G Ratio 1.2 Ratio 02/14/2018 Comp Metabolic Sjb805 Osmo 291 mOsmo 02/14/2018 %Hba1C Xkq608 % HbA1c 29337- 6 5.5 % 02/14/2018 %Hba1C Drl391 Gluc Ave 111 mg/dL 02/14/2018 Prealbumin 461651 PREALBUMIN 27 mg/dL 11/24/2017 %Hba1C Mmj766 % HbA1c 16313- 6 5.5 % 11/04/2017 %Hba1C Ltw771 Gluc Ave 111 mg/dL 11/04/2017 Culture Urine [id number] URINE CULTURE SEE NOTES 10/04/2017 Culture Urine [id number] Continued Results 10/04/2017 Urine Culture Ucult Complete [...] Ord28 U-Com Culture to follow 10/01/2017 B12 Wnm133 B12 >1500.00 pg/ml 02/19/2017 Cbc With Differential [...] 31.5 pg 02/02/2017 Cbc With Differential Ord2 [place]% 8.3 % 02/02/2017 Cbc With Differential Ord2 [...] 2.28 K/ul 02/02/2017 Cbc With Differential Ord2 [place] ABS# 0.6 K/ul 02/02/2017 Cbc With Differential Ord2 Eos ABS# 0.4 K/ul 02/02/2017 Cbc With Differential Ord2 Baso ABS# 0.0 K/ul 02/02/2017 %Hba1C Cgr515 % HbA1c 86370- 6 5.2 % 02/02/2017 %Hba1C Niu926 Gluc Ave 103 mg/dL 02/02/2017 Comp Metabolic Bxy196 NA 138 mEq/L 02/02/2017 Comp Metabolic Wqn733 K 4.5 mEq/L 02/02/2017 Comp Metabolic Sxc309 CL 98 mEq/L 02/02/2017 Comp Metabolic Edj384 CO2 37.0 mEq/L 02/02/2017 Comp Metabolic Kcu625 ANION GAP 8 02/02/2017 Comp Metabolic Kog158 GLUCOSE 94 mg/dL 02/02/2017 Comp Metabolic Ssj428 Creat 0.7 mg/dL 02/02/2017 Comp Metabolic Doy572 eGFR 88 ml/min/1.73m2 02/02/2017 Comp Metabolic Ukj440 BUN 36 mg/dL 02/02/2017 Comp Metabolic Rlo983 B/C Ratio 50.7 Ratio 02/02/2017 Comp Metabolic Let369 CALCIUM 9.0 mg/dL 02/02/2017 Comp Metabolic Jjy463 ALK PHOS 78 U/L 02/02/2017 Comp Metabolic Exe620 AST(SGOT) 22 U/L 02/02/2017 Comp Metabolic Odq261 ALT(SGPT) 28 U/L 02/02/2017 Comp Metabolic Sbk119 BILI T 0.3 mg/dL 02/02/2017 Comp Metabolic Uhg052 ALBUMIN 3.3 g/dL 02/02/2017 Comp Metabolic Wqk949 TPRO 5.9 g/dL 02/02/2017 Comp Metabolic Uev937 GLOB 2.6 g/dL 02/02/2017 Comp Metabolic Vzz172 A/G Ratio 1.3 Ratio 02/02/2017 Comp Metabolic Jqj392 Osmo 284 mOsmo 02/02/2017 %Hba1C Wnp449 % HbA1c 06701- 6 5.0 % 10/29/2016 %Hba1C Ezu756 Gluc Ave 97 mg/dL 10/29/2016 Culture Urine [id number] URINE CULTURE SEE NOTES 09/21/2016 Culture Urine [id number] Continued Results 09/21/2016 Urine Culture Ucult Complete [...] 32.4 pg 07/30/2016 Cbc With Differential Ord2 [place]% 7.2 % 07/30/2016 Cbc With Differential Ord2 [...] 2.69 K/ul 07/30/2016 Cbc With Differential Ord2 [place] ABS# 0.5 K/ul 07/30/2016 Cbc With Differential Ord2 Eos ABS# 0.5 K/ul 07/30/2016 Cbc With Differential Ord2 Baso ABS# 0.0 K/ul 07/30/2016 Comp Metabolic Exv569 NA 141 mEq/L 07/30/2016 Comp Metabolic Xqw930 K 4.3 mEq/L 07/30/2016 Comp Metabolic Zlv872 CL 100 mEq/L 07/30/2016 Comp Metabolic Aqe898 CO2 33.0 mEq/L 07/30/2016 Comp Metabolic Ldg388 ANION GAP 12 07/30/2016 Comp Metabolic Jbk282 GLUCOSE 64 mg/dL 07/30/2016 Comp Metabolic Yhz101 Creat 0.5 mg/dL 07/30/2016 Comp Metabolic Fib481 eGFR 126 ml/min/1.73m2 07/30/2016 Comp Metabolic Qkv140 BUN 25 mg/dL 07/30/2016 Comp Metabolic Bbd661 B/C Ratio 48.1 Ratio 07/30/2016 Comp Metabolic Bft304 CALCIUM 8.9 mg/dL 07/30/2016 Comp Metabolic Dyh714 ALK PHOS 90 U/L 07/30/2016 Comp Metabolic Mwh474 AST(SGOT) 22 U/L 07/30/2016 Comp Metabolic Gkc369 ALT(SGPT) 36 U/L 07/30/2016 Comp Metabolic Zjk803 BILI T 0.3 mg/dL 07/30/2016 Comp Metabolic Env377 ALBUMIN 3.4 g/dL 07/30/2016 Comp Metabolic Qry504 TPRO 6.0 g/dL 07/30/2016 Comp Metabolic Itk585 GLOB 2.7 g/dL 07/30/2016 Comp Metabolic Ank562 A/G Ratio 1.3 Ratio 07/30/2016 Comp Metabolic Pwf502 Osmo 284 mOsmo 07/30/2016 A1C Frequency Pvz185 A1CF 01081-8 Last A1[place] [facility] [place]: 05-12-2016 07/30/2016 %Hba1C Iza929 % HbA1c 04572- 6 5.2 % 05/12/2016 %Hba1C Dzi576 Gluc Ave 103 mg/dL 05/12/2016 Culture Urine [id number] URINE CULTURE SEE NOTES 05/11/2016 Urine Culture [...] U-Com Culture to follow 05/06/2016 Culture Urine [id number] URINE CULTURE SEE NOTES 03/17/2016 Culture Urine [id number] Continued Results 03/17/2016 Urine Culture Ucult Complete [...] 32.0 pg 02/11/2016 Cbc With Differential Ord2 [place]% 9.1 % 02/11/2016 Cbc With Differential Ord2 [...] 2.59 K/ul 02/11/2016 Cbc With Differential Ord2 [place] ABS# 0.6 K/ul 02/11/2016 Cbc With Differential Ord2 Eos ABS# 0.3 K/ul 02/11/2016 Cbc With Differential Ord2 Baso ABS# 0.0 K/ul 02/11/2016 Comp Metabolic Nbc273 NA 137 mEq/L 02/11/2016 Comp Metabolic Ajv444 K 4.4 mEq/L 02/11/2016 Comp Metabolic Ymh111 CL 100 mEq/L 02/11/2016 Comp Metabolic Zhw705 CO2 25.0 mEq/L 02/11/2016 Comp Metabolic Ctc287 ANION GAP 16 02/11/2016 Comp Metabolic Wzn808 GLUCOSE 99 mg/dL 02/11/2016 Comp Metabolic Qvw758 Creat 0.6 mg/dL 02/11/2016 Comp Metabolic Sxr765 eGFR 99 ml/min/1.73m2 02/11/2016 Comp Metabolic Yqg422 BUN 27 mg/dL 02/11/2016 Comp Metabolic Lcv013 B/C Ratio 42.2 Ratio 02/11/2016 Comp Metabolic Sqb139 CALCIUM 9.2 mg/dL 02/11/2016 Comp Metabolic Fwj882 ALK PHOS 74 U/L 02/11/2016 Comp Metabolic Lwx867 AST(SGOT) 24 U/L 02/11/2016 Comp Metabolic Voj650 ALT(SGPT) 26 U/L 02/11/2016 Comp Metabolic Crh455 BILI T 0.5 mg/dL 02/11/2016 Comp Metabolic Mjx353 ALBUMIN 3.5 g/dL 02/11/2016 Comp Metabolic Emo177 TPRO 6.2 g/dL 02/11/2016 Comp Metabolic Mac836 GLOB 2.7 g/dL 02/11/2016 Comp Metabolic Asx726 A/G Ratio 1.3 Ratio 02/11/2016 Comp Metabolic Qoa755 Osmo 279 mOsmo 02/11/2016 Review of Systems [...] 1: 128/86 Code: 8480-6 BMI: 31.4 Code: 84877-1 Heart Rate 1: 72 bpm Height: 5'1" Weight: 166 lbs 06/17/2015 Blood Pressure 1: 110/78 Code: 8480-6 BMI: 33.3 Code: 27600-4 Heart Rate 1: 74 bpm Height: 5'1" [...] data Encounters Encounter Performer Location Codes Date ([id number]) 84692 EST. PATIENT, LEVEL IV Diagnosis: Essential (primary) hypertension[ICD10: I10] Diagnosis: Type 2 diabetes mellitus without complications[ICD10: E11.9] Diagnosis: Chronic pain syndrome[ICD10: G89.4] Diagnosis: Encounter for palliative care[ICD10: Z51.5] Vonda Everett MD, [facility] CPT-4: 25763 07/13/2018 ([id number]) 12408 EST. PATIENT, LEVEL IV Diagnosis: Essential (primary) hypertension[ICD10: I10] Diagnosis: Chronic pain syndrome[ICD10: G89.4] Diagnosis: Type 2 diabetes mellitus without complications[ICD10: E11.9] Diagnosis: Dysphagia following cerebral infarction[ICD10: I69.391] Carlyn Everett MD, [facility] CPT-4: 01741 05/17/2018 ([id number]) 66787 EST. PATIENT, LEVEL IV Diagnosis: Cough[ICD10: R05] Diagnosis: Pneumonia, unspecified organism[ICD10: J18.9] Diagnosis: Pain in right knee[ICD10: M25.561] Carlyn Everett MD, [facility] CPT- 4: 95795 03/18/2018 ([id number]) 73646 EST. PATIENT, LEVEL IV Diagnosis: Type 2 diabetes mellitus without complications[ICD10: E11.9] Diagnosis: Essential (primary) hypertension[ICD10: I10] Diagnosis: Chronic pain syndrome[ICD10: G89.4] Carlyn Everett MD, [facility] CPT-4: 71070 01/07/2018 ([id number]) 47126 EST. PATIENT, LEVEL IV Diagnosis: Essential (primary) hypertension[ICD10: I10] Diagnosis: Type 2 diabetes mellitus without complications[ICD10: E11.9] Carlyn Everett MD, [facility] CPT-4: 95260 2017 ([id number]) 86738 EST. PATIENT, LEVEL IV Diagnosis: Type 2 diabetes mellitus with hyperglycemia[ICD10: E11.65] Diagnosis: Essential (primary) hypertension[ICD10: I10] Diagnosis: Pain in left shoulder[ICD10: M25.512] Diagnosis: Pain in right shoulder[ICD10: M25.511] Diagnosis: Pain in left knee[ICD10: M25.562] Diagnosis: Pain in right knee[ICD10: M25.561] Vonda Everett MD, [facility] CPT- 4: 89306 09/09/2017 46966 EST. PATIENT, LEVEL IV Diagnosis: Essential (primary) hypertension[ICD10: I10] Diagnosis: Type 2 diabetes mellitus with hyperglycemia[ICD10: E11.65] Diagnosis: Low back pain[ICD10: M54.5] Sunitha Everett MD, [facility] CPT-4: 40691 06/08/2017 ([id number]) 08247 EST. PATIENT, LEVEL IV Diagnosis: Essential (primary) hypertension[ICD10: I10] Diagnosis: Type 2 diabetes mellitus with hyperglycemia[ICD10: E11.65] Diagnosis: Low back pain[ICD10: M54.5] Sunitha Everett MD, [facility] CPT-4: 00384 04/15/2017 ([id number]) 10080 EST. PATIENT, LEVEL IV Diagnosis: Essential (primary) hypertension[ICD10: I10] Diagnosis: Type 2 diabetes mellitus with hyperglycemia[ICD10: E11.65] Diagnosis: Low back pain[ICD10: M54.5] Vonda Everett MD, [facility] CPT-4: 26442 02/16/2017 85595 EST. 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 07/13/2018 Appointment: Vonda Everett WPtel: [phone] [facility] (15 min) Moderate 07/13/2018 Patient Education: Patient [...] oral supplements 05/17/2018 Appointment: [phone] [place] (15 min) Moderate 05/17/2018 Patient Education: Patient Medication Summary Completed 05/17/2018 Patient Education: Hypertension Completed 05/17/2018 Patient Education: Diabetes Completed 05/17/2018 Appointment: Carlyn Higginbotham WPtel: [phone] [place] (15 min) Moderate 04/07/2018 Visit Plan: Pneumonia - Pt has been diagnosed with pneumonia by physical exam. A chest xray has been ordered as have antibiotics. The pt is aware of the diagnosis and the need for acute treatment of this illness. Right knee pain -xray knee-rx for voltaren gel 03/18/2018 Appointment: Carlyn Higginbotham WPtel: [phone] [phone] [place] (30 min) Complex 03/18/2018 Patient Education: Patient Medication Summary Completed 03/18/2018 Appointment: Carlyn Higginbotham WPtel: [phone] [phone] [place] (30 min) Complex 03/17/2018 Appointment: Carlyn Higginbotham WPtel: [phone] [place] (15 min) Moderate 03/10/2018 Appointment: Carlyn Higginbotham WPtel: [phone] [place] (15 min) Moderate 02/08/2018 Visit Plan: DM -decrease levemir to 4 units daily -monitor blood sugars YQA-edlxdvtdxj-zk changes Chronic pain -well controlled with fentanyl patch -no changes at this time 01/07/2018 Appointment: Carlyn Higginbotham WPtel: [phone] [place] (15 min) Moderate 01/07/2018 Patient Education: [...] HS 2017 Appointment: Carlyn Higginbotham WPtel: [phone] [phone] [place] (15 min) Moderate 2017 Patient [...] to 175mcg. 09/09/2017 Appointment: Vonda Everett WPtel: [facility] [place] (15 min) Moderate 09/09/2017 Patient [...] and PRN pain medications - will have group home fax over PRN medication administration record. 06/08/2017 Appointment: Sunitha Patel WPtel: [phone] [facility] (30 min) Complex 06/08/2017 Patient Education: Patient [...] over-medication. 04/15/2017 Appointment: [phone] ([place]) Complex 04/15/2017 Patient Education: [...] hydrocodone today. 02/16/2017 [phone] ([facility] min) Moderate 02/16/2017 Patient [...] or concerns. 11/09/2016 Appointment: [phone] [facility] ([place] min) Complex 11/09/2016 Patient Education: Patient Medication Summary Completed 11/09/2016 Care Plan: Referral Order SNOMED-CT : [id number] Pending 11/09/2016 Patient Education: Patient Medication Summary [...] Follow up weight in 1 month Neck lrvh-nzdhazgkxkb-Rzyp PT focus neck/upper body Right earache-cerumen removed with water pick today in the office 07/18/2015 Appointment: (30 min) Complex 07/18/2015 Patient Education: Patient Medication Summary Completed 07/18/2015 Patient Education: Obesity Completed 07/18/2015 Patient Education: .Cervicalgia Neck Pain Completed 07/18/2015 Referral: [facility] WPtel: [phone] Referral Completed 06/25/2015 Visit Plan: Hypertension [...] normal liver response to medications. [facility] - left sided weakness, neck stiffness, upper extremity weakness Diabetes Mellitus - controlled - per family report - check labs this week, get report from and [facility]. I spent over an hour with the patient in direct contact. 06/17/2015 Appointment: Vonda Everett WPtel: [phone] New Patient 06/17/2015 Patient Education: Patient Medication Summary Completed 06/17/2015 Patient Education: Obesity Completed 06/17/2015 Patient Education: Hypertension Completed 06/17/2015 Care Plan: Referral Order SNOMED-CT : [id number] Ordered 06/17/2015 Referral: Jorge Luis Carroll Referral Initiated Referral: [facility] WPtel: [phone] Referral Appointment Requested Instructions Comment . [...] this week, get report from and [facility]. I spent over an hour with [...] whey protein from [facility] to 2 feedings per day . Hypertension [...] Follow up weight in 1 month Neck boic-expvmgdtmxi-Lprx PT focus neck/upper body Right earache-cerumen removed [...] to 4 units daily -monitor blood sugars DFM-yzkryugcar-ix changes Chronic pain -well controlled with fentanyl [...] directed, and understands the consequences of over-medication. voltaren gel right knee cefdinir zpack prednisone [...] and PRN pain medications - will have group home fax over PRN medication administration record. [...]
--- OUTSIDE RECORDS SUMMARY | 2018-08-09 10:54 | XMS REPORT | CCD ---
Author Author Vonda Everett Organization [facility] Address [address] [place] [address] Phone Care Team Providers Care Inspecting And Testing Lead Hand Name Role Phone PP Unavailable CCM Unavailable Summary Purpose Interface Exchange Insurance Providers Payer name Policy type / Coverage type Covered republican ID Effective Begin Date Effective End Date WPS Medicare Part B Medicare Part B [id number] Unknown Unknown [employer] Life Insurance Medicare Part B [id number] Unknown Unknown Family history Father Diagnosis Age At Onset Arthritis Unknown Hypertension Unknown Mother Diagnosis Age At Onset Diabetes mellitus Type 2 Unknown Depression Unknown Arthritis Unknown Stroke Unknown Hypertension Unknown Sister Diagnosis Age At Onset Colon cancer Unknown Social History Social History Element Codes Description Effective Dates Marital status Unknown Maurice 01/07/2018 Living arrangements Unknown Shelter [facility] 04/15/2017 Number of children Unknown 3 06/17/2015 Employment Unknown Retired 06/17/[address]: 3536938 Quit over 10 years ago 15+ 06/17/[address]: 334211808 Never drinks alcohol 06/17/2015 Allergies, Adverse Reactions, Alerts Substance Reaction Codes Entered Date Inactivated Date Status MORPHINE SULFATE emesis, RxNorm: 7052 06/17/2015 No Inactive Date Active Past Medical History Illness Codes Condition Status Onset Date Resolved Date Chronic pain syndrome ICD- 9: 338.4 ICD-10: G89.4 Active 01/07/2018 Unknown 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 Active 06/16/2015 Unknown Dysphagia following cerebral infarction ICD-9: 438.82 ICD-10: I69.391 Active 07/17/2015 Unknown Essential (primary) hypertension ICD-9: 401.9 ICD-10: I10 Active 07/17/2015 Unknown Type 2 diabetes mellitus without complications ICD-9: 250.00 ICD-10: E11.9 Active 2017 Unknown Cough ICD-9: 786.2 ICD-10: R05 Active [...] ICD- 9: 338.4 ICD-10: G89.4 01/07/2018 Active 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 06/16/2015 Active Dysphagia following cerebral infarction ICD-9: 438.82 ICD-10: I69.391 07/17/2015 Active Essential (primary) hypertension ICD-9: 401.9 ICD-10: I10 07/17/2015 Active Type 2 diabetes mellitus without complications ICD-9: 250.00 ICD-10: E11.9 2017 Active Cough ICD-9: 786.2 ICD-10: R05 03/18/2018 [...] Instructions Duragesic 75 mcg/hr transdermal patch RxNorm: 807184 1 Patch TD Q72H 07/05/2018 08/03/2018 Active lorazepam 0.5 mg tablet RxNorm: 427740 1 Tablet(s) PO BID and 1 tab q 6 hours prn 07/05/2018 No Stop Date Active fentanyl 100 mcg/hr transdermal patch RxNorm: 428470 1 Patch TD Q72H 07/05/2018 08/03/2018 Active hydrocodone 10 mg-acetaminophen 325 mg tablet RxNorm: 185838 2 Tablet(s) PO scheduled TID 07/05/2018 07/19/2018 Active Not to exceed 3gm/24hr acetaminophen hydrocodone 10 mg-acetaminophen 325 mg tablet RxNorm: 778573 2 Tablet(s) PO scheduled TID 06/22/2018 07/04/2018 Inactive Not to exceed 3gm/24hr acetaminophen citalopram 40 mg tablet RxNorm: 890696 1 Tablet(s) PO daily 06/20/2018 05/15/2019 Active Voltaren 1 % topical gel RxNorm: 182757 APPLY 4 GRAMS TO RIGHT KNEE FOUR TIMES DAILY 06/13/2018 07/06/2018 Active Generic For:VOLTAREN GEL 1% 06/13/2018 10:59:02 AM hydrocodone 10 mg-acetaminophen 325 mg tablet RxNorm: 679727 2 Tablet(s) PO scheduled TID 06/07/2018 06/21/2018 Inactive Not to exceed 3gm/24hr acetaminophen fentanyl 100 mcg/hr transdermal patch RxNorm: 448756 1 Patch TD Q72H 06/03/2018 07/02/2018 Inactive Duragesic 75 mcg/hr transdermal patch RxNorm: 136283 1 Patch TD Q72H 06/03/2018 07/02/2018 Inactive hyoscyamine 0.125 mg disintegrating tablet RxNorm: 7052200 Tablet(s) Tablet(s) 1-2 Tablet(s) PO Q8 as needed 05/27/2018 No Stop Date Active lorazepam 0.5 mg tablet RxNorm: 188191 1 Tablet(s) PO BID and 1 tab q 6 hours prn 05/24/2018 07/04/2018 Inactive hydrocodone 10 mg-acetaminophen 325 mg tablet RxNorm: 848369 2 Tablet(s) PO scheduled TID 05/24/2018 06/06/2018 Inactive Not to exceed 3gm/24hr acetaminophen citalopram 20 mg tablet RxNorm: 164145 1 Tablet(s) PO daily 05/17/2018 06/19/2018 Inactive hydrocodone 10 mg-acetaminophen 325 mg tablet RxNorm: 061239 2 Tablet(s) PO scheduled TID 04/19/2018 05/18/2018 Inactive Not to exceed 3gm/24hr acetaminophen lorazepam 0.5 mg tablet RxNorm: 445204 1 Tablet(s) PO BID and 1 tab q 6 hours prn 04/07/2018 05/23/2018 Inactive hyoscyamine 0.125 mg disintegrating tablet RxNorm: 7658569 Tablet(s) 1-2 Tablet(s) PO Q8 as needed 03/31/2018 05/26/2018 Inactive Duragesic 75 mcg/hr transdermal patch RxNorm: 576517 1 Patch TD Q72H 03/31/2018 04/29/2018 Inactive fentanyl 100 mcg/hr transdermal patch RxNorm: 089240 1 Patch TD Q72H 03/31/2018 04/29/2018 Inactive carvedilol 3.125 mg tablet RxNorm: 404967 Tablet(s) GIVE 1 TABLET VIA PEG TUBE 2 TIMES A DAY 03/30/2018 06/27/2018 Inactive Generic For:COREG 3.125MG 10/22/2017 9:23:30 AM Voltaren 1 % topical gel RxNorm: 499362 APPLY 4 GRAMS TO RIGHT KNEE FOUR TIMES DAILY 03/30/2018 04/22/2018 Inactive Generic For:VOLTAREN GEL 1% 03/30/2018 11:14:57 AM hydrocodone 10 mg-acetaminophen 325 mg tablet RxNorm: 830944 2 Tablet(s) PO scheduled TID 03/23/2018 04/18/2018 Inactive Not to exceed 3gm/24hr acetaminophen albuterol sulfate concentrate 5 mg/mL(0.5 %) solution for nebulization RxNorm: 991825 1 Vial Milliliter(s) INH TID PRN as needed congestion 03/18/2018 No Stop Date Active cefdinir 300 mg capsule RxNorm: 108800 1 Capsule(s) PO BID 03/18/2018 03/24/2018 Inactive Zithromax Z-Eliu 250 mg tablet RxNorm: 368627 Tablet(s) PO 03/18/2018 05/16/2018 Inactive Voltaren 1 % topical gel RxNorm: 970477 4 Gram(s) TOP QID 03/18/2018 03/29/2018 Inactive hydrochlorothiazide 25 mg tablet RxNorm: 979899 GIVE 1 TABLET VIA PEG TUBE ONCE DAILY 03/11/2018 09/06/2018 Active Generic For:HYDRODIURIL 25 MG TABLET 03/11/2018 9:15:32 AM fentanyl 100 mcg/hr transdermal patch RxNorm: 920552 1 Patch TD Q72H 03/02/2018 03/30/2018 Inactive Duragesic 75 mcg/hr transdermal patch RxNorm: 674879 1 Patch TD Q72H 03/02/2018 03/30/2018 Inactive hydrocodone 10 mg-acetaminophen 325 mg tablet RxNorm: 564136 2 Tablet(s) PO scheduled TID 02/18/2018 03/22/2018 Inactive Not to exceed 3gm/24hr acetaminophen hyoscyamine 0.125 mg disintegrating tablet RxNorm: 4421356 Tablet(s) 1-2 Tablet(s) PO Q8 as needed 02/08/2018 03/30/2018 Inactive fentanyl 100 mcg/hr transdermal patch RxNorm: 804832 1 Patch TD Q72H 02/04/2018 03/01/2018 Inactive hydrocodone 10 mg-acetaminophen 325 mg tablet RxNorm: 303336 2 Tablet(s) PO scheduled TID 02/04/2018 02/17/2018 Inactive Not to exceed 3gm/24hr acetaminophen Duragesic 75 mcg/hr transdermal patch RxNorm: 495870 1 Patch TD Q72H 02/04/2018 03/01/2018 Inactive Levemir FlexTouch U-100 Insulin 100 unit/mL (3 mL) subcutaneous pen RxNorm: 108738 4 Unit(s) SQ QHS 01/07/2018 No Stop Date Active Duragesic 75 mcg/hr transdermal patch RxNorm: 000987 1 Patch TD Q72H 01/07/2018 02/03/2018 Inactive fentanyl 100 mcg/hr transdermal patch RxNorm: 146438 1 Patch TD Q72H 01/07/2018 02/03/2018 Inactive hydrocodone 10 mg-acetaminophen 325 mg tablet RxNorm: 517646 2 Tablet(s) PO scheduled TID 01/05/2018 02/03/2018 Inactive Not to exceed 3gm/24hr acetaminophen hydrocodone 10 mg-acetaminophen 325 mg tablet RxNorm: 438909 2 Tablet(s) PO scheduled TID and 1 tab q 4 as needed 01/04/2018 01/04/2018 Inactive Not to exceed 3gm/24hr acetaminophen cyanocobalamin (vit B-12) 1,000 mcg tablet RxNorm: 542474 1 Tablet(s) PO daily 12/28/2017 11/22/2018 Active baclofen 10 mg tablet RxNorm: 311065 Tablet(s) TAKE 1 TABLET THREE TIMES DAILY VIA STOMACH TUBE 12/27/2017 05/25/2018 Inactive 10/07/2017 5:36:15 PM 10/07/2017 5:36:13 PM N O T I C E Last quantity doesn't match original quantity Duragesic 75 mcg/hr transdermal patch RxNorm: 723063 1 Patch TD Q72H 12/22/2017 01/06/2018 Inactive fentanyl 100 mcg/hr transdermal patch RxNorm: 165753 1 Patch TD Q72H 12/22/2017 01/06/2018 Inactive hydrocodone 10 mg-acetaminophen 325 mg tablet RxNorm: 653224 2 Tablet(s) PO scheduled TID and 1 tab q 4 as needed 12/20/2017 01/03/2018 Inactive Not to exceed 3gm/24hr acetaminophen hyoscyamine 0.125 mg disintegrating tablet RxNorm: 2416207 1-2 Tablet(s) PO Q8 as needed 12/14/2017 02/07/2018 Inactive Duragesic 75 mcg/hr transdermal patch RxNorm: 834994 1 Patch TD Q72H 12/06/2017 12/21/2017 Inactive fentanyl 100 mcg/hr transdermal patch RxNorm: 961533 1 Patch TD Q72H 12/06/2017 12/21/2017 Inactive hydrocodone 10 mg-acetaminophen 325 mg tablet RxNorm: 117032 2 Tablet(s) PO scheduled TID and 1 tab q 4 as needed 11/29/2017 12/19/2017 Inactive Not to exceed 3gm/24hr acetaminophen Duragesic 75 mcg/hr transdermal patch RxNorm: 014788 1 Patch TD Q72H 11/11/2017 12/05/2017 Inactive hydrocodone 10 mg-acetaminophen 325 mg tablet RxNorm: 373672 2 Tablet(s) PO scheduled TID and 1 tab q 4 as needed 11/09/2017 11/28/2017 Inactive Not to exceed 3gm/24hr acetaminophen Levemir FlexTouch U-100 Insulin 100 unit/mL (3 mL) subcutaneous pen RxNorm: 599128 8 Unit(s) SQ QHS 11/09/2017 01/06/2018 Inactive fentanyl 100 mcg/hr transdermal patch RxNorm: 202416 1 Patch TD Q72H 2017 12/05/2017 Inactive hyoscyamine 0.125 mg disintegrating tablet RxNorm: 7978282 1-2 Tablet(s) PO Q8 as needed 11/03/2017 12/13/2017 Inactive carvedilol 3.125 mg tablet RxNorm: 779759 GIVE 1 TABLET VIA PEG TUBE 2 TIMES A DAY 10/22/2017 01/19/2018 Inactive Generic For:COREG 3.125MG 10/22/2017 9:23:30 AM hydrocodone 10 mg-acetaminophen 325 mg tablet RxNorm: 405961 2 Tablet(s) PO scheduled TID and 1 tab q 4 as needed 10/22/2017 2017 Inactive Not to exceed 3gm/24hr acetaminophen fentanyl 100 mcg/hr transdermal patch RxNorm: 045067 1 Patch TD Q72H 10/20/2017 11/07/2017 Inactive Duragesic 75 mcg/hr transdermal patch RxNorm: 454080 1 Patch TD Q72H 10/20/2017 11/10/2017 Inactive lorazepam 0.5 mg tablet RxNorm: 836886 1 Tablet(s) PO BID and 1 tab q 6 hours prn 10/18/2017 07/04/2018 Inactive baclofen 10 mg tablet RxNorm: 433691 TAKE 1 TABLET THREE TIMES DAILY VIA STOMACH TUBE 10/07/2017 12/26/2017 Inactive 10/07/2017 5:36:15 PM 10/07/2017 5:36:13 PM N O T I C E Last quantity doesn't match original quantity cranberry extract 500 mg tablet RxNorm: 7825404 1 Tablet(s) PO QAM 10/04/2017 01/31/2018 Inactive Cipro 500 mg tablet RxNorm: 813467 1 Tablet(s) PO BID 10/04/2017 10/03/2017 Inactive dc keflex hydrocodone 10 mg-acetaminophen 325 mg tablet RxNorm: 749932 2 Tablet(s) PO scheduled TID as needed 10/04/2017 10/21/2017 Inactive Not to exceed 3gm/24hr acetaminophen cranberry extract 500 mg tablet RxNorm: 2176387 1 Tablet(s) PO QAM 10/04/2017 10/03/2017 Inactive Cipro 500 mg tablet RxNorm: 590218 1 Tablet(s) PO BID 10/04/2017 10/10/2017 Inactive dc keflex Duragesic 75 mcg/hr transdermal patch RxNorm: 325997 1 Patch TD Q72H 09/20/2017 10/19/2017 Inactive fentanyl 100 mcg/hr transdermal patch RxNorm: 301123 1 Patch TD Q72H 09/20/2017 10/19/2017 Inactive hyoscyamine 0.125 mg disintegrating tablet RxNorm: 9791867 1 Tablet(s) PO TID and 1 Tablet Q4H prn increased secretions 09/15/2017 11/02/2017 Inactive hydrocodone 10 mg-acetaminophen 325 mg tablet RxNorm: 598498 2 Tablet(s) PO scheduled TID and 1-2 Tabs Q4H PRN pain 09/15/2017 10/03/2017 Inactive Not to exceed 3gm/24hr acetaminophen lorazepam 0.5 mg tablet RxNorm: 983590 1 Tablet(s) PO BID 09/15/2017 10/17/2017 Inactive Lexapro 10 mg tablet RxNorm: 007835 1 Tablet(s) PO daily 09/10/2017 09/14/2017 Inactive Levemir FlexTouch U-100 Insulin 100 unit/mL (3 mL) subcutaneous pen RxNorm: 255319 10 Unit(s) daily 09/09/2017 09/15/2017 Inactive lisinopril 10 mg tablet RxNorm: 759502 1 Tablet(s) PO daily 09/09/2017 05/16/2018 Inactive Duragesic 75 mcg/hr transdermal patch RxNorm: 148572 1 Patch TD Q72H 09/09/2017 09/19/2017 Inactive nystatin 100,000 unit/gram topical cream RxNorm: 408538 1 Gram(s) TOP TID until healed to gaulding 09/06/2017 01/03/2018 Inactive nystatin 100,000 unit/gram topical cream RxNorm: 947469 1 Gram(s) TOP TID until healed to gaulding 09/06/2017 09/05/2017 Inactive hydrocodone 10 mg-acetaminophen 325 mg tablet RxNorm: 356251 2 Tablet(s) PO scheduled TID as needed 08/31/2017 09/14/2017 Inactive Not to exceed 3gm/24hr acetaminophen fentanyl 100 mcg/hr transdermal patch RxNorm: 265814 1 Patch TD Q72H 08/24/2017 09/19/2017 Inactive fentanyl 50 mcg/hr transdermal patch RxNorm: 245889 1 Patch TD Q72H 08/24/2017 09/08/2017 Inactive fentanyl 25 mcg/hr transdermal patch RxNorm: 187743 1 Patch TD Q72H 08/24/2017 08/24/2017 Inactive hyoscyamine 0.125 mg disintegrating tablet RxNorm: 9057154 Tablet(s) 1-2 Tablet(s) PO Q8 as needed 08/23/2017 09/14/2017 Inactive hydrocodone 10 mg-acetaminophen 325 mg tablet RxNorm: 036599 1 Tablet(s) PO scheduled TID et Q6 hours as needed 08/18/2017 08/30/2017 Inactive Not to exceed 3gm/24hr acetaminophen hydrochlorothiazide 25 mg tablet RxNorm: 254353 GIVE 1 TABLET VIA PEG TUBE ONCE DAILY 08/17/2017 02/12/2018 Inactive Generic For:HYDRODIURIL 25 MG TABLET 08/17/2017 9:01:54 AM08/11/2017 10:12:00 AM lorazepam 0.5 mg tablet RxNorm: 408297 1/2 Tablet(s) PO BID 08/03/2017 09/14/2017 Inactive fentanyl 100 mcg/hr transdermal patch RxNorm: 131925 1 Patch TD Q72H 07/26/2017 08/23/2017 Inactive fentanyl 25 mcg/hr transdermal patch RxNorm: 140867 1 Patch TD Q72H 07/26/2017 08/23/2017 Inactive hydrocodone 10 mg-acetaminophen 325 mg tablet RxNorm: 954462 1 Tablet(s) PO scheduled TID et Q6 hours as needed 07/16/2017 08/14/2017 Inactive Not to exceed 3gm/24hr acetaminophen hyoscyamine 0.125 mg disintegrating tablet RxNorm: 9511710 Tablet(s) 1-2 Tablet(s) PO Q8 as needed 07/13/2017 08/01/2017 Inactive baclofen 10 mg tablet RxNorm: 966579 TAKE 1 TABLET THREE TIMES DAILY VIA STOMACH TUBE 07/12/2017 10/06/2017 Inactive 07/12/2017 9:04:08 AM N O T I C E Last quantity doesn't match original quantity lorazepam 0.5 mg tablet RxNorm: 078398 1/2 Tablet(s) PO BID 07/02/2017 08/02/2017 Inactive fentanyl 100 mcg/hr transdermal patch RxNorm: 721780 1 Patch TD Q72H 06/28/2017 07/25/2017 Inactive fentanyl 25 mcg/hr transdermal patch RxNorm: 793944 1 Patch TD Q72H 06/28/2017 07/25/2017 Inactive hyoscyamine 0.125 mg disintegrating tablet RxNorm: 1969023 Tablet(s) 1-2 Tablet(s) PO Q8 as needed 06/03/2017 06/22/2017 Inactive fentanyl 25 mcg/hr transdermal patch RxNorm: 896366 1 Patch TD Q72H 05/26/2017 06/24/2017 Inactive Levemir FlexTouch U-100 Insulin 100 unit/mL (3 mL) subcutaneous pen RxNorm: 501302 20 Unit(s) SQ BID 05/26/2017 09/08/2017 Inactive fentanyl 100 mcg/hr transdermal patch RxNorm: 846726 1 Patch TD Q72H 05/26/2017 06/24/2017 Inactive hydrocodone 10 mg-acetaminophen 325 mg tablet RxNorm: 624777 1 Tablet(s) PO scheduled BID et Q6 hours as needed 05/12/2017 05/11/2017 Inactive hydrocodone 10 mg-acetaminophen 325 mg tablet RxNorm: 802425 1 Tablet(s) PO scheduled TID et Q6 hours as needed 05/12/2017 06/10/2017 Inactive Not to exceed 3gm/24hr acetaminophen docusate sodium 100 mg tablet RxNorm: 1261123 1 Tablet(s) PO BID as needed if no bowel movement 05/10/2017 05/09/2017 Inactive lisinopril 20 mg tablet RxNorm: 127322 1 Tablet(s) PO daily 05/10/2017 09/08/2017 Inactive docusate sodium 100 mg tablet RxNorm: 4051856 1 Tablet(s) PO BID as needed if no bowel movement 05/10/2017 09/14/2017 Inactive fentanyl 25 mcg/hr transdermal patch RxNorm: 989257 1 Patch TD Q72H 05/03/2017 05/25/2017 Inactive lorazepam 0.5 mg tablet RxNorm: 244278 1/2 Tablet(s) PO BID 05/03/2017 07/01/2017 Inactive fentanyl 100 mcg/hr transdermal patch RxNorm: 017719 1 Patch TD Q72H 04/27/2017 05/25/2017 Inactive carvedilol 3.125 mg tablet RxNorm: 537036 Tablet(s) GIVE 1 TABLET VIA PEG TUBE DAILY 04/15/2017 10/21/2017 Inactive Levemir FlexTouch 100 unit/mL (3 mL) subcutaneous insulin pen RxNorm: 790038 10 Unit(s) SQ BID 04/15/2017 2017 Inactive hyoscyamine 0.125 mg disintegrating tablet RxNorm: 4071041 1-2 Tablet(s) PO Q8 as needed 04/14/2017 05/03/2017 Inactive hydrocodone 10 mg-acetaminophen 325 mg tablet RxNorm: 969778 1 Tablet(s) PO scheduled BID et Q6 hours as needed 04/13/2017 05/02/2017 Inactive baclofen 10 mg tablet RxNorm: 621668 TAKE 1 TABLET THREE TIMES DAILY VIA STOMACH TUBE 04/08/2017 05/22/2017 Inactive 04/08/2017 9:32:07 AM fentanyl 25 mcg/hr transdermal patch RxNorm: 794572 1 Patch TD Q72H 04/05/2017 05/02/2017 Inactive lidocaine 10 mg/mL (1 %) injection solution RxNorm: 7166919 1 Milliliter(s) Inj daily Mix with rocephin 03/31/2017 03/30/2017 Inactive Pt resides at [facility] lidocaine 10 mg/mL (1 %) injection solution RxNorm: 4427287 1 Milliliter(s) Inj daily Mix with rocephin 03/31/2017 04/06/2017 Inactive Pt resides at [facility] fentanyl 100 mcg/hr transdermal patch RxNorm: 126187 1 Patch TD Q72H 03/29/2017 04/26/2017 Inactive nystatin 100,000 unit/gram topical powder RxNorm: 278988 APPLY UNDER BREASTS TWICE DAILY FOR YEAST SKIN INFECTION AND APPLY TO UNDERARM AND ABDOMINAL FOLDS AND PERIAREA TWICE DAILY 03/29/2017 03/28/2017 Inactive 03/27/2017 9:12:50 AM nystatin 100,000 unit/gram topical powder RxNorm: 794398 APPLY UNDER BREASTS TWICE DAILY FOR YEAST SKIN INFECTION AND APPLY TO UNDERARM AND ABDOMINAL FOLDS AND PERIAREA TWICE DAILY 03/29/2017 09/14/2017 Inactive 03/29/2017 9:42:55 AM03/27/2017 9:12:50 AM hyoscyamine 0.125 mg disintegrating tablet RxNorm: 5042779 1-2 Tablet(s) PO Q8 as needed 03/08/2017 03/27/2017 Inactive fentanyl 25 mcg/hr transdermal patch RxNorm: 014083 1 Patch TD Q72H 03/02/2017 03/31/2017 Inactive hydrocodone 10 mg-acetaminophen 325 mg tablet RxNorm: 457640 1 Tablet(s) PO scheduled BID et Q6 hours as needed 02/17/2017 03/18/2017 Inactive fentanyl 100 mcg/hr transdermal patch RxNorm: 246269 1 Patch TD Q72H 02/17/2017 03/18/2017 Inactive Lexapro 10 mg tablet RxNorm: 881291 1 Tablet(s) PO daily 02/05/2017 04/14/2017 Inactive Lexapro 10 mg tablet RxNorm: 014653 1 Tablet(s) PO daily 02/05/2017 02/04/2017 Inactive fentanyl 25 mcg/hr transdermal patch RxNorm: 513826 1 Patch TD Q72H 02/04/2017 03/01/2017 Inactive cyanocobalamin (vit B-12) 1,000 mcg tablet RxNorm: 407975 1 Tablet(s) PO daily 01/18/2017 12/13/2017 Inactive hyoscyamine 0.125 mg disintegrating tablet RxNorm: 9822158 Tablet(s) 1-2 Tablet(s) PO Q8 as needed 01/18/2017 02/06/2017 Inactive baclofen 10 mg tablet RxNorm: 466367 TAKE 1 TABLET THREE TIMES DAILY VIA STOMACH TUBE 01/04/2017 02/17/2017 Inactive 01/04/2017 9:25:18 AM fentanyl 100 mcg/hr transdermal patch RxNorm: 727795 1 Patch TD Q72H 12/25/2016 01/23/2017 Inactive hydrochlorothiazide 25 mg tablet RxNorm: 622900 Tablet(s) GIVE 1 TABLET VIA PEG TUBE ONCE A DAY 12/14/2016 07/11/2017 Inactive fentanyl 100 mcg/hr transdermal patch RxNorm: 921058 1 Patch TD Q72H 11/25/2016 12/24/2016 Inactive hyoscyamine 0.125 mg disintegrating tablet RxNorm: 4520873 Tablet(s) 1-2 Tablet(s) PO Q8 as needed 11/25/2016 12/14/2016 Inactive nystatin 100,000 unit/gram topical powder RxNorm: 769030 APPLY UNDER BREASTS TWICE DAILY FOR YEAST SKIN INFECTION AND APPLY TO UNDERARM AND ABDOMINAL FOLDS AND PERIAREA TWICE DAILY 11/24/2016 01/22/2017 Inactive 11/24/2016 9:34:02 AM hydrocodone 10 mg-acetaminophen 325 mg tablet RxNorm: 557585 1 Tablet(s) PO scheduled BID et Q6 hours as needed 11/02/2016 12/01/2016 Inactive cyanocobalamin (vit B-12) 1,000 mcg tablet RxNorm: 206250 1 Tablet(s) PO daily 11/02/2016 01/17/2017 Inactive hyoscyamine 0.125 mg disintegrating tablet RxNorm: 0438212 1-2 Tablet(s) PO Q8 as needed 10/19/2016 11/24/2016 Inactive fentanyl 100 mcg/hr transdermal patch RxNorm: 086817 1 Patch TD Q72H 10/13/2016 11/11/2016 Inactive hydrocodone 10 mg-acetaminophen 325 mg tablet RxNorm: 416862 1 Tablet(s) PO scheduled BID et Q6 hours as needed 10/05/2016 11/01/2016 Inactive baclofen 10 mg tablet RxNorm: 616901 TAKE 1 TABLET THREE TIMES DAILY VIA STOMACH TUBE 10/01/2016 11/14/2016 Inactive 10/01/2016 9:24:37 AM carvedilol 3.125 mg tablet RxNorm: 609287 GIVE 1 TABLET VIA PEG TUBE 2 TIMES A DAY 09/30/2016 12/28/2016 Inactive Generic For:COREG 3.125MG 09/30/2016 1:12:28 PM09/25/2016 9:06:11 AM Probiotic Blend 2 million cell-50 mg capsule RxNorm: 1 Capsule(s) PO BID 09/17/2016 09/23/2016 Inactive Keflex 500 mg capsule RxNorm: 870165 1 Capsule(s) PO TID 09/17/2016 09/23/2016 Inactive hyoscyamine 0.125 mg/5 mL oral elixir RxNorm: 2470128 5 Milliliter(s) PO TID 09/08/2016 09/17/2016 Inactive hyoscyamine 0.125 mg/5 mL oral elixir RxNorm: 8273848 5 Milliliter(s) PO TID 09/08/2016 09/07/2016 Inactive hyoscyamine 0.125 mg disintegrating tablet RxNorm: 8373369 1-2 Tablet(s) PO Q8 as needed 09/07/2016 10/18/2016 Inactive fentanyl 100 mcg/hr transdermal patch RxNorm: 375176 1 Patch TD Q72H 09/01/2016 09/30/2016 Inactive ranitidine 150 mg tablet RxNorm: 693978 1 Tablet(s) PO BID 08/25/2016 No Stop Date Active hydrocodone 10 mg-acetaminophen 325 mg tablet RxNorm: 043665 1 Tablet(s) PO scheduled BID et Q6 hours as needed 08/24/2016 09/22/2016 Inactive cyanocobalamin (vit B-12) 1,000 mcg tablet RxNorm: 190516 1 Tablet(s) PO daily 08/12/2016 11/01/2016 Inactive cyanocobalamin (vit B-12) 1,000 mcg tablet RxNorm: 948537 1 Tablet(s) PO daily 08/12/2016 08/11/2016 Inactive hydrocodone 10 mg-acetaminophen 325 mg tablet RxNorm: 035460 1-2 Tablet(s) PO Q6 as needed 08/03/2016 08/17/2016 Inactive fentanyl 100 mcg/hr transdermal patch RxNorm: 814864 1 Patch TD Q72H 08/03/2016 08/31/2016 Inactive nystatin 100,000 unit/gram topical powder RxNorm: 371540 APPLY UNDER BREASTS TWICE DAILY FOR YEAST SKIN INFECTION AND APPLY TO UNDERARM AND ABDOMINAL FOLDS AND PERIAREA TWICE DAILY 07/17/2016 09/14/2016 Inactive 07/17/2016 3:56:54 PM fentanyl 100 mcg/hr transdermal patch RxNorm: 690524 1 Patch TD Q72H 07/15/2016 08/02/2016 Inactive lisinopril 20 mg tablet RxNorm: 082997 1 Tablet(s) PO daily 07/02/2016 03/28/2017 Inactive hydrocodone 10 mg-acetaminophen 325 mg tablet RxNorm: 147632 1-2 Tablet(s) PO Q6 as needed 07/01/2016 07/15/2016 Inactive Xarelto 20 mg tablet RxNorm: 0007500 Tablet(s) TAKE 1 TABLET VIA PEG TUBE AT BEDTIME 06/19/2016 04/14/2017 Inactive fentanyl 100 mcg/hr transdermal patch RxNorm: 822849 1 Patch TD Q72H 06/17/2016 07/14/2016 Inactive nystatin 100,000 unit/gram topical powder RxNorm: 958467 APPLY TO UNDER BREASTS TWICE DAILY FOR YEAST SKIN INFECTION AND APPLY TO UNDERARM AND ABDOMINAL FOLDS AND PERIAREA TWICE DAILY 06/15/2016 07/16/2016 Inactive Generic For:MYCOSTATIN 100,000 UNITS/GM PW 06/15/2016 12:28:26 PM fentanyl 100 mcg/hr transdermal patch RxNorm: 276058 1 Patch TD Q72H 06/05/2016 06/16/2016 Inactive hydrocodone 10 mg-acetaminophen 325 mg tablet RxNorm: 314211 1-2 Tablet(s) PO Q6 as needed 06/02/2016 06/16/2016 Inactive Probiotic Blend 2 million cell-50 mg capsule RxNorm: 1 Capsule(s) PO BID 05/13/2016 05/19/2016 Inactive nitrofurantoin 100 mg capsule RxNorm: 876811 1 Capsule(s) PO BID 05/13/2016 05/19/2016 Inactive nitrofurantoin 100 mg capsule RxNorm: 648371 1 Capsule(s) PO BID 05/13/2016 05/12/2016 Inactive fentanyl 75 mcg/hr transdermal patch RxNorm: 467767 1 Patch TD Q72H 05/13/2016 06/04/2016 Inactive Keflex 500 mg capsule RxNorm: 763699 1 Capsule(s) PO TID 05/07/2016 05/13/2016 Inactive Patient at [facility] Keflex 500 mg capsule RxNorm: 105230 1 Capsule(s) PO TID 05/07/2016 05/06/2016 Inactive hydrocodone 10 mg-acetaminophen 325 mg tablet RxNorm: 784746 1-2 Tablet(s) PO Q6 as needed 05/04/2016 06/01/2016 Inactive hydrochlorothiazide 25 mg tablet RxNorm: 318006 Tablet(s) GIVE 1 TABLET VIA PEG TUBE ONCE A DAY 04/29/2016 11/24/2016 Inactive hydrochlorothiazide 25 mg tablet RxNorm: 926943 GIVE 1 TABLET VIA PEG TUBE ONCE A DAY 04/22/2016 04/28/2016 Inactive Generic For:HYDRODIURIL 25 MG TABLET refill request fentanyl 75 mcg/hr transdermal patch RxNorm: 111953 1 Patch TD Q72H 04/17/2016 05/12/2016 Inactive Xarelto 20 mg tablet RxNorm: 9855999 TAKE 1 TABLET VIA PEG TUBE AT BEDTIME 04/16/2016 06/14/2016 Inactive 04/16/2016 9:08:52 AM citalopram 40 mg tablet RxNorm: 734289 1 Tablet(s) PO daily 04/02/2016 02/25/2017 Inactive citalopram 40 mg tablet RxNorm: 497708 1 Tablet(s) PO daily 03/27/2016 04/01/2016 Inactive hydrocodone 10 mg-acetaminophen 325 mg tablet RxNorm: 123727 1-2 Tablet(s) PO Q6 as needed 03/27/2016 04/25/2016 Inactive fentanyl 75 mcg/hr transdermal patch RxNorm: 506362 1 Patch TD Q72H 03/18/2016 04/16/2016 Inactive hydrocodone 10 mg-acetaminophen 325 mg tablet RxNorm: 065429 1-2 Tablet(s) PO Q6 as needed 03/11/2016 03/26/2016 Inactive citalopram 40 mg tablet RxNorm: 830003 1 Tablet(s) PO daily 03/04/2016 03/26/2016 Inactive Levemir FlexTouch U-100 Insulin 100 unit/mL (3 mL) subcutaneous pen RxNorm: 903725 20 Unit(s) SQ BID 03/02/2016 09/27/2016 Inactive lisinopril 20 mg tablet RxNorm: 324866 1 Tablet(s) PO daily 02/25/2016 07/01/2016 Inactive Ativan 0.5 mg tablet RxNorm: 786551 1 Tablet(s) PO Q4H as needed 02/18/2016 04/14/2017 Inactive Xarelto 20 mg tablet RxNorm: 9140384 TAKE 1 TABLET VIA PEG TUBE AT BEDTIME 02/12/2016 04/11/2016 Inactive 02/12/2016 9:08:22 AM hydrocodone 10 mg-acetaminophen 325 mg tablet RxNorm: 642808 1-2 Tablet(s) PO Q6 as needed 02/12/2016 03/10/2016 Inactive fentanyl 75 mcg/hr transdermal patch RxNorm: 643809 1 Patch TD Q72H 02/11/2016 03/11/2016 Inactive citalopram 20 mg tablet RxNorm: 285397 1 Tablet(s) PO daily 01/28/2016 03/03/2016 Inactive fentanyl 75 mcg/hr transdermal patch RxNorm: 831039 1 TD Q72H 01/17/2016 02/10/2016 Inactive hydrocodone 10 mg-acetaminophen 325 mg tablet RxNorm: 251063 1-2 Tablet(s) PO Q6 as needed 01/07/2016 02/05/2016 Inactive fentanyl 50 mcg/hr transdermal patch RxNorm: 664025 1 TD Q72H 01/01/2016 01/16/2016 Inactive fentanyl 50 mcg/hr transdermal patch RxNorm: 195550 1 TD q 3 days 12/26/2015 12/31/2015 Inactive Xarelto 20 mg tablet RxNorm: 6863603 TAKE 1 TABLET VIA PEG TUBE AT BEDTIME 12/17/2015 02/11/2016 Inactive 12/16/2015 3:27:57 PM12/14/2015 9:45:17 AM hydrocodone 10 mg-acetaminophen 325 mg tablet RxNorm: 469449 1-2 Tablet(s) PO Q6 as needed 12/06/2015 01/04/2016 Inactive fentanyl 50 mcg/hr transdermal patch RxNorm: 512809 1 TD q 3 days 12/06/2015 12/25/2015 Inactive fentanyl 25 mcg/hr transdermal patch RxNorm: 085052 1 TD q 3 days 11/18/2015 12/05/2015 Inactive Zithromax Z-Eliu 250 mg tablet RxNorm: 756242 1 Tablet(s) PO UD 10/09/2015 02/26/2016 Inactive z pack as directed- please write out instructions- pt at [facility] nystatin 100,000 unit/gram topical powder RxNorm: 939205 APPLY TO UNDER BREASTS TWICE DAILY FOR YEAST SKIN INFECTION AND APPLY TO UNDERARM AND ABDOMINAL FOLDS AND PERIAREA TWICE DAILY 10/07/2015 12/05/2015 Inactive Generic For:MYCOSTATIN 100,000 UNITS/GM PW 10/05/2015 12:07:35 PM fentanyl 25 mcg/hr transdermal patch RxNorm: 702920 1 TD q 3 days 10/03/2015 11/01/2015 Inactive fentanyl 25 mcg/hr transdermal patch RxNorm: 448096 1 TD q 3 days 09/27/2015 10/02/2015 Inactive fentanyl 25 mcg/hr transdermal patch RxNorm: 313533 1 TD q 3 days 09/17/2015 09/26/2015 Inactive fentanyl 25 mcg/hr transdermal patch RxNorm: 152108 1 TD q 3 days 08/30/2015 09/16/2015 Inactive hydrocodone 5 mg-acetaminophen 325 mg tablet RxNorm: 612061 1 Tablet(s) PO Q6 as needed 08/30/2015 09/28/2015 Inactive Diflucan 100 mg tablet RxNorm: 323808 1 Tablet(s) Miscellaneous per peg daily 07/29/2015 08/04/2015 Inactive fentanyl 25 mcg/hr transdermal patch RxNorm: 203030 1 TD q 3 days 07/18/2015 08/29/2015 Inactive hydrocodone 5 mg-acetaminophen 325 mg tablet RxNorm: 198569 1 Tablet(s) PO Q6 as needed 07/18/2015 08/29/2015 Inactive Diflucan 100 mg tablet RxNorm: 503044 1 Tablet(s) Miscellaneous per peg daily 06/17/2015 06/23/2015 Inactive Senna-S 8.6 mg-50 mg tablet RxNorm: 516156 1 Tablet(s) PO daily as needed constipation No Start Date Active Dulcolax (bisacodyl) 10 mg rectal suppository RxNorm: 404510 1 Suppository RTL daily as needed constipation No Start Date Active polyethylene glycol 3350 17 gram/dose oral powder RxNorm: 677046 17 Gram(s) PO daily as needed constipation No Start Date Active baclofen 10 mg tablet RxNorm: 104021 1 Tablet(s) PO TID No Start Date 09/30/2016 Inactive Ativan 0.5 mg tablet RxNorm: 724117 1 Tablet(s) PO Q4H as needed No Start Date 02/17/2016 Inactive ranitidine 150 mg tablet RxNorm: 209412 1 Tablet(s) PO daily No Start Date 08/24/2016 Inactive carvedilol 3.125 mg tablet RxNorm: 653557 1 Tablet(s) PO daily No Start Date 09/29/2016 Inactive citalopram 40 mg tablet RxNorm: 374331 1 Tablet(s) PO daily No Start Date 01/27/2016 Inactive Probiotic Blend oral RxNorm: oral No Start Date 05/12/2016 Inactive hydrochlorothiazide 25 mg tablet RxNorm: 929977 1 Tablet(s) PO daily No Start Date 04/21/2016 Inactive albuterol sulfate concentrate 5 mg/mL(0.5 %) solution for nebulization RxNorm: 873239 1 Vial INH daily as needed congestion No Start Date 03/17/2018 Inactive Levemir FlexTouch 100 unit/mL (3 mL) subcutaneous insulin pen RxNorm: 706035 10 Unit(s) SQ BID No Start Date 03/01/2016 Inactive Zithromax Z-Eliu 250 mg tablet RxNorm: 594765 1 Tablet(s) PO UD No Start Date 10/08/2015 Inactive z pack as directed- please write out instructions- pt at [facility] nystatin 100,000 unit/gram topical powder RxNorm: 520773 Gram(s) TOP BID as needed No Start Date 10/06/2015 Inactive pravastatin 40 mg tablet RxNorm: 871096 Tablet(s) PO daily No Start Date 04/14/2017 Inactive lorazepam 0.5 mg tablet RxNorm: 905325 1/2 Tablet(s) PO BID No Start Date 05/02/2017 Inactive Xarelto 20 mg tablet RxNorm: 7663441 1 Tablet(s) PO daily No Start Date 12/16/2015 Inactive fentanyl 25 mcg/hr transdermal patch RxNorm: 842569 1 TD q 3 days No Start Date 07/17/2015 Inactive lisinopril 20 mg tablet RxNorm: 175036 1 Tablet(s) PO daily No Start Date 02/24/2016 Inactive hydrocodone 5 mg-acetaminophen 325 mg tablet RxNorm: 352628 1 Tablet(s) PO Q6 as needed No Start Date 07/17/2015 Inactive citalopram 40 mg tablet RxNorm: 488060 1 Tablet(s) PO daily No Start Date 03/03/2016 Inactive hyoscyamine 0.125 mg disintegrating tablet RxNorm: 4461227 1-2 Tablet(s) PO Q8 as needed No Start Date 09/06/2016 Inactive Medication Administered No Medication Administered data Immunizations No Immunization data Assessments Condition Codes Effective Dates Chronic pain syndrome ICD-10: G89.4 ICD-9: 338.4 05/17/2018 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 ICD-9: 438.82 05/17/2018 Essential (primary) hypertension ICD-10: I10 ICD-9: 401.9 05/17/2018 Type 2 diabetes mellitus without complications ICD-10: E11.9 ICD-9: 250.00 05/17/2018 Cough ICD-10: R05 ICD-9: 786.2 03/18/2018 [...] Reason For Visit Effective Dates Notes hypertension 05/17/2018 cough 03/18/2018 hypertension 01/07/2018 hypertension 2017 pain 09/09/2017 pain 06/08/2017 hypertension 04/15/2017 ~generic 02/16/2017 PEG tube ~generic 11/09/2016 PEG tube earache 07/18/2015 hypertension 06/17/2015 Results Observation Observation Code Item Item Code Result Date %Hba1C Buo191 % HbA1c 31968- 6 5.5 % 05/18/2018 %Hba1C Xwe993 Gluc Ave 111 mg/dL 05/18/2018 Cbc With [...] 32.3 pg 05/18/2018 Cbc With Differential Ord2 [place]% 4.9 % 05/18/2018 Cbc With Differential Ord2 [...] 1.81 K/ul 05/18/2018 Cbc With Differential Ord2 [place] ABS# 0.4 K/ul 05/18/2018 Cbc With Differential Ord2 Eos ABS# 0.6 K/ul 05/18/2018 Cbc With Differential Ord2 Baso ABS# 0.0 K/ul 05/18/2018 Tsh Ord6 TSH (3rd IS) 0.85 uIU/mL 05/18/2018 Comp Metabolic Kjr334 NA 137 mEq/L 05/18/2018 Comp Metabolic Pig543 K 4.2 mEq/L 05/18/2018 Comp Metabolic Cwt573 CL 97 mEq/L 05/18/2018 Comp Metabolic Nlz415 CO2 34.0 mEq/L 05/18/2018 Comp Metabolic Ndn038 ANION GAP 10 05/18/2018 Comp Metabolic Qdh280 GLUCOSE 177 mg/dL 05/18/2018 Comp Metabolic Std231 Creat 0.5 mg/dL 05/18/2018 Comp Metabolic Qmk673 eGFR 122 ml/min/1.73m2 05/18/2018 Comp Metabolic Agy563 BUN 23 mg/dL 05/18/2018 Comp Metabolic Ass544 B/C Ratio 43.4 Ratio 05/18/2018 Comp Metabolic Ayb721 CALCIUM 9.2 mg/dL 05/18/2018 Comp Metabolic Dxj622 ALK PHOS 86 U/L 05/18/2018 Comp Metabolic Xyq178 AST(SGOT) 14 U/L 05/18/2018 Comp Metabolic Bgl727 ALT(SGPT) 9 U/L 05/18/2018 Comp Metabolic Pqf244 BILI T 0.3 mg/dL 05/18/2018 Comp Metabolic Alk644 ALBUMIN 3.7 g/dL 05/18/2018 Comp Metabolic Qkg306 TPRO 6.2 g/dL 05/18/2018 Comp Metabolic Nbr745 GLOB 2.6 g/dL 05/18/2018 Comp Metabolic Tdg251 A/G Ratio 1.4 Ratio 05/18/2018 Comp Metabolic Ddd390 Osmo 282 mOsmo 05/18/2018 A1C Frequency Qey047 A1CF 97341-4 Last A1C performed at [facility] lab on: 02-14-2018 05/10/2018 Cbc With Differential [...] 30.7 pg 02/14/2018 Cbc With Differential Ord2 [place]% 7.4 % 02/14/2018 Cbc With Differential Ord2 [...] 2.14 K/ul 02/14/2018 Cbc With Differential Ord2 [place] ABS# 0.5 K/ul 02/14/2018 Cbc With Differential Ord2 Eos ABS# 0.3 K/ul 02/14/2018 Cbc With Differential Ord2 Baso ABS# 0.0 K/ul 02/14/2018 Comp Metabolic Dxr845 NA 142 mEq/L 02/14/2018 Comp Metabolic Xpy999 K 4.5 mEq/L 02/14/2018 Comp Metabolic Omm053 CL 97 mEq/L 02/14/2018 Comp Metabolic Thn244 CO2 41.0 mEq/L 02/14/2018 Comp Metabolic Jrs953 ANION GAP 9 02/14/2018 Comp Metabolic Twf237 GLUCOSE 111 mg/dL 02/14/2018 Comp Metabolic Apb203 Creat 0.6 mg/dL 02/14/2018 Comp Metabolic Qkx425 eGFR 108 ml/min/1.73m2 02/14/2018 Comp Metabolic Ynj213 BUN 32 mg/dL 02/14/2018 Comp Metabolic Ogj716 B/C Ratio 54.2 Ratio 02/14/2018 Comp Metabolic Uwx767 CALCIUM 8.9 mg/dL 02/14/2018 Comp Metabolic Afj346 ALK PHOS 81 U/L 02/14/2018 Comp Metabolic Vtf970 AST(SGOT) 14 U/L 02/14/2018 Comp Metabolic Ikq699 ALT(SGPT) 11 U/L 02/14/2018 Comp Metabolic Vli778 BILI T 0.3 mg/dL 02/14/2018 Comp Metabolic Eez960 ALBUMIN 3.4 g/dL 02/14/2018 Comp Metabolic Taj871 TPRO 6.3 g/dL 02/14/2018 Comp Metabolic Tqy722 GLOB 2.9 g/dL 02/14/2018 Comp Metabolic Vea985 A/G Ratio 1.2 Ratio 02/14/2018 Comp Metabolic Uzk082 Osmo 291 mOsmo 02/14/2018 %Hba1C Aoc875 % HbA1c 68132- 6 5.5 % 02/14/2018 %Hba1C Bik516 Gluc Ave 111 mg/dL 02/14/2018 Prealbumin 513360 PREALBUMIN 27 mg/dL 11/24/2017 %Hba1C Nnx022 % HbA1c 00715- 6 5.5 % 11/04/2017 %Hba1C Qgg837 Gluc Ave 111 mg/dL 11/04/2017 Culture Urine [id number] URINE CULTURE SEE NOTES 10/04/2017 Culture Urine [id number] Continued Results 10/04/2017 Urine Culture Ucult Complete [...] Ord28 U-Com Culture to follow 10/01/2017 B12 Ryk990 B12 >1500.00 pg/ml 02/19/2017 Cbc With Differential [...] 31.5 pg 02/02/2017 Cbc With Differential Ord2 Montgomery% 8.3 % 02/02/2017 Cbc With Differential Ord2 [...] 2.28 K/ul 02/02/2017 Cbc With Differential Ord2 [place] ABS# 0.6 K/ul 02/02/2017 Cbc With Differential Ord2 Eos ABS# 0.4 K/ul 02/02/2017 Cbc With Differential Ord2 Baso ABS# 0.0 K/ul 02/02/2017 %Hba1C Gol732 % HbA1c 87266- 6 5.2 % 02/02/2017 %Hba1C Fbq193 Gluc Ave 103 mg/dL 02/02/2017 Comp Metabolic Kyc601 NA 138 mEq/L 02/02/2017 Comp Metabolic Uuk963 K 4.5 mEq/L 02/02/2017 Comp Metabolic Uhv167 CL 98 mEq/L 02/02/2017 Comp Metabolic Obd714 CO2 37.0 mEq/L 02/02/2017 Comp Metabolic Uyp040 ANION GAP 8 02/02/2017 Comp Metabolic Zdq539 GLUCOSE 94 mg/dL 02/02/2017 Comp Metabolic Hiu485 Creat 0.7 mg/dL 02/02/2017 Comp Metabolic Rde453 eGFR 88 ml/min/1.73m2 02/02/2017 Comp Metabolic Nqq734 BUN 36 mg/dL 02/02/2017 Comp Metabolic Enj534 B/C Ratio 50.7 Ratio 02/02/2017 Comp Metabolic Maz029 CALCIUM 9.0 mg/dL 02/02/2017 Comp Metabolic Tsn632 ALK PHOS 78 U/L 02/02/2017 Comp Metabolic Bzq462 AST(SGOT) 22 U/L 02/02/2017 Comp Metabolic Ycv577 ALT(SGPT) 28 U/L 02/02/2017 Comp Metabolic Wkn896 BILI T 0.3 mg/dL 02/02/2017 Comp Metabolic Vql165 ALBUMIN 3.3 g/dL 02/02/2017 Comp Metabolic Czl516 TPRO 5.9 g/dL 02/02/2017 Comp Metabolic Gou627 GLOB 2.6 g/dL 02/02/2017 Comp Metabolic Emm725 A/G Ratio 1.3 Ratio 02/02/2017 Comp Metabolic Yrg693 Osmo 284 mOsmo 02/02/2017 %Hba1C Dlh149 % HbA1c 07513- 6 5.0 % 10/29/2016 %Hba1C Crc808 Gluc Ave 97 mg/dL 10/29/2016 Culture Urine [id number] URINE CULTURE SEE NOTES 09/21/2016 Culture Urine [id number] Continued Results 09/21/2016 Urine Culture Ucult Complete [...] 32.4 pg 07/30/2016 Cbc With Differential Ord2 Montgomery% 7.2 % 07/30/2016 Cbc With Differential Ord2 [...] 2.69 K/ul 07/30/2016 Cbc With Differential Ord2 [place] ABS# 0.5 K/ul 07/30/2016 Cbc With Differential Ord2 Eos ABS# 0.5 K/ul 07/30/2016 Cbc With Differential Ord2 Baso ABS# 0.0 K/ul 07/30/2016 Comp Metabolic Tin878 NA 141 mEq/L 07/30/2016 Comp Metabolic Uzh030 K 4.3 mEq/L 07/30/2016 Comp Metabolic Ihy352 CL 100 mEq/L 07/30/2016 Comp Metabolic Hue792 CO2 33.0 mEq/L 07/30/2016 Comp Metabolic Mib047 ANION GAP 12 07/30/2016 Comp Metabolic Hgb723 GLUCOSE 64 mg/dL 07/30/2016 Comp Metabolic Qpu129 Creat 0.5 mg/dL 07/30/2016 Comp Metabolic Axk803 eGFR 126 ml/min/1.73m2 07/30/2016 Comp Metabolic Vmg927 BUN 25 mg/dL 07/30/2016 Comp Metabolic Fmo571 B/C Ratio 48.1 Ratio 07/30/2016 Comp Metabolic Uhc760 CALCIUM 8.9 mg/dL 07/30/2016 Comp Metabolic Ybn624 ALK PHOS 90 U/L 07/30/2016 Comp Metabolic Skm744 AST(SGOT) 22 U/L 07/30/2016 Comp Metabolic Kyx751 ALT(SGPT) 36 U/L 07/30/2016 Comp Metabolic Opl076 BILI T 0.3 mg/dL 07/30/2016 Comp Metabolic Hpd462 ALBUMIN 3.4 g/dL 07/30/2016 Comp Metabolic Rsl852 TPRO 6.0 g/dL 07/30/2016 Comp Metabolic Mms015 GLOB 2.7 g/dL 07/30/2016 Comp Metabolic Flj096 A/G Ratio 1.3 Ratio 07/30/2016 Comp Metabolic Oxo388 Osmo 284 mOsmo 07/30/2016 A1C Frequency Moj098 A1CF 13441-5 Last A1C performed at [facility] lab on: 05-12-2016 07/30/2016 %Hba1C Lbn023 % HbA1c 90359- 6 5.2 % 05/12/2016 %Hba1C Miu330 Gluc Ave 103 mg/dL 05/12/2016 Culture Urine [id number] URINE CULTURE SEE NOTES 05/11/2016 Urine Culture [...] U-Com Culture to follow 05/06/2016 Culture Urine [id number] URINE CULTURE SEE NOTES 03/17/2016 Culture Urine [id number] Continued Results 03/17/2016 Urine Culture Ucult Complete [...] 32.0 pg 02/11/2016 Cbc With Differential Ord2 [place]% 9.1 % 02/11/2016 Cbc With Differential Ord2 [...] 2.59 K/ul 02/11/2016 Cbc With Differential Ord2 [place] ABS# 0.6 K/ul 02/11/2016 Cbc With Differential Ord2 Eos ABS# 0.3 K/ul 02/11/2016 Cbc With Differential Ord2 Baso ABS# 0.0 K/ul 02/11/2016 Comp Metabolic Ewc225 NA 137 mEq/L 02/11/2016 Comp Metabolic Zyp273 K 4.4 mEq/L 02/11/2016 Comp Metabolic Qko961 CL 100 mEq/L 02/11/2016 Comp Metabolic Piw461 CO2 25.0 mEq/L 02/11/2016 Comp Metabolic Urt136 ANION GAP 16 02/11/2016 Comp Metabolic Eme444 GLUCOSE 99 mg/dL 02/11/2016 Comp Metabolic Ogz982 Creat 0.6 mg/dL 02/11/2016 Comp Metabolic Hzp690 eGFR 99 ml/min/1.73m2 02/11/2016 Comp Metabolic Vou517 BUN 27 mg/dL 02/11/2016 Comp Metabolic Txn825 B/C Ratio 42.2 Ratio 02/11/2016 Comp Metabolic Bqi738 CALCIUM 9.2 mg/dL 02/11/2016 Comp Metabolic Xlu520 ALK PHOS 74 U/L 02/11/2016 Comp Metabolic Fcu453 AST(SGOT) 24 U/L 02/11/2016 Comp Metabolic Ime016 ALT(SGPT) 26 U/L 02/11/2016 Comp Metabolic Qtl910 BILI T 0.5 mg/dL 02/11/2016 Comp Metabolic Wyx856 ALBUMIN 3.5 g/dL 02/11/2016 Comp Metabolic Tap070 TPRO 6.2 g/dL 02/11/2016 Comp Metabolic Gfq988 GLOB 2.7 g/dL 02/11/2016 Comp Metabolic Aro923 A/G Ratio 1.3 Ratio 02/11/2016 Comp Metabolic Efb999 Osmo 279 mOsmo 02/11/2016 Review of Systems System Result Effective Dates Constitutional No recent illness 05/17/2018 Constitutional No [...] CPT-4: G8553 06/17/2015 Vital Signs Date Vital 05/17/2018 Blood Pressure 1: 134/72 Code: 8480-6 [...] 1: 128/86 Code: 8480-6 BMI: 31.4 Code: 38759-8 Heart Rate 1: 72 bpm Height: 5'1" Weight: 166 lbs 06/17/2015 Blood Pressure 1: 110/78 Code: 8480-6 BMI: 33.3 Code: 82234-6 Heart Rate 1: 74 bpm Height: 5'1" SpO2: 92% Weight: 176 lbs Functional Status No Functional Status data History of Present Illness Symptom Name Status Result Effective Date Notes Quality primary hypertension 05/17/2018 None Quality stable [...] data Encounters Encounter Performer Location Codes Date ([id number]) 37832 EST. PATIENT, LEVEL IV Diagnosis: Essential (primary) hypertension[ICD10: I10] Diagnosis: Chronic pain syndrome[ICD10: G89.4] Diagnosis: Type 2 diabetes mellitus without complications[ICD10: E11.9] Diagnosis: Dysphagia following cerebral infarction[ICD10: I69.391] Carlyn Everett MD, [facility] CPT-4: 22117 05/17/2018 ([id number]) 44516 EST. PATIENT, LEVEL IV Diagnosis: Cough[ICD10: R05] Diagnosis: Pneumonia, unspecified organism[ICD10: J18.9] Diagnosis: Pain in right knee[ICD10: M25.561] Carlyn Everett MD, [facility] CPT- 4: 58098 03/18/2018 ([id number]) 95969 EST. PATIENT, LEVEL IV Diagnosis: Type 2 diabetes mellitus without complications[ICD10: E11.9] Diagnosis: Essential (primary) hypertension[ICD10: I10] Diagnosis: Chronic pain syndrome[ICD10: G89.4] Carlyn Everett MD, [facility] CPT-4: 55558 01/07/2018 ([id number]) 69082 EST. PATIENT, LEVEL IV Diagnosis: Essential (primary) hypertension[ICD10: I10] Diagnosis: Type 2 diabetes mellitus without complications[ICD10: E11.9] Carlyn Everett MD, [facility] CPT-4: 61081 2017 ([id number]) 06641 EST. PATIENT, LEVEL IV Diagnosis: Type 2 diabetes mellitus with hyperglycemia[ICD10: E11.65] Diagnosis: Essential (primary) hypertension[ICD10: I10] Diagnosis: Pain in left shoulder[ICD10: M25.512] Diagnosis: Pain in right shoulder[ICD10: M25.511] Diagnosis: Pain in left knee[ICD10: M25.562] Diagnosis: Pain in right knee[ICD10: M25.561] Vonda Everett MD, [facility] CPT- 4: 81540 09/09/2017 51391 EST. PATIENT, LEVEL IV Diagnosis: Essential (primary) hypertension[ICD10: I10] Diagnosis: Type 2 diabetes mellitus with hyperglycemia[ICD10: E11.65] Diagnosis: Low back pain[ICD10: M54.5] Sunitha Everett MD, [facility] CPT-4: 39345 06/08/2017 ([id number]) 35015 EST. PATIENT, LEVEL IV Diagnosis: Essential (primary) hypertension[ICD10: I10] Diagnosis: Type 2 diabetes mellitus with hyperglycemia[ICD10: E11.65] Diagnosis: Low back pain[ICD10: M54.5] Sunitha Everett MD, [facility] CPT-4: 78626 04/15/2017 ([id number]) 70373 EST. PATIENT, LEVEL IV Diagnosis: Essential (primary) hypertension[ICD10: I10] Diagnosis: Type 2 diabetes mellitus with hyperglycemia[ICD10: E11.65] Diagnosis: Low back pain[ICD10: M54.5] Vonda Everett MD, [facility] CPT-4: 38505 02/16/2017 53360 EST. 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] Diagnosis: Ataxia following cerebral infarction[ICD10: I69.393] Diagnosis: 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] Diagnosis: Dysphagia following cerebral infarction[ICD10: I69.391] 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] Diagnosis: Candidal esophagitis[ICD10: B37.81] [facility] CPT- 4: 27464 06/17/2015 Plan of Care Planned Activity Notes [...] oral supplements 05/17/2018 Appointment: Carlyn Higginbotham [facility]el[phone] (15 min) Moderate 05/17/2018 Patient Education: Patient Medication Summary Completed 05/17/2018 Patient Education: Hypertension Completed 05/17/2018 Patient Education: Diabetes Completed 05/17/2018 Appointment: Carlyn Higginbotham WPtel: [phone] [place] (15 min) Moderate 04/07/2018 Visit Plan: Pneumonia - Pt has been diagnosed with pneumonia by physical exam. A chest xray has been ordered as have antibiotics. The pt is aware of the diagnosis and the need for acute treatment of this illness. Right knee pain -xray knee-rx for voltaren gel 03/18/2018 Appointment: Carlyn Higginbotham WPtel[phone] [place] (30 min) Complex 03/18/2018 Patient Education: Patient Medication Summary Completed 03/18/2018 Appointment: Carlyn Higginbotham WPtel: [phone] [place] (30 min) Complex 03/17/2018 Appointment: Carlyn Higginbotham WPtel: [phone] [place] (15 min) Moderate 03/10/2018 Appointment: Carlyn Higginbotham WPtel: [phone] [place] (15 min) Moderate 02/08/2018 Visit Plan: DM -decrease levemir to 4 units daily -monitor blood sugars JEN-gnyjpblrdv-ln changes Chronic pain -well controlled with fentanyl patch -no changes at this time 01/07/2018 Appointment: Carlyn Higginbotham WPtel: [phone] [place] (15 min) Moderate 01/07/2018 [...] AT HS 2017 Appointment: Carlyn Higginbotham WPtel: [phone] [phone] [place] (15 min) Moderate 2017 [...] to 175mcg. 09/09/2017 Appointment: Vonda Everett WPtel: [phone] [facility] [place] (15 min) Moderate 09/09/2017 Patient Education: [...] and PRN pain medications - will have long term fax over PRN medication administration record. 06/08/2017 Appointment: Sunith[facility] Pat[facility]el[facility] [phone] [facility] (30 min) Complex 06/08/2017 Patient Education: [...] over-medication. 04/15/2017 Appointment: Sunith[facility] Pat[facility]el[facility] [phone] [facility] (30 min) Complex 04/15/2017 Patient Education: [...] today. 02/16/2017 [phone] [facility] (15 min) Moderate 02/16/2017 Patient Education: [...] concerns. 11/09/2016 Appointment: [facility]ith[facility] Pat[facility]el[facility] [phone] [facility] (30 min) Complex 11/09/2016 Patient Education: Patient Medication Summary Completed 11/09/2016 Care Plan: Referral Order SNOMED-CT : [id number] Pending 11/09/2016 Patient Education: Patient Medication Summary [...] Follow up weight in 1 month Neck nkry-omnffjxsfjn-Jvzy PT focus neck/upper body Right earache-cerumen removed with water pick today in the office 07/18/2015 Appointment: (30 min) Complex 07/18/2015 Patient Education: Patient Medication Summary Completed 07/18/2015 Patient Education: Obesity Completed 07/18/2015 Patient Education: .Cervicalgia Neck Pain Completed 07/18/2015 Referral: [facility] WPtel: [phone] Referral Completed 06/25/2015 Visit Plan: Hypertension [...] normal liver response to medications. [facility] - left sided weakness, neck stiffness, upper extremity weakness Diabetes Mellitus - controlled - per family report - check labs this week, get report from and [facility]. I spent over an hour with the patient in direct contact. 06/17/2015 Appointment: Vonda Everett WPtel: [phone] New Patient 06/17/2015 Patient Education: Patient Medication Summary Completed 06/17/2015 Patient Education: Obesity Completed 06/17/2015 Patient Education: Hypertension Completed 06/17/2015 Care Plan: Referral Order SNOMED-CT : [id number] Ordered 06/17/2015 Referral: Jorge Luis Carroll Referral Initiated Referral: [facility] WPtel: [phone] Referral Appointment Requested Instructions Comment . [...] liver response to medications. referral to [facility] therapy for post stroke - left sided weakness, neck stiffness, upper extremity weakness Diabetes Mellitus - controlled - per family report - check labs this week, get report from and [facility]. I spent over an hour [...] Follow up weight in 1 month Neck cvim-cryelztmzjn-Fajd PT focus neck/upper body Right earache-cerumen removed [...] to 4 units daily -monitor blood sugars ZML-ahijjfmnoc-qi changes Chronic pain -well controlled with fentanyl [...] and PRN pain medications - will have long term fax over PRN medication administration record. . [...]
--- OUTSIDE RECORDS SUMMARY | 2018-08-09 10:58 | XMS REPORT | CCD ---
Author Author Vonda Evertet Organization [facility] Address [address] [place] [address] Phone Care Team Providers Care Roll Builder Name Role Phone PP Unavailable CCM Unavailable Summary Purpose Interface Exchange Insurance Providers Payer name Policy type / Coverage type Covered green party ID Effective Begin Date Effective End Date WPS Medicare Part B Medicare Part B [id number] Unknown Unknown [facility] Life Insurance Medicare Part B [id number] Unknown Unknown Family history Father Diagnosis Age At Onset Arthritis Unknown Hypertension Unknown Mother Diagnosis Age At Onset Diabetes mellitus Type 2 Unknown Depression Unknown Arthritis Unknown Stroke Unknown Hypertension Unknown Sister Diagnosis Age At Onset Colon cancer Unknown Social History Social History Element Codes Description Effective Dates Marital status Unknown Maurice 01/07/2018 Living arrangements Unknown Residential [facility] 04/15/2017 Number of children Unknown 3 06/17/2015 Employment Unknown Retired 06/17/[address]: 0306449 Quit over 10 years ago 15+ 06/17/[address]: 273767332 Never drinks alcohol 06/17/2015 Allergies, Adverse Reactions, [...] hydrocodone 10 mg-acetaminophen 325 mg tablet RxNorm: 228595 2 Tablet(s) PO scheduled TID 06/22/2018 07/06/2018 Active Not to exceed 3gm/24hr acetaminophen citalopram 40 mg tablet RxNorm: 140230 1 Tablet(s) PO daily 06/20/2018 05/15/2019 Active Voltaren 1 % topical gel RxNorm: 479747 APPLY 4 GRAMS TO RIGHT KNEE FOUR TIMES DAILY 06/13/2018 07/06/2018 Active Generic For:VOLTAREN GEL 1% 06/13/2018 10:59:02 AM hydrocodone 10 mg-acetaminophen 325 mg tablet RxNorm: 753920 2 Tablet(s) PO scheduled TID 06/07/2018 06/21/2018 Inactive Not to exceed 3gm/24hr acetaminophen fentanyl 100 mcg/hr transdermal patch RxNorm: 962906 1 Patch TD Q72H 06/03/2018 07/02/2018 Inactive Duragesic 75 mcg/hr transdermal patch RxNorm: 030140 1 Patch TD Q72H 06/03/2018 07/02/2018 Inactive hyoscyamine 0.125 mg disintegrating tablet RxNorm: 4597789 Tablet(s) Tablet(s) 1-2 Tablet(s) PO Q8 as needed 05/27/2018 No Stop Date Active lorazepam 0.5 mg tablet RxNorm: 183091 1 Tablet(s) PO BID and 1 tab q 6 hours prn 05/24/2018 07/04/2018 Inactive hydrocodone 10 mg-acetaminophen 325 mg tablet RxNorm: 830429 2 Tablet(s) PO scheduled TID 05/24/2018 06/06/2018 Inactive Not to exceed 3gm/24hr acetaminophen citalopram 20 mg tablet RxNorm: 424505 1 Tablet(s) PO daily 05/17/2018 06/19/2018 Inactive hydrocodone 10 mg-acetaminophen 325 mg tablet RxNorm: 530150 2 Tablet(s) PO scheduled TID 04/19/2018 05/18/2018 Inactive Not to exceed 3gm/24hr acetaminophen lorazepam 0.5 mg tablet RxNorm: 433003 1 Tablet(s) PO BID and 1 tab q 6 hours prn 04/07/2018 05/23/2018 Inactive hyoscyamine 0.125 mg disintegrating tablet RxNorm: 8025900 Tablet(s) 1-2 Tablet(s) PO Q8 as needed 03/31/2018 05/26/2018 Inactive Duragesic 75 mcg/hr transdermal patch RxNorm: 320164 1 Patch TD Q72H 03/31/2018 04/29/2018 Inactive fentanyl 100 mcg/hr transdermal patch RxNorm: 272221 1 Patch TD Q72H 03/31/2018 04/29/2018 Inactive carvedilol 3.125 mg tablet RxNorm: 187099 Tablet(s) GIVE 1 TABLET VIA PEG TUBE 2 TIMES A DAY 03/30/2018 06/27/2018 Inactive Generic For:COREG 3.125MG 10/22/2017 9:23:30 AM Voltaren 1 % topical gel RxNorm: 283932 APPLY 4 GRAMS TO RIGHT KNEE FOUR TIMES DAILY 03/30/2018 04/22/2018 Inactive Generic For:VOLTAREN GEL 1% 03/30/2018 11:14:57 AM hydrocodone 10 mg-acetaminophen 325 mg tablet RxNorm: 985898 2 Tablet(s) PO scheduled TID 03/23/2018 04/18/2018 Inactive Not to exceed 3gm/24hr acetaminophen albuterol sulfate concentrate 5 mg/mL(0.5 %) solution for nebulization RxNorm: 050501 1 Vial Milliliter(s) INH TID PRN as needed congestion 03/18/2018 No Stop Date Active cefdinir 300 mg capsule RxNorm: 391341 1 Capsule(s) PO BID 03/18/2018 03/24/2018 Inactive Zithromax Z-Eliu 250 mg tablet RxNorm: 931151 Tablet(s) PO 03/18/2018 05/16/2018 Inactive Voltaren 1 % topical gel RxNorm: 452177 4 Gram(s) TOP QID 03/18/2018 03/29/2018 Inactive hydrochlorothiazide 25 mg tablet RxNorm: 177736 GIVE 1 TABLET VIA PEG TUBE ONCE DAILY 03/11/2018 09/06/2018 Active Generic For:HYDRODIURIL 25 MG TABLET 03/11/2018 9:15:32 AM fentanyl 100 mcg/hr transdermal patch RxNorm: 198547 1 Patch TD Q72H 03/02/2018 03/30/2018 Inactive Duragesic 75 mcg/hr transdermal patch RxNorm: 727729 1 Patch TD Q72H 03/02/2018 03/30/2018 Inactive hydrocodone 10 mg-acetaminophen 325 mg tablet RxNorm: 585086 2 Tablet(s) PO scheduled TID 02/18/2018 03/22/2018 Inactive Not to exceed 3gm/24hr acetaminophen hyoscyamine 0.125 mg disintegrating tablet RxNorm: 8890772 Tablet(s) 1-2 Tablet(s) PO Q8 as needed 02/08/2018 03/30/2018 Inactive fentanyl 100 mcg/hr transdermal patch RxNorm: 187364 1 Patch TD Q72H 02/04/2018 03/01/2018 Inactive hydrocodone 10 mg-acetaminophen 325 mg tablet RxNorm: 891905 2 Tablet(s) PO scheduled TID 02/04/2018 02/17/2018 Inactive Not to exceed 3gm/24hr acetaminophen Duragesic 75 mcg/hr transdermal patch RxNorm: 850001 1 Patch TD Q72H 02/04/2018 03/01/2018 Inactive Levemir FlexTouch U-100 Insulin 100 unit/mL (3 mL) subcutaneous pen RxNorm: 421615 4 Unit(s) SQ QHS 01/07/2018 No Stop Date Active Duragesic 75 mcg/hr transdermal patch RxNorm: 649044 1 Patch TD Q72H 01/07/2018 02/03/2018 Inactive fentanyl 100 mcg/hr transdermal patch RxNorm: 844875 1 Patch TD Q72H 01/07/2018 02/03/2018 Inactive hydrocodone 10 mg-acetaminophen 325 mg tablet RxNorm: 368486 2 Tablet(s) PO scheduled TID 01/05/2018 02/03/2018 Inactive Not to exceed 3gm/24hr acetaminophen hydrocodone 10 mg-acetaminophen 325 mg tablet RxNorm: 505002 2 Tablet(s) PO scheduled TID and 1 tab q 4 as needed 01/04/2018 01/04/2018 Inactive Not to exceed 3gm/24hr acetaminophen cyanocobalamin (vit B-12) 1,000 mcg tablet RxNorm: 312411 1 Tablet(s) PO daily 12/28/2017 11/22/2018 Active baclofen 10 mg tablet RxNorm: 819353 Tablet(s) TAKE 1 TABLET THREE TIMES DAILY VIA STOMACH TUBE 12/27/2017 05/25/2018 Inactive 10/07/2017 5:36:15 PM 10/07/2017 5:36:13 PM N O T I C E Last quantity doesn't match original quantity Duragesic 75 mcg/hr transdermal patch RxNorm: 572334 1 Patch TD Q72H 12/22/2017 01/06/2018 Inactive fentanyl 100 mcg/hr transdermal patch RxNorm: 340428 1 Patch TD Q72H 12/22/2017 01/06/2018 Inactive hydrocodone 10 mg-acetaminophen 325 mg tablet RxNorm: 675455 2 Tablet(s) PO scheduled TID and 1 tab q 4 as needed 12/20/2017 01/03/2018 Inactive Not to exceed 3gm/24hr acetaminophen hyoscyamine 0.125 mg disintegrating tablet RxNorm: 8874344 1-2 Tablet(s) PO Q8 as needed 12/14/2017 02/07/2018 Inactive Duragesic 75 mcg/hr transdermal patch RxNorm: 885510 1 Patch TD Q72H 12/06/2017 12/21/2017 Inactive fentanyl 100 mcg/hr transdermal patch RxNorm: 346644 1 Patch TD Q72H 12/06/2017 12/21/2017 Inactive hydrocodone 10 mg-acetaminophen 325 mg tablet RxNorm: 203284 2 Tablet(s) PO scheduled TID and 1 tab q 4 as needed 11/29/2017 12/19/2017 Inactive Not to exceed 3gm/24hr acetaminophen Duragesic 75 mcg/hr transdermal patch RxNorm: 980177 1 Patch TD Q72H 11/11/2017 12/05/2017 Inactive hydrocodone 10 mg-acetaminophen 325 mg tablet RxNorm: 647269 2 Tablet(s) PO scheduled TID and 1 tab q 4 as needed 11/09/2017 11/28/2017 Inactive Not to exceed 3gm/24hr acetaminophen Levemir FlexTouch U-100 Insulin 100 unit/mL (3 mL) subcutaneous pen RxNorm: 390728 8 Unit(s) SQ QHS 11/09/2017 01/06/2018 Inactive fentanyl 100 mcg/hr transdermal patch RxNorm: 542246 1 Patch TD Q72H 2017 12/05/2017 Inactive hyoscyamine 0.125 mg disintegrating tablet RxNorm: 6647849 1-2 Tablet(s) PO Q8 as needed 11/03/2017 12/13/2017 Inactive carvedilol 3.125 mg tablet RxNorm: 332070 GIVE 1 TABLET VIA PEG TUBE 2 TIMES A DAY 10/22/2017 01/19/2018 Inactive Generic For:COREG 3.125MG 10/22/2017 9:23:30 AM hydrocodone 10 mg-acetaminophen 325 mg tablet RxNorm: 973255 2 Tablet(s) PO scheduled TID and 1 tab q 4 as needed 10/22/2017 2017 Inactive Not to exceed 3gm/24hr acetaminophen fentanyl 100 mcg/hr transdermal patch RxNorm: 399737 1 Patch TD Q72H 10/20/2017 11/07/2017 Inactive Duragesic 75 mcg/hr transdermal patch RxNorm: 698237 1 Patch TD Q72H 10/20/2017 11/10/2017 Inactive lorazepam 0.5 mg tablet RxNorm: 454775 1 Tablet(s) PO BID and 1 tab q 6 hours prn 10/18/2017 No Stop Date Active baclofen 10 mg tablet RxNorm: 659763 TAKE 1 TABLET THREE TIMES DAILY VIA STOMACH TUBE 10/07/2017 12/26/2017 Inactive 10/07/2017 5:36:15 PM 10/07/2017 5:36:13 PM N O T I C E Last quantity doesn't match original quantity cranberry extract 500 mg tablet RxNorm: 3083439 1 Tablet(s) PO QAM 10/04/2017 01/31/2018 Inactive Cipro 500 mg tablet RxNorm: 334199 1 Tablet(s) PO BID 10/04/2017 10/03/2017 Inactive dc keflex hydrocodone 10 mg-acetaminophen 325 mg tablet RxNorm: 444507 2 Tablet(s) PO scheduled TID as needed 10/04/2017 10/21/2017 Inactive Not to exceed 3gm/24hr acetaminophen cranberry extract 500 mg tablet RxNorm: 3966675 1 Tablet(s) PO QAM 10/04/2017 10/03/2017 Inactive Cipro 500 mg tablet RxNorm: 458573 1 Tablet(s) PO BID 10/04/2017 10/10/2017 Inactive dc keflex Duragesic 75 mcg/hr transdermal patch RxNorm: 847991 1 Patch TD Q72H 09/20/2017 10/19/2017 Inactive fentanyl 100 mcg/hr transdermal patch RxNorm: 334816 1 Patch TD Q72H 09/20/2017 10/19/2017 Inactive hyoscyamine 0.125 mg disintegrating tablet RxNorm: 1391080 1 Tablet(s) PO TID and 1 Tablet Q4H prn increased secretions 09/15/2017 11/02/2017 Inactive hydrocodone 10 mg-acetaminophen 325 mg tablet RxNorm: 428386 2 Tablet(s) PO scheduled TID and 1-2 Tabs Q4H PRN pain 09/15/2017 10/03/2017 Inactive Not to exceed 3gm/24hr acetaminophen lorazepam 0.5 mg tablet RxNorm: 663409 1 Tablet(s) PO BID 09/15/2017 10/17/2017 Inactive Lexapro 10 mg tablet RxNorm: 049410 1 Tablet(s) PO daily 09/10/2017 09/14/2017 Inactive Levemir FlexTouch U-100 Insulin 100 unit/mL (3 mL) subcutaneous pen RxNorm: 353775 10 Unit(s) daily 09/09/2017 09/15/2017 Inactive lisinopril 10 mg tablet RxNorm: 649147 1 Tablet(s) PO daily 09/09/2017 05/16/2018 Inactive Duragesic 75 mcg/hr transdermal patch RxNorm: 924070 1 Patch TD Q72H 09/09/2017 09/19/2017 Inactive nystatin 100,000 unit/gram topical cream RxNorm: 801283 1 Gram(s) TOP TID until healed to gaulding 09/06/2017 01/03/2018 Inactive nystatin 100,000 unit/gram topical cream RxNorm: 654507 1 Gram(s) TOP TID until healed to gaulding 09/06/2017 09/05/2017 Inactive hydrocodone 10 mg-acetaminophen 325 mg tablet RxNorm: 986198 2 Tablet(s) PO scheduled TID as needed 08/31/2017 09/14/2017 Inactive Not to exceed 3gm/24hr acetaminophen fentanyl 100 mcg/hr transdermal patch RxNorm: 734177 1 Patch TD Q72H 08/24/2017 09/19/2017 Inactive fentanyl 50 mcg/hr transdermal patch RxNorm: 761621 1 Patch TD Q72H 08/24/2017 09/08/2017 Inactive fentanyl 25 mcg/hr transdermal patch RxNorm: 510937 1 Patch TD Q72H 08/24/2017 08/24/2017 Inactive hyoscyamine 0.125 mg disintegrating tablet RxNorm: 0607314 Tablet(s) 1-2 Tablet(s) PO Q8 as needed 08/23/2017 09/14/2017 Inactive hydrocodone 10 mg-acetaminophen 325 mg tablet RxNorm: 986965 1 Tablet(s) PO scheduled TID et Q6 hours as needed 08/18/2017 08/30/2017 Inactive Not to exceed 3gm/24hr acetaminophen hydrochlorothiazide 25 mg tablet RxNorm: 125471 GIVE 1 TABLET VIA PEG TUBE ONCE DAILY 08/17/2017 02/12/2018 Inactive Generic For:HYDRODIURIL 25 MG TABLET 08/17/2017 9:01:54 AM08/11/2017 10:12:00 AM lorazepam 0.5 mg tablet RxNorm: 494536 1/2 Tablet(s) PO BID 08/03/2017 09/14/2017 Inactive fentanyl 100 mcg/hr transdermal patch RxNorm: 821794 1 Patch TD Q72H 07/26/2017 08/23/2017 Inactive fentanyl 25 mcg/hr transdermal patch RxNorm: 353453 1 Patch TD Q72H 07/26/2017 08/23/2017 Inactive hydrocodone 10 mg-acetaminophen 325 mg tablet RxNorm: 487185 1 Tablet(s) PO scheduled TID et Q6 hours as needed 07/16/2017 08/14/2017 Inactive Not to exceed 3gm/24hr acetaminophen hyoscyamine 0.125 mg disintegrating tablet RxNorm: 8800606 Tablet(s) 1-2 Tablet(s) PO Q8 as needed 07/13/2017 08/01/2017 Inactive baclofen 10 mg tablet RxNorm: 150430 TAKE 1 TABLET THREE TIMES DAILY VIA STOMACH TUBE 07/12/2017 10/06/2017 Inactive 07/12/2017 9:04:08 AM N O T I C E Last quantity doesn't match original quantity lorazepam 0.5 mg tablet RxNorm: 463288 1/2 Tablet(s) PO BID 07/02/2017 08/02/2017 Inactive fentanyl 100 mcg/hr transdermal patch RxNorm: 207305 1 Patch TD Q72H 06/28/2017 07/25/2017 Inactive fentanyl 25 mcg/hr transdermal patch RxNorm: 630931 1 Patch TD Q72H 06/28/2017 07/25/2017 Inactive hyoscyamine 0.125 mg disintegrating tablet RxNorm: 5935210 Tablet(s) 1-2 Tablet(s) PO Q8 as needed 06/03/2017 06/22/2017 Inactive fentanyl 25 mcg/hr transdermal patch RxNorm: 638715 1 Patch TD Q72H 05/26/2017 06/24/2017 Inactive Levemir FlexTouch U-100 Insulin 100 unit/mL (3 mL) subcutaneous pen RxNorm: 210265 20 Unit(s) SQ BID 05/26/2017 09/08/2017 Inactive fentanyl 100 mcg/hr transdermal patch RxNorm: 283275 1 Patch TD Q72H 05/26/2017 06/24/2017 Inactive hydrocodone 10 mg-acetaminophen 325 mg tablet RxNorm: 419046 1 Tablet(s) PO scheduled BID et Q6 hours as needed 05/12/2017 05/11/2017 Inactive hydrocodone 10 mg-acetaminophen 325 mg tablet RxNorm: 989170 1 Tablet(s) PO scheduled TID et Q6 hours as needed 05/12/2017 06/10/2017 Inactive Not to exceed 3gm/24hr acetaminophen docusate sodium 100 mg tablet RxNorm: 0844841 1 Tablet(s) PO BID as needed if no bowel movement 05/10/2017 05/09/2017 Inactive lisinopril 20 mg tablet RxNorm: 344345 1 Tablet(s) PO daily 05/10/2017 09/08/2017 Inactive docusate sodium 100 mg tablet RxNorm: 7666993 1 Tablet(s) PO BID as needed if no bowel movement 05/10/2017 09/14/2017 Inactive fentanyl 25 mcg/hr transdermal patch RxNorm: 400110 1 Patch TD Q72H 05/03/2017 05/25/2017 Inactive lorazepam 0.5 mg tablet RxNorm: 759526 1/2 Tablet(s) PO BID 05/03/2017 07/01/2017 Inactive fentanyl 100 mcg/hr transdermal patch RxNorm: 836138 1 Patch TD Q72H 04/27/2017 05/25/2017 Inactive carvedilol 3.125 mg tablet RxNorm: 015045 Tablet(s) GIVE 1 TABLET VIA PEG TUBE DAILY 04/15/2017 10/21/2017 Inactive Levemir FlexTouch 100 unit/mL (3 mL) subcutaneous insulin pen RxNorm: 296299 10 Unit(s) SQ BID 04/15/2017 2017 Inactive hyoscyamine 0.125 mg disintegrating tablet RxNorm: 9066273 1-2 Tablet(s) PO Q8 as needed 04/14/2017 05/03/2017 Inactive hydrocodone 10 mg-acetaminophen 325 mg tablet RxNorm: 971066 1 Tablet(s) PO scheduled BID et Q6 hours as needed 04/13/2017 05/02/2017 Inactive baclofen 10 mg tablet RxNorm: 677161 TAKE 1 TABLET THREE TIMES DAILY VIA STOMACH TUBE 04/08/2017 05/22/2017 Inactive 04/08/2017 9:32:07 AM fentanyl 25 mcg/hr transdermal patch RxNorm: 492470 1 Patch TD Q72H 04/05/2017 05/02/2017 Inactive lidocaine 10 mg/mL (1 %) injection solution RxNorm: 6291136 1 Milliliter(s) Inj daily Mix with rocephin 03/31/2017 03/30/2017 Inactive Pt resides at [facility] lidocaine 10 mg/mL (1 %) injection solution RxNorm: 3511564 1 Milliliter(s) Inj daily Mix with rocephin 03/31/2017 04/06/2017 Inactive Pt resides at [facility] fentanyl 100 mcg/hr transdermal patch RxNorm: 648435 1 Patch TD Q72H 03/29/2017 04/26/2017 Inactive nystatin 100,000 unit/gram topical powder RxNorm: 302917 APPLY UNDER BREASTS TWICE DAILY FOR YEAST SKIN INFECTION AND APPLY TO UNDERARM AND ABDOMINAL FOLDS AND PERIAREA TWICE DAILY 03/29/2017 03/28/2017 Inactive 03/27/2017 9:12:50 AM nystatin 100,000 unit/gram topical powder RxNorm: 540461 APPLY UNDER BREASTS TWICE DAILY FOR YEAST SKIN INFECTION AND APPLY TO UNDERARM AND ABDOMINAL FOLDS AND PERIAREA TWICE DAILY 03/29/2017 09/14/2017 Inactive 03/29/2017 9:42:55 AM03/27/2017 9:12:50 AM hyoscyamine 0.125 mg disintegrating tablet RxNorm: 6624467 1-2 Tablet(s) PO Q8 as needed 03/08/2017 03/27/2017 Inactive fentanyl 25 mcg/hr transdermal patch RxNorm: 097135 1 Patch TD Q72H 03/02/2017 03/31/2017 Inactive hydrocodone 10 mg-acetaminophen 325 mg tablet RxNorm: 415696 1 Tablet(s) PO scheduled BID et Q6 hours as needed 02/17/2017 03/18/2017 Inactive fentanyl 100 mcg/hr transdermal patch RxNorm: 934708 1 Patch TD Q72H 02/17/2017 03/18/2017 Inactive Lexapro 10 mg tablet RxNorm: 314911 1 Tablet(s) PO daily 02/05/2017 04/14/2017 Inactive Lexapro 10 mg tablet RxNorm: 155463 1 Tablet(s) PO daily 02/05/2017 02/04/2017 Inactive fentanyl 25 mcg/hr transdermal patch RxNorm: 811803 1 Patch TD Q72H 02/04/2017 03/01/2017 Inactive cyanocobalamin (vit B-12) 1,000 mcg tablet RxNorm: 315380 1 Tablet(s) PO daily 01/18/2017 12/13/2017 Inactive hyoscyamine 0.125 mg disintegrating tablet RxNorm: 6167335 Tablet(s) 1-2 Tablet(s) PO Q8 as needed 01/18/2017 02/06/2017 Inactive baclofen 10 mg tablet RxNorm: 778072 TAKE 1 TABLET THREE TIMES DAILY VIA STOMACH TUBE 01/04/2017 02/17/2017 Inactive 01/04/2017 9:25:18 AM fentanyl 100 mcg/hr transdermal patch RxNorm: 856358 1 Patch TD Q72H 12/25/2016 01/23/2017 Inactive hydrochlorothiazide 25 mg tablet RxNorm: 721854 Tablet(s) GIVE 1 TABLET VIA PEG TUBE ONCE A DAY 12/14/2016 07/11/2017 Inactive fentanyl 100 mcg/hr transdermal patch RxNorm: 266417 1 Patch TD Q72H 11/25/2016 12/24/2016 Inactive hyoscyamine 0.125 mg disintegrating tablet RxNorm: 8596393 Tablet(s) 1-2 Tablet(s) PO Q8 as needed 11/25/2016 12/14/2016 Inactive nystatin 100,000 unit/gram topical powder RxNorm: 858964 APPLY UNDER BREASTS TWICE DAILY FOR YEAST SKIN INFECTION AND APPLY TO UNDERARM AND ABDOMINAL FOLDS AND PERIAREA TWICE DAILY 11/24/2016 01/22/2017 Inactive 11/24/2016 9:34:02 AM hydrocodone 10 mg-acetaminophen 325 mg tablet RxNorm: 876137 1 Tablet(s) PO scheduled BID et Q6 hours as needed 11/02/2016 12/01/2016 Inactive cyanocobalamin (vit B-12) 1,000 mcg tablet RxNorm: 837266 1 Tablet(s) PO daily 11/02/2016 01/17/2017 Inactive hyoscyamine 0.125 mg disintegrating tablet RxNorm: 1441247 1-2 Tablet(s) PO Q8 as needed 10/19/2016 11/24/2016 Inactive fentanyl 100 mcg/hr transdermal patch RxNorm: 268261 1 Patch TD Q72H 10/13/2016 11/11/2016 Inactive hydrocodone 10 mg-acetaminophen 325 mg tablet RxNorm: 126847 1 Tablet(s) PO scheduled BID et Q6 hours as needed 10/05/2016 11/01/2016 Inactive baclofen 10 mg tablet RxNorm: 771724 TAKE 1 TABLET THREE TIMES DAILY VIA STOMACH TUBE 10/01/2016 11/14/2016 Inactive 10/01/2016 9:24:37 AM carvedilol 3.125 mg tablet RxNorm: 191943 GIVE 1 TABLET VIA PEG TUBE 2 TIMES A DAY 09/30/2016 12/28/2016 Inactive Generic For:COREG 3.125MG 09/30/2016 1:12:28 PM09/25/2016 9:06:11 AM Probiotic Blend 2 million cell-50 mg capsule RxNorm: 1 Capsule(s) PO BID 09/17/2016 09/23/2016 Inactive Keflex 500 mg capsule RxNorm: 014360 1 Capsule(s) PO TID 09/17/2016 09/23/2016 Inactive hyoscyamine 0.125 mg/5 mL oral elixir RxNorm: 1170538 5 Milliliter(s) PO TID 09/08/2016 09/17/2016 Inactive hyoscyamine 0.125 mg/5 mL oral elixir RxNorm: 8690848 5 Milliliter(s) PO TID 09/08/2016 09/07/2016 Inactive hyoscyamine 0.125 mg disintegrating tablet RxNorm: 9377218 1-2 Tablet(s) PO Q8 as needed 09/07/2016 10/18/2016 Inactive fentanyl 100 mcg/hr transdermal patch RxNorm: 520149 1 Patch TD Q72H 09/01/2016 09/30/2016 Inactive ranitidine 150 mg tablet RxNorm: 326586 1 Tablet(s) PO BID 08/25/2016 No Stop Date Active hydrocodone 10 mg-acetaminophen 325 mg tablet RxNorm: 831673 1 Tablet(s) PO scheduled BID et Q6 hours as needed 08/24/2016 09/22/2016 Inactive cyanocobalamin (vit B-12) 1,000 mcg tablet RxNorm: 890874 1 Tablet(s) PO daily 08/12/2016 11/01/2016 Inactive cyanocobalamin (vit B-12) 1,000 mcg tablet RxNorm: 241667 1 Tablet(s) PO daily 08/12/2016 08/11/2016 Inactive hydrocodone 10 mg-acetaminophen 325 mg tablet RxNorm: 233649 1-2 Tablet(s) PO Q6 as needed 08/03/2016 08/17/2016 Inactive fentanyl 100 mcg/hr transdermal patch RxNorm: 973902 1 Patch TD Q72H 08/03/2016 08/31/2016 Inactive nystatin 100,000 unit/gram topical powder RxNorm: 178210 APPLY UNDER BREASTS TWICE DAILY FOR YEAST SKIN INFECTION AND APPLY TO UNDERARM AND ABDOMINAL FOLDS AND PERIAREA TWICE DAILY 07/17/2016 09/14/2016 Inactive 07/17/2016 3:56:54 PM fentanyl 100 mcg/hr transdermal patch RxNorm: 266702 1 Patch TD Q72H 07/15/2016 08/02/2016 Inactive lisinopril 20 mg tablet RxNorm: 338154 1 Tablet(s) PO daily 07/02/2016 03/28/2017 Inactive hydrocodone 10 mg-acetaminophen 325 mg tablet RxNorm: 384361 1-2 Tablet(s) PO Q6 as needed 07/01/2016 07/15/2016 Inactive Xarelto 20 mg tablet RxNorm: 2489490 Tablet(s) TAKE 1 TABLET VIA PEG TUBE AT BEDTIME 06/19/2016 04/14/2017 Inactive fentanyl 100 mcg/hr transdermal patch RxNorm: 602827 1 Patch TD Q72H 06/17/2016 07/14/2016 Inactive nystatin 100,000 unit/gram topical powder RxNorm: 389601 APPLY TO UNDER BREASTS TWICE DAILY FOR YEAST SKIN INFECTION AND APPLY TO UNDERARM AND ABDOMINAL FOLDS AND PERIAREA TWICE DAILY 06/15/2016 07/16/2016 Inactive Generic For:MYCOSTATIN 100,000 UNITS/GM PW 06/15/2016 12:28:26 PM fentanyl 100 mcg/hr transdermal patch RxNorm: 479420 1 Patch TD Q72H 06/05/2016 06/16/2016 Inactive hydrocodone 10 mg-acetaminophen 325 mg tablet RxNorm: 436092 1-2 Tablet(s) PO Q6 as needed 06/02/2016 06/16/2016 Inactive Probiotic Blend 2 million cell-50 mg capsule RxNorm: 1 Capsule(s) PO BID 05/13/2016 05/19/2016 Inactive nitrofurantoin 100 mg capsule RxNorm: 351071 1 Capsule(s) PO BID 05/13/2016 05/19/2016 Inactive nitrofurantoin 100 mg capsule RxNorm: 042892 1 Capsule(s) PO BID 05/13/2016 05/12/2016 Inactive fentanyl 75 mcg/hr transdermal patch RxNorm: 254333 1 Patch TD Q72H 05/13/2016 06/04/2016 Inactive Keflex 500 mg capsule RxNorm: 054300 1 Capsule(s) PO TID 05/07/2016 05/13/2016 Inactive Patient at [facility] Keflex 500 mg capsule RxNorm: 085183 1 Capsule(s) PO TID 05/07/2016 05/06/2016 Inactive hydrocodone 10 mg-acetaminophen 325 mg tablet RxNorm: 494685 1-2 Tablet(s) PO Q6 as needed 05/04/2016 06/01/2016 Inactive hydrochlorothiazide 25 mg tablet RxNorm: 976281 Tablet(s) GIVE 1 TABLET VIA PEG TUBE ONCE A DAY 04/29/2016 11/24/2016 Inactive hydrochlorothiazide 25 mg tablet RxNorm: 814289 GIVE 1 TABLET VIA PEG TUBE ONCE A DAY 04/22/2016 04/28/2016 Inactive Generic For:HYDRODIURIL 25 MG TABLET refill request fentanyl 75 mcg/hr transdermal patch RxNorm: 576145 1 Patch TD Q72H 04/17/2016 05/12/2016 Inactive Xarelto 20 mg tablet RxNorm: 6526036 TAKE 1 TABLET VIA PEG TUBE AT BEDTIME 04/16/2016 06/14/2016 Inactive 04/16/2016 9:08:52 AM citalopram 40 mg tablet RxNorm: 965987 1 Tablet(s) PO daily 04/02/2016 02/25/2017 Inactive citalopram 40 mg tablet RxNorm: 971438 1 Tablet(s) PO daily 03/27/2016 04/01/2016 Inactive hydrocodone 10 mg-acetaminophen 325 mg tablet RxNorm: 552596 1-2 Tablet(s) PO Q6 as needed 03/27/2016 04/25/2016 Inactive fentanyl 75 mcg/hr transdermal patch RxNorm: 694215 1 Patch TD Q72H 03/18/2016 04/16/2016 Inactive hydrocodone 10 mg-acetaminophen 325 mg tablet RxNorm: 491699 1-2 Tablet(s) PO Q6 as needed 03/11/2016 03/26/2016 Inactive citalopram 40 mg tablet RxNorm: 169878 1 Tablet(s) PO daily 03/04/2016 03/26/2016 Inactive Levemir FlexTouch U-100 Insulin 100 unit/mL (3 mL) subcutaneous pen RxNorm: 379704 20 Unit(s) SQ BID 03/02/2016 09/27/2016 Inactive lisinopril 20 mg tablet RxNorm: 509226 1 Tablet(s) PO daily 02/25/2016 07/01/2016 Inactive Ativan 0.5 mg tablet RxNorm: 023309 1 Tablet(s) PO Q4H as needed 02/18/2016 04/14/2017 Inactive Xarelto 20 mg tablet RxNorm: 2616914 TAKE 1 TABLET VIA PEG TUBE AT BEDTIME 02/12/2016 04/11/2016 Inactive 02/12/2016 9:08:22 AM hydrocodone 10 mg-acetaminophen 325 mg tablet RxNorm: 482956 1-2 Tablet(s) PO Q6 as needed 02/12/2016 03/10/2016 Inactive fentanyl 75 mcg/hr transdermal patch RxNorm: 095075 1 Patch TD Q72H 02/11/2016 03/11/2016 Inactive citalopram 20 mg tablet RxNorm: 273369 1 Tablet(s) PO daily 01/28/2016 03/03/2016 Inactive fentanyl 75 mcg/hr transdermal patch RxNorm: 115584 1 TD Q72H 01/17/2016 02/10/2016 Inactive hydrocodone 10 mg-acetaminophen 325 mg tablet RxNorm: 721190 1-2 Tablet(s) PO Q6 as needed 01/07/2016 02/05/2016 Inactive fentanyl 50 mcg/hr transdermal patch RxNorm: 408775 1 TD Q72H 01/01/2016 01/16/2016 Inactive fentanyl 50 mcg/hr transdermal patch RxNorm: 294545 1 TD q 3 days 12/26/2015 12/31/2015 Inactive Xarelto 20 mg tablet RxNorm: 7977988 TAKE 1 TABLET VIA PEG TUBE AT BEDTIME 12/17/2015 02/11/2016 Inactive 12/16/2015 3:27:57 PM12/14/2015 9:45:17 AM hydrocodone 10 mg-acetaminophen 325 mg tablet RxNorm: 686438 1-2 Tablet(s) PO Q6 as needed 12/06/2015 01/04/2016 Inactive fentanyl 50 mcg/hr transdermal patch RxNorm: 804118 1 TD q 3 days 12/06/2015 12/25/2015 Inactive fentanyl 25 mcg/hr transdermal patch RxNorm: 527611 1 TD q 3 days 11/18/2015 12/05/2015 Inactive Zithromax Z-Eliu 250 mg tablet RxNorm: 652382 1 Tablet(s) PO UD 10/09/2015 02/26/2016 Inactive z pack as directed- please write out instructions- pt at [facility] nystatin 100,000 unit/gram topical powder RxNorm: 327139 APPLY TO UNDER BREASTS TWICE DAILY FOR YEAST SKIN INFECTION AND APPLY TO UNDERARM AND ABDOMINAL FOLDS AND PERIAREA TWICE DAILY 10/07/2015 12/05/2015 Inactive Generic For:MYCOSTATIN 100,000 UNITS/GM PW 10/05/2015 12:07:35 PM fentanyl 25 mcg/hr transdermal patch RxNorm: 288673 1 TD q 3 days 10/03/2015 11/01/2015 Inactive fentanyl 25 mcg/hr transdermal patch RxNorm: 472488 1 TD q 3 days 09/27/2015 10/02/2015 Inactive fentanyl 25 mcg/hr transdermal patch RxNorm: 583578 1 TD q 3 days 09/17/2015 09/26/2015 Inactive fentanyl 25 mcg/hr transdermal patch RxNorm: 677523 1 TD q 3 days 08/30/2015 09/16/2015 Inactive hydrocodone 5 mg-acetaminophen 325 mg tablet RxNorm: 217597 1 Tablet(s) PO Q6 as needed 08/30/2015 09/28/2015 Inactive Diflucan 100 mg tablet RxNorm: 991043 1 Tablet(s) Miscellaneous per peg daily 07/29/2015 08/04/2015 Inactive fentanyl 25 mcg/hr transdermal patch RxNorm: 697849 1 TD q 3 days 07/18/2015 08/29/2015 Inactive hydrocodone 5 mg-acetaminophen 325 mg tablet RxNorm: 817441 1 Tablet(s) PO Q6 as needed 07/18/2015 08/29/2015 Inactive Diflucan 100 mg tablet RxNorm: 566962 1 Tablet(s) Miscellaneous per peg daily 06/17/2015 06/23/2015 Inactive Senna-S 8.6 mg-50 mg tablet RxNorm: 280137 1 Tablet(s) PO daily as needed constipation No Start Date Active Dulcolax (bisacodyl) 10 mg rectal suppository RxNorm: 618599 1 Suppository RTL daily as needed constipation No Start Date Active polyethylene glycol 3350 17 gram/dose oral powder RxNorm: 703379 17 Gram(s) PO daily as needed constipation No Start Date Active baclofen 10 mg tablet RxNorm: 061039 1 Tablet(s) PO TID No Start Date 09/30/2016 Inactive Ativan 0.5 mg tablet RxNorm: 688256 1 Tablet(s) PO Q4H as needed No Start Date 02/17/2016 Inactive ranitidine 150 mg tablet RxNorm: 756042 1 Tablet(s) PO daily No Start Date 08/24/2016 Inactive carvedilol 3.125 mg tablet RxNorm: 532544 1 Tablet(s) PO daily No Start Date 09/29/2016 Inactive citalopram 40 mg tablet RxNorm: 594479 1 Tablet(s) PO daily No Start Date 01/27/2016 Inactive Probiotic Blend oral RxNorm: oral No Start Date 05/12/2016 Inactive hydrochlorothiazide 25 mg tablet RxNorm: 061389 1 Tablet(s) PO daily No Start Date 04/21/2016 Inactive albuterol sulfate concentrate 5 mg/mL(0.5 %) solution for nebulization RxNorm: 647516 1 Vial INH daily as needed congestion No Start Date 03/17/2018 Inactive Levemir FlexTouch 100 unit/mL (3 mL) subcutaneous insulin pen RxNorm: 569128 10 Unit(s) SQ BID No Start Date 03/01/2016 Inactive Zithromax Z-Eliu 250 mg tablet RxNorm: 937833 1 Tablet(s) PO UD No Start Date 10/08/2015 Inactive z pack as directed- please write out instructions- pt at [facility] nystatin 100,000 unit/gram topical powder RxNorm: 033455 Gram(s) TOP BID as needed No Start Date 10/06/2015 Inactive pravastatin 40 mg tablet RxNorm: 245215 Tablet(s) PO daily No Start Date 04/14/2017 Inactive lorazepam 0.5 mg tablet RxNorm: 629877 1/2 Tablet(s) PO BID No Start Date 05/02/2017 Inactive Xarelto 20 mg tablet RxNorm: 4857895 1 Tablet(s) PO daily No Start Date 12/16/2015 Inactive fentanyl 25 mcg/hr transdermal patch RxNorm: 909188 1 TD q 3 days No Start Date 07/17/2015 Inactive lisinopril 20 mg tablet RxNorm: 717636 1 Tablet(s) PO daily No Start Date 02/24/2016 Inactive hydrocodone 5 mg-acetaminophen 325 mg tablet RxNorm: 724171 1 Tablet(s) PO Q6 as needed No Start Date 07/17/2015 Inactive citalopram 40 mg tablet RxNorm: 326549 1 Tablet(s) PO daily No Start Date 03/03/2016 Inactive hyoscyamine 0.125 mg disintegrating tablet RxNorm: 7385506 1-2 Tablet(s) PO Q8 as needed No [...] Code Item Item Code Result Date %Hba1C Nvg970 % HbA1c 49307- 6 5.5 % 05/18/2018 %Hba1C Njp301 Gluc Ave 111 mg/dL 05/18/2018 Cbc With [...] 32.3 pg 05/18/2018 Cbc With Differential Ord2 Wilcox% 4.9 % 05/18/2018 Cbc With Differential Ord2 [...] 1.81 K/ul 05/18/2018 Cbc With Differential Ord2 Wilcox ABS# 0.4 K/ul 05/18/2018 Cbc With Differential Ord2 Eos ABS# 0.6 K/ul 05/18/2018 Cbc With Differential Ord2 Baso ABS# 0.0 K/ul 05/18/2018 Tsh Ord6 TSH (3rd IS) 0.85 uIU/mL 05/18/2018 Comp Metabolic Gin346 NA 137 mEq/L 05/18/2018 Comp Metabolic Hqd495 K 4.2 mEq/L 05/18/2018 Comp Metabolic Bca021 CL 97 mEq/L 05/18/2018 Comp Metabolic Ktj280 CO2 34.0 mEq/L 05/18/2018 Comp Metabolic Fpd889 ANION GAP 10 05/18/2018 Comp Metabolic Yyc333 GLUCOSE 177 mg/dL 05/18/2018 Comp Metabolic Sph317 Creat 0.5 mg/dL 05/18/2018 Comp Metabolic Elj695 eGFR 122 ml/min/1.73m2 05/18/2018 Comp Metabolic Dht948 BUN 23 mg/dL 05/18/2018 Comp Metabolic Abi161 B/C Ratio 43.4 Ratio 05/18/2018 Comp Metabolic Mny970 CALCIUM 9.2 mg/dL 05/18/2018 Comp Metabolic Gcx115 ALK PHOS 86 U/L 05/18/2018 Comp Metabolic Okh474 AST(SGOT) 14 U/L 05/18/2018 Comp Metabolic Cwd561 ALT(SGPT) 9 U/L 05/18/2018 Comp Metabolic Ano788 BILI T 0.3 mg/dL 05/18/2018 Comp Metabolic Jma817 ALBUMIN 3.7 g/dL 05/18/2018 Comp Metabolic Cny567 TPRO 6.2 g/dL 05/18/2018 Comp Metabolic Rue175 GLOB 2.6 g/dL 05/18/2018 Comp Metabolic Ysd647 A/G Ratio 1.4 Ratio 05/18/2018 Comp Metabolic Zgc180 Osmo 282 mOsmo 05/18/2018 A1C Frequency Giy665 A1CF 86527-0 Last A1C performed [place] [facility] [place]: 02-14-2018 05/10/2018 Cbc With Differential [...] 30.7 pg 02/14/2018 Cbc With Differential Ord2 Wilcox% 7.4 % 02/14/2018 Cbc With Differential Ord2 [...] 2.14 K/ul 02/14/2018 Cbc With Differential Ord2 Wilcox ABS# 0.5 K/ul 02/14/2018 Cbc With Differential Ord2 Eos ABS# 0.3 K/ul 02/14/2018 Cbc With Differential Ord2 Baso ABS# 0.0 K/ul 02/14/2018 Comp Metabolic Hkx333 NA 142 mEq/L 02/14/2018 Comp Metabolic Ncj626 K 4.5 mEq/L 02/14/2018 Comp Metabolic Odm504 CL 97 mEq/L 02/14/2018 Comp Metabolic Izh686 CO2 41.0 mEq/L 02/14/2018 Comp Metabolic Idp236 ANION GAP 9 02/14/2018 Comp Metabolic Nnt763 GLUCOSE 111 mg/dL 02/14/2018 Comp Metabolic Vil204 Creat 0.6 mg/dL 02/14/2018 Comp Metabolic Hsk776 eGFR 108 ml/min/1.73m2 02/14/2018 Comp Metabolic Tnt058 BUN 32 mg/dL 02/14/2018 Comp Metabolic Msn733 B/C Ratio 54.2 Ratio 02/14/2018 Comp Metabolic Zpy482 CALCIUM 8.9 mg/dL 02/14/2018 Comp Metabolic Lde411 ALK PHOS 81 U/L 02/14/2018 Comp Metabolic Wgs560 AST(SGOT) 14 U/L 02/14/2018 Comp Metabolic Shs356 ALT(SGPT) 11 U/L 02/14/2018 Comp Metabolic Swg360 BILI T 0.3 mg/dL 02/14/2018 Comp Metabolic Sfl959 ALBUMIN 3.4 g/dL 02/14/2018 Comp Metabolic Utp747 TPRO 6.3 g/dL 02/14/2018 Comp Metabolic Znc207 GLOB 2.9 g/dL 02/14/2018 Comp Metabolic Fnh665 A/G Ratio 1.2 Ratio 02/14/2018 Comp Metabolic Lll982 Osmo 291 mOsmo 02/14/2018 %Hba1C Rht674 % HbA1c 36840- 6 5.5 % 02/14/2018 %Hba1C Ezh296 Gluc Ave 111 mg/dL 02/14/2018 Prealbumin 955470 PREALBUMIN 27 mg/dL 11/24/2017 %Hba1C Owb244 % HbA1c 38308- 6 5.5 % 11/04/2017 %Hba1C Fmj777 Gluc Ave 111 mg/dL 11/04/2017 Culture Urine [id number] URINE CULTURE SEE NOTES 10/04/2017 Culture Urine [id number] Continued Results 10/04/2017 Urine Culture Ucult Complete [...] Ord28 U-Com Culture to follow 10/01/2017 B12 Fre194 B12 >1500.00 pg/ml 02/19/2017 Cbc With Differential [...] 31.5 pg 02/02/2017 Cbc With Differential Ord2 Wilcox% 8.3 % 02/02/2017 Cbc With Differential Ord2 [...] 2.28 K/ul 02/02/2017 Cbc With Differential Ord2 Wilcox ABS# 0.6 K/ul 02/02/2017 Cbc With Differential Ord2 Eos ABS# 0.4 K/ul 02/02/2017 Cbc With Differential Ord2 Baso ABS# 0.0 K/ul 02/02/2017 %Hba1C Jxg147 % HbA1c 73576- 6 5.2 % 02/02/2017 %Hba1C Yxm676 Gluc Ave 103 mg/dL 02/02/2017 Comp Metabolic Udd760 NA 138 mEq/L 02/02/2017 Comp Metabolic Hfz212 K 4.5 mEq/L 02/02/2017 Comp Metabolic Cwi906 CL 98 mEq/L 02/02/2017 Comp Metabolic Bvw008 CO2 37.0 mEq/L 02/02/2017 Comp Metabolic Tav201 ANION GAP 8 02/02/2017 Comp Metabolic Hjh260 GLUCOSE 94 mg/dL 02/02/2017 Comp Metabolic Psa235 Creat 0.7 mg/dL 02/02/2017 Comp Metabolic Kvr818 eGFR 88 ml/min/1.73m2 02/02/2017 Comp Metabolic Mvm509 BUN 36 mg/dL 02/02/2017 Comp Metabolic Quu021 B/C Ratio 50.7 Ratio 02/02/2017 Comp Metabolic Fov250 CALCIUM 9.0 mg/dL 02/02/2017 Comp Metabolic Qds308 ALK PHOS 78 U/L 02/02/2017 Comp Metabolic Pzm213 AST(SGOT) 22 U/L 02/02/2017 Comp Metabolic Yqo317 ALT(SGPT) 28 U/L 02/02/2017 Comp Metabolic Adr567 BILI T 0.3 mg/dL 02/02/2017 Comp Metabolic Syq940 ALBUMIN 3.3 g/dL 02/02/2017 Comp Metabolic Jtg478 TPRO 5.9 g/dL 02/02/2017 Comp Metabolic Lwd785 GLOB 2.6 g/dL 02/02/2017 Comp Metabolic Moa788 A/G Ratio 1.3 Ratio 02/02/2017 Comp Metabolic Waq456 Osmo 284 mOsmo 02/02/2017 %Hba1C Glv266 % HbA1c 65337- 6 5.0 % 10/29/2016 %Hba1C Ndx993 Gluc Ave 97 mg/dL 10/29/2016 Culture Urine [id number] URINE CULTURE SEE NOTES 09/21/2016 Culture Urine [id number] Continued Results 09/21/2016 Urine Culture Ucult Complete [...] 32.4 pg 07/30/2016 Cbc With Differential Ord2 Wilcox% 7.2 % 07/30/2016 Cbc With Differential Ord2 [...] 2.69 K/ul 07/30/2016 Cbc With Differential Ord2 Wilcox ABS# 0.5 K/ul 07/30/2016 Cbc With Differential Ord2 Eos ABS# 0.5 K/ul 07/30/2016 Cbc With Differential Ord2 Baso ABS# 0.0 K/ul 07/30/2016 Comp Metabolic Qgc798 NA 141 mEq/L 07/30/2016 Comp Metabolic Ydh951 K 4.3 mEq/L 07/30/2016 Comp Metabolic Hsf593 CL 100 mEq/L 07/30/2016 Comp Metabolic Nvw067 CO2 33.0 mEq/L 07/30/2016 Comp Metabolic Ftr177 ANION GAP 12 07/30/2016 Comp Metabolic Fhc088 GLUCOSE 64 mg/dL 07/30/2016 Comp Metabolic Nsy395 Creat 0.5 mg/dL 07/30/2016 Comp Metabolic Vit914 eGFR 126 ml/min/1.73m2 07/30/2016 Comp Metabolic Jnb379 BUN 25 mg/dL 07/30/2016 Comp Metabolic Ksw289 B/C Ratio 48.1 Ratio 07/30/2016 Comp Metabolic Nwk646 CALCIUM 8.9 mg/dL 07/30/2016 Comp Metabolic Qpl283 ALK PHOS 90 U/L 07/30/2016 Comp Metabolic Jfy336 AST(SGOT) 22 U/L 07/30/2016 Comp Metabolic Qva089 ALT(SGPT) 36 U/L 07/30/2016 Comp Metabolic Phw991 BILI T 0.3 mg/dL 07/30/2016 Comp Metabolic Ceo990 ALBUMIN 3.4 g/dL 07/30/2016 Comp Metabolic Dja568 TPRO 6.0 g/dL 07/30/2016 Comp Metabolic Fny767 GLOB 2.7 g/dL 07/30/2016 Comp Metabolic Sur316 A/G Ratio 1.3 Ratio 07/30/2016 Comp Metabolic Xby473 Osmo 284 mOsmo 07/30/2016 A1C Frequency Cpy216 A1CF 57186-2 Last A1C performed [place] [facility] [place]: 05-12-2016 07/30/2016 %Hba1C Nxh716 % HbA1c 87779- 6 5.2 % 05/12/2016 %Hba1C Nrh099 Gluc Ave 103 mg/dL 05/12/2016 Culture Urine [id number] URINE CULTURE SEE NOTES 05/11/2016 Urine Culture [...] U-Com Culture to follow 05/06/2016 Culture Urine [id number] URINE CULTURE SEE NOTES 03/17/2016 Culture Urine [id number] Continued Results 03/17/2016 Urine Culture Ucult Complete [...] 32.0 pg 02/11/2016 Cbc With Differential Ord2 Wilcox% 9.1 % 02/11/2016 Cbc With Differential Ord2 [...] 2.59 K/ul 02/11/2016 Cbc With Differential Ord2 Wilcox ABS# 0.6 K/ul 02/11/2016 Cbc With Differential Ord2 Eos ABS# 0.3 K/ul 02/11/2016 Cbc With Differential Ord2 Baso ABS# 0.0 K/ul 02/11/2016 Comp Metabolic Wsy892 NA 137 mEq/L 02/11/2016 Comp Metabolic Lhs367 K 4.4 mEq/L 02/11/2016 Comp Metabolic Uxg626 CL 100 mEq/L 02/11/2016 Comp Metabolic Zve443 CO2 25.0 mEq/L 02/11/2016 Comp Metabolic Raz019 ANION GAP 16 02/11/2016 Comp Metabolic Kkq976 GLUCOSE 99 mg/dL 02/11/2016 Comp Metabolic Izi996 Creat 0.6 mg/dL 02/11/2016 Comp Metabolic Gxs394 eGFR 99 ml/min/1.73m2 02/11/2016 Comp Metabolic Dgh342 BUN 27 mg/dL 02/11/2016 Comp Metabolic Whb036 B/C Ratio 42.2 Ratio 02/11/2016 Comp Metabolic Iyf539 CALCIUM 9.2 mg/dL 02/11/2016 Comp Metabolic Sto024 ALK PHOS 74 U/L 02/11/2016 Comp Metabolic Cqr329 AST(SGOT) 24 U/L 02/11/2016 Comp Metabolic Mic513 ALT(SGPT) 26 U/L 02/11/2016 Comp Metabolic Aqg990 BILI T 0.5 mg/dL 02/11/2016 Comp Metabolic Fdu591 ALBUMIN 3.5 g/dL 02/11/2016 Comp Metabolic Gzm203 TPRO 6.2 g/dL 02/11/2016 Comp Metabolic Uao866 GLOB 2.7 g/dL 02/11/2016 Comp Metabolic Urt152 A/G Ratio 1.3 Ratio 02/11/2016 Comp Metabolic Ftt819 Osmo 279 mOsmo 02/11/2016 Review of Systems [...] 1: 128/86 Code: 8480-6 BMI: 31.4 Code: 53401-8 Heart Rate 1: 72 bpm Height: 5'1" Weight: 166 lbs 06/17/2015 Blood Pressure 1: 110/78 Code: 8480-6 BMI: 33.3 Code: 90800-8 Heart Rate 1: 74 bpm Height: 5'1" [...] data Encounters Encounter Performer Location Codes Date ([id number]) 23734 EST. PATIENT, LEVEL IV Diagnosis: Essential (primary) hypertension[ICD10: I10] Diagnosis: Chronic pain syndrome[ICD10: G89.4] Diagnosis: Type 2 diabetes mellitus without complications[ICD10: E11.9] Diagnosis: Dysphagia following cerebral infarction[ICD10: I69.391] Carlyn Everett MD, [facility] CPT-4: 65648 05/17/2018 ([id number]) 74797 EST. PATIENT, LEVEL IV Diagnosis: Cough[ICD10: R05] Diagnosis: Pneumonia, unspecified organism[ICD10: J18.9] Diagnosis: Pain in right knee[ICD10: M25.561] Carlyn Everett MD, [facility] CPT- 4: 50513 03/18/2018 ([id number]) 58896 EST. PATIENT, LEVEL IV Diagnosis: Type 2 diabetes mellitus without complications[ICD10: E11.9] Diagnosis: Essential (primary) hypertension[ICD10: I10] Diagnosis: Chronic pain syndrome[ICD10: G89.4] Carlyn Everett MD, [facility] CPT-4: 02118 01/07/2018 ([id number]) 52096 EST. PATIENT, LEVEL IV Diagnosis: Essential (primary) hypertension[ICD10: I10] Diagnosis: Type 2 diabetes mellitus without complications[ICD10: E11.9] Carlyn Everett MD, [facility] CPT-4: 51320 2017 ([id number]) 71847 EST. PATIENT, LEVEL IV Diagnosis: Type 2 diabetes mellitus with hyperglycemia[ICD10: E11.65] Diagnosis: Essential (primary) hypertension[ICD10: I10] Diagnosis: Pain in left shoulder[ICD10: M25.512] Diagnosis: Pain in right shoulder[ICD10: M25.511] Diagnosis: Pain in left knee[ICD10: M25.562] Diagnosis: Pain in right knee[ICD10: M25.561] Vonda Everett MD, [facility] CPT- 4: 22273 09/09/2017 53330 EST. PATIENT, LEVEL IV Diagnosis: Essential (primary) hypertension[ICD10: I10] Diagnosis: Type 2 diabetes mellitus with hyperglycemia[ICD10: E11.65] Diagnosis: Low back pain[ICD10: M54.5] Sunitha Everett MD, [facility] CPT-4: 51075 06/08/2017 ([id number]) 24611 EST. PATIENT, LEVEL IV Diagnosis: Essential (primary) hypertension[ICD10: I10] Diagnosis: Type 2 diabetes mellitus with hyperglycemia[ICD10: E11.65] Diagnosis: Low back pain[ICD10: M54.5] Sunitha Everett MD, [facility] CPT-4: 11443 04/15/2017 ([id number]) 33006 EST. PATIENT, LEVEL IV Diagnosis: Essential (primary) hypertension[ICD10: I10] Diagnosis: Type 2 diabetes mellitus with hyperglycemia[ICD10: E11.65] Diagnosis: Low back pain[ICD10: M54.5] Vonda Everett MD, [facility] CPT-4: 87062 02/16/2017 18421 EST. 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 05/17/2018 Appointment: Carlyn Higginbotham WPtel: [facility] [place] [phone] (15 min) Moderate 05/17/2018 Patient Education: Patient Medication Summary Completed 05/17/2018 Patient Education: Hypertension Completed 05/17/2018 Patient Education: Diabetes Completed 05/17/2018 Appointment: Carlyn Higginbotham WPtel: [phone] [place] (15 min) Moderate 04/07/2018 Visit Plan: Pneumonia - Pt has been diagnosed with pneumonia by physical exam. A chest xray has been ordered as have antibiotics. The pt is aware of the diagnosis and the need for acute treatment of this illness. Right knee pain -xray knee-rx for voltaren gel 03/18/2018 Appointment: Carlyn Higginbotham WPtel: [facility] [address] [place] (30 min) Complex 03/18/2018 Patient Education: Patient Medication Summary Completed 03/18/2018 Appointment: Carlyn Higginbotham WPtel: [phone] [place] (30 min) Complex 03/17/2018 Appointment: Carlyn Higginbotham WPtel: [phone] [place] (15 min) Moderate 03/10/2018 Appointment: Carlyn Higginbotham WPtel: [phone] [place] (15 min) Moderate 02/08/2018 Visit Plan: DM -decrease levemir to 4 units daily -monitor blood sugars IXW-laatxbxlje-hh changes Chronic pain -well controlled with fentanyl patch -no changes at this time 01/07/2018 Appointment: Carlyn Higginbotham WPtel: [address] [place], [place] [phone] [place] (15 min) Moderate 01/07/2018 Patient Education: [...] AT HS 2017 Appointment: Carlyn Higginbotham WPtel: [phone] [place] (15 min) Moderate [...] 175mcg. 09/09/2017 Appointment: [phone] [facility] (15 min) Moderate 09/09/2017 Patient Education: Patient [...] and PRN pain medications - will have usp fax over PRN medication administration record. 06/08/2017 Appointment: [phone] [facility] [place] (30 min) Complex 06/08/2017 Patient Education: [...] over-medication. 04/15/2017 Appointment: Sunith[facility] Patel [facility]Ptel[facility] [phone] [facility] (30 min) Complex 04/15/2017 Patient Education: Patient [...] today. 02/16/2017 Appointment: [facility] Everett [facility]el[facility] [phone] [facility] [place] (15 min) Moderate 02/16/2017 Patient Education: [...] concerns. 11/09/2016 Appointment: Sunitha Patel WPtel[facility] [phone] [facility] (30 min) Complex 11/09/2016 Patient Education: Patient Medication Summary Completed 11/09/2016 Care Plan: Referral Order SNOMED-CT : [id number] Pending 11/09/2016 Patient Education: Patient Medication Summary [...] Follow up weight in 1 month Neck pcvs-eaxpjatdqdf-Ktdf PT focus neck/upper body Right earache-cerumen removed with water pick today in the office 07/18/2015 Appointment: (30 min) Complex 07/18/2015 Patient Education: Patient Medication Summary Completed 07/18/2015 Patient Education: Obesity Completed 07/18/2015 Patient Education: .Cervicalgia Neck Pain Completed 07/18/2015 [phone] [facility] Ref[facility] Completed 06/25/2015 Visit Plan: Hypertension [...] normal liver response to medications. referral to [facility] physical [facility] occupational therapy for post stroke - left sided weakness, neck stiffness, upper extremity weakness Diabetes Mellitus - controlled - per family report - check labs this week, get report from [facility]. I spent over an hour with the patient in direct contact. 06/17/2015 Appointment: Vonda Everett [facility]Ptel[facility] [phone] [facility] New Patient 06/17/2015 Patient Education: Patient Medication Summary Completed 06/17/2015 Patient Education: Obesity Completed 06/17/2015 Patient Education: Hypertension Completed 06/17/2015 Care Plan: Referral Order SNOMED-CT : [id number] Ordered 06/17/2015 Referral: Jorge Luis Carroll Referral Initiated Referral: [facility] [phone] [facility] Referral Appointment Requested Instructions Comment . [...] normal liver response to medications. referral to [facility] for post stroke - left sided weakness, neck stiffness, upper extremity weakness Diabetes Mellitus - controlled - per family report - check labs this week, get report from and [facility]. I spent over an hour with the patient in direct contact. Add 1 scoop of whey protein from [facility] to 2 feedings per day . Hypertension [...] Follow up weight in 1 month Neck erwa-ixzcxgbrqrp-Gxoc PT focus neck/upper body Right earache-cerumen removed [...] of duragesic from 150mcg to 175mcg. . DM -decrease levemir to 4 units daily -monitor blood sugars DUO-vgfiixwqkd-vf changes Chronic pain -well controlled with fentanyl [...] well controlled with fentanyl patches-continue to monitor. voltaren gel right knee cefdinir zpack prednisone [...] and PRN pain medications - will have usp fax over PRN medication administration record. . [...]
--- OUTSIDE RECORDS SUMMARY | 2018-08-09 11:01 | XMS REPORT | CCD ---
Author Author [facility] Organization [facility] Address [address] [place] [address] Phone Care Team Providers Care Revenue Audit Clerk Name Role Phone PP Unavailable CCM Unavailable Summary Purpose Interface Exchange Insurance Providers Payer name Policy type / Coverage type Covered constitution party ID Effective Begin Date Effective End Date WPS Medicare Part B Medicare Part B [id number] Unknown Unknown [employer] Medicare Part B [id number] Unknown Unknown Family history Father Diagnosis Age At Onset Arthritis Unknown Hypertension Unknown Mother Diagnosis Age At Onset Diabetes mellitus Type 2 Unknown Depression Unknown Arthritis Unknown Stroke Unknown Hypertension Unknown Sister Diagnosis Age At Onset Colon cancer Unknown Social History Social History Element Codes Description Effective Dates Marital status Unknown Maurice 01/07/2018 Living arrangements Unknown Residential [facility] 04/15/2017 Number of children Unknown 3 06/17/2015 Employment Unknown Retired 06/17/[address]: 2331446 Quit over 10 years ago 15+ 06/17/[address]: 513413576 Never drinks alcohol 06/17/2015 Allergies, Adverse Reactions, [...] hydrocodone 10 mg-acetaminophen 325 mg tablet RxNorm: 222338 2 Tablet(s) PO scheduled TID 06/22/2018 07/06/2018 Active Not to exceed 3gm/24hr acetaminophen citalopram 40 mg tablet RxNorm: 476620 1 Tablet(s) PO daily 06/20/2018 05/15/2019 Active Voltaren 1 % topical gel RxNorm: 843642 APPLY 4 GRAMS TO RIGHT KNEE FOUR TIMES DAILY 06/13/2018 07/06/2018 Active Generic For:VOLTAREN GEL 1% 06/13/2018 10:59:02 AM hydrocodone 10 mg-acetaminophen 325 mg tablet RxNorm: 392248 2 Tablet(s) PO scheduled TID 06/07/2018 06/21/2018 Inactive Not to exceed 3gm/24hr acetaminophen fentanyl 100 mcg/hr transdermal patch RxNorm: 215698 1 Patch TD Q72H 06/03/2018 07/02/2018 Active Duragesic 75 mcg/hr transdermal patch RxNorm: 590480 1 Patch TD Q72H 06/03/2018 07/02/2018 Active hyoscyamine 0.125 mg disintegrating tablet RxNorm: 3456432 Tablet(s) Tablet(s) 1-2 Tablet(s) PO Q8 as needed 05/27/2018 No Stop Date Active lorazepam 0.5 mg tablet RxNorm: 997866 1 Tablet(s) PO BID and 1 tab q 6 hours prn 05/24/2018 No Stop Date Active hydrocodone 10 mg-acetaminophen 325 mg tablet RxNorm: 922239 2 Tablet(s) PO scheduled TID 05/24/2018 06/06/2018 Inactive Not to exceed 3gm/24hr acetaminophen citalopram 20 mg tablet RxNorm: 701625 1 Tablet(s) PO daily 05/17/2018 06/19/2018 Inactive hydrocodone 10 mg-acetaminophen 325 mg tablet RxNorm: 787127 2 Tablet(s) PO scheduled TID 04/19/2018 05/18/2018 Inactive Not to exceed 3gm/24hr acetaminophen lorazepam 0.5 mg tablet RxNorm: 631984 1 Tablet(s) PO BID and 1 tab q 6 hours prn 04/07/2018 05/23/2018 Inactive hyoscyamine 0.125 mg disintegrating tablet RxNorm: 7691524 Tablet(s) 1-2 Tablet(s) PO Q8 as needed 03/31/2018 05/26/2018 Inactive Duragesic 75 mcg/hr transdermal patch RxNorm: 430853 1 Patch TD Q72H 03/31/2018 04/29/2018 Inactive fentanyl 100 mcg/hr transdermal patch RxNorm: 217069 1 Patch TD Q72H 03/31/2018 04/29/2018 Inactive carvedilol 3.125 mg tablet RxNorm: 356023 Tablet(s) GIVE 1 TABLET VIA PEG TUBE 2 TIMES A DAY 03/30/2018 06/27/2018 Active Generic For:COREG 3.125MG 10/22/2017 9:23:30 AM Voltaren 1 % topical gel RxNorm: 775643 APPLY 4 GRAMS TO RIGHT KNEE FOUR TIMES DAILY 03/30/2018 04/22/2018 Inactive Generic For:VOLTAREN GEL 1% 03/30/2018 11:14:57 AM hydrocodone 10 mg-acetaminophen 325 mg tablet RxNorm: 638187 2 Tablet(s) PO scheduled TID 03/23/2018 04/18/2018 Inactive Not to exceed 3gm/24hr acetaminophen albuterol sulfate concentrate 5 mg/mL(0.5 %) solution for nebulization RxNorm: 668641 1 Vial Milliliter(s) INH TID PRN as needed congestion 03/18/2018 No Stop Date Active cefdinir 300 mg capsule RxNorm: 794414 1 Capsule(s) PO BID 03/18/2018 03/24/2018 Inactive Zithromax Z-Eliu 250 mg tablet RxNorm: 970860 Tablet(s) PO 03/18/2018 05/16/2018 Inactive Voltaren 1 % topical gel RxNorm: 204970 4 Gram(s) TOP QID 03/18/2018 03/29/2018 Inactive hydrochlorothiazide 25 mg tablet RxNorm: 623665 GIVE 1 TABLET VIA PEG TUBE ONCE DAILY 03/11/2018 09/06/2018 Active Generic For:HYDRODIURIL 25 MG TABLET 03/11/2018 9:15:32 AM fentanyl 100 mcg/hr transdermal patch RxNorm: 851989 1 Patch TD Q72H 03/02/2018 03/30/2018 Inactive Duragesic 75 mcg/hr transdermal patch RxNorm: 156115 1 Patch TD Q72H 03/02/2018 03/30/2018 Inactive hydrocodone 10 mg-acetaminophen 325 mg tablet RxNorm: 057756 2 Tablet(s) PO scheduled TID 02/18/2018 03/22/2018 Inactive Not to exceed 3gm/24hr acetaminophen hyoscyamine 0.125 mg disintegrating tablet RxNorm: 0586797 Tablet(s) 1-2 Tablet(s) PO Q8 as needed 02/08/2018 03/30/2018 Inactive fentanyl 100 mcg/hr transdermal patch RxNorm: 741222 1 Patch TD Q72H 02/04/2018 03/01/2018 Inactive hydrocodone 10 mg-acetaminophen 325 mg tablet RxNorm: 123376 2 Tablet(s) PO scheduled TID 02/04/2018 02/17/2018 Inactive Not to exceed 3gm/24hr acetaminophen Duragesic 75 mcg/hr transdermal patch RxNorm: 014157 1 Patch TD Q72H 02/04/2018 03/01/2018 Inactive Levemir FlexTouch U-100 Insulin 100 unit/mL (3 mL) subcutaneous pen RxNorm: 485375 4 Unit(s) SQ QHS 01/07/2018 No Stop Date Active Duragesic 75 mcg/hr transdermal patch RxNorm: 979694 1 Patch TD Q72H 01/07/2018 02/03/2018 Inactive fentanyl 100 mcg/hr transdermal patch RxNorm: 117162 1 Patch TD Q72H 01/07/2018 02/03/2018 Inactive hydrocodone 10 mg-acetaminophen 325 mg tablet RxNorm: 195098 2 Tablet(s) PO scheduled TID 01/05/2018 02/03/2018 Inactive Not to exceed 3gm/24hr acetaminophen hydrocodone 10 mg-acetaminophen 325 mg tablet RxNorm: 415997 2 Tablet(s) PO scheduled TID and 1 tab q 4 as needed 01/04/2018 01/04/2018 Inactive Not to exceed 3gm/24hr acetaminophen cyanocobalamin (vit B-12) 1,000 mcg tablet RxNorm: 547054 1 Tablet(s) PO daily 12/28/2017 11/22/2018 Active baclofen 10 mg tablet RxNorm: 836378 Tablet(s) TAKE 1 TABLET THREE TIMES DAILY VIA STOMACH TUBE 12/27/2017 05/25/2018 Inactive 10/07/2017 5:36:15 PM 10/07/2017 5:36:13 PM N O T I C E Last quantity doesn't match original quantity Duragesic 75 mcg/hr transdermal patch RxNorm: 568468 1 Patch TD Q72H 12/22/2017 01/06/2018 Inactive fentanyl 100 mcg/hr transdermal patch RxNorm: 612516 1 Patch TD Q72H 12/22/2017 01/06/2018 Inactive hydrocodone 10 mg-acetaminophen 325 mg tablet RxNorm: 384789 2 Tablet(s) PO scheduled TID and 1 tab q 4 as needed 12/20/2017 01/03/2018 Inactive Not to exceed 3gm/24hr acetaminophen hyoscyamine 0.125 mg disintegrating tablet RxNorm: 9397107 1-2 Tablet(s) PO Q8 as needed 12/14/2017 02/07/2018 Inactive Duragesic 75 mcg/hr transdermal patch RxNorm: 291845 1 Patch TD Q72H 12/06/2017 12/21/2017 Inactive fentanyl 100 mcg/hr transdermal patch RxNorm: 627298 1 Patch TD Q72H 12/06/2017 12/21/2017 Inactive hydrocodone 10 mg-acetaminophen 325 mg tablet RxNorm: 976351 2 Tablet(s) PO scheduled TID and 1 tab q 4 as needed 11/29/2017 12/19/2017 Inactive Not to exceed 3gm/24hr acetaminophen Duragesic 75 mcg/hr transdermal patch RxNorm: 511823 1 Patch TD Q72H 11/11/2017 12/05/2017 Inactive hydrocodone 10 mg-acetaminophen 325 mg tablet RxNorm: 196705 2 Tablet(s) PO scheduled TID and 1 tab q 4 as needed 11/09/2017 11/28/2017 Inactive Not to exceed 3gm/24hr acetaminophen Levemir FlexTouch U-100 Insulin 100 unit/mL (3 mL) subcutaneous pen RxNorm: 804589 8 Unit(s) SQ QHS 11/09/2017 01/06/2018 Inactive fentanyl 100 mcg/hr transdermal patch RxNorm: 759685 1 Patch TD Q72H 2017 12/05/2017 Inactive hyoscyamine 0.125 mg disintegrating tablet RxNorm: 8628869 1-2 Tablet(s) PO Q8 as needed 11/03/2017 12/13/2017 Inactive carvedilol 3.125 mg tablet RxNorm: 998723 GIVE 1 TABLET VIA PEG TUBE 2 TIMES A DAY 10/22/2017 01/19/2018 Inactive Generic For:COREG 3.125MG 10/22/2017 9:23:30 AM hydrocodone 10 mg-acetaminophen 325 mg tablet RxNorm: 045358 2 Tablet(s) PO scheduled TID and 1 tab q 4 as needed 10/22/2017 2017 Inactive Not to exceed 3gm/24hr acetaminophen fentanyl 100 mcg/hr transdermal patch RxNorm: 921386 1 Patch TD Q72H 10/20/2017 11/07/2017 Inactive Duragesic 75 mcg/hr transdermal patch RxNorm: 662368 1 Patch TD Q72H 10/20/2017 11/10/2017 Inactive lorazepam 0.5 mg tablet RxNorm: 088051 1 Tablet(s) PO BID and 1 tab q 6 hours prn 10/18/2017 No Stop Date Active baclofen 10 mg tablet RxNorm: 888450 TAKE 1 TABLET THREE TIMES DAILY VIA STOMACH TUBE 10/07/2017 12/26/2017 Inactive 10/07/2017 5:36:15 PM 10/07/2017 5:36:13 PM N O T I C E Last quantity doesn't match original quantity cranberry extract 500 mg tablet RxNorm: 4894688 1 Tablet(s) PO QAM 10/04/2017 01/31/2018 Inactive Cipro 500 mg tablet RxNorm: 450390 1 Tablet(s) PO BID 10/04/2017 10/03/2017 Inactive dc keflex hydrocodone 10 mg-acetaminophen 325 mg tablet RxNorm: 607708 2 Tablet(s) PO scheduled TID as needed 10/04/2017 10/21/2017 Inactive Not to exceed 3gm/24hr acetaminophen cranberry extract 500 mg tablet RxNorm: 7356086 1 Tablet(s) PO QAM 10/04/2017 10/03/2017 Inactive Cipro 500 mg tablet RxNorm: 915397 1 Tablet(s) PO BID 10/04/2017 10/10/2017 Inactive dc keflex Duragesic 75 mcg/hr transdermal patch RxNorm: 889083 1 Patch TD Q72H 09/20/2017 10/19/2017 Inactive fentanyl 100 mcg/hr transdermal patch RxNorm: 956940 1 Patch TD Q72H 09/20/2017 10/19/2017 Inactive hyoscyamine 0.125 mg disintegrating tablet RxNorm: 1251845 1 Tablet(s) PO TID and 1 Tablet Q4H prn increased secretions 09/15/2017 11/02/2017 Inactive hydrocodone 10 mg-acetaminophen 325 mg tablet RxNorm: 955649 2 Tablet(s) PO scheduled TID and 1-2 Tabs Q4H PRN pain 09/15/2017 10/03/2017 Inactive Not to exceed 3gm/24hr acetaminophen lorazepam 0.5 mg tablet RxNorm: 476014 1 Tablet(s) PO BID 09/15/2017 10/17/2017 Inactive Lexapro 10 mg tablet RxNorm: 423591 1 Tablet(s) PO daily 09/10/2017 09/14/2017 Inactive Levemir FlexTouch U-100 Insulin 100 unit/mL (3 mL) subcutaneous pen RxNorm: 189744 10 Unit(s) daily 09/09/2017 09/15/2017 Inactive lisinopril 10 mg tablet RxNorm: 654815 1 Tablet(s) PO daily 09/09/2017 05/16/2018 Inactive Duragesic 75 mcg/hr transdermal patch RxNorm: 956216 1 Patch TD Q72H 09/09/2017 09/19/2017 Inactive nystatin 100,000 unit/gram topical cream RxNorm: 715324 1 Gram(s) TOP TID until healed to gaulding 09/06/2017 01/03/2018 Inactive nystatin 100,000 unit/gram topical cream RxNorm: 511839 1 Gram(s) TOP TID until healed to gaulding 09/06/2017 09/05/2017 Inactive hydrocodone 10 mg-acetaminophen 325 mg tablet RxNorm: 192972 2 Tablet(s) PO scheduled TID as needed 08/31/2017 09/14/2017 Inactive Not to exceed 3gm/24hr acetaminophen fentanyl 100 mcg/hr transdermal patch RxNorm: 621426 1 Patch TD Q72H 08/24/2017 09/19/2017 Inactive fentanyl 50 mcg/hr transdermal patch RxNorm: 938194 1 Patch TD Q72H 08/24/2017 09/08/2017 Inactive fentanyl 25 mcg/hr transdermal patch RxNorm: 503674 1 Patch TD Q72H 08/24/2017 08/24/2017 Inactive hyoscyamine 0.125 mg disintegrating tablet RxNorm: 7054304 Tablet(s) 1-2 Tablet(s) PO Q8 as needed 08/23/2017 09/14/2017 Inactive hydrocodone 10 mg-acetaminophen 325 mg tablet RxNorm: 383061 1 Tablet(s) PO scheduled TID et Q6 hours as needed 08/18/2017 08/30/2017 Inactive Not to exceed 3gm/24hr acetaminophen hydrochlorothiazide 25 mg tablet RxNorm: 405409 GIVE 1 TABLET VIA PEG TUBE ONCE DAILY 08/17/2017 02/12/2018 Inactive Generic For:HYDRODIURIL 25 MG TABLET 08/17/2017 9:01:54 AM08/11/2017 10:12:00 AM lorazepam 0.5 mg tablet RxNorm: 195848 1/2 Tablet(s) PO BID 08/03/2017 09/14/2017 Inactive fentanyl 100 mcg/hr transdermal patch RxNorm: 302424 1 Patch TD Q72H 07/26/2017 08/23/2017 Inactive fentanyl 25 mcg/hr transdermal patch RxNorm: 251988 1 Patch TD Q72H 07/26/2017 08/23/2017 Inactive hydrocodone 10 mg-acetaminophen 325 mg tablet RxNorm: 300086 1 Tablet(s) PO scheduled TID et Q6 hours as needed 07/16/2017 08/14/2017 Inactive Not to exceed 3gm/24hr acetaminophen hyoscyamine 0.125 mg disintegrating tablet RxNorm: 3798652 Tablet(s) 1-2 Tablet(s) PO Q8 as needed 07/13/2017 08/01/2017 Inactive baclofen 10 mg tablet RxNorm: 537360 TAKE 1 TABLET THREE TIMES DAILY VIA STOMACH TUBE 07/12/2017 10/06/2017 Inactive 07/12/2017 9:04:08 AM N O T I C E Last quantity doesn't match original quantity lorazepam 0.5 mg tablet RxNorm: 809114 1/2 Tablet(s) PO BID 07/02/2017 08/02/2017 Inactive fentanyl 100 mcg/hr transdermal patch RxNorm: 712931 1 Patch TD Q72H 06/28/2017 07/25/2017 Inactive fentanyl 25 mcg/hr transdermal patch RxNorm: 131292 1 Patch TD Q72H 06/28/2017 07/25/2017 Inactive hyoscyamine 0.125 mg disintegrating tablet RxNorm: 8321437 Tablet(s) 1-2 Tablet(s) PO Q8 as needed 06/03/2017 06/22/2017 Inactive fentanyl 25 mcg/hr transdermal patch RxNorm: 846675 1 Patch TD Q72H 05/26/2017 06/24/2017 Inactive Levemir FlexTouch U-100 Insulin 100 unit/mL (3 mL) subcutaneous pen RxNorm: 294755 20 Unit(s) SQ BID 05/26/2017 09/08/2017 Inactive fentanyl 100 mcg/hr transdermal patch RxNorm: 487933 1 Patch TD Q72H 05/26/2017 06/24/2017 Inactive hydrocodone 10 mg-acetaminophen 325 mg tablet RxNorm: 224766 1 Tablet(s) PO scheduled BID et Q6 hours as needed 05/12/2017 05/11/2017 Inactive hydrocodone 10 mg-acetaminophen 325 mg tablet RxNorm: 622064 1 Tablet(s) PO scheduled TID et Q6 hours as needed 05/12/2017 06/10/2017 Inactive Not to exceed 3gm/24hr acetaminophen docusate sodium 100 mg tablet RxNorm: 5930871 1 Tablet(s) PO BID as needed if no bowel movement 05/10/2017 05/09/2017 Inactive lisinopril 20 mg tablet RxNorm: 727588 1 Tablet(s) PO daily 05/10/2017 09/08/2017 Inactive docusate sodium 100 mg tablet RxNorm: 0405475 1 Tablet(s) PO BID as needed if no bowel movement 05/10/2017 09/14/2017 Inactive fentanyl 25 mcg/hr transdermal patch RxNorm: 129390 1 Patch TD Q72H 05/03/2017 05/25/2017 Inactive lorazepam 0.5 mg tablet RxNorm: 463853 1/2 Tablet(s) PO BID 05/03/2017 07/01/2017 Inactive fentanyl 100 mcg/hr transdermal patch RxNorm: 529279 1 Patch TD Q72H 04/27/2017 05/25/2017 Inactive carvedilol 3.125 mg tablet RxNorm: 816846 Tablet(s) GIVE 1 TABLET VIA PEG TUBE DAILY 04/15/2017 10/21/2017 Inactive Levemir FlexTouch 100 unit/mL (3 mL) subcutaneous insulin pen RxNorm: 851700 10 Unit(s) SQ BID 04/15/2017 2017 Inactive hyoscyamine 0.125 mg disintegrating tablet RxNorm: 4007245 1-2 Tablet(s) PO Q8 as needed 04/14/2017 05/03/2017 Inactive hydrocodone 10 mg-acetaminophen 325 mg tablet RxNorm: 760768 1 Tablet(s) PO scheduled BID et Q6 hours as needed 04/13/2017 05/02/2017 Inactive baclofen 10 mg tablet RxNorm: 166019 TAKE 1 TABLET THREE TIMES DAILY VIA STOMACH TUBE 04/08/2017 05/22/2017 Inactive 04/08/2017 9:32:07 AM fentanyl 25 mcg/hr transdermal patch RxNorm: 944859 1 Patch TD Q72H 04/05/2017 05/02/2017 Inactive lidocaine 10 mg/mL (1 %) injection solution RxNorm: 6605958 1 Milliliter(s) Inj daily Mix with rocephin 03/31/2017 03/30/2017 Inactive Pt resides at [facility] lidocaine 10 mg/mL (1 %) injection solution RxNorm: 2411536 1 Milliliter(s) Inj daily Mix with rocephin 03/31/2017 04/06/2017 Inactive Pt resides at [facility] fentanyl 100 mcg/hr transdermal patch RxNorm: 093380 1 Patch TD Q72H 03/29/2017 04/26/2017 Inactive nystatin 100,000 unit/gram topical powder RxNorm: 033245 APPLY UNDER BREASTS TWICE DAILY FOR YEAST SKIN INFECTION AND APPLY TO UNDERARM AND ABDOMINAL FOLDS AND PERIAREA TWICE DAILY 03/29/2017 03/28/2017 Inactive 03/27/2017 9:12:50 AM nystatin 100,000 unit/gram topical powder RxNorm: 636318 APPLY UNDER BREASTS TWICE DAILY FOR YEAST SKIN INFECTION AND APPLY TO UNDERARM AND ABDOMINAL FOLDS AND PERIAREA TWICE DAILY 03/29/2017 09/14/2017 Inactive 03/29/2017 9:42:55 AM03/27/2017 9:12:50 AM hyoscyamine 0.125 mg disintegrating tablet RxNorm: 9227992 1-2 Tablet(s) PO Q8 as needed 03/08/2017 03/27/2017 Inactive fentanyl 25 mcg/hr transdermal patch RxNorm: 478478 1 Patch TD Q72H 03/02/2017 03/31/2017 Inactive hydrocodone 10 mg-acetaminophen 325 mg tablet RxNorm: 485240 1 Tablet(s) PO scheduled BID et Q6 hours as needed 02/17/2017 03/18/2017 Inactive fentanyl 100 mcg/hr transdermal patch RxNorm: 887177 1 Patch TD Q72H 02/17/2017 03/18/2017 Inactive Lexapro 10 mg tablet RxNorm: 608940 1 Tablet(s) PO daily 02/05/2017 04/14/2017 Inactive Lexapro 10 mg tablet RxNorm: 161254 1 Tablet(s) PO daily 02/05/2017 02/04/2017 Inactive fentanyl 25 mcg/hr transdermal patch RxNorm: 250018 1 Patch TD Q72H 02/04/2017 03/01/2017 Inactive cyanocobalamin (vit B-12) 1,000 mcg tablet RxNorm: 808137 1 Tablet(s) PO daily 01/18/2017 12/13/2017 Inactive hyoscyamine 0.125 mg disintegrating tablet RxNorm: 0588012 Tablet(s) 1-2 Tablet(s) PO Q8 as needed 01/18/2017 02/06/2017 Inactive baclofen 10 mg tablet RxNorm: 944143 TAKE 1 TABLET THREE TIMES DAILY VIA STOMACH TUBE 01/04/2017 02/17/2017 Inactive 01/04/2017 9:25:18 AM fentanyl 100 mcg/hr transdermal patch RxNorm: 357861 1 Patch TD Q72H 12/25/2016 01/23/2017 Inactive hydrochlorothiazide 25 mg tablet RxNorm: 864344 Tablet(s) GIVE 1 TABLET VIA PEG TUBE ONCE A DAY 12/14/2016 07/11/2017 Inactive fentanyl 100 mcg/hr transdermal patch RxNorm: 308890 1 Patch TD Q72H 11/25/2016 12/24/2016 Inactive hyoscyamine 0.125 mg disintegrating tablet RxNorm: 1500057 Tablet(s) 1-2 Tablet(s) PO Q8 as needed 11/25/2016 12/14/2016 Inactive nystatin 100,000 unit/gram topical powder RxNorm: 544230 APPLY UNDER BREASTS TWICE DAILY FOR YEAST SKIN INFECTION AND APPLY TO UNDERARM AND ABDOMINAL FOLDS AND PERIAREA TWICE DAILY 11/24/2016 01/22/2017 Inactive 11/24/2016 9:34:02 AM hydrocodone 10 mg-acetaminophen 325 mg tablet RxNorm: 194716 1 Tablet(s) PO scheduled BID et Q6 hours as needed 11/02/2016 12/01/2016 Inactive cyanocobalamin (vit B-12) 1,000 mcg tablet RxNorm: 838081 1 Tablet(s) PO daily 11/02/2016 01/17/2017 Inactive hyoscyamine 0.125 mg disintegrating tablet RxNorm: 9483994 1-2 Tablet(s) PO Q8 as needed 10/19/2016 11/24/2016 Inactive fentanyl 100 mcg/hr transdermal patch RxNorm: 255988 1 Patch TD Q72H 10/13/2016 11/11/2016 Inactive hydrocodone 10 mg-acetaminophen 325 mg tablet RxNorm: 831552 1 Tablet(s) PO scheduled BID et Q6 hours as needed 10/05/2016 11/01/2016 Inactive baclofen 10 mg tablet RxNorm: 957932 TAKE 1 TABLET THREE TIMES DAILY VIA STOMACH TUBE 10/01/2016 11/14/2016 Inactive 10/01/2016 9:24:37 AM carvedilol 3.125 mg tablet RxNorm: 248388 GIVE 1 TABLET VIA PEG TUBE 2 TIMES A DAY 09/30/2016 12/28/2016 Inactive Generic For:COREG 3.125MG 09/30/2016 1:12:28 PM09/25/2016 9:06:11 AM Probiotic Blend 2 million cell-50 mg capsule RxNorm: 1 Capsule(s) PO BID 09/17/2016 09/23/2016 Inactive Keflex 500 mg capsule RxNorm: 490684 1 Capsule(s) PO TID 09/17/2016 09/23/2016 Inactive hyoscyamine 0.125 mg/5 mL oral elixir RxNorm: 0423467 5 Milliliter(s) PO TID 09/08/2016 09/17/2016 Inactive hyoscyamine 0.125 mg/5 mL oral elixir RxNorm: 9491697 5 Milliliter(s) PO TID 09/08/2016 09/07/2016 Inactive hyoscyamine 0.125 mg disintegrating tablet RxNorm: 7149109 1-2 Tablet(s) PO Q8 as needed 09/07/2016 10/18/2016 Inactive fentanyl 100 mcg/hr transdermal patch RxNorm: 335237 1 Patch TD Q72H 09/01/2016 09/30/2016 Inactive ranitidine 150 mg tablet RxNorm: 152802 1 Tablet(s) PO BID 08/25/2016 No Stop Date Active hydrocodone 10 mg-acetaminophen 325 mg tablet RxNorm: 439136 1 Tablet(s) PO scheduled BID et Q6 hours as needed 08/24/2016 09/22/2016 Inactive cyanocobalamin (vit B-12) 1,000 mcg tablet RxNorm: 419613 1 Tablet(s) PO daily 08/12/2016 11/01/2016 Inactive cyanocobalamin (vit B-12) 1,000 mcg tablet RxNorm: 184570 1 Tablet(s) PO daily 08/12/2016 08/11/2016 Inactive hydrocodone 10 mg-acetaminophen 325 mg tablet RxNorm: 942966 1-2 Tablet(s) PO Q6 as needed 08/03/2016 08/17/2016 Inactive fentanyl 100 mcg/hr transdermal patch RxNorm: 702877 1 Patch TD Q72H 08/03/2016 08/31/2016 Inactive nystatin 100,000 unit/gram topical powder RxNorm: 394912 APPLY UNDER BREASTS TWICE DAILY FOR YEAST SKIN INFECTION AND APPLY TO UNDERARM AND ABDOMINAL FOLDS AND PERIAREA TWICE DAILY 07/17/2016 09/14/2016 Inactive 07/17/2016 3:56:54 PM fentanyl 100 mcg/hr transdermal patch RxNorm: 751779 1 Patch TD Q72H 07/15/2016 08/02/2016 Inactive lisinopril 20 mg tablet RxNorm: 392244 1 Tablet(s) PO daily 07/02/2016 03/28/2017 Inactive hydrocodone 10 mg-acetaminophen 325 mg tablet RxNorm: 718601 1-2 Tablet(s) PO Q6 as needed 07/01/2016 07/15/2016 Inactive Xarelto 20 mg tablet RxNorm: 7083537 Tablet(s) TAKE 1 TABLET VIA PEG TUBE AT BEDTIME 06/19/2016 04/14/2017 Inactive fentanyl 100 mcg/hr transdermal patch RxNorm: 796949 1 Patch TD Q72H 06/17/2016 07/14/2016 Inactive nystatin 100,000 unit/gram topical powder RxNorm: 339617 APPLY TO UNDER BREASTS TWICE DAILY FOR YEAST SKIN INFECTION AND APPLY TO UNDERARM AND ABDOMINAL FOLDS AND PERIAREA TWICE DAILY 06/15/2016 07/16/2016 Inactive Generic For:MYCOSTATIN 100,000 UNITS/GM PW 06/15/2016 12:28:26 PM fentanyl 100 mcg/hr transdermal patch RxNorm: 415685 1 Patch TD Q72H 06/05/2016 06/16/2016 Inactive hydrocodone 10 mg-acetaminophen 325 mg tablet RxNorm: 275120 1-2 Tablet(s) PO Q6 as needed 06/02/2016 06/16/2016 Inactive Probiotic Blend 2 million cell-50 mg capsule RxNorm: 1 Capsule(s) PO BID 05/13/2016 05/19/2016 Inactive nitrofurantoin 100 mg capsule RxNorm: 415163 1 Capsule(s) PO BID 05/13/2016 05/19/2016 Inactive nitrofurantoin 100 mg capsule RxNorm: 363931 1 Capsule(s) PO BID 05/13/2016 05/12/2016 Inactive fentanyl 75 mcg/hr transdermal patch RxNorm: 761885 1 Patch TD Q72H 05/13/2016 06/04/2016 Inactive Keflex 500 mg capsule RxNorm: 668470 1 Capsule(s) PO TID 05/07/2016 05/13/2016 Inactive Patient at [facility] Keflex 500 mg capsule RxNorm: 097290 1 Capsule(s) PO TID 05/07/2016 05/06/2016 Inactive hydrocodone 10 mg-acetaminophen 325 mg tablet RxNorm: 132862 1-2 Tablet(s) PO Q6 as needed 05/04/2016 06/01/2016 Inactive hydrochlorothiazide 25 mg tablet RxNorm: 678525 Tablet(s) GIVE 1 TABLET VIA PEG TUBE ONCE A DAY 04/29/2016 11/24/2016 Inactive hydrochlorothiazide 25 mg tablet RxNorm: 344400 GIVE 1 TABLET VIA PEG TUBE ONCE A DAY 04/22/2016 04/28/2016 Inactive Generic For:HYDRODIURIL 25 MG TABLET refill request fentanyl 75 mcg/hr transdermal patch RxNorm: 871290 1 Patch TD Q72H 04/17/2016 05/12/2016 Inactive Xarelto 20 mg tablet RxNorm: 9903742 TAKE 1 TABLET VIA PEG TUBE AT BEDTIME 04/16/2016 06/14/2016 Inactive 04/16/2016 9:08:52 AM citalopram 40 mg tablet RxNorm: 106329 1 Tablet(s) PO daily 04/02/2016 02/25/2017 Inactive citalopram 40 mg tablet RxNorm: 767485 1 Tablet(s) PO daily 03/27/2016 04/01/2016 Inactive hydrocodone 10 mg-acetaminophen 325 mg tablet RxNorm: 384563 1-2 Tablet(s) PO Q6 as needed 03/27/2016 04/25/2016 Inactive fentanyl 75 mcg/hr transdermal patch RxNorm: 109332 1 Patch TD Q72H 03/18/2016 04/16/2016 Inactive hydrocodone 10 mg-acetaminophen 325 mg tablet RxNorm: 516741 1-2 Tablet(s) PO Q6 as needed 03/11/2016 03/26/2016 Inactive citalopram 40 mg tablet RxNorm: 076875 1 Tablet(s) PO daily 03/04/2016 03/26/2016 Inactive Levemir FlexTouch U-100 Insulin 100 unit/mL (3 mL) subcutaneous pen RxNorm: 226233 20 Unit(s) SQ BID 03/02/2016 09/27/2016 Inactive lisinopril 20 mg tablet RxNorm: 069533 1 Tablet(s) PO daily 02/25/2016 07/01/2016 Inactive Ativan 0.5 mg tablet RxNorm: 157501 1 Tablet(s) PO Q4H as needed 02/18/2016 04/14/2017 Inactive Xarelto 20 mg tablet RxNorm: 1044397 TAKE 1 TABLET VIA PEG TUBE AT BEDTIME 02/12/2016 04/11/2016 Inactive 02/12/2016 9:08:22 AM hydrocodone 10 mg-acetaminophen 325 mg tablet RxNorm: 543882 1-2 Tablet(s) PO Q6 as needed 02/12/2016 03/10/2016 Inactive fentanyl 75 mcg/hr transdermal patch RxNorm: 703095 1 Patch TD Q72H 02/11/2016 03/11/2016 Inactive citalopram 20 mg tablet RxNorm: 653853 1 Tablet(s) PO daily 01/28/2016 03/03/2016 Inactive fentanyl 75 mcg/hr transdermal patch RxNorm: 980420 1 TD Q72H 01/17/2016 02/10/2016 Inactive hydrocodone 10 mg-acetaminophen 325 mg tablet RxNorm: 690125 1-2 Tablet(s) PO Q6 as needed 01/07/2016 02/05/2016 Inactive fentanyl 50 mcg/hr transdermal patch RxNorm: 922530 1 TD Q72H 01/01/2016 01/16/2016 Inactive fentanyl 50 mcg/hr transdermal patch RxNorm: 610884 1 TD q 3 days 12/26/2015 12/31/2015 Inactive Xarelto 20 mg tablet RxNorm: 9010255 TAKE 1 TABLET VIA PEG TUBE AT BEDTIME 12/17/2015 02/11/2016 Inactive 12/16/2015 3:27:57 PM12/14/2015 9:45:17 AM hydrocodone 10 mg-acetaminophen 325 mg tablet RxNorm: 146384 1-2 Tablet(s) PO Q6 as needed 12/06/2015 01/04/2016 Inactive fentanyl 50 mcg/hr transdermal patch RxNorm: 581725 1 TD q 3 days 12/06/2015 12/25/2015 Inactive fentanyl 25 mcg/hr transdermal patch RxNorm: 187896 1 TD q 3 days 11/18/2015 12/05/2015 Inactive Zithromax Z-Eliu 250 mg tablet RxNorm: 032574 1 Tablet(s) PO UD 10/09/2015 02/26/2016 Inactive z pack as directed- please write out instructions- pt at [facility] nystatin 100,000 unit/gram topical powder RxNorm: 900305 APPLY TO UNDER BREASTS TWICE DAILY FOR YEAST SKIN INFECTION AND APPLY TO UNDERARM AND ABDOMINAL FOLDS AND PERIAREA TWICE DAILY 10/07/2015 12/05/2015 Inactive Generic For:MYCOSTATIN 100,000 UNITS/GM PW 10/05/2015 12:07:35 PM fentanyl 25 mcg/hr transdermal patch RxNorm: 603302 1 TD q 3 days 10/03/2015 11/01/2015 Inactive fentanyl 25 mcg/hr transdermal patch RxNorm: 600680 1 TD q 3 days 09/27/2015 10/02/2015 Inactive fentanyl 25 mcg/hr transdermal patch RxNorm: 521893 1 TD q 3 days 09/17/2015 09/26/2015 Inactive fentanyl 25 mcg/hr transdermal patch RxNorm: 598361 1 TD q 3 days 08/30/2015 09/16/2015 Inactive hydrocodone 5 mg-acetaminophen 325 mg tablet RxNorm: 166946 1 Tablet(s) PO Q6 as needed 08/30/2015 09/28/2015 Inactive Diflucan 100 mg tablet RxNorm: 945864 1 Tablet(s) Miscellaneous per peg daily 07/29/2015 08/04/2015 Inactive fentanyl 25 mcg/hr transdermal patch RxNorm: 421753 1 TD q 3 days 07/18/2015 08/29/2015 Inactive hydrocodone 5 mg-acetaminophen 325 mg tablet RxNorm: 684126 1 Tablet(s) PO Q6 as needed 07/18/2015 08/29/2015 Inactive Diflucan 100 mg tablet RxNorm: 747007 1 Tablet(s) Miscellaneous per peg daily 06/17/2015 06/23/2015 Inactive Senna-S 8.6 mg-50 mg tablet RxNorm: 066129 1 Tablet(s) PO daily as needed constipation No Start Date Active Dulcolax (bisacodyl) 10 mg rectal suppository RxNorm: 504760 1 Suppository RTL daily as needed constipation No Start Date Active polyethylene glycol 3350 17 gram/dose oral powder RxNorm: 629346 17 Gram(s) PO daily as needed constipation No Start Date Active baclofen 10 mg tablet RxNorm: 238898 1 Tablet(s) PO TID No Start Date 09/30/2016 Inactive Ativan 0.5 mg tablet RxNorm: 233992 1 Tablet(s) PO Q4H as needed No Start Date 02/17/2016 Inactive ranitidine 150 mg tablet RxNorm: 513100 1 Tablet(s) PO daily No Start Date 08/24/2016 Inactive carvedilol 3.125 mg tablet RxNorm: 771135 1 Tablet(s) PO daily No Start Date 09/29/2016 Inactive citalopram 40 mg tablet RxNorm: 178074 1 Tablet(s) PO daily No Start Date 01/27/2016 Inactive Probiotic Blend oral RxNorm: oral No Start Date 05/12/2016 Inactive hydrochlorothiazide 25 mg tablet RxNorm: 824835 1 Tablet(s) PO daily No Start Date 04/21/2016 Inactive albuterol sulfate concentrate 5 mg/mL(0.5 %) solution for nebulization RxNorm: 512714 1 Vial INH daily as needed congestion No Start Date 03/17/2018 Inactive Levemir FlexTouch 100 unit/mL (3 mL) subcutaneous insulin pen RxNorm: 481277 10 Unit(s) SQ BID No Start Date 03/01/2016 Inactive Zithromax Z-Eliu 250 mg tablet RxNorm: 417762 1 Tablet(s) PO UD No Start Date 10/08/2015 Inactive z pack as directed- please write out instructions- pt at [facility] nystatin 100,000 unit/gram topical powder RxNorm: 973018 Gram(s) TOP BID as needed No Start Date 10/06/2015 Inactive pravastatin 40 mg tablet RxNorm: 655552 Tablet(s) PO daily No Start Date 04/14/2017 Inactive lorazepam 0.5 mg tablet RxNorm: 484844 1/2 Tablet(s) PO BID No Start Date 05/02/2017 Inactive Xarelto 20 mg tablet RxNorm: 9427713 1 Tablet(s) PO daily No Start Date 12/16/2015 Inactive fentanyl 25 mcg/hr transdermal patch RxNorm: 387474 1 TD q 3 days No Start Date 07/17/2015 Inactive lisinopril 20 mg tablet RxNorm: 654947 1 Tablet(s) PO daily No Start Date 02/24/2016 Inactive hydrocodone 5 mg-acetaminophen 325 mg tablet RxNorm: 697718 1 Tablet(s) PO Q6 as needed No Start Date 07/17/2015 Inactive citalopram 40 mg tablet RxNorm: 492118 1 Tablet(s) PO daily No Start Date 03/03/2016 Inactive hyoscyamine 0.125 mg disintegrating tablet RxNorm: 5560158 1-2 Tablet(s) PO Q8 as needed No [...] Code Item Item Code Result Date %Hba1C Fog296 % HbA1c 24564- 6 5.5 % 05/18/2018 %Hba1C Bbw080 Gluc Ave 111 mg/dL 05/18/2018 Cbc With [...] 32.3 pg 05/18/2018 Cbc With Differential Ord2 [place]% 4.9 % 05/18/2018 Cbc With Differential Ord2 [...] 1.81 K/ul 05/18/2018 Cbc With Differential Ord2 [place] ABS# 0.4 K/ul 05/18/2018 Cbc With Differential Ord2 Eos ABS# 0.6 K/ul 05/18/2018 Cbc With Differential Ord2 Baso ABS# 0.0 K/ul 05/18/2018 Tsh Ord6 TSH (3rd IS) 0.85 uIU/mL 05/18/2018 Comp Metabolic Khi245 NA 137 mEq/L 05/18/2018 Comp Metabolic Ymt953 K 4.2 mEq/L 05/18/2018 Comp Metabolic Pwz116 CL 97 mEq/L 05/18/2018 Comp Metabolic Eqk233 CO2 34.0 mEq/L 05/18/2018 Comp Metabolic Glj912 ANION GAP 10 05/18/2018 Comp Metabolic Cfy221 GLUCOSE 177 mg/dL 05/18/2018 Comp Metabolic Sic885 Creat 0.5 mg/dL 05/18/2018 Comp Metabolic Hlu023 eGFR 122 ml/min/1.73m2 05/18/2018 Comp Metabolic Czn300 BUN 23 mg/dL 05/18/2018 Comp Metabolic Lqk042 B/C Ratio 43.4 Ratio 05/18/2018 Comp Metabolic Jcj434 CALCIUM 9.2 mg/dL 05/18/2018 Comp Metabolic Uyv981 ALK PHOS 86 U/L 05/18/2018 Comp Metabolic Pkz512 AST(SGOT) 14 U/L 05/18/2018 Comp Metabolic Pmc685 ALT(SGPT) 9 U/L 05/18/2018 Comp Metabolic Kqf880 BILI T 0.3 mg/dL 05/18/2018 Comp Metabolic Oiy758 ALBUMIN 3.7 g/dL 05/18/2018 Comp Metabolic Kef435 TPRO 6.2 g/dL 05/18/2018 Comp Metabolic Sbp713 GLOB 2.6 g/dL 05/18/2018 Comp Metabolic Keg195 A/G Ratio 1.4 Ratio 05/18/2018 Comp Metabolic Qxi008 Osmo 282 mOsmo 05/18/2018 A1C Frequency Idb903 A1CF 57639-6 Last A1C performed at [facility] lab on: 02-14-2018 05/10/2018 Cbc [...] 30.7 pg 02/14/2018 Cbc With Differential Ord2 [place]% 7.4 % 02/14/2018 Cbc With Differential Ord2 [...] 2.14 K/ul 02/14/2018 Cbc With Differential Ord2 [place] ABS# 0.5 K/ul 02/14/2018 Cbc With Differential Ord2 Eos ABS# 0.3 K/ul 02/14/2018 Cbc With Differential Ord2 Baso ABS# 0.0 K/ul 02/14/2018 Comp Metabolic Wli307 NA 142 mEq/L 02/14/2018 Comp Metabolic Yvh292 K 4.5 mEq/L 02/14/2018 Comp Metabolic Zjn145 CL 97 mEq/L 02/14/2018 Comp Metabolic Mtj816 CO2 41.0 mEq/L 02/14/2018 Comp Metabolic Wnu347 ANION GAP 9 02/14/2018 Comp Metabolic Fsk332 GLUCOSE 111 mg/dL 02/14/2018 Comp Metabolic Ehu143 Creat 0.6 mg/dL 02/14/2018 Comp Metabolic Qxi586 eGFR 108 ml/min/1.73m2 02/14/2018 Comp Metabolic Zny000 BUN 32 mg/dL 02/14/2018 Comp Metabolic Wvg379 B/C Ratio 54.2 Ratio 02/14/2018 Comp Metabolic Axm760 CALCIUM 8.9 mg/dL 02/14/2018 Comp Metabolic Yzz787 ALK PHOS 81 U/L 02/14/2018 Comp Metabolic Njv427 AST(SGOT) 14 U/L 02/14/2018 Comp Metabolic Nkk060 ALT(SGPT) 11 U/L 02/14/2018 Comp Metabolic Icu617 BILI T 0.3 mg/dL 02/14/2018 Comp Metabolic Klq928 ALBUMIN 3.4 g/dL 02/14/2018 Comp Metabolic Rlu408 TPRO 6.3 g/dL 02/14/2018 Comp Metabolic Ppo975 GLOB 2.9 g/dL 02/14/2018 Comp Metabolic Ajm167 A/G Ratio 1.2 Ratio 02/14/2018 Comp Metabolic Zmh836 Osmo 291 mOsmo 02/14/2018 %Hba1C Loc981 % HbA1c 85617- 6 5.5 % 02/14/2018 %Hba1C Tfp293 Gluc Ave 111 mg/dL 02/14/2018 Prealbumin 857586 PREALBUMIN 27 mg/dL 11/24/2017 %Hba1C Kvj757 % HbA1c 92598- 6 5.5 % 11/04/2017 %Hba1C Rvn369 Gluc Ave 111 mg/dL 11/04/2017 Culture Urine [id number] URINE CULTURE SEE NOTES 10/04/2017 Culture Urine [id number] Continued Results 10/04/2017 Urine Culture Ucult Complete [...] Ord28 U-Com Culture to follow 10/01/2017 B12 Lyt352 B12 >1500.00 pg/ml 02/19/2017 Cbc With Differential [...] 31.5 pg 02/02/2017 Cbc With Differential Ord2 [place]% 8.3 % 02/02/2017 Cbc With Differential Ord2 [...] 2.28 K/ul 02/02/2017 Cbc With Differential Ord2 [place] ABS# 0.6 K/ul 02/02/2017 Cbc With Differential Ord2 Eos ABS# 0.4 K/ul 02/02/2017 Cbc With Differential Ord2 Baso ABS# 0.0 K/ul 02/02/2017 %Hba1C Wjt375 % HbA1c 63672- 6 5.2 % 02/02/2017 %Hba1C Icw234 Gluc Ave 103 mg/dL 02/02/2017 Comp Metabolic Nmp383 NA 138 mEq/L 02/02/2017 Comp Metabolic Pxx115 K 4.5 mEq/L 02/02/2017 Comp Metabolic Bzq252 CL 98 mEq/L 02/02/2017 Comp Metabolic Saq986 CO2 37.0 mEq/L 02/02/2017 Comp Metabolic Vof367 ANION GAP 8 02/02/2017 Comp Metabolic Cvl559 GLUCOSE 94 mg/dL 02/02/2017 Comp Metabolic Vwc562 Creat 0.7 mg/dL 02/02/2017 Comp Metabolic Vay929 eGFR 88 ml/min/1.73m2 02/02/2017 Comp Metabolic Aaj756 BUN 36 mg/dL 02/02/2017 Comp Metabolic Wnb525 B/C Ratio 50.7 Ratio 02/02/2017 Comp Metabolic Igy994 CALCIUM 9.0 mg/dL 02/02/2017 Comp Metabolic Usq932 ALK PHOS 78 U/L 02/02/2017 Comp Metabolic Ols051 AST(SGOT) 22 U/L 02/02/2017 Comp Metabolic Gvo488 ALT(SGPT) 28 U/L 02/02/2017 Comp Metabolic Mam677 BILI T 0.3 mg/dL 02/02/2017 Comp Metabolic Zfa931 ALBUMIN 3.3 g/dL 02/02/2017 Comp Metabolic Iyb063 TPRO 5.9 g/dL 02/02/2017 Comp Metabolic Plu300 GLOB 2.6 g/dL 02/02/2017 Comp Metabolic Pgc980 A/G Ratio 1.3 Ratio 02/02/2017 Comp Metabolic Xkk968 Osmo 284 mOsmo 02/02/2017 %Hba1C Rac117 % HbA1c 07878- 6 5.0 % 10/29/2016 %Hba1C Zfa359 Gluc Ave 97 mg/dL 10/29/2016 Culture Urine [id number] URINE CULTURE SEE NOTES 09/21/2016 Culture Urine [id number] Continued Results 09/21/2016 Urine Culture Ucult Complete [...] 32.4 pg 07/30/2016 Cbc With Differential Ord2 [place]% 7.2 % 07/30/2016 Cbc With Differential Ord2 [...] 2.69 K/ul 07/30/2016 Cbc With Differential Ord2 [place] ABS# 0.5 K/ul 07/30/2016 Cbc With Differential Ord2 Eos ABS# 0.5 K/ul 07/30/2016 Cbc With Differential Ord2 Baso ABS# 0.0 K/ul 07/30/2016 Comp Metabolic Xqh073 NA 141 mEq/L 07/30/2016 Comp Metabolic Eyc882 K 4.3 mEq/L 07/30/2016 Comp Metabolic Byk506 CL 100 mEq/L 07/30/2016 Comp Metabolic Onq792 CO2 33.0 mEq/L 07/30/2016 Comp Metabolic Cnp371 ANION GAP 12 07/30/2016 Comp Metabolic Pty899 GLUCOSE 64 mg/dL 07/30/2016 Comp Metabolic Myn202 Creat 0.5 mg/dL 07/30/2016 Comp Metabolic Fxq689 eGFR 126 ml/min/1.73m2 07/30/2016 Comp Metabolic Oyz535 BUN 25 mg/dL 07/30/2016 Comp Metabolic Xge707 B/C Ratio 48.1 Ratio 07/30/2016 Comp Metabolic Xse431 CALCIUM 8.9 mg/dL 07/30/2016 Comp Metabolic Ikt729 ALK PHOS 90 U/L 07/30/2016 Comp Metabolic Xkv070 AST(SGOT) 22 U/L 07/30/2016 Comp Metabolic Xan552 ALT(SGPT) 36 U/L 07/30/2016 Comp Metabolic Vxr769 BILI T 0.3 mg/dL 07/30/2016 Comp Metabolic Zfs261 ALBUMIN 3.4 g/dL 07/30/2016 Comp Metabolic Tqp156 TPRO 6.0 g/dL 07/30/2016 Comp Metabolic Ziv413 GLOB 2.7 g/dL 07/30/2016 Comp Metabolic Qjo928 A/G Ratio 1.3 Ratio 07/30/2016 Comp Metabolic Waz297 Osmo 284 mOsmo 07/30/2016 A1C Frequency Nul296 A1CF 69927-2 Last A1C performed at [facility] [place] lab on: 05-12-2016 07/30/2016 %Hba1C Pmu558 % HbA1c 99741- 6 5.2 % 05/12/2016 %Hba1C Sti492 Gluc Ave 103 mg/dL 05/12/2016 Culture Urine [id number] URINE CULTURE SEE NOTES 05/11/2016 Urine Culture [...] U-Com Culture to follow 05/06/2016 Culture Urine [id number] URINE CULTURE SEE NOTES 03/17/2016 Culture Urine [id number] Continued Results 03/17/2016 Urine Culture Ucult Complete [...] 32.0 pg 02/11/2016 Cbc With Differential Ord2 [place]% 9.1 % 02/11/2016 Cbc With Differential Ord2 [...] 2.59 K/ul 02/11/2016 Cbc With Differential Ord2 [place] ABS# 0.6 K/ul 02/11/2016 Cbc With Differential Ord2 Eos ABS# 0.3 K/ul 02/11/2016 Cbc With Differential Ord2 Baso ABS# 0.0 K/ul 02/11/2016 Comp Metabolic Trm949 NA 137 mEq/L 02/11/2016 Comp Metabolic Drv676 K 4.4 mEq/L 02/11/2016 Comp Metabolic Lkr091 CL 100 mEq/L 02/11/2016 Comp Metabolic Urh945 CO2 25.0 mEq/L 02/11/2016 Comp Metabolic Gzx405 ANION GAP 16 02/11/2016 Comp Metabolic Msy774 GLUCOSE 99 mg/dL 02/11/2016 Comp Metabolic Phh774 Creat 0.6 mg/dL 02/11/2016 Comp Metabolic Btd277 eGFR 99 ml/min/1.73m2 02/11/2016 Comp Metabolic Osh290 BUN 27 mg/dL 02/11/2016 Comp Metabolic Cpr403 B/C Ratio 42.2 Ratio 02/11/2016 Comp Metabolic Qho713 CALCIUM 9.2 mg/dL 02/11/2016 Comp Metabolic Zvn155 ALK PHOS 74 U/L 02/11/2016 Comp Metabolic Xnr089 AST(SGOT) 24 U/L 02/11/2016 Comp Metabolic Rkj121 ALT(SGPT) 26 U/L 02/11/2016 Comp Metabolic Agh106 BILI T 0.5 mg/dL 02/11/2016 Comp Metabolic Bpl149 ALBUMIN 3.5 g/dL 02/11/2016 Comp Metabolic Oqg425 TPRO 6.2 g/dL 02/11/2016 Comp Metabolic Icg133 GLOB 2.7 g/dL 02/11/2016 Comp Metabolic Yiv576 A/G Ratio 1.3 Ratio 02/11/2016 Comp Metabolic Qkz703 Osmo 279 mOsmo 02/11/2016 Review of Systems [...] 1: 128/86 Code: 8480-6 BMI: 31.4 Code: 90793-3 Heart Rate 1: 72 bpm Height: 5'1" Weight: 166 lbs 06/17/2015 Blood Pressure 1: 110/78 Code: 8480-6 BMI: 33.3 Code: 45087-2 Heart Rate 1: 74 bpm Height: 5'1" [...] Present Encounters Encounter Performer Location Codes Date ([id number]) [id number] EST. PATIENT, LEVEL IV Diagnosis: Essential (primary) hypertension[ICD10: I10] Diagnosis: Chronic pain syndrome[ICD10: G89.4] Diagnosis: Type 2 diabetes mellitus without complications[ICD10: E11.9] Diagnosis: Dysphagia following cerebral infarction[ICD10: I69.391] Carlyn Everett MD, [facility] CPT-4: 67636 05/17/2018 ([id number]) 09982 EST. PATIENT, LEVEL IV Diagnosis: Cough[ICD10: R05] Diagnosis: Pneumonia, unspecified organism[ICD10: J18.9] Diagnosis: Pain in right knee[ICD10: M25.561] Carlyn Everett MD, [facility] CPT- 4: 63237 03/18/2018 ([id number]) 51590 EST. PATIENT, LEVEL IV Diagnosis: Type 2 diabetes mellitus without complications[ICD10: E11.9] Diagnosis: Essential (primary) hypertension[ICD10: I10] Diagnosis: Chronic pain syndrome[ICD10: G89.4] Carlyn Everett MD, [facility] CPT-4: 11071 01/07/2018 ([id number]) 79266 EST. PATIENT, LEVEL IV Diagnosis: Essential (primary) hypertension[ICD10: I10] Diagnosis: Type 2 diabetes mellitus without complications[ICD10: E11.9] Carlyn Everett MD, [facility] CPT-4: 96384 2017 ([id number]) 05793 EST. PATIENT, LEVEL IV Diagnosis: Type 2 diabetes mellitus with hyperglycemia[ICD10: E11.65] Diagnosis: Essential (primary) hypertension[ICD10: I10] Diagnosis: Pain in left shoulder[ICD10: M25.512] Diagnosis: Pain in right shoulder[ICD10: M25.511] Diagnosis: Pain in left knee[ICD10: M25.562] Diagnosis: Pain in right knee[ICD10: M25.561] Vonda Everett MD, [facility] CPT- 4: 50540 09/09/2017 [id number] EST. PATIENT, LEVEL IV Diagnosis: Essential (primary) hypertension[ICD10: I10] Diagnosis: Type 2 diabetes mellitus with hyperglycemia[ICD10: E11.65] Diagnosis: Low back pain[ICD10: M54.5] Sunitha Everett MD, [facility] CPT-4: 00865 06/08/2017 ([id number]) 75703 EST. PATIENT, LEVEL IV Diagnosis: Essential (primary) hypertension[ICD10: I10] Diagnosis: Type 2 diabetes mellitus with hyperglycemia[ICD10: E11.65] Diagnosis: Low back pain[ICD10: M54.5] Sunitha Everett MD, [facility] CPT-4: 71428 04/15/2017 ([id number]) 87445 EST. PATIENT, LEVEL IV Diagnosis: Essential (primary) hypertension[ICD10: I10] Diagnosis: Type 2 diabetes mellitus with hyperglycemia[ICD10: E11.65] Diagnosis: Low back pain[ICD10: M54.5] Vonda Everett MD, [facility] CPT-4: 90279 02/16/2017 82390 EST. 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 05/17/2018 Appointment: Carlyn Higginbotham WPtel: [facility] [address] (15 min) Moderate 05/17/2018 Patient Education: Patient Medication Summary Completed 05/17/2018 Patient Education: Hypertension Completed 05/17/2018 Patient Education: Diabetes Completed 05/17/2018 Appointment: Carlyn Higginbotham WPtel: [phone] (15 min) Moderate 04/07/2018 Visit Plan: Pneumonia - Pt has been diagnosed with pneumonia by physical exam. A chest xray has been ordered as have antibiotics. The pt is aware of the diagnosis and the need for acute treatment of this illness. Right knee pain -xray knee-rx for voltaren gel 03/18/2018 Appointment: Carlyn Higginbotham WPtel: [phone] [phone] [place] (30 min) Complex 03/18/2018 Patient Education: Patient Medication Summary Completed 03/18/2018 Appointment: Carlyn Higginbotham WPtel: [phone] [phone] [place] (30 min) Complex 03/17/2018 Appointment: Carlyn Higginbotham WPtel: [phone] [place] (15 min) Moderate 03/10/2018 Appointment: Carlyn Higginbotham WPtel: [phone] [phone] [place] (15 min) Moderate 02/08/2018 Visit Plan: DM -decrease levemir to 4 units daily -monitor blood sugars MMD-cvoijwgbee-ru changes Chronic pain -well controlled with fentanyl patch -no changes at this time 01/07/2018 Appointment: Carlyn Higginbotham WPtel: [phone] [place] (15 min) Moderate 01/07/2018 Patient Education: [...] AT HS 2017 Appointment: Carlyn Higginbotham WPtel: [phone] [place] (15 min) Moderate 2017 Patient Education: [...] 175mcg. 09/09/2017 [phone] ([facility] Moderate 09/09/2017 Patient Education: [...] [phone] ([facility] min) Complex 06/08/2017 Patient Education: Patient [...] [phone] (30 min) Complex 04/15/2017 Patient Education: Patient [...] today. 02/16/2017 App[facility]ment[phone] [place] (15 min) Moderate 02/16/2017 Patient [...] concerns. 11/09/2016 Appointment: [facility] Pat[phone] (30 min) Complex 11/09/2016 Patient Education: Patient Medication Summary Completed 11/09/2016 Care Plan: Referral Order SNOMED-CT : [id number] Pending 11/09/2016 Patient Education: Patient Medication Summary [...] Follow up weight in 1 month Neck mqsc-tqvrvmexspd-Yckf PT focus neck/upper body Right earache-cerumen removed with water pick today in the office 07/18/2015 Appointment: (30 min) Complex 07/18/2015 Patient Education: Patient Medication Summary Completed 07/18/2015 Patient Education: Obesity Completed 07/18/2015 Patient Education: .Cervicalgia Neck Pain Completed 07/18/2015 [phone] [facility] Completed 06/25/2015 Visit Plan: Hypertension [...] normal liver response to medications. referral to [facility] for post stroke - left sided weakness, neck stiffness, upper extremity weakness Diabetes Mellitus - controlled - per family report - check labs this week, get report from and [facility]. I spent over an hour with the patient in direct contact. 06/17/2015 Appointment: [phone] [facility] [facility] 06/17/2015 Patient Education: Patient Medication Summary Completed 06/17/2015 Patient Education: Obesity Completed 06/17/2015 Patient Education: Hypertension Completed 06/17/2015 Care Plan: Referral Order SNOMED-CT : [id number] Ordered 06/17/2015 Referral: Jorge Luis Carroll Referral Initiated Ref[phone] [facility] [place] Referral Appointment Requested Instructions Comment Add 1 scoop of whey protein from [facility] to 2 feedings per day [...] Follow up weight in 1 month Neck hoju-tmttbsblmtc-Ppom PT focus neck/upper body Right earache-cerumen removed [...] to 4 units daily -monitor blood sugars RHF-bihvtxjshg-bp changes Chronic pain -well controlled with fentanyl [...] normal liver response to medications. referral to [facility] therapy for post stroke - left sided weakness, neck stiffness, upper extremity weakness Diabetes Mellitus - controlled - per family report - check labs this week, get report from and [facility]. I spent over an hour [...]
--- OUTSIDE RECORDS SUMMARY | 2018-08-09 11:05 | XMS REPORT | CCD ---
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 Name Role Phone PP Unavailable CCM Unavailable Summary Purpose Interface Exchange Insurance Providers Payer name Policy type / Coverage type Covered green party ID Effective Begin Date Effective End Date WPS Medicare Part B Medicare Part B [id number] Unknown Unknown [place] [employer] Insurance Medicare Part B [id number] Unknown Unknown Family history Father Diagnosis Age At Onset Arthritis Unknown Hypertension Unknown Mother Diagnosis Age At Onset Diabetes mellitus Type 2 Unknown Depression Unknown Arthritis Unknown Stroke Unknown Hypertension Unknown Sister Diagnosis Age At Onset Colon cancer Unknown Social History Social History Element Codes Description Effective Dates Marital status Unknown Maurice 01/07/2018 Living arrangements Unknown [facility] 04/15/2017 Number of children Unknown 3 06/17/2015 Employment Unknown Retired 06/17/[address]: 5678255 Quit over 10 years ago 15+ 06/17/[address]: 146710354 Never drinks alcohol 06/17/2015 Allergies, Adverse Reactions, [...] Start Date Stop Date Status Fill Instructions citalopram 40 mg tablet RxNorm: 821235 1 Tablet(s) PO daily 06/20/2018 05/15/2019 Active Voltaren 1 % topical gel RxNorm: 820621 APPLY 4 GRAMS TO RIGHT KNEE FOUR TIMES DAILY 06/13/2018 07/06/2018 Active Generic For:VOLTAREN GEL 1% 06/13/2018 10:59:02 AM hydrocodone 10 mg-acetaminophen 325 mg tablet RxNorm: 104290 2 Tablet(s) PO scheduled TID 06/07/2018 07/06/2018 Active Not to exceed 3gm/24hr acetaminophen fentanyl 100 mcg/hr transdermal patch RxNorm: 374769 1 Patch TD Q72H 06/03/2018 07/02/2018 Active Duragesic 75 mcg/hr transdermal patch RxNorm: 951232 1 Patch TD Q72H 06/03/2018 07/02/2018 Active hyoscyamine 0.125 mg disintegrating tablet RxNorm: 3793808 Tablet(s) Tablet(s) 1-2 Tablet(s) PO Q8 as needed 05/27/2018 No Stop Date Active lorazepam 0.5 mg tablet RxNorm: 763888 1 Tablet(s) PO BID and 1 tab q 6 hours prn 05/24/2018 No Stop Date Active hydrocodone 10 mg-acetaminophen 325 mg tablet RxNorm: 976816 2 Tablet(s) PO scheduled TID 05/24/2018 06/06/2018 Inactive Not to exceed 3gm/24hr acetaminophen citalopram 20 mg tablet RxNorm: 291744 1 Tablet(s) PO daily 05/17/2018 06/19/2018 Inactive hydrocodone 10 mg-acetaminophen 325 mg tablet RxNorm: 275569 2 Tablet(s) PO scheduled TID 04/19/2018 05/18/2018 Inactive Not to exceed 3gm/24hr acetaminophen lorazepam 0.5 mg tablet RxNorm: 050292 1 Tablet(s) PO BID and 1 tab q 6 hours prn 04/07/2018 05/23/2018 Inactive hyoscyamine 0.125 mg disintegrating tablet RxNorm: 7519132 Tablet(s) 1-2 Tablet(s) PO Q8 as needed 03/31/2018 05/26/2018 Inactive Duragesic 75 mcg/hr transdermal patch RxNorm: 350562 1 Patch TD Q72H 03/31/2018 04/29/2018 Inactive fentanyl 100 mcg/hr transdermal patch RxNorm: 309564 1 Patch TD Q72H 03/31/2018 04/29/2018 Inactive carvedilol 3.125 mg tablet RxNorm: 727224 Tablet(s) GIVE 1 TABLET VIA PEG TUBE 2 TIMES A DAY 03/30/2018 06/27/2018 Active Generic For:COREG 3.125MG 10/22/2017 9:23:30 AM Voltaren 1 % topical gel RxNorm: 667085 APPLY 4 GRAMS TO RIGHT KNEE FOUR TIMES DAILY 03/30/2018 04/22/2018 Inactive Generic For:VOLTAREN GEL 1% 03/30/2018 11:14:57 AM hydrocodone 10 mg-acetaminophen 325 mg tablet RxNorm: 877075 2 Tablet(s) PO scheduled TID 03/23/2018 04/18/2018 Inactive Not to exceed 3gm/24hr acetaminophen albuterol sulfate concentrate 5 mg/mL(0.5 %) solution for nebulization RxNorm: 624514 1 Vial Milliliter(s) INH TID PRN as needed congestion 03/18/2018 No Stop Date Active cefdinir 300 mg capsule RxNorm: 930123 1 Capsule(s) PO BID 03/18/2018 03/24/2018 Inactive Zithromax Z-Eliu 250 mg tablet RxNorm: 605888 Tablet(s) PO 03/18/2018 05/16/2018 Inactive Voltaren 1 % topical gel RxNorm: 567530 4 Gram(s) TOP QID 03/18/2018 03/29/2018 Inactive hydrochlorothiazide 25 mg tablet RxNorm: 216681 GIVE 1 TABLET VIA PEG TUBE ONCE DAILY 03/11/2018 09/06/2018 Active Generic For:HYDRODIURIL 25 MG TABLET 03/11/2018 9:15:32 AM fentanyl 100 mcg/hr transdermal patch RxNorm: 496792 1 Patch TD Q72H 03/02/2018 03/30/2018 Inactive Duragesic 75 mcg/hr transdermal patch RxNorm: 319589 1 Patch TD Q72H 03/02/2018 03/30/2018 Inactive hydrocodone 10 mg-acetaminophen 325 mg tablet RxNorm: 117346 2 Tablet(s) PO scheduled TID 02/18/2018 03/22/2018 Inactive Not to exceed 3gm/24hr acetaminophen hyoscyamine 0.125 mg disintegrating tablet RxNorm: 4349276 Tablet(s) 1-2 Tablet(s) PO Q8 as needed 02/08/2018 03/30/2018 Inactive fentanyl 100 mcg/hr transdermal patch RxNorm: 960684 1 Patch TD Q72H 02/04/2018 03/01/2018 Inactive hydrocodone 10 mg-acetaminophen 325 mg tablet RxNorm: 542605 2 Tablet(s) PO scheduled TID 02/04/2018 02/17/2018 Inactive Not to exceed 3gm/24hr acetaminophen Duragesic 75 mcg/hr transdermal patch RxNorm: 731191 1 Patch TD Q72H 02/04/2018 03/01/2018 Inactive Levemir FlexTouch U-100 Insulin 100 unit/mL (3 mL) subcutaneous pen RxNorm: 612362 4 Unit(s) SQ QHS 01/07/2018 No Stop Date Active Duragesic 75 mcg/hr transdermal patch RxNorm: 664739 1 Patch TD Q72H 01/07/2018 02/03/2018 Inactive fentanyl 100 mcg/hr transdermal patch RxNorm: 623029 1 Patch TD Q72H 01/07/2018 02/03/2018 Inactive hydrocodone 10 mg-acetaminophen 325 mg tablet RxNorm: 816799 2 Tablet(s) PO scheduled TID 01/05/2018 02/03/2018 Inactive Not to exceed 3gm/24hr acetaminophen hydrocodone 10 mg-acetaminophen 325 mg tablet RxNorm: 314536 2 Tablet(s) PO scheduled TID and 1 tab q 4 as needed 01/04/2018 01/04/2018 Inactive Not to exceed 3gm/24hr acetaminophen cyanocobalamin (vit B-12) 1,000 mcg tablet RxNorm: 700631 1 Tablet(s) PO daily 12/28/2017 11/22/2018 Active baclofen 10 mg tablet RxNorm: 513929 Tablet(s) TAKE 1 TABLET THREE TIMES DAILY VIA STOMACH TUBE 12/27/2017 05/25/2018 Inactive 10/07/2017 5:36:15 PM 10/07/2017 5:36:13 PM N O T I C E Last quantity doesn't match original quantity Duragesic 75 mcg/hr transdermal patch RxNorm: 845877 1 Patch TD Q72H 12/22/2017 01/06/2018 Inactive fentanyl 100 mcg/hr transdermal patch RxNorm: 861057 1 Patch TD Q72H 12/22/2017 01/06/2018 Inactive hydrocodone 10 mg-acetaminophen 325 mg tablet RxNorm: 000750 2 Tablet(s) PO scheduled TID and 1 tab q 4 as needed 12/20/2017 01/03/2018 Inactive Not to exceed 3gm/24hr acetaminophen hyoscyamine 0.125 mg disintegrating tablet RxNorm: 3589999 1-2 Tablet(s) PO Q8 as needed 12/14/2017 02/07/2018 Inactive Duragesic 75 mcg/hr transdermal patch RxNorm: 362207 1 Patch TD Q72H 12/06/2017 12/21/2017 Inactive fentanyl 100 mcg/hr transdermal patch RxNorm: 768932 1 Patch TD Q72H 12/06/2017 12/21/2017 Inactive hydrocodone 10 mg-acetaminophen 325 mg tablet RxNorm: 283640 2 Tablet(s) PO scheduled TID and 1 tab q 4 as needed 11/29/2017 12/19/2017 Inactive Not to exceed 3gm/24hr acetaminophen Duragesic 75 mcg/hr transdermal patch RxNorm: 470922 1 Patch TD Q72H 11/11/2017 12/05/2017 Inactive hydrocodone 10 mg-acetaminophen 325 mg tablet RxNorm: 398169 2 Tablet(s) PO scheduled TID and 1 tab q 4 as needed 11/09/2017 11/28/2017 Inactive Not to exceed 3gm/24hr acetaminophen Levemir FlexTouch U-100 Insulin 100 unit/mL (3 mL) subcutaneous pen RxNorm: 584713 8 Unit(s) SQ QHS 11/09/2017 01/06/2018 Inactive fentanyl 100 mcg/hr transdermal patch RxNorm: 239952 1 Patch TD Q72H 2017 12/05/2017 Inactive hyoscyamine 0.125 mg disintegrating tablet RxNorm: 5072851 1-2 Tablet(s) PO Q8 as needed 11/03/2017 12/13/2017 Inactive carvedilol 3.125 mg tablet RxNorm: 523373 GIVE 1 TABLET VIA PEG TUBE 2 TIMES A DAY 10/22/2017 01/19/2018 Inactive Generic For:COREG 3.125MG 10/22/2017 9:23:30 AM hydrocodone 10 mg-acetaminophen 325 mg tablet RxNorm: 438396 2 Tablet(s) PO scheduled TID and 1 tab q 4 as needed 10/22/2017 2017 Inactive Not to exceed 3gm/24hr acetaminophen fentanyl 100 mcg/hr transdermal patch RxNorm: 649365 1 Patch TD Q72H 10/20/2017 11/07/2017 Inactive Duragesic 75 mcg/hr transdermal patch RxNorm: 594229 1 Patch TD Q72H 10/20/2017 11/10/2017 Inactive lorazepam 0.5 mg tablet RxNorm: 367471 1 Tablet(s) PO BID and 1 tab q 6 hours prn 10/18/2017 No Stop Date Active baclofen 10 mg tablet RxNorm: 282720 TAKE 1 TABLET THREE TIMES DAILY VIA STOMACH TUBE 10/07/2017 12/26/2017 Inactive 10/07/2017 5:36:15 PM 10/07/2017 5:36:13 PM N O T I C E Last quantity doesn't match original quantity cranberry extract 500 mg tablet RxNorm: 9170989 1 Tablet(s) PO QAM 10/04/2017 01/31/2018 Inactive Cipro 500 mg tablet RxNorm: 184852 1 Tablet(s) PO BID 10/04/2017 10/03/2017 Inactive dc keflex hydrocodone 10 mg-acetaminophen 325 mg tablet RxNorm: 676586 2 Tablet(s) PO scheduled TID as needed 10/04/2017 10/21/2017 Inactive Not to exceed 3gm/24hr acetaminophen cranberry extract 500 mg tablet RxNorm: 1938006 1 Tablet(s) PO QAM 10/04/2017 10/03/2017 Inactive Cipro 500 mg tablet RxNorm: 871501 1 Tablet(s) PO BID 10/04/2017 10/10/2017 Inactive dc keflex Duragesic 75 mcg/hr transdermal patch RxNorm: 907598 1 Patch TD Q72H 09/20/2017 10/19/2017 Inactive fentanyl 100 mcg/hr transdermal patch RxNorm: 903228 1 Patch TD Q72H 09/20/2017 10/19/2017 Inactive hyoscyamine 0.125 mg disintegrating tablet RxNorm: 1481300 1 Tablet(s) PO TID and 1 Tablet Q4H prn increased secretions 09/15/2017 11/02/2017 Inactive hydrocodone 10 mg-acetaminophen 325 mg tablet RxNorm: 169364 2 Tablet(s) PO scheduled TID and 1-2 Tabs Q4H PRN pain 09/15/2017 10/03/2017 Inactive Not to exceed 3gm/24hr acetaminophen lorazepam 0.5 mg tablet RxNorm: 849877 1 Tablet(s) PO BID 09/15/2017 10/17/2017 Inactive Lexapro 10 mg tablet RxNorm: 901061 1 Tablet(s) PO daily 09/10/2017 09/14/2017 Inactive Levemir FlexTouch U-100 Insulin 100 unit/mL (3 mL) subcutaneous pen RxNorm: 391636 10 Unit(s) daily 09/09/2017 09/15/2017 Inactive lisinopril 10 mg tablet RxNorm: 991534 1 Tablet(s) PO daily 09/09/2017 05/16/2018 Inactive Duragesic 75 mcg/hr transdermal patch RxNorm: 456023 1 Patch TD Q72H 09/09/2017 09/19/2017 Inactive nystatin 100,000 unit/gram topical cream RxNorm: 583403 1 Gram(s) TOP TID until healed to gaulding 09/06/2017 01/03/2018 Inactive nystatin 100,000 unit/gram topical cream RxNorm: 384276 1 Gram(s) TOP TID until healed to gaulding 09/06/2017 09/05/2017 Inactive hydrocodone 10 mg-acetaminophen 325 mg tablet RxNorm: 283041 2 Tablet(s) PO scheduled TID as needed 08/31/2017 09/14/2017 Inactive Not to exceed 3gm/24hr acetaminophen fentanyl 100 mcg/hr transdermal patch RxNorm: 305141 1 Patch TD Q72H 08/24/2017 09/19/2017 Inactive fentanyl 50 mcg/hr transdermal patch RxNorm: 330249 1 Patch TD Q72H 08/24/2017 09/08/2017 Inactive fentanyl 25 mcg/hr transdermal patch RxNorm: 565402 1 Patch TD Q72H 08/24/2017 08/24/2017 Inactive hyoscyamine 0.125 mg disintegrating tablet RxNorm: 9549222 Tablet(s) 1-2 Tablet(s) PO Q8 as needed 08/23/2017 09/14/2017 Inactive hydrocodone 10 mg-acetaminophen 325 mg tablet RxNorm: 025134 1 Tablet(s) PO scheduled TID et Q6 hours as needed 08/18/2017 08/30/2017 Inactive Not to exceed 3gm/24hr acetaminophen hydrochlorothiazide 25 mg tablet RxNorm: 006968 GIVE 1 TABLET VIA PEG TUBE ONCE DAILY 08/17/2017 02/12/2018 Inactive Generic For:HYDRODIURIL 25 MG TABLET 08/17/2017 9:01:54 AM08/11/2017 10:12:00 AM lorazepam 0.5 mg tablet RxNorm: 756757 1/2 Tablet(s) PO BID 08/03/2017 09/14/2017 Inactive fentanyl 100 mcg/hr transdermal patch RxNorm: 191302 1 Patch TD Q72H 07/26/2017 08/23/2017 Inactive fentanyl 25 mcg/hr transdermal patch RxNorm: 393662 1 Patch TD Q72H 07/26/2017 08/23/2017 Inactive hydrocodone 10 mg-acetaminophen 325 mg tablet RxNorm: 706766 1 Tablet(s) PO scheduled TID et Q6 hours as needed 07/16/2017 08/14/2017 Inactive Not to exceed 3gm/24hr acetaminophen hyoscyamine 0.125 mg disintegrating tablet RxNorm: 6072750 Tablet(s) 1-2 Tablet(s) PO Q8 as needed 07/13/2017 08/01/2017 Inactive baclofen 10 mg tablet RxNorm: 389468 TAKE 1 TABLET THREE TIMES DAILY VIA STOMACH TUBE 07/12/2017 10/06/2017 Inactive 07/12/2017 9:04:08 AM N O T I C E Last quantity doesn't match original quantity lorazepam 0.5 mg tablet RxNorm: 569194 1/2 Tablet(s) PO BID 07/02/2017 08/02/2017 Inactive fentanyl 100 mcg/hr transdermal patch RxNorm: 263348 1 Patch TD Q72H 06/28/2017 07/25/2017 Inactive fentanyl 25 mcg/hr transdermal patch RxNorm: 967136 1 Patch TD Q72H 06/28/2017 07/25/2017 Inactive hyoscyamine 0.125 mg disintegrating tablet RxNorm: 2779995 Tablet(s) 1-2 Tablet(s) PO Q8 as needed 06/03/2017 06/22/2017 Inactive fentanyl 25 mcg/hr transdermal patch RxNorm: 010533 1 Patch TD Q72H 05/26/2017 06/24/2017 Inactive Levemir FlexTouch U-100 Insulin 100 unit/mL (3 mL) subcutaneous pen RxNorm: 879304 20 Unit(s) SQ BID 05/26/2017 09/08/2017 Inactive fentanyl 100 mcg/hr transdermal patch RxNorm: 683233 1 Patch TD Q72H 05/26/2017 06/24/2017 Inactive hydrocodone 10 mg-acetaminophen 325 mg tablet RxNorm: 885245 1 Tablet(s) PO scheduled BID et Q6 hours as needed 05/12/2017 05/11/2017 Inactive hydrocodone 10 mg-acetaminophen 325 mg tablet RxNorm: 352426 1 Tablet(s) PO scheduled TID et Q6 hours as needed 05/12/2017 06/10/2017 Inactive Not to exceed 3gm/24hr acetaminophen docusate sodium 100 mg tablet RxNorm: 8795073 1 Tablet(s) PO BID as needed if no bowel movement 05/10/2017 05/09/2017 Inactive lisinopril 20 mg tablet RxNorm: 461860 1 Tablet(s) PO daily 05/10/2017 09/08/2017 Inactive docusate sodium 100 mg tablet RxNorm: 9498304 1 Tablet(s) PO BID as needed if no bowel movement 05/10/2017 09/14/2017 Inactive fentanyl 25 mcg/hr transdermal patch RxNorm: 190363 1 Patch TD Q72H 05/03/2017 05/25/2017 Inactive lorazepam 0.5 mg tablet RxNorm: 616899 1/2 Tablet(s) PO BID 05/03/2017 07/01/2017 Inactive fentanyl 100 mcg/hr transdermal patch RxNorm: 882601 1 Patch TD Q72H 04/27/2017 05/25/2017 Inactive carvedilol 3.125 mg tablet RxNorm: 541937 Tablet(s) GIVE 1 TABLET VIA PEG TUBE DAILY 04/15/2017 10/21/2017 Inactive Levemir FlexTouch 100 unit/mL (3 mL) subcutaneous insulin pen RxNorm: 859857 10 Unit(s) SQ BID 04/15/2017 2017 Inactive hyoscyamine 0.125 mg disintegrating tablet RxNorm: 1771739 1-2 Tablet(s) PO Q8 as needed 04/14/2017 05/03/2017 Inactive hydrocodone 10 mg-acetaminophen 325 mg tablet RxNorm: 603850 1 Tablet(s) PO scheduled BID et Q6 hours as needed 04/13/2017 05/02/2017 Inactive baclofen 10 mg tablet RxNorm: 895000 TAKE 1 TABLET THREE TIMES DAILY VIA STOMACH TUBE 04/08/2017 05/22/2017 Inactive 04/08/2017 9:32:07 AM fentanyl 25 mcg/hr transdermal patch RxNorm: 653112 1 Patch TD Q72H 04/05/2017 05/02/2017 Inactive lidocaine 10 mg/mL (1 %) injection solution RxNorm: 7388263 1 Milliliter(s) Inj daily Mix with rocephin 03/31/2017 03/30/2017 Inactive Pt resides at [facility] lidocaine 10 mg/mL (1 %) injection solution RxNorm: 2934588 1 Milliliter(s) Inj daily Mix with rocephin 03/31/2017 04/06/2017 Inactive Pt resides at [facility] fentanyl 100 mcg/hr transdermal patch RxNorm: 233596 1 Patch TD Q72H 03/29/2017 04/26/2017 Inactive nystatin 100,000 unit/gram topical powder RxNorm: 813746 APPLY UNDER BREASTS TWICE DAILY FOR YEAST SKIN INFECTION AND APPLY TO UNDERARM AND ABDOMINAL FOLDS AND PERIAREA TWICE DAILY 03/29/2017 03/28/2017 Inactive 03/27/2017 9:12:50 AM nystatin 100,000 unit/gram topical powder RxNorm: 071982 APPLY UNDER BREASTS TWICE DAILY FOR YEAST SKIN INFECTION AND APPLY TO UNDERARM AND ABDOMINAL FOLDS AND PERIAREA TWICE DAILY 03/29/2017 09/14/2017 Inactive 03/29/2017 9:42:55 AM03/27/2017 9:12:50 AM hyoscyamine 0.125 mg disintegrating tablet RxNorm: 0115126 1-2 Tablet(s) PO Q8 as needed 03/08/2017 03/27/2017 Inactive fentanyl 25 mcg/hr transdermal patch RxNorm: 038689 1 Patch TD Q72H 03/02/2017 03/31/2017 Inactive hydrocodone 10 mg-acetaminophen 325 mg tablet RxNorm: 093589 1 Tablet(s) PO scheduled BID et Q6 hours as needed 02/17/2017 03/18/2017 Inactive fentanyl 100 mcg/hr transdermal patch RxNorm: 318284 1 Patch TD Q72H 02/17/2017 03/18/2017 Inactive Lexapro 10 mg tablet RxNorm: 317940 1 Tablet(s) PO daily 02/05/2017 04/14/2017 Inactive Lexapro 10 mg tablet RxNorm: 922814 1 Tablet(s) PO daily 02/05/2017 02/04/2017 Inactive fentanyl 25 mcg/hr transdermal patch RxNorm: 097011 1 Patch TD Q72H 02/04/2017 03/01/2017 Inactive cyanocobalamin (vit B-12) 1,000 mcg tablet RxNorm: 875555 1 Tablet(s) PO daily 01/18/2017 12/13/2017 Inactive hyoscyamine 0.125 mg disintegrating tablet RxNorm: 4858068 Tablet(s) 1-2 Tablet(s) PO Q8 as needed 01/18/2017 02/06/2017 Inactive baclofen 10 mg tablet RxNorm: 599016 TAKE 1 TABLET THREE TIMES DAILY VIA STOMACH TUBE 01/04/2017 02/17/2017 Inactive 01/04/2017 9:25:18 AM fentanyl 100 mcg/hr transdermal patch RxNorm: 877292 1 Patch TD Q72H 12/25/2016 01/23/2017 Inactive hydrochlorothiazide 25 mg tablet RxNorm: 806344 Tablet(s) GIVE 1 TABLET VIA PEG TUBE ONCE A DAY 12/14/2016 07/11/2017 Inactive fentanyl 100 mcg/hr transdermal patch RxNorm: 567020 1 Patch TD Q72H 11/25/2016 12/24/2016 Inactive hyoscyamine 0.125 mg disintegrating tablet RxNorm: 7446941 Tablet(s) 1-2 Tablet(s) PO Q8 as needed 11/25/2016 12/14/2016 Inactive nystatin 100,000 unit/gram topical powder RxNorm: 540195 APPLY UNDER BREASTS TWICE DAILY FOR YEAST SKIN INFECTION AND APPLY TO UNDERARM AND ABDOMINAL FOLDS AND PERIAREA TWICE DAILY 11/24/2016 01/22/2017 Inactive 11/24/2016 9:34:02 AM hydrocodone 10 mg-acetaminophen 325 mg tablet RxNorm: 339064 1 Tablet(s) PO scheduled BID et Q6 hours as needed 11/02/2016 12/01/2016 Inactive cyanocobalamin (vit B-12) 1,000 mcg tablet RxNorm: 690283 1 Tablet(s) PO daily 11/02/2016 01/17/2017 Inactive hyoscyamine 0.125 mg disintegrating tablet RxNorm: 4753056 1-2 Tablet(s) PO Q8 as needed 10/19/2016 11/24/2016 Inactive fentanyl 100 mcg/hr transdermal patch RxNorm: 540371 1 Patch TD Q72H 10/13/2016 11/11/2016 Inactive hydrocodone 10 mg-acetaminophen 325 mg tablet RxNorm: 183542 1 Tablet(s) PO scheduled BID et Q6 hours as needed 10/05/2016 11/01/2016 Inactive baclofen 10 mg tablet RxNorm: 695877 TAKE 1 TABLET THREE TIMES DAILY VIA STOMACH TUBE 10/01/2016 11/14/2016 Inactive 10/01/2016 9:24:37 AM carvedilol 3.125 mg tablet RxNorm: 618298 GIVE 1 TABLET VIA PEG TUBE 2 TIMES A DAY 09/30/2016 12/28/2016 Inactive Generic For:COREG 3.125MG 09/30/2016 1:12:28 PM09/25/2016 9:06:11 AM Probiotic Blend 2 million cell-50 mg capsule RxNorm: 1 Capsule(s) PO BID 09/17/2016 09/23/2016 Inactive Keflex 500 mg capsule RxNorm: 988474 1 Capsule(s) PO TID 09/17/2016 09/23/2016 Inactive hyoscyamine 0.125 mg/5 mL oral elixir RxNorm: 1930431 5 Milliliter(s) PO TID 09/08/2016 09/17/2016 Inactive hyoscyamine 0.125 mg/5 mL oral elixir RxNorm: 9536582 5 Milliliter(s) PO TID 09/08/2016 09/07/2016 Inactive hyoscyamine 0.125 mg disintegrating tablet RxNorm: 0687855 1-2 Tablet(s) PO Q8 as needed 09/07/2016 10/18/2016 Inactive fentanyl 100 mcg/hr transdermal patch RxNorm: 755934 1 Patch TD Q72H 09/01/2016 09/30/2016 Inactive ranitidine 150 mg tablet RxNorm: 305969 1 Tablet(s) PO BID 08/25/2016 No Stop Date Active hydrocodone 10 mg-acetaminophen 325 mg tablet RxNorm: 759534 1 Tablet(s) PO scheduled BID et Q6 hours as needed 08/24/2016 09/22/2016 Inactive cyanocobalamin (vit B-12) 1,000 mcg tablet RxNorm: 077545 1 Tablet(s) PO daily 08/12/2016 11/01/2016 Inactive cyanocobalamin (vit B-12) 1,000 mcg tablet RxNorm: 812455 1 Tablet(s) PO daily 08/12/2016 08/11/2016 Inactive hydrocodone 10 mg-acetaminophen 325 mg tablet RxNorm: 672095 1-2 Tablet(s) PO Q6 as needed 08/03/2016 08/17/2016 Inactive fentanyl 100 mcg/hr transdermal patch RxNorm: 633839 1 Patch TD Q72H 08/03/2016 08/31/2016 Inactive nystatin 100,000 unit/gram topical powder RxNorm: 059228 APPLY UNDER BREASTS TWICE DAILY FOR YEAST SKIN INFECTION AND APPLY TO UNDERARM AND ABDOMINAL FOLDS AND PERIAREA TWICE DAILY 07/17/2016 09/14/2016 Inactive 07/17/2016 3:56:54 PM fentanyl 100 mcg/hr transdermal patch RxNorm: 182608 1 Patch TD Q72H 07/15/2016 08/02/2016 Inactive lisinopril 20 mg tablet RxNorm: 471322 1 Tablet(s) PO daily 07/02/2016 03/28/2017 Inactive hydrocodone 10 mg-acetaminophen 325 mg tablet RxNorm: 451972 1-2 Tablet(s) PO Q6 as needed 07/01/2016 07/15/2016 Inactive Xarelto 20 mg tablet RxNorm: 9972279 Tablet(s) TAKE 1 TABLET VIA PEG TUBE AT BEDTIME 06/19/2016 04/14/2017 Inactive fentanyl 100 mcg/hr transdermal patch RxNorm: 025957 1 Patch TD Q72H 06/17/2016 07/14/2016 Inactive nystatin 100,000 unit/gram topical powder RxNorm: 600105 APPLY TO UNDER BREASTS TWICE DAILY FOR YEAST SKIN INFECTION AND APPLY TO UNDERARM AND ABDOMINAL FOLDS AND PERIAREA TWICE DAILY 06/15/2016 07/16/2016 Inactive Generic For:MYCOSTATIN 100,000 UNITS/GM PW 06/15/2016 12:28:26 PM fentanyl 100 mcg/hr transdermal patch RxNorm: 636503 1 Patch TD Q72H 06/05/2016 06/16/2016 Inactive hydrocodone 10 mg-acetaminophen 325 mg tablet RxNorm: 119801 1-2 Tablet(s) PO Q6 as needed 06/02/2016 06/16/2016 Inactive Probiotic Blend 2 million cell-50 mg capsule RxNorm: 1 Capsule(s) PO BID 05/13/2016 05/19/2016 Inactive nitrofurantoin 100 mg capsule RxNorm: 354593 1 Capsule(s) PO BID 05/13/2016 05/19/2016 Inactive nitrofurantoin 100 mg capsule RxNorm: 965127 1 Capsule(s) PO BID 05/13/2016 05/12/2016 Inactive fentanyl 75 mcg/hr transdermal patch RxNorm: 550573 1 Patch TD Q72H 05/13/2016 06/04/2016 Inactive Keflex 500 mg capsule RxNorm: 887442 1 Capsule(s) PO TID 05/07/2016 05/13/2016 Inactive Patient at [facility] Keflex 500 mg capsule RxNorm: 832737 1 Capsule(s) PO TID 05/07/2016 05/06/2016 Inactive hydrocodone 10 mg-acetaminophen 325 mg tablet RxNorm: 053801 1-2 Tablet(s) PO Q6 as needed 05/04/2016 06/01/2016 Inactive hydrochlorothiazide 25 mg tablet RxNorm: 725405 Tablet(s) GIVE 1 TABLET VIA PEG TUBE ONCE A DAY 04/29/2016 11/24/2016 Inactive hydrochlorothiazide 25 mg tablet RxNorm: 554462 GIVE 1 TABLET VIA PEG TUBE ONCE A DAY 04/22/2016 04/28/2016 Inactive Generic For:HYDRODIURIL 25 MG TABLET refill request fentanyl 75 mcg/hr transdermal patch RxNorm: 850413 1 Patch TD Q72H 04/17/2016 05/12/2016 Inactive Xarelto 20 mg tablet RxNorm: 9408366 TAKE 1 TABLET VIA PEG TUBE AT BEDTIME 04/16/2016 06/14/2016 Inactive 04/16/2016 9:08:52 AM citalopram 40 mg tablet RxNorm: 031128 1 Tablet(s) PO daily 04/02/2016 02/25/2017 Inactive citalopram 40 mg tablet RxNorm: 116064 1 Tablet(s) PO daily 03/27/2016 04/01/2016 Inactive hydrocodone 10 mg-acetaminophen 325 mg tablet RxNorm: 568240 1-2 Tablet(s) PO Q6 as needed 03/27/2016 04/25/2016 Inactive fentanyl 75 mcg/hr transdermal patch RxNorm: 700720 1 Patch TD Q72H 03/18/2016 04/16/2016 Inactive hydrocodone 10 mg-acetaminophen 325 mg tablet RxNorm: 949027 1-2 Tablet(s) PO Q6 as needed 03/11/2016 03/26/2016 Inactive citalopram 40 mg tablet RxNorm: 735240 1 Tablet(s) PO daily 03/04/2016 03/26/2016 Inactive Levemir FlexTouch U-100 Insulin 100 unit/mL (3 mL) subcutaneous pen RxNorm: 398841 20 Unit(s) SQ BID 03/02/2016 09/27/2016 Inactive lisinopril 20 mg tablet RxNorm: 134602 1 Tablet(s) PO daily 02/25/2016 07/01/2016 Inactive Ativan 0.5 mg tablet RxNorm: 777305 1 Tablet(s) PO Q4H as needed 02/18/2016 04/14/2017 Inactive Xarelto 20 mg tablet RxNorm: 6181199 TAKE 1 TABLET VIA PEG TUBE AT BEDTIME 02/12/2016 04/11/2016 Inactive 02/12/2016 9:08:22 AM hydrocodone 10 mg-acetaminophen 325 mg tablet RxNorm: 525493 1-2 Tablet(s) PO Q6 as needed 02/12/2016 03/10/2016 Inactive fentanyl 75 mcg/hr transdermal patch RxNorm: 612952 1 Patch TD Q72H 02/11/2016 03/11/2016 Inactive citalopram 20 mg tablet RxNorm: 768986 1 Tablet(s) PO daily 01/28/2016 03/03/2016 Inactive fentanyl 75 mcg/hr transdermal patch RxNorm: 210806 1 TD Q72H 01/17/2016 02/10/2016 Inactive hydrocodone 10 mg-acetaminophen 325 mg tablet RxNorm: 379295 1-2 Tablet(s) PO Q6 as needed 01/07/2016 02/05/2016 Inactive fentanyl 50 mcg/hr transdermal patch RxNorm: 022418 1 TD Q72H 01/01/2016 01/16/2016 Inactive fentanyl 50 mcg/hr transdermal patch RxNorm: 823630 1 TD q 3 days 12/26/2015 12/31/2015 Inactive Xarelto 20 mg tablet RxNorm: 8907615 TAKE 1 TABLET VIA PEG TUBE AT BEDTIME 12/17/2015 02/11/2016 Inactive 12/16/2015 3:27:57 PM12/14/2015 9:45:17 AM hydrocodone 10 mg-acetaminophen 325 mg tablet RxNorm: 353254 1-2 Tablet(s) PO Q6 as needed 12/06/2015 01/04/2016 Inactive fentanyl 50 mcg/hr transdermal patch RxNorm: 310484 1 TD q 3 days 12/06/2015 12/25/2015 Inactive fentanyl 25 mcg/hr transdermal patch RxNorm: 348498 1 TD q 3 days 11/18/2015 12/05/2015 Inactive Zithromax Z-Eliu 250 mg tablet RxNorm: 170716 1 Tablet(s) PO UD 10/09/2015 02/26/2016 Inactive z pack as directed- please write out instructions- pt at F nystatin 100,000 unit/gram topical powder RxNorm: 879763 APPLY TO UNDER BREASTS TWICE DAILY FOR YEAST SKIN INFECTION AND APPLY TO UNDERARM AND ABDOMINAL FOLDS AND PERIAREA TWICE DAILY 10/07/2015 12/05/2015 Inactive Generic For:MYCOSTATIN 100,000 UNITS/GM PW 10/05/2015 12:07:35 PM fentanyl 25 mcg/hr transdermal patch RxNorm: 100778 1 TD q 3 days 10/03/2015 11/01/2015 Inactive fentanyl 25 mcg/hr transdermal patch RxNorm: 314782 1 TD q 3 days 09/27/2015 10/02/2015 Inactive fentanyl 25 mcg/hr transdermal patch RxNorm: 241589 1 TD q 3 days 09/17/2015 09/26/2015 Inactive fentanyl 25 mcg/hr transdermal patch RxNorm: 159358 1 TD q 3 days 08/30/2015 09/16/2015 Inactive hydrocodone 5 mg-acetaminophen 325 mg tablet RxNorm: 197856 1 Tablet(s) PO Q6 as needed 08/30/2015 09/28/2015 Inactive Diflucan 100 mg tablet RxNorm: 251508 1 Tablet(s) Miscellaneous per peg daily 07/29/2015 08/04/2015 Inactive fentanyl 25 mcg/hr transdermal patch RxNorm: 200290 1 TD q 3 days 07/18/2015 08/29/2015 Inactive hydrocodone 5 mg-acetaminophen 325 mg tablet RxNorm: 495622 1 Tablet(s) PO Q6 as needed 07/18/2015 08/29/2015 Inactive Diflucan 100 mg tablet RxNorm: 841569 1 Tablet(s) Miscellaneous per peg daily 06/17/2015 06/23/2015 Inactive Senna-S 8.6 mg-50 mg tablet RxNorm: 726605 1 Tablet(s) PO daily as needed constipation No Start Date Active Dulcolax (bisacodyl) 10 mg rectal suppository RxNorm: 521760 1 Suppository RTL daily as needed constipation No Start Date Active polyethylene glycol 3350 17 gram/dose oral powder RxNorm: 652761 17 Gram(s) PO daily as needed constipation No Start Date Active baclofen 10 mg tablet RxNorm: 909299 1 Tablet(s) PO TID No Start Date 09/30/2016 Inactive Ativan 0.5 mg tablet RxNorm: 647125 1 Tablet(s) PO Q4H as needed No Start Date 02/17/2016 Inactive ranitidine 150 mg tablet RxNorm: 144576 1 Tablet(s) PO daily No Start Date 08/24/2016 Inactive carvedilol 3.125 mg tablet RxNorm: 720979 1 Tablet(s) PO daily No Start Date 09/29/2016 Inactive citalopram 40 mg tablet RxNorm: 570851 1 Tablet(s) PO daily No Start Date 01/27/2016 Inactive Probiotic Blend oral RxNorm: oral No Start Date 05/12/2016 Inactive hydrochlorothiazide 25 mg tablet RxNorm: 856620 1 Tablet(s) PO daily No Start Date 04/21/2016 Inactive albuterol sulfate concentrate 5 mg/mL(0.5 %) solution for nebulization RxNorm: 402313 1 Vial INH daily as needed congestion No Start Date 03/17/2018 Inactive Levemir FlexTouch 100 unit/mL (3 mL) subcutaneous insulin pen RxNorm: 910885 10 Unit(s) SQ BID No Start Date 03/01/2016 Inactive Zithromax Z-Eliu 250 mg tablet RxNorm: 965663 1 Tablet(s) PO UD No Start Date 10/08/2015 Inactive z pack as directed- please write out instructions- pt at F nystatin 100,000 unit/gram topical powder RxNorm: 322218 Gram(s) TOP BID as needed No Start Date 10/06/2015 Inactive pravastatin 40 mg tablet RxNorm: 790351 Tablet(s) PO daily No Start Date 04/14/2017 Inactive lorazepam 0.5 mg tablet RxNorm: 745248 1/2 Tablet(s) PO BID No Start Date 05/02/2017 Inactive Xarelto 20 mg tablet RxNorm: 5434127 1 Tablet(s) PO daily No Start Date 12/16/2015 Inactive fentanyl 25 mcg/hr transdermal patch RxNorm: 328393 1 TD q 3 days No Start Date 07/17/2015 Inactive lisinopril 20 mg tablet RxNorm: 628669 1 Tablet(s) PO daily No Start Date 02/24/2016 Inactive hydrocodone 5 mg-acetaminophen 325 mg tablet RxNorm: 810084 1 Tablet(s) PO Q6 as needed No Start Date 07/17/2015 Inactive citalopram 40 mg tablet RxNorm: 392528 1 Tablet(s) PO daily No Start Date 03/03/2016 Inactive hyoscyamine 0.125 mg disintegrating tablet RxNorm: 8462197 1-2 Tablet(s) PO Q8 as needed No [...] Code Item Item Code Result Date %Hba1C Ygc718 % HbA1c 91618- 6 5.5 % 05/18/2018 %Hba1C Enc825 Gluc Ave 111 mg/dL 05/18/2018 Cbc With [...] 32.3 pg 05/18/2018 Cbc With Differential Ord2 [place]% 4.9 % 05/18/2018 Cbc With Differential Ord2 [...] 1.81 K/ul 05/18/2018 Cbc With Differential Ord2 [place] ABS# 0.4 K/ul 05/18/2018 Cbc With Differential Ord2 Eos ABS# 0.6 K/ul 05/18/2018 Cbc With Differential Ord2 Baso ABS# 0.0 K/ul 05/18/2018 Tsh Ord6 TSH (3rd IS) 0.85 uIU/mL 05/18/2018 Comp Metabolic Lxk850 NA 137 mEq/L 05/18/2018 Comp Metabolic Qdx749 K 4.2 mEq/L 05/18/2018 Comp Metabolic Idv114 CL 97 mEq/L 05/18/2018 Comp Metabolic Qfr669 CO2 34.0 mEq/L 05/18/2018 Comp Metabolic Oqd601 ANION GAP 10 05/18/2018 Comp Metabolic Nyk710 GLUCOSE 177 mg/dL 05/18/2018 Comp Metabolic Xql743 Creat 0.5 mg/dL 05/18/2018 Comp Metabolic Dmg687 eGFR 122 ml/min/1.73m2 05/18/2018 Comp Metabolic Uhe181 BUN 23 mg/dL 05/18/2018 Comp Metabolic Vlv273 B/C Ratio 43.4 Ratio 05/18/2018 Comp Metabolic Yay831 CALCIUM 9.2 mg/dL 05/18/2018 Comp Metabolic Ppl362 ALK PHOS 86 U/L 05/18/2018 Comp Metabolic Awd621 AST(SGOT) 14 U/L 05/18/2018 Comp Metabolic Qex422 ALT(SGPT) 9 U/L 05/18/2018 Comp Metabolic Msi236 BILI T 0.3 mg/dL 05/18/2018 Comp Metabolic Kup837 ALBUMIN 3.7 g/dL 05/18/2018 Comp Metabolic Rjb969 TPRO 6.2 g/dL 05/18/2018 Comp Metabolic Fye727 GLOB 2.6 g/dL 05/18/2018 Comp Metabolic Kcv749 A/G Ratio 1.4 Ratio 05/18/2018 Comp Metabolic Eeu714 Osmo 282 mOsmo 05/18/2018 A1C Frequency Wlu252 A1CF 29425-4 Last [facility] [facility] [place]: 02-14-2018 05/10/2018 Cbc With Differential [...] 30.7 pg 02/14/2018 Cbc With Differential Ord2 [place]% 7.4 % 02/14/2018 Cbc With Differential Ord2 [...] 2.14 K/ul 02/14/2018 Cbc With Differential Ord2 [place] ABS# 0.5 K/ul 02/14/2018 Cbc With Differential Ord2 Eos ABS# 0.3 K/ul 02/14/2018 Cbc With Differential Ord2 Baso ABS# 0.0 K/ul 02/14/2018 Comp Metabolic Esr053 NA 142 mEq/L 02/14/2018 Comp Metabolic Jft071 K 4.5 mEq/L 02/14/2018 Comp Metabolic Hhn231 CL 97 mEq/L 02/14/2018 Comp Metabolic Ndb201 CO2 41.0 mEq/L 02/14/2018 Comp Metabolic Uqz388 ANION GAP 9 02/14/2018 Comp Metabolic Zvm366 GLUCOSE 111 mg/dL 02/14/2018 Comp Metabolic Ysn387 Creat 0.6 mg/dL 02/14/2018 Comp Metabolic Bnk875 eGFR 108 ml/min/1.73m2 02/14/2018 Comp Metabolic Hsm085 BUN 32 mg/dL 02/14/2018 Comp Metabolic Ikw102 B/C Ratio 54.2 Ratio 02/14/2018 Comp Metabolic Mdq827 CALCIUM 8.9 mg/dL 02/14/2018 Comp Metabolic Hfg386 ALK PHOS 81 U/L 02/14/2018 Comp Metabolic Aci871 AST(SGOT) 14 U/L 02/14/2018 Comp Metabolic Hbs749 ALT(SGPT) 11 U/L 02/14/2018 Comp Metabolic Usw309 BILI T 0.3 mg/dL 02/14/2018 Comp Metabolic Txg418 ALBUMIN 3.4 g/dL 02/14/2018 Comp Metabolic Tet211 TPRO 6.3 g/dL 02/14/2018 Comp Metabolic Axh666 GLOB 2.9 g/dL 02/14/2018 Comp Metabolic Tou441 A/G Ratio 1.2 Ratio 02/14/2018 Comp Metabolic Dql053 Osmo 291 mOsmo 02/14/2018 %Hba1C Ukr711 % HbA1c 22231- 6 5.5 % 02/14/2018 %Hba1C Dfj942 Gluc Ave 111 mg/dL 02/14/2018 Prealbumin 412769 PREALBUMIN 27 mg/dL 11/24/2017 %Hba1C Wok050 % HbA1c 63152- 6 5.5 % 11/04/2017 %Hba1C Luz183 Gluc Ave 111 mg/dL 11/04/2017 Culture Urine [id number] URINE CULTURE SEE NOTES 10/04/2017 Culture Urine [id number] Continued Results 10/04/2017 Urine Culture Ucult Complete [...] Ord28 U-Com Culture to follow 10/01/2017 B12 Omh534 B12 >1500.00 pg/ml 02/19/2017 Cbc With Differential [...] 31.5 pg 02/02/2017 Cbc With Differential Ord2 [place]% 8.3 % 02/02/2017 Cbc With Differential Ord2 [...] 2.28 K/ul 02/02/2017 Cbc With Differential Ord2 [place] ABS# 0.6 K/ul 02/02/2017 Cbc With Differential Ord2 Eos ABS# 0.4 K/ul 02/02/2017 Cbc With Differential Ord2 Baso ABS# 0.0 K/ul 02/02/2017 %Hba1C Mbd690 % HbA1c 53901- 6 5.2 % 02/02/2017 %Hba1C Fto995 Gluc Ave 103 mg/dL 02/02/2017 Comp Metabolic Ims657 NA 138 mEq/L 02/02/2017 Comp Metabolic Bfx912 K 4.5 mEq/L 02/02/2017 Comp Metabolic Rdq102 CL 98 mEq/L 02/02/2017 Comp Metabolic Ntd063 CO2 37.0 mEq/L 02/02/2017 Comp Metabolic Ssh316 ANION GAP 8 02/02/2017 Comp Metabolic Jjd694 GLUCOSE 94 mg/dL 02/02/2017 Comp Metabolic Emz522 Creat 0.7 mg/dL 02/02/2017 Comp Metabolic Yss369 eGFR 88 ml/min/1.73m2 02/02/2017 Comp Metabolic Amg946 BUN 36 mg/dL 02/02/2017 Comp Metabolic Cdo232 B/C Ratio 50.7 Ratio 02/02/2017 Comp Metabolic Wyo632 CALCIUM 9.0 mg/dL 02/02/2017 Comp Metabolic Ouv568 ALK PHOS 78 U/L 02/02/2017 Comp Metabolic Tly590 AST(SGOT) 22 U/L 02/02/2017 Comp Metabolic Has275 ALT(SGPT) 28 U/L 02/02/2017 Comp Metabolic Xqj935 BILI T 0.3 mg/dL 02/02/2017 Comp Metabolic Qcq988 ALBUMIN 3.3 g/dL 02/02/2017 Comp Metabolic Kkq708 TPRO 5.9 g/dL 02/02/2017 Comp Metabolic Qtp709 GLOB 2.6 g/dL 02/02/2017 Comp Metabolic Tqw119 A/G Ratio 1.3 Ratio 02/02/2017 Comp Metabolic Vor403 Osmo 284 mOsmo 02/02/2017 %Hba1C Mzk078 % HbA1c 22793- 6 5.0 % 10/29/2016 %Hba1C Sjx934 Gluc Ave 97 mg/dL 10/29/2016 Culture Urine [id number] URINE CULTURE SEE NOTES 09/21/2016 Culture Urine [id number] Continued Results 09/21/2016 Urine Culture Ucult Complete [...] 32.4 pg 07/30/2016 Cbc With Differential Ord2 [place]% 7.2 % 07/30/2016 Cbc With Differential Ord2 [...] 2.69 K/ul 07/30/2016 Cbc With Differential Ord2 [place] ABS# 0.5 K/ul 07/30/2016 Cbc With Differential Ord2 Eos ABS# 0.5 K/ul 07/30/2016 Cbc With Differential Ord2 Baso ABS# 0.0 K/ul 07/30/2016 Comp Metabolic Akh160 NA 141 mEq/L 07/30/2016 Comp Metabolic Qup687 K 4.3 mEq/L 07/30/2016 Comp Metabolic Jkw612 CL 100 mEq/L 07/30/2016 Comp Metabolic Bjv957 CO2 33.0 mEq/L 07/30/2016 Comp Metabolic Tdj017 ANION GAP 12 07/30/2016 Comp Metabolic Ccm542 GLUCOSE 64 mg/dL 07/30/2016 Comp Metabolic Gon792 Creat 0.5 mg/dL 07/30/2016 Comp Metabolic Kwx736 eGFR 126 ml/min/1.73m2 07/30/2016 Comp Metabolic Xfr354 BUN 25 mg/dL 07/30/2016 Comp Metabolic Cps027 B/C Ratio 48.1 Ratio 07/30/2016 Comp Metabolic Nvy035 CALCIUM 8.9 mg/dL 07/30/2016 Comp Metabolic Qdc420 ALK PHOS 90 U/L 07/30/2016 Comp Metabolic Goi015 AST(SGOT) 22 U/L 07/30/2016 Comp Metabolic Lpa068 ALT(SGPT) 36 U/L 07/30/2016 Comp Metabolic Hoy121 BILI T 0.3 mg/dL 07/30/2016 Comp Metabolic Sdz820 ALBUMIN 3.4 g/dL 07/30/2016 Comp Metabolic Dwj420 TPRO 6.0 g/dL 07/30/2016 Comp Metabolic Uke627 GLOB 2.7 g/dL 07/30/2016 Comp Metabolic Okk837 A/G Ratio 1.3 Ratio 07/30/2016 Comp Metabolic Kuw528 Osmo 284 mOsmo 07/30/2016 A1C Frequency Bgn603 A1CF 99859-7 Last [facility] [facility] [place]: 05-12-2016 07/30/2016 %Hba1C Iaz239 % HbA1c 87566- 6 5.2 % 05/12/2016 %Hba1C Sar604 Gluc Ave 103 mg/dL 05/12/2016 Culture Urine [id number] URINE CULTURE SEE NOTES 05/11/2016 Urine Culture [...] U-Com Culture to follow 05/06/2016 Culture Urine [id number] URINE CULTURE SEE NOTES 03/17/2016 Culture Urine [id number] Continued Results 03/17/2016 Urine Culture Ucult Complete [...] 32.0 pg 02/11/2016 Cbc With Differential Ord2 [place]% 9.1 % 02/11/2016 Cbc With Differential Ord2 [...] 2.59 K/ul 02/11/2016 Cbc With Differential Ord2 [place] ABS# 0.6 K/ul 02/11/2016 Cbc With Differential Ord2 Eos ABS# 0.3 K/ul 02/11/2016 Cbc With Differential Ord2 Baso ABS# 0.0 K/ul 02/11/2016 Comp Metabolic Uwq440 NA 137 mEq/L 02/11/2016 Comp Metabolic Deo940 K 4.4 mEq/L 02/11/2016 Comp Metabolic Jlt536 CL 100 mEq/L 02/11/2016 Comp Metabolic Bjd620 CO2 25.0 mEq/L 02/11/2016 Comp Metabolic Epo571 ANION GAP 16 02/11/2016 Comp Metabolic Wni970 GLUCOSE 99 mg/dL 02/11/2016 Comp Metabolic Nej407 Creat 0.6 mg/dL 02/11/2016 Comp Metabolic Miy815 eGFR 99 ml/min/1.73m2 02/11/2016 Comp Metabolic Ckm410 BUN 27 mg/dL 02/11/2016 Comp Metabolic Wcx925 B/C Ratio 42.2 Ratio 02/11/2016 Comp Metabolic Owj664 CALCIUM 9.2 mg/dL 02/11/2016 Comp Metabolic Jlt825 ALK PHOS 74 U/L 02/11/2016 Comp Metabolic Tce844 AST(SGOT) 24 U/L 02/11/2016 Comp Metabolic Ict118 ALT(SGPT) 26 U/L 02/11/2016 Comp Metabolic Xgl659 BILI T 0.5 mg/dL 02/11/2016 Comp Metabolic Piw836 ALBUMIN 3.5 g/dL 02/11/2016 Comp Metabolic Kjd967 TPRO 6.2 g/dL 02/11/2016 Comp Metabolic Peh678 GLOB 2.7 g/dL 02/11/2016 Comp Metabolic Vfv415 A/G Ratio 1.3 Ratio 02/11/2016 Comp Metabolic Oby176 Osmo 279 mOsmo 02/11/2016 Review of Systems [...] 1: 128/86 Code: 8480-6 BMI: 31.4 Code: 62542-4 Heart Rate 1: 72 bpm Height: 5'1" Weight: 166 lbs 06/17/2015 Blood Pressure 1: 110/78 Code: 8480-6 BMI: 33.3 Code: 60919-3 Heart Rate 1: 74 bpm Height: 5'1" [...] Present Encounters Encounter Performer Location Codes Date ([id number]) 35869 EST. PATIENT, LEVEL IV Diagnosis: Essential (primary) hypertension[ICD10: I10] Diagnosis: Chronic pain syndrome[ICD10: G89.4] Diagnosis: Type 2 diabetes mellitus without complications[ICD10: E11.9] Diagnosis: Dysphagia following cerebral infarction[ICD10: I69.391] Carlyn Everett MD, [facility] CPT-4: 19838 05/17/2018 ([id number]) 75329 EST. PATIENT, LEVEL IV Diagnosis: Cough[ICD10: R05] Diagnosis: Pneumonia, unspecified organism[ICD10: J18.9] Diagnosis: Pain in right knee[ICD10: M25.561] Carlyn Everett MD, [facility] CPT- 4: 49220 03/18/2018 ([id number]) 99968 EST. PATIENT, LEVEL IV Diagnosis: Type 2 diabetes mellitus without complications[ICD10: E11.9] Diagnosis: Essential (primary) hypertension[ICD10: I10] Diagnosis: Chronic pain syndrome[ICD10: G89.4] Carlyn Everett MD, [facility] CPT-4: 42304 01/07/2018 ([id number]) 90316 EST. PATIENT, LEVEL IV Diagnosis: Essential (primary) hypertension[ICD10: I10] Diagnosis: Type 2 diabetes mellitus without complications[ICD10: E11.9] Carlyn Everett MD, [facility] CPT-4: 40795 2017 ([id number]) 10394 EST. PATIENT, LEVEL IV Diagnosis: Type 2 diabetes mellitus with hyperglycemia[ICD10: E11.65] Diagnosis: Essential (primary) hypertension[ICD10: I10] Diagnosis: Pain in left shoulder[ICD10: M25.512] Diagnosis: Pain in right shoulder[ICD10: M25.511] Diagnosis: Pain in left knee[ICD10: M25.562] Diagnosis: Pain in right knee[ICD10: M25.561] Vonda Everett MD, [facility] CPT- 4: 52330 09/09/2017 [id number] EST. PATIENT, LEVEL IV Diagnosis: Essential (primary) hypertension[ICD10: I10] Diagnosis: Type 2 diabetes mellitus with hyperglycemia[ICD10: E11.65] Diagnosis: Low back pain[ICD10: M54.5] Sunitha Everett MD, [facility] CPT-4: 52016 06/08/2017 ([id number]) 10015 EST. PATIENT, LEVEL IV Diagnosis: Essential (primary) hypertension[ICD10: I10] Diagnosis: Type 2 diabetes mellitus with hyperglycemia[ICD10: E11.65] Diagnosis: Low back pain[ICD10: M54.5] Sunitha Everett MD, [facility] CPT-4: 76619 04/15/2017 ([id number]) 43554 EST. PATIENT, LEVEL IV Diagnosis: Essential (primary) hypertension[ICD10: I10] Diagnosis: Type 2 diabetes mellitus with hyperglycemia[ICD10: E11.65] Diagnosis: Low back pain[ICD10: M54.5] Vonda Everett MD, [facility] CPT-4: 30418 02/16/2017 17134 EST. 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 CPT-4: 08288 11/09/2016 ([id number]) 16695 EST. 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 CPT- 4: 81101 06/17/2015 Plan of Care Planned Activity Notes [...] oral supplements 05/17/2018 Appointment: Carlyn Higginbotham WPtel: [facility] [address] (15 min) Moderate 05/17/2018 Patient Education: Patient Medication Summary Completed 05/17/2018 Patient Education: Hypertension Completed 05/17/2018 Patient Education: Diabetes Completed 05/17/2018 Appointment: Carlyn Higginbotham WPtel: [facility] [place] [address] [place] (15 min) Moderate 04/07/2018 Visit Plan: Pneumonia - Pt has been diagnosed with pneumonia by physical exam. A chest xray has been ordered as have antibiotics. The pt is aware of the diagnosis and the need for acute treatment of this illness. Right knee pain -xray knee-rx for voltaren gel 03/18/2018 Appointment: Carlyn Higginbotham WPtel: [address] [place] [phone] [place] (30 min) Complex 03/18/2018 Patient Education: Patient Medication Summary Completed 03/18/2018 Appointment: Carlyn Higginbotham WPtel: [address] [place] [phone] [place] (30 min) Complex 03/17/2018 Appointment: Carlyn Higginbotham WPtel: [phone] [place] [address] [place] (15 min) Moderate 03/10/2018 Appointment: Carlyn Higginbotham WPtel: [phone] [phone] [place] (15 min) Moderate 02/08/2018 Visit Plan: DM -decrease levemir to 4 units daily -monitor blood sugars PPU-ewyvdznpld-ch changes Chronic pain -well controlled with fentanyl patch -no changes at this time 01/07/2018 Appointment: Carlyn Higginbotham WPtel: [phone] [phone] [place] (15 min) Moderate 01/07/2018 [...] HS 2017 Appointment: Carlyn Higginbotham WPtel: [phone] [phone] [place] (15 min) Moderate 2017 Patient Education: [...] 175mcg. 09/09/2017 [facility]ment[phone] [facility] (15 min) Moderate 09/09/2017 Patient Education: [...] record. 06/08/2017 [phone] ([facility] min) Complex 06/08/2017 Patient Education: [...] of over-medication. 04/15/2017 Appointment: [phone] [facility] (30 min) Complex 04/15/2017 Patient Education: [...] today. 02/16/2017 Appointment: [facility] [phone] [facility] (15 min) Moderate 02/16/2017 Patient [...] any changes, questions, or concerns. 11/09/2016 Appointment: [facility] [phone] [facility] (30 min) Complex 11/09/2016 Patient Education: Patient Medication Summary Completed 11/09/2016 Care Plan: Referral Order SNOMED-CT : [id number] Pending 11/09/2016 Patient Education: Patient Medication Summary [...] Follow up weight in 1 month Neck pnci-yadaonkaibg-Zqee PT focus neck/upper body Right earache-cerumen removed with water pick today in the office 07/18/2015 Appointment: (30 min) Complex 07/18/2015 Patient Education: Patient Medication Summary Completed 07/18/2015 Patient Education: Obesity Completed 07/18/2015 Patient Education: .Cervicalgia Neck Pain Completed 07/18/2015 [phone] [facility] Referral Completed 06/25/2015 Visit Plan: Hypertension [...] normal liver response to medications. [facility] - left sided weakness, neck stiffness, upper extremity weakness Diabetes Mellitus - controlled - per family report - check labs this week, get report from and [facility]. I spent over an hour with the patient in direct contact. 06/17/2015 Appointment: Vonda Everett [facility] [phone] [facility] New Patient 06/17/2015 Patient Education: Patient Medication Summary Completed 06/17/2015 Patient Education: Obesity Completed 06/17/2015 Patient Education: Hypertension Completed 06/17/2015 Care Plan: Referral Order SNOMED-CT : [id number] Ordered 06/17/2015 Referral: Jorge Luis Carroll Referral Initiated Ref[facility] [phone] [facility] Referral Appointment Requested Instructions Comment . [...] normal liver response to medications. referral to [facility] therapy for [...] Add 1 scoop of whey protein from [facility] to 2 feedings per day [...] Follow up weight in 1 month Neck vcfw-kimnrzuodxf-Lsbe PT focus neck/upper body Right earache-cerumen removed [...] to 4 units daily -monitor blood sugars IKJ-frbvxnvvil-be changes Chronic pain -well controlled with fentanyl [...]
--- OUTSIDE RECORDS SUMMARY | 2018-08-09 11:08 | XMS REPORT | CCD ---
Author Author [facility] Organization [facility] Address [address] [place] [address] Phone Care Team Providers Care Requirements Analyst Name Role Phone PP Unavailable CCM Unavailable Summary Purpose Interface Exchange Insurance Providers Payer name Policy type / Coverage type Covered libertarian ID Effective Begin Date Effective End Date WPS Medicare Part B Medicare Part B [id number] Unknown Unknown [employer] Medicare Part B [id number] Unknown Unknown Family history Father Diagnosis Age At Onset Arthritis Unknown Hypertension Unknown Mother Diagnosis Age At Onset Diabetes mellitus Type 2 Unknown Depression Unknown Arthritis Unknown Stroke Unknown Hypertension Unknown Sister Diagnosis Age At Onset Colon cancer Unknown Social History Social History Element Codes Description Effective Dates Marital status Unknown Maurice 01/07/2018 Living arrangements Unknown Senior Living [facility] 04/15/2017 Number of children Unknown 3 06/17/2015 Employment Unknown Retired 06/17/[address]: 0635385 Quit over 10 years ago 15+ 06/17/[address]: 219235585 Never drinks alcohol 06/17/2015 Allergies, Adverse Reactions, [...] Start Date Stop Date Status Fill Instructions Voltaren 1 % topical gel RxNorm: 757524 APPLY 4 GRAMS TO RIGHT KNEE FOUR TIMES DAILY 06/13/2018 07/06/2018 Active Generic For:VOLTAREN GEL 1% 06/13/2018 10:59:02 AM hydrocodone 10 mg-acetaminophen 325 mg tablet RxNorm: 862321 2 Tablet(s) PO scheduled TID 06/07/2018 07/06/2018 Active Not to exceed 3gm/24hr acetaminophen fentanyl 100 mcg/hr transdermal patch RxNorm: 497124 1 Patch TD Q72H 06/03/2018 07/02/2018 Active Duragesic 75 mcg/hr transdermal patch RxNorm: 736949 1 Patch TD Q72H 06/03/2018 07/02/2018 Active hyoscyamine 0.125 mg disintegrating tablet RxNorm: 7004121 Tablet(s) Tablet(s) 1-2 Tablet(s) PO Q8 as needed 05/27/2018 No Stop Date Active lorazepam 0.5 mg tablet RxNorm: 306796 1 Tablet(s) PO BID and 1 tab q 6 hours prn 05/24/2018 No Stop Date Active hydrocodone 10 mg-acetaminophen 325 mg tablet RxNorm: 822949 2 Tablet(s) PO scheduled TID 05/24/2018 06/06/2018 Inactive Not to exceed 3gm/24hr acetaminophen citalopram 20 mg tablet RxNorm: 096383 1 Tablet(s) PO daily 05/17/2018 04/11/2019 Active hydrocodone 10 mg-acetaminophen 325 mg tablet RxNorm: 086020 2 Tablet(s) PO scheduled TID 04/19/2018 05/18/2018 Inactive Not to exceed 3gm/24hr acetaminophen lorazepam 0.5 mg tablet RxNorm: 925458 1 Tablet(s) PO BID and 1 tab q 6 hours prn 04/07/2018 05/23/2018 Inactive hyoscyamine 0.125 mg disintegrating tablet RxNorm: 9544226 Tablet(s) 1-2 Tablet(s) PO Q8 as needed 03/31/2018 05/26/2018 Inactive Duragesic 75 mcg/hr transdermal patch RxNorm: 802516 1 Patch TD Q72H 03/31/2018 04/29/2018 Inactive fentanyl 100 mcg/hr transdermal patch RxNorm: 723292 1 Patch TD Q72H 03/31/2018 04/29/2018 Inactive carvedilol 3.125 mg tablet RxNorm: 069706 Tablet(s) GIVE 1 TABLET VIA PEG TUBE 2 TIMES A DAY 03/30/2018 06/27/2018 Active Generic For:COREG 3.125MG 10/22/2017 9:23:30 AM Voltaren 1 % topical gel RxNorm: 657589 APPLY 4 GRAMS TO RIGHT KNEE FOUR TIMES DAILY 03/30/2018 04/22/2018 Inactive Generic For:VOLTAREN GEL 1% 03/30/2018 11:14:57 AM hydrocodone 10 mg-acetaminophen 325 mg tablet RxNorm: 304007 2 Tablet(s) PO scheduled TID 03/23/2018 04/18/2018 Inactive Not to exceed 3gm/24hr acetaminophen albuterol sulfate concentrate 5 mg/mL(0.5 %) solution for nebulization RxNorm: 147882 1 Vial Milliliter(s) INH TID PRN as needed congestion 03/18/2018 No Stop Date Active cefdinir 300 mg capsule RxNorm: 943961 1 Capsule(s) PO BID 03/18/2018 03/24/2018 Inactive Zithromax Z-Eliu 250 mg tablet RxNorm: 688828 Tablet(s) PO 03/18/2018 05/16/2018 Inactive Voltaren 1 % topical gel RxNorm: 440647 4 Gram(s) TOP QID 03/18/2018 03/29/2018 Inactive hydrochlorothiazide 25 mg tablet RxNorm: 382443 GIVE 1 TABLET VIA PEG TUBE ONCE DAILY 03/11/2018 09/06/2018 Active Generic For:HYDRODIURIL 25 MG TABLET 03/11/2018 9:15:32 AM fentanyl 100 mcg/hr transdermal patch RxNorm: 823816 1 Patch TD Q72H 03/02/2018 03/30/2018 Inactive Duragesic 75 mcg/hr transdermal patch RxNorm: 075716 1 Patch TD Q72H 03/02/2018 03/30/2018 Inactive hydrocodone 10 mg-acetaminophen 325 mg tablet RxNorm: 945635 2 Tablet(s) PO scheduled TID 02/18/2018 03/22/2018 Inactive Not to exceed 3gm/24hr acetaminophen hyoscyamine 0.125 mg disintegrating tablet RxNorm: 7640516 Tablet(s) 1-2 Tablet(s) PO Q8 as needed 02/08/2018 03/30/2018 Inactive fentanyl 100 mcg/hr transdermal patch RxNorm: 143979 1 Patch TD Q72H 02/04/2018 03/01/2018 Inactive hydrocodone 10 mg-acetaminophen 325 mg tablet RxNorm: 154038 2 Tablet(s) PO scheduled TID 02/04/2018 02/17/2018 Inactive Not to exceed 3gm/24hr acetaminophen Duragesic 75 mcg/hr transdermal patch RxNorm: 476624 1 Patch TD Q72H 02/04/2018 03/01/2018 Inactive Levemir FlexTouch U-100 Insulin 100 unit/mL (3 mL) subcutaneous pen RxNorm: 308635 4 Unit(s) SQ QHS 01/07/2018 No Stop Date Active Duragesic 75 mcg/hr transdermal patch RxNorm: 542657 1 Patch TD Q72H 01/07/2018 02/03/2018 Inactive fentanyl 100 mcg/hr transdermal patch RxNorm: 708380 1 Patch TD Q72H 01/07/2018 02/03/2018 Inactive hydrocodone 10 mg-acetaminophen 325 mg tablet RxNorm: 544978 2 Tablet(s) PO scheduled TID 01/05/2018 02/03/2018 Inactive Not to exceed 3gm/24hr acetaminophen hydrocodone 10 mg-acetaminophen 325 mg tablet RxNorm: 672659 2 Tablet(s) PO scheduled TID and 1 tab q 4 as needed 01/04/2018 01/04/2018 Inactive Not to exceed 3gm/24hr acetaminophen cyanocobalamin (vit B-12) 1,000 mcg tablet RxNorm: 580831 1 Tablet(s) PO daily 12/28/2017 11/22/2018 Active baclofen 10 mg tablet RxNorm: 607260 Tablet(s) TAKE 1 TABLET THREE TIMES DAILY VIA STOMACH TUBE 12/27/2017 05/25/2018 Inactive 10/07/2017 5:36:15 PM 10/07/2017 5:36:13 PM N O T I C E Last quantity doesn't match original quantity Duragesic 75 mcg/hr transdermal patch RxNorm: 809617 1 Patch TD Q72H 12/22/2017 01/06/2018 Inactive fentanyl 100 mcg/hr transdermal patch RxNorm: 901581 1 Patch TD Q72H 12/22/2017 01/06/2018 Inactive hydrocodone 10 mg-acetaminophen 325 mg tablet RxNorm: 515426 2 Tablet(s) PO scheduled TID and 1 tab q 4 as needed 12/20/2017 01/03/2018 Inactive Not to exceed 3gm/24hr acetaminophen hyoscyamine 0.125 mg disintegrating tablet RxNorm: 6822402 1-2 Tablet(s) PO Q8 as needed 12/14/2017 02/07/2018 Inactive Duragesic 75 mcg/hr transdermal patch RxNorm: 130593 1 Patch TD Q72H 12/06/2017 12/21/2017 Inactive fentanyl 100 mcg/hr transdermal patch RxNorm: 424167 1 Patch TD Q72H 12/06/2017 12/21/2017 Inactive hydrocodone 10 mg-acetaminophen 325 mg tablet RxNorm: 166982 2 Tablet(s) PO scheduled TID and 1 tab q 4 as needed 11/29/2017 12/19/2017 Inactive Not to exceed 3gm/24hr acetaminophen Duragesic 75 mcg/hr transdermal patch RxNorm: 623034 1 Patch TD Q72H 11/11/2017 12/05/2017 Inactive hydrocodone 10 mg-acetaminophen 325 mg tablet RxNorm: 860405 2 Tablet(s) PO scheduled TID and 1 tab q 4 as needed 11/09/2017 11/28/2017 Inactive Not to exceed 3gm/24hr acetaminophen Levemir FlexTouch U-100 Insulin 100 unit/mL (3 mL) subcutaneous pen RxNorm: 060193 8 Unit(s) SQ QHS 11/09/2017 01/06/2018 Inactive fentanyl 100 mcg/hr transdermal patch RxNorm: 450243 1 Patch TD Q72H 2017 12/05/2017 Inactive hyoscyamine 0.125 mg disintegrating tablet RxNorm: 6969743 1-2 Tablet(s) PO Q8 as needed 11/03/2017 12/13/2017 Inactive carvedilol 3.125 mg tablet RxNorm: 411700 GIVE 1 TABLET VIA PEG TUBE 2 TIMES A DAY 10/22/2017 01/19/2018 Inactive Generic For:COREG 3.125MG 10/22/2017 9:23:30 AM hydrocodone 10 mg-acetaminophen 325 mg tablet RxNorm: 613970 2 Tablet(s) PO scheduled TID and 1 tab q 4 as needed 10/22/2017 2017 Inactive Not to exceed 3gm/24hr acetaminophen fentanyl 100 mcg/hr transdermal patch RxNorm: 111909 1 Patch TD Q72H 10/20/2017 11/07/2017 Inactive Duragesic 75 mcg/hr transdermal patch RxNorm: 444978 1 Patch TD Q72H 10/20/2017 11/10/2017 Inactive lorazepam 0.5 mg tablet RxNorm: 585684 1 Tablet(s) PO BID and 1 tab q 6 hours prn 10/18/2017 No Stop Date Active baclofen 10 mg tablet RxNorm: 302911 TAKE 1 TABLET THREE TIMES DAILY VIA STOMACH TUBE 10/07/2017 12/26/2017 Inactive 10/07/2017 5:36:15 PM 10/07/2017 5:36:13 PM N O T I C E Last quantity doesn't match original quantity cranberry extract 500 mg tablet RxNorm: 4770929 1 Tablet(s) PO QAM 10/04/2017 01/31/2018 Inactive Cipro 500 mg tablet RxNorm: 322415 1 Tablet(s) PO BID 10/04/2017 10/03/2017 Inactive dc keflex hydrocodone 10 mg-acetaminophen 325 mg tablet RxNorm: 657462 2 Tablet(s) PO scheduled TID as needed 10/04/2017 10/21/2017 Inactive Not to exceed 3gm/24hr acetaminophen cranberry extract 500 mg tablet RxNorm: 5503696 1 Tablet(s) PO QAM 10/04/2017 10/03/2017 Inactive Cipro 500 mg tablet RxNorm: 535004 1 Tablet(s) PO BID 10/04/2017 10/10/2017 Inactive dc keflex Duragesic 75 mcg/hr transdermal patch RxNorm: 300075 1 Patch TD Q72H 09/20/2017 10/19/2017 Inactive fentanyl 100 mcg/hr transdermal patch RxNorm: 953275 1 Patch TD Q72H 09/20/2017 10/19/2017 Inactive hyoscyamine 0.125 mg disintegrating tablet RxNorm: 3548050 1 Tablet(s) PO TID and 1 Tablet Q4H prn increased secretions 09/15/2017 11/02/2017 Inactive hydrocodone 10 mg-acetaminophen 325 mg tablet RxNorm: 036506 2 Tablet(s) PO scheduled TID and 1-2 Tabs Q4H PRN pain 09/15/2017 10/03/2017 Inactive Not to exceed 3gm/24hr acetaminophen lorazepam 0.5 mg tablet RxNorm: 337265 1 Tablet(s) PO BID 09/15/2017 10/17/2017 Inactive Lexapro 10 mg tablet RxNorm: 099019 1 Tablet(s) PO daily 09/10/2017 09/14/2017 Inactive Levemir FlexTouch U-100 Insulin 100 unit/mL (3 mL) subcutaneous pen RxNorm: 041505 10 Unit(s) daily 09/09/2017 09/15/2017 Inactive lisinopril 10 mg tablet RxNorm: 962840 1 Tablet(s) PO daily 09/09/2017 05/16/2018 Inactive Duragesic 75 mcg/hr transdermal patch RxNorm: 041829 1 Patch TD Q72H 09/09/2017 09/19/2017 Inactive nystatin 100,000 unit/gram topical cream RxNorm: 925689 1 Gram(s) TOP TID until healed to gaulding 09/06/2017 01/03/2018 Inactive nystatin 100,000 unit/gram topical cream RxNorm: 461844 1 Gram(s) TOP TID until healed to gaulding 09/06/2017 09/05/2017 Inactive hydrocodone 10 mg-acetaminophen 325 mg tablet RxNorm: 661516 2 Tablet(s) PO scheduled TID as needed 08/31/2017 09/14/2017 Inactive Not to exceed 3gm/24hr acetaminophen fentanyl 100 mcg/hr transdermal patch RxNorm: 191069 1 Patch TD Q72H 08/24/2017 09/19/2017 Inactive fentanyl 50 mcg/hr transdermal patch RxNorm: 889768 1 Patch TD Q72H 08/24/2017 09/08/2017 Inactive fentanyl 25 mcg/hr transdermal patch RxNorm: 229388 1 Patch TD Q72H 08/24/2017 08/24/2017 Inactive hyoscyamine 0.125 mg disintegrating tablet RxNorm: 6473434 Tablet(s) 1-2 Tablet(s) PO Q8 as needed 08/23/2017 09/14/2017 Inactive hydrocodone 10 mg-acetaminophen 325 mg tablet RxNorm: 588364 1 Tablet(s) PO scheduled TID et Q6 hours as needed 08/18/2017 08/30/2017 Inactive Not to exceed 3gm/24hr acetaminophen hydrochlorothiazide 25 mg tablet RxNorm: 780361 GIVE 1 TABLET VIA PEG TUBE ONCE DAILY 08/17/2017 02/12/2018 Inactive Generic For:HYDRODIURIL 25 MG TABLET 08/17/2017 9:01:54 AM08/11/2017 10:12:00 AM lorazepam 0.5 mg tablet RxNorm: 120928 1/2 Tablet(s) PO BID 08/03/2017 09/14/2017 Inactive fentanyl 100 mcg/hr transdermal patch RxNorm: 630501 1 Patch TD Q72H 07/26/2017 08/23/2017 Inactive fentanyl 25 mcg/hr transdermal patch RxNorm: 059550 1 Patch TD Q72H 07/26/2017 08/23/2017 Inactive hydrocodone 10 mg-acetaminophen 325 mg tablet RxNorm: 856374 1 Tablet(s) PO scheduled TID et Q6 hours as needed 07/16/2017 08/14/2017 Inactive Not to exceed 3gm/24hr acetaminophen hyoscyamine 0.125 mg disintegrating tablet RxNorm: 3237297 Tablet(s) 1-2 Tablet(s) PO Q8 as needed 07/13/2017 08/01/2017 Inactive baclofen 10 mg tablet RxNorm: 071847 TAKE 1 TABLET THREE TIMES DAILY VIA STOMACH TUBE 07/12/2017 10/06/2017 Inactive 07/12/2017 9:04:08 AM N O T I C E Last quantity doesn't match original quantity lorazepam 0.5 mg tablet RxNorm: 528638 1/2 Tablet(s) PO BID 07/02/2017 08/02/2017 Inactive fentanyl 100 mcg/hr transdermal patch RxNorm: 899283 1 Patch TD Q72H 06/28/2017 07/25/2017 Inactive fentanyl 25 mcg/hr transdermal patch RxNorm: 408370 1 Patch TD Q72H 06/28/2017 07/25/2017 Inactive hyoscyamine 0.125 mg disintegrating tablet RxNorm: 4760077 Tablet(s) 1-2 Tablet(s) PO Q8 as needed 06/03/2017 06/22/2017 Inactive fentanyl 25 mcg/hr transdermal patch RxNorm: 392145 1 Patch TD Q72H 05/26/2017 06/24/2017 Inactive Levemir FlexTouch U-100 Insulin 100 unit/mL (3 mL) subcutaneous pen RxNorm: 058163 20 Unit(s) SQ BID 05/26/2017 09/08/2017 Inactive fentanyl 100 mcg/hr transdermal patch RxNorm: 790358 1 Patch TD Q72H 05/26/2017 06/24/2017 Inactive hydrocodone 10 mg-acetaminophen 325 mg tablet RxNorm: 825949 1 Tablet(s) PO scheduled BID et Q6 hours as needed 05/12/2017 05/11/2017 Inactive hydrocodone 10 mg-acetaminophen 325 mg tablet RxNorm: 363971 1 Tablet(s) PO scheduled TID et Q6 hours as needed 05/12/2017 06/10/2017 Inactive Not to exceed 3gm/24hr acetaminophen docusate sodium 100 mg tablet RxNorm: 2352384 1 Tablet(s) PO BID as needed if no bowel movement 05/10/2017 05/09/2017 Inactive lisinopril 20 mg tablet RxNorm: 713453 1 Tablet(s) PO daily 05/10/2017 09/08/2017 Inactive docusate sodium 100 mg tablet RxNorm: 9536323 1 Tablet(s) PO BID as needed if no bowel movement 05/10/2017 09/14/2017 Inactive fentanyl 25 mcg/hr transdermal patch RxNorm: 668973 1 Patch TD Q72H 05/03/2017 05/25/2017 Inactive lorazepam 0.5 mg tablet RxNorm: 110529 1/2 Tablet(s) PO BID 05/03/2017 07/01/2017 Inactive fentanyl 100 mcg/hr transdermal patch RxNorm: 513793 1 Patch TD Q72H 04/27/2017 05/25/2017 Inactive carvedilol 3.125 mg tablet RxNorm: 145552 Tablet(s) GIVE 1 TABLET VIA PEG TUBE DAILY 04/15/2017 10/21/2017 Inactive Levemir FlexTouch 100 unit/mL (3 mL) subcutaneous insulin pen RxNorm: 369404 10 Unit(s) SQ BID 04/15/2017 2017 Inactive hyoscyamine 0.125 mg disintegrating tablet RxNorm: 4107205 1-2 Tablet(s) PO Q8 as needed 04/14/2017 05/03/2017 Inactive hydrocodone 10 mg-acetaminophen 325 mg tablet RxNorm: 725012 1 Tablet(s) PO scheduled BID et Q6 hours as needed 04/13/2017 05/02/2017 Inactive baclofen 10 mg tablet RxNorm: 830219 TAKE 1 TABLET THREE TIMES DAILY VIA STOMACH TUBE 04/08/2017 05/22/2017 Inactive 04/08/2017 9:32:07 AM fentanyl 25 mcg/hr transdermal patch RxNorm: 291037 1 Patch TD Q72H 04/05/2017 05/02/2017 Inactive lidocaine 10 mg/mL (1 %) injection solution RxNorm: 1060948 1 Milliliter(s) Inj daily Mix with rocephin 03/31/2017 03/30/2017 Inactive Pt resides at [facility] lidocaine 10 mg/mL (1 %) injection solution RxNorm: 6463170 1 Milliliter(s) Inj daily Mix with rocephin 03/31/2017 04/06/2017 Inactive Pt resides at [facility] fentanyl 100 mcg/hr transdermal patch RxNorm: 821606 1 Patch TD Q72H 03/29/2017 04/26/2017 Inactive nystatin 100,000 unit/gram topical powder RxNorm: 704961 APPLY UNDER BREASTS TWICE DAILY FOR YEAST SKIN INFECTION AND APPLY TO UNDERARM AND ABDOMINAL FOLDS AND PERIAREA TWICE DAILY 03/29/2017 03/28/2017 Inactive 03/27/2017 9:12:50 AM nystatin 100,000 unit/gram topical powder RxNorm: 463238 APPLY UNDER BREASTS TWICE DAILY FOR YEAST SKIN INFECTION AND APPLY TO UNDERARM AND ABDOMINAL FOLDS AND PERIAREA TWICE DAILY 03/29/2017 09/14/2017 Inactive 03/29/2017 9:42:55 AM03/27/2017 9:12:50 AM hyoscyamine 0.125 mg disintegrating tablet RxNorm: 0946501 1-2 Tablet(s) PO Q8 as needed 03/08/2017 03/27/2017 Inactive fentanyl 25 mcg/hr transdermal patch RxNorm: 951334 1 Patch TD Q72H 03/02/2017 03/31/2017 Inactive hydrocodone 10 mg-acetaminophen 325 mg tablet RxNorm: 397141 1 Tablet(s) PO scheduled BID et Q6 hours as needed 02/17/2017 03/18/2017 Inactive fentanyl 100 mcg/hr transdermal patch RxNorm: 725453 1 Patch TD Q72H 02/17/2017 03/18/2017 Inactive Lexapro 10 mg tablet RxNorm: 776069 1 Tablet(s) PO daily 02/05/2017 04/14/2017 Inactive Lexapro 10 mg tablet RxNorm: 436240 1 Tablet(s) PO daily 02/05/2017 02/04/2017 Inactive fentanyl 25 mcg/hr transdermal patch RxNorm: 895114 1 Patch TD Q72H 02/04/2017 03/01/2017 Inactive cyanocobalamin (vit B-12) 1,000 mcg tablet RxNorm: 791643 1 Tablet(s) PO daily 01/18/2017 12/13/2017 Inactive hyoscyamine 0.125 mg disintegrating tablet RxNorm: 9850348 Tablet(s) 1-2 Tablet(s) PO Q8 as needed 01/18/2017 02/06/2017 Inactive baclofen 10 mg tablet RxNorm: 212869 TAKE 1 TABLET THREE TIMES DAILY VIA STOMACH TUBE 01/04/2017 02/17/2017 Inactive 01/04/2017 9:25:18 AM fentanyl 100 mcg/hr transdermal patch RxNorm: 891863 1 Patch TD Q72H 12/25/2016 01/23/2017 Inactive hydrochlorothiazide 25 mg tablet RxNorm: 604904 Tablet(s) GIVE 1 TABLET VIA PEG TUBE ONCE A DAY 12/14/2016 07/11/2017 Inactive fentanyl 100 mcg/hr transdermal patch RxNorm: 283174 1 Patch TD Q72H 11/25/2016 12/24/2016 Inactive hyoscyamine 0.125 mg disintegrating tablet RxNorm: 2936938 Tablet(s) 1-2 Tablet(s) PO Q8 as needed 11/25/2016 12/14/2016 Inactive nystatin 100,000 unit/gram topical powder RxNorm: 198785 APPLY UNDER BREASTS TWICE DAILY FOR YEAST SKIN INFECTION AND APPLY TO UNDERARM AND ABDOMINAL FOLDS AND PERIAREA TWICE DAILY 11/24/2016 01/22/2017 Inactive 11/24/2016 9:34:02 AM hydrocodone 10 mg-acetaminophen 325 mg tablet RxNorm: 461211 1 Tablet(s) PO scheduled BID et Q6 hours as needed 11/02/2016 12/01/2016 Inactive cyanocobalamin (vit B-12) 1,000 mcg tablet RxNorm: 793466 1 Tablet(s) PO daily 11/02/2016 01/17/2017 Inactive hyoscyamine 0.125 mg disintegrating tablet RxNorm: 4759107 1-2 Tablet(s) PO Q8 as needed 10/19/2016 11/24/2016 Inactive fentanyl 100 mcg/hr transdermal patch RxNorm: 207981 1 Patch TD Q72H 10/13/2016 11/11/2016 Inactive hydrocodone 10 mg-acetaminophen 325 mg tablet RxNorm: 317966 1 Tablet(s) PO scheduled BID et Q6 hours as needed 10/05/2016 11/01/2016 Inactive baclofen 10 mg tablet RxNorm: 805853 TAKE 1 TABLET THREE TIMES DAILY VIA STOMACH TUBE 10/01/2016 11/14/2016 Inactive 10/01/2016 9:24:37 AM carvedilol 3.125 mg tablet RxNorm: 138939 GIVE 1 TABLET VIA PEG TUBE 2 TIMES A DAY 09/30/2016 12/28/2016 Inactive Generic For:COREG 3.125MG 09/30/2016 1:12:28 PM09/25/2016 9:06:11 AM Probiotic Blend 2 million cell-50 mg capsule RxNorm: 1 Capsule(s) PO BID 09/17/2016 09/23/2016 Inactive Keflex 500 mg capsule RxNorm: 868491 1 Capsule(s) PO TID 09/17/2016 09/23/2016 Inactive hyoscyamine 0.125 mg/5 mL oral elixir RxNorm: 8232323 5 Milliliter(s) PO TID 09/08/2016 09/17/2016 Inactive hyoscyamine 0.125 mg/5 mL oral elixir RxNorm: 6156477 5 Milliliter(s) PO TID 09/08/2016 09/07/2016 Inactive hyoscyamine 0.125 mg disintegrating tablet RxNorm: 0450234 1-2 Tablet(s) PO Q8 as needed 09/07/2016 10/18/2016 Inactive fentanyl 100 mcg/hr transdermal patch RxNorm: 329761 1 Patch TD Q72H 09/01/2016 09/30/2016 Inactive ranitidine 150 mg tablet RxNorm: 005471 1 Tablet(s) PO BID 08/25/2016 No Stop Date Active hydrocodone 10 mg-acetaminophen 325 mg tablet RxNorm: 467798 1 Tablet(s) PO scheduled BID et Q6 hours as needed 08/24/2016 09/22/2016 Inactive cyanocobalamin (vit B-12) 1,000 mcg tablet RxNorm: 483008 1 Tablet(s) PO daily 08/12/2016 11/01/2016 Inactive cyanocobalamin (vit B-12) 1,000 mcg tablet RxNorm: 340821 1 Tablet(s) PO daily 08/12/2016 08/11/2016 Inactive hydrocodone 10 mg-acetaminophen 325 mg tablet RxNorm: 656581 1-2 Tablet(s) PO Q6 as needed 08/03/2016 08/17/2016 Inactive fentanyl 100 mcg/hr transdermal patch RxNorm: 054119 1 Patch TD Q72H 08/03/2016 08/31/2016 Inactive nystatin 100,000 unit/gram topical powder RxNorm: 714836 APPLY UNDER BREASTS TWICE DAILY FOR YEAST SKIN INFECTION AND APPLY TO UNDERARM AND ABDOMINAL FOLDS AND PERIAREA TWICE DAILY 07/17/2016 09/14/2016 Inactive 07/17/2016 3:56:54 PM fentanyl 100 mcg/hr transdermal patch RxNorm: 835423 1 Patch TD Q72H 07/15/2016 08/02/2016 Inactive lisinopril 20 mg tablet RxNorm: 042871 1 Tablet(s) PO daily 07/02/2016 03/28/2017 Inactive hydrocodone 10 mg-acetaminophen 325 mg tablet RxNorm: 113518 1-2 Tablet(s) PO Q6 as needed 07/01/2016 07/15/2016 Inactive Xarelto 20 mg tablet RxNorm: 6756505 Tablet(s) TAKE 1 TABLET VIA PEG TUBE AT BEDTIME 06/19/2016 04/14/2017 Inactive fentanyl 100 mcg/hr transdermal patch RxNorm: 855301 1 Patch TD Q72H 06/17/2016 07/14/2016 Inactive nystatin 100,000 unit/gram topical powder RxNorm: 169147 APPLY TO UNDER BREASTS TWICE DAILY FOR YEAST SKIN INFECTION AND APPLY TO UNDERARM AND ABDOMINAL FOLDS AND PERIAREA TWICE DAILY 06/15/2016 07/16/2016 Inactive Generic For:MYCOSTATIN 100,000 UNITS/GM PW 06/15/2016 12:28:26 PM fentanyl 100 mcg/hr transdermal patch RxNorm: 356482 1 Patch TD Q72H 06/05/2016 06/16/2016 Inactive hydrocodone 10 mg-acetaminophen 325 mg tablet RxNorm: 016225 1-2 Tablet(s) PO Q6 as needed 06/02/2016 06/16/2016 Inactive Probiotic Blend 2 million cell-50 mg capsule RxNorm: 1 Capsule(s) PO BID 05/13/2016 05/19/2016 Inactive nitrofurantoin 100 mg capsule RxNorm: 367193 1 Capsule(s) PO BID 05/13/2016 05/19/2016 Inactive nitrofurantoin 100 mg capsule RxNorm: 690436 1 Capsule(s) PO BID 05/13/2016 05/12/2016 Inactive fentanyl 75 mcg/hr transdermal patch RxNorm: 802729 1 Patch TD Q72H 05/13/2016 06/04/2016 Inactive Keflex 500 mg capsule RxNorm: 914030 1 Capsule(s) PO TID 05/07/2016 05/13/2016 Inactive Patient at [facility] Keflex 500 mg capsule RxNorm: 933202 1 Capsule(s) PO TID 05/07/2016 05/06/2016 Inactive hydrocodone 10 mg-acetaminophen 325 mg tablet RxNorm: 050993 1-2 Tablet(s) PO Q6 as needed 05/04/2016 06/01/2016 Inactive hydrochlorothiazide 25 mg tablet RxNorm: 178616 Tablet(s) GIVE 1 TABLET VIA PEG TUBE ONCE A DAY 04/29/2016 11/24/2016 Inactive hydrochlorothiazide 25 mg tablet RxNorm: 316858 GIVE 1 TABLET VIA PEG TUBE ONCE A DAY 04/22/2016 04/28/2016 Inactive Generic For:HYDRODIURIL 25 MG TABLET refill request fentanyl 75 mcg/hr transdermal patch RxNorm: 653207 1 Patch TD Q72H 04/17/2016 05/12/2016 Inactive Xarelto 20 mg tablet RxNorm: 4286370 TAKE 1 TABLET VIA PEG TUBE AT BEDTIME 04/16/2016 06/14/2016 Inactive 04/16/2016 9:08:52 AM citalopram 40 mg tablet RxNorm: 767211 1 Tablet(s) PO daily 04/02/2016 02/25/2017 Inactive citalopram 40 mg tablet RxNorm: 632787 1 Tablet(s) PO daily 03/27/2016 04/01/2016 Inactive hydrocodone 10 mg-acetaminophen 325 mg tablet RxNorm: 687136 1-2 Tablet(s) PO Q6 as needed 03/27/2016 04/25/2016 Inactive fentanyl 75 mcg/hr transdermal patch RxNorm: 084209 1 Patch TD Q72H 03/18/2016 04/16/2016 Inactive hydrocodone 10 mg-acetaminophen 325 mg tablet RxNorm: 538147 1-2 Tablet(s) PO Q6 as needed 03/11/2016 03/26/2016 Inactive citalopram 40 mg tablet RxNorm: 088121 1 Tablet(s) PO daily 03/04/2016 03/26/2016 Inactive Levemir FlexTouch U-100 Insulin 100 unit/mL (3 mL) subcutaneous pen RxNorm: 385489 20 Unit(s) SQ BID 03/02/2016 09/27/2016 Inactive lisinopril 20 mg tablet RxNorm: 819873 1 Tablet(s) PO daily 02/25/2016 07/01/2016 Inactive Ativan 0.5 mg tablet RxNorm: 407467 1 Tablet(s) PO Q4H as needed 02/18/2016 04/14/2017 Inactive Xarelto 20 mg tablet RxNorm: 5339157 TAKE 1 TABLET VIA PEG TUBE AT BEDTIME 02/12/2016 04/11/2016 Inactive 02/12/2016 9:08:22 AM hydrocodone 10 mg-acetaminophen 325 mg tablet RxNorm: 524917 1-2 Tablet(s) PO Q6 as needed 02/12/2016 03/10/2016 Inactive fentanyl 75 mcg/hr transdermal patch RxNorm: 193664 1 Patch TD Q72H 02/11/2016 03/11/2016 Inactive citalopram 20 mg tablet RxNorm: 330846 1 Tablet(s) PO daily 01/28/2016 03/03/2016 Inactive fentanyl 75 mcg/hr transdermal patch RxNorm: 947738 1 TD Q72H 01/17/2016 02/10/2016 Inactive hydrocodone 10 mg-acetaminophen 325 mg tablet RxNorm: 742554 1-2 Tablet(s) PO Q6 as needed 01/07/2016 02/05/2016 Inactive fentanyl 50 mcg/hr transdermal patch RxNorm: 632117 1 TD Q72H 01/01/2016 01/16/2016 Inactive fentanyl 50 mcg/hr transdermal patch RxNorm: 868480 1 TD q 3 days 12/26/2015 12/31/2015 Inactive Xarelto 20 mg tablet RxNorm: 2846813 TAKE 1 TABLET VIA PEG TUBE AT BEDTIME 12/17/2015 02/11/2016 Inactive 12/16/2015 3:27:57 PM12/14/2015 9:45:17 AM hydrocodone 10 mg-acetaminophen 325 mg tablet RxNorm: 979056 1-2 Tablet(s) PO Q6 as needed 12/06/2015 01/04/2016 Inactive fentanyl 50 mcg/hr transdermal patch RxNorm: 303019 1 TD q 3 days 12/06/2015 12/25/2015 Inactive fentanyl 25 mcg/hr transdermal patch RxNorm: 277016 1 TD q 3 days 11/18/2015 12/05/2015 Inactive Zithromax Z-Eliu 250 mg tablet RxNorm: 755970 1 Tablet(s) PO UD 10/09/2015 02/26/2016 Inactive z pack as directed- please write out instructions- pt at [facility] nystatin 100,000 unit/gram topical powder RxNorm: 595780 APPLY TO UNDER BREASTS TWICE DAILY FOR YEAST SKIN INFECTION AND APPLY TO UNDERARM AND ABDOMINAL FOLDS AND PERIAREA TWICE DAILY 10/07/2015 12/05/2015 Inactive Generic For:MYCOSTATIN 100,000 UNITS/GM PW 10/05/2015 12:07:35 PM fentanyl 25 mcg/hr transdermal patch RxNorm: 199710 1 TD q 3 days 10/03/2015 11/01/2015 Inactive fentanyl 25 mcg/hr transdermal patch RxNorm: 831346 1 TD q 3 days 09/27/2015 10/02/2015 Inactive fentanyl 25 mcg/hr transdermal patch RxNorm: 640025 1 TD q 3 days 09/17/2015 09/26/2015 Inactive fentanyl 25 mcg/hr transdermal patch RxNorm: 825818 1 TD q 3 days 08/30/2015 09/16/2015 Inactive hydrocodone 5 mg-acetaminophen 325 mg tablet RxNorm: 546236 1 Tablet(s) PO Q6 as needed 08/30/2015 09/28/2015 Inactive Diflucan 100 mg tablet RxNorm: 258956 1 Tablet(s) Miscellaneous per peg daily 07/29/2015 08/04/2015 Inactive fentanyl 25 mcg/hr transdermal patch RxNorm: 179091 1 TD q 3 days 07/18/2015 08/29/2015 Inactive hydrocodone 5 mg-acetaminophen 325 mg tablet RxNorm: 583502 1 Tablet(s) PO Q6 as needed 07/18/2015 08/29/2015 Inactive Diflucan 100 mg tablet RxNorm: 733383 1 Tablet(s) Miscellaneous per peg daily 06/17/2015 06/23/2015 Inactive Senna-S 8.6 mg-50 mg tablet RxNorm: 961494 1 Tablet(s) PO daily as needed constipation No Start Date Active Dulcolax (bisacodyl) 10 mg rectal suppository RxNorm: 347958 1 Suppository RTL daily as needed constipation No Start Date Active polyethylene glycol 3350 17 gram/dose oral powder RxNorm: 164211 17 Gram(s) PO daily as needed constipation No Start Date Active baclofen 10 mg tablet RxNorm: 664271 1 Tablet(s) PO TID No Start Date 09/30/2016 Inactive Ativan 0.5 mg tablet RxNorm: 399159 1 Tablet(s) PO Q4H as needed No Start Date 02/17/2016 Inactive ranitidine 150 mg tablet RxNorm: 703482 1 Tablet(s) PO daily No Start Date 08/24/2016 Inactive carvedilol 3.125 mg tablet RxNorm: 801787 1 Tablet(s) PO daily No Start Date 09/29/2016 Inactive citalopram 40 mg tablet RxNorm: 141245 1 Tablet(s) PO daily No Start Date 01/27/2016 Inactive Probiotic Blend oral RxNorm: oral No Start Date 05/12/2016 Inactive hydrochlorothiazide 25 mg tablet RxNorm: 612352 1 Tablet(s) PO daily No Start Date 04/21/2016 Inactive albuterol sulfate concentrate 5 mg/mL(0.5 %) solution for nebulization RxNorm: 033457 1 Vial INH daily as needed congestion No Start Date 03/17/2018 Inactive Levemir FlexTouch 100 unit/mL (3 mL) subcutaneous insulin pen RxNorm: 266609 10 Unit(s) SQ BID No Start Date 03/01/2016 Inactive Zithromax Z-Eliu 250 mg tablet RxNorm: 703246 1 Tablet(s) PO UD No Start Date 10/08/2015 Inactive z pack as directed- please write out instructions- pt at [facility] nystatin 100,000 unit/gram topical powder RxNorm: 523231 Gram(s) TOP BID as needed No Start Date 10/06/2015 Inactive pravastatin 40 mg tablet RxNorm: 513740 Tablet(s) PO daily No Start Date 04/14/2017 Inactive lorazepam 0.5 mg tablet RxNorm: 221933 1/2 Tablet(s) PO BID No Start Date 05/02/2017 Inactive Xarelto 20 mg tablet RxNorm: 2037381 1 Tablet(s) PO daily No Start Date 12/16/2015 Inactive fentanyl 25 mcg/hr transdermal patch RxNorm: 413286 1 TD q 3 days No Start Date 07/17/2015 Inactive lisinopril 20 mg tablet RxNorm: 525811 1 Tablet(s) PO daily No Start Date 02/24/2016 Inactive hydrocodone 5 mg-acetaminophen 325 mg tablet RxNorm: 656598 1 Tablet(s) PO Q6 as needed No Start Date 07/17/2015 Inactive citalopram 40 mg tablet RxNorm: 353416 1 Tablet(s) PO daily No Start Date 03/03/2016 Inactive hyoscyamine 0.125 mg disintegrating tablet RxNorm: 3661425 1-2 Tablet(s) PO Q8 as needed No [...] Code Item Item Code Result Date %Hba1C Qdz796 % HbA1c 14814- 6 5.5 % 05/18/2018 %Hba1C Ytb775 Gluc Ave 111 mg/dL 05/18/2018 Cbc With [...] 32.3 pg 05/18/2018 Cbc With Differential Ord2 Desha% 4.9 % 05/18/2018 Cbc With Differential Ord2 [...] 1.81 K/ul 05/18/2018 Cbc With Differential Ord2 Desha ABS# 0.4 K/ul 05/18/2018 Cbc With Differential Ord2 Eos ABS# 0.6 K/ul 05/18/2018 Cbc With Differential Ord2 Baso ABS# 0.0 K/ul 05/18/2018 Tsh Ord6 TSH (3rd IS) 0.85 uIU/mL 05/18/2018 Comp Metabolic Xwk663 NA 137 mEq/L 05/18/2018 Comp Metabolic Ynv492 K 4.2 mEq/L 05/18/2018 Comp Metabolic Jvy898 CL 97 mEq/L 05/18/2018 Comp Metabolic Jgc670 CO2 34.0 mEq/L 05/18/2018 Comp Metabolic Has251 ANION GAP 10 05/18/2018 Comp Metabolic Twn182 GLUCOSE 177 mg/dL 05/18/2018 Comp Metabolic Wyn814 Creat 0.5 mg/dL 05/18/2018 Comp Metabolic Pzh123 eGFR 122 ml/min/1.73m2 05/18/2018 Comp Metabolic Aae592 BUN 23 mg/dL 05/18/2018 Comp Metabolic Vgz194 B/C Ratio 43.4 Ratio 05/18/2018 Comp Metabolic Lho559 CALCIUM 9.2 mg/dL 05/18/2018 Comp Metabolic Yeh628 ALK PHOS 86 U/L 05/18/2018 Comp Metabolic Cyj841 AST(SGOT) 14 U/L 05/18/2018 Comp Metabolic Bji565 ALT(SGPT) 9 U/L 05/18/2018 Comp Metabolic Uag525 BILI T 0.3 mg/dL 05/18/2018 Comp Metabolic Rjg526 ALBUMIN 3.7 g/dL 05/18/2018 Comp Metabolic Gna636 TPRO 6.2 g/dL 05/18/2018 Comp Metabolic Qpi364 GLOB 2.6 g/dL 05/18/2018 Comp Metabolic Hkj332 A/G Ratio 1.4 Ratio 05/18/2018 Comp Metabolic Fkj240 Osmo 282 mOsmo 05/18/2018 A1C Frequency Mzy194 A1CF 10527-1 [facility] [...] 30.7 pg 02/14/2018 Cbc With Differential Ord2 Desha% 7.4 % 02/14/2018 Cbc With Differential Ord2 [...] 2.14 K/ul 02/14/2018 Cbc With Differential Ord2 Desha ABS# 0.5 K/ul 02/14/2018 Cbc With Differential Ord2 Eos ABS# 0.3 K/ul 02/14/2018 Cbc With Differential Ord2 Baso ABS# 0.0 K/ul 02/14/2018 Comp Metabolic Fud138 NA 142 mEq/L 02/14/2018 Comp Metabolic Zbu703 K 4.5 mEq/L 02/14/2018 Comp Metabolic Wox383 CL 97 mEq/L 02/14/2018 Comp Metabolic Kkw796 CO2 41.0 mEq/L 02/14/2018 Comp Metabolic Fmu214 ANION GAP 9 02/14/2018 Comp Metabolic Rkt996 GLUCOSE 111 mg/dL 02/14/2018 Comp Metabolic Iki986 Creat 0.6 mg/dL 02/14/2018 Comp Metabolic Stw671 eGFR 108 ml/min/1.73m2 02/14/2018 Comp Metabolic Hgl420 BUN 32 mg/dL 02/14/2018 Comp Metabolic Wej339 B/C Ratio 54.2 Ratio 02/14/2018 Comp Metabolic Ghi098 CALCIUM 8.9 mg/dL 02/14/2018 Comp Metabolic Cem114 ALK PHOS 81 U/L 02/14/2018 Comp Metabolic Mqe386 AST(SGOT) 14 U/L 02/14/2018 Comp Metabolic Ica555 ALT(SGPT) 11 U/L 02/14/2018 Comp Metabolic Agn554 BILI T 0.3 mg/dL 02/14/2018 Comp Metabolic Utw081 ALBUMIN 3.4 g/dL 02/14/2018 Comp Metabolic Uhr940 TPRO 6.3 g/dL 02/14/2018 Comp Metabolic Vhv829 GLOB 2.9 g/dL 02/14/2018 Comp Metabolic Tiu866 A/G Ratio 1.2 Ratio 02/14/2018 Comp Metabolic Rfc365 Osmo 291 mOsmo 02/14/2018 %Hba1C Saw043 % HbA1c 13281- 6 5.5 % 02/14/2018 %Hba1C Atu787 Gluc Ave 111 mg/dL 02/14/2018 Prealbumin 088857 PREALBUMIN 27 mg/dL 11/24/2017 %Hba1C Nhf363 % HbA1c 15960- 6 5.5 % 11/04/2017 %Hba1C Xtc833 Gluc Ave 111 mg/dL 11/04/2017 Culture Urine [id number] URINE CULTURE SEE NOTES 10/04/2017 Culture Urine [id number] Continued Results 10/04/2017 Urine Culture Ucult Complete [...] Ord28 U-Com Culture to follow 10/01/2017 B12 Qgc151 B12 >1500.00 pg/ml 02/19/2017 Cbc With Differential [...] 31.5 pg 02/02/2017 Cbc With Differential Ord2 Desha% 8.3 % 02/02/2017 Cbc With Differential Ord2 [...] 2.28 K/ul 02/02/2017 Cbc With Differential Ord2 Desha ABS# 0.6 K/ul 02/02/2017 Cbc With Differential Ord2 Eos ABS# 0.4 K/ul 02/02/2017 Cbc With Differential Ord2 Baso ABS# 0.0 K/ul 02/02/2017 %Hba1C Tjp055 % HbA1c 74596- 6 5.2 % 02/02/2017 %Hba1C Mrn332 Gluc Ave 103 mg/dL 02/02/2017 Comp Metabolic Pmf943 NA 138 mEq/L 02/02/2017 Comp Metabolic Dsg116 K 4.5 mEq/L 02/02/2017 Comp Metabolic Gkz109 CL 98 mEq/L 02/02/2017 Comp Metabolic Rge136 CO2 37.0 mEq/L 02/02/2017 Comp Metabolic Aih860 ANION GAP 8 02/02/2017 Comp Metabolic Ign278 GLUCOSE 94 mg/dL 02/02/2017 Comp Metabolic Itg197 Creat 0.7 mg/dL 02/02/2017 Comp Metabolic Elq281 eGFR 88 ml/min/1.73m2 02/02/2017 Comp Metabolic Gtk319 BUN 36 mg/dL 02/02/2017 Comp Metabolic Wlw015 B/C Ratio 50.7 Ratio 02/02/2017 Comp Metabolic Qjb281 CALCIUM 9.0 mg/dL 02/02/2017 Comp Metabolic Qkg400 ALK PHOS 78 U/L 02/02/2017 Comp Metabolic Jiv898 AST(SGOT) 22 U/L 02/02/2017 Comp Metabolic Koe723 ALT(SGPT) 28 U/L 02/02/2017 Comp Metabolic Umu234 BILI T 0.3 mg/dL 02/02/2017 Comp Metabolic Foq790 ALBUMIN 3.3 g/dL 02/02/2017 Comp Metabolic Tog490 TPRO 5.9 g/dL 02/02/2017 Comp Metabolic Orp669 GLOB 2.6 g/dL 02/02/2017 Comp Metabolic Wko473 A/G Ratio 1.3 Ratio 02/02/2017 Comp Metabolic Bwf689 Osmo 284 mOsmo 02/02/2017 %Hba1C Pqp858 % HbA1c 19947- 6 5.0 % 10/29/2016 %Hba1C Vnl602 Gluc Ave 97 mg/dL 10/29/2016 Culture Urine [id number] URINE CULTURE SEE NOTES 09/21/2016 Culture Urine [id number] Continued Results 09/21/2016 Urine Culture Ucult Complete [...] 32.4 pg 07/30/2016 Cbc With Differential Ord2 Desha% 7.2 % 07/30/2016 Cbc With Differential Ord2 [...] 2.69 K/ul 07/30/2016 Cbc With Differential Ord2 Desha ABS# 0.5 K/ul 07/30/2016 Cbc With Differential Ord2 Eos ABS# 0.5 K/ul 07/30/2016 Cbc With Differential Ord2 Baso ABS# 0.0 K/ul 07/30/2016 Comp Metabolic Sof367 NA 141 mEq/L 07/30/2016 Comp Metabolic Etn697 K 4.3 mEq/L 07/30/2016 Comp Metabolic Ssp107 CL 100 mEq/L 07/30/2016 Comp Metabolic Sbq270 CO2 33.0 mEq/L 07/30/2016 Comp Metabolic Khy988 ANION GAP 12 07/30/2016 Comp Metabolic Ddj305 GLUCOSE 64 mg/dL 07/30/2016 Comp Metabolic Szy704 Creat 0.5 mg/dL 07/30/2016 Comp Metabolic Vyp302 eGFR 126 ml/min/1.73m2 07/30/2016 Comp Metabolic Oid045 BUN 25 mg/dL 07/30/2016 Comp Metabolic Hem434 B/C Ratio 48.1 Ratio 07/30/2016 Comp Metabolic Red310 CALCIUM 8.9 mg/dL 07/30/2016 Comp Metabolic Hny697 ALK PHOS 90 U/L 07/30/2016 Comp Metabolic Uqi996 AST(SGOT) 22 U/L 07/30/2016 Comp Metabolic Xvm360 ALT(SGPT) 36 U/L 07/30/2016 Comp Metabolic Jen299 BILI T 0.3 mg/dL 07/30/2016 Comp Metabolic Lch108 ALBUMIN 3.4 g/dL 07/30/2016 Comp Metabolic Xuw827 TPRO 6.0 g/dL 07/30/2016 Comp Metabolic Vhz186 GLOB 2.7 g/dL 07/30/2016 Comp Metabolic Gif095 A/G Ratio 1.3 Ratio 07/30/2016 Comp Metabolic Rlw933 Osmo 284 mOsmo 07/30/2016 A1C Frequency Hkw669 A1CF 85437-4 Last A1C performed at [facility] [place] lab on: 05-12-2016 07/30/2016 %Hba1C Tly653 % HbA1c 40741- 6 5.2 % 05/12/2016 %Hba1C Tub947 Gluc Ave 103 mg/dL 05/12/2016 Culture Urine [id number] URINE CULTURE SEE NOTES 05/11/2016 Urine Culture [...] U-Com Culture to follow 05/06/2016 Culture Urine [id number] URINE CULTURE SEE NOTES 03/17/2016 Culture Urine [id number] Continued Results 03/17/2016 Urine Culture Ucult Complete [...] 32.0 pg 02/11/2016 Cbc With Differential Ord2 Desha% 9.1 % 02/11/2016 Cbc With Differential Ord2 [...] 2.59 K/ul 02/11/2016 Cbc With Differential Ord2 Desha ABS# 0.6 K/ul 02/11/2016 Cbc With Differential Ord2 Eos ABS# 0.3 K/ul 02/11/2016 Cbc With Differential Ord2 Baso ABS# 0.0 K/ul 02/11/2016 Comp Metabolic Zwv999 NA 137 mEq/L 02/11/2016 Comp Metabolic Fub047 K 4.4 mEq/L 02/11/2016 Comp Metabolic Zwr872 CL 100 mEq/L 02/11/2016 Comp Metabolic Odj946 CO2 25.0 mEq/L 02/11/2016 Comp Metabolic Vos128 ANION GAP 16 02/11/2016 Comp Metabolic Kaf149 GLUCOSE 99 mg/dL 02/11/2016 Comp Metabolic Mbk362 Creat 0.6 mg/dL 02/11/2016 Comp Metabolic Wjf714 eGFR 99 ml/min/1.73m2 02/11/2016 Comp Metabolic Wha174 BUN 27 mg/dL 02/11/2016 Comp Metabolic Sru820 B/C Ratio 42.2 Ratio 02/11/2016 Comp Metabolic Kii056 CALCIUM 9.2 mg/dL 02/11/2016 Comp Metabolic Dpl942 ALK PHOS 74 U/L 02/11/2016 Comp Metabolic Vut077 AST(SGOT) 24 U/L 02/11/2016 Comp Metabolic Vwe987 ALT(SGPT) 26 U/L 02/11/2016 Comp Metabolic Obs786 BILI T 0.5 mg/dL 02/11/2016 Comp Metabolic Cct817 ALBUMIN 3.5 g/dL 02/11/2016 Comp Metabolic Qge122 TPRO 6.2 g/dL 02/11/2016 Comp Metabolic Vgk983 GLOB 2.7 g/dL 02/11/2016 Comp Metabolic Mmu276 A/G Ratio 1.3 Ratio 02/11/2016 Comp Metabolic Wsa815 Osmo 279 mOsmo 02/11/2016 Review of Systems [...] 1: 128/86 Code: 8480-6 BMI: 31.4 Code: 63732-6 Heart Rate 1: 72 bpm Height: 5'1" Weight: 166 lbs 06/17/2015 Blood Pressure 1: 110/78 Code: 8480-6 BMI: 33.3 Code: 65688-8 Heart Rate 1: 74 bpm Height: 5'1" [...] Present Encounters Encounter Performer Location Codes Date ([id number]) [id number] EST. 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 PATIENT, LEVEL IV Diagnosis: Cough[ICD10: R05] Diagnosis: Pneumonia, unspecified organism[ICD10: J18.9] Diagnosis: Pain in right knee[ICD10: M25.561] Carlyn Everett MD, [facility] CPT- 4: 77447 03/18/2018 ([id number]) 24473 EST. PATIENT, LEVEL IV Diagnosis: Type 2 diabetes mellitus without complications[ICD10: E11.9] Diagnosis: Essential (primary) hypertension[ICD10: I10] Diagnosis: Chronic pain syndrome[ICD10: G89.4] Carlyn Everett MD, [facility] CPT-4: 07275 01/07/2018 ([id number]) 53458 EST. PATIENT, LEVEL IV Diagnosis: Essential (primary) hypertension[ICD10: I10] Diagnosis: Type 2 diabetes mellitus without complications[ICD10: E11.9] Carlyn Everett MD, [facility] CPT-4: 75500 2017 ([id number]) 26266 EST. PATIENT, LEVEL IV Diagnosis: Type 2 diabetes mellitus with hyperglycemia[ICD10: E11.65] Diagnosis: Essential (primary) hypertension[ICD10: I10] Diagnosis: Pain in left shoulder[ICD10: M25.512] Diagnosis: Pain in right shoulder[ICD10: M25.511] Diagnosis: Pain in left knee[ICD10: M25.562] Diagnosis: Pain in right knee[ICD10: M25.561] Vonda Everett MD, [facility] CPT- 4: 08503 09/09/2017 [id number] EST. PATIENT, LEVEL IV Diagnosis: Essential (primary) hypertension[ICD10: I10] Diagnosis: Type 2 diabetes mellitus with hyperglycemia[ICD10: E11.65] Diagnosis: Low back pain[ICD10: M54.5] Sunitha Everett MD, [facility] CPT-4: 41365 06/08/2017 ([id number]) 10378 EST. PATIENT, LEVEL IV Diagnosis: Essential (primary) hypertension[ICD10: I10] Diagnosis: Type 2 diabetes mellitus with hyperglycemia[ICD10: E11.65] Diagnosis: Low back pain[ICD10: M54.5] Sunitha Everett MD, [facility] CPT-4: 03743 04/15/2017 ([id number]) 76873 EST. PATIENT, LEVEL IV Diagnosis: Essential (primary) hypertension[ICD10: I10] Diagnosis: Type 2 diabetes mellitus with hyperglycemia[ICD10: E11.65] Diagnosis: Low back pain[ICD10: M54.5] [facility] CPT-4: 58816 02/16/2017 66025 EST. 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] Diagnosis: Ataxia following cerebral infarction[ICD10: I69.393] Diagnosis: 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] Diagnosis: Dysphagia following cerebral infarction[ICD10: I69.391] 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] Diagnosis: Candidal esophagitis[ICD10: B37.81] [facility] CPT- 4: 85612 06/17/2015 Plan of Care Planned Activity Notes [...] oral supplements 05/17/2018 Appointment: Carlyn Higginbotham WPtel: [facility] (15 min) Moderate 05/17/2018 Patient Education: Patient Medication Summary Completed 05/17/2018 Patient Education: Hypertension Completed 05/17/2018 Patient Education: Diabetes Completed 05/17/2018 Appointment: Carlyn Higginbotham WPtel: [facility] (15 min) Moderate 04/07/2018 Visit Plan: Pneumonia - Pt has been diagnosed with pneumonia by physical exam. A chest xray has been ordered as have antibiotics. The pt is aware of the diagnosis and the need for acute treatment of this illness. Right knee pain -xray knee-rx for voltaren gel 03/18/2018 Appointment: Carlyn Higginbotham WPtel: [phone] [place] (30 min) Complex 03/18/2018 Patient Education: Patient Medication Summary Completed 03/18/2018 Appointment: Carlyn Higginbotham WPtel: [facility] (30 min) Complex 03/17/2018 Appointment: Carlyn Higginbotham WPtel: [facility]5 [id number] (15 min) Moderate 03/10/2018 Appointment: Carlyn Higginbotham WPtel: [address] [place], [place] [phone] [place] [address] (15 min) Moderate 02/08/2018 Visit Plan: DM -decrease levemir to 4 units daily -monitor blood sugars TUX-myegxjjagp-tm changes Chronic pain -well controlled with fentanyl patch -no changes at this time 01/07/2018 Appointment: Carlyn Higginbotham WPtel: [address] [place], [place] [phone] [place] [address] (15 min) Moderate 01/07/2018 Patient Education: Patient [...] AT HS 2017 Appointment: Carlyn Higginbotham WPtel: [address] [place], [place] [phone] (15 min) Moderate 2017 Patient Education: Patient [...] 175mcg. 09/09/2017 Appointment: [phone] (15 min) Moderate 09/09/2017 Patient Education: Patient [...] record. 06/08/2017 Appointment: [phone] ([facility] min) Complex 06/08/2017 Patient [...] of over-medication. 04/15/2017 Appointment: [facility] Pat[facility]el[phone] (30 min) Complex 04/15/2017 Patient [...] today. 02/16/2017 Appointment: [phone] [facility] (15 min) Moderate 02/16/2017 Patient Education: Patient [...] or concerns. 11/09/2016 Appointment: Sunitha Patel WPtel: [phone] [facility] (30 min) Complex 11/09/2016 Patient Education: Patient Medication Summary Completed 11/09/2016 Care Plan: Referral Order SNOMED-CT : [id number] Pending 11/09/2016 Patient Education: Patient Medication Summary [...] Follow up weight in 1 month Neck wzef-adnhxerguhk-Qsde PT focus neck/upper body Right earache-cerumen removed with water pick today in the office 07/18/2015 Appointment: (30 min) Complex 07/18/2015 Patient Education: Patient Medication Summary Completed 07/18/2015 Patient Education: Obesity Completed 07/18/2015 Patient Education: .Cervicalgia Neck Pain Completed 07/18/2015 [phone] Ref[facility] Completed 06/25/2015 Visit [...] contact. 06/17/2015 Appointment: [facility]el[phone] [facility] New Patient 06/17/2015 Patient Education: Patient Medication Summary Completed 06/17/2015 Patient Education: Obesity Completed 06/17/2015 Patient Education: Hypertension Completed 06/17/2015 Care Plan: Referral Order SNOMED-CT : [id number] Ordered 06/17/2015 Referral: Jorge Luis Carroll Referral Initiated [phone] [facility] Ref[facility] Appointment Requested Instructions [...] response to medications. referral to [facility] physical [facility] occupational therapy for post [...] Add 1 scoop of whey protein from [facility] to 2 feedings per day . [...] Follow up weight in 1 month Neck bpus-vyzakmrejol-Ledp PT focus neck/upper body Right earache-cerumen removed [...] to 4 units daily -monitor blood sugars MFP-zovofvdgcn-kl changes Chronic pain -well controlled with fentanyl [...]
--- OUTSIDE RECORDS SUMMARY | 2018-08-09 11:12 | XMS REPORT | CCD ---
Author Author Vonda Everett Organization Vonda Everett MD, [facility] Address [address] [place] [address] Phone Care Team Providers Care Pattern Developer Name Role Phone PP Unavailable CCM Unavailable Summary Purpose Interface Exchange Insurance Providers Payer name Policy type / Coverage type Covered libertarian ID Effective Begin Date Effective End Date WPS Medicare Part B Medicare Part B [id number] Unknown Unknown [employer] [employer] Medicare Part B [id number] Unknown Unknown Family history Father Diagnosis Age At Onset Arthritis Unknown Hypertension Unknown Mother Diagnosis Age At Onset Diabetes mellitus Type 2 Unknown Depression Unknown Arthritis Unknown Stroke Unknown Hypertension Unknown Sister Diagnosis Age At Onset Colon cancer Unknown Social History Social History Element Codes Description Effective Dates Marital status Unknown Maurice 01/07/2018 Living arrangements Unknown [facility] 04/15/2017 Number of children Unknown 3 06/17/2015 Employment Unknown Retired 06/17/[address]: 9643164 Quit over 10 years ago 15+ 06/17/[address]: 012982602 Never drinks alcohol 06/17/2015 Allergies, Adverse Reactions, Alerts Substance Reaction Codes Entered Date Inactivated Date Status MORPHINE SULFATE emesis, RxNorm: 7052 06/17/2015 No Inactive Date Active Past Medical History Illness Codes Condition Status Onset Date Resolved Date Chronic pain syndrome ICD- 9: 338.4 ICD-10: G89.4 Active 01/07/2018 Unknown Essential (primary) hypertension ICD-9: 401.9 ICD-10: [...] ICD- 9: 338.4 ICD-10: G89.4 01/07/2018 Active Essential (primary) hypertension ICD-9: 401.9 ICD-10: [...] Instructions Voltaren 1 % topical gel RxNorm: 529871 APPLY 4 GRAMS TO RIGHT KNEE FOUR TIMES DAILY 06/13/2018 07/06/2018 Active Generic For:VOLTAREN GEL 1% 06/13/2018 10:59:02 AM hydrocodone 10 mg-acetaminophen 325 mg tablet RxNorm: 161470 2 Tablet(s) PO scheduled TID 06/07/2018 07/06/2018 Active Not to exceed 3gm/24hr acetaminophen fentanyl 100 mcg/hr transdermal patch RxNorm: 747170 1 Patch TD Q72H 06/03/2018 07/02/2018 Active Duragesic 75 mcg/hr transdermal patch RxNorm: 395918 1 Patch TD Q72H 06/03/2018 07/02/2018 Active hyoscyamine 0.125 mg disintegrating tablet RxNorm: 9292823 Tablet(s) Tablet(s) 1-2 Tablet(s) PO Q8 as needed 05/27/2018 No Stop Date Active lorazepam 0.5 mg tablet RxNorm: 428276 1 Tablet(s) PO BID and 1 tab q 6 hours prn 05/24/2018 No Stop Date Active hydrocodone 10 mg-acetaminophen 325 mg tablet RxNorm: 985549 2 Tablet(s) PO scheduled TID 05/24/2018 06/06/2018 Inactive Not to exceed 3gm/24hr acetaminophen citalopram 20 mg tablet RxNorm: 337840 1 Tablet(s) PO daily 05/17/2018 04/11/2019 Active hydrocodone 10 mg-acetaminophen 325 mg tablet RxNorm: 796730 2 Tablet(s) PO scheduled TID 04/19/2018 05/18/2018 Inactive Not to exceed 3gm/24hr acetaminophen lorazepam 0.5 mg tablet RxNorm: 522213 1 Tablet(s) PO BID and 1 tab q 6 hours prn 04/07/2018 05/23/2018 Inactive hyoscyamine 0.125 mg disintegrating tablet RxNorm: 2322187 Tablet(s) 1-2 Tablet(s) PO Q8 as needed 03/31/2018 05/26/2018 Inactive Duragesic 75 mcg/hr transdermal patch RxNorm: 843752 1 Patch TD Q72H 03/31/2018 04/29/2018 Inactive fentanyl 100 mcg/hr transdermal patch RxNorm: 146300 1 Patch TD Q72H 03/31/2018 04/29/2018 Inactive carvedilol 3.125 mg tablet RxNorm: 665192 Tablet(s) GIVE 1 TABLET VIA PEG TUBE 2 TIMES A DAY 03/30/2018 06/27/2018 Active Generic For:COREG 3.125MG 10/22/2017 9:23:30 AM Voltaren 1 % topical gel RxNorm: 964959 APPLY 4 GRAMS TO RIGHT KNEE FOUR TIMES DAILY 03/30/2018 04/22/2018 Inactive Generic For:VOLTAREN GEL 1% 03/30/2018 11:14:57 AM hydrocodone 10 mg-acetaminophen 325 mg tablet RxNorm: 079387 2 Tablet(s) PO scheduled TID 03/23/2018 04/18/2018 Inactive Not to exceed 3gm/24hr acetaminophen albuterol sulfate concentrate 5 mg/mL(0.5 %) solution for nebulization RxNorm: 367964 1 Vial Milliliter(s) INH TID PRN as needed congestion 03/18/2018 No Stop Date Active cefdinir 300 mg capsule RxNorm: 107198 1 Capsule(s) PO BID 03/18/2018 03/24/2018 Inactive Zithromax Z-Eliu 250 mg tablet RxNorm: 463630 Tablet(s) PO 03/18/2018 05/16/2018 Inactive Voltaren 1 % topical gel RxNorm: 047517 4 Gram(s) TOP QID 03/18/2018 03/29/2018 Inactive hydrochlorothiazide 25 mg tablet RxNorm: 937993 GIVE 1 TABLET VIA PEG TUBE ONCE DAILY 03/11/2018 09/06/2018 Active Generic For:HYDRODIURIL 25 MG TABLET 03/11/2018 9:15:32 AM fentanyl 100 mcg/hr transdermal patch RxNorm: 271983 1 Patch TD Q72H 03/02/2018 03/30/2018 Inactive Duragesic 75 mcg/hr transdermal patch RxNorm: 387068 1 Patch TD Q72H 03/02/2018 03/30/2018 Inactive hydrocodone 10 mg-acetaminophen 325 mg tablet RxNorm: 145331 2 Tablet(s) PO scheduled TID 02/18/2018 03/22/2018 Inactive Not to exceed 3gm/24hr acetaminophen hyoscyamine 0.125 mg disintegrating tablet RxNorm: 8621197 Tablet(s) 1-2 Tablet(s) PO Q8 as needed 02/08/2018 03/30/2018 Inactive fentanyl 100 mcg/hr transdermal patch RxNorm: 143435 1 Patch TD Q72H 02/04/2018 03/01/2018 Inactive hydrocodone 10 mg-acetaminophen 325 mg tablet RxNorm: 454739 2 Tablet(s) PO scheduled TID 02/04/2018 02/17/2018 Inactive Not to exceed 3gm/24hr acetaminophen Duragesic 75 mcg/hr transdermal patch RxNorm: 667218 1 Patch TD Q72H 02/04/2018 03/01/2018 Inactive Levemir FlexTouch U-100 Insulin 100 unit/mL (3 mL) subcutaneous pen RxNorm: 115863 4 Unit(s) SQ QHS 01/07/2018 No Stop Date Active Duragesic 75 mcg/hr transdermal patch RxNorm: 534992 1 Patch TD Q72H 01/07/2018 02/03/2018 Inactive fentanyl 100 mcg/hr transdermal patch RxNorm: 605169 1 Patch TD Q72H 01/07/2018 02/03/2018 Inactive hydrocodone 10 mg-acetaminophen 325 mg tablet RxNorm: 345296 2 Tablet(s) PO scheduled TID 01/05/2018 02/03/2018 Inactive Not to exceed 3gm/24hr acetaminophen hydrocodone 10 mg-acetaminophen 325 mg tablet RxNorm: 014108 2 Tablet(s) PO scheduled TID and 1 tab q 4 as needed 01/04/2018 01/04/2018 Inactive Not to exceed 3gm/24hr acetaminophen cyanocobalamin (vit B-12) 1,000 mcg tablet RxNorm: 555305 1 Tablet(s) PO daily 12/28/2017 11/22/2018 Active baclofen 10 mg tablet RxNorm: 805465 Tablet(s) TAKE 1 TABLET THREE TIMES DAILY VIA STOMACH TUBE 12/27/2017 05/25/2018 Inactive 10/07/2017 5:36:15 PM 10/07/2017 5:36:13 PM N O T I C E Last quantity doesn't match original quantity Duragesic 75 mcg/hr transdermal patch RxNorm: 682094 1 Patch TD Q72H 12/22/2017 01/06/2018 Inactive fentanyl 100 mcg/hr transdermal patch RxNorm: 934620 1 Patch TD Q72H 12/22/2017 01/06/2018 Inactive hydrocodone 10 mg-acetaminophen 325 mg tablet RxNorm: 263064 2 Tablet(s) PO scheduled TID and 1 tab q 4 as needed 12/20/2017 01/03/2018 Inactive Not to exceed 3gm/24hr acetaminophen hyoscyamine 0.125 mg disintegrating tablet RxNorm: 0277462 1-2 Tablet(s) PO Q8 as needed 12/14/2017 02/07/2018 Inactive Duragesic 75 mcg/hr transdermal patch RxNorm: 526205 1 Patch TD Q72H 12/06/2017 12/21/2017 Inactive fentanyl 100 mcg/hr transdermal patch RxNorm: 192324 1 Patch TD Q72H 12/06/2017 12/21/2017 Inactive hydrocodone 10 mg-acetaminophen 325 mg tablet RxNorm: 317559 2 Tablet(s) PO scheduled TID and 1 tab q 4 as needed 11/29/2017 12/19/2017 Inactive Not to exceed 3gm/24hr acetaminophen Duragesic 75 mcg/hr transdermal patch RxNorm: 152028 1 Patch TD Q72H 11/11/2017 12/05/2017 Inactive hydrocodone 10 mg-acetaminophen 325 mg tablet RxNorm: 324165 2 Tablet(s) PO scheduled TID and 1 tab q 4 as needed 11/09/2017 11/28/2017 Inactive Not to exceed 3gm/24hr acetaminophen Levemir FlexTouch U-100 Insulin 100 unit/mL (3 mL) subcutaneous pen RxNorm: 499055 8 Unit(s) SQ QHS 11/09/2017 01/06/2018 Inactive fentanyl 100 mcg/hr transdermal patch RxNorm: 643737 1 Patch TD Q72H 2017 12/05/2017 Inactive hyoscyamine 0.125 mg disintegrating tablet RxNorm: 3820292 1-2 Tablet(s) PO Q8 as needed 11/03/2017 12/13/2017 Inactive carvedilol 3.125 mg tablet RxNorm: 621046 GIVE 1 TABLET VIA PEG TUBE 2 TIMES A DAY 10/22/2017 01/19/2018 Inactive Generic For:COREG 3.125MG 10/22/2017 9:23:30 AM hydrocodone 10 mg-acetaminophen 325 mg tablet RxNorm: 580381 2 Tablet(s) PO scheduled TID and 1 tab q 4 as needed 10/22/2017 2017 Inactive Not to exceed 3gm/24hr acetaminophen fentanyl 100 mcg/hr transdermal patch RxNorm: 986530 1 Patch TD Q72H 10/20/2017 11/07/2017 Inactive Duragesic 75 mcg/hr transdermal patch RxNorm: 570069 1 Patch TD Q72H 10/20/2017 11/10/2017 Inactive lorazepam 0.5 mg tablet RxNorm: 471425 1 Tablet(s) PO BID and 1 tab q 6 hours prn 10/18/2017 No Stop Date Active baclofen 10 mg tablet RxNorm: 933482 TAKE 1 TABLET THREE TIMES DAILY VIA STOMACH TUBE 10/07/2017 12/26/2017 Inactive 10/07/2017 5:36:15 PM 10/07/2017 5:36:13 PM N O T I C E Last quantity doesn't match original quantity cranberry extract 500 mg tablet RxNorm: 5402339 1 Tablet(s) PO QAM 10/04/2017 01/31/2018 Inactive Cipro 500 mg tablet RxNorm: 802843 1 Tablet(s) PO BID 10/04/2017 10/03/2017 Inactive dc keflex hydrocodone 10 mg-acetaminophen 325 mg tablet RxNorm: 403961 2 Tablet(s) PO scheduled TID as needed 10/04/2017 10/21/2017 Inactive Not to exceed 3gm/24hr acetaminophen cranberry extract 500 mg tablet RxNorm: 7916035 1 Tablet(s) PO QAM 10/04/2017 10/03/2017 Inactive Cipro 500 mg tablet RxNorm: 589550 1 Tablet(s) PO BID 10/04/2017 10/10/2017 Inactive dc keflex Duragesic 75 mcg/hr transdermal patch RxNorm: 277741 1 Patch TD Q72H 09/20/2017 10/19/2017 Inactive fentanyl 100 mcg/hr transdermal patch RxNorm: 779268 1 Patch TD Q72H 09/20/2017 10/19/2017 Inactive hyoscyamine 0.125 mg disintegrating tablet RxNorm: 2508259 1 Tablet(s) PO TID and 1 Tablet Q4H prn increased secretions 09/15/2017 11/02/2017 Inactive hydrocodone 10 mg-acetaminophen 325 mg tablet RxNorm: 243684 2 Tablet(s) PO scheduled TID and 1-2 Tabs Q4H PRN pain 09/15/2017 10/03/2017 Inactive Not to exceed 3gm/24hr acetaminophen lorazepam 0.5 mg tablet RxNorm: 952372 1 Tablet(s) PO BID 09/15/2017 10/17/2017 Inactive Lexapro 10 mg tablet RxNorm: 120151 1 Tablet(s) PO daily 09/10/2017 09/14/2017 Inactive Levemir FlexTouch U-100 Insulin 100 unit/mL (3 mL) subcutaneous pen RxNorm: 721746 10 Unit(s) daily 09/09/2017 09/15/2017 Inactive lisinopril 10 mg tablet RxNorm: 457055 1 Tablet(s) PO daily 09/09/2017 05/16/2018 Inactive Duragesic 75 mcg/hr transdermal patch RxNorm: 688319 1 Patch TD Q72H 09/09/2017 09/19/2017 Inactive nystatin 100,000 unit/gram topical cream RxNorm: 077237 1 Gram(s) TOP TID until healed to gaulding 09/06/2017 01/03/2018 Inactive nystatin 100,000 unit/gram topical cream RxNorm: 556911 1 Gram(s) TOP TID until healed to gaulding 09/06/2017 09/05/2017 Inactive hydrocodone 10 mg-acetaminophen 325 mg tablet RxNorm: 816548 2 Tablet(s) PO scheduled TID as needed 08/31/2017 09/14/2017 Inactive Not to exceed 3gm/24hr acetaminophen fentanyl 100 mcg/hr transdermal patch RxNorm: 674352 1 Patch TD Q72H 08/24/2017 09/19/2017 Inactive fentanyl 50 mcg/hr transdermal patch RxNorm: 415402 1 Patch TD Q72H 08/24/2017 09/08/2017 Inactive fentanyl 25 mcg/hr transdermal patch RxNorm: 283253 1 Patch TD Q72H 08/24/2017 08/24/2017 Inactive hyoscyamine 0.125 mg disintegrating tablet RxNorm: 9151243 Tablet(s) 1-2 Tablet(s) PO Q8 as needed 08/23/2017 09/14/2017 Inactive hydrocodone 10 mg-acetaminophen 325 mg tablet RxNorm: 949665 1 Tablet(s) PO scheduled TID et Q6 hours as needed 08/18/2017 08/30/2017 Inactive Not to exceed 3gm/24hr acetaminophen hydrochlorothiazide 25 mg tablet RxNorm: 505098 GIVE 1 TABLET VIA PEG TUBE ONCE DAILY 08/17/2017 02/12/2018 Inactive Generic For:HYDRODIURIL 25 MG TABLET 08/17/2017 9:01:54 AM08/11/2017 10:12:00 AM lorazepam 0.5 mg tablet RxNorm: 650859 1/2 Tablet(s) PO BID 08/03/2017 09/14/2017 Inactive fentanyl 100 mcg/hr transdermal patch RxNorm: 405325 1 Patch TD Q72H 07/26/2017 08/23/2017 Inactive fentanyl 25 mcg/hr transdermal patch RxNorm: 496996 1 Patch TD Q72H 07/26/2017 08/23/2017 Inactive hydrocodone 10 mg-acetaminophen 325 mg tablet RxNorm: 275887 1 Tablet(s) PO scheduled TID et Q6 hours as needed 07/16/2017 08/14/2017 Inactive Not to exceed 3gm/24hr acetaminophen hyoscyamine 0.125 mg disintegrating tablet RxNorm: 8894277 Tablet(s) 1-2 Tablet(s) PO Q8 as needed 07/13/2017 08/01/2017 Inactive baclofen 10 mg tablet RxNorm: 396123 TAKE 1 TABLET THREE TIMES DAILY VIA STOMACH TUBE 07/12/2017 10/06/2017 Inactive 07/12/2017 9:04:08 AM N O T I C E Last quantity doesn't match original quantity lorazepam 0.5 mg tablet RxNorm: 831957 1/2 Tablet(s) PO BID 07/02/2017 08/02/2017 Inactive fentanyl 100 mcg/hr transdermal patch RxNorm: 801983 1 Patch TD Q72H 06/28/2017 07/25/2017 Inactive fentanyl 25 mcg/hr transdermal patch RxNorm: 852176 1 Patch TD Q72H 06/28/2017 07/25/2017 Inactive hyoscyamine 0.125 mg disintegrating tablet RxNorm: 3596070 Tablet(s) 1-2 Tablet(s) PO Q8 as needed 06/03/2017 06/22/2017 Inactive fentanyl 25 mcg/hr transdermal patch RxNorm: 206555 1 Patch TD Q72H 05/26/2017 06/24/2017 Inactive Levemir FlexTouch U-100 Insulin 100 unit/mL (3 mL) subcutaneous pen RxNorm: 501200 20 Unit(s) SQ BID 05/26/2017 09/08/2017 Inactive fentanyl 100 mcg/hr transdermal patch RxNorm: 219149 1 Patch TD Q72H 05/26/2017 06/24/2017 Inactive hydrocodone 10 mg-acetaminophen 325 mg tablet RxNorm: 083326 1 Tablet(s) PO scheduled BID et Q6 hours as needed 05/12/2017 05/11/2017 Inactive hydrocodone 10 mg-acetaminophen 325 mg tablet RxNorm: 640585 1 Tablet(s) PO scheduled TID et Q6 hours as needed 05/12/2017 06/10/2017 Inactive Not to exceed 3gm/24hr acetaminophen docusate sodium 100 mg tablet RxNorm: 7579765 1 Tablet(s) PO BID as needed if no bowel movement 05/10/2017 05/09/2017 Inactive lisinopril 20 mg tablet RxNorm: 228181 1 Tablet(s) PO daily 05/10/2017 09/08/2017 Inactive docusate sodium 100 mg tablet RxNorm: 2548300 1 Tablet(s) PO BID as needed if no bowel movement 05/10/2017 09/14/2017 Inactive fentanyl 25 mcg/hr transdermal patch RxNorm: 187441 1 Patch TD Q72H 05/03/2017 05/25/2017 Inactive lorazepam 0.5 mg tablet RxNorm: 751711 1/2 Tablet(s) PO BID 05/03/2017 07/01/2017 Inactive fentanyl 100 mcg/hr transdermal patch RxNorm: 651203 1 Patch TD Q72H 04/27/2017 05/25/2017 Inactive carvedilol 3.125 mg tablet RxNorm: 339235 Tablet(s) GIVE 1 TABLET VIA PEG TUBE DAILY 04/15/2017 10/21/2017 Inactive Levemir FlexTouch 100 unit/mL (3 mL) subcutaneous insulin pen RxNorm: 785852 10 Unit(s) SQ BID 04/15/2017 2017 Inactive hyoscyamine 0.125 mg disintegrating tablet RxNorm: 4750578 1-2 Tablet(s) PO Q8 as needed 04/14/2017 05/03/2017 Inactive hydrocodone 10 mg-acetaminophen 325 mg tablet RxNorm: 230178 1 Tablet(s) PO scheduled BID et Q6 hours as needed 04/13/2017 05/02/2017 Inactive baclofen 10 mg tablet RxNorm: 729371 TAKE 1 TABLET THREE TIMES DAILY VIA STOMACH TUBE 04/08/2017 05/22/2017 Inactive 04/08/2017 9:32:07 AM fentanyl 25 mcg/hr transdermal patch RxNorm: 298168 1 Patch TD Q72H 04/05/2017 05/02/2017 Inactive lidocaine 10 mg/mL (1 %) injection solution RxNorm: 5848582 1 Milliliter(s) Inj daily Mix with rocephin 03/31/2017 03/30/2017 Inactive Pt resides at [facility] lidocaine 10 mg/mL (1 %) injection solution RxNorm: 4790098 1 Milliliter(s) Inj daily Mix with rocephin 03/31/2017 04/06/2017 Inactive Pt resides at [facility] fentanyl 100 mcg/hr transdermal patch RxNorm: 246903 1 Patch TD Q72H 03/29/2017 04/26/2017 Inactive nystatin 100,000 unit/gram topical powder RxNorm: 542017 APPLY UNDER BREASTS TWICE DAILY FOR YEAST SKIN INFECTION AND APPLY TO UNDERARM AND ABDOMINAL FOLDS AND PERIAREA TWICE DAILY 03/29/2017 03/28/2017 Inactive 03/27/2017 9:12:50 AM nystatin 100,000 unit/gram topical powder RxNorm: 607156 APPLY UNDER BREASTS TWICE DAILY FOR YEAST SKIN INFECTION AND APPLY TO UNDERARM AND ABDOMINAL FOLDS AND PERIAREA TWICE DAILY 03/29/2017 09/14/2017 Inactive 03/29/2017 9:42:55 AM03/27/2017 9:12:50 AM hyoscyamine 0.125 mg disintegrating tablet RxNorm: 8192383 1-2 Tablet(s) PO Q8 as needed 03/08/2017 03/27/2017 Inactive fentanyl 25 mcg/hr transdermal patch RxNorm: 490846 1 Patch TD Q72H 03/02/2017 03/31/2017 Inactive hydrocodone 10 mg-acetaminophen 325 mg tablet RxNorm: 473720 1 Tablet(s) PO scheduled BID et Q6 hours as needed 02/17/2017 03/18/2017 Inactive fentanyl 100 mcg/hr transdermal patch RxNorm: 740907 1 Patch TD Q72H 02/17/2017 03/18/2017 Inactive Lexapro 10 mg tablet RxNorm: 002199 1 Tablet(s) PO daily 02/05/2017 04/14/2017 Inactive Lexapro 10 mg tablet RxNorm: 283255 1 Tablet(s) PO daily 02/05/2017 02/04/2017 Inactive fentanyl 25 mcg/hr transdermal patch RxNorm: 065129 1 Patch TD Q72H 02/04/2017 03/01/2017 Inactive cyanocobalamin (vit B-12) 1,000 mcg tablet RxNorm: 716079 1 Tablet(s) PO daily 01/18/2017 12/13/2017 Inactive hyoscyamine 0.125 mg disintegrating tablet RxNorm: 9568175 Tablet(s) 1-2 Tablet(s) PO Q8 as needed 01/18/2017 02/06/2017 Inactive baclofen 10 mg tablet RxNorm: 389921 TAKE 1 TABLET THREE TIMES DAILY VIA STOMACH TUBE 01/04/2017 02/17/2017 Inactive 01/04/2017 9:25:18 AM fentanyl 100 mcg/hr transdermal patch RxNorm: 616983 1 Patch TD Q72H 12/25/2016 01/23/2017 Inactive hydrochlorothiazide 25 mg tablet RxNorm: 815696 Tablet(s) GIVE 1 TABLET VIA PEG TUBE ONCE A DAY 12/14/2016 07/11/2017 Inactive fentanyl 100 mcg/hr transdermal patch RxNorm: 204200 1 Patch TD Q72H 11/25/2016 12/24/2016 Inactive hyoscyamine 0.125 mg disintegrating tablet RxNorm: 6823425 Tablet(s) 1-2 Tablet(s) PO Q8 as needed 11/25/2016 12/14/2016 Inactive nystatin 100,000 unit/gram topical powder RxNorm: 108159 APPLY UNDER BREASTS TWICE DAILY FOR YEAST SKIN INFECTION AND APPLY TO UNDERARM AND ABDOMINAL FOLDS AND PERIAREA TWICE DAILY 11/24/2016 01/22/2017 Inactive 11/24/2016 9:34:02 AM hydrocodone 10 mg-acetaminophen 325 mg tablet RxNorm: 177149 1 Tablet(s) PO scheduled BID et Q6 hours as needed 11/02/2016 12/01/2016 Inactive cyanocobalamin (vit B-12) 1,000 mcg tablet RxNorm: 977254 1 Tablet(s) PO daily 11/02/2016 01/17/2017 Inactive hyoscyamine 0.125 mg disintegrating tablet RxNorm: 7727605 1-2 Tablet(s) PO Q8 as needed 10/19/2016 11/24/2016 Inactive fentanyl 100 mcg/hr transdermal patch RxNorm: 644923 1 Patch TD Q72H 10/13/2016 11/11/2016 Inactive hydrocodone 10 mg-acetaminophen 325 mg tablet RxNorm: 894836 1 Tablet(s) PO scheduled BID et Q6 hours as needed 10/05/2016 11/01/2016 Inactive baclofen 10 mg tablet RxNorm: 281559 TAKE 1 TABLET THREE TIMES DAILY VIA STOMACH TUBE 10/01/2016 11/14/2016 Inactive 10/01/2016 9:24:37 AM carvedilol 3.125 mg tablet RxNorm: 018480 GIVE 1 TABLET VIA PEG TUBE 2 TIMES A DAY 09/30/2016 12/28/2016 Inactive Generic For:COREG 3.125MG 09/30/2016 1:12:28 PM09/25/2016 9:06:11 AM Probiotic Blend 2 million cell-50 mg capsule RxNorm: 1 Capsule(s) PO BID 09/17/2016 09/23/2016 Inactive Keflex 500 mg capsule RxNorm: 675608 1 Capsule(s) PO TID 09/17/2016 09/23/2016 Inactive hyoscyamine 0.125 mg/5 mL oral elixir RxNorm: 1053766 5 Milliliter(s) PO TID 09/08/2016 09/17/2016 Inactive hyoscyamine 0.125 mg/5 mL oral elixir RxNorm: 5996709 5 Milliliter(s) PO TID 09/08/2016 09/07/2016 Inactive hyoscyamine 0.125 mg disintegrating tablet RxNorm: 6973852 1-2 Tablet(s) PO Q8 as needed 09/07/2016 10/18/2016 Inactive fentanyl 100 mcg/hr transdermal patch RxNorm: 650169 1 Patch TD Q72H 09/01/2016 09/30/2016 Inactive ranitidine 150 mg tablet RxNorm: 220774 1 Tablet(s) PO BID 08/25/2016 No Stop Date Active hydrocodone 10 mg-acetaminophen 325 mg tablet RxNorm: 627145 1 Tablet(s) PO scheduled BID et Q6 hours as needed 08/24/2016 09/22/2016 Inactive cyanocobalamin (vit B-12) 1,000 mcg tablet RxNorm: 707925 1 Tablet(s) PO daily 08/12/2016 11/01/2016 Inactive cyanocobalamin (vit B-12) 1,000 mcg tablet RxNorm: 152311 1 Tablet(s) PO daily 08/12/2016 08/11/2016 Inactive hydrocodone 10 mg-acetaminophen 325 mg tablet RxNorm: 472040 1-2 Tablet(s) PO Q6 as needed 08/03/2016 08/17/2016 Inactive fentanyl 100 mcg/hr transdermal patch RxNorm: 031123 1 Patch TD Q72H 08/03/2016 08/31/2016 Inactive nystatin 100,000 unit/gram topical powder RxNorm: 155958 APPLY UNDER BREASTS TWICE DAILY FOR YEAST SKIN INFECTION AND APPLY TO UNDERARM AND ABDOMINAL FOLDS AND PERIAREA TWICE DAILY 07/17/2016 09/14/2016 Inactive 07/17/2016 3:56:54 PM fentanyl 100 mcg/hr transdermal patch RxNorm: 617062 1 Patch TD Q72H 07/15/2016 08/02/2016 Inactive lisinopril 20 mg tablet RxNorm: 267889 1 Tablet(s) PO daily 07/02/2016 03/28/2017 Inactive hydrocodone 10 mg-acetaminophen 325 mg tablet RxNorm: 527124 1-2 Tablet(s) PO Q6 as needed 07/01/2016 07/15/2016 Inactive Xarelto 20 mg tablet RxNorm: 1218656 Tablet(s) TAKE 1 TABLET VIA PEG TUBE AT BEDTIME 06/19/2016 04/14/2017 Inactive fentanyl 100 mcg/hr transdermal patch RxNorm: 011440 1 Patch TD Q72H 06/17/2016 07/14/2016 Inactive nystatin 100,000 unit/gram topical powder RxNorm: 484499 APPLY TO UNDER BREASTS TWICE DAILY FOR YEAST SKIN INFECTION AND APPLY TO UNDERARM AND ABDOMINAL FOLDS AND PERIAREA TWICE DAILY 06/15/2016 07/16/2016 Inactive Generic For:MYCOSTATIN 100,000 UNITS/GM PW 06/15/2016 12:28:26 PM fentanyl 100 mcg/hr transdermal patch RxNorm: 750999 1 Patch TD Q72H 06/05/2016 06/16/2016 Inactive hydrocodone 10 mg-acetaminophen 325 mg tablet RxNorm: 565405 1-2 Tablet(s) PO Q6 as needed 06/02/2016 06/16/2016 Inactive Probiotic Blend 2 million cell-50 mg capsule RxNorm: 1 Capsule(s) PO BID 05/13/2016 05/19/2016 Inactive nitrofurantoin 100 mg capsule RxNorm: 906856 1 Capsule(s) PO BID 05/13/2016 05/19/2016 Inactive nitrofurantoin 100 mg capsule RxNorm: 722707 1 Capsule(s) PO BID 05/13/2016 05/12/2016 Inactive fentanyl 75 mcg/hr transdermal patch RxNorm: 397875 1 Patch TD Q72H 05/13/2016 06/04/2016 Inactive Keflex 500 mg capsule RxNorm: 383173 1 Capsule(s) PO TID 05/07/2016 05/13/2016 Inactive Patient at [facility] Keflex 500 mg capsule RxNorm: 270830 1 Capsule(s) PO TID 05/07/2016 05/06/2016 Inactive hydrocodone 10 mg-acetaminophen 325 mg tablet RxNorm: 708853 1-2 Tablet(s) PO Q6 as needed 05/04/2016 06/01/2016 Inactive hydrochlorothiazide 25 mg tablet RxNorm: 956952 Tablet(s) GIVE 1 TABLET VIA PEG TUBE ONCE A DAY 04/29/2016 11/24/2016 Inactive hydrochlorothiazide 25 mg tablet RxNorm: 900410 GIVE 1 TABLET VIA PEG TUBE ONCE A DAY 04/22/2016 04/28/2016 Inactive Generic For:HYDRODIURIL 25 MG TABLET refill request fentanyl 75 mcg/hr transdermal patch RxNorm: 665437 1 Patch TD Q72H 04/17/2016 05/12/2016 Inactive Xarelto 20 mg tablet RxNorm: 5123035 TAKE 1 TABLET VIA PEG TUBE AT BEDTIME 04/16/2016 06/14/2016 Inactive 04/16/2016 9:08:52 AM citalopram 40 mg tablet RxNorm: 908988 1 Tablet(s) PO daily 04/02/2016 02/25/2017 Inactive citalopram 40 mg tablet RxNorm: 393631 1 Tablet(s) PO daily 03/27/2016 04/01/2016 Inactive hydrocodone 10 mg-acetaminophen 325 mg tablet RxNorm: 284315 1-2 Tablet(s) PO Q6 as needed 03/27/2016 04/25/2016 Inactive fentanyl 75 mcg/hr transdermal patch RxNorm: 278619 1 Patch TD Q72H 03/18/2016 04/16/2016 Inactive hydrocodone 10 mg-acetaminophen 325 mg tablet RxNorm: 588711 1-2 Tablet(s) PO Q6 as needed 03/11/2016 03/26/2016 Inactive citalopram 40 mg tablet RxNorm: 382192 1 Tablet(s) PO daily 03/04/2016 03/26/2016 Inactive Levemir FlexTouch U-100 Insulin 100 unit/mL (3 mL) subcutaneous pen RxNorm: 049609 20 Unit(s) SQ BID 03/02/2016 09/27/2016 Inactive lisinopril 20 mg tablet RxNorm: 107992 1 Tablet(s) PO daily 02/25/2016 07/01/2016 Inactive Ativan 0.5 mg tablet RxNorm: 445208 1 Tablet(s) PO Q4H as needed 02/18/2016 04/14/2017 Inactive Xarelto 20 mg tablet RxNorm: 5826756 TAKE 1 TABLET VIA PEG TUBE AT BEDTIME 02/12/2016 04/11/2016 Inactive 02/12/2016 9:08:22 AM hydrocodone 10 mg-acetaminophen 325 mg tablet RxNorm: 453969 1-2 Tablet(s) PO Q6 as needed 02/12/2016 03/10/2016 Inactive fentanyl 75 mcg/hr transdermal patch RxNorm: 812075 1 Patch TD Q72H 02/11/2016 03/11/2016 Inactive citalopram 20 mg tablet RxNorm: 058727 1 Tablet(s) PO daily 01/28/2016 03/03/2016 Inactive fentanyl 75 mcg/hr transdermal patch RxNorm: 358629 1 TD Q72H 01/17/2016 02/10/2016 Inactive hydrocodone 10 mg-acetaminophen 325 mg tablet RxNorm: 215382 1-2 Tablet(s) PO Q6 as needed 01/07/2016 02/05/2016 Inactive fentanyl 50 mcg/hr transdermal patch RxNorm: 887712 1 TD Q72H 01/01/2016 01/16/2016 Inactive fentanyl 50 mcg/hr transdermal patch RxNorm: 988293 1 TD q 3 days 12/26/2015 12/31/2015 Inactive Xarelto 20 mg tablet RxNorm: 5867529 TAKE 1 TABLET VIA PEG TUBE AT BEDTIME 12/17/2015 02/11/2016 Inactive 12/16/2015 3:27:57 PM12/14/2015 9:45:17 AM hydrocodone 10 mg-acetaminophen 325 mg tablet RxNorm: 725331 1-2 Tablet(s) PO Q6 as needed 12/06/2015 01/04/2016 Inactive fentanyl 50 mcg/hr transdermal patch RxNorm: 050956 1 TD q 3 days 12/06/2015 12/25/2015 Inactive fentanyl 25 mcg/hr transdermal patch RxNorm: 969866 1 TD q 3 days 11/18/2015 12/05/2015 Inactive Zithromax Z-Eliu 250 mg tablet RxNorm: 194551 1 Tablet(s) PO UD 10/09/2015 02/26/2016 Inactive z pack as directed- please write out instructions- pt at [facility] nystatin 100,000 unit/gram topical powder RxNorm: 442849 APPLY TO UNDER BREASTS TWICE DAILY FOR YEAST SKIN INFECTION AND APPLY TO UNDERARM AND ABDOMINAL FOLDS AND PERIAREA TWICE DAILY 10/07/2015 12/05/2015 Inactive Generic For:MYCOSTATIN 100,000 UNITS/GM PW 10/05/2015 12:07:35 PM fentanyl 25 mcg/hr transdermal patch RxNorm: 709772 1 TD q 3 days 10/03/2015 11/01/2015 Inactive fentanyl 25 mcg/hr transdermal patch RxNorm: 818826 1 TD q 3 days 09/27/2015 10/02/2015 Inactive fentanyl 25 mcg/hr transdermal patch RxNorm: 118799 1 TD q 3 days 09/17/2015 09/26/2015 Inactive fentanyl 25 mcg/hr transdermal patch RxNorm: 225142 1 TD q 3 days 08/30/2015 09/16/2015 Inactive hydrocodone 5 mg-acetaminophen 325 mg tablet RxNorm: 740322 1 Tablet(s) PO Q6 as needed 08/30/2015 09/28/2015 Inactive Diflucan 100 mg tablet RxNorm: 297595 1 Tablet(s) Miscellaneous per peg daily 07/29/2015 08/04/2015 Inactive fentanyl 25 mcg/hr transdermal patch RxNorm: 979728 1 TD q 3 days 07/18/2015 08/29/2015 Inactive hydrocodone 5 mg-acetaminophen 325 mg tablet RxNorm: 021278 1 Tablet(s) PO Q6 as needed 07/18/2015 08/29/2015 Inactive Diflucan 100 mg tablet RxNorm: 012581 1 Tablet(s) Miscellaneous per peg daily 06/17/2015 06/23/2015 Inactive Senna-S 8.6 mg-50 mg tablet RxNorm: 558989 1 Tablet(s) PO daily as needed constipation No Start Date Active Dulcolax (bisacodyl) 10 mg rectal suppository RxNorm: 547850 1 Suppository RTL daily as needed constipation No Start Date Active polyethylene glycol 3350 17 gram/dose oral powder RxNorm: 188243 17 Gram(s) PO daily as needed constipation No Start Date Active baclofen 10 mg tablet RxNorm: 014361 1 Tablet(s) PO TID No Start Date 09/30/2016 Inactive Ativan 0.5 mg tablet RxNorm: 865832 1 Tablet(s) PO Q4H as needed No Start Date 02/17/2016 Inactive ranitidine 150 mg tablet RxNorm: 583076 1 Tablet(s) PO daily No Start Date 08/24/2016 Inactive carvedilol 3.125 mg tablet RxNorm: 221440 1 Tablet(s) PO daily No Start Date 09/29/2016 Inactive citalopram 40 mg tablet RxNorm: 414804 1 Tablet(s) PO daily No Start Date 01/27/2016 Inactive Probiotic Blend oral RxNorm: oral No Start Date 05/12/2016 Inactive hydrochlorothiazide 25 mg tablet RxNorm: 631876 1 Tablet(s) PO daily No Start Date 04/21/2016 Inactive albuterol sulfate concentrate 5 mg/mL(0.5 %) solution for nebulization RxNorm: 850711 1 Vial INH daily as needed congestion No Start Date 03/17/2018 Inactive Levemir FlexTouch 100 unit/mL (3 mL) subcutaneous insulin pen RxNorm: 063543 10 Unit(s) SQ BID No Start Date 03/01/2016 Inactive Zithromax Z-Eliu 250 mg tablet RxNorm: 706454 1 Tablet(s) PO UD No Start Date 10/08/2015 Inactive z pack as directed- please write out instructions- pt at [facility] nystatin 100,000 unit/gram topical powder RxNorm: 859797 Gram(s) TOP BID as needed No Start Date 10/06/2015 Inactive pravastatin 40 mg tablet RxNorm: 121577 Tablet(s) PO daily No Start Date 04/14/2017 Inactive lorazepam 0.5 mg tablet RxNorm: 667317 1/2 Tablet(s) PO BID No Start Date 05/02/2017 Inactive Xarelto 20 mg tablet RxNorm: 2188465 1 Tablet(s) PO daily No Start Date 12/16/2015 Inactive fentanyl 25 mcg/hr transdermal patch RxNorm: 759086 1 TD q 3 days No Start Date 07/17/2015 Inactive lisinopril 20 mg tablet RxNorm: 166109 1 Tablet(s) PO daily No Start Date 02/24/2016 Inactive hydrocodone 5 mg-acetaminophen 325 mg tablet RxNorm: 130538 1 Tablet(s) PO Q6 as needed No Start Date 07/17/2015 Inactive citalopram 40 mg tablet RxNorm: 200038 1 Tablet(s) PO daily No Start Date 03/03/2016 Inactive hyoscyamine 0.125 mg disintegrating tablet RxNorm: 4893487 1-2 Tablet(s) PO Q8 as needed No Start Date 09/06/2016 Inactive Medication Administered No Medication Administered data Immunizations No Immunization data Assessments Condition Codes Effective Dates Chronic pain syndrome ICD-10: G89.4 ICD-9: 338.4 05/17/2018 Essential (primary) hypertension ICD-10: I10 ICD-9: [...] Code Item Item Code Result Date %Hba1C Wxh299 % HbA1c 01770- 6 5.5 % 05/18/2018 %Hba1C Rrk437 Gluc Ave 111 mg/dL 05/18/2018 Cbc With [...] 32.3 pg 05/18/2018 Cbc With Differential Ord2 Grayson% 4.9 % 05/18/2018 Cbc With Differential Ord2 [...] 1.81 K/ul 05/18/2018 Cbc With Differential Ord2 Grayson ABS# 0.4 K/ul 05/18/2018 Cbc With Differential Ord2 Eos ABS# 0.6 K/ul 05/18/2018 Cbc With Differential Ord2 Baso ABS# 0.0 K/ul 05/18/2018 Tsh Ord6 TSH (3rd IS) 0.85 uIU/mL 05/18/2018 Comp Metabolic Pnd397 NA 137 mEq/L 05/18/2018 Comp Metabolic Bxk694 K 4.2 mEq/L 05/18/2018 Comp Metabolic Ucw001 CL 97 mEq/L 05/18/2018 Comp Metabolic Yku103 CO2 34.0 mEq/L 05/18/2018 Comp Metabolic Pij170 ANION GAP 10 05/18/2018 Comp Metabolic Dzm721 GLUCOSE 177 mg/dL 05/18/2018 Comp Metabolic Tct666 Creat 0.5 mg/dL 05/18/2018 Comp Metabolic Hnk364 eGFR 122 ml/min/1.73m2 05/18/2018 Comp Metabolic Kep260 BUN 23 mg/dL 05/18/2018 Comp Metabolic Igo862 B/C Ratio 43.4 Ratio 05/18/2018 Comp Metabolic Fvc589 CALCIUM 9.2 mg/dL 05/18/2018 Comp Metabolic Wtd091 ALK PHOS 86 U/L 05/18/2018 Comp Metabolic Xue463 AST(SGOT) 14 U/L 05/18/2018 Comp Metabolic Vnl680 ALT(SGPT) 9 U/L 05/18/2018 Comp Metabolic Amc228 BILI T 0.3 mg/dL 05/18/2018 Comp Metabolic Rqg603 ALBUMIN 3.7 g/dL 05/18/2018 Comp Metabolic Mzc201 TPRO 6.2 g/dL 05/18/2018 Comp Metabolic Jok210 GLOB 2.6 g/dL 05/18/2018 Comp Metabolic Xop375 A/G Ratio 1.4 Ratio 05/18/2018 Comp Metabolic Tth971 Osmo 282 mOsmo 05/18/2018 A1C Frequency Ajv335 A1CF 42429-4 [place] [facility] [place]: 02-14-2018 05/10/2018 Cbc With Differential [...] 30.7 pg 02/14/2018 Cbc With Differential Ord2 Grayson% 7.4 % 02/14/2018 Cbc With Differential Ord2 [...] 2.14 K/ul 02/14/2018 Cbc With Differential Ord2 [place]ayson ABS# 0.5 K/ul 02/14/2018 Cbc With Differential Ord2 Eos ABS# 0.3 K/ul 02/14/2018 Cbc With Differential Ord2 Baso ABS# 0.0 K/ul 02/14/2018 Comp Metabolic Euu418 NA 142 mEq/L 02/14/2018 Comp Metabolic Qbh107 K 4.5 mEq/L 02/14/2018 Comp Metabolic Jod183 CL 97 mEq/L 02/14/2018 Comp Metabolic Acu314 CO2 41.0 mEq/L 02/14/2018 Comp Metabolic Dhe039 ANION GAP 9 02/14/2018 Comp Metabolic Qmo903 GLUCOSE 111 mg/dL 02/14/2018 Comp Metabolic Rxe767 Creat 0.6 mg/dL 02/14/2018 Comp Metabolic Lky514 eGFR 108 ml/min/1.73m2 02/14/2018 Comp Metabolic Hkd584 BUN 32 mg/dL 02/14/2018 Comp Metabolic Ypi950 B/C Ratio 54.2 Ratio 02/14/2018 Comp Metabolic Yvl505 CALCIUM 8.9 mg/dL 02/14/2018 Comp Metabolic Fxo880 ALK PHOS 81 U/L 02/14/2018 Comp Metabolic Atc987 AST(SGOT) 14 U/L 02/14/2018 Comp Metabolic Uwe470 ALT(SGPT) 11 U/L 02/14/2018 Comp Metabolic Llz587 BILI T 0.3 mg/dL 02/14/2018 Comp Metabolic Bhe334 ALBUMIN 3.4 g/dL 02/14/2018 Comp Metabolic Qpk502 TPRO 6.3 g/dL 02/14/2018 Comp Metabolic Yyl290 GLOB 2.9 g/dL 02/14/2018 Comp Metabolic Ylq753 A/G Ratio 1.2 Ratio 02/14/2018 Comp Metabolic Avq966 Osmo 291 mOsmo 02/14/2018 %Hba1C Yjf939 % HbA1c 91854- 6 5.5 % 02/14/2018 %Hba1C Yap384 Gluc Ave 111 mg/dL 02/14/2018 Prealbumin 212371 PREALBUMIN 27 mg/dL 11/24/2017 %Hba1C Fsw887 % HbA1c 30757- 6 5.5 % 11/04/2017 %Hba1C Kuo874 Gluc Ave 111 mg/dL 11/04/2017 Culture Urine [id number] URINE CULTURE SEE NOTES 10/04/2017 Culture Urine [id number] Continued Results 10/04/2017 Urine Culture Ucult Complete [...] Ord28 U-Com Culture to follow 10/01/2017 B12 Jbx061 B12 >1500.00 pg/ml 02/19/2017 Cbc With Differential [...] 31.5 pg 02/02/2017 Cbc With Differential Ord2 Grayson% 8.3 % 02/02/2017 Cbc With Differential Ord2 [...] 2.28 K/ul 02/02/2017 Cbc With Differential Ord2 [place] ABS# 0.6 K/ul 02/02/2017 Cbc With Differential Ord2 Eos ABS# 0.4 K/ul 02/02/2017 Cbc With Differential Ord2 Baso ABS# 0.0 K/ul 02/02/2017 %Hba1C Bdr909 % HbA1c 77658- 6 5.2 % 02/02/2017 %Hba1C Xhg124 Gluc Ave 103 mg/dL 02/02/2017 Comp Metabolic Xyj259 NA 138 mEq/L 02/02/2017 Comp Metabolic Ncg883 K 4.5 mEq/L 02/02/2017 Comp Metabolic Zby793 CL 98 mEq/L 02/02/2017 Comp Metabolic Mgs803 CO2 37.0 mEq/L 02/02/2017 Comp Metabolic Cvy168 ANION GAP 8 02/02/2017 Comp Metabolic Ail244 GLUCOSE 94 mg/dL 02/02/2017 Comp Metabolic Xqw449 Creat 0.7 mg/dL 02/02/2017 Comp Metabolic Ylz813 eGFR 88 ml/min/1.73m2 02/02/2017 Comp Metabolic Oab892 BUN 36 mg/dL 02/02/2017 Comp Metabolic Dht780 B/C Ratio 50.7 Ratio 02/02/2017 Comp Metabolic Yok364 CALCIUM 9.0 mg/dL 02/02/2017 Comp Metabolic Qep283 ALK PHOS 78 U/L 02/02/2017 Comp Metabolic Vka662 AST(SGOT) 22 U/L 02/02/2017 Comp Metabolic Uot934 ALT(SGPT) 28 U/L 02/02/2017 Comp Metabolic Axk222 BILI T 0.3 mg/dL 02/02/2017 Comp Metabolic Riw430 ALBUMIN 3.3 g/dL 02/02/2017 Comp Metabolic Koa908 TPRO 5.9 g/dL 02/02/2017 Comp Metabolic Ayg054 GLOB 2.6 g/dL 02/02/2017 Comp Metabolic Mwz166 A/G Ratio 1.3 Ratio 02/02/2017 Comp Metabolic Tmq839 Osmo 284 mOsmo 02/02/2017 %Hba1C Ogb330 % HbA1c 91967- 6 5.0 % 10/29/2016 %Hba1C Elj349 Gluc Ave 97 mg/dL 10/29/2016 Culture Urine [id number] URINE CULTURE SEE NOTES 09/21/2016 Culture Urine [id number] Continued Results 09/21/2016 Urine Culture Ucult Complete [...] 32.4 pg 07/30/2016 Cbc With Differential Ord2 Grayson% 7.2 % 07/30/2016 Cbc With Differential Ord2 [...] 2.69 K/ul 07/30/2016 Cbc With Differential Ord2 [place] ABS# 0.5 K/ul 07/30/2016 Cbc With Differential Ord2 Eos ABS# 0.5 K/ul 07/30/2016 Cbc With Differential Ord2 Baso ABS# 0.0 K/ul 07/30/2016 Comp Metabolic Crg483 NA 141 mEq/L 07/30/2016 Comp Metabolic Tbq584 K 4.3 mEq/L 07/30/2016 Comp Metabolic Ewe300 CL 100 mEq/L 07/30/2016 Comp Metabolic Yie668 CO2 33.0 mEq/L 07/30/2016 Comp Metabolic Mtm431 ANION GAP 12 07/30/2016 Comp Metabolic Qtb024 GLUCOSE 64 mg/dL 07/30/2016 Comp Metabolic Rhl085 Creat 0.5 mg/dL 07/30/2016 Comp Metabolic Who297 eGFR 126 ml/min/1.73m2 07/30/2016 Comp Metabolic Qgf832 BUN 25 mg/dL 07/30/2016 Comp Metabolic Kjd937 B/C Ratio 48.1 Ratio 07/30/2016 Comp Metabolic Mcn334 CALCIUM 8.9 mg/dL 07/30/2016 Comp Metabolic Wme413 ALK PHOS 90 U/L 07/30/2016 Comp Metabolic Ady177 AST(SGOT) 22 U/L 07/30/2016 Comp Metabolic Qwl622 ALT(SGPT) 36 U/L 07/30/2016 Comp Metabolic Svw905 BILI T 0.3 mg/dL 07/30/2016 Comp Metabolic Mli974 ALBUMIN 3.4 g/dL 07/30/2016 Comp Metabolic Hui388 TPRO 6.0 g/dL 07/30/2016 Comp Metabolic Ced704 GLOB 2.7 g/dL 07/30/2016 Comp Metabolic Mfw025 A/G Ratio 1.3 Ratio 07/30/2016 Comp Metabolic Lsq778 Osmo 284 mOsmo 07/30/2016 A1C Frequency Imv763 A1CF 19979-3 Last [place] [facility] [place] 05-12-2016 07/30/2016 %Hba1C Omk106 % HbA1c 39954- 6 5.2 % 05/12/2016 %Hba1C Rwt897 Gluc Ave 103 mg/dL 05/12/2016 Culture Urine [id number] URINE CULTURE SEE NOTES 05/11/2016 Urine Culture [...] U-Com Culture to follow 05/06/2016 Culture Urine [id number] URINE CULTURE SEE NOTES 03/17/2016 Culture Urine [id number] Continued Results 03/17/2016 Urine Culture Ucult Complete [...] 32.0 pg 02/11/2016 Cbc With Differential Ord2 Grayson% 9.1 % 02/11/2016 Cbc With Differential Ord2 [...] 2.59 K/ul 02/11/2016 Cbc With Differential Ord2 [place] ABS# 0.6 K/ul 02/11/2016 Cbc With Differential Ord2 Eos ABS# 0.3 K/ul 02/11/2016 Cbc With Differential Ord2 Baso ABS# 0.0 K/ul 02/11/2016 Comp Metabolic Sjl038 NA 137 mEq/L 02/11/2016 Comp Metabolic Suc406 K 4.4 mEq/L 02/11/2016 Comp Metabolic Meq903 CL 100 mEq/L 02/11/2016 Comp Metabolic Muy953 CO2 25.0 mEq/L 02/11/2016 Comp Metabolic Lun588 ANION GAP 16 02/11/2016 Comp Metabolic Rpl822 GLUCOSE 99 mg/dL 02/11/2016 Comp Metabolic Yry164 Creat 0.6 mg/dL 02/11/2016 Comp Metabolic Gfc511 eGFR 99 ml/min/1.73m2 02/11/2016 Comp Metabolic Esk107 BUN 27 mg/dL 02/11/2016 Comp Metabolic Pkw061 B/C Ratio 42.2 Ratio 02/11/2016 Comp Metabolic Sym470 CALCIUM 9.2 mg/dL 02/11/2016 Comp Metabolic Ddb542 ALK PHOS 74 U/L 02/11/2016 Comp Metabolic Fpa834 AST(SGOT) 24 U/L 02/11/2016 Comp Metabolic Vic970 ALT(SGPT) 26 U/L 02/11/2016 Comp Metabolic Xey177 BILI T 0.5 mg/dL 02/11/2016 Comp Metabolic Ihr602 ALBUMIN 3.5 g/dL 02/11/2016 Comp Metabolic Yqp484 TPRO 6.2 g/dL 02/11/2016 Comp Metabolic Ozu357 GLOB 2.7 g/dL 02/11/2016 Comp Metabolic Ssu899 A/G Ratio 1.3 Ratio 02/11/2016 Comp Metabolic Blx415 Osmo 279 mOsmo 02/11/2016 Review of Systems [...] 1: 128/86 Code: 8480-6 BMI: 31.4 Code: 98635-1 Heart Rate 1: 72 bpm Height: 5'1" Weight: 166 lbs 06/17/2015 Blood Pressure 1: 110/78 Code: 8480-6 BMI: 33.3 Code: 83693-3 Heart Rate 1: 74 bpm Height: 5'1" [...] Present Encounters Encounter Performer Location Codes Date ([id number]) 16511 EST. PATIENT, LEVEL IV Diagnosis: Essential (primary) hypertension[ICD10: I10] Diagnosis: Chronic pain syndrome[ICD10: G89.4] Diagnosis: Type 2 diabetes mellitus without complications[ICD10: E11.9] Carlyn Everett MD, [facility] CPT-4: 64854 05/17/2018 ([id number]) 24230 EST. PATIENT, LEVEL IV Diagnosis: Cough[ICD10: R05] Diagnosis: Pneumonia, unspecified organism[ICD10: J18.9] Diagnosis: Pain in right knee[ICD10: M25.561] Carlyn Everett MD, [facility] CPT- 4: 48782 03/18/2018 ([id number]) 89753 EST. PATIENT, LEVEL IV Diagnosis: Type 2 diabetes mellitus without complications[ICD10: E11.9] Diagnosis: Essential (primary) hypertension[ICD10: I10] Diagnosis: Chronic pain syndrome[ICD10: G89.4] Carlyn Everett MD, [facility] CPT-4: 57080 01/07/2018 ([id number]) 03563 EST. PATIENT, LEVEL IV Diagnosis: Essential (primary) hypertension[ICD10: I10] Diagnosis: Type 2 diabetes mellitus without complications[ICD10: E11.9] Carlyn Everett MD, [facility] CPT-4: 82188 2017 ([id number]) 51754 EST. PATIENT, LEVEL IV Diagnosis: Type 2 diabetes mellitus with hyperglycemia[ICD10: E11.65] Diagnosis: Essential (primary) hypertension[ICD10: I10] Diagnosis: Pain in left shoulder[ICD10: M25.512] Diagnosis: Pain in right shoulder[ICD10: M25.511] Diagnosis: Pain in left knee[ICD10: M25.562] Diagnosis: Pain in right knee[ICD10: M25.561] Vonda Everett MD, [facility] CPT- 4: 75039 09/09/2017 [id number] EST. PATIENT, LEVEL IV Diagnosis: Essential (primary) hypertension[ICD10: I10] Diagnosis: Type 2 diabetes mellitus with hyperglycemia[ICD10: E11.65] Diagnosis: Low back pain[ICD10: M54.5] Sunitha Everett MD, [facility] CPT-4: 58778 06/08/2017 ([id number]) 82819 EST. PATIENT, LEVEL IV Diagnosis: Essential (primary) hypertension[ICD10: I10] Diagnosis: Type 2 diabetes mellitus with hyperglycemia[ICD10: E11.65] Diagnosis: Low back pain[ICD10: M54.5] [facility] CPT-4: 93185 04/15/2017 ([id number]) 67630 EST. PATIENT, LEVEL IV Diagnosis: Essential (primary) hypertension[ICD10: I10] Diagnosis: Type 2 diabetes mellitus with hyperglycemia[ICD10: E11.65] Diagnosis: Low back pain[ICD10: M54.5] [facility] CPT-4: 59934 02/16/2017 64137 EST. 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 05/17/2018 Appointment: Carlyn Higginbotham WPtel: [facility] [place] [phone] (15 min) Moderate 05/17/2018 Patient Education: Patient Medication Summary Completed 05/17/2018 Patient Education: Hypertension Completed 05/17/2018 Patient Education: Diabetes Completed 05/17/2018 Appointment: Carlyn Higginbotham WPtel: [facility] [phone] [place] (15 min) Moderate 04/07/2018 Visit Plan: Pneumonia - Pt has been diagnosed with pneumonia by physical exam. A chest xray has been ordered as have antibiotics. The pt is aware of the diagnosis and the need for acute treatment of this illness. Right knee pain -xray knee-rx for voltaren gel 03/18/2018 Appointment: Carlyn Higginbotham WPtel: [facility] [place] [phone] [place] (30 min) Complex 03/18/2018 Patient Education: Patient Medication Summary Completed 03/18/2018 Appointment: Carlyn Higginbotham WPtel: [address] [place], [place] [phone] [place] (30 min) Complex 03/17/2018 Appointment: Carlyn Higginbotham WPtel: [facility] [place] [phone] [place] (15 min) Moderate 03/10/2018 Appointment: Carlyn Higginbotham WPtel: [facility] [phone] [place] (15 min) Moderate 02/08/2018 Visit Plan: DM -decrease levemir to 4 units daily -monitor blood sugars MYT-tojqllkzex-xn changes Chronic pain -well controlled with fentanyl patch -no changes at this time 01/07/2018 Appointment: Carlyn Higginbotham WPtel: [facility] [place] [phone] [place] (15 min) Moderate 01/07/2018 [...] HS 2017 Appointment: Carlyn Higginbotham WPtel: [phone] [phone] (15 min) Moderate 2017 Patient [...] to 175mcg. 09/09/2017 Appointment: Vonda Everett WPtel: [phone] [facility] [place] (15 min) Moderate 09/09/2017 Patient [...] administration record. 06/08/2017 Appointment: Sunitha Patel [phone] (30 min) Complex 06/08/2017 Patient Education: Patient [...] Patel [phone] [facility] [place] (30 min) Complex 04/15/2017 Patient Education: Patient [...] today. 02/16/2017 [phone] (15 min) Moderate 02/16/2017 Patient Education: [...] or concerns. 11/09/2016 Appointment: Sunitha Patel [facility]el[phone] [facility] (30 min) Complex 11/09/2016 Patient Education: Patient Medication Summary Completed 11/09/2016 Care Plan: Referral Order SNOMED-CT : [id number] Pending 11/09/2016 Patient Education: Patient Medication Summary [...] feedings-weight loss of 10# in 1 month-Dr Evertet in to evaluate patient- add 1 scoop of protein powder to 2 feedings/day. Follow up weight in 1 month Neck gvod-wrbsvmwpbqq-Fkja PT focus neck/upper body Right earache-cerumen removed with water pick today in the office 07/18/2015 Appointment: (30 min) Complex 07/18/2015 Patient Education: Patient Medication Summary Completed 07/18/2015 Patient Education: Obesity Completed 07/18/2015 Patient Education: .Cervicalgia Neck Pain Completed 07/18/2015 [phone] [facility] [facility] Completed 06/25/2015 Visit Plan: Hypertension - [...] normal liver response to medications. [facility] - left sided weakness, neck stiffness, upper extremity weakness Diabetes Mellitus - controlled - per family report - check labs this week, get report from and [facility]. I spent over an hour with the patient in direct contact. 06/17/2015 Appointment: [phone] [facility] [place] New Patient 06/17/2015 Patient Education: Patient Medication Summary Completed 06/17/2015 Patient Education: Obesity Completed 06/17/2015 Patient Education: Hypertension Completed 06/17/2015 Care Plan: Referral Order SNOMED-CT : [id number] Ordered 06/17/2015 Referral: Jorge Luis Carroll Referral Initiated Ref[facility] [phone] [facility] [place] Referral Appointment Requested Instructions Comment . [...] to 4 units daily -monitor blood sugars RLL-negadycvqy-ly changes Chronic pain -well controlled with fentanyl [...] Add 1 scoop of whey protein from [facility] to 2 feedings per day [...] Follow up weight in 1 month Neck srjm-nqvzrergqsa-Cujc PT focus neck/upper body Right earache-cerumen removed with water pick today in the office . PEG tube - tube has not [...] liver response to medications. referral to [facility] therapy for post stroke - left sided weakness, neck stiffness, upper extremity weakness Diabetes Mellitus - controlled - per family report - check labs this week, get report from and [facility]. I spent over an hour [...]
--- OUTSIDE RECORDS SUMMARY | 2018-08-09 11:16 | XMS REPORT | CCD ---
Author Author Vonda Everett Organization Vonda Everett MD, [facility] Address [address] [place] [address] Phone Care Team Providers Care Magician Helper Name Role Phone PP Unavailable CCM Unavailable Summary Purpose Interface Exchange Insurance Providers Payer name Policy type / Coverage type Covered green party ID Effective Begin Date Effective End Date WPS Medicare Part B Medicare Part B [id number] Unknown Unknown [employer] Medicare Part B [id number] Unknown Unknown Family history Father Diagnosis Age At Onset Arthritis Unknown Hypertension Unknown Mother Diagnosis Age At Onset Diabetes mellitus Type 2 Unknown Depression Unknown Arthritis Unknown Stroke Unknown Hypertension Unknown Sister Diagnosis Age At Onset Colon cancer Unknown Social History Social History Element Codes Description Effective Dates Marital status Unknown Maurice 01/07/2018 Living arrangements Unknown Care Home [facility] 04/15/2017 Number of children Unknown 3 06/17/2015 Employment Unknown Retired 06/17/[address]: 7275660 Quit over 10 years ago 15+ 06/17/[address]: 143503940 Never drinks alcohol 06/17/2015 Allergies, Adverse Reactions, [...] hydrocodone 10 mg-acetaminophen 325 mg tablet RxNorm: 800391 2 Tablet(s) PO scheduled TID 06/07/2018 07/06/2018 Active Not to exceed 3gm/24hr acetaminophen fentanyl 100 mcg/hr transdermal patch RxNorm: 452499 1 Patch TD Q72H 06/03/2018 07/02/2018 Active Duragesic 75 mcg/hr transdermal patch RxNorm: 466004 1 Patch TD Q72H 06/03/2018 07/02/2018 Active hyoscyamine 0.125 mg disintegrating tablet RxNorm: 3989763 Tablet(s) Tablet(s) 1-2 Tablet(s) PO Q8 as needed 05/27/2018 No Stop Date Active lorazepam 0.5 mg tablet RxNorm: 068201 1 Tablet(s) PO BID and 1 tab q 6 hours prn 05/24/2018 No Stop Date Active hydrocodone 10 mg-acetaminophen 325 mg tablet RxNorm: 824629 2 Tablet(s) PO scheduled TID 05/24/2018 06/06/2018 Inactive Not to exceed 3gm/24hr acetaminophen citalopram 20 mg tablet RxNorm: 930919 1 Tablet(s) PO daily 05/17/2018 04/11/2019 Active hydrocodone 10 mg-acetaminophen 325 mg tablet RxNorm: 322955 2 Tablet(s) PO scheduled TID 04/19/2018 05/18/2018 Inactive Not to exceed 3gm/24hr acetaminophen lorazepam 0.5 mg tablet RxNorm: 105965 1 Tablet(s) PO BID and 1 tab q 6 hours prn 04/07/2018 05/23/2018 Inactive hyoscyamine 0.125 mg disintegrating tablet RxNorm: 9475980 Tablet(s) 1-2 Tablet(s) PO Q8 as needed 03/31/2018 05/26/2018 Inactive Duragesic 75 mcg/hr transdermal patch RxNorm: 445848 1 Patch TD Q72H 03/31/2018 04/29/2018 Inactive fentanyl 100 mcg/hr transdermal patch RxNorm: 588852 1 Patch TD Q72H 03/31/2018 04/29/2018 Inactive carvedilol 3.125 mg tablet RxNorm: 721668 Tablet(s) GIVE 1 TABLET VIA PEG TUBE 2 TIMES A DAY 03/30/2018 06/27/2018 Active Generic For:COREG 3.125MG 10/22/2017 9:23:30 AM Voltaren 1 % topical gel RxNorm: 253297 APPLY 4 GRAMS TO RIGHT KNEE FOUR TIMES DAILY 03/30/2018 04/22/2018 Inactive Generic For:VOLTAREN GEL 1% 03/30/2018 11:14:57 AM hydrocodone 10 mg-acetaminophen 325 mg tablet RxNorm: 293997 2 Tablet(s) PO scheduled TID 03/23/2018 04/18/2018 Inactive Not to exceed 3gm/24hr acetaminophen albuterol sulfate concentrate 5 mg/mL(0.5 %) solution for nebulization RxNorm: 827163 1 Vial Milliliter(s) INH TID PRN as needed congestion 03/18/2018 No Stop Date Active cefdinir 300 mg capsule RxNorm: 983651 1 Capsule(s) PO BID 03/18/2018 03/24/2018 Inactive Zithromax Z-Eliu 250 mg tablet RxNorm: 687369 Tablet(s) PO 03/18/2018 05/16/2018 Inactive Voltaren 1 % topical gel RxNorm: 170017 4 Gram(s) TOP QID 03/18/2018 03/29/2018 Inactive hydrochlorothiazide 25 mg tablet RxNorm: 307283 GIVE 1 TABLET VIA PEG TUBE ONCE DAILY 03/11/2018 09/06/2018 Active Generic For:HYDRODIURIL 25 MG TABLET 03/11/2018 9:15:32 AM fentanyl 100 mcg/hr transdermal patch RxNorm: 443530 1 Patch TD Q72H 03/02/2018 03/30/2018 Inactive Duragesic 75 mcg/hr transdermal patch RxNorm: 814145 1 Patch TD Q72H 03/02/2018 03/30/2018 Inactive hydrocodone 10 mg-acetaminophen 325 mg tablet RxNorm: 265976 2 Tablet(s) PO scheduled TID 02/18/2018 03/22/2018 Inactive Not to exceed 3gm/24hr acetaminophen hyoscyamine 0.125 mg disintegrating tablet RxNorm: 5784740 Tablet(s) 1-2 Tablet(s) PO Q8 as needed 02/08/2018 03/30/2018 Inactive fentanyl 100 mcg/hr transdermal patch RxNorm: 472501 1 Patch TD Q72H 02/04/2018 03/01/2018 Inactive hydrocodone 10 mg-acetaminophen 325 mg tablet RxNorm: 965850 2 Tablet(s) PO scheduled TID 02/04/2018 02/17/2018 Inactive Not to exceed 3gm/24hr acetaminophen Duragesic 75 mcg/hr transdermal patch RxNorm: 395593 1 Patch TD Q72H 02/04/2018 03/01/2018 Inactive Levemir FlexTouch U-100 Insulin 100 unit/mL (3 mL) subcutaneous pen RxNorm: 735799 4 Unit(s) SQ QHS 01/07/2018 No Stop Date Active Duragesic 75 mcg/hr transdermal patch RxNorm: 052612 1 Patch TD Q72H 01/07/2018 02/03/2018 Inactive fentanyl 100 mcg/hr transdermal patch RxNorm: 610176 1 Patch TD Q72H 01/07/2018 02/03/2018 Inactive hydrocodone 10 mg-acetaminophen 325 mg tablet RxNorm: 267856 2 Tablet(s) PO scheduled TID 01/05/2018 02/03/2018 Inactive Not to exceed 3gm/24hr acetaminophen hydrocodone 10 mg-acetaminophen 325 mg tablet RxNorm: 880831 2 Tablet(s) PO scheduled TID and 1 tab q 4 as needed 01/04/2018 01/04/2018 Inactive Not to exceed 3gm/24hr acetaminophen cyanocobalamin (vit B-12) 1,000 mcg tablet RxNorm: 573763 1 Tablet(s) PO daily 12/28/2017 11/22/2018 Active baclofen 10 mg tablet RxNorm: 026413 Tablet(s) TAKE 1 TABLET THREE TIMES DAILY VIA STOMACH TUBE 12/27/2017 05/25/2018 Inactive 10/07/2017 5:36:15 PM 10/07/2017 5:36:13 PM N O T I C E Last quantity doesn't match original quantity Duragesic 75 mcg/hr transdermal patch RxNorm: 737486 1 Patch TD Q72H 12/22/2017 01/06/2018 Inactive fentanyl 100 mcg/hr transdermal patch RxNorm: 184604 1 Patch TD Q72H 12/22/2017 01/06/2018 Inactive hydrocodone 10 mg-acetaminophen 325 mg tablet RxNorm: 880389 2 Tablet(s) PO scheduled TID and 1 tab q 4 as needed 12/20/2017 01/03/2018 Inactive Not to exceed 3gm/24hr acetaminophen hyoscyamine 0.125 mg disintegrating tablet RxNorm: 7018751 1-2 Tablet(s) PO Q8 as needed 12/14/2017 02/07/2018 Inactive Duragesic 75 mcg/hr transdermal patch RxNorm: 504166 1 Patch TD Q72H 12/06/2017 12/21/2017 Inactive fentanyl 100 mcg/hr transdermal patch RxNorm: 891867 1 Patch TD Q72H 12/06/2017 12/21/2017 Inactive hydrocodone 10 mg-acetaminophen 325 mg tablet RxNorm: 544634 2 Tablet(s) PO scheduled TID and 1 tab q 4 as needed 11/29/2017 12/19/2017 Inactive Not to exceed 3gm/24hr acetaminophen Duragesic 75 mcg/hr transdermal patch RxNorm: 327877 1 Patch TD Q72H 11/11/2017 12/05/2017 Inactive hydrocodone 10 mg-acetaminophen 325 mg tablet RxNorm: 613657 2 Tablet(s) PO scheduled TID and 1 tab q 4 as needed 11/09/2017 11/28/2017 Inactive Not to exceed 3gm/24hr acetaminophen Levemir FlexTouch U-100 Insulin 100 unit/mL (3 mL) subcutaneous pen RxNorm: 671796 8 Unit(s) SQ QHS 11/09/2017 01/06/2018 Inactive fentanyl 100 mcg/hr transdermal patch RxNorm: 684875 1 Patch TD Q72H 2017 12/05/2017 Inactive hyoscyamine 0.125 mg disintegrating tablet RxNorm: 5086068 1-2 Tablet(s) PO Q8 as needed 11/03/2017 12/13/2017 Inactive carvedilol 3.125 mg tablet RxNorm: 123901 GIVE 1 TABLET VIA PEG TUBE 2 TIMES A DAY 10/22/2017 01/19/2018 Inactive Generic For:COREG 3.125MG 10/22/2017 9:23:30 AM hydrocodone 10 mg-acetaminophen 325 mg tablet RxNorm: 785774 2 Tablet(s) PO scheduled TID and 1 tab q 4 as needed 10/22/2017 2017 Inactive Not to exceed 3gm/24hr acetaminophen fentanyl 100 mcg/hr transdermal patch RxNorm: 144669 1 Patch TD Q72H 10/20/2017 11/07/2017 Inactive Duragesic 75 mcg/hr transdermal patch RxNorm: 441570 1 Patch TD Q72H 10/20/2017 11/10/2017 Inactive lorazepam 0.5 mg tablet RxNorm: 911785 1 Tablet(s) PO BID and 1 tab q 6 hours prn 10/18/2017 No Stop Date Active baclofen 10 mg tablet RxNorm: 860076 TAKE 1 TABLET THREE TIMES DAILY VIA STOMACH TUBE 10/07/2017 12/26/2017 Inactive 10/07/2017 5:36:15 PM 10/07/2017 5:36:13 PM N O T I C E Last quantity doesn't match original quantity cranberry extract 500 mg tablet RxNorm: 8464628 1 Tablet(s) PO QAM 10/04/2017 01/31/2018 Inactive Cipro 500 mg tablet RxNorm: 199730 1 Tablet(s) PO BID 10/04/2017 10/03/2017 Inactive dc keflex hydrocodone 10 mg-acetaminophen 325 mg tablet RxNorm: 977118 2 Tablet(s) PO scheduled TID as needed 10/04/2017 10/21/2017 Inactive Not to exceed 3gm/24hr acetaminophen cranberry extract 500 mg tablet RxNorm: 8046755 1 Tablet(s) PO QAM 10/04/2017 10/03/2017 Inactive Cipro 500 mg tablet RxNorm: 086123 1 Tablet(s) PO BID 10/04/2017 10/10/2017 Inactive dc keflex Duragesic 75 mcg/hr transdermal patch RxNorm: 953618 1 Patch TD Q72H 09/20/2017 10/19/2017 Inactive fentanyl 100 mcg/hr transdermal patch RxNorm: 855883 1 Patch TD Q72H 09/20/2017 10/19/2017 Inactive hyoscyamine 0.125 mg disintegrating tablet RxNorm: 9095209 1 Tablet(s) PO TID and 1 Tablet Q4H prn increased secretions 09/15/2017 11/02/2017 Inactive hydrocodone 10 mg-acetaminophen 325 mg tablet RxNorm: 382256 2 Tablet(s) PO scheduled TID and 1-2 Tabs Q4H PRN pain 09/15/2017 10/03/2017 Inactive Not to exceed 3gm/24hr acetaminophen lorazepam 0.5 mg tablet RxNorm: 923954 1 Tablet(s) PO BID 09/15/2017 10/17/2017 Inactive Lexapro 10 mg tablet RxNorm: 362747 1 Tablet(s) PO daily 09/10/2017 09/14/2017 Inactive Levemir FlexTouch U-100 Insulin 100 unit/mL (3 mL) subcutaneous pen RxNorm: 786572 10 Unit(s) daily 09/09/2017 09/15/2017 Inactive lisinopril 10 mg tablet RxNorm: 643099 1 Tablet(s) PO daily 09/09/2017 05/16/2018 Inactive Duragesic 75 mcg/hr transdermal patch RxNorm: 808224 1 Patch TD Q72H 09/09/2017 09/19/2017 Inactive nystatin 100,000 unit/gram topical cream RxNorm: 933741 1 Gram(s) TOP TID until healed to gaulding 09/06/2017 01/03/2018 Inactive nystatin 100,000 unit/gram topical cream RxNorm: 844604 1 Gram(s) TOP TID until healed to gaulding 09/06/2017 09/05/2017 Inactive hydrocodone 10 mg-acetaminophen 325 mg tablet RxNorm: 070400 2 Tablet(s) PO scheduled TID as needed 08/31/2017 09/14/2017 Inactive Not to exceed 3gm/24hr acetaminophen fentanyl 100 mcg/hr transdermal patch RxNorm: 199671 1 Patch TD Q72H 08/24/2017 09/19/2017 Inactive fentanyl 50 mcg/hr transdermal patch RxNorm: 200228 1 Patch TD Q72H 08/24/2017 09/08/2017 Inactive fentanyl 25 mcg/hr transdermal patch RxNorm: 054981 1 Patch TD Q72H 08/24/2017 08/24/2017 Inactive hyoscyamine 0.125 mg disintegrating tablet RxNorm: 0762326 Tablet(s) 1-2 Tablet(s) PO Q8 as needed 08/23/2017 09/14/2017 Inactive hydrocodone 10 mg-acetaminophen 325 mg tablet RxNorm: 041893 1 Tablet(s) PO scheduled TID et Q6 hours as needed 08/18/2017 08/30/2017 Inactive Not to exceed 3gm/24hr acetaminophen hydrochlorothiazide 25 mg tablet RxNorm: 099728 GIVE 1 TABLET VIA PEG TUBE ONCE DAILY 08/17/2017 02/12/2018 Inactive Generic For:HYDRODIURIL 25 MG TABLET 08/17/2017 9:01:54 AM08/11/2017 10:12:00 AM lorazepam 0.5 mg tablet RxNorm: 715660 1/2 Tablet(s) PO BID 08/03/2017 09/14/2017 Inactive fentanyl 100 mcg/hr transdermal patch RxNorm: 474162 1 Patch TD Q72H 07/26/2017 08/23/2017 Inactive fentanyl 25 mcg/hr transdermal patch RxNorm: 578056 1 Patch TD Q72H 07/26/2017 08/23/2017 Inactive hydrocodone 10 mg-acetaminophen 325 mg tablet RxNorm: 666792 1 Tablet(s) PO scheduled TID et Q6 hours as needed 07/16/2017 08/14/2017 Inactive Not to exceed 3gm/24hr acetaminophen hyoscyamine 0.125 mg disintegrating tablet RxNorm: 4944150 Tablet(s) 1-2 Tablet(s) PO Q8 as needed 07/13/2017 08/01/2017 Inactive baclofen 10 mg tablet RxNorm: 468961 TAKE 1 TABLET THREE TIMES DAILY VIA STOMACH TUBE 07/12/2017 10/06/2017 Inactive 07/12/2017 9:04:08 AM N O T I C E Last quantity doesn't match original quantity lorazepam 0.5 mg tablet RxNorm: 413044 1/2 Tablet(s) PO BID 07/02/2017 08/02/2017 Inactive fentanyl 100 mcg/hr transdermal patch RxNorm: 392922 1 Patch TD Q72H 06/28/2017 07/25/2017 Inactive fentanyl 25 mcg/hr transdermal patch RxNorm: 137415 1 Patch TD Q72H 06/28/2017 07/25/2017 Inactive hyoscyamine 0.125 mg disintegrating tablet RxNorm: 7763526 Tablet(s) 1-2 Tablet(s) PO Q8 as needed 06/03/2017 06/22/2017 Inactive fentanyl 25 mcg/hr transdermal patch RxNorm: 404092 1 Patch TD Q72H 05/26/2017 06/24/2017 Inactive Levemir FlexTouch U-100 Insulin 100 unit/mL (3 mL) subcutaneous pen RxNorm: 992751 20 Unit(s) SQ BID 05/26/2017 09/08/2017 Inactive fentanyl 100 mcg/hr transdermal patch RxNorm: 176452 1 Patch TD Q72H 05/26/2017 06/24/2017 Inactive hydrocodone 10 mg-acetaminophen 325 mg tablet RxNorm: 417442 1 Tablet(s) PO scheduled BID et Q6 hours as needed 05/12/2017 05/11/2017 Inactive hydrocodone 10 mg-acetaminophen 325 mg tablet RxNorm: 940005 1 Tablet(s) PO scheduled TID et Q6 hours as needed 05/12/2017 06/10/2017 Inactive Not to exceed 3gm/24hr acetaminophen docusate sodium 100 mg tablet RxNorm: 3600568 1 Tablet(s) PO BID as needed if no bowel movement 05/10/2017 05/09/2017 Inactive lisinopril 20 mg tablet RxNorm: 963779 1 Tablet(s) PO daily 05/10/2017 09/08/2017 Inactive docusate sodium 100 mg tablet RxNorm: 1569533 1 Tablet(s) PO BID as needed if no bowel movement 05/10/2017 09/14/2017 Inactive fentanyl 25 mcg/hr transdermal patch RxNorm: 368140 1 Patch TD Q72H 05/03/2017 05/25/2017 Inactive lorazepam 0.5 mg tablet RxNorm: 949828 1/2 Tablet(s) PO BID 05/03/2017 07/01/2017 Inactive fentanyl 100 mcg/hr transdermal patch RxNorm: 161683 1 Patch TD Q72H 04/27/2017 05/25/2017 Inactive carvedilol 3.125 mg tablet RxNorm: 689730 Tablet(s) GIVE 1 TABLET VIA PEG TUBE DAILY 04/15/2017 10/21/2017 Inactive Levemir FlexTouch 100 unit/mL (3 mL) subcutaneous insulin pen RxNorm: 831532 10 Unit(s) SQ BID 04/15/2017 2017 Inactive hyoscyamine 0.125 mg disintegrating tablet RxNorm: 4503901 1-2 Tablet(s) PO Q8 as needed 04/14/2017 05/03/2017 Inactive hydrocodone 10 mg-acetaminophen 325 mg tablet RxNorm: 316923 1 Tablet(s) PO scheduled BID et Q6 hours as needed 04/13/2017 05/02/2017 Inactive baclofen 10 mg tablet RxNorm: 901254 TAKE 1 TABLET THREE TIMES DAILY VIA STOMACH TUBE 04/08/2017 05/22/2017 Inactive 04/08/2017 9:32:07 AM fentanyl 25 mcg/hr transdermal patch RxNorm: 475781 1 Patch TD Q72H 04/05/2017 05/02/2017 Inactive lidocaine 10 mg/mL (1 %) injection solution RxNorm: 2757583 1 Milliliter(s) Inj daily Mix with rocephin 03/31/2017 03/30/2017 Inactive Pt resides at [facility] lidocaine 10 mg/mL (1 %) injection solution RxNorm: 0083613 1 Milliliter(s) Inj daily Mix with rocephin 03/31/2017 04/06/2017 Inactive Pt resides at [facility] fentanyl 100 mcg/hr transdermal patch RxNorm: 215344 1 Patch TD Q72H 03/29/2017 04/26/2017 Inactive nystatin 100,000 unit/gram topical powder RxNorm: 131139 APPLY UNDER BREASTS TWICE DAILY FOR YEAST SKIN INFECTION AND APPLY TO UNDERARM AND ABDOMINAL FOLDS AND PERIAREA TWICE DAILY 03/29/2017 03/28/2017 Inactive 03/27/2017 9:12:50 AM nystatin 100,000 unit/gram topical powder RxNorm: 457443 APPLY UNDER BREASTS TWICE DAILY FOR YEAST SKIN INFECTION AND APPLY TO UNDERARM AND ABDOMINAL FOLDS AND PERIAREA TWICE DAILY 03/29/2017 09/14/2017 Inactive 03/29/2017 9:42:55 AM03/27/2017 9:12:50 AM hyoscyamine 0.125 mg disintegrating tablet RxNorm: 9626371 1-2 Tablet(s) PO Q8 as needed 03/08/2017 03/27/2017 Inactive fentanyl 25 mcg/hr transdermal patch RxNorm: 800118 1 Patch TD Q72H 03/02/2017 03/31/2017 Inactive hydrocodone 10 mg-acetaminophen 325 mg tablet RxNorm: 271386 1 Tablet(s) PO scheduled BID et Q6 hours as needed 02/17/2017 03/18/2017 Inactive fentanyl 100 mcg/hr transdermal patch RxNorm: 240047 1 Patch TD Q72H 02/17/2017 03/18/2017 Inactive Lexapro 10 mg tablet RxNorm: 925191 1 Tablet(s) PO daily 02/05/2017 04/14/2017 Inactive Lexapro 10 mg tablet RxNorm: 307301 1 Tablet(s) PO daily 02/05/2017 02/04/2017 Inactive fentanyl 25 mcg/hr transdermal patch RxNorm: 529544 1 Patch TD Q72H 02/04/2017 03/01/2017 Inactive cyanocobalamin (vit B-12) 1,000 mcg tablet RxNorm: 451392 1 Tablet(s) PO daily 01/18/2017 12/13/2017 Inactive hyoscyamine 0.125 mg disintegrating tablet RxNorm: 5051103 Tablet(s) 1-2 Tablet(s) PO Q8 as needed 01/18/2017 02/06/2017 Inactive baclofen 10 mg tablet RxNorm: 066690 TAKE 1 TABLET THREE TIMES DAILY VIA STOMACH TUBE 01/04/2017 02/17/2017 Inactive 01/04/2017 9:25:18 AM fentanyl 100 mcg/hr transdermal patch RxNorm: 791382 1 Patch TD Q72H 12/25/2016 01/23/2017 Inactive hydrochlorothiazide 25 mg tablet RxNorm: 718104 Tablet(s) GIVE 1 TABLET VIA PEG TUBE ONCE A DAY 12/14/2016 07/11/2017 Inactive fentanyl 100 mcg/hr transdermal patch RxNorm: 057616 1 Patch TD Q72H 11/25/2016 12/24/2016 Inactive hyoscyamine 0.125 mg disintegrating tablet RxNorm: 8101704 Tablet(s) 1-2 Tablet(s) PO Q8 as needed 11/25/2016 12/14/2016 Inactive nystatin 100,000 unit/gram topical powder RxNorm: 332780 APPLY UNDER BREASTS TWICE DAILY FOR YEAST SKIN INFECTION AND APPLY TO UNDERARM AND ABDOMINAL FOLDS AND PERIAREA TWICE DAILY 11/24/2016 01/22/2017 Inactive 11/24/2016 9:34:02 AM hydrocodone 10 mg-acetaminophen 325 mg tablet RxNorm: 272430 1 Tablet(s) PO scheduled BID et Q6 hours as needed 11/02/2016 12/01/2016 Inactive cyanocobalamin (vit B-12) 1,000 mcg tablet RxNorm: 339359 1 Tablet(s) PO daily 11/02/2016 01/17/2017 Inactive hyoscyamine 0.125 mg disintegrating tablet RxNorm: 3676676 1-2 Tablet(s) PO Q8 as needed 10/19/2016 11/24/2016 Inactive fentanyl 100 mcg/hr transdermal patch RxNorm: 288196 1 Patch TD Q72H 10/13/2016 11/11/2016 Inactive hydrocodone 10 mg-acetaminophen 325 mg tablet RxNorm: 690846 1 Tablet(s) PO scheduled BID et Q6 hours as needed 10/05/2016 11/01/2016 Inactive baclofen 10 mg tablet RxNorm: 812579 TAKE 1 TABLET THREE TIMES DAILY VIA STOMACH TUBE 10/01/2016 11/14/2016 Inactive 10/01/2016 9:24:37 AM carvedilol 3.125 mg tablet RxNorm: 818637 GIVE 1 TABLET VIA PEG TUBE 2 TIMES A DAY 09/30/2016 12/28/2016 Inactive Generic For:COREG 3.125MG 09/30/2016 1:12:28 PM09/25/2016 9:06:11 AM Probiotic Blend 2 million cell-50 mg capsule RxNorm: 1 Capsule(s) PO BID 09/17/2016 09/23/2016 Inactive Keflex 500 mg capsule RxNorm: 477248 1 Capsule(s) PO TID 09/17/2016 09/23/2016 Inactive hyoscyamine 0.125 mg/5 mL oral elixir RxNorm: 3718866 5 Milliliter(s) PO TID 09/08/2016 09/17/2016 Inactive hyoscyamine 0.125 mg/5 mL oral elixir RxNorm: 6678380 5 Milliliter(s) PO TID 09/08/2016 09/07/2016 Inactive hyoscyamine 0.125 mg disintegrating tablet RxNorm: 4887443 1-2 Tablet(s) PO Q8 as needed 09/07/2016 10/18/2016 Inactive fentanyl 100 mcg/hr transdermal patch RxNorm: 312813 1 Patch TD Q72H 09/01/2016 09/30/2016 Inactive ranitidine 150 mg tablet RxNorm: 167548 1 Tablet(s) PO BID 08/25/2016 No Stop Date Active hydrocodone 10 mg-acetaminophen 325 mg tablet RxNorm: 010475 1 Tablet(s) PO scheduled BID et Q6 hours as needed 08/24/2016 09/22/2016 Inactive cyanocobalamin (vit B-12) 1,000 mcg tablet RxNorm: 838384 1 Tablet(s) PO daily 08/12/2016 11/01/2016 Inactive cyanocobalamin (vit B-12) 1,000 mcg tablet RxNorm: 507185 1 Tablet(s) PO daily 08/12/2016 08/11/2016 Inactive hydrocodone 10 mg-acetaminophen 325 mg tablet RxNorm: 208035 1-2 Tablet(s) PO Q6 as needed 08/03/2016 08/17/2016 Inactive fentanyl 100 mcg/hr transdermal patch RxNorm: 009610 1 Patch TD Q72H 08/03/2016 08/31/2016 Inactive nystatin 100,000 unit/gram topical powder RxNorm: 008103 APPLY UNDER BREASTS TWICE DAILY FOR YEAST SKIN INFECTION AND APPLY TO UNDERARM AND ABDOMINAL FOLDS AND PERIAREA TWICE DAILY 07/17/2016 09/14/2016 Inactive 07/17/2016 3:56:54 PM fentanyl 100 mcg/hr transdermal patch RxNorm: 344770 1 Patch TD Q72H 07/15/2016 08/02/2016 Inactive lisinopril 20 mg tablet RxNorm: 974307 1 Tablet(s) PO daily 07/02/2016 03/28/2017 Inactive hydrocodone 10 mg-acetaminophen 325 mg tablet RxNorm: 790256 1-2 Tablet(s) PO Q6 as needed 07/01/2016 07/15/2016 Inactive Xarelto 20 mg tablet RxNorm: 3750518 Tablet(s) TAKE 1 TABLET VIA PEG TUBE AT BEDTIME 06/19/2016 04/14/2017 Inactive fentanyl 100 mcg/hr transdermal patch RxNorm: 831428 1 Patch TD Q72H 06/17/2016 07/14/2016 Inactive nystatin 100,000 unit/gram topical powder RxNorm: 839642 APPLY TO UNDER BREASTS TWICE DAILY FOR YEAST SKIN INFECTION AND APPLY TO UNDERARM AND ABDOMINAL FOLDS AND PERIAREA TWICE DAILY 06/15/2016 07/16/2016 Inactive Generic For:MYCOSTATIN 100,000 UNITS/GM PW 06/15/2016 12:28:26 PM fentanyl 100 mcg/hr transdermal patch RxNorm: 078837 1 Patch TD Q72H 06/05/2016 06/16/2016 Inactive hydrocodone 10 mg-acetaminophen 325 mg tablet RxNorm: 669170 1-2 Tablet(s) PO Q6 as needed 06/02/2016 06/16/2016 Inactive Probiotic Blend 2 million cell-50 mg capsule RxNorm: 1 Capsule(s) PO BID 05/13/2016 05/19/2016 Inactive nitrofurantoin 100 mg capsule RxNorm: 797386 1 Capsule(s) PO BID 05/13/2016 05/19/2016 Inactive nitrofurantoin 100 mg capsule RxNorm: 934546 1 Capsule(s) PO BID 05/13/2016 05/12/2016 Inactive fentanyl 75 mcg/hr transdermal patch RxNorm: 829720 1 Patch TD Q72H 05/13/2016 06/04/2016 Inactive Keflex 500 mg capsule RxNorm: 456025 1 Capsule(s) PO TID 05/07/2016 05/13/2016 Inactive Patient at [facility] Keflex 500 mg capsule RxNorm: 078645 1 Capsule(s) PO TID 05/07/2016 05/06/2016 Inactive hydrocodone 10 mg-acetaminophen 325 mg tablet RxNorm: 171883 1-2 Tablet(s) PO Q6 as needed 05/04/2016 06/01/2016 Inactive hydrochlorothiazide 25 mg tablet RxNorm: 997796 Tablet(s) GIVE 1 TABLET VIA PEG TUBE ONCE A DAY 04/29/2016 11/24/2016 Inactive hydrochlorothiazide 25 mg tablet RxNorm: 984266 GIVE 1 TABLET VIA PEG TUBE ONCE A DAY 04/22/2016 04/28/2016 Inactive Generic For:HYDRODIURIL 25 MG TABLET refill request fentanyl 75 mcg/hr transdermal patch RxNorm: 713181 1 Patch TD Q72H 04/17/2016 05/12/2016 Inactive Xarelto 20 mg tablet RxNorm: 3781203 TAKE 1 TABLET VIA PEG TUBE AT BEDTIME 04/16/2016 06/14/2016 Inactive 04/16/2016 9:08:52 AM citalopram 40 mg tablet RxNorm: 163276 1 Tablet(s) PO daily 04/02/2016 02/25/2017 Inactive citalopram 40 mg tablet RxNorm: 568895 1 Tablet(s) PO daily 03/27/2016 04/01/2016 Inactive hydrocodone 10 mg-acetaminophen 325 mg tablet RxNorm: 377288 1-2 Tablet(s) PO Q6 as needed 03/27/2016 04/25/2016 Inactive fentanyl 75 mcg/hr transdermal patch RxNorm: 715962 1 Patch TD Q72H 03/18/2016 04/16/2016 Inactive hydrocodone 10 mg-acetaminophen 325 mg tablet RxNorm: 908036 1-2 Tablet(s) PO Q6 as needed 03/11/2016 03/26/2016 Inactive citalopram 40 mg tablet RxNorm: 798748 1 Tablet(s) PO daily 03/04/2016 03/26/2016 Inactive Levemir FlexTouch U-100 Insulin 100 unit/mL (3 mL) subcutaneous pen RxNorm: 047525 20 Unit(s) SQ BID 03/02/2016 09/27/2016 Inactive lisinopril 20 mg tablet RxNorm: 776097 1 Tablet(s) PO daily 02/25/2016 07/01/2016 Inactive Ativan 0.5 mg tablet RxNorm: 603091 1 Tablet(s) PO Q4H as needed 02/18/2016 04/14/2017 Inactive Xarelto 20 mg tablet RxNorm: 9190642 TAKE 1 TABLET VIA PEG TUBE AT BEDTIME 02/12/2016 04/11/2016 Inactive 02/12/2016 9:08:22 AM hydrocodone 10 mg-acetaminophen 325 mg tablet RxNorm: 284604 1-2 Tablet(s) PO Q6 as needed 02/12/2016 03/10/2016 Inactive fentanyl 75 mcg/hr transdermal patch RxNorm: 976232 1 Patch TD Q72H 02/11/2016 03/11/2016 Inactive citalopram 20 mg tablet RxNorm: 530867 1 Tablet(s) PO daily 01/28/2016 03/03/2016 Inactive fentanyl 75 mcg/hr transdermal patch RxNorm: 161237 1 TD Q72H 01/17/2016 02/10/2016 Inactive hydrocodone 10 mg-acetaminophen 325 mg tablet RxNorm: 792879 1-2 Tablet(s) PO Q6 as needed 01/07/2016 02/05/2016 Inactive fentanyl 50 mcg/hr transdermal patch RxNorm: 424343 1 TD Q72H 01/01/2016 01/16/2016 Inactive fentanyl 50 mcg/hr transdermal patch RxNorm: 973275 1 TD q 3 days 12/26/2015 12/31/2015 Inactive Xarelto 20 mg tablet RxNorm: 9131650 TAKE 1 TABLET VIA PEG TUBE AT BEDTIME 12/17/2015 02/11/2016 Inactive 12/16/2015 3:27:57 PM12/14/2015 9:45:17 AM hydrocodone 10 mg-acetaminophen 325 mg tablet RxNorm: 505938 1-2 Tablet(s) PO Q6 as needed 12/06/2015 01/04/2016 Inactive fentanyl 50 mcg/hr transdermal patch RxNorm: 716422 1 TD q 3 days 12/06/2015 12/25/2015 Inactive fentanyl 25 mcg/hr transdermal patch RxNorm: 471662 1 TD q 3 days 11/18/2015 12/05/2015 Inactive Zithromax Z-Eliu 250 mg tablet RxNorm: 443208 1 Tablet(s) PO UD 10/09/2015 02/26/2016 Inactive z pack as directed- please write out instructions- pt at [facility] nystatin 100,000 unit/gram topical powder RxNorm: 659047 APPLY TO UNDER BREASTS TWICE DAILY FOR YEAST SKIN INFECTION AND APPLY TO UNDERARM AND ABDOMINAL FOLDS AND PERIAREA TWICE DAILY 10/07/2015 12/05/2015 Inactive Generic For:MYCOSTATIN 100,000 UNITS/GM PW 10/05/2015 12:07:35 PM fentanyl 25 mcg/hr transdermal patch RxNorm: 707147 1 TD q 3 days 10/03/2015 11/01/2015 Inactive fentanyl 25 mcg/hr transdermal patch RxNorm: 264374 1 TD q 3 days 09/27/2015 10/02/2015 Inactive fentanyl 25 mcg/hr transdermal patch RxNorm: 033301 1 TD q 3 days 09/17/2015 09/26/2015 Inactive fentanyl 25 mcg/hr transdermal patch RxNorm: 159340 1 TD q 3 days 08/30/2015 09/16/2015 Inactive hydrocodone 5 mg-acetaminophen 325 mg tablet RxNorm: 059720 1 Tablet(s) PO Q6 as needed 08/30/2015 09/28/2015 Inactive Diflucan 100 mg tablet RxNorm: 840179 1 Tablet(s) Miscellaneous per peg daily 07/29/2015 08/04/2015 Inactive fentanyl 25 mcg/hr transdermal patch RxNorm: 573876 1 TD q 3 days 07/18/2015 08/29/2015 Inactive hydrocodone 5 mg-acetaminophen 325 mg tablet RxNorm: 620496 1 Tablet(s) PO Q6 as needed 07/18/2015 08/29/2015 Inactive Diflucan 100 mg tablet RxNorm: 701263 1 Tablet(s) Miscellaneous per peg daily 06/17/2015 06/23/2015 Inactive Senna-S 8.6 mg-50 mg tablet RxNorm: 313213 1 Tablet(s) PO daily as needed constipation No Start Date Active Dulcolax (bisacodyl) 10 mg rectal suppository RxNorm: 279400 1 Suppository RTL daily as needed constipation No Start Date Active polyethylene glycol 3350 17 gram/dose oral powder RxNorm: 170931 17 Gram(s) PO daily as needed constipation No Start Date Active baclofen 10 mg tablet RxNorm: 643100 1 Tablet(s) PO TID No Start Date 09/30/2016 Inactive Ativan 0.5 mg tablet RxNorm: 353962 1 Tablet(s) PO Q4H as needed No Start Date 02/17/2016 Inactive ranitidine 150 mg tablet RxNorm: 087047 1 Tablet(s) PO daily No Start Date 08/24/2016 Inactive carvedilol 3.125 mg tablet RxNorm: 644477 1 Tablet(s) PO daily No Start Date 09/29/2016 Inactive citalopram 40 mg tablet RxNorm: 300323 1 Tablet(s) PO daily No Start Date 01/27/2016 Inactive Probiotic Blend oral RxNorm: oral No Start Date 05/12/2016 Inactive hydrochlorothiazide 25 mg tablet RxNorm: 899223 1 Tablet(s) PO daily No Start Date 04/21/2016 Inactive albuterol sulfate concentrate 5 mg/mL(0.5 %) solution for nebulization RxNorm: 931331 1 Vial INH daily as needed congestion No Start Date 03/17/2018 Inactive Levemir FlexTouch 100 unit/mL (3 mL) subcutaneous insulin pen RxNorm: 320117 10 Unit(s) SQ BID No Start Date 03/01/2016 Inactive Zithromax Z-Eliu 250 mg tablet RxNorm: 769434 1 Tablet(s) PO UD No Start Date 10/08/2015 Inactive z pack as directed- please write out instructions- pt at [facility] nystatin 100,000 unit/gram topical powder RxNorm: 583141 Gram(s) TOP BID as needed No Start Date 10/06/2015 Inactive pravastatin 40 mg tablet RxNorm: 524636 Tablet(s) PO daily No Start Date 04/14/2017 Inactive lorazepam 0.5 mg tablet RxNorm: 726158 1/2 Tablet(s) PO BID No Start Date 05/02/2017 Inactive Xarelto 20 mg tablet RxNorm: 6840373 1 Tablet(s) PO daily No Start Date 12/16/2015 Inactive fentanyl 25 mcg/hr transdermal patch RxNorm: 229084 1 TD q 3 days No Start Date 07/17/2015 Inactive lisinopril 20 mg tablet RxNorm: 555004 1 Tablet(s) PO daily No Start Date 02/24/2016 Inactive hydrocodone 5 mg-acetaminophen 325 mg tablet RxNorm: 482528 1 Tablet(s) PO Q6 as needed No Start Date 07/17/2015 Inactive citalopram 40 mg tablet RxNorm: 195015 1 Tablet(s) PO daily No Start Date 03/03/2016 Inactive hyoscyamine 0.125 mg disintegrating tablet RxNorm: 6850727 1-2 Tablet(s) PO Q8 as needed No [...] Code Item Item Code Result Date %Hba1C Vqd217 % HbA1c 38894- 6 5.5 % 05/18/2018 %Hba1C Ztu164 Gluc Ave 111 mg/dL 05/18/2018 Cbc With [...] 32.3 pg 05/18/2018 Cbc With Differential Ord2 Cross% 4.9 % 05/18/2018 Cbc With Differential Ord2 [...] 1.81 K/ul 05/18/2018 Cbc With Differential Ord2 Cross ABS# 0.4 K/ul 05/18/2018 Cbc With Differential Ord2 Eos ABS# 0.6 K/ul 05/18/2018 Cbc With Differential Ord2 Baso ABS# 0.0 K/ul 05/18/2018 Tsh Ord6 TSH (3rd IS) 0.85 uIU/mL 05/18/2018 Comp Metabolic Xya194 NA 137 mEq/L 05/18/2018 Comp Metabolic Zou219 K 4.2 mEq/L 05/18/2018 Comp Metabolic Osc433 CL 97 mEq/L 05/18/2018 Comp Metabolic Mzc174 CO2 34.0 mEq/L 05/18/2018 Comp Metabolic Xoi738 ANION GAP 10 05/18/2018 Comp Metabolic Qtj897 GLUCOSE 177 mg/dL 05/18/2018 Comp Metabolic Wbi494 Creat 0.5 mg/dL 05/18/2018 Comp Metabolic Zio728 eGFR 122 ml/min/1.73m2 05/18/2018 Comp Metabolic Xrq724 BUN 23 mg/dL 05/18/2018 Comp Metabolic Tdi868 B/C Ratio 43.4 Ratio 05/18/2018 Comp Metabolic Vuv864 CALCIUM 9.2 mg/dL 05/18/2018 Comp Metabolic Agi749 ALK PHOS 86 U/L 05/18/2018 Comp Metabolic Qek852 AST(SGOT) 14 U/L 05/18/2018 Comp Metabolic Btj830 ALT(SGPT) 9 U/L 05/18/2018 Comp Metabolic Luf526 BILI T 0.3 mg/dL 05/18/2018 Comp Metabolic Qap001 ALBUMIN 3.7 g/dL 05/18/2018 Comp Metabolic Nwk545 TPRO 6.2 g/dL 05/18/2018 Comp Metabolic Cyp398 GLOB 2.6 g/dL 05/18/2018 Comp Metabolic Vme361 A/G Ratio 1.4 Ratio 05/18/2018 Comp Metabolic Vpu625 Osmo 282 mOsmo 05/18/2018 A1C Frequency Yha800 A1CF 08041-1 Last A1C performed at [facility] lab on: 02-14-2018 05/10/2018 Cbc With Differential [...] 30.7 pg 02/14/2018 Cbc With Differential Ord2 Cross% 7.4 % 02/14/2018 Cbc With Differential Ord2 [...] 2.14 K/ul 02/14/2018 Cbc With Differential Ord2 Cross ABS# 0.5 K/ul 02/14/2018 Cbc With Differential Ord2 Eos ABS# 0.3 K/ul 02/14/2018 Cbc With Differential Ord2 Baso ABS# 0.0 K/ul 02/14/2018 Comp Metabolic Mqy958 NA 142 mEq/L 02/14/2018 Comp Metabolic Eyv565 K 4.5 mEq/L 02/14/2018 Comp Metabolic Qgv821 CL 97 mEq/L 02/14/2018 Comp Metabolic Hhv173 CO2 41.0 mEq/L 02/14/2018 Comp Metabolic Mry584 ANION GAP 9 02/14/2018 Comp Metabolic Iwl206 GLUCOSE 111 mg/dL 02/14/2018 Comp Metabolic Eiu835 Creat 0.6 mg/dL 02/14/2018 Comp Metabolic Smf159 eGFR 108 ml/min/1.73m2 02/14/2018 Comp Metabolic Lox788 BUN 32 mg/dL 02/14/2018 Comp Metabolic Reb058 B/C Ratio 54.2 Ratio 02/14/2018 Comp Metabolic Qnq168 CALCIUM 8.9 mg/dL 02/14/2018 Comp Metabolic Ero446 ALK PHOS 81 U/L 02/14/2018 Comp Metabolic Rjz119 AST(SGOT) 14 U/L 02/14/2018 Comp Metabolic Wzw778 ALT(SGPT) 11 U/L 02/14/2018 Comp Metabolic Kfc442 BILI T 0.3 mg/dL 02/14/2018 Comp Metabolic Dks898 ALBUMIN 3.4 g/dL 02/14/2018 Comp Metabolic Kek726 TPRO 6.3 g/dL 02/14/2018 Comp Metabolic Qlw708 GLOB 2.9 g/dL 02/14/2018 Comp Metabolic Ljy227 A/G Ratio 1.2 Ratio 02/14/2018 Comp Metabolic Nvv780 Osmo 291 mOsmo 02/14/2018 %Hba1C Rkc229 % HbA1c 93683- 6 5.5 % 02/14/2018 %Hba1C Rue219 Gluc Ave 111 mg/dL 02/14/2018 Prealbumin 766226 PREALBUMIN 27 mg/dL 11/24/2017 %Hba1C Mky674 % HbA1c 28387- 6 5.5 % 11/04/2017 %Hba1C Lgo480 Gluc Ave 111 mg/dL 11/04/2017 Culture Urine [id number] URINE CULTURE SEE NOTES 10/04/2017 Culture Urine [id number] Continued Results 10/04/2017 Urine Culture Ucult Complete [...] Ord28 U-Com Culture to follow 10/01/2017 B12 Tpt569 B12 >1500.00 pg/ml 02/19/2017 Cbc With Differential [...] 31.5 pg 02/02/2017 Cbc With Differential Ord2 Cross% 8.3 % 02/02/2017 Cbc With Differential Ord2 [...] 2.28 K/ul 02/02/2017 Cbc With Differential Ord2 Cross ABS# 0.6 K/ul 02/02/2017 Cbc With Differential Ord2 Eos ABS# 0.4 K/ul 02/02/2017 Cbc With Differential Ord2 Baso ABS# 0.0 K/ul 02/02/2017 %Hba1C Ofc904 % HbA1c 37047- 6 5.2 % 02/02/2017 %Hba1C Fnz477 Gluc Ave 103 mg/dL 02/02/2017 Comp Metabolic Mki868 NA 138 mEq/L 02/02/2017 Comp Metabolic Nde173 K 4.5 mEq/L 02/02/2017 Comp Metabolic Lwq164 CL 98 mEq/L 02/02/2017 Comp Metabolic Xtb760 CO2 37.0 mEq/L 02/02/2017 Comp Metabolic Skj248 ANION GAP 8 02/02/2017 Comp Metabolic Njd680 GLUCOSE 94 mg/dL 02/02/2017 Comp Metabolic Aqa245 Creat 0.7 mg/dL 02/02/2017 Comp Metabolic Ksf270 eGFR 88 ml/min/1.73m2 02/02/2017 Comp Metabolic Kkh629 BUN 36 mg/dL 02/02/2017 Comp Metabolic Exm071 B/C Ratio 50.7 Ratio 02/02/2017 Comp Metabolic Fmk464 CALCIUM 9.0 mg/dL 02/02/2017 Comp Metabolic Xcj485 ALK PHOS 78 U/L 02/02/2017 Comp Metabolic Utx247 AST(SGOT) 22 U/L 02/02/2017 Comp Metabolic Mux437 ALT(SGPT) 28 U/L 02/02/2017 Comp Metabolic Mwd739 BILI T 0.3 mg/dL 02/02/2017 Comp Metabolic Nxl581 ALBUMIN 3.3 g/dL 02/02/2017 Comp Metabolic Jbb022 TPRO 5.9 g/dL 02/02/2017 Comp Metabolic Chj222 GLOB 2.6 g/dL 02/02/2017 Comp Metabolic Okn601 A/G Ratio 1.3 Ratio 02/02/2017 Comp Metabolic Rmx590 Osmo 284 mOsmo 02/02/2017 %Hba1C Mgv075 % HbA1c 08902- 6 5.0 % 10/29/2016 %Hba1C Zkc033 Gluc Ave 97 mg/dL 10/29/2016 Culture Urine [id number] URINE CULTURE SEE NOTES 09/21/2016 Culture Urine [id number] Continued Results 09/21/2016 Urine Culture Ucult Complete [...] 32.4 pg 07/30/2016 Cbc With Differential Ord2 Cross% 7.2 % 07/30/2016 Cbc With Differential Ord2 [...] 2.69 K/ul 07/30/2016 Cbc With Differential Ord2 Cross ABS# 0.5 K/ul 07/30/2016 Cbc With Differential Ord2 Eos ABS# 0.5 K/ul 07/30/2016 Cbc With Differential Ord2 Baso ABS# 0.0 K/ul 07/30/2016 Comp Metabolic Sru644 NA 141 mEq/L 07/30/2016 Comp Metabolic Jmf394 K 4.3 mEq/L 07/30/2016 Comp Metabolic Dgp140 CL 100 mEq/L 07/30/2016 Comp Metabolic Nua335 CO2 33.0 mEq/L 07/30/2016 Comp Metabolic Xlu049 ANION GAP 12 07/30/2016 Comp Metabolic Pfb932 GLUCOSE 64 mg/dL 07/30/2016 Comp Metabolic Mnh586 Creat 0.5 mg/dL 07/30/2016 Comp Metabolic Wkq680 eGFR 126 ml/min/1.73m2 07/30/2016 Comp Metabolic Pto652 BUN 25 mg/dL 07/30/2016 Comp Metabolic Soh586 B/C Ratio 48.1 Ratio 07/30/2016 Comp Metabolic Efe279 CALCIUM 8.9 mg/dL 07/30/2016 Comp Metabolic Yrw212 ALK PHOS 90 U/L 07/30/2016 Comp Metabolic Wpx210 AST(SGOT) 22 U/L 07/30/2016 Comp Metabolic Xcv754 ALT(SGPT) 36 U/L 07/30/2016 Comp Metabolic Usr963 BILI T 0.3 mg/dL 07/30/2016 Comp Metabolic Aah761 ALBUMIN 3.4 g/dL 07/30/2016 Comp Metabolic Ymi730 TPRO 6.0 g/dL 07/30/2016 Comp Metabolic Jpj151 GLOB 2.7 g/dL 07/30/2016 Comp Metabolic Iqa390 A/G Ratio 1.3 Ratio 07/30/2016 Comp Metabolic Lis921 Osmo 284 mOsmo 07/30/2016 A1C Frequency Bee297 A1CF 28738-3 Last A1C performed at [facility] lab on: 05-12-2016 07/30/2016 %Hba1C Gak702 % HbA1c 86998- 6 5.2 % 05/12/2016 %Hba1C Sdd336 Gluc Ave 103 mg/dL 05/12/2016 Culture Urine [id number] URINE CULTURE SEE NOTES 05/11/2016 Urine Culture [...] U-Com Culture to follow 05/06/2016 Culture Urine [id number] URINE CULTURE SEE NOTES 03/17/2016 Culture Urine [id number] Continued Results 03/17/2016 Urine Culture Ucult Complete [...] 32.0 pg 02/11/2016 Cbc With Differential Ord2 Cross% 9.1 % 02/11/2016 Cbc With Differential Ord2 [...] 2.59 K/ul 02/11/2016 Cbc With Differential Ord2 Cross ABS# 0.6 K/ul 02/11/2016 Cbc With Differential Ord2 Eos ABS# 0.3 K/ul 02/11/2016 Cbc With Differential Ord2 Baso ABS# 0.0 K/ul 02/11/2016 Comp Metabolic Icb282 NA 137 mEq/L 02/11/2016 Comp Metabolic Hkg798 K 4.4 mEq/L 02/11/2016 Comp Metabolic Uyc515 CL 100 mEq/L 02/11/2016 Comp Metabolic Cde868 CO2 25.0 mEq/L 02/11/2016 Comp Metabolic Wrb065 ANION GAP 16 02/11/2016 Comp Metabolic Xuv118 GLUCOSE 99 mg/dL 02/11/2016 Comp Metabolic Nsf590 Creat 0.6 mg/dL 02/11/2016 Comp Metabolic Ypf675 eGFR 99 ml/min/1.73m2 02/11/2016 Comp Metabolic Fps840 BUN 27 mg/dL 02/11/2016 Comp Metabolic Nqo410 B/C Ratio 42.2 Ratio 02/11/2016 Comp Metabolic Dgv289 CALCIUM 9.2 mg/dL 02/11/2016 Comp Metabolic Dwg217 ALK PHOS 74 U/L 02/11/2016 Comp Metabolic Twu106 AST(SGOT) 24 U/L 02/11/2016 Comp Metabolic Vym669 ALT(SGPT) 26 U/L 02/11/2016 Comp Metabolic Oan696 BILI T 0.5 mg/dL 02/11/2016 Comp Metabolic Ytp013 ALBUMIN 3.5 g/dL 02/11/2016 Comp Metabolic Chk079 TPRO 6.2 g/dL 02/11/2016 Comp Metabolic Cel223 GLOB 2.7 g/dL 02/11/2016 Comp Metabolic Kxi310 A/G Ratio 1.3 Ratio 02/11/2016 Comp Metabolic Lkb767 Osmo 279 mOsmo 02/11/2016 Review of Systems [...] 1: 128/86 Code: 8480-6 BMI: 31.4 Code: 23799-3 Heart Rate 1: 72 bpm Height: 5'1" Weight: 166 lbs 06/17/2015 Blood Pressure 1: 110/78 Code: 8480-6 BMI: 33.3 Code: 77969-0 Heart Rate 1: 74 bpm Height: 5'1" [...] Present Encounters Encounter Performer Location Codes Date ([id number]) [id number] EST. PATIENT, LEVEL IV Diagnosis: Essential (primary) hypertension[ICD10: I10] Diagnosis: Chronic pain syndrome[ICD10: G89.4] Diagnosis: Type 2 diabetes mellitus without complications[ICD10: E11.9] Carlyn Everett MD, [facility] CPT-4: 14035 05/17/2018 ([id number]) 91919 EST. PATIENT, LEVEL IV Diagnosis: Cough[ICD10: R05] Diagnosis: Pneumonia, unspecified organism[ICD10: J18.9] Diagnosis: Pain in right knee[ICD10: M25.561] Carlyn Everett MD, [facility] CPT- 4: 16718 03/18/2018 ([id number]) 30025 EST. PATIENT, LEVEL IV Diagnosis: Type 2 diabetes mellitus without complications[ICD10: E11.9] Diagnosis: Essential (primary) hypertension[ICD10: I10] Diagnosis: Chronic pain syndrome[ICD10: G89.4] Carlyn Everett MD, [facility] CPT-4: 51774 01/07/2018 ([id number]) 67396 EST. PATIENT, LEVEL IV Diagnosis: Essential (primary) hypertension[ICD10: I10] Diagnosis: Type 2 diabetes mellitus without complications[ICD10: E11.9] Carlyn Everett MD, [facility] CPT-4: 84798 2017 ([id number]) 88802 EST. PATIENT, LEVEL IV Diagnosis: Type 2 diabetes mellitus with hyperglycemia[ICD10: E11.65] Diagnosis: Essential (primary) hypertension[ICD10: I10] Diagnosis: Pain in left shoulder[ICD10: M25.512] Diagnosis: Pain in right shoulder[ICD10: M25.511] Diagnosis: Pain in left knee[ICD10: M25.562] Diagnosis: Pain in right knee[ICD10: M25.561] Vonda Everett MD, [facility] CPT- 4: 06711 09/09/2017 [id number] EST. PATIENT, LEVEL IV Diagnosis: Essential (primary) hypertension[ICD10: I10] Diagnosis: Type 2 diabetes mellitus with hyperglycemia[ICD10: E11.65] Diagnosis: Low back pain[ICD10: M54.5] Sunitha Everett MD, [facility] CPT-4: 11497 06/08/2017 ([id number]) 10774 EST. PATIENT, LEVEL IV Diagnosis: Essential (primary) hypertension[ICD10: I10] Diagnosis: Type 2 diabetes mellitus with hyperglycemia[ICD10: E11.65] Diagnosis: Low back pain[ICD10: M54.5] Sunitha Everett MD, [facility] CPT-4: 63182 04/15/[id number]) [id number] EST. PATIENT, LEVEL IV Diagnosis: Essential (primary) hypertension[ICD10: I10] Diagnosis: Type 2 diabetes mellitus with hyperglycemia[ICD10: E11.65] Diagnosis: Low back pain[ICD10: M54.5] Vonda Everett MD, [facility] CPT-4: 13851 02/16/2017 [id number] EST. 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 05/17/2018 Appointment: Carlyn Higginbotham WPtel: [address] [place], [place] [phone] [place] (15 min) Moderate 05/17/2018 Patient Education: Patient Medication Summary Completed 05/17/2018 Patient Education: Hypertension Completed 05/17/2018 Patient Education: Diabetes Completed 05/17/2018 Appointment: Carlyn Higginbotham [facility]Ptel[phone] [place] (15 min) Moderate 04/07/2018 Visit Plan: Pneumonia - Pt has been diagnosed with pneumonia by physical exam. A chest xray has been ordered as have antibiotics. The pt is aware of the diagnosis and the need for acute treatment of this illness. Right knee pain -xray knee-rx for voltaren gel 03/18/2018 Appointment: Carlyn Higginbotham WPtel: [address] [place], [place] [phone] [place] (30 min) Complex 03/18/2018 Patient Education: Patient Medication Summary Completed 03/18/2018 Appointment: Carlyn Higginbotham WPtel: [address] [place], [place] [phone] [place] (30 min) Complex 03/17/2018 Appointment: Carlyn Higginbotham WPtel: [address] [place], [place] [phone] [place] (15 min) Moderate 03/10/2018 Appointment: Carlyn Higginbotham WPtel: [address] [place], [place] [phone] [place] (15 min) Moderate 02/08/2018 Visit Plan: DM -decrease levemir to 4 units daily -monitor blood sugars RKR-unakymvnlw-df changes Chronic pain -well controlled with fentanyl patch -no changes at this time 01/07/2018 Appointment: Carlyn Higginbotham WPtel: [address] [place], [place] [phone] [place] (15 min) Moderate 01/07/2018 Patient Education: [...] HS 2017 Appointment: Carlyn Higginbotham WPtel: [phone] [phone] [place] (15 min) Moderate 2017 [...] to 175mcg. 09/09/2017 Appointment: [facility] [phone] [facility] [place] (15 min) Moderate 09/09/2017 Patient Education: [...] and PRN pain medications - will have halfway fax over PRN medication administration record. 06/08/2017 Appointment: [facility] Pat[facility] [phone] [phone] (30 min) Complex 06/08/2017 Patient Education: Patient [...] over-medication. 04/15/2017 Appointment: [facility] Pat[facility] [phone] [facility] [place] (30 min) Complex 04/15/2017 Patient Education: [...] today. 02/16/2017 Appointment: Vonda Everett WPtel: [phone] [facility] (15 min) Moderate 02/16/2017 Patient Education: Patient [...] concerns. 11/09/2016 Appointment: Sunitha Patel [facility]Ptel[facility] [phone] [facility] (30 min) Complex 11/09/2016 Patient Education: Patient Medication Summary Completed 11/09/2016 Care Plan: Referral Order SNOMED-CT : [id number] Pending 11/09/2016 Patient Education: Patient Medication Summary [...] Follow up weight in 1 month Neck ufne-ahujhujhych-Ttmu PT focus neck/upper body Right earache-cerumen removed with water pick today in the office 07/18/2015 Appointment: (30 min) Complex 07/18/2015 Patient Education: Patient Medication Summary Completed 07/18/2015 Patient Education: Obesity Completed 07/18/2015 Patient Education: .Cervicalgia Neck Pain Completed 07/18/2015 Referral: [facility] WPtel: [phone] [phone] Referral Completed 06/25/2015 Visit Plan: Hypertension - [...] week, get report from and [facility]. I spent over an hour with the patient in direct contact. 06/17/2015 Appointment: Vonda Everett WPtel: [address] [place], [place] [phone] New Patient 06/17/2015 Patient Education: Patient Medication Summary Completed 06/17/2015 Patient Education: Obesity Completed 06/17/2015 Patient Education: Hypertension Completed 06/17/2015 Care Plan: Referral Order SNOMED-CT : [id number] Ordered 06/17/2015 Referral: Jorge Luis Carroll Referral Initiated Referral: [facility] WPtel: [phone] [facility] Referral [...] the consequences of over-medication. . Hypertension - too well controlled - [...] Add 1 scoop of whey protein from [facility] to 2 feedings per day . [...] Follow up weight in 1 month Neck pfzl-mfuiktjdpvz-Mvlr PT focus neck/upper body Right earache-cerumen removed [...] normal liver response to medications. [facility] for post stroke - left sided weakness, neck stiffness, upper extremity weakness Diabetes Mellitus - controlled - per family report - check labs this week, get report from and [facility]. I spent over an hour with the [...] and PRN pain medications - will have halfway fax over PRN medication administration record. . [...] to 4 units daily -monitor blood sugars XVM-wrjlfctqvy-px changes Chronic pain -well controlled with fentanyl patch -no changes at this time
--- OUTSIDE RECORDS SUMMARY | 2018-08-09 11:20 | XMS REPORT | CCD ---
Author Author Vonda Everett Organization Vonda Everett MD, [facility] Address [address] [place] [address] Phone Care Team Providers Care Bet Taker Name Role Phone PP Unavailable CCM Unavailable Summary Purpose Interface Exchange Insurance Providers Payer name Policy type / Coverage type Covered constitution party ID Effective Begin Date Effective End Date WPS Medicare Part B Medicare Part B [id number] Unknown Unknown [place] [employer] Insurance Medicare Part B [id number] Unknown Unknown Family history Father Diagnosis Age At Onset Arthritis Unknown Hypertension Unknown Mother Diagnosis Age At Onset Diabetes mellitus Type 2 Unknown Depression Unknown Arthritis Unknown Stroke Unknown Hypertension Unknown Sister Diagnosis Age At Onset Colon cancer Unknown Social History Social History Element Codes Description Effective Dates Marital status Unknown Maurice 01/07/2018 Living arrangements Unknown [facility] 04/15/2017 Number of children Unknown 3 06/17/2015 Employment Unknown Retired 06/17/[address]: 1125304 Quit over 10 years ago 15+ 06/17/[address]: 062131454 Never drinks alcohol 06/17/2015 Allergies, Adverse Reactions, [...] Instructions fentanyl 100 mcg/hr transdermal patch RxNorm: 253150 1 Patch TD Q72H 06/03/2018 07/02/2018 Active Duragesic 75 mcg/hr transdermal patch RxNorm: 711940 1 Patch TD Q72H 06/03/2018 07/02/2018 Active hyoscyamine 0.125 mg disintegrating tablet RxNorm: 2746163 Tablet(s) Tablet(s) 1-2 Tablet(s) PO Q8 as needed 05/27/2018 No Stop Date Active lorazepam 0.5 mg tablet RxNorm: 564690 1 Tablet(s) PO BID and 1 tab q 6 hours prn 05/24/2018 No Stop Date Active hydrocodone 10 mg-acetaminophen 325 mg tablet RxNorm: 203951 2 Tablet(s) PO scheduled TID 05/24/2018 06/22/2018 Active Not to exceed 3gm/24hr acetaminophen citalopram 20 mg tablet RxNorm: 144554 1 Tablet(s) PO daily 05/17/2018 04/11/2019 Active hydrocodone 10 mg-acetaminophen 325 mg tablet RxNorm: 872509 2 Tablet(s) PO scheduled TID 04/19/2018 05/18/2018 Inactive Not to exceed 3gm/24hr acetaminophen lorazepam 0.5 mg tablet RxNorm: 604142 1 Tablet(s) PO BID and 1 tab q 6 hours prn 04/07/2018 05/23/2018 Inactive hyoscyamine 0.125 mg disintegrating tablet RxNorm: 6201678 Tablet(s) 1-2 Tablet(s) PO Q8 as needed 03/31/2018 05/26/2018 Inactive Duragesic 75 mcg/hr transdermal patch RxNorm: 857043 1 Patch TD Q72H 03/31/2018 04/29/2018 Inactive fentanyl 100 mcg/hr transdermal patch RxNorm: 141363 1 Patch TD Q72H 03/31/2018 04/29/2018 Inactive carvedilol 3.125 mg tablet RxNorm: 960721 Tablet(s) GIVE 1 TABLET VIA PEG TUBE 2 TIMES A DAY 03/30/2018 06/27/2018 Active Generic For:COREG 3.125MG 10/22/2017 9:23:30 AM Voltaren 1 % topical gel RxNorm: 247227 APPLY 4 GRAMS TO RIGHT KNEE FOUR TIMES DAILY 03/30/2018 04/22/2018 Inactive Generic For:VOLTAREN GEL 1% 03/30/2018 11:14:57 AM hydrocodone 10 mg-acetaminophen 325 mg tablet RxNorm: 719404 2 Tablet(s) PO scheduled TID 03/23/2018 04/18/2018 Inactive Not to exceed 3gm/24hr acetaminophen albuterol sulfate concentrate 5 mg/mL(0.5 %) solution for nebulization RxNorm: 550417 1 Vial Milliliter(s) INH TID PRN as needed congestion 03/18/2018 No Stop Date Active cefdinir 300 mg capsule RxNorm: 081066 1 Capsule(s) PO BID 03/18/2018 03/24/2018 Inactive Zithromax Z-Eliu 250 mg tablet RxNorm: 151254 Tablet(s) PO 03/18/2018 05/16/2018 Inactive Voltaren 1 % topical gel RxNorm: 809935 4 Gram(s) TOP QID 03/18/2018 03/29/2018 Inactive hydrochlorothiazide 25 mg tablet RxNorm: 771364 GIVE 1 TABLET VIA PEG TUBE ONCE DAILY 03/11/2018 09/06/2018 Active Generic For:HYDRODIURIL 25 MG TABLET 03/11/2018 9:15:32 AM fentanyl 100 mcg/hr transdermal patch RxNorm: 952614 1 Patch TD Q72H 03/02/2018 03/30/2018 Inactive Duragesic 75 mcg/hr transdermal patch RxNorm: 322200 1 Patch TD Q72H 03/02/2018 03/30/2018 Inactive hydrocodone 10 mg-acetaminophen 325 mg tablet RxNorm: 614076 2 Tablet(s) PO scheduled TID 02/18/2018 03/22/2018 Inactive Not to exceed 3gm/24hr acetaminophen hyoscyamine 0.125 mg disintegrating tablet RxNorm: 9525740 Tablet(s) 1-2 Tablet(s) PO Q8 as needed 02/08/2018 03/30/2018 Inactive fentanyl 100 mcg/hr transdermal patch RxNorm: 768094 1 Patch TD Q72H 02/04/2018 03/01/2018 Inactive hydrocodone 10 mg-acetaminophen 325 mg tablet RxNorm: 290023 2 Tablet(s) PO scheduled TID 02/04/2018 02/17/2018 Inactive Not to exceed 3gm/24hr acetaminophen Duragesic 75 mcg/hr transdermal patch RxNorm: 528696 1 Patch TD Q72H 02/04/2018 03/01/2018 Inactive Levemir FlexTouch U-100 Insulin 100 unit/mL (3 mL) subcutaneous pen RxNorm: 611271 4 Unit(s) SQ QHS 01/07/2018 No Stop Date Active Duragesic 75 mcg/hr transdermal patch RxNorm: 035713 1 Patch TD Q72H 01/07/2018 02/03/2018 Inactive fentanyl 100 mcg/hr transdermal patch RxNorm: 641635 1 Patch TD Q72H 01/07/2018 02/03/2018 Inactive hydrocodone 10 mg-acetaminophen 325 mg tablet RxNorm: 763288 2 Tablet(s) PO scheduled TID 01/05/2018 02/03/2018 Inactive Not to exceed 3gm/24hr acetaminophen hydrocodone 10 mg-acetaminophen 325 mg tablet RxNorm: 855033 2 Tablet(s) PO scheduled TID and 1 tab q 4 as needed 01/04/2018 01/04/2018 Inactive Not to exceed 3gm/24hr acetaminophen cyanocobalamin (vit B-12) 1,000 mcg tablet RxNorm: 451094 1 Tablet(s) PO daily 12/28/2017 11/22/2018 Active baclofen 10 mg tablet RxNorm: 942141 Tablet(s) TAKE 1 TABLET THREE TIMES DAILY VIA STOMACH TUBE 12/27/2017 05/25/2018 Inactive 10/07/2017 5:36:15 PM 10/07/2017 5:36:13 PM N O T I C E Last quantity doesn't match original quantity Duragesic 75 mcg/hr transdermal patch RxNorm: 456455 1 Patch TD Q72H 12/22/2017 01/06/2018 Inactive fentanyl 100 mcg/hr transdermal patch RxNorm: 401576 1 Patch TD Q72H 12/22/2017 01/06/2018 Inactive hydrocodone 10 mg-acetaminophen 325 mg tablet RxNorm: 362613 2 Tablet(s) PO scheduled TID and 1 tab q 4 as needed 12/20/2017 01/03/2018 Inactive Not to exceed 3gm/24hr acetaminophen hyoscyamine 0.125 mg disintegrating tablet RxNorm: 5200759 1-2 Tablet(s) PO Q8 as needed 12/14/2017 02/07/2018 Inactive Duragesic 75 mcg/hr transdermal patch RxNorm: 926813 1 Patch TD Q72H 12/06/2017 12/21/2017 Inactive fentanyl 100 mcg/hr transdermal patch RxNorm: 872848 1 Patch TD Q72H 12/06/2017 12/21/2017 Inactive hydrocodone 10 mg-acetaminophen 325 mg tablet RxNorm: 194009 2 Tablet(s) PO scheduled TID and 1 tab q 4 as needed 11/29/2017 12/19/2017 Inactive Not to exceed 3gm/24hr acetaminophen Duragesic 75 mcg/hr transdermal patch RxNorm: 513825 1 Patch TD Q72H 11/11/2017 12/05/2017 Inactive hydrocodone 10 mg-acetaminophen 325 mg tablet RxNorm: 941842 2 Tablet(s) PO scheduled TID and 1 tab q 4 as needed 11/09/2017 11/28/2017 Inactive Not to exceed 3gm/24hr acetaminophen Levemir FlexTouch U-100 Insulin 100 unit/mL (3 mL) subcutaneous pen RxNorm: 429806 8 Unit(s) SQ QHS 11/09/2017 01/06/2018 Inactive fentanyl 100 mcg/hr transdermal patch RxNorm: 140206 1 Patch TD Q72H 2017 12/05/2017 Inactive hyoscyamine 0.125 mg disintegrating tablet RxNorm: 9785532 1-2 Tablet(s) PO Q8 as needed 11/03/2017 12/13/2017 Inactive carvedilol 3.125 mg tablet RxNorm: 474690 GIVE 1 TABLET VIA PEG TUBE 2 TIMES A DAY 10/22/2017 01/19/2018 Inactive Generic For:COREG 3.125MG 10/22/2017 9:23:30 AM hydrocodone 10 mg-acetaminophen 325 mg tablet RxNorm: 592520 2 Tablet(s) PO scheduled TID and 1 tab q 4 as needed 10/22/2017 2017 Inactive Not to exceed 3gm/24hr acetaminophen fentanyl 100 mcg/hr transdermal patch RxNorm: 493896 1 Patch TD Q72H 10/20/2017 11/07/2017 Inactive Duragesic 75 mcg/hr transdermal patch RxNorm: 521999 1 Patch TD Q72H 10/20/2017 11/10/2017 Inactive lorazepam 0.5 mg tablet RxNorm: 051850 1 Tablet(s) PO BID and 1 tab q 6 hours prn 10/18/2017 No Stop Date Active baclofen 10 mg tablet RxNorm: 502585 TAKE 1 TABLET THREE TIMES DAILY VIA STOMACH TUBE 10/07/2017 12/26/2017 Inactive 10/07/2017 5:36:15 PM 10/07/2017 5:36:13 PM N O T I C E Last quantity doesn't match original quantity cranberry extract 500 mg tablet RxNorm: 7898573 1 Tablet(s) PO QAM 10/04/2017 01/31/2018 Inactive Cipro 500 mg tablet RxNorm: 644839 1 Tablet(s) PO BID 10/04/2017 10/03/2017 Inactive dc keflex hydrocodone 10 mg-acetaminophen 325 mg tablet RxNorm: 300256 2 Tablet(s) PO scheduled TID as needed 10/04/2017 10/21/2017 Inactive Not to exceed 3gm/24hr acetaminophen cranberry extract 500 mg tablet RxNorm: 0068202 1 Tablet(s) PO QAM 10/04/2017 10/03/2017 Inactive Cipro 500 mg tablet RxNorm: 964671 1 Tablet(s) PO BID 10/04/2017 10/10/2017 Inactive dc keflex Duragesic 75 mcg/hr transdermal patch RxNorm: 968378 1 Patch TD Q72H 09/20/2017 10/19/2017 Inactive fentanyl 100 mcg/hr transdermal patch RxNorm: 910012 1 Patch TD Q72H 09/20/2017 10/19/2017 Inactive hyoscyamine 0.125 mg disintegrating tablet RxNorm: 8605093 1 Tablet(s) PO TID and 1 Tablet Q4H prn increased secretions 09/15/2017 11/02/2017 Inactive hydrocodone 10 mg-acetaminophen 325 mg tablet RxNorm: 739882 2 Tablet(s) PO scheduled TID and 1-2 Tabs Q4H PRN pain 09/15/2017 10/03/2017 Inactive Not to exceed 3gm/24hr acetaminophen lorazepam 0.5 mg tablet RxNorm: 465589 1 Tablet(s) PO BID 09/15/2017 10/17/2017 Inactive Lexapro 10 mg tablet RxNorm: 079746 1 Tablet(s) PO daily 09/10/2017 09/14/2017 Inactive Levemir FlexTouch U-100 Insulin 100 unit/mL (3 mL) subcutaneous pen RxNorm: 557258 10 Unit(s) daily 09/09/2017 09/15/2017 Inactive lisinopril 10 mg tablet RxNorm: 146524 1 Tablet(s) PO daily 09/09/2017 05/16/2018 Inactive Duragesic 75 mcg/hr transdermal patch RxNorm: 984041 1 Patch TD Q72H 09/09/2017 09/19/2017 Inactive nystatin 100,000 unit/gram topical cream RxNorm: 353801 1 Gram(s) TOP TID until healed to gaulding 09/06/2017 01/03/2018 Inactive nystatin 100,000 unit/gram topical cream RxNorm: 331914 1 Gram(s) TOP TID until healed to gaulding 09/06/2017 09/05/2017 Inactive hydrocodone 10 mg-acetaminophen 325 mg tablet RxNorm: 665612 2 Tablet(s) PO scheduled TID as needed 08/31/2017 09/14/2017 Inactive Not to exceed 3gm/24hr acetaminophen fentanyl 100 mcg/hr transdermal patch RxNorm: 873018 1 Patch TD Q72H 08/24/2017 09/19/2017 Inactive fentanyl 50 mcg/hr transdermal patch RxNorm: 421405 1 Patch TD Q72H 08/24/2017 09/08/2017 Inactive fentanyl 25 mcg/hr transdermal patch RxNorm: 006060 1 Patch TD Q72H 08/24/2017 08/24/2017 Inactive hyoscyamine 0.125 mg disintegrating tablet RxNorm: 9925435 Tablet(s) 1-2 Tablet(s) PO Q8 as needed 08/23/2017 09/14/2017 Inactive hydrocodone 10 mg-acetaminophen 325 mg tablet RxNorm: 748051 1 Tablet(s) PO scheduled TID et Q6 hours as needed 08/18/2017 08/30/2017 Inactive Not to exceed 3gm/24hr acetaminophen hydrochlorothiazide 25 mg tablet RxNorm: 192238 GIVE 1 TABLET VIA PEG TUBE ONCE DAILY 08/17/2017 02/12/2018 Inactive Generic For:HYDRODIURIL 25 MG TABLET 08/17/2017 9:01:54 AM08/11/2017 10:12:00 AM lorazepam 0.5 mg tablet RxNorm: 356605 1/2 Tablet(s) PO BID 08/03/2017 09/14/2017 Inactive fentanyl 100 mcg/hr transdermal patch RxNorm: 613524 1 Patch TD Q72H 07/26/2017 08/23/2017 Inactive fentanyl 25 mcg/hr transdermal patch RxNorm: 548533 1 Patch TD Q72H 07/26/2017 08/23/2017 Inactive hydrocodone 10 mg-acetaminophen 325 mg tablet RxNorm: 942114 1 Tablet(s) PO scheduled TID et Q6 hours as needed 07/16/2017 08/14/2017 Inactive Not to exceed 3gm/24hr acetaminophen hyoscyamine 0.125 mg disintegrating tablet RxNorm: 3646648 Tablet(s) 1-2 Tablet(s) PO Q8 as needed 07/13/2017 08/01/2017 Inactive baclofen 10 mg tablet RxNorm: 834615 TAKE 1 TABLET THREE TIMES DAILY VIA STOMACH TUBE 07/12/2017 10/06/2017 Inactive 07/12/2017 9:04:08 AM N O T I C E Last quantity doesn't match original quantity lorazepam 0.5 mg tablet RxNorm: 360801 1/2 Tablet(s) PO BID 07/02/2017 08/02/2017 Inactive fentanyl 100 mcg/hr transdermal patch RxNorm: 162237 1 Patch TD Q72H 06/28/2017 07/25/2017 Inactive fentanyl 25 mcg/hr transdermal patch RxNorm: 385980 1 Patch TD Q72H 06/28/2017 07/25/2017 Inactive hyoscyamine 0.125 mg disintegrating tablet RxNorm: 0790667 Tablet(s) 1-2 Tablet(s) PO Q8 as needed 06/03/2017 06/22/2017 Inactive fentanyl 25 mcg/hr transdermal patch RxNorm: 434239 1 Patch TD Q72H 05/26/2017 06/24/2017 Inactive Levemir FlexTouch U-100 Insulin 100 unit/mL (3 mL) subcutaneous pen RxNorm: 851723 20 Unit(s) SQ BID 05/26/2017 09/08/2017 Inactive fentanyl 100 mcg/hr transdermal patch RxNorm: 166502 1 Patch TD Q72H 05/26/2017 06/24/2017 Inactive hydrocodone 10 mg-acetaminophen 325 mg tablet RxNorm: 498713 1 Tablet(s) PO scheduled BID et Q6 hours as needed 05/12/2017 05/11/2017 Inactive hydrocodone 10 mg-acetaminophen 325 mg tablet RxNorm: 649173 1 Tablet(s) PO scheduled TID et Q6 hours as needed 05/12/2017 06/10/2017 Inactive Not to exceed 3gm/24hr acetaminophen docusate sodium 100 mg tablet RxNorm: 7932461 1 Tablet(s) PO BID as needed if no bowel movement 05/10/2017 05/09/2017 Inactive lisinopril 20 mg tablet RxNorm: 666344 1 Tablet(s) PO daily 05/10/2017 09/08/2017 Inactive docusate sodium 100 mg tablet RxNorm: 1057406 1 Tablet(s) PO BID as needed if no bowel movement 05/10/2017 09/14/2017 Inactive fentanyl 25 mcg/hr transdermal patch RxNorm: 565213 1 Patch TD Q72H 05/03/2017 05/25/2017 Inactive lorazepam 0.5 mg tablet RxNorm: 129720 1/2 Tablet(s) PO BID 05/03/2017 07/01/2017 Inactive fentanyl 100 mcg/hr transdermal patch RxNorm: 123004 1 Patch TD Q72H 04/27/2017 05/25/2017 Inactive carvedilol 3.125 mg tablet RxNorm: 700263 Tablet(s) GIVE 1 TABLET VIA PEG TUBE DAILY 04/15/2017 10/21/2017 Inactive Levemir FlexTouch 100 unit/mL (3 mL) subcutaneous insulin pen RxNorm: 637626 10 Unit(s) SQ BID 04/15/2017 2017 Inactive hyoscyamine 0.125 mg disintegrating tablet RxNorm: 5716431 1-2 Tablet(s) PO Q8 as needed 04/14/2017 05/03/2017 Inactive hydrocodone 10 mg-acetaminophen 325 mg tablet RxNorm: 046875 1 Tablet(s) PO scheduled BID et Q6 hours as needed 04/13/2017 05/02/2017 Inactive baclofen 10 mg tablet RxNorm: 643046 TAKE 1 TABLET THREE TIMES DAILY VIA STOMACH TUBE 04/08/2017 05/22/2017 Inactive 04/08/2017 9:32:07 AM fentanyl 25 mcg/hr transdermal patch RxNorm: 619246 1 Patch TD Q72H 04/05/2017 05/02/2017 Inactive lidocaine 10 mg/mL (1 %) injection solution RxNorm: 1340244 1 Milliliter(s) Inj daily Mix with rocephin 03/31/2017 03/30/2017 Inactive Pt resides at [facility] lidocaine 10 mg/mL (1 %) injection solution RxNorm: 7257879 1 Milliliter(s) Inj daily Mix with rocephin 03/31/2017 04/06/2017 Inactive Pt resides at [facility] fentanyl 100 mcg/hr transdermal patch RxNorm: 253009 1 Patch TD Q72H 03/29/2017 04/26/2017 Inactive nystatin 100,000 unit/gram topical powder RxNorm: 669564 APPLY UNDER BREASTS TWICE DAILY FOR YEAST SKIN INFECTION AND APPLY TO UNDERARM AND ABDOMINAL FOLDS AND PERIAREA TWICE DAILY 03/29/2017 03/28/2017 Inactive 03/27/2017 9:12:50 AM nystatin 100,000 unit/gram topical powder RxNorm: 860038 APPLY UNDER BREASTS TWICE DAILY FOR YEAST SKIN INFECTION AND APPLY TO UNDERARM AND ABDOMINAL FOLDS AND PERIAREA TWICE DAILY 03/29/2017 09/14/2017 Inactive 03/29/2017 9:42:55 AM03/27/2017 9:12:50 AM hyoscyamine 0.125 mg disintegrating tablet RxNorm: 6618390 1-2 Tablet(s) PO Q8 as needed 03/08/2017 03/27/2017 Inactive fentanyl 25 mcg/hr transdermal patch RxNorm: 849630 1 Patch TD Q72H 03/02/2017 03/31/2017 Inactive hydrocodone 10 mg-acetaminophen 325 mg tablet RxNorm: 791390 1 Tablet(s) PO scheduled BID et Q6 hours as needed 02/17/2017 03/18/2017 Inactive fentanyl 100 mcg/hr transdermal patch RxNorm: 378383 1 Patch TD Q72H 02/17/2017 03/18/2017 Inactive Lexapro 10 mg tablet RxNorm: 746968 1 Tablet(s) PO daily 02/05/2017 04/14/2017 Inactive Lexapro 10 mg tablet RxNorm: 686077 1 Tablet(s) PO daily 02/05/2017 02/04/2017 Inactive fentanyl 25 mcg/hr transdermal patch RxNorm: 195973 1 Patch TD Q72H 02/04/2017 03/01/2017 Inactive cyanocobalamin (vit B-12) 1,000 mcg tablet RxNorm: 442381 1 Tablet(s) PO daily 01/18/2017 12/13/2017 Inactive hyoscyamine 0.125 mg disintegrating tablet RxNorm: 5644864 Tablet(s) 1-2 Tablet(s) PO Q8 as needed 01/18/2017 02/06/2017 Inactive baclofen 10 mg tablet RxNorm: 567351 TAKE 1 TABLET THREE TIMES DAILY VIA STOMACH TUBE 01/04/2017 02/17/2017 Inactive 01/04/2017 9:25:18 AM fentanyl 100 mcg/hr transdermal patch RxNorm: 998959 1 Patch TD Q72H 12/25/2016 01/23/2017 Inactive hydrochlorothiazide 25 mg tablet RxNorm: 117574 Tablet(s) GIVE 1 TABLET VIA PEG TUBE ONCE A DAY 12/14/2016 07/11/2017 Inactive fentanyl 100 mcg/hr transdermal patch RxNorm: 093000 1 Patch TD Q72H 11/25/2016 12/24/2016 Inactive hyoscyamine 0.125 mg disintegrating tablet RxNorm: 5908607 Tablet(s) 1-2 Tablet(s) PO Q8 as needed 11/25/2016 12/14/2016 Inactive nystatin 100,000 unit/gram topical powder RxNorm: 930218 APPLY UNDER BREASTS TWICE DAILY FOR YEAST SKIN INFECTION AND APPLY TO UNDERARM AND ABDOMINAL FOLDS AND PERIAREA TWICE DAILY 11/24/2016 01/22/2017 Inactive 11/24/2016 9:34:02 AM hydrocodone 10 mg-acetaminophen 325 mg tablet RxNorm: 544214 1 Tablet(s) PO scheduled BID et Q6 hours as needed 11/02/2016 12/01/2016 Inactive cyanocobalamin (vit B-12) 1,000 mcg tablet RxNorm: 677458 1 Tablet(s) PO daily 11/02/2016 01/17/2017 Inactive hyoscyamine 0.125 mg disintegrating tablet RxNorm: 3157752 1-2 Tablet(s) PO Q8 as needed 10/19/2016 11/24/2016 Inactive fentanyl 100 mcg/hr transdermal patch RxNorm: 665843 1 Patch TD Q72H 10/13/2016 11/11/2016 Inactive hydrocodone 10 mg-acetaminophen 325 mg tablet RxNorm: 031576 1 Tablet(s) PO scheduled BID et Q6 hours as needed 10/05/2016 11/01/2016 Inactive baclofen 10 mg tablet RxNorm: 705607 TAKE 1 TABLET THREE TIMES DAILY VIA STOMACH TUBE 10/01/2016 11/14/2016 Inactive 10/01/2016 9:24:37 AM carvedilol 3.125 mg tablet RxNorm: 598132 GIVE 1 TABLET VIA PEG TUBE 2 TIMES A DAY 09/30/2016 12/28/2016 Inactive Generic For:COREG 3.125MG 09/30/2016 1:12:28 PM09/25/2016 9:06:11 AM Probiotic Blend 2 million cell-50 mg capsule RxNorm: 1 Capsule(s) PO BID 09/17/2016 09/23/2016 Inactive Keflex 500 mg capsule RxNorm: 725318 1 Capsule(s) PO TID 09/17/2016 09/23/2016 Inactive hyoscyamine 0.125 mg/5 mL oral elixir RxNorm: 0604989 5 Milliliter(s) PO TID 09/08/2016 09/17/2016 Inactive hyoscyamine 0.125 mg/5 mL oral elixir RxNorm: 8678632 5 Milliliter(s) PO TID 09/08/2016 09/07/2016 Inactive hyoscyamine 0.125 mg disintegrating tablet RxNorm: 2694185 1-2 Tablet(s) PO Q8 as needed 09/07/2016 10/18/2016 Inactive fentanyl 100 mcg/hr transdermal patch RxNorm: 661292 1 Patch TD Q72H 09/01/2016 09/30/2016 Inactive ranitidine 150 mg tablet RxNorm: 547256 1 Tablet(s) PO BID 08/25/2016 No Stop Date Active hydrocodone 10 mg-acetaminophen 325 mg tablet RxNorm: 168669 1 Tablet(s) PO scheduled BID et Q6 hours as needed 08/24/2016 09/22/2016 Inactive cyanocobalamin (vit B-12) 1,000 mcg tablet RxNorm: 856968 1 Tablet(s) PO daily 08/12/2016 11/01/2016 Inactive cyanocobalamin (vit B-12) 1,000 mcg tablet RxNorm: 414067 1 Tablet(s) PO daily 08/12/2016 08/11/2016 Inactive hydrocodone 10 mg-acetaminophen 325 mg tablet RxNorm: 955912 1-2 Tablet(s) PO Q6 as needed 08/03/2016 08/17/2016 Inactive fentanyl 100 mcg/hr transdermal patch RxNorm: 829057 1 Patch TD Q72H 08/03/2016 08/31/2016 Inactive nystatin 100,000 unit/gram topical powder RxNorm: 558229 APPLY UNDER BREASTS TWICE DAILY FOR YEAST SKIN INFECTION AND APPLY TO UNDERARM AND ABDOMINAL FOLDS AND PERIAREA TWICE DAILY 07/17/2016 09/14/2016 Inactive 07/17/2016 3:56:54 PM fentanyl 100 mcg/hr transdermal patch RxNorm: 963609 1 Patch TD Q72H 07/15/2016 08/02/2016 Inactive lisinopril 20 mg tablet RxNorm: 635534 1 Tablet(s) PO daily 07/02/2016 03/28/2017 Inactive hydrocodone 10 mg-acetaminophen 325 mg tablet RxNorm: 092606 1-2 Tablet(s) PO Q6 as needed 07/01/2016 07/15/2016 Inactive Xarelto 20 mg tablet RxNorm: 2099624 Tablet(s) TAKE 1 TABLET VIA PEG TUBE AT BEDTIME 06/19/2016 04/14/2017 Inactive fentanyl 100 mcg/hr transdermal patch RxNorm: 549098 1 Patch TD Q72H 06/17/2016 07/14/2016 Inactive nystatin 100,000 unit/gram topical powder RxNorm: 718267 APPLY TO UNDER BREASTS TWICE DAILY FOR YEAST SKIN INFECTION AND APPLY TO UNDERARM AND ABDOMINAL FOLDS AND PERIAREA TWICE DAILY 06/15/2016 07/16/2016 Inactive Generic For:MYCOSTATIN 100,000 UNITS/GM PW 06/15/2016 12:28:26 PM fentanyl 100 mcg/hr transdermal patch RxNorm: 716673 1 Patch TD Q72H 06/05/2016 06/16/2016 Inactive hydrocodone 10 mg-acetaminophen 325 mg tablet RxNorm: 123956 1-2 Tablet(s) PO Q6 as needed 06/02/2016 06/16/2016 Inactive Probiotic Blend 2 million cell-50 mg capsule RxNorm: 1 Capsule(s) PO BID 05/13/2016 05/19/2016 Inactive nitrofurantoin 100 mg capsule RxNorm: 869333 1 Capsule(s) PO BID 05/13/2016 05/19/2016 Inactive nitrofurantoin 100 mg capsule RxNorm: 662706 1 Capsule(s) PO BID 05/13/2016 05/12/2016 Inactive fentanyl 75 mcg/hr transdermal patch RxNorm: 743269 1 Patch TD Q72H 05/13/2016 06/04/2016 Inactive Keflex 500 mg capsule RxNorm: 256193 1 Capsule(s) PO TID 05/07/2016 05/13/2016 Inactive Patient at [facility] Keflex 500 mg capsule RxNorm: 620649 1 Capsule(s) PO TID 05/07/2016 05/06/2016 Inactive hydrocodone 10 mg-acetaminophen 325 mg tablet RxNorm: 216829 1-2 Tablet(s) PO Q6 as needed 05/04/2016 06/01/2016 Inactive hydrochlorothiazide 25 mg tablet RxNorm: 055402 Tablet(s) GIVE 1 TABLET VIA PEG TUBE ONCE A DAY 04/29/2016 11/24/2016 Inactive hydrochlorothiazide 25 mg tablet RxNorm: 736627 GIVE 1 TABLET VIA PEG TUBE ONCE A DAY 04/22/2016 04/28/2016 Inactive Generic For:HYDRODIURIL 25 MG TABLET refill request fentanyl 75 mcg/hr transdermal patch RxNorm: 096747 1 Patch TD Q72H 04/17/2016 05/12/2016 Inactive Xarelto 20 mg tablet RxNorm: 6032717 TAKE 1 TABLET VIA PEG TUBE AT BEDTIME 04/16/2016 06/14/2016 Inactive 04/16/2016 9:08:52 AM citalopram 40 mg tablet RxNorm: 367122 1 Tablet(s) PO daily 04/02/2016 02/25/2017 Inactive citalopram 40 mg tablet RxNorm: 811893 1 Tablet(s) PO daily 03/27/2016 04/01/2016 Inactive hydrocodone 10 mg-acetaminophen 325 mg tablet RxNorm: 088880 1-2 Tablet(s) PO Q6 as needed 03/27/2016 04/25/2016 Inactive fentanyl 75 mcg/hr transdermal patch RxNorm: 940903 1 Patch TD Q72H 03/18/2016 04/16/2016 Inactive hydrocodone 10 mg-acetaminophen 325 mg tablet RxNorm: 536208 1-2 Tablet(s) PO Q6 as needed 03/11/2016 03/26/2016 Inactive citalopram 40 mg tablet RxNorm: 205301 1 Tablet(s) PO daily 03/04/2016 03/26/2016 Inactive Levemir FlexTouch U-100 Insulin 100 unit/mL (3 mL) subcutaneous pen RxNorm: 505025 20 Unit(s) SQ BID 03/02/2016 09/27/2016 Inactive lisinopril 20 mg tablet RxNorm: 272096 1 Tablet(s) PO daily 02/25/2016 07/01/2016 Inactive Ativan 0.5 mg tablet RxNorm: 100474 1 Tablet(s) PO Q4H as needed 02/18/2016 04/14/2017 Inactive Xarelto 20 mg tablet RxNorm: 1201639 TAKE 1 TABLET VIA PEG TUBE AT BEDTIME 02/12/2016 04/11/2016 Inactive 02/12/2016 9:08:22 AM hydrocodone 10 mg-acetaminophen 325 mg tablet RxNorm: 549735 1-2 Tablet(s) PO Q6 as needed 02/12/2016 03/10/2016 Inactive fentanyl 75 mcg/hr transdermal patch RxNorm: 713320 1 Patch TD Q72H 02/11/2016 03/11/2016 Inactive citalopram 20 mg tablet RxNorm: 018042 1 Tablet(s) PO daily 01/28/2016 03/03/2016 Inactive fentanyl 75 mcg/hr transdermal patch RxNorm: 350707 1 TD Q72H 01/17/2016 02/10/2016 Inactive hydrocodone 10 mg-acetaminophen 325 mg tablet RxNorm: 916570 1-2 Tablet(s) PO Q6 as needed 01/07/2016 02/05/2016 Inactive fentanyl 50 mcg/hr transdermal patch RxNorm: 065324 1 TD Q72H 01/01/2016 01/16/2016 Inactive fentanyl 50 mcg/hr transdermal patch RxNorm: 860746 1 TD q 3 days 12/26/2015 12/31/2015 Inactive Xarelto 20 mg tablet RxNorm: 1419930 TAKE 1 TABLET VIA PEG TUBE AT BEDTIME 12/17/2015 02/11/2016 Inactive 12/16/2015 3:27:57 PM12/14/2015 9:45:17 AM hydrocodone 10 mg-acetaminophen 325 mg tablet RxNorm: 412916 1-2 Tablet(s) PO Q6 as needed 12/06/2015 01/04/2016 Inactive fentanyl 50 mcg/hr transdermal patch RxNorm: 176403 1 TD q 3 days 12/06/2015 12/25/2015 Inactive fentanyl 25 mcg/hr transdermal patch RxNorm: 425304 1 TD q 3 days 11/18/2015 12/05/2015 Inactive Zithromax Z-Eliu 250 mg tablet RxNorm: 297406 1 Tablet(s) PO UD 10/09/2015 02/26/2016 Inactive z pack as directed- please write out instructions- pt at [facility] nystatin 100,000 unit/gram topical powder RxNorm: 558703 APPLY TO UNDER BREASTS TWICE DAILY FOR YEAST SKIN INFECTION AND APPLY TO UNDERARM AND ABDOMINAL FOLDS AND PERIAREA TWICE DAILY 10/07/2015 12/05/2015 Inactive Generic For:MYCOSTATIN 100,000 UNITS/GM PW 10/05/2015 12:07:35 PM fentanyl 25 mcg/hr transdermal patch RxNorm: 707556 1 TD q 3 days 10/03/2015 11/01/2015 Inactive fentanyl 25 mcg/hr transdermal patch RxNorm: 905876 1 TD q 3 days 09/27/2015 10/02/2015 Inactive fentanyl 25 mcg/hr transdermal patch RxNorm: 710658 1 TD q 3 days 09/17/2015 09/26/2015 Inactive fentanyl 25 mcg/hr transdermal patch RxNorm: 922237 1 TD q 3 days 08/30/2015 09/16/2015 Inactive hydrocodone 5 mg-acetaminophen 325 mg tablet RxNorm: 951825 1 Tablet(s) PO Q6 as needed 08/30/2015 09/28/2015 Inactive Diflucan 100 mg tablet RxNorm: 292466 1 Tablet(s) Miscellaneous per peg daily 07/29/2015 08/04/2015 Inactive fentanyl 25 mcg/hr transdermal patch RxNorm: 580319 1 TD q 3 days 07/18/2015 08/29/2015 Inactive hydrocodone 5 mg-acetaminophen 325 mg tablet RxNorm: 511810 1 Tablet(s) PO Q6 as needed 07/18/2015 08/29/2015 Inactive Diflucan 100 mg tablet RxNorm: 255522 1 Tablet(s) Miscellaneous per peg daily 06/17/2015 06/23/2015 Inactive Senna-S 8.6 mg-50 mg tablet RxNorm: 508916 1 Tablet(s) PO daily as needed constipation No Start Date Active Dulcolax (bisacodyl) 10 mg rectal suppository RxNorm: 588393 1 Suppository RTL daily as needed constipation No Start Date Active polyethylene glycol 3350 17 gram/dose oral powder RxNorm: 225249 17 Gram(s) PO daily as needed constipation No Start Date Active baclofen 10 mg tablet RxNorm: 007447 1 Tablet(s) PO TID No Start Date 09/30/2016 Inactive Ativan 0.5 mg tablet RxNorm: 504199 1 Tablet(s) PO Q4H as needed No Start Date 02/17/2016 Inactive ranitidine 150 mg tablet RxNorm: 512003 1 Tablet(s) PO daily No Start Date 08/24/2016 Inactive carvedilol 3.125 mg tablet RxNorm: 658385 1 Tablet(s) PO daily No Start Date 09/29/2016 Inactive citalopram 40 mg tablet RxNorm: 093152 1 Tablet(s) PO daily No Start Date 01/27/2016 Inactive Probiotic Blend oral RxNorm: oral No Start Date 05/12/2016 Inactive hydrochlorothiazide 25 mg tablet RxNorm: 565998 1 Tablet(s) PO daily No Start Date 04/21/2016 Inactive albuterol sulfate concentrate 5 mg/mL(0.5 %) solution for nebulization RxNorm: 341045 1 Vial INH daily as needed congestion No Start Date 03/17/2018 Inactive Levemir FlexTouch 100 unit/mL (3 mL) subcutaneous insulin pen RxNorm: 747150 10 Unit(s) SQ BID No Start Date 03/01/2016 Inactive Zithromax Z-Eliu 250 mg tablet RxNorm: 549496 1 Tablet(s) PO UD No Start Date 10/08/2015 Inactive z pack as directed- please write out instructions- pt at [facility] nystatin 100,000 unit/gram topical powder RxNorm: 555900 Gram(s) TOP BID as needed No Start Date 10/06/2015 Inactive pravastatin 40 mg tablet RxNorm: 130066 Tablet(s) PO daily No Start Date 04/14/2017 Inactive lorazepam 0.5 mg tablet RxNorm: 705842 1/2 Tablet(s) PO BID No Start Date 05/02/2017 Inactive Xarelto 20 mg tablet RxNorm: 5041445 1 Tablet(s) PO daily No Start Date 12/16/2015 Inactive fentanyl 25 mcg/hr transdermal patch RxNorm: 901463 1 TD q 3 days No Start Date 07/17/2015 Inactive lisinopril 20 mg tablet RxNorm: 115897 1 Tablet(s) PO daily No Start Date 02/24/2016 Inactive hydrocodone 5 mg-acetaminophen 325 mg tablet RxNorm: 263763 1 Tablet(s) PO Q6 as needed No Start Date 07/17/2015 Inactive citalopram 40 mg tablet RxNorm: 389377 1 Tablet(s) PO daily No Start Date 03/03/2016 Inactive hyoscyamine 0.125 mg disintegrating tablet RxNorm: 4362724 1-2 Tablet(s) PO Q8 as needed No [...] Code Item Item Code Result Date %Hba1C Xeh760 % HbA1c 86944- 6 5.5 % 05/18/2018 %Hba1C Bdw686 Gluc Ave 111 mg/dL 05/18/2018 Cbc With [...] 32.3 pg 05/18/2018 Cbc With Differential Ord2 [place]% 4.9 % 05/18/2018 Cbc With Differential Ord2 [...] 1.81 K/ul 05/18/2018 Cbc With Differential Ord2 [place] ABS# 0.4 K/ul 05/18/2018 Cbc With Differential Ord2 Eos ABS# 0.6 K/ul 05/18/2018 Cbc With Differential Ord2 Baso ABS# 0.0 K/ul 05/18/2018 Tsh Ord6 TSH (3rd IS) 0.85 uIU/mL 05/18/2018 Comp Metabolic Slm092 NA 137 mEq/L 05/18/2018 Comp Metabolic Mbz668 K 4.2 mEq/L 05/18/2018 Comp Metabolic Uld615 CL 97 mEq/L 05/18/2018 Comp Metabolic Nrc098 CO2 34.0 mEq/L 05/18/2018 Comp Metabolic Voe017 ANION GAP 10 05/18/2018 Comp Metabolic Qda886 GLUCOSE 177 mg/dL 05/18/2018 Comp Metabolic Hby291 Creat 0.5 mg/dL 05/18/2018 Comp Metabolic Egg734 eGFR 122 ml/min/1.73m2 05/18/2018 Comp Metabolic Xwo145 BUN 23 mg/dL 05/18/2018 Comp Metabolic Lee402 B/C Ratio 43.4 Ratio 05/18/2018 Comp Metabolic Gyn242 CALCIUM 9.2 mg/dL 05/18/2018 Comp Metabolic Elz699 ALK PHOS 86 U/L 05/18/2018 Comp Metabolic Udb307 AST(SGOT) 14 U/L 05/18/2018 Comp Metabolic Eii058 ALT(SGPT) 9 U/L 05/18/2018 Comp Metabolic Ini333 BILI T 0.3 mg/dL 05/18/2018 Comp Metabolic Puu935 ALBUMIN 3.7 g/dL 05/18/2018 Comp Metabolic Nhw193 TPRO 6.2 g/dL 05/18/2018 Comp Metabolic Nzl967 GLOB 2.6 g/dL 05/18/2018 Comp Metabolic Mjt735 A/G Ratio 1.4 Ratio 05/18/2018 Comp Metabolic Qfl491 Osmo 282 mOsmo 05/18/2018 A1C Frequency Lpg951 A1CF 76704-9 Last A1C performed at [facility] [place] lab on: 02-14-2018 05/10/2018 [...] 30.7 pg 02/14/2018 Cbc With Differential Ord2 [place]% 7.4 % 02/14/2018 Cbc With Differential Ord2 [...] 2.14 K/ul 02/14/2018 Cbc With Differential Ord2 [place] ABS# 0.5 K/ul 02/14/2018 Cbc With Differential Ord2 Eos ABS# 0.3 K/ul 02/14/2018 Cbc With Differential Ord2 Baso ABS# 0.0 K/ul 02/14/2018 Comp Metabolic Ely082 NA 142 mEq/L 02/14/2018 Comp Metabolic Pzi765 K 4.5 mEq/L 02/14/2018 Comp Metabolic Ssf303 CL 97 mEq/L 02/14/2018 Comp Metabolic Itm050 CO2 41.0 mEq/L 02/14/2018 Comp Metabolic Uje388 ANION GAP 9 02/14/2018 Comp Metabolic Egp712 GLUCOSE 111 mg/dL 02/14/2018 Comp Metabolic Ayp029 Creat 0.6 mg/dL 02/14/2018 Comp Metabolic Nco233 eGFR 108 ml/min/1.73m2 02/14/2018 Comp Metabolic Bkc585 BUN 32 mg/dL 02/14/2018 Comp Metabolic Upn896 B/C Ratio 54.2 Ratio 02/14/2018 Comp Metabolic Ygw834 CALCIUM 8.9 mg/dL 02/14/2018 Comp Metabolic Kij163 ALK PHOS 81 U/L 02/14/2018 Comp Metabolic Cpo173 AST(SGOT) 14 U/L 02/14/2018 Comp Metabolic Dfl685 ALT(SGPT) 11 U/L 02/14/2018 Comp Metabolic Wsj746 BILI T 0.3 mg/dL 02/14/2018 Comp Metabolic Rzl155 ALBUMIN 3.4 g/dL 02/14/2018 Comp Metabolic Qnq367 TPRO 6.3 g/dL 02/14/2018 Comp Metabolic Gfu327 GLOB 2.9 g/dL 02/14/2018 Comp Metabolic Bfa810 A/G Ratio 1.2 Ratio 02/14/2018 Comp Metabolic Zwk107 Osmo 291 mOsmo 02/14/2018 %Hba1C Nlq124 % HbA1c 06017- 6 5.5 % 02/14/2018 %Hba1C Bmy867 Gluc Ave 111 mg/dL 02/14/2018 Prealbumin 895142 PREALBUMIN 27 mg/dL 11/24/2017 %Hba1C Slv789 % HbA1c 42608- 6 5.5 % 11/04/2017 %Hba1C Pbu566 Gluc Ave 111 mg/dL 11/04/2017 Culture Urine [id number] URINE CULTURE SEE NOTES 10/04/2017 Culture Urine [id number] Continued Results 10/04/2017 Urine Culture Ucult Complete [...] Ord28 U-Com Culture to follow 10/01/2017 B12 Jxw719 B12 >1500.00 pg/ml 02/19/2017 Cbc With Differential [...] 31.5 pg 02/02/2017 Cbc With Differential Ord2 [place]% 8.3 % 02/02/2017 Cbc With Differential Ord2 [...] 2.28 K/ul 02/02/2017 Cbc With Differential Ord2 [place] ABS# 0.6 K/ul 02/02/2017 Cbc With Differential Ord2 Eos ABS# 0.4 K/ul 02/02/2017 Cbc With Differential Ord2 Baso ABS# 0.0 K/ul 02/02/2017 %Hba1C Pby522 % HbA1c 91986- 6 5.2 % 02/02/2017 %Hba1C Ruh652 Gluc Ave 103 mg/dL 02/02/2017 Comp Metabolic Hon635 NA 138 mEq/L 02/02/2017 Comp Metabolic Fvt732 K 4.5 mEq/L 02/02/2017 Comp Metabolic Oke954 CL 98 mEq/L 02/02/2017 Comp Metabolic Mqd008 CO2 37.0 mEq/L 02/02/2017 Comp Metabolic Gzv980 ANION GAP 8 02/02/2017 Comp Metabolic Mjv392 GLUCOSE 94 mg/dL 02/02/2017 Comp Metabolic Fyg555 Creat 0.7 mg/dL 02/02/2017 Comp Metabolic Uvk752 eGFR 88 ml/min/1.73m2 02/02/2017 Comp Metabolic Fff848 BUN 36 mg/dL 02/02/2017 Comp Metabolic Vla552 B/C Ratio 50.7 Ratio 02/02/2017 Comp Metabolic Pfw609 CALCIUM 9.0 mg/dL 02/02/2017 Comp Metabolic Srt808 ALK PHOS 78 U/L 02/02/2017 Comp Metabolic Ekp605 AST(SGOT) 22 U/L 02/02/2017 Comp Metabolic Zqp494 ALT(SGPT) 28 U/L 02/02/2017 Comp Metabolic Szp341 BILI T 0.3 mg/dL 02/02/2017 Comp Metabolic Ovy941 ALBUMIN 3.3 g/dL 02/02/2017 Comp Metabolic Qqc076 TPRO 5.9 g/dL 02/02/2017 Comp Metabolic Uyp378 GLOB 2.6 g/dL 02/02/2017 Comp Metabolic Wwp219 A/G Ratio 1.3 Ratio 02/02/2017 Comp Metabolic Jdm095 Osmo 284 mOsmo 02/02/2017 %Hba1C Mgg883 % HbA1c 99027- 6 5.0 % 10/29/2016 %Hba1C Ixh653 Gluc Ave 97 mg/dL 10/29/2016 Culture Urine [id number] URINE CULTURE SEE NOTES 09/21/2016 Culture Urine [id number] Continued Results 09/21/2016 Urine Culture Ucult Complete [...] 32.4 pg 07/30/2016 Cbc With Differential Ord2 [place]% 7.2 % 07/30/2016 Cbc With Differential Ord2 [...] 2.69 K/ul 07/30/2016 Cbc With Differential Ord2 [place] ABS# 0.5 K/ul 07/30/2016 Cbc With Differential Ord2 Eos ABS# 0.5 K/ul 07/30/2016 Cbc With Differential Ord2 Baso ABS# 0.0 K/ul 07/30/2016 Comp Metabolic Wce405 NA 141 mEq/L 07/30/2016 Comp Metabolic Gml673 K 4.3 mEq/L 07/30/2016 Comp Metabolic Jkc163 CL 100 mEq/L 07/30/2016 Comp Metabolic Tiy659 CO2 33.0 mEq/L 07/30/2016 Comp Metabolic Ekv606 ANION GAP 12 07/30/2016 Comp Metabolic Cev104 GLUCOSE 64 mg/dL 07/30/2016 Comp Metabolic Amc864 Creat 0.5 mg/dL 07/30/2016 Comp Metabolic Vwf170 eGFR 126 ml/min/1.73m2 07/30/2016 Comp Metabolic Eri790 BUN 25 mg/dL 07/30/2016 Comp Metabolic Aci432 B/C Ratio 48.1 Ratio 07/30/2016 Comp Metabolic Qkr909 CALCIUM 8.9 mg/dL 07/30/2016 Comp Metabolic Lkz419 ALK PHOS 90 U/L 07/30/2016 Comp Metabolic Qlk876 AST(SGOT) 22 U/L 07/30/2016 Comp Metabolic Ghu571 ALT(SGPT) 36 U/L 07/30/2016 Comp Metabolic Hgw934 BILI T 0.3 mg/dL 07/30/2016 Comp Metabolic Oly058 ALBUMIN 3.4 g/dL 07/30/2016 Comp Metabolic Mrj105 TPRO 6.0 g/dL 07/30/2016 Comp Metabolic Gny447 GLOB 2.7 g/dL 07/30/2016 Comp Metabolic Vnv128 A/G Ratio 1.3 Ratio 07/30/2016 Comp Metabolic Ktq300 Osmo 284 mOsmo 07/30/2016 A1C Frequency Hqs884 A1CF 69160-6 Last A1C performed at [facility] [place] lab on: 05-12-2016 07/30/2016 %Hba1C Fxf499 % HbA1c 04282- 6 5.2 % 05/12/2016 %Hba1C Oij142 Gluc Ave 103 mg/dL 05/12/2016 Culture Urine [id number] URINE CULTURE SEE NOTES 05/11/2016 Urine Culture [...] U-Com Culture to follow 05/06/2016 Culture Urine [id number] URINE CULTURE SEE NOTES 03/17/2016 Culture Urine [id number] Continued Results 03/17/2016 Urine Culture Ucult Complete [...] 32.0 pg 02/11/2016 Cbc With Differential Ord2 [place]% 9.1 % 02/11/2016 Cbc With Differential Ord2 [...] 2.59 K/ul 02/11/2016 Cbc With Differential Ord2 [place] ABS# 0.6 K/ul 02/11/2016 Cbc With Differential Ord2 Eos ABS# 0.3 K/ul 02/11/2016 Cbc With Differential Ord2 Baso ABS# 0.0 K/ul 02/11/2016 Comp Metabolic Nfm324 NA 137 mEq/L 02/11/2016 Comp Metabolic Fgo108 K 4.4 mEq/L 02/11/2016 Comp Metabolic Myr163 CL 100 mEq/L 02/11/2016 Comp Metabolic Rqj280 CO2 25.0 mEq/L 02/11/2016 Comp Metabolic Eop743 ANION GAP 16 02/11/2016 Comp Metabolic Lde695 GLUCOSE 99 mg/dL 02/11/2016 Comp Metabolic Uza995 Creat 0.6 mg/dL 02/11/2016 Comp Metabolic Iim831 eGFR 99 ml/min/1.73m2 02/11/2016 Comp Metabolic Vax262 BUN 27 mg/dL 02/11/2016 Comp Metabolic Cyw775 B/C Ratio 42.2 Ratio 02/11/2016 Comp Metabolic Aep769 CALCIUM 9.2 mg/dL 02/11/2016 Comp Metabolic Asd426 ALK PHOS 74 U/L 02/11/2016 Comp Metabolic Afs782 AST(SGOT) 24 U/L 02/11/2016 Comp Metabolic Kpb926 ALT(SGPT) 26 U/L 02/11/2016 Comp Metabolic Cqe075 BILI T 0.5 mg/dL 02/11/2016 Comp Metabolic Azu181 ALBUMIN 3.5 g/dL 02/11/2016 Comp Metabolic Gho257 TPRO 6.2 g/dL 02/11/2016 Comp Metabolic Flw153 GLOB 2.7 g/dL 02/11/2016 Comp Metabolic Knj662 A/G Ratio 1.3 Ratio 02/11/2016 Comp Metabolic Rut282 Osmo 279 mOsmo 02/11/2016 Review of Systems [...] Effective Dates Notes Full Exam - General 1995 Constitutional general appearance Development: well developed 05/17/2018 [...] 1: 128/86 Code: 8480-6 BMI: 31.4 Code: 33288-9 Heart Rate 1: 72 bpm Height: 5'1" Weight: 166 lbs 06/17/2015 Blood Pressure 1: 110/78 Code: 8480-6 BMI: 33.3 Code: 20856-7 Heart Rate 1: 74 bpm Height: 5'1" [...] Present Encounters Encounter Performer Location Codes Date ([id number]) 09058 EST. PATIENT, LEVEL IV Diagnosis: Essential (primary) hypertension[ICD10: I10] Diagnosis: Chronic pain syndrome[ICD10: G89.4] Diagnosis: Type 2 diabetes mellitus without complications[ICD10: E11.9] Carlyn Everett MD, [facility] CPT-4: 87191 05/17/2018 ([id number]) 05960 EST. PATIENT, LEVEL IV Diagnosis: Cough[ICD10: R05] Diagnosis: Pneumonia, unspecified organism[ICD10: J18.9] Diagnosis: Pain in right knee[ICD10: M25.561] Carlyn Everett MD, [facility] CPT- 4: 04419 03/18/2018 ([id number]) 57354 EST. PATIENT, LEVEL IV Diagnosis: Type 2 diabetes mellitus without complications[ICD10: E11.9] Diagnosis: Essential (primary) hypertension[ICD10: I10] Diagnosis: Chronic pain syndrome[ICD10: G89.4] Carlyn Everett MD, [facility] CPT-4: 23661 01/07/2018 ([id number]) 15133 EST. PATIENT, LEVEL IV Diagnosis: Essential (primary) hypertension[ICD10: I10] Diagnosis: Type 2 diabetes mellitus without complications[ICD10: E11.9] Carlyn Everett MD, [facility] CPT-4: 21047 2017 ([id number]) 19557 EST. PATIENT, LEVEL IV Diagnosis: Type 2 diabetes mellitus with hyperglycemia[ICD10: E11.65] Diagnosis: Essential (primary) hypertension[ICD10: I10] Diagnosis: Pain in left shoulder[ICD10: M25.512] Diagnosis: Pain in right shoulder[ICD10: M25.511] Diagnosis: Pain in left knee[ICD10: M25.562] Diagnosis: Pain in right knee[ICD10: M25.561] Vonda Everett MD, [facility] CPT- 4: 51632 09/09/2017 25089 EST. PATIENT, LEVEL IV Diagnosis: Essential (primary) hypertension[ICD10: I10] Diagnosis: Type 2 diabetes mellitus with hyperglycemia[ICD10: E11.65] Diagnosis: Low back pain[ICD10: M54.5] Sunitha Everett MD, [facility] CPT-4: 99286 06/08/2017 ([id number]) 36792 EST. PATIENT, LEVEL IV Diagnosis: Essential (primary) hypertension[ICD10: I10] Diagnosis: Type 2 diabetes mellitus with hyperglycemia[ICD10: E11.65] Diagnosis: Low back pain[ICD10: M54.5] Sunitha Everett MD, [facility] CPT-4: 92827 04/15/2017 ([id number]) 29131 EST. PATIENT, LEVEL IV Diagnosis: Essential (primary) hypertension[ICD10: I10] Diagnosis: Type 2 diabetes mellitus with hyperglycemia[ICD10: E11.65] Diagnosis: Low back pain[ICD10: M54.5] Vonda Everett MD, [facility] CPT-4: 28954 02/16/2017 93660 EST. 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 05/17/2018 Appointment: Carlyn Higginbotham WPtel: [address] [place], [place] [phone] (15 min) Moderate 05/17/2018 Patient Education: Patient Medication Summary Completed 05/17/2018 Patient Education: Hypertension Completed 05/17/2018 Patient Education: Diabetes Completed 05/17/2018 Appointment: Carlyn Higginbotham WPtel: [phone] [place] (15 min) Moderate 04/07/2018 Visit Plan: Pneumonia - Pt has been diagnosed with pneumonia by physical exam. A chest xray has been ordered as have antibiotics. The pt is aware of the diagnosis and the need for acute treatment of this illness. Right knee pain -xray knee-rx for voltaren gel 03/18/2018 Appointment: Carlyn Higginbotham WPtel: [phone] [phone] [place] (30 min) Complex 03/18/2018 Patient Education: Patient Medication Summary Completed 03/18/2018 Appointment: Carlyn Higginbotham WPtel: [phone] [phone] [place] (30 min) Complex 03/17/2018 Appointment: Carlyn Higginbotham WPtel: [phone] [place] (15 min) Moderate 03/10/2018 Appointment: Carlyn Higginbotham WPtel: [phone] [place] (15 min) Moderate 02/08/2018 Visit Plan: DM -decrease levemir to 4 units daily -monitor blood sugars STZ-stkizaggmr-pa changes Chronic pain -well controlled with fentanyl patch -no changes at this time 01/07/2018 Appointment: Carlyn Higginbotham WPtel: [phone] [place] (15 min) Moderate 01/07/2018 Patient [...] HS 2017 Appointment: Carlyn Higginbotham WPtel: [phone] [phone] [place] (15 min) Moderate 2017 Patient [...] to 175mcg. 09/09/2017 Appointment: Vonda Everett WPtel: [facility] [place] (15 min) Moderate 09/09/2017 Patient [...] and PRN pain medications - will have fpc fax over PRN medication administration record. 06/08/2017 Appointment: Sunitha Patel WPtel: [phone] [facility] (30 min) Complex 06/08/2017 Patient Education: [...] over-medication. 04/15/2017 Appointment: [phone] (30 min) Complex 04/15/2017 Patient Education: Patient [...] hydrocodone today. 02/16/2017 Appointment: [phone] (15 min) Moderate 02/16/2017 Patient Education: Patient [...] concerns. 11/09/2016 Appointment: Sunitha Patel [facility]el[phone] (30 min) Complex 11/09/2016 Patient Education: Patient Medication Summary Completed 11/09/2016 Care Plan: Referral Order SNOMED-CT : [id number] Pending 11/09/2016 Patient Education: Patient Medication Summary [...] Follow up weight in 1 month Neck sard-qcajdxadrcl-Zjjh PT focus neck/upper body Right earache-cerumen removed with water pick today in the office 07/18/2015 Appointment: (30 min) Complex 07/18/2015 Patient Education: Patient Medication Summary Completed 07/18/2015 Patient Education: Obesity Completed 07/18/2015 Patient Education: .Cervicalgia Neck Pain Completed 07/18/2015 Referral: [facility] WPtel: [phone] Referral Completed 06/25/2015 Visit Plan: Hypertension [...] normal liver response to medications. [facility] for post stroke - left sided weakness, neck stiffness, upper extremity weakness Diabetes Mellitus - controlled - per family report - check labs this week, get report from and [facility]. I spent over an hour with the patient in direct contact. 06/17/2015 Appointment: Vonda Everett WPtel: [phone] New Patient 06/17/2015 Patient Education: Patient Medication Summary Completed 06/17/2015 Patient Education: Obesity Completed 06/17/2015 Patient Education: Hypertension Completed 06/17/2015 Care Plan: Referral Order SNOMED-CT : [id number] Ordered 06/17/2015 Referral: Jorge Luis Carroll Ref[facility]: [phone] Referral Appointment Requested Instructions Comment . [...] Add 1 scoop of whey protein from [facility] to 2 feedings per day . [...] Follow up weight in 1 month Neck revu-eaxwfxzfnrd-Eyae PT focus neck/upper body Right earache-cerumen removed [...] liver response to medications. referral to [facility] physical [facility] occupational therapy for post stroke - left sided weakness, neck stiffness, upper extremity weakness Diabetes Mellitus - controlled - per family report - check labs this week, get report from and [facility]. I spent over an hour with the [...] and PRN pain medications - will have fpc fax over PRN medication administration record. . [...] to 4 units daily -monitor blood sugars PUV-jyvvlcwjbe-kk changes Chronic pain -well controlled with fentanyl patch -no changes at this time
[2018-08-09 11:23] VITALS: BP 137/67
--- OUTSIDE RECORDS SUMMARY | 2018-08-09 11:23 | XMS REPORT | CCD ---
Author Author Vonda Everett Organization Vonda Everett MD, [facility] Address [address] [place] [address] Phone Care Team Providers Care Cigarette Maker Name Role Phone PP Unavailable CCM Unavailable Summary Purpose Interface Exchange Insurance Providers Payer name Policy type / Coverage type Covered constitution party ID Effective Begin Date Effective End Date WPS Medicare Part B Medicare Part B [id number] Unknown Unknown [employer] Medicare Part B [id number] Unknown Unknown Family history Father Diagnosis Age At Onset Arthritis Unknown Hypertension Unknown Mother Diagnosis Age At Onset Diabetes mellitus Type 2 Unknown Depression Unknown Arthritis Unknown Stroke Unknown Hypertension Unknown Sister Diagnosis Age At Onset Colon cancer Unknown Social History Social History Element Codes Description Effective Dates Marital status Unknown Maurice 01/07/2018 Living arrangements Unknown [facility] 04/15/2017 Number of children Unknown 3 06/17/2015 Employment Unknown Retired 06/17/[address]: 8819728 Quit over 10 years ago 15+ 06/17/[address]: 100425773 Never drinks alcohol 06/17/2015 Allergies, Adverse Reactions, [...] Instructions hyoscyamine 0.125 mg disintegrating tablet RxNorm: 4515746 Tablet(s) Tablet(s) 1-2 Tablet(s) PO Q8 as needed 05/27/2018 No Stop Date Active lorazepam 0.5 mg tablet RxNorm: 858440 1 Tablet(s) PO BID and 1 tab q 6 hours prn 05/24/2018 No Stop Date Active hydrocodone 10 mg-acetaminophen 325 mg tablet RxNorm: 700613 2 Tablet(s) PO scheduled TID 05/24/2018 06/22/2018 Active Not to exceed 3gm/24hr acetaminophen citalopram 20 mg tablet RxNorm: 617002 1 Tablet(s) PO daily 05/17/2018 04/11/2019 Active hydrocodone 10 mg-acetaminophen 325 mg tablet RxNorm: 894350 2 Tablet(s) PO scheduled TID 04/19/2018 05/18/2018 Inactive Not to exceed 3gm/24hr acetaminophen lorazepam 0.5 mg tablet RxNorm: 674807 1 Tablet(s) PO BID and 1 tab q 6 hours prn 04/07/2018 05/23/2018 Inactive Duragesic 75 mcg/hr transdermal patch RxNorm: 144436 1 Patch TD Q72H 03/31/2018 04/29/2018 Inactive fentanyl 100 mcg/hr transdermal patch RxNorm: 279439 1 Patch TD Q72H 03/31/2018 04/29/2018 Inactive hyoscyamine 0.125 mg disintegrating tablet RxNorm: 3725275 Tablet(s) 1-2 Tablet(s) PO Q8 as needed 03/31/2018 05/26/2018 Inactive carvedilol 3.125 mg tablet RxNorm: 097609 Tablet(s) GIVE 1 TABLET VIA PEG TUBE 2 TIMES A DAY 03/30/2018 06/27/2018 Active Generic For:COREG 3.125MG 10/22/2017 9:23:30 AM Voltaren 1 % topical gel RxNorm: 324134 APPLY 4 GRAMS TO RIGHT KNEE FOUR TIMES DAILY 03/30/2018 04/22/2018 Inactive Generic For:VOLTAREN GEL 1% 03/30/2018 11:14:57 AM hydrocodone 10 mg-acetaminophen 325 mg tablet RxNorm: 704679 2 Tablet(s) PO scheduled TID 03/23/2018 04/18/2018 Inactive Not to exceed 3gm/24hr acetaminophen albuterol sulfate concentrate 5 mg/mL(0.5 %) solution for nebulization RxNorm: 453044 1 Vial Milliliter(s) INH TID PRN as needed congestion 03/18/2018 No Stop Date Active cefdinir 300 mg capsule RxNorm: 589917 1 Capsule(s) PO BID 03/18/2018 03/24/2018 Inactive Zithromax Z-Eliu 250 mg tablet RxNorm: 102882 Tablet(s) PO 03/18/2018 05/16/2018 Inactive Voltaren 1 % topical gel RxNorm: 016366 4 Gram(s) TOP QID 03/18/2018 03/29/2018 Inactive hydrochlorothiazide 25 mg tablet RxNorm: 140498 GIVE 1 TABLET VIA PEG TUBE ONCE DAILY 03/11/2018 09/06/2018 Active Generic For:HYDRODIURIL 25 MG TABLET 03/11/2018 9:15:32 AM fentanyl 100 mcg/hr transdermal patch RxNorm: 795414 1 Patch TD Q72H 03/02/2018 03/30/2018 Inactive Duragesic 75 mcg/hr transdermal patch RxNorm: 972158 1 Patch TD Q72H 03/02/2018 03/30/2018 Inactive hydrocodone 10 mg-acetaminophen 325 mg tablet RxNorm: 802773 2 Tablet(s) PO scheduled TID 02/18/2018 03/22/2018 Inactive Not to exceed 3gm/24hr acetaminophen hyoscyamine 0.125 mg disintegrating tablet RxNorm: 2762162 Tablet(s) 1-2 Tablet(s) PO Q8 as needed 02/08/2018 03/30/2018 Inactive fentanyl 100 mcg/hr transdermal patch RxNorm: 109641 1 Patch TD Q72H 02/04/2018 03/01/2018 Inactive hydrocodone 10 mg-acetaminophen 325 mg tablet RxNorm: 503824 2 Tablet(s) PO scheduled TID 02/04/2018 02/17/2018 Inactive Not to exceed 3gm/24hr acetaminophen Duragesic 75 mcg/hr transdermal patch RxNorm: 973354 1 Patch TD Q72H 02/04/2018 03/01/2018 Inactive Levemir FlexTouch U-100 Insulin 100 unit/mL (3 mL) subcutaneous pen RxNorm: 827903 4 Unit(s) SQ QHS 01/07/2018 No Stop Date Active Duragesic 75 mcg/hr transdermal patch RxNorm: 969845 1 Patch TD Q72H 01/07/2018 02/03/2018 Inactive fentanyl 100 mcg/hr transdermal patch RxNorm: 337351 1 Patch TD Q72H 01/07/2018 02/03/2018 Inactive hydrocodone 10 mg-acetaminophen 325 mg tablet RxNorm: 435839 2 Tablet(s) PO scheduled TID 01/05/2018 02/03/2018 Inactive Not to exceed 3gm/24hr acetaminophen hydrocodone 10 mg-acetaminophen 325 mg tablet RxNorm: 266781 2 Tablet(s) PO scheduled TID and 1 tab q 4 as needed 01/04/2018 01/04/2018 Inactive Not to exceed 3gm/24hr acetaminophen cyanocobalamin (vit B-12) 1,000 mcg tablet RxNorm: 641858 1 Tablet(s) PO daily 12/28/2017 11/22/2018 Active baclofen 10 mg tablet RxNorm: 245403 Tablet(s) TAKE 1 TABLET THREE TIMES DAILY VIA STOMACH TUBE 12/27/2017 05/25/2018 Inactive 10/07/2017 5:36:15 PM 10/07/2017 5:36:13 PM N O T I C E Last quantity doesn't match original quantity Duragesic 75 mcg/hr transdermal patch RxNorm: 713596 1 Patch TD Q72H 12/22/2017 01/06/2018 Inactive fentanyl 100 mcg/hr transdermal patch RxNorm: 101865 1 Patch TD Q72H 12/22/2017 01/06/2018 Inactive hydrocodone 10 mg-acetaminophen 325 mg tablet RxNorm: 572741 2 Tablet(s) PO scheduled TID and 1 tab q 4 as needed 12/20/2017 01/03/2018 Inactive Not to exceed 3gm/24hr acetaminophen hyoscyamine 0.125 mg disintegrating tablet RxNorm: 3854048 1-2 Tablet(s) PO Q8 as needed 12/14/2017 02/07/2018 Inactive Duragesic 75 mcg/hr transdermal patch RxNorm: 520933 1 Patch TD Q72H 12/06/2017 12/21/2017 Inactive fentanyl 100 mcg/hr transdermal patch RxNorm: 594054 1 Patch TD Q72H 12/06/2017 12/21/2017 Inactive hydrocodone 10 mg-acetaminophen 325 mg tablet RxNorm: 517842 2 Tablet(s) PO scheduled TID and 1 tab q 4 as needed 11/29/2017 12/19/2017 Inactive Not to exceed 3gm/24hr acetaminophen Duragesic 75 mcg/hr transdermal patch RxNorm: 220634 1 Patch TD Q72H 11/11/2017 12/05/2017 Inactive hydrocodone 10 mg-acetaminophen 325 mg tablet RxNorm: 428955 2 Tablet(s) PO scheduled TID and 1 tab q 4 as needed 11/09/2017 11/28/2017 Inactive Not to exceed 3gm/24hr acetaminophen Levemir FlexTouch U-100 Insulin 100 unit/mL (3 mL) subcutaneous pen RxNorm: 344130 8 Unit(s) SQ QHS 11/09/2017 01/06/2018 Inactive fentanyl 100 mcg/hr transdermal patch RxNorm: 174368 1 Patch TD Q72H 2017 12/05/2017 Inactive hyoscyamine 0.125 mg disintegrating tablet RxNorm: 9621165 1-2 Tablet(s) PO Q8 as needed 11/03/2017 12/13/2017 Inactive carvedilol 3.125 mg tablet RxNorm: 338224 GIVE 1 TABLET VIA PEG TUBE 2 TIMES A DAY 10/22/2017 01/19/2018 Inactive Generic For:COREG 3.125MG 10/22/2017 9:23:30 AM hydrocodone 10 mg-acetaminophen 325 mg tablet RxNorm: 783442 2 Tablet(s) PO scheduled TID and 1 tab q 4 as needed 10/22/2017 2017 Inactive Not to exceed 3gm/24hr acetaminophen fentanyl 100 mcg/hr transdermal patch RxNorm: 121392 1 Patch TD Q72H 10/20/2017 11/07/2017 Inactive Duragesic 75 mcg/hr transdermal patch RxNorm: 199195 1 Patch TD Q72H 10/20/2017 11/10/2017 Inactive lorazepam 0.5 mg tablet RxNorm: 598885 1 Tablet(s) PO BID and 1 tab q 6 hours prn 10/18/2017 No Stop Date Active baclofen 10 mg tablet RxNorm: 895242 TAKE 1 TABLET THREE TIMES DAILY VIA STOMACH TUBE 10/07/2017 12/26/2017 Inactive 10/07/2017 5:36:15 PM 10/07/2017 5:36:13 PM N O T I C E Last quantity doesn't match original quantity cranberry extract 500 mg tablet RxNorm: 5884355 1 Tablet(s) PO QAM 10/04/2017 01/31/2018 Inactive Cipro 500 mg tablet RxNorm: 059473 1 Tablet(s) PO BID 10/04/2017 10/03/2017 Inactive dc keflex hydrocodone 10 mg-acetaminophen 325 mg tablet RxNorm: 548194 2 Tablet(s) PO scheduled TID as needed 10/04/2017 10/21/2017 Inactive Not to exceed 3gm/24hr acetaminophen cranberry extract 500 mg tablet RxNorm: 0676595 1 Tablet(s) PO QAM 10/04/2017 10/03/2017 Inactive Cipro 500 mg tablet RxNorm: 813825 1 Tablet(s) PO BID 10/04/2017 10/10/2017 Inactive dc keflex Duragesic 75 mcg/hr transdermal patch RxNorm: 213912 1 Patch TD Q72H 09/20/2017 10/19/2017 Inactive fentanyl 100 mcg/hr transdermal patch RxNorm: 206263 1 Patch TD Q72H 09/20/2017 10/19/2017 Inactive hyoscyamine 0.125 mg disintegrating tablet RxNorm: 7897266 1 Tablet(s) PO TID and 1 Tablet Q4H prn increased secretions 09/15/2017 11/02/2017 Inactive hydrocodone 10 mg-acetaminophen 325 mg tablet RxNorm: 363696 2 Tablet(s) PO scheduled TID and 1-2 Tabs Q4H PRN pain 09/15/2017 10/03/2017 Inactive Not to exceed 3gm/24hr acetaminophen lorazepam 0.5 mg tablet RxNorm: 192977 1 Tablet(s) PO BID 09/15/2017 10/17/2017 Inactive Lexapro 10 mg tablet RxNorm: 242396 1 Tablet(s) PO daily 09/10/2017 09/14/2017 Inactive Levemir FlexTouch U-100 Insulin 100 unit/mL (3 mL) subcutaneous pen RxNorm: 627245 10 Unit(s) daily 09/09/2017 09/15/2017 Inactive lisinopril 10 mg tablet RxNorm: 954465 1 Tablet(s) PO daily 09/09/2017 05/16/2018 Inactive Duragesic 75 mcg/hr transdermal patch RxNorm: 630316 1 Patch TD Q72H 09/09/2017 09/19/2017 Inactive nystatin 100,000 unit/gram topical cream RxNorm: 607232 1 Gram(s) TOP TID until healed to gaulding 09/06/2017 01/03/2018 Inactive nystatin 100,000 unit/gram topical cream RxNorm: 916891 1 Gram(s) TOP TID until healed to gaulding 09/06/2017 09/05/2017 Inactive hydrocodone 10 mg-acetaminophen 325 mg tablet RxNorm: 740200 2 Tablet(s) PO scheduled TID as needed 08/31/2017 09/14/2017 Inactive Not to exceed 3gm/24hr acetaminophen fentanyl 100 mcg/hr transdermal patch RxNorm: 910483 1 Patch TD Q72H 08/24/2017 09/19/2017 Inactive fentanyl 50 mcg/hr transdermal patch RxNorm: 733650 1 Patch TD Q72H 08/24/2017 09/08/2017 Inactive fentanyl 25 mcg/hr transdermal patch RxNorm: 287733 1 Patch TD Q72H 08/24/2017 08/24/2017 Inactive hyoscyamine 0.125 mg disintegrating tablet RxNorm: 9794104 Tablet(s) 1-2 Tablet(s) PO Q8 as needed 08/23/2017 09/14/2017 Inactive hydrocodone 10 mg-acetaminophen 325 mg tablet RxNorm: 826674 1 Tablet(s) PO scheduled TID et Q6 hours as needed 08/18/2017 08/30/2017 Inactive Not to exceed 3gm/24hr acetaminophen hydrochlorothiazide 25 mg tablet RxNorm: 821236 GIVE 1 TABLET VIA PEG TUBE ONCE DAILY 08/17/2017 02/12/2018 Inactive Generic For:HYDRODIURIL 25 MG TABLET 08/17/2017 9:01:54 AM08/11/2017 10:12:00 AM lorazepam 0.5 mg tablet RxNorm: 804583 1/2 Tablet(s) PO BID 08/03/2017 09/14/2017 Inactive fentanyl 100 mcg/hr transdermal patch RxNorm: 902277 1 Patch TD Q72H 07/26/2017 08/23/2017 Inactive fentanyl 25 mcg/hr transdermal patch RxNorm: 625850 1 Patch TD Q72H 07/26/2017 08/23/2017 Inactive hydrocodone 10 mg-acetaminophen 325 mg tablet RxNorm: 839926 1 Tablet(s) PO scheduled TID et Q6 hours as needed 07/16/2017 08/14/2017 Inactive Not to exceed 3gm/24hr acetaminophen hyoscyamine 0.125 mg disintegrating tablet RxNorm: 0176332 Tablet(s) 1-2 Tablet(s) PO Q8 as needed 07/13/2017 08/01/2017 Inactive baclofen 10 mg tablet RxNorm: 603559 TAKE 1 TABLET THREE TIMES DAILY VIA STOMACH TUBE 07/12/2017 10/06/2017 Inactive 07/12/2017 9:04:08 AM N O T I C E Last quantity doesn't match original quantity lorazepam 0.5 mg tablet RxNorm: 763200 1/2 Tablet(s) PO BID 07/02/2017 08/02/2017 Inactive fentanyl 100 mcg/hr transdermal patch RxNorm: 708303 1 Patch TD Q72H 06/28/2017 07/25/2017 Inactive fentanyl 25 mcg/hr transdermal patch RxNorm: 019263 1 Patch TD Q72H 06/28/2017 07/25/2017 Inactive hyoscyamine 0.125 mg disintegrating tablet RxNorm: 6777692 Tablet(s) 1-2 Tablet(s) PO Q8 as needed 06/03/2017 06/22/2017 Inactive fentanyl 25 mcg/hr transdermal patch RxNorm: 341565 1 Patch TD Q72H 05/26/2017 06/24/2017 Inactive Levemir FlexTouch U-100 Insulin 100 unit/mL (3 mL) subcutaneous pen RxNorm: 422877 20 Unit(s) SQ BID 05/26/2017 09/08/2017 Inactive fentanyl 100 mcg/hr transdermal patch RxNorm: 307630 1 Patch TD Q72H 05/26/2017 06/24/2017 Inactive hydrocodone 10 mg-acetaminophen 325 mg tablet RxNorm: 389072 1 Tablet(s) PO scheduled BID et Q6 hours as needed 05/12/2017 05/11/2017 Inactive hydrocodone 10 mg-acetaminophen 325 mg tablet RxNorm: 542394 1 Tablet(s) PO scheduled TID et Q6 hours as needed 05/12/2017 06/10/2017 Inactive Not to exceed 3gm/24hr acetaminophen docusate sodium 100 mg tablet RxNorm: 3160911 1 Tablet(s) PO BID as needed if no bowel movement 05/10/2017 05/09/2017 Inactive lisinopril 20 mg tablet RxNorm: 534539 1 Tablet(s) PO daily 05/10/2017 09/08/2017 Inactive docusate sodium 100 mg tablet RxNorm: 1966384 1 Tablet(s) PO BID as needed if no bowel movement 05/10/2017 09/14/2017 Inactive fentanyl 25 mcg/hr transdermal patch RxNorm: 348286 1 Patch TD Q72H 05/03/2017 05/25/2017 Inactive lorazepam 0.5 mg tablet RxNorm: 319851 1/2 Tablet(s) PO BID 05/03/2017 07/01/2017 Inactive fentanyl 100 mcg/hr transdermal patch RxNorm: 844369 1 Patch TD Q72H 04/27/2017 05/25/2017 Inactive carvedilol 3.125 mg tablet RxNorm: 239660 Tablet(s) GIVE 1 TABLET VIA PEG TUBE DAILY 04/15/2017 10/21/2017 Inactive Levemir FlexTouch 100 unit/mL (3 mL) subcutaneous insulin pen RxNorm: 963643 10 Unit(s) SQ BID 04/15/2017 2017 Inactive hyoscyamine 0.125 mg disintegrating tablet RxNorm: 8493764 1-2 Tablet(s) PO Q8 as needed 04/14/2017 05/03/2017 Inactive hydrocodone 10 mg-acetaminophen 325 mg tablet RxNorm: 123967 1 Tablet(s) PO scheduled BID et Q6 hours as needed 04/13/2017 05/02/2017 Inactive baclofen 10 mg tablet RxNorm: 872651 TAKE 1 TABLET THREE TIMES DAILY VIA STOMACH TUBE 04/08/2017 05/22/2017 Inactive 04/08/2017 9:32:07 AM fentanyl 25 mcg/hr transdermal patch RxNorm: 896163 1 Patch TD Q72H 04/05/2017 05/02/2017 Inactive lidocaine 10 mg/mL (1 %) injection solution RxNorm: 0457863 1 Milliliter(s) Inj daily Mix with rocephin 03/31/2017 03/30/2017 Inactive Pt resides at [facility] lidocaine 10 mg/mL (1 %) injection solution RxNorm: 9276380 1 Milliliter(s) Inj daily Mix with rocephin 03/31/2017 04/06/2017 Inactive Pt resides at [facility] fentanyl 100 mcg/hr transdermal patch RxNorm: 268026 1 Patch TD Q72H 03/29/2017 04/26/2017 Inactive nystatin 100,000 unit/gram topical powder RxNorm: 004175 APPLY UNDER BREASTS TWICE DAILY FOR YEAST SKIN INFECTION AND APPLY TO UNDERARM AND ABDOMINAL FOLDS AND PERIAREA TWICE DAILY 03/29/2017 03/28/2017 Inactive 03/27/2017 9:12:50 AM nystatin 100,000 unit/gram topical powder RxNorm: 022587 APPLY UNDER BREASTS TWICE DAILY FOR YEAST SKIN INFECTION AND APPLY TO UNDERARM AND ABDOMINAL FOLDS AND PERIAREA TWICE DAILY 03/29/2017 09/14/2017 Inactive 03/29/2017 9:42:55 AM03/27/2017 9:12:50 AM hyoscyamine 0.125 mg disintegrating tablet RxNorm: 1116810 1-2 Tablet(s) PO Q8 as needed 03/08/2017 03/27/2017 Inactive fentanyl 25 mcg/hr transdermal patch RxNorm: 794870 1 Patch TD Q72H 03/02/2017 03/31/2017 Inactive hydrocodone 10 mg-acetaminophen 325 mg tablet RxNorm: 535279 1 Tablet(s) PO scheduled BID et Q6 hours as needed 02/17/2017 03/18/2017 Inactive fentanyl 100 mcg/hr transdermal patch RxNorm: 734422 1 Patch TD Q72H 02/17/2017 03/18/2017 Inactive Lexapro 10 mg tablet RxNorm: 531438 1 Tablet(s) PO daily 02/05/2017 04/14/2017 Inactive Lexapro 10 mg tablet RxNorm: 117435 1 Tablet(s) PO daily 02/05/2017 02/04/2017 Inactive fentanyl 25 mcg/hr transdermal patch RxNorm: 654031 1 Patch TD Q72H 02/04/2017 03/01/2017 Inactive cyanocobalamin (vit B-12) 1,000 mcg tablet RxNorm: 546379 1 Tablet(s) PO daily 01/18/2017 12/13/2017 Inactive hyoscyamine 0.125 mg disintegrating tablet RxNorm: 7019012 Tablet(s) 1-2 Tablet(s) PO Q8 as needed 01/18/2017 02/06/2017 Inactive baclofen 10 mg tablet RxNorm: 019942 TAKE 1 TABLET THREE TIMES DAILY VIA STOMACH TUBE 01/04/2017 02/17/2017 Inactive 01/04/2017 9:25:18 AM fentanyl 100 mcg/hr transdermal patch RxNorm: 802217 1 Patch TD Q72H 12/25/2016 01/23/2017 Inactive hydrochlorothiazide 25 mg tablet RxNorm: 522987 Tablet(s) GIVE 1 TABLET VIA PEG TUBE ONCE A DAY 12/14/2016 07/11/2017 Inactive fentanyl 100 mcg/hr transdermal patch RxNorm: 927230 1 Patch TD Q72H 11/25/2016 12/24/2016 Inactive hyoscyamine 0.125 mg disintegrating tablet RxNorm: 9180854 Tablet(s) 1-2 Tablet(s) PO Q8 as needed 11/25/2016 12/14/2016 Inactive nystatin 100,000 unit/gram topical powder RxNorm: 176835 APPLY UNDER BREASTS TWICE DAILY FOR YEAST SKIN INFECTION AND APPLY TO UNDERARM AND ABDOMINAL FOLDS AND PERIAREA TWICE DAILY 11/24/2016 01/22/2017 Inactive 11/24/2016 9:34:02 AM hydrocodone 10 mg-acetaminophen 325 mg tablet RxNorm: 446225 1 Tablet(s) PO scheduled BID et Q6 hours as needed 11/02/2016 12/01/2016 Inactive cyanocobalamin (vit B-12) 1,000 mcg tablet RxNorm: 326610 1 Tablet(s) PO daily 11/02/2016 01/17/2017 Inactive hyoscyamine 0.125 mg disintegrating tablet RxNorm: 2143635 1-2 Tablet(s) PO Q8 as needed 10/19/2016 11/24/2016 Inactive fentanyl 100 mcg/hr transdermal patch RxNorm: 171550 1 Patch TD Q72H 10/13/2016 11/11/2016 Inactive hydrocodone 10 mg-acetaminophen 325 mg tablet RxNorm: 513869 1 Tablet(s) PO scheduled BID et Q6 hours as needed 10/05/2016 11/01/2016 Inactive baclofen 10 mg tablet RxNorm: 844466 TAKE 1 TABLET THREE TIMES DAILY VIA STOMACH TUBE 10/01/2016 11/14/2016 Inactive 10/01/2016 9:24:37 AM carvedilol 3.125 mg tablet RxNorm: 337903 GIVE 1 TABLET VIA PEG TUBE 2 TIMES A DAY 09/30/2016 12/28/2016 Inactive Generic For:COREG 3.125MG 09/30/2016 1:12:28 PM09/25/2016 9:06:11 AM Probiotic Blend 2 million cell-50 mg capsule RxNorm: 1 Capsule(s) PO BID 09/17/2016 09/23/2016 Inactive Keflex 500 mg capsule RxNorm: 973928 1 Capsule(s) PO TID 09/17/2016 09/23/2016 Inactive hyoscyamine 0.125 mg/5 mL oral elixir RxNorm: 5679990 5 Milliliter(s) PO TID 09/08/2016 09/17/2016 Inactive hyoscyamine 0.125 mg/5 mL oral elixir RxNorm: 2058570 5 Milliliter(s) PO TID 09/08/2016 09/07/2016 Inactive hyoscyamine 0.125 mg disintegrating tablet RxNorm: 4140513 1-2 Tablet(s) PO Q8 as needed 09/07/2016 10/18/2016 Inactive fentanyl 100 mcg/hr transdermal patch RxNorm: 425557 1 Patch TD Q72H 09/01/2016 09/30/2016 Inactive ranitidine 150 mg tablet RxNorm: 879957 1 Tablet(s) PO BID 08/25/2016 No Stop Date Active hydrocodone 10 mg-acetaminophen 325 mg tablet RxNorm: 403027 1 Tablet(s) PO scheduled BID et Q6 hours as needed 08/24/2016 09/22/2016 Inactive cyanocobalamin (vit B-12) 1,000 mcg tablet RxNorm: 071973 1 Tablet(s) PO daily 08/12/2016 11/01/2016 Inactive cyanocobalamin (vit B-12) 1,000 mcg tablet RxNorm: 385348 1 Tablet(s) PO daily 08/12/2016 08/11/2016 Inactive hydrocodone 10 mg-acetaminophen 325 mg tablet RxNorm: 116343 1-2 Tablet(s) PO Q6 as needed 08/03/2016 08/17/2016 Inactive fentanyl 100 mcg/hr transdermal patch RxNorm: 296808 1 Patch TD Q72H 08/03/2016 08/31/2016 Inactive nystatin 100,000 unit/gram topical powder RxNorm: 571829 APPLY UNDER BREASTS TWICE DAILY FOR YEAST SKIN INFECTION AND APPLY TO UNDERARM AND ABDOMINAL FOLDS AND PERIAREA TWICE DAILY 07/17/2016 09/14/2016 Inactive 07/17/2016 3:56:54 PM fentanyl 100 mcg/hr transdermal patch RxNorm: 874702 1 Patch TD Q72H 07/15/2016 08/02/2016 Inactive lisinopril 20 mg tablet RxNorm: 062194 1 Tablet(s) PO daily 07/02/2016 03/28/2017 Inactive hydrocodone 10 mg-acetaminophen 325 mg tablet RxNorm: 777206 1-2 Tablet(s) PO Q6 as needed 07/01/2016 07/15/2016 Inactive Xarelto 20 mg tablet RxNorm: 2837100 Tablet(s) TAKE 1 TABLET VIA PEG TUBE AT BEDTIME 06/19/2016 04/14/2017 Inactive fentanyl 100 mcg/hr transdermal patch RxNorm: 189307 1 Patch TD Q72H 06/17/2016 07/14/2016 Inactive nystatin 100,000 unit/gram topical powder RxNorm: 857876 APPLY TO UNDER BREASTS TWICE DAILY FOR YEAST SKIN INFECTION AND APPLY TO UNDERARM AND ABDOMINAL FOLDS AND PERIAREA TWICE DAILY 06/15/2016 07/16/2016 Inactive Generic For:MYCOSTATIN 100,000 UNITS/GM PW 06/15/2016 12:28:26 PM fentanyl 100 mcg/hr transdermal patch RxNorm: 480238 1 Patch TD Q72H 06/05/2016 06/16/2016 Inactive hydrocodone 10 mg-acetaminophen 325 mg tablet RxNorm: 449297 1-2 Tablet(s) PO Q6 as needed 06/02/2016 06/16/2016 Inactive Probiotic Blend 2 million cell-50 mg capsule RxNorm: 1 Capsule(s) PO BID 05/13/2016 05/19/2016 Inactive nitrofurantoin 100 mg capsule RxNorm: 975294 1 Capsule(s) PO BID 05/13/2016 05/19/2016 Inactive nitrofurantoin 100 mg capsule RxNorm: 527490 1 Capsule(s) PO BID 05/13/2016 05/12/2016 Inactive fentanyl 75 mcg/hr transdermal patch RxNorm: 139282 1 Patch TD Q72H 05/13/2016 06/04/2016 Inactive Keflex 500 mg capsule RxNorm: 191408 1 Capsule(s) PO TID 05/07/2016 05/13/2016 Inactive Patient at [facility] Keflex 500 mg capsule RxNorm: 538788 1 Capsule(s) PO TID 05/07/2016 05/06/2016 Inactive hydrocodone 10 mg-acetaminophen 325 mg tablet RxNorm: 570026 1-2 Tablet(s) PO Q6 as needed 05/04/2016 06/01/2016 Inactive hydrochlorothiazide 25 mg tablet RxNorm: 419637 Tablet(s) GIVE 1 TABLET VIA PEG TUBE ONCE A DAY 04/29/2016 11/24/2016 Inactive hydrochlorothiazide 25 mg tablet RxNorm: 298972 GIVE 1 TABLET VIA PEG TUBE ONCE A DAY 04/22/2016 04/28/2016 Inactive Generic For:HYDRODIURIL 25 MG TABLET refill request fentanyl 75 mcg/hr transdermal patch RxNorm: 864762 1 Patch TD Q72H 04/17/2016 05/12/2016 Inactive Xarelto 20 mg tablet RxNorm: 0938265 TAKE 1 TABLET VIA PEG TUBE AT BEDTIME 04/16/2016 06/14/2016 Inactive 04/16/2016 9:08:52 AM citalopram 40 mg tablet RxNorm: 995299 1 Tablet(s) PO daily 04/02/2016 02/25/2017 Inactive citalopram 40 mg tablet RxNorm: 461085 1 Tablet(s) PO daily 03/27/2016 04/01/2016 Inactive hydrocodone 10 mg-acetaminophen 325 mg tablet RxNorm: 149047 1-2 Tablet(s) PO Q6 as needed 03/27/2016 04/25/2016 Inactive fentanyl 75 mcg/hr transdermal patch RxNorm: 276538 1 Patch TD Q72H 03/18/2016 04/16/2016 Inactive hydrocodone 10 mg-acetaminophen 325 mg tablet RxNorm: 696770 1-2 Tablet(s) PO Q6 as needed 03/11/2016 03/26/2016 Inactive citalopram 40 mg tablet RxNorm: 617183 1 Tablet(s) PO daily 03/04/2016 03/26/2016 Inactive Levemir FlexTouch U-100 Insulin 100 unit/mL (3 mL) subcutaneous pen RxNorm: 254382 20 Unit(s) SQ BID 03/02/2016 09/27/2016 Inactive lisinopril 20 mg tablet RxNorm: 962727 1 Tablet(s) PO daily 02/25/2016 07/01/2016 Inactive Ativan 0.5 mg tablet RxNorm: 228730 1 Tablet(s) PO Q4H as needed 02/18/2016 04/14/2017 Inactive Xarelto 20 mg tablet RxNorm: 1291773 TAKE 1 TABLET VIA PEG TUBE AT BEDTIME 02/12/2016 04/11/2016 Inactive 02/12/2016 9:08:22 AM hydrocodone 10 mg-acetaminophen 325 mg tablet RxNorm: 546838 1-2 Tablet(s) PO Q6 as needed 02/12/2016 03/10/2016 Inactive fentanyl 75 mcg/hr transdermal patch RxNorm: 941562 1 Patch TD Q72H 02/11/2016 03/11/2016 Inactive citalopram 20 mg tablet RxNorm: 717012 1 Tablet(s) PO daily 01/28/2016 03/03/2016 Inactive fentanyl 75 mcg/hr transdermal patch RxNorm: 149398 1 TD Q72H 01/17/2016 02/10/2016 Inactive hydrocodone 10 mg-acetaminophen 325 mg tablet RxNorm: 525601 1-2 Tablet(s) PO Q6 as needed 01/07/2016 02/05/2016 Inactive fentanyl 50 mcg/hr transdermal patch RxNorm: 191026 1 TD Q72H 01/01/2016 01/16/2016 Inactive fentanyl 50 mcg/hr transdermal patch RxNorm: 488888 1 TD q 3 days 12/26/2015 12/31/2015 Inactive Xarelto 20 mg tablet RxNorm: 4519896 TAKE 1 TABLET VIA PEG TUBE AT BEDTIME 12/17/2015 02/11/2016 Inactive 12/16/2015 3:27:57 PM12/14/2015 9:45:17 AM hydrocodone 10 mg-acetaminophen 325 mg tablet RxNorm: 702834 1-2 Tablet(s) PO Q6 as needed 12/06/2015 01/04/2016 Inactive fentanyl 50 mcg/hr transdermal patch RxNorm: 570135 1 TD q 3 days 12/06/2015 12/25/2015 Inactive fentanyl 25 mcg/hr transdermal patch RxNorm: 331768 1 TD q 3 days 11/18/2015 12/05/2015 Inactive Zithromax Z-Eliu 250 mg tablet RxNorm: 640220 1 Tablet(s) PO UD 10/09/2015 02/26/2016 Inactive z pack as directed- please write out instructions- pt at F nystatin 100,000 unit/gram topical powder RxNorm: 732996 APPLY TO UNDER BREASTS TWICE DAILY FOR YEAST SKIN INFECTION AND APPLY TO UNDERARM AND ABDOMINAL FOLDS AND PERIAREA TWICE DAILY 10/07/2015 12/05/2015 Inactive Generic For:MYCOSTATIN 100,000 UNITS/GM PW 10/05/2015 12:07:35 PM fentanyl 25 mcg/hr transdermal patch RxNorm: 732776 1 TD q 3 days 10/03/2015 11/01/2015 Inactive fentanyl 25 mcg/hr transdermal patch RxNorm: 209614 1 TD q 3 days 09/27/2015 10/02/2015 Inactive fentanyl 25 mcg/hr transdermal patch RxNorm: 555595 1 TD q 3 days 09/17/2015 09/26/2015 Inactive fentanyl 25 mcg/hr transdermal patch RxNorm: 993931 1 TD q 3 days 08/30/2015 09/16/2015 Inactive hydrocodone 5 mg-acetaminophen 325 mg tablet RxNorm: 809557 1 Tablet(s) PO Q6 as needed 08/30/2015 09/28/2015 Inactive Diflucan 100 mg tablet RxNorm: 649546 1 Tablet(s) Miscellaneous per peg daily 07/29/2015 08/04/2015 Inactive fentanyl 25 mcg/hr transdermal patch RxNorm: 869745 1 TD q 3 days 07/18/2015 08/29/2015 Inactive hydrocodone 5 mg-acetaminophen 325 mg tablet RxNorm: 864046 1 Tablet(s) PO Q6 as needed 07/18/2015 08/29/2015 Inactive Diflucan 100 mg tablet RxNorm: 136847 1 Tablet(s) Miscellaneous per peg daily 06/17/2015 06/23/2015 Inactive Senna-S 8.6 mg-50 mg tablet RxNorm: 246314 1 Tablet(s) PO daily as needed constipation No Start Date Active Dulcolax (bisacodyl) 10 mg rectal suppository RxNorm: 923752 1 Suppository RTL daily as needed constipation No Start Date Active polyethylene glycol 3350 17 gram/dose oral powder RxNorm: 092285 17 Gram(s) PO daily as needed constipation No Start Date Active baclofen 10 mg tablet RxNorm: 784103 1 Tablet(s) PO TID No Start Date 09/30/2016 Inactive Ativan 0.5 mg tablet RxNorm: 802752 1 Tablet(s) PO Q4H as needed No Start Date 02/17/2016 Inactive ranitidine 150 mg tablet RxNorm: 048492 1 Tablet(s) PO daily No Start Date 08/24/2016 Inactive carvedilol 3.125 mg tablet RxNorm: 024683 1 Tablet(s) PO daily No Start Date 09/29/2016 Inactive citalopram 40 mg tablet RxNorm: 720079 1 Tablet(s) PO daily No Start Date 01/27/2016 Inactive Probiotic Blend oral RxNorm: oral No Start Date 05/12/2016 Inactive hydrochlorothiazide 25 mg tablet RxNorm: 535960 1 Tablet(s) PO daily No Start Date 04/21/2016 Inactive albuterol sulfate concentrate 5 mg/mL(0.5 %) solution for nebulization RxNorm: 782171 1 Vial INH daily as needed congestion No Start Date 03/17/2018 Inactive Levemir FlexTouch 100 unit/mL (3 mL) subcutaneous insulin pen RxNorm: 312010 10 Unit(s) SQ BID No Start Date 03/01/2016 Inactive Zithromax Z-Eliu 250 mg tablet RxNorm: 935073 1 Tablet(s) PO UD No Start Date 10/08/2015 Inactive z pack as directed- please write out instructions- pt at [facility] nystatin 100,000 unit/gram topical powder RxNorm: 901672 Gram(s) TOP BID as needed No Start Date 10/06/2015 Inactive pravastatin 40 mg tablet RxNorm: 023729 Tablet(s) PO daily No Start Date 04/14/2017 Inactive lorazepam 0.5 mg tablet RxNorm: 364721 1/2 Tablet(s) PO BID No Start Date 05/02/2017 Inactive Xarelto 20 mg tablet RxNorm: 2844419 1 Tablet(s) PO daily No Start Date 12/16/2015 Inactive fentanyl 25 mcg/hr transdermal patch RxNorm: 607392 1 TD q 3 days No Start Date 07/17/2015 Inactive lisinopril 20 mg tablet RxNorm: 397797 1 Tablet(s) PO daily No Start Date 02/24/2016 Inactive hydrocodone 5 mg-acetaminophen 325 mg tablet RxNorm: 497486 1 Tablet(s) PO Q6 as needed No Start Date 07/17/2015 Inactive citalopram 40 mg tablet RxNorm: 882607 1 Tablet(s) PO daily No Start Date 03/03/2016 Inactive hyoscyamine 0.125 mg disintegrating tablet RxNorm: 4556514 1-2 Tablet(s) PO Q8 as needed No [...] Code Item Item Code Result Date %Hba1C Lji019 % HbA1c 47402- 6 5.5 % 05/18/2018 %Hba1C Jqz701 Gluc Ave 111 mg/dL 05/18/2018 Cbc With [...] 32.3 pg 05/18/2018 Cbc With Differential Ord2 [place]% 4.9 % 05/18/2018 Cbc With Differential Ord2 [...] 1.81 K/ul 05/18/2018 Cbc With Differential Ord2 [place] ABS# 0.4 K/ul 05/18/2018 Cbc With Differential Ord2 Eos ABS# 0.6 K/ul 05/18/2018 Cbc With Differential Ord2 Baso ABS# 0.0 K/ul 05/18/2018 Tsh Ord6 TSH (3rd IS) 0.85 uIU/mL 05/18/2018 Comp Metabolic Tse343 NA 137 mEq/L 05/18/2018 Comp Metabolic Sfl611 K 4.2 mEq/L 05/18/2018 Comp Metabolic Wjp984 CL 97 mEq/L 05/18/2018 Comp Metabolic Xgp125 CO2 34.0 mEq/L 05/18/2018 Comp Metabolic Dhr545 ANION GAP 10 05/18/2018 Comp Metabolic Vgq655 GLUCOSE 177 mg/dL 05/18/2018 Comp Metabolic Lah943 Creat 0.5 mg/dL 05/18/2018 Comp Metabolic Bfs994 eGFR 122 ml/min/1.73m2 05/18/2018 Comp Metabolic Dct837 BUN 23 mg/dL 05/18/2018 Comp Metabolic Qie248 B/C Ratio 43.4 Ratio 05/18/2018 Comp Metabolic Rzv917 CALCIUM 9.2 mg/dL 05/18/2018 Comp Metabolic Mvb154 ALK PHOS 86 U/L 05/18/2018 Comp Metabolic Wpg553 AST(SGOT) 14 U/L 05/18/2018 Comp Metabolic Wgp328 ALT(SGPT) 9 U/L 05/18/2018 Comp Metabolic Eho614 BILI T 0.3 mg/dL 05/18/2018 Comp Metabolic Mjl517 ALBUMIN 3.7 g/dL 05/18/2018 Comp Metabolic Ovx755 TPRO 6.2 g/dL 05/18/2018 Comp Metabolic Jex976 GLOB 2.6 g/dL 05/18/2018 Comp Metabolic Cgc691 A/G Ratio 1.4 Ratio 05/18/2018 Comp Metabolic Dcu411 Osmo 282 mOsmo 05/18/2018 A1C Frequency Byo689 A1CF 08705-1 Last A1C performed at [facility] lab on: 02-14-2018 05/10/2018 Cbc [...] 30.7 pg 02/14/2018 Cbc With Differential Ord2 [place]% 7.4 % 02/14/2018 Cbc With Differential Ord2 [...] 2.14 K/ul 02/14/2018 Cbc With Differential Ord2 [place] ABS# 0.5 K/ul 02/14/2018 Cbc With Differential Ord2 Eos ABS# 0.3 K/ul 02/14/2018 Cbc With Differential Ord2 Baso ABS# 0.0 K/ul 02/14/2018 Comp Metabolic Ddk004 NA 142 mEq/L 02/14/2018 Comp Metabolic Ocp542 K 4.5 mEq/L 02/14/2018 Comp Metabolic Rmi902 CL 97 mEq/L 02/14/2018 Comp Metabolic Xrq192 CO2 41.0 mEq/L 02/14/2018 Comp Metabolic Ckd665 ANION GAP 9 02/14/2018 Comp Metabolic Tun408 GLUCOSE 111 mg/dL 02/14/2018 Comp Metabolic Cyk295 Creat 0.6 mg/dL 02/14/2018 Comp Metabolic Xgp819 eGFR 108 ml/min/1.73m2 02/14/2018 Comp Metabolic Jio930 BUN 32 mg/dL 02/14/2018 Comp Metabolic Uua126 B/C Ratio 54.2 Ratio 02/14/2018 Comp Metabolic Tou827 CALCIUM 8.9 mg/dL 02/14/2018 Comp Metabolic Dyb811 ALK PHOS 81 U/L 02/14/2018 Comp Metabolic Ish619 AST(SGOT) 14 U/L 02/14/2018 Comp Metabolic Pxv780 ALT(SGPT) 11 U/L 02/14/2018 Comp Metabolic Bag513 BILI T 0.3 mg/dL 02/14/2018 Comp Metabolic Gap724 ALBUMIN 3.4 g/dL 02/14/2018 Comp Metabolic Vhc206 TPRO 6.3 g/dL 02/14/2018 Comp Metabolic Fjr562 GLOB 2.9 g/dL 02/14/2018 Comp Metabolic Aam290 A/G Ratio 1.2 Ratio 02/14/2018 Comp Metabolic Mld458 Osmo 291 mOsmo 02/14/2018 %Hba1C Eyr809 % HbA1c 29940- 6 5.5 % 02/14/2018 %Hba1C Moj990 Gluc Ave 111 mg/dL 02/14/2018 Prealbumin 666064 PREALBUMIN 27 mg/dL 11/24/2017 %Hba1C Ifh345 % HbA1c 50129- 6 5.5 % 11/04/2017 %Hba1C Nwu162 Gluc Ave 111 mg/dL 11/04/2017 Culture Urine [id number] URINE CULTURE SEE NOTES 10/04/2017 Culture Urine [id number] Continued Results 10/04/2017 Urine Culture Ucult Complete [...] Ord28 U-Com Culture to follow 10/01/2017 B12 Dza548 B12 >1500.00 pg/ml 02/19/2017 Cbc With Differential [...] 31.5 pg 02/02/2017 Cbc With Differential Ord2 [place]% 8.3 % 02/02/2017 Cbc With Differential Ord2 [...] 2.28 K/ul 02/02/2017 Cbc With Differential Ord2 [place] ABS# 0.6 K/ul 02/02/2017 Cbc With Differential Ord2 Eos ABS# 0.4 K/ul 02/02/2017 Cbc With Differential Ord2 Baso ABS# 0.0 K/ul 02/02/2017 %Hba1C Pij476 % HbA1c 95551- 6 5.2 % 02/02/2017 %Hba1C Fuj289 Gluc Ave 103 mg/dL 02/02/2017 Comp Metabolic Hfw354 NA 138 mEq/L 02/02/2017 Comp Metabolic Jyp835 K 4.5 mEq/L 02/02/2017 Comp Metabolic Stg001 CL 98 mEq/L 02/02/2017 Comp Metabolic Kcv873 CO2 37.0 mEq/L 02/02/2017 Comp Metabolic Ecp670 ANION GAP 8 02/02/2017 Comp Metabolic Wqu870 GLUCOSE 94 mg/dL 02/02/2017 Comp Metabolic Okd358 Creat 0.7 mg/dL 02/02/2017 Comp Metabolic Kty823 eGFR 88 ml/min/1.73m2 02/02/2017 Comp Metabolic Sbc081 BUN 36 mg/dL 02/02/2017 Comp Metabolic Uph039 B/C Ratio 50.7 Ratio 02/02/2017 Comp Metabolic Djj201 CALCIUM 9.0 mg/dL 02/02/2017 Comp Metabolic Vbr265 ALK PHOS 78 U/L 02/02/2017 Comp Metabolic Nzd589 AST(SGOT) 22 U/L 02/02/2017 Comp Metabolic Qpr631 ALT(SGPT) 28 U/L 02/02/2017 Comp Metabolic Iqm582 BILI T 0.3 mg/dL 02/02/2017 Comp Metabolic Qsm968 ALBUMIN 3.3 g/dL 02/02/2017 Comp Metabolic Wep221 TPRO 5.9 g/dL 02/02/2017 Comp Metabolic Bvh663 GLOB 2.6 g/dL 02/02/2017 Comp Metabolic Uap835 A/G Ratio 1.3 Ratio 02/02/2017 Comp Metabolic Keu011 Osmo 284 mOsmo 02/02/2017 %Hba1C Wme398 % HbA1c 54978- 6 5.0 % 10/29/2016 %Hba1C Bwg855 Gluc Ave 97 mg/dL 10/29/2016 Culture Urine [id number] URINE CULTURE SEE NOTES 09/21/2016 Culture Urine [id number] Continued Results 09/21/2016 Urine Culture Ucult Complete [...] 32.4 pg 07/30/2016 Cbc With Differential Ord2 [place]% 7.2 % 07/30/2016 Cbc With Differential Ord2 [...] 2.69 K/ul 07/30/2016 Cbc With Differential Ord2 [place] ABS# 0.5 K/ul 07/30/2016 Cbc With Differential Ord2 Eos ABS# 0.5 K/ul 07/30/2016 Cbc With Differential Ord2 Baso ABS# 0.0 K/ul 07/30/2016 Comp Metabolic Uyw149 NA 141 mEq/L 07/30/2016 Comp Metabolic Ifo036 K 4.3 mEq/L 07/30/2016 Comp Metabolic Ivu067 CL 100 mEq/L 07/30/2016 Comp Metabolic Ffw360 CO2 33.0 mEq/L 07/30/2016 Comp Metabolic Crt994 ANION GAP 12 07/30/2016 Comp Metabolic Npb660 GLUCOSE 64 mg/dL 07/30/2016 Comp Metabolic Avq011 Creat 0.5 mg/dL 07/30/2016 Comp Metabolic Fwx339 eGFR 126 ml/min/1.73m2 07/30/2016 Comp Metabolic Whj614 BUN 25 mg/dL 07/30/2016 Comp Metabolic Kmn252 B/C Ratio 48.1 Ratio 07/30/2016 Comp Metabolic Hsn892 CALCIUM 8.9 mg/dL 07/30/2016 Comp Metabolic Xvj761 ALK PHOS 90 U/L 07/30/2016 Comp Metabolic Vcz277 AST(SGOT) 22 U/L 07/30/2016 Comp Metabolic Nye387 ALT(SGPT) 36 U/L 07/30/2016 Comp Metabolic Etw865 BILI T 0.3 mg/dL 07/30/2016 Comp Metabolic Aps705 ALBUMIN 3.4 g/dL 07/30/2016 Comp Metabolic Zim607 TPRO 6.0 g/dL 07/30/2016 Comp Metabolic Kbp945 GLOB 2.7 g/dL 07/30/2016 Comp Metabolic Wfp544 A/G Ratio 1.3 Ratio 07/30/2016 Comp Metabolic Isr528 Osmo 284 mOsmo 07/30/2016 A1C Frequency Tss153 A1CF 38575-4 Last A1C performed at [facility] lab on: 05-12-2016 07/30/2016 %Hba1C Jnn345 % HbA1c 03472- 6 5.2 % 05/12/2016 %Hba1C Dwb801 Gluc Ave 103 mg/dL 05/12/2016 Culture Urine [id number] URINE CULTURE SEE NOTES 05/11/2016 Urine Culture [...] U-Com Culture to follow 05/06/2016 Culture Urine [id number] URINE CULTURE SEE NOTES 03/17/2016 Culture Urine [id number] Continued Results 03/17/2016 Urine Culture Ucult Complete [...] 32.0 pg 02/11/2016 Cbc With Differential Ord2 [place]% 9.1 % 02/11/2016 Cbc With Differential Ord2 [...] 2.59 K/ul 02/11/2016 Cbc With Differential Ord2 [place] ABS# 0.6 K/ul 02/11/2016 Cbc With Differential Ord2 Eos ABS# 0.3 K/ul 02/11/2016 Cbc With Differential Ord2 Baso ABS# 0.0 K/ul 02/11/2016 Comp Metabolic Nyy325 NA 137 mEq/L 02/11/2016 Comp Metabolic Jjz037 K 4.4 mEq/L 02/11/2016 Comp Metabolic Llh195 CL 100 mEq/L 02/11/2016 Comp Metabolic Rzj441 CO2 25.0 mEq/L 02/11/2016 Comp Metabolic Xwn001 ANION GAP 16 02/11/2016 Comp Metabolic Ncq893 GLUCOSE 99 mg/dL 02/11/2016 Comp Metabolic Fnt134 Creat 0.6 mg/dL 02/11/2016 Comp Metabolic Slq682 eGFR 99 ml/min/1.73m2 02/11/2016 Comp Metabolic Guj304 BUN 27 mg/dL 02/11/2016 Comp Metabolic Hly542 B/C Ratio 42.2 Ratio 02/11/2016 Comp Metabolic Jik691 CALCIUM 9.2 mg/dL 02/11/2016 Comp Metabolic Lqt258 ALK PHOS 74 U/L 02/11/2016 Comp Metabolic Yds973 AST(SGOT) 24 U/L 02/11/2016 Comp Metabolic Qhf444 ALT(SGPT) 26 U/L 02/11/2016 Comp Metabolic Pdh994 BILI T 0.5 mg/dL 02/11/2016 Comp Metabolic Ose566 ALBUMIN 3.5 g/dL 02/11/2016 Comp Metabolic Mgf016 TPRO 6.2 g/dL 02/11/2016 Comp Metabolic Nla019 GLOB 2.7 g/dL 02/11/2016 Comp Metabolic Sxb080 A/G Ratio 1.3 Ratio 02/11/2016 Comp Metabolic Jgk350 Osmo 279 mOsmo 02/11/2016 Review of Systems [...] 1: 128/86 Code: 8480-6 BMI: 31.4 Code: 92798-9 Heart Rate 1: 72 bpm Height: 5'1" Weight: 166 lbs 06/17/2015 Blood Pressure 1: 110/78 Code: 8480-6 BMI: 33.3 Code: 92391-8 Heart Rate 1: 74 bpm Height: 5'1" [...] Present Encounters Encounter Performer Location Codes Date ([id number]) 98047 EST. PATIENT, LEVEL IV Diagnosis: Essential (primary) hypertension[ICD10: I10] Diagnosis: Chronic pain syndrome[ICD10: G89.4] Diagnosis: Type 2 diabetes mellitus without complications[ICD10: E11.9] Carlyn Everett MD, [facility] CPT-4: 95517 05/17/2018 ([id number]) 02050 EST. PATIENT, LEVEL IV Diagnosis: Cough[ICD10: R05] Diagnosis: Pneumonia, unspecified organism[ICD10: J18.9] Diagnosis: Pain in right knee[ICD10: M25.561] Carlyn Everett MD, [facility] CPT- 4: 15541 03/18/2018 ([id number]) 04227 EST. PATIENT, LEVEL IV Diagnosis: Type 2 diabetes mellitus without complications[ICD10: E11.9] Diagnosis: Essential (primary) hypertension[ICD10: I10] Diagnosis: Chronic pain syndrome[ICD10: G89.4] Carlyn Eveertt MD, [facility] CPT-4: 29051 01/07/2018 ([id number]) 26471 EST. PATIENT, LEVEL IV Diagnosis: Essential (primary) hypertension[ICD10: I10] Diagnosis: Type 2 diabetes mellitus without complications[ICD10: E11.9] Carlyn Everett MD, [facility] CPT-4: 00748 2017 ([id number]) 74874 EST. PATIENT, LEVEL IV Diagnosis: Type 2 diabetes mellitus with hyperglycemia[ICD10: E11.65] Diagnosis: Essential (primary) hypertension[ICD10: I10] Diagnosis: Pain in left shoulder[ICD10: M25.512] Diagnosis: Pain in right shoulder[ICD10: M25.511] Diagnosis: Pain in left knee[ICD10: M25.562] Diagnosis: Pain in right knee[ICD10: M25.561] Vonda Everett MD, [facility] CPT- 4: 16442 09/09/2017 [id number] EST. PATIENT, LEVEL IV Diagnosis: Essential (primary) hypertension[ICD10: I10] Diagnosis: Type 2 diabetes mellitus with hyperglycemia[ICD10: E11.65] Diagnosis: Low back pain[ICD10: M54.5] Sunitha Everett MD, [facility] CPT-4: 38475 06/08/2017 ([id number]) 76938 EST. PATIENT, LEVEL IV Diagnosis: Essential (primary) hypertension[ICD10: I10] Diagnosis: Type 2 diabetes mellitus with hyperglycemia[ICD10: E11.65] Diagnosis: Low back pain[ICD10: M54.5] Sunitha Everett MD, [facility] CPT-4: 84991 04/15/2017 ([id number]) 62342 EST. PATIENT, LEVEL IV Diagnosis: Essential (primary) hypertension[ICD10: I10] Diagnosis: Type 2 diabetes mellitus with hyperglycemia[ICD10: E11.65] Diagnosis: Low back pain[ICD10: M54.5] Vonda Everett MD, [facility] CPT-4: 74547 02/16/2017 [id number] EST. 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 05/17/2018 Appointment: Carlyn Higginbotham WPtel: [phone] (15 min) Moderate 05/17/2018 Patient Education: Patient Medication Summary Completed 05/17/2018 Patient Education: Hypertension Completed 05/17/2018 Patient Education: Diabetes Completed 05/17/2018 Appointment: Carlyn Higginbotham WPtel: [phone] (15 min) Moderate 04/07/2018 Visit Plan: Pneumonia - Pt has been diagnosed with pneumonia by physical exam. A chest xray has been ordered as have antibiotics. The pt is aware of the diagnosis and the need for acute treatment of this illness. Right knee pain -xray knee-rx for voltaren gel 03/18/2018 Appointment: Carlyn Higginbotham WPtel: [phone] [phone] [place] (30 min) Complex 03/18/2018 Patient Education: Patient Medication Summary Completed 03/18/2018 Appointment: Carlyn Higginbotham WPtel: [phone] [phone] [place] (30 min) Complex 03/17/2018 Appointment: Carlyn Higginbotham WPtel: [phone] [place] (15 min) Moderate 03/10/2018 Appointment: Carlyn Higginbotham WPtel: [phone] [place] [address] [place] (15 min) Moderate 02/08/2018 Visit Plan: DM -decrease levemir to 4 units daily -monitor blood sugars EVJ-naqntqqxzj-fv changes Chronic pain -well controlled with fentanyl patch -no changes at this time 01/07/2018 Appointment: Carlyn Higginbotham WPtel: [phone] [phone] [place] (15 min) Moderate 01/07/2018 [...] AT HS 2017 Appointment: Carlyn Higginbotham WPtel: [phone] [phone] [place] (15 min) Moderate 2017 [...] 175mcg. 09/09/2017 Appointment: Vonda Everett WPtel: [phone] [facility] [place] (15 min) Moderate 09/09/2017 [...] and PRN pain medications - will have retirement fax over PRN medication administration record. 06/08/2017 Appointment: Sunitha Patel WPtel: [phone] [facility] [place] (30 min) Complex 06/08/2017 Patient Education: [...] of over-medication. 04/15/2017 Appointment: Sunitha Patel WPtel: [address] [place], [place] [address] (30 min) [facility] 04/15/2017 Patient Education: Patient Medication Summary [...] 02/16/2017 [phone] ([facility] min) Moderate 02/16/2017 Patient Education: [...] concerns. 11/09/2016 Appointment: [phone] [facility] ([facility] min) Complex 11/09/2016 Patient Education: Patient Medication Summary Completed 11/09/2016 Care Plan: Referral Order SNOMED-CT : [id number] Pending 11/09/2016 Patient Education: Patient Medication Summary [...] Follow up weight in 1 month Neck fyza-nespnetgibo-Kfle PT focus neck/upper body Right earache-cerumen removed with water pick today in the office 07/18/2015 Appointment: (30 min) Complex 07/18/2015 Patient Education: Patient Medication Summary Completed 07/18/2015 Patient Education: Obesity Completed 07/18/2015 Patient Education: .Cervicalgia Neck Pain Completed 07/18/2015 Referral: [facility] WPtel: [phone] Referral Completed 06/25/2015 Visit Plan: Hypertension [...] labs this week, get report from and [facility]. I spent over an hour with the patient in direct contact. 06/17/2015 Appointment: Vonda Everett WPtel: [phone] New Patient 06/17/2015 Patient Education: Patient Medication Summary Completed 06/17/2015 Patient Education: Obesity Completed 06/17/2015 Patient Education: Hypertension Completed 06/17/2015 Care Plan: Referral Order SNOMED-CT : [id number] Ordered 06/17/2015 Referral: Jorge Luis Carroll Referral Initiated Referral: [facility] WPtel: [phone] Referral Appointment Requested Instructions Comment . [...] normal liver response to medications. 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 I spent over an [...] and PRN pain medications - will have retirement fax over PRN medication administration record. . [...] to 4 units daily -monitor blood sugars LIQ-noapvblyqm-xr changes Chronic pain -well controlled with fentanyl [...] Follow up weight in 1 month Neck azpf-kjcuwpkxran-Cuzn PT focus neck/upper body Right earache-cerumen removed with water pick today in the office
--- OUTSIDE RECORDS SUMMARY | 2018-08-09 11:27 | XMS REPORT | CCD ---
Author Author Vonda Everett Organization Vonda Everett MD, [facility] Address [address] [place] [address] Phone Care Team Providers Care [employer] Developer Name Role Phone PP Unavailable CCM Unavailable Summary Purpose Interface Exchange Insurance Providers Payer name Policy type / Coverage type Covered libertarian ID Effective Begin Date Effective End Date WPS Medicare Part B Medicare Part B [id number] Unknown Unknown [place] [employer] Insurance Medicare Part B [id number] Unknown Unknown Family history Father Diagnosis Age At Onset Arthritis Unknown Hypertension Unknown Mother Diagnosis Age At Onset Diabetes mellitus Type 2 Unknown Depression Unknown Arthritis Unknown Stroke Unknown Hypertension Unknown Sister Diagnosis Age At Onset Colon cancer Unknown Social History Social History Element Codes Description Effective Dates Marital status Unknown Maurice 01/07/2018 Living arrangements Unknown Shelter [facility] 04/15/2017 Number of children Unknown 3 06/17/2015 Employment Unknown Retired 06/17/[address]: 8059468 Quit over 10 years ago 15+ 06/17/[address]: 075633734 Never drinks alcohol 06/17/2015 Allergies, Adverse Reactions, [...] Date Stop Date Status Fill Instructions citalopram 20 mg tablet RxNorm: 614375 1 Tablet(s) PO daily 05/17/2018 04/11/2019 Active hydrocodone 10 mg-acetaminophen 325 mg tablet RxNorm: 355690 2 Tablet(s) PO scheduled TID 04/19/2018 05/18/2018 Inactive Not to exceed 3gm/24hr acetaminophen lorazepam 0.5 mg tablet RxNorm: 056212 1 Tablet(s) PO BID and 1 tab q 6 hours prn 04/07/2018 No Stop Date Active hyoscyamine 0.125 mg disintegrating tablet RxNorm: 8410628 Tablet(s) 1-2 Tablet(s) PO Q8 as needed 03/31/2018 No Stop Date Active Duragesic 75 mcg/hr transdermal patch RxNorm: 237592 1 Patch TD Q72H 03/31/2018 04/29/2018 Inactive fentanyl 100 mcg/hr transdermal patch RxNorm: 591756 1 Patch TD Q72H 03/31/2018 04/29/2018 Inactive carvedilol 3.125 mg tablet RxNorm: 868053 Tablet(s) GIVE 1 TABLET VIA PEG TUBE 2 TIMES A DAY 03/30/2018 06/27/2018 Active Generic For:COREG 3.125MG 10/22/2017 9:23:30 AM Voltaren 1 % topical gel RxNorm: 378480 APPLY 4 GRAMS TO RIGHT KNEE FOUR TIMES DAILY 03/30/2018 04/22/2018 Inactive Generic For:VOLTAREN GEL 1% 03/30/2018 11:14:57 AM hydrocodone 10 mg-acetaminophen 325 mg tablet RxNorm: 427646 2 Tablet(s) PO scheduled TID 03/23/2018 04/18/2018 Inactive Not to exceed 3gm/24hr acetaminophen albuterol sulfate concentrate 5 mg/mL(0.5 %) solution for nebulization RxNorm: 504226 1 Vial Milliliter(s) INH TID PRN as needed congestion 03/18/2018 No Stop Date Active cefdinir 300 mg capsule RxNorm: 564643 1 Capsule(s) PO BID 03/18/2018 03/24/2018 Inactive Zithromax Z-Eliu 250 mg tablet RxNorm: 985569 Tablet(s) PO 03/18/2018 05/16/2018 Inactive Voltaren 1 % topical gel RxNorm: 356875 4 Gram(s) TOP QID 03/18/2018 03/29/2018 Inactive hydrochlorothiazide 25 mg tablet RxNorm: 489280 GIVE 1 TABLET VIA PEG TUBE ONCE DAILY 03/11/2018 09/06/2018 Active Generic For:HYDRODIURIL 25 MG TABLET 03/11/2018 9:15:32 AM fentanyl 100 mcg/hr transdermal patch RxNorm: 760081 1 Patch TD Q72H 03/02/2018 03/30/2018 Inactive Duragesic 75 mcg/hr transdermal patch RxNorm: 692266 1 Patch TD Q72H 03/02/2018 03/30/2018 Inactive hydrocodone 10 mg-acetaminophen 325 mg tablet RxNorm: 048163 2 Tablet(s) PO scheduled TID 02/18/2018 03/22/2018 Inactive Not to exceed 3gm/24hr acetaminophen hyoscyamine 0.125 mg disintegrating tablet RxNorm: 6926164 Tablet(s) 1-2 Tablet(s) PO Q8 as needed 02/08/2018 03/30/2018 Inactive fentanyl 100 mcg/hr transdermal patch RxNorm: 670473 1 Patch TD Q72H 02/04/2018 03/01/2018 Inactive hydrocodone 10 mg-acetaminophen 325 mg tablet RxNorm: 666236 2 Tablet(s) PO scheduled TID 02/04/2018 02/17/2018 Inactive Not to exceed 3gm/24hr acetaminophen Duragesic 75 mcg/hr transdermal patch RxNorm: 836767 1 Patch TD Q72H 02/04/2018 03/01/2018 Inactive Levemir FlexTouch U-100 Insulin 100 unit/mL (3 mL) subcutaneous pen RxNorm: 986949 4 Unit(s) SQ QHS 01/07/2018 No Stop Date Active Duragesic 75 mcg/hr transdermal patch RxNorm: 045937 1 Patch TD Q72H 01/07/2018 02/03/2018 Inactive fentanyl 100 mcg/hr transdermal patch RxNorm: 664814 1 Patch TD Q72H 01/07/2018 02/03/2018 Inactive hydrocodone 10 mg-acetaminophen 325 mg tablet RxNorm: 252322 2 Tablet(s) PO scheduled TID 01/05/2018 02/03/2018 Inactive Not to exceed 3gm/24hr acetaminophen hydrocodone 10 mg-acetaminophen 325 mg tablet RxNorm: 341855 2 Tablet(s) PO scheduled TID and 1 tab q 4 as needed 01/04/2018 01/04/2018 Inactive Not to exceed 3gm/24hr acetaminophen cyanocobalamin (vit B-12) 1,000 mcg tablet RxNorm: 160980 1 Tablet(s) PO daily 12/28/2017 11/22/2018 Active baclofen 10 mg tablet RxNorm: 567435 Tablet(s) TAKE 1 TABLET THREE TIMES DAILY VIA STOMACH TUBE 12/27/2017 05/25/2018 Active 10/07/2017 5:36:15 PM 10/07/2017 5:36:13 PM N O T I C E Last quantity doesn't match original quantity Duragesic 75 mcg/hr transdermal patch RxNorm: 829613 1 Patch TD Q72H 12/22/2017 01/06/2018 Inactive fentanyl 100 mcg/hr transdermal patch RxNorm: 386155 1 Patch TD Q72H 12/22/2017 01/06/2018 Inactive hydrocodone 10 mg-acetaminophen 325 mg tablet RxNorm: 143828 2 Tablet(s) PO scheduled TID and 1 tab q 4 as needed 12/20/2017 01/03/2018 Inactive Not to exceed 3gm/24hr acetaminophen hyoscyamine 0.125 mg disintegrating tablet RxNorm: 3623807 1-2 Tablet(s) PO Q8 as needed 12/14/2017 02/07/2018 Inactive Duragesic 75 mcg/hr transdermal patch RxNorm: 599700 1 Patch TD Q72H 12/06/2017 12/21/2017 Inactive fentanyl 100 mcg/hr transdermal patch RxNorm: 323564 1 Patch TD Q72H 12/06/2017 12/21/2017 Inactive hydrocodone 10 mg-acetaminophen 325 mg tablet RxNorm: 007232 2 Tablet(s) PO scheduled TID and 1 tab q 4 as needed 11/29/2017 12/19/2017 Inactive Not to exceed 3gm/24hr acetaminophen Duragesic 75 mcg/hr transdermal patch RxNorm: 001296 1 Patch TD Q72H 11/11/2017 12/05/2017 Inactive hydrocodone 10 mg-acetaminophen 325 mg tablet RxNorm: 930655 2 Tablet(s) PO scheduled TID and 1 tab q 4 as needed 11/09/2017 11/28/2017 Inactive Not to exceed 3gm/24hr acetaminophen Levemir FlexTouch U-100 Insulin 100 unit/mL (3 mL) subcutaneous pen RxNorm: 129243 8 Unit(s) SQ QHS 11/09/2017 01/06/2018 Inactive fentanyl 100 mcg/hr transdermal patch RxNorm: 440982 1 Patch TD Q72H 2017 12/05/2017 Inactive hyoscyamine 0.125 mg disintegrating tablet RxNorm: 1349941 1-2 Tablet(s) PO Q8 as needed 11/03/2017 12/13/2017 Inactive carvedilol 3.125 mg tablet RxNorm: 752148 GIVE 1 TABLET VIA PEG TUBE 2 TIMES A DAY 10/22/2017 01/19/2018 Inactive Generic For:COREG 3.125MG 10/22/2017 9:23:30 AM hydrocodone 10 mg-acetaminophen 325 mg tablet RxNorm: 178212 2 Tablet(s) PO scheduled TID and 1 tab q 4 as needed 10/22/2017 2017 Inactive Not to exceed 3gm/24hr acetaminophen fentanyl 100 mcg/hr transdermal patch RxNorm: 849323 1 Patch TD Q72H 10/20/2017 11/07/2017 Inactive Duragesic 75 mcg/hr transdermal patch RxNorm: 563515 1 Patch TD Q72H 10/20/2017 11/10/2017 Inactive lorazepam 0.5 mg tablet RxNorm: 862539 1 Tablet(s) PO BID and 1 tab q 6 hours prn 10/18/2017 No Stop Date Active baclofen 10 mg tablet RxNorm: 396544 TAKE 1 TABLET THREE TIMES DAILY VIA STOMACH TUBE 10/07/2017 12/26/2017 Inactive 10/07/2017 5:36:15 PM 10/07/2017 5:36:13 PM N O T I C E Last quantity doesn't match original quantity cranberry extract 500 mg tablet RxNorm: 9313707 1 Tablet(s) PO QAM 10/04/2017 01/31/2018 Inactive Cipro 500 mg tablet RxNorm: 209153 1 Tablet(s) PO BID 10/04/2017 10/03/2017 Inactive dc keflex hydrocodone 10 mg-acetaminophen 325 mg tablet RxNorm: 442683 2 Tablet(s) PO scheduled TID as needed 10/04/2017 10/21/2017 Inactive Not to exceed 3gm/24hr acetaminophen cranberry extract 500 mg tablet RxNorm: 3390628 1 Tablet(s) PO QAM 10/04/2017 10/03/2017 Inactive Cipro 500 mg tablet RxNorm: 455849 1 Tablet(s) PO BID 10/04/2017 10/10/2017 Inactive dc keflex Duragesic 75 mcg/hr transdermal patch RxNorm: 131207 1 Patch TD Q72H 09/20/2017 10/19/2017 Inactive fentanyl 100 mcg/hr transdermal patch RxNorm: 985810 1 Patch TD Q72H 09/20/2017 10/19/2017 Inactive hyoscyamine 0.125 mg disintegrating tablet RxNorm: 3558265 1 Tablet(s) PO TID and 1 Tablet Q4H prn increased secretions 09/15/2017 11/02/2017 Inactive hydrocodone 10 mg-acetaminophen 325 mg tablet RxNorm: 623841 2 Tablet(s) PO scheduled TID and 1-2 Tabs Q4H PRN pain 09/15/2017 10/03/2017 Inactive Not to exceed 3gm/24hr acetaminophen lorazepam 0.5 mg tablet RxNorm: 091251 1 Tablet(s) PO BID 09/15/2017 10/17/2017 Inactive Lexapro 10 mg tablet RxNorm: 728940 1 Tablet(s) PO daily 09/10/2017 09/14/2017 Inactive Levemir FlexTouch U-100 Insulin 100 unit/mL (3 mL) subcutaneous pen RxNorm: 148892 10 Unit(s) daily 09/09/2017 09/15/2017 Inactive lisinopril 10 mg tablet RxNorm: 547522 1 Tablet(s) PO daily 09/09/2017 05/16/2018 Inactive Duragesic 75 mcg/hr transdermal patch RxNorm: 257551 1 Patch TD Q72H 09/09/2017 09/19/2017 Inactive nystatin 100,000 unit/gram topical cream RxNorm: 013467 1 Gram(s) TOP TID until healed to gaulding 09/06/2017 01/03/2018 Inactive nystatin 100,000 unit/gram topical cream RxNorm: 568681 1 Gram(s) TOP TID until healed to gaulding 09/06/2017 09/05/2017 Inactive hydrocodone 10 mg-acetaminophen 325 mg tablet RxNorm: 387820 2 Tablet(s) PO scheduled TID as needed 08/31/2017 09/14/2017 Inactive Not to exceed 3gm/24hr acetaminophen fentanyl 100 mcg/hr transdermal patch RxNorm: 050812 1 Patch TD Q72H 08/24/2017 09/19/2017 Inactive fentanyl 50 mcg/hr transdermal patch RxNorm: 306998 1 Patch TD Q72H 08/24/2017 09/08/2017 Inactive fentanyl 25 mcg/hr transdermal patch RxNorm: 176841 1 Patch TD Q72H 08/24/2017 08/24/2017 Inactive hyoscyamine 0.125 mg disintegrating tablet RxNorm: 5427664 Tablet(s) 1-2 Tablet(s) PO Q8 as needed 08/23/2017 09/14/2017 Inactive hydrocodone 10 mg-acetaminophen 325 mg tablet RxNorm: 070214 1 Tablet(s) PO scheduled TID et Q6 hours as needed 08/18/2017 08/30/2017 Inactive Not to exceed 3gm/24hr acetaminophen hydrochlorothiazide 25 mg tablet RxNorm: 354597 GIVE 1 TABLET VIA PEG TUBE ONCE DAILY 08/17/2017 02/12/2018 Inactive Generic For:HYDRODIURIL 25 MG TABLET 08/17/2017 9:01:54 AM08/11/2017 10:12:00 AM lorazepam 0.5 mg tablet RxNorm: 732780 1/2 Tablet(s) PO BID 08/03/2017 09/14/2017 Inactive fentanyl 100 mcg/hr transdermal patch RxNorm: 466614 1 Patch TD Q72H 07/26/2017 08/23/2017 Inactive fentanyl 25 mcg/hr transdermal patch RxNorm: 351197 1 Patch TD Q72H 07/26/2017 08/23/2017 Inactive hydrocodone 10 mg-acetaminophen 325 mg tablet RxNorm: 426264 1 Tablet(s) PO scheduled TID et Q6 hours as needed 07/16/2017 08/14/2017 Inactive Not to exceed 3gm/24hr acetaminophen hyoscyamine 0.125 mg disintegrating tablet RxNorm: 1289640 Tablet(s) 1-2 Tablet(s) PO Q8 as needed 07/13/2017 08/01/2017 Inactive baclofen 10 mg tablet RxNorm: 748125 TAKE 1 TABLET THREE TIMES DAILY VIA STOMACH TUBE 07/12/2017 10/06/2017 Inactive 07/12/2017 9:04:08 AM N O T I C E Last quantity doesn't match original quantity lorazepam 0.5 mg tablet RxNorm: 726614 1/2 Tablet(s) PO BID 07/02/2017 08/02/2017 Inactive fentanyl 100 mcg/hr transdermal patch RxNorm: 920729 1 Patch TD Q72H 06/28/2017 07/25/2017 Inactive fentanyl 25 mcg/hr transdermal patch RxNorm: 231813 1 Patch TD Q72H 06/28/2017 07/25/2017 Inactive hyoscyamine 0.125 mg disintegrating tablet RxNorm: 1387477 Tablet(s) 1-2 Tablet(s) PO Q8 as needed 06/03/2017 06/22/2017 Inactive fentanyl 25 mcg/hr transdermal patch RxNorm: 594600 1 Patch TD Q72H 05/26/2017 06/24/2017 Inactive Levemir FlexTouch U-100 Insulin 100 unit/mL (3 mL) subcutaneous pen RxNorm: 439362 20 Unit(s) SQ BID 05/26/2017 09/08/2017 Inactive fentanyl 100 mcg/hr transdermal patch RxNorm: 648215 1 Patch TD Q72H 05/26/2017 06/24/2017 Inactive hydrocodone 10 mg-acetaminophen 325 mg tablet RxNorm: 680601 1 Tablet(s) PO scheduled BID et Q6 hours as needed 05/12/2017 05/11/2017 Inactive hydrocodone 10 mg-acetaminophen 325 mg tablet RxNorm: 982288 1 Tablet(s) PO scheduled TID et Q6 hours as needed 05/12/2017 06/10/2017 Inactive Not to exceed 3gm/24hr acetaminophen docusate sodium 100 mg tablet RxNorm: 4597508 1 Tablet(s) PO BID as needed if no bowel movement 05/10/2017 05/09/2017 Inactive lisinopril 20 mg tablet RxNorm: 001072 1 Tablet(s) PO daily 05/10/2017 09/08/2017 Inactive docusate sodium 100 mg tablet RxNorm: 3224691 1 Tablet(s) PO BID as needed if no bowel movement 05/10/2017 09/14/2017 Inactive fentanyl 25 mcg/hr transdermal patch RxNorm: 902393 1 Patch TD Q72H 05/03/2017 05/25/2017 Inactive lorazepam 0.5 mg tablet RxNorm: 150550 1/2 Tablet(s) PO BID 05/03/2017 07/01/2017 Inactive fentanyl 100 mcg/hr transdermal patch RxNorm: 814366 1 Patch TD Q72H 04/27/2017 05/25/2017 Inactive carvedilol 3.125 mg tablet RxNorm: 411355 Tablet(s) GIVE 1 TABLET VIA PEG TUBE DAILY 04/15/2017 10/21/2017 Inactive Levemir FlexTouch 100 unit/mL (3 mL) subcutaneous insulin pen RxNorm: 400006 10 Unit(s) SQ BID 04/15/2017 2017 Inactive hyoscyamine 0.125 mg disintegrating tablet RxNorm: 5212280 1-2 Tablet(s) PO Q8 as needed 04/14/2017 05/03/2017 Inactive hydrocodone 10 mg-acetaminophen 325 mg tablet RxNorm: 812594 1 Tablet(s) PO scheduled BID et Q6 hours as needed 04/13/2017 05/02/2017 Inactive baclofen 10 mg tablet RxNorm: 604994 TAKE 1 TABLET THREE TIMES DAILY VIA STOMACH TUBE 04/08/2017 05/22/2017 Inactive 04/08/2017 9:32:07 AM fentanyl 25 mcg/hr transdermal patch RxNorm: 026816 1 Patch TD Q72H 04/05/2017 05/02/2017 Inactive lidocaine 10 mg/mL (1 %) injection solution RxNorm: 0748088 1 Milliliter(s) Inj daily Mix with rocephin 03/31/2017 03/30/2017 Inactive Pt resides at [facility] lidocaine 10 mg/mL (1 %) injection solution RxNorm: 7931429 1 Milliliter(s) Inj daily Mix with rocephin 03/31/2017 04/06/2017 Inactive Pt resides at [facility] fentanyl 100 mcg/hr transdermal patch RxNorm: 087330 1 Patch TD Q72H 03/29/2017 04/26/2017 Inactive nystatin 100,000 unit/gram topical powder RxNorm: 293760 APPLY UNDER BREASTS TWICE DAILY FOR YEAST SKIN INFECTION AND APPLY TO UNDERARM AND ABDOMINAL FOLDS AND PERIAREA TWICE DAILY 03/29/2017 03/28/2017 Inactive 03/27/2017 9:12:50 AM nystatin 100,000 unit/gram topical powder RxNorm: 495386 APPLY UNDER BREASTS TWICE DAILY FOR YEAST SKIN INFECTION AND APPLY TO UNDERARM AND ABDOMINAL FOLDS AND PERIAREA TWICE DAILY 03/29/2017 09/14/2017 Inactive 03/29/2017 9:42:55 AM03/27/2017 9:12:50 AM hyoscyamine 0.125 mg disintegrating tablet RxNorm: 9049066 1-2 Tablet(s) PO Q8 as needed 03/08/2017 03/27/2017 Inactive fentanyl 25 mcg/hr transdermal patch RxNorm: 777771 1 Patch TD Q72H 03/02/2017 03/31/2017 Inactive hydrocodone 10 mg-acetaminophen 325 mg tablet RxNorm: 791171 1 Tablet(s) PO scheduled BID et Q6 hours as needed 02/17/2017 03/18/2017 Inactive fentanyl 100 mcg/hr transdermal patch RxNorm: 881249 1 Patch TD Q72H 02/17/2017 03/18/2017 Inactive Lexapro 10 mg tablet RxNorm: 094148 1 Tablet(s) PO daily 02/05/2017 04/14/2017 Inactive Lexapro 10 mg tablet RxNorm: 204200 1 Tablet(s) PO daily 02/05/2017 02/04/2017 Inactive fentanyl 25 mcg/hr transdermal patch RxNorm: 521971 1 Patch TD Q72H 02/04/2017 03/01/2017 Inactive cyanocobalamin (vit B-12) 1,000 mcg tablet RxNorm: 578964 1 Tablet(s) PO daily 01/18/2017 12/13/2017 Inactive hyoscyamine 0.125 mg disintegrating tablet RxNorm: 1505695 Tablet(s) 1-2 Tablet(s) PO Q8 as needed 01/18/2017 02/06/2017 Inactive baclofen 10 mg tablet RxNorm: 720244 TAKE 1 TABLET THREE TIMES DAILY VIA STOMACH TUBE 01/04/2017 02/17/2017 Inactive 01/04/2017 9:25:18 AM fentanyl 100 mcg/hr transdermal patch RxNorm: 726288 1 Patch TD Q72H 12/25/2016 01/23/2017 Inactive hydrochlorothiazide 25 mg tablet RxNorm: 062879 Tablet(s) GIVE 1 TABLET VIA PEG TUBE ONCE A DAY 12/14/2016 07/11/2017 Inactive fentanyl 100 mcg/hr transdermal patch RxNorm: 749874 1 Patch TD Q72H 11/25/2016 12/24/2016 Inactive hyoscyamine 0.125 mg disintegrating tablet RxNorm: 1905605 Tablet(s) 1-2 Tablet(s) PO Q8 as needed 11/25/2016 12/14/2016 Inactive nystatin 100,000 unit/gram topical powder RxNorm: 113507 APPLY UNDER BREASTS TWICE DAILY FOR YEAST SKIN INFECTION AND APPLY TO UNDERARM AND ABDOMINAL FOLDS AND PERIAREA TWICE DAILY 11/24/2016 01/22/2017 Inactive 11/24/2016 9:34:02 AM hydrocodone 10 mg-acetaminophen 325 mg tablet RxNorm: 399478 1 Tablet(s) PO scheduled BID et Q6 hours as needed 11/02/2016 12/01/2016 Inactive cyanocobalamin (vit B-12) 1,000 mcg tablet RxNorm: 586719 1 Tablet(s) PO daily 11/02/2016 01/17/2017 Inactive hyoscyamine 0.125 mg disintegrating tablet RxNorm: 6035864 1-2 Tablet(s) PO Q8 as needed 10/19/2016 11/24/2016 Inactive fentanyl 100 mcg/hr transdermal patch RxNorm: 382483 1 Patch TD Q72H 10/13/2016 11/11/2016 Inactive hydrocodone 10 mg-acetaminophen 325 mg tablet RxNorm: 675779 1 Tablet(s) PO scheduled BID et Q6 hours as needed 10/05/2016 11/01/2016 Inactive baclofen 10 mg tablet RxNorm: 962316 TAKE 1 TABLET THREE TIMES DAILY VIA STOMACH TUBE 10/01/2016 11/14/2016 Inactive 10/01/2016 9:24:37 AM carvedilol 3.125 mg tablet RxNorm: 781767 GIVE 1 TABLET VIA PEG TUBE 2 TIMES A DAY 09/30/2016 12/28/2016 Inactive Generic For:COREG 3.125MG 09/30/2016 1:12:28 PM09/25/2016 9:06:11 AM Probiotic Blend 2 million cell-50 mg capsule RxNorm: 1 Capsule(s) PO BID 09/17/2016 09/23/2016 Inactive Keflex 500 mg capsule RxNorm: 535920 1 Capsule(s) PO TID 09/17/2016 09/23/2016 Inactive hyoscyamine 0.125 mg/5 mL oral elixir RxNorm: 3194112 5 Milliliter(s) PO TID 09/08/2016 09/17/2016 Inactive hyoscyamine 0.125 mg/5 mL oral elixir RxNorm: 4889916 5 Milliliter(s) PO TID 09/08/2016 09/07/2016 Inactive hyoscyamine 0.125 mg disintegrating tablet RxNorm: 4212775 1-2 Tablet(s) PO Q8 as needed 09/07/2016 10/18/2016 Inactive fentanyl 100 mcg/hr transdermal patch RxNorm: 934207 1 Patch TD Q72H 09/01/2016 09/30/2016 Inactive ranitidine 150 mg tablet RxNorm: 856730 1 Tablet(s) PO BID 08/25/2016 No Stop Date Active hydrocodone 10 mg-acetaminophen 325 mg tablet RxNorm: 080406 1 Tablet(s) PO scheduled BID et Q6 hours as needed 08/24/2016 09/22/2016 Inactive cyanocobalamin (vit B-12) 1,000 mcg tablet RxNorm: 370865 1 Tablet(s) PO daily 08/12/2016 11/01/2016 Inactive cyanocobalamin (vit B-12) 1,000 mcg tablet RxNorm: 375157 1 Tablet(s) PO daily 08/12/2016 08/11/2016 Inactive hydrocodone 10 mg-acetaminophen 325 mg tablet RxNorm: 452262 1-2 Tablet(s) PO Q6 as needed 08/03/2016 08/17/2016 Inactive fentanyl 100 mcg/hr transdermal patch RxNorm: 327657 1 Patch TD Q72H 08/03/2016 08/31/2016 Inactive nystatin 100,000 unit/gram topical powder RxNorm: 201790 APPLY UNDER BREASTS TWICE DAILY FOR YEAST SKIN INFECTION AND APPLY TO UNDERARM AND ABDOMINAL FOLDS AND PERIAREA TWICE DAILY 07/17/2016 09/14/2016 Inactive 07/17/2016 3:56:54 PM fentanyl 100 mcg/hr transdermal patch RxNorm: 682292 1 Patch TD Q72H 07/15/2016 08/02/2016 Inactive lisinopril 20 mg tablet RxNorm: 445545 1 Tablet(s) PO daily 07/02/2016 03/28/2017 Inactive hydrocodone 10 mg-acetaminophen 325 mg tablet RxNorm: 987164 1-2 Tablet(s) PO Q6 as needed 07/01/2016 07/15/2016 Inactive Xarelto 20 mg tablet RxNorm: 6530299 Tablet(s) TAKE 1 TABLET VIA PEG TUBE AT BEDTIME 06/19/2016 04/14/2017 Inactive fentanyl 100 mcg/hr transdermal patch RxNorm: 208098 1 Patch TD Q72H 06/17/2016 07/14/2016 Inactive nystatin 100,000 unit/gram topical powder RxNorm: 737239 APPLY TO UNDER BREASTS TWICE DAILY FOR YEAST SKIN INFECTION AND APPLY TO UNDERARM AND ABDOMINAL FOLDS AND PERIAREA TWICE DAILY 06/15/2016 07/16/2016 Inactive Generic For:MYCOSTATIN 100,000 UNITS/GM PW 06/15/2016 12:28:26 PM fentanyl 100 mcg/hr transdermal patch RxNorm: 504936 1 Patch TD Q72H 06/05/2016 06/16/2016 Inactive hydrocodone 10 mg-acetaminophen 325 mg tablet RxNorm: 783887 1-2 Tablet(s) PO Q6 as needed 06/02/2016 06/16/2016 Inactive Probiotic Blend 2 million cell-50 mg capsule RxNorm: 1 Capsule(s) PO BID 05/13/2016 05/19/2016 Inactive nitrofurantoin 100 mg capsule RxNorm: 635305 1 Capsule(s) PO BID 05/13/2016 05/19/2016 Inactive nitrofurantoin 100 mg capsule RxNorm: 133544 1 Capsule(s) PO BID 05/13/2016 05/12/2016 Inactive fentanyl 75 mcg/hr transdermal patch RxNorm: 096495 1 Patch TD Q72H 05/13/2016 06/04/2016 Inactive Keflex 500 mg capsule RxNorm: 347711 1 Capsule(s) PO TID 05/07/2016 05/13/2016 Inactive Patient at [facility] Keflex 500 mg capsule RxNorm: 836692 1 Capsule(s) PO TID 05/07/2016 05/06/2016 Inactive hydrocodone 10 mg-acetaminophen 325 mg tablet RxNorm: 322961 1-2 Tablet(s) PO Q6 as needed 05/04/2016 06/01/2016 Inactive hydrochlorothiazide 25 mg tablet RxNorm: 102323 Tablet(s) GIVE 1 TABLET VIA PEG TUBE ONCE A DAY 04/29/2016 11/24/2016 Inactive hydrochlorothiazide 25 mg tablet RxNorm: 568725 GIVE 1 TABLET VIA PEG TUBE ONCE A DAY 04/22/2016 04/28/2016 Inactive Generic For:HYDRODIURIL 25 MG TABLET refill request fentanyl 75 mcg/hr transdermal patch RxNorm: 191147 1 Patch TD Q72H 04/17/2016 05/12/2016 Inactive Xarelto 20 mg tablet RxNorm: 9556062 TAKE 1 TABLET VIA PEG TUBE AT BEDTIME 04/16/2016 06/14/2016 Inactive 04/16/2016 9:08:52 AM citalopram 40 mg tablet RxNorm: 459070 1 Tablet(s) PO daily 04/02/2016 02/25/2017 Inactive citalopram 40 mg tablet RxNorm: 427387 1 Tablet(s) PO daily 03/27/2016 04/01/2016 Inactive hydrocodone 10 mg-acetaminophen 325 mg tablet RxNorm: 831212 1-2 Tablet(s) PO Q6 as needed 03/27/2016 04/25/2016 Inactive fentanyl 75 mcg/hr transdermal patch RxNorm: 345697 1 Patch TD Q72H 03/18/2016 04/16/2016 Inactive hydrocodone 10 mg-acetaminophen 325 mg tablet RxNorm: 786675 1-2 Tablet(s) PO Q6 as needed 03/11/2016 03/26/2016 Inactive citalopram 40 mg tablet RxNorm: 253508 1 Tablet(s) PO daily 03/04/2016 03/26/2016 Inactive Levemir FlexTouch U-100 Insulin 100 unit/mL (3 mL) subcutaneous pen RxNorm: 023390 20 Unit(s) SQ BID 03/02/2016 09/27/2016 Inactive lisinopril 20 mg tablet RxNorm: 691686 1 Tablet(s) PO daily 02/25/2016 07/01/2016 Inactive Ativan 0.5 mg tablet RxNorm: 184232 1 Tablet(s) PO Q4H as needed 02/18/2016 04/14/2017 Inactive Xarelto 20 mg tablet RxNorm: 0571125 TAKE 1 TABLET VIA PEG TUBE AT BEDTIME 02/12/2016 04/11/2016 Inactive 02/12/2016 9:08:22 AM hydrocodone 10 mg-acetaminophen 325 mg tablet RxNorm: 027073 1-2 Tablet(s) PO Q6 as needed 02/12/2016 03/10/2016 Inactive fentanyl 75 mcg/hr transdermal patch RxNorm: 335097 1 Patch TD Q72H 02/11/2016 03/11/2016 Inactive citalopram 20 mg tablet RxNorm: 712677 1 Tablet(s) PO daily 01/28/2016 03/03/2016 Inactive fentanyl 75 mcg/hr transdermal patch RxNorm: 572465 1 TD Q72H 01/17/2016 02/10/2016 Inactive hydrocodone 10 mg-acetaminophen 325 mg tablet RxNorm: 797380 1-2 Tablet(s) PO Q6 as needed 01/07/2016 02/05/2016 Inactive fentanyl 50 mcg/hr transdermal patch RxNorm: 254415 1 TD Q72H 01/01/2016 01/16/2016 Inactive fentanyl 50 mcg/hr transdermal patch RxNorm: 430950 1 TD q 3 days 12/26/2015 12/31/2015 Inactive Xarelto 20 mg tablet RxNorm: 8890240 TAKE 1 TABLET VIA PEG TUBE AT BEDTIME 12/17/2015 02/11/2016 Inactive 12/16/2015 3:27:57 PM12/14/2015 9:45:17 AM hydrocodone 10 mg-acetaminophen 325 mg tablet RxNorm: 671009 1-2 Tablet(s) PO Q6 as needed 12/06/2015 01/04/2016 Inactive fentanyl 50 mcg/hr transdermal patch RxNorm: 565871 1 TD q 3 days 12/06/2015 12/25/2015 Inactive fentanyl 25 mcg/hr transdermal patch RxNorm: 714546 1 TD q 3 days 11/18/2015 12/05/2015 Inactive Zithromax Z-Eliu 250 mg tablet RxNorm: 045886 1 Tablet(s) PO UD 10/09/2015 02/26/2016 Inactive z pack as directed- please write out instructions- pt at [facility] nystatin 100,000 unit/gram topical powder RxNorm: 119691 APPLY TO UNDER BREASTS TWICE DAILY FOR YEAST SKIN INFECTION AND APPLY TO UNDERARM AND ABDOMINAL FOLDS AND PERIAREA TWICE DAILY 10/07/2015 12/05/2015 Inactive Generic For:MYCOSTATIN 100,000 UNITS/GM PW 10/05/2015 12:07:35 PM fentanyl 25 mcg/hr transdermal patch RxNorm: 683381 1 TD q 3 days 10/03/2015 11/01/2015 Inactive fentanyl 25 mcg/hr transdermal patch RxNorm: 296231 1 TD q 3 days 09/27/2015 10/02/2015 Inactive fentanyl 25 mcg/hr transdermal patch RxNorm: 040806 1 TD q 3 days 09/17/2015 09/26/2015 Inactive fentanyl 25 mcg/hr transdermal patch RxNorm: 226607 1 TD q 3 days 08/30/2015 09/16/2015 Inactive hydrocodone 5 mg-acetaminophen 325 mg tablet RxNorm: 808094 1 Tablet(s) PO Q6 as needed 08/30/2015 09/28/2015 Inactive Diflucan 100 mg tablet RxNorm: 891071 1 Tablet(s) Miscellaneous per peg daily 07/29/2015 08/04/2015 Inactive fentanyl 25 mcg/hr transdermal patch RxNorm: 995868 1 TD q 3 days 07/18/2015 08/29/2015 Inactive hydrocodone 5 mg-acetaminophen 325 mg tablet RxNorm: 760627 1 Tablet(s) PO Q6 as needed 07/18/2015 08/29/2015 Inactive Diflucan 100 mg tablet RxNorm: 055750 1 Tablet(s) Miscellaneous per peg daily 06/17/2015 06/23/2015 Inactive Senna-S 8.6 mg-50 mg tablet RxNorm: 014854 1 Tablet(s) PO daily as needed constipation No Start Date Active Dulcolax (bisacodyl) 10 mg rectal suppository RxNorm: 816228 1 Suppository RTL daily as needed constipation No Start Date Active polyethylene glycol 3350 17 gram/dose oral powder RxNorm: 508266 17 Gram(s) PO daily as needed constipation No Start Date Active baclofen 10 mg tablet RxNorm: 259521 1 Tablet(s) PO TID No Start Date 09/30/2016 Inactive Ativan 0.5 mg tablet RxNorm: 432095 1 Tablet(s) PO Q4H as needed No Start Date 02/17/2016 Inactive ranitidine 150 mg tablet RxNorm: 557445 1 Tablet(s) PO daily No Start Date 08/24/2016 Inactive carvedilol 3.125 mg tablet RxNorm: 672576 1 Tablet(s) PO daily No Start Date 09/29/2016 Inactive citalopram 40 mg tablet RxNorm: 570039 1 Tablet(s) PO daily No Start Date 01/27/2016 Inactive Probiotic Blend oral RxNorm: oral No Start Date 05/12/2016 Inactive hydrochlorothiazide 25 mg tablet RxNorm: 382267 1 Tablet(s) PO daily No Start Date 04/21/2016 Inactive albuterol sulfate concentrate 5 mg/mL(0.5 %) solution for nebulization RxNorm: 860248 1 Vial INH daily as needed congestion No Start Date 03/17/2018 Inactive Levemir FlexTouch 100 unit/mL (3 mL) subcutaneous insulin pen RxNorm: 276485 10 Unit(s) SQ BID No Start Date 03/01/2016 Inactive Zithromax Z-Eliu 250 mg tablet RxNorm: 021482 1 Tablet(s) PO UD No Start Date 10/08/2015 Inactive z pack as directed- please write out instructions- pt at [facility] nystatin 100,000 unit/gram topical powder RxNorm: 407046 Gram(s) TOP BID as needed No Start Date 10/06/2015 Inactive pravastatin 40 mg tablet RxNorm: 970863 Tablet(s) PO daily No Start Date 04/14/2017 Inactive lorazepam 0.5 mg tablet RxNorm: 280351 1/2 Tablet(s) PO BID No Start Date 05/02/2017 Inactive Xarelto 20 mg tablet RxNorm: 1537034 1 Tablet(s) PO daily No Start Date 12/16/2015 Inactive fentanyl 25 mcg/hr transdermal patch RxNorm: 510883 1 TD q 3 days No Start Date 07/17/2015 Inactive lisinopril 20 mg tablet RxNorm: 191127 1 Tablet(s) PO daily No Start Date 02/24/2016 Inactive hydrocodone 5 mg-acetaminophen 325 mg tablet RxNorm: 428449 1 Tablet(s) PO Q6 as needed No Start Date 07/17/2015 Inactive citalopram 40 mg tablet RxNorm: 208564 1 Tablet(s) PO daily No Start Date 03/03/2016 Inactive hyoscyamine 0.125 mg disintegrating tablet RxNorm: 4331284 1-2 Tablet(s) PO Q8 as needed No [...] Code Item Item Code Result Date %Hba1C Gab999 % HbA1c 84824- 6 5.5 % 05/18/2018 %Hba1C Aei466 Gluc Ave 111 mg/dL 05/18/2018 A1C Frequency Fkp499 A1CF 95890-0 Last A1C [place] [facility] [place]: 02-14-2018 05/10/2018 Cbc [...] 30.7 pg 02/14/2018 Cbc With Differential Ord2 [place]% 7.4 % 02/14/2018 Cbc With Differential Ord2 [...] 2.14 K/ul 02/14/2018 Cbc With Differential Ord2 [place] ABS# 0.5 K/ul 02/14/2018 Cbc With Differential Ord2 Eos ABS# 0.3 K/ul 02/14/2018 Cbc With Differential Ord2 Baso ABS# 0.0 K/ul 02/14/2018 Comp Metabolic Nyl770 NA 142 mEq/L 02/14/2018 Comp Metabolic Del683 K 4.5 mEq/L 02/14/2018 Comp Metabolic Xpy246 CL 97 mEq/L 02/14/2018 Comp Metabolic Gci077 CO2 41.0 mEq/L 02/14/2018 Comp Metabolic Fca164 ANION GAP 9 02/14/2018 Comp Metabolic Jdw174 GLUCOSE 111 mg/dL 02/14/2018 Comp Metabolic Zgh527 Creat 0.6 mg/dL 02/14/2018 Comp Metabolic Ocp014 eGFR 108 ml/min/1.73m2 02/14/2018 Comp Metabolic Xkm248 BUN 32 mg/dL 02/14/2018 Comp Metabolic Jhm493 B/C Ratio 54.2 Ratio 02/14/2018 Comp Metabolic Ejt470 CALCIUM 8.9 mg/dL 02/14/2018 Comp Metabolic Rxw253 ALK PHOS 81 U/L 02/14/2018 Comp Metabolic Cum836 AST(SGOT) 14 U/L 02/14/2018 Comp Metabolic Idr432 ALT(SGPT) 11 U/L 02/14/2018 Comp Metabolic Oey657 BILI T 0.3 mg/dL 02/14/2018 Comp Metabolic Qlb634 ALBUMIN 3.4 g/dL 02/14/2018 Comp Metabolic Lta553 TPRO 6.3 g/dL 02/14/2018 Comp Metabolic Bqp685 GLOB 2.9 g/dL 02/14/2018 Comp Metabolic Vyj247 A/G Ratio 1.2 Ratio 02/14/2018 Comp Metabolic Lhg452 Osmo 291 mOsmo 02/14/2018 %Hba1C Jjo819 % HbA1c 72674- 6 5.5 % 02/14/2018 %Hba1C Uyx628 Gluc Ave 111 mg/dL 02/14/2018 Prealbumin 966625 PREALBUMIN 27 mg/dL 11/24/2017 %Hba1C Daw724 % HbA1c 61379- 6 5.5 % 11/04/2017 %Hba1C Hyp673 Gluc Ave 111 mg/dL 11/04/2017 Culture Urine [id number] URINE CULTURE SEE NOTES 10/04/2017 Culture Urine [id number] Continued Results 10/04/2017 Urine Culture Ucult Complete [...] Ord28 U-Com Culture to follow 10/01/2017 B12 Oyn288 B12 >1500.00 pg/ml 02/19/2017 Cbc With Differential [...] 31.5 pg 02/02/2017 Cbc With Differential Ord2 [place]% 8.3 % 02/02/2017 Cbc With Differential Ord2 [...] 2.28 K/ul 02/02/2017 Cbc With Differential Ord2 [place] ABS# 0.6 K/ul 02/02/2017 Cbc With Differential Ord2 Eos ABS# 0.4 K/ul 02/02/2017 Cbc With Differential Ord2 Baso ABS# 0.0 K/ul 02/02/2017 %Hba1C Rtx890 % HbA1c 80741- 6 5.2 % 02/02/2017 %Hba1C Mfz990 Gluc Ave 103 mg/dL 02/02/2017 Comp Metabolic Yjf595 NA 138 mEq/L 02/02/2017 Comp Metabolic Zab665 K 4.5 mEq/L 02/02/2017 Comp Metabolic Zmo718 CL 98 mEq/L 02/02/2017 Comp Metabolic Tgh122 CO2 37.0 mEq/L 02/02/2017 Comp Metabolic Ika926 ANION GAP 8 02/02/2017 Comp Metabolic Kcg402 GLUCOSE 94 mg/dL 02/02/2017 Comp Metabolic Wvh052 Creat 0.7 mg/dL 02/02/2017 Comp Metabolic Kga378 eGFR 88 ml/min/1.73m2 02/02/2017 Comp Metabolic Msp292 BUN 36 mg/dL 02/02/2017 Comp Metabolic Vmu590 B/C Ratio 50.7 Ratio 02/02/2017 Comp Metabolic Eol116 CALCIUM 9.0 mg/dL 02/02/2017 Comp Metabolic Vwa188 ALK PHOS 78 U/L 02/02/2017 Comp Metabolic Tfo749 AST(SGOT) 22 U/L 02/02/2017 Comp Metabolic Dvy350 ALT(SGPT) 28 U/L 02/02/2017 Comp Metabolic Lna678 BILI T 0.3 mg/dL 02/02/2017 Comp Metabolic Fop495 ALBUMIN 3.3 g/dL 02/02/2017 Comp Metabolic Ieu559 TPRO 5.9 g/dL 02/02/2017 Comp Metabolic Ruh122 GLOB 2.6 g/dL 02/02/2017 Comp Metabolic Aku274 A/G Ratio 1.3 Ratio 02/02/2017 Comp Metabolic Ewq617 Osmo 284 mOsmo 02/02/2017 %Hba1C Mti928 % HbA1c 40820- 6 5.0 % 10/29/2016 %Hba1C Vpl349 Gluc Ave 97 mg/dL 10/29/2016 Culture Urine [id number] URINE CULTURE SEE NOTES 09/21/2016 Culture Urine [id number] Continued Results 09/21/2016 Urine Culture Ucult Complete [...] 32.4 pg 07/30/2016 Cbc With Differential Ord2 [place]% 7.2 % 07/30/2016 Cbc With Differential Ord2 [...] 2.69 K/ul 07/30/2016 Cbc With Differential Ord2 [place] ABS# 0.5 K/ul 07/30/2016 Cbc With Differential Ord2 Eos ABS# 0.5 K/ul 07/30/2016 Cbc With Differential Ord2 Baso ABS# 0.0 K/ul 07/30/2016 Comp Metabolic Efz502 NA 141 mEq/L 07/30/2016 Comp Metabolic Bwg957 K 4.3 mEq/L 07/30/2016 Comp Metabolic Tlm344 CL 100 mEq/L 07/30/2016 Comp Metabolic Tya405 CO2 33.0 mEq/L 07/30/2016 Comp Metabolic Bdx198 ANION GAP 12 07/30/2016 Comp Metabolic Nyv922 GLUCOSE 64 mg/dL 07/30/2016 Comp Metabolic Ohu768 Creat 0.5 mg/dL 07/30/2016 Comp Metabolic Ftz023 eGFR 126 ml/min/1.73m2 07/30/2016 Comp Metabolic Hcf120 BUN 25 mg/dL 07/30/2016 Comp Metabolic Gsi120 B/C Ratio 48.1 Ratio 07/30/2016 Comp Metabolic Jvx622 CALCIUM 8.9 mg/dL 07/30/2016 Comp Metabolic Ruk855 ALK PHOS 90 U/L 07/30/2016 Comp Metabolic Alr966 AST(SGOT) 22 U/L 07/30/2016 Comp Metabolic Qqt623 ALT(SGPT) 36 U/L 07/30/2016 Comp Metabolic Pes749 BILI T 0.3 mg/dL 07/30/2016 Comp Metabolic Ilv929 ALBUMIN 3.4 g/dL 07/30/2016 Comp Metabolic Jxb392 TPRO 6.0 g/dL 07/30/2016 Comp Metabolic Gxt750 GLOB 2.7 g/dL 07/30/2016 Comp Metabolic Pkz158 A/G Ratio 1.3 Ratio 07/30/2016 Comp Metabolic Ebo660 Osmo 284 mOsmo 07/30/2016 A1C Frequency Ytx335 A1CF 73966-6 Last A1C [place] [facility] [place]: 05-12-2016 07/30/2016 %Hba1C Hvy048 % HbA1c 66394- 6 5.2 % 05/12/2016 %Hba1C Swm869 Gluc Ave 103 mg/dL 05/12/2016 Culture Urine [id number] URINE CULTURE SEE NOTES 05/11/2016 Urine Culture [...] U-Com Culture to follow 05/06/2016 Culture Urine [id number] URINE CULTURE SEE NOTES 03/17/2016 Culture Urine [id number] Continued Results 03/17/2016 Urine Culture Ucult Complete [...] 32.0 pg 02/11/2016 Cbc With Differential Ord2 [place]% 9.1 % 02/11/2016 Cbc With Differential Ord2 [...] 2.59 K/ul 02/11/2016 Cbc With Differential Ord2 [place] ABS# 0.6 K/ul 02/11/2016 Cbc With Differential Ord2 Eos ABS# 0.3 K/ul 02/11/2016 Cbc With Differential Ord2 Baso ABS# 0.0 K/ul 02/11/2016 Comp Metabolic Wus813 NA 137 mEq/L 02/11/2016 Comp Metabolic Oxn489 K 4.4 mEq/L 02/11/2016 Comp Metabolic Swb353 CL 100 mEq/L 02/11/2016 Comp Metabolic Oko178 CO2 25.0 mEq/L 02/11/2016 Comp Metabolic Xwz335 ANION GAP 16 02/11/2016 Comp Metabolic Mhn290 GLUCOSE 99 mg/dL 02/11/2016 Comp Metabolic Xew758 Creat 0.6 mg/dL 02/11/2016 Comp Metabolic Hxd293 eGFR 99 ml/min/1.73m2 02/11/2016 Comp Metabolic Nhp066 BUN 27 mg/dL 02/11/2016 Comp Metabolic Ljx872 B/C Ratio 42.2 Ratio 02/11/2016 Comp Metabolic Aan818 CALCIUM 9.2 mg/dL 02/11/2016 Comp Metabolic Qao814 ALK PHOS 74 U/L 02/11/2016 Comp Metabolic Yap457 AST(SGOT) 24 U/L 02/11/2016 Comp Metabolic Rfa821 ALT(SGPT) 26 U/L 02/11/2016 Comp Metabolic Rpc849 BILI T 0.5 mg/dL 02/11/2016 Comp Metabolic Fnw994 ALBUMIN 3.5 g/dL 02/11/2016 Comp Metabolic Hrf176 TPRO 6.2 g/dL 02/11/2016 Comp Metabolic Spd736 GLOB 2.7 g/dL 02/11/2016 Comp Metabolic Off271 A/G Ratio 1.3 Ratio 02/11/2016 Comp Metabolic Bvy265 Osmo 279 mOsmo 02/11/2016 Review of Systems [...] 1: 128/86 Code: 8480-6 BMI: 31.4 Code: 21472-3 Heart Rate 1: 72 bpm Height: 5'1" Weight: 166 lbs 06/17/2015 Blood Pressure 1: 110/78 Code: 8480-6 BMI: 33.3 Code: 87055-9 Heart Rate 1: 74 bpm Height: 5'1" [...] Present Encounters Encounter Performer Location Codes Date ([id number]) 89160 EST. PATIENT, LEVEL IV Diagnosis: Essential (primary) hypertension[ICD10: I10] Diagnosis: Chronic pain syndrome[ICD10: G89.4] Diagnosis: Type 2 diabetes mellitus without complications[ICD10: E11.9] Carlyn Everett MD, [facility] CPT-4: 41564 05/17/2018 ([id number]) 58676 EST. PATIENT, LEVEL IV Diagnosis: Cough[ICD10: R05] Diagnosis: Pneumonia, unspecified organism[ICD10: J18.9] Diagnosis: Pain in right knee[ICD10: M25.561] Carlyn Everett MD, [facility] CPT- 4: 39881 03/18/2018 ([id number]) 45346 EST. PATIENT, LEVEL IV Diagnosis: Type 2 diabetes mellitus without complications[ICD10: E11.9] Diagnosis: Essential (primary) hypertension[ICD10: I10] Diagnosis: Chronic pain syndrome[ICD10: G89.4] Carlyn Everett MD, [facility] CPT-4: 21274 01/07/2018 ([id number]) 43613 EST. PATIENT, LEVEL IV Diagnosis: Essential (primary) hypertension[ICD10: I10] Diagnosis: Type 2 diabetes mellitus without complications[ICD10: E11.9] Carlyn Everett MD, [facility] CPT-4: 92757 2017 ([id number]) 86654 EST. PATIENT, LEVEL IV Diagnosis: Type 2 diabetes mellitus with hyperglycemia[ICD10: E11.65] Diagnosis: Essential (primary) hypertension[ICD10: I10] Diagnosis: Pain in left shoulder[ICD10: M25.512] Diagnosis: Pain in right shoulder[ICD10: M25.511] Diagnosis: Pain in left knee[ICD10: M25.562] Diagnosis: Pain in right knee[ICD10: M25.561] Vonda Everett MD, [facility] CPT- 4: 13937 09/09/2017 85760 EST. PATIENT, LEVEL IV Diagnosis: Essential (primary) hypertension[ICD10: I10] Diagnosis: Type 2 diabetes mellitus with hyperglycemia[ICD10: E11.65] Diagnosis: Low back pain[ICD10: M54.5] Sunitha Everett MD, [facility] CPT-4: 01186 06/08/2017 ([id number]) 50445 EST. PATIENT, LEVEL IV Diagnosis: Essential (primary) hypertension[ICD10: I10] Diagnosis: Type 2 diabetes mellitus with hyperglycemia[ICD10: E11.65] Diagnosis: Low back pain[ICD10: M54.5] Sunitha Everett MD, [facility] CPT-4: 13212 04/15/2017 ([id number]) 59639 EST. PATIENT, LEVEL IV Diagnosis: Essential (primary) hypertension[ICD10: I10] Diagnosis: Type 2 diabetes mellitus with hyperglycemia[ICD10: E11.65] Diagnosis: Low back pain[ICD10: M54.5] Vonda Everett MD, [facility] CPT-4: 73293 02/16/2017 14809 EST. 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 05/17/2018 Appointment: Carlyn Higginbotham WPtel: [facility] [phone] (15 min) Moderate 05/17/2018 Patient Education: Patient Medication Summary Completed 05/17/2018 Patient Education: Hypertension Completed 05/17/2018 Patient Education: Diabetes Completed 05/17/2018 Appointment: Carlyn Higginbotham WPtel: [facility] [phone] (15 min) Moderate 04/07/2018 Visit Plan: Pneumonia - Pt has been diagnosed with pneumonia by physical exam. A chest xray has been ordered as have antibiotics. The pt is aware of the diagnosis and the need for acute treatment of this illness. Right knee pain -xray knee-rx for voltaren gel 03/18/2018 Appointment: Carlyn Higginbotham WPtel: [facility] [phone] [place] (30 min) Complex 03/18/2018 Patient Education: Patient Medication Summary Completed 03/18/2018 Appointment: Carlyn Higginbotham WPtel: [address] [place], [place] [phone] (30 min) Complex 03/17/2018 Appointment: Carlyn Higginbotham WPtel: [address] [place], [place] [phone] [place] (15 min) Moderate 03/10/2018 Appointment: Carlyn Higginbotham WPtel: [address] [place], [place] [phone] [place] (15 min) Moderate 02/08/2018 Visit Plan: DM -decrease levemir to 4 units daily -monitor blood sugars HNE-rxitlzdgas-ua changes Chronic pain -well controlled with fentanyl patch -no changes at this time 01/07/2018 Appointment: Carlyn Higginbotham WPtel: [phone] [phone] (15 min) Moderate 01/07/2018 Patient Education: Patient [...] AT HS 2017 Appointment: Carlyn Higginbotham WPtel: [phone] [phone] (15 min) Moderate 2017 Patient Education: Patient [...] 175mcg. 09/09/2017 Appointment: Vonda Everett WPtel: [phone] [facility] (15 min) Moderate 09/09/2017 Patient Education: Patient [...] and PRN pain medications - will have half-way fax over PRN medication administration record. 06/08/2017 Appointment: Sunitha Patel WPtel: [facility] [place] (30 min) [facility] 06/08/2017 Patient Education: Patient Medication Summary Completed [...] of over-medication. 04/15/2017 Appointment: Sunitha Patel [facility]el[phone] [place] (30 min) Complex 04/15/2017 Patient Education: Patient [...] today. 02/16/2017 Appointment: Vonda Everett WPtel: [phone] [facility] (15 min) Moderate 02/16/2017 Patient Education: Patient [...] concerns. 11/09/2016 Appointment: Sunith[facility] Patel [phone] [place] (30 min) Complex 11/09/2016 Patient Education: Patient Medication Summary Completed 11/09/2016 Care Plan: Referral Order SNOMED-CT : [id number] Pending 11/09/2016 Patient Education: Patient Medication Summary [...] Follow up weight in 1 month Neck mqvl-ugztspulztr-Iddw PT focus neck/upper body Right earache-cerumen removed with water pick today in the office 07/18/2015 Appointment: (30 min) Complex 07/18/2015 Patient Education: Patient Medication Summary Completed 07/18/2015 Patient Education: Obesity Completed 07/18/2015 Patient Education: .Cervicalgia Neck Pain Completed 07/18/2015 Referral: [facility] WPtel: [phone] [facility] Referral Completed 06/25/2015 Visit Plan: Hypertension - [...] week, get report from and [facility]. I spent over an hour with the patient in direct contact. 06/17/2015 Appointment: [facility]el[phone] [facility] [place] [place] Patient 06/17/2015 Patient Education: Patient Medication Summary Completed 06/17/2015 Patient Education: Obesity Completed 06/17/2015 Patient Education: Hypertension Completed 06/17/2015 Care Plan: Referral Order SNOMED-CT : [id number] Ordered 06/17/2015 Referral: Jorge Luis Carroll Referral Initiated Ref[facility] [phone] [facility] [place] Ref[facility] Appointment Requested Instructions Comment . [...] knee-rx for voltaren gel . Hypertension - well controlled - continue [...] to 4 units daily -monitor blood sugars HDU-egqdcpfeck-cg changes Chronic pain -well controlled with fentanyl [...] dose of duragesic from 150mcg to 175mcg. Add 1 scoop of whey protein from [facility] to 2 feedings per day . [...] Follow up weight in 1 month Neck juty-cpcwdrylozs-Ricd PT focus neck/upper body Right earache-cerumen removed [...] medications. referral to [facility] physical and occupational therapy for post stroke - left sided weakness, neck stiffness, upper extremity weakness Diabetes Mellitus - controlled - per family report - check labs this week, get report from and [facility]. I spent over an hour [...] and PRN pain medications - will have half-way fax over PRN medication administration record.
--- OUTSIDE RECORDS SUMMARY | 2018-08-09 11:30 | XMS REPORT | CCD ---
Author Author Vonda Everett Organization Vonda Everett MD, [facility] Address [address] [place] [address] Phone Care Team Providers Care Ferryboat Deckhand Name Role Phone PP Unavailable CCM Unavailable Summary Purpose Interface Exchange Insurance Providers Payer name Policy type / Coverage type Covered democrat ID Effective Begin Date Effective End Date WPS Medicare Part B Medicare Part B [id number] Unknown Unknown [facility] Life Insurance Medicare Part B [id number] Unknown Unknown Family history Father Diagnosis Age At Onset Arthritis Unknown Hypertension Unknown Mother Diagnosis Age At Onset Diabetes mellitus Type 2 Unknown Depression Unknown Arthritis Unknown Stroke Unknown Hypertension Unknown Sister Diagnosis Age At Onset Colon cancer Unknown Social History Social History Element Codes Description Effective Dates Marital status Unknown Maurice 01/07/2018 Living arrangements Unknown Snf [facility] 04/15/2017 Number of children Unknown 3 06/17/2015 Employment Unknown Retired 06/17/[address]: 8019123 Quit over 10 years ago 15+ 06/17/[address]: 004727866 Never drinks alcohol 06/17/2015 Allergies, Adverse Reactions, [...] Fill Instructions citalopram 20 mg tablet RxNorm: 187915 1 Tablet(s) PO daily 05/17/2018 04/11/2019 Active hydrocodone 10 mg-acetaminophen 325 mg tablet RxNorm: 355404 2 Tablet(s) PO scheduled TID 04/19/2018 05/18/2018 Active Not to exceed 3gm/24hr acetaminophen lorazepam 0.5 mg tablet RxNorm: 515275 1 Tablet(s) PO BID and 1 tab q 6 hours prn 04/07/2018 No Stop Date Active hyoscyamine 0.125 mg disintegrating tablet RxNorm: 7517441 Tablet(s) 1-2 Tablet(s) PO Q8 as needed 03/31/2018 No Stop Date Active Duragesic 75 mcg/hr transdermal patch RxNorm: 901325 1 Patch TD Q72H 03/31/2018 04/29/2018 Inactive fentanyl 100 mcg/hr transdermal patch RxNorm: 295142 1 Patch TD Q72H 03/31/2018 04/29/2018 Inactive carvedilol 3.125 mg tablet RxNorm: 310222 Tablet(s) GIVE 1 TABLET VIA PEG TUBE 2 TIMES A DAY 03/30/2018 06/27/2018 Active Generic For:COREG 3.125MG 10/22/2017 9:23:30 AM Voltaren 1 % topical gel RxNorm: 853115 APPLY 4 GRAMS TO RIGHT KNEE FOUR TIMES DAILY 03/30/2018 04/22/2018 Inactive Generic For:VOLTAREN GEL 1% 03/30/2018 11:14:57 AM hydrocodone 10 mg-acetaminophen 325 mg tablet RxNorm: 464767 2 Tablet(s) PO scheduled TID 03/23/2018 04/18/2018 Inactive Not to exceed 3gm/24hr acetaminophen albuterol sulfate concentrate 5 mg/mL(0.5 %) solution for nebulization RxNorm: 203065 1 Vial Milliliter(s) INH TID PRN as needed congestion 03/18/2018 No Stop Date Active cefdinir 300 mg capsule RxNorm: 632743 1 Capsule(s) PO BID 03/18/2018 03/24/2018 Inactive Zithromax Z-Eliu 250 mg tablet RxNorm: 351498 Tablet(s) PO 03/18/2018 05/16/2018 Inactive Voltaren 1 % topical gel RxNorm: 103842 4 Gram(s) TOP QID 03/18/2018 03/29/2018 Inactive hydrochlorothiazide 25 mg tablet RxNorm: 251712 GIVE 1 TABLET VIA PEG TUBE ONCE DAILY 03/11/2018 09/06/2018 Active Generic For:HYDRODIURIL 25 MG TABLET 03/11/2018 9:15:32 AM fentanyl 100 mcg/hr transdermal patch RxNorm: 507979 1 Patch TD Q72H 03/02/2018 03/30/2018 Inactive Duragesic 75 mcg/hr transdermal patch RxNorm: 586404 1 Patch TD Q72H 03/02/2018 03/30/2018 Inactive hydrocodone 10 mg-acetaminophen 325 mg tablet RxNorm: 518075 2 Tablet(s) PO scheduled TID 02/18/2018 03/22/2018 Inactive Not to exceed 3gm/24hr acetaminophen hyoscyamine 0.125 mg disintegrating tablet RxNorm: 3687616 Tablet(s) 1-2 Tablet(s) PO Q8 as needed 02/08/2018 03/30/2018 Inactive fentanyl 100 mcg/hr transdermal patch RxNorm: 944030 1 Patch TD Q72H 02/04/2018 03/01/2018 Inactive hydrocodone 10 mg-acetaminophen 325 mg tablet RxNorm: 067111 2 Tablet(s) PO scheduled TID 02/04/2018 02/17/2018 Inactive Not to exceed 3gm/24hr acetaminophen Duragesic 75 mcg/hr transdermal patch RxNorm: 111044 1 Patch TD Q72H 02/04/2018 03/01/2018 Inactive Levemir FlexTouch U-100 Insulin 100 unit/mL (3 mL) subcutaneous pen RxNorm: 769439 4 Unit(s) SQ QHS 01/07/2018 No Stop Date Active Duragesic 75 mcg/hr transdermal patch RxNorm: 115456 1 Patch TD Q72H 01/07/2018 02/03/2018 Inactive fentanyl 100 mcg/hr transdermal patch RxNorm: 852283 1 Patch TD Q72H 01/07/2018 02/03/2018 Inactive hydrocodone 10 mg-acetaminophen 325 mg tablet RxNorm: 016326 2 Tablet(s) PO scheduled TID 01/05/2018 02/03/2018 Inactive Not to exceed 3gm/24hr acetaminophen hydrocodone 10 mg-acetaminophen 325 mg tablet RxNorm: 151295 2 Tablet(s) PO scheduled TID and 1 tab q 4 as needed 01/04/2018 01/04/2018 Inactive Not to exceed 3gm/24hr acetaminophen cyanocobalamin (vit B-12) 1,000 mcg tablet RxNorm: 566197 1 Tablet(s) PO daily 12/28/2017 11/22/2018 Active baclofen 10 mg tablet RxNorm: 914155 Tablet(s) TAKE 1 TABLET THREE TIMES DAILY VIA STOMACH TUBE 12/27/2017 05/25/2018 Active 10/07/2017 5:36:15 PM 10/07/2017 5:36:13 PM N O T I C E Last quantity doesn't match original quantity Duragesic 75 mcg/hr transdermal patch RxNorm: 464703 1 Patch TD Q72H 12/22/2017 01/06/2018 Inactive fentanyl 100 mcg/hr transdermal patch RxNorm: 342028 1 Patch TD Q72H 12/22/2017 01/06/2018 Inactive hydrocodone 10 mg-acetaminophen 325 mg tablet RxNorm: 726357 2 Tablet(s) PO scheduled TID and 1 tab q 4 as needed 12/20/2017 01/03/2018 Inactive Not to exceed 3gm/24hr acetaminophen hyoscyamine 0.125 mg disintegrating tablet RxNorm: 2808662 1-2 Tablet(s) PO Q8 as needed 12/14/2017 02/07/2018 Inactive Duragesic 75 mcg/hr transdermal patch RxNorm: 425751 1 Patch TD Q72H 12/06/2017 12/21/2017 Inactive fentanyl 100 mcg/hr transdermal patch RxNorm: 336800 1 Patch TD Q72H 12/06/2017 12/21/2017 Inactive hydrocodone 10 mg-acetaminophen 325 mg tablet RxNorm: 373789 2 Tablet(s) PO scheduled TID and 1 tab q 4 as needed 11/29/2017 12/19/2017 Inactive Not to exceed 3gm/24hr acetaminophen Duragesic 75 mcg/hr transdermal patch RxNorm: 004191 1 Patch TD Q72H 11/11/2017 12/05/2017 Inactive hydrocodone 10 mg-acetaminophen 325 mg tablet RxNorm: 146742 2 Tablet(s) PO scheduled TID and 1 tab q 4 as needed 11/09/2017 11/28/2017 Inactive Not to exceed 3gm/24hr acetaminophen Levemir FlexTouch U-100 Insulin 100 unit/mL (3 mL) subcutaneous pen RxNorm: 899043 8 Unit(s) SQ QHS 11/09/2017 01/06/2018 Inactive fentanyl 100 mcg/hr transdermal patch RxNorm: 976271 1 Patch TD Q72H 2017 12/05/2017 Inactive hyoscyamine 0.125 mg disintegrating tablet RxNorm: 4016866 1-2 Tablet(s) PO Q8 as needed 11/03/2017 12/13/2017 Inactive carvedilol 3.125 mg tablet RxNorm: 972166 GIVE 1 TABLET VIA PEG TUBE 2 TIMES A DAY 10/22/2017 01/19/2018 Inactive Generic For:COREG 3.125MG 10/22/2017 9:23:30 AM hydrocodone 10 mg-acetaminophen 325 mg tablet RxNorm: 054137 2 Tablet(s) PO scheduled TID and 1 tab q 4 as needed 10/22/2017 2017 Inactive Not to exceed 3gm/24hr acetaminophen fentanyl 100 mcg/hr transdermal patch RxNorm: 309083 1 Patch TD Q72H 10/20/2017 11/07/2017 Inactive Duragesic 75 mcg/hr transdermal patch RxNorm: 077167 1 Patch TD Q72H 10/20/2017 11/10/2017 Inactive lorazepam 0.5 mg tablet RxNorm: 740276 1 Tablet(s) PO BID and 1 tab q 6 hours prn 10/18/2017 No Stop Date Active baclofen 10 mg tablet RxNorm: 639661 TAKE 1 TABLET THREE TIMES DAILY VIA STOMACH TUBE 10/07/2017 12/26/2017 Inactive 10/07/2017 5:36:15 PM 10/07/2017 5:36:13 PM N O T I C E Last quantity doesn't match original quantity cranberry extract 500 mg tablet RxNorm: 8490119 1 Tablet(s) PO QAM 10/04/2017 01/31/2018 Inactive Cipro 500 mg tablet RxNorm: 905092 1 Tablet(s) PO BID 10/04/2017 10/03/2017 Inactive dc keflex hydrocodone 10 mg-acetaminophen 325 mg tablet RxNorm: 500777 2 Tablet(s) PO scheduled TID as needed 10/04/2017 10/21/2017 Inactive Not to exceed 3gm/24hr acetaminophen cranberry extract 500 mg tablet RxNorm: 2438154 1 Tablet(s) PO QAM 10/04/2017 10/03/2017 Inactive Cipro 500 mg tablet RxNorm: 025756 1 Tablet(s) PO BID 10/04/2017 10/10/2017 Inactive dc keflex Duragesic 75 mcg/hr transdermal patch RxNorm: 925377 1 Patch TD Q72H 09/20/2017 10/19/2017 Inactive fentanyl 100 mcg/hr transdermal patch RxNorm: 136353 1 Patch TD Q72H 09/20/2017 10/19/2017 Inactive hyoscyamine 0.125 mg disintegrating tablet RxNorm: 4945564 1 Tablet(s) PO TID and 1 Tablet Q4H prn increased secretions 09/15/2017 11/02/2017 Inactive hydrocodone 10 mg-acetaminophen 325 mg tablet RxNorm: 591907 2 Tablet(s) PO scheduled TID and 1-2 Tabs Q4H PRN pain 09/15/2017 10/03/2017 Inactive Not to exceed 3gm/24hr acetaminophen lorazepam 0.5 mg tablet RxNorm: 337287 1 Tablet(s) PO BID 09/15/2017 10/17/2017 Inactive Lexapro 10 mg tablet RxNorm: 769364 1 Tablet(s) PO daily 09/10/2017 09/14/2017 Inactive Levemir FlexTouch U-100 Insulin 100 unit/mL (3 mL) subcutaneous pen RxNorm: 454971 10 Unit(s) daily 09/09/2017 09/15/2017 Inactive lisinopril 10 mg tablet RxNorm: 978895 1 Tablet(s) PO daily 09/09/2017 05/16/2018 Inactive Duragesic 75 mcg/hr transdermal patch RxNorm: 862983 1 Patch TD Q72H 09/09/2017 09/19/2017 Inactive nystatin 100,000 unit/gram topical cream RxNorm: 273184 1 Gram(s) TOP TID until healed to gaulding 09/06/2017 01/03/2018 Inactive nystatin 100,000 unit/gram topical cream RxNorm: 454139 1 Gram(s) TOP TID until healed to gaulding 09/06/2017 09/05/2017 Inactive hydrocodone 10 mg-acetaminophen 325 mg tablet RxNorm: 730861 2 Tablet(s) PO scheduled TID as needed 08/31/2017 09/14/2017 Inactive Not to exceed 3gm/24hr acetaminophen fentanyl 100 mcg/hr transdermal patch RxNorm: 190924 1 Patch TD Q72H 08/24/2017 09/19/2017 Inactive fentanyl 50 mcg/hr transdermal patch RxNorm: 744010 1 Patch TD Q72H 08/24/2017 09/08/2017 Inactive fentanyl 25 mcg/hr transdermal patch RxNorm: 803559 1 Patch TD Q72H 08/24/2017 08/24/2017 Inactive hyoscyamine 0.125 mg disintegrating tablet RxNorm: 4979104 Tablet(s) 1-2 Tablet(s) PO Q8 as needed 08/23/2017 09/14/2017 Inactive hydrocodone 10 mg-acetaminophen 325 mg tablet RxNorm: 937284 1 Tablet(s) PO scheduled TID et Q6 hours as needed 08/18/2017 08/30/2017 Inactive Not to exceed 3gm/24hr acetaminophen hydrochlorothiazide 25 mg tablet RxNorm: 836156 GIVE 1 TABLET VIA PEG TUBE ONCE DAILY 08/17/2017 02/12/2018 Inactive Generic For:HYDRODIURIL 25 MG TABLET 08/17/2017 9:01:54 AM08/11/2017 10:12:00 AM lorazepam 0.5 mg tablet RxNorm: 235829 1/2 Tablet(s) PO BID 08/03/2017 09/14/2017 Inactive fentanyl 100 mcg/hr transdermal patch RxNorm: 657444 1 Patch TD Q72H 07/26/2017 08/23/2017 Inactive fentanyl 25 mcg/hr transdermal patch RxNorm: 649106 1 Patch TD Q72H 07/26/2017 08/23/2017 Inactive hydrocodone 10 mg-acetaminophen 325 mg tablet RxNorm: 095818 1 Tablet(s) PO scheduled TID et Q6 hours as needed 07/16/2017 08/14/2017 Inactive Not to exceed 3gm/24hr acetaminophen hyoscyamine 0.125 mg disintegrating tablet RxNorm: 6305852 Tablet(s) 1-2 Tablet(s) PO Q8 as needed 07/13/2017 08/01/2017 Inactive baclofen 10 mg tablet RxNorm: 828344 TAKE 1 TABLET THREE TIMES DAILY VIA STOMACH TUBE 07/12/2017 10/06/2017 Inactive 07/12/2017 9:04:08 AM N O T I C E Last quantity doesn't match original quantity lorazepam 0.5 mg tablet RxNorm: 241959 1/2 Tablet(s) PO BID 07/02/2017 08/02/2017 Inactive fentanyl 100 mcg/hr transdermal patch RxNorm: 089306 1 Patch TD Q72H 06/28/2017 07/25/2017 Inactive fentanyl 25 mcg/hr transdermal patch RxNorm: 835532 1 Patch TD Q72H 06/28/2017 07/25/2017 Inactive hyoscyamine 0.125 mg disintegrating tablet RxNorm: 5077502 Tablet(s) 1-2 Tablet(s) PO Q8 as needed 06/03/2017 06/22/2017 Inactive fentanyl 25 mcg/hr transdermal patch RxNorm: 548035 1 Patch TD Q72H 05/26/2017 06/24/2017 Inactive Levemir FlexTouch U-100 Insulin 100 unit/mL (3 mL) subcutaneous pen RxNorm: 472910 20 Unit(s) SQ BID 05/26/2017 09/08/2017 Inactive fentanyl 100 mcg/hr transdermal patch RxNorm: 614388 1 Patch TD Q72H 05/26/2017 06/24/2017 Inactive hydrocodone 10 mg-acetaminophen 325 mg tablet RxNorm: 257330 1 Tablet(s) PO scheduled BID et Q6 hours as needed 05/12/2017 05/11/2017 Inactive hydrocodone 10 mg-acetaminophen 325 mg tablet RxNorm: 666030 1 Tablet(s) PO scheduled TID et Q6 hours as needed 05/12/2017 06/10/2017 Inactive Not to exceed 3gm/24hr acetaminophen docusate sodium 100 mg tablet RxNorm: 2722771 1 Tablet(s) PO BID as needed if no bowel movement 05/10/2017 05/09/2017 Inactive lisinopril 20 mg tablet RxNorm: 394865 1 Tablet(s) PO daily 05/10/2017 09/08/2017 Inactive docusate sodium 100 mg tablet RxNorm: 9573164 1 Tablet(s) PO BID as needed if no bowel movement 05/10/2017 09/14/2017 Inactive fentanyl 25 mcg/hr transdermal patch RxNorm: 258980 1 Patch TD Q72H 05/03/2017 05/25/2017 Inactive lorazepam 0.5 mg tablet RxNorm: 536585 1/2 Tablet(s) PO BID 05/03/2017 07/01/2017 Inactive fentanyl 100 mcg/hr transdermal patch RxNorm: 840952 1 Patch TD Q72H 04/27/2017 05/25/2017 Inactive carvedilol 3.125 mg tablet RxNorm: 704952 Tablet(s) GIVE 1 TABLET VIA PEG TUBE DAILY 04/15/2017 10/21/2017 Inactive Levemir FlexTouch 100 unit/mL (3 mL) subcutaneous insulin pen RxNorm: 105585 10 Unit(s) SQ BID 04/15/2017 2017 Inactive hyoscyamine 0.125 mg disintegrating tablet RxNorm: 3788982 1-2 Tablet(s) PO Q8 as needed 04/14/2017 05/03/2017 Inactive hydrocodone 10 mg-acetaminophen 325 mg tablet RxNorm: 513137 1 Tablet(s) PO scheduled BID et Q6 hours as needed 04/13/2017 05/02/2017 Inactive baclofen 10 mg tablet RxNorm: 077775 TAKE 1 TABLET THREE TIMES DAILY VIA STOMACH TUBE 04/08/2017 05/22/2017 Inactive 04/08/2017 9:32:07 AM fentanyl 25 mcg/hr transdermal patch RxNorm: 939691 1 Patch TD Q72H 04/05/2017 05/02/2017 Inactive lidocaine 10 mg/mL (1 %) injection solution RxNorm: 3691884 1 Milliliter(s) Inj daily Mix with rocephin 03/31/2017 03/30/2017 Inactive Pt resides at [facility] lidocaine 10 mg/mL (1 %) injection solution RxNorm: 3443222 1 Milliliter(s) Inj daily Mix with rocephin 03/31/2017 04/06/2017 Inactive Pt resides at [facility] fentanyl 100 mcg/hr transdermal patch RxNorm: 450224 1 Patch TD Q72H 03/29/2017 04/26/2017 Inactive nystatin 100,000 unit/gram topical powder RxNorm: 213889 APPLY UNDER BREASTS TWICE DAILY FOR YEAST SKIN INFECTION AND APPLY TO UNDERARM AND ABDOMINAL FOLDS AND PERIAREA TWICE DAILY 03/29/2017 03/28/2017 Inactive 03/27/2017 9:12:50 AM nystatin 100,000 unit/gram topical powder RxNorm: 171679 APPLY UNDER BREASTS TWICE DAILY FOR YEAST SKIN INFECTION AND APPLY TO UNDERARM AND ABDOMINAL FOLDS AND PERIAREA TWICE DAILY 03/29/2017 09/14/2017 Inactive 03/29/2017 9:42:55 AM03/27/2017 9:12:50 AM hyoscyamine 0.125 mg disintegrating tablet RxNorm: 0918033 1-2 Tablet(s) PO Q8 as needed 03/08/2017 03/27/2017 Inactive fentanyl 25 mcg/hr transdermal patch RxNorm: 321061 1 Patch TD Q72H 03/02/2017 03/31/2017 Inactive hydrocodone 10 mg-acetaminophen 325 mg tablet RxNorm: 566423 1 Tablet(s) PO scheduled BID et Q6 hours as needed 02/17/2017 03/18/2017 Inactive fentanyl 100 mcg/hr transdermal patch RxNorm: 970609 1 Patch TD Q72H 02/17/2017 03/18/2017 Inactive Lexapro 10 mg tablet RxNorm: 580565 1 Tablet(s) PO daily 02/05/2017 04/14/2017 Inactive Lexapro 10 mg tablet RxNorm: 716290 1 Tablet(s) PO daily 02/05/2017 02/04/2017 Inactive fentanyl 25 mcg/hr transdermal patch RxNorm: 159259 1 Patch TD Q72H 02/04/2017 03/01/2017 Inactive cyanocobalamin (vit B-12) 1,000 mcg tablet RxNorm: 705186 1 Tablet(s) PO daily 01/18/2017 12/13/2017 Inactive hyoscyamine 0.125 mg disintegrating tablet RxNorm: 9149330 Tablet(s) 1-2 Tablet(s) PO Q8 as needed 01/18/2017 02/06/2017 Inactive baclofen 10 mg tablet RxNorm: 896490 TAKE 1 TABLET THREE TIMES DAILY VIA STOMACH TUBE 01/04/2017 02/17/2017 Inactive 01/04/2017 9:25:18 AM fentanyl 100 mcg/hr transdermal patch RxNorm: 361074 1 Patch TD Q72H 12/25/2016 01/23/2017 Inactive hydrochlorothiazide 25 mg tablet RxNorm: 877971 Tablet(s) GIVE 1 TABLET VIA PEG TUBE ONCE A DAY 12/14/2016 07/11/2017 Inactive fentanyl 100 mcg/hr transdermal patch RxNorm: 076850 1 Patch TD Q72H 11/25/2016 12/24/2016 Inactive hyoscyamine 0.125 mg disintegrating tablet RxNorm: 5366305 Tablet(s) 1-2 Tablet(s) PO Q8 as needed 11/25/2016 12/14/2016 Inactive nystatin 100,000 unit/gram topical powder RxNorm: 535902 APPLY UNDER BREASTS TWICE DAILY FOR YEAST SKIN INFECTION AND APPLY TO UNDERARM AND ABDOMINAL FOLDS AND PERIAREA TWICE DAILY 11/24/2016 01/22/2017 Inactive 11/24/2016 9:34:02 AM hydrocodone 10 mg-acetaminophen 325 mg tablet RxNorm: 851409 1 Tablet(s) PO scheduled BID et Q6 hours as needed 11/02/2016 12/01/2016 Inactive cyanocobalamin (vit B-12) 1,000 mcg tablet RxNorm: 677877 1 Tablet(s) PO daily 11/02/2016 01/17/2017 Inactive hyoscyamine 0.125 mg disintegrating tablet RxNorm: 1229290 1-2 Tablet(s) PO Q8 as needed 10/19/2016 11/24/2016 Inactive fentanyl 100 mcg/hr transdermal patch RxNorm: 742112 1 Patch TD Q72H 10/13/2016 11/11/2016 Inactive hydrocodone 10 mg-acetaminophen 325 mg tablet RxNorm: 113055 1 Tablet(s) PO scheduled BID et Q6 hours as needed 10/05/2016 11/01/2016 Inactive baclofen 10 mg tablet RxNorm: 107606 TAKE 1 TABLET THREE TIMES DAILY VIA STOMACH TUBE 10/01/2016 11/14/2016 Inactive 10/01/2016 9:24:37 AM carvedilol 3.125 mg tablet RxNorm: 327288 GIVE 1 TABLET VIA PEG TUBE 2 TIMES A DAY 09/30/2016 12/28/2016 Inactive Generic For:COREG 3.125MG 09/30/2016 1:12:28 PM09/25/2016 9:06:11 AM Probiotic Blend 2 million cell-50 mg capsule RxNorm: 1 Capsule(s) PO BID 09/17/2016 09/23/2016 Inactive Keflex 500 mg capsule RxNorm: 061453 1 Capsule(s) PO TID 09/17/2016 09/23/2016 Inactive hyoscyamine 0.125 mg/5 mL oral elixir RxNorm: 6444212 5 Milliliter(s) PO TID 09/08/2016 09/17/2016 Inactive hyoscyamine 0.125 mg/5 mL oral elixir RxNorm: 3365821 5 Milliliter(s) PO TID 09/08/2016 09/07/2016 Inactive hyoscyamine 0.125 mg disintegrating tablet RxNorm: 0599048 1-2 Tablet(s) PO Q8 as needed 09/07/2016 10/18/2016 Inactive fentanyl 100 mcg/hr transdermal patch RxNorm: 226663 1 Patch TD Q72H 09/01/2016 09/30/2016 Inactive ranitidine 150 mg tablet RxNorm: 925102 1 Tablet(s) PO BID 08/25/2016 No Stop Date Active hydrocodone 10 mg-acetaminophen 325 mg tablet RxNorm: 071515 1 Tablet(s) PO scheduled BID et Q6 hours as needed 08/24/2016 09/22/2016 Inactive cyanocobalamin (vit B-12) 1,000 mcg tablet RxNorm: 147807 1 Tablet(s) PO daily 08/12/2016 11/01/2016 Inactive cyanocobalamin (vit B-12) 1,000 mcg tablet RxNorm: 112628 1 Tablet(s) PO daily 08/12/2016 08/11/2016 Inactive hydrocodone 10 mg-acetaminophen 325 mg tablet RxNorm: 142191 1-2 Tablet(s) PO Q6 as needed 08/03/2016 08/17/2016 Inactive fentanyl 100 mcg/hr transdermal patch RxNorm: 720393 1 Patch TD Q72H 08/03/2016 08/31/2016 Inactive nystatin 100,000 unit/gram topical powder RxNorm: 527903 APPLY UNDER BREASTS TWICE DAILY FOR YEAST SKIN INFECTION AND APPLY TO UNDERARM AND ABDOMINAL FOLDS AND PERIAREA TWICE DAILY 07/17/2016 09/14/2016 Inactive 07/17/2016 3:56:54 PM fentanyl 100 mcg/hr transdermal patch RxNorm: 029927 1 Patch TD Q72H 07/15/2016 08/02/2016 Inactive lisinopril 20 mg tablet RxNorm: 629857 1 Tablet(s) PO daily 07/02/2016 03/28/2017 Inactive hydrocodone 10 mg-acetaminophen 325 mg tablet RxNorm: 831469 1-2 Tablet(s) PO Q6 as needed 07/01/2016 07/15/2016 Inactive Xarelto 20 mg tablet RxNorm: 9934541 Tablet(s) TAKE 1 TABLET VIA PEG TUBE AT BEDTIME 06/19/2016 04/14/2017 Inactive fentanyl 100 mcg/hr transdermal patch RxNorm: 377057 1 Patch TD Q72H 06/17/2016 07/14/2016 Inactive nystatin 100,000 unit/gram topical powder RxNorm: 607827 APPLY TO UNDER BREASTS TWICE DAILY FOR YEAST SKIN INFECTION AND APPLY TO UNDERARM AND ABDOMINAL FOLDS AND PERIAREA TWICE DAILY 06/15/2016 07/16/2016 Inactive Generic For:MYCOSTATIN 100,000 UNITS/GM PW 06/15/2016 12:28:26 PM fentanyl 100 mcg/hr transdermal patch RxNorm: 090939 1 Patch TD Q72H 06/05/2016 06/16/2016 Inactive hydrocodone 10 mg-acetaminophen 325 mg tablet RxNorm: 561926 1-2 Tablet(s) PO Q6 as needed 06/02/2016 06/16/2016 Inactive Probiotic Blend 2 million cell-50 mg capsule RxNorm: 1 Capsule(s) PO BID 05/13/2016 05/19/2016 Inactive nitrofurantoin 100 mg capsule RxNorm: 646805 1 Capsule(s) PO BID 05/13/2016 05/19/2016 Inactive nitrofurantoin 100 mg capsule RxNorm: 063345 1 Capsule(s) PO BID 05/13/2016 05/12/2016 Inactive fentanyl 75 mcg/hr transdermal patch RxNorm: 438110 1 Patch TD Q72H 05/13/2016 06/04/2016 Inactive Keflex 500 mg capsule RxNorm: 033342 1 Capsule(s) PO TID 05/07/2016 05/13/2016 Inactive Patient at [facility] Keflex 500 mg capsule RxNorm: 886983 1 Capsule(s) PO TID 05/07/2016 05/06/2016 Inactive hydrocodone 10 mg-acetaminophen 325 mg tablet RxNorm: 293412 1-2 Tablet(s) PO Q6 as needed 05/04/2016 06/01/2016 Inactive hydrochlorothiazide 25 mg tablet RxNorm: 992585 Tablet(s) GIVE 1 TABLET VIA PEG TUBE ONCE A DAY 04/29/2016 11/24/2016 Inactive hydrochlorothiazide 25 mg tablet RxNorm: 705733 GIVE 1 TABLET VIA PEG TUBE ONCE A DAY 04/22/2016 04/28/2016 Inactive Generic For:HYDRODIURIL 25 MG TABLET refill request fentanyl 75 mcg/hr transdermal patch RxNorm: 072964 1 Patch TD Q72H 04/17/2016 05/12/2016 Inactive Xarelto 20 mg tablet RxNorm: 8324909 TAKE 1 TABLET VIA PEG TUBE AT BEDTIME 04/16/2016 06/14/2016 Inactive 04/16/2016 9:08:52 AM citalopram 40 mg tablet RxNorm: 106251 1 Tablet(s) PO daily 04/02/2016 02/25/2017 Inactive citalopram 40 mg tablet RxNorm: 884668 1 Tablet(s) PO daily 03/27/2016 04/01/2016 Inactive hydrocodone 10 mg-acetaminophen 325 mg tablet RxNorm: 287422 1-2 Tablet(s) PO Q6 as needed 03/27/2016 04/25/2016 Inactive fentanyl 75 mcg/hr transdermal patch RxNorm: 315016 1 Patch TD Q72H 03/18/2016 04/16/2016 Inactive hydrocodone 10 mg-acetaminophen 325 mg tablet RxNorm: 186461 1-2 Tablet(s) PO Q6 as needed 03/11/2016 03/26/2016 Inactive citalopram 40 mg tablet RxNorm: 592564 1 Tablet(s) PO daily 03/04/2016 03/26/2016 Inactive Levemir FlexTouch U-100 Insulin 100 unit/mL (3 mL) subcutaneous pen RxNorm: 660869 20 Unit(s) SQ BID 03/02/2016 09/27/2016 Inactive lisinopril 20 mg tablet RxNorm: 453350 1 Tablet(s) PO daily 02/25/2016 07/01/2016 Inactive Ativan 0.5 mg tablet RxNorm: 303186 1 Tablet(s) PO Q4H as needed 02/18/2016 04/14/2017 Inactive Xarelto 20 mg tablet RxNorm: 6251571 TAKE 1 TABLET VIA PEG TUBE AT BEDTIME 02/12/2016 04/11/2016 Inactive 02/12/2016 9:08:22 AM hydrocodone 10 mg-acetaminophen 325 mg tablet RxNorm: 141509 1-2 Tablet(s) PO Q6 as needed 02/12/2016 03/10/2016 Inactive fentanyl 75 mcg/hr transdermal patch RxNorm: 586346 1 Patch TD Q72H 02/11/2016 03/11/2016 Inactive citalopram 20 mg tablet RxNorm: 813881 1 Tablet(s) PO daily 01/28/2016 03/03/2016 Inactive fentanyl 75 mcg/hr transdermal patch RxNorm: 549024 1 TD Q72H 01/17/2016 02/10/2016 Inactive hydrocodone 10 mg-acetaminophen 325 mg tablet RxNorm: 854810 1-2 Tablet(s) PO Q6 as needed 01/07/2016 02/05/2016 Inactive fentanyl 50 mcg/hr transdermal patch RxNorm: 793634 1 TD Q72H 01/01/2016 01/16/2016 Inactive fentanyl 50 mcg/hr transdermal patch RxNorm: 062237 1 TD q 3 days 12/26/2015 12/31/2015 Inactive Xarelto 20 mg tablet RxNorm: 5301977 TAKE 1 TABLET VIA PEG TUBE AT BEDTIME 12/17/2015 02/11/2016 Inactive 12/16/2015 3:27:57 PM12/14/2015 9:45:17 AM hydrocodone 10 mg-acetaminophen 325 mg tablet RxNorm: 666915 1-2 Tablet(s) PO Q6 as needed 12/06/2015 01/04/2016 Inactive fentanyl 50 mcg/hr transdermal patch RxNorm: 768489 1 TD q 3 days 12/06/2015 12/25/2015 Inactive fentanyl 25 mcg/hr transdermal patch RxNorm: 744007 1 TD q 3 days 11/18/2015 12/05/2015 Inactive Zithromax Z-Eliu 250 mg tablet RxNorm: 498701 1 Tablet(s) PO UD 10/09/2015 02/26/2016 Inactive z pack as directed- please write out instructions- pt at [facility] nystatin 100,000 unit/gram topical powder RxNorm: 777325 APPLY TO UNDER BREASTS TWICE DAILY FOR YEAST SKIN INFECTION AND APPLY TO UNDERARM AND ABDOMINAL FOLDS AND PERIAREA TWICE DAILY 10/07/2015 12/05/2015 Inactive Generic For:MYCOSTATIN 100,000 UNITS/GM PW 10/05/2015 12:07:35 PM fentanyl 25 mcg/hr transdermal patch RxNorm: 204435 1 TD q 3 days 10/03/2015 11/01/2015 Inactive fentanyl 25 mcg/hr transdermal patch RxNorm: 614363 1 TD q 3 days 09/27/2015 10/02/2015 Inactive fentanyl 25 mcg/hr transdermal patch RxNorm: 948442 1 TD q 3 days 09/17/2015 09/26/2015 Inactive fentanyl 25 mcg/hr transdermal patch RxNorm: 018137 1 TD q 3 days 08/30/2015 09/16/2015 Inactive hydrocodone 5 mg-acetaminophen 325 mg tablet RxNorm: 464008 1 Tablet(s) PO Q6 as needed 08/30/2015 09/28/2015 Inactive Diflucan 100 mg tablet RxNorm: 909546 1 Tablet(s) Miscellaneous per peg daily 07/29/2015 08/04/2015 Inactive fentanyl 25 mcg/hr transdermal patch RxNorm: 593464 1 TD q 3 days 07/18/2015 08/29/2015 Inactive hydrocodone 5 mg-acetaminophen 325 mg tablet RxNorm: 760393 1 Tablet(s) PO Q6 as needed 07/18/2015 08/29/2015 Inactive Diflucan 100 mg tablet RxNorm: 934188 1 Tablet(s) Miscellaneous per peg daily 06/17/2015 06/23/2015 Inactive Senna-S 8.6 mg-50 mg tablet RxNorm: 670968 1 Tablet(s) PO daily as needed constipation No Start Date Active Dulcolax (bisacodyl) 10 mg rectal suppository RxNorm: 784861 1 Suppository RTL daily as needed constipation No Start Date Active polyethylene glycol 3350 17 gram/dose oral powder RxNorm: 398224 17 Gram(s) PO daily as needed constipation No Start Date Active baclofen 10 mg tablet RxNorm: 030522 1 Tablet(s) PO TID No Start Date 09/30/2016 Inactive Ativan 0.5 mg tablet RxNorm: 404928 1 Tablet(s) PO Q4H as needed No Start Date 02/17/2016 Inactive ranitidine 150 mg tablet RxNorm: 032888 1 Tablet(s) PO daily No Start Date 08/24/2016 Inactive carvedilol 3.125 mg tablet RxNorm: 740955 1 Tablet(s) PO daily No Start Date 09/29/2016 Inactive citalopram 40 mg tablet RxNorm: 933686 1 Tablet(s) PO daily No Start Date 01/27/2016 Inactive Probiotic Blend oral RxNorm: oral No Start Date 05/12/2016 Inactive hydrochlorothiazide 25 mg tablet RxNorm: 508755 1 Tablet(s) PO daily No Start Date 04/21/2016 Inactive albuterol sulfate concentrate 5 mg/mL(0.5 %) solution for nebulization RxNorm: 334335 1 Vial INH daily as needed congestion No Start Date 03/17/2018 Inactive Levemir FlexTouch 100 unit/mL (3 mL) subcutaneous insulin pen RxNorm: 101433 10 Unit(s) SQ BID No Start Date 03/01/2016 Inactive Zithromax Z-Eliu 250 mg tablet RxNorm: 565830 1 Tablet(s) PO UD No Start Date 10/08/2015 Inactive z pack as directed- please write out instructions- pt at [facility] nystatin 100,000 unit/gram topical powder RxNorm: 130017 Gram(s) TOP BID as needed No Start Date 10/06/2015 Inactive pravastatin 40 mg tablet RxNorm: 950915 Tablet(s) PO daily No Start Date 04/14/2017 Inactive lorazepam 0.5 mg tablet RxNorm: 462742 1/2 Tablet(s) PO BID No Start Date 05/02/2017 Inactive Xarelto 20 mg tablet RxNorm: 2895683 1 Tablet(s) PO daily No Start Date 12/16/2015 Inactive fentanyl 25 mcg/hr transdermal patch RxNorm: 440133 1 TD q 3 days No Start Date 07/17/2015 Inactive lisinopril 20 mg tablet RxNorm: 672660 1 Tablet(s) PO daily No Start Date 02/24/2016 Inactive hydrocodone 5 mg-acetaminophen 325 mg tablet RxNorm: 476060 1 Tablet(s) PO Q6 as needed No Start Date 07/17/2015 Inactive citalopram 40 mg tablet RxNorm: 426391 1 Tablet(s) PO daily No Start Date 03/03/2016 Inactive hyoscyamine 0.125 mg disintegrating tablet RxNorm: 2918195 1-2 Tablet(s) PO Q8 as needed No [...] not specified ICD-10: N39.0 ICD-9: 599.0 09/17/2016 Cervicalgia ICD-10: M54.2 ICD-9: 723.1 07/18/2015 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 ICD-9: 438.82 07/18/2015 Impacted cerumen, right ear ICD-10: H61.21 ICD-9: 389.8 07/18/2015 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 ICD-9: V44.1 [...] Item Item Code Result Date A1C Frequency Hpj250 A1CF 92630-7 Last A1C performed at [facility] [place] lab on: [...] 30.7 pg 02/14/2018 Cbc With Differential Ord2 [place]% 7.4 % 02/14/2018 Cbc With Differential Ord2 [...] 2.14 K/ul 02/14/2018 Cbc With Differential Ord2 [place] ABS# 0.5 K/ul 02/14/2018 Cbc With Differential Ord2 Eos ABS# 0.3 K/ul 02/14/2018 Cbc With Differential Ord2 Baso ABS# 0.0 K/ul 02/14/2018 Comp Metabolic Mpf692 NA 142 mEq/L 02/14/2018 Comp Metabolic Pvz403 K 4.5 mEq/L 02/14/2018 Comp Metabolic Uve765 CL 97 mEq/L 02/14/2018 Comp Metabolic Ueo364 CO2 41.0 mEq/L 02/14/2018 Comp Metabolic Gcr920 ANION GAP 9 02/14/2018 Comp Metabolic Mje056 GLUCOSE 111 mg/dL 02/14/2018 Comp Metabolic Uaq520 Creat 0.6 mg/dL 02/14/2018 Comp Metabolic Icn031 eGFR 108 ml/min/1.73m2 02/14/2018 Comp Metabolic Oca238 BUN 32 mg/dL 02/14/2018 Comp Metabolic Ajn667 B/C Ratio 54.2 Ratio 02/14/2018 Comp Metabolic Kby143 CALCIUM 8.9 mg/dL 02/14/2018 Comp Metabolic Pvb506 ALK PHOS 81 U/L 02/14/2018 Comp Metabolic Eip379 AST(SGOT) 14 U/L 02/14/2018 Comp Metabolic Nyp282 ALT(SGPT) 11 U/L 02/14/2018 Comp Metabolic Cxc569 BILI T 0.3 mg/dL 02/14/2018 Comp Metabolic Khm810 ALBUMIN 3.4 g/dL 02/14/2018 Comp Metabolic Sxi790 TPRO 6.3 g/dL 02/14/2018 Comp Metabolic Bgo461 GLOB 2.9 g/dL 02/14/2018 Comp Metabolic Oqb748 A/G Ratio 1.2 Ratio 02/14/2018 Comp Metabolic Zxn873 Osmo 291 mOsmo 02/14/2018 %Hba1C Sli717 % HbA1c 08098- 6 5.5 % 02/14/2018 %Hba1C Hmj080 Gluc Ave 111 mg/dL 02/14/2018 Prealbumin 979252 PREALBUMIN 27 mg/dL 11/24/2017 %Hba1C Ynf530 % HbA1c 17639- 6 5.5 % 11/04/2017 %Hba1C Azq938 Gluc Ave 111 mg/dL 11/04/2017 Culture Urine [id number] URINE CULTURE SEE NOTES 10/04/2017 Culture Urine [id number] Continued Results 10/04/2017 Urine Culture Ucult Complete [...] Ord28 U-Com Culture to follow 10/01/2017 B12 Ymt688 B12 >1500.00 pg/ml 02/19/2017 %Hba1C Rsg391 % HbA1c 38950- 6 5.2 % 02/02/2017 %Hba1C Uni529 Gluc Ave 103 mg/dL 02/02/2017 Comp Metabolic Sks174 NA 138 mEq/L 02/02/2017 Comp Metabolic Hex120 K 4.5 mEq/L 02/02/2017 Comp Metabolic Bws511 CL 98 mEq/L 02/02/2017 Comp Metabolic Rpb035 CO2 37.0 mEq/L 02/02/2017 Comp Metabolic Hsh400 ANION GAP 8 02/02/2017 Comp Metabolic Jsz450 GLUCOSE 94 mg/dL 02/02/2017 Comp Metabolic Myu041 Creat 0.7 mg/dL 02/02/2017 Comp Metabolic Tuw966 eGFR 88 ml/min/1.73m2 02/02/2017 Comp Metabolic Wxe314 BUN 36 mg/dL 02/02/2017 Comp Metabolic Irk369 B/C Ratio 50.7 Ratio 02/02/2017 Comp Metabolic Fzn767 CALCIUM 9.0 mg/dL 02/02/2017 Comp Metabolic Wiw073 ALK PHOS 78 U/L 02/02/2017 Comp Metabolic Tld525 AST(SGOT) 22 U/L 02/02/2017 Comp Metabolic Rxi308 ALT(SGPT) 28 U/L 02/02/2017 Comp Metabolic Hse070 BILI T 0.3 mg/dL 02/02/2017 Comp Metabolic Nty612 ALBUMIN 3.3 g/dL 02/02/2017 Comp Metabolic Ybw657 TPRO 5.9 g/dL 02/02/2017 Comp Metabolic Bbd880 GLOB 2.6 g/dL 02/02/2017 Comp Metabolic Cya607 A/G Ratio 1.3 Ratio 02/02/2017 Comp Metabolic Yyo419 Osmo 284 mOsmo 02/02/2017 Cbc With Differential Ord2 WBC 7.26 [...] 31.5 pg 02/02/2017 Cbc With Differential Ord2 [place]% 8.3 % 02/02/2017 Cbc With Differential Ord2 [...] 2.28 K/ul 02/02/2017 Cbc With Differential Ord2 [place] ABS# 0.6 K/ul 02/02/2017 Cbc With Differential Ord2 Eos ABS# 0.4 K/ul 02/02/2017 Cbc With Differential Ord2 Baso ABS# 0.0 K/ul 02/02/2017 %Hba1C Skh620 % HbA1c 85100- 6 5.0 % 10/29/2016 %Hba1C Cxf371 Gluc Ave 97 mg/dL 10/29/2016 Culture Urine [id number] URINE CULTURE SEE NOTES 09/21/2016 Culture Urine [id number] Continued Results 09/21/2016 Urine Culture Ucult Complete [...] 32.4 pg 07/30/2016 Cbc With Differential Ord2 [place]% 7.2 % 07/30/2016 Cbc With Differential Ord2 [...] 2.69 K/ul 07/30/2016 Cbc With Differential Ord2 [place] ABS# 0.5 K/ul 07/30/2016 Cbc With Differential Ord2 Eos ABS# 0.5 K/ul 07/30/2016 Cbc With Differential Ord2 Baso ABS# 0.0 K/ul 07/30/2016 Comp Metabolic Zzg993 NA 141 mEq/L 07/30/2016 Comp Metabolic Ava882 K 4.3 mEq/L 07/30/2016 Comp Metabolic Aqb940 CL 100 mEq/L 07/30/2016 Comp Metabolic Kzg405 CO2 33.0 mEq/L 07/30/2016 Comp Metabolic Lpv291 ANION GAP 12 07/30/2016 Comp Metabolic Nff300 GLUCOSE 64 mg/dL 07/30/2016 Comp Metabolic Cjd191 Creat 0.5 mg/dL 07/30/2016 Comp Metabolic Asu346 eGFR 126 ml/min/1.73m2 07/30/2016 Comp Metabolic Ymc850 BUN 25 mg/dL 07/30/2016 Comp Metabolic Esw016 B/C Ratio 48.1 Ratio 07/30/2016 Comp Metabolic Xqs095 CALCIUM 8.9 mg/dL 07/30/2016 Comp Metabolic Cdc852 ALK PHOS 90 U/L 07/30/2016 Comp Metabolic Blf688 AST(SGOT) 22 U/L 07/30/2016 Comp Metabolic Vin029 ALT(SGPT) 36 U/L 07/30/2016 Comp Metabolic Qus966 BILI T 0.3 mg/dL 07/30/2016 Comp Metabolic Pym712 ALBUMIN 3.4 g/dL 07/30/2016 Comp Metabolic Xiw942 TPRO 6.0 g/dL 07/30/2016 Comp Metabolic Jnx813 GLOB 2.7 g/dL 07/30/2016 Comp Metabolic Aly775 A/G Ratio 1.3 Ratio 07/30/2016 Comp Metabolic Iod916 Osmo 284 mOsmo 07/30/2016 A1C Frequency Exe155 A1CF 77099-1 Last A1C performed at [facility] [place] lab on: 05-12-2016 07/30/2016 %Hba1C Gil398 % HbA1c 42398- 6 5.2 % 05/12/2016 %Hba1C Pke531 Gluc Ave 103 mg/dL 05/12/2016 Culture Urine [id number] URINE CULTURE SEE NOTES 05/11/2016 Urine Culture [...] U-Com Culture to follow 05/06/2016 Culture Urine [id number] URINE CULTURE SEE NOTES 03/17/2016 Culture Urine [id number] Continued Results 03/17/2016 Urine Culture Ucult Complete [...] 32.0 pg 02/11/2016 Cbc With Differential Ord2 [place]% 9.1 % 02/11/2016 Cbc With Differential Ord2 [...] 2.59 K/ul 02/11/2016 Cbc With Differential Ord2 [place] ABS# 0.6 K/ul 02/11/2016 Cbc With Differential Ord2 Eos ABS# 0.3 K/ul 02/11/2016 Cbc With Differential Ord2 Baso ABS# 0.0 K/ul 02/11/2016 Comp Metabolic Kub452 NA 137 mEq/L 02/11/2016 Comp Metabolic Wjc965 K 4.4 mEq/L 02/11/2016 Comp Metabolic Jmw654 CL 100 mEq/L 02/11/2016 Comp Metabolic Ckv405 CO2 25.0 mEq/L 02/11/2016 Comp Metabolic Twe245 ANION GAP 16 02/11/2016 Comp Metabolic Qwv647 GLUCOSE 99 mg/dL 02/11/2016 Comp Metabolic Tde092 Creat 0.6 mg/dL 02/11/2016 Comp Metabolic Kfi747 eGFR 99 ml/min/1.73m2 02/11/2016 Comp Metabolic Pjw405 BUN 27 mg/dL 02/11/2016 Comp Metabolic Rby665 B/C Ratio 42.2 Ratio 02/11/2016 Comp Metabolic Fxx010 CALCIUM 9.2 mg/dL 02/11/2016 Comp Metabolic Tlu843 ALK PHOS 74 U/L 02/11/2016 Comp Metabolic Zvy069 AST(SGOT) 24 U/L 02/11/2016 Comp Metabolic Izo052 ALT(SGPT) 26 U/L 02/11/2016 Comp Metabolic Rxh576 BILI T 0.5 mg/dL 02/11/2016 Comp Metabolic Qpn158 ALBUMIN 3.5 g/dL 02/11/2016 Comp Metabolic Uli214 TPRO 6.2 g/dL 02/11/2016 Comp Metabolic Btw435 GLOB 2.7 g/dL 02/11/2016 Comp Metabolic Ftc087 A/G Ratio 1.3 Ratio 02/11/2016 Comp Metabolic Jvb973 Osmo 279 mOsmo 02/11/2016 Review of Systems [...] 1: 128/86 Code: 8480-6 BMI: 31.4 Code: 62541-5 Heart Rate 1: 72 bpm Height: 5'1" Weight: 166 lbs 06/17/2015 Blood Pressure 1: 110/78 Code: 8480-6 BMI: 33.3 Code: 08378-0 Heart Rate 1: 74 bpm Height: 5'1" [...] Present Encounters Encounter Performer Location Codes Date ([id number]) [id number] EST. PATIENT, LEVEL IV Diagnosis: Essential (primary) hypertension[ICD10: I10] Diagnosis: Chronic pain syndrome[ICD10: G89.4] Diagnosis: Type 2 diabetes mellitus without complications[ICD10: E11.9] Carlyn Everett MD, [facility] CPT-4: 94289 05/17/2018 ([id number]) 92172 EST. PATIENT, LEVEL IV Diagnosis: Cough[ICD10: R05] Diagnosis: Pneumonia, unspecified organism[ICD10: J18.9] Diagnosis: Pain in right knee[ICD10: M25.561] Carlyn Everett MD, [facility] CPT- 4: 27419 03/18/2018 ([id number]) 66713 EST. PATIENT, LEVEL IV Diagnosis: Type 2 diabetes mellitus without complications[ICD10: E11.9] Diagnosis: Essential (primary) hypertension[ICD10: I10] Diagnosis: Chronic pain syndrome[ICD10: G89.4] Carlyn Everett MD, [facility] CPT-4: 77287 01/07/2018 ([id number]) 66053 EST. PATIENT, LEVEL IV Diagnosis: Essential (primary) hypertension[ICD10: I10] Diagnosis: Type 2 diabetes mellitus without complications[ICD10: E11.9] Carlyn Everett MD, [facility] CPT-4: 03619 2017 ([id number]) 64448 EST. PATIENT, LEVEL IV Diagnosis: Type 2 diabetes mellitus with hyperglycemia[ICD10: E11.65] Diagnosis: Essential (primary) hypertension[ICD10: I10] Diagnosis: Pain in left shoulder[ICD10: M25.512] Diagnosis: Pain in right shoulder[ICD10: M25.511] Diagnosis: Pain in left knee[ICD10: M25.562] Diagnosis: Pain in right knee[ICD10: M25.561] Vonda Everett MD, [facility] CPT- 4: 21016 09/09/2017 [id number] EST. PATIENT, LEVEL IV Diagnosis: Essential (primary) hypertension[ICD10: I10] Diagnosis: Type 2 diabetes mellitus with hyperglycemia[ICD10: E11.65] Diagnosis: Low back pain[ICD10: M54.5] Sunitha Everett MD, [facility] CPT-4: 37911 06/08/2017 ([id number]) 09879 EST. PATIENT, LEVEL IV Diagnosis: Essential (primary) hypertension[ICD10: I10] Diagnosis: Type 2 diabetes mellitus with hyperglycemia[ICD10: E11.65] Diagnosis: Low back pain[ICD10: M54.5] Sunitha Everett MD, [facility] CPT-4: 54294 04/15/2017 ([id number]) 02593 EST. PATIENT, LEVEL IV Diagnosis: Essential (primary) hypertension[ICD10: I10] Diagnosis: Type 2 diabetes mellitus with hyperglycemia[ICD10: E11.65] Diagnosis: Low back pain[ICD10: M54.5] Vonda Everett MD, [facility] CPT-4: 34878 02/16/2017 [id number] EST. 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 CPT-4: 45279 11/09/2016 [id number]) 33923 EST. 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 CPT- 4: 54564 06/17/2015 Plan of Care Planned Activity Notes [...] controlled with fentanyl patches-continue to monitor. 05/17/2018 Patient Education: Patient Medication Summary Completed 05/17/2018 Patient Education: Hypertension Completed 05/17/2018 Patient Education: Diabetes Completed 05/17/2018 Appointment: Carlyn Higginbotham WPtel: [phone] [phone] [place] (15 min) Moderate 04/07/2018 Visit Plan: Pneumonia - Pt has been diagnosed with pneumonia by physical exam. A chest xray has been ordered as have antibiotics. The pt is aware of the diagnosis and the need for acute treatment of this illness. Right knee pain -xray knee-rx for voltaren gel 03/18/2018 Appointment: Carlyn Higginbotham WPtel: [phone] [place] (30 min) Complex 03/18/2018 Patient Education: Patient Medication Summary Completed 03/18/2018 Appointment: [facility]both[facility] [phone] [phone] [place] (30 min) Complex 03/17/2018 Appointment: Carlyn Higginbotham WPtel: [phone] [place] (15 min) Moderate 03/10/2018 Appointment: Carlyn Higginbotham WPtel: [phone] [place] (15 min) Moderate 02/08/2018 Visit Plan: DM -decrease levemir to 4 units daily -monitor blood sugars JOT-xfrldkgrmv-fk changes Chronic pain -well controlled with fentanyl patch -no changes at this time 01/07/2018 Appointment: Carlyn Higginbotham WPtel: [phone] [place] (15 min) Moderate 01/07/2018 Patient Education: [...] HS 2017 Appointment: Carlyn Higginbotham WPtel: [phone] [phone] (15 min) Moderate 2017 Patient Education: Patient [...] 175mcg. 09/09/2017 [phone] [facility] [place] ([facility] min) Moderate 09/09/2017 Patient [...] PRN pain medications - will have senior living fax over PRN medication administration record. 06/08/2017 Appointment: [facility] [phone] [facility] (30 min) Complex 06/08/2017 Patient Education: [...] of over-medication. 04/15/2017 Appointment: [facility] [phone] [facility] (30 min) Complex 04/15/2017 Patient Education: [...] today. 02/16/2017 App[facility]ment[facility] [phone] [facility] (15 min) Moderate 02/16/2017 [...] concerns. 11/09/2016 Appointment: [facility] [phone] [facility] (30 min) Complex 11/09/2016 Patient Education: Patient Medication Summary Completed 11/09/2016 Care Plan: Referral Order SNOMED-CT : [id number] Pending 11/09/2016 Patient Education: Patient Medication Summary [...] Follow up weight in 1 month Neck wrhb-luhbipagknl-Jdtb PT focus neck/upper body Right earache-cerumen removed with water pick today in the office 07/18/2015 Appointment: (30 min) Complex 07/18/2015 Patient Education: Patient Medication Summary Completed 07/18/2015 Patient Education: Obesity Completed 07/18/2015 Patient Education: .Cervicalgia Neck Pain Completed 07/18/2015 [facility] [phone] [facility] [place] Referral Completed 06/25/2015 Visit Plan: Hypertension [...] normal liver response to medications. [facility] post stroke - left sided weakness, neck stiffness, upper extremity weakness Diabetes Mellitus - controlled - per family report - check labs this week, get report from and [facility]. I spent over an hour with the patient in direct contact. 06/17/2015 Appointment: [facility] [phone] [facility] [place] New Patient 06/17/2015 Patient Education: Patient Medication Summary Completed 06/17/2015 Patient Education: Obesity Completed 06/17/2015 Patient Education: Hypertension Completed 06/17/2015 Care Plan: Referral Order SNOMED-CT : [id number] Ordered 06/17/2015 Referral: Jorge Luis Carroll Referral Initiated [facility] W[facility]: [phone] [facility] [place] Referral Appointment Requested Instructions Comment . [...] to 4 units daily -monitor blood sugars GWE-dtdwifpqtw-pn changes Chronic pain -well controlled with fentanyl patch -no changes at this time . Hypertension - too well controlled - [...] PRN pain medications - will have senior living fax over PRN medication administration record. Add 1 scoop of whey protein from [...] Follow up weight in 1 month Neck qnss-jukinguxmbh-Odll PT focus neck/upper body Right earache-cerumen removed [...] medications. referral to [facility] therapy for post stroke - left sided weakness, neck stiffness, upper extremity weakness Diabetes Mellitus - controlled - per family report - check labs this week, get report from and [facility]. I spent over an hour with the patient in direct contact.
--- OUTSIDE RECORDS SUMMARY | 2018-08-09 11:34 | XMS REPORT | CCD ---
Author Author Vonda Everett Organization Vonda Everett MD, [facility] Address [address] [place] [address] Phone Care Team Providers Care Stiff Leg Operator Name Role Phone PP Unavailable CCM Unavailable Summary Purpose Interface Exchange Insurance Providers Payer name Policy type / Coverage type Covered democrat ID Effective Begin Date Effective End Date WPS Medicare Part B Medicare Part B [id number] Unknown Unknown [employer] Medicare Part B [id number] Unknown Unknown Family history Father Diagnosis Age At Onset Arthritis Unknown Hypertension Unknown Mother Diagnosis Age At Onset Diabetes mellitus Type 2 Unknown Depression Unknown Arthritis Unknown Stroke Unknown Hypertension Unknown Sister Diagnosis Age At Onset Colon cancer Unknown Social History Social History Element Codes Description Effective Dates Marital status Unknown Maurice 01/07/2018 Living arrangements Unknown Residential [facility] 04/15/2017 Number of children Unknown 3 06/17/2015 Employment Unknown Retired 06/17/[address]: 3050688 Quit over 10 years ago 15+ 06/17/[address]: 766383514 Never drinks alcohol 06/17/2015 Allergies, Adverse Reactions, [...] Fill Instructions citalopram 20 mg tablet RxNorm: 846203 1 Tablet(s) PO daily 05/17/2018 04/11/2019 Active hydrocodone 10 mg-acetaminophen 325 mg tablet RxNorm: 343302 2 Tablet(s) PO scheduled TID 04/19/2018 05/18/2018 Active Not to exceed 3gm/24hr acetaminophen lorazepam 0.5 mg tablet RxNorm: 793662 1 Tablet(s) PO BID and 1 tab q 6 hours prn 04/07/2018 No Stop Date Active hyoscyamine 0.125 mg disintegrating tablet RxNorm: 7780574 Tablet(s) 1-2 Tablet(s) PO Q8 as needed 03/31/2018 No Stop Date Active Duragesic 75 mcg/hr transdermal patch RxNorm: 943863 1 Patch TD Q72H 03/31/2018 04/29/2018 Inactive fentanyl 100 mcg/hr transdermal patch RxNorm: 110108 1 Patch TD Q72H 03/31/2018 04/29/2018 Inactive carvedilol 3.125 mg tablet RxNorm: 233584 Tablet(s) GIVE 1 TABLET VIA PEG TUBE 2 TIMES A DAY 03/30/2018 06/27/2018 Active Generic For:COREG 3.125MG 10/22/2017 9:23:30 AM Voltaren 1 % topical gel RxNorm: 502358 APPLY 4 GRAMS TO RIGHT KNEE FOUR TIMES DAILY 03/30/2018 04/22/2018 Inactive Generic For:VOLTAREN GEL 1% 03/30/2018 11:14:57 AM hydrocodone 10 mg-acetaminophen 325 mg tablet RxNorm: 899177 2 Tablet(s) PO scheduled TID 03/23/2018 04/18/2018 Inactive Not to exceed 3gm/24hr acetaminophen albuterol sulfate concentrate 5 mg/mL(0.5 %) solution for nebulization RxNorm: 882196 1 Vial Milliliter(s) INH TID PRN as needed congestion 03/18/2018 No Stop Date Active cefdinir 300 mg capsule RxNorm: 076364 1 Capsule(s) PO BID 03/18/2018 03/24/2018 Inactive Zithromax Z-Eliu 250 mg tablet RxNorm: 721610 Tablet(s) PO 03/18/2018 05/16/2018 Inactive Voltaren 1 % topical gel RxNorm: 695623 4 Gram(s) TOP QID 03/18/2018 03/29/2018 Inactive hydrochlorothiazide 25 mg tablet RxNorm: 699930 GIVE 1 TABLET VIA PEG TUBE ONCE DAILY 03/11/2018 09/06/2018 Active Generic For:HYDRODIURIL 25 MG TABLET 03/11/2018 9:15:32 AM fentanyl 100 mcg/hr transdermal patch RxNorm: 310509 1 Patch TD Q72H 03/02/2018 03/30/2018 Inactive Duragesic 75 mcg/hr transdermal patch RxNorm: 932166 1 Patch TD Q72H 03/02/2018 03/30/2018 Inactive hydrocodone 10 mg-acetaminophen 325 mg tablet RxNorm: 072311 2 Tablet(s) PO scheduled TID 02/18/2018 03/22/2018 Inactive Not to exceed 3gm/24hr acetaminophen hyoscyamine 0.125 mg disintegrating tablet RxNorm: 3488583 Tablet(s) 1-2 Tablet(s) PO Q8 as needed 02/08/2018 03/30/2018 Inactive fentanyl 100 mcg/hr transdermal patch RxNorm: 250439 1 Patch TD Q72H 02/04/2018 03/01/2018 Inactive hydrocodone 10 mg-acetaminophen 325 mg tablet RxNorm: 268256 2 Tablet(s) PO scheduled TID 02/04/2018 02/17/2018 Inactive Not to exceed 3gm/24hr acetaminophen Duragesic 75 mcg/hr transdermal patch RxNorm: 526269 1 Patch TD Q72H 02/04/2018 03/01/2018 Inactive Levemir FlexTouch U-100 Insulin 100 unit/mL (3 mL) subcutaneous pen RxNorm: 534473 4 Unit(s) SQ QHS 01/07/2018 No Stop Date Active Duragesic 75 mcg/hr transdermal patch RxNorm: 217873 1 Patch TD Q72H 01/07/2018 02/03/2018 Inactive fentanyl 100 mcg/hr transdermal patch RxNorm: 613776 1 Patch TD Q72H 01/07/2018 02/03/2018 Inactive hydrocodone 10 mg-acetaminophen 325 mg tablet RxNorm: 055037 2 Tablet(s) PO scheduled TID 01/05/2018 02/03/2018 Inactive Not to exceed 3gm/24hr acetaminophen hydrocodone 10 mg-acetaminophen 325 mg tablet RxNorm: 181760 2 Tablet(s) PO scheduled TID and 1 tab q 4 as needed 01/04/2018 01/04/2018 Inactive Not to exceed 3gm/24hr acetaminophen cyanocobalamin (vit B-12) 1,000 mcg tablet RxNorm: 901055 1 Tablet(s) PO daily 12/28/2017 11/22/2018 Active baclofen 10 mg tablet RxNorm: 957873 Tablet(s) TAKE 1 TABLET THREE TIMES DAILY VIA STOMACH TUBE 12/27/2017 05/25/2018 Active 10/07/2017 5:36:15 PM 10/07/2017 5:36:13 PM N O T I C E Last quantity doesn't match original quantity Duragesic 75 mcg/hr transdermal patch RxNorm: 790799 1 Patch TD Q72H 12/22/2017 01/06/2018 Inactive fentanyl 100 mcg/hr transdermal patch RxNorm: 871919 1 Patch TD Q72H 12/22/2017 01/06/2018 Inactive hydrocodone 10 mg-acetaminophen 325 mg tablet RxNorm: 508982 2 Tablet(s) PO scheduled TID and 1 tab q 4 as needed 12/20/2017 01/03/2018 Inactive Not to exceed 3gm/24hr acetaminophen hyoscyamine 0.125 mg disintegrating tablet RxNorm: 2540821 1-2 Tablet(s) PO Q8 as needed 12/14/2017 02/07/2018 Inactive Duragesic 75 mcg/hr transdermal patch RxNorm: 857931 1 Patch TD Q72H 12/06/2017 12/21/2017 Inactive fentanyl 100 mcg/hr transdermal patch RxNorm: 908831 1 Patch TD Q72H 12/06/2017 12/21/2017 Inactive hydrocodone 10 mg-acetaminophen 325 mg tablet RxNorm: 316414 2 Tablet(s) PO scheduled TID and 1 tab q 4 as needed 11/29/2017 12/19/2017 Inactive Not to exceed 3gm/24hr acetaminophen Duragesic 75 mcg/hr transdermal patch RxNorm: 272094 1 Patch TD Q72H 11/11/2017 12/05/2017 Inactive hydrocodone 10 mg-acetaminophen 325 mg tablet RxNorm: 350629 2 Tablet(s) PO scheduled TID and 1 tab q 4 as needed 11/09/2017 11/28/2017 Inactive Not to exceed 3gm/24hr acetaminophen Levemir FlexTouch U-100 Insulin 100 unit/mL (3 mL) subcutaneous pen RxNorm: 134844 8 Unit(s) SQ QHS 11/09/2017 01/06/2018 Inactive fentanyl 100 mcg/hr transdermal patch RxNorm: 088904 1 Patch TD Q72H 2017 12/05/2017 Inactive hyoscyamine 0.125 mg disintegrating tablet RxNorm: 7967832 1-2 Tablet(s) PO Q8 as needed 11/03/2017 12/13/2017 Inactive carvedilol 3.125 mg tablet RxNorm: 647121 GIVE 1 TABLET VIA PEG TUBE 2 TIMES A DAY 10/22/2017 01/19/2018 Inactive Generic For:COREG 3.125MG 10/22/2017 9:23:30 AM hydrocodone 10 mg-acetaminophen 325 mg tablet RxNorm: 531722 2 Tablet(s) PO scheduled TID and 1 tab q 4 as needed 10/22/2017 2017 Inactive Not to exceed 3gm/24hr acetaminophen fentanyl 100 mcg/hr transdermal patch RxNorm: 856607 1 Patch TD Q72H 10/20/2017 11/07/2017 Inactive Duragesic 75 mcg/hr transdermal patch RxNorm: 933591 1 Patch TD Q72H 10/20/2017 11/10/2017 Inactive lorazepam 0.5 mg tablet RxNorm: 450986 1 Tablet(s) PO BID and 1 tab q 6 hours prn 10/18/2017 No Stop Date Active baclofen 10 mg tablet RxNorm: 371364 TAKE 1 TABLET THREE TIMES DAILY VIA STOMACH TUBE 10/07/2017 12/26/2017 Inactive 10/07/2017 5:36:15 PM 10/07/2017 5:36:13 PM N O T I C E Last quantity doesn't match original quantity cranberry extract 500 mg tablet RxNorm: 0027675 1 Tablet(s) PO QAM 10/04/2017 01/31/2018 Inactive Cipro 500 mg tablet RxNorm: 808290 1 Tablet(s) PO BID 10/04/2017 10/03/2017 Inactive dc keflex hydrocodone 10 mg-acetaminophen 325 mg tablet RxNorm: 307751 2 Tablet(s) PO scheduled TID as needed 10/04/2017 10/21/2017 Inactive Not to exceed 3gm/24hr acetaminophen cranberry extract 500 mg tablet RxNorm: 7111132 1 Tablet(s) PO QAM 10/04/2017 10/03/2017 Inactive Cipro 500 mg tablet RxNorm: 984714 1 Tablet(s) PO BID 10/04/2017 10/10/2017 Inactive dc keflex Duragesic 75 mcg/hr transdermal patch RxNorm: 766652 1 Patch TD Q72H 09/20/2017 10/19/2017 Inactive fentanyl 100 mcg/hr transdermal patch RxNorm: 416974 1 Patch TD Q72H 09/20/2017 10/19/2017 Inactive hyoscyamine 0.125 mg disintegrating tablet RxNorm: 1113397 1 Tablet(s) PO TID and 1 Tablet Q4H prn increased secretions 09/15/2017 11/02/2017 Inactive hydrocodone 10 mg-acetaminophen 325 mg tablet RxNorm: 845357 2 Tablet(s) PO scheduled TID and 1-2 Tabs Q4H PRN pain 09/15/2017 10/03/2017 Inactive Not to exceed 3gm/24hr acetaminophen lorazepam 0.5 mg tablet RxNorm: 691133 1 Tablet(s) PO BID 09/15/2017 10/17/2017 Inactive Lexapro 10 mg tablet RxNorm: 700929 1 Tablet(s) PO daily 09/10/2017 09/14/2017 Inactive Levemir FlexTouch U-100 Insulin 100 unit/mL (3 mL) subcutaneous pen RxNorm: 039917 10 Unit(s) daily 09/09/2017 09/15/2017 Inactive lisinopril 10 mg tablet RxNorm: 610610 1 Tablet(s) PO daily 09/09/2017 05/16/2018 Inactive Duragesic 75 mcg/hr transdermal patch RxNorm: 252946 1 Patch TD Q72H 09/09/2017 09/19/2017 Inactive nystatin 100,000 unit/gram topical cream RxNorm: 697746 1 Gram(s) TOP TID until healed to gaulding 09/06/2017 01/03/2018 Inactive nystatin 100,000 unit/gram topical cream RxNorm: 087217 1 Gram(s) TOP TID until healed to gaulding 09/06/2017 09/05/2017 Inactive hydrocodone 10 mg-acetaminophen 325 mg tablet RxNorm: 076588 2 Tablet(s) PO scheduled TID as needed 08/31/2017 09/14/2017 Inactive Not to exceed 3gm/24hr acetaminophen fentanyl 100 mcg/hr transdermal patch RxNorm: 589784 1 Patch TD Q72H 08/24/2017 09/19/2017 Inactive fentanyl 50 mcg/hr transdermal patch RxNorm: 966246 1 Patch TD Q72H 08/24/2017 09/08/2017 Inactive fentanyl 25 mcg/hr transdermal patch RxNorm: 103186 1 Patch TD Q72H 08/24/2017 08/24/2017 Inactive hyoscyamine 0.125 mg disintegrating tablet RxNorm: 2011899 Tablet(s) 1-2 Tablet(s) PO Q8 as needed 08/23/2017 09/14/2017 Inactive hydrocodone 10 mg-acetaminophen 325 mg tablet RxNorm: 835106 1 Tablet(s) PO scheduled TID et Q6 hours as needed 08/18/2017 08/30/2017 Inactive Not to exceed 3gm/24hr acetaminophen hydrochlorothiazide 25 mg tablet RxNorm: 596305 GIVE 1 TABLET VIA PEG TUBE ONCE DAILY 08/17/2017 02/12/2018 Inactive Generic For:HYDRODIURIL 25 MG TABLET 08/17/2017 9:01:54 AM08/11/2017 10:12:00 AM lorazepam 0.5 mg tablet RxNorm: 242660 1/2 Tablet(s) PO BID 08/03/2017 09/14/2017 Inactive fentanyl 100 mcg/hr transdermal patch RxNorm: 029383 1 Patch TD Q72H 07/26/2017 08/23/2017 Inactive fentanyl 25 mcg/hr transdermal patch RxNorm: 461239 1 Patch TD Q72H 07/26/2017 08/23/2017 Inactive hydrocodone 10 mg-acetaminophen 325 mg tablet RxNorm: 015677 1 Tablet(s) PO scheduled TID et Q6 hours as needed 07/16/2017 08/14/2017 Inactive Not to exceed 3gm/24hr acetaminophen hyoscyamine 0.125 mg disintegrating tablet RxNorm: 1656368 Tablet(s) 1-2 Tablet(s) PO Q8 as needed 07/13/2017 08/01/2017 Inactive baclofen 10 mg tablet RxNorm: 048082 TAKE 1 TABLET THREE TIMES DAILY VIA STOMACH TUBE 07/12/2017 10/06/2017 Inactive 07/12/2017 9:04:08 AM N O T I C E Last quantity doesn't match original quantity lorazepam 0.5 mg tablet RxNorm: 705621 1/2 Tablet(s) PO BID 07/02/2017 08/02/2017 Inactive fentanyl 100 mcg/hr transdermal patch RxNorm: 965951 1 Patch TD Q72H 06/28/2017 07/25/2017 Inactive fentanyl 25 mcg/hr transdermal patch RxNorm: 878196 1 Patch TD Q72H 06/28/2017 07/25/2017 Inactive hyoscyamine 0.125 mg disintegrating tablet RxNorm: 4611842 Tablet(s) 1-2 Tablet(s) PO Q8 as needed 06/03/2017 06/22/2017 Inactive fentanyl 25 mcg/hr transdermal patch RxNorm: 143063 1 Patch TD Q72H 05/26/2017 06/24/2017 Inactive Levemir FlexTouch U-100 Insulin 100 unit/mL (3 mL) subcutaneous pen RxNorm: 056883 20 Unit(s) SQ BID 05/26/2017 09/08/2017 Inactive fentanyl 100 mcg/hr transdermal patch RxNorm: 643990 1 Patch TD Q72H 05/26/2017 06/24/2017 Inactive hydrocodone 10 mg-acetaminophen 325 mg tablet RxNorm: 860701 1 Tablet(s) PO scheduled BID et Q6 hours as needed 05/12/2017 05/11/2017 Inactive hydrocodone 10 mg-acetaminophen 325 mg tablet RxNorm: 943103 1 Tablet(s) PO scheduled TID et Q6 hours as needed 05/12/2017 06/10/2017 Inactive Not to exceed 3gm/24hr acetaminophen docusate sodium 100 mg tablet RxNorm: 5596315 1 Tablet(s) PO BID as needed if no bowel movement 05/10/2017 05/09/2017 Inactive lisinopril 20 mg tablet RxNorm: 164020 1 Tablet(s) PO daily 05/10/2017 09/08/2017 Inactive docusate sodium 100 mg tablet RxNorm: 6293857 1 Tablet(s) PO BID as needed if no bowel movement 05/10/2017 09/14/2017 Inactive fentanyl 25 mcg/hr transdermal patch RxNorm: 381179 1 Patch TD Q72H 05/03/2017 05/25/2017 Inactive lorazepam 0.5 mg tablet RxNorm: 551011 1/2 Tablet(s) PO BID 05/03/2017 07/01/2017 Inactive fentanyl 100 mcg/hr transdermal patch RxNorm: 158298 1 Patch TD Q72H 04/27/2017 05/25/2017 Inactive carvedilol 3.125 mg tablet RxNorm: 713663 Tablet(s) GIVE 1 TABLET VIA PEG TUBE DAILY 04/15/2017 10/21/2017 Inactive Levemir FlexTouch 100 unit/mL (3 mL) subcutaneous insulin pen RxNorm: 588851 10 Unit(s) SQ BID 04/15/2017 2017 Inactive hyoscyamine 0.125 mg disintegrating tablet RxNorm: 8360164 1-2 Tablet(s) PO Q8 as needed 04/14/2017 05/03/2017 Inactive hydrocodone 10 mg-acetaminophen 325 mg tablet RxNorm: 552463 1 Tablet(s) PO scheduled BID et Q6 hours as needed 04/13/2017 05/02/2017 Inactive baclofen 10 mg tablet RxNorm: 410812 TAKE 1 TABLET THREE TIMES DAILY VIA STOMACH TUBE 04/08/2017 05/22/2017 Inactive 04/08/2017 9:32:07 AM fentanyl 25 mcg/hr transdermal patch RxNorm: 410733 1 Patch TD Q72H 04/05/2017 05/02/2017 Inactive lidocaine 10 mg/mL (1 %) injection solution RxNorm: 6828337 1 Milliliter(s) Inj daily Mix with rocephin 03/31/2017 03/30/2017 Inactive Pt resides at [facility] lidocaine 10 mg/mL (1 %) injection solution RxNorm: 2956820 1 Milliliter(s) Inj daily Mix with rocephin 03/31/2017 04/06/2017 Inactive Pt resides at [facility] fentanyl 100 mcg/hr transdermal patch RxNorm: 078660 1 Patch TD Q72H 03/29/2017 04/26/2017 Inactive nystatin 100,000 unit/gram topical powder RxNorm: 482850 APPLY UNDER BREASTS TWICE DAILY FOR YEAST SKIN INFECTION AND APPLY TO UNDERARM AND ABDOMINAL FOLDS AND PERIAREA TWICE DAILY 03/29/2017 03/28/2017 Inactive 03/27/2017 9:12:50 AM nystatin 100,000 unit/gram topical powder RxNorm: 971762 APPLY UNDER BREASTS TWICE DAILY FOR YEAST SKIN INFECTION AND APPLY TO UNDERARM AND ABDOMINAL FOLDS AND PERIAREA TWICE DAILY 03/29/2017 09/14/2017 Inactive 03/29/2017 9:42:55 AM03/27/2017 9:12:50 AM hyoscyamine 0.125 mg disintegrating tablet RxNorm: 8462818 1-2 Tablet(s) PO Q8 as needed 03/08/2017 03/27/2017 Inactive fentanyl 25 mcg/hr transdermal patch RxNorm: 456591 1 Patch TD Q72H 03/02/2017 03/31/2017 Inactive hydrocodone 10 mg-acetaminophen 325 mg tablet RxNorm: 894753 1 Tablet(s) PO scheduled BID et Q6 hours as needed 02/17/2017 03/18/2017 Inactive fentanyl 100 mcg/hr transdermal patch RxNorm: 748049 1 Patch TD Q72H 02/17/2017 03/18/2017 Inactive Lexapro 10 mg tablet RxNorm: 937642 1 Tablet(s) PO daily 02/05/2017 04/14/2017 Inactive Lexapro 10 mg tablet RxNorm: 170701 1 Tablet(s) PO daily 02/05/2017 02/04/2017 Inactive fentanyl 25 mcg/hr transdermal patch RxNorm: 051284 1 Patch TD Q72H 02/04/2017 03/01/2017 Inactive cyanocobalamin (vit B-12) 1,000 mcg tablet RxNorm: 259530 1 Tablet(s) PO daily 01/18/2017 12/13/2017 Inactive hyoscyamine 0.125 mg disintegrating tablet RxNorm: 6824574 Tablet(s) 1-2 Tablet(s) PO Q8 as needed 01/18/2017 02/06/2017 Inactive baclofen 10 mg tablet RxNorm: 246347 TAKE 1 TABLET THREE TIMES DAILY VIA STOMACH TUBE 01/04/2017 02/17/2017 Inactive 01/04/2017 9:25:18 AM fentanyl 100 mcg/hr transdermal patch RxNorm: 484303 1 Patch TD Q72H 12/25/2016 01/23/2017 Inactive hydrochlorothiazide 25 mg tablet RxNorm: 341157 Tablet(s) GIVE 1 TABLET VIA PEG TUBE ONCE A DAY 12/14/2016 07/11/2017 Inactive fentanyl 100 mcg/hr transdermal patch RxNorm: 045698 1 Patch TD Q72H 11/25/2016 12/24/2016 Inactive hyoscyamine 0.125 mg disintegrating tablet RxNorm: 5096155 Tablet(s) 1-2 Tablet(s) PO Q8 as needed 11/25/2016 12/14/2016 Inactive nystatin 100,000 unit/gram topical powder RxNorm: 595300 APPLY UNDER BREASTS TWICE DAILY FOR YEAST SKIN INFECTION AND APPLY TO UNDERARM AND ABDOMINAL FOLDS AND PERIAREA TWICE DAILY 11/24/2016 01/22/2017 Inactive 11/24/2016 9:34:02 AM hydrocodone 10 mg-acetaminophen 325 mg tablet RxNorm: 799573 1 Tablet(s) PO scheduled BID et Q6 hours as needed 11/02/2016 12/01/2016 Inactive cyanocobalamin (vit B-12) 1,000 mcg tablet RxNorm: 997234 1 Tablet(s) PO daily 11/02/2016 01/17/2017 Inactive hyoscyamine 0.125 mg disintegrating tablet RxNorm: 4893974 1-2 Tablet(s) PO Q8 as needed 10/19/2016 11/24/2016 Inactive fentanyl 100 mcg/hr transdermal patch RxNorm: 040250 1 Patch TD Q72H 10/13/2016 11/11/2016 Inactive hydrocodone 10 mg-acetaminophen 325 mg tablet RxNorm: 726277 1 Tablet(s) PO scheduled BID et Q6 hours as needed 10/05/2016 11/01/2016 Inactive baclofen 10 mg tablet RxNorm: 093604 TAKE 1 TABLET THREE TIMES DAILY VIA STOMACH TUBE 10/01/2016 11/14/2016 Inactive 10/01/2016 9:24:37 AM carvedilol 3.125 mg tablet RxNorm: 919494 GIVE 1 TABLET VIA PEG TUBE 2 TIMES A DAY 09/30/2016 12/28/2016 Inactive Generic For:COREG 3.125MG 09/30/2016 1:12:28 PM09/25/2016 9:06:11 AM Probiotic Blend 2 million cell-50 mg capsule RxNorm: 1 Capsule(s) PO BID 09/17/2016 09/23/2016 Inactive Keflex 500 mg capsule RxNorm: 382013 1 Capsule(s) PO TID 09/17/2016 09/23/2016 Inactive hyoscyamine 0.125 mg/5 mL oral elixir RxNorm: 2433346 5 Milliliter(s) PO TID 09/08/2016 09/17/2016 Inactive hyoscyamine 0.125 mg/5 mL oral elixir RxNorm: 7457370 5 Milliliter(s) PO TID 09/08/2016 09/07/2016 Inactive hyoscyamine 0.125 mg disintegrating tablet RxNorm: 5110861 1-2 Tablet(s) PO Q8 as needed 09/07/2016 10/18/2016 Inactive fentanyl 100 mcg/hr transdermal patch RxNorm: 484735 1 Patch TD Q72H 09/01/2016 09/30/2016 Inactive ranitidine 150 mg tablet RxNorm: 160006 1 Tablet(s) PO BID 08/25/2016 No Stop Date Active hydrocodone 10 mg-acetaminophen 325 mg tablet RxNorm: 957629 1 Tablet(s) PO scheduled BID et Q6 hours as needed 08/24/2016 09/22/2016 Inactive cyanocobalamin (vit B-12) 1,000 mcg tablet RxNorm: 357517 1 Tablet(s) PO daily 08/12/2016 11/01/2016 Inactive cyanocobalamin (vit B-12) 1,000 mcg tablet RxNorm: 222186 1 Tablet(s) PO daily 08/12/2016 08/11/2016 Inactive hydrocodone 10 mg-acetaminophen 325 mg tablet RxNorm: 506743 1-2 Tablet(s) PO Q6 as needed 08/03/2016 08/17/2016 Inactive fentanyl 100 mcg/hr transdermal patch RxNorm: 085418 1 Patch TD Q72H 08/03/2016 08/31/2016 Inactive nystatin 100,000 unit/gram topical powder RxNorm: 353751 APPLY UNDER BREASTS TWICE DAILY FOR YEAST SKIN INFECTION AND APPLY TO UNDERARM AND ABDOMINAL FOLDS AND PERIAREA TWICE DAILY 07/17/2016 09/14/2016 Inactive 07/17/2016 3:56:54 PM fentanyl 100 mcg/hr transdermal patch RxNorm: 064050 1 Patch TD Q72H 07/15/2016 08/02/2016 Inactive lisinopril 20 mg tablet RxNorm: 721970 1 Tablet(s) PO daily 07/02/2016 03/28/2017 Inactive hydrocodone 10 mg-acetaminophen 325 mg tablet RxNorm: 332961 1-2 Tablet(s) PO Q6 as needed 07/01/2016 07/15/2016 Inactive Xarelto 20 mg tablet RxNorm: 7452796 Tablet(s) TAKE 1 TABLET VIA PEG TUBE AT BEDTIME 06/19/2016 04/14/2017 Inactive fentanyl 100 mcg/hr transdermal patch RxNorm: 378297 1 Patch TD Q72H 06/17/2016 07/14/2016 Inactive nystatin 100,000 unit/gram topical powder RxNorm: 582189 APPLY TO UNDER BREASTS TWICE DAILY FOR YEAST SKIN INFECTION AND APPLY TO UNDERARM AND ABDOMINAL FOLDS AND PERIAREA TWICE DAILY 06/15/2016 07/16/2016 Inactive Generic For:MYCOSTATIN 100,000 UNITS/GM PW 06/15/2016 12:28:26 PM fentanyl 100 mcg/hr transdermal patch RxNorm: 224556 1 Patch TD Q72H 06/05/2016 06/16/2016 Inactive hydrocodone 10 mg-acetaminophen 325 mg tablet RxNorm: 588567 1-2 Tablet(s) PO Q6 as needed 06/02/2016 06/16/2016 Inactive Probiotic Blend 2 million cell-50 mg capsule RxNorm: 1 Capsule(s) PO BID 05/13/2016 05/19/2016 Inactive nitrofurantoin 100 mg capsule RxNorm: 056836 1 Capsule(s) PO BID 05/13/2016 05/19/2016 Inactive nitrofurantoin 100 mg capsule RxNorm: 438055 1 Capsule(s) PO BID 05/13/2016 05/12/2016 Inactive fentanyl 75 mcg/hr transdermal patch RxNorm: 156643 1 Patch TD Q72H 05/13/2016 06/04/2016 Inactive Keflex 500 mg capsule RxNorm: 223200 1 Capsule(s) PO TID 05/07/2016 05/13/2016 Inactive Patient at [facility] Keflex 500 mg capsule RxNorm: 874309 1 Capsule(s) PO TID 05/07/2016 05/06/2016 Inactive hydrocodone 10 mg-acetaminophen 325 mg tablet RxNorm: 595492 1-2 Tablet(s) PO Q6 as needed 05/04/2016 06/01/2016 Inactive hydrochlorothiazide 25 mg tablet RxNorm: 679707 Tablet(s) GIVE 1 TABLET VIA PEG TUBE ONCE A DAY 04/29/2016 11/24/2016 Inactive hydrochlorothiazide 25 mg tablet RxNorm: 734934 GIVE 1 TABLET VIA PEG TUBE ONCE A DAY 04/22/2016 04/28/2016 Inactive Generic For:HYDRODIURIL 25 MG TABLET refill request fentanyl 75 mcg/hr transdermal patch RxNorm: 074920 1 Patch TD Q72H 04/17/2016 05/12/2016 Inactive Xarelto 20 mg tablet RxNorm: 8371452 TAKE 1 TABLET VIA PEG TUBE AT BEDTIME 04/16/2016 06/14/2016 Inactive 04/16/2016 9:08:52 AM citalopram 40 mg tablet RxNorm: 473527 1 Tablet(s) PO daily 04/02/2016 02/25/2017 Inactive citalopram 40 mg tablet RxNorm: 464480 1 Tablet(s) PO daily 03/27/2016 04/01/2016 Inactive hydrocodone 10 mg-acetaminophen 325 mg tablet RxNorm: 444678 1-2 Tablet(s) PO Q6 as needed 03/27/2016 04/25/2016 Inactive fentanyl 75 mcg/hr transdermal patch RxNorm: 314759 1 Patch TD Q72H 03/18/2016 04/16/2016 Inactive hydrocodone 10 mg-acetaminophen 325 mg tablet RxNorm: 076378 1-2 Tablet(s) PO Q6 as needed 03/11/2016 03/26/2016 Inactive citalopram 40 mg tablet RxNorm: 847613 1 Tablet(s) PO daily 03/04/2016 03/26/2016 Inactive Levemir FlexTouch U-100 Insulin 100 unit/mL (3 mL) subcutaneous pen RxNorm: 071411 20 Unit(s) SQ BID 03/02/2016 09/27/2016 Inactive lisinopril 20 mg tablet RxNorm: 282412 1 Tablet(s) PO daily 02/25/2016 07/01/2016 Inactive Ativan 0.5 mg tablet RxNorm: 703969 1 Tablet(s) PO Q4H as needed 02/18/2016 04/14/2017 Inactive Xarelto 20 mg tablet RxNorm: 6964077 TAKE 1 TABLET VIA PEG TUBE AT BEDTIME 02/12/2016 04/11/2016 Inactive 02/12/2016 9:08:22 AM hydrocodone 10 mg-acetaminophen 325 mg tablet RxNorm: 447812 1-2 Tablet(s) PO Q6 as needed 02/12/2016 03/10/2016 Inactive fentanyl 75 mcg/hr transdermal patch RxNorm: 324493 1 Patch TD Q72H 02/11/2016 03/11/2016 Inactive citalopram 20 mg tablet RxNorm: 542706 1 Tablet(s) PO daily 01/28/2016 03/03/2016 Inactive fentanyl 75 mcg/hr transdermal patch RxNorm: 107120 1 TD Q72H 01/17/2016 02/10/2016 Inactive hydrocodone 10 mg-acetaminophen 325 mg tablet RxNorm: 581006 1-2 Tablet(s) PO Q6 as needed 01/07/2016 02/05/2016 Inactive fentanyl 50 mcg/hr transdermal patch RxNorm: 164865 1 TD Q72H 01/01/2016 01/16/2016 Inactive fentanyl 50 mcg/hr transdermal patch RxNorm: 785495 1 TD q 3 days 12/26/2015 12/31/2015 Inactive Xarelto 20 mg tablet RxNorm: 2831352 TAKE 1 TABLET VIA PEG TUBE AT BEDTIME 12/17/2015 02/11/2016 Inactive 12/16/2015 3:27:57 PM12/14/2015 9:45:17 AM hydrocodone 10 mg-acetaminophen 325 mg tablet RxNorm: 899558 1-2 Tablet(s) PO Q6 as needed 12/06/2015 01/04/2016 Inactive fentanyl 50 mcg/hr transdermal patch RxNorm: 804680 1 TD q 3 days 12/06/2015 12/25/2015 Inactive fentanyl 25 mcg/hr transdermal patch RxNorm: 648205 1 TD q 3 days 11/18/2015 12/05/2015 Inactive Zithromax Z-Eliu 250 mg tablet RxNorm: 698668 1 Tablet(s) PO UD 10/09/2015 02/26/2016 Inactive z pack as directed- please write out instructions- pt at [facility] nystatin 100,000 unit/gram topical powder RxNorm: 953549 APPLY TO UNDER BREASTS TWICE DAILY FOR YEAST SKIN INFECTION AND APPLY TO UNDERARM AND ABDOMINAL FOLDS AND PERIAREA TWICE DAILY 10/07/2015 12/05/2015 Inactive Generic For:MYCOSTATIN 100,000 UNITS/GM PW 10/05/2015 12:07:35 PM fentanyl 25 mcg/hr transdermal patch RxNorm: 601951 1 TD q 3 days 10/03/2015 11/01/2015 Inactive fentanyl 25 mcg/hr transdermal patch RxNorm: 200785 1 TD q 3 days 09/27/2015 10/02/2015 Inactive fentanyl 25 mcg/hr transdermal patch RxNorm: 389574 1 TD q 3 days 09/17/2015 09/26/2015 Inactive fentanyl 25 mcg/hr transdermal patch RxNorm: 566368 1 TD q 3 days 08/30/2015 09/16/2015 Inactive hydrocodone 5 mg-acetaminophen 325 mg tablet RxNorm: 209665 1 Tablet(s) PO Q6 as needed 08/30/2015 09/28/2015 Inactive Diflucan 100 mg tablet RxNorm: 539586 1 Tablet(s) Miscellaneous per peg daily 07/29/2015 08/04/2015 Inactive fentanyl 25 mcg/hr transdermal patch RxNorm: 856980 1 TD q 3 days 07/18/2015 08/29/2015 Inactive hydrocodone 5 mg-acetaminophen 325 mg tablet RxNorm: 772705 1 Tablet(s) PO Q6 as needed 07/18/2015 08/29/2015 Inactive Diflucan 100 mg tablet RxNorm: 310701 1 Tablet(s) Miscellaneous per peg daily 06/17/2015 06/23/2015 Inactive Senna-S 8.6 mg-50 mg tablet RxNorm: 111761 1 Tablet(s) PO daily as needed constipation No Start Date Active Dulcolax (bisacodyl) 10 mg rectal suppository RxNorm: 421208 1 Suppository RTL daily as needed constipation No Start Date Active polyethylene glycol 3350 17 gram/dose oral powder RxNorm: 321946 17 Gram(s) PO daily as needed constipation No Start Date Active baclofen 10 mg tablet RxNorm: 962166 1 Tablet(s) PO TID No Start Date 09/30/2016 Inactive Ativan 0.5 mg tablet RxNorm: 189636 1 Tablet(s) PO Q4H as needed No Start Date 02/17/2016 Inactive ranitidine 150 mg tablet RxNorm: 648979 1 Tablet(s) PO daily No Start Date 08/24/2016 Inactive carvedilol 3.125 mg tablet RxNorm: 053583 1 Tablet(s) PO daily No Start Date 09/29/2016 Inactive citalopram 40 mg tablet RxNorm: 812010 1 Tablet(s) PO daily No Start Date 01/27/2016 Inactive Probiotic Blend oral RxNorm: oral No Start Date 05/12/2016 Inactive hydrochlorothiazide 25 mg tablet RxNorm: 602965 1 Tablet(s) PO daily No Start Date 04/21/2016 Inactive albuterol sulfate concentrate 5 mg/mL(0.5 %) solution for nebulization RxNorm: 670733 1 Vial INH daily as needed congestion No Start Date 03/17/2018 Inactive Levemir FlexTouch 100 unit/mL (3 mL) subcutaneous insulin pen RxNorm: 216530 10 Unit(s) SQ BID No Start Date 03/01/2016 Inactive Zithromax Z-Eliu 250 mg tablet RxNorm: 274115 1 Tablet(s) PO UD No Start Date 10/08/2015 Inactive z pack as directed- please write out instructions- pt at [facility] nystatin 100,000 unit/gram topical powder RxNorm: 766593 Gram(s) TOP BID as needed No Start Date 10/06/2015 Inactive pravastatin 40 mg tablet RxNorm: 470028 Tablet(s) PO daily No Start Date 04/14/2017 Inactive lorazepam 0.5 mg tablet RxNorm: 814723 1/2 Tablet(s) PO BID No Start Date 05/02/2017 Inactive Xarelto 20 mg tablet RxNorm: 5242933 1 Tablet(s) PO daily No Start Date 12/16/2015 Inactive fentanyl 25 mcg/hr transdermal patch RxNorm: 593662 1 TD q 3 days No Start Date 07/17/2015 Inactive lisinopril 20 mg tablet RxNorm: 813120 1 Tablet(s) PO daily No Start Date 02/24/2016 Inactive hydrocodone 5 mg-acetaminophen 325 mg tablet RxNorm: 396424 1 Tablet(s) PO Q6 as needed No Start Date 07/17/2015 Inactive citalopram 40 mg tablet RxNorm: 648775 1 Tablet(s) PO daily No Start Date 03/03/2016 Inactive hyoscyamine 0.125 mg disintegrating tablet RxNorm: 8692677 1-2 Tablet(s) PO Q8 as needed No [...] Item Item Code Result Date A1C Frequency Ocd094 A1CF 60540-7 Last A1C performed at [facility] on: 02-14-2018 05/10/2018 Cbc With Differential [...] 30.7 pg 02/14/2018 Cbc With Differential Ord2 [place]% 7.4 % 02/14/2018 Cbc With Differential Ord2 [...] 2.14 K/ul 02/14/2018 Cbc With Differential Ord2 [place] ABS# 0.5 K/ul 02/14/2018 Cbc With Differential Ord2 Eos ABS# 0.3 K/ul 02/14/2018 Cbc With Differential Ord2 Baso ABS# 0.0 K/ul 02/14/2018 Comp Metabolic Hlp465 NA 142 mEq/L 02/14/2018 Comp Metabolic Xbp123 K 4.5 mEq/L 02/14/2018 Comp Metabolic Odb677 CL 97 mEq/L 02/14/2018 Comp Metabolic Qju096 CO2 41.0 mEq/L 02/14/2018 Comp Metabolic Fcj748 ANION GAP 9 02/14/2018 Comp Metabolic Jwe866 GLUCOSE 111 mg/dL 02/14/2018 Comp Metabolic Cwg569 Creat 0.6 mg/dL 02/14/2018 Comp Metabolic Cxi811 eGFR 108 ml/min/1.73m2 02/14/2018 Comp Metabolic Znc683 BUN 32 mg/dL 02/14/2018 Comp Metabolic Qoz832 B/C Ratio 54.2 Ratio 02/14/2018 Comp Metabolic Vfg080 CALCIUM 8.9 mg/dL 02/14/2018 Comp Metabolic Rlk810 ALK PHOS 81 U/L 02/14/2018 Comp Metabolic Uzn773 AST(SGOT) 14 U/L 02/14/2018 Comp Metabolic Lrn935 ALT(SGPT) 11 U/L 02/14/2018 Comp Metabolic Maa911 BILI T 0.3 mg/dL 02/14/2018 Comp Metabolic Gnc833 ALBUMIN 3.4 g/dL 02/14/2018 Comp Metabolic Xqt465 TPRO 6.3 g/dL 02/14/2018 Comp Metabolic Hny020 GLOB 2.9 g/dL 02/14/2018 Comp Metabolic Pub524 A/G Ratio 1.2 Ratio 02/14/2018 Comp Metabolic Rmp857 Osmo 291 mOsmo 02/14/2018 %Hba1C Yml093 % HbA1c 60514- 6 5.5 % 02/14/2018 %Hba1C Csc810 Gluc Ave 111 mg/dL 02/14/2018 Prealbumin 564684 PREALBUMIN 27 mg/dL 11/24/2017 %Hba1C Vtk125 % HbA1c 62612- 6 5.5 % 11/04/2017 %Hba1C Fwp496 Gluc Ave 111 mg/dL 11/04/2017 Culture Urine [id number] URINE CULTURE SEE NOTES 10/04/2017 Culture Urine [id number] Continued Results 10/04/2017 Urine Culture Ucult Complete [...] Ord28 U-Com Culture to follow 10/01/2017 B12 Phu119 B12 >1500.00 pg/ml 02/19/2017 Cbc With Differential [...] 31.5 pg 02/02/2017 Cbc With Differential Ord2 [place]% 8.3 % 02/02/2017 Cbc With Differential Ord2 [...] 2.28 K/ul 02/02/2017 Cbc With Differential Ord2 [place] ABS# 0.6 K/ul 02/02/2017 Cbc With Differential Ord2 Eos ABS# 0.4 K/ul 02/02/2017 Cbc With Differential Ord2 Baso ABS# 0.0 K/ul 02/02/2017 %Hba1C Tid861 % HbA1c 47761- 6 5.2 % 02/02/2017 %Hba1C Lhs504 Gluc Ave 103 mg/dL 02/02/2017 Comp Metabolic Svm840 NA 138 mEq/L 02/02/2017 Comp Metabolic Ygx396 K 4.5 mEq/L 02/02/2017 Comp Metabolic Pvd448 CL 98 mEq/L 02/02/2017 Comp Metabolic Dsw740 CO2 37.0 mEq/L 02/02/2017 Comp Metabolic Epe562 ANION GAP 8 02/02/2017 Comp Metabolic Bbs708 GLUCOSE 94 mg/dL 02/02/2017 Comp Metabolic Htu734 Creat 0.7 mg/dL 02/02/2017 Comp Metabolic Wgm341 eGFR 88 ml/min/1.73m2 02/02/2017 Comp Metabolic Vec569 BUN 36 mg/dL 02/02/2017 Comp Metabolic Yhr653 B/C Ratio 50.7 Ratio 02/02/2017 Comp Metabolic Naf372 CALCIUM 9.0 mg/dL 02/02/2017 Comp Metabolic Uzy246 ALK PHOS 78 U/L 02/02/2017 Comp Metabolic Okb408 AST(SGOT) 22 U/L 02/02/2017 Comp Metabolic Nsv254 ALT(SGPT) 28 U/L 02/02/2017 Comp Metabolic Fur306 BILI T 0.3 mg/dL 02/02/2017 Comp Metabolic Zjr106 ALBUMIN 3.3 g/dL 02/02/2017 Comp Metabolic Sgy259 TPRO 5.9 g/dL 02/02/2017 Comp Metabolic Mer149 GLOB 2.6 g/dL 02/02/2017 Comp Metabolic Hpc798 A/G Ratio 1.3 Ratio 02/02/2017 Comp Metabolic Usl022 Osmo 284 mOsmo 02/02/2017 %Hba1C Ukc687 % HbA1c 19186- 6 5.0 % 10/29/2016 %Hba1C Ykn263 Gluc Ave 97 mg/dL 10/29/2016 Culture Urine [id number] URINE CULTURE SEE NOTES 09/21/2016 Culture Urine [id number] Continued Results 09/21/2016 Urine Culture Ucult Complete [...] 32.4 pg 07/30/2016 Cbc With Differential Ord2 [place]% 7.2 % 07/30/2016 Cbc With Differential Ord2 [...] 2.69 K/ul 07/30/2016 Cbc With Differential Ord2 [place] ABS# 0.5 K/ul 07/30/2016 Cbc With Differential Ord2 Eos ABS# 0.5 K/ul 07/30/2016 Cbc With Differential Ord2 Baso ABS# 0.0 K/ul 07/30/2016 Comp Metabolic Srh954 NA 141 mEq/L 07/30/2016 Comp Metabolic Zvh787 K 4.3 mEq/L 07/30/2016 Comp Metabolic Qur498 CL 100 mEq/L 07/30/2016 Comp Metabolic Nbb421 CO2 33.0 mEq/L 07/30/2016 Comp Metabolic Iuu110 ANION GAP 12 07/30/2016 Comp Metabolic Mwu217 GLUCOSE 64 mg/dL 07/30/2016 Comp Metabolic Cqj789 Creat 0.5 mg/dL 07/30/2016 Comp Metabolic Lxk882 eGFR 126 ml/min/1.73m2 07/30/2016 Comp Metabolic Iru172 BUN 25 mg/dL 07/30/2016 Comp Metabolic Wyy831 B/C Ratio 48.1 Ratio 07/30/2016 Comp Metabolic Ipa954 CALCIUM 8.9 mg/dL 07/30/2016 Comp Metabolic Beo181 ALK PHOS 90 U/L 07/30/2016 Comp Metabolic Moo258 AST(SGOT) 22 U/L 07/30/2016 Comp Metabolic Vem006 ALT(SGPT) 36 U/L 07/30/2016 Comp Metabolic Wfj866 BILI T 0.3 mg/dL 07/30/2016 Comp Metabolic Zpu737 ALBUMIN 3.4 g/dL 07/30/2016 Comp Metabolic Vha478 TPRO 6.0 g/dL 07/30/2016 Comp Metabolic Jtg330 GLOB 2.7 g/dL 07/30/2016 Comp Metabolic Xnf530 A/G Ratio 1.3 Ratio 07/30/2016 Comp Metabolic Obs336 Osmo 284 mOsmo 07/30/2016 A1C Frequency Myx670 A1CF 89052-8 Last A1C performed at [facility] on: 05-12-2016 07/30/2016 %Hba1C Fvm819 % HbA1c 98590- 6 5.2 % 05/12/2016 %Hba1C Nhn528 Gluc Ave 103 mg/dL 05/12/2016 Culture Urine [id number] URINE CULTURE SEE NOTES 05/11/2016 Urine Culture [...] U-Com Culture to follow 05/06/2016 Culture Urine [id number] URINE CULTURE SEE NOTES 03/17/2016 Culture Urine [id number] Continued Results 03/17/2016 Urine Culture Ucult Complete [...] 32.0 pg 02/11/2016 Cbc With Differential Ord2 [place]% 9.1 % 02/11/2016 Cbc With Differential Ord2 [...] 2.59 K/ul 02/11/2016 Cbc With Differential Ord2 [place] ABS# 0.6 K/ul 02/11/2016 Cbc With Differential Ord2 Eos ABS# 0.3 K/ul 02/11/2016 Cbc With Differential Ord2 Baso ABS# 0.0 K/ul 02/11/2016 Comp Metabolic Xcd337 NA 137 mEq/L 02/11/2016 Comp Metabolic Upm875 K 4.4 mEq/L 02/11/2016 Comp Metabolic Pbi643 CL 100 mEq/L 02/11/2016 Comp Metabolic Nlb900 CO2 25.0 mEq/L 02/11/2016 Comp Metabolic Uqs078 ANION GAP 16 02/11/2016 Comp Metabolic Jdc009 GLUCOSE 99 mg/dL 02/11/2016 Comp Metabolic Oyk426 Creat 0.6 mg/dL 02/11/2016 Comp Metabolic Blc639 eGFR 99 ml/min/1.73m2 02/11/2016 Comp Metabolic Ukm534 BUN 27 mg/dL 02/11/2016 Comp Metabolic Gni965 B/C Ratio 42.2 Ratio 02/11/2016 Comp Metabolic Qfm065 CALCIUM 9.2 mg/dL 02/11/2016 Comp Metabolic Btm790 ALK PHOS 74 U/L 02/11/2016 Comp Metabolic Cog612 AST(SGOT) 24 U/L 02/11/2016 Comp Metabolic Fxd577 ALT(SGPT) 26 U/L 02/11/2016 Comp Metabolic Sxb294 BILI T 0.5 mg/dL 02/11/2016 Comp Metabolic Nox110 ALBUMIN 3.5 g/dL 02/11/2016 Comp Metabolic Xsb406 TPRO 6.2 g/dL 02/11/2016 Comp Metabolic Tqh787 GLOB 2.7 g/dL 02/11/2016 Comp Metabolic Urt412 A/G Ratio 1.3 Ratio 02/11/2016 Comp Metabolic Evw597 Osmo 279 mOsmo 02/11/2016 Review of Systems [...] 1: 128/86 Code: 8480-6 BMI: 31.4 Code: 63049-3 Heart Rate 1: 72 bpm Height: 5'1" Weight: 166 lbs 06/17/2015 Blood Pressure 1: 110/78 Code: 8480-6 BMI: 33.3 Code: 28553-9 Heart Rate 1: 74 bpm Height: 5'1" [...] Present Encounters Encounter Performer Location Codes Date ([id number]) 46246 EST. PATIENT, LEVEL IV Diagnosis: Essential (primary) hypertension[ICD10: I10] Diagnosis: Chronic pain syndrome[ICD10: G89.4] Diagnosis: Type 2 diabetes mellitus without complications[ICD10: E11.9] Carlyn Everett MD, [facility] CPT-4: 18278 05/17/2018 ([id number]) 19276 EST. PATIENT, LEVEL IV Diagnosis: Cough[ICD10: R05] Diagnosis: Pneumonia, unspecified organism[ICD10: J18.9] Diagnosis: Pain in right knee[ICD10: M25.561] Carlyn Everett MD, [facility] CPT- 4: 21339 03/18/2018 ([id number]) 81298 EST. PATIENT, LEVEL IV Diagnosis: Type 2 diabetes mellitus without complications[ICD10: E11.9] Diagnosis: Essential (primary) hypertension[ICD10: I10] Diagnosis: Chronic pain syndrome[ICD10: G89.4] Carlyn Everett MD, [facility] CPT-4: 99587 01/07/2018 ([id number]) 60616 EST. PATIENT, LEVEL IV Diagnosis: Essential (primary) hypertension[ICD10: I10] Diagnosis: Type 2 diabetes mellitus without complications[ICD10: E11.9] Carlyn Everett MD, [facility] CPT-4: 04415 2017 ([id number]) 06805 EST. PATIENT, LEVEL IV Diagnosis: Type 2 diabetes mellitus with hyperglycemia[ICD10: E11.65] Diagnosis: Essential (primary) hypertension[ICD10: I10] Diagnosis: Pain in left shoulder[ICD10: M25.512] Diagnosis: Pain in right shoulder[ICD10: M25.511] Diagnosis: Pain in left knee[ICD10: M25.562] Diagnosis: Pain in right knee[ICD10: M25.561] Vonda Everett MD, [facility] CPT- 4: 32966 09/09/2017 [id number] EST. PATIENT, LEVEL IV Diagnosis: Essential (primary) hypertension[ICD10: I10] Diagnosis: Type 2 diabetes mellitus with hyperglycemia[ICD10: E11.65] Diagnosis: Low back pain[ICD10: M54.5] Sunitha Everett MD, [facility] CPT-4: 14538 06/08/2017 ([id number]) 05447 EST. PATIENT, LEVEL IV Diagnosis: Essential (primary) hypertension[ICD10: I10] Diagnosis: Type 2 diabetes mellitus with hyperglycemia[ICD10: E11.65] Diagnosis: Low back pain[ICD10: M54.5] Sunitha Everett MD, [facility] CPT-4: 26246 04/15/2017 ([id number]) 07353 EST. PATIENT, LEVEL IV Diagnosis: Essential (primary) hypertension[ICD10: I10] Diagnosis: Type 2 diabetes mellitus with hyperglycemia[ICD10: E11.65] Diagnosis: Low back pain[ICD10: M54.5] Vonda Everett MD, [facility] CPT-4: 48939 02/16/2017 34228 EST. 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] Diagnosis: Ataxia following cerebral infarction[ICD10: I69.393] Diagnosis: 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] Diagnosis: Dysphagia following cerebral infarction[ICD10: I69.391] 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 A chest xray has been ordered as have antibiotics. The pt is aware of the diagnosis and the need for acute treatment of this illness. Right knee pain -xray knee-rx for voltaren gel 03/18/2018 Appointment: Carlyn Higginbotham WPtel: [phone] [place] (30 min) Complex 03/18/2018 Patient Education: Patient Medication Summary Completed 03/18/2018 Appointment: Carlyn Higginbotham WPtel: [phone] [facility] [place] [phone] [place] (30 min) Complex 03/17/2018 Appointment: Carlyn Higginbotham WPtel: [facility]5 [phone] [place] (15 min) Moderate 03/10/2018 Appointment: Carlyn Higginbotham WPtel: [facility]5 [phone] [place] (15 min) Moderate 02/08/2018 Visit Plan: DM -decrease levemir to 4 units daily -monitor blood sugars KPJ-swuxhxtmav-cr changes Chronic pain -well controlled with fentanyl patch -no changes at this time 01/07/2018 Appointment: Carlyn Higginbotham WPtel: [facility]5 [phone] [place] (15 min) Moderate 01/07/2018 Patient Education: [...] HS 2017 Appointment: Carlyn Higginbotham WPtel: [phone] [phone] (15 min) Moderate 2017 Patient Education: Patient [...] 175mcg. 09/09/2017 [phone] [place] ([facility] min) Moderate 09/09/2017 Patient [...] record. 06/08/2017 Appointment: Sunitha Patel WPtel: [phone] [facility] [place] [address] (30 min) Complex 06/08/2017 Patient Education: Patient [...] over-medication. 04/15/2017 Appointment: Sunitha Patel WPtel: [phone] [facility] [place] [address] (30 min) Complex 04/15/2017 Patient Education: Patient [...] hydrocodone today. 02/16/2017 App[facility]ment: [phone] ([facility] min) Moderate 02/16/2017 Patient Education: [...] concerns. 11/09/2016 Appointment: Sunitha Patel WPtel: [phone] [facility] [address] (30 min) Complex 11/09/2016 Patient Education: Patient Medication Summary Completed 11/09/2016 Care Plan: Referral Order SNOMED-CT : [id number] Pending 11/09/2016 Patient Education: Patient Medication Summary [...] Follow up weight in 1 month Neck kewb-dxlnacuvtsc-Zzuu PT focus neck/upper body Right earache-cerumen removed with water pick today in the office 07/18/2015 Appointment: (30 min) Complex 07/18/2015 Patient Education: Patient Medication Summary Completed 07/18/2015 Patient Education: Obesity Completed 07/18/2015 Patient Education: .Cervicalgia Neck Pain Completed 07/18/2015 [facility] [phone] [facility] [place] Referral Completed 06/25/2015 Visit Plan: [...] normal liver response to medications. [facility] for post stroke - left sided weakness, neck stiffness, upper extremity weakness Diabetes Mellitus - controlled - per family report - check labs this week, get report from and [facility]. I spent over an hour with the patient in direct contact. 06/17/2015 App[facility]ment: [phone] [facility] [place] New [facility] 06/17/2015 Patient Education: Patient Medication Summary Completed 06/17/2015 Patient Education: Obesity Completed 06/17/2015 Patient Education: Hypertension Completed 06/17/2015 Care Plan: Referral Order SNOMED-CT : [id number] Ordered 06/17/2015 Referral: Jorge Luis Carroll Referral Initiated [facility] WPtel: [phone] [facility] [place] Referral Appointment Requested Instructions Comment [...] liver response to medications. [facility] post stroke - left sided weakness, neck stiffness, upper extremity weakness Diabetes Mellitus - controlled - per family report - check labs this week, get report from and [facility]. I spent over an hour with the [...] Follow up weight in 1 month Neck jtms-tvqtemeruyp-Nqkg PT focus neck/upper body Right earache-cerumen removed [...] controlled with fentanyl patches-continue to monitor. . DM -decrease levemir to 4 units daily -monitor blood sugars ZTE-hufflwuerp-le changes Chronic pain -well controlled with fentanyl [...]
--- OUTSIDE RECORDS SUMMARY | 2018-08-09 11:37 | XMS REPORT | CCD ---
Author Author [facility] Organization [facility] Address [address] [place] [address] Phone Care Team Providers Care Correctional Officer Sergeant Name Role Phone PP Unavailable CCM Unavailable Summary Purpose Interface Exchange Insurance Providers Payer name Policy type / Coverage type Covered republican ID Effective Begin Date Effective End Date WPS Medicare Part B Medicare Part B [id number] Unknown Unknown [place] [employer] Medicare Part B [id number] Unknown Unknown Family history Father Diagnosis Age At Onset Arthritis Unknown Hypertension Unknown Mother Diagnosis Age At Onset Diabetes mellitus Type 2 Unknown Depression Unknown Arthritis Unknown Stroke Unknown Hypertension Unknown Sister Diagnosis Age At Onset Colon cancer Unknown Social History Social History Element Codes Description Effective Dates Marital status Unknown Maurice 01/07/2018 Living arrangements Unknown [facility] 04/15/2017 Number of children Unknown 3 06/17/2015 Employment Unknown Retired 06/17/[address]: 1607257 Quit over 10 years ago 15+ 06/17/[address]: 247494173 Never drinks alcohol 06/17/2015 Allergies, Adverse Reactions, Alerts Substance Reaction Codes Entered Date Inactivated Date Status MORPHINE SULFATE emesis, RxNorm: 7052 06/17/2015 No Inactive Date Active Past Medical History Illness Codes Condition Status Onset Date Resolved Date Cough ICD-9: 786.2 ICD-10: R05 Active 03/18/2018 Unknown Pain in right knee ICD- 9: 719.46 ICD-10: M25.561 Active 09/09/2017 Unknown Pneumonia, unspecified organism ICD-9: 486 ICD-10: J18.9 Active 03/18/2018 Unknown Chronic pain syndrome ICD- 9: 338.4 ICD-10: G89.4 Active 01/07/2018 Unknown Essential (primary) hypertension ICD-9: 401.9 ICD-10: I10 Active 07/17/2015 Unknown Type 2 diabetes mellitus without complications ICD-9: 250.00 ICD-10: E11.9 Active 2017 Unknown Diabetes Unknown Active 2017 Unknown Pain [...] Problems Condition Codes Effective Dates Condition Status Cough ICD-9: 786.2 ICD-10: R05 03/18/2018 Active Pain in right knee ICD- 9: 719.46 ICD-10: M25.561 09/09/2017 Active Pneumonia, unspecified organism ICD-9: 486 ICD-10: J18.9 03/18/2018 Active Chronic pain syndrome ICD- 9: 338.4 ICD-10: G89.4 01/07/2018 Active Essential (primary) hypertension ICD-9: 401.9 ICD-10: I10 07/17/2015 Active Type 2 diabetes mellitus without complications ICD-9: 250.00 ICD-10: E11.9 2017 Active Diabetes Unknown 2017 Active Pain in [...] hydrocodone 10 mg-acetaminophen 325 mg tablet RxNorm: 576725 2 Tablet(s) PO scheduled TID 04/19/2018 05/18/2018 Active Not to exceed 3gm/24hr acetaminophen lorazepam 0.5 mg tablet RxNorm: 627346 1 Tablet(s) PO BID and 1 tab q 6 hours prn 04/07/2018 No Stop Date Active hyoscyamine 0.125 mg disintegrating tablet RxNorm: 5260908 Tablet(s) 1-2 Tablet(s) PO Q8 as needed 03/31/2018 No Stop Date Active Duragesic 75 mcg/hr transdermal patch RxNorm: 331356 1 Patch TD Q72H 03/31/2018 04/29/2018 Inactive fentanyl 100 mcg/hr transdermal patch RxNorm: 783296 1 Patch TD Q72H 03/31/2018 04/29/2018 Inactive carvedilol 3.125 mg tablet RxNorm: 483712 Tablet(s) GIVE 1 TABLET VIA PEG TUBE 2 TIMES A DAY 03/30/2018 06/27/2018 Active Generic For:COREG 3.125MG 10/22/2017 9:23:30 AM Voltaren 1 % topical gel RxNorm: 621758 APPLY 4 GRAMS TO RIGHT KNEE FOUR TIMES DAILY 03/30/2018 04/22/2018 Inactive Generic For:VOLTAREN GEL 1% 03/30/2018 11:14:57 AM hydrocodone 10 mg-acetaminophen 325 mg tablet RxNorm: 016904 2 Tablet(s) PO scheduled TID 03/23/2018 04/18/2018 Inactive Not to exceed 3gm/24hr acetaminophen Zithromax Z-Eliu 250 mg tablet RxNorm: 139475 Tablet(s) PO 03/18/2018 No Stop Date Active albuterol sulfate concentrate 5 mg/mL(0.5 %) solution for nebulization RxNorm: 848504 1 Vial Milliliter(s) INH TID PRN as needed congestion 03/18/2018 No Stop Date Active cefdinir 300 mg capsule RxNorm: 494733 1 Capsule(s) PO BID 03/18/2018 03/24/2018 Inactive Voltaren 1 % topical gel RxNorm: 268974 4 Gram(s) TOP QID 03/18/2018 03/29/2018 Inactive hydrochlorothiazide 25 mg tablet RxNorm: 831663 GIVE 1 TABLET VIA PEG TUBE ONCE DAILY 03/11/2018 09/06/2018 Active Generic For:HYDRODIURIL 25 MG TABLET 03/11/2018 9:15:32 AM fentanyl 100 mcg/hr transdermal patch RxNorm: 011290 1 Patch TD Q72H 03/02/2018 03/30/2018 Inactive Duragesic 75 mcg/hr transdermal patch RxNorm: 823409 1 Patch TD Q72H 03/02/2018 03/30/2018 Inactive hydrocodone 10 mg-acetaminophen 325 mg tablet RxNorm: 873214 2 Tablet(s) PO scheduled TID 02/18/2018 03/22/2018 Inactive Not to exceed 3gm/24hr acetaminophen hyoscyamine 0.125 mg disintegrating tablet RxNorm: 7126070 Tablet(s) 1-2 Tablet(s) PO Q8 as needed 02/08/2018 03/30/2018 Inactive fentanyl 100 mcg/hr transdermal patch RxNorm: 240092 1 Patch TD Q72H 02/04/2018 03/01/2018 Inactive hydrocodone 10 mg-acetaminophen 325 mg tablet RxNorm: 137450 2 Tablet(s) PO scheduled TID 02/04/2018 02/17/2018 Inactive Not to exceed 3gm/24hr acetaminophen Duragesic 75 mcg/hr transdermal patch RxNorm: 323657 1 Patch TD Q72H 02/04/2018 03/01/2018 Inactive Levemir FlexTouch U-100 Insulin 100 unit/mL (3 mL) subcutaneous pen RxNorm: 126638 4 Unit(s) SQ QHS 01/07/2018 No Stop Date Active Duragesic 75 mcg/hr transdermal patch RxNorm: 160145 1 Patch TD Q72H 01/07/2018 02/03/2018 Inactive fentanyl 100 mcg/hr transdermal patch RxNorm: 675916 1 Patch TD Q72H 01/07/2018 02/03/2018 Inactive hydrocodone 10 mg-acetaminophen 325 mg tablet RxNorm: 926733 2 Tablet(s) PO scheduled TID 01/05/2018 02/03/2018 Inactive Not to exceed 3gm/24hr acetaminophen hydrocodone 10 mg-acetaminophen 325 mg tablet RxNorm: 484793 2 Tablet(s) PO scheduled TID and 1 tab q 4 as needed 01/04/2018 01/04/2018 Inactive Not to exceed 3gm/24hr acetaminophen cyanocobalamin (vit B-12) 1,000 mcg tablet RxNorm: 786739 1 Tablet(s) PO daily 12/28/2017 11/22/2018 Active baclofen 10 mg tablet RxNorm: 413839 Tablet(s) TAKE 1 TABLET THREE TIMES DAILY VIA STOMACH TUBE 12/27/2017 05/25/2018 Active 10/07/2017 5:36:15 PM 10/07/2017 5:36:13 PM N O T I C E Last quantity doesn't match original quantity Duragesic 75 mcg/hr transdermal patch RxNorm: 610578 1 Patch TD Q72H 12/22/2017 01/06/2018 Inactive fentanyl 100 mcg/hr transdermal patch RxNorm: 471675 1 Patch TD Q72H 12/22/2017 01/06/2018 Inactive hydrocodone 10 mg-acetaminophen 325 mg tablet RxNorm: 668875 2 Tablet(s) PO scheduled TID and 1 tab q 4 as needed 12/20/2017 01/03/2018 Inactive Not to exceed 3gm/24hr acetaminophen hyoscyamine 0.125 mg disintegrating tablet RxNorm: 3570206 1-2 Tablet(s) PO Q8 as needed 12/14/2017 02/07/2018 Inactive Duragesic 75 mcg/hr transdermal patch RxNorm: 370461 1 Patch TD Q72H 12/06/2017 12/21/2017 Inactive fentanyl 100 mcg/hr transdermal patch RxNorm: 890329 1 Patch TD Q72H 12/06/2017 12/21/2017 Inactive hydrocodone 10 mg-acetaminophen 325 mg tablet RxNorm: 600880 2 Tablet(s) PO scheduled TID and 1 tab q 4 as needed 11/29/2017 12/19/2017 Inactive Not to exceed 3gm/24hr acetaminophen Duragesic 75 mcg/hr transdermal patch RxNorm: 598475 1 Patch TD Q72H 11/11/2017 12/05/2017 Inactive hydrocodone 10 mg-acetaminophen 325 mg tablet RxNorm: 991692 2 Tablet(s) PO scheduled TID and 1 tab q 4 as needed 11/09/2017 11/28/2017 Inactive Not to exceed 3gm/24hr acetaminophen Levemir FlexTouch U-100 Insulin 100 unit/mL (3 mL) subcutaneous pen RxNorm: 067213 8 Unit(s) SQ QHS 11/09/2017 01/06/2018 Inactive fentanyl 100 mcg/hr transdermal patch RxNorm: 578173 1 Patch TD Q72H 2017 12/05/2017 Inactive hyoscyamine 0.125 mg disintegrating tablet RxNorm: 9464066 1-2 Tablet(s) PO Q8 as needed 11/03/2017 12/13/2017 Inactive carvedilol 3.125 mg tablet RxNorm: 765215 GIVE 1 TABLET VIA PEG TUBE 2 TIMES A DAY 10/22/2017 01/19/2018 Inactive Generic For:COREG 3.125MG 10/22/2017 9:23:30 AM hydrocodone 10 mg-acetaminophen 325 mg tablet RxNorm: 624040 2 Tablet(s) PO scheduled TID and 1 tab q 4 as needed 10/22/2017 2017 Inactive Not to exceed 3gm/24hr acetaminophen fentanyl 100 mcg/hr transdermal patch RxNorm: 012758 1 Patch TD Q72H 10/20/2017 11/07/2017 Inactive Duragesic 75 mcg/hr transdermal patch RxNorm: 099285 1 Patch TD Q72H 10/20/2017 11/10/2017 Inactive lorazepam 0.5 mg tablet RxNorm: 401197 1 Tablet(s) PO BID and 1 tab q 6 hours prn 10/18/2017 No Stop Date Active baclofen 10 mg tablet RxNorm: 566084 TAKE 1 TABLET THREE TIMES DAILY VIA STOMACH TUBE 10/07/2017 12/26/2017 Inactive 10/07/2017 5:36:15 PM 10/07/2017 5:36:13 PM N O T I C E Last quantity doesn't match original quantity cranberry extract 500 mg tablet RxNorm: 0266906 1 Tablet(s) PO QAM 10/04/2017 01/31/2018 Inactive Cipro 500 mg tablet RxNorm: 658509 1 Tablet(s) PO BID 10/04/2017 10/03/2017 Inactive dc keflex hydrocodone 10 mg-acetaminophen 325 mg tablet RxNorm: 003450 2 Tablet(s) PO scheduled TID as needed 10/04/2017 10/21/2017 Inactive Not to exceed 3gm/24hr acetaminophen cranberry extract 500 mg tablet RxNorm: 3060440 1 Tablet(s) PO QAM 10/04/2017 10/03/2017 Inactive Cipro 500 mg tablet RxNorm: 662589 1 Tablet(s) PO BID 10/04/2017 10/10/2017 Inactive dc keflex Duragesic 75 mcg/hr transdermal patch RxNorm: 809875 1 Patch TD Q72H 09/20/2017 10/19/2017 Inactive fentanyl 100 mcg/hr transdermal patch RxNorm: 732762 1 Patch TD Q72H 09/20/2017 10/19/2017 Inactive hyoscyamine 0.125 mg disintegrating tablet RxNorm: 1916277 1 Tablet(s) PO TID and 1 Tablet Q4H prn increased secretions 09/15/2017 11/02/2017 Inactive hydrocodone 10 mg-acetaminophen 325 mg tablet RxNorm: 028530 2 Tablet(s) PO scheduled TID and 1-2 Tabs Q4H PRN pain 09/15/2017 10/03/2017 Inactive Not to exceed 3gm/24hr acetaminophen lorazepam 0.5 mg tablet RxNorm: 650695 1 Tablet(s) PO BID 09/15/2017 10/17/2017 Inactive Lexapro 10 mg tablet RxNorm: 070737 1 Tablet(s) PO daily 09/10/2017 09/14/2017 Inactive lisinopril 10 mg tablet RxNorm: 926248 1 Tablet(s) PO daily 09/09/2017 06/05/2018 Active Levemir FlexTouch U-100 Insulin 100 unit/mL (3 mL) subcutaneous pen RxNorm: 858226 10 Unit(s) daily 09/09/2017 09/15/2017 Inactive Duragesic 75 mcg/hr transdermal patch RxNorm: 267234 1 Patch TD Q72H 09/09/2017 09/19/2017 Inactive nystatin 100,000 unit/gram topical cream RxNorm: 811675 1 Gram(s) TOP TID until healed to gaulding 09/06/2017 01/03/2018 Inactive nystatin 100,000 unit/gram topical cream RxNorm: 127774 1 Gram(s) TOP TID until healed to gaulding 09/06/2017 09/05/2017 Inactive hydrocodone 10 mg-acetaminophen 325 mg tablet RxNorm: 592436 2 Tablet(s) PO scheduled TID as needed 08/31/2017 09/14/2017 Inactive Not to exceed 3gm/24hr acetaminophen fentanyl 100 mcg/hr transdermal patch RxNorm: 968435 1 Patch TD Q72H 08/24/2017 09/19/2017 Inactive fentanyl 50 mcg/hr transdermal patch RxNorm: 925501 1 Patch TD Q72H 08/24/2017 09/08/2017 Inactive fentanyl 25 mcg/hr transdermal patch RxNorm: 778285 1 Patch TD Q72H 08/24/2017 08/24/2017 Inactive hyoscyamine 0.125 mg disintegrating tablet RxNorm: 6299485 Tablet(s) 1-2 Tablet(s) PO Q8 as needed 08/23/2017 09/14/2017 Inactive hydrocodone 10 mg-acetaminophen 325 mg tablet RxNorm: 148989 1 Tablet(s) PO scheduled TID et Q6 hours as needed 08/18/2017 08/30/2017 Inactive Not to exceed 3gm/24hr acetaminophen hydrochlorothiazide 25 mg tablet RxNorm: 281045 GIVE 1 TABLET VIA PEG TUBE ONCE DAILY 08/17/2017 02/12/2018 Inactive Generic For:HYDRODIURIL 25 MG TABLET 08/17/2017 9:01:54 AM08/11/2017 10:12:00 AM lorazepam 0.5 mg tablet RxNorm: 406687 1/2 Tablet(s) PO BID 08/03/2017 09/14/2017 Inactive fentanyl 100 mcg/hr transdermal patch RxNorm: 740352 1 Patch TD Q72H 07/26/2017 08/23/2017 Inactive fentanyl 25 mcg/hr transdermal patch RxNorm: 029147 1 Patch TD Q72H 07/26/2017 08/23/2017 Inactive hydrocodone 10 mg-acetaminophen 325 mg tablet RxNorm: 104440 1 Tablet(s) PO scheduled TID et Q6 hours as needed 07/16/2017 08/14/2017 Inactive Not to exceed 3gm/24hr acetaminophen hyoscyamine 0.125 mg disintegrating tablet RxNorm: 1297797 Tablet(s) 1-2 Tablet(s) PO Q8 as needed 07/13/2017 08/01/2017 Inactive baclofen 10 mg tablet RxNorm: 174439 TAKE 1 TABLET THREE TIMES DAILY VIA STOMACH TUBE 07/12/2017 10/06/2017 Inactive 07/12/2017 9:04:08 AM N O T I C E Last quantity doesn't match original quantity lorazepam 0.5 mg tablet RxNorm: 211904 1/2 Tablet(s) PO BID 07/02/2017 08/02/2017 Inactive fentanyl 100 mcg/hr transdermal patch RxNorm: 271969 1 Patch TD Q72H 06/28/2017 07/25/2017 Inactive fentanyl 25 mcg/hr transdermal patch RxNorm: 046177 1 Patch TD Q72H 06/28/2017 07/25/2017 Inactive hyoscyamine 0.125 mg disintegrating tablet RxNorm: 8691347 Tablet(s) 1-2 Tablet(s) PO Q8 as needed 06/03/2017 06/22/2017 Inactive fentanyl 25 mcg/hr transdermal patch RxNorm: 711446 1 Patch TD Q72H 05/26/2017 06/24/2017 Inactive Levemir FlexTouch U-100 Insulin 100 unit/mL (3 mL) subcutaneous pen RxNorm: 360239 20 Unit(s) SQ BID 05/26/2017 09/08/2017 Inactive fentanyl 100 mcg/hr transdermal patch RxNorm: 278714 1 Patch TD Q72H 05/26/2017 06/24/2017 Inactive hydrocodone 10 mg-acetaminophen 325 mg tablet RxNorm: 054489 1 Tablet(s) PO scheduled BID et Q6 hours as needed 05/12/2017 05/11/2017 Inactive hydrocodone 10 mg-acetaminophen 325 mg tablet RxNorm: 221820 1 Tablet(s) PO scheduled TID et Q6 hours as needed 05/12/2017 06/10/2017 Inactive Not to exceed 3gm/24hr acetaminophen docusate sodium 100 mg tablet RxNorm: 5520035 1 Tablet(s) PO BID as needed if no bowel movement 05/10/2017 05/09/2017 Inactive lisinopril 20 mg tablet RxNorm: 513472 1 Tablet(s) PO daily 05/10/2017 09/08/2017 Inactive docusate sodium 100 mg tablet RxNorm: 1921566 1 Tablet(s) PO BID as needed if no bowel movement 05/10/2017 09/14/2017 Inactive fentanyl 25 mcg/hr transdermal patch RxNorm: 737720 1 Patch TD Q72H 05/03/2017 05/25/2017 Inactive lorazepam 0.5 mg tablet RxNorm: 501300 1/2 Tablet(s) PO BID 05/03/2017 07/01/2017 Inactive fentanyl 100 mcg/hr transdermal patch RxNorm: 187056 1 Patch TD Q72H 04/27/2017 05/25/2017 Inactive carvedilol 3.125 mg tablet RxNorm: 121291 Tablet(s) GIVE 1 TABLET VIA PEG TUBE DAILY 04/15/2017 10/21/2017 Inactive Levemir FlexTouch 100 unit/mL (3 mL) subcutaneous insulin pen RxNorm: 119049 10 Unit(s) SQ BID 04/15/2017 2017 Inactive hyoscyamine 0.125 mg disintegrating tablet RxNorm: 2718256 1-2 Tablet(s) PO Q8 as needed 04/14/2017 05/03/2017 Inactive hydrocodone 10 mg-acetaminophen 325 mg tablet RxNorm: 169963 1 Tablet(s) PO scheduled BID et Q6 hours as needed 04/13/2017 05/02/2017 Inactive baclofen 10 mg tablet RxNorm: 061698 TAKE 1 TABLET THREE TIMES DAILY VIA STOMACH TUBE 04/08/2017 05/22/2017 Inactive 04/08/2017 9:32:07 AM fentanyl 25 mcg/hr transdermal patch RxNorm: 573410 1 Patch TD Q72H 04/05/2017 05/02/2017 Inactive lidocaine 10 mg/mL (1 %) injection solution RxNorm: 5121751 1 Milliliter(s) Inj daily Mix with rocephin 03/31/2017 03/30/2017 Inactive Pt resides at [facility] lidocaine 10 mg/mL (1 %) injection solution RxNorm: 0753851 1 Milliliter(s) Inj daily Mix with rocephin 03/31/2017 04/06/2017 Inactive Pt resides at [facility] fentanyl 100 mcg/hr transdermal patch RxNorm: 515228 1 Patch TD Q72H 03/29/2017 04/26/2017 Inactive nystatin 100,000 unit/gram topical powder RxNorm: 149793 APPLY UNDER BREASTS TWICE DAILY FOR YEAST SKIN INFECTION AND APPLY TO UNDERARM AND ABDOMINAL FOLDS AND PERIAREA TWICE DAILY 03/29/2017 03/28/2017 Inactive 03/27/2017 9:12:50 AM nystatin 100,000 unit/gram topical powder RxNorm: 851540 APPLY UNDER BREASTS TWICE DAILY FOR YEAST SKIN INFECTION AND APPLY TO UNDERARM AND ABDOMINAL FOLDS AND PERIAREA TWICE DAILY 03/29/2017 09/14/2017 Inactive 03/29/2017 9:42:55 AM03/27/2017 9:12:50 AM hyoscyamine 0.125 mg disintegrating tablet RxNorm: 0645756 1-2 Tablet(s) PO Q8 as needed 03/08/2017 03/27/2017 Inactive fentanyl 25 mcg/hr transdermal patch RxNorm: 652557 1 Patch TD Q72H 03/02/2017 03/31/2017 Inactive hydrocodone 10 mg-acetaminophen 325 mg tablet RxNorm: 003702 1 Tablet(s) PO scheduled BID et Q6 hours as needed 02/17/2017 03/18/2017 Inactive fentanyl 100 mcg/hr transdermal patch RxNorm: 944639 1 Patch TD Q72H 02/17/2017 03/18/2017 Inactive Lexapro 10 mg tablet RxNorm: 268600 1 Tablet(s) PO daily 02/05/2017 04/14/2017 Inactive Lexapro 10 mg tablet RxNorm: 063455 1 Tablet(s) PO daily 02/05/2017 02/04/2017 Inactive fentanyl 25 mcg/hr transdermal patch RxNorm: 285724 1 Patch TD Q72H 02/04/2017 03/01/2017 Inactive cyanocobalamin (vit B-12) 1,000 mcg tablet RxNorm: 890294 1 Tablet(s) PO daily 01/18/2017 12/13/2017 Inactive hyoscyamine 0.125 mg disintegrating tablet RxNorm: 0371702 Tablet(s) 1-2 Tablet(s) PO Q8 as needed 01/18/2017 02/06/2017 Inactive baclofen 10 mg tablet RxNorm: 749900 TAKE 1 TABLET THREE TIMES DAILY VIA STOMACH TUBE 01/04/2017 02/17/2017 Inactive 01/04/2017 9:25:18 AM fentanyl 100 mcg/hr transdermal patch RxNorm: 784974 1 Patch TD Q72H 12/25/2016 01/23/2017 Inactive hydrochlorothiazide 25 mg tablet RxNorm: 221995 Tablet(s) GIVE 1 TABLET VIA PEG TUBE ONCE A DAY 12/14/2016 07/11/2017 Inactive fentanyl 100 mcg/hr transdermal patch RxNorm: 131063 1 Patch TD Q72H 11/25/2016 12/24/2016 Inactive hyoscyamine 0.125 mg disintegrating tablet RxNorm: 1761945 Tablet(s) 1-2 Tablet(s) PO Q8 as needed 11/25/2016 12/14/2016 Inactive nystatin 100,000 unit/gram topical powder RxNorm: 931405 APPLY UNDER BREASTS TWICE DAILY FOR YEAST SKIN INFECTION AND APPLY TO UNDERARM AND ABDOMINAL FOLDS AND PERIAREA TWICE DAILY 11/24/2016 01/22/2017 Inactive 11/24/2016 9:34:02 AM hydrocodone 10 mg-acetaminophen 325 mg tablet RxNorm: 244968 1 Tablet(s) PO scheduled BID et Q6 hours as needed 11/02/2016 12/01/2016 Inactive cyanocobalamin (vit B-12) 1,000 mcg tablet RxNorm: 487297 1 Tablet(s) PO daily 11/02/2016 01/17/2017 Inactive hyoscyamine 0.125 mg disintegrating tablet RxNorm: 8342871 1-2 Tablet(s) PO Q8 as needed 10/19/2016 11/24/2016 Inactive fentanyl 100 mcg/hr transdermal patch RxNorm: 568406 1 Patch TD Q72H 10/13/2016 11/11/2016 Inactive hydrocodone 10 mg-acetaminophen 325 mg tablet RxNorm: 863670 1 Tablet(s) PO scheduled BID et Q6 hours as needed 10/05/2016 11/01/2016 Inactive baclofen 10 mg tablet RxNorm: 883137 TAKE 1 TABLET THREE TIMES DAILY VIA STOMACH TUBE 10/01/2016 11/14/2016 Inactive 10/01/2016 9:24:37 AM carvedilol 3.125 mg tablet RxNorm: 239368 GIVE 1 TABLET VIA PEG TUBE 2 TIMES A DAY 09/30/2016 12/28/2016 Inactive Generic For:COREG 3.125MG 09/30/2016 1:12:28 PM09/25/2016 9:06:11 AM Probiotic Blend 2 million cell-50 mg capsule RxNorm: 1 Capsule(s) PO BID 09/17/2016 09/23/2016 Inactive Keflex 500 mg capsule RxNorm: 283417 1 Capsule(s) PO TID 09/17/2016 09/23/2016 Inactive hyoscyamine 0.125 mg/5 mL oral elixir RxNorm: 7007768 5 Milliliter(s) PO TID 09/08/2016 09/17/2016 Inactive hyoscyamine 0.125 mg/5 mL oral elixir RxNorm: 1811763 5 Milliliter(s) PO TID 09/08/2016 09/07/2016 Inactive hyoscyamine 0.125 mg disintegrating tablet RxNorm: 8743014 1-2 Tablet(s) PO Q8 as needed 09/07/2016 10/18/2016 Inactive fentanyl 100 mcg/hr transdermal patch RxNorm: 965067 1 Patch TD Q72H 09/01/2016 09/30/2016 Inactive ranitidine 150 mg tablet RxNorm: 867408 1 Tablet(s) PO BID 08/25/2016 No Stop Date Active hydrocodone 10 mg-acetaminophen 325 mg tablet RxNorm: 696766 1 Tablet(s) PO scheduled BID et Q6 hours as needed 08/24/2016 09/22/2016 Inactive cyanocobalamin (vit B-12) 1,000 mcg tablet RxNorm: 019840 1 Tablet(s) PO daily 08/12/2016 11/01/2016 Inactive cyanocobalamin (vit B-12) 1,000 mcg tablet RxNorm: 619055 1 Tablet(s) PO daily 08/12/2016 08/11/2016 Inactive hydrocodone 10 mg-acetaminophen 325 mg tablet RxNorm: 508837 1-2 Tablet(s) PO Q6 as needed 08/03/2016 08/17/2016 Inactive fentanyl 100 mcg/hr transdermal patch RxNorm: 736619 1 Patch TD Q72H 08/03/2016 08/31/2016 Inactive nystatin 100,000 unit/gram topical powder RxNorm: 048222 APPLY UNDER BREASTS TWICE DAILY FOR YEAST SKIN INFECTION AND APPLY TO UNDERARM AND ABDOMINAL FOLDS AND PERIAREA TWICE DAILY 07/17/2016 09/14/2016 Inactive 07/17/2016 3:56:54 PM fentanyl 100 mcg/hr transdermal patch RxNorm: 877357 1 Patch TD Q72H 07/15/2016 08/02/2016 Inactive lisinopril 20 mg tablet RxNorm: 600486 1 Tablet(s) PO daily 07/02/2016 03/28/2017 Inactive hydrocodone 10 mg-acetaminophen 325 mg tablet RxNorm: 319937 1-2 Tablet(s) PO Q6 as needed 07/01/2016 07/15/2016 Inactive Xarelto 20 mg tablet RxNorm: 0955843 Tablet(s) TAKE 1 TABLET VIA PEG TUBE AT BEDTIME 06/19/2016 04/14/2017 Inactive fentanyl 100 mcg/hr transdermal patch RxNorm: 277471 1 Patch TD Q72H 06/17/2016 07/14/2016 Inactive nystatin 100,000 unit/gram topical powder RxNorm: 193919 APPLY TO UNDER BREASTS TWICE DAILY FOR YEAST SKIN INFECTION AND APPLY TO UNDERARM AND ABDOMINAL FOLDS AND PERIAREA TWICE DAILY 06/15/2016 07/16/2016 Inactive Generic For:MYCOSTATIN 100,000 UNITS/GM PW 06/15/2016 12:28:26 PM fentanyl 100 mcg/hr transdermal patch RxNorm: 725311 1 Patch TD Q72H 06/05/2016 06/16/2016 Inactive hydrocodone 10 mg-acetaminophen 325 mg tablet RxNorm: 407053 1-2 Tablet(s) PO Q6 as needed 06/02/2016 06/16/2016 Inactive Probiotic Blend 2 million cell-50 mg capsule RxNorm: 1 Capsule(s) PO BID 05/13/2016 05/19/2016 Inactive nitrofurantoin 100 mg capsule RxNorm: 901854 1 Capsule(s) PO BID 05/13/2016 05/19/2016 Inactive nitrofurantoin 100 mg capsule RxNorm: 303384 1 Capsule(s) PO BID 05/13/2016 05/12/2016 Inactive fentanyl 75 mcg/hr transdermal patch RxNorm: 447170 1 Patch TD Q72H 05/13/2016 06/04/2016 Inactive Keflex 500 mg capsule RxNorm: 978740 1 Capsule(s) PO TID 05/07/2016 05/13/2016 Inactive Patient at [facility] Keflex 500 mg capsule RxNorm: 033429 1 Capsule(s) PO TID 05/07/2016 05/06/2016 Inactive hydrocodone 10 mg-acetaminophen 325 mg tablet RxNorm: 736440 1-2 Tablet(s) PO Q6 as needed 05/04/2016 06/01/2016 Inactive hydrochlorothiazide 25 mg tablet RxNorm: 817108 Tablet(s) GIVE 1 TABLET VIA PEG TUBE ONCE A DAY 04/29/2016 11/24/2016 Inactive hydrochlorothiazide 25 mg tablet RxNorm: 817841 GIVE 1 TABLET VIA PEG TUBE ONCE A DAY 04/22/2016 04/28/2016 Inactive Generic For:HYDRODIURIL 25 MG TABLET refill request fentanyl 75 mcg/hr transdermal patch RxNorm: 954274 1 Patch TD Q72H 04/17/2016 05/12/2016 Inactive Xarelto 20 mg tablet RxNorm: 8855555 TAKE 1 TABLET VIA PEG TUBE AT BEDTIME 04/16/2016 06/14/2016 Inactive 04/16/2016 9:08:52 AM citalopram 40 mg tablet RxNorm: 252533 1 Tablet(s) PO daily 04/02/2016 02/25/2017 Inactive citalopram 40 mg tablet RxNorm: 566534 1 Tablet(s) PO daily 03/27/2016 04/01/2016 Inactive hydrocodone 10 mg-acetaminophen 325 mg tablet RxNorm: 585550 1-2 Tablet(s) PO Q6 as needed 03/27/2016 04/25/2016 Inactive fentanyl 75 mcg/hr transdermal patch RxNorm: 138799 1 Patch TD Q72H 03/18/2016 04/16/2016 Inactive hydrocodone 10 mg-acetaminophen 325 mg tablet RxNorm: 429589 1-2 Tablet(s) PO Q6 as needed 03/11/2016 03/26/2016 Inactive citalopram 40 mg tablet RxNorm: 213237 1 Tablet(s) PO daily 03/04/2016 03/26/2016 Inactive Levemir FlexTouch U-100 Insulin 100 unit/mL (3 mL) subcutaneous pen RxNorm: 889161 20 Unit(s) SQ BID 03/02/2016 09/27/2016 Inactive lisinopril 20 mg tablet RxNorm: 637419 1 Tablet(s) PO daily 02/25/2016 07/01/2016 Inactive Ativan 0.5 mg tablet RxNorm: 751843 1 Tablet(s) PO Q4H as needed 02/18/2016 04/14/2017 Inactive Xarelto 20 mg tablet RxNorm: 1922924 TAKE 1 TABLET VIA PEG TUBE AT BEDTIME 02/12/2016 04/11/2016 Inactive 02/12/2016 9:08:22 AM hydrocodone 10 mg-acetaminophen 325 mg tablet RxNorm: 770947 1-2 Tablet(s) PO Q6 as needed 02/12/2016 03/10/2016 Inactive fentanyl 75 mcg/hr transdermal patch RxNorm: 070091 1 Patch TD Q72H 02/11/2016 03/11/2016 Inactive citalopram 20 mg tablet RxNorm: 720062 1 Tablet(s) PO daily 01/28/2016 03/03/2016 Inactive fentanyl 75 mcg/hr transdermal patch RxNorm: 980763 1 TD Q72H 01/17/2016 02/10/2016 Inactive hydrocodone 10 mg-acetaminophen 325 mg tablet RxNorm: 780415 1-2 Tablet(s) PO Q6 as needed 01/07/2016 02/05/2016 Inactive fentanyl 50 mcg/hr transdermal patch RxNorm: 393284 1 TD Q72H 01/01/2016 01/16/2016 Inactive fentanyl 50 mcg/hr transdermal patch RxNorm: 733891 1 TD q 3 days 12/26/2015 12/31/2015 Inactive Xarelto 20 mg tablet RxNorm: 1144314 TAKE 1 TABLET VIA PEG TUBE AT BEDTIME 12/17/2015 02/11/2016 Inactive 12/16/2015 3:27:57 PM12/14/2015 9:45:17 AM hydrocodone 10 mg-acetaminophen 325 mg tablet RxNorm: 704725 1-2 Tablet(s) PO Q6 as needed 12/06/2015 01/04/2016 Inactive fentanyl 50 mcg/hr transdermal patch RxNorm: 219696 1 TD q 3 days 12/06/2015 12/25/2015 Inactive fentanyl 25 mcg/hr transdermal patch RxNorm: 557722 1 TD q 3 days 11/18/2015 12/05/2015 Inactive Zithromax Z-Eliu 250 mg tablet RxNorm: 362259 1 Tablet(s) PO UD 10/09/2015 02/26/2016 Inactive z pack as directed- please write out instructions- pt at [facility] nystatin 100,000 unit/gram topical powder RxNorm: 161825 APPLY TO UNDER BREASTS TWICE DAILY FOR YEAST SKIN INFECTION AND APPLY TO UNDERARM AND ABDOMINAL FOLDS AND PERIAREA TWICE DAILY 10/07/2015 12/05/2015 Inactive Generic For:MYCOSTATIN 100,000 UNITS/GM PW 10/05/2015 12:07:35 PM fentanyl 25 mcg/hr transdermal patch RxNorm: 513519 1 TD q 3 days 10/03/2015 11/01/2015 Inactive fentanyl 25 mcg/hr transdermal patch RxNorm: 862324 1 TD q 3 days 09/27/2015 10/02/2015 Inactive fentanyl 25 mcg/hr transdermal patch RxNorm: 622596 1 TD q 3 days 09/17/2015 09/26/2015 Inactive fentanyl 25 mcg/hr transdermal patch RxNorm: 279772 1 TD q 3 days 08/30/2015 09/16/2015 Inactive hydrocodone 5 mg-acetaminophen 325 mg tablet RxNorm: 076428 1 Tablet(s) PO Q6 as needed 08/30/2015 09/28/2015 Inactive Diflucan 100 mg tablet RxNorm: 760657 1 Tablet(s) Miscellaneous per peg daily 07/29/2015 08/04/2015 Inactive fentanyl 25 mcg/hr transdermal patch RxNorm: 227125 1 TD q 3 days 07/18/2015 08/29/2015 Inactive hydrocodone 5 mg-acetaminophen 325 mg tablet RxNorm: 949500 1 Tablet(s) PO Q6 as needed 07/18/2015 08/29/2015 Inactive Diflucan 100 mg tablet RxNorm: 881288 1 Tablet(s) Miscellaneous per peg daily 06/17/2015 06/23/2015 Inactive Senna-S 8.6 mg-50 mg tablet RxNorm: 556285 1 Tablet(s) PO daily as needed constipation No Start Date Active Dulcolax (bisacodyl) 10 mg rectal suppository RxNorm: 073813 1 Suppository RTL daily as needed constipation No Start Date Active polyethylene glycol 3350 17 gram/dose oral powder RxNorm: 428121 17 Gram(s) PO daily as needed constipation No Start Date Active baclofen 10 mg tablet RxNorm: 250325 1 Tablet(s) PO TID No Start Date 09/30/2016 Inactive Ativan 0.5 mg tablet RxNorm: 316895 1 Tablet(s) PO Q4H as needed No Start Date 02/17/2016 Inactive ranitidine 150 mg tablet RxNorm: 229454 1 Tablet(s) PO daily No Start Date 08/24/2016 Inactive carvedilol 3.125 mg tablet RxNorm: 670141 1 Tablet(s) PO daily No Start Date 09/29/2016 Inactive citalopram 40 mg tablet RxNorm: 647018 1 Tablet(s) PO daily No Start Date 01/27/2016 Inactive Probiotic Blend oral RxNorm: oral No Start Date 05/12/2016 Inactive hydrochlorothiazide 25 mg tablet RxNorm: 153575 1 Tablet(s) PO daily No Start Date 04/21/2016 Inactive albuterol sulfate concentrate 5 mg/mL(0.5 %) solution for nebulization RxNorm: 232925 1 Vial INH daily as needed congestion No Start Date 03/17/2018 Inactive Levemir FlexTouch 100 unit/mL (3 mL) subcutaneous insulin pen RxNorm: 807345 10 Unit(s) SQ BID No Start Date 03/01/2016 Inactive Zithromax Z-Eliu 250 mg tablet RxNorm: 805799 1 Tablet(s) PO UD No Start Date 10/08/2015 Inactive z pack as directed- please write out instructions- pt at [facility] nystatin 100,000 unit/gram topical powder RxNorm: 532302 Gram(s) TOP BID as needed No Start Date 10/06/2015 Inactive pravastatin 40 mg tablet RxNorm: 990081 Tablet(s) PO daily No Start Date 04/14/2017 Inactive lorazepam 0.5 mg tablet RxNorm: 284067 1/2 Tablet(s) PO BID No Start Date 05/02/2017 Inactive Xarelto 20 mg tablet RxNorm: 2870940 1 Tablet(s) PO daily No Start Date 12/16/2015 Inactive fentanyl 25 mcg/hr transdermal patch RxNorm: 902750 1 TD q 3 days No Start Date 07/17/2015 Inactive lisinopril 20 mg tablet RxNorm: 687351 1 Tablet(s) PO daily No Start Date 02/24/2016 Inactive hydrocodone 5 mg-acetaminophen 325 mg tablet RxNorm: 545595 1 Tablet(s) PO Q6 as needed No Start Date 07/17/2015 Inactive citalopram 40 mg tablet RxNorm: 824124 1 Tablet(s) PO daily No Start Date 03/03/2016 Inactive hyoscyamine 0.125 mg disintegrating tablet RxNorm: 1620711 1-2 Tablet(s) PO Q8 as needed No Start Date 09/06/2016 Inactive Medication Administered No Medication Administered data Immunizations No Immunization data Assessments Condition Codes Effective Dates Cough ICD-10: R05 ICD-9: 786.2 03/18/2018 Pneumonia, unspecified organism ICD-10: J18.9 ICD-9: 486 03/18/2018 Pain in right knee ICD-10: M25.561 ICD-9: 719.46 03/18/2018 Type 2 diabetes mellitus without complications ICD-10: E11.9 ICD-9: 250.00 01/07/2018 Essential (primary) hypertension ICD-10: I10 ICD-9: 401.9 01/07/2018 Chronic pain syndrome ICD-10: G89.4 ICD-9: 338.4 01/07/2018 Pain in left knee ICD-10: M25.562 ICD-9: [...] Visit Reason For Visit Effective Dates Notes cough 03/18/2018 hypertension 01/07/2018 hypertension 2017 pain 09/09/2017 pain 06/08/2017 hypertension 04/15/2017 ~generic 02/16/2017 PEG tube ~generic 11/09/2016 PEG tube earache 07/18/2015 hypertension 06/17/2015 Results Observation Observation Code Item Item Code Result Date A1C Frequency Kov541 A1CF 19721-2 Last A1C performed at [facility] lab on: 02-14-2018 05/10/2018 Cbc With Differential [...] 30.7 pg 02/14/2018 Cbc With Differential Ord2 [place]% 7.4 % 02/14/2018 Cbc With Differential Ord2 [...] 2.14 K/ul 02/14/2018 Cbc With Differential Ord2 [place] ABS# 0.5 K/ul 02/14/2018 Cbc With Differential Ord2 Eos ABS# 0.3 K/ul 02/14/2018 Cbc With Differential Ord2 Baso ABS# 0.0 K/ul 02/14/2018 Comp Metabolic Uqy326 NA 142 mEq/L 02/14/2018 Comp Metabolic Kgb814 K 4.5 mEq/L 02/14/2018 Comp Metabolic Lfu033 CL 97 mEq/L 02/14/2018 Comp Metabolic Aaw178 CO2 41.0 mEq/L 02/14/2018 Comp Metabolic Bfz365 ANION GAP 9 02/14/2018 Comp Metabolic Zec679 GLUCOSE 111 mg/dL 02/14/2018 Comp Metabolic Kua540 Creat 0.6 mg/dL 02/14/2018 Comp Metabolic Qjd763 eGFR 108 ml/min/1.73m2 02/14/2018 Comp Metabolic Tzg772 BUN 32 mg/dL 02/14/2018 Comp Metabolic Iur459 B/C Ratio 54.2 Ratio 02/14/2018 Comp Metabolic Eej667 CALCIUM 8.9 mg/dL 02/14/2018 Comp Metabolic Ryr993 ALK PHOS 81 U/L 02/14/2018 Comp Metabolic Obg189 AST(SGOT) 14 U/L 02/14/2018 Comp Metabolic Beo226 ALT(SGPT) 11 U/L 02/14/2018 Comp Metabolic Mqo216 BILI T 0.3 mg/dL 02/14/2018 Comp Metabolic Cvy226 ALBUMIN 3.4 g/dL 02/14/2018 Comp Metabolic Wqb609 TPRO 6.3 g/dL 02/14/2018 Comp Metabolic Qbl665 GLOB 2.9 g/dL 02/14/2018 Comp Metabolic Mid898 A/G Ratio 1.2 Ratio 02/14/2018 Comp Metabolic Rig624 Osmo 291 mOsmo 02/14/2018 %Hba1C Pej781 % HbA1c 19890- 6 5.5 % 02/14/2018 %Hba1C Wzr543 Gluc Ave 111 mg/dL 02/14/2018 Prealbumin 936942 PREALBUMIN 27 mg/dL 11/24/2017 %Hba1C Miy327 % HbA1c 74733- 6 5.5 % 11/04/2017 %Hba1C Tpd100 Gluc Ave 111 mg/dL 11/04/2017 Culture Urine [id number] URINE CULTURE SEE NOTES 10/04/2017 Culture Urine [id number] Continued Results 10/04/2017 Urine Culture Ucult Complete [...] Ord28 U-Com Culture to follow 10/01/2017 B12 Tye841 B12 >1500.00 pg/ml 02/19/2017 Cbc With Differential [...] 31.5 pg 02/02/2017 Cbc With Differential Ord2 [place]% 8.3 % 02/02/2017 Cbc With Differential Ord2 [...] 2.28 K/ul 02/02/2017 Cbc With Differential Ord2 [place] ABS# 0.6 K/ul 02/02/2017 Cbc With Differential Ord2 Eos ABS# 0.4 K/ul 02/02/2017 Cbc With Differential Ord2 Baso ABS# 0.0 K/ul 02/02/2017 %Hba1C Uyi850 % HbA1c 81835- 6 5.2 % 02/02/2017 %Hba1C Sgw467 Gluc Ave 103 mg/dL 02/02/2017 Comp Metabolic Rvk776 NA 138 mEq/L 02/02/2017 Comp Metabolic Ucu905 K 4.5 mEq/L 02/02/2017 Comp Metabolic Sap886 CL 98 mEq/L 02/02/2017 Comp Metabolic Eej918 CO2 37.0 mEq/L 02/02/2017 Comp Metabolic Ijw360 ANION GAP 8 02/02/2017 Comp Metabolic Hjc227 GLUCOSE 94 mg/dL 02/02/2017 Comp Metabolic Roc380 Creat 0.7 mg/dL 02/02/2017 Comp Metabolic Uxh070 eGFR 88 ml/min/1.73m2 02/02/2017 Comp Metabolic Mkt852 BUN 36 mg/dL 02/02/2017 Comp Metabolic Ggx289 B/C Ratio 50.7 Ratio 02/02/2017 Comp Metabolic Qas472 CALCIUM 9.0 mg/dL 02/02/2017 Comp Metabolic Hhz474 ALK PHOS 78 U/L 02/02/2017 Comp Metabolic Ntn865 AST(SGOT) 22 U/L 02/02/2017 Comp Metabolic Tmy854 ALT(SGPT) 28 U/L 02/02/2017 Comp Metabolic Pnr699 BILI T 0.3 mg/dL 02/02/2017 Comp Metabolic Ooz354 ALBUMIN 3.3 g/dL 02/02/2017 Comp Metabolic Abm135 TPRO 5.9 g/dL 02/02/2017 Comp Metabolic Wov590 GLOB 2.6 g/dL 02/02/2017 Comp Metabolic Lzb761 A/G Ratio 1.3 Ratio 02/02/2017 Comp Metabolic Jgr374 Osmo 284 mOsmo 02/02/2017 %Hba1C Oqf206 % HbA1c 99217- 6 5.0 % 10/29/2016 %Hba1C Agg463 Gluc Ave 97 mg/dL 10/29/2016 Culture Urine [id number] URINE CULTURE SEE NOTES 09/21/2016 Culture Urine [id number] Continued Results 09/21/2016 Urine Culture Ucult Complete [...] 32.4 pg 07/30/2016 Cbc With Differential Ord2 [place]% 7.2 % 07/30/2016 Cbc With Differential Ord2 [...] 2.69 K/ul 07/30/2016 Cbc With Differential Ord2 [place] ABS# 0.5 K/ul 07/30/2016 Cbc With Differential Ord2 Eos ABS# 0.5 K/ul 07/30/2016 Cbc With Differential Ord2 Baso ABS# 0.0 K/ul 07/30/2016 Comp Metabolic Ojl113 NA 141 mEq/L 07/30/2016 Comp Metabolic Iql509 K 4.3 mEq/L 07/30/2016 Comp Metabolic Loe139 CL 100 mEq/L 07/30/2016 Comp Metabolic Tfg406 CO2 33.0 mEq/L 07/30/2016 Comp Metabolic Udm501 ANION GAP 12 07/30/2016 Comp Metabolic Soj390 GLUCOSE 64 mg/dL 07/30/2016 Comp Metabolic Onl133 Creat 0.5 mg/dL 07/30/2016 Comp Metabolic Bbb531 eGFR 126 ml/min/1.73m2 07/30/2016 Comp Metabolic Vop958 BUN 25 mg/dL 07/30/2016 Comp Metabolic Wgx440 B/C Ratio 48.1 Ratio 07/30/2016 Comp Metabolic Pvz624 CALCIUM 8.9 mg/dL 07/30/2016 Comp Metabolic Npj636 ALK PHOS 90 U/L 07/30/2016 Comp Metabolic Qnn298 AST(SGOT) 22 U/L 07/30/2016 Comp Metabolic Alj704 ALT(SGPT) 36 U/L 07/30/2016 Comp Metabolic Juz744 BILI T 0.3 mg/dL 07/30/2016 Comp Metabolic Yta847 ALBUMIN 3.4 g/dL 07/30/2016 Comp Metabolic Epw888 TPRO 6.0 g/dL 07/30/2016 Comp Metabolic Cmr217 GLOB 2.7 g/dL 07/30/2016 Comp Metabolic Wab095 A/G Ratio 1.3 Ratio 07/30/2016 Comp Metabolic Cmf645 Osmo 284 mOsmo 07/30/2016 A1C Frequency Vth465 A1CF 20425-6 Last A1C performed at [facility] lab on: 05-12-2016 07/30/2016 %Hba1C Bqt332 % HbA1c 73150- 6 5.2 % 05/12/2016 %Hba1C Aql382 Gluc Ave 103 mg/dL 05/12/2016 Culture Urine [id number] URINE CULTURE SEE NOTES 05/11/2016 Urine Culture [...] U-Com Culture to follow 05/06/2016 Culture Urine [id number] URINE CULTURE SEE NOTES 03/17/2016 Culture Urine [id number] Continued Results 03/17/2016 Urine Culture Ucult Complete [...] 32.0 pg 02/11/2016 Cbc With Differential Ord2 [place]% 9.1 % 02/11/2016 Cbc With Differential Ord2 [...] 2.59 K/ul 02/11/2016 Cbc With Differential Ord2 [place] ABS# 0.6 K/ul 02/11/2016 Cbc With Differential Ord2 Eos ABS# 0.3 K/ul 02/11/2016 Cbc With Differential Ord2 Baso ABS# 0.0 K/ul 02/11/2016 Comp Metabolic Xcx367 NA 137 mEq/L 02/11/2016 Comp Metabolic Pib510 K 4.4 mEq/L 02/11/2016 Comp Metabolic Zgb070 CL 100 mEq/L 02/11/2016 Comp Metabolic Kod686 CO2 25.0 mEq/L 02/11/2016 Comp Metabolic Zhq395 ANION GAP 16 02/11/2016 Comp Metabolic Efv030 GLUCOSE 99 mg/dL 02/11/2016 Comp Metabolic Ksb571 Creat 0.6 mg/dL 02/11/2016 Comp Metabolic Qid830 eGFR 99 ml/min/1.73m2 02/11/2016 Comp Metabolic Pgj279 BUN 27 mg/dL 02/11/2016 Comp Metabolic Bym437 B/C Ratio 42.2 Ratio 02/11/2016 Comp Metabolic Zed690 CALCIUM 9.2 mg/dL 02/11/2016 Comp Metabolic Rkb417 ALK PHOS 74 U/L 02/11/2016 Comp Metabolic Zgz071 AST(SGOT) 24 U/L 02/11/2016 Comp Metabolic Wvk798 ALT(SGPT) 26 U/L 02/11/2016 Comp Metabolic Mir890 BILI T 0.5 mg/dL 02/11/2016 Comp Metabolic Qsp675 ALBUMIN 3.5 g/dL 02/11/2016 Comp Metabolic Emj962 TPRO 6.2 g/dL 02/11/2016 Comp Metabolic Yvo633 GLOB 2.7 g/dL 02/11/2016 Comp Metabolic Rwn215 A/G Ratio 1.3 Ratio 02/11/2016 Comp Metabolic Yny600 Osmo 279 mOsmo 02/11/2016 Review of Systems System Result Effective Dates Constitutional recent illness 03/18/2018 Constitutional anorexia 03/18/2018 [...] CPT-4: G8553 06/17/2015 Vital Signs Date Vital 03/18/2018 Blood Pressure 1: 136/70 Code: 8480-6 [...] 1: 128/86 Code: 8480-6 BMI: 31.4 Code: 16414-0 Heart Rate 1: 72 bpm Height: 5'1" Weight: 166 lbs 06/17/2015 Blood Pressure 1: 110/78 Code: 8480-6 BMI: 33.3 Code: 00148-9 Heart Rate 1: 74 bpm Height: 5'1" SpO2: 92% Weight: 176 lbs Functional Status No Functional Status data History of Present Illness Symptom Name Status Result Effective Date Notes Location in the throat 03/18/2018 None Quality [...] Present Encounters Encounter Performer Location Codes Date ([id number]) 93867 EST. PATIENT, LEVEL IV Diagnosis: Cough[ICD10: R05] Diagnosis: Pneumonia, unspecified organism[ICD10: J18.9] Diagnosis: Pain in right knee[ICD10: M25.561] Carlyn Everett MD, [facility] CPT- 4: 34279 03/18/2018 ([id number]) 95535 EST. PATIENT, LEVEL IV Diagnosis: Type 2 diabetes mellitus without complications[ICD10: E11.9] Diagnosis: Essential (primary) hypertension[ICD10: I10] Diagnosis: Chronic pain syndrome[ICD10: G89.4] [facility] CPT-4: 32316 01/07/2018 ([id number]) 52850 EST. PATIENT, LEVEL IV Diagnosis: Essential (primary) hypertension[ICD10: I10] Diagnosis: Type 2 diabetes mellitus without complications[ICD10: E11.9] Carlyn Everett MD, [facility] CPT-4: 35323 2017 ([id number]) 49483 EST. PATIENT, LEVEL IV Diagnosis: Type 2 diabetes mellitus with hyperglycemia[ICD10: E11.65] Diagnosis: Essential (primary) hypertension[ICD10: I10] Diagnosis: Pain in left shoulder[ICD10: M25.512] Diagnosis: Pain in right shoulder[ICD10: M25.511] Diagnosis: Pain in left knee[ICD10: M25.562] Diagnosis: Pain in right knee[ICD10: M25.561] Vonda Everett MD, [facility] CPT- 4: 20810 09/09/2017 63524 EST. PATIENT, LEVEL IV Diagnosis: Essential (primary) hypertension[ICD10: I10] Diagnosis: Type 2 diabetes mellitus with hyperglycemia[ICD10: E11.65] Diagnosis: Low back pain[ICD10: M54.5] Sunitha Everett MD, [facility] CPT-4: 42946 06/08/2017 ([id number]) 27393 EST. PATIENT, LEVEL IV Diagnosis: Essential (primary) hypertension[ICD10: I10] Diagnosis: Type 2 diabetes mellitus with hyperglycemia[ICD10: E11.65] Diagnosis: Low back pain[ICD10: M54.5] Sunitha Everett MD, [facility] CPT-4: 44934 04/15/2017 ([id number]) 06688 EST. PATIENT, LEVEL IV Diagnosis: Essential (primary) hypertension[ICD10: I10] Diagnosis: Type 2 diabetes mellitus with hyperglycemia[ICD10: E11.65] Diagnosis: Low back pain[ICD10: M54.5] Vonda Everett MD, [facility] CPT-4: 08317 02/16/2017 89313 EST. 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 A chest xray has been ordered as have antibiotics. The pt is aware of the diagnosis and the need for acute treatment of this illness. Right knee pain -xray knee-rx for voltaren gel 03/18/2018 Appointment: Carlyn Higginbotham WPtel: [address] [place], [place] [phone] (30 min) Complex 03/18/2018 Patient Education: Patient Medication Summary Completed 03/18/2018 Appointment: Carlyn Higginbotham WPtel: [address] [place], [place] [phone] (30 min) Complex 03/17/2018 Appointment: Carlyn Higginbotham WPtel: [address] [place], [place] [phone] (15 min) Moderate 03/10/2018 Appointment: Carlyn Higginbotham WPtel: [address] [place], [place] [phone] (15 min) Moderate 02/08/2018 Visit Plan: DM -decrease levemir to 4 units daily -monitor blood sugars TXL-ichpwagbrs-az changes Chronic pain -well controlled with fentanyl patch -no changes at this time 01/07/2018 Appointment: Carlyn Higginbotham WPtel: [phone] [phone] (15 min) Moderate 01/07/2018 Patient Education: Patient [...] AT HS 2017 Appointment: Carlyn Higginbotham WPtel: [phone] [phone] (15 min) Moderate 2017 Patient Education: [...] 175mcg. 09/09/2017 Appointment: Vonda Everett WPtel: [phone] [facility] (15 min) Moderate 09/09/2017 Patient Education: Patient [...] administration record. 06/08/2017 Appointment: Sunitha Patel WPtel: [address] [place], [place] [phone] (30 min) Complex 06/08/2017 Patient Education: Patient [...] over-medication. 04/15/2017 [phone] ([facility] min) Complex 04/15/2017 Patient Education: [...] hydrocodone today. 02/16/2017 Appointment: [phone] (15 min) Moderate 02/16/2017 Patient Education: Patient [...] concerns. 11/09/2016 [phone] (30 min) Complex 11/09/2016 Patient Education: Patient Medication Summary Completed 11/09/2016 Care Plan: Referral Order SNOMED-CT : [id number] Pending 11/09/2016 Patient Education: Patient Medication Summary [...] Follow up weight in 1 month Neck mnkb-bvcwaohzqzm-Jeme PT focus neck/upper body Right earache-cerumen removed with water pick today in the office 07/18/2015 Appointment: (30 min) Complex 07/18/2015 Patient Education: Patient Medication Summary Completed 07/18/2015 Patient Education: Obesity Completed 07/18/2015 Patient Education: .Cervicalgia Neck Pain Completed 07/18/2015 Referral: [facility] WPtel: [phone] [facility] Referral Completed 06/25/2015 Visit Plan: Hypertension - [...] get report from and [facility]. I spent over an hour with the patient in direct contact. 06/17/2015 Appointment: Vonda Everett [facility]el[facility] [phone] [phone] New Patient 06/17/2015 Patient Education: Patient Medication Summary Completed 06/17/2015 Patient Education: Obesity Completed 06/17/2015 Patient Education: Hypertension Completed 06/17/2015 Care Plan: Referral Order SNOMED-CT : [id number] Ordered 06/17/2015 Referral: Jorge Luis Carroll Referral Initiated [phone] [place] Ref[facility] Appointment Requested Instructions Comment . [...] Add 1 scoop of whey protein from [employer] to 2 feedings per day . Hypertension [...] Follow up weight in 1 month Neck fsfc-wqpmelhvlct-[facility] PT focus neck/upper body Right earache-cerumen removed [...] get report from and [facility]. I spent over an hour with [...] to 4 units daily -monitor blood sugars AZX-cgxfgqesqa-qo changes Chronic pain -well controlled with fentanyl patch -no changes at this time . PEG tube - tube has not been replaced in some time, some mild irritation noted around the tube - will refer to surgeon for PEG tube replacement. Pt/family is to notify clinic with any changes, questions, or concerns.
--- OUTSIDE RECORDS SUMMARY | 2018-08-09 11:41 | XMS REPORT | CCD ---
Author Author [facility] Organization [facility] Address [address] [place] [address] Phone Care Team Providers Care Cooper Helper Name Role Phone PP Unavailable CCM Unavailable Summary Purpose Interface Exchange Insurance Providers Payer name Policy type / Coverage type Covered alliance party ID Effective Begin Date Effective End Date WPS Medicare Part B Medicare Part B [id number] Unknown Unknown [employer] Life Insurance Medicare Part B [id number] Unknown Unknown Family history Father Diagnosis Age At Onset Arthritis Unknown Hypertension Unknown Mother Diagnosis Age At Onset Diabetes mellitus Type 2 Unknown Depression Unknown Arthritis Unknown Stroke Unknown Hypertension Unknown Sister Diagnosis Age At Onset Colon cancer Unknown Social History Social History Element Codes Description Effective Dates Marital status Unknown Maurice 01/07/2018 Living arrangements Unknown Longterm [facility] 04/15/2017 Number of children Unknown 3 06/17/2015 Employment Unknown Retired 06/17/[address]: 4255026 Quit over 10 years ago 15+ 06/17/[address]: 918874093 Never drinks alcohol 06/17/2015 Allergies, Adverse Reactions, [...] hydrocodone 10 mg-acetaminophen 325 mg tablet RxNorm: 890282 2 Tablet(s) PO scheduled TID 04/19/2018 05/18/2018 Active Not to exceed 3gm/24hr acetaminophen lorazepam 0.5 mg tablet RxNorm: 771635 1 Tablet(s) PO BID and 1 tab q 6 hours prn 04/07/2018 No Stop Date Active hyoscyamine 0.125 mg disintegrating tablet RxNorm: 3410274 Tablet(s) 1-2 Tablet(s) PO Q8 as needed 03/31/2018 No Stop Date Active Duragesic 75 mcg/hr transdermal patch RxNorm: 008779 1 Patch TD Q72H 03/31/2018 04/29/2018 Active fentanyl 100 mcg/hr transdermal patch RxNorm: 557757 1 Patch TD Q72H 03/31/2018 04/29/2018 Active carvedilol 3.125 mg tablet RxNorm: 887933 Tablet(s) GIVE 1 TABLET VIA PEG TUBE 2 TIMES A DAY 03/30/2018 06/27/2018 Active Generic For:COREG 3.125MG 10/22/2017 9:23:30 AM Voltaren 1 % topical gel RxNorm: 983904 APPLY 4 GRAMS TO RIGHT KNEE FOUR TIMES DAILY 03/30/2018 04/22/2018 Active Generic For:VOLTAREN GEL 1% 03/30/2018 11:14:57 AM hydrocodone 10 mg-acetaminophen 325 mg tablet RxNorm: 011686 2 Tablet(s) PO scheduled TID 03/23/2018 04/18/2018 Inactive Not to exceed 3gm/24hr acetaminophen Zithromax Z-Eliu 250 mg tablet RxNorm: 644730 Tablet(s) PO 03/18/2018 No Stop Date Active albuterol sulfate concentrate 5 mg/mL(0.5 %) solution for nebulization RxNorm: 028148 1 Vial Milliliter(s) INH TID PRN as needed congestion 03/18/2018 No Stop Date Active cefdinir 300 mg capsule RxNorm: 010532 1 Capsule(s) PO BID 03/18/2018 03/24/2018 Inactive Voltaren 1 % topical gel RxNorm: 465910 4 Gram(s) TOP QID 03/18/2018 03/29/2018 Inactive hydrochlorothiazide 25 mg tablet RxNorm: 804796 GIVE 1 TABLET VIA PEG TUBE ONCE DAILY 03/11/2018 09/06/2018 Active Generic For:HYDRODIURIL 25 MG TABLET 03/11/2018 9:15:32 AM fentanyl 100 mcg/hr transdermal patch RxNorm: 144024 1 Patch TD Q72H 03/02/2018 03/30/2018 Inactive Duragesic 75 mcg/hr transdermal patch RxNorm: 565990 1 Patch TD Q72H 03/02/2018 03/30/2018 Inactive hydrocodone 10 mg-acetaminophen 325 mg tablet RxNorm: 165401 2 Tablet(s) PO scheduled TID 02/18/2018 03/22/2018 Inactive Not to exceed 3gm/24hr acetaminophen hyoscyamine 0.125 mg disintegrating tablet RxNorm: 4513356 Tablet(s) 1-2 Tablet(s) PO Q8 as needed 02/08/2018 03/30/2018 Inactive fentanyl 100 mcg/hr transdermal patch RxNorm: 189419 1 Patch TD Q72H 02/04/2018 03/01/2018 Inactive hydrocodone 10 mg-acetaminophen 325 mg tablet RxNorm: 518815 2 Tablet(s) PO scheduled TID 02/04/2018 02/17/2018 Inactive Not to exceed 3gm/24hr acetaminophen Duragesic 75 mcg/hr transdermal patch RxNorm: 501975 1 Patch TD Q72H 02/04/2018 03/01/2018 Inactive Levemir FlexTouch U-100 Insulin 100 unit/mL (3 mL) subcutaneous pen RxNorm: 132733 4 Unit(s) SQ QHS 01/07/2018 No Stop Date Active Duragesic 75 mcg/hr transdermal patch RxNorm: 232802 1 Patch TD Q72H 01/07/2018 02/03/2018 Inactive fentanyl 100 mcg/hr transdermal patch RxNorm: 703706 1 Patch TD Q72H 01/07/2018 02/03/2018 Inactive hydrocodone 10 mg-acetaminophen 325 mg tablet RxNorm: 879754 2 Tablet(s) PO scheduled TID 01/05/2018 02/03/2018 Inactive Not to exceed 3gm/24hr acetaminophen hydrocodone 10 mg-acetaminophen 325 mg tablet RxNorm: 187891 2 Tablet(s) PO scheduled TID and 1 tab q 4 as needed 01/04/2018 01/04/2018 Inactive Not to exceed 3gm/24hr acetaminophen cyanocobalamin (vit B-12) 1,000 mcg tablet RxNorm: 413882 1 Tablet(s) PO daily 12/28/2017 11/22/2018 Active baclofen 10 mg tablet RxNorm: 731266 Tablet(s) TAKE 1 TABLET THREE TIMES DAILY VIA STOMACH TUBE 12/27/2017 05/25/2018 Active 10/07/2017 5:36:15 PM 10/07/2017 5:36:13 PM N O T I C E Last quantity doesn't match original quantity Duragesic 75 mcg/hr transdermal patch RxNorm: 803895 1 Patch TD Q72H 12/22/2017 01/06/2018 Inactive fentanyl 100 mcg/hr transdermal patch RxNorm: 359796 1 Patch TD Q72H 12/22/2017 01/06/2018 Inactive hydrocodone 10 mg-acetaminophen 325 mg tablet RxNorm: 602766 2 Tablet(s) PO scheduled TID and 1 tab q 4 as needed 12/20/2017 01/03/2018 Inactive Not to exceed 3gm/24hr acetaminophen hyoscyamine 0.125 mg disintegrating tablet RxNorm: 2236216 1-2 Tablet(s) PO Q8 as needed 12/14/2017 02/07/2018 Inactive Duragesic 75 mcg/hr transdermal patch RxNorm: 315659 1 Patch TD Q72H 12/06/2017 12/21/2017 Inactive fentanyl 100 mcg/hr transdermal patch RxNorm: 488523 1 Patch TD Q72H 12/06/2017 12/21/2017 Inactive hydrocodone 10 mg-acetaminophen 325 mg tablet RxNorm: 261039 2 Tablet(s) PO scheduled TID and 1 tab q 4 as needed 11/29/2017 12/19/2017 Inactive Not to exceed 3gm/24hr acetaminophen Duragesic 75 mcg/hr transdermal patch RxNorm: 237474 1 Patch TD Q72H 11/11/2017 12/05/2017 Inactive hydrocodone 10 mg-acetaminophen 325 mg tablet RxNorm: 415014 2 Tablet(s) PO scheduled TID and 1 tab q 4 as needed 11/09/2017 11/28/2017 Inactive Not to exceed 3gm/24hr acetaminophen Levemir FlexTouch U-100 Insulin 100 unit/mL (3 mL) subcutaneous pen RxNorm: 549536 8 Unit(s) SQ QHS 11/09/2017 01/06/2018 Inactive fentanyl 100 mcg/hr transdermal patch RxNorm: 424928 1 Patch TD Q72H 2017 12/05/2017 Inactive hyoscyamine 0.125 mg disintegrating tablet RxNorm: 3456416 1-2 Tablet(s) PO Q8 as needed 11/03/2017 12/13/2017 Inactive carvedilol 3.125 mg tablet RxNorm: 369813 GIVE 1 TABLET VIA PEG TUBE 2 TIMES A DAY 10/22/2017 01/19/2018 Inactive Generic For:COREG 3.125MG 10/22/2017 9:23:30 AM hydrocodone 10 mg-acetaminophen 325 mg tablet RxNorm: 380552 2 Tablet(s) PO scheduled TID and 1 tab q 4 as needed 10/22/2017 2017 Inactive Not to exceed 3gm/24hr acetaminophen fentanyl 100 mcg/hr transdermal patch RxNorm: 681864 1 Patch TD Q72H 10/20/2017 11/07/2017 Inactive Duragesic 75 mcg/hr transdermal patch RxNorm: 288576 1 Patch TD Q72H 10/20/2017 11/10/2017 Inactive lorazepam 0.5 mg tablet RxNorm: 131322 1 Tablet(s) PO BID and 1 tab q 6 hours prn 10/18/2017 No Stop Date Active baclofen 10 mg tablet RxNorm: 191500 TAKE 1 TABLET THREE TIMES DAILY VIA STOMACH TUBE 10/07/2017 12/26/2017 Inactive 10/07/2017 5:36:15 PM 10/07/2017 5:36:13 PM N O T I C E Last quantity doesn't match original quantity cranberry extract 500 mg tablet RxNorm: 6219912 1 Tablet(s) PO QAM 10/04/2017 01/31/2018 Inactive Cipro 500 mg tablet RxNorm: 398804 1 Tablet(s) PO BID 10/04/2017 10/03/2017 Inactive dc keflex hydrocodone 10 mg-acetaminophen 325 mg tablet RxNorm: 767417 2 Tablet(s) PO scheduled TID as needed 10/04/2017 10/21/2017 Inactive Not to exceed 3gm/24hr acetaminophen cranberry extract 500 mg tablet RxNorm: 2470817 1 Tablet(s) PO QAM 10/04/2017 10/03/2017 Inactive Cipro 500 mg tablet RxNorm: 858950 1 Tablet(s) PO BID 10/04/2017 10/10/2017 Inactive dc keflex Duragesic 75 mcg/hr transdermal patch RxNorm: 609688 1 Patch TD Q72H 09/20/2017 10/19/2017 Inactive fentanyl 100 mcg/hr transdermal patch RxNorm: 545647 1 Patch TD Q72H 09/20/2017 10/19/2017 Inactive hyoscyamine 0.125 mg disintegrating tablet RxNorm: 9634028 1 Tablet(s) PO TID and 1 Tablet Q4H prn increased secretions 09/15/2017 11/02/2017 Inactive hydrocodone 10 mg-acetaminophen 325 mg tablet RxNorm: 030390 2 Tablet(s) PO scheduled TID and 1-2 Tabs Q4H PRN pain 09/15/2017 10/03/2017 Inactive Not to exceed 3gm/24hr acetaminophen lorazepam 0.5 mg tablet RxNorm: 989989 1 Tablet(s) PO BID 09/15/2017 10/17/2017 Inactive Lexapro 10 mg tablet RxNorm: 341890 1 Tablet(s) PO daily 09/10/2017 09/14/2017 Inactive lisinopril 10 mg tablet RxNorm: 770350 1 Tablet(s) PO daily 09/09/2017 06/05/2018 Active Levemir FlexTouch U-100 Insulin 100 unit/mL (3 mL) subcutaneous pen RxNorm: 804894 10 Unit(s) daily 09/09/2017 09/15/2017 Inactive Duragesic 75 mcg/hr transdermal patch RxNorm: 512254 1 Patch TD Q72H 09/09/2017 09/19/2017 Inactive nystatin 100,000 unit/gram topical cream RxNorm: 230437 1 Gram(s) TOP TID until healed to gaulding 09/06/2017 01/03/2018 Inactive nystatin 100,000 unit/gram topical cream RxNorm: 712167 1 Gram(s) TOP TID until healed to gaulding 09/06/2017 09/05/2017 Inactive hydrocodone 10 mg-acetaminophen 325 mg tablet RxNorm: 860943 2 Tablet(s) PO scheduled TID as needed 08/31/2017 09/14/2017 Inactive Not to exceed 3gm/24hr acetaminophen fentanyl 100 mcg/hr transdermal patch RxNorm: 652922 1 Patch TD Q72H 08/24/2017 09/19/2017 Inactive fentanyl 50 mcg/hr transdermal patch RxNorm: 026136 1 Patch TD Q72H 08/24/2017 09/08/2017 Inactive fentanyl 25 mcg/hr transdermal patch RxNorm: 140437 1 Patch TD Q72H 08/24/2017 08/24/2017 Inactive hyoscyamine 0.125 mg disintegrating tablet RxNorm: 9829319 Tablet(s) 1-2 Tablet(s) PO Q8 as needed 08/23/2017 09/14/2017 Inactive hydrocodone 10 mg-acetaminophen 325 mg tablet RxNorm: 094295 1 Tablet(s) PO scheduled TID et Q6 hours as needed 08/18/2017 08/30/2017 Inactive Not to exceed 3gm/24hr acetaminophen hydrochlorothiazide 25 mg tablet RxNorm: 012707 GIVE 1 TABLET VIA PEG TUBE ONCE DAILY 08/17/2017 02/12/2018 Inactive Generic For:HYDRODIURIL 25 MG TABLET 08/17/2017 9:01:54 AM08/11/2017 10:12:00 AM lorazepam 0.5 mg tablet RxNorm: 349599 1/2 Tablet(s) PO BID 08/03/2017 09/14/2017 Inactive fentanyl 100 mcg/hr transdermal patch RxNorm: 579236 1 Patch TD Q72H 07/26/2017 08/23/2017 Inactive fentanyl 25 mcg/hr transdermal patch RxNorm: 473023 1 Patch TD Q72H 07/26/2017 08/23/2017 Inactive hydrocodone 10 mg-acetaminophen 325 mg tablet RxNorm: 416264 1 Tablet(s) PO scheduled TID et Q6 hours as needed 07/16/2017 08/14/2017 Inactive Not to exceed 3gm/24hr acetaminophen hyoscyamine 0.125 mg disintegrating tablet RxNorm: 1017904 Tablet(s) 1-2 Tablet(s) PO Q8 as needed 07/13/2017 08/01/2017 Inactive baclofen 10 mg tablet RxNorm: 685471 TAKE 1 TABLET THREE TIMES DAILY VIA STOMACH TUBE 07/12/2017 10/06/2017 Inactive 07/12/2017 9:04:08 AM N O T I C E Last quantity doesn't match original quantity lorazepam 0.5 mg tablet RxNorm: 965779 1/2 Tablet(s) PO BID 07/02/2017 08/02/2017 Inactive fentanyl 100 mcg/hr transdermal patch RxNorm: 527306 1 Patch TD Q72H 06/28/2017 07/25/2017 Inactive fentanyl 25 mcg/hr transdermal patch RxNorm: 490236 1 Patch TD Q72H 06/28/2017 07/25/2017 Inactive hyoscyamine 0.125 mg disintegrating tablet RxNorm: 0749557 Tablet(s) 1-2 Tablet(s) PO Q8 as needed 06/03/2017 06/22/2017 Inactive fentanyl 25 mcg/hr transdermal patch RxNorm: 861668 1 Patch TD Q72H 05/26/2017 06/24/2017 Inactive Levemir FlexTouch U-100 Insulin 100 unit/mL (3 mL) subcutaneous pen RxNorm: 778699 20 Unit(s) SQ BID 05/26/2017 09/08/2017 Inactive fentanyl 100 mcg/hr transdermal patch RxNorm: 931962 1 Patch TD Q72H 05/26/2017 06/24/2017 Inactive hydrocodone 10 mg-acetaminophen 325 mg tablet RxNorm: 763934 1 Tablet(s) PO scheduled BID et Q6 hours as needed 05/12/2017 05/11/2017 Inactive hydrocodone 10 mg-acetaminophen 325 mg tablet RxNorm: 706096 1 Tablet(s) PO scheduled TID et Q6 hours as needed 05/12/2017 06/10/2017 Inactive Not to exceed 3gm/24hr acetaminophen docusate sodium 100 mg tablet RxNorm: 6297717 1 Tablet(s) PO BID as needed if no bowel movement 05/10/2017 05/09/2017 Inactive lisinopril 20 mg tablet RxNorm: 929828 1 Tablet(s) PO daily 05/10/2017 09/08/2017 Inactive docusate sodium 100 mg tablet RxNorm: 0178907 1 Tablet(s) PO BID as needed if no bowel movement 05/10/2017 09/14/2017 Inactive fentanyl 25 mcg/hr transdermal patch RxNorm: 597541 1 Patch TD Q72H 05/03/2017 05/25/2017 Inactive lorazepam 0.5 mg tablet RxNorm: 281603 1/2 Tablet(s) PO BID 05/03/2017 07/01/2017 Inactive fentanyl 100 mcg/hr transdermal patch RxNorm: 733897 1 Patch TD Q72H 04/27/2017 05/25/2017 Inactive carvedilol 3.125 mg tablet RxNorm: 247594 Tablet(s) GIVE 1 TABLET VIA PEG TUBE DAILY 04/15/2017 10/21/2017 Inactive Levemir FlexTouch 100 unit/mL (3 mL) subcutaneous insulin pen RxNorm: 601896 10 Unit(s) SQ BID 04/15/2017 2017 Inactive hyoscyamine 0.125 mg disintegrating tablet RxNorm: 0178265 1-2 Tablet(s) PO Q8 as needed 04/14/2017 05/03/2017 Inactive hydrocodone 10 mg-acetaminophen 325 mg tablet RxNorm: 274466 1 Tablet(s) PO scheduled BID et Q6 hours as needed 04/13/2017 05/02/2017 Inactive baclofen 10 mg tablet RxNorm: 083894 TAKE 1 TABLET THREE TIMES DAILY VIA STOMACH TUBE 04/08/2017 05/22/2017 Inactive 04/08/2017 9:32:07 AM fentanyl 25 mcg/hr transdermal patch RxNorm: 257030 1 Patch TD Q72H 04/05/2017 05/02/2017 Inactive lidocaine 10 mg/mL (1 %) injection solution RxNorm: 7857972 1 Milliliter(s) Inj daily Mix with rocephin 03/31/2017 03/30/2017 Inactive Pt resides at [facility] lidocaine 10 mg/mL (1 %) injection solution RxNorm: 7473017 1 Milliliter(s) Inj daily Mix with rocephin 03/31/2017 04/06/2017 Inactive Pt resides at [facility] fentanyl 100 mcg/hr transdermal patch RxNorm: 352798 1 Patch TD Q72H 03/29/2017 04/26/2017 Inactive nystatin 100,000 unit/gram topical powder RxNorm: 900927 APPLY UNDER BREASTS TWICE DAILY FOR YEAST SKIN INFECTION AND APPLY TO UNDERARM AND ABDOMINAL FOLDS AND PERIAREA TWICE DAILY 03/29/2017 03/28/2017 Inactive 03/27/2017 9:12:50 AM nystatin 100,000 unit/gram topical powder RxNorm: 803927 APPLY UNDER BREASTS TWICE DAILY FOR YEAST SKIN INFECTION AND APPLY TO UNDERARM AND ABDOMINAL FOLDS AND PERIAREA TWICE DAILY 03/29/2017 09/14/2017 Inactive 03/29/2017 9:42:55 AM03/27/2017 9:12:50 AM hyoscyamine 0.125 mg disintegrating tablet RxNorm: 3214797 1-2 Tablet(s) PO Q8 as needed 03/08/2017 03/27/2017 Inactive fentanyl 25 mcg/hr transdermal patch RxNorm: 924163 1 Patch TD Q72H 03/02/2017 03/31/2017 Inactive hydrocodone 10 mg-acetaminophen 325 mg tablet RxNorm: 183678 1 Tablet(s) PO scheduled BID et Q6 hours as needed 02/17/2017 03/18/2017 Inactive fentanyl 100 mcg/hr transdermal patch RxNorm: 172861 1 Patch TD Q72H 02/17/2017 03/18/2017 Inactive Lexapro 10 mg tablet RxNorm: 076733 1 Tablet(s) PO daily 02/05/2017 04/14/2017 Inactive Lexapro 10 mg tablet RxNorm: 897612 1 Tablet(s) PO daily 02/05/2017 02/04/2017 Inactive fentanyl 25 mcg/hr transdermal patch RxNorm: 308435 1 Patch TD Q72H 02/04/2017 03/01/2017 Inactive cyanocobalamin (vit B-12) 1,000 mcg tablet RxNorm: 266591 1 Tablet(s) PO daily 01/18/2017 12/13/2017 Inactive hyoscyamine 0.125 mg disintegrating tablet RxNorm: 9469574 Tablet(s) 1-2 Tablet(s) PO Q8 as needed 01/18/2017 02/06/2017 Inactive baclofen 10 mg tablet RxNorm: 897363 TAKE 1 TABLET THREE TIMES DAILY VIA STOMACH TUBE 01/04/2017 02/17/2017 Inactive 01/04/2017 9:25:18 AM fentanyl 100 mcg/hr transdermal patch RxNorm: 695572 1 Patch TD Q72H 12/25/2016 01/23/2017 Inactive hydrochlorothiazide 25 mg tablet RxNorm: 037378 Tablet(s) GIVE 1 TABLET VIA PEG TUBE ONCE A DAY 12/14/2016 07/11/2017 Inactive fentanyl 100 mcg/hr transdermal patch RxNorm: 851272 1 Patch TD Q72H 11/25/2016 12/24/2016 Inactive hyoscyamine 0.125 mg disintegrating tablet RxNorm: 9854582 Tablet(s) 1-2 Tablet(s) PO Q8 as needed 11/25/2016 12/14/2016 Inactive nystatin 100,000 unit/gram topical powder RxNorm: 228123 APPLY UNDER BREASTS TWICE DAILY FOR YEAST SKIN INFECTION AND APPLY TO UNDERARM AND ABDOMINAL FOLDS AND PERIAREA TWICE DAILY 11/24/2016 01/22/2017 Inactive 11/24/2016 9:34:02 AM hydrocodone 10 mg-acetaminophen 325 mg tablet RxNorm: 766223 1 Tablet(s) PO scheduled BID et Q6 hours as needed 11/02/2016 12/01/2016 Inactive cyanocobalamin (vit B-12) 1,000 mcg tablet RxNorm: 811483 1 Tablet(s) PO daily 11/02/2016 01/17/2017 Inactive hyoscyamine 0.125 mg disintegrating tablet RxNorm: 8396697 1-2 Tablet(s) PO Q8 as needed 10/19/2016 11/24/2016 Inactive fentanyl 100 mcg/hr transdermal patch RxNorm: 990573 1 Patch TD Q72H 10/13/2016 11/11/2016 Inactive hydrocodone 10 mg-acetaminophen 325 mg tablet RxNorm: 230936 1 Tablet(s) PO scheduled BID et Q6 hours as needed 10/05/2016 11/01/2016 Inactive baclofen 10 mg tablet RxNorm: 632689 TAKE 1 TABLET THREE TIMES DAILY VIA STOMACH TUBE 10/01/2016 11/14/2016 Inactive 10/01/2016 9:24:37 AM carvedilol 3.125 mg tablet RxNorm: 817978 GIVE 1 TABLET VIA PEG TUBE 2 TIMES A DAY 09/30/2016 12/28/2016 Inactive Generic For:COREG 3.125MG 09/30/2016 1:12:28 PM09/25/2016 9:06:11 AM Probiotic Blend 2 million cell-50 mg capsule RxNorm: 1 Capsule(s) PO BID 09/17/2016 09/23/2016 Inactive Keflex 500 mg capsule RxNorm: 440776 1 Capsule(s) PO TID 09/17/2016 09/23/2016 Inactive hyoscyamine 0.125 mg/5 mL oral elixir RxNorm: 2179618 5 Milliliter(s) PO TID 09/08/2016 09/17/2016 Inactive hyoscyamine 0.125 mg/5 mL oral elixir RxNorm: 4072973 5 Milliliter(s) PO TID 09/08/2016 09/07/2016 Inactive hyoscyamine 0.125 mg disintegrating tablet RxNorm: 1774857 1-2 Tablet(s) PO Q8 as needed 09/07/2016 10/18/2016 Inactive fentanyl 100 mcg/hr transdermal patch RxNorm: 661548 1 Patch TD Q72H 09/01/2016 09/30/2016 Inactive ranitidine 150 mg tablet RxNorm: 614735 1 Tablet(s) PO BID 08/25/2016 No Stop Date Active hydrocodone 10 mg-acetaminophen 325 mg tablet RxNorm: 725978 1 Tablet(s) PO scheduled BID et Q6 hours as needed 08/24/2016 09/22/2016 Inactive cyanocobalamin (vit B-12) 1,000 mcg tablet RxNorm: 941467 1 Tablet(s) PO daily 08/12/2016 11/01/2016 Inactive cyanocobalamin (vit B-12) 1,000 mcg tablet RxNorm: 809726 1 Tablet(s) PO daily 08/12/2016 08/11/2016 Inactive hydrocodone 10 mg-acetaminophen 325 mg tablet RxNorm: 931167 1-2 Tablet(s) PO Q6 as needed 08/03/2016 08/17/2016 Inactive fentanyl 100 mcg/hr transdermal patch RxNorm: 258752 1 Patch TD Q72H 08/03/2016 08/31/2016 Inactive nystatin 100,000 unit/gram topical powder RxNorm: 130307 APPLY UNDER BREASTS TWICE DAILY FOR YEAST SKIN INFECTION AND APPLY TO UNDERARM AND ABDOMINAL FOLDS AND PERIAREA TWICE DAILY 07/17/2016 09/14/2016 Inactive 07/17/2016 3:56:54 PM fentanyl 100 mcg/hr transdermal patch RxNorm: 073054 1 Patch TD Q72H 07/15/2016 08/02/2016 Inactive lisinopril 20 mg tablet RxNorm: 042379 1 Tablet(s) PO daily 07/02/2016 03/28/2017 Inactive hydrocodone 10 mg-acetaminophen 325 mg tablet RxNorm: 876530 1-2 Tablet(s) PO Q6 as needed 07/01/2016 07/15/2016 Inactive Xarelto 20 mg tablet RxNorm: 9631191 Tablet(s) TAKE 1 TABLET VIA PEG TUBE AT BEDTIME 06/19/2016 04/14/2017 Inactive fentanyl 100 mcg/hr transdermal patch RxNorm: 073967 1 Patch TD Q72H 06/17/2016 07/14/2016 Inactive nystatin 100,000 unit/gram topical powder RxNorm: 263885 APPLY TO UNDER BREASTS TWICE DAILY FOR YEAST SKIN INFECTION AND APPLY TO UNDERARM AND ABDOMINAL FOLDS AND PERIAREA TWICE DAILY 06/15/2016 07/16/2016 Inactive Generic For:MYCOSTATIN 100,000 UNITS/GM PW 06/15/2016 12:28:26 PM fentanyl 100 mcg/hr transdermal patch RxNorm: 841938 1 Patch TD Q72H 06/05/2016 06/16/2016 Inactive hydrocodone 10 mg-acetaminophen 325 mg tablet RxNorm: 304741 1-2 Tablet(s) PO Q6 as needed 06/02/2016 06/16/2016 Inactive Probiotic Blend 2 million cell-50 mg capsule RxNorm: 1 Capsule(s) PO BID 05/13/2016 05/19/2016 Inactive nitrofurantoin 100 mg capsule RxNorm: 866502 1 Capsule(s) PO BID 05/13/2016 05/19/2016 Inactive nitrofurantoin 100 mg capsule RxNorm: 054252 1 Capsule(s) PO BID 05/13/2016 05/12/2016 Inactive fentanyl 75 mcg/hr transdermal patch RxNorm: 907116 1 Patch TD Q72H 05/13/2016 06/04/2016 Inactive Keflex 500 mg capsule RxNorm: 850932 1 Capsule(s) PO TID 05/07/2016 05/13/2016 Inactive Patient at [facility] Keflex 500 mg capsule RxNorm: 762985 1 Capsule(s) PO TID 05/07/2016 05/06/2016 Inactive hydrocodone 10 mg-acetaminophen 325 mg tablet RxNorm: 689915 1-2 Tablet(s) PO Q6 as needed 05/04/2016 06/01/2016 Inactive hydrochlorothiazide 25 mg tablet RxNorm: 760529 Tablet(s) GIVE 1 TABLET VIA PEG TUBE ONCE A DAY 04/29/2016 11/24/2016 Inactive hydrochlorothiazide 25 mg tablet RxNorm: 614251 GIVE 1 TABLET VIA PEG TUBE ONCE A DAY 04/22/2016 04/28/2016 Inactive Generic For:HYDRODIURIL 25 MG TABLET refill request fentanyl 75 mcg/hr transdermal patch RxNorm: 190433 1 Patch TD Q72H 04/17/2016 05/12/2016 Inactive Xarelto 20 mg tablet RxNorm: 5830057 TAKE 1 TABLET VIA PEG TUBE AT BEDTIME 04/16/2016 06/14/2016 Inactive 04/16/2016 9:08:52 AM citalopram 40 mg tablet RxNorm: 733762 1 Tablet(s) PO daily 04/02/2016 02/25/2017 Inactive citalopram 40 mg tablet RxNorm: 749140 1 Tablet(s) PO daily 03/27/2016 04/01/2016 Inactive hydrocodone 10 mg-acetaminophen 325 mg tablet RxNorm: 836591 1-2 Tablet(s) PO Q6 as needed 03/27/2016 04/25/2016 Inactive fentanyl 75 mcg/hr transdermal patch RxNorm: 206237 1 Patch TD Q72H 03/18/2016 04/16/2016 Inactive hydrocodone 10 mg-acetaminophen 325 mg tablet RxNorm: 482738 1-2 Tablet(s) PO Q6 as needed 03/11/2016 03/26/2016 Inactive citalopram 40 mg tablet RxNorm: 809265 1 Tablet(s) PO daily 03/04/2016 03/26/2016 Inactive Levemir FlexTouch U-100 Insulin 100 unit/mL (3 mL) subcutaneous pen RxNorm: 318605 20 Unit(s) SQ BID 03/02/2016 09/27/2016 Inactive lisinopril 20 mg tablet RxNorm: 285240 1 Tablet(s) PO daily 02/25/2016 07/01/2016 Inactive Ativan 0.5 mg tablet RxNorm: 662227 1 Tablet(s) PO Q4H as needed 02/18/2016 04/14/2017 Inactive Xarelto 20 mg tablet RxNorm: 3916102 TAKE 1 TABLET VIA PEG TUBE AT BEDTIME 02/12/2016 04/11/2016 Inactive 02/12/2016 9:08:22 AM hydrocodone 10 mg-acetaminophen 325 mg tablet RxNorm: 352894 1-2 Tablet(s) PO Q6 as needed 02/12/2016 03/10/2016 Inactive fentanyl 75 mcg/hr transdermal patch RxNorm: 954541 1 Patch TD Q72H 02/11/2016 03/11/2016 Inactive citalopram 20 mg tablet RxNorm: 309833 1 Tablet(s) PO daily 01/28/2016 03/03/2016 Inactive fentanyl 75 mcg/hr transdermal patch RxNorm: 541934 1 TD Q72H 01/17/2016 02/10/2016 Inactive hydrocodone 10 mg-acetaminophen 325 mg tablet RxNorm: 943797 1-2 Tablet(s) PO Q6 as needed 01/07/2016 02/05/2016 Inactive fentanyl 50 mcg/hr transdermal patch RxNorm: 719163 1 TD Q72H 01/01/2016 01/16/2016 Inactive fentanyl 50 mcg/hr transdermal patch RxNorm: 284148 1 TD q 3 days 12/26/2015 12/31/2015 Inactive Xarelto 20 mg tablet RxNorm: 9010498 TAKE 1 TABLET VIA PEG TUBE AT BEDTIME 12/17/2015 02/11/2016 Inactive 12/16/2015 3:27:57 PM12/14/2015 9:45:17 AM hydrocodone 10 mg-acetaminophen 325 mg tablet RxNorm: 255171 1-2 Tablet(s) PO Q6 as needed 12/06/2015 01/04/2016 Inactive fentanyl 50 mcg/hr transdermal patch RxNorm: 710606 1 TD q 3 days 12/06/2015 12/25/2015 Inactive fentanyl 25 mcg/hr transdermal patch RxNorm: 763557 1 TD q 3 days 11/18/2015 12/05/2015 Inactive Zithromax Z-Eliu 250 mg tablet RxNorm: 548850 1 Tablet(s) PO UD 10/09/2015 02/26/2016 Inactive z pack as directed- please write out instructions- pt at [facility] nystatin 100,000 unit/gram topical powder RxNorm: 627974 APPLY TO UNDER BREASTS TWICE DAILY FOR YEAST SKIN INFECTION AND APPLY TO UNDERARM AND ABDOMINAL FOLDS AND PERIAREA TWICE DAILY 10/07/2015 12/05/2015 Inactive Generic For:MYCOSTATIN 100,000 UNITS/GM PW 10/05/2015 12:07:35 PM fentanyl 25 mcg/hr transdermal patch RxNorm: 460416 1 TD q 3 days 10/03/2015 11/01/2015 Inactive fentanyl 25 mcg/hr transdermal patch RxNorm: 453032 1 TD q 3 days 09/27/2015 10/02/2015 Inactive fentanyl 25 mcg/hr transdermal patch RxNorm: 987413 1 TD q 3 days 09/17/2015 09/26/2015 Inactive fentanyl 25 mcg/hr transdermal patch RxNorm: 311126 1 TD q 3 days 08/30/2015 09/16/2015 Inactive hydrocodone 5 mg-acetaminophen 325 mg tablet RxNorm: 606302 1 Tablet(s) PO Q6 as needed 08/30/2015 09/28/2015 Inactive Diflucan 100 mg tablet RxNorm: 688758 1 Tablet(s) Miscellaneous per peg daily 07/29/2015 08/04/2015 Inactive fentanyl 25 mcg/hr transdermal patch RxNorm: 951996 1 TD q 3 days 07/18/2015 08/29/2015 Inactive hydrocodone 5 mg-acetaminophen 325 mg tablet RxNorm: 051683 1 Tablet(s) PO Q6 as needed 07/18/2015 08/29/2015 Inactive Diflucan 100 mg tablet RxNorm: 640129 1 Tablet(s) Miscellaneous per peg daily 06/17/2015 06/23/2015 Inactive Senna-S 8.6 mg-50 mg tablet RxNorm: 054994 1 Tablet(s) PO daily as needed constipation No Start Date Active Dulcolax (bisacodyl) 10 mg rectal suppository RxNorm: 789808 1 Suppository RTL daily as needed constipation No Start Date Active polyethylene glycol 3350 17 gram/dose oral powder RxNorm: 295075 17 Gram(s) PO daily as needed constipation No Start Date Active baclofen 10 mg tablet RxNorm: 527105 1 Tablet(s) PO TID No Start Date 09/30/2016 Inactive Ativan 0.5 mg tablet RxNorm: 378199 1 Tablet(s) PO Q4H as needed No Start Date 02/17/2016 Inactive ranitidine 150 mg tablet RxNorm: 190041 1 Tablet(s) PO daily No Start Date 08/24/2016 Inactive carvedilol 3.125 mg tablet RxNorm: 179416 1 Tablet(s) PO daily No Start Date 09/29/2016 Inactive citalopram 40 mg tablet RxNorm: 639298 1 Tablet(s) PO daily No Start Date 01/27/2016 Inactive Probiotic Blend oral RxNorm: oral No Start Date 05/12/2016 Inactive hydrochlorothiazide 25 mg tablet RxNorm: 251923 1 Tablet(s) PO daily No Start Date 04/21/2016 Inactive albuterol sulfate concentrate 5 mg/mL(0.5 %) solution for nebulization RxNorm: 664533 1 Vial INH daily as needed congestion No Start Date 03/17/2018 Inactive Levemir FlexTouch 100 unit/mL (3 mL) subcutaneous insulin pen RxNorm: 489880 10 Unit(s) SQ BID No Start Date 03/01/2016 Inactive Zithromax Z-Eliu 250 mg tablet RxNorm: 101626 1 Tablet(s) PO UD No Start Date 10/08/2015 Inactive z pack as directed- please write out instructions- pt at [facility] nystatin 100,000 unit/gram topical powder RxNorm: 035496 Gram(s) TOP BID as needed No Start Date 10/06/2015 Inactive pravastatin 40 mg tablet RxNorm: 088808 Tablet(s) PO daily No Start Date 04/14/2017 Inactive lorazepam 0.5 mg tablet RxNorm: 597597 1/2 Tablet(s) PO BID No Start Date 05/02/2017 Inactive Xarelto 20 mg tablet RxNorm: 8518493 1 Tablet(s) PO daily No Start Date 12/16/2015 Inactive fentanyl 25 mcg/hr transdermal patch RxNorm: 517559 1 TD q 3 days No Start Date 07/17/2015 Inactive lisinopril 20 mg tablet RxNorm: 598290 1 Tablet(s) PO daily No Start Date 02/24/2016 Inactive hydrocodone 5 mg-acetaminophen 325 mg tablet RxNorm: 498135 1 Tablet(s) PO Q6 as needed No Start Date 07/17/2015 Inactive citalopram 40 mg tablet RxNorm: 393826 1 Tablet(s) PO daily No Start Date 03/03/2016 Inactive hyoscyamine 0.125 mg disintegrating tablet RxNorm: 0355632 1-2 Tablet(s) PO Q8 as needed No [...] Result Date Cbc With Differential Ord2 WBC 6.39 K/ul [...] 30.7 pg 02/14/2018 Cbc With Differential Ord2 [place]% 7.4 % 02/14/2018 Cbc With Differential Ord2 [...] 2.14 K/ul 02/14/2018 Cbc With Differential Ord2 [place] ABS# 0.5 K/ul 02/14/2018 Cbc With Differential Ord2 Eos ABS# 0.3 K/ul 02/14/2018 Cbc With Differential Ord2 Baso ABS# 0.0 K/ul 02/14/2018 Comp Metabolic Mnh746 NA 142 mEq/L 02/14/2018 Comp Metabolic Oet087 K 4.5 mEq/L 02/14/2018 Comp Metabolic Ghs386 CL 97 mEq/L 02/14/2018 Comp Metabolic Kip590 CO2 41.0 mEq/L 02/14/2018 Comp Metabolic Chm609 ANION GAP 9 02/14/2018 Comp Metabolic Nqs748 GLUCOSE 111 mg/dL 02/14/2018 Comp Metabolic Lui028 Creat 0.6 mg/dL 02/14/2018 Comp Metabolic Hee840 eGFR 108 ml/min/1.73m2 02/14/2018 Comp Metabolic Rqn656 BUN 32 mg/dL 02/14/2018 Comp Metabolic Dyr661 B/C Ratio 54.2 Ratio 02/14/2018 Comp Metabolic Mha594 CALCIUM 8.9 mg/dL 02/14/2018 Comp Metabolic Nno291 ALK PHOS 81 U/L 02/14/2018 Comp Metabolic Voa986 AST(SGOT) 14 U/L 02/14/2018 Comp Metabolic Cyd410 ALT(SGPT) 11 U/L 02/14/2018 Comp Metabolic Xmm918 BILI T 0.3 mg/dL 02/14/2018 Comp Metabolic Lii619 ALBUMIN 3.4 g/dL 02/14/2018 Comp Metabolic Fhn622 TPRO 6.3 g/dL 02/14/2018 Comp Metabolic Tgc128 GLOB 2.9 g/dL 02/14/2018 Comp Metabolic Ufo121 A/G Ratio 1.2 Ratio 02/14/2018 Comp Metabolic Mun661 Osmo 291 mOsmo 02/14/2018 %Hba1C Odc426 % HbA1c 63696- 6 5.5 % 02/14/2018 %Hba1C Gew989 Gluc Ave 111 mg/dL 02/14/2018 Prealbumin 627673 PREALBUMIN 27 mg/dL 11/24/2017 %Hba1C Jmn833 % HbA1c 59388- 6 5.5 % 11/04/2017 %Hba1C Oid798 Gluc Ave 111 mg/dL 11/04/2017 Culture Urine [id number] URINE CULTURE SEE NOTES 10/04/2017 Culture Urine [id number] Continued Results 10/04/2017 Urine Culture Ucult Complete [...] Ord28 U-Com Culture to follow 10/01/2017 B12 Yfx628 B12 >1500.00 pg/ml 02/19/2017 Cbc With Differential [...] 31.5 pg 02/02/2017 Cbc With Differential Ord2 [place]% 8.3 % 02/02/2017 Cbc With Differential Ord2 [...] 2.28 K/ul 02/02/2017 Cbc With Differential Ord2 [place] ABS# 0.6 K/ul 02/02/2017 Cbc With Differential Ord2 Eos ABS# 0.4 K/ul 02/02/2017 Cbc With Differential Ord2 Baso ABS# 0.0 K/ul 02/02/2017 %Hba1C Lmy936 % HbA1c 47566- 6 5.2 % 02/02/2017 %Hba1C Gia347 Gluc Ave 103 mg/dL 02/02/2017 Comp Metabolic Ypv786 NA 138 mEq/L 02/02/2017 Comp Metabolic Laq327 K 4.5 mEq/L 02/02/2017 Comp Metabolic Obc223 CL 98 mEq/L 02/02/2017 Comp Metabolic Pri801 CO2 37.0 mEq/L 02/02/2017 Comp Metabolic Xhh737 ANION GAP 8 02/02/2017 Comp Metabolic Ivu242 GLUCOSE 94 mg/dL 02/02/2017 Comp Metabolic Bbk818 Creat 0.7 mg/dL 02/02/2017 Comp Metabolic Wmt253 eGFR 88 ml/min/1.73m2 02/02/2017 Comp Metabolic Zre142 BUN 36 mg/dL 02/02/2017 Comp Metabolic Xxb898 B/C Ratio 50.7 Ratio 02/02/2017 Comp Metabolic Geq732 CALCIUM 9.0 mg/dL 02/02/2017 Comp Metabolic Hpn490 ALK PHOS 78 U/L 02/02/2017 Comp Metabolic Exs727 AST(SGOT) 22 U/L 02/02/2017 Comp Metabolic Cob047 ALT(SGPT) 28 U/L 02/02/2017 Comp Metabolic Oyg431 BILI T 0.3 mg/dL 02/02/2017 Comp Metabolic Cwu854 ALBUMIN 3.3 g/dL 02/02/2017 Comp Metabolic Uti886 TPRO 5.9 g/dL 02/02/2017 Comp Metabolic Oii858 GLOB 2.6 g/dL 02/02/2017 Comp Metabolic Jul877 A/G Ratio 1.3 Ratio 02/02/2017 Comp Metabolic Njf001 Osmo 284 mOsmo 02/02/2017 %Hba1C Yau055 % HbA1c 73831- 6 5.0 % 10/29/2016 %Hba1C Tic199 Gluc Ave 97 mg/dL 10/29/2016 Culture Urine [id number] URINE CULTURE SEE NOTES 09/21/2016 Culture Urine [id number] Continued Results 09/21/2016 Urine Culture Ucult Complete [...] 32.4 pg 07/30/2016 Cbc With Differential Ord2 [place]% 7.2 % 07/30/2016 Cbc With Differential Ord2 [...] 2.69 K/ul 07/30/2016 Cbc With Differential Ord2 [place] ABS# 0.5 K/ul 07/30/2016 Cbc With Differential Ord2 Eos ABS# 0.5 K/ul 07/30/2016 Cbc With Differential Ord2 Baso ABS# 0.0 K/ul 07/30/2016 Comp Metabolic Ywz528 NA 141 mEq/L 07/30/2016 Comp Metabolic Gvs948 K 4.3 mEq/L 07/30/2016 Comp Metabolic Upr360 CL 100 mEq/L 07/30/2016 Comp Metabolic Cfr979 CO2 33.0 mEq/L 07/30/2016 Comp Metabolic Ozg435 ANION GAP 12 07/30/2016 Comp Metabolic Dbz570 GLUCOSE 64 mg/dL 07/30/2016 Comp Metabolic Qwi888 Creat 0.5 mg/dL 07/30/2016 Comp Metabolic Ofi625 eGFR 126 ml/min/1.73m2 07/30/2016 Comp Metabolic Fpy183 BUN 25 mg/dL 07/30/2016 Comp Metabolic Asj630 B/C Ratio 48.1 Ratio 07/30/2016 Comp Metabolic Rbn801 CALCIUM 8.9 mg/dL 07/30/2016 Comp Metabolic Gjq688 ALK PHOS 90 U/L 07/30/2016 Comp Metabolic Yso431 AST(SGOT) 22 U/L 07/30/2016 Comp Metabolic Uuc782 ALT(SGPT) 36 U/L 07/30/2016 Comp Metabolic Gdu182 BILI T 0.3 mg/dL 07/30/2016 Comp Metabolic Gha259 ALBUMIN 3.4 g/dL 07/30/2016 Comp Metabolic Zgq220 TPRO 6.0 g/dL 07/30/2016 Comp Metabolic Slf511 GLOB 2.7 g/dL 07/30/2016 Comp Metabolic Rdz858 A/G Ratio 1.3 Ratio 07/30/2016 Comp Metabolic Oad754 Osmo 284 mOsmo 07/30/2016 A1C Frequency Dtc955 A1CF 83761-2 [place] [facility] [place] 05-12-2016 07/30/2016 %Hba1C Pir679 % HbA1c 70769- 6 5.2 % 05/12/2016 %Hba1C Tqc922 Gluc Ave 103 mg/dL 05/12/2016 Culture Urine [id number] URINE CULTURE SEE NOTES 05/11/2016 Urine Culture [...] U-Com Culture to follow 05/06/2016 Culture Urine [id number] URINE CULTURE SEE NOTES 03/17/2016 Culture Urine [id number] Continued Results 03/17/2016 Urine Culture Ucult Complete [...] 32.0 pg 02/11/2016 Cbc With Differential Ord2 [place]% 9.1 % 02/11/2016 Cbc With Differential Ord2 [...] 2.59 K/ul 02/11/2016 Cbc With Differential Ord2 [place] ABS# 0.6 K/ul 02/11/2016 Cbc With Differential Ord2 Eos ABS# 0.3 K/ul 02/11/2016 Cbc With Differential Ord2 Baso ABS# 0.0 K/ul 02/11/2016 Comp Metabolic Gyn118 NA 137 mEq/L 02/11/2016 Comp Metabolic Wnx465 K 4.4 mEq/L 02/11/2016 Comp Metabolic Avr673 CL 100 mEq/L 02/11/2016 Comp Metabolic Bfq696 CO2 25.0 mEq/L 02/11/2016 Comp Metabolic Wuy192 ANION GAP 16 02/11/2016 Comp Metabolic Fup072 GLUCOSE 99 mg/dL 02/11/2016 Comp Metabolic Odn375 Creat 0.6 mg/dL 02/11/2016 Comp Metabolic Vrn175 eGFR 99 ml/min/1.73m2 02/11/2016 Comp Metabolic Vdy168 BUN 27 mg/dL 02/11/2016 Comp Metabolic Gcd088 B/C Ratio 42.2 Ratio 02/11/2016 Comp Metabolic Ssi206 CALCIUM 9.2 mg/dL 02/11/2016 Comp Metabolic Vbn612 ALK PHOS 74 U/L 02/11/2016 Comp Metabolic Mkf258 AST(SGOT) 24 U/L 02/11/2016 Comp Metabolic Ptn894 ALT(SGPT) 26 U/L 02/11/2016 Comp Metabolic Ush202 BILI T 0.5 mg/dL 02/11/2016 Comp Metabolic Rcl740 ALBUMIN 3.5 g/dL 02/11/2016 Comp Metabolic Soe318 TPRO 6.2 g/dL 02/11/2016 Comp Metabolic Htq344 GLOB 2.7 g/dL 02/11/2016 Comp Metabolic Znj412 A/G Ratio 1.3 Ratio 02/11/2016 Comp Metabolic Avu944 Osmo 279 mOsmo 02/11/2016 Review of Systems [...] 1: 128/86 Code: 8480-6 BMI: 31.4 Code: 09560-1 Heart Rate 1: 72 bpm Height: 5'1" Weight: 166 lbs 06/17/2015 Blood Pressure 1: 110/78 Code: 8480-6 BMI: 33.3 Code: 87622-6 Heart Rate 1: 74 bpm Height: 5'1" [...] Present Encounters Encounter Performer Location Codes Date ([id number]) 39559 EST. PATIENT, LEVEL IV Diagnosis: Cough[ICD10: R05] Diagnosis: Pneumonia, unspecified organism[ICD10: J18.9] Diagnosis: Pain in right knee[ICD10: M25.561] Carlyn Everett MD, [facility] CPT- 4: 23122 03/18/2018 ([id number]) 47163 EST. PATIENT, LEVEL IV Diagnosis: Type 2 diabetes mellitus without complications[ICD10: E11.9] Diagnosis: Essential (primary) hypertension[ICD10: I10] Diagnosis: Chronic pain syndrome[ICD10: G89.4] Carlyn Everett MD, [facility] CPT-4: 57592 01/07/2018 ([id number]) 55151 EST. PATIENT, LEVEL IV Diagnosis: Essential (primary) hypertension[ICD10: I10] Diagnosis: Type 2 diabetes mellitus without complications[ICD10: E11.9] Carlyn Everett MD, [facility] CPT-4: 02381 2017 ([id number]) 31405 EST. PATIENT, LEVEL IV Diagnosis: Type 2 diabetes mellitus with hyperglycemia[ICD10: E11.65] Diagnosis: Essential (primary) hypertension[ICD10: I10] Diagnosis: Pain in left shoulder[ICD10: M25.512] Diagnosis: Pain in right shoulder[ICD10: M25.511] Diagnosis: Pain in left knee[ICD10: M25.562] Diagnosis: Pain in right knee[ICD10: M25.561] Vonda Everett MD, [facility] CPT- 4: 65563 09/09/2017 90741 EST. PATIENT, LEVEL IV Diagnosis: Essential (primary) hypertension[ICD10: I10] Diagnosis: Type 2 diabetes mellitus with hyperglycemia[ICD10: E11.65] Diagnosis: Low back pain[ICD10: M54.5] Sunitha Everett MD, [facility] CPT-4: 48707 06/08/2017 ([id number]) 89435 EST. PATIENT, LEVEL IV Diagnosis: Essential (primary) hypertension[ICD10: I10] Diagnosis: Type 2 diabetes mellitus with hyperglycemia[ICD10: E11.65] Diagnosis: Low back pain[ICD10: M54.5] Sunitha Everett MD, [facility] CPT-4: 11286 04/15/2017 ([id number]) 74618 EST. PATIENT, LEVEL IV Diagnosis: Essential (primary) hypertension[ICD10: I10] Diagnosis: Type 2 diabetes mellitus with hyperglycemia[ICD10: E11.65] Diagnosis: Low back pain[ICD10: M54.5] Vonda Everett MD, [facility] CPT-4: 35635 02/16/2017 18247 EST. 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] Diagnosis: Ataxia following cerebral infarction[ICD10: I69.393] Diagnosis: 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] Diagnosis: Dysphagia following cerebral infarction[ICD10: I69.391] 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 A chest xray has been ordered as have antibiotics. The pt is aware of the diagnosis and the need for acute treatment of this illness. Right knee pain -xray knee-rx for voltaren gel 03/18/2018 Appointment: Carlyn Higginbotham WPtel: [phone] [place] (30 min) Complex 03/18/2018 Patient Education: Patient Medication Summary Completed 03/18/2018 Appointment: Carlyn Higginbotham WPtel: [phone] (30 min) Complex 03/17/2018 Appointment: Carlyn Higginbotham WPtel: [phone] [place] (15 min) Moderate 03/10/2018 Appointment: Carlyn Higginbotham WPtel: [address] [place], [place] [phone] [place] (15 min) Moderate 02/08/2018 Visit Plan: DM -decrease levemir to 4 units daily -monitor blood sugars WAJ-frfcxmcrch-sc changes Chronic pain -well controlled with fentanyl patch -no changes at this time 01/07/2018 Appointment: Carlyn Higginbotham WPtel: [address] [place] [phone] (15 min) Moderate 01/07/2018 Patient Education: Patient [...] HS 2017 Appointment: Carlyn Higginbotham WPtel: [phone] [phone] (15 min) Moderate 2017 Patient Education: Patient [...] 175mcg. 09/09/2017 Appointment: Vonda Everett WPtel: [phone] [facility] [place] (15 min) Moderate 09/09/2017 Patient [...] and PRN pain medications - [facility] PRN medication administration record. 06/08/2017 Appointment: [facility] ([facility] min) Complex 06/08/2017 Patient Education: [...] over-medication. 04/15/2017 Appointment: [phone] [facility] (30 min) Complex 04/15/2017 Patient Education: [...] today. 02/16/2017 [facility]ment[phone] (15 min) Moderate 02/16/2017 Patient Education: Patient [...] concerns. 11/09/2016 Appointment: [facility] [phone] [facility] (30 min) Complex 11/09/2016 Patient Education: Patient Medication Summary Completed 11/09/2016 Care Plan: Referral Order SNOMED-CT : [id number] Pending 11/09/2016 Patient Education: Patient Medication Summary [...] Follow up weight in 1 month Neck lcvj-qlirpwejmat-Nlib PT focus neck/upper body Right earache-cerumen removed with water pick today in the office 07/18/2015 Appointment: (30 min) Complex 07/18/2015 Patient Education: Patient Medication Summary Completed 07/18/2015 Patient Education: Obesity Completed 07/18/2015 Patient Education: .Cervicalgia Neck Pain Completed 07/18/2015 [phone] [facility] Completed 06/25/2015 Visit Plan: Hypertension [...] normal liver response to medications. [facility] post stroke - left sided weakness, neck stiffness, upper extremity weakness Diabetes Mellitus - controlled - per family report - check labs this week, get report from and [facility]. I spent over an hour with the patient in direct contact. 06/17/2015 Appointment: [facility] Eve[phone] New Patient 06/17/2015 Patient Education: Patient Medication Summary Completed 06/17/2015 Patient Education: Obesity Completed 06/17/2015 Patient Education: Hypertension Completed 06/17/2015 Care Plan: Referral Order SNOMED-CT : [id number] Ordered 06/17/2015 Referral: Jorge Luis Carroll Referral Initiated Referral: [facility] WPtel: [address] [place], [place] [id number] [place] Referral Appointment Requested Instructions Comment . [...] labs this week, get report from and [facility]. I spent over an hour with the patient in direct contact. . PEG tube - tube has not been replaced in some time, some mild irritation noted around the tube - will refer to surgeon for PEG tube replacement. Pt/family is to notify clinic with any changes, questions, or concerns. Add 1 scoop of whey protein from [facility] to 2 feedings per day [...] Follow up weight in 1 month Neck fqih-elnsygkbuuu-Inft PT focus neck/upper body Right earache-cerumen removed [...] to 4 units daily -monitor blood sugars FGU-xkswibrcnn-tq changes Chronic pain -well controlled with fentanyl [...] and PRN pain medications - will have [facility] over PRN medication administration record. . [...]
--- OUTSIDE RECORDS SUMMARY | 2018-08-09 11:44 | XMS REPORT | CCD ---
Author Author [facility] Organization [facility] Address [address] [place] [address] Phone Care Team Providers Care Vending Route Servicer Name Role Phone PP Unavailable CCM Unavailable Summary Purpose Interface Exchange Insurance Providers Payer name Policy type / Coverage type Covered libertarian ID Effective Begin Date Effective End Date WPS Medicare Part B Medicare Part B [id number] Unknown Unknown [facility] Life Insurance Medicare Part B [id number] Unknown Unknown Family history Father Diagnosis Age At Onset Arthritis Unknown Hypertension Unknown Mother Diagnosis Age At Onset Diabetes mellitus Type 2 Unknown Depression Unknown Arthritis Unknown Stroke Unknown Hypertension Unknown Sister Diagnosis Age At Onset Colon cancer Unknown Social History Social History Element Codes Description Effective Dates Marital status Unknown [place] 01/07/2018 Living arrangements Unknown Skilled Nursing [facility] 04/15/2017 Number of children Unknown 3 06/17/2015 Employment Unknown Retired 06/17/[address]: 9624223 Quit over 10 years ago 15+ 06/17/[address]: 131968289 Never drinks alcohol 06/17/2015 Allergies, Adverse Reactions, [...] Start Date Stop Date Status Fill Instructions lorazepam 0.5 mg tablet RxNorm: 895179 1 Tablet(s) PO BID and 1 tab q 6 hours prn 04/07/2018 No Stop Date Active hyoscyamine 0.125 mg disintegrating tablet RxNorm: 3194515 Tablet(s) 1-2 Tablet(s) PO Q8 as needed 03/31/2018 No Stop Date Active Duragesic 75 mcg/hr transdermal patch RxNorm: 368848 1 Patch TD Q72H 03/31/2018 04/29/2018 Active fentanyl 100 mcg/hr transdermal patch RxNorm: 433893 1 Patch TD Q72H 03/31/2018 04/29/2018 Active carvedilol 3.125 mg tablet RxNorm: 350496 Tablet(s) GIVE 1 TABLET VIA PEG TUBE 2 TIMES A DAY 03/30/2018 06/27/2018 Active Generic For:COREG 3.125MG 10/22/2017 9:23:30 AM Voltaren 1 % topical gel RxNorm: 983389 APPLY 4 GRAMS TO RIGHT KNEE FOUR TIMES DAILY 03/30/2018 04/22/2018 Active Generic For:VOLTAREN GEL 1% 03/30/2018 11:14:57 AM hydrocodone 10 mg-acetaminophen 325 mg tablet RxNorm: 341268 2 Tablet(s) PO scheduled TID 03/23/2018 04/21/2018 Active Not to exceed 3gm/24hr acetaminophen Zithromax Z-Eliu 250 mg tablet RxNorm: 957085 Tablet(s) PO 03/18/2018 No Stop Date Active albuterol sulfate concentrate 5 mg/mL(0.5 %) solution for nebulization RxNorm: 182498 1 Vial Milliliter(s) INH TID PRN as needed congestion 03/18/2018 No Stop Date Active cefdinir 300 mg capsule RxNorm: 143727 1 Capsule(s) PO BID 03/18/2018 03/24/2018 Inactive Voltaren 1 % topical gel RxNorm: 547562 4 Gram(s) TOP QID 03/18/2018 03/29/2018 Inactive hydrochlorothiazide 25 mg tablet RxNorm: 501997 GIVE 1 TABLET VIA PEG TUBE ONCE DAILY 03/11/2018 09/06/2018 Active Generic For:HYDRODIURIL 25 MG TABLET 03/11/2018 9:15:32 AM fentanyl 100 mcg/hr transdermal patch RxNorm: 838755 1 Patch TD Q72H 03/02/2018 03/30/2018 Inactive Duragesic 75 mcg/hr transdermal patch RxNorm: 822880 1 Patch TD Q72H 03/02/2018 03/30/2018 Inactive hydrocodone 10 mg-acetaminophen 325 mg tablet RxNorm: 342745 2 Tablet(s) PO scheduled TID 02/18/2018 03/22/2018 Inactive Not to exceed 3gm/24hr acetaminophen hyoscyamine 0.125 mg disintegrating tablet RxNorm: 0785398 Tablet(s) 1-2 Tablet(s) PO Q8 as needed 02/08/2018 03/30/2018 Inactive fentanyl 100 mcg/hr transdermal patch RxNorm: 547337 1 Patch TD Q72H 02/04/2018 03/01/2018 Inactive hydrocodone 10 mg-acetaminophen 325 mg tablet RxNorm: 797277 2 Tablet(s) PO scheduled TID 02/04/2018 02/17/2018 Inactive Not to exceed 3gm/24hr acetaminophen Duragesic 75 mcg/hr transdermal patch RxNorm: 999682 1 Patch TD Q72H 02/04/2018 03/01/2018 Inactive Levemir FlexTouch U-100 Insulin 100 unit/mL (3 mL) subcutaneous pen RxNorm: 211901 4 Unit(s) SQ QHS 01/07/2018 No Stop Date Active Duragesic 75 mcg/hr transdermal patch RxNorm: 725128 1 Patch TD Q72H 01/07/2018 02/03/2018 Inactive fentanyl 100 mcg/hr transdermal patch RxNorm: 741558 1 Patch TD Q72H 01/07/2018 02/03/2018 Inactive hydrocodone 10 mg-acetaminophen 325 mg tablet RxNorm: 463038 2 Tablet(s) PO scheduled TID 01/05/2018 02/03/2018 Inactive Not to exceed 3gm/24hr acetaminophen hydrocodone 10 mg-acetaminophen 325 mg tablet RxNorm: 460605 2 Tablet(s) PO scheduled TID and 1 tab q 4 as needed 01/04/2018 01/04/2018 Inactive Not to exceed 3gm/24hr acetaminophen cyanocobalamin (vit B-12) 1,000 mcg tablet RxNorm: 935921 1 Tablet(s) PO daily 12/28/2017 11/22/2018 Active baclofen 10 mg tablet RxNorm: 120786 Tablet(s) TAKE 1 TABLET THREE TIMES DAILY VIA STOMACH TUBE 12/27/2017 05/25/2018 Active 10/07/2017 5:36:15 PM 10/07/2017 5:36:13 PM N O T I C E Last quantity doesn't match original quantity Duragesic 75 mcg/hr transdermal patch RxNorm: 463489 1 Patch TD Q72H 12/22/2017 01/06/2018 Inactive fentanyl 100 mcg/hr transdermal patch RxNorm: 348904 1 Patch TD Q72H 12/22/2017 01/06/2018 Inactive hydrocodone 10 mg-acetaminophen 325 mg tablet RxNorm: 380815 2 Tablet(s) PO scheduled TID and 1 tab q 4 as needed 12/20/2017 01/03/2018 Inactive Not to exceed 3gm/24hr acetaminophen hyoscyamine 0.125 mg disintegrating tablet RxNorm: 4372309 1-2 Tablet(s) PO Q8 as needed 12/14/2017 02/07/2018 Inactive Duragesic 75 mcg/hr transdermal patch RxNorm: 575288 1 Patch TD Q72H 12/06/2017 12/21/2017 Inactive fentanyl 100 mcg/hr transdermal patch RxNorm: 872047 1 Patch TD Q72H 12/06/2017 12/21/2017 Inactive hydrocodone 10 mg-acetaminophen 325 mg tablet RxNorm: 028446 2 Tablet(s) PO scheduled TID and 1 tab q 4 as needed 11/29/2017 12/19/2017 Inactive Not to exceed 3gm/24hr acetaminophen Duragesic 75 mcg/hr transdermal patch RxNorm: 111548 1 Patch TD Q72H 11/11/2017 12/05/2017 Inactive hydrocodone 10 mg-acetaminophen 325 mg tablet RxNorm: 680372 2 Tablet(s) PO scheduled TID and 1 tab q 4 as needed 11/09/2017 11/28/2017 Inactive Not to exceed 3gm/24hr acetaminophen Levemir FlexTouch U-100 Insulin 100 unit/mL (3 mL) subcutaneous pen RxNorm: 302306 8 Unit(s) SQ QHS 11/09/2017 01/06/2018 Inactive fentanyl 100 mcg/hr transdermal patch RxNorm: 723518 1 Patch TD Q72H 2017 12/05/2017 Inactive hyoscyamine 0.125 mg disintegrating tablet RxNorm: 5133391 1-2 Tablet(s) PO Q8 as needed 11/03/2017 12/13/2017 Inactive carvedilol 3.125 mg tablet RxNorm: 846728 GIVE 1 TABLET VIA PEG TUBE 2 TIMES A DAY 10/22/2017 01/19/2018 Inactive Generic For:COREG 3.125MG 10/22/2017 9:23:30 AM hydrocodone 10 mg-acetaminophen 325 mg tablet RxNorm: 825533 2 Tablet(s) PO scheduled TID and 1 tab q 4 as needed 10/22/2017 2017 Inactive Not to exceed 3gm/24hr acetaminophen fentanyl 100 mcg/hr transdermal patch RxNorm: 789573 1 Patch TD Q72H 10/20/2017 11/07/2017 Inactive Duragesic 75 mcg/hr transdermal patch RxNorm: 205997 1 Patch TD Q72H 10/20/2017 11/10/2017 Inactive lorazepam 0.5 mg tablet RxNorm: 190667 1 Tablet(s) PO BID and 1 tab q 6 hours prn 10/18/2017 No Stop Date Active baclofen 10 mg tablet RxNorm: 739132 TAKE 1 TABLET THREE TIMES DAILY VIA STOMACH TUBE 10/07/2017 12/26/2017 Inactive 10/07/2017 5:36:15 PM 10/07/2017 5:36:13 PM N O T I C E Last quantity doesn't match original quantity cranberry extract 500 mg tablet RxNorm: 5094565 1 Tablet(s) PO QAM 10/04/2017 01/31/2018 Inactive Cipro 500 mg tablet RxNorm: 596923 1 Tablet(s) PO BID 10/04/2017 10/03/2017 Inactive dc keflex hydrocodone 10 mg-acetaminophen 325 mg tablet RxNorm: 646244 2 Tablet(s) PO scheduled TID as needed 10/04/2017 10/21/2017 Inactive Not to exceed 3gm/24hr acetaminophen cranberry extract 500 mg tablet RxNorm: 8191858 1 Tablet(s) PO QAM 10/04/2017 10/03/2017 Inactive Cipro 500 mg tablet RxNorm: 211079 1 Tablet(s) PO BID 10/04/2017 10/10/2017 Inactive dc keflex Duragesic 75 mcg/hr transdermal patch RxNorm: 414205 1 Patch TD Q72H 09/20/2017 10/19/2017 Inactive fentanyl 100 mcg/hr transdermal patch RxNorm: 691005 1 Patch TD Q72H 09/20/2017 10/19/2017 Inactive hyoscyamine 0.125 mg disintegrating tablet RxNorm: 3496198 1 Tablet(s) PO TID and 1 Tablet Q4H prn increased secretions 09/15/2017 11/02/2017 Inactive hydrocodone 10 mg-acetaminophen 325 mg tablet RxNorm: 362026 2 Tablet(s) PO scheduled TID and 1-2 Tabs Q4H PRN pain 09/15/2017 10/03/2017 Inactive Not to exceed 3gm/24hr acetaminophen lorazepam 0.5 mg tablet RxNorm: 734936 1 Tablet(s) PO BID 09/15/2017 10/17/2017 Inactive Lexapro 10 mg tablet RxNorm: 470221 1 Tablet(s) PO daily 09/10/2017 09/14/2017 Inactive lisinopril 10 mg tablet RxNorm: 425695 1 Tablet(s) PO daily 09/09/2017 06/05/2018 Active Levemir FlexTouch U-100 Insulin 100 unit/mL (3 mL) subcutaneous pen RxNorm: 187657 10 Unit(s) daily 09/09/2017 09/15/2017 Inactive Duragesic 75 mcg/hr transdermal patch RxNorm: 609859 1 Patch TD Q72H 09/09/2017 09/19/2017 Inactive nystatin 100,000 unit/gram topical cream RxNorm: 220515 1 Gram(s) TOP TID until healed to gaulding 09/06/2017 01/03/2018 Inactive nystatin 100,000 unit/gram topical cream RxNorm: 834896 1 Gram(s) TOP TID until healed to gaulding 09/06/2017 09/05/2017 Inactive hydrocodone 10 mg-acetaminophen 325 mg tablet RxNorm: 987775 2 Tablet(s) PO scheduled TID as needed 08/31/2017 09/14/2017 Inactive Not to exceed 3gm/24hr acetaminophen fentanyl 100 mcg/hr transdermal patch RxNorm: 925227 1 Patch TD Q72H 08/24/2017 09/19/2017 Inactive fentanyl 50 mcg/hr transdermal patch RxNorm: 298285 1 Patch TD Q72H 08/24/2017 09/08/2017 Inactive fentanyl 25 mcg/hr transdermal patch RxNorm: 098444 1 Patch TD Q72H 08/24/2017 08/24/2017 Inactive hyoscyamine 0.125 mg disintegrating tablet RxNorm: 7824846 Tablet(s) 1-2 Tablet(s) PO Q8 as needed 08/23/2017 09/14/2017 Inactive hydrocodone 10 mg-acetaminophen 325 mg tablet RxNorm: 739635 1 Tablet(s) PO scheduled TID et Q6 hours as needed 08/18/2017 08/30/2017 Inactive Not to exceed 3gm/24hr acetaminophen hydrochlorothiazide 25 mg tablet RxNorm: 315212 GIVE 1 TABLET VIA PEG TUBE ONCE DAILY 08/17/2017 02/12/2018 Inactive Generic For:HYDRODIURIL 25 MG TABLET 08/17/2017 9:01:54 AM08/11/2017 10:12:00 AM lorazepam 0.5 mg tablet RxNorm: 533958 1/2 Tablet(s) PO BID 08/03/2017 09/14/2017 Inactive fentanyl 100 mcg/hr transdermal patch RxNorm: 629206 1 Patch TD Q72H 07/26/2017 08/23/2017 Inactive fentanyl 25 mcg/hr transdermal patch RxNorm: 469150 1 Patch TD Q72H 07/26/2017 08/23/2017 Inactive hydrocodone 10 mg-acetaminophen 325 mg tablet RxNorm: 062783 1 Tablet(s) PO scheduled TID et Q6 hours as needed 07/16/2017 08/14/2017 Inactive Not to exceed 3gm/24hr acetaminophen hyoscyamine 0.125 mg disintegrating tablet RxNorm: 5621124 Tablet(s) 1-2 Tablet(s) PO Q8 as needed 07/13/2017 08/01/2017 Inactive baclofen 10 mg tablet RxNorm: 657433 TAKE 1 TABLET THREE TIMES DAILY VIA STOMACH TUBE 07/12/2017 10/06/2017 Inactive 07/12/2017 9:04:08 AM N O T I C E Last quantity doesn't match original quantity lorazepam 0.5 mg tablet RxNorm: 661957 1/2 Tablet(s) PO BID 07/02/2017 08/02/2017 Inactive fentanyl 100 mcg/hr transdermal patch RxNorm: 764136 1 Patch TD Q72H 06/28/2017 07/25/2017 Inactive fentanyl 25 mcg/hr transdermal patch RxNorm: 854264 1 Patch TD Q72H 06/28/2017 07/25/2017 Inactive hyoscyamine 0.125 mg disintegrating tablet RxNorm: 9621587 Tablet(s) 1-2 Tablet(s) PO Q8 as needed 06/03/2017 06/22/2017 Inactive fentanyl 25 mcg/hr transdermal patch RxNorm: 345930 1 Patch TD Q72H 05/26/2017 06/24/2017 Inactive Levemir FlexTouch U-100 Insulin 100 unit/mL (3 mL) subcutaneous pen RxNorm: 798922 20 Unit(s) SQ BID 05/26/2017 09/08/2017 Inactive fentanyl 100 mcg/hr transdermal patch RxNorm: 638920 1 Patch TD Q72H 05/26/2017 06/24/2017 Inactive hydrocodone 10 mg-acetaminophen 325 mg tablet RxNorm: 011052 1 Tablet(s) PO scheduled BID et Q6 hours as needed 05/12/2017 05/11/2017 Inactive hydrocodone 10 mg-acetaminophen 325 mg tablet RxNorm: 592462 1 Tablet(s) PO scheduled TID et Q6 hours as needed 05/12/2017 06/10/2017 Inactive Not to exceed 3gm/24hr acetaminophen docusate sodium 100 mg tablet RxNorm: 5769620 1 Tablet(s) PO BID as needed if no bowel movement 05/10/2017 05/09/2017 Inactive lisinopril 20 mg tablet RxNorm: 997500 1 Tablet(s) PO daily 05/10/2017 09/08/2017 Inactive docusate sodium 100 mg tablet RxNorm: 0768353 1 Tablet(s) PO BID as needed if no bowel movement 05/10/2017 09/14/2017 Inactive fentanyl 25 mcg/hr transdermal patch RxNorm: 843906 1 Patch TD Q72H 05/03/2017 05/25/2017 Inactive lorazepam 0.5 mg tablet RxNorm: 245775 1/2 Tablet(s) PO BID 05/03/2017 07/01/2017 Inactive fentanyl 100 mcg/hr transdermal patch RxNorm: 250506 1 Patch TD Q72H 04/27/2017 05/25/2017 Inactive carvedilol 3.125 mg tablet RxNorm: 717156 Tablet(s) GIVE 1 TABLET VIA PEG TUBE DAILY 04/15/2017 10/21/2017 Inactive Levemir FlexTouch 100 unit/mL (3 mL) subcutaneous insulin pen RxNorm: 413143 10 Unit(s) SQ BID 04/15/2017 2017 Inactive hyoscyamine 0.125 mg disintegrating tablet RxNorm: 5805778 1-2 Tablet(s) PO Q8 as needed 04/14/2017 05/03/2017 Inactive hydrocodone 10 mg-acetaminophen 325 mg tablet RxNorm: 197836 1 Tablet(s) PO scheduled BID et Q6 hours as needed 04/13/2017 05/02/2017 Inactive baclofen 10 mg tablet RxNorm: 259570 TAKE 1 TABLET THREE TIMES DAILY VIA STOMACH TUBE 04/08/2017 05/22/2017 Inactive 04/08/2017 9:32:07 AM fentanyl 25 mcg/hr transdermal patch RxNorm: 089167 1 Patch TD Q72H 04/05/2017 05/02/2017 Inactive lidocaine 10 mg/mL (1 %) injection solution RxNorm: 5735869 1 Milliliter(s) Inj daily Mix with rocephin 03/31/2017 03/30/2017 Inactive Pt resides at [facility] lidocaine 10 mg/mL (1 %) injection solution RxNorm: 5044413 1 Milliliter(s) Inj daily Mix with rocephin 03/31/2017 04/06/2017 Inactive Pt resides at [facility] fentanyl 100 mcg/hr transdermal patch RxNorm: 612137 1 Patch TD Q72H 03/29/2017 04/26/2017 Inactive nystatin 100,000 unit/gram topical powder RxNorm: 232465 APPLY UNDER BREASTS TWICE DAILY FOR YEAST SKIN INFECTION AND APPLY TO UNDERARM AND ABDOMINAL FOLDS AND PERIAREA TWICE DAILY 03/29/2017 03/28/2017 Inactive 03/27/2017 9:12:50 AM nystatin 100,000 unit/gram topical powder RxNorm: 009712 APPLY UNDER BREASTS TWICE DAILY FOR YEAST SKIN INFECTION AND APPLY TO UNDERARM AND ABDOMINAL FOLDS AND PERIAREA TWICE DAILY 03/29/2017 09/14/2017 Inactive 03/29/2017 9:42:55 AM03/27/2017 9:12:50 AM hyoscyamine 0.125 mg disintegrating tablet RxNorm: 4919799 1-2 Tablet(s) PO Q8 as needed 03/08/2017 03/27/2017 Inactive fentanyl 25 mcg/hr transdermal patch RxNorm: 397005 1 Patch TD Q72H 03/02/2017 03/31/2017 Inactive hydrocodone 10 mg-acetaminophen 325 mg tablet RxNorm: 279959 1 Tablet(s) PO scheduled BID et Q6 hours as needed 02/17/2017 03/18/2017 Inactive fentanyl 100 mcg/hr transdermal patch RxNorm: 274802 1 Patch TD Q72H 02/17/2017 03/18/2017 Inactive Lexapro 10 mg tablet RxNorm: 149400 1 Tablet(s) PO daily 02/05/2017 04/14/2017 Inactive Lexapro 10 mg tablet RxNorm: 801368 1 Tablet(s) PO daily 02/05/2017 02/04/2017 Inactive fentanyl 25 mcg/hr transdermal patch RxNorm: 443723 1 Patch TD Q72H 02/04/2017 03/01/2017 Inactive cyanocobalamin (vit B-12) 1,000 mcg tablet RxNorm: 158246 1 Tablet(s) PO daily 01/18/2017 12/13/2017 Inactive hyoscyamine 0.125 mg disintegrating tablet RxNorm: 6556262 Tablet(s) 1-2 Tablet(s) PO Q8 as needed 01/18/2017 02/06/2017 Inactive baclofen 10 mg tablet RxNorm: 255657 TAKE 1 TABLET THREE TIMES DAILY VIA STOMACH TUBE 01/04/2017 02/17/2017 Inactive 01/04/2017 9:25:18 AM fentanyl 100 mcg/hr transdermal patch RxNorm: 591130 1 Patch TD Q72H 12/25/2016 01/23/2017 Inactive hydrochlorothiazide 25 mg tablet RxNorm: 604560 Tablet(s) GIVE 1 TABLET VIA PEG TUBE ONCE A DAY 12/14/2016 07/11/2017 Inactive fentanyl 100 mcg/hr transdermal patch RxNorm: 219036 1 Patch TD Q72H 11/25/2016 12/24/2016 Inactive hyoscyamine 0.125 mg disintegrating tablet RxNorm: 8848152 Tablet(s) 1-2 Tablet(s) PO Q8 as needed 11/25/2016 12/14/2016 Inactive nystatin 100,000 unit/gram topical powder RxNorm: 778034 APPLY UNDER BREASTS TWICE DAILY FOR YEAST SKIN INFECTION AND APPLY TO UNDERARM AND ABDOMINAL FOLDS AND PERIAREA TWICE DAILY 11/24/2016 01/22/2017 Inactive 11/24/2016 9:34:02 AM hydrocodone 10 mg-acetaminophen 325 mg tablet RxNorm: 212228 1 Tablet(s) PO scheduled BID et Q6 hours as needed 11/02/2016 12/01/2016 Inactive cyanocobalamin (vit B-12) 1,000 mcg tablet RxNorm: 882781 1 Tablet(s) PO daily 11/02/2016 01/17/2017 Inactive hyoscyamine 0.125 mg disintegrating tablet RxNorm: 1421674 1-2 Tablet(s) PO Q8 as needed 10/19/2016 11/24/2016 Inactive fentanyl 100 mcg/hr transdermal patch RxNorm: 801675 1 Patch TD Q72H 10/13/2016 11/11/2016 Inactive hydrocodone 10 mg-acetaminophen 325 mg tablet RxNorm: 934430 1 Tablet(s) PO scheduled BID et Q6 hours as needed 10/05/2016 11/01/2016 Inactive baclofen 10 mg tablet RxNorm: 948568 TAKE 1 TABLET THREE TIMES DAILY VIA STOMACH TUBE 10/01/2016 11/14/2016 Inactive 10/01/2016 9:24:37 AM carvedilol 3.125 mg tablet RxNorm: 319729 GIVE 1 TABLET VIA PEG TUBE 2 TIMES A DAY 09/30/2016 12/28/2016 Inactive Generic For:COREG 3.125MG 09/30/2016 1:12:28 PM09/25/2016 9:06:11 AM Probiotic Blend 2 million cell-50 mg capsule RxNorm: 1 Capsule(s) PO BID 09/17/2016 09/23/2016 Inactive Keflex 500 mg capsule RxNorm: 872323 1 Capsule(s) PO TID 09/17/2016 09/23/2016 Inactive hyoscyamine 0.125 mg/5 mL oral elixir RxNorm: 3653092 5 Milliliter(s) PO TID 09/08/2016 09/17/2016 Inactive hyoscyamine 0.125 mg/5 mL oral elixir RxNorm: 0905911 5 Milliliter(s) PO TID 09/08/2016 09/07/2016 Inactive hyoscyamine 0.125 mg disintegrating tablet RxNorm: 6140436 1-2 Tablet(s) PO Q8 as needed 09/07/2016 10/18/2016 Inactive fentanyl 100 mcg/hr transdermal patch RxNorm: 439269 1 Patch TD Q72H 09/01/2016 09/30/2016 Inactive ranitidine 150 mg tablet RxNorm: 843153 1 Tablet(s) PO BID 08/25/2016 No Stop Date Active hydrocodone 10 mg-acetaminophen 325 mg tablet RxNorm: 451567 1 Tablet(s) PO scheduled BID et Q6 hours as needed 08/24/2016 09/22/2016 Inactive cyanocobalamin (vit B-12) 1,000 mcg tablet RxNorm: 723528 1 Tablet(s) PO daily 08/12/2016 11/01/2016 Inactive cyanocobalamin (vit B-12) 1,000 mcg tablet RxNorm: 953889 1 Tablet(s) PO daily 08/12/2016 08/11/2016 Inactive hydrocodone 10 mg-acetaminophen 325 mg tablet RxNorm: 919383 1-2 Tablet(s) PO Q6 as needed 08/03/2016 08/17/2016 Inactive fentanyl 100 mcg/hr transdermal patch RxNorm: 453052 1 Patch TD Q72H 08/03/2016 08/31/2016 Inactive nystatin 100,000 unit/gram topical powder RxNorm: 332375 APPLY UNDER BREASTS TWICE DAILY FOR YEAST SKIN INFECTION AND APPLY TO UNDERARM AND ABDOMINAL FOLDS AND PERIAREA TWICE DAILY 07/17/2016 09/14/2016 Inactive 07/17/2016 3:56:54 PM fentanyl 100 mcg/hr transdermal patch RxNorm: 794419 1 Patch TD Q72H 07/15/2016 08/02/2016 Inactive lisinopril 20 mg tablet RxNorm: 554620 1 Tablet(s) PO daily 07/02/2016 03/28/2017 Inactive hydrocodone 10 mg-acetaminophen 325 mg tablet RxNorm: 809397 1-2 Tablet(s) PO Q6 as needed 07/01/2016 07/15/2016 Inactive Xarelto 20 mg tablet RxNorm: 1703121 Tablet(s) TAKE 1 TABLET VIA PEG TUBE AT BEDTIME 06/19/2016 04/14/2017 Inactive fentanyl 100 mcg/hr transdermal patch RxNorm: 320552 1 Patch TD Q72H 06/17/2016 07/14/2016 Inactive nystatin 100,000 unit/gram topical powder RxNorm: 222215 APPLY TO UNDER BREASTS TWICE DAILY FOR YEAST SKIN INFECTION AND APPLY TO UNDERARM AND ABDOMINAL FOLDS AND PERIAREA TWICE DAILY 06/15/2016 07/16/2016 Inactive Generic For:MYCOSTATIN 100,000 UNITS/GM PW 06/15/2016 12:28:26 PM fentanyl 100 mcg/hr transdermal patch RxNorm: 186876 1 Patch TD Q72H 06/05/2016 06/16/2016 Inactive hydrocodone 10 mg-acetaminophen 325 mg tablet RxNorm: 054370 1-2 Tablet(s) PO Q6 as needed 06/02/2016 06/16/2016 Inactive Probiotic Blend 2 million cell-50 mg capsule RxNorm: 1 Capsule(s) PO BID 05/13/2016 05/19/2016 Inactive nitrofurantoin 100 mg capsule RxNorm: 309324 1 Capsule(s) PO BID 05/13/2016 05/19/2016 Inactive nitrofurantoin 100 mg capsule RxNorm: 900310 1 Capsule(s) PO BID 05/13/2016 05/12/2016 Inactive fentanyl 75 mcg/hr transdermal patch RxNorm: 573736 1 Patch TD Q72H 05/13/2016 06/04/2016 Inactive Keflex 500 mg capsule RxNorm: 152978 1 Capsule(s) PO TID 05/07/2016 05/13/2016 Inactive Patient at [facility] Keflex 500 mg capsule RxNorm: 377345 1 Capsule(s) PO TID 05/07/2016 05/06/2016 Inactive hydrocodone 10 mg-acetaminophen 325 mg tablet RxNorm: 914370 1-2 Tablet(s) PO Q6 as needed 05/04/2016 06/01/2016 Inactive hydrochlorothiazide 25 mg tablet RxNorm: 453048 Tablet(s) GIVE 1 TABLET VIA PEG TUBE ONCE A DAY 04/29/2016 11/24/2016 Inactive hydrochlorothiazide 25 mg tablet RxNorm: 245010 GIVE 1 TABLET VIA PEG TUBE ONCE A DAY 04/22/2016 04/28/2016 Inactive Generic For:HYDRODIURIL 25 MG TABLET refill request fentanyl 75 mcg/hr transdermal patch RxNorm: 140330 1 Patch TD Q72H 04/17/2016 05/12/2016 Inactive Xarelto 20 mg tablet RxNorm: 9146163 TAKE 1 TABLET VIA PEG TUBE AT BEDTIME 04/16/2016 06/14/2016 Inactive 04/16/2016 9:08:52 AM citalopram 40 mg tablet RxNorm: 392822 1 Tablet(s) PO daily 04/02/2016 02/25/2017 Inactive citalopram 40 mg tablet RxNorm: 223862 1 Tablet(s) PO daily 03/27/2016 04/01/2016 Inactive hydrocodone 10 mg-acetaminophen 325 mg tablet RxNorm: 908462 1-2 Tablet(s) PO Q6 as needed 03/27/2016 04/25/2016 Inactive fentanyl 75 mcg/hr transdermal patch RxNorm: 973728 1 Patch TD Q72H 03/18/2016 04/16/2016 Inactive hydrocodone 10 mg-acetaminophen 325 mg tablet RxNorm: 252687 1-2 Tablet(s) PO Q6 as needed 03/11/2016 03/26/2016 Inactive citalopram 40 mg tablet RxNorm: 006324 1 Tablet(s) PO daily 03/04/2016 03/26/2016 Inactive Levemir FlexTouch U-100 Insulin 100 unit/mL (3 mL) subcutaneous pen RxNorm: 683799 20 Unit(s) SQ BID 03/02/2016 09/27/2016 Inactive lisinopril 20 mg tablet RxNorm: 602007 1 Tablet(s) PO daily 02/25/2016 07/01/2016 Inactive Ativan 0.5 mg tablet RxNorm: 824381 1 Tablet(s) PO Q4H as needed 02/18/2016 04/14/2017 Inactive Xarelto 20 mg tablet RxNorm: 9025845 TAKE 1 TABLET VIA PEG TUBE AT BEDTIME 02/12/2016 04/11/2016 Inactive 02/12/2016 9:08:22 AM hydrocodone 10 mg-acetaminophen 325 mg tablet RxNorm: 407862 1-2 Tablet(s) PO Q6 as needed 02/12/2016 03/10/2016 Inactive fentanyl 75 mcg/hr transdermal patch RxNorm: 537753 1 Patch TD Q72H 02/11/2016 03/11/2016 Inactive citalopram 20 mg tablet RxNorm: 457904 1 Tablet(s) PO daily 01/28/2016 03/03/2016 Inactive fentanyl 75 mcg/hr transdermal patch RxNorm: 939612 1 TD Q72H 01/17/2016 02/10/2016 Inactive hydrocodone 10 mg-acetaminophen 325 mg tablet RxNorm: 712866 1-2 Tablet(s) PO Q6 as needed 01/07/2016 02/05/2016 Inactive fentanyl 50 mcg/hr transdermal patch RxNorm: 732702 1 TD Q72H 01/01/2016 01/16/2016 Inactive fentanyl 50 mcg/hr transdermal patch RxNorm: 521993 1 TD q 3 days 12/26/2015 12/31/2015 Inactive Xarelto 20 mg tablet RxNorm: 1142061 TAKE 1 TABLET VIA PEG TUBE AT BEDTIME 12/17/2015 02/11/2016 Inactive 12/16/2015 3:27:57 PM12/14/2015 9:45:17 AM hydrocodone 10 mg-acetaminophen 325 mg tablet RxNorm: 524959 1-2 Tablet(s) PO Q6 as needed 12/06/2015 01/04/2016 Inactive fentanyl 50 mcg/hr transdermal patch RxNorm: 131708 1 TD q 3 days 12/06/2015 12/25/2015 Inactive fentanyl 25 mcg/hr transdermal patch RxNorm: 487785 1 TD q 3 days 11/18/2015 12/05/2015 Inactive Zithromax Z-Eliu 250 mg tablet RxNorm: 125648 1 Tablet(s) PO UD 10/09/2015 02/26/2016 Inactive z pack as directed- please write out instructions- pt at [facility] nystatin 100,000 unit/gram topical powder RxNorm: 140046 APPLY TO UNDER BREASTS TWICE DAILY FOR YEAST SKIN INFECTION AND APPLY TO UNDERARM AND ABDOMINAL FOLDS AND PERIAREA TWICE DAILY 10/07/2015 12/05/2015 Inactive Generic For:MYCOSTATIN 100,000 UNITS/GM PW 10/05/2015 12:07:35 PM fentanyl 25 mcg/hr transdermal patch RxNorm: 680000 1 TD q 3 days 10/03/2015 11/01/2015 Inactive fentanyl 25 mcg/hr transdermal patch RxNorm: 213109 1 TD q 3 days 09/27/2015 10/02/2015 Inactive fentanyl 25 mcg/hr transdermal patch RxNorm: 165854 1 TD q 3 days 09/17/2015 09/26/2015 Inactive fentanyl 25 mcg/hr transdermal patch RxNorm: 394242 1 TD q 3 days 08/30/2015 09/16/2015 Inactive hydrocodone 5 mg-acetaminophen 325 mg tablet RxNorm: 656738 1 Tablet(s) PO Q6 as needed 08/30/2015 09/28/2015 Inactive Diflucan 100 mg tablet RxNorm: 380908 1 Tablet(s) Miscellaneous per peg daily 07/29/2015 08/04/2015 Inactive fentanyl 25 mcg/hr transdermal patch RxNorm: 307610 1 TD q 3 days 07/18/2015 08/29/2015 Inactive hydrocodone 5 mg-acetaminophen 325 mg tablet RxNorm: 329961 1 Tablet(s) PO Q6 as needed 07/18/2015 08/29/2015 Inactive Diflucan 100 mg tablet RxNorm: 794431 1 Tablet(s) Miscellaneous per peg daily 06/17/2015 06/23/2015 Inactive Senna-S 8.6 mg-50 mg tablet RxNorm: 310067 1 Tablet(s) PO daily as needed constipation No Start Date Active Dulcolax (bisacodyl) 10 mg rectal suppository RxNorm: 212793 1 Suppository RTL daily as needed constipation No Start Date Active polyethylene glycol 3350 17 gram/dose oral powder RxNorm: 264005 17 Gram(s) PO daily as needed constipation No Start Date Active baclofen 10 mg tablet RxNorm: 327061 1 Tablet(s) PO TID No Start Date 09/30/2016 Inactive Ativan 0.5 mg tablet RxNorm: 782543 1 Tablet(s) PO Q4H as needed No Start Date 02/17/2016 Inactive ranitidine 150 mg tablet RxNorm: 565057 1 Tablet(s) PO daily No Start Date 08/24/2016 Inactive carvedilol 3.125 mg tablet RxNorm: 093843 1 Tablet(s) PO daily No Start Date 09/29/2016 Inactive citalopram 40 mg tablet RxNorm: 713817 1 Tablet(s) PO daily No Start Date 01/27/2016 Inactive Probiotic Blend oral RxNorm: oral No Start Date 05/12/2016 Inactive hydrochlorothiazide 25 mg tablet RxNorm: 749074 1 Tablet(s) PO daily No Start Date 04/21/2016 Inactive albuterol sulfate concentrate 5 mg/mL(0.5 %) solution for nebulization RxNorm: 570181 1 Vial INH daily as needed congestion No Start Date 03/17/2018 Inactive Levemir FlexTouch 100 unit/mL (3 mL) subcutaneous insulin pen RxNorm: 296658 10 Unit(s) SQ BID No Start Date 03/01/2016 Inactive Zithromax Z-Eliu 250 mg tablet RxNorm: 348195 1 Tablet(s) PO UD No Start Date 10/08/2015 Inactive z pack as directed- please write out instructions- pt at [facility] nystatin 100,000 unit/gram topical powder RxNorm: 086690 Gram(s) TOP BID as needed No Start Date 10/06/2015 Inactive pravastatin 40 mg tablet RxNorm: 691859 Tablet(s) PO daily No Start Date 04/14/2017 Inactive lorazepam 0.5 mg tablet RxNorm: 615027 1/2 Tablet(s) PO BID No Start Date 05/02/2017 Inactive Xarelto 20 mg tablet RxNorm: 2196076 1 Tablet(s) PO daily No Start Date 12/16/2015 Inactive fentanyl 25 mcg/hr transdermal patch RxNorm: 748728 1 TD q 3 days No Start Date 07/17/2015 Inactive lisinopril 20 mg tablet RxNorm: 918683 1 Tablet(s) PO daily No Start Date 02/24/2016 Inactive hydrocodone 5 mg-acetaminophen 325 mg tablet RxNorm: 667815 1 Tablet(s) PO Q6 as needed No Start Date 07/17/2015 Inactive citalopram 40 mg tablet RxNorm: 586339 1 Tablet(s) PO daily No Start Date 03/03/2016 Inactive hyoscyamine 0.125 mg disintegrating tablet RxNorm: 9909412 1-2 Tablet(s) PO Q8 as needed No [...] 30.7 pg 02/14/2018 Cbc With Differential Ord2 Blair% 7.4 % 02/14/2018 Cbc With Differential Ord2 [...] 2.14 K/ul 02/14/2018 Cbc With Differential Ord2 Blair ABS# 0.5 K/ul 02/14/2018 Cbc With Differential Ord2 Eos ABS# 0.3 K/ul 02/14/2018 Cbc With Differential Ord2 Baso ABS# 0.0 K/ul 02/14/2018 Comp Metabolic Sas546 NA 142 mEq/L 02/14/2018 Comp Metabolic Jwk998 K 4.5 mEq/L 02/14/2018 Comp Metabolic Wyo411 CL 97 mEq/L 02/14/2018 Comp Metabolic Npn111 CO2 41.0 mEq/L 02/14/2018 Comp Metabolic Yxc943 ANION GAP 9 02/14/2018 Comp Metabolic Rtz956 GLUCOSE 111 mg/dL 02/14/2018 Comp Metabolic Owz114 Creat 0.6 mg/dL 02/14/2018 Comp Metabolic Jfp445 eGFR 108 ml/min/1.73m2 02/14/2018 Comp Metabolic Omd345 BUN 32 mg/dL 02/14/2018 Comp Metabolic Aqs176 B/C Ratio 54.2 Ratio 02/14/2018 Comp Metabolic Rbq814 CALCIUM 8.9 mg/dL 02/14/2018 Comp Metabolic Tax352 ALK PHOS 81 U/L 02/14/2018 Comp Metabolic Pvv539 AST(SGOT) 14 U/L 02/14/2018 Comp Metabolic Tix079 ALT(SGPT) 11 U/L 02/14/2018 Comp Metabolic Jcs179 BILI T 0.3 mg/dL 02/14/2018 Comp Metabolic Uff865 ALBUMIN 3.4 g/dL 02/14/2018 Comp Metabolic Sli148 TPRO 6.3 g/dL 02/14/2018 Comp Metabolic Dtb590 GLOB 2.9 g/dL 02/14/2018 Comp Metabolic Mvz185 A/G Ratio 1.2 Ratio 02/14/2018 Comp Metabolic Ylm779 Osmo 291 mOsmo 02/14/2018 %Hba1C Ypj655 % HbA1c 56870- 6 5.5 % 02/14/2018 %Hba1C Hrn873 Gluc Ave 111 mg/dL 02/14/2018 Prealbumin 723851 PREALBUMIN 27 mg/dL 11/24/2017 %Hba1C Ggz555 % HbA1c 88388- 6 5.5 % 11/04/2017 %Hba1C Bxn142 Gluc Ave 111 mg/dL 11/04/2017 Culture Urine [id number] URINE CULTURE SEE NOTES 10/04/2017 Culture Urine [id number] Continued Results 10/04/2017 Urine Culture Ucult Complete [...] Ord28 U-Com Culture to follow 10/01/2017 B12 Xzl510 B12 >1500.00 pg/ml 02/19/2017 Cbc With Differential [...] 31.5 pg 02/02/2017 Cbc With Differential Ord2 Blair% 8.3 % 02/02/2017 Cbc With Differential Ord2 [...] 2.28 K/ul 02/02/2017 Cbc With Differential Ord2 Blair ABS# 0.6 K/ul 02/02/2017 Cbc With Differential Ord2 Eos ABS# 0.4 K/ul 02/02/2017 Cbc With Differential Ord2 Baso ABS# 0.0 K/ul 02/02/2017 %Hba1C Vjq734 % HbA1c 74511- 6 5.2 % 02/02/2017 %Hba1C Zqr739 Gluc Ave 103 mg/dL 02/02/2017 Comp Metabolic Jiz399 NA 138 mEq/L 02/02/2017 Comp Metabolic Ddl053 K 4.5 mEq/L 02/02/2017 Comp Metabolic Gjp018 CL 98 mEq/L 02/02/2017 Comp Metabolic Zyz152 CO2 37.0 mEq/L 02/02/2017 Comp Metabolic Mdp195 ANION GAP 8 02/02/2017 Comp Metabolic Clc646 GLUCOSE 94 mg/dL 02/02/2017 Comp Metabolic Tja430 Creat 0.7 mg/dL 02/02/2017 Comp Metabolic Bhw484 eGFR 88 ml/min/1.73m2 02/02/2017 Comp Metabolic Deb579 BUN 36 mg/dL 02/02/2017 Comp Metabolic Cai282 B/C Ratio 50.7 Ratio 02/02/2017 Comp Metabolic Cyy164 CALCIUM 9.0 mg/dL 02/02/2017 Comp Metabolic Iat907 ALK PHOS 78 U/L 02/02/2017 Comp Metabolic Ark144 AST(SGOT) 22 U/L 02/02/2017 Comp Metabolic Rik222 ALT(SGPT) 28 U/L 02/02/2017 Comp Metabolic Duh739 BILI T 0.3 mg/dL 02/02/2017 Comp Metabolic Txa837 ALBUMIN 3.3 g/dL 02/02/2017 Comp Metabolic Jls846 TPRO 5.9 g/dL 02/02/2017 Comp Metabolic Xcv978 GLOB 2.6 g/dL 02/02/2017 Comp Metabolic Uju919 A/G Ratio 1.3 Ratio 02/02/2017 Comp Metabolic Phu550 Osmo 284 mOsmo 02/02/2017 %Hba1C Aoy752 % HbA1c 69940- 6 5.0 % 10/29/2016 %Hba1C Pgd419 Gluc Ave 97 mg/dL 10/29/2016 Culture Urine [id number] URINE CULTURE SEE NOTES 09/21/2016 Culture Urine [id number] Continued Results 09/21/2016 Urine Culture Ucult Complete [...] 32.4 pg 07/30/2016 Cbc With Differential Ord2 Blair% 7.2 % 07/30/2016 Cbc With Differential Ord2 [...] 2.69 K/ul 07/30/2016 Cbc With Differential Ord2 Blair ABS# 0.5 K/ul 07/30/2016 Cbc With Differential Ord2 Eos ABS# 0.5 K/ul 07/30/2016 Cbc With Differential Ord2 Baso ABS# 0.0 K/ul 07/30/2016 Comp Metabolic Vax558 NA 141 mEq/L 07/30/2016 Comp Metabolic Zqt812 K 4.3 mEq/L 07/30/2016 Comp Metabolic Hiv937 CL 100 mEq/L 07/30/2016 Comp Metabolic Gso539 CO2 33.0 mEq/L 07/30/2016 Comp Metabolic Fzs704 ANION GAP 12 07/30/2016 Comp Metabolic Ood184 GLUCOSE 64 mg/dL 07/30/2016 Comp Metabolic Coj846 Creat 0.5 mg/dL 07/30/2016 Comp Metabolic Yco184 eGFR 126 ml/min/1.73m2 07/30/2016 Comp Metabolic Amp676 BUN 25 mg/dL 07/30/2016 Comp Metabolic Jgo817 B/C Ratio 48.1 Ratio 07/30/2016 Comp Metabolic Wli149 CALCIUM 8.9 mg/dL 07/30/2016 Comp Metabolic Hqw831 ALK PHOS 90 U/L 07/30/2016 Comp Metabolic Fyo674 AST(SGOT) 22 U/L 07/30/2016 Comp Metabolic Zqk892 ALT(SGPT) 36 U/L 07/30/2016 Comp Metabolic Kph440 BILI T 0.3 mg/dL 07/30/2016 Comp Metabolic Pvl383 ALBUMIN 3.4 g/dL 07/30/2016 Comp Metabolic Kgn394 TPRO 6.0 g/dL 07/30/2016 Comp Metabolic Flw042 GLOB 2.7 g/dL 07/30/2016 Comp Metabolic Zfe355 A/G Ratio 1.3 Ratio 07/30/2016 Comp Metabolic Pgw276 Osmo 284 mOsmo 07/30/2016 A1C Frequency Pog843 A1CF 44430-3 Last A1C performed at [facility] lab on: 05-12-2016 07/30/2016 %Hba1C Epj437 % HbA1c 18474- 6 5.2 % 05/12/2016 %Hba1C Cyh124 Gluc Ave 103 mg/dL 05/12/2016 Culture Urine [id number] URINE CULTURE SEE NOTES 05/11/2016 Urine Culture [...] U-Com Culture to follow 05/06/2016 Culture Urine [id number] URINE CULTURE SEE NOTES 03/17/2016 Culture Urine [id number] Continued Results 03/17/2016 Urine Culture Ucult Complete [...] 32.0 pg 02/11/2016 Cbc With Differential Ord2 Blair% 9.1 % 02/11/2016 Cbc With Differential Ord2 [...] 2.59 K/ul 02/11/2016 Cbc With Differential Ord2 Blair ABS# 0.6 K/ul 02/11/2016 Cbc With Differential Ord2 Eos ABS# 0.3 K/ul 02/11/2016 Cbc With Differential Ord2 Baso ABS# 0.0 K/ul 02/11/2016 Comp Metabolic Ybw358 NA 137 mEq/L 02/11/2016 Comp Metabolic Uaj858 K 4.4 mEq/L 02/11/2016 Comp Metabolic Gec003 CL 100 mEq/L 02/11/2016 Comp Metabolic Ojx777 CO2 25.0 mEq/L 02/11/2016 Comp Metabolic Tks098 ANION GAP 16 02/11/2016 Comp Metabolic Psr237 GLUCOSE 99 mg/dL 02/11/2016 Comp Metabolic Bsm625 Creat 0.6 mg/dL 02/11/2016 Comp Metabolic Cmp355 eGFR 99 ml/min/1.73m2 02/11/2016 Comp Metabolic Gnc948 BUN 27 mg/dL 02/11/2016 Comp Metabolic Orw674 B/C Ratio 42.2 Ratio 02/11/2016 Comp Metabolic Jdf365 CALCIUM 9.2 mg/dL 02/11/2016 Comp Metabolic Chm179 ALK PHOS 74 U/L 02/11/2016 Comp Metabolic Ppz927 AST(SGOT) 24 U/L 02/11/2016 Comp Metabolic Ldh259 ALT(SGPT) 26 U/L 02/11/2016 Comp Metabolic Jjt194 BILI T 0.5 mg/dL 02/11/2016 Comp Metabolic Tej526 ALBUMIN 3.5 g/dL 02/11/2016 Comp Metabolic Ogu002 TPRO 6.2 g/dL 02/11/2016 Comp Metabolic Zwt744 GLOB 2.7 g/dL 02/11/2016 Comp Metabolic Job921 A/G Ratio 1.3 Ratio 02/11/2016 Comp Metabolic Kvs521 Osmo 279 mOsmo 02/11/2016 Review of Systems [...] 1: 128/86 Code: 8480-6 BMI: 31.4 Code: 60745-8 Heart Rate 1: 72 bpm Height: 5'1" Weight: 166 lbs 06/17/2015 Blood Pressure 1: 110/78 Code: 8480-6 BMI: 33.3 Code: 37894-3 Heart Rate 1: 74 bpm Height: 5'1" [...] Present Encounters Encounter Performer Location Codes Date ([id number]) 67469 EST. PATIENT, LEVEL IV Diagnosis: Cough[ICD10: R05] Diagnosis: Pneumonia, unspecified organism[ICD10: J18.9] Diagnosis: Pain in right knee[ICD10: M25.561] Carlyn Everett MD, [facility] CPT- 4: 79130 03/18/2018 [id number]) 45922 EST. PATIENT, LEVEL IV Diagnosis: Type 2 diabetes mellitus without complications[ICD10: E11.9] Diagnosis: Essential (primary) hypertension[ICD10: I10] Diagnosis: Chronic pain syndrome[ICD10: G89.4] Carlyn Everett MD, [facility] CPT-4: 75138 01/07/2018 ([id number]) 67806 EST. PATIENT, LEVEL IV Diagnosis: Essential (primary) hypertension[ICD10: I10] Diagnosis: Type 2 diabetes mellitus without complications[ICD10: E11.9] Carlyn Everett MD, [facility] CPT-4: 50722 2017 ([id number]) 15707 EST. PATIENT, LEVEL IV Diagnosis: Type 2 diabetes mellitus with hyperglycemia[ICD10: E11.65] Diagnosis: Essential (primary) hypertension[ICD10: I10] Diagnosis: Pain in left shoulder[ICD10: M25.512] Diagnosis: Pain in right shoulder[ICD10: M25.511] Diagnosis: Pain in left knee[ICD10: M25.562] Diagnosis: Pain in right knee[ICD10: M25.561] Vonda Everett MD, [facility] CPT- 4: 84204 09/09/2017 63730 EST. PATIENT, LEVEL IV Diagnosis: Essential (primary) hypertension[ICD10: I10] Diagnosis: Type 2 diabetes mellitus with hyperglycemia[ICD10: E11.65] Diagnosis: Low back pain[ICD10: M54.5] Sunitha Everett MD, [facility] CPT-4: 12862 06/08/2017 ([id number]) 71985 EST. PATIENT, LEVEL IV Diagnosis: Essential (primary) hypertension[ICD10: I10] Diagnosis: Type 2 diabetes mellitus with hyperglycemia[ICD10: E11.65] Diagnosis: Low back pain[ICD10: M54.5] Sunitha Everett MD, [facility] CPT-4: 05072 04/15/2017 ([id number]) 09309 EST. PATIENT, LEVEL IV Diagnosis: Essential (primary) hypertension[ICD10: I10] Diagnosis: Type 2 diabetes mellitus with hyperglycemia[ICD10: E11.65] Diagnosis: Low back pain[ICD10: M54.5] Vonda Everett MD, [facility] CPT-4: 86903 02/16/2017 [id number] EST. 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 CPT-4: 30357 11/09/2016 ([id number]) 90707 EST. 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 CPT- 4: 41369 06/17/2015 Plan of Care Planned Activity Notes Codes Status Date Visit Plan: Pneumonia - Pt has been diagnosed with pneumonia by physical exam. A chest xray has been ordered as have antibiotics. The pt is aware of the diagnosis and the need for acute treatment of this illness. Right knee pain -xray knee-rx for voltaren gel 03/18/2018 Appointment: Carlyn Higginbotham WPtel: [phone] (30 min) Complex 03/18/2018 Patient Education: Patient Medication Summary Completed 03/18/2018 Appointment: Carlyn Higginbotham WPtel: [phone] (30 min) Complex 03/17/2018 Appointment: Carlyn Higginbotham WPtel: [phone] [phone] [place] (15 min) Moderate 03/10/2018 Appointment: Carlyn Higginbotham WPtel: [phone] [phone] (15 min) Moderate 02/08/2018 Visit Plan: DM -decrease levemir to 4 units daily -monitor blood sugars GYM-ttxisdjigx-zg changes Chronic pain -well controlled with fentanyl patch -no changes at this time 01/07/2018 Appointment: Carlyn Higginbotham WPtel: [phone] [place] (15 min) Moderate 01/07/2018 Patient [...] AT HS 2017 Appointment: Carlyn Higginbotham WPtel: [phone] [phone] [place] (15 min) Moderate 2017 Patient [...] 175mcg. 09/09/2017 [phone] [place] (15 min) Moderate 09/09/2017 Patient [...] record. 06/08/2017 [phone] ([facility] Complex 06/08/2017 Patient Education: [...] over-medication. 04/15/2017 App[facility]ment[phone] ([facility] min) Complex 04/15/2017 Patient Education: [...] today. 02/16/2017 [phone] (15 min) Moderate 02/16/2017 Patient [...] concerns. 11/09/2016 [phone] [facility] ([facility] min) Complex 11/09/2016 Patient Education: Patient Medication Summary Completed 11/09/2016 Care Plan: Referral Order SNOMED-CT : [id number] Pending 11/09/2016 Patient Education: Patient Medication Summary [...] Follow up weight in 1 month Neck xiuz-rusmxwzlvbg-Lgeo PT focus neck/upper body Right earache-cerumen removed with water pick today in the office 07/18/2015 Appointment: (30 min) Complex 07/18/2015 Patient Education: Patient Medication Summary Completed 07/18/2015 Patient Education: Obesity Completed 07/18/2015 Patient Education: .Cervicalgia Neck Pain Completed 07/18/2015 Referral: [facility] WPtel: [phone] [facility] Referral Completed 06/25/2015 Visit Plan: Hypertension [...] normal liver response to medications. [facility] for post stroke - left sided weakness, neck stiffness, upper extremity weakness Diabetes Mellitus - controlled - per family report - check labs this week, get report from and [facility]. I spent over an hour with the patient in direct contact. 06/17/2015 Appointment: Vonda Everett WPtel: [phone] [facility] New Patient 06/17/2015 Patient Education: Patient Medication Summary Completed 06/17/2015 Patient Education: Obesity Completed 06/17/2015 Patient Education: Hypertension Completed 06/17/2015 Care Plan: Referral Order SNOMED-CT : [id number] Ordered 06/17/2015 Referral: Jorge Luis Carroll Referral Initiated Referral: [facility] WPtel: [phone] [facility] Referral Appointment Requested Instructions Comment . [...] labs this week, get report from and [facility]. I spent over an hour with the patient in direct contact. . PEG tube - tube has not been replaced in some time, some mild irritation noted around the tube - will refer to surgeon for PEG tube replacement. Pt/family is to notify clinic with any changes, questions, or concerns. Add 1 scoop of whey protein from [facility] to 2 feedings per day . [...] Follow up weight in 1 month Neck qsnd-orutfsurtzy-Fopw PT focus neck/upper body Right earache-cerumen removed [...] to 4 units daily -monitor blood sugars PUC-zbczxhubrd-iw changes Chronic pain -well controlled with fentanyl [...]
--- OUTSIDE RECORDS SUMMARY | 2018-08-09 11:47 | XMS REPORT | CCD ---
Author Author [facility]onda [facility]rett Organization [facility] Address [address] [place] [address] Phone Care Team Providers Care Ophthalmic Photographer Name Role Phone PP Unavailable CCM Unavailable Summary Purpose Interface Exchange Insurance Providers Payer name Policy type / Coverage type Covered green party ID Effective Begin Date Effective End Date WPS Medicare Part B Medicare Part B [id number] Unknown Unknown [employer] Insurance Medicare Part B [id number] Unknown Unknown Family history Father Diagnosis Age At Onset Arthritis Unknown Hypertension Unknown Mother Diagnosis Age At Onset Diabetes mellitus Type 2 Unknown Depression Unknown Arthritis Unknown Stroke Unknown Hypertension Unknown Sister Diagnosis Age At Onset Colon cancer Unknown Social History Social History Element Codes Description Effective Dates Marital status Unknown Maurice 01/07/2018 Living arrangements Unknown Jail [facility] 04/15/2017 Number of children Unknown 3 06/17/2015 Employment Unknown Retired 06/17/[address]: 2825668 Quit over 10 years ago 15+ 06/17/[address]: 806858979 Never drinks alcohol 06/17/2015 Allergies, Adverse Reactions, [...] Instructions hyoscyamine 0.125 mg disintegrating tablet RxNorm: 3114983 Tablet(s) 1-2 Tablet(s) PO Q8 as needed 03/31/2018 No Stop Date Active Duragesic 75 mcg/hr transdermal patch RxNorm: 258922 1 Patch TD Q72H 03/31/2018 04/29/2018 Active fentanyl 100 mcg/hr transdermal patch RxNorm: 551374 1 Patch TD Q72H 03/31/2018 04/29/2018 Active carvedilol 3.125 mg tablet RxNorm: 863547 Tablet(s) GIVE 1 TABLET VIA PEG TUBE 2 TIMES A DAY 03/30/2018 06/27/2018 Active Generic For:COREG 3.125MG 10/22/2017 9:23:30 AM Voltaren 1 % topical gel RxNorm: 979883 APPLY 4 GRAMS TO RIGHT KNEE FOUR TIMES DAILY 03/30/2018 04/22/2018 Active Generic For:VOLTAREN GEL 1% 03/30/2018 11:14:57 AM hydrocodone 10 mg-acetaminophen 325 mg tablet RxNorm: 536724 2 Tablet(s) PO scheduled TID 03/23/2018 04/21/2018 Active Not to exceed 3gm/24hr acetaminophen Zithromax Z-Eliu 250 mg tablet RxNorm: 168030 Tablet(s) PO 03/18/2018 No Stop Date Active albuterol sulfate concentrate 5 mg/mL(0.5 %) solution for nebulization RxNorm: 823878 1 Vial Milliliter(s) INH TID PRN as needed congestion 03/18/2018 No Stop Date Active cefdinir 300 mg capsule RxNorm: 088852 1 Capsule(s) PO BID 03/18/2018 03/24/2018 Inactive Voltaren 1 % topical gel RxNorm: 960213 4 Gram(s) TOP QID 03/18/2018 03/29/2018 Inactive hydrochlorothiazide 25 mg tablet RxNorm: 313120 GIVE 1 TABLET VIA PEG TUBE ONCE DAILY 03/11/2018 09/06/2018 Active Generic For:HYDRODIURIL 25 MG TABLET 03/11/2018 9:15:32 AM fentanyl 100 mcg/hr transdermal patch RxNorm: 126792 1 Patch TD Q72H 03/02/2018 03/30/2018 Inactive Duragesic 75 mcg/hr transdermal patch RxNorm: 833305 1 Patch TD Q72H 03/02/2018 03/30/2018 Inactive hydrocodone 10 mg-acetaminophen 325 mg tablet RxNorm: 200946 2 Tablet(s) PO scheduled TID 02/18/2018 03/22/2018 Inactive Not to exceed 3gm/24hr acetaminophen hyoscyamine 0.125 mg disintegrating tablet RxNorm: 4925477 Tablet(s) 1-2 Tablet(s) PO Q8 as needed 02/08/2018 03/30/2018 Inactive fentanyl 100 mcg/hr transdermal patch RxNorm: 123389 1 Patch TD Q72H 02/04/2018 03/01/2018 Inactive hydrocodone 10 mg-acetaminophen 325 mg tablet RxNorm: 851713 2 Tablet(s) PO scheduled TID 02/04/2018 02/17/2018 Inactive Not to exceed 3gm/24hr acetaminophen Duragesic 75 mcg/hr transdermal patch RxNorm: 402528 1 Patch TD Q72H 02/04/2018 03/01/2018 Inactive Levemir FlexTouch U-100 Insulin 100 unit/mL (3 mL) subcutaneous pen RxNorm: 996508 4 Unit(s) SQ QHS 01/07/2018 No Stop Date Active Duragesic 75 mcg/hr transdermal patch RxNorm: 018481 1 Patch TD Q72H 01/07/2018 02/03/2018 Inactive fentanyl 100 mcg/hr transdermal patch RxNorm: 657423 1 Patch TD Q72H 01/07/2018 02/03/2018 Inactive hydrocodone 10 mg-acetaminophen 325 mg tablet RxNorm: 594738 2 Tablet(s) PO scheduled TID 01/05/2018 02/03/2018 Inactive Not to exceed 3gm/24hr acetaminophen hydrocodone 10 mg-acetaminophen 325 mg tablet RxNorm: 952441 2 Tablet(s) PO scheduled TID and 1 tab q 4 as needed 01/04/2018 01/04/2018 Inactive Not to exceed 3gm/24hr acetaminophen cyanocobalamin (vit B-12) 1,000 mcg tablet RxNorm: 496816 1 Tablet(s) PO daily 12/28/2017 11/22/2018 Active baclofen 10 mg tablet RxNorm: 674641 Tablet(s) TAKE 1 TABLET THREE TIMES DAILY VIA STOMACH TUBE 12/27/2017 05/25/2018 Active 10/07/2017 5:36:15 PM 10/07/2017 5:36:13 PM N O T I C E Last quantity doesn't match original quantity Duragesic 75 mcg/hr transdermal patch RxNorm: 862098 1 Patch TD Q72H 12/22/2017 01/06/2018 Inactive fentanyl 100 mcg/hr transdermal patch RxNorm: 516685 1 Patch TD Q72H 12/22/2017 01/06/2018 Inactive hydrocodone 10 mg-acetaminophen 325 mg tablet RxNorm: 710966 2 Tablet(s) PO scheduled TID and 1 tab q 4 as needed 12/20/2017 01/03/2018 Inactive Not to exceed 3gm/24hr acetaminophen hyoscyamine 0.125 mg disintegrating tablet RxNorm: 4776484 1-2 Tablet(s) PO Q8 as needed 12/14/2017 02/07/2018 Inactive Duragesic 75 mcg/hr transdermal patch RxNorm: 093679 1 Patch TD Q72H 12/06/2017 12/21/2017 Inactive fentanyl 100 mcg/hr transdermal patch RxNorm: 841869 1 Patch TD Q72H 12/06/2017 12/21/2017 Inactive hydrocodone 10 mg-acetaminophen 325 mg tablet RxNorm: 551296 2 Tablet(s) PO scheduled TID and 1 tab q 4 as needed 11/29/2017 12/19/2017 Inactive Not to exceed 3gm/24hr acetaminophen Duragesic 75 mcg/hr transdermal patch RxNorm: 341904 1 Patch TD Q72H 11/11/2017 12/05/2017 Inactive hydrocodone 10 mg-acetaminophen 325 mg tablet RxNorm: 890711 2 Tablet(s) PO scheduled TID and 1 tab q 4 as needed 11/09/2017 11/28/2017 Inactive Not to exceed 3gm/24hr acetaminophen Levemir FlexTouch U-100 Insulin 100 unit/mL (3 mL) subcutaneous pen RxNorm: 530184 8 Unit(s) SQ QHS 11/09/2017 01/06/2018 Inactive fentanyl 100 mcg/hr transdermal patch RxNorm: 529586 1 Patch TD Q72H 2017 12/05/2017 Inactive hyoscyamine 0.125 mg disintegrating tablet RxNorm: 4209413 1-2 Tablet(s) PO Q8 as needed 11/03/2017 12/13/2017 Inactive carvedilol 3.125 mg tablet RxNorm: 775935 GIVE 1 TABLET VIA PEG TUBE 2 TIMES A DAY 10/22/2017 01/19/2018 Inactive Generic For:COREG 3.125MG 10/22/2017 9:23:30 AM hydrocodone 10 mg-acetaminophen 325 mg tablet RxNorm: 011047 2 Tablet(s) PO scheduled TID and 1 tab q 4 as needed 10/22/2017 2017 Inactive Not to exceed 3gm/24hr acetaminophen fentanyl 100 mcg/hr transdermal patch RxNorm: 959817 1 Patch TD Q72H 10/20/2017 11/07/2017 Inactive Duragesic 75 mcg/hr transdermal patch RxNorm: 149126 1 Patch TD Q72H 10/20/2017 11/10/2017 Inactive lorazepam 0.5 mg tablet RxNorm: 530954 1 Tablet(s) PO BID and 1 tab q 6 hours prn 10/18/2017 04/06/2018 Inactive baclofen 10 mg tablet RxNorm: 044551 TAKE 1 TABLET THREE TIMES DAILY VIA STOMACH TUBE 10/07/2017 12/26/2017 Inactive 10/07/2017 5:36:15 PM 10/07/2017 5:36:13 PM N O T I C E Last quantity doesn't match original quantity cranberry extract 500 mg tablet RxNorm: 9354132 1 Tablet(s) PO QAM 10/04/2017 01/31/2018 Inactive Cipro 500 mg tablet RxNorm: 413168 1 Tablet(s) PO BID 10/04/2017 10/03/2017 Inactive dc keflex hydrocodone 10 mg-acetaminophen 325 mg tablet RxNorm: 760054 2 Tablet(s) PO scheduled TID as needed 10/04/2017 10/21/2017 Inactive Not to exceed 3gm/24hr acetaminophen cranberry extract 500 mg tablet RxNorm: 7586306 1 Tablet(s) PO QAM 10/04/2017 10/03/2017 Inactive Cipro 500 mg tablet RxNorm: 294885 1 Tablet(s) PO BID 10/04/2017 10/10/2017 Inactive dc keflex Duragesic 75 mcg/hr transdermal patch RxNorm: 293682 1 Patch TD Q72H 09/20/2017 10/19/2017 Inactive fentanyl 100 mcg/hr transdermal patch RxNorm: 974955 1 Patch TD Q72H 09/20/2017 10/19/2017 Inactive hyoscyamine 0.125 mg disintegrating tablet RxNorm: 7715925 1 Tablet(s) PO TID and 1 Tablet Q4H prn increased secretions 09/15/2017 11/02/2017 Inactive hydrocodone 10 mg-acetaminophen 325 mg tablet RxNorm: 499797 2 Tablet(s) PO scheduled TID and 1-2 Tabs Q4H PRN pain 09/15/2017 10/03/2017 Inactive Not to exceed 3gm/24hr acetaminophen lorazepam 0.5 mg tablet RxNorm: 358448 1 Tablet(s) PO BID 09/15/2017 10/17/2017 Inactive Lexapro 10 mg tablet RxNorm: 768014 1 Tablet(s) PO daily 09/10/2017 09/14/2017 Inactive lisinopril 10 mg tablet RxNorm: 439748 1 Tablet(s) PO daily 09/09/2017 06/05/2018 Active Levemir FlexTouch U-100 Insulin 100 unit/mL (3 mL) subcutaneous pen RxNorm: 381238 10 Unit(s) daily 09/09/2017 09/15/2017 Inactive Duragesic 75 mcg/hr transdermal patch RxNorm: 397591 1 Patch TD Q72H 09/09/2017 09/19/2017 Inactive nystatin 100,000 unit/gram topical cream RxNorm: 051206 1 Gram(s) TOP TID until healed to gaulding 09/06/2017 01/03/2018 Inactive nystatin 100,000 unit/gram topical cream RxNorm: 484692 1 Gram(s) TOP TID until healed to gaulding 09/06/2017 09/05/2017 Inactive hydrocodone 10 mg-acetaminophen 325 mg tablet RxNorm: 803240 2 Tablet(s) PO scheduled TID as needed 08/31/2017 09/14/2017 Inactive Not to exceed 3gm/24hr acetaminophen fentanyl 100 mcg/hr transdermal patch RxNorm: 775092 1 Patch TD Q72H 08/24/2017 09/19/2017 Inactive fentanyl 50 mcg/hr transdermal patch RxNorm: 413589 1 Patch TD Q72H 08/24/2017 09/08/2017 Inactive fentanyl 25 mcg/hr transdermal patch RxNorm: 622538 1 Patch TD Q72H 08/24/2017 08/24/2017 Inactive hyoscyamine 0.125 mg disintegrating tablet RxNorm: 4632900 Tablet(s) 1-2 Tablet(s) PO Q8 as needed 08/23/2017 09/14/2017 Inactive hydrocodone 10 mg-acetaminophen 325 mg tablet RxNorm: 798589 1 Tablet(s) PO scheduled TID et Q6 hours as needed 08/18/2017 08/30/2017 Inactive Not to exceed 3gm/24hr acetaminophen hydrochlorothiazide 25 mg tablet RxNorm: 539167 GIVE 1 TABLET VIA PEG TUBE ONCE DAILY 08/17/2017 02/12/2018 Inactive Generic For:HYDRODIURIL 25 MG TABLET 08/17/2017 9:01:54 AM08/11/2017 10:12:00 AM lorazepam 0.5 mg tablet RxNorm: 356742 1/2 Tablet(s) PO BID 08/03/2017 09/14/2017 Inactive fentanyl 100 mcg/hr transdermal patch RxNorm: 791406 1 Patch TD Q72H 07/26/2017 08/23/2017 Inactive fentanyl 25 mcg/hr transdermal patch RxNorm: 541893 1 Patch TD Q72H 07/26/2017 08/23/2017 Inactive hydrocodone 10 mg-acetaminophen 325 mg tablet RxNorm: 938497 1 Tablet(s) PO scheduled TID et Q6 hours as needed 07/16/2017 08/14/2017 Inactive Not to exceed 3gm/24hr acetaminophen hyoscyamine 0.125 mg disintegrating tablet RxNorm: 9684520 Tablet(s) 1-2 Tablet(s) PO Q8 as needed 07/13/2017 08/01/2017 Inactive baclofen 10 mg tablet RxNorm: 718679 TAKE 1 TABLET THREE TIMES DAILY VIA STOMACH TUBE 07/12/2017 10/06/2017 Inactive 07/12/2017 9:04:08 AM N O T I C E Last quantity doesn't match original quantity lorazepam 0.5 mg tablet RxNorm: 484590 1/2 Tablet(s) PO BID 07/02/2017 08/02/2017 Inactive fentanyl 100 mcg/hr transdermal patch RxNorm: 997845 1 Patch TD Q72H 06/28/2017 07/25/2017 Inactive fentanyl 25 mcg/hr transdermal patch RxNorm: 563739 1 Patch TD Q72H 06/28/2017 07/25/2017 Inactive hyoscyamine 0.125 mg disintegrating tablet RxNorm: 5429985 Tablet(s) 1-2 Tablet(s) PO Q8 as needed 06/03/2017 06/22/2017 Inactive fentanyl 25 mcg/hr transdermal patch RxNorm: 944638 1 Patch TD Q72H 05/26/2017 06/24/2017 Inactive Levemir FlexTouch U-100 Insulin 100 unit/mL (3 mL) subcutaneous pen RxNorm: 455367 20 Unit(s) SQ BID 05/26/2017 09/08/2017 Inactive fentanyl 100 mcg/hr transdermal patch RxNorm: 815520 1 Patch TD Q72H 05/26/2017 06/24/2017 Inactive hydrocodone 10 mg-acetaminophen 325 mg tablet RxNorm: 974012 1 Tablet(s) PO scheduled BID et Q6 hours as needed 05/12/2017 05/11/2017 Inactive hydrocodone 10 mg-acetaminophen 325 mg tablet RxNorm: 149307 1 Tablet(s) PO scheduled TID et Q6 hours as needed 05/12/2017 06/10/2017 Inactive Not to exceed 3gm/24hr acetaminophen docusate sodium 100 mg tablet RxNorm: 2630363 1 Tablet(s) PO BID as needed if no bowel movement 05/10/2017 05/09/2017 Inactive lisinopril 20 mg tablet RxNorm: 520710 1 Tablet(s) PO daily 05/10/2017 09/08/2017 Inactive docusate sodium 100 mg tablet RxNorm: 3165123 1 Tablet(s) PO BID as needed if no bowel movement 05/10/2017 09/14/2017 Inactive fentanyl 25 mcg/hr transdermal patch RxNorm: 251710 1 Patch TD Q72H 05/03/2017 05/25/2017 Inactive lorazepam 0.5 mg tablet RxNorm: 408359 1/2 Tablet(s) PO BID 05/03/2017 07/01/2017 Inactive fentanyl 100 mcg/hr transdermal patch RxNorm: 988131 1 Patch TD Q72H 04/27/2017 05/25/2017 Inactive carvedilol 3.125 mg tablet RxNorm: 122523 Tablet(s) GIVE 1 TABLET VIA PEG TUBE DAILY 04/15/2017 10/21/2017 Inactive Levemir FlexTouch 100 unit/mL (3 mL) subcutaneous insulin pen RxNorm: 152318 10 Unit(s) SQ BID 04/15/2017 2017 Inactive hyoscyamine 0.125 mg disintegrating tablet RxNorm: 4316119 1-2 Tablet(s) PO Q8 as needed 04/14/2017 05/03/2017 Inactive hydrocodone 10 mg-acetaminophen 325 mg tablet RxNorm: 721038 1 Tablet(s) PO scheduled BID et Q6 hours as needed 04/13/2017 05/02/2017 Inactive baclofen 10 mg tablet RxNorm: 273293 TAKE 1 TABLET THREE TIMES DAILY VIA STOMACH TUBE 04/08/2017 05/22/2017 Inactive 04/08/2017 9:32:07 AM fentanyl 25 mcg/hr transdermal patch RxNorm: 166948 1 Patch TD Q72H 04/05/2017 05/02/2017 Inactive lidocaine 10 mg/mL (1 %) injection solution RxNorm: 5314686 1 Milliliter(s) Inj daily Mix with rocephin 03/31/2017 03/30/2017 Inactive Pt resides at [facility] lidocaine 10 mg/mL (1 %) injection solution RxNorm: 0379608 1 Milliliter(s) Inj daily Mix with rocephin 03/31/2017 04/06/2017 Inactive Pt resides at [facility] fentanyl 100 mcg/hr transdermal patch RxNorm: 864207 1 Patch TD Q72H 03/29/2017 04/26/2017 Inactive nystatin 100,000 unit/gram topical powder RxNorm: 285575 APPLY UNDER BREASTS TWICE DAILY FOR YEAST SKIN INFECTION AND APPLY TO UNDERARM AND ABDOMINAL FOLDS AND PERIAREA TWICE DAILY 03/29/2017 03/28/2017 Inactive 03/27/2017 9:12:50 AM nystatin 100,000 unit/gram topical powder RxNorm: 727863 APPLY UNDER BREASTS TWICE DAILY FOR YEAST SKIN INFECTION AND APPLY TO UNDERARM AND ABDOMINAL FOLDS AND PERIAREA TWICE DAILY 03/29/2017 09/14/2017 Inactive 03/29/2017 9:42:55 AM03/27/2017 9:12:50 AM hyoscyamine 0.125 mg disintegrating tablet RxNorm: 3433604 1-2 Tablet(s) PO Q8 as needed 03/08/2017 03/27/2017 Inactive fentanyl 25 mcg/hr transdermal patch RxNorm: 019001 1 Patch TD Q72H 03/02/2017 03/31/2017 Inactive hydrocodone 10 mg-acetaminophen 325 mg tablet RxNorm: 943895 1 Tablet(s) PO scheduled BID et Q6 hours as needed 02/17/2017 03/18/2017 Inactive fentanyl 100 mcg/hr transdermal patch RxNorm: 080988 1 Patch TD Q72H 02/17/2017 03/18/2017 Inactive Lexapro 10 mg tablet RxNorm: 151652 1 Tablet(s) PO daily 02/05/2017 04/14/2017 Inactive Lexapro 10 mg tablet RxNorm: 304887 1 Tablet(s) PO daily 02/05/2017 02/04/2017 Inactive fentanyl 25 mcg/hr transdermal patch RxNorm: 956009 1 Patch TD Q72H 02/04/2017 03/01/2017 Inactive cyanocobalamin (vit B-12) 1,000 mcg tablet RxNorm: 792169 1 Tablet(s) PO daily 01/18/2017 12/13/2017 Inactive hyoscyamine 0.125 mg disintegrating tablet RxNorm: 6995277 Tablet(s) 1-2 Tablet(s) PO Q8 as needed 01/18/2017 02/06/2017 Inactive baclofen 10 mg tablet RxNorm: 033065 TAKE 1 TABLET THREE TIMES DAILY VIA STOMACH TUBE 01/04/2017 02/17/2017 Inactive 01/04/2017 9:25:18 AM fentanyl 100 mcg/hr transdermal patch RxNorm: 386595 1 Patch TD Q72H 12/25/2016 01/23/2017 Inactive hydrochlorothiazide 25 mg tablet RxNorm: 310177 Tablet(s) GIVE 1 TABLET VIA PEG TUBE ONCE A DAY 12/14/2016 07/11/2017 Inactive fentanyl 100 mcg/hr transdermal patch RxNorm: 486464 1 Patch TD Q72H 11/25/2016 12/24/2016 Inactive hyoscyamine 0.125 mg disintegrating tablet RxNorm: 1776440 Tablet(s) 1-2 Tablet(s) PO Q8 as needed 11/25/2016 12/14/2016 Inactive nystatin 100,000 unit/gram topical powder RxNorm: 405117 APPLY UNDER BREASTS TWICE DAILY FOR YEAST SKIN INFECTION AND APPLY TO UNDERARM AND ABDOMINAL FOLDS AND PERIAREA TWICE DAILY 11/24/2016 01/22/2017 Inactive 11/24/2016 9:34:02 AM hydrocodone 10 mg-acetaminophen 325 mg tablet RxNorm: 311726 1 Tablet(s) PO scheduled BID et Q6 hours as needed 11/02/2016 12/01/2016 Inactive cyanocobalamin (vit B-12) 1,000 mcg tablet RxNorm: 408073 1 Tablet(s) PO daily 11/02/2016 01/17/2017 Inactive hyoscyamine 0.125 mg disintegrating tablet RxNorm: 2647197 1-2 Tablet(s) PO Q8 as needed 10/19/2016 11/24/2016 Inactive fentanyl 100 mcg/hr transdermal patch RxNorm: 072788 1 Patch TD Q72H 10/13/2016 11/11/2016 Inactive hydrocodone 10 mg-acetaminophen 325 mg tablet RxNorm: 645657 1 Tablet(s) PO scheduled BID et Q6 hours as needed 10/05/2016 11/01/2016 Inactive baclofen 10 mg tablet RxNorm: 287124 TAKE 1 TABLET THREE TIMES DAILY VIA STOMACH TUBE 10/01/2016 11/14/2016 Inactive 10/01/2016 9:24:37 AM carvedilol 3.125 mg tablet RxNorm: 126732 GIVE 1 TABLET VIA PEG TUBE 2 TIMES A DAY 09/30/2016 12/28/2016 Inactive Generic For:COREG 3.125MG 09/30/2016 1:12:28 PM09/25/2016 9:06:11 AM Probiotic Blend 2 million cell-50 mg capsule RxNorm: 1 Capsule(s) PO BID 09/17/2016 09/23/2016 Inactive Keflex 500 mg capsule RxNorm: 154760 1 Capsule(s) PO TID 09/17/2016 09/23/2016 Inactive hyoscyamine 0.125 mg/5 mL oral elixir RxNorm: 5738232 5 Milliliter(s) PO TID 09/08/2016 09/17/2016 Inactive hyoscyamine 0.125 mg/5 mL oral elixir RxNorm: 4691189 5 Milliliter(s) PO TID 09/08/2016 09/07/2016 Inactive hyoscyamine 0.125 mg disintegrating tablet RxNorm: 0798847 1-2 Tablet(s) PO Q8 as needed 09/07/2016 10/18/2016 Inactive fentanyl 100 mcg/hr transdermal patch RxNorm: 602018 1 Patch TD Q72H 09/01/2016 09/30/2016 Inactive ranitidine 150 mg tablet RxNorm: 391781 1 Tablet(s) PO BID 08/25/2016 No Stop Date Active hydrocodone 10 mg-acetaminophen 325 mg tablet RxNorm: 853904 1 Tablet(s) PO scheduled BID et Q6 hours as needed 08/24/2016 09/22/2016 Inactive cyanocobalamin (vit B-12) 1,000 mcg tablet RxNorm: 816204 1 Tablet(s) PO daily 08/12/2016 11/01/2016 Inactive cyanocobalamin (vit B-12) 1,000 mcg tablet RxNorm: 169334 1 Tablet(s) PO daily 08/12/2016 08/11/2016 Inactive hydrocodone 10 mg-acetaminophen 325 mg tablet RxNorm: 963347 1-2 Tablet(s) PO Q6 as needed 08/03/2016 08/17/2016 Inactive fentanyl 100 mcg/hr transdermal patch RxNorm: 496904 1 Patch TD Q72H 08/03/2016 08/31/2016 Inactive nystatin 100,000 unit/gram topical powder RxNorm: 742653 APPLY UNDER BREASTS TWICE DAILY FOR YEAST SKIN INFECTION AND APPLY TO UNDERARM AND ABDOMINAL FOLDS AND PERIAREA TWICE DAILY 07/17/2016 09/14/2016 Inactive 07/17/2016 3:56:54 PM fentanyl 100 mcg/hr transdermal patch RxNorm: 178432 1 Patch TD Q72H 07/15/2016 08/02/2016 Inactive lisinopril 20 mg tablet RxNorm: 677190 1 Tablet(s) PO daily 07/02/2016 03/28/2017 Inactive hydrocodone 10 mg-acetaminophen 325 mg tablet RxNorm: 311024 1-2 Tablet(s) PO Q6 as needed 07/01/2016 07/15/2016 Inactive Xarelto 20 mg tablet RxNorm: 5339580 Tablet(s) TAKE 1 TABLET VIA PEG TUBE AT BEDTIME 06/19/2016 04/14/2017 Inactive fentanyl 100 mcg/hr transdermal patch RxNorm: 448668 1 Patch TD Q72H 06/17/2016 07/14/2016 Inactive nystatin 100,000 unit/gram topical powder RxNorm: 083915 APPLY TO UNDER BREASTS TWICE DAILY FOR YEAST SKIN INFECTION AND APPLY TO UNDERARM AND ABDOMINAL FOLDS AND PERIAREA TWICE DAILY 06/15/2016 07/16/2016 Inactive Generic For:MYCOSTATIN 100,000 UNITS/GM PW 06/15/2016 12:28:26 PM fentanyl 100 mcg/hr transdermal patch RxNorm: 374751 1 Patch TD Q72H 06/05/2016 06/16/2016 Inactive hydrocodone 10 mg-acetaminophen 325 mg tablet RxNorm: 380008 1-2 Tablet(s) PO Q6 as needed 06/02/2016 06/16/2016 Inactive Probiotic Blend 2 million cell-50 mg capsule RxNorm: 1 Capsule(s) PO BID 05/13/2016 05/19/2016 Inactive nitrofurantoin 100 mg capsule RxNorm: 530308 1 Capsule(s) PO BID 05/13/2016 05/19/2016 Inactive nitrofurantoin 100 mg capsule RxNorm: 522927 1 Capsule(s) PO BID 05/13/2016 05/12/2016 Inactive fentanyl 75 mcg/hr transdermal patch RxNorm: 678150 1 Patch TD Q72H 05/13/2016 06/04/2016 Inactive Keflex 500 mg capsule RxNorm: 553105 1 Capsule(s) PO TID 05/07/2016 05/13/2016 Inactive Patient at [facility] Keflex 500 mg capsule RxNorm: 172082 1 Capsule(s) PO TID 05/07/2016 05/06/2016 Inactive hydrocodone 10 mg-acetaminophen 325 mg tablet RxNorm: 464274 1-2 Tablet(s) PO Q6 as needed 05/04/2016 06/01/2016 Inactive hydrochlorothiazide 25 mg tablet RxNorm: 192470 Tablet(s) GIVE 1 TABLET VIA PEG TUBE ONCE A DAY 04/29/2016 11/24/2016 Inactive hydrochlorothiazide 25 mg tablet RxNorm: 886449 GIVE 1 TABLET VIA PEG TUBE ONCE A DAY 04/22/2016 04/28/2016 Inactive Generic For:HYDRODIURIL 25 MG TABLET refill request fentanyl 75 mcg/hr transdermal patch RxNorm: 794335 1 Patch TD Q72H 04/17/2016 05/12/2016 Inactive Xarelto 20 mg tablet RxNorm: 8043696 TAKE 1 TABLET VIA PEG TUBE AT BEDTIME 04/16/2016 06/14/2016 Inactive 04/16/2016 9:08:52 AM citalopram 40 mg tablet RxNorm: 012651 1 Tablet(s) PO daily 04/02/2016 02/25/2017 Inactive citalopram 40 mg tablet RxNorm: 106189 1 Tablet(s) PO daily 03/27/2016 04/01/2016 Inactive hydrocodone 10 mg-acetaminophen 325 mg tablet RxNorm: 953882 1-2 Tablet(s) PO Q6 as needed 03/27/2016 04/25/2016 Inactive fentanyl 75 mcg/hr transdermal patch RxNorm: 373193 1 Patch TD Q72H 03/18/2016 04/16/2016 Inactive hydrocodone 10 mg-acetaminophen 325 mg tablet RxNorm: 482624 1-2 Tablet(s) PO Q6 as needed 03/11/2016 03/26/2016 Inactive citalopram 40 mg tablet RxNorm: 447203 1 Tablet(s) PO daily 03/04/2016 03/26/2016 Inactive Levemir FlexTouch U-100 Insulin 100 unit/mL (3 mL) subcutaneous pen RxNorm: 461707 20 Unit(s) SQ BID 03/02/2016 09/27/2016 Inactive lisinopril 20 mg tablet RxNorm: 422265 1 Tablet(s) PO daily 02/25/2016 07/01/2016 Inactive Ativan 0.5 mg tablet RxNorm: 294653 1 Tablet(s) PO Q4H as needed 02/18/2016 04/14/2017 Inactive Xarelto 20 mg tablet RxNorm: 8363102 TAKE 1 TABLET VIA PEG TUBE AT BEDTIME 02/12/2016 04/11/2016 Inactive 02/12/2016 9:08:22 AM hydrocodone 10 mg-acetaminophen 325 mg tablet RxNorm: 536742 1-2 Tablet(s) PO Q6 as needed 02/12/2016 03/10/2016 Inactive fentanyl 75 mcg/hr transdermal patch RxNorm: 561234 1 Patch TD Q72H 02/11/2016 03/11/2016 Inactive citalopram 20 mg tablet RxNorm: 866707 1 Tablet(s) PO daily 01/28/2016 03/03/2016 Inactive fentanyl 75 mcg/hr transdermal patch RxNorm: 250181 1 TD Q72H 01/17/2016 02/10/2016 Inactive hydrocodone 10 mg-acetaminophen 325 mg tablet RxNorm: 533841 1-2 Tablet(s) PO Q6 as needed 01/07/2016 02/05/2016 Inactive fentanyl 50 mcg/hr transdermal patch RxNorm: 689367 1 TD Q72H 01/01/2016 01/16/2016 Inactive fentanyl 50 mcg/hr transdermal patch RxNorm: 353278 1 TD q 3 days 12/26/2015 12/31/2015 Inactive Xarelto 20 mg tablet RxNorm: 9317324 TAKE 1 TABLET VIA PEG TUBE AT BEDTIME 12/17/2015 02/11/2016 Inactive 12/16/2015 3:27:57 PM12/14/2015 9:45:17 AM hydrocodone 10 mg-acetaminophen 325 mg tablet RxNorm: 750728 1-2 Tablet(s) PO Q6 as needed 12/06/2015 01/04/2016 Inactive fentanyl 50 mcg/hr transdermal patch RxNorm: 242763 1 TD q 3 days 12/06/2015 12/25/2015 Inactive fentanyl 25 mcg/hr transdermal patch RxNorm: 831817 1 TD q 3 days 11/18/2015 12/05/2015 Inactive Zithromax Z-Eliu 250 mg tablet RxNorm: 328733 1 Tablet(s) PO UD 10/09/2015 02/26/2016 Inactive z pack as directed- please write out instructions- pt at [facility] nystatin 100,000 unit/gram topical powder RxNorm: 077382 APPLY TO UNDER BREASTS TWICE DAILY FOR YEAST SKIN INFECTION AND APPLY TO UNDERARM AND ABDOMINAL FOLDS AND PERIAREA TWICE DAILY 10/07/2015 12/05/2015 Inactive Generic For:MYCOSTATIN 100,000 UNITS/GM PW 10/05/2015 12:07:35 PM fentanyl 25 mcg/hr transdermal patch RxNorm: 741901 1 TD q 3 days 10/03/2015 11/01/2015 Inactive fentanyl 25 mcg/hr transdermal patch RxNorm: 597816 1 TD q 3 days 09/27/2015 10/02/2015 Inactive fentanyl 25 mcg/hr transdermal patch RxNorm: 310654 1 TD q 3 days 09/17/2015 09/26/2015 Inactive fentanyl 25 mcg/hr transdermal patch RxNorm: 318135 1 TD q 3 days 08/30/2015 09/16/2015 Inactive hydrocodone 5 mg-acetaminophen 325 mg tablet RxNorm: 586872 1 Tablet(s) PO Q6 as needed 08/30/2015 09/28/2015 Inactive Diflucan 100 mg tablet RxNorm: 455748 1 Tablet(s) Miscellaneous per peg daily 07/29/2015 08/04/2015 Inactive fentanyl 25 mcg/hr transdermal patch RxNorm: 278625 1 TD q 3 days 07/18/2015 08/29/2015 Inactive hydrocodone 5 mg-acetaminophen 325 mg tablet RxNorm: 273806 1 Tablet(s) PO Q6 as needed 07/18/2015 08/29/2015 Inactive Diflucan 100 mg tablet RxNorm: 619875 1 Tablet(s) Miscellaneous per peg daily 06/17/2015 06/23/2015 Inactive Senna-S 8.6 mg-50 mg tablet RxNorm: 082104 1 Tablet(s) PO daily as needed constipation No Start Date Active Dulcolax (bisacodyl) 10 mg rectal suppository RxNorm: 986353 1 Suppository RTL daily as needed constipation No Start Date Active polyethylene glycol 3350 17 gram/dose oral powder RxNorm: 778300 17 Gram(s) PO daily as needed constipation No Start Date Active baclofen 10 mg tablet RxNorm: 862521 1 Tablet(s) PO TID No Start Date 09/30/2016 Inactive Ativan 0.5 mg tablet RxNorm: 879352 1 Tablet(s) PO Q4H as needed No Start Date 02/17/2016 Inactive ranitidine 150 mg tablet RxNorm: 280060 1 Tablet(s) PO daily No Start Date 08/24/2016 Inactive carvedilol 3.125 mg tablet RxNorm: 952616 1 Tablet(s) PO daily No Start Date 09/29/2016 Inactive citalopram 40 mg tablet RxNorm: 810670 1 Tablet(s) PO daily No Start Date 01/27/2016 Inactive Probiotic Blend oral RxNorm: oral No Start Date 05/12/2016 Inactive hydrochlorothiazide 25 mg tablet RxNorm: 600901 1 Tablet(s) PO daily No Start Date 04/21/2016 Inactive albuterol sulfate concentrate 5 mg/mL(0.5 %) solution for nebulization RxNorm: 576013 1 Vial INH daily as needed congestion No Start Date 03/17/2018 Inactive Levemir FlexTouch 100 unit/mL (3 mL) subcutaneous insulin pen RxNorm: 071572 10 Unit(s) SQ BID No Start Date 03/01/2016 Inactive Zithromax Z-Eliu 250 mg tablet RxNorm: 101734 1 Tablet(s) PO UD No Start Date 10/08/2015 Inactive z pack as directed- please write out instructions- pt at [facility] nystatin 100,000 unit/gram topical powder RxNorm: 282152 Gram(s) TOP BID as needed No Start Date 10/06/2015 Inactive pravastatin 40 mg tablet RxNorm: 538582 Tablet(s) PO daily No Start Date 04/14/2017 Inactive lorazepam 0.5 mg tablet RxNorm: 373721 1/2 Tablet(s) PO BID No Start Date 05/02/2017 Inactive Xarelto 20 mg tablet RxNorm: 3665537 1 Tablet(s) PO daily No Start Date 12/16/2015 Inactive fentanyl 25 mcg/hr transdermal patch RxNorm: 790060 1 TD q 3 days No Start Date 07/17/2015 Inactive lisinopril 20 mg tablet RxNorm: 607520 1 Tablet(s) PO daily No Start Date 02/24/2016 Inactive hydrocodone 5 mg-acetaminophen 325 mg tablet RxNorm: 884025 1 Tablet(s) PO Q6 as needed No Start Date 07/17/2015 Inactive citalopram 40 mg tablet RxNorm: 662482 1 Tablet(s) PO daily No Start Date 03/03/2016 Inactive hyoscyamine 0.125 mg disintegrating tablet RxNorm: 1099110 1-2 Tablet(s) PO Q8 as needed No [...] Baso ABS# 0.0 K/ul 02/14/2018 Comp Metabolic Pbn572 NA 142 mEq/L 02/14/2018 Comp Metabolic Ewo868 K 4.5 mEq/L 02/14/2018 Comp Metabolic Yus271 CL 97 mEq/L 02/14/2018 Comp Metabolic Ujd404 CO2 41.0 mEq/L 02/14/2018 Comp Metabolic Pme582 ANION GAP 9 02/14/2018 Comp Metabolic Drq900 GLUCOSE 111 mg/dL 02/14/2018 Comp Metabolic Ckv949 Creat 0.6 mg/dL 02/14/2018 Comp Metabolic Qhb141 eGFR 108 ml/min/1.73m2 02/14/2018 Comp Metabolic Cuw865 BUN 32 mg/dL 02/14/2018 Comp Metabolic Crx326 B/C Ratio 54.2 Ratio 02/14/2018 Comp Metabolic Pjr915 CALCIUM 8.9 mg/dL 02/14/2018 Comp Metabolic Eky600 ALK PHOS 81 U/L 02/14/2018 Comp Metabolic Lcj723 AST(SGOT) 14 U/L 02/14/2018 Comp Metabolic Cjx702 ALT(SGPT) 11 U/L 02/14/2018 Comp Metabolic Ajb336 BILI T 0.3 mg/dL 02/14/2018 Comp Metabolic Gti189 ALBUMIN 3.4 g/dL 02/14/2018 Comp Metabolic Tnn423 TPRO 6.3 g/dL 02/14/2018 Comp Metabolic Fbt145 GLOB 2.9 g/dL 02/14/2018 Comp Metabolic Ibh332 A/G Ratio 1.2 Ratio 02/14/2018 Comp Metabolic Ycq146 Osmo 291 mOsmo 02/14/2018 %Hba1C Rwm531 % HbA1c 07632- 6 5.5 % 02/14/2018 %Hba1C Hji741 Gluc Ave 111 mg/dL 02/14/2018 Prealbumin 348735 PREALBUMIN 27 mg/dL 11/24/2017 %Hba1C Kpn508 % HbA1c 25174- 6 5.5 % 11/04/2017 %Hba1C Nce933 Gluc Ave 111 mg/dL 11/04/2017 Culture Urine [id number] URINE CULTURE SEE NOTES 10/04/2017 Culture Urine [id number] Continued Results 10/04/2017 Urine Culture Ucult Complete [...] Ord28 U-Com Culture to follow 10/01/2017 B12 Oom096 B12 >1500.00 pg/ml 02/19/2017 Cbc With Differential [...] Ord2 Baso ABS# 0.0 K/ul 02/02/2017 %Hba1C Usd455 % HbA1c 01275- 6 5.2 % 02/02/2017 %Hba1C Hkr185 Gluc Ave 103 mg/dL 02/02/2017 Comp Metabolic Iwj849 NA 138 mEq/L 02/02/2017 Comp Metabolic Zxo654 K 4.5 mEq/L 02/02/2017 Comp Metabolic Wpa248 CL 98 mEq/L 02/02/2017 Comp Metabolic Qxt150 CO2 37.0 mEq/L 02/02/2017 Comp Metabolic Jrb496 ANION GAP 8 02/02/2017 Comp Metabolic Krb011 GLUCOSE 94 mg/dL 02/02/2017 Comp Metabolic Rvh980 Creat 0.7 mg/dL 02/02/2017 Comp Metabolic Xbo695 eGFR 88 ml/min/1.73m2 02/02/2017 Comp Metabolic Ove330 BUN 36 mg/dL 02/02/2017 Comp Metabolic Gim869 B/C Ratio 50.7 Ratio 02/02/2017 Comp Metabolic Qxg366 CALCIUM 9.0 mg/dL 02/02/2017 Comp Metabolic Rmf113 ALK PHOS 78 U/L 02/02/2017 Comp Metabolic Yte446 AST(SGOT) 22 U/L 02/02/2017 Comp Metabolic Drd511 ALT(SGPT) 28 U/L 02/02/2017 Comp Metabolic Ahg631 BILI T 0.3 mg/dL 02/02/2017 Comp Metabolic Ldb939 ALBUMIN 3.3 g/dL 02/02/2017 Comp Metabolic Set627 TPRO 5.9 g/dL 02/02/2017 Comp Metabolic Mhe675 GLOB 2.6 g/dL 02/02/2017 Comp Metabolic Gog735 A/G Ratio 1.3 Ratio 02/02/2017 Comp Metabolic Tdy381 Osmo 284 mOsmo 02/02/2017 %Hba1C Boh066 % HbA1c 48451- 6 5.0 % 10/29/2016 %Hba1C Azp827 Gluc Ave 97 mg/dL 10/29/2016 Culture Urine [id number] URINE CULTURE SEE NOTES 09/21/2016 Culture Urine [id number] Continued Results 09/21/2016 Urine Culture Ucult Complete [...] Baso ABS# 0.0 K/ul 07/30/2016 Comp Metabolic Soz612 NA 141 mEq/L 07/30/2016 Comp Metabolic Pdz571 K 4.3 mEq/L 07/30/2016 Comp Metabolic Kmz451 CL 100 mEq/L 07/30/2016 Comp Metabolic Xjx698 CO2 33.0 mEq/L 07/30/2016 Comp Metabolic Wlq451 ANION GAP 12 07/30/2016 Comp Metabolic Eos660 GLUCOSE 64 mg/dL 07/30/2016 Comp Metabolic Fmx240 Creat 0.5 mg/dL 07/30/2016 Comp Metabolic Hsf588 eGFR 126 ml/min/1.73m2 07/30/2016 Comp Metabolic Xpt646 BUN 25 mg/dL 07/30/2016 Comp Metabolic Akt871 B/C Ratio 48.1 Ratio 07/30/2016 Comp Metabolic Vda260 CALCIUM 8.9 mg/dL 07/30/2016 Comp Metabolic Xsw857 ALK PHOS 90 U/L 07/30/2016 Comp Metabolic Xzn167 AST(SGOT) 22 U/L 07/30/2016 Comp Metabolic Ims500 ALT(SGPT) 36 U/L 07/30/2016 Comp Metabolic Hhf804 BILI T 0.3 mg/dL 07/30/2016 Comp Metabolic Oyv318 ALBUMIN 3.4 g/dL 07/30/2016 Comp Metabolic Pfm554 TPRO 6.0 g/dL 07/30/2016 Comp Metabolic Oyt768 GLOB 2.7 g/dL 07/30/2016 Comp Metabolic Tpl964 A/G Ratio 1.3 Ratio 07/30/2016 Comp Metabolic Ppy609 Osmo 284 mOsmo 07/30/2016 A1C Frequency Qnk852 A1CF 01538-3 Last A1C performed at [facility] on: 05-12-2016 07/30/2016 %Hba1C Ksv074 % HbA1c 58910- 6 5.2 % 05/12/2016 %Hba1C Mcw674 Gluc Ave 103 mg/dL 05/12/2016 Culture Urine [id number] URINE CULTURE SEE NOTES 05/11/2016 Urine Culture [...] U-Com Culture to follow 05/06/2016 Culture Urine [id number] URINE CULTURE SEE NOTES 03/17/2016 Culture Urine [id number] Continued Results 03/17/2016 Urine Culture Ucult Complete [...] Baso ABS# 0.0 K/ul 02/11/2016 Comp Metabolic Cyc994 NA 137 mEq/L 02/11/2016 Comp Metabolic Cwa013 K 4.4 mEq/L 02/11/2016 Comp Metabolic Xab629 CL 100 mEq/L 02/11/2016 Comp Metabolic Prq303 CO2 25.0 mEq/L 02/11/2016 Comp Metabolic Ila140 ANION GAP 16 02/11/2016 Comp Metabolic Tzz952 GLUCOSE 99 mg/dL 02/11/2016 Comp Metabolic Ets168 Creat 0.6 mg/dL 02/11/2016 Comp Metabolic Qst164 eGFR 99 ml/min/1.73m2 02/11/2016 Comp Metabolic Pwq441 BUN 27 mg/dL 02/11/2016 Comp Metabolic Mtk054 B/C Ratio 42.2 Ratio 02/11/2016 Comp Metabolic Cxc394 CALCIUM 9.2 mg/dL 02/11/2016 Comp Metabolic Dai874 ALK PHOS 74 U/L 02/11/2016 Comp Metabolic Qnt845 AST(SGOT) 24 U/L 02/11/2016 Comp Metabolic Muv439 ALT(SGPT) 26 U/L 02/11/2016 Comp Metabolic Ysa561 BILI T 0.5 mg/dL 02/11/2016 Comp Metabolic Uoz555 ALBUMIN 3.5 g/dL 02/11/2016 Comp Metabolic Jxx427 TPRO 6.2 g/dL 02/11/2016 Comp Metabolic Bdd151 GLOB 2.7 g/dL 02/11/2016 Comp Metabolic Oqb997 A/G Ratio 1.3 Ratio 02/11/2016 Comp Metabolic Isi787 Osmo 279 mOsmo 02/11/2016 Review of Systems [...] 1: 128/86 Code: 8480-6 BMI: 31.4 Code: 62649-2 Heart Rate 1: 72 bpm Height: 5'1" Weight: 166 lbs 06/17/2015 Blood Pressure 1: 110/78 Code: 8480-6 BMI: 33.3 Code: 80057-0 Heart Rate 1: 74 bpm Height: 5'1" [...] Present Encounters Encounter Performer Location Codes Date ([id number]) 79524 EST. PATIENT, LEVEL IV Diagnosis: Cough[ICD10: R05] Diagnosis: Pneumonia, unspecified organism[ICD10: J18.9] Diagnosis: Pain in right knee[ICD10: M25.561] Carlyn Everett MD, [facility] CPT- 4: 32522 03/18/2018 ([id number]) 54706 EST. PATIENT, LEVEL IV Diagnosis: Type 2 diabetes mellitus without complications[ICD10: E11.9] Diagnosis: Essential (primary) hypertension[ICD10: I10] Diagnosis: Chronic pain syndrome[ICD10: G89.4] Carlyn Everett MD, [facility] CPT-4: 20381 01/07/2018 ([id number]) 82921 EST. PATIENT, LEVEL IV Diagnosis: Essential (primary) hypertension[ICD10: I10] Diagnosis: Type 2 diabetes mellitus without complications[ICD10: E11.9] Carlyn Everett MD, [facility] CPT-4: 85899 2017 ([id number]) 53177 EST. PATIENT, LEVEL IV Diagnosis: Type 2 diabetes mellitus with hyperglycemia[ICD10: E11.65] Diagnosis: Essential (primary) hypertension[ICD10: I10] Diagnosis: Pain in left shoulder[ICD10: M25.512] Diagnosis: Pain in right shoulder[ICD10: M25.511] Diagnosis: Pain in left knee[ICD10: M25.562] Diagnosis: Pain in right knee[ICD10: M25.561] Vonda Everett MD, [facility] CPT- 4: 20060 09/09/2017 58469 EST. PATIENT, LEVEL IV Diagnosis: Essential (primary) hypertension[ICD10: I10] Diagnosis: Type 2 diabetes mellitus with hyperglycemia[ICD10: E11.65] Diagnosis: Low back pain[ICD10: M54.5] Sunitha Everett MD, [facility] CPT-4: 71654 06/08/2017 ([id number]) 93232 EST. PATIENT, LEVEL IV Diagnosis: Essential (primary) hypertension[ICD10: I10] Diagnosis: Type 2 diabetes mellitus with hyperglycemia[ICD10: E11.65] Diagnosis: Low back pain[ICD10: M54.5] Sunitha Everett MD, [facility] CPT-4: 31002 04/15/2017 ([id number]) 92547 EST. PATIENT, LEVEL IV Diagnosis: Essential (primary) hypertension[ICD10: I10] Diagnosis: Type 2 diabetes mellitus with hyperglycemia[ICD10: E11.65] Diagnosis: Low back pain[ICD10: M54.5] Vonda Everett MD, [facility] CPT-4: 11655 02/16/2017 [id number] EST. 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 A chest xray has been ordered as have antibiotics. The pt is aware of the diagnosis and the need for acute treatment of this illness. Right knee pain -xray knee-rx for voltaren gel 03/18/2018 Appointment: Carlyn Higginbotham WPtel: [phone] [phone] [place] (30 min) Complex 03/18/2018 Patient Education: Patient Medication Summary Completed 03/18/2018 Appointment: Carlyn Higginbotham WPtel: [phone] [place] (30 min) Complex 03/17/2018 Appointment: Carlyn Higginbotham WPtel: [phone] [place] (15 min) Moderate 03/10/2018 Appointment: Carlyn Higginbotham WPtel: [phone] [phone] [place] (15 min) Moderate 02/08/2018 Visit Plan: DM -decrease levemir to 4 units daily -monitor blood sugars BWR-urnglxzrpz-ex changes Chronic pain -well controlled with fentanyl patch -no changes at this time 01/07/2018 Appointment: Carlyn Higginbotham WPtel: [phone] [place] (15 min) Moderate 01/07/2018 Patient [...] HS 2017 Appointment: Carlyn Higginbotham WPtel: [phone] [phone] [place] (15 min) Moderate 2017 Patient [...] 175mcg. 09/09/2017 Appointment: Vonda Everett WPtel: [phone] [phone] [place] (15 min) Moderate 09/09/2017 Patient Education: [...] record. 06/08/2017 [phone] ([facility] Complex 06/08/2017 Patient Education: [...] over-medication. 04/15/2017 [facility]ment[phone] ([facility] min) Complex 04/15/2017 Patient Education: [...] today. 02/16/2017 [phone] ([facility]) Moderate 02/16/2017 Patient Education: [...] concerns. 11/09/2016 App[facility]ment[phone] ([facility] min) Complex 11/09/2016 Patient Education: Patient Medication Summary Completed 11/09/2016 Care Plan: Referral Order SNOMED-CT : [id number] Pending 11/09/2016 Patient Education: Patient Medication Summary [...] Follow up weight in 1 month Neck glrm-gvwcftonjio-[facility] PT focus neck/upper body Right earache-cerumen removed with water pick today in the office 07/18/2015 Appointment: (30 min) Complex 07/18/2015 Patient Education: Patient Medication Summary Completed 07/18/2015 Patient Education: Obesity Completed 07/18/2015 Patient Education: .Cervicalgia Neck Pain Completed 07/18/2015 Referral: [facility] WPtel: [phone] Referral Completed 06/25/2015 Visit Plan: Hypertension [...] normal liver response to medications. referral to [facility] for post stroke - left sided weakness, neck stiffness, upper extremity weakness Diabetes Mellitus - controlled - per family report - check labs this week, get report from and [facility]. I spent over an hour with the patient in direct contact. 06/17/2015 Appointment: Vonda Everett WPtel: [phone] New Patient 06/17/2015 Patient Education: Patient Medication Summary Completed 06/17/2015 Patient Education: Obesity Completed 06/17/2015 Patient Education: Hypertension Completed 06/17/2015 Care Plan: Referral Order SNOMED-CT : [id number] Ordered 06/17/2015 Referral: Jorge Luis Carroll Referral Initiated Referral: [facility] WPtel: [phone] Referral Appointment Requested Instructions Comment . [...] liver response to medications. referral to [facility] therapy for post stroke - left sided weakness, neck stiffness, upper extremity weakness Diabetes Mellitus - controlled - per family report - check labs this week, get report from and [facility]. I spent over an hour with the [...] Follow up weight in 1 month Neck efql-zgdbqajwijb-[facility] PT focus neck/upper body Right earache-cerumen removed [...] to 4 units daily -monitor blood sugars RPJ-rdtysmwdqh-wg changes Chronic pain -well controlled with fentanyl [...] living fax over PRN medication administration record. . [...]
--- OUTSIDE RECORDS SUMMARY | 2018-08-09 11:50 | XMS REPORT | CCD ---
Author Author [facility] Organization [facility] Address [address] [place] [address] Phone Care Team Providers Care Commercial Title Examiner Name Role Phone PP Unavailable CCM Unavailable Summary Purpose Interface Exchange Insurance Providers Payer name Policy type / Coverage type Covered green party ID Effective Begin Date Effective End Date WPS Medicare Part B Medicare Part B [id number] Unknown Unknown [employer] [facility] [facility] Life Insurance Medicare Part B [id number] Unknown Unknown Family history Father Diagnosis Age At Onset Arthritis Unknown Hypertension Unknown Mother Diagnosis Age At Onset Diabetes mellitus Type 2 Unknown Depression Unknown Arthritis Unknown Stroke Unknown Hypertension Unknown Sister Diagnosis Age At Onset Colon cancer Unknown Social History Social History Element Codes Description Effective Dates Marital status Unknown Maurice 01/07/2018 Living arrangements Unknown Retirement [facility] 04/15/2017 Number of children Unknown 3 06/17/2015 Employment Unknown Retired 06/17/[address]: 8907960 Quit over 10 years ago 15+ 06/17/[address]: 687093822 Never drinks alcohol 06/17/2015 Allergies, Adverse Reactions, [...] Instructions hyoscyamine 0.125 mg disintegrating tablet RxNorm: 2631842 Tablet(s) 1-2 Tablet(s) PO Q8 as needed 03/31/2018 No Stop Date Active Duragesic 75 mcg/hr transdermal patch RxNorm: 055527 1 Patch TD Q72H 03/31/2018 04/29/2018 Active fentanyl 100 mcg/hr transdermal patch RxNorm: 428629 1 Patch TD Q72H 03/31/2018 04/29/2018 Active carvedilol 3.125 mg tablet RxNorm: 664398 Tablet(s) GIVE 1 TABLET VIA PEG TUBE 2 TIMES A DAY 03/30/2018 06/27/2018 Active Generic For:COREG 3.125MG 10/22/2017 9:23:30 AM Voltaren 1 % topical gel RxNorm: 125705 APPLY 4 GRAMS TO RIGHT KNEE FOUR TIMES DAILY 03/30/2018 04/22/2018 Active Generic For:VOLTAREN GEL 1% 03/30/2018 11:14:57 AM hydrocodone 10 mg-acetaminophen 325 mg tablet RxNorm: 556047 2 Tablet(s) PO scheduled TID 03/23/2018 04/21/2018 Active Not to exceed 3gm/24hr acetaminophen Zithromax Z-Eliu 250 mg tablet RxNorm: 619085 Tablet(s) PO 03/18/2018 No Stop Date Active albuterol sulfate concentrate 5 mg/mL(0.5 %) solution for nebulization RxNorm: 135084 1 Vial Milliliter(s) INH TID PRN as needed congestion 03/18/2018 No Stop Date Active cefdinir 300 mg capsule RxNorm: 607169 1 Capsule(s) PO BID 03/18/2018 03/24/2018 Inactive Voltaren 1 % topical gel RxNorm: 836048 4 Gram(s) TOP QID 03/18/2018 03/29/2018 Inactive hydrochlorothiazide 25 mg tablet RxNorm: 297146 GIVE 1 TABLET VIA PEG TUBE ONCE DAILY 03/11/2018 09/06/2018 Active Generic For:HYDRODIURIL 25 MG TABLET 03/11/2018 9:15:32 AM fentanyl 100 mcg/hr transdermal patch RxNorm: 744655 1 Patch TD Q72H 03/02/2018 03/30/2018 Inactive Duragesic 75 mcg/hr transdermal patch RxNorm: 764077 1 Patch TD Q72H 03/02/2018 03/30/2018 Inactive hydrocodone 10 mg-acetaminophen 325 mg tablet RxNorm: 168671 2 Tablet(s) PO scheduled TID 02/18/2018 03/22/2018 Inactive Not to exceed 3gm/24hr acetaminophen hyoscyamine 0.125 mg disintegrating tablet RxNorm: 6354869 Tablet(s) 1-2 Tablet(s) PO Q8 as needed 02/08/2018 03/30/2018 Inactive fentanyl 100 mcg/hr transdermal patch RxNorm: 628124 1 Patch TD Q72H 02/04/2018 03/01/2018 Inactive hydrocodone 10 mg-acetaminophen 325 mg tablet RxNorm: 019424 2 Tablet(s) PO scheduled TID 02/04/2018 02/17/2018 Inactive Not to exceed 3gm/24hr acetaminophen Duragesic 75 mcg/hr transdermal patch RxNorm: 774515 1 Patch TD Q72H 02/04/2018 03/01/2018 Inactive Levemir FlexTouch U-100 Insulin 100 unit/mL (3 mL) subcutaneous pen RxNorm: 184993 4 Unit(s) SQ QHS 01/07/2018 No Stop Date Active Duragesic 75 mcg/hr transdermal patch RxNorm: 053163 1 Patch TD Q72H 01/07/2018 02/03/2018 Inactive fentanyl 100 mcg/hr transdermal patch RxNorm: 286083 1 Patch TD Q72H 01/07/2018 02/03/2018 Inactive hydrocodone 10 mg-acetaminophen 325 mg tablet RxNorm: 845240 2 Tablet(s) PO scheduled TID 01/05/2018 02/03/2018 Inactive Not to exceed 3gm/24hr acetaminophen hydrocodone 10 mg-acetaminophen 325 mg tablet RxNorm: 991682 2 Tablet(s) PO scheduled TID and 1 tab q 4 as needed 01/04/2018 01/04/2018 Inactive Not to exceed 3gm/24hr acetaminophen cyanocobalamin (vit B-12) 1,000 mcg tablet RxNorm: 244140 1 Tablet(s) PO daily 12/28/2017 11/22/2018 Active baclofen 10 mg tablet RxNorm: 120025 Tablet(s) TAKE 1 TABLET THREE TIMES DAILY VIA STOMACH TUBE 12/27/2017 05/25/2018 Active 10/07/2017 5:36:15 PM 10/07/2017 5:36:13 PM N O T I C E Last quantity doesn't match original quantity Duragesic 75 mcg/hr transdermal patch RxNorm: 079094 1 Patch TD Q72H 12/22/2017 01/06/2018 Inactive fentanyl 100 mcg/hr transdermal patch RxNorm: 617348 1 Patch TD Q72H 12/22/2017 01/06/2018 Inactive hydrocodone 10 mg-acetaminophen 325 mg tablet RxNorm: 005018 2 Tablet(s) PO scheduled TID and 1 tab q 4 as needed 12/20/2017 01/03/2018 Inactive Not to exceed 3gm/24hr acetaminophen hyoscyamine 0.125 mg disintegrating tablet RxNorm: 3544989 1-2 Tablet(s) PO Q8 as needed 12/14/2017 02/07/2018 Inactive Duragesic 75 mcg/hr transdermal patch RxNorm: 109599 1 Patch TD Q72H 12/06/2017 12/21/2017 Inactive fentanyl 100 mcg/hr transdermal patch RxNorm: 604022 1 Patch TD Q72H 12/06/2017 12/21/2017 Inactive hydrocodone 10 mg-acetaminophen 325 mg tablet RxNorm: 134432 2 Tablet(s) PO scheduled TID and 1 tab q 4 as needed 11/29/2017 12/19/2017 Inactive Not to exceed 3gm/24hr acetaminophen Duragesic 75 mcg/hr transdermal patch RxNorm: 846384 1 Patch TD Q72H 11/11/2017 12/05/2017 Inactive hydrocodone 10 mg-acetaminophen 325 mg tablet RxNorm: 416522 2 Tablet(s) PO scheduled TID and 1 tab q 4 as needed 11/09/2017 11/28/2017 Inactive Not to exceed 3gm/24hr acetaminophen Levemir FlexTouch U-100 Insulin 100 unit/mL (3 mL) subcutaneous pen RxNorm: 823579 8 Unit(s) SQ QHS 11/09/2017 01/06/2018 Inactive fentanyl 100 mcg/hr transdermal patch RxNorm: 286414 1 Patch TD Q72H 2017 12/05/2017 Inactive hyoscyamine 0.125 mg disintegrating tablet RxNorm: 3865964 1-2 Tablet(s) PO Q8 as needed 11/03/2017 12/13/2017 Inactive carvedilol 3.125 mg tablet RxNorm: 761065 GIVE 1 TABLET VIA PEG TUBE 2 TIMES A DAY 10/22/2017 01/19/2018 Inactive Generic For:COREG 3.125MG 10/22/2017 9:23:30 AM hydrocodone 10 mg-acetaminophen 325 mg tablet RxNorm: 710065 2 Tablet(s) PO scheduled TID and 1 tab q 4 as needed 10/22/2017 2017 Inactive Not to exceed 3gm/24hr acetaminophen fentanyl 100 mcg/hr transdermal patch RxNorm: 826462 1 Patch TD Q72H 10/20/2017 11/07/2017 Inactive Duragesic 75 mcg/hr transdermal patch RxNorm: 334470 1 Patch TD Q72H 10/20/2017 11/10/2017 Inactive lorazepam 0.5 mg tablet RxNorm: 638532 1 Tablet(s) PO BID and 1 tab q 6 hours prn 10/18/2017 No Stop Date Active baclofen 10 mg tablet RxNorm: 187754 TAKE 1 TABLET THREE TIMES DAILY VIA STOMACH TUBE 10/07/2017 12/26/2017 Inactive 10/07/2017 5:36:15 PM 10/07/2017 5:36:13 PM N O T I C E Last quantity doesn't match original quantity cranberry extract 500 mg tablet RxNorm: 3725554 1 Tablet(s) PO QAM 10/04/2017 01/31/2018 Inactive Cipro 500 mg tablet RxNorm: 220888 1 Tablet(s) PO BID 10/04/2017 10/03/2017 Inactive dc keflex hydrocodone 10 mg-acetaminophen 325 mg tablet RxNorm: 076573 2 Tablet(s) PO scheduled TID as needed 10/04/2017 10/21/2017 Inactive Not to exceed 3gm/24hr acetaminophen cranberry extract 500 mg tablet RxNorm: 5408022 1 Tablet(s) PO QAM 10/04/2017 10/03/2017 Inactive Cipro 500 mg tablet RxNorm: 561913 1 Tablet(s) PO BID 10/04/2017 10/10/2017 Inactive dc keflex Duragesic 75 mcg/hr transdermal patch RxNorm: 754821 1 Patch TD Q72H 09/20/2017 10/19/2017 Inactive fentanyl 100 mcg/hr transdermal patch RxNorm: 894652 1 Patch TD Q72H 09/20/2017 10/19/2017 Inactive hyoscyamine 0.125 mg disintegrating tablet RxNorm: 6949160 1 Tablet(s) PO TID and 1 Tablet Q4H prn increased secretions 09/15/2017 11/02/2017 Inactive hydrocodone 10 mg-acetaminophen 325 mg tablet RxNorm: 081060 2 Tablet(s) PO scheduled TID and 1-2 Tabs Q4H PRN pain 09/15/2017 10/03/2017 Inactive Not to exceed 3gm/24hr acetaminophen lorazepam 0.5 mg tablet RxNorm: 464054 1 Tablet(s) PO BID 09/15/2017 10/17/2017 Inactive Lexapro 10 mg tablet RxNorm: 359376 1 Tablet(s) PO daily 09/10/2017 09/14/2017 Inactive lisinopril 10 mg tablet RxNorm: 968735 1 Tablet(s) PO daily 09/09/2017 06/05/2018 Active Levemir FlexTouch U-100 Insulin 100 unit/mL (3 mL) subcutaneous pen RxNorm: 215754 10 Unit(s) daily 09/09/2017 09/15/2017 Inactive Duragesic 75 mcg/hr transdermal patch RxNorm: 259466 1 Patch TD Q72H 09/09/2017 09/19/2017 Inactive nystatin 100,000 unit/gram topical cream RxNorm: 000584 1 Gram(s) TOP TID until healed to gaulding 09/06/2017 01/03/2018 Inactive nystatin 100,000 unit/gram topical cream RxNorm: 529338 1 Gram(s) TOP TID until healed to gaulding 09/06/2017 09/05/2017 Inactive hydrocodone 10 mg-acetaminophen 325 mg tablet RxNorm: 247670 2 Tablet(s) PO scheduled TID as needed 08/31/2017 09/14/2017 Inactive Not to exceed 3gm/24hr acetaminophen fentanyl 100 mcg/hr transdermal patch RxNorm: 963410 1 Patch TD Q72H 08/24/2017 09/19/2017 Inactive fentanyl 50 mcg/hr transdermal patch RxNorm: 849966 1 Patch TD Q72H 08/24/2017 09/08/2017 Inactive fentanyl 25 mcg/hr transdermal patch RxNorm: 817833 1 Patch TD Q72H 08/24/2017 08/24/2017 Inactive hyoscyamine 0.125 mg disintegrating tablet RxNorm: 3388702 Tablet(s) 1-2 Tablet(s) PO Q8 as needed 08/23/2017 09/14/2017 Inactive hydrocodone 10 mg-acetaminophen 325 mg tablet RxNorm: 857867 1 Tablet(s) PO scheduled TID et Q6 hours as needed 08/18/2017 08/30/2017 Inactive Not to exceed 3gm/24hr acetaminophen hydrochlorothiazide 25 mg tablet RxNorm: 338206 GIVE 1 TABLET VIA PEG TUBE ONCE DAILY 08/17/2017 02/12/2018 Inactive Generic For:HYDRODIURIL 25 MG TABLET 08/17/2017 9:01:54 AM08/11/2017 10:12:00 AM lorazepam 0.5 mg tablet RxNorm: 500448 1/2 Tablet(s) PO BID 08/03/2017 09/14/2017 Inactive fentanyl 100 mcg/hr transdermal patch RxNorm: 708747 1 Patch TD Q72H 07/26/2017 08/23/2017 Inactive fentanyl 25 mcg/hr transdermal patch RxNorm: 501568 1 Patch TD Q72H 07/26/2017 08/23/2017 Inactive hydrocodone 10 mg-acetaminophen 325 mg tablet RxNorm: 088858 1 Tablet(s) PO scheduled TID et Q6 hours as needed 07/16/2017 08/14/2017 Inactive Not to exceed 3gm/24hr acetaminophen hyoscyamine 0.125 mg disintegrating tablet RxNorm: 0775955 Tablet(s) 1-2 Tablet(s) PO Q8 as needed 07/13/2017 08/01/2017 Inactive baclofen 10 mg tablet RxNorm: 282133 TAKE 1 TABLET THREE TIMES DAILY VIA STOMACH TUBE 07/12/2017 10/06/2017 Inactive 07/12/2017 9:04:08 AM N O T I C E Last quantity doesn't match original quantity lorazepam 0.5 mg tablet RxNorm: 281855 1/2 Tablet(s) PO BID 07/02/2017 08/02/2017 Inactive fentanyl 100 mcg/hr transdermal patch RxNorm: 831974 1 Patch TD Q72H 06/28/2017 07/25/2017 Inactive fentanyl 25 mcg/hr transdermal patch RxNorm: 594837 1 Patch TD Q72H 06/28/2017 07/25/2017 Inactive hyoscyamine 0.125 mg disintegrating tablet RxNorm: 4014447 Tablet(s) 1-2 Tablet(s) PO Q8 as needed 06/03/2017 06/22/2017 Inactive fentanyl 25 mcg/hr transdermal patch RxNorm: 098703 1 Patch TD Q72H 05/26/2017 06/24/2017 Inactive Levemir FlexTouch U-100 Insulin 100 unit/mL (3 mL) subcutaneous pen RxNorm: 819304 20 Unit(s) SQ BID 05/26/2017 09/08/2017 Inactive fentanyl 100 mcg/hr transdermal patch RxNorm: 568128 1 Patch TD Q72H 05/26/2017 06/24/2017 Inactive hydrocodone 10 mg-acetaminophen 325 mg tablet RxNorm: 621129 1 Tablet(s) PO scheduled BID et Q6 hours as needed 05/12/2017 05/11/2017 Inactive hydrocodone 10 mg-acetaminophen 325 mg tablet RxNorm: 848463 1 Tablet(s) PO scheduled TID et Q6 hours as needed 05/12/2017 06/10/2017 Inactive Not to exceed 3gm/24hr acetaminophen docusate sodium 100 mg tablet RxNorm: 0990077 1 Tablet(s) PO BID as needed if no bowel movement 05/10/2017 05/09/2017 Inactive lisinopril 20 mg tablet RxNorm: 408239 1 Tablet(s) PO daily 05/10/2017 09/08/2017 Inactive docusate sodium 100 mg tablet RxNorm: 8546564 1 Tablet(s) PO BID as needed if no bowel movement 05/10/2017 09/14/2017 Inactive fentanyl 25 mcg/hr transdermal patch RxNorm: 593414 1 Patch TD Q72H 05/03/2017 05/25/2017 Inactive lorazepam 0.5 mg tablet RxNorm: 882228 1/2 Tablet(s) PO BID 05/03/2017 07/01/2017 Inactive fentanyl 100 mcg/hr transdermal patch RxNorm: 939816 1 Patch TD Q72H 04/27/2017 05/25/2017 Inactive carvedilol 3.125 mg tablet RxNorm: 498818 Tablet(s) GIVE 1 TABLET VIA PEG TUBE DAILY 04/15/2017 10/21/2017 Inactive Levemir FlexTouch 100 unit/mL (3 mL) subcutaneous insulin pen RxNorm: 166266 10 Unit(s) SQ BID 04/15/2017 2017 Inactive hyoscyamine 0.125 mg disintegrating tablet RxNorm: 9102915 1-2 Tablet(s) PO Q8 as needed 04/14/2017 05/03/2017 Inactive hydrocodone 10 mg-acetaminophen 325 mg tablet RxNorm: 066700 1 Tablet(s) PO scheduled BID et Q6 hours as needed 04/13/2017 05/02/2017 Inactive baclofen 10 mg tablet RxNorm: 421195 TAKE 1 TABLET THREE TIMES DAILY VIA STOMACH TUBE 04/08/2017 05/22/2017 Inactive 04/08/2017 9:32:07 AM fentanyl 25 mcg/hr transdermal patch RxNorm: 782404 1 Patch TD Q72H 04/05/2017 05/02/2017 Inactive lidocaine 10 mg/mL (1 %) injection solution RxNorm: 7707787 1 Milliliter(s) Inj daily Mix with rocephin 03/31/2017 03/30/2017 Inactive Pt resides at [facility] lidocaine 10 mg/mL (1 %) injection solution RxNorm: 5744527 1 Milliliter(s) Inj daily Mix with rocephin 03/31/2017 04/06/2017 Inactive Pt resides at [facility] fentanyl 100 mcg/hr transdermal patch RxNorm: 874781 1 Patch TD Q72H 03/29/2017 04/26/2017 Inactive nystatin 100,000 unit/gram topical powder RxNorm: 538937 APPLY UNDER BREASTS TWICE DAILY FOR YEAST SKIN INFECTION AND APPLY TO UNDERARM AND ABDOMINAL FOLDS AND PERIAREA TWICE DAILY 03/29/2017 03/28/2017 Inactive 03/27/2017 9:12:50 AM nystatin 100,000 unit/gram topical powder RxNorm: 790701 APPLY UNDER BREASTS TWICE DAILY FOR YEAST SKIN INFECTION AND APPLY TO UNDERARM AND ABDOMINAL FOLDS AND PERIAREA TWICE DAILY 03/29/2017 09/14/2017 Inactive 03/29/2017 9:42:55 AM03/27/2017 9:12:50 AM hyoscyamine 0.125 mg disintegrating tablet RxNorm: 6429342 1-2 Tablet(s) PO Q8 as needed 03/08/2017 03/27/2017 Inactive fentanyl 25 mcg/hr transdermal patch RxNorm: 067989 1 Patch TD Q72H 03/02/2017 03/31/2017 Inactive hydrocodone 10 mg-acetaminophen 325 mg tablet RxNorm: 596280 1 Tablet(s) PO scheduled BID et Q6 hours as needed 02/17/2017 03/18/2017 Inactive fentanyl 100 mcg/hr transdermal patch RxNorm: 013545 1 Patch TD Q72H 02/17/2017 03/18/2017 Inactive Lexapro 10 mg tablet RxNorm: 865805 1 Tablet(s) PO daily 02/05/2017 04/14/2017 Inactive Lexapro 10 mg tablet RxNorm: 624190 1 Tablet(s) PO daily 02/05/2017 02/04/2017 Inactive fentanyl 25 mcg/hr transdermal patch RxNorm: 865903 1 Patch TD Q72H 02/04/2017 03/01/2017 Inactive cyanocobalamin (vit B-12) 1,000 mcg tablet RxNorm: 279204 1 Tablet(s) PO daily 01/18/2017 12/13/2017 Inactive hyoscyamine 0.125 mg disintegrating tablet RxNorm: 9449336 Tablet(s) 1-2 Tablet(s) PO Q8 as needed 01/18/2017 02/06/2017 Inactive baclofen 10 mg tablet RxNorm: 569425 TAKE 1 TABLET THREE TIMES DAILY VIA STOMACH TUBE 01/04/2017 02/17/2017 Inactive 01/04/2017 9:25:18 AM fentanyl 100 mcg/hr transdermal patch RxNorm: 904340 1 Patch TD Q72H 12/25/2016 01/23/2017 Inactive hydrochlorothiazide 25 mg tablet RxNorm: 257100 Tablet(s) GIVE 1 TABLET VIA PEG TUBE ONCE A DAY 12/14/2016 07/11/2017 Inactive fentanyl 100 mcg/hr transdermal patch RxNorm: 611980 1 Patch TD Q72H 11/25/2016 12/24/2016 Inactive hyoscyamine 0.125 mg disintegrating tablet RxNorm: 2830670 Tablet(s) 1-2 Tablet(s) PO Q8 as needed 11/25/2016 12/14/2016 Inactive nystatin 100,000 unit/gram topical powder RxNorm: 988988 APPLY UNDER BREASTS TWICE DAILY FOR YEAST SKIN INFECTION AND APPLY TO UNDERARM AND ABDOMINAL FOLDS AND PERIAREA TWICE DAILY 11/24/2016 01/22/2017 Inactive 11/24/2016 9:34:02 AM hydrocodone 10 mg-acetaminophen 325 mg tablet RxNorm: 316551 1 Tablet(s) PO scheduled BID et Q6 hours as needed 11/02/2016 12/01/2016 Inactive cyanocobalamin (vit B-12) 1,000 mcg tablet RxNorm: 668871 1 Tablet(s) PO daily 11/02/2016 01/17/2017 Inactive hyoscyamine 0.125 mg disintegrating tablet RxNorm: 2764856 1-2 Tablet(s) PO Q8 as needed 10/19/2016 11/24/2016 Inactive fentanyl 100 mcg/hr transdermal patch RxNorm: 088641 1 Patch TD Q72H 10/13/2016 11/11/2016 Inactive hydrocodone 10 mg-acetaminophen 325 mg tablet RxNorm: 999920 1 Tablet(s) PO scheduled BID et Q6 hours as needed 10/05/2016 11/01/2016 Inactive baclofen 10 mg tablet RxNorm: 201365 TAKE 1 TABLET THREE TIMES DAILY VIA STOMACH TUBE 10/01/2016 11/14/2016 Inactive 10/01/2016 9:24:37 AM carvedilol 3.125 mg tablet RxNorm: 395150 GIVE 1 TABLET VIA PEG TUBE 2 TIMES A DAY 09/30/2016 12/28/2016 Inactive Generic For:COREG 3.125MG 09/30/2016 1:12:28 PM09/25/2016 9:06:11 AM Probiotic Blend 2 million cell-50 mg capsule RxNorm: 1 Capsule(s) PO BID 09/17/2016 09/23/2016 Inactive Keflex 500 mg capsule RxNorm: 822184 1 Capsule(s) PO TID 09/17/2016 09/23/2016 Inactive hyoscyamine 0.125 mg/5 mL oral elixir RxNorm: 5684698 5 Milliliter(s) PO TID 09/08/2016 09/17/2016 Inactive hyoscyamine 0.125 mg/5 mL oral elixir RxNorm: 4803993 5 Milliliter(s) PO TID 09/08/2016 09/07/2016 Inactive hyoscyamine 0.125 mg disintegrating tablet RxNorm: 0237404 1-2 Tablet(s) PO Q8 as needed 09/07/2016 10/18/2016 Inactive fentanyl 100 mcg/hr transdermal patch RxNorm: 593980 1 Patch TD Q72H 09/01/2016 09/30/2016 Inactive ranitidine 150 mg tablet RxNorm: 322293 1 Tablet(s) PO BID 08/25/2016 No Stop Date Active hydrocodone 10 mg-acetaminophen 325 mg tablet RxNorm: 048672 1 Tablet(s) PO scheduled BID et Q6 hours as needed 08/24/2016 09/22/2016 Inactive cyanocobalamin (vit B-12) 1,000 mcg tablet RxNorm: 399272 1 Tablet(s) PO daily 08/12/2016 11/01/2016 Inactive cyanocobalamin (vit B-12) 1,000 mcg tablet RxNorm: 675200 1 Tablet(s) PO daily 08/12/2016 08/11/2016 Inactive hydrocodone 10 mg-acetaminophen 325 mg tablet RxNorm: 788624 1-2 Tablet(s) PO Q6 as needed 08/03/2016 08/17/2016 Inactive fentanyl 100 mcg/hr transdermal patch RxNorm: 432921 1 Patch TD Q72H 08/03/2016 08/31/2016 Inactive nystatin 100,000 unit/gram topical powder RxNorm: 400212 APPLY UNDER BREASTS TWICE DAILY FOR YEAST SKIN INFECTION AND APPLY TO UNDERARM AND ABDOMINAL FOLDS AND PERIAREA TWICE DAILY 07/17/2016 09/14/2016 Inactive 07/17/2016 3:56:54 PM fentanyl 100 mcg/hr transdermal patch RxNorm: 329939 1 Patch TD Q72H 07/15/2016 08/02/2016 Inactive lisinopril 20 mg tablet RxNorm: 784382 1 Tablet(s) PO daily 07/02/2016 03/28/2017 Inactive hydrocodone 10 mg-acetaminophen 325 mg tablet RxNorm: 147376 1-2 Tablet(s) PO Q6 as needed 07/01/2016 07/15/2016 Inactive Xarelto 20 mg tablet RxNorm: 0171367 Tablet(s) TAKE 1 TABLET VIA PEG TUBE AT BEDTIME 06/19/2016 04/14/2017 Inactive fentanyl 100 mcg/hr transdermal patch RxNorm: 320935 1 Patch TD Q72H 06/17/2016 07/14/2016 Inactive nystatin 100,000 unit/gram topical powder RxNorm: 457066 APPLY TO UNDER BREASTS TWICE DAILY FOR YEAST SKIN INFECTION AND APPLY TO UNDERARM AND ABDOMINAL FOLDS AND PERIAREA TWICE DAILY 06/15/2016 07/16/2016 Inactive Generic For:MYCOSTATIN 100,000 UNITS/GM PW 06/15/2016 12:28:26 PM fentanyl 100 mcg/hr transdermal patch RxNorm: 877504 1 Patch TD Q72H 06/05/2016 06/16/2016 Inactive hydrocodone 10 mg-acetaminophen 325 mg tablet RxNorm: 481448 1-2 Tablet(s) PO Q6 as needed 06/02/2016 06/16/2016 Inactive Probiotic Blend 2 million cell-50 mg capsule RxNorm: 1 Capsule(s) PO BID 05/13/2016 05/19/2016 Inactive nitrofurantoin 100 mg capsule RxNorm: 704389 1 Capsule(s) PO BID 05/13/2016 05/19/2016 Inactive nitrofurantoin 100 mg capsule RxNorm: 510361 1 Capsule(s) PO BID 05/13/2016 05/12/2016 Inactive fentanyl 75 mcg/hr transdermal patch RxNorm: 997623 1 Patch TD Q72H 05/13/2016 06/04/2016 Inactive Keflex 500 mg capsule RxNorm: 348144 1 Capsule(s) PO TID 05/07/2016 05/13/2016 Inactive Patient at [facility] Keflex 500 mg capsule RxNorm: 168499 1 Capsule(s) PO TID 05/07/2016 05/06/2016 Inactive hydrocodone 10 mg-acetaminophen 325 mg tablet RxNorm: 704775 1-2 Tablet(s) PO Q6 as needed 05/04/2016 06/01/2016 Inactive hydrochlorothiazide 25 mg tablet RxNorm: 923359 Tablet(s) GIVE 1 TABLET VIA PEG TUBE ONCE A DAY 04/29/2016 11/24/2016 Inactive hydrochlorothiazide 25 mg tablet RxNorm: 299268 GIVE 1 TABLET VIA PEG TUBE ONCE A DAY 04/22/2016 04/28/2016 Inactive Generic For:HYDRODIURIL 25 MG TABLET refill request fentanyl 75 mcg/hr transdermal patch RxNorm: 456479 1 Patch TD Q72H 04/17/2016 05/12/2016 Inactive Xarelto 20 mg tablet RxNorm: 0174949 TAKE 1 TABLET VIA PEG TUBE AT BEDTIME 04/16/2016 06/14/2016 Inactive 04/16/2016 9:08:52 AM citalopram 40 mg tablet RxNorm: 224033 1 Tablet(s) PO daily 04/02/2016 02/25/2017 Inactive citalopram 40 mg tablet RxNorm: 574828 1 Tablet(s) PO daily 03/27/2016 04/01/2016 Inactive hydrocodone 10 mg-acetaminophen 325 mg tablet RxNorm: 240983 1-2 Tablet(s) PO Q6 as needed 03/27/2016 04/25/2016 Inactive fentanyl 75 mcg/hr transdermal patch RxNorm: 782319 1 Patch TD Q72H 03/18/2016 04/16/2016 Inactive hydrocodone 10 mg-acetaminophen 325 mg tablet RxNorm: 967225 1-2 Tablet(s) PO Q6 as needed 03/11/2016 03/26/2016 Inactive citalopram 40 mg tablet RxNorm: 926306 1 Tablet(s) PO daily 03/04/2016 03/26/2016 Inactive Levemir FlexTouch U-100 Insulin 100 unit/mL (3 mL) subcutaneous pen RxNorm: 905959 20 Unit(s) SQ BID 03/02/2016 09/27/2016 Inactive lisinopril 20 mg tablet RxNorm: 505997 1 Tablet(s) PO daily 02/25/2016 07/01/2016 Inactive Ativan 0.5 mg tablet RxNorm: 956360 1 Tablet(s) PO Q4H as needed 02/18/2016 04/14/2017 Inactive Xarelto 20 mg tablet RxNorm: 4528781 TAKE 1 TABLET VIA PEG TUBE AT BEDTIME 02/12/2016 04/11/2016 Inactive 02/12/2016 9:08:22 AM hydrocodone 10 mg-acetaminophen 325 mg tablet RxNorm: 237852 1-2 Tablet(s) PO Q6 as needed 02/12/2016 03/10/2016 Inactive fentanyl 75 mcg/hr transdermal patch RxNorm: 419449 1 Patch TD Q72H 02/11/2016 03/11/2016 Inactive citalopram 20 mg tablet RxNorm: 933443 1 Tablet(s) PO daily 01/28/2016 03/03/2016 Inactive fentanyl 75 mcg/hr transdermal patch RxNorm: 264146 1 TD Q72H 01/17/2016 02/10/2016 Inactive hydrocodone 10 mg-acetaminophen 325 mg tablet RxNorm: 650391 1-2 Tablet(s) PO Q6 as needed 01/07/2016 02/05/2016 Inactive fentanyl 50 mcg/hr transdermal patch RxNorm: 315323 1 TD Q72H 01/01/2016 01/16/2016 Inactive fentanyl 50 mcg/hr transdermal patch RxNorm: 868585 1 TD q 3 days 12/26/2015 12/31/2015 Inactive Xarelto 20 mg tablet RxNorm: 0772885 TAKE 1 TABLET VIA PEG TUBE AT BEDTIME 12/17/2015 02/11/2016 Inactive 12/16/2015 3:27:57 PM12/14/2015 9:45:17 AM hydrocodone 10 mg-acetaminophen 325 mg tablet RxNorm: 162154 1-2 Tablet(s) PO Q6 as needed 12/06/2015 01/04/2016 Inactive fentanyl 50 mcg/hr transdermal patch RxNorm: 017212 1 TD q 3 days 12/06/2015 12/25/2015 Inactive fentanyl 25 mcg/hr transdermal patch RxNorm: 003417 1 TD q 3 days 11/18/2015 12/05/2015 Inactive Zithromax Z-Eliu 250 mg tablet RxNorm: 288363 1 Tablet(s) PO UD 10/09/2015 02/26/2016 Inactive z pack as directed- please write out instructions- pt at [facility] nystatin 100,000 unit/gram topical powder RxNorm: 352228 APPLY TO UNDER BREASTS TWICE DAILY FOR YEAST SKIN INFECTION AND APPLY TO UNDERARM AND ABDOMINAL FOLDS AND PERIAREA TWICE DAILY 10/07/2015 12/05/2015 Inactive Generic For:MYCOSTATIN 100,000 UNITS/GM PW 10/05/2015 12:07:35 PM fentanyl 25 mcg/hr transdermal patch RxNorm: 765797 1 TD q 3 days 10/03/2015 11/01/2015 Inactive fentanyl 25 mcg/hr transdermal patch RxNorm: 938694 1 TD q 3 days 09/27/2015 10/02/2015 Inactive fentanyl 25 mcg/hr transdermal patch RxNorm: 639346 1 TD q 3 days 09/17/2015 09/26/2015 Inactive fentanyl 25 mcg/hr transdermal patch RxNorm: 617621 1 TD q 3 days 08/30/2015 09/16/2015 Inactive hydrocodone 5 mg-acetaminophen 325 mg tablet RxNorm: 573827 1 Tablet(s) PO Q6 as needed 08/30/2015 09/28/2015 Inactive Diflucan 100 mg tablet RxNorm: 799576 1 Tablet(s) Miscellaneous per peg daily 07/29/2015 08/04/2015 Inactive fentanyl 25 mcg/hr transdermal patch RxNorm: 891809 1 TD q 3 days 07/18/2015 08/29/2015 Inactive hydrocodone 5 mg-acetaminophen 325 mg tablet RxNorm: 808867 1 Tablet(s) PO Q6 as needed 07/18/2015 08/29/2015 Inactive Diflucan 100 mg tablet RxNorm: 466683 1 Tablet(s) Miscellaneous per peg daily 06/17/2015 06/23/2015 Inactive Senna-S 8.6 mg-50 mg tablet RxNorm: 345892 1 Tablet(s) PO daily as needed constipation No Start Date Active Dulcolax (bisacodyl) 10 mg rectal suppository RxNorm: 604749 1 Suppository RTL daily as needed constipation No Start Date Active polyethylene glycol 3350 17 gram/dose oral powder RxNorm: 013210 17 Gram(s) PO daily as needed constipation No Start Date Active baclofen 10 mg tablet RxNorm: 127655 1 Tablet(s) PO TID No Start Date 09/30/2016 Inactive Ativan 0.5 mg tablet RxNorm: 504366 1 Tablet(s) PO Q4H as needed No Start Date 02/17/2016 Inactive ranitidine 150 mg tablet RxNorm: 494694 1 Tablet(s) PO daily No Start Date 08/24/2016 Inactive carvedilol 3.125 mg tablet RxNorm: 924267 1 Tablet(s) PO daily No Start Date 09/29/2016 Inactive citalopram 40 mg tablet RxNorm: 839755 1 Tablet(s) PO daily No Start Date 01/27/2016 Inactive Probiotic Blend oral RxNorm: oral No Start Date 05/12/2016 Inactive hydrochlorothiazide 25 mg tablet RxNorm: 890168 1 Tablet(s) PO daily No Start Date 04/21/2016 Inactive albuterol sulfate concentrate 5 mg/mL(0.5 %) solution for nebulization RxNorm: 041822 1 Vial INH daily as needed congestion No Start Date 03/17/2018 Inactive Levemir FlexTouch 100 unit/mL (3 mL) subcutaneous insulin pen RxNorm: 692772 10 Unit(s) SQ BID No Start Date 03/01/2016 Inactive Zithromax Z-Eliu 250 mg tablet RxNorm: 889322 1 Tablet(s) PO UD No Start Date 10/08/2015 Inactive z pack as directed- please write out instructions- pt at [facility] nystatin 100,000 unit/gram topical powder RxNorm: 209405 Gram(s) TOP BID as needed No Start Date 10/06/2015 Inactive pravastatin 40 mg tablet RxNorm: 606215 Tablet(s) PO daily No Start Date 04/14/2017 Inactive lorazepam 0.5 mg tablet RxNorm: 948018 1/2 Tablet(s) PO BID No Start Date 05/02/2017 Inactive Xarelto 20 mg tablet RxNorm: 5294162 1 Tablet(s) PO daily No Start Date 12/16/2015 Inactive fentanyl 25 mcg/hr transdermal patch RxNorm: 868018 1 TD q 3 days No Start Date 07/17/2015 Inactive lisinopril 20 mg tablet RxNorm: 653520 1 Tablet(s) PO daily No Start Date 02/24/2016 Inactive hydrocodone 5 mg-acetaminophen 325 mg tablet RxNorm: 444523 1 Tablet(s) PO Q6 as needed No Start Date 07/17/2015 Inactive citalopram 40 mg tablet RxNorm: 698204 1 Tablet(s) PO daily No Start Date 03/03/2016 Inactive hyoscyamine 0.125 mg disintegrating tablet RxNorm: 4658997 1-2 Tablet(s) PO Q8 as needed No [...] 30.7 pg 02/14/2018 Cbc With Differential Ord2 Hayes% 7.4 % 02/14/2018 Cbc With Differential Ord2 [...] 2.14 K/ul 02/14/2018 Cbc With Differential Ord2 Hayes ABS# 0.5 K/ul 02/14/2018 Cbc With Differential Ord2 Eos ABS# 0.3 K/ul 02/14/2018 Cbc With Differential Ord2 Baso ABS# 0.0 K/ul 02/14/2018 Comp Metabolic Hub711 NA 142 mEq/L 02/14/2018 Comp Metabolic Ryl583 K 4.5 mEq/L 02/14/2018 Comp Metabolic Sjf144 CL 97 mEq/L 02/14/2018 Comp Metabolic Vdx979 CO2 41.0 mEq/L 02/14/2018 Comp Metabolic Qtx663 ANION GAP 9 02/14/2018 Comp Metabolic Mek568 GLUCOSE 111 mg/dL 02/14/2018 Comp Metabolic Pgu229 Creat 0.6 mg/dL 02/14/2018 Comp Metabolic Ind019 eGFR 108 ml/min/1.73m2 02/14/2018 Comp Metabolic Fiz917 BUN 32 mg/dL 02/14/2018 Comp Metabolic Xgq292 B/C Ratio 54.2 Ratio 02/14/2018 Comp Metabolic Zyy497 CALCIUM 8.9 mg/dL 02/14/2018 Comp Metabolic Dbm000 ALK PHOS 81 U/L 02/14/2018 Comp Metabolic Kio943 AST(SGOT) 14 U/L 02/14/2018 Comp Metabolic Cwv555 ALT(SGPT) 11 U/L 02/14/2018 Comp Metabolic Uvg553 BILI T 0.3 mg/dL 02/14/2018 Comp Metabolic Ecn812 ALBUMIN 3.4 g/dL 02/14/2018 Comp Metabolic Tqi357 TPRO 6.3 g/dL 02/14/2018 Comp Metabolic Aww860 GLOB 2.9 g/dL 02/14/2018 Comp Metabolic Zmj886 A/G Ratio 1.2 Ratio 02/14/2018 Comp Metabolic Nll683 Osmo 291 mOsmo 02/14/2018 %Hba1C Buc452 % HbA1c 39189- 6 5.5 % 02/14/2018 %Hba1C Nin428 Gluc Ave 111 mg/dL 02/14/2018 Prealbumin 776250 PREALBUMIN 27 mg/dL 11/24/2017 %Hba1C Vqa845 % HbA1c 20256- 6 5.5 % 11/04/2017 %Hba1C Elw909 Gluc Ave 111 mg/dL 11/04/2017 Culture Urine [id number] URINE CULTURE SEE NOTES 10/04/2017 Culture Urine [id number] Continued Results 10/04/2017 Urine Culture Ucult Complete [...] Ord28 U-Com Culture to follow 10/01/2017 B12 Xty253 B12 >1500.00 pg/ml 02/19/2017 Cbc With Differential [...] 31.5 pg 02/02/2017 Cbc With Differential Ord2 Hayes% 8.3 % 02/02/2017 Cbc With Differential Ord2 [...] 2.28 K/ul 02/02/2017 Cbc With Differential Ord2 Hayes ABS# 0.6 K/ul 02/02/2017 Cbc With Differential Ord2 Eos ABS# 0.4 K/ul 02/02/2017 Cbc With Differential Ord2 Baso ABS# 0.0 K/ul 02/02/2017 %Hba1C Bji826 % HbA1c 02459- 6 5.2 % 02/02/2017 %Hba1C Zgr275 Gluc Ave 103 mg/dL 02/02/2017 Comp Metabolic Mst704 NA 138 mEq/L 02/02/2017 Comp Metabolic Nyr835 K 4.5 mEq/L 02/02/2017 Comp Metabolic Gqq949 CL 98 mEq/L 02/02/2017 Comp Metabolic Day699 CO2 37.0 mEq/L 02/02/2017 Comp Metabolic Dlc272 ANION GAP 8 02/02/2017 Comp Metabolic Kxx341 GLUCOSE 94 mg/dL 02/02/2017 Comp Metabolic Tut741 Creat 0.7 mg/dL 02/02/2017 Comp Metabolic Jmh201 eGFR 88 ml/min/1.73m2 02/02/2017 Comp Metabolic Xxn999 BUN 36 mg/dL 02/02/2017 Comp Metabolic Gib294 B/C Ratio 50.7 Ratio 02/02/2017 Comp Metabolic Yie595 CALCIUM 9.0 mg/dL 02/02/2017 Comp Metabolic Qjk574 ALK PHOS 78 U/L 02/02/2017 Comp Metabolic Kck578 AST(SGOT) 22 U/L 02/02/2017 Comp Metabolic Ihx016 ALT(SGPT) 28 U/L 02/02/2017 Comp Metabolic Eet007 BILI T 0.3 mg/dL 02/02/2017 Comp Metabolic Qgf995 ALBUMIN 3.3 g/dL 02/02/2017 Comp Metabolic Pfg220 TPRO 5.9 g/dL 02/02/2017 Comp Metabolic Wkw431 GLOB 2.6 g/dL 02/02/2017 Comp Metabolic Tyz957 A/G Ratio 1.3 Ratio 02/02/2017 Comp Metabolic Wfu939 Osmo 284 mOsmo 02/02/2017 %Hba1C Vbf768 % HbA1c 19054- 6 5.0 % 10/29/2016 %Hba1C Ito175 Gluc Ave 97 mg/dL 10/29/2016 Culture Urine [id number] URINE CULTURE SEE NOTES 09/21/2016 Culture Urine [id number] Continued Results 09/21/2016 Urine Culture Ucult Complete [...] 32.4 pg 07/30/2016 Cbc With Differential Ord2 Hayes% 7.2 % 07/30/2016 Cbc With Differential Ord2 [...] 2.69 K/ul 07/30/2016 Cbc With Differential Ord2 Hayes ABS# 0.5 K/ul 07/30/2016 Cbc With Differential Ord2 Eos ABS# 0.5 K/ul 07/30/2016 Cbc With Differential Ord2 Baso ABS# 0.0 K/ul 07/30/2016 Comp Metabolic Qzr479 NA 141 mEq/L 07/30/2016 Comp Metabolic Ask078 K 4.3 mEq/L 07/30/2016 Comp Metabolic Wck388 CL 100 mEq/L 07/30/2016 Comp Metabolic Uhz621 CO2 33.0 mEq/L 07/30/2016 Comp Metabolic Umk461 ANION GAP 12 07/30/2016 Comp Metabolic Osb629 GLUCOSE 64 mg/dL 07/30/2016 Comp Metabolic Ckj164 Creat 0.5 mg/dL 07/30/2016 Comp Metabolic Fbo594 eGFR 126 ml/min/1.73m2 07/30/2016 Comp Metabolic Eoo516 BUN 25 mg/dL 07/30/2016 Comp Metabolic Vya526 B/C Ratio 48.1 Ratio 07/30/2016 Comp Metabolic Bhc598 CALCIUM 8.9 mg/dL 07/30/2016 Comp Metabolic Bdz575 ALK PHOS 90 U/L 07/30/2016 Comp Metabolic Jha833 AST(SGOT) 22 U/L 07/30/2016 Comp Metabolic Eho668 ALT(SGPT) 36 U/L 07/30/2016 Comp Metabolic Egp636 BILI T 0.3 mg/dL 07/30/2016 Comp Metabolic Eyw083 ALBUMIN 3.4 g/dL 07/30/2016 Comp Metabolic Wse701 TPRO 6.0 g/dL 07/30/2016 Comp Metabolic Yht020 GLOB 2.7 g/dL 07/30/2016 Comp Metabolic New103 A/G Ratio 1.3 Ratio 07/30/2016 Comp Metabolic Bha211 Osmo 284 mOsmo 07/30/2016 A1C Frequency Ycy359 A1CF 80139-9 Last A1C performed at [facility] on: 05-12-2016 07/30/2016 %Hba1C Lvm465 % HbA1c 82610- 6 5.2 % 05/12/2016 %Hba1C Gxj957 Gluc Ave 103 mg/dL 05/12/2016 Culture Urine [id number] URINE CULTURE SEE NOTES 05/11/2016 Urine Culture [...] U-Com Culture to follow 05/06/2016 Culture Urine [id number] URINE CULTURE SEE NOTES 03/17/2016 Culture Urine [id number] Continued Results 03/17/2016 Urine Culture Ucult Complete [...] 32.0 pg 02/11/2016 Cbc With Differential Ord2 Hayes% 9.1 % 02/11/2016 Cbc With Differential Ord2 [...] 2.59 K/ul 02/11/2016 Cbc With Differential Ord2 Hayes ABS# 0.6 K/ul 02/11/2016 Cbc With Differential Ord2 Eos ABS# 0.3 K/ul 02/11/2016 Cbc With Differential Ord2 Baso ABS# 0.0 K/ul 02/11/2016 Comp Metabolic Wrn168 NA 137 mEq/L 02/11/2016 Comp Metabolic Rlf658 K 4.4 mEq/L 02/11/2016 Comp Metabolic Ixn487 CL 100 mEq/L 02/11/2016 Comp Metabolic Quu454 CO2 25.0 mEq/L 02/11/2016 Comp Metabolic Juq185 ANION GAP 16 02/11/2016 Comp Metabolic Lkp198 GLUCOSE 99 mg/dL 02/11/2016 Comp Metabolic Qnd817 Creat 0.6 mg/dL 02/11/2016 Comp Metabolic Oyv695 eGFR 99 ml/min/1.73m2 02/11/2016 Comp Metabolic Sah723 BUN 27 mg/dL 02/11/2016 Comp Metabolic Zug896 B/C Ratio 42.2 Ratio 02/11/2016 Comp Metabolic Lgh181 CALCIUM 9.2 mg/dL 02/11/2016 Comp Metabolic Pbl966 ALK PHOS 74 U/L 02/11/2016 Comp Metabolic Dmj426 AST(SGOT) 24 U/L 02/11/2016 Comp Metabolic Odv642 ALT(SGPT) 26 U/L 02/11/2016 Comp Metabolic Cpd786 BILI T 0.5 mg/dL 02/11/2016 Comp Metabolic Tom133 ALBUMIN 3.5 g/dL 02/11/2016 Comp Metabolic Nxn256 TPRO 6.2 g/dL 02/11/2016 Comp Metabolic Xzg068 GLOB 2.7 g/dL 02/11/2016 Comp Metabolic Myd994 A/G Ratio 1.3 Ratio 02/11/2016 Comp Metabolic Avp910 Osmo 279 mOsmo 02/11/2016 Review of Systems [...] 1: 128/86 Code: 8480-6 BMI: 31.4 Code: 78157-3 Heart Rate 1: 72 bpm Height: 5'1" Weight: 166 lbs 06/17/2015 Blood Pressure 1: 110/78 Code: 8480-6 BMI: 33.3 Code: 26070-3 Heart Rate 1: 74 bpm Height: 5'1" [...] Present Encounters Encounter Performer Location Codes Date ([id number]) [id number] EST. PATIENT, LEVEL IV Diagnosis: Cough[ICD10: R05] Diagnosis: Pneumonia, unspecified organism[ICD10: J18.9] Diagnosis: Pain in right knee[ICD10: M25.561] Carlyn Everett MD, [facility] CPT- 4: 70432 03/18/2018 ([id number]) 41057 EST. PATIENT, LEVEL IV Diagnosis: Type 2 diabetes mellitus without complications[ICD10: E11.9] Diagnosis: Essential (primary) hypertension[ICD10: I10] Diagnosis: Chronic pain syndrome[ICD10: G89.4] Carlyn Everett MD, [facility] CPT-4: 24819 01/07/2018 ([id number]) 87657 EST. PATIENT, LEVEL IV Diagnosis: Essential (primary) hypertension[ICD10: I10] Diagnosis: Type 2 diabetes mellitus without complications[ICD10: E11.9] Carlyn Everett MD, [facility] CPT-4: 49517 2017 ([id number]) 95867 EST. PATIENT, LEVEL IV Diagnosis: Type 2 diabetes mellitus with hyperglycemia[ICD10: E11.65] Diagnosis: Essential (primary) hypertension[ICD10: I10] Diagnosis: Pain in left shoulder[ICD10: M25.512] Diagnosis: Pain in right shoulder[ICD10: M25.511] Diagnosis: Pain in left knee[ICD10: M25.562] Diagnosis: Pain in right knee[ICD10: M25.561] Vonda Everett MD, [facility] CPT- 4: 14312 09/09/2017 [id number] EST. PATIENT, LEVEL IV Diagnosis: Essential (primary) hypertension[ICD10: I10] Diagnosis: Type 2 diabetes mellitus with hyperglycemia[ICD10: E11.65] Diagnosis: Low back pain[ICD10: M54.5] Sunitha Everett MD, [facility] CPT-4: 42370 06/08/2017 ([id number]) 75267 EST. PATIENT, LEVEL IV Diagnosis: Essential (primary) hypertension[ICD10: I10] Diagnosis: Type 2 diabetes mellitus with hyperglycemia[ICD10: E11.65] Diagnosis: Low back pain[ICD10: M54.5] Sunitha Everett MD, [facility] CPT-4: 89336 04/15/2017 ([id number]) 37590 EST. PATIENT, LEVEL IV Diagnosis: Essential (primary) hypertension[ICD10: I10] Diagnosis: Type 2 diabetes mellitus with hyperglycemia[ICD10: E11.65] Diagnosis: Low back pain[ICD10: M54.5] Vonda Everett MD, [facility] CPT-4: 57369 02/16/2017 70402 EST. 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 A chest xray has been ordered as have antibiotics. The pt is aware of the diagnosis and the need for acute treatment of this illness. Right knee pain -xray knee-rx for voltaren gel 03/18/2018 Appointment: Carlyn Higginbotham WPtel: [phone] [place] (30 min) Complex 03/18/2018 Patient Education: Patient Medication Summary Completed 03/18/2018 Appointment: Carlyn Higginbotham WPtel: [phone] [place] (30 min) Complex 03/17/2018 Appointment: Carlyn Higginbotham WPtel: [phone] [place] (15 min) Moderate 03/10/2018 Appointment: Carlyn Higginbotham WPtel: [phone] [place] (15 min) Moderate 02/08/2018 Visit Plan: DM -decrease levemir to 4 units daily -monitor blood sugars XZN-wkfppjbbtn-ex changes Chronic pain -well controlled with fentanyl patch -no changes at this time 01/07/2018 Appointment: Carlyn Higginbotham WPtel: [phone] [place] (15 min) Moderate 01/07/2018 Patient [...] HS 2017 Appointment: Carlyn Higginbotham WPtel: [phone] [phone] [place] (15 min) Moderate 2017 Patient [...] 175mcg. 09/09/2017 Appointment: Vonda Everett WPtel: [phone] [facility] [place] (15 min) Moderate 09/09/2017 Patient Education: [...] and PRN pain medications - will have [facility] fax over PRN medication administration record. 06/08/2017 [phone] ([facility]) Complex 06/08/2017 Patient Education: [...] over-medication. 04/15/2017 Appointment: [phone] (30 min) Complex 04/15/2017 Patient Education: Patient [...] refilled fentanyl and hydrocodone today. 02/16/2017 [phone] ([facility] Moderate 02/16/2017 Patient [...] or concerns. 11/09/2016 App[facility]ment: [phone] (30 min) Complex 11/09/2016 Patient Education: Patient Medication Summary Completed 11/09/2016 Care Plan: Referral Order SNOMED-CT : [id number] Pending 11/09/2016 Patient Education: Patient Medication Summary [...] Follow up weight in 1 month Neck zion-fiqllziujvj-Ofsn PT focus neck/upper body Right earache-cerumen removed with water pick today in the office 07/18/2015 Appointment: (30 min) Complex 07/18/2015 Patient Education: Patient Medication Summary Completed 07/18/2015 Patient Education: Obesity Completed 07/18/2015 Patient Education: .Cervicalgia Neck Pain Completed 07/18/2015 Referral: [facility] WPtel: [phone] Referral Completed 06/25/2015 Visit Plan: [...] liver response to medications. [facility] for post stroke - left sided weakness, neck stiffness, upper extremity weakness Diabetes Mellitus - controlled - per family report - check labs this week, get report from and [facility]. I spent over an hour with the patient in direct contact. 06/17/2015 Appointment: Vonda Everett WPtel: [phone] New Patient 06/17/2015 Patient Education: Patient Medication Summary Completed 06/17/2015 Patient Education: Obesity Completed 06/17/2015 Patient Education: Hypertension Completed 06/17/2015 Care Plan: Referral Order SNOMED-CT : [id number] Ordered 06/17/2015 Referral: Jorge Luis Carroll Referral Initiated Referral: [facility] WPtel: [phone] Referral Appointment Requested Instructions Comment [...] this week, get report from and [facility]. I spent over an hour with [...] Follow up weight in 1 month Neck frwh-xazhqcgzznu-Quik PT focus neck/upper body Right earache-cerumen removed [...] to 4 units daily -monitor blood sugars STV-xyvzhrhjhs-ho changes Chronic pain -well controlled with fentanyl [...] and PRN pain medications - will have [facility] fax over PRN medication administration record. . [...]
--- OUTSIDE RECORDS SUMMARY | 2018-08-09 11:54 | XMS REPORT | CCD ---
Author Author [facility] Organization [facility] Address [address] [place] [address] Phone Care Team Providers Care Automation Architect Name Role Phone PP Unavailable CCM Unavailable Summary Purpose Interface Exchange Insurance Providers Payer name Policy type / Coverage type Covered libertarian ID Effective Begin Date Effective End Date WPS Medicare Part B Medicare Part B [id number] Unknown Unknown [employer] Medicare Part B [id number] Unknown Unknown Family history Father Diagnosis Age At Onset Arthritis Unknown Hypertension Unknown Mother Diagnosis Age At Onset Diabetes mellitus Type 2 Unknown Depression Unknown Arthritis Unknown Stroke Unknown Hypertension Unknown Sister Diagnosis Age At Onset Colon cancer Unknown Social History Social History Element Codes Description Effective Dates Marital status Unknown Maurice 01/07/2018 Living arrangements Unknown Group Home [facility] 04/15/2017 Number of children Unknown 3 06/17/2015 Employment Unknown Retired 06/17/[address]: 1942668 Quit over 10 years ago 15+ 06/17/[address]: 614181727 Never drinks alcohol 06/17/2015 Allergies, Adverse Reactions, [...] Instructions Duragesic 75 mcg/hr transdermal patch RxNorm: 638428 1 Patch TD Q72H 03/31/2018 04/29/2018 Active fentanyl 100 mcg/hr transdermal patch RxNorm: 257310 1 Patch TD Q72H 03/31/2018 04/29/2018 Active carvedilol 3.125 mg tablet RxNorm: 224151 Tablet(s) GIVE 1 TABLET VIA PEG TUBE 2 TIMES A DAY 03/30/2018 06/27/2018 Active Generic For:COREG 3.125MG 10/22/2017 9:23:30 AM Voltaren 1 % topical gel RxNorm: 238253 APPLY 4 GRAMS TO RIGHT KNEE FOUR TIMES DAILY 03/30/2018 04/22/2018 Active Generic For:VOLTAREN GEL 1% 03/30/2018 11:14:57 AM hydrocodone 10 mg-acetaminophen 325 mg tablet RxNorm: 996090 2 Tablet(s) PO scheduled TID 03/23/2018 04/21/2018 Active Not to exceed 3gm/24hr acetaminophen Zithromax Z-Eliu 250 mg tablet RxNorm: 102659 Tablet(s) PO 03/18/2018 No Stop Date Active albuterol sulfate concentrate 5 mg/mL(0.5 %) solution for nebulization RxNorm: 557282 1 Vial Milliliter(s) INH TID PRN as needed congestion 03/18/2018 No Stop Date Active cefdinir 300 mg capsule RxNorm: 308807 1 Capsule(s) PO BID 03/18/2018 03/24/2018 Inactive Voltaren 1 % topical gel RxNorm: 288991 4 Gram(s) TOP QID 03/18/2018 03/29/2018 Inactive hydrochlorothiazide 25 mg tablet RxNorm: 818604 GIVE 1 TABLET VIA PEG TUBE ONCE DAILY 03/11/2018 09/06/2018 Active Generic For:HYDRODIURIL 25 MG TABLET 03/11/2018 9:15:32 AM fentanyl 100 mcg/hr transdermal patch RxNorm: 152074 1 Patch TD Q72H 03/02/2018 03/30/2018 Inactive Duragesic 75 mcg/hr transdermal patch RxNorm: 218528 1 Patch TD Q72H 03/02/2018 03/30/2018 Inactive hydrocodone 10 mg-acetaminophen 325 mg tablet RxNorm: 129765 2 Tablet(s) PO scheduled TID 02/18/2018 03/22/2018 Inactive Not to exceed 3gm/24hr acetaminophen hyoscyamine 0.125 mg disintegrating tablet RxNorm: 4569004 Tablet(s) 1-2 Tablet(s) PO Q8 as needed 02/08/2018 No Stop Date Active fentanyl 100 mcg/hr transdermal patch RxNorm: 210842 1 Patch TD Q72H 02/04/2018 03/01/2018 Inactive hydrocodone 10 mg-acetaminophen 325 mg tablet RxNorm: 252867 2 Tablet(s) PO scheduled TID 02/04/2018 02/17/2018 Inactive Not to exceed 3gm/24hr acetaminophen Duragesic 75 mcg/hr transdermal patch RxNorm: 687650 1 Patch TD Q72H 02/04/2018 03/01/2018 Inactive Levemir FlexTouch U-100 Insulin 100 unit/mL (3 mL) subcutaneous pen RxNorm: 808767 4 Unit(s) SQ QHS 01/07/2018 No Stop Date Active Duragesic 75 mcg/hr transdermal patch RxNorm: 029688 1 Patch TD Q72H 01/07/2018 02/03/2018 Inactive fentanyl 100 mcg/hr transdermal patch RxNorm: 176427 1 Patch TD Q72H 01/07/2018 02/03/2018 Inactive hydrocodone 10 mg-acetaminophen 325 mg tablet RxNorm: 854600 2 Tablet(s) PO scheduled TID 01/05/2018 02/03/2018 Inactive Not to exceed 3gm/24hr acetaminophen hydrocodone 10 mg-acetaminophen 325 mg tablet RxNorm: 578950 2 Tablet(s) PO scheduled TID and 1 tab q 4 as needed 01/04/2018 01/04/2018 Inactive Not to exceed 3gm/24hr acetaminophen cyanocobalamin (vit B-12) 1,000 mcg tablet RxNorm: 873040 1 Tablet(s) PO daily 12/28/2017 11/22/2018 Active baclofen 10 mg tablet RxNorm: 993663 Tablet(s) TAKE 1 TABLET THREE TIMES DAILY VIA STOMACH TUBE 12/27/2017 05/25/2018 Active 10/07/2017 5:36:15 PM 10/07/2017 5:36:13 PM N O T I C E Last quantity doesn't match original quantity Duragesic 75 mcg/hr transdermal patch RxNorm: 478081 1 Patch TD Q72H 12/22/2017 01/06/2018 Inactive fentanyl 100 mcg/hr transdermal patch RxNorm: 173463 1 Patch TD Q72H 12/22/2017 01/06/2018 Inactive hydrocodone 10 mg-acetaminophen 325 mg tablet RxNorm: 489808 2 Tablet(s) PO scheduled TID and 1 tab q 4 as needed 12/20/2017 01/03/2018 Inactive Not to exceed 3gm/24hr acetaminophen hyoscyamine 0.125 mg disintegrating tablet RxNorm: 7648350 1-2 Tablet(s) PO Q8 as needed 12/14/2017 02/07/2018 Inactive Duragesic 75 mcg/hr transdermal patch RxNorm: 380895 1 Patch TD Q72H 12/06/2017 12/21/2017 Inactive fentanyl 100 mcg/hr transdermal patch RxNorm: 544114 1 Patch TD Q72H 12/06/2017 12/21/2017 Inactive hydrocodone 10 mg-acetaminophen 325 mg tablet RxNorm: 704166 2 Tablet(s) PO scheduled TID and 1 tab q 4 as needed 11/29/2017 12/19/2017 Inactive Not to exceed 3gm/24hr acetaminophen Duragesic 75 mcg/hr transdermal patch RxNorm: 253636 1 Patch TD Q72H 11/11/2017 12/05/2017 Inactive hydrocodone 10 mg-acetaminophen 325 mg tablet RxNorm: 885996 2 Tablet(s) PO scheduled TID and 1 tab q 4 as needed 11/09/2017 11/28/2017 Inactive Not to exceed 3gm/24hr acetaminophen Levemir FlexTouch U-100 Insulin 100 unit/mL (3 mL) subcutaneous pen RxNorm: 879059 8 Unit(s) SQ QHS 11/09/2017 01/06/2018 Inactive fentanyl 100 mcg/hr transdermal patch RxNorm: 790366 1 Patch TD Q72H 2017 12/05/2017 Inactive hyoscyamine 0.125 mg disintegrating tablet RxNorm: 9850878 1-2 Tablet(s) PO Q8 as needed 11/03/2017 12/13/2017 Inactive carvedilol 3.125 mg tablet RxNorm: 453601 GIVE 1 TABLET VIA PEG TUBE 2 TIMES A DAY 10/22/2017 01/19/2018 Inactive Generic For:COREG 3.125MG 10/22/2017 9:23:30 AM hydrocodone 10 mg-acetaminophen 325 mg tablet RxNorm: 644984 2 Tablet(s) PO scheduled TID and 1 tab q 4 as needed 10/22/2017 2017 Inactive Not to exceed 3gm/24hr acetaminophen fentanyl 100 mcg/hr transdermal patch RxNorm: 832906 1 Patch TD Q72H 10/20/2017 11/07/2017 Inactive Duragesic 75 mcg/hr transdermal patch RxNorm: 834033 1 Patch TD Q72H 10/20/2017 11/10/2017 Inactive lorazepam 0.5 mg tablet RxNorm: 204697 1 Tablet(s) PO BID and 1 tab q 6 hours prn 10/18/2017 No Stop Date Active baclofen 10 mg tablet RxNorm: 805103 TAKE 1 TABLET THREE TIMES DAILY VIA STOMACH TUBE 10/07/2017 12/26/2017 Inactive 10/07/2017 5:36:15 PM 10/07/2017 5:36:13 PM N O T I C E Last quantity doesn't match original quantity cranberry extract 500 mg tablet RxNorm: 5237579 1 Tablet(s) PO QAM 10/04/2017 01/31/2018 Inactive Cipro 500 mg tablet RxNorm: 562946 1 Tablet(s) PO BID 10/04/2017 10/03/2017 Inactive dc keflex hydrocodone 10 mg-acetaminophen 325 mg tablet RxNorm: 373551 2 Tablet(s) PO scheduled TID as needed 10/04/2017 10/21/2017 Inactive Not to exceed 3gm/24hr acetaminophen cranberry extract 500 mg tablet RxNorm: 4879973 1 Tablet(s) PO QAM 10/04/2017 10/03/2017 Inactive Cipro 500 mg tablet RxNorm: 348603 1 Tablet(s) PO BID 10/04/2017 10/10/2017 Inactive dc keflex Duragesic 75 mcg/hr transdermal patch RxNorm: 702058 1 Patch TD Q72H 09/20/2017 10/19/2017 Inactive fentanyl 100 mcg/hr transdermal patch RxNorm: 847218 1 Patch TD Q72H 09/20/2017 10/19/2017 Inactive hyoscyamine 0.125 mg disintegrating tablet RxNorm: 3601080 1 Tablet(s) PO TID and 1 Tablet Q4H prn increased secretions 09/15/2017 11/02/2017 Inactive hydrocodone 10 mg-acetaminophen 325 mg tablet RxNorm: 238414 2 Tablet(s) PO scheduled TID and 1-2 Tabs Q4H PRN pain 09/15/2017 10/03/2017 Inactive Not to exceed 3gm/24hr acetaminophen lorazepam 0.5 mg tablet RxNorm: 268522 1 Tablet(s) PO BID 09/15/2017 10/17/2017 Inactive Lexapro 10 mg tablet RxNorm: 897766 1 Tablet(s) PO daily 09/10/2017 09/14/2017 Inactive lisinopril 10 mg tablet RxNorm: 950422 1 Tablet(s) PO daily 09/09/2017 06/05/2018 Active Levemir FlexTouch U-100 Insulin 100 unit/mL (3 mL) subcutaneous pen RxNorm: 302225 10 Unit(s) daily 09/09/2017 09/15/2017 Inactive Duragesic 75 mcg/hr transdermal patch RxNorm: 835258 1 Patch TD Q72H 09/09/2017 09/19/2017 Inactive nystatin 100,000 unit/gram topical cream RxNorm: 172791 1 Gram(s) TOP TID until healed to gaulding 09/06/2017 01/03/2018 Inactive nystatin 100,000 unit/gram topical cream RxNorm: 094289 1 Gram(s) TOP TID until healed to gaulding 09/06/2017 09/05/2017 Inactive hydrocodone 10 mg-acetaminophen 325 mg tablet RxNorm: 512839 2 Tablet(s) PO scheduled TID as needed 08/31/2017 09/14/2017 Inactive Not to exceed 3gm/24hr acetaminophen fentanyl 100 mcg/hr transdermal patch RxNorm: 998005 1 Patch TD Q72H 08/24/2017 09/19/2017 Inactive fentanyl 50 mcg/hr transdermal patch RxNorm: 192126 1 Patch TD Q72H 08/24/2017 09/08/2017 Inactive fentanyl 25 mcg/hr transdermal patch RxNorm: 428470 1 Patch TD Q72H 08/24/2017 08/24/2017 Inactive hyoscyamine 0.125 mg disintegrating tablet RxNorm: 7902057 Tablet(s) 1-2 Tablet(s) PO Q8 as needed 08/23/2017 09/14/2017 Inactive hydrocodone 10 mg-acetaminophen 325 mg tablet RxNorm: 932237 1 Tablet(s) PO scheduled TID et Q6 hours as needed 08/18/2017 08/30/2017 Inactive Not to exceed 3gm/24hr acetaminophen hydrochlorothiazide 25 mg tablet RxNorm: 431424 GIVE 1 TABLET VIA PEG TUBE ONCE DAILY 08/17/2017 02/12/2018 Inactive Generic For:HYDRODIURIL 25 MG TABLET 08/17/2017 9:01:54 AM08/11/2017 10:12:00 AM lorazepam 0.5 mg tablet RxNorm: 195780 1/2 Tablet(s) PO BID 08/03/2017 09/14/2017 Inactive fentanyl 100 mcg/hr transdermal patch RxNorm: 723718 1 Patch TD Q72H 07/26/2017 08/23/2017 Inactive fentanyl 25 mcg/hr transdermal patch RxNorm: 543125 1 Patch TD Q72H 07/26/2017 08/23/2017 Inactive hydrocodone 10 mg-acetaminophen 325 mg tablet RxNorm: 895940 1 Tablet(s) PO scheduled TID et Q6 hours as needed 07/16/2017 08/14/2017 Inactive Not to exceed 3gm/24hr acetaminophen hyoscyamine 0.125 mg disintegrating tablet RxNorm: 9922188 Tablet(s) 1-2 Tablet(s) PO Q8 as needed 07/13/2017 08/01/2017 Inactive baclofen 10 mg tablet RxNorm: 956288 TAKE 1 TABLET THREE TIMES DAILY VIA STOMACH TUBE 07/12/2017 10/06/2017 Inactive 07/12/2017 9:04:08 AM N O T I C E Last quantity doesn't match original quantity lorazepam 0.5 mg tablet RxNorm: 650355 1/2 Tablet(s) PO BID 07/02/2017 08/02/2017 Inactive fentanyl 100 mcg/hr transdermal patch RxNorm: 222915 1 Patch TD Q72H 06/28/2017 07/25/2017 Inactive fentanyl 25 mcg/hr transdermal patch RxNorm: 010262 1 Patch TD Q72H 06/28/2017 07/25/2017 Inactive hyoscyamine 0.125 mg disintegrating tablet RxNorm: 1156369 Tablet(s) 1-2 Tablet(s) PO Q8 as needed 06/03/2017 06/22/2017 Inactive fentanyl 25 mcg/hr transdermal patch RxNorm: 235877 1 Patch TD Q72H 05/26/2017 06/24/2017 Inactive Levemir FlexTouch U-100 Insulin 100 unit/mL (3 mL) subcutaneous pen RxNorm: 975951 20 Unit(s) SQ BID 05/26/2017 09/08/2017 Inactive fentanyl 100 mcg/hr transdermal patch RxNorm: 733053 1 Patch TD Q72H 05/26/2017 06/24/2017 Inactive hydrocodone 10 mg-acetaminophen 325 mg tablet RxNorm: 387494 1 Tablet(s) PO scheduled BID et Q6 hours as needed 05/12/2017 05/11/2017 Inactive hydrocodone 10 mg-acetaminophen 325 mg tablet RxNorm: 714105 1 Tablet(s) PO scheduled TID et Q6 hours as needed 05/12/2017 06/10/2017 Inactive Not to exceed 3gm/24hr acetaminophen docusate sodium 100 mg tablet RxNorm: 7727462 1 Tablet(s) PO BID as needed if no bowel movement 05/10/2017 05/09/2017 Inactive lisinopril 20 mg tablet RxNorm: 722684 1 Tablet(s) PO daily 05/10/2017 09/08/2017 Inactive docusate sodium 100 mg tablet RxNorm: 9047234 1 Tablet(s) PO BID as needed if no bowel movement 05/10/2017 09/14/2017 Inactive fentanyl 25 mcg/hr transdermal patch RxNorm: 849252 1 Patch TD Q72H 05/03/2017 05/25/2017 Inactive lorazepam 0.5 mg tablet RxNorm: 788136 1/2 Tablet(s) PO BID 05/03/2017 07/01/2017 Inactive fentanyl 100 mcg/hr transdermal patch RxNorm: 224054 1 Patch TD Q72H 04/27/2017 05/25/2017 Inactive carvedilol 3.125 mg tablet RxNorm: 972847 Tablet(s) GIVE 1 TABLET VIA PEG TUBE DAILY 04/15/2017 10/21/2017 Inactive Levemir FlexTouch 100 unit/mL (3 mL) subcutaneous insulin pen RxNorm: 689998 10 Unit(s) SQ BID 04/15/2017 2017 Inactive hyoscyamine 0.125 mg disintegrating tablet RxNorm: 0937761 1-2 Tablet(s) PO Q8 as needed 04/14/2017 05/03/2017 Inactive hydrocodone 10 mg-acetaminophen 325 mg tablet RxNorm: 121033 1 Tablet(s) PO scheduled BID et Q6 hours as needed 04/13/2017 05/02/2017 Inactive baclofen 10 mg tablet RxNorm: 360544 TAKE 1 TABLET THREE TIMES DAILY VIA STOMACH TUBE 04/08/2017 05/22/2017 Inactive 04/08/2017 9:32:07 AM fentanyl 25 mcg/hr transdermal patch RxNorm: 289920 1 Patch TD Q72H 04/05/2017 05/02/2017 Inactive lidocaine 10 mg/mL (1 %) injection solution RxNorm: 2133681 1 Milliliter(s) Inj daily Mix with rocephin 03/31/2017 03/30/2017 Inactive Pt resides at [facility] lidocaine 10 mg/mL (1 %) injection solution RxNorm: 8255827 1 Milliliter(s) Inj daily Mix with rocephin 03/31/2017 04/06/2017 Inactive Pt resides at [facility] fentanyl 100 mcg/hr transdermal patch RxNorm: 397708 1 Patch TD Q72H 03/29/2017 04/26/2017 Inactive nystatin 100,000 unit/gram topical powder RxNorm: 302590 APPLY UNDER BREASTS TWICE DAILY FOR YEAST SKIN INFECTION AND APPLY TO UNDERARM AND ABDOMINAL FOLDS AND PERIAREA TWICE DAILY 03/29/2017 03/28/2017 Inactive 03/27/2017 9:12:50 AM nystatin 100,000 unit/gram topical powder RxNorm: 382208 APPLY UNDER BREASTS TWICE DAILY FOR YEAST SKIN INFECTION AND APPLY TO UNDERARM AND ABDOMINAL FOLDS AND PERIAREA TWICE DAILY 03/29/2017 09/14/2017 Inactive 03/29/2017 9:42:55 AM03/27/2017 9:12:50 AM hyoscyamine 0.125 mg disintegrating tablet RxNorm: 0938358 1-2 Tablet(s) PO Q8 as needed 03/08/2017 03/27/2017 Inactive fentanyl 25 mcg/hr transdermal patch RxNorm: 452108 1 Patch TD Q72H 03/02/2017 03/31/2017 Inactive hydrocodone 10 mg-acetaminophen 325 mg tablet RxNorm: 750146 1 Tablet(s) PO scheduled BID et Q6 hours as needed 02/17/2017 03/18/2017 Inactive fentanyl 100 mcg/hr transdermal patch RxNorm: 717127 1 Patch TD Q72H 02/17/2017 03/18/2017 Inactive Lexapro 10 mg tablet RxNorm: 807220 1 Tablet(s) PO daily 02/05/2017 04/14/2017 Inactive Lexapro 10 mg tablet RxNorm: 246885 1 Tablet(s) PO daily 02/05/2017 02/04/2017 Inactive fentanyl 25 mcg/hr transdermal patch RxNorm: 993075 1 Patch TD Q72H 02/04/2017 03/01/2017 Inactive cyanocobalamin (vit B-12) 1,000 mcg tablet RxNorm: 709121 1 Tablet(s) PO daily 01/18/2017 12/13/2017 Inactive hyoscyamine 0.125 mg disintegrating tablet RxNorm: 7781687 Tablet(s) 1-2 Tablet(s) PO Q8 as needed 01/18/2017 02/06/2017 Inactive baclofen 10 mg tablet RxNorm: 482936 TAKE 1 TABLET THREE TIMES DAILY VIA STOMACH TUBE 01/04/2017 02/17/2017 Inactive 01/04/2017 9:25:18 AM fentanyl 100 mcg/hr transdermal patch RxNorm: 426637 1 Patch TD Q72H 12/25/2016 01/23/2017 Inactive hydrochlorothiazide 25 mg tablet RxNorm: 245130 Tablet(s) GIVE 1 TABLET VIA PEG TUBE ONCE A DAY 12/14/2016 07/11/2017 Inactive fentanyl 100 mcg/hr transdermal patch RxNorm: 729666 1 Patch TD Q72H 11/25/2016 12/24/2016 Inactive hyoscyamine 0.125 mg disintegrating tablet RxNorm: 7883637 Tablet(s) 1-2 Tablet(s) PO Q8 as needed 11/25/2016 12/14/2016 Inactive nystatin 100,000 unit/gram topical powder RxNorm: 493670 APPLY UNDER BREASTS TWICE DAILY FOR YEAST SKIN INFECTION AND APPLY TO UNDERARM AND ABDOMINAL FOLDS AND PERIAREA TWICE DAILY 11/24/2016 01/22/2017 Inactive 11/24/2016 9:34:02 AM hydrocodone 10 mg-acetaminophen 325 mg tablet RxNorm: 866481 1 Tablet(s) PO scheduled BID et Q6 hours as needed 11/02/2016 12/01/2016 Inactive cyanocobalamin (vit B-12) 1,000 mcg tablet RxNorm: 180071 1 Tablet(s) PO daily 11/02/2016 01/17/2017 Inactive hyoscyamine 0.125 mg disintegrating tablet RxNorm: 6210624 1-2 Tablet(s) PO Q8 as needed 10/19/2016 11/24/2016 Inactive fentanyl 100 mcg/hr transdermal patch RxNorm: 720748 1 Patch TD Q72H 10/13/2016 11/11/2016 Inactive hydrocodone 10 mg-acetaminophen 325 mg tablet RxNorm: 141122 1 Tablet(s) PO scheduled BID et Q6 hours as needed 10/05/2016 11/01/2016 Inactive baclofen 10 mg tablet RxNorm: 869063 TAKE 1 TABLET THREE TIMES DAILY VIA STOMACH TUBE 10/01/2016 11/14/2016 Inactive 10/01/2016 9:24:37 AM carvedilol 3.125 mg tablet RxNorm: 215464 GIVE 1 TABLET VIA PEG TUBE 2 TIMES A DAY 09/30/2016 12/28/2016 Inactive Generic For:COREG 3.125MG 09/30/2016 1:12:28 PM09/25/2016 9:06:11 AM Probiotic Blend 2 million cell-50 mg capsule RxNorm: 1 Capsule(s) PO BID 09/17/2016 09/23/2016 Inactive Keflex 500 mg capsule RxNorm: 611137 1 Capsule(s) PO TID 09/17/2016 09/23/2016 Inactive hyoscyamine 0.125 mg/5 mL oral elixir RxNorm: 0176623 5 Milliliter(s) PO TID 09/08/2016 09/17/2016 Inactive hyoscyamine 0.125 mg/5 mL oral elixir RxNorm: 9493201 5 Milliliter(s) PO TID 09/08/2016 09/07/2016 Inactive hyoscyamine 0.125 mg disintegrating tablet RxNorm: 7714738 1-2 Tablet(s) PO Q8 as needed 09/07/2016 10/18/2016 Inactive fentanyl 100 mcg/hr transdermal patch RxNorm: 554509 1 Patch TD Q72H 09/01/2016 09/30/2016 Inactive ranitidine 150 mg tablet RxNorm: 470983 1 Tablet(s) PO BID 08/25/2016 No Stop Date Active hydrocodone 10 mg-acetaminophen 325 mg tablet RxNorm: 873069 1 Tablet(s) PO scheduled BID et Q6 hours as needed 08/24/2016 09/22/2016 Inactive cyanocobalamin (vit B-12) 1,000 mcg tablet RxNorm: 779542 1 Tablet(s) PO daily 08/12/2016 11/01/2016 Inactive cyanocobalamin (vit B-12) 1,000 mcg tablet RxNorm: 317900 1 Tablet(s) PO daily 08/12/2016 08/11/2016 Inactive hydrocodone 10 mg-acetaminophen 325 mg tablet RxNorm: 089227 1-2 Tablet(s) PO Q6 as needed 08/03/2016 08/17/2016 Inactive fentanyl 100 mcg/hr transdermal patch RxNorm: 887458 1 Patch TD Q72H 08/03/2016 08/31/2016 Inactive nystatin 100,000 unit/gram topical powder RxNorm: 322695 APPLY UNDER BREASTS TWICE DAILY FOR YEAST SKIN INFECTION AND APPLY TO UNDERARM AND ABDOMINAL FOLDS AND PERIAREA TWICE DAILY 07/17/2016 09/14/2016 Inactive 07/17/2016 3:56:54 PM fentanyl 100 mcg/hr transdermal patch RxNorm: 424676 1 Patch TD Q72H 07/15/2016 08/02/2016 Inactive lisinopril 20 mg tablet RxNorm: 381973 1 Tablet(s) PO daily 07/02/2016 03/28/2017 Inactive hydrocodone 10 mg-acetaminophen 325 mg tablet RxNorm: 297170 1-2 Tablet(s) PO Q6 as needed 07/01/2016 07/15/2016 Inactive Xarelto 20 mg tablet RxNorm: 2243347 Tablet(s) TAKE 1 TABLET VIA PEG TUBE AT BEDTIME 06/19/2016 04/14/2017 Inactive fentanyl 100 mcg/hr transdermal patch RxNorm: 015203 1 Patch TD Q72H 06/17/2016 07/14/2016 Inactive nystatin 100,000 unit/gram topical powder RxNorm: 801072 APPLY TO UNDER BREASTS TWICE DAILY FOR YEAST SKIN INFECTION AND APPLY TO UNDERARM AND ABDOMINAL FOLDS AND PERIAREA TWICE DAILY 06/15/2016 07/16/2016 Inactive Generic For:MYCOSTATIN 100,000 UNITS/GM PW 06/15/2016 12:28:26 PM fentanyl 100 mcg/hr transdermal patch RxNorm: 826776 1 Patch TD Q72H 06/05/2016 06/16/2016 Inactive hydrocodone 10 mg-acetaminophen 325 mg tablet RxNorm: 677322 1-2 Tablet(s) PO Q6 as needed 06/02/2016 06/16/2016 Inactive Probiotic Blend 2 million cell-50 mg capsule RxNorm: 1 Capsule(s) PO BID 05/13/2016 05/19/2016 Inactive nitrofurantoin 100 mg capsule RxNorm: 818077 1 Capsule(s) PO BID 05/13/2016 05/19/2016 Inactive nitrofurantoin 100 mg capsule RxNorm: 818233 1 Capsule(s) PO BID 05/13/2016 05/12/2016 Inactive fentanyl 75 mcg/hr transdermal patch RxNorm: 240839 1 Patch TD Q72H 05/13/2016 06/04/2016 Inactive Keflex 500 mg capsule RxNorm: 972373 1 Capsule(s) PO TID 05/07/2016 05/13/2016 Inactive Patient at [facility] Keflex 500 mg capsule RxNorm: 229606 1 Capsule(s) PO TID 05/07/2016 05/06/2016 Inactive hydrocodone 10 mg-acetaminophen 325 mg tablet RxNorm: 499709 1-2 Tablet(s) PO Q6 as needed 05/04/2016 06/01/2016 Inactive hydrochlorothiazide 25 mg tablet RxNorm: 321100 Tablet(s) GIVE 1 TABLET VIA PEG TUBE ONCE A DAY 04/29/2016 11/24/2016 Inactive hydrochlorothiazide 25 mg tablet RxNorm: 049518 GIVE 1 TABLET VIA PEG TUBE ONCE A DAY 04/22/2016 04/28/2016 Inactive Generic For:HYDRODIURIL 25 MG TABLET refill request fentanyl 75 mcg/hr transdermal patch RxNorm: 864631 1 Patch TD Q72H 04/17/2016 05/12/2016 Inactive Xarelto 20 mg tablet RxNorm: 0878838 TAKE 1 TABLET VIA PEG TUBE AT BEDTIME 04/16/2016 06/14/2016 Inactive 04/16/2016 9:08:52 AM citalopram 40 mg tablet RxNorm: 339024 1 Tablet(s) PO daily 04/02/2016 02/25/2017 Inactive citalopram 40 mg tablet RxNorm: 161494 1 Tablet(s) PO daily 03/27/2016 04/01/2016 Inactive hydrocodone 10 mg-acetaminophen 325 mg tablet RxNorm: 247288 1-2 Tablet(s) PO Q6 as needed 03/27/2016 04/25/2016 Inactive fentanyl 75 mcg/hr transdermal patch RxNorm: 293277 1 Patch TD Q72H 03/18/2016 04/16/2016 Inactive hydrocodone 10 mg-acetaminophen 325 mg tablet RxNorm: 238283 1-2 Tablet(s) PO Q6 as needed 03/11/2016 03/26/2016 Inactive citalopram 40 mg tablet RxNorm: 371636 1 Tablet(s) PO daily 03/04/2016 03/26/2016 Inactive Levemir FlexTouch U-100 Insulin 100 unit/mL (3 mL) subcutaneous pen RxNorm: 606033 20 Unit(s) SQ BID 03/02/2016 09/27/2016 Inactive lisinopril 20 mg tablet RxNorm: 947040 1 Tablet(s) PO daily 02/25/2016 07/01/2016 Inactive Ativan 0.5 mg tablet RxNorm: 980468 1 Tablet(s) PO Q4H as needed 02/18/2016 04/14/2017 Inactive Xarelto 20 mg tablet RxNorm: 0679997 TAKE 1 TABLET VIA PEG TUBE AT BEDTIME 02/12/2016 04/11/2016 Inactive 02/12/2016 9:08:22 AM hydrocodone 10 mg-acetaminophen 325 mg tablet RxNorm: 524052 1-2 Tablet(s) PO Q6 as needed 02/12/2016 03/10/2016 Inactive fentanyl 75 mcg/hr transdermal patch RxNorm: 698693 1 Patch TD Q72H 02/11/2016 03/11/2016 Inactive citalopram 20 mg tablet RxNorm: 855889 1 Tablet(s) PO daily 01/28/2016 03/03/2016 Inactive fentanyl 75 mcg/hr transdermal patch RxNorm: 860424 1 TD Q72H 01/17/2016 02/10/2016 Inactive hydrocodone 10 mg-acetaminophen 325 mg tablet RxNorm: 083030 1-2 Tablet(s) PO Q6 as needed 01/07/2016 02/05/2016 Inactive fentanyl 50 mcg/hr transdermal patch RxNorm: 812934 1 TD Q72H 01/01/2016 01/16/2016 Inactive fentanyl 50 mcg/hr transdermal patch RxNorm: 051978 1 TD q 3 days 12/26/2015 12/31/2015 Inactive Xarelto 20 mg tablet RxNorm: 1148723 TAKE 1 TABLET VIA PEG TUBE AT BEDTIME 12/17/2015 02/11/2016 Inactive 12/16/2015 3:27:57 PM12/14/2015 9:45:17 AM hydrocodone 10 mg-acetaminophen 325 mg tablet RxNorm: 368550 1-2 Tablet(s) PO Q6 as needed 12/06/2015 01/04/2016 Inactive fentanyl 50 mcg/hr transdermal patch RxNorm: 607994 1 TD q 3 days 12/06/2015 12/25/2015 Inactive fentanyl 25 mcg/hr transdermal patch RxNorm: 693129 1 TD q 3 days 11/18/2015 12/05/2015 Inactive Zithromax Z-Eliu 250 mg tablet RxNorm: 579319 1 Tablet(s) PO UD 10/09/2015 02/26/2016 Inactive z pack as directed- please write out instructions- pt at [facility] nystatin 100,000 unit/gram topical powder RxNorm: 830458 APPLY TO UNDER BREASTS TWICE DAILY FOR YEAST SKIN INFECTION AND APPLY TO UNDERARM AND ABDOMINAL FOLDS AND PERIAREA TWICE DAILY 10/07/2015 12/05/2015 Inactive Generic For:MYCOSTATIN 100,000 UNITS/GM PW 10/05/2015 12:07:35 PM fentanyl 25 mcg/hr transdermal patch RxNorm: 603200 1 TD q 3 days 10/03/2015 11/01/2015 Inactive fentanyl 25 mcg/hr transdermal patch RxNorm: 116453 1 TD q 3 days 09/27/2015 10/02/2015 Inactive fentanyl 25 mcg/hr transdermal patch RxNorm: 159330 1 TD q 3 days 09/17/2015 09/26/2015 Inactive fentanyl 25 mcg/hr transdermal patch RxNorm: 797533 1 TD q 3 days 08/30/2015 09/16/2015 Inactive hydrocodone 5 mg-acetaminophen 325 mg tablet RxNorm: 259604 1 Tablet(s) PO Q6 as needed 08/30/2015 09/28/2015 Inactive Diflucan 100 mg tablet RxNorm: 237638 1 Tablet(s) Miscellaneous per peg daily 07/29/2015 08/04/2015 Inactive fentanyl 25 mcg/hr transdermal patch RxNorm: 256370 1 TD q 3 days 07/18/2015 08/29/2015 Inactive hydrocodone 5 mg-acetaminophen 325 mg tablet RxNorm: 918307 1 Tablet(s) PO Q6 as needed 07/18/2015 08/29/2015 Inactive Diflucan 100 mg tablet RxNorm: 494330 1 Tablet(s) Miscellaneous per peg daily 06/17/2015 06/23/2015 Inactive Senna-S 8.6 mg-50 mg tablet RxNorm: 150292 1 Tablet(s) PO daily as needed constipation No Start Date Active Dulcolax (bisacodyl) 10 mg rectal suppository RxNorm: 905411 1 Suppository RTL daily as needed constipation No Start Date Active polyethylene glycol 3350 17 gram/dose oral powder RxNorm: 454946 17 Gram(s) PO daily as needed constipation No Start Date Active baclofen 10 mg tablet RxNorm: 870083 1 Tablet(s) PO TID No Start Date 09/30/2016 Inactive Ativan 0.5 mg tablet RxNorm: 129811 1 Tablet(s) PO Q4H as needed No Start Date 02/17/2016 Inactive ranitidine 150 mg tablet RxNorm: 270876 1 Tablet(s) PO daily No Start Date 08/24/2016 Inactive carvedilol 3.125 mg tablet RxNorm: 891211 1 Tablet(s) PO daily No Start Date 09/29/2016 Inactive citalopram 40 mg tablet RxNorm: 752486 1 Tablet(s) PO daily No Start Date 01/27/2016 Inactive Probiotic Blend oral RxNorm: oral No Start Date 05/12/2016 Inactive hydrochlorothiazide 25 mg tablet RxNorm: 697568 1 Tablet(s) PO daily No Start Date 04/21/2016 Inactive albuterol sulfate concentrate 5 mg/mL(0.5 %) solution for nebulization RxNorm: 355485 1 Vial INH daily as needed congestion No Start Date 03/17/2018 Inactive Levemir FlexTouch 100 unit/mL (3 mL) subcutaneous insulin pen RxNorm: 718413 10 Unit(s) SQ BID No Start Date 03/01/2016 Inactive Zithromax Z-Eliu 250 mg tablet RxNorm: 877506 1 Tablet(s) PO UD No Start Date 10/08/2015 Inactive z pack as directed- please write out instructions- pt at [facility] nystatin 100,000 unit/gram topical powder RxNorm: 832091 Gram(s) TOP BID as needed No Start Date 10/06/2015 Inactive pravastatin 40 mg tablet RxNorm: 957796 Tablet(s) PO daily No Start Date 04/14/2017 Inactive lorazepam 0.5 mg tablet RxNorm: 565885 1/2 Tablet(s) PO BID No Start Date 05/02/2017 Inactive Xarelto 20 mg tablet RxNorm: 2148482 1 Tablet(s) PO daily No Start Date 12/16/2015 Inactive fentanyl 25 mcg/hr transdermal patch RxNorm: 838151 1 TD q 3 days No Start Date 07/17/2015 Inactive lisinopril 20 mg tablet RxNorm: 870402 1 Tablet(s) PO daily No Start Date 02/24/2016 Inactive hydrocodone 5 mg-acetaminophen 325 mg tablet RxNorm: 972516 1 Tablet(s) PO Q6 as needed No Start Date 07/17/2015 Inactive citalopram 40 mg tablet RxNorm: 394191 1 Tablet(s) PO daily No Start Date 03/03/2016 Inactive hyoscyamine 0.125 mg disintegrating tablet RxNorm: 1623100 1-2 Tablet(s) PO Q8 as needed No [...] 30.7 pg 02/14/2018 Cbc With Differential Ord2 O'Brien% 7.4 % 02/14/2018 Cbc With Differential Ord2 [...] 2.14 K/ul 02/14/2018 Cbc With Differential Ord2 O'Brien ABS# 0.5 K/ul 02/14/2018 Cbc With Differential Ord2 Eos ABS# 0.3 K/ul 02/14/2018 Cbc With Differential Ord2 Baso ABS# 0.0 K/ul 02/14/2018 Comp Metabolic Vzn543 NA 142 mEq/L 02/14/2018 Comp Metabolic Kys247 K 4.5 mEq/L 02/14/2018 Comp Metabolic Lbk591 CL 97 mEq/L 02/14/2018 Comp Metabolic Oss192 CO2 41.0 mEq/L 02/14/2018 Comp Metabolic Kxv768 ANION GAP 9 02/14/2018 Comp Metabolic Xup113 GLUCOSE 111 mg/dL 02/14/2018 Comp Metabolic Acb810 Creat 0.6 mg/dL 02/14/2018 Comp Metabolic Bho923 eGFR 108 ml/min/1.73m2 02/14/2018 Comp Metabolic Tlc750 BUN 32 mg/dL 02/14/2018 Comp Metabolic Lef653 B/C Ratio 54.2 Ratio 02/14/2018 Comp Metabolic Uup119 CALCIUM 8.9 mg/dL 02/14/2018 Comp Metabolic Zan688 ALK PHOS 81 U/L 02/14/2018 Comp Metabolic Dww860 AST(SGOT) 14 U/L 02/14/2018 Comp Metabolic Kpg293 ALT(SGPT) 11 U/L 02/14/2018 Comp Metabolic Gxu497 BILI T 0.3 mg/dL 02/14/2018 Comp Metabolic Ach861 ALBUMIN 3.4 g/dL 02/14/2018 Comp Metabolic Uik564 TPRO 6.3 g/dL 02/14/2018 Comp Metabolic Tmi309 GLOB 2.9 g/dL 02/14/2018 Comp Metabolic Aka850 A/G Ratio 1.2 Ratio 02/14/2018 Comp Metabolic Svg380 Osmo 291 mOsmo 02/14/2018 %Hba1C Qhx794 % HbA1c 98594- 6 5.5 % 02/14/2018 %Hba1C Ssh040 Gluc Ave 111 mg/dL 02/14/2018 Prealbumin 095629 PREALBUMIN 27 mg/dL 11/24/2017 %Hba1C Ufb543 % HbA1c 61433- 6 5.5 % 11/04/2017 %Hba1C Anh678 Gluc Ave 111 mg/dL 11/04/2017 Culture Urine [id number] URINE CULTURE SEE NOTES 10/04/2017 Culture Urine [id number] Continued Results 10/04/2017 Urine Culture Ucult Complete [...] Ord28 U-Com Culture to follow 10/01/2017 B12 Ebz800 B12 >1500.00 pg/ml 02/19/2017 Cbc With Differential [...] 31.5 pg 02/02/2017 Cbc With Differential Ord2 O'Brien% 8.3 % 02/02/2017 Cbc With Differential Ord2 [...] 2.28 K/ul 02/02/2017 Cbc With Differential Ord2 O'Brien ABS# 0.6 K/ul 02/02/2017 Cbc With Differential Ord2 Eos ABS# 0.4 K/ul 02/02/2017 Cbc With Differential Ord2 Baso ABS# 0.0 K/ul 02/02/2017 %Hba1C Ztf340 % HbA1c 26914- 6 5.2 % 02/02/2017 %Hba1C Zah861 Gluc Ave 103 mg/dL 02/02/2017 Comp Metabolic Tdb839 NA 138 mEq/L 02/02/2017 Comp Metabolic Syo868 K 4.5 mEq/L 02/02/2017 Comp Metabolic Vwg982 CL 98 mEq/L 02/02/2017 Comp Metabolic Mhe841 CO2 37.0 mEq/L 02/02/2017 Comp Metabolic Bjb163 ANION GAP 8 02/02/2017 Comp Metabolic Ids693 GLUCOSE 94 mg/dL 02/02/2017 Comp Metabolic Rre432 Creat 0.7 mg/dL 02/02/2017 Comp Metabolic Nfk036 eGFR 88 ml/min/1.73m2 02/02/2017 Comp Metabolic Kfq735 BUN 36 mg/dL 02/02/2017 Comp Metabolic Ssz867 B/C Ratio 50.7 Ratio 02/02/2017 Comp Metabolic Vxy009 CALCIUM 9.0 mg/dL 02/02/2017 Comp Metabolic Ncp453 ALK PHOS 78 U/L 02/02/2017 Comp Metabolic Xnr299 AST(SGOT) 22 U/L 02/02/2017 Comp Metabolic Tvx990 ALT(SGPT) 28 U/L 02/02/2017 Comp Metabolic Agi893 BILI T 0.3 mg/dL 02/02/2017 Comp Metabolic Usq999 ALBUMIN 3.3 g/dL 02/02/2017 Comp Metabolic Ftv913 TPRO 5.9 g/dL 02/02/2017 Comp Metabolic Qrd138 GLOB 2.6 g/dL 02/02/2017 Comp Metabolic Xlc085 A/G Ratio 1.3 Ratio 02/02/2017 Comp Metabolic Xwh352 Osmo 284 mOsmo 02/02/2017 %Hba1C Swe139 % HbA1c 36562- 6 5.0 % 10/29/2016 %Hba1C Rbx695 Gluc Ave 97 mg/dL 10/29/2016 Culture Urine [id number] URINE CULTURE SEE NOTES 09/21/2016 Culture Urine [id number] Continued Results 09/21/2016 Urine Culture Ucult Complete [...] 32.4 pg 07/30/2016 Cbc With Differential Ord2 O'Brien% 7.2 % 07/30/2016 Cbc With Differential Ord2 [...] 2.69 K/ul 07/30/2016 Cbc With Differential Ord2 O'Brien ABS# 0.5 K/ul 07/30/2016 Cbc With Differential Ord2 Eos ABS# 0.5 K/ul 07/30/2016 Cbc With Differential Ord2 Baso ABS# 0.0 K/ul 07/30/2016 Comp Metabolic Qgv479 NA 141 mEq/L 07/30/2016 Comp Metabolic Upn776 K 4.3 mEq/L 07/30/2016 Comp Metabolic Ihb989 CL 100 mEq/L 07/30/2016 Comp Metabolic Jib189 CO2 33.0 mEq/L 07/30/2016 Comp Metabolic Dvq694 ANION GAP 12 07/30/2016 Comp Metabolic Qky370 GLUCOSE 64 mg/dL 07/30/2016 Comp Metabolic Shg022 Creat 0.5 mg/dL 07/30/2016 Comp Metabolic Bqw899 eGFR 126 ml/min/1.73m2 07/30/2016 Comp Metabolic Dck177 BUN 25 mg/dL 07/30/2016 Comp Metabolic Jei046 B/C Ratio 48.1 Ratio 07/30/2016 Comp Metabolic Esv012 CALCIUM 8.9 mg/dL 07/30/2016 Comp Metabolic Jwf447 ALK PHOS 90 U/L 07/30/2016 Comp Metabolic Djx273 AST(SGOT) 22 U/L 07/30/2016 Comp Metabolic Mme170 ALT(SGPT) 36 U/L 07/30/2016 Comp Metabolic Qrs429 BILI T 0.3 mg/dL 07/30/2016 Comp Metabolic Wln741 ALBUMIN 3.4 g/dL 07/30/2016 Comp Metabolic Wju546 TPRO 6.0 g/dL 07/30/2016 Comp Metabolic Chk527 GLOB 2.7 g/dL 07/30/2016 Comp Metabolic Xcf474 A/G Ratio 1.3 Ratio 07/30/2016 Comp Metabolic Ica094 Osmo 284 mOsmo 07/30/2016 A1C Frequency Fce209 A1CF 04038-2 Last A1C performed at [facility] lab on: 05-12-2016 07/30/2016 %Hba1C Eub539 % HbA1c 50207- 6 5.2 % 05/12/2016 %Hba1C Cak408 Gluc Ave 103 mg/dL 05/12/2016 Culture Urine [id number] URINE CULTURE SEE NOTES 05/11/2016 Urine Culture [...] U-Com Culture to follow 05/06/2016 Culture Urine [id number] URINE CULTURE SEE NOTES 03/17/2016 Culture Urine [id number] Continued Results 03/17/2016 Urine Culture Ucult Complete [...] 32.0 pg 02/11/2016 Cbc With Differential Ord2 O'Brien% 9.1 % 02/11/2016 Cbc With Differential Ord2 [...] 2.59 K/ul 02/11/2016 Cbc With Differential Ord2 O'Brien ABS# 0.6 K/ul 02/11/2016 Cbc With Differential Ord2 Eos ABS# 0.3 K/ul 02/11/2016 Cbc With Differential Ord2 Baso ABS# 0.0 K/ul 02/11/2016 Comp Metabolic Byc217 NA 137 mEq/L 02/11/2016 Comp Metabolic Qer605 K 4.4 mEq/L 02/11/2016 Comp Metabolic Dpf097 CL 100 mEq/L 02/11/2016 Comp Metabolic Nmy938 CO2 25.0 mEq/L 02/11/2016 Comp Metabolic Bvd662 ANION GAP 16 02/11/2016 Comp Metabolic Xbe160 GLUCOSE 99 mg/dL 02/11/2016 Comp Metabolic Zzg371 Creat 0.6 mg/dL 02/11/2016 Comp Metabolic Vxj741 eGFR 99 ml/min/1.73m2 02/11/2016 Comp Metabolic Kqz782 BUN 27 mg/dL 02/11/2016 Comp Metabolic Nbw081 B/C Ratio 42.2 Ratio 02/11/2016 Comp Metabolic Swv942 CALCIUM 9.2 mg/dL 02/11/2016 Comp Metabolic Ttn693 ALK PHOS 74 U/L 02/11/2016 Comp Metabolic Ybn062 AST(SGOT) 24 U/L 02/11/2016 Comp Metabolic Dbr614 ALT(SGPT) 26 U/L 02/11/2016 Comp Metabolic Yqh962 BILI T 0.5 mg/dL 02/11/2016 Comp Metabolic Upy684 ALBUMIN 3.5 g/dL 02/11/2016 Comp Metabolic Bns827 TPRO 6.2 g/dL 02/11/2016 Comp Metabolic Dgw824 GLOB 2.7 g/dL 02/11/2016 Comp Metabolic Plh354 A/G Ratio 1.3 Ratio 02/11/2016 Comp Metabolic Elk590 Osmo 279 mOsmo 02/11/2016 Review of Systems [...] 1: 128/86 Code: 8480-6 BMI: 31.4 Code: 17526-5 Heart Rate 1: 72 bpm Height: 5'1" Weight: 166 lbs 06/17/2015 Blood Pressure 1: 110/78 Code: 8480-6 BMI: 33.3 Code: 71223-4 Heart Rate 1: 74 bpm Height: 5'1" [...] Present Encounters Encounter Performer Location Codes Date ([id number]) 09004 EST. PATIENT, LEVEL IV Diagnosis: Cough[ICD10: R05] Diagnosis: Pneumonia, unspecified organism[ICD10: J18.9] Diagnosis: Pain in right knee[ICD10: M25.561] Carlyn Everett MD, [facility] CPT- 4: 24042 03/18/2018 ([id number]) 81685 EST. PATIENT, LEVEL IV Diagnosis: Type 2 diabetes mellitus without complications[ICD10: E11.9] Diagnosis: Essential (primary) hypertension[ICD10: I10] Diagnosis: Chronic pain syndrome[ICD10: G89.4] Carlyn Everett MD, [facility] CPT-4: 30065 01/07/2018 ([id number]) 11300 EST. PATIENT, LEVEL IV Diagnosis: Essential (primary) hypertension[ICD10: I10] Diagnosis: Type 2 diabetes mellitus without complications[ICD10: E11.9] Carlyn Everett MD, [facility] CPT-4: 76973 2017 ([id number]) 29907 EST. PATIENT, LEVEL IV Diagnosis: Type 2 diabetes mellitus with hyperglycemia[ICD10: E11.65] Diagnosis: Essential (primary) hypertension[ICD10: I10] Diagnosis: Pain in left shoulder[ICD10: M25.512] Diagnosis: Pain in right shoulder[ICD10: M25.511] Diagnosis: Pain in left knee[ICD10: M25.562] Diagnosis: Pain in right knee[ICD10: M25.561] Vonda Everett MD, [facility] CPT- 4: 37852 09/09/2017 73798 EST. PATIENT, LEVEL IV Diagnosis: Essential (primary) hypertension[ICD10: I10] Diagnosis: Type 2 diabetes mellitus with hyperglycemia[ICD10: E11.65] Diagnosis: Low back pain[ICD10: M54.5] Sunitha Everett MD, [facility] CPT-4: 73164 06/08/2017 ([id number]) 45086 EST. PATIENT, LEVEL IV Diagnosis: Essential (primary) hypertension[ICD10: I10] Diagnosis: Type 2 diabetes mellitus with hyperglycemia[ICD10: E11.65] Diagnosis: Low back pain[ICD10: M54.5] Sunitha Everett MD, [facility] CPT-4: 25382 04/15/2017 ([id number]) 94141 EST. PATIENT, LEVEL IV Diagnosis: Essential (primary) hypertension[ICD10: I10] Diagnosis: Type 2 diabetes mellitus with hyperglycemia[ICD10: E11.65] Diagnosis: Low back pain[ICD10: M54.5] Vodna Everett MD, [facility] CPT-4: 65274 02/16/2017 21123 EST. 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 A chest xray has been ordered as have antibiotics. The pt is aware of the diagnosis and the need for acute treatment of this illness. Right knee pain -xray knee-rx for voltaren gel 03/18/2018 Appointment: Carlyn Higginbotham WPtel: [phone] [phone] [place] (30 min) Complex 03/18/2018 Patient Education: Patient Medication Summary Completed 03/18/2018 Appointment: Carlyn Higginbotham WPtel: [phone] [phone] [place] (30 min) Complex 03/17/2018 Appointment: Carlyn Higginbotham WPtel: [phone] [phone] [place] (15 min) Moderate 03/10/2018 Appointment: Carlyn Higginbothma WPtel: [phone] [phone] [place] (15 min) Moderate 02/08/2018 Visit Plan: DM -decrease levemir to 4 units daily -monitor blood sugars ADO-lciqovrvlq-hd changes Chronic pain -well controlled with fentanyl patch -no changes at this time 01/07/2018 Appointment: Carlyn Higginbotham WPtel: [phone] [phone] [place] (15 min) Moderate 01/07/2018 Patient Education: [...] AT HS 2017 Appointment: Carlyn Higginbotham WPtel: [phone] [phone] [place] (15 min) Moderate 2017 Patient Education: [...] 175mcg. 09/09/2017 [phone] [place] ([facility] min) Moderate 09/09/2017 Patient Education: [...] and PRN pain medications - will have longterm fax over PRN medication administration record. 06/08/2017 [phone] [place] ([facility] min) Complex 06/08/2017 Patient Education: [...] over-medication. 04/15/2017 App[facility]ment: [phone] ([facility] min) Complex 04/15/2017 Patient Education: [...] today. 02/16/2017 App[facility]ment[phone] (15 min) Moderate 02/16/2017 Patient Education: Patient [...] or concerns. 11/09/2016 App[facility]ment: [phone] (30 min) Complex 11/09/2016 Patient Education: Patient Medication Summary Completed 11/09/2016 Care Plan: Referral Order SNOMED-CT : [id number] Pending 11/09/2016 Patient Education: Patient Medication Summary [...] Follow up weight in 1 month Neck wvpr-gtambzengmr-Djnl PT focus neck/upper body Right earache-cerumen removed with water pick today in the office 07/18/2015 Appointment: (30 min) Complex 07/18/2015 Patient Education: Patient Medication Summary Completed 07/18/2015 Patient Education: Obesity Completed 07/18/2015 Patient Education: .Cervicalgia Neck Pain Completed 07/18/2015 Referral: [facility] WPtel: [phone] Referral Completed 06/25/2015 Visit Plan: Hypertension [...] labs this week, get report from and [facility]. I spent over an hour with the patient in direct contact. 06/17/2015 Appointment: Vonda Everett WPtel: [phone] [facility] New Patient 06/17/2015 Patient Education: Patient Medication Summary Completed 06/17/2015 Patient Education: Obesity Completed 06/17/2015 Patient Education: Hypertension Completed 06/17/2015 Care Plan: Referral Order SNOMED-CT : [id number] Ordered 06/17/2015 Referral: Jorge Luis Carroll Referral Initiated Referral: [facility] WPtel: [phone] Referral Appointment Requested Instructions Comment . [...] normal liver response to medications. 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 I spent over an hour with [...] Follow up weight in 1 month Neck lsnh-njrjdccjtfz-Yshu PT focus neck/upper body Right earache-cerumen removed [...] to 4 units daily -monitor blood sugars WBJ-qdtfsmrovc-cj changes Chronic pain -well controlled with fentanyl [...] and PRN pain medications - will have longterm fax over PRN medication administration record. . [...]
--- OUTSIDE RECORDS SUMMARY | 2018-08-09 11:57 | XMS REPORT | CCD ---
Author Author oVnda Everett Organization [facility] Address [address] [place] [address] Phone Care Team Providers Care Associate Store Manager Name Role Phone PP Unavailable CCM Unavailable Summary Purpose Interface Exchange Insurance Providers Payer name Policy type / Coverage type Covered alliance party ID Effective Begin Date Effective End Date WPS Medicare Part B Medicare Part B [id number] Unknown Unknown [facility] Life Insurance Medicare Part B [id number] Unknown Unknown Family history Father Diagnosis Age At Onset Arthritis Unknown Hypertension Unknown Mother Diagnosis Age At Onset Diabetes mellitus Type 2 Unknown Depression Unknown Arthritis Unknown Stroke Unknown Hypertension Unknown Sister Diagnosis Age At Onset Colon cancer Unknown Social History Social History Element Codes Description Effective Dates Marital status Unknown Maurice 01/07/2018 Living arrangements Unknown [facility] 04/15/2017 Number of children Unknown 3 06/17/2015 Employment Unknown Retired 06/17/[address]: 7272617 Quit over 10 years ago 15+ 06/17/[address]: 585993936 Never drinks alcohol 06/17/2015 Allergies, Adverse Reactions, [...] Fill Instructions carvedilol 3.125 mg tablet RxNorm: 703883 Tablet(s) GIVE 1 TABLET VIA PEG TUBE 2 TIMES A DAY 03/30/2018 06/27/2018 Active Generic For:COREG 3.125MG 10/22/2017 9:23:30 AM Voltaren 1 % topical gel RxNorm: 910520 APPLY 4 GRAMS TO RIGHT KNEE FOUR TIMES DAILY 03/30/2018 04/22/2018 Active Generic For:VOLTAREN GEL 1% 03/30/2018 11:14:57 AM hydrocodone 10 mg-acetaminophen 325 mg tablet RxNorm: 942506 2 Tablet(s) PO scheduled TID 03/23/2018 04/21/2018 Active Not to exceed 3gm/24hr acetaminophen Zithromax Z-Eliu 250 mg tablet RxNorm: 165565 Tablet(s) PO 03/18/2018 No Stop Date Active albuterol sulfate concentrate 5 mg/mL(0.5 %) solution for nebulization RxNorm: 854810 1 Vial Milliliter(s) INH TID PRN as needed congestion 03/18/2018 No Stop Date Active cefdinir 300 mg capsule RxNorm: 088483 1 Capsule(s) PO BID 03/18/2018 03/24/2018 Inactive Voltaren 1 % topical gel RxNorm: 650415 4 Gram(s) TOP QID 03/18/2018 03/29/2018 Inactive hydrochlorothiazide 25 mg tablet RxNorm: 863419 GIVE 1 TABLET VIA PEG TUBE ONCE DAILY 03/11/2018 09/06/2018 Active Generic For:HYDRODIURIL 25 MG TABLET 03/11/2018 9:15:32 AM fentanyl 100 mcg/hr transdermal patch RxNorm: 361675 1 Patch TD Q72H 03/02/2018 03/31/2018 Active Duragesic 75 mcg/hr transdermal patch RxNorm: 488981 1 Patch TD Q72H 03/02/2018 03/31/2018 Active hydrocodone 10 mg-acetaminophen 325 mg tablet RxNorm: 237424 2 Tablet(s) PO scheduled TID 02/18/2018 03/22/2018 Inactive Not to exceed 3gm/24hr acetaminophen hyoscyamine 0.125 mg disintegrating tablet RxNorm: 3633565 Tablet(s) 1-2 Tablet(s) PO Q8 as needed 02/08/2018 No Stop Date Active fentanyl 100 mcg/hr transdermal patch RxNorm: 413281 1 Patch TD Q72H 02/04/2018 03/01/2018 Inactive hydrocodone 10 mg-acetaminophen 325 mg tablet RxNorm: 787282 2 Tablet(s) PO scheduled TID 02/04/2018 02/17/2018 Inactive Not to exceed 3gm/24hr acetaminophen Duragesic 75 mcg/hr transdermal patch RxNorm: 359949 1 Patch TD Q72H 02/04/2018 03/01/2018 Inactive Levemir FlexTouch U-100 Insulin 100 unit/mL (3 mL) subcutaneous pen RxNorm: 849037 4 Unit(s) SQ QHS 01/07/2018 No Stop Date Active Duragesic 75 mcg/hr transdermal patch RxNorm: 751522 1 Patch TD Q72H 01/07/2018 02/03/2018 Inactive fentanyl 100 mcg/hr transdermal patch RxNorm: 117964 1 Patch TD Q72H 01/07/2018 02/03/2018 Inactive hydrocodone 10 mg-acetaminophen 325 mg tablet RxNorm: 758505 2 Tablet(s) PO scheduled TID 01/05/2018 02/03/2018 Inactive Not to exceed 3gm/24hr acetaminophen hydrocodone 10 mg-acetaminophen 325 mg tablet RxNorm: 198925 2 Tablet(s) PO scheduled TID and 1 tab q 4 as needed 01/04/2018 01/04/2018 Inactive Not to exceed 3gm/24hr acetaminophen cyanocobalamin (vit B-12) 1,000 mcg tablet RxNorm: 795910 1 Tablet(s) PO daily 12/28/2017 11/22/2018 Active baclofen 10 mg tablet RxNorm: 025312 Tablet(s) TAKE 1 TABLET THREE TIMES DAILY VIA STOMACH TUBE 12/27/2017 05/25/2018 Active 10/07/2017 5:36:15 PM 10/07/2017 5:36:13 PM N O T I C E Last quantity doesn't match original quantity Duragesic 75 mcg/hr transdermal patch RxNorm: 135042 1 Patch TD Q72H 12/22/2017 01/06/2018 Inactive fentanyl 100 mcg/hr transdermal patch RxNorm: 169009 1 Patch TD Q72H 12/22/2017 01/06/2018 Inactive hydrocodone 10 mg-acetaminophen 325 mg tablet RxNorm: 920364 2 Tablet(s) PO scheduled TID and 1 tab q 4 as needed 12/20/2017 01/03/2018 Inactive Not to exceed 3gm/24hr acetaminophen hyoscyamine 0.125 mg disintegrating tablet RxNorm: 8318923 1-2 Tablet(s) PO Q8 as needed 12/14/2017 02/07/2018 Inactive Duragesic 75 mcg/hr transdermal patch RxNorm: 162975 1 Patch TD Q72H 12/06/2017 12/21/2017 Inactive fentanyl 100 mcg/hr transdermal patch RxNorm: 031313 1 Patch TD Q72H 12/06/2017 12/21/2017 Inactive hydrocodone 10 mg-acetaminophen 325 mg tablet RxNorm: 009054 2 Tablet(s) PO scheduled TID and 1 tab q 4 as needed 11/29/2017 12/19/2017 Inactive Not to exceed 3gm/24hr acetaminophen Duragesic 75 mcg/hr transdermal patch RxNorm: 943512 1 Patch TD Q72H 11/11/2017 12/05/2017 Inactive hydrocodone 10 mg-acetaminophen 325 mg tablet RxNorm: 937136 2 Tablet(s) PO scheduled TID and 1 tab q 4 as needed 11/09/2017 11/28/2017 Inactive Not to exceed 3gm/24hr acetaminophen Levemir FlexTouch U-100 Insulin 100 unit/mL (3 mL) subcutaneous pen RxNorm: 107450 8 Unit(s) SQ QHS 11/09/2017 01/06/2018 Inactive fentanyl 100 mcg/hr transdermal patch RxNorm: 094837 1 Patch TD Q72H 2017 12/05/2017 Inactive hyoscyamine 0.125 mg disintegrating tablet RxNorm: 5770605 1-2 Tablet(s) PO Q8 as needed 11/03/2017 12/13/2017 Inactive carvedilol 3.125 mg tablet RxNorm: 236873 GIVE 1 TABLET VIA PEG TUBE 2 TIMES A DAY 10/22/2017 01/19/2018 Inactive Generic For:COREG 3.125MG 10/22/2017 9:23:30 AM hydrocodone 10 mg-acetaminophen 325 mg tablet RxNorm: 331378 2 Tablet(s) PO scheduled TID and 1 tab q 4 as needed 10/22/2017 2017 Inactive Not to exceed 3gm/24hr acetaminophen fentanyl 100 mcg/hr transdermal patch RxNorm: 098220 1 Patch TD Q72H 10/20/2017 11/07/2017 Inactive Duragesic 75 mcg/hr transdermal patch RxNorm: 693953 1 Patch TD Q72H 10/20/2017 11/10/2017 Inactive lorazepam 0.5 mg tablet RxNorm: 168707 1 Tablet(s) PO BID and 1 tab q 6 hours prn 10/18/2017 No Stop Date Active baclofen 10 mg tablet RxNorm: 808608 TAKE 1 TABLET THREE TIMES DAILY VIA STOMACH TUBE 10/07/2017 12/26/2017 Inactive 10/07/2017 5:36:15 PM 10/07/2017 5:36:13 PM N O T I C E Last quantity doesn't match original quantity cranberry extract 500 mg tablet RxNorm: 2993787 1 Tablet(s) PO QAM 10/04/2017 01/31/2018 Inactive Cipro 500 mg tablet RxNorm: 252539 1 Tablet(s) PO BID 10/04/2017 10/03/2017 Inactive dc keflex hydrocodone 10 mg-acetaminophen 325 mg tablet RxNorm: 167507 2 Tablet(s) PO scheduled TID as needed 10/04/2017 10/21/2017 Inactive Not to exceed 3gm/24hr acetaminophen cranberry extract 500 mg tablet RxNorm: 6009102 1 Tablet(s) PO QAM 10/04/2017 10/03/2017 Inactive Cipro 500 mg tablet RxNorm: 247890 1 Tablet(s) PO BID 10/04/2017 10/10/2017 Inactive dc keflex Duragesic 75 mcg/hr transdermal patch RxNorm: 082269 1 Patch TD Q72H 09/20/2017 10/19/2017 Inactive fentanyl 100 mcg/hr transdermal patch RxNorm: 413189 1 Patch TD Q72H 09/20/2017 10/19/2017 Inactive hyoscyamine 0.125 mg disintegrating tablet RxNorm: 1515902 1 Tablet(s) PO TID and 1 Tablet Q4H prn increased secretions 09/15/2017 11/02/2017 Inactive hydrocodone 10 mg-acetaminophen 325 mg tablet RxNorm: 168545 2 Tablet(s) PO scheduled TID and 1-2 Tabs Q4H PRN pain 09/15/2017 10/03/2017 Inactive Not to exceed 3gm/24hr acetaminophen lorazepam 0.5 mg tablet RxNorm: 616073 1 Tablet(s) PO BID 09/15/2017 10/17/2017 Inactive Lexapro 10 mg tablet RxNorm: 104599 1 Tablet(s) PO daily 09/10/2017 09/14/2017 Inactive lisinopril 10 mg tablet RxNorm: 713519 1 Tablet(s) PO daily 09/09/2017 06/05/2018 Active Levemir FlexTouch U-100 Insulin 100 unit/mL (3 mL) subcutaneous pen RxNorm: 454949 10 Unit(s) daily 09/09/2017 09/15/2017 Inactive Duragesic 75 mcg/hr transdermal patch RxNorm: 406283 1 Patch TD Q72H 09/09/2017 09/19/2017 Inactive nystatin 100,000 unit/gram topical cream RxNorm: 393611 1 Gram(s) TOP TID until healed to gaulding 09/06/2017 01/03/2018 Inactive nystatin 100,000 unit/gram topical cream RxNorm: 273936 1 Gram(s) TOP TID until healed to gaulding 09/06/2017 09/05/2017 Inactive hydrocodone 10 mg-acetaminophen 325 mg tablet RxNorm: 196475 2 Tablet(s) PO scheduled TID as needed 08/31/2017 09/14/2017 Inactive Not to exceed 3gm/24hr acetaminophen fentanyl 100 mcg/hr transdermal patch RxNorm: 699196 1 Patch TD Q72H 08/24/2017 09/19/2017 Inactive fentanyl 50 mcg/hr transdermal patch RxNorm: 453131 1 Patch TD Q72H 08/24/2017 09/08/2017 Inactive fentanyl 25 mcg/hr transdermal patch RxNorm: 893560 1 Patch TD Q72H 08/24/2017 08/24/2017 Inactive hyoscyamine 0.125 mg disintegrating tablet RxNorm: 8726730 Tablet(s) 1-2 Tablet(s) PO Q8 as needed 08/23/2017 09/14/2017 Inactive hydrocodone 10 mg-acetaminophen 325 mg tablet RxNorm: 135773 1 Tablet(s) PO scheduled TID et Q6 hours as needed 08/18/2017 08/30/2017 Inactive Not to exceed 3gm/24hr acetaminophen hydrochlorothiazide 25 mg tablet RxNorm: 240010 GIVE 1 TABLET VIA PEG TUBE ONCE DAILY 08/17/2017 02/12/2018 Inactive Generic For:HYDRODIURIL 25 MG TABLET 08/17/2017 9:01:54 AM08/11/2017 10:12:00 AM lorazepam 0.5 mg tablet RxNorm: 750481 1/2 Tablet(s) PO BID 08/03/2017 09/14/2017 Inactive fentanyl 100 mcg/hr transdermal patch RxNorm: 528999 1 Patch TD Q72H 07/26/2017 08/23/2017 Inactive fentanyl 25 mcg/hr transdermal patch RxNorm: 927988 1 Patch TD Q72H 07/26/2017 08/23/2017 Inactive hydrocodone 10 mg-acetaminophen 325 mg tablet RxNorm: 321309 1 Tablet(s) PO scheduled TID et Q6 hours as needed 07/16/2017 08/14/2017 Inactive Not to exceed 3gm/24hr acetaminophen hyoscyamine 0.125 mg disintegrating tablet RxNorm: 3302634 Tablet(s) 1-2 Tablet(s) PO Q8 as needed 07/13/2017 08/01/2017 Inactive baclofen 10 mg tablet RxNorm: 812538 TAKE 1 TABLET THREE TIMES DAILY VIA STOMACH TUBE 07/12/2017 10/06/2017 Inactive 07/12/2017 9:04:08 AM N O T I C E Last quantity doesn't match original quantity lorazepam 0.5 mg tablet RxNorm: 307683 1/2 Tablet(s) PO BID 07/02/2017 08/02/2017 Inactive fentanyl 100 mcg/hr transdermal patch RxNorm: 240511 1 Patch TD Q72H 06/28/2017 07/25/2017 Inactive fentanyl 25 mcg/hr transdermal patch RxNorm: 877319 1 Patch TD Q72H 06/28/2017 07/25/2017 Inactive hyoscyamine 0.125 mg disintegrating tablet RxNorm: 0323447 Tablet(s) 1-2 Tablet(s) PO Q8 as needed 06/03/2017 06/22/2017 Inactive fentanyl 25 mcg/hr transdermal patch RxNorm: 983647 1 Patch TD Q72H 05/26/2017 06/24/2017 Inactive Levemir FlexTouch U-100 Insulin 100 unit/mL (3 mL) subcutaneous pen RxNorm: 760024 20 Unit(s) SQ BID 05/26/2017 09/08/2017 Inactive fentanyl 100 mcg/hr transdermal patch RxNorm: 111385 1 Patch TD Q72H 05/26/2017 06/24/2017 Inactive hydrocodone 10 mg-acetaminophen 325 mg tablet RxNorm: 331182 1 Tablet(s) PO scheduled BID et Q6 hours as needed 05/12/2017 05/11/2017 Inactive hydrocodone 10 mg-acetaminophen 325 mg tablet RxNorm: 708631 1 Tablet(s) PO scheduled TID et Q6 hours as needed 05/12/2017 06/10/2017 Inactive Not to exceed 3gm/24hr acetaminophen docusate sodium 100 mg tablet RxNorm: 0368107 1 Tablet(s) PO BID as needed if no bowel movement 05/10/2017 05/09/2017 Inactive lisinopril 20 mg tablet RxNorm: 701093 1 Tablet(s) PO daily 05/10/2017 09/08/2017 Inactive docusate sodium 100 mg tablet RxNorm: 4433492 1 Tablet(s) PO BID as needed if no bowel movement 05/10/2017 09/14/2017 Inactive fentanyl 25 mcg/hr transdermal patch RxNorm: 367554 1 Patch TD Q72H 05/03/2017 05/25/2017 Inactive lorazepam 0.5 mg tablet RxNorm: 765276 1/2 Tablet(s) PO BID 05/03/2017 07/01/2017 Inactive fentanyl 100 mcg/hr transdermal patch RxNorm: 103198 1 Patch TD Q72H 04/27/2017 05/25/2017 Inactive carvedilol 3.125 mg tablet RxNorm: 351533 Tablet(s) GIVE 1 TABLET VIA PEG TUBE DAILY 04/15/2017 10/21/2017 Inactive Levemir FlexTouch 100 unit/mL (3 mL) subcutaneous insulin pen RxNorm: 558048 10 Unit(s) SQ BID 04/15/2017 2017 Inactive hyoscyamine 0.125 mg disintegrating tablet RxNorm: 8361220 1-2 Tablet(s) PO Q8 as needed 04/14/2017 05/03/2017 Inactive hydrocodone 10 mg-acetaminophen 325 mg tablet RxNorm: 784683 1 Tablet(s) PO scheduled BID et Q6 hours as needed 04/13/2017 05/02/2017 Inactive baclofen 10 mg tablet RxNorm: 911500 TAKE 1 TABLET THREE TIMES DAILY VIA STOMACH TUBE 04/08/2017 05/22/2017 Inactive 04/08/2017 9:32:07 AM fentanyl 25 mcg/hr transdermal patch RxNorm: 339141 1 Patch TD Q72H 04/05/2017 05/02/2017 Inactive lidocaine 10 mg/mL (1 %) injection solution RxNorm: 7823899 1 Milliliter(s) Inj daily Mix with rocephin 03/31/2017 03/30/2017 Inactive Pt resides at [facility] lidocaine 10 mg/mL (1 %) injection solution RxNorm: 8510220 1 Milliliter(s) Inj daily Mix with rocephin 03/31/2017 04/06/2017 Inactive Pt resides at [facility] fentanyl 100 mcg/hr transdermal patch RxNorm: 693514 1 Patch TD Q72H 03/29/2017 04/26/2017 Inactive nystatin 100,000 unit/gram topical powder RxNorm: 393705 APPLY UNDER BREASTS TWICE DAILY FOR YEAST SKIN INFECTION AND APPLY TO UNDERARM AND ABDOMINAL FOLDS AND PERIAREA TWICE DAILY 03/29/2017 03/28/2017 Inactive 03/27/2017 9:12:50 AM nystatin 100,000 unit/gram topical powder RxNorm: 718427 APPLY UNDER BREASTS TWICE DAILY FOR YEAST SKIN INFECTION AND APPLY TO UNDERARM AND ABDOMINAL FOLDS AND PERIAREA TWICE DAILY 03/29/2017 09/14/2017 Inactive 03/29/2017 9:42:55 AM03/27/2017 9:12:50 AM hyoscyamine 0.125 mg disintegrating tablet RxNorm: 7370706 1-2 Tablet(s) PO Q8 as needed 03/08/2017 03/27/2017 Inactive fentanyl 25 mcg/hr transdermal patch RxNorm: 683574 1 Patch TD Q72H 03/02/2017 03/31/2017 Inactive hydrocodone 10 mg-acetaminophen 325 mg tablet RxNorm: 625792 1 Tablet(s) PO scheduled BID et Q6 hours as needed 02/17/2017 03/18/2017 Inactive fentanyl 100 mcg/hr transdermal patch RxNorm: 371516 1 Patch TD Q72H 02/17/2017 03/18/2017 Inactive Lexapro 10 mg tablet RxNorm: 856422 1 Tablet(s) PO daily 02/05/2017 04/14/2017 Inactive Lexapro 10 mg tablet RxNorm: 560967 1 Tablet(s) PO daily 02/05/2017 02/04/2017 Inactive fentanyl 25 mcg/hr transdermal patch RxNorm: 514270 1 Patch TD Q72H 02/04/2017 03/01/2017 Inactive cyanocobalamin (vit B-12) 1,000 mcg tablet RxNorm: 572617 1 Tablet(s) PO daily 01/18/2017 12/13/2017 Inactive hyoscyamine 0.125 mg disintegrating tablet RxNorm: 7884937 Tablet(s) 1-2 Tablet(s) PO Q8 as needed 01/18/2017 02/06/2017 Inactive baclofen 10 mg tablet RxNorm: 628523 TAKE 1 TABLET THREE TIMES DAILY VIA STOMACH TUBE 01/04/2017 02/17/2017 Inactive 01/04/2017 9:25:18 AM fentanyl 100 mcg/hr transdermal patch RxNorm: 556308 1 Patch TD Q72H 12/25/2016 01/23/2017 Inactive hydrochlorothiazide 25 mg tablet RxNorm: 001702 Tablet(s) GIVE 1 TABLET VIA PEG TUBE ONCE A DAY 12/14/2016 07/11/2017 Inactive fentanyl 100 mcg/hr transdermal patch RxNorm: 675250 1 Patch TD Q72H 11/25/2016 12/24/2016 Inactive hyoscyamine 0.125 mg disintegrating tablet RxNorm: 6302506 Tablet(s) 1-2 Tablet(s) PO Q8 as needed 11/25/2016 12/14/2016 Inactive nystatin 100,000 unit/gram topical powder RxNorm: 827307 APPLY UNDER BREASTS TWICE DAILY FOR YEAST SKIN INFECTION AND APPLY TO UNDERARM AND ABDOMINAL FOLDS AND PERIAREA TWICE DAILY 11/24/2016 01/22/2017 Inactive 11/24/2016 9:34:02 AM hydrocodone 10 mg-acetaminophen 325 mg tablet RxNorm: 218117 1 Tablet(s) PO scheduled BID et Q6 hours as needed 11/02/2016 12/01/2016 Inactive cyanocobalamin (vit B-12) 1,000 mcg tablet RxNorm: 434695 1 Tablet(s) PO daily 11/02/2016 01/17/2017 Inactive hyoscyamine 0.125 mg disintegrating tablet RxNorm: 0581863 1-2 Tablet(s) PO Q8 as needed 10/19/2016 11/24/2016 Inactive fentanyl 100 mcg/hr transdermal patch RxNorm: 394076 1 Patch TD Q72H 10/13/2016 11/11/2016 Inactive hydrocodone 10 mg-acetaminophen 325 mg tablet RxNorm: 251151 1 Tablet(s) PO scheduled BID et Q6 hours as needed 10/05/2016 11/01/2016 Inactive baclofen 10 mg tablet RxNorm: 678910 TAKE 1 TABLET THREE TIMES DAILY VIA STOMACH TUBE 10/01/2016 11/14/2016 Inactive 10/01/2016 9:24:37 AM carvedilol 3.125 mg tablet RxNorm: 716367 GIVE 1 TABLET VIA PEG TUBE 2 TIMES A DAY 09/30/2016 12/28/2016 Inactive Generic For:COREG 3.125MG 09/30/2016 1:12:28 PM09/25/2016 9:06:11 AM Probiotic Blend 2 million cell-50 mg capsule RxNorm: 1 Capsule(s) PO BID 09/17/2016 09/23/2016 Inactive Keflex 500 mg capsule RxNorm: 932842 1 Capsule(s) PO TID 09/17/2016 09/23/2016 Inactive hyoscyamine 0.125 mg/5 mL oral elixir RxNorm: 2498651 5 Milliliter(s) PO TID 09/08/2016 09/17/2016 Inactive hyoscyamine 0.125 mg/5 mL oral elixir RxNorm: 3792200 5 Milliliter(s) PO TID 09/08/2016 09/07/2016 Inactive hyoscyamine 0.125 mg disintegrating tablet RxNorm: 6622712 1-2 Tablet(s) PO Q8 as needed 09/07/2016 10/18/2016 Inactive fentanyl 100 mcg/hr transdermal patch RxNorm: 051439 1 Patch TD Q72H 09/01/2016 09/30/2016 Inactive ranitidine 150 mg tablet RxNorm: 626059 1 Tablet(s) PO BID 08/25/2016 No Stop Date Active hydrocodone 10 mg-acetaminophen 325 mg tablet RxNorm: 329216 1 Tablet(s) PO scheduled BID et Q6 hours as needed 08/24/2016 09/22/2016 Inactive cyanocobalamin (vit B-12) 1,000 mcg tablet RxNorm: 634568 1 Tablet(s) PO daily 08/12/2016 11/01/2016 Inactive cyanocobalamin (vit B-12) 1,000 mcg tablet RxNorm: 771396 1 Tablet(s) PO daily 08/12/2016 08/11/2016 Inactive hydrocodone 10 mg-acetaminophen 325 mg tablet RxNorm: 993715 1-2 Tablet(s) PO Q6 as needed 08/03/2016 08/17/2016 Inactive fentanyl 100 mcg/hr transdermal patch RxNorm: 712368 1 Patch TD Q72H 08/03/2016 08/31/2016 Inactive nystatin 100,000 unit/gram topical powder RxNorm: 622814 APPLY UNDER BREASTS TWICE DAILY FOR YEAST SKIN INFECTION AND APPLY TO UNDERARM AND ABDOMINAL FOLDS AND PERIAREA TWICE DAILY 07/17/2016 09/14/2016 Inactive 07/17/2016 3:56:54 PM fentanyl 100 mcg/hr transdermal patch RxNorm: 550910 1 Patch TD Q72H 07/15/2016 08/02/2016 Inactive lisinopril 20 mg tablet RxNorm: 360140 1 Tablet(s) PO daily 07/02/2016 03/28/2017 Inactive hydrocodone 10 mg-acetaminophen 325 mg tablet RxNorm: 126260 1-2 Tablet(s) PO Q6 as needed 07/01/2016 07/15/2016 Inactive Xarelto 20 mg tablet RxNorm: 2881140 Tablet(s) TAKE 1 TABLET VIA PEG TUBE AT BEDTIME 06/19/2016 04/14/2017 Inactive fentanyl 100 mcg/hr transdermal patch RxNorm: 344108 1 Patch TD Q72H 06/17/2016 07/14/2016 Inactive nystatin 100,000 unit/gram topical powder RxNorm: 568736 APPLY TO UNDER BREASTS TWICE DAILY FOR YEAST SKIN INFECTION AND APPLY TO UNDERARM AND ABDOMINAL FOLDS AND PERIAREA TWICE DAILY 06/15/2016 07/16/2016 Inactive Generic For:MYCOSTATIN 100,000 UNITS/GM PW 06/15/2016 12:28:26 PM fentanyl 100 mcg/hr transdermal patch RxNorm: 155686 1 Patch TD Q72H 06/05/2016 06/16/2016 Inactive hydrocodone 10 mg-acetaminophen 325 mg tablet RxNorm: 019993 1-2 Tablet(s) PO Q6 as needed 06/02/2016 06/16/2016 Inactive Probiotic Blend 2 million cell-50 mg capsule RxNorm: 1 Capsule(s) PO BID 05/13/2016 05/19/2016 Inactive nitrofurantoin 100 mg capsule RxNorm: 404933 1 Capsule(s) PO BID 05/13/2016 05/19/2016 Inactive nitrofurantoin 100 mg capsule RxNorm: 756433 1 Capsule(s) PO BID 05/13/2016 05/12/2016 Inactive fentanyl 75 mcg/hr transdermal patch RxNorm: 585787 1 Patch TD Q72H 05/13/2016 06/04/2016 Inactive Keflex 500 mg capsule RxNorm: 367872 1 Capsule(s) PO TID 05/07/2016 05/13/2016 Inactive Patient at [facility] Keflex 500 mg capsule RxNorm: 014894 1 Capsule(s) PO TID 05/07/2016 05/06/2016 Inactive hydrocodone 10 mg-acetaminophen 325 mg tablet RxNorm: 086696 1-2 Tablet(s) PO Q6 as needed 05/04/2016 06/01/2016 Inactive hydrochlorothiazide 25 mg tablet RxNorm: 556355 Tablet(s) GIVE 1 TABLET VIA PEG TUBE ONCE A DAY 04/29/2016 11/24/2016 Inactive hydrochlorothiazide 25 mg tablet RxNorm: 763286 GIVE 1 TABLET VIA PEG TUBE ONCE A DAY 04/22/2016 04/28/2016 Inactive Generic For:HYDRODIURIL 25 MG TABLET refill request fentanyl 75 mcg/hr transdermal patch RxNorm: 575079 1 Patch TD Q72H 04/17/2016 05/12/2016 Inactive Xarelto 20 mg tablet RxNorm: 9484481 TAKE 1 TABLET VIA PEG TUBE AT BEDTIME 04/16/2016 06/14/2016 Inactive 04/16/2016 9:08:52 AM citalopram 40 mg tablet RxNorm: 468415 1 Tablet(s) PO daily 04/02/2016 02/25/2017 Inactive citalopram 40 mg tablet RxNorm: 730567 1 Tablet(s) PO daily 03/27/2016 04/01/2016 Inactive hydrocodone 10 mg-acetaminophen 325 mg tablet RxNorm: 476699 1-2 Tablet(s) PO Q6 as needed 03/27/2016 04/25/2016 Inactive fentanyl 75 mcg/hr transdermal patch RxNorm: 053750 1 Patch TD Q72H 03/18/2016 04/16/2016 Inactive hydrocodone 10 mg-acetaminophen 325 mg tablet RxNorm: 635159 1-2 Tablet(s) PO Q6 as needed 03/11/2016 03/26/2016 Inactive citalopram 40 mg tablet RxNorm: 147298 1 Tablet(s) PO daily 03/04/2016 03/26/2016 Inactive Levemir FlexTouch U-100 Insulin 100 unit/mL (3 mL) subcutaneous pen RxNorm: 621760 20 Unit(s) SQ BID 03/02/2016 09/27/2016 Inactive lisinopril 20 mg tablet RxNorm: 751744 1 Tablet(s) PO daily 02/25/2016 07/01/2016 Inactive Ativan 0.5 mg tablet RxNorm: 891327 1 Tablet(s) PO Q4H as needed 02/18/2016 04/14/2017 Inactive Xarelto 20 mg tablet RxNorm: 0047501 TAKE 1 TABLET VIA PEG TUBE AT BEDTIME 02/12/2016 04/11/2016 Inactive 02/12/2016 9:08:22 AM hydrocodone 10 mg-acetaminophen 325 mg tablet RxNorm: 742666 1-2 Tablet(s) PO Q6 as needed 02/12/2016 03/10/2016 Inactive fentanyl 75 mcg/hr transdermal patch RxNorm: 890515 1 Patch TD Q72H 02/11/2016 03/11/2016 Inactive citalopram 20 mg tablet RxNorm: 803092 1 Tablet(s) PO daily 01/28/2016 03/03/2016 Inactive fentanyl 75 mcg/hr transdermal patch RxNorm: 888355 1 TD Q72H 01/17/2016 02/10/2016 Inactive hydrocodone 10 mg-acetaminophen 325 mg tablet RxNorm: 768926 1-2 Tablet(s) PO Q6 as needed 01/07/2016 02/05/2016 Inactive fentanyl 50 mcg/hr transdermal patch RxNorm: 772868 1 TD Q72H 01/01/2016 01/16/2016 Inactive fentanyl 50 mcg/hr transdermal patch RxNorm: 134261 1 TD q 3 days 12/26/2015 12/31/2015 Inactive Xarelto 20 mg tablet RxNorm: 5768201 TAKE 1 TABLET VIA PEG TUBE AT BEDTIME 12/17/2015 02/11/2016 Inactive 12/16/2015 3:27:57 PM12/14/2015 9:45:17 AM hydrocodone 10 mg-acetaminophen 325 mg tablet RxNorm: 775530 1-2 Tablet(s) PO Q6 as needed 12/06/2015 01/04/2016 Inactive fentanyl 50 mcg/hr transdermal patch RxNorm: 556803 1 TD q 3 days 12/06/2015 12/25/2015 Inactive fentanyl 25 mcg/hr transdermal patch RxNorm: 742906 1 TD q 3 days 11/18/2015 12/05/2015 Inactive Zithromax Z-Eliu 250 mg tablet RxNorm: 127780 1 Tablet(s) PO UD 10/09/2015 02/26/2016 Inactive z pack as directed- please write out instructions- pt at [facility] nystatin 100,000 unit/gram topical powder RxNorm: 460315 APPLY TO UNDER BREASTS TWICE DAILY FOR YEAST SKIN INFECTION AND APPLY TO UNDERARM AND ABDOMINAL FOLDS AND PERIAREA TWICE DAILY 10/07/2015 12/05/2015 Inactive Generic For:MYCOSTATIN 100,000 UNITS/GM PW 10/05/2015 12:07:35 PM fentanyl 25 mcg/hr transdermal patch RxNorm: 429946 1 TD q 3 days 10/03/2015 11/01/2015 Inactive fentanyl 25 mcg/hr transdermal patch RxNorm: 899982 1 TD q 3 days 09/27/2015 10/02/2015 Inactive fentanyl 25 mcg/hr transdermal patch RxNorm: 335265 1 TD q 3 days 09/17/2015 09/26/2015 Inactive fentanyl 25 mcg/hr transdermal patch RxNorm: 250703 1 TD q 3 days 08/30/2015 09/16/2015 Inactive hydrocodone 5 mg-acetaminophen 325 mg tablet RxNorm: 013069 1 Tablet(s) PO Q6 as needed 08/30/2015 09/28/2015 Inactive Diflucan 100 mg tablet RxNorm: 837475 1 Tablet(s) Miscellaneous per peg daily 07/29/2015 08/04/2015 Inactive fentanyl 25 mcg/hr transdermal patch RxNorm: 192925 1 TD q 3 days 07/18/2015 08/29/2015 Inactive hydrocodone 5 mg-acetaminophen 325 mg tablet RxNorm: 928265 1 Tablet(s) PO Q6 as needed 07/18/2015 08/29/2015 Inactive Diflucan 100 mg tablet RxNorm: 272350 1 Tablet(s) Miscellaneous per peg daily 06/17/2015 06/23/2015 Inactive Senna-S 8.6 mg-50 mg tablet RxNorm: 266649 1 Tablet(s) PO daily as needed constipation No Start Date Active Dulcolax (bisacodyl) 10 mg rectal suppository RxNorm: 594303 1 Suppository RTL daily as needed constipation No Start Date Active polyethylene glycol 3350 17 gram/dose oral powder RxNorm: 720704 17 Gram(s) PO daily as needed constipation No Start Date Active baclofen 10 mg tablet RxNorm: 257092 1 Tablet(s) PO TID No Start Date 09/30/2016 Inactive Ativan 0.5 mg tablet RxNorm: 013446 1 Tablet(s) PO Q4H as needed No Start Date 02/17/2016 Inactive ranitidine 150 mg tablet RxNorm: 060039 1 Tablet(s) PO daily No Start Date 08/24/2016 Inactive carvedilol 3.125 mg tablet RxNorm: 618148 1 Tablet(s) PO daily No Start Date 09/29/2016 Inactive citalopram 40 mg tablet RxNorm: 836628 1 Tablet(s) PO daily No Start Date 01/27/2016 Inactive Probiotic Blend oral RxNorm: oral No Start Date 05/12/2016 Inactive hydrochlorothiazide 25 mg tablet RxNorm: 162270 1 Tablet(s) PO daily No Start Date 04/21/2016 Inactive albuterol sulfate concentrate 5 mg/mL(0.5 %) solution for nebulization RxNorm: 974999 1 Vial INH daily as needed congestion No Start Date 03/17/2018 Inactive Levemir FlexTouch 100 unit/mL (3 mL) subcutaneous insulin pen RxNorm: 278036 10 Unit(s) SQ BID No Start Date 03/01/2016 Inactive Zithromax Z-Eliu 250 mg tablet RxNorm: 929361 1 Tablet(s) PO UD No Start Date 10/08/2015 Inactive z pack as directed- please write out instructions- pt at [facility] nystatin 100,000 unit/gram topical powder RxNorm: 354962 Gram(s) TOP BID as needed No Start Date 10/06/2015 Inactive pravastatin 40 mg tablet RxNorm: 655294 Tablet(s) PO daily No Start Date 04/14/2017 Inactive lorazepam 0.5 mg tablet RxNorm: 513966 1/2 Tablet(s) PO BID No Start Date 05/02/2017 Inactive Xarelto 20 mg tablet RxNorm: 0438943 1 Tablet(s) PO daily No Start Date 12/16/2015 Inactive fentanyl 25 mcg/hr transdermal patch RxNorm: 176408 1 TD q 3 days No Start Date 07/17/2015 Inactive lisinopril 20 mg tablet RxNorm: 409133 1 Tablet(s) PO daily No Start Date 02/24/2016 Inactive hydrocodone 5 mg-acetaminophen 325 mg tablet RxNorm: 365228 1 Tablet(s) PO Q6 as needed No Start Date 07/17/2015 Inactive citalopram 40 mg tablet RxNorm: 062036 1 Tablet(s) PO daily No Start Date 03/03/2016 Inactive hyoscyamine 0.125 mg disintegrating tablet RxNorm: 3363799 1-2 Tablet(s) PO Q8 as needed No [...] 30.7 pg 02/14/2018 Cbc With Differential Ord2 Moca% 7.4 % 02/14/2018 Cbc With Differential Ord2 [...] 2.14 K/ul 02/14/2018 Cbc With Differential Ord2 Moca ABS# 0.5 K/ul 02/14/2018 Cbc With Differential Ord2 Eos ABS# 0.3 K/ul 02/14/2018 Cbc With Differential Ord2 Baso ABS# 0.0 K/ul 02/14/2018 Comp Metabolic Oxe298 NA 142 mEq/L 02/14/2018 Comp Metabolic Xvr052 K 4.5 mEq/L 02/14/2018 Comp Metabolic Eza696 CL 97 mEq/L 02/14/2018 Comp Metabolic Ube678 CO2 41.0 mEq/L 02/14/2018 Comp Metabolic Mwf345 ANION GAP 9 02/14/2018 Comp Metabolic Wyi490 GLUCOSE 111 mg/dL 02/14/2018 Comp Metabolic Emd493 Creat 0.6 mg/dL 02/14/2018 Comp Metabolic Ouj105 eGFR 108 ml/min/1.73m2 02/14/2018 Comp Metabolic Syb809 BUN 32 mg/dL 02/14/2018 Comp Metabolic Giu897 B/C Ratio 54.2 Ratio 02/14/2018 Comp Metabolic Bvf941 CALCIUM 8.9 mg/dL 02/14/2018 Comp Metabolic Xkr169 ALK PHOS 81 U/L 02/14/2018 Comp Metabolic Mow434 AST(SGOT) 14 U/L 02/14/2018 Comp Metabolic Flp746 ALT(SGPT) 11 U/L 02/14/2018 Comp Metabolic Kpy329 BILI T 0.3 mg/dL 02/14/2018 Comp Metabolic Bur264 ALBUMIN 3.4 g/dL 02/14/2018 Comp Metabolic Ywl352 TPRO 6.3 g/dL 02/14/2018 Comp Metabolic Hcd291 GLOB 2.9 g/dL 02/14/2018 Comp Metabolic Qll368 A/G Ratio 1.2 Ratio 02/14/2018 Comp Metabolic Asi004 Osmo 291 mOsmo 02/14/2018 %Hba1C Vfr800 % HbA1c 95966- 6 5.5 % 02/14/2018 %Hba1C Mpi044 Gluc Ave 111 mg/dL 02/14/2018 Prealbumin 979769 PREALBUMIN 27 mg/dL 11/24/2017 %Hba1C Cac771 % HbA1c 56575- 6 5.5 % 11/04/2017 %Hba1C Loo483 Gluc Ave 111 mg/dL 11/04/2017 Culture Urine [id number] URINE CULTURE SEE NOTES 10/04/2017 Culture Urine [id number] Continued Results 10/04/2017 Urine Culture Ucult Complete [...] Ord28 U-Com Culture to follow 10/01/2017 B12 Jmb977 B12 >1500.00 pg/ml 02/19/2017 Cbc With Differential [...] 31.5 pg 02/02/2017 Cbc With Differential Ord2 Moca% 8.3 % 02/02/2017 Cbc With Differential Ord2 [...] 2.28 K/ul 02/02/2017 Cbc With Differential Ord2 Moca ABS# 0.6 K/ul 02/02/2017 Cbc With Differential Ord2 Eos ABS# 0.4 K/ul 02/02/2017 Cbc With Differential Ord2 Baso ABS# 0.0 K/ul 02/02/2017 %Hba1C Zvw431 % HbA1c 15240- 6 5.2 % 02/02/2017 %Hba1C Bce290 Gluc Ave 103 mg/dL 02/02/2017 Comp Metabolic Osf076 NA 138 mEq/L 02/02/2017 Comp Metabolic Wvp885 K 4.5 mEq/L 02/02/2017 Comp Metabolic Mij780 CL 98 mEq/L 02/02/2017 Comp Metabolic Mkq168 CO2 37.0 mEq/L 02/02/2017 Comp Metabolic Boq053 ANION GAP 8 02/02/2017 Comp Metabolic Zwc358 GLUCOSE 94 mg/dL 02/02/2017 Comp Metabolic Xfr271 Creat 0.7 mg/dL 02/02/2017 Comp Metabolic Hku159 eGFR 88 ml/min/1.73m2 02/02/2017 Comp Metabolic Tex517 BUN 36 mg/dL 02/02/2017 Comp Metabolic Uef740 B/C Ratio 50.7 Ratio 02/02/2017 Comp Metabolic Ryj047 CALCIUM 9.0 mg/dL 02/02/2017 Comp Metabolic Chd330 ALK PHOS 78 U/L 02/02/2017 Comp Metabolic Ybo145 AST(SGOT) 22 U/L 02/02/2017 Comp Metabolic Ovx689 ALT(SGPT) 28 U/L 02/02/2017 Comp Metabolic Kpb809 BILI T 0.3 mg/dL 02/02/2017 Comp Metabolic Bni937 ALBUMIN 3.3 g/dL 02/02/2017 Comp Metabolic Cxm260 TPRO 5.9 g/dL 02/02/2017 Comp Metabolic Fqp958 GLOB 2.6 g/dL 02/02/2017 Comp Metabolic Ccs215 A/G Ratio 1.3 Ratio 02/02/2017 Comp Metabolic Eyh727 Osmo 284 mOsmo 02/02/2017 %Hba1C Aia045 % HbA1c 99934- 6 5.0 % 10/29/2016 %Hba1C Nbt436 Gluc Ave 97 mg/dL 10/29/2016 Culture Urine [id number] URINE CULTURE SEE NOTES 09/21/2016 Culture Urine [id number] Continued Results 09/21/2016 Urine Culture Ucult Complete [...] 32.4 pg 07/30/2016 Cbc With Differential Ord2 Moca% 7.2 % 07/30/2016 Cbc With Differential Ord2 [...] 2.69 K/ul 07/30/2016 Cbc With Differential Ord2 Moca ABS# 0.5 K/ul 07/30/2016 Cbc With Differential Ord2 Eos ABS# 0.5 K/ul 07/30/2016 Cbc With Differential Ord2 Baso ABS# 0.0 K/ul 07/30/2016 Comp Metabolic Vzj346 NA 141 mEq/L 07/30/2016 Comp Metabolic Kfv766 K 4.3 mEq/L 07/30/2016 Comp Metabolic Rzr316 CL 100 mEq/L 07/30/2016 Comp Metabolic Wyb257 CO2 33.0 mEq/L 07/30/2016 Comp Metabolic Tmu671 ANION GAP 12 07/30/2016 Comp Metabolic Dyw026 GLUCOSE 64 mg/dL 07/30/2016 Comp Metabolic Gdm340 Creat 0.5 mg/dL 07/30/2016 Comp Metabolic Bqg832 eGFR 126 ml/min/1.73m2 07/30/2016 Comp Metabolic Ygr527 BUN 25 mg/dL 07/30/2016 Comp Metabolic Yxf980 B/C Ratio 48.1 Ratio 07/30/2016 Comp Metabolic Mdo328 CALCIUM 8.9 mg/dL 07/30/2016 Comp Metabolic Mso409 ALK PHOS 90 U/L 07/30/2016 Comp Metabolic Ncr343 AST(SGOT) 22 U/L 07/30/2016 Comp Metabolic Puy861 ALT(SGPT) 36 U/L 07/30/2016 Comp Metabolic Dnq263 BILI T 0.3 mg/dL 07/30/2016 Comp Metabolic Wox620 ALBUMIN 3.4 g/dL 07/30/2016 Comp Metabolic Tus368 TPRO 6.0 g/dL 07/30/2016 Comp Metabolic Kkc291 GLOB 2.7 g/dL 07/30/2016 Comp Metabolic Wys771 A/G Ratio 1.3 Ratio 07/30/2016 Comp Metabolic Qkj784 Osmo 284 mOsmo 07/30/2016 A1C Frequency Idc126 A1CF 23958-2 Last A1C performed at [facility] lab on: 05-12-2016 07/30/2016 %Hba1C Sqw067 % HbA1c 92432- 6 5.2 % 05/12/2016 %Hba1C Men972 Gluc Ave 103 mg/dL 05/12/2016 Culture Urine [id number] URINE CULTURE SEE NOTES 05/11/2016 Urine Culture [...] U-Com Culture to follow 05/06/2016 Culture Urine [id number] URINE CULTURE SEE NOTES 03/17/2016 Culture Urine [id number] Continued Results 03/17/2016 Urine Culture Ucult Complete [...] 32.0 pg 02/11/2016 Cbc With Differential Ord2 Moca% 9.1 % 02/11/2016 Cbc With Differential Ord2 [...] 2.59 K/ul 02/11/2016 Cbc With Differential Ord2 Moca ABS# 0.6 K/ul 02/11/2016 Cbc With Differential Ord2 Eos ABS# 0.3 K/ul 02/11/2016 Cbc With Differential Ord2 Baso ABS# 0.0 K/ul 02/11/2016 Comp Metabolic Olz633 NA 137 mEq/L 02/11/2016 Comp Metabolic Plr132 K 4.4 mEq/L 02/11/2016 Comp Metabolic Nxb654 CL 100 mEq/L 02/11/2016 Comp Metabolic Lqx051 CO2 25.0 mEq/L 02/11/2016 Comp Metabolic Yrq766 ANION GAP 16 02/11/2016 Comp Metabolic Kyb156 GLUCOSE 99 mg/dL 02/11/2016 Comp Metabolic Zjb875 Creat 0.6 mg/dL 02/11/2016 Comp Metabolic Csk561 eGFR 99 ml/min/1.73m2 02/11/2016 Comp Metabolic Bsx832 BUN 27 mg/dL 02/11/2016 Comp Metabolic Aun068 B/C Ratio 42.2 Ratio 02/11/2016 Comp Metabolic Ilm381 CALCIUM 9.2 mg/dL 02/11/2016 Comp Metabolic Yfw181 ALK PHOS 74 U/L 02/11/2016 Comp Metabolic Iet550 AST(SGOT) 24 U/L 02/11/2016 Comp Metabolic Gnp425 ALT(SGPT) 26 U/L 02/11/2016 Comp Metabolic Cod422 BILI T 0.5 mg/dL 02/11/2016 Comp Metabolic Gjs679 ALBUMIN 3.5 g/dL 02/11/2016 Comp Metabolic Zoo381 TPRO 6.2 g/dL 02/11/2016 Comp Metabolic Yol797 GLOB 2.7 g/dL 02/11/2016 Comp Metabolic Eyi422 A/G Ratio 1.3 Ratio 02/11/2016 Comp Metabolic Ukt318 Osmo 279 mOsmo 02/11/2016 Review of Systems [...] 1: 128/86 Code: 8480-6 BMI: 31.4 Code: 88579-7 Heart Rate 1: 72 bpm Height: 5'1" Weight: 166 lbs 06/17/2015 Blood Pressure 1: 110/78 Code: 8480-6 BMI: 33.3 Code: 30576-4 Heart Rate 1: 74 bpm Height: 5'1" [...] Encounters Encounter Performer Location Codes Date ( 44734 EST. PATIENT, LEVEL IV Diagnosis: Cough[ICD10: R05] Diagnosis: Pneumonia, unspecified organism[ICD10: J18.9] Diagnosis: Pain in right knee[ICD10: M25.561] Carlyn Everett MD, [facility] CPT- 4: 15423 03/18/2018 ([id number]) 17526 EST. PATIENT, LEVEL IV Diagnosis: Type 2 diabetes mellitus without complications[ICD10: E11.9] Diagnosis: Essential (primary) hypertension[ICD10: I10] Diagnosis: Chronic pain syndrome[ICD10: G89.4] Carlyn Everett MD, [facility] CPT-4: 66398 01/07/2018 ([id number]) 07245 EST. PATIENT, LEVEL IV Diagnosis: Essential (primary) hypertension[ICD10: I10] Diagnosis: Type 2 diabetes mellitus without complications[ICD10: E11.9] Carlyn Everett MD, [facility] CPT-4: 60574 2017 [id number]) 59499 EST. PATIENT, LEVEL IV Diagnosis: Type 2 diabetes mellitus with hyperglycemia[ICD10: E11.65] Diagnosis: Essential (primary) hypertension[ICD10: I10] Diagnosis: Pain in left shoulder[ICD10: M25.512] Diagnosis: Pain in right shoulder[ICD10: M25.511] Diagnosis: Pain in left knee[ICD10: M25.562] Diagnosis: Pain in right knee[ICD10: M25.561] Vonda Everett MD, [facility] CPT- 4: 67961 09/09/2017 47155 EST. PATIENT, LEVEL IV Diagnosis: Essential (primary) hypertension[ICD10: I10] Diagnosis: Type 2 diabetes mellitus with hyperglycemia[ICD10: E11.65] Diagnosis: Low back pain[ICD10: M54.5] Sunitha Everett MD, [facility] CPT-4: 53522 06/08/2017 ([id number]) 15536 EST. PATIENT, LEVEL IV Diagnosis: Essential (primary) hypertension[ICD10: I10] Diagnosis: Type 2 diabetes mellitus with hyperglycemia[ICD10: E11.65] Diagnosis: Low back pain[ICD10: M54.5] Sunitha Everett MD, [facility] CPT-4: 80045 04/15/2017 ([id number]) 95533 EST. PATIENT, LEVEL IV Diagnosis: Essential (primary) hypertension[ICD10: I10] Diagnosis: Type 2 diabetes mellitus with hyperglycemia[ICD10: E11.65] Diagnosis: Low back pain[ICD10: M54.5] Vonda Everett MD, [facility] CPT-4: 28212 02/16/2017 04687 EST. 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 CPT-4: 71986 11/09/2016 ([id number]) 20403 EST. 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 CPT- 4: 28798 06/17/2015 Plan of Care Planned Activity Notes Codes Status Date Visit Plan: Pneumonia - Pt has been diagnosed with pneumonia by physical exam. A chest xray has been ordered as have antibiotics. The pt is aware of the diagnosis and the need for acute treatment of this illness. Right knee pain -xray knee-rx for voltaren gel 03/18/2018 Appointment: Carlyn Higginbotham WPtel: [phone] [phone] [place] (30 min) Complex 03/18/2018 Patient Education: Patient Medication Summary Completed 03/18/2018 Appointment: Carlyn Higginbotham WPtel: [phone] [phone] [place] (30 min) Complex 03/17/2018 Appointment: Carlyn Higginbotham WPtel: [phone] [phone] [place] (15 min) Moderate 03/10/2018 Appointment: Carlyn Higginbotham WPtel: [phone] [phone] [place] (15 min) Moderate 02/08/2018 Visit Plan: DM -decrease levemir to 4 units daily -monitor blood sugars YNM-qmaxshieff-cq changes Chronic pain -well controlled with fentanyl patch -no changes at this time 01/07/2018 Appointment: Carlyn Higginbotham WPtel: [phone] [place] (15 min) Moderate 01/07/2018 Patient [...] AT HS 2017 Appointment: Carlyn Higginbotham WPtel: [phone] [phone] [place] (15 min) Moderate 2017 Patient [...] 175mcg. 09/09/2017 [phone] [place] ([facility] min) Moderate 09/09/2017 [...] and PRN pain medications - will have [facility] fax [facility] PRN medication administration record. 06/08/2017 [phone] [place] (30 min) Complex 06/08/2017 Patient Education: [...] of over-medication. 04/15/2017 Appointment: Sunitha Patel WPtel[facility] ([facility] min) [facility] 04/15/2017 Patient Education: Patient Medication Summary Completed [...] today. 02/16/2017 Appointment: Vonda Everett WPtel: [phone] [facility] (15 min) Moderate 02/16/2017 Patient Education: Patient [...] concerns. 11/09/2016 Appointment: Sunitha Patel WPtel: [phone] [facility] (30 min) Complex 11/09/2016 Patient Education: Patient Medication Summary Completed 11/09/2016 Care Plan: Referral Order SNOMED-CT : [id number] Pending 11/09/2016 Patient Education: Patient Medication Summary [...] Follow up weight in 1 month Neck osfh-huujctdatnc-Cnok PT focus neck/upper body Right earache-cerumen removed with water pick today in the office 07/18/2015 Appointment: (30 min) Complex 07/18/2015 Patient Education: Patient Medication Summary Completed 07/18/2015 Patient Education: Obesity Completed 07/18/2015 Patient Education: .Cervicalgia Neck Pain Completed 07/18/2015 Referral: [facility] WPtel: [phone] [facility] Referral Completed 06/25/2015 Visit Plan: Hypertension [...] normal liver response to medications. [facility] for post stroke - left sided weakness, neck stiffness, upper extremity weakness Diabetes Mellitus - controlled - per family report - check labs this week, get report from and [facility]. I spent over an hour with the patient in direct contact. 06/17/2015 Appointment: Vonda Everett WPtel: [phone] [facility] New Patient 06/17/2015 Patient Education: Patient Medication Summary Completed 06/17/2015 Patient Education: Obesity Completed 06/17/2015 Patient Education: Hypertension Completed 06/17/2015 Care Plan: Referral Order SNOMED-CT : [id number] Ordered 06/17/2015 Referral: Jorge Luis Carroll Referral Initiated Referral: [facility] WPtel: [phone] Referral Appointment Requested Instructions Comment . [...] response to medications. referral to [facility] physical and occupational therapy for post stroke - left sided weakness, neck stiffness, upper extremity weakness Diabetes Mellitus - controlled - per family report - check labs this week, get report from and [facility]. I spent over an hour with the patient in direct contact. . PEG tube - tube has not been replaced in some time, some mild irritation noted around the tube - will refer to surgeon for PEG tube replacement. Pt/family is to notify clinic with any changes, questions, or concerns. Add 1 scoop of whey protein from [facility] to 2 feedings per day . [...] Follow up weight in 1 month Neck rziw-atuzyrvirhr-Dkda PT focus neck/upper body Right earache-cerumen removed [...] to 4 units daily -monitor blood sugars MFF-iwygkcfndf-yg changes Chronic pain -well controlled with fentanyl [...] and PRN pain medications - will have [facility] fax over PRN medication administration record. . [...]
--- OUTSIDE RECORDS SUMMARY | 2018-08-09 12:00 | XMS REPORT | CCD ---
Author Author [facility] Organization [facility] Address [address] [place] [address] Phone Care Team Providers Care Feather Edger Name Role Phone PP Unavailable CCM Unavailable Summary Purpose Interface Exchange Insurance Providers Payer name Policy type / Coverage type Covered alliance party ID Effective Begin Date Effective End Date WPS Medicare Part B Medicare Part B [id number] Unknown Unknown [employer] Insurance Medicare Part B [id number] Unknown Unknown Family history Father Diagnosis Age At Onset Arthritis Unknown Hypertension Unknown Mother Diagnosis Age At Onset Diabetes mellitus Type 2 Unknown Depression Unknown Arthritis Unknown Stroke Unknown Hypertension Unknown Sister Diagnosis Age At Onset Colon cancer Unknown Social History Social History Element Codes Description Effective Dates Marital status Unknown Maurice 01/07/2018 Living arrangements Unknown Correction [facility] 04/15/2017 Number of children Unknown 3 06/17/2015 Employment Unknown Retired 06/17/[address]: 1929305 Quit over 10 years ago 15+ 06/17/[address]: 507315392 Never drinks alcohol 06/17/2015 Allergies, Adverse Reactions, [...] Fill Instructions carvedilol 3.125 mg tablet RxNorm: 545694 Tablet(s) GIVE 1 TABLET VIA PEG TUBE 2 TIMES A DAY 03/30/2018 06/27/2018 Active Generic For:COREG 3.125MG 10/22/2017 9:23:30 AM hydrocodone 10 mg-acetaminophen 325 mg tablet RxNorm: 876711 2 Tablet(s) PO scheduled TID 03/23/2018 04/21/2018 Active Not to exceed 3gm/24hr acetaminophen Zithromax Z-Eliu 250 mg tablet RxNorm: 934167 Tablet(s) PO 03/18/2018 No Stop Date Active albuterol sulfate concentrate 5 mg/mL(0.5 %) solution for nebulization RxNorm: 724217 1 Vial Milliliter(s) INH TID PRN as needed congestion 03/18/2018 No Stop Date Active Voltaren 1 % topical gel RxNorm: 071844 4 Gram(s) TOP QID 03/18/2018 No Stop Date Active cefdinir 300 mg capsule RxNorm: 230590 1 Capsule(s) PO BID 03/18/2018 03/24/2018 Inactive hydrochlorothiazide 25 mg tablet RxNorm: 067867 GIVE 1 TABLET VIA PEG TUBE ONCE DAILY 03/11/2018 09/06/2018 Active Generic For:HYDRODIURIL 25 MG TABLET 03/11/2018 9:15:32 AM fentanyl 100 mcg/hr transdermal patch RxNorm: 187730 1 Patch TD Q72H 03/02/2018 03/31/2018 Active Duragesic 75 mcg/hr transdermal patch RxNorm: 057381 1 Patch TD Q72H 03/02/2018 03/31/2018 Active hydrocodone 10 mg-acetaminophen 325 mg tablet RxNorm: 265720 2 Tablet(s) PO scheduled TID 02/18/2018 03/22/2018 Inactive Not to exceed 3gm/24hr acetaminophen hyoscyamine 0.125 mg disintegrating tablet RxNorm: 5912523 Tablet(s) 1-2 Tablet(s) PO Q8 as needed 02/08/2018 No Stop Date Active fentanyl 100 mcg/hr transdermal patch RxNorm: 464148 1 Patch TD Q72H 02/04/2018 03/01/2018 Inactive hydrocodone 10 mg-acetaminophen 325 mg tablet RxNorm: 825894 2 Tablet(s) PO scheduled TID 02/04/2018 02/17/2018 Inactive Not to exceed 3gm/24hr acetaminophen Duragesic 75 mcg/hr transdermal patch RxNorm: 214180 1 Patch TD Q72H 02/04/2018 03/01/2018 Inactive Levemir FlexTouch U-100 Insulin 100 unit/mL (3 mL) subcutaneous pen RxNorm: 208533 4 Unit(s) SQ QHS 01/07/2018 No Stop Date Active Duragesic 75 mcg/hr transdermal patch RxNorm: 745677 1 Patch TD Q72H 01/07/2018 02/03/2018 Inactive fentanyl 100 mcg/hr transdermal patch RxNorm: 690992 1 Patch TD Q72H 01/07/2018 02/03/2018 Inactive hydrocodone 10 mg-acetaminophen 325 mg tablet RxNorm: 075161 2 Tablet(s) PO scheduled TID 01/05/2018 02/03/2018 Inactive Not to exceed 3gm/24hr acetaminophen hydrocodone 10 mg-acetaminophen 325 mg tablet RxNorm: 104054 2 Tablet(s) PO scheduled TID and 1 tab q 4 as needed 01/04/2018 01/04/2018 Inactive Not to exceed 3gm/24hr acetaminophen cyanocobalamin (vit B-12) 1,000 mcg tablet RxNorm: 348531 1 Tablet(s) PO daily 12/28/2017 11/22/2018 Active baclofen 10 mg tablet RxNorm: 275956 Tablet(s) TAKE 1 TABLET THREE TIMES DAILY VIA STOMACH TUBE 12/27/2017 05/25/2018 Active 10/07/2017 5:36:15 PM 10/07/2017 5:36:13 PM N O T I C E Last quantity doesn't match original quantity Duragesic 75 mcg/hr transdermal patch RxNorm: 711718 1 Patch TD Q72H 12/22/2017 01/06/2018 Inactive fentanyl 100 mcg/hr transdermal patch RxNorm: 346813 1 Patch TD Q72H 12/22/2017 01/06/2018 Inactive hydrocodone 10 mg-acetaminophen 325 mg tablet RxNorm: 261564 2 Tablet(s) PO scheduled TID and 1 tab q 4 as needed 12/20/2017 01/03/2018 Inactive Not to exceed 3gm/24hr acetaminophen hyoscyamine 0.125 mg disintegrating tablet RxNorm: 6350978 1-2 Tablet(s) PO Q8 as needed 12/14/2017 02/07/2018 Inactive Duragesic 75 mcg/hr transdermal patch RxNorm: 512998 1 Patch TD Q72H 12/06/2017 12/21/2017 Inactive fentanyl 100 mcg/hr transdermal patch RxNorm: 553174 1 Patch TD Q72H 12/06/2017 12/21/2017 Inactive hydrocodone 10 mg-acetaminophen 325 mg tablet RxNorm: 167479 2 Tablet(s) PO scheduled TID and 1 tab q 4 as needed 11/29/2017 12/19/2017 Inactive Not to exceed 3gm/24hr acetaminophen Duragesic 75 mcg/hr transdermal patch RxNorm: 127709 1 Patch TD Q72H 11/11/2017 12/05/2017 Inactive hydrocodone 10 mg-acetaminophen 325 mg tablet RxNorm: 431020 2 Tablet(s) PO scheduled TID and 1 tab q 4 as needed 11/09/2017 11/28/2017 Inactive Not to exceed 3gm/24hr acetaminophen Levemir FlexTouch U-100 Insulin 100 unit/mL (3 mL) subcutaneous pen RxNorm: 804845 8 Unit(s) SQ QHS 11/09/2017 01/06/2018 Inactive fentanyl 100 mcg/hr transdermal patch RxNorm: 593746 1 Patch TD Q72H 2017 12/05/2017 Inactive hyoscyamine 0.125 mg disintegrating tablet RxNorm: 4639807 1-2 Tablet(s) PO Q8 as needed 11/03/2017 12/13/2017 Inactive carvedilol 3.125 mg tablet RxNorm: 122966 GIVE 1 TABLET VIA PEG TUBE 2 TIMES A DAY 10/22/2017 01/19/2018 Inactive Generic For:COREG 3.125MG 10/22/2017 9:23:30 AM hydrocodone 10 mg-acetaminophen 325 mg tablet RxNorm: 853173 2 Tablet(s) PO scheduled TID and 1 tab q 4 as needed 10/22/2017 2017 Inactive Not to exceed 3gm/24hr acetaminophen fentanyl 100 mcg/hr transdermal patch RxNorm: 731170 1 Patch TD Q72H 10/20/2017 11/07/2017 Inactive Duragesic 75 mcg/hr transdermal patch RxNorm: 095439 1 Patch TD Q72H 10/20/2017 11/10/2017 Inactive lorazepam 0.5 mg tablet RxNorm: 961752 1 Tablet(s) PO BID and 1 tab q 6 hours prn 10/18/2017 No Stop Date Active baclofen 10 mg tablet RxNorm: 136261 TAKE 1 TABLET THREE TIMES DAILY VIA STOMACH TUBE 10/07/2017 12/26/2017 Inactive 10/07/2017 5:36:15 PM 10/07/2017 5:36:13 PM N O T I C E Last quantity doesn't match original quantity cranberry extract 500 mg tablet RxNorm: 2965963 1 Tablet(s) PO QAM 10/04/2017 01/31/2018 Inactive Cipro 500 mg tablet RxNorm: 946966 1 Tablet(s) PO BID 10/04/2017 10/03/2017 Inactive dc keflex hydrocodone 10 mg-acetaminophen 325 mg tablet RxNorm: 640004 2 Tablet(s) PO scheduled TID as needed 10/04/2017 10/21/2017 Inactive Not to exceed 3gm/24hr acetaminophen cranberry extract 500 mg tablet RxNorm: 3537262 1 Tablet(s) PO QAM 10/04/2017 10/03/2017 Inactive Cipro 500 mg tablet RxNorm: 480328 1 Tablet(s) PO BID 10/04/2017 10/10/2017 Inactive dc keflex Duragesic 75 mcg/hr transdermal patch RxNorm: 669675 1 Patch TD Q72H 09/20/2017 10/19/2017 Inactive fentanyl 100 mcg/hr transdermal patch RxNorm: 261874 1 Patch TD Q72H 09/20/2017 10/19/2017 Inactive hyoscyamine 0.125 mg disintegrating tablet RxNorm: 3294180 1 Tablet(s) PO TID and 1 Tablet Q4H prn increased secretions 09/15/2017 11/02/2017 Inactive hydrocodone 10 mg-acetaminophen 325 mg tablet RxNorm: 014373 2 Tablet(s) PO scheduled TID and 1-2 Tabs Q4H PRN pain 09/15/2017 10/03/2017 Inactive Not to exceed 3gm/24hr acetaminophen lorazepam 0.5 mg tablet RxNorm: 828132 1 Tablet(s) PO BID 09/15/2017 10/17/2017 Inactive Lexapro 10 mg tablet RxNorm: 452406 1 Tablet(s) PO daily 09/10/2017 09/14/2017 Inactive lisinopril 10 mg tablet RxNorm: 056355 1 Tablet(s) PO daily 09/09/2017 06/05/2018 Active Levemir FlexTouch U-100 Insulin 100 unit/mL (3 mL) subcutaneous pen RxNorm: 754853 10 Unit(s) daily 09/09/2017 09/15/2017 Inactive Duragesic 75 mcg/hr transdermal patch RxNorm: 663862 1 Patch TD Q72H 09/09/2017 09/19/2017 Inactive nystatin 100,000 unit/gram topical cream RxNorm: 426513 1 Gram(s) TOP TID until healed to gaulding 09/06/2017 01/03/2018 Inactive nystatin 100,000 unit/gram topical cream RxNorm: 518234 1 Gram(s) TOP TID until healed to gaulding 09/06/2017 09/05/2017 Inactive hydrocodone 10 mg-acetaminophen 325 mg tablet RxNorm: 893112 2 Tablet(s) PO scheduled TID as needed 08/31/2017 09/14/2017 Inactive Not to exceed 3gm/24hr acetaminophen fentanyl 100 mcg/hr transdermal patch RxNorm: 024504 1 Patch TD Q72H 08/24/2017 09/19/2017 Inactive fentanyl 50 mcg/hr transdermal patch RxNorm: 273136 1 Patch TD Q72H 08/24/2017 09/08/2017 Inactive fentanyl 25 mcg/hr transdermal patch RxNorm: 483966 1 Patch TD Q72H 08/24/2017 08/24/2017 Inactive hyoscyamine 0.125 mg disintegrating tablet RxNorm: 4708206 Tablet(s) 1-2 Tablet(s) PO Q8 as needed 08/23/2017 09/14/2017 Inactive hydrocodone 10 mg-acetaminophen 325 mg tablet RxNorm: 466755 1 Tablet(s) PO scheduled TID et Q6 hours as needed 08/18/2017 08/30/2017 Inactive Not to exceed 3gm/24hr acetaminophen hydrochlorothiazide 25 mg tablet RxNorm: 501745 GIVE 1 TABLET VIA PEG TUBE ONCE DAILY 08/17/2017 02/12/2018 Inactive Generic For:HYDRODIURIL 25 MG TABLET 08/17/2017 9:01:54 AM08/11/2017 10:12:00 AM lorazepam 0.5 mg tablet RxNorm: 708828 1/2 Tablet(s) PO BID 08/03/2017 09/14/2017 Inactive fentanyl 100 mcg/hr transdermal patch RxNorm: 274557 1 Patch TD Q72H 07/26/2017 08/23/2017 Inactive fentanyl 25 mcg/hr transdermal patch RxNorm: 048765 1 Patch TD Q72H 07/26/2017 08/23/2017 Inactive hydrocodone 10 mg-acetaminophen 325 mg tablet RxNorm: 251467 1 Tablet(s) PO scheduled TID et Q6 hours as needed 07/16/2017 08/14/2017 Inactive Not to exceed 3gm/24hr acetaminophen hyoscyamine 0.125 mg disintegrating tablet RxNorm: 4602999 Tablet(s) 1-2 Tablet(s) PO Q8 as needed 07/13/2017 08/01/2017 Inactive baclofen 10 mg tablet RxNorm: 068696 TAKE 1 TABLET THREE TIMES DAILY VIA STOMACH TUBE 07/12/2017 10/06/2017 Inactive 07/12/2017 9:04:08 AM N O T I C E Last quantity doesn't match original quantity lorazepam 0.5 mg tablet RxNorm: 749110 1/2 Tablet(s) PO BID 07/02/2017 08/02/2017 Inactive fentanyl 100 mcg/hr transdermal patch RxNorm: 973755 1 Patch TD Q72H 06/28/2017 07/25/2017 Inactive fentanyl 25 mcg/hr transdermal patch RxNorm: 361151 1 Patch TD Q72H 06/28/2017 07/25/2017 Inactive hyoscyamine 0.125 mg disintegrating tablet RxNorm: 7533012 Tablet(s) 1-2 Tablet(s) PO Q8 as needed 06/03/2017 06/22/2017 Inactive fentanyl 25 mcg/hr transdermal patch RxNorm: 320643 1 Patch TD Q72H 05/26/2017 06/24/2017 Inactive Levemir FlexTouch U-100 Insulin 100 unit/mL (3 mL) subcutaneous pen RxNorm: 467176 20 Unit(s) SQ BID 05/26/2017 09/08/2017 Inactive fentanyl 100 mcg/hr transdermal patch RxNorm: 255639 1 Patch TD Q72H 05/26/2017 06/24/2017 Inactive hydrocodone 10 mg-acetaminophen 325 mg tablet RxNorm: 376344 1 Tablet(s) PO scheduled BID et Q6 hours as needed 05/12/2017 05/11/2017 Inactive hydrocodone 10 mg-acetaminophen 325 mg tablet RxNorm: 649448 1 Tablet(s) PO scheduled TID et Q6 hours as needed 05/12/2017 06/10/2017 Inactive Not to exceed 3gm/24hr acetaminophen docusate sodium 100 mg tablet RxNorm: 5934068 1 Tablet(s) PO BID as needed if no bowel movement 05/10/2017 05/09/2017 Inactive lisinopril 20 mg tablet RxNorm: 590229 1 Tablet(s) PO daily 05/10/2017 09/08/2017 Inactive docusate sodium 100 mg tablet RxNorm: 9623751 1 Tablet(s) PO BID as needed if no bowel movement 05/10/2017 09/14/2017 Inactive fentanyl 25 mcg/hr transdermal patch RxNorm: 250811 1 Patch TD Q72H 05/03/2017 05/25/2017 Inactive lorazepam 0.5 mg tablet RxNorm: 745209 1/2 Tablet(s) PO BID 05/03/2017 07/01/2017 Inactive fentanyl 100 mcg/hr transdermal patch RxNorm: 555654 1 Patch TD Q72H 04/27/2017 05/25/2017 Inactive carvedilol 3.125 mg tablet RxNorm: 394839 Tablet(s) GIVE 1 TABLET VIA PEG TUBE DAILY 04/15/2017 10/21/2017 Inactive Levemir FlexTouch 100 unit/mL (3 mL) subcutaneous insulin pen RxNorm: 095626 10 Unit(s) SQ BID 04/15/2017 2017 Inactive hyoscyamine 0.125 mg disintegrating tablet RxNorm: 3085718 1-2 Tablet(s) PO Q8 as needed 04/14/2017 05/03/2017 Inactive hydrocodone 10 mg-acetaminophen 325 mg tablet RxNorm: 006883 1 Tablet(s) PO scheduled BID et Q6 hours as needed 04/13/2017 05/02/2017 Inactive baclofen 10 mg tablet RxNorm: 401910 TAKE 1 TABLET THREE TIMES DAILY VIA STOMACH TUBE 04/08/2017 05/22/2017 Inactive 04/08/2017 9:32:07 AM fentanyl 25 mcg/hr transdermal patch RxNorm: 887100 1 Patch TD Q72H 04/05/2017 05/02/2017 Inactive lidocaine 10 mg/mL (1 %) injection solution RxNorm: 1232056 1 Milliliter(s) Inj daily Mix with rocephin 03/31/2017 03/30/2017 Inactive Pt resides at [facility] lidocaine 10 mg/mL (1 %) injection solution RxNorm: 9497651 1 Milliliter(s) Inj daily Mix with rocephin 03/31/2017 04/06/2017 Inactive Pt resides at [facility] fentanyl 100 mcg/hr transdermal patch RxNorm: 384820 1 Patch TD Q72H 03/29/2017 04/26/2017 Inactive nystatin 100,000 unit/gram topical powder RxNorm: 085561 APPLY UNDER BREASTS TWICE DAILY FOR YEAST SKIN INFECTION AND APPLY TO UNDERARM AND ABDOMINAL FOLDS AND PERIAREA TWICE DAILY 03/29/2017 03/28/2017 Inactive 03/27/2017 9:12:50 AM nystatin 100,000 unit/gram topical powder RxNorm: 518586 APPLY UNDER BREASTS TWICE DAILY FOR YEAST SKIN INFECTION AND APPLY TO UNDERARM AND ABDOMINAL FOLDS AND PERIAREA TWICE DAILY 03/29/2017 09/14/2017 Inactive 03/29/2017 9:42:55 AM03/27/2017 9:12:50 AM hyoscyamine 0.125 mg disintegrating tablet RxNorm: 4115710 1-2 Tablet(s) PO Q8 as needed 03/08/2017 03/27/2017 Inactive fentanyl 25 mcg/hr transdermal patch RxNorm: 094502 1 Patch TD Q72H 03/02/2017 03/31/2017 Inactive hydrocodone 10 mg-acetaminophen 325 mg tablet RxNorm: 067267 1 Tablet(s) PO scheduled BID et Q6 hours as needed 02/17/2017 03/18/2017 Inactive fentanyl 100 mcg/hr transdermal patch RxNorm: 774866 1 Patch TD Q72H 02/17/2017 03/18/2017 Inactive Lexapro 10 mg tablet RxNorm: 305873 1 Tablet(s) PO daily 02/05/2017 04/14/2017 Inactive Lexapro 10 mg tablet RxNorm: 143035 1 Tablet(s) PO daily 02/05/2017 02/04/2017 Inactive fentanyl 25 mcg/hr transdermal patch RxNorm: 711208 1 Patch TD Q72H 02/04/2017 03/01/2017 Inactive cyanocobalamin (vit B-12) 1,000 mcg tablet RxNorm: 953876 1 Tablet(s) PO daily 01/18/2017 12/13/2017 Inactive hyoscyamine 0.125 mg disintegrating tablet RxNorm: 1330690 Tablet(s) 1-2 Tablet(s) PO Q8 as needed 01/18/2017 02/06/2017 Inactive baclofen 10 mg tablet RxNorm: 434115 TAKE 1 TABLET THREE TIMES DAILY VIA STOMACH TUBE 01/04/2017 02/17/2017 Inactive 01/04/2017 9:25:18 AM fentanyl 100 mcg/hr transdermal patch RxNorm: 416415 1 Patch TD Q72H 12/25/2016 01/23/2017 Inactive hydrochlorothiazide 25 mg tablet RxNorm: 039793 Tablet(s) GIVE 1 TABLET VIA PEG TUBE ONCE A DAY 12/14/2016 07/11/2017 Inactive fentanyl 100 mcg/hr transdermal patch RxNorm: 517962 1 Patch TD Q72H 11/25/2016 12/24/2016 Inactive hyoscyamine 0.125 mg disintegrating tablet RxNorm: 6632568 Tablet(s) 1-2 Tablet(s) PO Q8 as needed 11/25/2016 12/14/2016 Inactive nystatin 100,000 unit/gram topical powder RxNorm: 748574 APPLY UNDER BREASTS TWICE DAILY FOR YEAST SKIN INFECTION AND APPLY TO UNDERARM AND ABDOMINAL FOLDS AND PERIAREA TWICE DAILY 11/24/2016 01/22/2017 Inactive 11/24/2016 9:34:02 AM hydrocodone 10 mg-acetaminophen 325 mg tablet RxNorm: 812097 1 Tablet(s) PO scheduled BID et Q6 hours as needed 11/02/2016 12/01/2016 Inactive cyanocobalamin (vit B-12) 1,000 mcg tablet RxNorm: 357045 1 Tablet(s) PO daily 11/02/2016 01/17/2017 Inactive hyoscyamine 0.125 mg disintegrating tablet RxNorm: 7477512 1-2 Tablet(s) PO Q8 as needed 10/19/2016 11/24/2016 Inactive fentanyl 100 mcg/hr transdermal patch RxNorm: 328451 1 Patch TD Q72H 10/13/2016 11/11/2016 Inactive hydrocodone 10 mg-acetaminophen 325 mg tablet RxNorm: 216519 1 Tablet(s) PO scheduled BID et Q6 hours as needed 10/05/2016 11/01/2016 Inactive baclofen 10 mg tablet RxNorm: 779957 TAKE 1 TABLET THREE TIMES DAILY VIA STOMACH TUBE 10/01/2016 11/14/2016 Inactive 10/01/2016 9:24:37 AM carvedilol 3.125 mg tablet RxNorm: 533458 GIVE 1 TABLET VIA PEG TUBE 2 TIMES A DAY 09/30/2016 12/28/2016 Inactive Generic For:COREG 3.125MG 09/30/2016 1:12:28 PM09/25/2016 9:06:11 AM Probiotic Blend 2 million cell-50 mg capsule RxNorm: 1 Capsule(s) PO BID 09/17/2016 09/23/2016 Inactive Keflex 500 mg capsule RxNorm: 578014 1 Capsule(s) PO TID 09/17/2016 09/23/2016 Inactive hyoscyamine 0.125 mg/5 mL oral elixir RxNorm: 9906083 5 Milliliter(s) PO TID 09/08/2016 09/17/2016 Inactive hyoscyamine 0.125 mg/5 mL oral elixir RxNorm: 6221011 5 Milliliter(s) PO TID 09/08/2016 09/07/2016 Inactive hyoscyamine 0.125 mg disintegrating tablet RxNorm: 4001347 1-2 Tablet(s) PO Q8 as needed 09/07/2016 10/18/2016 Inactive fentanyl 100 mcg/hr transdermal patch RxNorm: 860810 1 Patch TD Q72H 09/01/2016 09/30/2016 Inactive ranitidine 150 mg tablet RxNorm: 035423 1 Tablet(s) PO BID 08/25/2016 No Stop Date Active hydrocodone 10 mg-acetaminophen 325 mg tablet RxNorm: 801362 1 Tablet(s) PO scheduled BID et Q6 hours as needed 08/24/2016 09/22/2016 Inactive cyanocobalamin (vit B-12) 1,000 mcg tablet RxNorm: 059375 1 Tablet(s) PO daily 08/12/2016 11/01/2016 Inactive cyanocobalamin (vit B-12) 1,000 mcg tablet RxNorm: 340095 1 Tablet(s) PO daily 08/12/2016 08/11/2016 Inactive hydrocodone 10 mg-acetaminophen 325 mg tablet RxNorm: 046965 1-2 Tablet(s) PO Q6 as needed 08/03/2016 08/17/2016 Inactive fentanyl 100 mcg/hr transdermal patch RxNorm: 220564 1 Patch TD Q72H 08/03/2016 08/31/2016 Inactive nystatin 100,000 unit/gram topical powder RxNorm: 256356 APPLY UNDER BREASTS TWICE DAILY FOR YEAST SKIN INFECTION AND APPLY TO UNDERARM AND ABDOMINAL FOLDS AND PERIAREA TWICE DAILY 07/17/2016 09/14/2016 Inactive 07/17/2016 3:56:54 PM fentanyl 100 mcg/hr transdermal patch RxNorm: 337751 1 Patch TD Q72H 07/15/2016 08/02/2016 Inactive lisinopril 20 mg tablet RxNorm: 201334 1 Tablet(s) PO daily 07/02/2016 03/28/2017 Inactive hydrocodone 10 mg-acetaminophen 325 mg tablet RxNorm: 485367 1-2 Tablet(s) PO Q6 as needed 07/01/2016 07/15/2016 Inactive Xarelto 20 mg tablet RxNorm: 9385721 Tablet(s) TAKE 1 TABLET VIA PEG TUBE AT BEDTIME 06/19/2016 04/14/2017 Inactive fentanyl 100 mcg/hr transdermal patch RxNorm: 368573 1 Patch TD Q72H 06/17/2016 07/14/2016 Inactive nystatin 100,000 unit/gram topical powder RxNorm: 677919 APPLY TO UNDER BREASTS TWICE DAILY FOR YEAST SKIN INFECTION AND APPLY TO UNDERARM AND ABDOMINAL FOLDS AND PERIAREA TWICE DAILY 06/15/2016 07/16/2016 Inactive Generic For:MYCOSTATIN 100,000 UNITS/GM PW 06/15/2016 12:28:26 PM fentanyl 100 mcg/hr transdermal patch RxNorm: 050122 1 Patch TD Q72H 06/05/2016 06/16/2016 Inactive hydrocodone 10 mg-acetaminophen 325 mg tablet RxNorm: 179964 1-2 Tablet(s) PO Q6 as needed 06/02/2016 06/16/2016 Inactive Probiotic Blend 2 million cell-50 mg capsule RxNorm: 1 Capsule(s) PO BID 05/13/2016 05/19/2016 Inactive nitrofurantoin 100 mg capsule RxNorm: 934164 1 Capsule(s) PO BID 05/13/2016 05/19/2016 Inactive nitrofurantoin 100 mg capsule RxNorm: 481485 1 Capsule(s) PO BID 05/13/2016 05/12/2016 Inactive fentanyl 75 mcg/hr transdermal patch RxNorm: 211405 1 Patch TD Q72H 05/13/2016 06/04/2016 Inactive Keflex 500 mg capsule RxNorm: 022450 1 Capsule(s) PO TID 05/07/2016 05/13/2016 Inactive Patient at [facility] Keflex 500 mg capsule RxNorm: 058269 1 Capsule(s) PO TID 05/07/2016 05/06/2016 Inactive hydrocodone 10 mg-acetaminophen 325 mg tablet RxNorm: 238592 1-2 Tablet(s) PO Q6 as needed 05/04/2016 06/01/2016 Inactive hydrochlorothiazide 25 mg tablet RxNorm: 045299 Tablet(s) GIVE 1 TABLET VIA PEG TUBE ONCE A DAY 04/29/2016 11/24/2016 Inactive hydrochlorothiazide 25 mg tablet RxNorm: 962764 GIVE 1 TABLET VIA PEG TUBE ONCE A DAY 04/22/2016 04/28/2016 Inactive Generic For:HYDRODIURIL 25 MG TABLET refill request fentanyl 75 mcg/hr transdermal patch RxNorm: 083221 1 Patch TD Q72H 04/17/2016 05/12/2016 Inactive Xarelto 20 mg tablet RxNorm: 3170227 TAKE 1 TABLET VIA PEG TUBE AT BEDTIME 04/16/2016 06/14/2016 Inactive 04/16/2016 9:08:52 AM citalopram 40 mg tablet RxNorm: 970768 1 Tablet(s) PO daily 04/02/2016 02/25/2017 Inactive citalopram 40 mg tablet RxNorm: 803752 1 Tablet(s) PO daily 03/27/2016 04/01/2016 Inactive hydrocodone 10 mg-acetaminophen 325 mg tablet RxNorm: 851681 1-2 Tablet(s) PO Q6 as needed 03/27/2016 04/25/2016 Inactive fentanyl 75 mcg/hr transdermal patch RxNorm: 815990 1 Patch TD Q72H 03/18/2016 04/16/2016 Inactive hydrocodone 10 mg-acetaminophen 325 mg tablet RxNorm: 943273 1-2 Tablet(s) PO Q6 as needed 03/11/2016 03/26/2016 Inactive citalopram 40 mg tablet RxNorm: 357967 1 Tablet(s) PO daily 03/04/2016 03/26/2016 Inactive Levemir FlexTouch U-100 Insulin 100 unit/mL (3 mL) subcutaneous pen RxNorm: 185702 20 Unit(s) SQ BID 03/02/2016 09/27/2016 Inactive lisinopril 20 mg tablet RxNorm: 571381 1 Tablet(s) PO daily 02/25/2016 07/01/2016 Inactive Ativan 0.5 mg tablet RxNorm: 569827 1 Tablet(s) PO Q4H as needed 02/18/2016 04/14/2017 Inactive Xarelto 20 mg tablet RxNorm: 9817963 TAKE 1 TABLET VIA PEG TUBE AT BEDTIME 02/12/2016 04/11/2016 Inactive 02/12/2016 9:08:22 AM hydrocodone 10 mg-acetaminophen 325 mg tablet RxNorm: 990901 1-2 Tablet(s) PO Q6 as needed 02/12/2016 03/10/2016 Inactive fentanyl 75 mcg/hr transdermal patch RxNorm: 293592 1 Patch TD Q72H 02/11/2016 03/11/2016 Inactive citalopram 20 mg tablet RxNorm: 315099 1 Tablet(s) PO daily 01/28/2016 03/03/2016 Inactive fentanyl 75 mcg/hr transdermal patch RxNorm: 923458 1 TD Q72H 01/17/2016 02/10/2016 Inactive hydrocodone 10 mg-acetaminophen 325 mg tablet RxNorm: 988351 1-2 Tablet(s) PO Q6 as needed 01/07/2016 02/05/2016 Inactive fentanyl 50 mcg/hr transdermal patch RxNorm: 088873 1 TD Q72H 01/01/2016 01/16/2016 Inactive fentanyl 50 mcg/hr transdermal patch RxNorm: 168351 1 TD q 3 days 12/26/2015 12/31/2015 Inactive Xarelto 20 mg tablet RxNorm: 4356192 TAKE 1 TABLET VIA PEG TUBE AT BEDTIME 12/17/2015 02/11/2016 Inactive 12/16/2015 3:27:57 PM12/14/2015 9:45:17 AM hydrocodone 10 mg-acetaminophen 325 mg tablet RxNorm: 956543 1-2 Tablet(s) PO Q6 as needed 12/06/2015 01/04/2016 Inactive fentanyl 50 mcg/hr transdermal patch RxNorm: 098913 1 TD q 3 days 12/06/2015 12/25/2015 Inactive fentanyl 25 mcg/hr transdermal patch RxNorm: 184278 1 TD q 3 days 11/18/2015 12/05/2015 Inactive Zithromax Z-Eliu 250 mg tablet RxNorm: 309940 1 Tablet(s) PO UD 10/09/2015 02/26/2016 Inactive z pack as directed- please write out instructions- pt at [facility] nystatin 100,000 unit/gram topical powder RxNorm: 628874 APPLY TO UNDER BREASTS TWICE DAILY FOR YEAST SKIN INFECTION AND APPLY TO UNDERARM AND ABDOMINAL FOLDS AND PERIAREA TWICE DAILY 10/07/2015 12/05/2015 Inactive Generic For:MYCOSTATIN 100,000 UNITS/GM PW 10/05/2015 12:07:35 PM fentanyl 25 mcg/hr transdermal patch RxNorm: 298743 1 TD q 3 days 10/03/2015 11/01/2015 Inactive fentanyl 25 mcg/hr transdermal patch RxNorm: 802424 1 TD q 3 days 09/27/2015 10/02/2015 Inactive fentanyl 25 mcg/hr transdermal patch RxNorm: 309097 1 TD q 3 days 09/17/2015 09/26/2015 Inactive fentanyl 25 mcg/hr transdermal patch RxNorm: 014073 1 TD q 3 days 08/30/2015 09/16/2015 Inactive hydrocodone 5 mg-acetaminophen 325 mg tablet RxNorm: 542958 1 Tablet(s) PO Q6 as needed 08/30/2015 09/28/2015 Inactive Diflucan 100 mg tablet RxNorm: 408408 1 Tablet(s) Miscellaneous per peg daily 07/29/2015 08/04/2015 Inactive fentanyl 25 mcg/hr transdermal patch RxNorm: 335865 1 TD q 3 days 07/18/2015 08/29/2015 Inactive hydrocodone 5 mg-acetaminophen 325 mg tablet RxNorm: 107992 1 Tablet(s) PO Q6 as needed 07/18/2015 08/29/2015 Inactive Diflucan 100 mg tablet RxNorm: 084050 1 Tablet(s) Miscellaneous per peg daily 06/17/2015 06/23/2015 Inactive Senna-S 8.6 mg-50 mg tablet RxNorm: 488547 1 Tablet(s) PO daily as needed constipation No Start Date Active Dulcolax (bisacodyl) 10 mg rectal suppository RxNorm: 454909 1 Suppository RTL daily as needed constipation No Start Date Active polyethylene glycol 3350 17 gram/dose oral powder RxNorm: 437991 17 Gram(s) PO daily as needed constipation No Start Date Active baclofen 10 mg tablet RxNorm: 471166 1 Tablet(s) PO TID No Start Date 09/30/2016 Inactive Ativan 0.5 mg tablet RxNorm: 554620 1 Tablet(s) PO Q4H as needed No Start Date 02/17/2016 Inactive ranitidine 150 mg tablet RxNorm: 302090 1 Tablet(s) PO daily No Start Date 08/24/2016 Inactive carvedilol 3.125 mg tablet RxNorm: 897079 1 Tablet(s) PO daily No Start Date 09/29/2016 Inactive citalopram 40 mg tablet RxNorm: 454521 1 Tablet(s) PO daily No Start Date 01/27/2016 Inactive Probiotic Blend oral RxNorm: oral No Start Date 05/12/2016 Inactive hydrochlorothiazide 25 mg tablet RxNorm: 320970 1 Tablet(s) PO daily No Start Date 04/21/2016 Inactive albuterol sulfate concentrate 5 mg/mL(0.5 %) solution for nebulization RxNorm: 970867 1 Vial INH daily as needed congestion No Start Date 03/17/2018 Inactive Levemir FlexTouch 100 unit/mL (3 mL) subcutaneous insulin pen RxNorm: 502512 10 Unit(s) SQ BID No Start Date 03/01/2016 Inactive Zithromax Z-Eliu 250 mg tablet RxNorm: 181078 1 Tablet(s) PO UD No Start Date 10/08/2015 Inactive z pack as directed- please write out instructions- pt at [facility] nystatin 100,000 unit/gram topical powder RxNorm: 315459 Gram(s) TOP BID as needed No Start Date 10/06/2015 Inactive pravastatin 40 mg tablet RxNorm: 878375 Tablet(s) PO daily No Start Date 04/14/2017 Inactive lorazepam 0.5 mg tablet RxNorm: 053317 1/2 Tablet(s) PO BID No Start Date 05/02/2017 Inactive Xarelto 20 mg tablet RxNorm: 2076122 1 Tablet(s) PO daily No Start Date 12/16/2015 Inactive fentanyl 25 mcg/hr transdermal patch RxNorm: 441879 1 TD q 3 days No Start Date 07/17/2015 Inactive lisinopril 20 mg tablet RxNorm: 884206 1 Tablet(s) PO daily No Start Date 02/24/2016 Inactive hydrocodone 5 mg-acetaminophen 325 mg tablet RxNorm: 102940 1 Tablet(s) PO Q6 as needed No Start Date 07/17/2015 Inactive citalopram 40 mg tablet RxNorm: 403675 1 Tablet(s) PO daily No Start Date 03/03/2016 Inactive hyoscyamine 0.125 mg disintegrating tablet RxNorm: 3420627 1-2 Tablet(s) PO Q8 as needed No [...] 30.7 pg 02/14/2018 Cbc With Differential Ord2 Sol[place]% 7.4 % 02/14/2018 Cbc With Differential Ord2 [...] 2.14 K/ul 02/14/2018 Cbc With Differential Ord2 [place] ABS# 0.5 K/ul 02/14/2018 Cbc With Differential Ord2 Eos ABS# 0.3 K/ul 02/14/2018 Cbc With Differential Ord2 Baso ABS# 0.0 K/ul 02/14/2018 Comp Metabolic Shh770 NA 142 mEq/L 02/14/2018 Comp Metabolic Wxf733 K 4.5 mEq/L 02/14/2018 Comp Metabolic Rem025 CL 97 mEq/L 02/14/2018 Comp Metabolic Kul397 CO2 41.0 mEq/L 02/14/2018 Comp Metabolic Agx869 ANION GAP 9 02/14/2018 Comp Metabolic Fuf619 GLUCOSE 111 mg/dL 02/14/2018 Comp Metabolic Dpf332 Creat 0.6 mg/dL 02/14/2018 Comp Metabolic Tdi484 eGFR 108 ml/min/1.73m2 02/14/2018 Comp Metabolic Pox197 BUN 32 mg/dL 02/14/2018 Comp Metabolic Azv591 B/C Ratio 54.2 Ratio 02/14/2018 Comp Metabolic Kmv227 CALCIUM 8.9 mg/dL 02/14/2018 Comp Metabolic Lin535 ALK PHOS 81 U/L 02/14/2018 Comp Metabolic Xzy431 AST(SGOT) 14 U/L 02/14/2018 Comp Metabolic Rpu279 ALT(SGPT) 11 U/L 02/14/2018 Comp Metabolic Azp893 BILI T 0.3 mg/dL 02/14/2018 Comp Metabolic Nev890 ALBUMIN 3.4 g/dL 02/14/2018 Comp Metabolic Ays953 TPRO 6.3 g/dL 02/14/2018 Comp Metabolic Hvm091 GLOB 2.9 g/dL 02/14/2018 Comp Metabolic Aby277 A/G Ratio 1.2 Ratio 02/14/2018 Comp Metabolic Nje742 Osmo 291 mOsmo 02/14/2018 %Hba1C Zfs158 % HbA1c 47888- 6 5.5 % 02/14/2018 %Hba1C Efh277 Gluc Ave 111 mg/dL 02/14/2018 Prealbumin 111844 PREALBUMIN 27 mg/dL 11/24/2017 %Hba1C Eqo695 % HbA1c 34168- 6 5.5 % 11/04/2017 %Hba1C Eai693 Gluc Ave 111 mg/dL 11/04/2017 Culture Urine [id number] URINE CULTURE SEE NOTES 10/04/2017 Culture Urine [id number] Continued Results 10/04/2017 Urine Culture Ucult Complete [...] Ord28 U-Com Culture to follow 10/01/2017 B12 Opi884 B12 >1500.00 pg/ml 02/19/2017 Cbc With Differential [...] Ord2 Baso ABS# 0.0 K/ul 02/02/2017 %Hba1C Yug078 % HbA1c 55040- 6 5.2 % 02/02/2017 %Hba1C Utl156 Gluc Ave 103 mg/dL 02/02/2017 Comp Metabolic Yaz466 NA 138 mEq/L 02/02/2017 Comp Metabolic Bmn895 K 4.5 mEq/L 02/02/2017 Comp Metabolic Cpn800 CL 98 mEq/L 02/02/2017 Comp Metabolic Xrc938 CO2 37.0 mEq/L 02/02/2017 Comp Metabolic Bfa314 ANION GAP 8 02/02/2017 Comp Metabolic Wix869 GLUCOSE 94 mg/dL 02/02/2017 Comp Metabolic Uld471 Creat 0.7 mg/dL 02/02/2017 Comp Metabolic Kyu179 eGFR 88 ml/min/1.73m2 02/02/2017 Comp Metabolic Dvs728 BUN 36 mg/dL 02/02/2017 Comp Metabolic Egi321 B/C Ratio 50.7 Ratio 02/02/2017 Comp Metabolic Shx963 CALCIUM 9.0 mg/dL 02/02/2017 Comp Metabolic Zqx010 ALK PHOS 78 U/L 02/02/2017 Comp Metabolic Csp871 AST(SGOT) 22 U/L 02/02/2017 Comp Metabolic Lqg114 ALT(SGPT) 28 U/L 02/02/2017 Comp Metabolic Lew132 BILI T 0.3 mg/dL 02/02/2017 Comp Metabolic Joc669 ALBUMIN 3.3 g/dL 02/02/2017 Comp Metabolic Crl753 TPRO 5.9 g/dL 02/02/2017 Comp Metabolic Krg923 GLOB 2.6 g/dL 02/02/2017 Comp Metabolic Nqw502 A/G Ratio 1.3 Ratio 02/02/2017 Comp Metabolic Wiy555 Osmo 284 mOsmo 02/02/2017 %Hba1C Dha938 % HbA1c 83114- 6 5.0 % 10/29/2016 %Hba1C Nhk371 Gluc Ave 97 mg/dL 10/29/2016 Culture Urine [id number] URINE CULTURE SEE NOTES 09/21/2016 Culture Urine [id number] Continued Results 09/21/2016 Urine Culture Ucult Complete [...] Baso ABS# 0.0 K/ul 07/30/2016 Comp Metabolic Eny085 NA 141 mEq/L 07/30/2016 Comp Metabolic Wog832 K 4.3 mEq/L 07/30/2016 Comp Metabolic Ooj191 CL 100 mEq/L 07/30/2016 Comp Metabolic Uev550 CO2 33.0 mEq/L 07/30/2016 Comp Metabolic Xtg273 ANION GAP 12 07/30/2016 Comp Metabolic Jeq055 GLUCOSE 64 mg/dL 07/30/2016 Comp Metabolic Agk159 Creat 0.5 mg/dL 07/30/2016 Comp Metabolic Ptp496 eGFR 126 ml/min/1.73m2 07/30/2016 Comp Metabolic Fdj893 BUN 25 mg/dL 07/30/2016 Comp Metabolic Ngh722 B/C Ratio 48.1 Ratio 07/30/2016 Comp Metabolic Adm093 CALCIUM 8.9 mg/dL 07/30/2016 Comp Metabolic Sdg477 ALK PHOS 90 U/L 07/30/2016 Comp Metabolic Rzp502 AST(SGOT) 22 U/L 07/30/2016 Comp Metabolic Ype019 ALT(SGPT) 36 U/L 07/30/2016 Comp Metabolic Yqt334 BILI T 0.3 mg/dL 07/30/2016 Comp Metabolic Fgi367 ALBUMIN 3.4 g/dL 07/30/2016 Comp Metabolic Fdo919 TPRO 6.0 g/dL 07/30/2016 Comp Metabolic Huy904 GLOB 2.7 g/dL 07/30/2016 Comp Metabolic Hrt112 A/G Ratio 1.3 Ratio 07/30/2016 Comp Metabolic Xbh014 Osmo 284 mOsmo 07/30/2016 A1C Frequency Twh246 A1CF 57618-3 Last A1C performed at [facility] on: 05-12-2016 07/30/2016 %Hba1C Qud035 % HbA1c 82607- 6 5.2 % 05/12/2016 %Hba1C Iju226 Gluc Ave 103 mg/dL 05/12/2016 Culture Urine [id number] URINE CULTURE SEE NOTES 05/11/2016 Urine Culture [...] U-Com Culture to follow 05/06/2016 Culture Urine [id number] URINE CULTURE SEE NOTES 03/17/2016 Culture Urine [id number] Continued Results 03/17/2016 Urine Culture Ucult Complete [...] Baso ABS# 0.0 K/ul 02/11/2016 Comp Metabolic Frn847 NA 137 mEq/L 02/11/2016 Comp Metabolic Yjt269 K 4.4 mEq/L 02/11/2016 Comp Metabolic Trl051 CL 100 mEq/L 02/11/2016 Comp Metabolic Dgu007 CO2 25.0 mEq/L 02/11/2016 Comp Metabolic Dyg721 ANION GAP 16 02/11/2016 Comp Metabolic Wkv319 GLUCOSE 99 mg/dL 02/11/2016 Comp Metabolic Cmd152 Creat 0.6 mg/dL 02/11/2016 Comp Metabolic Bpj692 eGFR 99 ml/min/1.73m2 02/11/2016 Comp Metabolic Qad009 BUN 27 mg/dL 02/11/2016 Comp Metabolic Mnt718 B/C Ratio 42.2 Ratio 02/11/2016 Comp Metabolic Gzz802 CALCIUM 9.2 mg/dL 02/11/2016 Comp Metabolic Fed596 ALK PHOS 74 U/L 02/11/2016 Comp Metabolic Qbv784 AST(SGOT) 24 U/L 02/11/2016 Comp Metabolic Huf895 ALT(SGPT) 26 U/L 02/11/2016 Comp Metabolic Ohc352 BILI T 0.5 mg/dL 02/11/2016 Comp Metabolic Qnz762 ALBUMIN 3.5 g/dL 02/11/2016 Comp Metabolic Ikd210 TPRO 6.2 g/dL 02/11/2016 Comp Metabolic Owt169 GLOB 2.7 g/dL 02/11/2016 Comp Metabolic Ovz650 A/G Ratio 1.3 Ratio 02/11/2016 Comp Metabolic Rvo106 Osmo 279 mOsmo 02/11/2016 Review of Systems [...] 1: 128/86 Code: 8480-6 BMI: 31.4 Code: 46269-0 Heart Rate 1: 72 bpm Height: 5'1" Weight: 166 lbs 06/17/2015 Blood Pressure 1: 110/78 Code: 8480-6 BMI: 33.3 Code: 62800-6 Heart Rate 1: 74 bpm Height: 5'1" [...] Present Encounters Encounter Performer Location Codes Date ([id number]) 81309 EST. PATIENT, LEVEL IV Diagnosis: Cough[ICD10: R05] Diagnosis: Pneumonia, unspecified organism[ICD10: J18.9] Diagnosis: Pain in right knee[ICD10: M25.561] Carlyn Everett MD, [facility] CPT- 4: 20382 03/18/2018 ([id number]) 37809 EST. PATIENT, LEVEL IV Diagnosis: Type 2 diabetes mellitus without complications[ICD10: E11.9] Diagnosis: Essential (primary) hypertension[ICD10: I10] Diagnosis: Chronic pain syndrome[ICD10: G89.4] Carlyn Everett MD, [facility] CPT-4: 63967 01/07/2018 ([id number]) 51992 EST. PATIENT, LEVEL IV Diagnosis: Essential (primary) hypertension[ICD10: I10] Diagnosis: Type 2 diabetes mellitus without complications[ICD10: E11.9] Carlyn Everett MD, [facility] CPT-4: 68255 2017 ([id number]) 75562 EST. PATIENT, LEVEL IV Diagnosis: Type 2 diabetes mellitus with hyperglycemia[ICD10: E11.65] Diagnosis: Essential (primary) hypertension[ICD10: I10] Diagnosis: Pain in left shoulder[ICD10: M25.512] Diagnosis: Pain in right shoulder[ICD10: M25.511] Diagnosis: Pain in left knee[ICD10: M25.562] Diagnosis: Pain in right knee[ICD10: M25.561] Vonda Everett MD, [facility] CPT- 4: 73534 09/09/2017 19028 EST. PATIENT, LEVEL IV Diagnosis: Essential (primary) hypertension[ICD10: I10] Diagnosis: Type 2 diabetes mellitus with hyperglycemia[ICD10: E11.65] Diagnosis: Low back pain[ICD10: M54.5] Sunitha Everett MD, [facility] CPT-4: 11148 06/08/2017 ([id number]) 75036 EST. PATIENT, LEVEL IV Diagnosis: Essential (primary) hypertension[ICD10: I10] Diagnosis: Type 2 diabetes mellitus with hyperglycemia[ICD10: E11.65] Diagnosis: Low back pain[ICD10: M54.5] Sunitha Everett MD, [facility] CPT-4: 17031 04/15/2017 ([id number]) 35220 EST. PATIENT, LEVEL IV Diagnosis: Essential (primary) hypertension[ICD10: I10] Diagnosis: Type 2 diabetes mellitus with hyperglycemia[ICD10: E11.65] Diagnosis: Low back pain[ICD10: M54.5] Vonda Everett MD, [facility] CPT-4: 77531 02/16/2017 [id number] EST. 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 A chest xray has been ordered as have antibiotics. The pt is aware of the diagnosis and the need for acute treatment of this illness. Right knee pain -xray knee-rx for voltaren gel 03/18/2018 Appointment: Carlyn Higginbotham WPtel: [address] [place], [place] [phone] (30 min) [facility] 03/18/2018 Patient Education: Patient Medication Summary Completed 03/18/2018 Appointment: Carlyn Higginbotham WPtel: [phone] [place] (30 min) Complex 03/17/2018 Appointment: Carlyn Higginbotham WPtel: [phone] [facility] [place] [address] (15 min) Moderate 03/10/2018 Appointment: Carlyn Higginbotham WPtel: [facility] [place] [address] (15 min) Moderate 02/08/2018 Visit Plan: DM -decrease levemir to 4 units daily -monitor blood sugars FZU-rkxmmcdufv-ew changes Chronic pain -well controlled with fentanyl patch -no changes at this time 01/07/2018 Appointment: Carlyn Higginbotham WPtel: [address] [place] [address] (15 min) Moderate 01/07/2018 Patient Education: Patient [...] AT HS 2017 Appointment: Carlyn Higginbotham WPtel: [phone] [place] (15 min) Moderate 2017 Patient Education: [...] 175mcg. 09/09/2017 [phone] (15 min) Moderate 09/09/2017 Patient Education: [...] record. 06/08/2017 App[facility]ment[id number] (30 min) Complex 06/08/2017 Patient Education: Patient [...] over-medication. 04/15/2017 Appointment: [facility] Pat[phone] [place] (30 min) Complex 04/15/2017 Patient Education: [...] today. 02/16/2017 App[facility]ment: [phone] [place] (15 min) Moderate 02/16/2017 Patient [...] concerns. 11/09/2016 Appointment: [facility] Pat[phone] (30 min) Complex 11/09/2016 Patient Education: Patient Medication Summary Completed 11/09/2016 Care Plan: Referral Order SNOMED-CT : [id number] Pending 11/09/2016 Patient Education: Patient Medication Summary [...] Follow up weight in 1 month Neck fhxo-zpabqfmdxyo-Ohqn PT focus neck/upper body Right earache-cerumen removed with water pick today in the office 07/18/2015 Appointment: (30 min) Complex 07/18/2015 Patient Education: Patient Medication Summary Completed 07/18/2015 Patient Education: Obesity Completed 07/18/2015 Patient Education: .Cervicalgia Neck Pain Completed 07/18/2015 [phone] Referral Completed 06/25/2015 Visit Plan: Hypertension - [...] normal liver response to medications. 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 I spent over an hour with the patient in direct contact. 06/17/2015 Appointment: Vonda Everett WPtel: [phone] [facility] New Patient 06/17/2015 Patient Education: Patient Medication Summary Completed 06/17/2015 Patient Education: Obesity Completed 06/17/2015 Patient Education: Hypertension Completed 06/17/2015 Care Plan: Referral Order SNOMED-CT : [id number] Ordered 06/17/2015 Referral: Jorge Lusi Carroll Referral Initiated Referral: [facility] WPtel: [phone] [facility] Referral Appointment Requested Instructions Comment . Hypertension [...] normal liver response to medications. referral to [facility] therapy for [...] Add 1 scoop of whey protein from [facility] to 2 feedings per day . Hypertension [...] Follow up weight in 1 month Neck mhhg-pgoxuwqzpmr-Wojt PT focus neck/upper body Right earache-cerumen removed [...] to 4 units daily -monitor blood sugars CWP-aihsagcvuc-ie changes Chronic pain -well controlled with fentanyl [...]
--- OUTSIDE RECORDS SUMMARY | 2018-08-09 12:03 | XMS REPORT | CCD ---
Author Author [facility] Organization [facility] Address [address] [place] [address] Phone Care Team Providers Care Warehousing Technician Name Role Phone PP Unavailable CCM Unavailable Summary Purpose Interface Exchange Insurance Providers Payer name Policy type / Coverage type Covered alliance party ID Effective Begin Date Effective End Date WPS Medicare Part B Medicare Part B [id number] Unknown Unknown [facility] Insurance Medicare Part B [id number] Unknown Unknown Family history Father Diagnosis Age At Onset Arthritis Unknown Hypertension Unknown Mother Diagnosis Age At Onset Diabetes mellitus Type 2 Unknown Depression Unknown Arthritis Unknown Stroke Unknown Hypertension Unknown Sister Diagnosis Age At Onset Colon cancer Unknown Social History Social History Element Codes Description Effective Dates Marital status Unknown Maurice 01/07/2018 Living arrangements Unknown Long-Term [facility] 04/15/2017 Number of children Unknown 3 06/17/2015 Employment Unknown Retired 06/17/[address]: 2679675 Quit over 10 years ago 15+ 06/17/[address]: 726195516 Never drinks alcohol 06/17/2015 Allergies, Adverse Reactions, [...] hydrocodone 10 mg-acetaminophen 325 mg tablet RxNorm: 194040 2 Tablet(s) PO scheduled TID 03/23/2018 04/21/2018 Active Not to exceed 3gm/24hr acetaminophen cefdinir 300 mg capsule RxNorm: 938480 1 Capsule(s) PO BID 03/18/2018 03/24/2018 Inactive Zithromax Z-Eilu 250 mg tablet RxNorm: 789425 Tablet(s) PO 03/18/2018 No Stop Date Active albuterol sulfate concentrate 5 mg/mL(0.5 %) solution for nebulization RxNorm: 077559 1 Vial Milliliter(s) INH TID PRN as needed congestion 03/18/2018 No Stop Date Active Voltaren 1 % topical gel RxNorm: 362174 4 Gram(s) TOP QID 03/18/2018 No Stop Date Active hydrochlorothiazide 25 mg tablet RxNorm: 328927 GIVE 1 TABLET VIA PEG TUBE ONCE DAILY 03/11/2018 09/06/2018 Active Generic For:HYDRODIURIL 25 MG TABLET 03/11/2018 9:15:32 AM fentanyl 100 mcg/hr transdermal patch RxNorm: 339617 1 Patch TD Q72H 03/02/2018 03/31/2018 Active Duragesic 75 mcg/hr transdermal patch RxNorm: 066519 1 Patch TD Q72H 03/02/2018 03/31/2018 Active hydrocodone 10 mg-acetaminophen 325 mg tablet RxNorm: 108602 2 Tablet(s) PO scheduled TID 02/18/2018 03/22/2018 Inactive Not to exceed 3gm/24hr acetaminophen hyoscyamine 0.125 mg disintegrating tablet RxNorm: 6748791 Tablet(s) 1-2 Tablet(s) PO Q8 as needed 02/08/2018 No Stop Date Active fentanyl 100 mcg/hr transdermal patch RxNorm: 757420 1 Patch TD Q72H 02/04/2018 03/01/2018 Inactive hydrocodone 10 mg-acetaminophen 325 mg tablet RxNorm: 412865 2 Tablet(s) PO scheduled TID 02/04/2018 02/17/2018 Inactive Not to exceed 3gm/24hr acetaminophen Duragesic 75 mcg/hr transdermal patch RxNorm: 846284 1 Patch TD Q72H 02/04/2018 03/01/2018 Inactive Levemir FlexTouch U-100 Insulin 100 unit/mL (3 mL) subcutaneous pen RxNorm: 674748 4 Unit(s) SQ QHS 01/07/2018 No Stop Date Active Duragesic 75 mcg/hr transdermal patch RxNorm: 877455 1 Patch TD Q72H 01/07/2018 02/03/2018 Inactive fentanyl 100 mcg/hr transdermal patch RxNorm: 802480 1 Patch TD Q72H 01/07/2018 02/03/2018 Inactive hydrocodone 10 mg-acetaminophen 325 mg tablet RxNorm: 996714 2 Tablet(s) PO scheduled TID 01/05/2018 02/03/2018 Inactive Not to exceed 3gm/24hr acetaminophen hydrocodone 10 mg-acetaminophen 325 mg tablet RxNorm: 758322 2 Tablet(s) PO scheduled TID and 1 tab q 4 as needed 01/04/2018 01/04/2018 Inactive Not to exceed 3gm/24hr acetaminophen cyanocobalamin (vit B-12) 1,000 mcg tablet RxNorm: 281242 1 Tablet(s) PO daily 12/28/2017 11/22/2018 Active baclofen 10 mg tablet RxNorm: 451612 Tablet(s) TAKE 1 TABLET THREE TIMES DAILY VIA STOMACH TUBE 12/27/2017 05/25/2018 Active 10/07/2017 5:36:15 PM 10/07/2017 5:36:13 PM N O T I C E Last quantity doesn't match original quantity Duragesic 75 mcg/hr transdermal patch RxNorm: 310199 1 Patch TD Q72H 12/22/2017 01/06/2018 Inactive fentanyl 100 mcg/hr transdermal patch RxNorm: 023202 1 Patch TD Q72H 12/22/2017 01/06/2018 Inactive hydrocodone 10 mg-acetaminophen 325 mg tablet RxNorm: 544033 2 Tablet(s) PO scheduled TID and 1 tab q 4 as needed 12/20/2017 01/03/2018 Inactive Not to exceed 3gm/24hr acetaminophen hyoscyamine 0.125 mg disintegrating tablet RxNorm: 5184324 1-2 Tablet(s) PO Q8 as needed 12/14/2017 02/07/2018 Inactive Duragesic 75 mcg/hr transdermal patch RxNorm: 722334 1 Patch TD Q72H 12/06/2017 12/21/2017 Inactive fentanyl 100 mcg/hr transdermal patch RxNorm: 344249 1 Patch TD Q72H 12/06/2017 12/21/2017 Inactive hydrocodone 10 mg-acetaminophen 325 mg tablet RxNorm: 788093 2 Tablet(s) PO scheduled TID and 1 tab q 4 as needed 11/29/2017 12/19/2017 Inactive Not to exceed 3gm/24hr acetaminophen Duragesic 75 mcg/hr transdermal patch RxNorm: 524940 1 Patch TD Q72H 11/11/2017 12/05/2017 Inactive hydrocodone 10 mg-acetaminophen 325 mg tablet RxNorm: 671592 2 Tablet(s) PO scheduled TID and 1 tab q 4 as needed 11/09/2017 11/28/2017 Inactive Not to exceed 3gm/24hr acetaminophen Levemir FlexTouch U-100 Insulin 100 unit/mL (3 mL) subcutaneous pen RxNorm: 735884 8 Unit(s) SQ QHS 11/09/2017 01/06/2018 Inactive fentanyl 100 mcg/hr transdermal patch RxNorm: 153906 1 Patch TD Q72H 2017 12/05/2017 Inactive hyoscyamine 0.125 mg disintegrating tablet RxNorm: 9856569 1-2 Tablet(s) PO Q8 as needed 11/03/2017 12/13/2017 Inactive carvedilol 3.125 mg tablet RxNorm: 600767 GIVE 1 TABLET VIA PEG TUBE 2 TIMES A DAY 10/22/2017 01/19/2018 Inactive Generic For:COREG 3.125MG 10/22/2017 9:23:30 AM hydrocodone 10 mg-acetaminophen 325 mg tablet RxNorm: 581473 2 Tablet(s) PO scheduled TID and 1 tab q 4 as needed 10/22/2017 2017 Inactive Not to exceed 3gm/24hr acetaminophen fentanyl 100 mcg/hr transdermal patch RxNorm: 129602 1 Patch TD Q72H 10/20/2017 11/07/2017 Inactive Duragesic 75 mcg/hr transdermal patch RxNorm: 799544 1 Patch TD Q72H 10/20/2017 11/10/2017 Inactive lorazepam 0.5 mg tablet RxNorm: 399710 1 Tablet(s) PO BID and 1 tab q 6 hours prn 10/18/2017 No Stop Date Active baclofen 10 mg tablet RxNorm: 546468 TAKE 1 TABLET THREE TIMES DAILY VIA STOMACH TUBE 10/07/2017 12/26/2017 Inactive 10/07/2017 5:36:15 PM 10/07/2017 5:36:13 PM N O T I C E Last quantity doesn't match original quantity cranberry extract 500 mg tablet RxNorm: 7264084 1 Tablet(s) PO QAM 10/04/2017 01/31/2018 Inactive Cipro 500 mg tablet RxNorm: 067628 1 Tablet(s) PO BID 10/04/2017 10/03/2017 Inactive dc keflex hydrocodone 10 mg-acetaminophen 325 mg tablet RxNorm: 292716 2 Tablet(s) PO scheduled TID as needed 10/04/2017 10/21/2017 Inactive Not to exceed 3gm/24hr acetaminophen cranberry extract 500 mg tablet RxNorm: 3542175 1 Tablet(s) PO QAM 10/04/2017 10/03/2017 Inactive Cipro 500 mg tablet RxNorm: 615148 1 Tablet(s) PO BID 10/04/2017 10/10/2017 Inactive dc keflex Duragesic 75 mcg/hr transdermal patch RxNorm: 190263 1 Patch TD Q72H 09/20/2017 10/19/2017 Inactive fentanyl 100 mcg/hr transdermal patch RxNorm: 570454 1 Patch TD Q72H 09/20/2017 10/19/2017 Inactive hyoscyamine 0.125 mg disintegrating tablet RxNorm: 1064223 1 Tablet(s) PO TID and 1 Tablet Q4H prn increased secretions 09/15/2017 11/02/2017 Inactive hydrocodone 10 mg-acetaminophen 325 mg tablet RxNorm: 526016 2 Tablet(s) PO scheduled TID and 1-2 Tabs Q4H PRN pain 09/15/2017 10/03/2017 Inactive Not to exceed 3gm/24hr acetaminophen lorazepam 0.5 mg tablet RxNorm: 861605 1 Tablet(s) PO BID 09/15/2017 10/17/2017 Inactive Lexapro 10 mg tablet RxNorm: 565767 1 Tablet(s) PO daily 09/10/2017 09/14/2017 Inactive lisinopril 10 mg tablet RxNorm: 385689 1 Tablet(s) PO daily 09/09/2017 06/05/2018 Active Levemir FlexTouch U-100 Insulin 100 unit/mL (3 mL) subcutaneous pen RxNorm: 203317 10 Unit(s) daily 09/09/2017 09/15/2017 Inactive Duragesic 75 mcg/hr transdermal patch RxNorm: 524183 1 Patch TD Q72H 09/09/2017 09/19/2017 Inactive nystatin 100,000 unit/gram topical cream RxNorm: 665766 1 Gram(s) TOP TID until healed to gaulding 09/06/2017 01/03/2018 Inactive nystatin 100,000 unit/gram topical cream RxNorm: 075458 1 Gram(s) TOP TID until healed to gaulding 09/06/2017 09/05/2017 Inactive hydrocodone 10 mg-acetaminophen 325 mg tablet RxNorm: 125009 2 Tablet(s) PO scheduled TID as needed 08/31/2017 09/14/2017 Inactive Not to exceed 3gm/24hr acetaminophen fentanyl 100 mcg/hr transdermal patch RxNorm: 686062 1 Patch TD Q72H 08/24/2017 09/19/2017 Inactive fentanyl 50 mcg/hr transdermal patch RxNorm: 377417 1 Patch TD Q72H 08/24/2017 09/08/2017 Inactive fentanyl 25 mcg/hr transdermal patch RxNorm: 263128 1 Patch TD Q72H 08/24/2017 08/24/2017 Inactive hyoscyamine 0.125 mg disintegrating tablet RxNorm: 5342471 Tablet(s) 1-2 Tablet(s) PO Q8 as needed 08/23/2017 09/14/2017 Inactive hydrocodone 10 mg-acetaminophen 325 mg tablet RxNorm: 973812 1 Tablet(s) PO scheduled TID et Q6 hours as needed 08/18/2017 08/30/2017 Inactive Not to exceed 3gm/24hr acetaminophen hydrochlorothiazide 25 mg tablet RxNorm: 652127 GIVE 1 TABLET VIA PEG TUBE ONCE DAILY 08/17/2017 02/12/2018 Inactive Generic For:HYDRODIURIL 25 MG TABLET 08/17/2017 9:01:54 AM08/11/2017 10:12:00 AM lorazepam 0.5 mg tablet RxNorm: 023999 1/2 Tablet(s) PO BID 08/03/2017 09/14/2017 Inactive fentanyl 100 mcg/hr transdermal patch RxNorm: 218159 1 Patch TD Q72H 07/26/2017 08/23/2017 Inactive fentanyl 25 mcg/hr transdermal patch RxNorm: 602850 1 Patch TD Q72H 07/26/2017 08/23/2017 Inactive hydrocodone 10 mg-acetaminophen 325 mg tablet RxNorm: 667254 1 Tablet(s) PO scheduled TID et Q6 hours as needed 07/16/2017 08/14/2017 Inactive Not to exceed 3gm/24hr acetaminophen hyoscyamine 0.125 mg disintegrating tablet RxNorm: 9931547 Tablet(s) 1-2 Tablet(s) PO Q8 as needed 07/13/2017 08/01/2017 Inactive baclofen 10 mg tablet RxNorm: 974452 TAKE 1 TABLET THREE TIMES DAILY VIA STOMACH TUBE 07/12/2017 10/06/2017 Inactive 07/12/2017 9:04:08 AM N O T I C E Last quantity doesn't match original quantity lorazepam 0.5 mg tablet RxNorm: 248667 1/2 Tablet(s) PO BID 07/02/2017 08/02/2017 Inactive fentanyl 100 mcg/hr transdermal patch RxNorm: 941448 1 Patch TD Q72H 06/28/2017 07/25/2017 Inactive fentanyl 25 mcg/hr transdermal patch RxNorm: 024766 1 Patch TD Q72H 06/28/2017 07/25/2017 Inactive hyoscyamine 0.125 mg disintegrating tablet RxNorm: 6964697 Tablet(s) 1-2 Tablet(s) PO Q8 as needed 06/03/2017 06/22/2017 Inactive fentanyl 25 mcg/hr transdermal patch RxNorm: 869691 1 Patch TD Q72H 05/26/2017 06/24/2017 Inactive Levemir FlexTouch U-100 Insulin 100 unit/mL (3 mL) subcutaneous pen RxNorm: 011130 20 Unit(s) SQ BID 05/26/2017 09/08/2017 Inactive fentanyl 100 mcg/hr transdermal patch RxNorm: 307260 1 Patch TD Q72H 05/26/2017 06/24/2017 Inactive hydrocodone 10 mg-acetaminophen 325 mg tablet RxNorm: 827222 1 Tablet(s) PO scheduled BID et Q6 hours as needed 05/12/2017 05/11/2017 Inactive hydrocodone 10 mg-acetaminophen 325 mg tablet RxNorm: 476828 1 Tablet(s) PO scheduled TID et Q6 hours as needed 05/12/2017 06/10/2017 Inactive Not to exceed 3gm/24hr acetaminophen docusate sodium 100 mg tablet RxNorm: 6420274 1 Tablet(s) PO BID as needed if no bowel movement 05/10/2017 05/09/2017 Inactive lisinopril 20 mg tablet RxNorm: 677145 1 Tablet(s) PO daily 05/10/2017 09/08/2017 Inactive docusate sodium 100 mg tablet RxNorm: 9181246 1 Tablet(s) PO BID as needed if no bowel movement 05/10/2017 09/14/2017 Inactive fentanyl 25 mcg/hr transdermal patch RxNorm: 687525 1 Patch TD Q72H 05/03/2017 05/25/2017 Inactive lorazepam 0.5 mg tablet RxNorm: 539218 1/2 Tablet(s) PO BID 05/03/2017 07/01/2017 Inactive fentanyl 100 mcg/hr transdermal patch RxNorm: 932746 1 Patch TD Q72H 04/27/2017 05/25/2017 Inactive carvedilol 3.125 mg tablet RxNorm: 215619 Tablet(s) GIVE 1 TABLET VIA PEG TUBE DAILY 04/15/2017 10/21/2017 Inactive Levemir FlexTouch 100 unit/mL (3 mL) subcutaneous insulin pen RxNorm: 694497 10 Unit(s) SQ BID 04/15/2017 2017 Inactive hyoscyamine 0.125 mg disintegrating tablet RxNorm: 0651724 1-2 Tablet(s) PO Q8 as needed 04/14/2017 05/03/2017 Inactive hydrocodone 10 mg-acetaminophen 325 mg tablet RxNorm: 264331 1 Tablet(s) PO scheduled BID et Q6 hours as needed 04/13/2017 05/02/2017 Inactive baclofen 10 mg tablet RxNorm: 898494 TAKE 1 TABLET THREE TIMES DAILY VIA STOMACH TUBE 04/08/2017 05/22/2017 Inactive 04/08/2017 9:32:07 AM fentanyl 25 mcg/hr transdermal patch RxNorm: 554861 1 Patch TD Q72H 04/05/2017 05/02/2017 Inactive lidocaine 10 mg/mL (1 %) injection solution RxNorm: 0390843 1 Milliliter(s) Inj daily Mix with rocephin 03/31/2017 03/30/2017 Inactive Pt resides at [facility] lidocaine 10 mg/mL (1 %) injection solution RxNorm: 8747853 1 Milliliter(s) Inj daily Mix with rocephin 03/31/2017 04/06/2017 Inactive Pt resides at [facility] fentanyl 100 mcg/hr transdermal patch RxNorm: 775669 1 Patch TD Q72H 03/29/2017 04/26/2017 Inactive nystatin 100,000 unit/gram topical powder RxNorm: 631696 APPLY UNDER BREASTS TWICE DAILY FOR YEAST SKIN INFECTION AND APPLY TO UNDERARM AND ABDOMINAL FOLDS AND PERIAREA TWICE DAILY 03/29/2017 03/28/2017 Inactive 03/27/2017 9:12:50 AM nystatin 100,000 unit/gram topical powder RxNorm: 304380 APPLY UNDER BREASTS TWICE DAILY FOR YEAST SKIN INFECTION AND APPLY TO UNDERARM AND ABDOMINAL FOLDS AND PERIAREA TWICE DAILY 03/29/2017 09/14/2017 Inactive 03/29/2017 9:42:55 AM03/27/2017 9:12:50 AM hyoscyamine 0.125 mg disintegrating tablet RxNorm: 4227636 1-2 Tablet(s) PO Q8 as needed 03/08/2017 03/27/2017 Inactive fentanyl 25 mcg/hr transdermal patch RxNorm: 067960 1 Patch TD Q72H 03/02/2017 03/31/2017 Inactive hydrocodone 10 mg-acetaminophen 325 mg tablet RxNorm: 918013 1 Tablet(s) PO scheduled BID et Q6 hours as needed 02/17/2017 03/18/2017 Inactive fentanyl 100 mcg/hr transdermal patch RxNorm: 129382 1 Patch TD Q72H 02/17/2017 03/18/2017 Inactive Lexapro 10 mg tablet RxNorm: 467527 1 Tablet(s) PO daily 02/05/2017 04/14/2017 Inactive Lexapro 10 mg tablet RxNorm: 212486 1 Tablet(s) PO daily 02/05/2017 02/04/2017 Inactive fentanyl 25 mcg/hr transdermal patch RxNorm: 230227 1 Patch TD Q72H 02/04/2017 03/01/2017 Inactive cyanocobalamin (vit B-12) 1,000 mcg tablet RxNorm: 032675 1 Tablet(s) PO daily 01/18/2017 12/13/2017 Inactive hyoscyamine 0.125 mg disintegrating tablet RxNorm: 4595392 Tablet(s) 1-2 Tablet(s) PO Q8 as needed 01/18/2017 02/06/2017 Inactive baclofen 10 mg tablet RxNorm: 272002 TAKE 1 TABLET THREE TIMES DAILY VIA STOMACH TUBE 01/04/2017 02/17/2017 Inactive 01/04/2017 9:25:18 AM fentanyl 100 mcg/hr transdermal patch RxNorm: 148804 1 Patch TD Q72H 12/25/2016 01/23/2017 Inactive hydrochlorothiazide 25 mg tablet RxNorm: 694229 Tablet(s) GIVE 1 TABLET VIA PEG TUBE ONCE A DAY 12/14/2016 07/11/2017 Inactive fentanyl 100 mcg/hr transdermal patch RxNorm: 146263 1 Patch TD Q72H 11/25/2016 12/24/2016 Inactive hyoscyamine 0.125 mg disintegrating tablet RxNorm: 8375326 Tablet(s) 1-2 Tablet(s) PO Q8 as needed 11/25/2016 12/14/2016 Inactive nystatin 100,000 unit/gram topical powder RxNorm: 852070 APPLY UNDER BREASTS TWICE DAILY FOR YEAST SKIN INFECTION AND APPLY TO UNDERARM AND ABDOMINAL FOLDS AND PERIAREA TWICE DAILY 11/24/2016 01/22/2017 Inactive 11/24/2016 9:34:02 AM hydrocodone 10 mg-acetaminophen 325 mg tablet RxNorm: 308212 1 Tablet(s) PO scheduled BID et Q6 hours as needed 11/02/2016 12/01/2016 Inactive cyanocobalamin (vit B-12) 1,000 mcg tablet RxNorm: 613512 1 Tablet(s) PO daily 11/02/2016 01/17/2017 Inactive hyoscyamine 0.125 mg disintegrating tablet RxNorm: 2636130 1-2 Tablet(s) PO Q8 as needed 10/19/2016 11/24/2016 Inactive fentanyl 100 mcg/hr transdermal patch RxNorm: 224543 1 Patch TD Q72H 10/13/2016 11/11/2016 Inactive hydrocodone 10 mg-acetaminophen 325 mg tablet RxNorm: 099283 1 Tablet(s) PO scheduled BID et Q6 hours as needed 10/05/2016 11/01/2016 Inactive baclofen 10 mg tablet RxNorm: 387815 TAKE 1 TABLET THREE TIMES DAILY VIA STOMACH TUBE 10/01/2016 11/14/2016 Inactive 10/01/2016 9:24:37 AM carvedilol 3.125 mg tablet RxNorm: 863615 GIVE 1 TABLET VIA PEG TUBE 2 TIMES A DAY 09/30/2016 12/28/2016 Inactive Generic For:COREG 3.125MG 09/30/2016 1:12:28 PM09/25/2016 9:06:11 AM Probiotic Blend 2 million cell-50 mg capsule RxNorm: 1 Capsule(s) PO BID 09/17/2016 09/23/2016 Inactive Keflex 500 mg capsule RxNorm: 118313 1 Capsule(s) PO TID 09/17/2016 09/23/2016 Inactive hyoscyamine 0.125 mg/5 mL oral elixir RxNorm: 2918063 5 Milliliter(s) PO TID 09/08/2016 09/17/2016 Inactive hyoscyamine 0.125 mg/5 mL oral elixir RxNorm: 9198541 5 Milliliter(s) PO TID 09/08/2016 09/07/2016 Inactive hyoscyamine 0.125 mg disintegrating tablet RxNorm: 0945444 1-2 Tablet(s) PO Q8 as needed 09/07/2016 10/18/2016 Inactive fentanyl 100 mcg/hr transdermal patch RxNorm: 222283 1 Patch TD Q72H 09/01/2016 09/30/2016 Inactive ranitidine 150 mg tablet RxNorm: 921313 1 Tablet(s) PO BID 08/25/2016 No Stop Date Active hydrocodone 10 mg-acetaminophen 325 mg tablet RxNorm: 739716 1 Tablet(s) PO scheduled BID et Q6 hours as needed 08/24/2016 09/22/2016 Inactive cyanocobalamin (vit B-12) 1,000 mcg tablet RxNorm: 815415 1 Tablet(s) PO daily 08/12/2016 11/01/2016 Inactive cyanocobalamin (vit B-12) 1,000 mcg tablet RxNorm: 717307 1 Tablet(s) PO daily 08/12/2016 08/11/2016 Inactive hydrocodone 10 mg-acetaminophen 325 mg tablet RxNorm: 128623 1-2 Tablet(s) PO Q6 as needed 08/03/2016 08/17/2016 Inactive fentanyl 100 mcg/hr transdermal patch RxNorm: 574167 1 Patch TD Q72H 08/03/2016 08/31/2016 Inactive nystatin 100,000 unit/gram topical powder RxNorm: 854548 APPLY UNDER BREASTS TWICE DAILY FOR YEAST SKIN INFECTION AND APPLY TO UNDERARM AND ABDOMINAL FOLDS AND PERIAREA TWICE DAILY 07/17/2016 09/14/2016 Inactive 07/17/2016 3:56:54 PM fentanyl 100 mcg/hr transdermal patch RxNorm: 569570 1 Patch TD Q72H 07/15/2016 08/02/2016 Inactive lisinopril 20 mg tablet RxNorm: 437015 1 Tablet(s) PO daily 07/02/2016 03/28/2017 Inactive hydrocodone 10 mg-acetaminophen 325 mg tablet RxNorm: 837253 1-2 Tablet(s) PO Q6 as needed 07/01/2016 07/15/2016 Inactive Xarelto 20 mg tablet RxNorm: 1162771 Tablet(s) TAKE 1 TABLET VIA PEG TUBE AT BEDTIME 06/19/2016 04/14/2017 Inactive fentanyl 100 mcg/hr transdermal patch RxNorm: 053056 1 Patch TD Q72H 06/17/2016 07/14/2016 Inactive nystatin 100,000 unit/gram topical powder RxNorm: 697893 APPLY TO UNDER BREASTS TWICE DAILY FOR YEAST SKIN INFECTION AND APPLY TO UNDERARM AND ABDOMINAL FOLDS AND PERIAREA TWICE DAILY 06/15/2016 07/16/2016 Inactive Generic For:MYCOSTATIN 100,000 UNITS/GM PW 06/15/2016 12:28:26 PM fentanyl 100 mcg/hr transdermal patch RxNorm: 832819 1 Patch TD Q72H 06/05/2016 06/16/2016 Inactive hydrocodone 10 mg-acetaminophen 325 mg tablet RxNorm: 115210 1-2 Tablet(s) PO Q6 as needed 06/02/2016 06/16/2016 Inactive Probiotic Blend 2 million cell-50 mg capsule RxNorm: 1 Capsule(s) PO BID 05/13/2016 05/19/2016 Inactive nitrofurantoin 100 mg capsule RxNorm: 298399 1 Capsule(s) PO BID 05/13/2016 05/19/2016 Inactive nitrofurantoin 100 mg capsule RxNorm: 005491 1 Capsule(s) PO BID 05/13/2016 05/12/2016 Inactive fentanyl 75 mcg/hr transdermal patch RxNorm: 795111 1 Patch TD Q72H 05/13/2016 06/04/2016 Inactive Keflex 500 mg capsule RxNorm: 678946 1 Capsule(s) PO TID 05/07/2016 05/13/2016 Inactive Patient at [facility] Keflex 500 mg capsule RxNorm: 790338 1 Capsule(s) PO TID 05/07/2016 05/06/2016 Inactive hydrocodone 10 mg-acetaminophen 325 mg tablet RxNorm: 963991 1-2 Tablet(s) PO Q6 as needed 05/04/2016 06/01/2016 Inactive hydrochlorothiazide 25 mg tablet RxNorm: 870019 Tablet(s) GIVE 1 TABLET VIA PEG TUBE ONCE A DAY 04/29/2016 11/24/2016 Inactive hydrochlorothiazide 25 mg tablet RxNorm: 066238 GIVE 1 TABLET VIA PEG TUBE ONCE A DAY 04/22/2016 04/28/2016 Inactive Generic For:HYDRODIURIL 25 MG TABLET refill request fentanyl 75 mcg/hr transdermal patch RxNorm: 893457 1 Patch TD Q72H 04/17/2016 05/12/2016 Inactive Xarelto 20 mg tablet RxNorm: 7352208 TAKE 1 TABLET VIA PEG TUBE AT BEDTIME 04/16/2016 06/14/2016 Inactive 04/16/2016 9:08:52 AM citalopram 40 mg tablet RxNorm: 498588 1 Tablet(s) PO daily 04/02/2016 02/25/2017 Inactive citalopram 40 mg tablet RxNorm: 766664 1 Tablet(s) PO daily 03/27/2016 04/01/2016 Inactive hydrocodone 10 mg-acetaminophen 325 mg tablet RxNorm: 829972 1-2 Tablet(s) PO Q6 as needed 03/27/2016 04/25/2016 Inactive fentanyl 75 mcg/hr transdermal patch RxNorm: 325222 1 Patch TD Q72H 03/18/2016 04/16/2016 Inactive hydrocodone 10 mg-acetaminophen 325 mg tablet RxNorm: 605821 1-2 Tablet(s) PO Q6 as needed 03/11/2016 03/26/2016 Inactive citalopram 40 mg tablet RxNorm: 722122 1 Tablet(s) PO daily 03/04/2016 03/26/2016 Inactive Levemir FlexTouch U-100 Insulin 100 unit/mL (3 mL) subcutaneous pen RxNorm: 928383 20 Unit(s) SQ BID 03/02/2016 09/27/2016 Inactive lisinopril 20 mg tablet RxNorm: 822826 1 Tablet(s) PO daily 02/25/2016 07/01/2016 Inactive Ativan 0.5 mg tablet RxNorm: 613382 1 Tablet(s) PO Q4H as needed 02/18/2016 04/14/2017 Inactive Xarelto 20 mg tablet RxNorm: 3048411 TAKE 1 TABLET VIA PEG TUBE AT BEDTIME 02/12/2016 04/11/2016 Inactive 02/12/2016 9:08:22 AM hydrocodone 10 mg-acetaminophen 325 mg tablet RxNorm: 253743 1-2 Tablet(s) PO Q6 as needed 02/12/2016 03/10/2016 Inactive fentanyl 75 mcg/hr transdermal patch RxNorm: 731189 1 Patch TD Q72H 02/11/2016 03/11/2016 Inactive citalopram 20 mg tablet RxNorm: 565920 1 Tablet(s) PO daily 01/28/2016 03/03/2016 Inactive fentanyl 75 mcg/hr transdermal patch RxNorm: 230015 1 TD Q72H 01/17/2016 02/10/2016 Inactive hydrocodone 10 mg-acetaminophen 325 mg tablet RxNorm: 414151 1-2 Tablet(s) PO Q6 as needed 01/07/2016 02/05/2016 Inactive fentanyl 50 mcg/hr transdermal patch RxNorm: 709514 1 TD Q72H 01/01/2016 01/16/2016 Inactive fentanyl 50 mcg/hr transdermal patch RxNorm: 908922 1 TD q 3 days 12/26/2015 12/31/2015 Inactive Xarelto 20 mg tablet RxNorm: 1806904 TAKE 1 TABLET VIA PEG TUBE AT BEDTIME 12/17/2015 02/11/2016 Inactive 12/16/2015 3:27:57 PM12/14/2015 9:45:17 AM hydrocodone 10 mg-acetaminophen 325 mg tablet RxNorm: 016384 1-2 Tablet(s) PO Q6 as needed 12/06/2015 01/04/2016 Inactive fentanyl 50 mcg/hr transdermal patch RxNorm: 184656 1 TD q 3 days 12/06/2015 12/25/2015 Inactive fentanyl 25 mcg/hr transdermal patch RxNorm: 049711 1 TD q 3 days 11/18/2015 12/05/2015 Inactive Zithromax Z-Eliu 250 mg tablet RxNorm: 900126 1 Tablet(s) PO UD 10/09/2015 02/26/2016 Inactive z pack as directed- please write out instructions- pt at [facility] nystatin 100,000 unit/gram topical powder RxNorm: 864623 APPLY TO UNDER BREASTS TWICE DAILY FOR YEAST SKIN INFECTION AND APPLY TO UNDERARM AND ABDOMINAL FOLDS AND PERIAREA TWICE DAILY 10/07/2015 12/05/2015 Inactive Generic For:MYCOSTATIN 100,000 UNITS/GM PW 10/05/2015 12:07:35 PM fentanyl 25 mcg/hr transdermal patch RxNorm: 455407 1 TD q 3 days 10/03/2015 11/01/2015 Inactive fentanyl 25 mcg/hr transdermal patch RxNorm: 398311 1 TD q 3 days 09/27/2015 10/02/2015 Inactive fentanyl 25 mcg/hr transdermal patch RxNorm: 641692 1 TD q 3 days 09/17/2015 09/26/2015 Inactive fentanyl 25 mcg/hr transdermal patch RxNorm: 242256 1 TD q 3 days 08/30/2015 09/16/2015 Inactive hydrocodone 5 mg-acetaminophen 325 mg tablet RxNorm: 588380 1 Tablet(s) PO Q6 as needed 08/30/2015 09/28/2015 Inactive Diflucan 100 mg tablet RxNorm: 995737 1 Tablet(s) Miscellaneous per peg daily 07/29/2015 08/04/2015 Inactive fentanyl 25 mcg/hr transdermal patch RxNorm: 953538 1 TD q 3 days 07/18/2015 08/29/2015 Inactive hydrocodone 5 mg-acetaminophen 325 mg tablet RxNorm: 952228 1 Tablet(s) PO Q6 as needed 07/18/2015 08/29/2015 Inactive Diflucan 100 mg tablet RxNorm: 637727 1 Tablet(s) Miscellaneous per peg daily 06/17/2015 06/23/2015 Inactive Senna-S 8.6 mg-50 mg tablet RxNorm: 565808 1 Tablet(s) PO daily as needed constipation No Start Date Active Dulcolax (bisacodyl) 10 mg rectal suppository RxNorm: 947634 1 Suppository RTL daily as needed constipation No Start Date Active polyethylene glycol 3350 17 gram/dose oral powder RxNorm: 199754 17 Gram(s) PO daily as needed constipation No Start Date Active baclofen 10 mg tablet RxNorm: 395022 1 Tablet(s) PO TID No Start Date 09/30/2016 Inactive Ativan 0.5 mg tablet RxNorm: 909014 1 Tablet(s) PO Q4H as needed No Start Date 02/17/2016 Inactive ranitidine 150 mg tablet RxNorm: 553602 1 Tablet(s) PO daily No Start Date 08/24/2016 Inactive carvedilol 3.125 mg tablet RxNorm: 322277 1 Tablet(s) PO daily No Start Date 09/29/2016 Inactive citalopram 40 mg tablet RxNorm: 412871 1 Tablet(s) PO daily No Start Date 01/27/2016 Inactive Probiotic Blend oral RxNorm: oral No Start Date 05/12/2016 Inactive hydrochlorothiazide 25 mg tablet RxNorm: 933437 1 Tablet(s) PO daily No Start Date 04/21/2016 Inactive albuterol sulfate concentrate 5 mg/mL(0.5 %) solution for nebulization RxNorm: 508028 1 Vial INH daily as needed congestion No Start Date 03/17/2018 Inactive Levemir FlexTouch 100 unit/mL (3 mL) subcutaneous insulin pen RxNorm: 111054 10 Unit(s) SQ BID No Start Date 03/01/2016 Inactive Zithromax Z-Eliu 250 mg tablet RxNorm: 757789 1 Tablet(s) PO UD No Start Date 10/08/2015 Inactive z pack as directed- please write out instructions- pt at [facility] nystatin 100,000 unit/gram topical powder RxNorm: 791008 Gram(s) TOP BID as needed No Start Date 10/06/2015 Inactive pravastatin 40 mg tablet RxNorm: 747986 Tablet(s) PO daily No Start Date 04/14/2017 Inactive lorazepam 0.5 mg tablet RxNorm: 899256 1/2 Tablet(s) PO BID No Start Date 05/02/2017 Inactive Xarelto 20 mg tablet RxNorm: 1059818 1 Tablet(s) PO daily No Start Date 12/16/2015 Inactive fentanyl 25 mcg/hr transdermal patch RxNorm: 471879 1 TD q 3 days No Start Date 07/17/2015 Inactive lisinopril 20 mg tablet RxNorm: 370076 1 Tablet(s) PO daily No Start Date 02/24/2016 Inactive hydrocodone 5 mg-acetaminophen 325 mg tablet RxNorm: 760034 1 Tablet(s) PO Q6 as needed No Start Date 07/17/2015 Inactive citalopram 40 mg tablet RxNorm: 161397 1 Tablet(s) PO daily No Start Date 03/03/2016 Inactive hyoscyamine 0.125 mg disintegrating tablet RxNorm: 0473152 1-2 Tablet(s) PO Q8 as needed No [...] 30.7 pg 02/14/2018 Cbc With Differential Ord2 [place]% 7.4 % 02/14/2018 Cbc With Differential Ord2 [...] 2.14 K/ul 02/14/2018 Cbc With Differential Ord2 [place] ABS# 0.5 K/ul 02/14/2018 Cbc With Differential Ord2 Eos ABS# 0.3 K/ul 02/14/2018 Cbc With Differential Ord2 Baso ABS# 0.0 K/ul 02/14/2018 Comp Metabolic Jwi580 NA 142 mEq/L 02/14/2018 Comp Metabolic Xno405 K 4.5 mEq/L 02/14/2018 Comp Metabolic Bvk301 CL 97 mEq/L 02/14/2018 Comp Metabolic Dvh946 CO2 41.0 mEq/L 02/14/2018 Comp Metabolic Mbf727 ANION GAP 9 02/14/2018 Comp Metabolic Sgn372 GLUCOSE 111 mg/dL 02/14/2018 Comp Metabolic Ads662 Creat 0.6 mg/dL 02/14/2018 Comp Metabolic Mpx468 eGFR 108 ml/min/1.73m2 02/14/2018 Comp Metabolic Rsn826 BUN 32 mg/dL 02/14/2018 Comp Metabolic Yln494 B/C Ratio 54.2 Ratio 02/14/2018 Comp Metabolic Dek633 CALCIUM 8.9 mg/dL 02/14/2018 Comp Metabolic Mei144 ALK PHOS 81 U/L 02/14/2018 Comp Metabolic Epj269 AST(SGOT) 14 U/L 02/14/2018 Comp Metabolic Mgp355 ALT(SGPT) 11 U/L 02/14/2018 Comp Metabolic Kpm882 BILI T 0.3 mg/dL 02/14/2018 Comp Metabolic Zec790 ALBUMIN 3.4 g/dL 02/14/2018 Comp Metabolic Uhw067 TPRO 6.3 g/dL 02/14/2018 Comp Metabolic Mti699 GLOB 2.9 g/dL 02/14/2018 Comp Metabolic Jme174 A/G Ratio 1.2 Ratio 02/14/2018 Comp Metabolic Bpx798 Osmo 291 mOsmo 02/14/2018 %Hba1C Kgy415 % HbA1c 35045- 6 5.5 % 02/14/2018 %Hba1C Vlq626 Gluc Ave 111 mg/dL 02/14/2018 Prealbumin 415059 PREALBUMIN 27 mg/dL 11/24/2017 %Hba1C Gcu349 % HbA1c 93724- 6 5.5 % 11/04/2017 %Hba1C Fmc759 Gluc Ave 111 mg/dL 11/04/2017 Culture Urine [id number] URINE CULTURE SEE NOTES 10/04/2017 Culture Urine [id number] Continued Results 10/04/2017 Urine Culture Ucult Complete [...] Ord28 U-Com Culture to follow 10/01/2017 B12 Dev929 B12 >1500.00 pg/ml 02/19/2017 Cbc With Differential [...] 31.5 pg 02/02/2017 Cbc With Differential Ord2 [place]% 8.3 % 02/02/2017 Cbc With Differential Ord2 [...] 2.28 K/ul 02/02/2017 Cbc With Differential Ord2 [place] ABS# 0.6 K/ul 02/02/2017 Cbc With Differential Ord2 Eos ABS# 0.4 K/ul 02/02/2017 Cbc With Differential Ord2 Baso ABS# 0.0 K/ul 02/02/2017 %Hba1C Eeh887 % HbA1c 77380- 6 5.2 % 02/02/2017 %Hba1C Yob943 Gluc Ave 103 mg/dL 02/02/2017 Comp Metabolic Ivq261 NA 138 mEq/L 02/02/2017 Comp Metabolic Wod322 K 4.5 mEq/L 02/02/2017 Comp Metabolic Kel955 CL 98 mEq/L 02/02/2017 Comp Metabolic Sxu389 CO2 37.0 mEq/L 02/02/2017 Comp Metabolic Nqf392 ANION GAP 8 02/02/2017 Comp Metabolic Xiw722 GLUCOSE 94 mg/dL 02/02/2017 Comp Metabolic Fup834 Creat 0.7 mg/dL 02/02/2017 Comp Metabolic Shf803 eGFR 88 ml/min/1.73m2 02/02/2017 Comp Metabolic Dzp748 BUN 36 mg/dL 02/02/2017 Comp Metabolic Ply814 B/C Ratio 50.7 Ratio 02/02/2017 Comp Metabolic Itr518 CALCIUM 9.0 mg/dL 02/02/2017 Comp Metabolic Jqv051 ALK PHOS 78 U/L 02/02/2017 Comp Metabolic Zff892 AST(SGOT) 22 U/L 02/02/2017 Comp Metabolic Wdz216 ALT(SGPT) 28 U/L 02/02/2017 Comp Metabolic Oum012 BILI T 0.3 mg/dL 02/02/2017 Comp Metabolic Rgk149 ALBUMIN 3.3 g/dL 02/02/2017 Comp Metabolic Zhc295 TPRO 5.9 g/dL 02/02/2017 Comp Metabolic Hmk268 GLOB 2.6 g/dL 02/02/2017 Comp Metabolic Cxm350 A/G Ratio 1.3 Ratio 02/02/2017 Comp Metabolic Vwi261 Osmo 284 mOsmo 02/02/2017 %Hba1C Vus241 % HbA1c 40029- 6 5.0 % 10/29/2016 %Hba1C Thy599 Gluc Ave 97 mg/dL 10/29/2016 Culture Urine [id number] URINE CULTURE SEE NOTES 09/21/2016 Culture Urine [id number] Continued Results 09/21/2016 Urine Culture Ucult Complete [...] 32.4 pg 07/30/2016 Cbc With Differential Ord2 [place]% 7.2 % 07/30/2016 Cbc With Differential [...] 2.69 K/ul 07/30/2016 Cbc With Differential Ord2 [place] ABS# 0.5 K/ul 07/30/2016 Cbc With Differential Ord2 Eos ABS# 0.5 K/ul 07/30/2016 Cbc With Differential Ord2 Baso ABS# 0.0 K/ul 07/30/2016 Comp Metabolic Eec415 NA 141 mEq/L 07/30/2016 Comp Metabolic Iwl454 K 4.3 mEq/L 07/30/2016 Comp Metabolic Luw616 CL 100 mEq/L 07/30/2016 Comp Metabolic Viz052 CO2 33.0 mEq/L 07/30/2016 Comp Metabolic Lmm204 ANION GAP 12 07/30/2016 Comp Metabolic Itm875 GLUCOSE 64 mg/dL 07/30/2016 Comp Metabolic Rqk443 Creat 0.5 mg/dL 07/30/2016 Comp Metabolic Hjg691 eGFR 126 ml/min/1.73m2 07/30/2016 Comp Metabolic Dqj917 BUN 25 mg/dL 07/30/2016 Comp Metabolic Wzj426 B/C Ratio 48.1 Ratio 07/30/2016 Comp Metabolic Jpv097 CALCIUM 8.9 mg/dL 07/30/2016 Comp Metabolic Hna452 ALK PHOS 90 U/L 07/30/2016 Comp Metabolic Qcn713 AST(SGOT) 22 U/L 07/30/2016 Comp Metabolic Igu901 ALT(SGPT) 36 U/L 07/30/2016 Comp Metabolic Cdp807 BILI T 0.3 mg/dL 07/30/2016 Comp Metabolic Opg731 ALBUMIN 3.4 g/dL 07/30/2016 Comp Metabolic Qdk828 TPRO 6.0 g/dL 07/30/2016 Comp Metabolic Lrk316 GLOB 2.7 g/dL 07/30/2016 Comp Metabolic Ylf835 A/G Ratio 1.3 Ratio 07/30/2016 Comp Metabolic Zyb035 Osmo 284 mOsmo 07/30/2016 A1C Frequency Yxe076 A1CF 86161-5 [place] [facility] [place]: 05-12-2016 07/30/2016 %Hba1C Kzb006 % HbA1c 82265- 6 5.2 % 05/12/2016 %Hba1C Rjb294 Gluc Ave 103 mg/dL 05/12/2016 Culture Urine [id number] URINE CULTURE SEE NOTES 05/11/2016 Urine Culture [...] U-Com Culture to follow 05/06/2016 Culture Urine [id number] URINE CULTURE SEE NOTES 03/17/2016 Culture Urine [id number] Continued Results 03/17/2016 Urine Culture Ucult Complete [...] 32.0 pg 02/11/2016 Cbc With Differential Ord2 [place]% 9.1 % 02/11/2016 Cbc With Differential [...] 2.59 K/ul 02/11/2016 Cbc With Differential Ord2 [place] ABS# 0.6 K/ul 02/11/2016 Cbc With Differential Ord2 Eos ABS# 0.3 K/ul 02/11/2016 Cbc With Differential Ord2 Baso ABS# 0.0 K/ul 02/11/2016 Comp Metabolic Hbl038 NA 137 mEq/L 02/11/2016 Comp Metabolic Qto442 K 4.4 mEq/L 02/11/2016 Comp Metabolic Bhv199 CL 100 mEq/L 02/11/2016 Comp Metabolic Ncm697 CO2 25.0 mEq/L 02/11/2016 Comp Metabolic Nil915 ANION GAP 16 02/11/2016 Comp Metabolic Wzi827 GLUCOSE 99 mg/dL 02/11/2016 Comp Metabolic Tns750 Creat 0.6 mg/dL 02/11/2016 Comp Metabolic Riu184 eGFR 99 ml/min/1.73m2 02/11/2016 Comp Metabolic Sfr196 BUN 27 mg/dL 02/11/2016 Comp Metabolic Koc157 B/C Ratio 42.2 Ratio 02/11/2016 Comp Metabolic Dvs266 CALCIUM 9.2 mg/dL 02/11/2016 Comp Metabolic Yvj907 ALK PHOS 74 U/L 02/11/2016 Comp Metabolic Kas518 AST(SGOT) 24 U/L 02/11/2016 Comp Metabolic Tcx568 ALT(SGPT) 26 U/L 02/11/2016 Comp Metabolic Bhl413 BILI T 0.5 mg/dL 02/11/2016 Comp Metabolic Xdi152 ALBUMIN 3.5 g/dL 02/11/2016 Comp Metabolic Txe634 TPRO 6.2 g/dL 02/11/2016 Comp Metabolic Czj200 GLOB 2.7 g/dL 02/11/2016 Comp Metabolic Xcd318 A/G Ratio 1.3 Ratio 02/11/2016 Comp Metabolic Pdn301 Osmo 279 mOsmo 02/11/2016 Review of Systems [...] 1: 128/86 Code: 8480-6 BMI: 31.4 Code: 01028-2 Heart Rate 1: 72 bpm Height: 5'1" Weight: 166 lbs 06/17/2015 Blood Pressure 1: 110/78 Code: 8480-6 BMI: 33.3 Code: 99123-3 Heart Rate 1: 74 bpm Height: 5'1" [...] Present Encounters Encounter Performer Location Codes Date ([id number]) [id number] EST. PATIENT, LEVEL IV Diagnosis: Cough[ICD10: R05] Diagnosis: Pneumonia, unspecified organism[ICD10: J18.9] Diagnosis: Pain in right knee[ICD10: M25.561] Carlyn Everett MD, [facility] CPT- 4: 96503 03/18/2018 ([id number]) 71998 EST. PATIENT, LEVEL IV Diagnosis: Type 2 diabetes mellitus without complications[ICD10: E11.9] Diagnosis: Essential (primary) hypertension[ICD10: I10] Diagnosis: Chronic pain syndrome[ICD10: G89.4] Carlyn Everett MD, [facility] CPT-4: 02442 01/07/2018 ([id number]) 28806 EST. PATIENT, LEVEL IV Diagnosis: Essential (primary) hypertension[ICD10: I10] Diagnosis: Type 2 diabetes mellitus without complications[ICD10: E11.9] Carlyn Everett MD, [facility] CPT-4: 76605 2017 ([id number]) 84519 EST. PATIENT, LEVEL IV Diagnosis: Type 2 diabetes mellitus with hyperglycemia[ICD10: E11.65] Diagnosis: Essential (primary) hypertension[ICD10: I10] Diagnosis: Pain in left shoulder[ICD10: M25.512] Diagnosis: Pain in right shoulder[ICD10: M25.511] Diagnosis: Pain in left knee[ICD10: M25.562] Diagnosis: Pain in right knee[ICD10: M25.561] Vonda Everett MD, [facility] CPT- 4: 17378 09/09/2017 08514 EST. PATIENT, LEVEL IV Diagnosis: Essential (primary) hypertension[ICD10: I10] Diagnosis: Type 2 diabetes mellitus with hyperglycemia[ICD10: E11.65] Diagnosis: Low back pain[ICD10: M54.5] Sunitha Everett MD, [facility] CPT-4: 96683 06/08/2017 ([id number]) 44125 EST. PATIENT, LEVEL IV Diagnosis: Essential (primary) hypertension[ICD10: I10] Diagnosis: Type 2 diabetes mellitus with hyperglycemia[ICD10: E11.65] Diagnosis: Low back pain[ICD10: M54.5] Sunitha Everett MD, [facility] CPT-4: 81139 04/15/2017 ([id number]) 53876 EST. PATIENT, LEVEL IV Diagnosis: Essential (primary) hypertension[ICD10: I10] Diagnosis: Type 2 diabetes mellitus with hyperglycemia[ICD10: E11.65] Diagnosis: Low back pain[ICD10: M54.5] Vonda Everett MD, [facility] CPT-4: 47119 02/16/2017 [id number] EST. 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 A chest xray has been ordered as have antibiotics. The pt is aware of the diagnosis and the need for acute treatment of this illness. Right knee pain -xray knee-rx for voltaren gel 03/18/2018 Appointment: Carlyn Higginbotham WPtel: [address] [place], [place] [phone] (30 min) Complex 03/18/2018 Patient Education: Patient Medication Summary Completed 03/18/2018 Appointment: Carlyn Higginbotham WPtel: [address] [place], [place] [phone] (30 min) Complex 03/17/2018 Appointment: Carlyn Higginbotham WPtel: [address] [place], [place] [phone] [place] [address] (15 min) Moderate 03/10/2018 Appointment: Carlyn Higginbotham WPtel: [address] [place], [place] [phone] [place] [address] (15 min) Moderate 02/08/2018 Visit Plan: DM -decrease levemir to 4 units daily -monitor blood sugars SLQ-fsixujzbpk-xt changes Chronic pain -well controlled with fentanyl patch -no changes at this time 01/07/2018 Appointment: Carlyn Higginbotham WPtel: [address] [place], [place] [phone] [place] [address] (15 min) Moderate 01/07/2018 Patient Education: Patient [...] AT HS 2017 Appointment: Carlyn Higginbotham WPtel: [address] [place], [place] [phone] [place] [address] (15 min) Moderate 2017 Patient Education: Patient [...] 175mcg. 09/09/2017 [phone] [facility] (15 min) Moderate 09/09/2017 Patient [...] record. 06/08/2017 [phone] [facility] (30 min) Complex 06/08/2017 Patient Education: Patient [...] of over-medication. 04/15/2017 Appointment: [phone] [facility] (30 min) Complex 04/15/2017 Patient Education: Patient [...] today. 02/16/2017 App[facility] [phone] [facility] (15 min) Moderate 02/16/2017 Patient [...] concerns. 11/09/2016 Appointment: Sunitha Patel WPtel: [phone] [facility] (30 min) Complex 11/09/2016 Patient Education: Patient Medication Summary Completed 11/09/2016 Care Plan: Referral Order SNOMED-CT : [id number] Pending 11/09/2016 Patient Education: Patient Medication Summary [...] Follow up weight in 1 month Neck vjrz-edlhssskvvo-Ygyq PT focus neck/upper body Right earache-cerumen removed with water pick today in the office 07/18/2015 Appointment: (30 min) Complex 07/18/2015 Patient Education: Patient Medication Summary Completed 07/18/2015 Patient Education: Obesity Completed 07/18/2015 Patient Education: .Cervicalgia Neck Pain Completed 07/18/2015 [facility] [phone] [phone] Referral Completed 06/25/2015 Visit Plan: Hypertension [...] contact. 06/17/2015 [facility]ment: [facility] [phone] [facility] New Patient 06/17/2015 Patient Education: Patient Medication Summary Completed 06/17/2015 Patient Education: Obesity Completed 06/17/2015 Patient Education: Hypertension Completed 06/17/2015 Care Plan: Referral Order SNOMED-CT : [id number] Ordered 06/17/2015 Referral: Jorge Luis Carroll Referral Initiated [facility] [phone] [facility] Ref[facility] Appointment Requested Instructions Comment . [...] normal liver response to medications. referral to [facility] therapy for post stroke [...] Add 1 scoop of whey protein from [facility] to 2 feedings per day . [...] Follow up weight in 1 month Neck xqqi-xuncipmdifr-Vksp PT focus neck/upper body Right earache-cerumen removed [...] to 4 units daily -monitor blood sugars IZJ-umaaucswrk-qy changes Chronic pain -well controlled with fentanyl [...]
--- OUTSIDE RECORDS SUMMARY | 2018-08-09 12:06 | XMS REPORT | CCD ---
Author Author [facility] Organization [facility] Address [address] [place] [address] Phone Care Team Providers Care Logistics Service Representative Name Role Phone PP Unavailable CCM Unavailable Summary Purpose Interface Exchange Insurance Providers Payer name Policy type / Coverage type Covered republican ID Effective Begin Date Effective End Date WPS Medicare Part B Medicare Part B [id number] Unknown Unknown [facility] Life Insurance Medicare Part B [id number] Unknown Unknown Family history Father Diagnosis Age At Onset Arthritis Unknown Hypertension Unknown Mother Diagnosis Age At Onset Diabetes mellitus Type 2 Unknown Depression Unknown Arthritis Unknown Stroke Unknown Hypertension Unknown Sister Diagnosis Age At Onset Colon cancer Unknown Social History Social History Element Codes Description Effective Dates Marital status Unknown Maurice 01/07/2018 Living arrangements Unknown [facility] 04/15/2017 Number of children Unknown 3 06/17/2015 Employment Unknown Retired 06/17/[address]: 6995582 Quit over 10 years ago 15+ 06/17/[address]: 593663560 Never drinks alcohol 06/17/2015 Allergies, Adverse Reactions, [...] hydrocodone 10 mg-acetaminophen 325 mg tablet RxNorm: 045032 2 Tablet(s) PO scheduled TID 03/23/2018 04/21/2018 Active Not to exceed 3gm/24hr acetaminophen cefdinir 300 mg capsule RxNorm: 460437 1 Capsule(s) PO BID 03/18/2018 03/24/2018 Active Zithromax Z-Eliu 250 mg tablet RxNorm: 116906 Tablet(s) PO 03/18/2018 No Stop Date Active albuterol sulfate concentrate 5 mg/mL(0.5 %) solution for nebulization RxNorm: 653812 1 Vial Milliliter(s) INH TID PRN as needed congestion 03/18/2018 No Stop Date Active Voltaren 1 % topical gel RxNorm: 044682 4 Gram(s) TOP QID 03/18/2018 No Stop Date Active hydrochlorothiazide 25 mg tablet RxNorm: 596721 GIVE 1 TABLET VIA PEG TUBE ONCE DAILY 03/11/2018 09/06/2018 Active Generic For:HYDRODIURIL 25 MG TABLET 03/11/2018 9:15:32 AM fentanyl 100 mcg/hr transdermal patch RxNorm: 282922 1 Patch TD Q72H 03/02/2018 03/31/2018 Active Duragesic 75 mcg/hr transdermal patch RxNorm: 744648 1 Patch TD Q72H 03/02/2018 03/31/2018 Active hydrocodone 10 mg-acetaminophen 325 mg tablet RxNorm: 453544 2 Tablet(s) PO scheduled TID 02/18/2018 03/22/2018 Inactive Not to exceed 3gm/24hr acetaminophen hyoscyamine 0.125 mg disintegrating tablet RxNorm: 9368839 Tablet(s) 1-2 Tablet(s) PO Q8 as needed 02/08/2018 No Stop Date Active fentanyl 100 mcg/hr transdermal patch RxNorm: 632549 1 Patch TD Q72H 02/04/2018 03/01/2018 Inactive hydrocodone 10 mg-acetaminophen 325 mg tablet RxNorm: 811500 2 Tablet(s) PO scheduled TID 02/04/2018 02/17/2018 Inactive Not to exceed 3gm/24hr acetaminophen Duragesic 75 mcg/hr transdermal patch RxNorm: 760573 1 Patch TD Q72H 02/04/2018 03/01/2018 Inactive Levemir FlexTouch U-100 Insulin 100 unit/mL (3 mL) subcutaneous pen RxNorm: 477597 4 Unit(s) SQ QHS 01/07/2018 No Stop Date Active Duragesic 75 mcg/hr transdermal patch RxNorm: 487779 1 Patch TD Q72H 01/07/2018 02/03/2018 Inactive fentanyl 100 mcg/hr transdermal patch RxNorm: 306157 1 Patch TD Q72H 01/07/2018 02/03/2018 Inactive hydrocodone 10 mg-acetaminophen 325 mg tablet RxNorm: 509571 2 Tablet(s) PO scheduled TID 01/05/2018 02/03/2018 Inactive Not to exceed 3gm/24hr acetaminophen hydrocodone 10 mg-acetaminophen 325 mg tablet RxNorm: 252924 2 Tablet(s) PO scheduled TID and 1 tab q 4 as needed 01/04/2018 01/04/2018 Inactive Not to exceed 3gm/24hr acetaminophen cyanocobalamin (vit B-12) 1,000 mcg tablet RxNorm: 434717 1 Tablet(s) PO daily 12/28/2017 11/22/2018 Active baclofen 10 mg tablet RxNorm: 716766 Tablet(s) TAKE 1 TABLET THREE TIMES DAILY VIA STOMACH TUBE 12/27/2017 05/25/2018 Active 10/07/2017 5:36:15 PM 10/07/2017 5:36:13 PM N O T I C E Last quantity doesn't match original quantity Duragesic 75 mcg/hr transdermal patch RxNorm: 193723 1 Patch TD Q72H 12/22/2017 01/06/2018 Inactive fentanyl 100 mcg/hr transdermal patch RxNorm: 425031 1 Patch TD Q72H 12/22/2017 01/06/2018 Inactive hydrocodone 10 mg-acetaminophen 325 mg tablet RxNorm: 352029 2 Tablet(s) PO scheduled TID and 1 tab q 4 as needed 12/20/2017 01/03/2018 Inactive Not to exceed 3gm/24hr acetaminophen hyoscyamine 0.125 mg disintegrating tablet RxNorm: 7948608 1-2 Tablet(s) PO Q8 as needed 12/14/2017 02/07/2018 Inactive Duragesic 75 mcg/hr transdermal patch RxNorm: 053723 1 Patch TD Q72H 12/06/2017 12/21/2017 Inactive fentanyl 100 mcg/hr transdermal patch RxNorm: 132772 1 Patch TD Q72H 12/06/2017 12/21/2017 Inactive hydrocodone 10 mg-acetaminophen 325 mg tablet RxNorm: 050645 2 Tablet(s) PO scheduled TID and 1 tab q 4 as needed 11/29/2017 12/19/2017 Inactive Not to exceed 3gm/24hr acetaminophen Duragesic 75 mcg/hr transdermal patch RxNorm: 403056 1 Patch TD Q72H 11/11/2017 12/05/2017 Inactive hydrocodone 10 mg-acetaminophen 325 mg tablet RxNorm: 753967 2 Tablet(s) PO scheduled TID and 1 tab q 4 as needed 11/09/2017 11/28/2017 Inactive Not to exceed 3gm/24hr acetaminophen Levemir FlexTouch U-100 Insulin 100 unit/mL (3 mL) subcutaneous pen RxNorm: 537197 8 Unit(s) SQ QHS 11/09/2017 01/06/2018 Inactive fentanyl 100 mcg/hr transdermal patch RxNorm: 988121 1 Patch TD Q72H 2017 12/05/2017 Inactive hyoscyamine 0.125 mg disintegrating tablet RxNorm: 7328894 1-2 Tablet(s) PO Q8 as needed 11/03/2017 12/13/2017 Inactive carvedilol 3.125 mg tablet RxNorm: 601056 GIVE 1 TABLET VIA PEG TUBE 2 TIMES A DAY 10/22/2017 01/19/2018 Inactive Generic For:COREG 3.125MG 10/22/2017 9:23:30 AM hydrocodone 10 mg-acetaminophen 325 mg tablet RxNorm: 758338 2 Tablet(s) PO scheduled TID and 1 tab q 4 as needed 10/22/2017 2017 Inactive Not to exceed 3gm/24hr acetaminophen fentanyl 100 mcg/hr transdermal patch RxNorm: 946253 1 Patch TD Q72H 10/20/2017 11/07/2017 Inactive Duragesic 75 mcg/hr transdermal patch RxNorm: 488962 1 Patch TD Q72H 10/20/2017 11/10/2017 Inactive lorazepam 0.5 mg tablet RxNorm: 669390 1 Tablet(s) PO BID and 1 tab q 6 hours prn 10/18/2017 No Stop Date Active baclofen 10 mg tablet RxNorm: 057005 TAKE 1 TABLET THREE TIMES DAILY VIA STOMACH TUBE 10/07/2017 12/26/2017 Inactive 10/07/2017 5:36:15 PM 10/07/2017 5:36:13 PM N O T I C E Last quantity doesn't match original quantity cranberry extract 500 mg tablet RxNorm: 0521779 1 Tablet(s) PO QAM 10/04/2017 01/31/2018 Inactive Cipro 500 mg tablet RxNorm: 164849 1 Tablet(s) PO BID 10/04/2017 10/03/2017 Inactive dc keflex hydrocodone 10 mg-acetaminophen 325 mg tablet RxNorm: 483620 2 Tablet(s) PO scheduled TID as needed 10/04/2017 10/21/2017 Inactive Not to exceed 3gm/24hr acetaminophen cranberry extract 500 mg tablet RxNorm: 4643443 1 Tablet(s) PO QAM 10/04/2017 10/03/2017 Inactive Cipro 500 mg tablet RxNorm: 019516 1 Tablet(s) PO BID 10/04/2017 10/10/2017 Inactive dc keflex Duragesic 75 mcg/hr transdermal patch RxNorm: 745526 1 Patch TD Q72H 09/20/2017 10/19/2017 Inactive fentanyl 100 mcg/hr transdermal patch RxNorm: 130157 1 Patch TD Q72H 09/20/2017 10/19/2017 Inactive hyoscyamine 0.125 mg disintegrating tablet RxNorm: 5929878 1 Tablet(s) PO TID and 1 Tablet Q4H prn increased secretions 09/15/2017 11/02/2017 Inactive hydrocodone 10 mg-acetaminophen 325 mg tablet RxNorm: 969054 2 Tablet(s) PO scheduled TID and 1-2 Tabs Q4H PRN pain 09/15/2017 10/03/2017 Inactive Not to exceed 3gm/24hr acetaminophen lorazepam 0.5 mg tablet RxNorm: 373380 1 Tablet(s) PO BID 09/15/2017 10/17/2017 Inactive Lexapro 10 mg tablet RxNorm: 219439 1 Tablet(s) PO daily 09/10/2017 09/14/2017 Inactive lisinopril 10 mg tablet RxNorm: 429767 1 Tablet(s) PO daily 09/09/2017 06/05/2018 Active Levemir FlexTouch U-100 Insulin 100 unit/mL (3 mL) subcutaneous pen RxNorm: 898076 10 Unit(s) daily 09/09/2017 09/15/2017 Inactive Duragesic 75 mcg/hr transdermal patch RxNorm: 262175 1 Patch TD Q72H 09/09/2017 09/19/2017 Inactive nystatin 100,000 unit/gram topical cream RxNorm: 256264 1 Gram(s) TOP TID until healed to gaulding 09/06/2017 01/03/2018 Inactive nystatin 100,000 unit/gram topical cream RxNorm: 222457 1 Gram(s) TOP TID until healed to gaulding 09/06/2017 09/05/2017 Inactive hydrocodone 10 mg-acetaminophen 325 mg tablet RxNorm: 729905 2 Tablet(s) PO scheduled TID as needed 08/31/2017 09/14/2017 Inactive Not to exceed 3gm/24hr acetaminophen fentanyl 100 mcg/hr transdermal patch RxNorm: 399750 1 Patch TD Q72H 08/24/2017 09/19/2017 Inactive fentanyl 50 mcg/hr transdermal patch RxNorm: 765902 1 Patch TD Q72H 08/24/2017 09/08/2017 Inactive fentanyl 25 mcg/hr transdermal patch RxNorm: 490239 1 Patch TD Q72H 08/24/2017 08/24/2017 Inactive hyoscyamine 0.125 mg disintegrating tablet RxNorm: 0951373 Tablet(s) 1-2 Tablet(s) PO Q8 as needed 08/23/2017 09/14/2017 Inactive hydrocodone 10 mg-acetaminophen 325 mg tablet RxNorm: 819458 1 Tablet(s) PO scheduled TID et Q6 hours as needed 08/18/2017 08/30/2017 Inactive Not to exceed 3gm/24hr acetaminophen hydrochlorothiazide 25 mg tablet RxNorm: 290082 GIVE 1 TABLET VIA PEG TUBE ONCE DAILY 08/17/2017 02/12/2018 Inactive Generic For:HYDRODIURIL 25 MG TABLET 08/17/2017 9:01:54 AM08/11/2017 10:12:00 AM lorazepam 0.5 mg tablet RxNorm: 212102 1/2 Tablet(s) PO BID 08/03/2017 09/14/2017 Inactive fentanyl 100 mcg/hr transdermal patch RxNorm: 005544 1 Patch TD Q72H 07/26/2017 08/23/2017 Inactive fentanyl 25 mcg/hr transdermal patch RxNorm: 998900 1 Patch TD Q72H 07/26/2017 08/23/2017 Inactive hydrocodone 10 mg-acetaminophen 325 mg tablet RxNorm: 505906 1 Tablet(s) PO scheduled TID et Q6 hours as needed 07/16/2017 08/14/2017 Inactive Not to exceed 3gm/24hr acetaminophen hyoscyamine 0.125 mg disintegrating tablet RxNorm: 6110618 Tablet(s) 1-2 Tablet(s) PO Q8 as needed 07/13/2017 08/01/2017 Inactive baclofen 10 mg tablet RxNorm: 318295 TAKE 1 TABLET THREE TIMES DAILY VIA STOMACH TUBE 07/12/2017 10/06/2017 Inactive 07/12/2017 9:04:08 AM N O T I C E Last quantity doesn't match original quantity lorazepam 0.5 mg tablet RxNorm: 759895 1/2 Tablet(s) PO BID 07/02/2017 08/02/2017 Inactive fentanyl 100 mcg/hr transdermal patch RxNorm: 266251 1 Patch TD Q72H 06/28/2017 07/25/2017 Inactive fentanyl 25 mcg/hr transdermal patch RxNorm: 974401 1 Patch TD Q72H 06/28/2017 07/25/2017 Inactive hyoscyamine 0.125 mg disintegrating tablet RxNorm: 6258090 Tablet(s) 1-2 Tablet(s) PO Q8 as needed 06/03/2017 06/22/2017 Inactive fentanyl 25 mcg/hr transdermal patch RxNorm: 400216 1 Patch TD Q72H 05/26/2017 06/24/2017 Inactive Levemir FlexTouch U-100 Insulin 100 unit/mL (3 mL) subcutaneous pen RxNorm: 278683 20 Unit(s) SQ BID 05/26/2017 09/08/2017 Inactive fentanyl 100 mcg/hr transdermal patch RxNorm: 438312 1 Patch TD Q72H 05/26/2017 06/24/2017 Inactive hydrocodone 10 mg-acetaminophen 325 mg tablet RxNorm: 842269 1 Tablet(s) PO scheduled BID et Q6 hours as needed 05/12/2017 05/11/2017 Inactive hydrocodone 10 mg-acetaminophen 325 mg tablet RxNorm: 783929 1 Tablet(s) PO scheduled TID et Q6 hours as needed 05/12/2017 06/10/2017 Inactive Not to exceed 3gm/24hr acetaminophen docusate sodium 100 mg tablet RxNorm: 5312631 1 Tablet(s) PO BID as needed if no bowel movement 05/10/2017 05/09/2017 Inactive lisinopril 20 mg tablet RxNorm: 711943 1 Tablet(s) PO daily 05/10/2017 09/08/2017 Inactive docusate sodium 100 mg tablet RxNorm: 3665015 1 Tablet(s) PO BID as needed if no bowel movement 05/10/2017 09/14/2017 Inactive fentanyl 25 mcg/hr transdermal patch RxNorm: 831131 1 Patch TD Q72H 05/03/2017 05/25/2017 Inactive lorazepam 0.5 mg tablet RxNorm: 612916 1/2 Tablet(s) PO BID 05/03/2017 07/01/2017 Inactive fentanyl 100 mcg/hr transdermal patch RxNorm: 392702 1 Patch TD Q72H 04/27/2017 05/25/2017 Inactive carvedilol 3.125 mg tablet RxNorm: 044159 Tablet(s) GIVE 1 TABLET VIA PEG TUBE DAILY 04/15/2017 10/21/2017 Inactive Levemir FlexTouch 100 unit/mL (3 mL) subcutaneous insulin pen RxNorm: 313977 10 Unit(s) SQ BID 04/15/2017 2017 Inactive hyoscyamine 0.125 mg disintegrating tablet RxNorm: 9582338 1-2 Tablet(s) PO Q8 as needed 04/14/2017 05/03/2017 Inactive hydrocodone 10 mg-acetaminophen 325 mg tablet RxNorm: 219251 1 Tablet(s) PO scheduled BID et Q6 hours as needed 04/13/2017 05/02/2017 Inactive baclofen 10 mg tablet RxNorm: 536123 TAKE 1 TABLET THREE TIMES DAILY VIA STOMACH TUBE 04/08/2017 05/22/2017 Inactive 04/08/2017 9:32:07 AM fentanyl 25 mcg/hr transdermal patch RxNorm: 944767 1 Patch TD Q72H 04/05/2017 05/02/2017 Inactive lidocaine 10 mg/mL (1 %) injection solution RxNorm: 4197043 1 Milliliter(s) Inj daily Mix with rocephin 03/31/2017 03/30/2017 Inactive Pt resides at [facility] lidocaine 10 mg/mL (1 %) injection solution RxNorm: 3487381 1 Milliliter(s) Inj daily Mix with rocephin 03/31/2017 04/06/2017 Inactive Pt resides at [facility] fentanyl 100 mcg/hr transdermal patch RxNorm: 587276 1 Patch TD Q72H 03/29/2017 04/26/2017 Inactive nystatin 100,000 unit/gram topical powder RxNorm: 127922 APPLY UNDER BREASTS TWICE DAILY FOR YEAST SKIN INFECTION AND APPLY TO UNDERARM AND ABDOMINAL FOLDS AND PERIAREA TWICE DAILY 03/29/2017 03/28/2017 Inactive 03/27/2017 9:12:50 AM nystatin 100,000 unit/gram topical powder RxNorm: 886185 APPLY UNDER BREASTS TWICE DAILY FOR YEAST SKIN INFECTION AND APPLY TO UNDERARM AND ABDOMINAL FOLDS AND PERIAREA TWICE DAILY 03/29/2017 09/14/2017 Inactive 03/29/2017 9:42:55 AM03/27/2017 9:12:50 AM hyoscyamine 0.125 mg disintegrating tablet RxNorm: 9258093 1-2 Tablet(s) PO Q8 as needed 03/08/2017 03/27/2017 Inactive fentanyl 25 mcg/hr transdermal patch RxNorm: 279303 1 Patch TD Q72H 03/02/2017 03/31/2017 Inactive hydrocodone 10 mg-acetaminophen 325 mg tablet RxNorm: 513730 1 Tablet(s) PO scheduled BID et Q6 hours as needed 02/17/2017 03/18/2017 Inactive fentanyl 100 mcg/hr transdermal patch RxNorm: 804906 1 Patch TD Q72H 02/17/2017 03/18/2017 Inactive Lexapro 10 mg tablet RxNorm: 814476 1 Tablet(s) PO daily 02/05/2017 04/14/2017 Inactive Lexapro 10 mg tablet RxNorm: 415498 1 Tablet(s) PO daily 02/05/2017 02/04/2017 Inactive fentanyl 25 mcg/hr transdermal patch RxNorm: 066279 1 Patch TD Q72H 02/04/2017 03/01/2017 Inactive cyanocobalamin (vit B-12) 1,000 mcg tablet RxNorm: 837287 1 Tablet(s) PO daily 01/18/2017 12/13/2017 Inactive hyoscyamine 0.125 mg disintegrating tablet RxNorm: 7864731 Tablet(s) 1-2 Tablet(s) PO Q8 as needed 01/18/2017 02/06/2017 Inactive baclofen 10 mg tablet RxNorm: 664013 TAKE 1 TABLET THREE TIMES DAILY VIA STOMACH TUBE 01/04/2017 02/17/2017 Inactive 01/04/2017 9:25:18 AM fentanyl 100 mcg/hr transdermal patch RxNorm: 023996 1 Patch TD Q72H 12/25/2016 01/23/2017 Inactive hydrochlorothiazide 25 mg tablet RxNorm: 462837 Tablet(s) GIVE 1 TABLET VIA PEG TUBE ONCE A DAY 12/14/2016 07/11/2017 Inactive fentanyl 100 mcg/hr transdermal patch RxNorm: 811522 1 Patch TD Q72H 11/25/2016 12/24/2016 Inactive hyoscyamine 0.125 mg disintegrating tablet RxNorm: 6561825 Tablet(s) 1-2 Tablet(s) PO Q8 as needed 11/25/2016 12/14/2016 Inactive nystatin 100,000 unit/gram topical powder RxNorm: 938460 APPLY UNDER BREASTS TWICE DAILY FOR YEAST SKIN INFECTION AND APPLY TO UNDERARM AND ABDOMINAL FOLDS AND PERIAREA TWICE DAILY 11/24/2016 01/22/2017 Inactive 11/24/2016 9:34:02 AM hydrocodone 10 mg-acetaminophen 325 mg tablet RxNorm: 512144 1 Tablet(s) PO scheduled BID et Q6 hours as needed 11/02/2016 12/01/2016 Inactive cyanocobalamin (vit B-12) 1,000 mcg tablet RxNorm: 503972 1 Tablet(s) PO daily 11/02/2016 01/17/2017 Inactive hyoscyamine 0.125 mg disintegrating tablet RxNorm: 3555158 1-2 Tablet(s) PO Q8 as needed 10/19/2016 11/24/2016 Inactive fentanyl 100 mcg/hr transdermal patch RxNorm: 643954 1 Patch TD Q72H 10/13/2016 11/11/2016 Inactive hydrocodone 10 mg-acetaminophen 325 mg tablet RxNorm: 485729 1 Tablet(s) PO scheduled BID et Q6 hours as needed 10/05/2016 11/01/2016 Inactive baclofen 10 mg tablet RxNorm: 879813 TAKE 1 TABLET THREE TIMES DAILY VIA STOMACH TUBE 10/01/2016 11/14/2016 Inactive 10/01/2016 9:24:37 AM carvedilol 3.125 mg tablet RxNorm: 129827 GIVE 1 TABLET VIA PEG TUBE 2 TIMES A DAY 09/30/2016 12/28/2016 Inactive Generic For:COREG 3.125MG 09/30/2016 1:12:28 PM09/25/2016 9:06:11 AM Probiotic Blend 2 million cell-50 mg capsule RxNorm: 1 Capsule(s) PO BID 09/17/2016 09/23/2016 Inactive Keflex 500 mg capsule RxNorm: 122650 1 Capsule(s) PO TID 09/17/2016 09/23/2016 Inactive hyoscyamine 0.125 mg/5 mL oral elixir RxNorm: 7461080 5 Milliliter(s) PO TID 09/08/2016 09/17/2016 Inactive hyoscyamine 0.125 mg/5 mL oral elixir RxNorm: 2160260 5 Milliliter(s) PO TID 09/08/2016 09/07/2016 Inactive hyoscyamine 0.125 mg disintegrating tablet RxNorm: 8496568 1-2 Tablet(s) PO Q8 as needed 09/07/2016 10/18/2016 Inactive fentanyl 100 mcg/hr transdermal patch RxNorm: 327704 1 Patch TD Q72H 09/01/2016 09/30/2016 Inactive ranitidine 150 mg tablet RxNorm: 689137 1 Tablet(s) PO BID 08/25/2016 No Stop Date Active hydrocodone 10 mg-acetaminophen 325 mg tablet RxNorm: 325979 1 Tablet(s) PO scheduled BID et Q6 hours as needed 08/24/2016 09/22/2016 Inactive cyanocobalamin (vit B-12) 1,000 mcg tablet RxNorm: 743332 1 Tablet(s) PO daily 08/12/2016 11/01/2016 Inactive cyanocobalamin (vit B-12) 1,000 mcg tablet RxNorm: 748315 1 Tablet(s) PO daily 08/12/2016 08/11/2016 Inactive hydrocodone 10 mg-acetaminophen 325 mg tablet RxNorm: 118072 1-2 Tablet(s) PO Q6 as needed 08/03/2016 08/17/2016 Inactive fentanyl 100 mcg/hr transdermal patch RxNorm: 545425 1 Patch TD Q72H 08/03/2016 08/31/2016 Inactive nystatin 100,000 unit/gram topical powder RxNorm: 351724 APPLY UNDER BREASTS TWICE DAILY FOR YEAST SKIN INFECTION AND APPLY TO UNDERARM AND ABDOMINAL FOLDS AND PERIAREA TWICE DAILY 07/17/2016 09/14/2016 Inactive 07/17/2016 3:56:54 PM fentanyl 100 mcg/hr transdermal patch RxNorm: 235455 1 Patch TD Q72H 07/15/2016 08/02/2016 Inactive lisinopril 20 mg tablet RxNorm: 660420 1 Tablet(s) PO daily 07/02/2016 03/28/2017 Inactive hydrocodone 10 mg-acetaminophen 325 mg tablet RxNorm: 936675 1-2 Tablet(s) PO Q6 as needed 07/01/2016 07/15/2016 Inactive Xarelto 20 mg tablet RxNorm: 9147717 Tablet(s) TAKE 1 TABLET VIA PEG TUBE AT BEDTIME 06/19/2016 04/14/2017 Inactive fentanyl 100 mcg/hr transdermal patch RxNorm: 486687 1 Patch TD Q72H 06/17/2016 07/14/2016 Inactive nystatin 100,000 unit/gram topical powder RxNorm: 808267 APPLY TO UNDER BREASTS TWICE DAILY FOR YEAST SKIN INFECTION AND APPLY TO UNDERARM AND ABDOMINAL FOLDS AND PERIAREA TWICE DAILY 06/15/2016 07/16/2016 Inactive Generic For:MYCOSTATIN 100,000 UNITS/GM PW 06/15/2016 12:28:26 PM fentanyl 100 mcg/hr transdermal patch RxNorm: 389652 1 Patch TD Q72H 06/05/2016 06/16/2016 Inactive hydrocodone 10 mg-acetaminophen 325 mg tablet RxNorm: 261780 1-2 Tablet(s) PO Q6 as needed 06/02/2016 06/16/2016 Inactive Probiotic Blend 2 million cell-50 mg capsule RxNorm: 1 Capsule(s) PO BID 05/13/2016 05/19/2016 Inactive nitrofurantoin 100 mg capsule RxNorm: 203174 1 Capsule(s) PO BID 05/13/2016 05/19/2016 Inactive nitrofurantoin 100 mg capsule RxNorm: 847772 1 Capsule(s) PO BID 05/13/2016 05/12/2016 Inactive fentanyl 75 mcg/hr transdermal patch RxNorm: 335465 1 Patch TD Q72H 05/13/2016 06/04/2016 Inactive Keflex 500 mg capsule RxNorm: 173992 1 Capsule(s) PO TID 05/07/2016 05/13/2016 Inactive Patient at [facility] Keflex 500 mg capsule RxNorm: 574754 1 Capsule(s) PO TID 05/07/2016 05/06/2016 Inactive hydrocodone 10 mg-acetaminophen 325 mg tablet RxNorm: 410402 1-2 Tablet(s) PO Q6 as needed 05/04/2016 06/01/2016 Inactive hydrochlorothiazide 25 mg tablet RxNorm: 133106 Tablet(s) GIVE 1 TABLET VIA PEG TUBE ONCE A DAY 04/29/2016 11/24/2016 Inactive hydrochlorothiazide 25 mg tablet RxNorm: 455854 GIVE 1 TABLET VIA PEG TUBE ONCE A DAY 04/22/2016 04/28/2016 Inactive Generic For:HYDRODIURIL 25 MG TABLET refill request fentanyl 75 mcg/hr transdermal patch RxNorm: 487997 1 Patch TD Q72H 04/17/2016 05/12/2016 Inactive Xarelto 20 mg tablet RxNorm: 8352374 TAKE 1 TABLET VIA PEG TUBE AT BEDTIME 04/16/2016 06/14/2016 Inactive 04/16/2016 9:08:52 AM citalopram 40 mg tablet RxNorm: 069422 1 Tablet(s) PO daily 04/02/2016 02/25/2017 Inactive citalopram 40 mg tablet RxNorm: 481695 1 Tablet(s) PO daily 03/27/2016 04/01/2016 Inactive hydrocodone 10 mg-acetaminophen 325 mg tablet RxNorm: 666006 1-2 Tablet(s) PO Q6 as needed 03/27/2016 04/25/2016 Inactive fentanyl 75 mcg/hr transdermal patch RxNorm: 684557 1 Patch TD Q72H 03/18/2016 04/16/2016 Inactive hydrocodone 10 mg-acetaminophen 325 mg tablet RxNorm: 106506 1-2 Tablet(s) PO Q6 as needed 03/11/2016 03/26/2016 Inactive citalopram 40 mg tablet RxNorm: 944021 1 Tablet(s) PO daily 03/04/2016 03/26/2016 Inactive Levemir FlexTouch U-100 Insulin 100 unit/mL (3 mL) subcutaneous pen RxNorm: 359785 20 Unit(s) SQ BID 03/02/2016 09/27/2016 Inactive lisinopril 20 mg tablet RxNorm: 824812 1 Tablet(s) PO daily 02/25/2016 07/01/2016 Inactive Ativan 0.5 mg tablet RxNorm: 285457 1 Tablet(s) PO Q4H as needed 02/18/2016 04/14/2017 Inactive Xarelto 20 mg tablet RxNorm: 8318404 TAKE 1 TABLET VIA PEG TUBE AT BEDTIME 02/12/2016 04/11/2016 Inactive 02/12/2016 9:08:22 AM hydrocodone 10 mg-acetaminophen 325 mg tablet RxNorm: 603477 1-2 Tablet(s) PO Q6 as needed 02/12/2016 03/10/2016 Inactive fentanyl 75 mcg/hr transdermal patch RxNorm: 078010 1 Patch TD Q72H 02/11/2016 03/11/2016 Inactive citalopram 20 mg tablet RxNorm: 807193 1 Tablet(s) PO daily 01/28/2016 03/03/2016 Inactive fentanyl 75 mcg/hr transdermal patch RxNorm: 381076 1 TD Q72H 01/17/2016 02/10/2016 Inactive hydrocodone 10 mg-acetaminophen 325 mg tablet RxNorm: 858688 1-2 Tablet(s) PO Q6 as needed 01/07/2016 02/05/2016 Inactive fentanyl 50 mcg/hr transdermal patch RxNorm: 234814 1 TD Q72H 01/01/2016 01/16/2016 Inactive fentanyl 50 mcg/hr transdermal patch RxNorm: 630688 1 TD q 3 days 12/26/2015 12/31/2015 Inactive Xarelto 20 mg tablet RxNorm: 7770471 TAKE 1 TABLET VIA PEG TUBE AT BEDTIME 12/17/2015 02/11/2016 Inactive 12/16/2015 3:27:57 PM12/14/2015 9:45:17 AM hydrocodone 10 mg-acetaminophen 325 mg tablet RxNorm: 892273 1-2 Tablet(s) PO Q6 as needed 12/06/2015 01/04/2016 Inactive fentanyl 50 mcg/hr transdermal patch RxNorm: 758622 1 TD q 3 days 12/06/2015 12/25/2015 Inactive fentanyl 25 mcg/hr transdermal patch RxNorm: 511248 1 TD q 3 days 11/18/2015 12/05/2015 Inactive Zithromax Z-Eliu 250 mg tablet RxNorm: 951251 1 Tablet(s) PO UD 10/09/2015 02/26/2016 Inactive z pack as directed- please write out instructions- pt at [facility] nystatin 100,000 unit/gram topical powder RxNorm: 977450 APPLY TO UNDER BREASTS TWICE DAILY FOR YEAST SKIN INFECTION AND APPLY TO UNDERARM AND ABDOMINAL FOLDS AND PERIAREA TWICE DAILY 10/07/2015 12/05/2015 Inactive Generic For:MYCOSTATIN 100,000 UNITS/GM PW 10/05/2015 12:07:35 PM fentanyl 25 mcg/hr transdermal patch RxNorm: 113846 1 TD q 3 days 10/03/2015 11/01/2015 Inactive fentanyl 25 mcg/hr transdermal patch RxNorm: 626833 1 TD q 3 days 09/27/2015 10/02/2015 Inactive fentanyl 25 mcg/hr transdermal patch RxNorm: 820815 1 TD q 3 days 09/17/2015 09/26/2015 Inactive fentanyl 25 mcg/hr transdermal patch RxNorm: 824260 1 TD q 3 days 08/30/2015 09/16/2015 Inactive hydrocodone 5 mg-acetaminophen 325 mg tablet RxNorm: 351684 1 Tablet(s) PO Q6 as needed 08/30/2015 09/28/2015 Inactive Diflucan 100 mg tablet RxNorm: 523662 1 Tablet(s) Miscellaneous per peg daily 07/29/2015 08/04/2015 Inactive fentanyl 25 mcg/hr transdermal patch RxNorm: 550109 1 TD q 3 days 07/18/2015 08/29/2015 Inactive hydrocodone 5 mg-acetaminophen 325 mg tablet RxNorm: 774550 1 Tablet(s) PO Q6 as needed 07/18/2015 08/29/2015 Inactive Diflucan 100 mg tablet RxNorm: 456725 1 Tablet(s) Miscellaneous per peg daily 06/17/2015 06/23/2015 Inactive Senna-S 8.6 mg-50 mg tablet RxNorm: 342843 1 Tablet(s) PO daily as needed constipation No Start Date Active Dulcolax (bisacodyl) 10 mg rectal suppository RxNorm: 864507 1 Suppository RTL daily as needed constipation No Start Date Active polyethylene glycol 3350 17 gram/dose oral powder RxNorm: 176607 17 Gram(s) PO daily as needed constipation No Start Date Active baclofen 10 mg tablet RxNorm: 197832 1 Tablet(s) PO TID No Start Date 09/30/2016 Inactive Ativan 0.5 mg tablet RxNorm: 376521 1 Tablet(s) PO Q4H as needed No Start Date 02/17/2016 Inactive ranitidine 150 mg tablet RxNorm: 477406 1 Tablet(s) PO daily No Start Date 08/24/2016 Inactive carvedilol 3.125 mg tablet RxNorm: 637402 1 Tablet(s) PO daily No Start Date 09/29/2016 Inactive citalopram 40 mg tablet RxNorm: 341345 1 Tablet(s) PO daily No Start Date 01/27/2016 Inactive Probiotic Blend oral RxNorm: oral No Start Date 05/12/2016 Inactive hydrochlorothiazide 25 mg tablet RxNorm: 496630 1 Tablet(s) PO daily No Start Date 04/21/2016 Inactive albuterol sulfate concentrate 5 mg/mL(0.5 %) solution for nebulization RxNorm: 273214 1 Vial INH daily as needed congestion No Start Date 03/17/2018 Inactive Levemir FlexTouch 100 unit/mL (3 mL) subcutaneous insulin pen RxNorm: 263290 10 Unit(s) SQ BID No Start Date 03/01/2016 Inactive Zithromax Z-Eliu 250 mg tablet RxNorm: 818603 1 Tablet(s) PO UD No Start Date 10/08/2015 Inactive z pack as directed- please write out instructions- pt at [facility] nystatin 100,000 unit/gram topical powder RxNorm: 224486 Gram(s) TOP BID as needed No Start Date 10/06/2015 Inactive pravastatin 40 mg tablet RxNorm: 533764 Tablet(s) PO daily No Start Date 04/14/2017 Inactive lorazepam 0.5 mg tablet RxNorm: 674057 1/2 Tablet(s) PO BID No Start Date 05/02/2017 Inactive Xarelto 20 mg tablet RxNorm: 5670291 1 Tablet(s) PO daily No Start Date 12/16/2015 Inactive fentanyl 25 mcg/hr transdermal patch RxNorm: 189955 1 TD q 3 days No Start Date 07/17/2015 Inactive lisinopril 20 mg tablet RxNorm: 489987 1 Tablet(s) PO daily No Start Date 02/24/2016 Inactive hydrocodone 5 mg-acetaminophen 325 mg tablet RxNorm: 030326 1 Tablet(s) PO Q6 as needed No Start Date 07/17/2015 Inactive citalopram 40 mg tablet RxNorm: 373341 1 Tablet(s) PO daily No Start Date 03/03/2016 Inactive hyoscyamine 0.125 mg disintegrating tablet RxNorm: 1169861 1-2 Tablet(s) PO Q8 as needed No Start Date 09/06/2016 Inactive Medication Administered No Medication Administered data Immunizations No Immunization data Assessments Condition Codes Effective Dates Cough ICD-10: R05 ICD-9: 786.2 03/18/2018 Pneumonia, unspecified organism ICD-10: J18.9 ICD-9: 486 03/18/2018 Pain in right knee ICD-10: M25.561 ICD-9: 719.46 03/18/2018 Type 2 diabetes mellitus without complications ICD-10: E11.9 ICD-9: 250.00 01/07/2018 Chronic pain syndrome ICD-10: G89.4 ICD-9: 338.4 01/07/2018 Essential (primary) hypertension ICD-10: I10 ICD-9: 401.9 01/07/2018 Pain in left knee ICD-10: M25.562 ICD-9: 719.46 09/09/2017 Type 2 diabetes mellitus with hyperglycemia ICD-10: E11.65 ICD-9: 250.02 09/09/2017 Pain in left shoulder ICD-10: M25.512 ICD-9: 719.41 09/09/2017 Pain in right shoulder ICD-10: M25.511 ICD-9: 719.41 09/09/2017 Low back pain ICD-10: M54.5 ICD-9: 724.2 06/08/2017 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 ICD-9: 536.49 11/09/2016 Urinary tract infection, site not specified ICD-10: N39.0 ICD-9: 599.0 09/17/2016 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 ICD-9: 438.82 07/18/2015 Impacted cerumen, right ear ICD-10: H61.21 ICD-9: 389.8 07/18/2015 Cervicalgia ICD-10: M54.2 ICD-9: 723.1 07/18/2015 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 ICD-9: V44.1 06/17/2015 Candidal esophagitis ICD-10: B37.81 ICD-9: 112.84 06/17/2015 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 ICD-9: 438.81 06/17/2015 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 ICD-9: 438.84 06/17/2015 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 ICD-9: 438.13 06/17/2015 Reason For Visit Reason For Visit [...] 30.7 pg 02/14/2018 Cbc With Differential Ord2 Clayton% 7.4 % 02/14/2018 Cbc With Differential Ord2 [...] 2.14 K/ul 02/14/2018 Cbc With Differential Ord2 Clayton ABS# 0.5 K/ul 02/14/2018 Cbc With Differential Ord2 Eos ABS# 0.3 K/ul 02/14/2018 Cbc With Differential Ord2 Baso ABS# 0.0 K/ul 02/14/2018 Comp Metabolic Bpx389 NA 142 mEq/L 02/14/2018 Comp Metabolic Wri319 K 4.5 mEq/L 02/14/2018 Comp Metabolic Ktf596 CL 97 mEq/L 02/14/2018 Comp Metabolic Kzg178 CO2 41.0 mEq/L 02/14/2018 Comp Metabolic Kzs958 ANION GAP 9 02/14/2018 Comp Metabolic Qrq424 GLUCOSE 111 mg/dL 02/14/2018 Comp Metabolic Awj239 Creat 0.6 mg/dL 02/14/2018 Comp Metabolic Oro128 eGFR 108 ml/min/1.73m2 02/14/2018 Comp Metabolic Ecy101 BUN 32 mg/dL 02/14/2018 Comp Metabolic Ziw091 B/C Ratio 54.2 Ratio 02/14/2018 Comp Metabolic Cos197 CALCIUM 8.9 mg/dL 02/14/2018 Comp Metabolic Via996 ALK PHOS 81 U/L 02/14/2018 Comp Metabolic Sej260 AST(SGOT) 14 U/L 02/14/2018 Comp Metabolic Zxo375 ALT(SGPT) 11 U/L 02/14/2018 Comp Metabolic Sop750 BILI T 0.3 mg/dL 02/14/2018 Comp Metabolic Lpp263 ALBUMIN 3.4 g/dL 02/14/2018 Comp Metabolic Uvw131 TPRO 6.3 g/dL 02/14/2018 Comp Metabolic Olk318 GLOB 2.9 g/dL 02/14/2018 Comp Metabolic Xhg241 A/G Ratio 1.2 Ratio 02/14/2018 Comp Metabolic Ian170 Osmo 291 mOsmo 02/14/2018 %Hba1C Fed919 % HbA1c 80515- 6 5.5 % 02/14/2018 %Hba1C Tzs102 Gluc Ave 111 mg/dL 02/14/2018 Prealbumin 046109 PREALBUMIN 27 mg/dL 11/24/2017 %Hba1C Qyt742 % HbA1c 79483- 6 5.5 % 11/04/2017 %Hba1C Lxy895 Gluc Ave 111 mg/dL 11/04/2017 Culture Urine [id number] URINE CULTURE SEE NOTES 10/04/2017 Culture Urine [id number] Continued Results 10/04/2017 Urine Culture Ucult Complete [...] Ord28 U-Com Culture to follow 10/01/2017 B12 Geg313 B12 >1500.00 pg/ml 02/19/2017 Cbc With Differential [...] 31.5 pg 02/02/2017 Cbc With Differential Ord2 Clayton% 8.3 % 02/02/2017 Cbc With Differential Ord2 [...] 2.28 K/ul 02/02/2017 Cbc With Differential Ord2 Clayton ABS# 0.6 K/ul 02/02/2017 Cbc With Differential Ord2 Eos ABS# 0.4 K/ul 02/02/2017 Cbc With Differential Ord2 Baso ABS# 0.0 K/ul 02/02/2017 %Hba1C Bey076 % HbA1c 09131- 6 5.2 % 02/02/2017 %Hba1C Eba515 Gluc Ave 103 mg/dL 02/02/2017 Comp Metabolic Xgy723 NA 138 mEq/L 02/02/2017 Comp Metabolic Aas174 K 4.5 mEq/L 02/02/2017 Comp Metabolic Gqr735 CL 98 mEq/L 02/02/2017 Comp Metabolic Gzi094 CO2 37.0 mEq/L 02/02/2017 Comp Metabolic Mje979 ANION GAP 8 02/02/2017 Comp Metabolic Ouy156 GLUCOSE 94 mg/dL 02/02/2017 Comp Metabolic Gxr550 Creat 0.7 mg/dL 02/02/2017 Comp Metabolic Urs342 eGFR 88 ml/min/1.73m2 02/02/2017 Comp Metabolic Xcg750 BUN 36 mg/dL 02/02/2017 Comp Metabolic Jco037 B/C Ratio 50.7 Ratio 02/02/2017 Comp Metabolic Hhp076 CALCIUM 9.0 mg/dL 02/02/2017 Comp Metabolic Non435 ALK PHOS 78 U/L 02/02/2017 Comp Metabolic Jvk514 AST(SGOT) 22 U/L 02/02/2017 Comp Metabolic Cqv964 ALT(SGPT) 28 U/L 02/02/2017 Comp Metabolic Tgr057 BILI T 0.3 mg/dL 02/02/2017 Comp Metabolic Kug893 ALBUMIN 3.3 g/dL 02/02/2017 Comp Metabolic Uba350 TPRO 5.9 g/dL 02/02/2017 Comp Metabolic Qwq052 GLOB 2.6 g/dL 02/02/2017 Comp Metabolic Bqn914 A/G Ratio 1.3 Ratio 02/02/2017 Comp Metabolic Fru338 Osmo 284 mOsmo 02/02/2017 %Hba1C Clo620 % HbA1c 22243- 6 5.0 % 10/29/2016 %Hba1C Bbf345 Gluc Ave 97 mg/dL 10/29/2016 Culture Urine [id number] URINE CULTURE SEE NOTES 09/21/2016 Culture Urine [id number] Continued Results 09/21/2016 Urine Culture Ucult Complete [...] 32.4 pg 07/30/2016 Cbc With Differential Ord2 Clayton% 7.2 % 07/30/2016 Cbc With Differential Ord2 [...] 2.69 K/ul 07/30/2016 Cbc With Differential Ord2 Clayton ABS# 0.5 K/ul 07/30/2016 Cbc With Differential Ord2 Eos ABS# 0.5 K/ul 07/30/2016 Cbc With Differential Ord2 Baso ABS# 0.0 K/ul 07/30/2016 Comp Metabolic Vox355 NA 141 mEq/L 07/30/2016 Comp Metabolic Dbz560 K 4.3 mEq/L 07/30/2016 Comp Metabolic Ulf088 CL 100 mEq/L 07/30/2016 Comp Metabolic Sua463 CO2 33.0 mEq/L 07/30/2016 Comp Metabolic Qsx683 ANION GAP 12 07/30/2016 Comp Metabolic Whd075 GLUCOSE 64 mg/dL 07/30/2016 Comp Metabolic Tpe091 Creat 0.5 mg/dL 07/30/2016 Comp Metabolic Efa868 eGFR 126 ml/min/1.73m2 07/30/2016 Comp Metabolic Bsu598 BUN 25 mg/dL 07/30/2016 Comp Metabolic Qis658 B/C Ratio 48.1 Ratio 07/30/2016 Comp Metabolic Ulw450 CALCIUM 8.9 mg/dL 07/30/2016 Comp Metabolic Azi156 ALK PHOS 90 U/L 07/30/2016 Comp Metabolic Qpl317 AST(SGOT) 22 U/L 07/30/2016 Comp Metabolic Bqp276 ALT(SGPT) 36 U/L 07/30/2016 Comp Metabolic Abo585 BILI T 0.3 mg/dL 07/30/2016 Comp Metabolic Cuv258 ALBUMIN 3.4 g/dL 07/30/2016 Comp Metabolic Wvf024 TPRO 6.0 g/dL 07/30/2016 Comp Metabolic Tbi329 GLOB 2.7 g/dL 07/30/2016 Comp Metabolic Sdl463 A/G Ratio 1.3 Ratio 07/30/2016 Comp Metabolic Jsv711 Osmo 284 mOsmo 07/30/2016 A1C Frequency Plw988 A1CF 28498-6 Last A1C performed at [facility] on: 05-12-2016 07/30/2016 %Hba1C Gnb531 % HbA1c 70920- 6 5.2 % 05/12/2016 %Hba1C Fem151 Gluc Ave 103 mg/dL 05/12/2016 Culture Urine [id number] URINE CULTURE SEE NOTES 05/11/2016 Urine Culture [...] U-Com Culture to follow 05/06/2016 Culture Urine [id number] URINE CULTURE SEE NOTES 03/17/2016 Culture Urine [id number] Continued Results 03/17/2016 Urine Culture Ucult Complete [...] 32.0 pg 02/11/2016 Cbc With Differential Ord2 Clayton% 9.1 % 02/11/2016 Cbc With Differential Ord2 [...] 2.59 K/ul 02/11/2016 Cbc With Differential Ord2 Clayton ABS# 0.6 K/ul 02/11/2016 Cbc With Differential Ord2 Eos ABS# 0.3 K/ul 02/11/2016 Cbc With Differential Ord2 Baso ABS# 0.0 K/ul 02/11/2016 Comp Metabolic Jyi447 NA 137 mEq/L 02/11/2016 Comp Metabolic Vlr636 K 4.4 mEq/L 02/11/2016 Comp Metabolic Gwh028 CL 100 mEq/L 02/11/2016 Comp Metabolic Nfp415 CO2 25.0 mEq/L 02/11/2016 Comp Metabolic Rri786 ANION GAP 16 02/11/2016 Comp Metabolic Umo834 GLUCOSE 99 mg/dL 02/11/2016 Comp Metabolic Uzm504 Creat 0.6 mg/dL 02/11/2016 Comp Metabolic Ehh830 eGFR 99 ml/min/1.73m2 02/11/2016 Comp Metabolic Vdk646 BUN 27 mg/dL 02/11/2016 Comp Metabolic Dew704 B/C Ratio 42.2 Ratio 02/11/2016 Comp Metabolic Xqw086 CALCIUM 9.2 mg/dL 02/11/2016 Comp Metabolic Vxy143 ALK PHOS 74 U/L 02/11/2016 Comp Metabolic Avg410 AST(SGOT) 24 U/L 02/11/2016 Comp Metabolic Pqm150 ALT(SGPT) 26 U/L 02/11/2016 Comp Metabolic Haq642 BILI T 0.5 mg/dL 02/11/2016 Comp Metabolic Jfc675 ALBUMIN 3.5 g/dL 02/11/2016 Comp Metabolic Iil670 TPRO 6.2 g/dL 02/11/2016 Comp Metabolic Tpl237 GLOB 2.7 g/dL 02/11/2016 Comp Metabolic Lsv051 A/G Ratio 1.3 Ratio 02/11/2016 Comp Metabolic Dwi780 Osmo 279 mOsmo 02/11/2016 Review of Systems [...] 1: 128/86 Code: 8480-6 BMI: 31.4 Code: 27206-2 Heart Rate 1: 72 bpm Height: 5'1" Weight: 166 lbs 06/17/2015 Blood Pressure 1: 110/78 Code: 8480-6 BMI: 33.3 Code: 95163-3 Heart Rate 1: 74 bpm Height: 5'1" [...] Present Encounters Encounter Performer Location Codes Date ([id number]) 97449 EST. PATIENT, LEVEL IV Diagnosis: Cough[ICD10: R05] Diagnosis: Pneumonia, unspecified organism[ICD10: J18.9] Diagnosis: Pain in right knee[ICD10: M25.561] Carlyn Everett MD, [facility] CPT- 4: 08058 03/18/2018 ([id number]) 96196 EST. PATIENT, LEVEL IV Diagnosis: Type 2 diabetes mellitus without complications[ICD10: E11.9] Diagnosis: Essential (primary) hypertension[ICD10: I10] Diagnosis: Chronic pain syndrome[ICD10: G89.4] Carlyn Everett MD, [facility] CPT-4: 17127 01/07/2018 ([id number]) 40341 EST. PATIENT, LEVEL IV Diagnosis: Essential (primary) hypertension[ICD10: I10] Diagnosis: Type 2 diabetes mellitus without complications[ICD10: E11.9] Carlyn Everett MD, [facility] CPT-4: 53577 2017 ([id number]) 20817 EST. PATIENT, LEVEL IV Diagnosis: Type 2 diabetes mellitus with hyperglycemia[ICD10: E11.65] Diagnosis: Essential (primary) hypertension[ICD10: I10] Diagnosis: Pain in left shoulder[ICD10: M25.512] Diagnosis: Pain in right shoulder[ICD10: M25.511] Diagnosis: Pain in left knee[ICD10: M25.562] Diagnosis: Pain in right knee[ICD10: M25.561] Vonda Everett MD, [facility] CPT- 4: 35947 09/09/2017 [id number] EST. PATIENT, LEVEL IV Diagnosis: Essential (primary) hypertension[ICD10: I10] Diagnosis: Type 2 diabetes mellitus with hyperglycemia[ICD10: E11.65] Diagnosis: Low back pain[ICD10: M54.5] Sunitha Everett MD, [facility] CPT-4: 98149 06/08/2017 ([id number]) 75702 EST. PATIENT, LEVEL IV Diagnosis: Essential (primary) hypertension[ICD10: I10] Diagnosis: Type 2 diabetes mellitus with hyperglycemia[ICD10: E11.65] Diagnosis: Low back pain[ICD10: M54.5] Sunitha Everett MD, [facility] CPT-4: 43423 04/15/2017 ([id number]) 64438 EST. PATIENT, LEVEL IV Diagnosis: Essential (primary) hypertension[ICD10: I10] Diagnosis: Type 2 diabetes mellitus with hyperglycemia[ICD10: E11.65] Diagnosis: Low back pain[ICD10: M54.5] Vonda Everett MD, [facility] CPT-4: 28778 02/16/2017 99904 EST. PATIENT, LEVEL III Diagnosis: Other complications of gastrostomy[ICD10: K94.29] Sunitha Everett MD, [facility] CPT-4: 35763 11/09/2016 ([id number]) 61143 EST. 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] Diagnosis: Impacted cerumen, right ear[ICD10: H61.21] Diagnosis: Cervicalgia[ICD10: M54.2] Carlyn Everett MD, [facility] CPT-4: 45125 07/18/2015 ([id number]) OFFICE/OUTPATIENT VISIT NEW Diagnosis: Essential (primary) hypertension[ICD10: I10] Diagnosis: Type 2 diabetes mellitus with hyperglycemia[ICD10: E11.65] Diagnosis: Apraxia following cerebral infarction[ICD10: I69.390] Diagnosis: Ataxia following cerebral infarction[ICD10: I69.393] Diagnosis: 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] Diagnosis: Dysphagia following cerebral infarction[ICD10: I69.391] 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] Diagnosis: Candidal esophagitis[ICD10: B37.81] Vonda Everett MD, [facility] CPT- 4: 26569 06/17/2015 Plan of Care Planned Activity Notes Codes Status Date Visit Plan: Pneumonia - Pt has been diagnosed with pneumonia by physical exam. A chest xray has been ordered as have antibiotics. The pt is aware of the diagnosis and the need for acute treatment of this illness. Right knee pain -xray knee-rx for voltaren gel 03/18/2018 Appointment: Carlyn Higginbotham WPtel: [address] [place], [place] [phone] (30 min) Complex 03/18/2018 Patient Education: Patient Medication Summary Completed 03/18/2018 Appointment: Carlyn Higginbotham WPtel: [address] [place], [place] [phone] (30 min) Complex 03/17/2018 Appointment: Carlyn Higginbotham WPtel: [address] [place], [place] [phone] [place] [address] (15 min) Moderate 03/10/2018 Appointment: Carlyn Higginbotham WPtel: [address] [place], [place] [phone] [place] [address] (15 min) Moderate 02/08/2018 Visit Plan: DM -decrease levemir to 4 units daily -monitor blood sugars MVO-tdkiidzwat-fc changes Chronic pain -well controlled with fentanyl patch -no changes at this time 01/07/2018 Appointment: Carlyn Higginbotham WPtel: [address] [place], [place] [phone] [place] [address] (15 min) Moderate 01/07/2018 Patient Education: Patient [...] AT HS 2017 Appointment: Carlyn Higginbotham WPtel: [address] [place], [place] [phone] [place] [address] (15 min) Moderate 2017 Patient Education: Patient [...] 175mcg. 09/09/2017 [facility] [phone] [facility] (15 min) Moderate 09/09/2017 Patient Education: [...] record. 06/08/2017 [phone] [phone] ([facility] min) Complex 06/08/2017 Patient Education: Patient [...] over-medication. 04/15/2017 Appointment: [facility] [phone] [facility] (30 min) Complex 04/15/2017 Patient Education: Patient [...] today. 02/16/2017 [facility] [phone] [phone] (15 min) Moderate 02/16/2017 Patient Education: [...] concerns. 11/09/2016 Appointment: Sunitha Patel WPtel: [phone] [facility] (30 min) Complex 11/09/2016 Patient Education: Patient Medication Summary Completed 11/09/2016 Care Plan: Referral Order SNOMED-CT : [id number] Pending 11/09/2016 Patient Education: Patient Medication Summary [...] Follow up weight in 1 month Neck womo-xzotguaruxy-Fuab PT focus neck/upper body Right earache-cerumen removed with water pick today in the office 07/18/2015 Appointment: (30 min) Complex 07/18/2015 Patient Education: Patient Medication Summary Completed 07/18/2015 Patient Education: Obesity Completed 07/18/2015 Patient Education: .Cervicalgia Neck Pain Completed 07/18/2015 [facility] [phone] [phone] Ref[facility] Completed 06/25/2015 Visit Plan: Hypertension [...] labs this week, get report from and [facility]. I spent over an hour with the patient in direct contact. 06/17/2015 Appointment: [facility] [phone] [phone] New Patient 06/17/2015 Patient Education: Patient Medication Summary Completed 06/17/2015 Patient Education: Obesity Completed 06/17/2015 Patient Education: Hypertension Completed 06/17/2015 Care Plan: Referral Order SNOMED-CT : [id number] Ordered 06/17/2015 Referral: Jorge Luis Carroll Referral Initiated [facility] [phone] [phone] Ref[facility] Appointment Requested Instructions Comment . [...] normal liver response to medications. 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 I spent over an hour with the patient in direct contact. . PEG tube - tube has not been replaced in some time, some mild irritation noted around the tube - will refer to surgeon for PEG tube replacement. Pt/family is to notify clinic with any changes, questions, or concerns. Add 1 scoop of whey protein from [facility] to 2 feedings per day . [...] Follow up weight in 1 month Neck cysk-xuwcvvrqjnm-Znyo PT focus neck/upper body Right earache-cerumen removed [...] to 4 units daily -monitor blood sugars XXG-lymcdgpqyv-ng changes Chronic pain -well controlled with fentanyl [...]
--- OUTSIDE RECORDS SUMMARY | 2018-08-09 12:10 | XMS REPORT | CCD ---
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 Name Role Phone PP Unavailable CCM Unavailable Summary Purpose Interface Exchange Insurance Providers Payer name Policy type / Coverage type Covered republican ID Effective Begin Date Effective End Date WPS Medicare Part B Medicare Part B [id number] Unknown Unknown [facility] Life Insurance Medicare Part B [id number] Unknown Unknown Family history Father Diagnosis Age At Onset Arthritis Unknown Hypertension Unknown Mother Diagnosis Age At Onset Diabetes mellitus Type 2 Unknown Depression Unknown Arthritis Unknown Stroke Unknown Hypertension Unknown Sister Diagnosis Age At Onset Colon cancer Unknown Social History Social History Element Codes Description Effective Dates Marital status Unknown Maurice 01/07/2018 Living arrangements Unknown Detention [facility] 04/15/2017 Number of children Unknown 3 06/17/2015 Employment Unknown Retired 06/17/[address]: 2283372 Quit over 10 years ago 15+ 06/17/[address]: 511938484 Never drinks alcohol 06/17/2015 Allergies, Adverse Reactions, [...] Start Date Stop Date Status Fill Instructions cefdinir 300 mg capsule RxNorm: 466171 1 Capsule(s) PO BID 03/18/2018 03/24/2018 Active Zithromax Z-Eliu 250 mg tablet RxNorm: 983299 Tablet(s) PO 03/18/2018 No Stop Date Active albuterol sulfate concentrate 5 mg/mL(0.5 %) solution for nebulization RxNorm: 740597 1 Vial Milliliter(s) INH TID PRN as needed congestion 03/18/2018 No Stop Date Active Voltaren 1 % topical gel RxNorm: 686723 4 Gram(s) TOP QID 03/18/2018 No Stop Date Active hydrochlorothiazide 25 mg tablet RxNorm: 860519 GIVE 1 TABLET VIA PEG TUBE ONCE DAILY 03/11/2018 09/06/2018 Active Generic For:HYDRODIURIL 25 MG TABLET 03/11/2018 9:15:32 AM fentanyl 100 mcg/hr transdermal patch RxNorm: 484056 1 Patch TD Q72H 03/02/2018 03/31/2018 Active Duragesic 75 mcg/hr transdermal patch RxNorm: 149827 1 Patch TD Q72H 03/02/2018 03/31/2018 Active hydrocodone 10 mg-acetaminophen 325 mg tablet RxNorm: 823562 2 Tablet(s) PO scheduled TID 02/18/2018 No Stop Date Active Not to exceed 3gm/24hr acetaminophen hyoscyamine 0.125 mg disintegrating tablet RxNorm: 1449857 Tablet(s) 1-2 Tablet(s) PO Q8 as needed 02/08/2018 No Stop Date Active fentanyl 100 mcg/hr transdermal patch RxNorm: 069846 1 Patch TD Q72H 02/04/2018 03/01/2018 Inactive hydrocodone 10 mg-acetaminophen 325 mg tablet RxNorm: 178926 2 Tablet(s) PO scheduled TID 02/04/2018 02/17/2018 Inactive Not to exceed 3gm/24hr acetaminophen Duragesic 75 mcg/hr transdermal patch RxNorm: 295550 1 Patch TD Q72H 02/04/2018 03/01/2018 Inactive Levemir FlexTouch U-100 Insulin 100 unit/mL (3 mL) subcutaneous pen RxNorm: 653724 4 Unit(s) SQ QHS 01/07/2018 No Stop Date Active Duragesic 75 mcg/hr transdermal patch RxNorm: 596331 1 Patch TD Q72H 01/07/2018 02/03/2018 Inactive fentanyl 100 mcg/hr transdermal patch RxNorm: 953076 1 Patch TD Q72H 01/07/2018 02/03/2018 Inactive hydrocodone 10 mg-acetaminophen 325 mg tablet RxNorm: 251296 2 Tablet(s) PO scheduled TID 01/05/2018 02/03/2018 Inactive Not to exceed 3gm/24hr acetaminophen hydrocodone 10 mg-acetaminophen 325 mg tablet RxNorm: 036358 2 Tablet(s) PO scheduled TID and 1 tab q 4 as needed 01/04/2018 01/04/2018 Inactive Not to exceed 3gm/24hr acetaminophen cyanocobalamin (vit B-12) 1,000 mcg tablet RxNorm: 257984 1 Tablet(s) PO daily 12/28/2017 11/22/2018 Active baclofen 10 mg tablet RxNorm: 161933 Tablet(s) TAKE 1 TABLET THREE TIMES DAILY VIA STOMACH TUBE 12/27/2017 05/25/2018 Active 10/07/2017 5:36:15 PM 10/07/2017 5:36:13 PM N O T I C E Last quantity doesn't match original quantity Duragesic 75 mcg/hr transdermal patch RxNorm: 445503 1 Patch TD Q72H 12/22/2017 01/06/2018 Inactive fentanyl 100 mcg/hr transdermal patch RxNorm: 825070 1 Patch TD Q72H 12/22/2017 01/06/2018 Inactive hydrocodone 10 mg-acetaminophen 325 mg tablet RxNorm: 621303 2 Tablet(s) PO scheduled TID and 1 tab q 4 as needed 12/20/2017 01/03/2018 Inactive Not to exceed 3gm/24hr acetaminophen hyoscyamine 0.125 mg disintegrating tablet RxNorm: 9595540 1-2 Tablet(s) PO Q8 as needed 12/14/2017 02/07/2018 Inactive Duragesic 75 mcg/hr transdermal patch RxNorm: 644485 1 Patch TD Q72H 12/06/2017 12/21/2017 Inactive fentanyl 100 mcg/hr transdermal patch RxNorm: 646762 1 Patch TD Q72H 12/06/2017 12/21/2017 Inactive hydrocodone 10 mg-acetaminophen 325 mg tablet RxNorm: 440389 2 Tablet(s) PO scheduled TID and 1 tab q 4 as needed 11/29/2017 12/19/2017 Inactive Not to exceed 3gm/24hr acetaminophen Duragesic 75 mcg/hr transdermal patch RxNorm: 557395 1 Patch TD Q72H 11/11/2017 12/05/2017 Inactive hydrocodone 10 mg-acetaminophen 325 mg tablet RxNorm: 356418 2 Tablet(s) PO scheduled TID and 1 tab q 4 as needed 11/09/2017 11/28/2017 Inactive Not to exceed 3gm/24hr acetaminophen Levemir FlexTouch U-100 Insulin 100 unit/mL (3 mL) subcutaneous pen RxNorm: 357035 8 Unit(s) SQ QHS 11/09/2017 01/06/2018 Inactive fentanyl 100 mcg/hr transdermal patch RxNorm: 775861 1 Patch TD Q72H 2017 12/05/2017 Inactive hyoscyamine 0.125 mg disintegrating tablet RxNorm: 7716125 1-2 Tablet(s) PO Q8 as needed 11/03/2017 12/13/2017 Inactive carvedilol 3.125 mg tablet RxNorm: 893852 GIVE 1 TABLET VIA PEG TUBE 2 TIMES A DAY 10/22/2017 01/19/2018 Inactive Generic For:COREG 3.125MG 10/22/2017 9:23:30 AM hydrocodone 10 mg-acetaminophen 325 mg tablet RxNorm: 906716 2 Tablet(s) PO scheduled TID and 1 tab q 4 as needed 10/22/2017 2017 Inactive Not to exceed 3gm/24hr acetaminophen fentanyl 100 mcg/hr transdermal patch RxNorm: 403518 1 Patch TD Q72H 10/20/2017 11/07/2017 Inactive Duragesic 75 mcg/hr transdermal patch RxNorm: 204759 1 Patch TD Q72H 10/20/2017 11/10/2017 Inactive lorazepam 0.5 mg tablet RxNorm: 734685 1 Tablet(s) PO BID and 1 tab q 6 hours prn 10/18/2017 No Stop Date Active baclofen 10 mg tablet RxNorm: 164480 TAKE 1 TABLET THREE TIMES DAILY VIA STOMACH TUBE 10/07/2017 12/26/2017 Inactive 10/07/2017 5:36:15 PM 10/07/2017 5:36:13 PM N O T I C E Last quantity doesn't match original quantity cranberry extract 500 mg tablet RxNorm: 8639593 1 Tablet(s) PO QAM 10/04/2017 01/31/2018 Inactive Cipro 500 mg tablet RxNorm: 722148 1 Tablet(s) PO BID 10/04/2017 10/03/2017 Inactive dc keflex hydrocodone 10 mg-acetaminophen 325 mg tablet RxNorm: 526502 2 Tablet(s) PO scheduled TID as needed 10/04/2017 10/21/2017 Inactive Not to exceed 3gm/24hr acetaminophen cranberry extract 500 mg tablet RxNorm: 3889063 1 Tablet(s) PO QAM 10/04/2017 10/03/2017 Inactive Cipro 500 mg tablet RxNorm: 196257 1 Tablet(s) PO BID 10/04/2017 10/10/2017 Inactive dc keflex Duragesic 75 mcg/hr transdermal patch RxNorm: 278239 1 Patch TD Q72H 09/20/2017 10/19/2017 Inactive fentanyl 100 mcg/hr transdermal patch RxNorm: 938381 1 Patch TD Q72H 09/20/2017 10/19/2017 Inactive hyoscyamine 0.125 mg disintegrating tablet RxNorm: 5054061 1 Tablet(s) PO TID and 1 Tablet Q4H prn increased secretions 09/15/2017 11/02/2017 Inactive hydrocodone 10 mg-acetaminophen 325 mg tablet RxNorm: 342569 2 Tablet(s) PO scheduled TID and 1-2 Tabs Q4H PRN pain 09/15/2017 10/03/2017 Inactive Not to exceed 3gm/24hr acetaminophen lorazepam 0.5 mg tablet RxNorm: 275280 1 Tablet(s) PO BID 09/15/2017 10/17/2017 Inactive Lexapro 10 mg tablet RxNorm: 811417 1 Tablet(s) PO daily 09/10/2017 09/14/2017 Inactive lisinopril 10 mg tablet RxNorm: 192007 1 Tablet(s) PO daily 09/09/2017 06/05/2018 Active Levemir FlexTouch U-100 Insulin 100 unit/mL (3 mL) subcutaneous pen RxNorm: 344229 10 Unit(s) daily 09/09/2017 09/15/2017 Inactive Duragesic 75 mcg/hr transdermal patch RxNorm: 963473 1 Patch TD Q72H 09/09/2017 09/19/2017 Inactive nystatin 100,000 unit/gram topical cream RxNorm: 290942 1 Gram(s) TOP TID until healed to gaulding 09/06/2017 01/03/2018 Inactive nystatin 100,000 unit/gram topical cream RxNorm: 145034 1 Gram(s) TOP TID until healed to gaulding 09/06/2017 09/05/2017 Inactive hydrocodone 10 mg-acetaminophen 325 mg tablet RxNorm: 818049 2 Tablet(s) PO scheduled TID as needed 08/31/2017 09/14/2017 Inactive Not to exceed 3gm/24hr acetaminophen fentanyl 100 mcg/hr transdermal patch RxNorm: 698339 1 Patch TD Q72H 08/24/2017 09/19/2017 Inactive fentanyl 50 mcg/hr transdermal patch RxNorm: 907922 1 Patch TD Q72H 08/24/2017 09/08/2017 Inactive fentanyl 25 mcg/hr transdermal patch RxNorm: 499943 1 Patch TD Q72H 08/24/2017 08/24/2017 Inactive hyoscyamine 0.125 mg disintegrating tablet RxNorm: 0663088 Tablet(s) 1-2 Tablet(s) PO Q8 as needed 08/23/2017 09/14/2017 Inactive hydrocodone 10 mg-acetaminophen 325 mg tablet RxNorm: 746929 1 Tablet(s) PO scheduled TID et Q6 hours as needed 08/18/2017 08/30/2017 Inactive Not to exceed 3gm/24hr acetaminophen hydrochlorothiazide 25 mg tablet RxNorm: 600745 GIVE 1 TABLET VIA PEG TUBE ONCE DAILY 08/17/2017 02/12/2018 Inactive Generic For:HYDRODIURIL 25 MG TABLET 08/17/2017 9:01:54 AM08/11/2017 10:12:00 AM lorazepam 0.5 mg tablet RxNorm: 557119 1/2 Tablet(s) PO BID 08/03/2017 09/14/2017 Inactive fentanyl 100 mcg/hr transdermal patch RxNorm: 059983 1 Patch TD Q72H 07/26/2017 08/23/2017 Inactive fentanyl 25 mcg/hr transdermal patch RxNorm: 864963 1 Patch TD Q72H 07/26/2017 08/23/2017 Inactive hydrocodone 10 mg-acetaminophen 325 mg tablet RxNorm: 711119 1 Tablet(s) PO scheduled TID et Q6 hours as needed 07/16/2017 08/14/2017 Inactive Not to exceed 3gm/24hr acetaminophen hyoscyamine 0.125 mg disintegrating tablet RxNorm: 8940545 Tablet(s) 1-2 Tablet(s) PO Q8 as needed 07/13/2017 08/01/2017 Inactive baclofen 10 mg tablet RxNorm: 874555 TAKE 1 TABLET THREE TIMES DAILY VIA STOMACH TUBE 07/12/2017 10/06/2017 Inactive 07/12/2017 9:04:08 AM N O T I C E Last quantity doesn't match original quantity lorazepam 0.5 mg tablet RxNorm: 927111 1/2 Tablet(s) PO BID 07/02/2017 08/02/2017 Inactive fentanyl 100 mcg/hr transdermal patch RxNorm: 220149 1 Patch TD Q72H 06/28/2017 07/25/2017 Inactive fentanyl 25 mcg/hr transdermal patch RxNorm: 159240 1 Patch TD Q72H 06/28/2017 07/25/2017 Inactive hyoscyamine 0.125 mg disintegrating tablet RxNorm: 1364213 Tablet(s) 1-2 Tablet(s) PO Q8 as needed 06/03/2017 06/22/2017 Inactive fentanyl 25 mcg/hr transdermal patch RxNorm: 855137 1 Patch TD Q72H 05/26/2017 06/24/2017 Inactive Levemir FlexTouch U-100 Insulin 100 unit/mL (3 mL) subcutaneous pen RxNorm: 180409 20 Unit(s) SQ BID 05/26/2017 09/08/2017 Inactive fentanyl 100 mcg/hr transdermal patch RxNorm: 788481 1 Patch TD Q72H 05/26/2017 06/24/2017 Inactive hydrocodone 10 mg-acetaminophen 325 mg tablet RxNorm: 671552 1 Tablet(s) PO scheduled BID et Q6 hours as needed 05/12/2017 05/11/2017 Inactive hydrocodone 10 mg-acetaminophen 325 mg tablet RxNorm: 935290 1 Tablet(s) PO scheduled TID et Q6 hours as needed 05/12/2017 06/10/2017 Inactive Not to exceed 3gm/24hr acetaminophen docusate sodium 100 mg tablet RxNorm: 3154692 1 Tablet(s) PO BID as needed if no bowel movement 05/10/2017 05/09/2017 Inactive lisinopril 20 mg tablet RxNorm: 631605 1 Tablet(s) PO daily 05/10/2017 09/08/2017 Inactive docusate sodium 100 mg tablet RxNorm: 0692963 1 Tablet(s) PO BID as needed if no bowel movement 05/10/2017 09/14/2017 Inactive fentanyl 25 mcg/hr transdermal patch RxNorm: 700013 1 Patch TD Q72H 05/03/2017 05/25/2017 Inactive lorazepam 0.5 mg tablet RxNorm: 497491 1/2 Tablet(s) PO BID 05/03/2017 07/01/2017 Inactive fentanyl 100 mcg/hr transdermal patch RxNorm: 596796 1 Patch TD Q72H 04/27/2017 05/25/2017 Inactive carvedilol 3.125 mg tablet RxNorm: 348537 Tablet(s) GIVE 1 TABLET VIA PEG TUBE DAILY 04/15/2017 10/21/2017 Inactive Levemir FlexTouch 100 unit/mL (3 mL) subcutaneous insulin pen RxNorm: 442472 10 Unit(s) SQ BID 04/15/2017 2017 Inactive hyoscyamine 0.125 mg disintegrating tablet RxNorm: 2986957 1-2 Tablet(s) PO Q8 as needed 04/14/2017 05/03/2017 Inactive hydrocodone 10 mg-acetaminophen 325 mg tablet RxNorm: 621533 1 Tablet(s) PO scheduled BID et Q6 hours as needed 04/13/2017 05/02/2017 Inactive baclofen 10 mg tablet RxNorm: 128232 TAKE 1 TABLET THREE TIMES DAILY VIA STOMACH TUBE 04/08/2017 05/22/2017 Inactive 04/08/2017 9:32:07 AM fentanyl 25 mcg/hr transdermal patch RxNorm: 558027 1 Patch TD Q72H 04/05/2017 05/02/2017 Inactive lidocaine 10 mg/mL (1 %) injection solution RxNorm: 7285536 1 Milliliter(s) Inj daily Mix with rocephin 03/31/2017 03/30/2017 Inactive Pt resides at [facility] lidocaine 10 mg/mL (1 %) injection solution RxNorm: 4948914 1 Milliliter(s) Inj daily Mix with rocephin 03/31/2017 04/06/2017 Inactive Pt resides at [facility] fentanyl 100 mcg/hr transdermal patch RxNorm: 263643 1 Patch TD Q72H 03/29/2017 04/26/2017 Inactive nystatin 100,000 unit/gram topical powder RxNorm: 773004 APPLY UNDER BREASTS TWICE DAILY FOR YEAST SKIN INFECTION AND APPLY TO UNDERARM AND ABDOMINAL FOLDS AND PERIAREA TWICE DAILY 03/29/2017 03/28/2017 Inactive 03/27/2017 9:12:50 AM nystatin 100,000 unit/gram topical powder RxNorm: 503341 APPLY UNDER BREASTS TWICE DAILY FOR YEAST SKIN INFECTION AND APPLY TO UNDERARM AND ABDOMINAL FOLDS AND PERIAREA TWICE DAILY 03/29/2017 09/14/2017 Inactive 03/29/2017 9:42:55 AM03/27/2017 9:12:50 AM hyoscyamine 0.125 mg disintegrating tablet RxNorm: 0246896 1-2 Tablet(s) PO Q8 as needed 03/08/2017 03/27/2017 Inactive fentanyl 25 mcg/hr transdermal patch RxNorm: 329593 1 Patch TD Q72H 03/02/2017 03/31/2017 Inactive hydrocodone 10 mg-acetaminophen 325 mg tablet RxNorm: 098321 1 Tablet(s) PO scheduled BID et Q6 hours as needed 02/17/2017 03/18/2017 Inactive fentanyl 100 mcg/hr transdermal patch RxNorm: 186207 1 Patch TD Q72H 02/17/2017 03/18/2017 Inactive Lexapro 10 mg tablet RxNorm: 370481 1 Tablet(s) PO daily 02/05/2017 04/14/2017 Inactive Lexapro 10 mg tablet RxNorm: 990717 1 Tablet(s) PO daily 02/05/2017 02/04/2017 Inactive fentanyl 25 mcg/hr transdermal patch RxNorm: 460918 1 Patch TD Q72H 02/04/2017 03/01/2017 Inactive cyanocobalamin (vit B-12) 1,000 mcg tablet RxNorm: 609461 1 Tablet(s) PO daily 01/18/2017 12/13/2017 Inactive hyoscyamine 0.125 mg disintegrating tablet RxNorm: 6341294 Tablet(s) 1-2 Tablet(s) PO Q8 as needed 01/18/2017 02/06/2017 Inactive baclofen 10 mg tablet RxNorm: 723687 TAKE 1 TABLET THREE TIMES DAILY VIA STOMACH TUBE 01/04/2017 02/17/2017 Inactive 01/04/2017 9:25:18 AM fentanyl 100 mcg/hr transdermal patch RxNorm: 891088 1 Patch TD Q72H 12/25/2016 01/23/2017 Inactive hydrochlorothiazide 25 mg tablet RxNorm: 024297 Tablet(s) GIVE 1 TABLET VIA PEG TUBE ONCE A DAY 12/14/2016 07/11/2017 Inactive fentanyl 100 mcg/hr transdermal patch RxNorm: 070183 1 Patch TD Q72H 11/25/2016 12/24/2016 Inactive hyoscyamine 0.125 mg disintegrating tablet RxNorm: 3194487 Tablet(s) 1-2 Tablet(s) PO Q8 as needed 11/25/2016 12/14/2016 Inactive nystatin 100,000 unit/gram topical powder RxNorm: 931980 APPLY UNDER BREASTS TWICE DAILY FOR YEAST SKIN INFECTION AND APPLY TO UNDERARM AND ABDOMINAL FOLDS AND PERIAREA TWICE DAILY 11/24/2016 01/22/2017 Inactive 11/24/2016 9:34:02 AM hydrocodone 10 mg-acetaminophen 325 mg tablet RxNorm: 246995 1 Tablet(s) PO scheduled BID et Q6 hours as needed 11/02/2016 12/01/2016 Inactive cyanocobalamin (vit B-12) 1,000 mcg tablet RxNorm: 055818 1 Tablet(s) PO daily 11/02/2016 01/17/2017 Inactive hyoscyamine 0.125 mg disintegrating tablet RxNorm: 3786929 1-2 Tablet(s) PO Q8 as needed 10/19/2016 11/24/2016 Inactive fentanyl 100 mcg/hr transdermal patch RxNorm: 729085 1 Patch TD Q72H 10/13/2016 11/11/2016 Inactive hydrocodone 10 mg-acetaminophen 325 mg tablet RxNorm: 380032 1 Tablet(s) PO scheduled BID et Q6 hours as needed 10/05/2016 11/01/2016 Inactive baclofen 10 mg tablet RxNorm: 142101 TAKE 1 TABLET THREE TIMES DAILY VIA STOMACH TUBE 10/01/2016 11/14/2016 Inactive 10/01/2016 9:24:37 AM carvedilol 3.125 mg tablet RxNorm: 572119 GIVE 1 TABLET VIA PEG TUBE 2 TIMES A DAY 09/30/2016 12/28/2016 Inactive Generic For:COREG 3.125MG 09/30/2016 1:12:28 PM09/25/2016 9:06:11 AM Probiotic Blend 2 million cell-50 mg capsule RxNorm: 1 Capsule(s) PO BID 09/17/2016 09/23/2016 Inactive Keflex 500 mg capsule RxNorm: 514828 1 Capsule(s) PO TID 09/17/2016 09/23/2016 Inactive hyoscyamine 0.125 mg/5 mL oral elixir RxNorm: 0609080 5 Milliliter(s) PO TID 09/08/2016 09/17/2016 Inactive hyoscyamine 0.125 mg/5 mL oral elixir RxNorm: 5106065 5 Milliliter(s) PO TID 09/08/2016 09/07/2016 Inactive hyoscyamine 0.125 mg disintegrating tablet RxNorm: 1348924 1-2 Tablet(s) PO Q8 as needed 09/07/2016 10/18/2016 Inactive fentanyl 100 mcg/hr transdermal patch RxNorm: 557681 1 Patch TD Q72H 09/01/2016 09/30/2016 Inactive ranitidine 150 mg tablet RxNorm: 477462 1 Tablet(s) PO BID 08/25/2016 No Stop Date Active hydrocodone 10 mg-acetaminophen 325 mg tablet RxNorm: 172611 1 Tablet(s) PO scheduled BID et Q6 hours as needed 08/24/2016 09/22/2016 Inactive cyanocobalamin (vit B-12) 1,000 mcg tablet RxNorm: 091472 1 Tablet(s) PO daily 08/12/2016 11/01/2016 Inactive cyanocobalamin (vit B-12) 1,000 mcg tablet RxNorm: 242034 1 Tablet(s) PO daily 08/12/2016 08/11/2016 Inactive hydrocodone 10 mg-acetaminophen 325 mg tablet RxNorm: 545056 1-2 Tablet(s) PO Q6 as needed 08/03/2016 08/17/2016 Inactive fentanyl 100 mcg/hr transdermal patch RxNorm: 727512 1 Patch TD Q72H 08/03/2016 08/31/2016 Inactive nystatin 100,000 unit/gram topical powder RxNorm: 323001 APPLY UNDER BREASTS TWICE DAILY FOR YEAST SKIN INFECTION AND APPLY TO UNDERARM AND ABDOMINAL FOLDS AND PERIAREA TWICE DAILY 07/17/2016 09/14/2016 Inactive 07/17/2016 3:56:54 PM fentanyl 100 mcg/hr transdermal patch RxNorm: 061443 1 Patch TD Q72H 07/15/2016 08/02/2016 Inactive lisinopril 20 mg tablet RxNorm: 131238 1 Tablet(s) PO daily 07/02/2016 03/28/2017 Inactive hydrocodone 10 mg-acetaminophen 325 mg tablet RxNorm: 435348 1-2 Tablet(s) PO Q6 as needed 07/01/2016 07/15/2016 Inactive Xarelto 20 mg tablet RxNorm: 1117674 Tablet(s) TAKE 1 TABLET VIA PEG TUBE AT BEDTIME 06/19/2016 04/14/2017 Inactive fentanyl 100 mcg/hr transdermal patch RxNorm: 272811 1 Patch TD Q72H 06/17/2016 07/14/2016 Inactive nystatin 100,000 unit/gram topical powder RxNorm: 719068 APPLY TO UNDER BREASTS TWICE DAILY FOR YEAST SKIN INFECTION AND APPLY TO UNDERARM AND ABDOMINAL FOLDS AND PERIAREA TWICE DAILY 06/15/2016 07/16/2016 Inactive Generic For:MYCOSTATIN 100,000 UNITS/GM PW 06/15/2016 12:28:26 PM fentanyl 100 mcg/hr transdermal patch RxNorm: 966656 1 Patch TD Q72H 06/05/2016 06/16/2016 Inactive hydrocodone 10 mg-acetaminophen 325 mg tablet RxNorm: 386929 1-2 Tablet(s) PO Q6 as needed 06/02/2016 06/16/2016 Inactive Probiotic Blend 2 million cell-50 mg capsule RxNorm: 1 Capsule(s) PO BID 05/13/2016 05/19/2016 Inactive nitrofurantoin 100 mg capsule RxNorm: 073081 1 Capsule(s) PO BID 05/13/2016 05/19/2016 Inactive nitrofurantoin 100 mg capsule RxNorm: 216981 1 Capsule(s) PO BID 05/13/2016 05/12/2016 Inactive fentanyl 75 mcg/hr transdermal patch RxNorm: 552040 1 Patch TD Q72H 05/13/2016 06/04/2016 Inactive Keflex 500 mg capsule RxNorm: 366350 1 Capsule(s) PO TID 05/07/2016 05/13/2016 Inactive Patient at [facility] Keflex 500 mg capsule RxNorm: 620323 1 Capsule(s) PO TID 05/07/2016 05/06/2016 Inactive hydrocodone 10 mg-acetaminophen 325 mg tablet RxNorm: 276250 1-2 Tablet(s) PO Q6 as needed 05/04/2016 06/01/2016 Inactive hydrochlorothiazide 25 mg tablet RxNorm: 778742 Tablet(s) GIVE 1 TABLET VIA PEG TUBE ONCE A DAY 04/29/2016 11/24/2016 Inactive hydrochlorothiazide 25 mg tablet RxNorm: 101648 GIVE 1 TABLET VIA PEG TUBE ONCE A DAY 04/22/2016 04/28/2016 Inactive Generic For:HYDRODIURIL 25 MG TABLET refill request fentanyl 75 mcg/hr transdermal patch RxNorm: 189226 1 Patch TD Q72H 04/17/2016 05/12/2016 Inactive Xarelto 20 mg tablet RxNorm: 3565979 TAKE 1 TABLET VIA PEG TUBE AT BEDTIME 04/16/2016 06/14/2016 Inactive 04/16/2016 9:08:52 AM citalopram 40 mg tablet RxNorm: 406537 1 Tablet(s) PO daily 04/02/2016 02/25/2017 Inactive citalopram 40 mg tablet RxNorm: 549581 1 Tablet(s) PO daily 03/27/2016 04/01/2016 Inactive hydrocodone 10 mg-acetaminophen 325 mg tablet RxNorm: 831916 1-2 Tablet(s) PO Q6 as needed 03/27/2016 04/25/2016 Inactive fentanyl 75 mcg/hr transdermal patch RxNorm: 041876 1 Patch TD Q72H 03/18/2016 04/16/2016 Inactive hydrocodone 10 mg-acetaminophen 325 mg tablet RxNorm: 419216 1-2 Tablet(s) PO Q6 as needed 03/11/2016 03/26/2016 Inactive citalopram 40 mg tablet RxNorm: 441300 1 Tablet(s) PO daily 03/04/2016 03/26/2016 Inactive Levemir FlexTouch U-100 Insulin 100 unit/mL (3 mL) subcutaneous pen RxNorm: 006143 20 Unit(s) SQ BID 03/02/2016 09/27/2016 Inactive lisinopril 20 mg tablet RxNorm: 191805 1 Tablet(s) PO daily 02/25/2016 07/01/2016 Inactive Ativan 0.5 mg tablet RxNorm: 137750 1 Tablet(s) PO Q4H as needed 02/18/2016 04/14/2017 Inactive Xarelto 20 mg tablet RxNorm: 8391530 TAKE 1 TABLET VIA PEG TUBE AT BEDTIME 02/12/2016 04/11/2016 Inactive 02/12/2016 9:08:22 AM hydrocodone 10 mg-acetaminophen 325 mg tablet RxNorm: 642766 1-2 Tablet(s) PO Q6 as needed 02/12/2016 03/10/2016 Inactive fentanyl 75 mcg/hr transdermal patch RxNorm: 451752 1 Patch TD Q72H 02/11/2016 03/11/2016 Inactive citalopram 20 mg tablet RxNorm: 597693 1 Tablet(s) PO daily 01/28/2016 03/03/2016 Inactive fentanyl 75 mcg/hr transdermal patch RxNorm: 143809 1 TD Q72H 01/17/2016 02/10/2016 Inactive hydrocodone 10 mg-acetaminophen 325 mg tablet RxNorm: 532001 1-2 Tablet(s) PO Q6 as needed 01/07/2016 02/05/2016 Inactive fentanyl 50 mcg/hr transdermal patch RxNorm: 737483 1 TD Q72H 01/01/2016 01/16/2016 Inactive fentanyl 50 mcg/hr transdermal patch RxNorm: 613305 1 TD q 3 days 12/26/2015 12/31/2015 Inactive Xarelto 20 mg tablet RxNorm: 1480103 TAKE 1 TABLET VIA PEG TUBE AT BEDTIME 12/17/2015 02/11/2016 Inactive 12/16/2015 3:27:57 PM12/14/2015 9:45:17 AM hydrocodone 10 mg-acetaminophen 325 mg tablet RxNorm: 497187 1-2 Tablet(s) PO Q6 as needed 12/06/2015 01/04/2016 Inactive fentanyl 50 mcg/hr transdermal patch RxNorm: 578129 1 TD q 3 days 12/06/2015 12/25/2015 Inactive fentanyl 25 mcg/hr transdermal patch RxNorm: 806640 1 TD q 3 days 11/18/2015 12/05/2015 Inactive Zithromax Z-Eliu 250 mg tablet RxNorm: 654954 1 Tablet(s) PO UD 10/09/2015 02/26/2016 Inactive z pack as directed- please write out instructions- pt at [facility] nystatin 100,000 unit/gram topical powder RxNorm: 199078 APPLY TO UNDER BREASTS TWICE DAILY FOR YEAST SKIN INFECTION AND APPLY TO UNDERARM AND ABDOMINAL FOLDS AND PERIAREA TWICE DAILY 10/07/2015 12/05/2015 Inactive Generic For:MYCOSTATIN 100,000 UNITS/GM PW 10/05/2015 12:07:35 PM fentanyl 25 mcg/hr transdermal patch RxNorm: 767291 1 TD q 3 days 10/03/2015 11/01/2015 Inactive fentanyl 25 mcg/hr transdermal patch RxNorm: 485635 1 TD q 3 days 09/27/2015 10/02/2015 Inactive fentanyl 25 mcg/hr transdermal patch RxNorm: 982926 1 TD q 3 days 09/17/2015 09/26/2015 Inactive fentanyl 25 mcg/hr transdermal patch RxNorm: 247800 1 TD q 3 days 08/30/2015 09/16/2015 Inactive hydrocodone 5 mg-acetaminophen 325 mg tablet RxNorm: 872089 1 Tablet(s) PO Q6 as needed 08/30/2015 09/28/2015 Inactive Diflucan 100 mg tablet RxNorm: 305682 1 Tablet(s) Miscellaneous per peg daily 07/29/2015 08/04/2015 Inactive fentanyl 25 mcg/hr transdermal patch RxNorm: 300447 1 TD q 3 days 07/18/2015 08/29/2015 Inactive hydrocodone 5 mg-acetaminophen 325 mg tablet RxNorm: 254971 1 Tablet(s) PO Q6 as needed 07/18/2015 08/29/2015 Inactive Diflucan 100 mg tablet RxNorm: 234020 1 Tablet(s) Miscellaneous per peg daily 06/17/2015 06/23/2015 Inactive Senna-S 8.6 mg-50 mg tablet RxNorm: 810674 1 Tablet(s) PO daily as needed constipation No Start Date Active Dulcolax (bisacodyl) 10 mg rectal suppository RxNorm: 696543 1 Suppository RTL daily as needed constipation No Start Date Active polyethylene glycol 3350 17 gram/dose oral powder RxNorm: 503516 17 Gram(s) PO daily as needed constipation No Start Date Active baclofen 10 mg tablet RxNorm: 314308 1 Tablet(s) PO TID No Start Date 09/30/2016 Inactive Ativan 0.5 mg tablet RxNorm: 644701 1 Tablet(s) PO Q4H as needed No Start Date 02/17/2016 Inactive ranitidine 150 mg tablet RxNorm: 907713 1 Tablet(s) PO daily No Start Date 08/24/2016 Inactive carvedilol 3.125 mg tablet RxNorm: 673760 1 Tablet(s) PO daily No Start Date 09/29/2016 Inactive citalopram 40 mg tablet RxNorm: 481118 1 Tablet(s) PO daily No Start Date 01/27/2016 Inactive Probiotic Blend oral RxNorm: oral No Start Date 05/12/2016 Inactive hydrochlorothiazide 25 mg tablet RxNorm: 547109 1 Tablet(s) PO daily No Start Date 04/21/2016 Inactive albuterol sulfate concentrate 5 mg/mL(0.5 %) solution for nebulization RxNorm: 155875 1 Vial INH daily as needed congestion No Start Date 03/17/2018 Inactive Levemir FlexTouch 100 unit/mL (3 mL) subcutaneous insulin pen RxNorm: 063997 10 Unit(s) SQ BID No Start Date 03/01/2016 Inactive Zithromax Z-Eliu 250 mg tablet RxNorm: 099859 1 Tablet(s) PO UD No Start Date 10/08/2015 Inactive z pack as directed- please write out instructions- pt at [facility] nystatin 100,000 unit/gram topical powder RxNorm: 430753 Gram(s) TOP BID as needed No Start Date 10/06/2015 Inactive pravastatin 40 mg tablet RxNorm: 065485 Tablet(s) PO daily No Start Date 04/14/2017 Inactive lorazepam 0.5 mg tablet RxNorm: 891468 1/2 Tablet(s) PO BID No Start Date 05/02/2017 Inactive Xarelto 20 mg tablet RxNorm: 1999309 1 Tablet(s) PO daily No Start Date 12/16/2015 Inactive fentanyl 25 mcg/hr transdermal patch RxNorm: 266341 1 TD q 3 days No Start Date 07/17/2015 Inactive lisinopril 20 mg tablet RxNorm: 849436 1 Tablet(s) PO daily No Start Date 02/24/2016 Inactive hydrocodone 5 mg-acetaminophen 325 mg tablet RxNorm: 202876 1 Tablet(s) PO Q6 as needed No Start Date 07/17/2015 Inactive citalopram 40 mg tablet RxNorm: 287636 1 Tablet(s) PO daily No Start Date 03/03/2016 Inactive hyoscyamine 0.125 mg disintegrating tablet RxNorm: 5513145 1-2 Tablet(s) PO Q8 as needed No [...] 30.7 pg 02/14/2018 Cbc With Differential Ord2 [place]% 7.4 % 02/14/2018 Cbc With Differential Ord2 [...] 2.14 K/ul 02/14/2018 Cbc With Differential Ord2 [place] ABS# 0.5 K/ul 02/14/2018 Cbc With Differential Ord2 Eos ABS# 0.3 K/ul 02/14/2018 Cbc With Differential Ord2 Baso ABS# 0.0 K/ul 02/14/2018 Comp Metabolic Quc418 NA 142 mEq/L 02/14/2018 Comp Metabolic Ehw882 K 4.5 mEq/L 02/14/2018 Comp Metabolic Ghq736 CL 97 mEq/L 02/14/2018 Comp Metabolic Hvg430 CO2 41.0 mEq/L 02/14/2018 Comp Metabolic Mhe391 ANION GAP 9 02/14/2018 Comp Metabolic Cam206 GLUCOSE 111 mg/dL 02/14/2018 Comp Metabolic Cbt080 Creat 0.6 mg/dL 02/14/2018 Comp Metabolic Bqq883 eGFR 108 ml/min/1.73m2 02/14/2018 Comp Metabolic Ftk673 BUN 32 mg/dL 02/14/2018 Comp Metabolic Hfb843 B/C Ratio 54.2 Ratio 02/14/2018 Comp Metabolic Txl348 CALCIUM 8.9 mg/dL 02/14/2018 Comp Metabolic Vop868 ALK PHOS 81 U/L 02/14/2018 Comp Metabolic Fih547 AST(SGOT) 14 U/L 02/14/2018 Comp Metabolic Zsw354 ALT(SGPT) 11 U/L 02/14/2018 Comp Metabolic Yds715 BILI T 0.3 mg/dL 02/14/2018 Comp Metabolic Mcn891 ALBUMIN 3.4 g/dL 02/14/2018 Comp Metabolic Wjr673 TPRO 6.3 g/dL 02/14/2018 Comp Metabolic Trw417 GLOB 2.9 g/dL 02/14/2018 Comp Metabolic Qgp377 A/G Ratio 1.2 Ratio 02/14/2018 Comp Metabolic Kje558 Osmo 291 mOsmo 02/14/2018 %Hba1C Zst840 % HbA1c 32170- 6 5.5 % 02/14/2018 %Hba1C Ptc798 Gluc Ave 111 mg/dL 02/14/2018 Prealbumin 208787 PREALBUMIN 27 mg/dL 11/24/2017 %Hba1C Irf171 % HbA1c 71781- 6 5.5 % 11/04/2017 %Hba1C Yjs225 Gluc Ave 111 mg/dL 11/04/2017 Culture Urine [id number] URINE CULTURE SEE NOTES 10/04/2017 Culture Urine [id number] Continued Results 10/04/2017 Urine Culture Ucult Complete [...] Ord28 U-Com Culture to follow 10/01/2017 B12 Vat748 B12 >1500.00 pg/ml 02/19/2017 Cbc With Differential [...] 31.5 pg 02/02/2017 Cbc With Differential Ord2 [place]% 8.3 % 02/02/2017 Cbc With Differential Ord2 [...] 2.28 K/ul 02/02/2017 Cbc With Differential Ord2 [place] ABS# 0.6 K/ul 02/02/2017 Cbc With Differential Ord2 Eos ABS# 0.4 K/ul 02/02/2017 Cbc With Differential Ord2 Baso ABS# 0.0 K/ul 02/02/2017 %Hba1C Zoo420 % HbA1c 80906- 6 5.2 % 02/02/2017 %Hba1C Hdh824 Gluc Ave 103 mg/dL 02/02/2017 Comp Metabolic Ecr706 NA 138 mEq/L 02/02/2017 Comp Metabolic Cga011 K 4.5 mEq/L 02/02/2017 Comp Metabolic Quk690 CL 98 mEq/L 02/02/2017 Comp Metabolic Fck393 CO2 37.0 mEq/L 02/02/2017 Comp Metabolic Jfx408 ANION GAP 8 02/02/2017 Comp Metabolic Xew429 GLUCOSE 94 mg/dL 02/02/2017 Comp Metabolic Yfk604 Creat 0.7 mg/dL 02/02/2017 Comp Metabolic Zix733 eGFR 88 ml/min/1.73m2 02/02/2017 Comp Metabolic Ufb763 BUN 36 mg/dL 02/02/2017 Comp Metabolic Tmf924 B/C Ratio 50.7 Ratio 02/02/2017 Comp Metabolic Mkd313 CALCIUM 9.0 mg/dL 02/02/2017 Comp Metabolic Geu546 ALK PHOS 78 U/L 02/02/2017 Comp Metabolic Oan916 AST(SGOT) 22 U/L 02/02/2017 Comp Metabolic Isg009 ALT(SGPT) 28 U/L 02/02/2017 Comp Metabolic Snu795 BILI T 0.3 mg/dL 02/02/2017 Comp Metabolic Aob212 ALBUMIN 3.3 g/dL 02/02/2017 Comp Metabolic Byp525 TPRO 5.9 g/dL 02/02/2017 Comp Metabolic Euy849 GLOB 2.6 g/dL 02/02/2017 Comp Metabolic Iap823 A/G Ratio 1.3 Ratio 02/02/2017 Comp Metabolic Mwy770 Osmo 284 mOsmo 02/02/2017 %Hba1C Qtp921 % HbA1c 50058- 6 5.0 % 10/29/2016 %Hba1C Ity524 Gluc Ave 97 mg/dL 10/29/2016 Culture Urine [id number] URINE CULTURE SEE NOTES 09/21/2016 Culture Urine [id number] Continued Results 09/21/2016 Urine Culture Ucult Complete [...] 32.4 pg 07/30/2016 Cbc With Differential Ord2 [place]% 7.2 % 07/30/2016 Cbc With Differential Ord2 [...] 2.69 K/ul 07/30/2016 Cbc With Differential Ord2 [place] ABS# 0.5 K/ul 07/30/2016 Cbc With Differential Ord2 Eos ABS# 0.5 K/ul 07/30/2016 Cbc With Differential Ord2 Baso ABS# 0.0 K/ul 07/30/2016 Comp Metabolic Mxx631 NA 141 mEq/L 07/30/2016 Comp Metabolic Drx751 K 4.3 mEq/L 07/30/2016 Comp Metabolic Ovo916 CL 100 mEq/L 07/30/2016 Comp Metabolic Sfk487 CO2 33.0 mEq/L 07/30/2016 Comp Metabolic Hxs353 ANION GAP 12 07/30/2016 Comp Metabolic Lsw358 GLUCOSE 64 mg/dL 07/30/2016 Comp Metabolic Igb196 Creat 0.5 mg/dL 07/30/2016 Comp Metabolic Zxn727 eGFR 126 ml/min/1.73m2 07/30/2016 Comp Metabolic Ayq434 BUN 25 mg/dL 07/30/2016 Comp Metabolic Ham442 B/C Ratio 48.1 Ratio 07/30/2016 Comp Metabolic Vcx198 CALCIUM 8.9 mg/dL 07/30/2016 Comp Metabolic Zqr402 ALK PHOS 90 U/L 07/30/2016 Comp Metabolic Cnx815 AST(SGOT) 22 U/L 07/30/2016 Comp Metabolic Efh330 ALT(SGPT) 36 U/L 07/30/2016 Comp Metabolic Mni350 BILI T 0.3 mg/dL 07/30/2016 Comp Metabolic Adt978 ALBUMIN 3.4 g/dL 07/30/2016 Comp Metabolic Uys189 TPRO 6.0 g/dL 07/30/2016 Comp Metabolic Ppp227 GLOB 2.7 g/dL 07/30/2016 Comp Metabolic Jpi770 A/G Ratio 1.3 Ratio 07/30/2016 Comp Metabolic Rxc495 Osmo 284 mOsmo 07/30/2016 A1C Frequency Dln013 A1CF 20891-3 Last A1C performed at [facility] lab on: 05-12-2016 07/30/2016 %Hba1C Jav598 % HbA1c 89278- 6 5.2 % 05/12/2016 %Hba1C Opm156 Gluc Ave 103 mg/dL 05/12/2016 Culture Urine [id number] URINE CULTURE SEE NOTES 05/11/2016 Urine Culture [...] U-Com Culture to follow 05/06/2016 Culture Urine [id number] URINE CULTURE SEE NOTES 03/17/2016 Culture Urine [id number] Continued Results 03/17/2016 Urine Culture Ucult Complete [...] 32.0 pg 02/11/2016 Cbc With Differential Ord2 [place]% 9.1 % 02/11/2016 Cbc With Differential Ord2 [...] 2.59 K/ul 02/11/2016 Cbc With Differential Ord2 [place] ABS# 0.6 K/ul 02/11/2016 Cbc With Differential Ord2 Eos ABS# 0.3 K/ul 02/11/2016 Cbc With Differential Ord2 Baso ABS# 0.0 K/ul 02/11/2016 Comp Metabolic Fsb215 NA 137 mEq/L 02/11/2016 Comp Metabolic Grp203 K 4.4 mEq/L 02/11/2016 Comp Metabolic Rtu979 CL 100 mEq/L 02/11/2016 Comp Metabolic Kiz344 CO2 25.0 mEq/L 02/11/2016 Comp Metabolic Rwp103 ANION GAP 16 02/11/2016 Comp Metabolic Vbm238 GLUCOSE 99 mg/dL 02/11/2016 Comp Metabolic Efy006 Creat 0.6 mg/dL 02/11/2016 Comp Metabolic Xlw344 eGFR 99 ml/min/1.73m2 02/11/2016 Comp Metabolic Wkt402 BUN 27 mg/dL 02/11/2016 Comp Metabolic Nck855 B/C Ratio 42.2 Ratio 02/11/2016 Comp Metabolic Ssq410 CALCIUM 9.2 mg/dL 02/11/2016 Comp Metabolic Hhr743 ALK PHOS 74 U/L 02/11/2016 Comp Metabolic Sqv326 AST(SGOT) 24 U/L 02/11/2016 Comp Metabolic Sql001 ALT(SGPT) 26 U/L 02/11/2016 Comp Metabolic Vyo147 BILI T 0.5 mg/dL 02/11/2016 Comp Metabolic Dav916 ALBUMIN 3.5 g/dL 02/11/2016 Comp Metabolic Jol413 TPRO 6.2 g/dL 02/11/2016 Comp Metabolic Erm953 GLOB 2.7 g/dL 02/11/2016 Comp Metabolic Nwp783 A/G Ratio 1.3 Ratio 02/11/2016 Comp Metabolic Vnt476 Osmo 279 mOsmo 02/11/2016 Review of Systems [...] 1: 128/86 Code: 8480-6 BMI: 31.4 Code: 09758-9 Heart Rate 1: 72 bpm Height: 5'1" Weight: 166 lbs 06/17/2015 Blood Pressure 1: 110/78 Code: 8480-6 BMI: 33.3 Code: 24605-9 Heart Rate 1: 74 bpm Height: 5'1" [...] Present Encounters Encounter Performer Location Codes Date ([id number]) 07947 EST. PATIENT, LEVEL IV Diagnosis: Cough[ICD10: R05] Diagnosis: Pneumonia, unspecified organism[ICD10: J18.9] Diagnosis: Pain in right knee[ICD10: M25.561] Carlyn Everett MD, [facility] CPT- 4: 92500 03/18/2018 ([id number]) 80068 EST. PATIENT, LEVEL IV Diagnosis: Type 2 diabetes mellitus without complications[ICD10: E11.9] Diagnosis: Essential (primary) hypertension[ICD10: I10] Diagnosis: Chronic pain syndrome[ICD10: G89.4] Carlyn Everett MD, [facility] CPT-4: 67654 01/07/2018 ([id number]) 80987 EST. PATIENT, LEVEL IV Diagnosis: Essential (primary) hypertension[ICD10: I10] Diagnosis: Type 2 diabetes mellitus without complications[ICD10: E11.9] Carlyn Everett MD, [facility] CPT-4: 64197 2017 ([id number]) 97309 EST. PATIENT, LEVEL IV Diagnosis: Type 2 diabetes mellitus with hyperglycemia[ICD10: E11.65] Diagnosis: Essential (primary) hypertension[ICD10: I10] Diagnosis: Pain in left shoulder[ICD10: M25.512] Diagnosis: Pain in right shoulder[ICD10: M25.511] Diagnosis: Pain in left knee[ICD10: M25.562] Diagnosis: Pain in right knee[ICD10: M25.561] Vonda Everett MD, [facility] CPT- 4: 18028 09/09/2017 [id number] EST. PATIENT, LEVEL IV Diagnosis: Essential (primary) hypertension[ICD10: I10] Diagnosis: Type 2 diabetes mellitus with hyperglycemia[ICD10: E11.65] Diagnosis: Low back pain[ICD10: M54.5] Sunitha Everett MD, [facility] CPT-4: 69913 06/08/2017 ([id number]) 01035 EST. PATIENT, LEVEL IV Diagnosis: Essential (primary) hypertension[ICD10: I10] Diagnosis: Type 2 diabetes mellitus with hyperglycemia[ICD10: E11.65] Diagnosis: Low back pain[ICD10: M54.5] Sunitha Everett MD, [facility] CPT-4: 18749 04/15/2017 ([id number]) 90224 EST. PATIENT, LEVEL IV Diagnosis: Essential (primary) hypertension[ICD10: I10] Diagnosis: Type 2 diabetes mellitus with hyperglycemia[ICD10: E11.65] Diagnosis: Low back pain[ICD10: M54.5] Vonda Everett MD, [facility] CPT-4: 42452 02/16/2017 [id number] EST. 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 A chest xray has been ordered as have antibiotics. The pt is aware of the diagnosis and the need for acute treatment of this illness. Right knee pain -xray knee-rx for voltaren gel 03/18/2018 Patient Education: Patient Medication Summary Completed 03/18/2018 Appointment: Carlyn Higginbotham WPtel: [address] [place], [place] [phone] (30 min) Complex 03/17/2018 Appointment: Carlyn Higginbotham WPtel: [address] [place], [place] [phone] [place] (15 min) Moderate 03/10/2018 Appointment: Carlyn Higginbotham WPtel: [address] [place], [place] [phone] (15 min) Moderate 02/08/2018 Visit Plan: DM -decrease levemir to 4 units daily -monitor blood sugars NGV-nsdgxkhoos-ez changes Chronic pain -well controlled with fentanyl patch -no changes at this time 01/07/2018 Appointment: Carlyn Higginbotham WPtel: [phone] [phone] (15 min) Moderate 01/07/2018 Patient Education: Patient [...] HS 2017 Appointment: Carlyn Higginbotham WPtel: [phone] [phone] [place] (15 min) Moderate 2017 Patient Education: [...] 175mcg. 09/09/2017 Appointment: Vonda Everett WPtel: [phone] [facility] [place] (15 min) Moderate 09/09/2017 Patient [...] and PRN pain medications - will have [facility] fax over PRN medication administration record. 06/08/2017 Appointment: Sunitha Patel [facility]el[facility] [place] (30 min) Complex 06/08/2017 Patient Education: [...] over-medication. 04/15/2017 Appointment: [facility] [phone] [facility] (30 min) Complex 04/15/2017 Patient [...] hydrocodone today. 02/16/2017 Appointment: Vonda Everett WPtel: [facility] (15 min) Moderate 02/16/2017 Patient Education: Patient [...] concerns. 11/09/2016 Appointment: [facility] [phone] [facility] (30 min) Complex 11/09/2016 Patient Education: Patient Medication Summary Completed 11/09/2016 Care Plan: Referral Order SNOMED-CT : [id number] Pending 11/09/2016 Patient Education: Patient Medication Summary [...] Follow up weight in 1 month Neck qrok-iknmneilnxw-Xkch PT focus neck/upper body Right earache-cerumen removed with water pick today in the office 07/18/2015 Appointment: (30 min) Complex 07/18/2015 Patient Education: Patient Medication Summary Completed 07/18/2015 Patient Education: Obesity Completed 07/18/2015 Patient Education: .Cervicalgia Neck Pain Completed 07/18/2015 Referral: [facility] W[facility]el: [phone] [phone] Referral Completed 06/25/2015 Visit Plan: Hypertension - [...] week, get report from and [facility]. I spent over an hour with the patient in direct contact. 06/17/2015 Appointment: [facility] Everett [facility] [phone] [facility] New Patient 06/17/2015 Patient Education: Patient Medication Summary Completed 06/17/2015 Patient Education: Obesity Completed 06/17/2015 Patient Education: Hypertension Completed 06/17/2015 Care Plan: Referral Order SNOMED-CT : [id number] Ordered 06/17/2015 Referral: Jorge Luis Carroll Referral Initiated [phone] [facility] Ref[facility] Appointment Requested Instructions Comment . Hypertension [...] liver response to medications. referral to 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 I spent over an hour with the patient in direct contact. . PEG tube - tube has not been replaced in some time, some mild irritation noted around the tube - will refer to surgeon for PEG tube replacement. Pt/family is to notify clinic with any changes, questions, or concerns. Add 1 scoop of rufino protein from [facility] to 2 feedings per day . [...] Follow up weight in 1 month Neck tqlo-gpydofyaapy-Zayp PT focus neck/upper body Right earache-cerumen removed [...] to 4 units daily -monitor blood sugars ZKR-gdhrdnqihp-cl changes Chronic pain -well controlled with fentanyl [...] and PRN pain medications - will have [facility] fax over PRN medication administration record. . [...]
--- OUTSIDE RECORDS SUMMARY | 2018-08-09 12:13 | XMS REPORT | CCD ---
Author Author Vonda Everett Organization Vonda Everett MD, [facility] Address [address] [place] [address] Phone Care Team Providers Care Mannequin Decorator Name Role Phone PP Unavailable CCM Unavailable Summary Purpose Interface Exchange Insurance Providers Payer name Policy type / Coverage type Covered libertarian ID Effective Begin Date Effective End Date WPS Medicare Part B Medicare Part B [id number] Unknown Unknown [employer] Long-Term Life Insurance Medicare Part B [id number] Unknown Unknown Family history Father Diagnosis Age At Onset Arthritis Unknown Hypertension Unknown Mother Diagnosis Age At Onset Diabetes mellitus Type 2 Unknown Depression Unknown Arthritis Unknown Stroke Unknown Hypertension Unknown Sister Diagnosis Age At Onset Colon cancer Unknown Social History Social History Element Codes Description Effective Dates Marital status Unknown Maurice 01/07/2018 Living arrangements Unknown Custodial [facility] 04/15/2017 Number of children Unknown 3 06/17/2015 Employment Unknown Retired 06/17/[address]: 5083020 Quit over 10 years ago 15+ 06/17/[address]: 254475609 Never drinks alcohol 06/17/2015 Allergies, Adverse Reactions, [...] Active 09/09/2017 Unknown Pain in right knee ICD- 9: 719.46 ICD-10: M25.561 Active 09/09/2017 Unknown Pain [...] M25.512 09/09/2017 Active Pain in right knee ICD- 9: 719.46 ICD-10: M25.561 09/09/2017 Active Pain in [...] Start Date Stop Date Status Fill Instructions hydrochlorothiazide 25 mg tablet RxNorm: 101783 GIVE 1 TABLET VIA PEG TUBE ONCE DAILY 03/11/2018 09/06/2018 Active Generic For:HYDRODIURIL 25 MG TABLET 03/11/2018 9:15:32 AM fentanyl 100 mcg/hr transdermal patch RxNorm: 789697 1 Patch TD Q72H 03/02/2018 03/31/2018 Active Duragesic 75 mcg/hr transdermal patch RxNorm: 822121 1 Patch TD Q72H 03/02/2018 03/31/2018 Active hydrocodone 10 mg-acetaminophen 325 mg tablet RxNorm: 775518 2 Tablet(s) PO scheduled TID 02/18/2018 No Stop Date Active Not to exceed 3gm/24hr acetaminophen hyoscyamine 0.125 mg disintegrating tablet RxNorm: 6719737 Tablet(s) 1-2 Tablet(s) PO Q8 as needed 02/08/2018 No Stop Date Active fentanyl 100 mcg/hr transdermal patch RxNorm: 361423 1 Patch TD Q72H 02/04/2018 03/01/2018 Inactive hydrocodone 10 mg-acetaminophen 325 mg tablet RxNorm: 688910 2 Tablet(s) PO scheduled TID 02/04/2018 02/17/2018 Inactive Not to exceed 3gm/24hr acetaminophen Duragesic 75 mcg/hr transdermal patch RxNorm: 742143 1 Patch TD Q72H 02/04/2018 03/01/2018 Inactive Levemir FlexTouch U-100 Insulin 100 unit/mL (3 mL) subcutaneous pen RxNorm: 827926 4 Unit(s) SQ QHS 01/07/2018 No Stop Date Active Duragesic 75 mcg/hr transdermal patch RxNorm: 605245 1 Patch TD Q72H 01/07/2018 02/03/2018 Inactive fentanyl 100 mcg/hr transdermal patch RxNorm: 350016 1 Patch TD Q72H 01/07/2018 02/03/2018 Inactive hydrocodone 10 mg-acetaminophen 325 mg tablet RxNorm: 071700 2 Tablet(s) PO scheduled TID 01/05/2018 02/03/2018 Inactive Not to exceed 3gm/24hr acetaminophen hydrocodone 10 mg-acetaminophen 325 mg tablet RxNorm: 511844 2 Tablet(s) PO scheduled TID and 1 tab q 4 as needed 01/04/2018 01/04/2018 Inactive Not to exceed 3gm/24hr acetaminophen cyanocobalamin (vit B-12) 1,000 mcg tablet RxNorm: 904928 1 Tablet(s) PO daily 12/28/2017 11/22/2018 Active baclofen 10 mg tablet RxNorm: 079920 Tablet(s) TAKE 1 TABLET THREE TIMES DAILY VIA STOMACH TUBE 12/27/2017 05/25/2018 Active 10/07/2017 5:36:15 PM 10/07/2017 5:36:13 PM N O T I C E Last quantity doesn't match original quantity Duragesic 75 mcg/hr transdermal patch RxNorm: 827463 1 Patch TD Q72H 12/22/2017 01/06/2018 Inactive fentanyl 100 mcg/hr transdermal patch RxNorm: 000710 1 Patch TD Q72H 12/22/2017 01/06/2018 Inactive hydrocodone 10 mg-acetaminophen 325 mg tablet RxNorm: 178974 2 Tablet(s) PO scheduled TID and 1 tab q 4 as needed 12/20/2017 01/03/2018 Inactive Not to exceed 3gm/24hr acetaminophen hyoscyamine 0.125 mg disintegrating tablet RxNorm: 8336198 1-2 Tablet(s) PO Q8 as needed 12/14/2017 02/07/2018 Inactive Duragesic 75 mcg/hr transdermal patch RxNorm: 815722 1 Patch TD Q72H 12/06/2017 12/21/2017 Inactive fentanyl 100 mcg/hr transdermal patch RxNorm: 191575 1 Patch TD Q72H 12/06/2017 12/21/2017 Inactive hydrocodone 10 mg-acetaminophen 325 mg tablet RxNorm: 029392 2 Tablet(s) PO scheduled TID and 1 tab q 4 as needed 11/29/2017 12/19/2017 Inactive Not to exceed 3gm/24hr acetaminophen Duragesic 75 mcg/hr transdermal patch RxNorm: 131896 1 Patch TD Q72H 11/11/2017 12/05/2017 Inactive hydrocodone 10 mg-acetaminophen 325 mg tablet RxNorm: 798095 2 Tablet(s) PO scheduled TID and 1 tab q 4 as needed 11/09/2017 11/28/2017 Inactive Not to exceed 3gm/24hr acetaminophen Levemir FlexTouch U-100 Insulin 100 unit/mL (3 mL) subcutaneous pen RxNorm: 048915 8 Unit(s) SQ QHS 11/09/2017 01/06/2018 Inactive fentanyl 100 mcg/hr transdermal patch RxNorm: 428383 1 Patch TD Q72H 2017 12/05/2017 Inactive hyoscyamine 0.125 mg disintegrating tablet RxNorm: 9644184 1-2 Tablet(s) PO Q8 as needed 11/03/2017 12/13/2017 Inactive carvedilol 3.125 mg tablet RxNorm: 160055 GIVE 1 TABLET VIA PEG TUBE 2 TIMES A DAY 10/22/2017 01/19/2018 Inactive Generic For:COREG 3.125MG 10/22/2017 9:23:30 AM hydrocodone 10 mg-acetaminophen 325 mg tablet RxNorm: 874717 2 Tablet(s) PO scheduled TID and 1 tab q 4 as needed 10/22/2017 2017 Inactive Not to exceed 3gm/24hr acetaminophen fentanyl 100 mcg/hr transdermal patch RxNorm: 695074 1 Patch TD Q72H 10/20/2017 11/07/2017 Inactive Duragesic 75 mcg/hr transdermal patch RxNorm: 714082 1 Patch TD Q72H 10/20/2017 11/10/2017 Inactive lorazepam 0.5 mg tablet RxNorm: 725579 1 Tablet(s) PO BID and 1 tab q 6 hours prn 10/18/2017 No Stop Date Active baclofen 10 mg tablet RxNorm: 446626 TAKE 1 TABLET THREE TIMES DAILY VIA STOMACH TUBE 10/07/2017 12/26/2017 Inactive 10/07/2017 5:36:15 PM 10/07/2017 5:36:13 PM N O T I C E Last quantity doesn't match original quantity cranberry extract 500 mg tablet RxNorm: 4141724 1 Tablet(s) PO QAM 10/04/2017 01/31/2018 Inactive Cipro 500 mg tablet RxNorm: 366941 1 Tablet(s) PO BID 10/04/2017 10/03/2017 Inactive dc keflex hydrocodone 10 mg-acetaminophen 325 mg tablet RxNorm: 827402 2 Tablet(s) PO scheduled TID as needed 10/04/2017 10/21/2017 Inactive Not to exceed 3gm/24hr acetaminophen cranberry extract 500 mg tablet RxNorm: 8602179 1 Tablet(s) PO QAM 10/04/2017 10/03/2017 Inactive Cipro 500 mg tablet RxNorm: 345181 1 Tablet(s) PO BID 10/04/2017 10/10/2017 Inactive dc keflex Duragesic 75 mcg/hr transdermal patch RxNorm: 756109 1 Patch TD Q72H 09/20/2017 10/19/2017 Inactive fentanyl 100 mcg/hr transdermal patch RxNorm: 349275 1 Patch TD Q72H 09/20/2017 10/19/2017 Inactive hyoscyamine 0.125 mg disintegrating tablet RxNorm: 0613146 1 Tablet(s) PO TID and 1 Tablet Q4H prn increased secretions 09/15/2017 11/02/2017 Inactive hydrocodone 10 mg-acetaminophen 325 mg tablet RxNorm: 746079 2 Tablet(s) PO scheduled TID and 1-2 Tabs Q4H PRN pain 09/15/2017 10/03/2017 Inactive Not to exceed 3gm/24hr acetaminophen lorazepam 0.5 mg tablet RxNorm: 081748 1 Tablet(s) PO BID 09/15/2017 10/17/2017 Inactive Lexapro 10 mg tablet RxNorm: 949908 1 Tablet(s) PO daily 09/10/2017 09/14/2017 Inactive lisinopril 10 mg tablet RxNorm: 469195 1 Tablet(s) PO daily 09/09/2017 06/05/2018 Active Levemir FlexTouch U-100 Insulin 100 unit/mL (3 mL) subcutaneous pen RxNorm: 943583 10 Unit(s) daily 09/09/2017 09/15/2017 Inactive Duragesic 75 mcg/hr transdermal patch RxNorm: 075077 1 Patch TD Q72H 09/09/2017 09/19/2017 Inactive nystatin 100,000 unit/gram topical cream RxNorm: 354452 1 Gram(s) TOP TID until healed to gaulding 09/06/2017 01/03/2018 Inactive nystatin 100,000 unit/gram topical cream RxNorm: 751444 1 Gram(s) TOP TID until healed to gaulding 09/06/2017 09/05/2017 Inactive hydrocodone 10 mg-acetaminophen 325 mg tablet RxNorm: 861969 2 Tablet(s) PO scheduled TID as needed 08/31/2017 09/14/2017 Inactive Not to exceed 3gm/24hr acetaminophen fentanyl 100 mcg/hr transdermal patch RxNorm: 882635 1 Patch TD Q72H 08/24/2017 09/19/2017 Inactive fentanyl 50 mcg/hr transdermal patch RxNorm: 267329 1 Patch TD Q72H 08/24/2017 09/08/2017 Inactive fentanyl 25 mcg/hr transdermal patch RxNorm: 769153 1 Patch TD Q72H 08/24/2017 08/24/2017 Inactive hyoscyamine 0.125 mg disintegrating tablet RxNorm: 5936322 Tablet(s) 1-2 Tablet(s) PO Q8 as needed 08/23/2017 09/14/2017 Inactive hydrocodone 10 mg-acetaminophen 325 mg tablet RxNorm: 759782 1 Tablet(s) PO scheduled TID et Q6 hours as needed 08/18/2017 08/30/2017 Inactive Not to exceed 3gm/24hr acetaminophen hydrochlorothiazide 25 mg tablet RxNorm: 465222 GIVE 1 TABLET VIA PEG TUBE ONCE DAILY 08/17/2017 02/12/2018 Inactive Generic For:HYDRODIURIL 25 MG TABLET 08/17/2017 9:01:54 AM08/11/2017 10:12:00 AM lorazepam 0.5 mg tablet RxNorm: 334978 1/2 Tablet(s) PO BID 08/03/2017 09/14/2017 Inactive fentanyl 100 mcg/hr transdermal patch RxNorm: 853407 1 Patch TD Q72H 07/26/2017 08/23/2017 Inactive fentanyl 25 mcg/hr transdermal patch RxNorm: 234893 1 Patch TD Q72H 07/26/2017 08/23/2017 Inactive hydrocodone 10 mg-acetaminophen 325 mg tablet RxNorm: 867955 1 Tablet(s) PO scheduled TID et Q6 hours as needed 07/16/2017 08/14/2017 Inactive Not to exceed 3gm/24hr acetaminophen hyoscyamine 0.125 mg disintegrating tablet RxNorm: 2149152 Tablet(s) 1-2 Tablet(s) PO Q8 as needed 07/13/2017 08/01/2017 Inactive baclofen 10 mg tablet RxNorm: 874809 TAKE 1 TABLET THREE TIMES DAILY VIA STOMACH TUBE 07/12/2017 10/06/2017 Inactive 07/12/2017 9:04:08 AM N O T I C E Last quantity doesn't match original quantity lorazepam 0.5 mg tablet RxNorm: 114133 1/2 Tablet(s) PO BID 07/02/2017 08/02/2017 Inactive fentanyl 100 mcg/hr transdermal patch RxNorm: 587542 1 Patch TD Q72H 06/28/2017 07/25/2017 Inactive fentanyl 25 mcg/hr transdermal patch RxNorm: 794997 1 Patch TD Q72H 06/28/2017 07/25/2017 Inactive hyoscyamine 0.125 mg disintegrating tablet RxNorm: 3671918 Tablet(s) 1-2 Tablet(s) PO Q8 as needed 06/03/2017 06/22/2017 Inactive fentanyl 25 mcg/hr transdermal patch RxNorm: 165569 1 Patch TD Q72H 05/26/2017 06/24/2017 Inactive Levemir FlexTouch U-100 Insulin 100 unit/mL (3 mL) subcutaneous pen RxNorm: 911723 20 Unit(s) SQ BID 05/26/2017 09/08/2017 Inactive fentanyl 100 mcg/hr transdermal patch RxNorm: 445328 1 Patch TD Q72H 05/26/2017 06/24/2017 Inactive hydrocodone 10 mg-acetaminophen 325 mg tablet RxNorm: 037339 1 Tablet(s) PO scheduled BID et Q6 hours as needed 05/12/2017 05/11/2017 Inactive hydrocodone 10 mg-acetaminophen 325 mg tablet RxNorm: 804593 1 Tablet(s) PO scheduled TID et Q6 hours as needed 05/12/2017 06/10/2017 Inactive Not to exceed 3gm/24hr acetaminophen docusate sodium 100 mg tablet RxNorm: 8967769 1 Tablet(s) PO BID as needed if no bowel movement 05/10/2017 05/09/2017 Inactive lisinopril 20 mg tablet RxNorm: 584184 1 Tablet(s) PO daily 05/10/2017 09/08/2017 Inactive docusate sodium 100 mg tablet RxNorm: 9216222 1 Tablet(s) PO BID as needed if no bowel movement 05/10/2017 09/14/2017 Inactive fentanyl 25 mcg/hr transdermal patch RxNorm: 310015 1 Patch TD Q72H 05/03/2017 05/25/2017 Inactive lorazepam 0.5 mg tablet RxNorm: 752997 1/2 Tablet(s) PO BID 05/03/2017 07/01/2017 Inactive fentanyl 100 mcg/hr transdermal patch RxNorm: 544124 1 Patch TD Q72H 04/27/2017 05/25/2017 Inactive carvedilol 3.125 mg tablet RxNorm: 557397 Tablet(s) GIVE 1 TABLET VIA PEG TUBE DAILY 04/15/2017 10/21/2017 Inactive Levemir FlexTouch 100 unit/mL (3 mL) subcutaneous insulin pen RxNorm: 754696 10 Unit(s) SQ BID 04/15/2017 2017 Inactive hyoscyamine 0.125 mg disintegrating tablet RxNorm: 8154601 1-2 Tablet(s) PO Q8 as needed 04/14/2017 05/03/2017 Inactive hydrocodone 10 mg-acetaminophen 325 mg tablet RxNorm: 839573 1 Tablet(s) PO scheduled BID et Q6 hours as needed 04/13/2017 05/02/2017 Inactive baclofen 10 mg tablet RxNorm: 533004 TAKE 1 TABLET THREE TIMES DAILY VIA STOMACH TUBE 04/08/2017 05/22/2017 Inactive 04/08/2017 9:32:07 AM fentanyl 25 mcg/hr transdermal patch RxNorm: 560628 1 Patch TD Q72H 04/05/2017 05/02/2017 Inactive lidocaine 10 mg/mL (1 %) injection solution RxNorm: 4803056 1 Milliliter(s) Inj daily Mix with rocephin 03/31/2017 03/30/2017 Inactive Pt resides at [facility] lidocaine 10 mg/mL (1 %) injection solution RxNorm: 2998983 1 Milliliter(s) Inj daily Mix with rocephin 03/31/2017 04/06/2017 Inactive Pt resides at [facility] fentanyl 100 mcg/hr transdermal patch RxNorm: 273760 1 Patch TD Q72H 03/29/2017 04/26/2017 Inactive nystatin 100,000 unit/gram topical powder RxNorm: 480954 APPLY UNDER BREASTS TWICE DAILY FOR YEAST SKIN INFECTION AND APPLY TO UNDERARM AND ABDOMINAL FOLDS AND PERIAREA TWICE DAILY 03/29/2017 03/28/2017 Inactive 03/27/2017 9:12:50 AM nystatin 100,000 unit/gram topical powder RxNorm: 468960 APPLY UNDER BREASTS TWICE DAILY FOR YEAST SKIN INFECTION AND APPLY TO UNDERARM AND ABDOMINAL FOLDS AND PERIAREA TWICE DAILY 03/29/2017 09/14/2017 Inactive 03/29/2017 9:42:55 AM03/27/2017 9:12:50 AM hyoscyamine 0.125 mg disintegrating tablet RxNorm: 5981769 1-2 Tablet(s) PO Q8 as needed 03/08/2017 03/27/2017 Inactive fentanyl 25 mcg/hr transdermal patch RxNorm: 743132 1 Patch TD Q72H 03/02/2017 03/31/2017 Inactive hydrocodone 10 mg-acetaminophen 325 mg tablet RxNorm: 955277 1 Tablet(s) PO scheduled BID et Q6 hours as needed 02/17/2017 03/18/2017 Inactive fentanyl 100 mcg/hr transdermal patch RxNorm: 616466 1 Patch TD Q72H 02/17/2017 03/18/2017 Inactive Lexapro 10 mg tablet RxNorm: 514331 1 Tablet(s) PO daily 02/05/2017 04/14/2017 Inactive Lexapro 10 mg tablet RxNorm: 670294 1 Tablet(s) PO daily 02/05/2017 02/04/2017 Inactive fentanyl 25 mcg/hr transdermal patch RxNorm: 654307 1 Patch TD Q72H 02/04/2017 03/01/2017 Inactive cyanocobalamin (vit B-12) 1,000 mcg tablet RxNorm: 358829 1 Tablet(s) PO daily 01/18/2017 12/13/2017 Inactive hyoscyamine 0.125 mg disintegrating tablet RxNorm: 0189703 Tablet(s) 1-2 Tablet(s) PO Q8 as needed 01/18/2017 02/06/2017 Inactive baclofen 10 mg tablet RxNorm: 820131 TAKE 1 TABLET THREE TIMES DAILY VIA STOMACH TUBE 01/04/2017 02/17/2017 Inactive 01/04/2017 9:25:18 AM fentanyl 100 mcg/hr transdermal patch RxNorm: 014040 1 Patch TD Q72H 12/25/2016 01/23/2017 Inactive hydrochlorothiazide 25 mg tablet RxNorm: 290008 Tablet(s) GIVE 1 TABLET VIA PEG TUBE ONCE A DAY 12/14/2016 07/11/2017 Inactive fentanyl 100 mcg/hr transdermal patch RxNorm: 209110 1 Patch TD Q72H 11/25/2016 12/24/2016 Inactive hyoscyamine 0.125 mg disintegrating tablet RxNorm: 8002925 Tablet(s) 1-2 Tablet(s) PO Q8 as needed 11/25/2016 12/14/2016 Inactive nystatin 100,000 unit/gram topical powder RxNorm: 236480 APPLY UNDER BREASTS TWICE DAILY FOR YEAST SKIN INFECTION AND APPLY TO UNDERARM AND ABDOMINAL FOLDS AND PERIAREA TWICE DAILY 11/24/2016 01/22/2017 Inactive 11/24/2016 9:34:02 AM hydrocodone 10 mg-acetaminophen 325 mg tablet RxNorm: 744200 1 Tablet(s) PO scheduled BID et Q6 hours as needed 11/02/2016 12/01/2016 Inactive cyanocobalamin (vit B-12) 1,000 mcg tablet RxNorm: 074170 1 Tablet(s) PO daily 11/02/2016 01/17/2017 Inactive hyoscyamine 0.125 mg disintegrating tablet RxNorm: 6078121 1-2 Tablet(s) PO Q8 as needed 10/19/2016 11/24/2016 Inactive fentanyl 100 mcg/hr transdermal patch RxNorm: 748355 1 Patch TD Q72H 10/13/2016 11/11/2016 Inactive hydrocodone 10 mg-acetaminophen 325 mg tablet RxNorm: 848290 1 Tablet(s) PO scheduled BID et Q6 hours as needed 10/05/2016 11/01/2016 Inactive baclofen 10 mg tablet RxNorm: 364501 TAKE 1 TABLET THREE TIMES DAILY VIA STOMACH TUBE 10/01/2016 11/14/2016 Inactive 10/01/2016 9:24:37 AM carvedilol 3.125 mg tablet RxNorm: 318005 GIVE 1 TABLET VIA PEG TUBE 2 TIMES A DAY 09/30/2016 12/28/2016 Inactive Generic For:COREG 3.125MG 09/30/2016 1:12:28 PM09/25/2016 9:06:11 AM Probiotic Blend 2 million cell-50 mg capsule RxNorm: 1 Capsule(s) PO BID 09/17/2016 09/23/2016 Inactive Keflex 500 mg capsule RxNorm: 326732 1 Capsule(s) PO TID 09/17/2016 09/23/2016 Inactive hyoscyamine 0.125 mg/5 mL oral elixir RxNorm: 4063557 5 Milliliter(s) PO TID 09/08/2016 09/17/2016 Inactive hyoscyamine 0.125 mg/5 mL oral elixir RxNorm: 1520694 5 Milliliter(s) PO TID 09/08/2016 09/07/2016 Inactive hyoscyamine 0.125 mg disintegrating tablet RxNorm: 1898241 1-2 Tablet(s) PO Q8 as needed 09/07/2016 10/18/2016 Inactive fentanyl 100 mcg/hr transdermal patch RxNorm: 659505 1 Patch TD Q72H 09/01/2016 09/30/2016 Inactive ranitidine 150 mg tablet RxNorm: 139097 1 Tablet(s) PO BID 08/25/2016 No Stop Date Active hydrocodone 10 mg-acetaminophen 325 mg tablet RxNorm: 991060 1 Tablet(s) PO scheduled BID et Q6 hours as needed 08/24/2016 09/22/2016 Inactive cyanocobalamin (vit B-12) 1,000 mcg tablet RxNorm: 288223 1 Tablet(s) PO daily 08/12/2016 11/01/2016 Inactive cyanocobalamin (vit B-12) 1,000 mcg tablet RxNorm: 216311 1 Tablet(s) PO daily 08/12/2016 08/11/2016 Inactive hydrocodone 10 mg-acetaminophen 325 mg tablet RxNorm: 219709 1-2 Tablet(s) PO Q6 as needed 08/03/2016 08/17/2016 Inactive fentanyl 100 mcg/hr transdermal patch RxNorm: 923865 1 Patch TD Q72H 08/03/2016 08/31/2016 Inactive nystatin 100,000 unit/gram topical powder RxNorm: 904412 APPLY UNDER BREASTS TWICE DAILY FOR YEAST SKIN INFECTION AND APPLY TO UNDERARM AND ABDOMINAL FOLDS AND PERIAREA TWICE DAILY 07/17/2016 09/14/2016 Inactive 07/17/2016 3:56:54 PM fentanyl 100 mcg/hr transdermal patch RxNorm: 550612 1 Patch TD Q72H 07/15/2016 08/02/2016 Inactive lisinopril 20 mg tablet RxNorm: 537243 1 Tablet(s) PO daily 07/02/2016 03/28/2017 Inactive hydrocodone 10 mg-acetaminophen 325 mg tablet RxNorm: 853688 1-2 Tablet(s) PO Q6 as needed 07/01/2016 07/15/2016 Inactive Xarelto 20 mg tablet RxNorm: 8388354 Tablet(s) TAKE 1 TABLET VIA PEG TUBE AT BEDTIME 06/19/2016 04/14/2017 Inactive fentanyl 100 mcg/hr transdermal patch RxNorm: 733929 1 Patch TD Q72H 06/17/2016 07/14/2016 Inactive nystatin 100,000 unit/gram topical powder RxNorm: 519417 APPLY TO UNDER BREASTS TWICE DAILY FOR YEAST SKIN INFECTION AND APPLY TO UNDERARM AND ABDOMINAL FOLDS AND PERIAREA TWICE DAILY 06/15/2016 07/16/2016 Inactive Generic For:MYCOSTATIN 100,000 UNITS/GM PW 06/15/2016 12:28:26 PM fentanyl 100 mcg/hr transdermal patch RxNorm: 016370 1 Patch TD Q72H 06/05/2016 06/16/2016 Inactive hydrocodone 10 mg-acetaminophen 325 mg tablet RxNorm: 062158 1-2 Tablet(s) PO Q6 as needed 06/02/2016 06/16/2016 Inactive Probiotic Blend 2 million cell-50 mg capsule RxNorm: 1 Capsule(s) PO BID 05/13/2016 05/19/2016 Inactive nitrofurantoin 100 mg capsule RxNorm: 793859 1 Capsule(s) PO BID 05/13/2016 05/19/2016 Inactive nitrofurantoin 100 mg capsule RxNorm: 901022 1 Capsule(s) PO BID 05/13/2016 05/12/2016 Inactive fentanyl 75 mcg/hr transdermal patch RxNorm: 670503 1 Patch TD Q72H 05/13/2016 06/04/2016 Inactive Keflex 500 mg capsule RxNorm: 914255 1 Capsule(s) PO TID 05/07/2016 05/13/2016 Inactive Patient at [facility] Keflex 500 mg capsule RxNorm: 898596 1 Capsule(s) PO TID 05/07/2016 05/06/2016 Inactive hydrocodone 10 mg-acetaminophen 325 mg tablet RxNorm: 168260 1-2 Tablet(s) PO Q6 as needed 05/04/2016 06/01/2016 Inactive hydrochlorothiazide 25 mg tablet RxNorm: 269250 Tablet(s) GIVE 1 TABLET VIA PEG TUBE ONCE A DAY 04/29/2016 11/24/2016 Inactive hydrochlorothiazide 25 mg tablet RxNorm: 405283 GIVE 1 TABLET VIA PEG TUBE ONCE A DAY 04/22/2016 04/28/2016 Inactive Generic For:HYDRODIURIL 25 MG TABLET refill request fentanyl 75 mcg/hr transdermal patch RxNorm: 988961 1 Patch TD Q72H 04/17/2016 05/12/2016 Inactive Xarelto 20 mg tablet RxNorm: 1703043 TAKE 1 TABLET VIA PEG TUBE AT BEDTIME 04/16/2016 06/14/2016 Inactive 04/16/2016 9:08:52 AM citalopram 40 mg tablet RxNorm: 777627 1 Tablet(s) PO daily 04/02/2016 02/25/2017 Inactive citalopram 40 mg tablet RxNorm: 294852 1 Tablet(s) PO daily 03/27/2016 04/01/2016 Inactive hydrocodone 10 mg-acetaminophen 325 mg tablet RxNorm: 451597 1-2 Tablet(s) PO Q6 as needed 03/27/2016 04/25/2016 Inactive fentanyl 75 mcg/hr transdermal patch RxNorm: 836475 1 Patch TD Q72H 03/18/2016 04/16/2016 Inactive hydrocodone 10 mg-acetaminophen 325 mg tablet RxNorm: 272778 1-2 Tablet(s) PO Q6 as needed 03/11/2016 03/26/2016 Inactive citalopram 40 mg tablet RxNorm: 745476 1 Tablet(s) PO daily 03/04/2016 03/26/2016 Inactive Levemir FlexTouch U-100 Insulin 100 unit/mL (3 mL) subcutaneous pen RxNorm: 818451 20 Unit(s) SQ BID 03/02/2016 09/27/2016 Inactive lisinopril 20 mg tablet RxNorm: 938922 1 Tablet(s) PO daily 02/25/2016 07/01/2016 Inactive Ativan 0.5 mg tablet RxNorm: 611750 1 Tablet(s) PO Q4H as needed 02/18/2016 04/14/2017 Inactive Xarelto 20 mg tablet RxNorm: 3737945 TAKE 1 TABLET VIA PEG TUBE AT BEDTIME 02/12/2016 04/11/2016 Inactive 02/12/2016 9:08:22 AM hydrocodone 10 mg-acetaminophen 325 mg tablet RxNorm: 110945 1-2 Tablet(s) PO Q6 as needed 02/12/2016 03/10/2016 Inactive fentanyl 75 mcg/hr transdermal patch RxNorm: 536225 1 Patch TD Q72H 02/11/2016 03/11/2016 Inactive citalopram 20 mg tablet RxNorm: 084951 1 Tablet(s) PO daily 01/28/2016 03/03/2016 Inactive fentanyl 75 mcg/hr transdermal patch RxNorm: 885418 1 TD Q72H 01/17/2016 02/10/2016 Inactive hydrocodone 10 mg-acetaminophen 325 mg tablet RxNorm: 248134 1-2 Tablet(s) PO Q6 as needed 01/07/2016 02/05/2016 Inactive fentanyl 50 mcg/hr transdermal patch RxNorm: 420184 1 TD Q72H 01/01/2016 01/16/2016 Inactive fentanyl 50 mcg/hr transdermal patch RxNorm: 650623 1 TD q 3 days 12/26/2015 12/31/2015 Inactive Xarelto 20 mg tablet RxNorm: 4540381 TAKE 1 TABLET VIA PEG TUBE AT BEDTIME 12/17/2015 02/11/2016 Inactive 12/16/2015 3:27:57 PM12/14/2015 9:45:17 AM hydrocodone 10 mg-acetaminophen 325 mg tablet RxNorm: 078117 1-2 Tablet(s) PO Q6 as needed 12/06/2015 01/04/2016 Inactive fentanyl 50 mcg/hr transdermal patch RxNorm: 106060 1 TD q 3 days 12/06/2015 12/25/2015 Inactive fentanyl 25 mcg/hr transdermal patch RxNorm: 656153 1 TD q 3 days 11/18/2015 12/05/2015 Inactive Zithromax Z-Eliu 250 mg tablet RxNorm: 137316 1 Tablet(s) PO UD 10/09/2015 02/26/2016 Inactive z pack as directed- please write out instructions- pt at [facility] nystatin 100,000 unit/gram topical powder RxNorm: 845392 APPLY TO UNDER BREASTS TWICE DAILY FOR YEAST SKIN INFECTION AND APPLY TO UNDERARM AND ABDOMINAL FOLDS AND PERIAREA TWICE DAILY 10/07/2015 12/05/2015 Inactive Generic For:MYCOSTATIN 100,000 UNITS/GM PW 10/05/2015 12:07:35 PM fentanyl 25 mcg/hr transdermal patch RxNorm: 576732 1 TD q 3 days 10/03/2015 11/01/2015 Inactive fentanyl 25 mcg/hr transdermal patch RxNorm: 506020 1 TD q 3 days 09/27/2015 10/02/2015 Inactive fentanyl 25 mcg/hr transdermal patch RxNorm: 778303 1 TD q 3 days 09/17/2015 09/26/2015 Inactive fentanyl 25 mcg/hr transdermal patch RxNorm: 838823 1 TD q 3 days 08/30/2015 09/16/2015 Inactive hydrocodone 5 mg-acetaminophen 325 mg tablet RxNorm: 718535 1 Tablet(s) PO Q6 as needed 08/30/2015 09/28/2015 Inactive Diflucan 100 mg tablet RxNorm: 869855 1 Tablet(s) Miscellaneous per peg daily 07/29/2015 08/04/2015 Inactive fentanyl 25 mcg/hr transdermal patch RxNorm: 295133 1 TD q 3 days 07/18/2015 08/29/2015 Inactive hydrocodone 5 mg-acetaminophen 325 mg tablet RxNorm: 095522 1 Tablet(s) PO Q6 as needed 07/18/2015 08/29/2015 Inactive Diflucan 100 mg tablet RxNorm: 447916 1 Tablet(s) Miscellaneous per peg daily 06/17/2015 06/23/2015 Inactive Senna-S 8.6 mg-50 mg tablet RxNorm: 277850 1 Tablet(s) PO daily as needed constipation No Start Date Active Dulcolax (bisacodyl) 10 mg rectal suppository RxNorm: 861494 1 Suppository RTL daily as needed constipation No Start Date Active albuterol sulfate concentrate 5 mg/mL(0.5 %) solution for nebulization RxNorm: 167445 1 Vial INH daily as needed congestion No Start Date Active polyethylene glycol 3350 17 gram/dose oral powder RxNorm: 477851 17 Gram(s) PO daily as needed constipation No Start Date Active baclofen 10 mg tablet RxNorm: 412101 1 Tablet(s) PO TID No Start Date 09/30/2016 Inactive Ativan 0.5 mg tablet RxNorm: 860068 1 Tablet(s) PO Q4H as needed No Start Date 02/17/2016 Inactive ranitidine 150 mg tablet RxNorm: 954030 1 Tablet(s) PO daily No Start Date 08/24/2016 Inactive carvedilol 3.125 mg tablet RxNorm: 842049 1 Tablet(s) PO daily No Start Date 09/29/2016 Inactive citalopram 40 mg tablet RxNorm: 082392 1 Tablet(s) PO daily No Start Date 01/27/2016 Inactive Probiotic Blend oral RxNorm: oral No Start Date 05/12/2016 Inactive hydrochlorothiazide 25 mg tablet RxNorm: 582371 1 Tablet(s) PO daily No Start Date 04/21/2016 Inactive Levemir FlexTouch 100 unit/mL (3 mL) subcutaneous insulin pen RxNorm: 479098 10 Unit(s) SQ BID No Start Date 03/01/2016 Inactive Zithromax Z-Eliu 250 mg tablet RxNorm: 753548 1 Tablet(s) PO UD No Start Date 10/08/2015 Inactive z pack as directed- please write out instructions- pt at [facility] nystatin 100,000 unit/gram topical powder RxNorm: 196042 Gram(s) TOP BID as needed No Start Date 10/06/2015 Inactive pravastatin 40 mg tablet RxNorm: 598223 Tablet(s) PO daily No Start Date 04/14/2017 Inactive lorazepam 0.5 mg tablet RxNorm: 119574 1/2 Tablet(s) PO BID No Start Date 05/02/2017 Inactive Xarelto 20 mg tablet RxNorm: 3200908 1 Tablet(s) PO daily No Start Date 12/16/2015 Inactive fentanyl 25 mcg/hr transdermal patch RxNorm: 191279 1 TD q 3 days No Start Date 07/17/2015 Inactive lisinopril 20 mg tablet RxNorm: 734310 1 Tablet(s) PO daily No Start Date 02/24/2016 Inactive hydrocodone 5 mg-acetaminophen 325 mg tablet RxNorm: 012257 1 Tablet(s) PO Q6 as needed No Start Date 07/17/2015 Inactive citalopram 40 mg tablet RxNorm: 897658 1 Tablet(s) PO daily No Start Date 03/03/2016 Inactive hyoscyamine 0.125 mg disintegrating tablet RxNorm: 0774957 1-2 Tablet(s) PO Q8 as needed No [...] Reason For Visit Effective Dates Notes hypertension 01/07/2018 hypertension 2017 pain 09/09/2017 pain [...] 30.7 pg 02/14/2018 Cbc With Differential Ord2 Sabine% 7.4 % 02/14/2018 Cbc With Differential Ord2 [...] 2.14 K/ul 02/14/2018 Cbc With Differential Ord2 Sabine ABS# 0.5 K/ul 02/14/2018 Cbc With Differential Ord2 Eos ABS# 0.3 K/ul 02/14/2018 Cbc With Differential Ord2 Baso ABS# 0.0 K/ul 02/14/2018 Comp Metabolic Gmg220 NA 142 mEq/L 02/14/2018 Comp Metabolic Wps390 K 4.5 mEq/L 02/14/2018 Comp Metabolic Xnr554 CL 97 mEq/L 02/14/2018 Comp Metabolic Glc907 CO2 41.0 mEq/L 02/14/2018 Comp Metabolic Mop442 ANION GAP 9 02/14/2018 Comp Metabolic Bqq556 GLUCOSE 111 mg/dL 02/14/2018 Comp Metabolic Cek637 Creat 0.6 mg/dL 02/14/2018 Comp Metabolic Nxp315 eGFR 108 ml/min/1.73m2 02/14/2018 Comp Metabolic Kfb964 BUN 32 mg/dL 02/14/2018 Comp Metabolic Udj655 B/C Ratio 54.2 Ratio 02/14/2018 Comp Metabolic Mwm704 CALCIUM 8.9 mg/dL 02/14/2018 Comp Metabolic Ddy485 ALK PHOS 81 U/L 02/14/2018 Comp Metabolic Oyj282 AST(SGOT) 14 U/L 02/14/2018 Comp Metabolic Mbx381 ALT(SGPT) 11 U/L 02/14/2018 Comp Metabolic Zvw901 BILI T 0.3 mg/dL 02/14/2018 Comp Metabolic Ais221 ALBUMIN 3.4 g/dL 02/14/2018 Comp Metabolic Xjt150 TPRO 6.3 g/dL 02/14/2018 Comp Metabolic Itm851 GLOB 2.9 g/dL 02/14/2018 Comp Metabolic Cwy752 A/G Ratio 1.2 Ratio 02/14/2018 Comp Metabolic Rrd799 Osmo 291 mOsmo 02/14/2018 %Hba1C Lho949 % HbA1c 58952- 6 5.5 % 02/14/2018 %Hba1C Ecr324 Gluc Ave 111 mg/dL 02/14/2018 Prealbumin 130026 PREALBUMIN 27 mg/dL 11/24/2017 %Hba1C Zgi357 % HbA1c 22814- 6 5.5 % 11/04/2017 %Hba1C Jaf078 Gluc Ave 111 mg/dL 11/04/2017 Culture Urine [id number] URINE CULTURE SEE NOTES 10/04/2017 Culture Urine [id number] Continued Results 10/04/2017 Urine Culture Ucult Complete [...] Ord28 U-Com Culture to follow 10/01/2017 B12 Oho580 B12 >1500.00 pg/ml 02/19/2017 Cbc With Differential [...] 31.5 pg 02/02/2017 Cbc With Differential Ord2 Sabine% 8.3 % 02/02/2017 Cbc With Differential Ord2 [...] 2.28 K/ul 02/02/2017 Cbc With Differential Ord2 [place]ine ABS# 0.6 K/ul 02/02/2017 Cbc With Differential Ord2 Eos ABS# 0.4 K/ul 02/02/2017 Cbc With Differential Ord2 Baso ABS# 0.0 K/ul 02/02/2017 %Hba1C Gkc484 % HbA1c 70231- 6 5.2 % 02/02/2017 %Hba1C Eyx010 Gluc Ave 103 mg/dL 02/02/2017 Comp Metabolic Agy582 NA 138 mEq/L 02/02/2017 Comp Metabolic Sme171 K 4.5 mEq/L 02/02/2017 Comp Metabolic Qsf616 CL 98 mEq/L 02/02/2017 Comp Metabolic Eeq449 CO2 37.0 mEq/L 02/02/2017 Comp Metabolic Lxa338 ANION GAP 8 02/02/2017 Comp Metabolic Gmg164 GLUCOSE 94 mg/dL 02/02/2017 Comp Metabolic Jyc312 Creat 0.7 mg/dL 02/02/2017 Comp Metabolic Gxn038 eGFR 88 ml/min/1.73m2 02/02/2017 Comp Metabolic Xdr001 BUN 36 mg/dL 02/02/2017 Comp Metabolic Rgt230 B/C Ratio 50.7 Ratio 02/02/2017 Comp Metabolic Hqe397 CALCIUM 9.0 mg/dL 02/02/2017 Comp Metabolic Qmf458 ALK PHOS 78 U/L 02/02/2017 Comp Metabolic Xfa352 AST(SGOT) 22 U/L 02/02/2017 Comp Metabolic Lvh184 ALT(SGPT) 28 U/L 02/02/2017 Comp Metabolic Hnm607 BILI T 0.3 mg/dL 02/02/2017 Comp Metabolic Nwp917 ALBUMIN 3.3 g/dL 02/02/2017 Comp Metabolic Thw437 TPRO 5.9 g/dL 02/02/2017 Comp Metabolic Eti529 GLOB 2.6 g/dL 02/02/2017 Comp Metabolic Wez659 A/G Ratio 1.3 Ratio 02/02/2017 Comp Metabolic Ldb280 Osmo 284 mOsmo 02/02/2017 %Hba1C Gkg507 % HbA1c 85874- 6 5.0 % 10/29/2016 %Hba1C Zhv296 Gluc Ave 97 mg/dL 10/29/2016 Culture Urine [id number] URINE CULTURE SEE NOTES 09/21/2016 Culture Urine [id number] Continued Results 09/21/2016 Urine Culture Ucult Complete [...] 32.4 pg 07/30/2016 Cbc With Differential Ord2 Sabine% 7.2 % 07/30/2016 Cbc With Differential Ord2 [...] 2.69 K/ul 07/30/2016 Cbc With Differential Ord2 [place] ABS# 0.5 K/ul 07/30/2016 Cbc With Differential Ord2 Eos ABS# 0.5 K/ul 07/30/2016 Cbc With Differential Ord2 Baso ABS# 0.0 K/ul 07/30/2016 Comp Metabolic Qow630 NA 141 mEq/L 07/30/2016 Comp Metabolic Eqo230 K 4.3 mEq/L 07/30/2016 Comp Metabolic Nyg700 CL 100 mEq/L 07/30/2016 Comp Metabolic Gxf308 CO2 33.0 mEq/L 07/30/2016 Comp Metabolic Svw876 ANION GAP 12 07/30/2016 Comp Metabolic Oep879 GLUCOSE 64 mg/dL 07/30/2016 Comp Metabolic Eim845 Creat 0.5 mg/dL 07/30/2016 Comp Metabolic Hft064 eGFR 126 ml/min/1.73m2 07/30/2016 Comp Metabolic Wni582 BUN 25 mg/dL 07/30/2016 Comp Metabolic Hpq705 B/C Ratio 48.1 Ratio 07/30/2016 Comp Metabolic Ezp468 CALCIUM 8.9 mg/dL 07/30/2016 Comp Metabolic Crc740 ALK PHOS 90 U/L 07/30/2016 Comp Metabolic Azm080 AST(SGOT) 22 U/L 07/30/2016 Comp Metabolic Sph433 ALT(SGPT) 36 U/L 07/30/2016 Comp Metabolic Fyr781 BILI T 0.3 mg/dL 07/30/2016 Comp Metabolic Mmj885 ALBUMIN 3.4 g/dL 07/30/2016 Comp Metabolic Jdd812 TPRO 6.0 g/dL 07/30/2016 Comp Metabolic Guk467 GLOB 2.7 g/dL 07/30/2016 Comp Metabolic Bhh199 A/G Ratio 1.3 Ratio 07/30/2016 Comp Metabolic Mal134 Osmo 284 mOsmo 07/30/2016 A1C Frequency Wfl422 A1CF 63398-9 [place] [facility] [place] [facility] [place]: 05-12[place]2016 07/30/2016 %Hba1C Vfi060 % HbA1c 42057- 6 5.2 % 05/12/2016 %Hba1C Rsv817 Gluc Ave 103 mg/dL 05/12/2016 Culture Urine [id number] URINE CULTURE SEE NOTES 05/11/2016 Urine Culture [...] U-Com Culture to follow 05/06/2016 Culture Urine [id number] URINE CULTURE SEE NOTES 03/17/2016 Culture Urine [id number] Continued Results 03/17/2016 Urine Culture Ucult Complete [...] 32.0 pg 02/11/2016 Cbc With Differential Ord2 Sabine% 9.1 % 02/11/2016 Cbc With Differential Ord2 [...] 2.59 K/ul 02/11/2016 Cbc With Differential Ord2 [place]ine ABS# 0.6 K/ul 02/11/2016 Cbc With Differential Ord2 Eos ABS# 0.3 K/ul 02/11/2016 Cbc With Differential Ord2 Baso ABS# 0.0 K/ul 02/11/2016 Comp Metabolic Cpo905 NA 137 mEq/L 02/11/2016 Comp Metabolic Wjv553 K 4.4 mEq/L 02/11/2016 Comp Metabolic Vgt034 CL 100 mEq/L 02/11/2016 Comp Metabolic Moq192 CO2 25.0 mEq/L 02/11/2016 Comp Metabolic Hug852 ANION GAP 16 02/11/2016 Comp Metabolic Btk321 GLUCOSE 99 mg/dL 02/11/2016 Comp Metabolic Gve024 Creat 0.6 mg/dL 02/11/2016 Comp Metabolic Rci567 eGFR 99 ml/min/1.73m2 02/11/2016 Comp Metabolic Fbt386 BUN 27 mg/dL 02/11/2016 Comp Metabolic Hvm324 B/C Ratio 42.2 Ratio 02/11/2016 Comp Metabolic Gsd993 CALCIUM 9.2 mg/dL 02/11/2016 Comp Metabolic Bzp330 ALK PHOS 74 U/L 02/11/2016 Comp Metabolic Exp817 AST(SGOT) 24 U/L 02/11/2016 Comp Metabolic Egy571 ALT(SGPT) 26 U/L 02/11/2016 Comp Metabolic Ory785 BILI T 0.5 mg/dL 02/11/2016 Comp Metabolic Bms564 ALBUMIN 3.5 g/dL 02/11/2016 Comp Metabolic Jut919 TPRO 6.2 g/dL 02/11/2016 Comp Metabolic Tsq051 GLOB 2.7 g/dL 02/11/2016 Comp Metabolic Ycc871 A/G Ratio 1.3 Ratio 02/11/2016 Comp Metabolic Hqw940 Osmo 279 mOsmo 02/11/2016 Review of Systems System Result Effective Dates Constitutional No recent illness 01/07/2018 Eyes No [...] with normal movement Full Exam - General 1995 Musculoskeletal spine, ribs and pelvis Overall: spine [...] CPT-4: G8553 06/17/2015 Vital Signs Date Vital 01/07/2018 Blood Pressure 1: 110/72 Code: 8480-6 [...] 1: 128/86 Code: 8480-6 BMI: 31.4 Code: 12509-5 Heart Rate 1: 72 bpm Height: 5'1" Weight: 166 lbs 06/17/2015 Blood Pressure 1: 110/78 Code: 8480-6 BMI: 33.3 Code: 32928-4 Heart Rate 1: 74 bpm Height: 5'1" SpO2: 92% Weight: 176 lbs Functional Status No Functional Status data History of Present Illness Symptom Name Status Result Effective Date Notes hypertension Quality primary hypertension 01/07/2018 None hypertension [...] Present Encounters Encounter Performer Location Codes Date ([id number]) 99056 EST. PATIENT, LEVEL IV Diagnosis: Type 2 diabetes mellitus without complications[ICD10: E11.9] Diagnosis: Essential (primary) hypertension[ICD10: I10] Diagnosis: Chronic pain syndrome[ICD10: G89.4] [facility] CPT-4: 81811 01/07/2018 ([id number]) 66829 EST. PATIENT, LEVEL IV Diagnosis: Essential (primary) hypertension[ICD10: I10] Diagnosis: Type 2 diabetes mellitus without complications[ICD10: E11.9] Carlyn Everett MD, [facility] CPT-4: 50983 2017 ([id number]) 49845 EST. PATIENT, LEVEL IV Diagnosis: Type 2 diabetes mellitus with hyperglycemia[ICD10: E11.65] Diagnosis: Essential (primary) hypertension[ICD10: I10] Diagnosis: Pain in left shoulder[ICD10: M25.512] Diagnosis: Pain in right shoulder[ICD10: M25.511] Diagnosis: Pain in left knee[ICD10: M25.562] Diagnosis: Pain in right knee[ICD10: M25.561] Vonda Everett MD, [facility] CPT- 4: 97898 09/09/2017 77874 EST. PATIENT, LEVEL IV Diagnosis: Essential (primary) hypertension[ICD10: I10] Diagnosis: Type 2 diabetes mellitus with hyperglycemia[ICD10: E11.65] Diagnosis: Low back pain[ICD10: M54.5] Sunitha Everett MD, [facility] CPT-4: 58572 06/08/2017 ([id number]) 76971 EST. PATIENT, LEVEL IV Diagnosis: Essential (primary) hypertension[ICD10: I10] Diagnosis: Type 2 diabetes mellitus with hyperglycemia[ICD10: E11.65] Diagnosis: Low back pain[ICD10: M54.5] Sunitha Everett MD, [facility] CPT-4: 60066 04/15/2017 ([id number]) 03440 EST. PATIENT, LEVEL IV Diagnosis: Essential (primary) hypertension[ICD10: I10] Diagnosis: Type 2 diabetes mellitus with hyperglycemia[ICD10: E11.65] Diagnosis: Low back pain[ICD10: M54.5] Vonda Everett MD, [facility] CPT-4: 88648 02/16/2017 05457 EST. 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] Diagnosis: Ataxia following cerebral infarction[ICD10: I69.393] Diagnosis: 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] Diagnosis: Dysphagia following cerebral infarction[ICD10: I69.391] 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] Diagnosis: Candidal esophagitis[ICD10: B37.81] [facility] CPT- 4: 23263 06/17/2015 Plan of Care Planned Activity Notes Codes Status Date Appointment: Carlyn Higginbotham WPtel: [address] [place], [place] [id number] [place] [address] (15 min) Moderate 03/10/2018 Appointment: Carlyn Higginbotham WPtel: [address] [place], [place] [phone] [place] [address] (15 min) Moderate 02/08/2018 Visit Plan: DM -decrease levemir to 4 units daily -monitor blood sugars KFU-alspitgsqm-sl changes Chronic pain -well controlled with fentanyl patch -no changes at this time 01/07/2018 Appointment: Carlyn Higginbotham WPtel: [address] [place], [place] [phone] [address] (15 min) Moderate 01/07/2018 Patient Education: Patient [...] HS 2017 Appointment: Carlyn Higginbotham WPtel: [phone] [phone] [place] (15 min) Moderate 2017 Patient [...] 175mcg. 09/09/2017 Appointment: Vonda Everett WPtel: [phone] [facility] [place] (15 min) Moderate 09/09/2017 Patient [...] record. 06/08/2017 [phone] (30 min) Complex 06/08/2017 Patient [...] over-medication. 04/15/2017 Appointment: [phone] (30 min) Complex 04/15/2017 Patient [...] today. 02/16/2017 Appointment: Vonda Everett WPtel: [phone] [facility] (15 min) Moderate 02/16/2017 Patient Education: [...] concerns. 11/09/2016 Appointment: [phone] (30 min) Complex 11/09/2016 Patient Education: Patient Medication Summary Completed 11/09/2016 Care Plan: Referral Order SNOMED-CT : [id number] Pending 11/09/2016 Patient Education: Patient Medication Summary [...] Follow up weight in 1 month Neck mxsu-greygwbisaw-Vzab PT focus neck/upper body Right earache-cerumen removed with water pick today in the office 07/18/2015 Appointment: (30 min) Complex 07/18/2015 Patient Education: Patient Medication Summary Completed 07/18/2015 Patient Education: Obesity Completed 07/18/2015 Patient Education: .Cervicalgia Neck Pain Completed 07/18/2015 Referral: [facility] WPtel: [phone] Referral Completed 06/25/2015 Visit Plan: Hypertension [...] normal liver response to medications. [facility] for post stroke - left sided weakness, neck stiffness, upper extremity weakness Diabetes Mellitus - controlled - per family report - check labs this week, get report from and [facility]. I spent over an hour with the patient in direct contact. 06/17/2015 Appointment: Vonda Everett WPtel: [phone] New Patient 06/17/2015 Patient Education: Patient Medication Summary Completed 06/17/2015 Patient Education: Obesity Completed 06/17/2015 Patient Education: Hypertension Completed 06/17/2015 Care Plan: Referral Order SNOMED-CT : [id number] Ordered 06/17/2015 Referral: Jorge Luis Carroll Referral Initiated Referral: [facility] W[facility]el: [phone] [facility] [address] Referral Appointment Requested Instructions Comment . Hypertension [...] normal liver response to medications. referral to [facility] therapy for post stroke - left sided weakness, neck stiffness, upper extremity weakness Diabetes Mellitus - controlled - per family report - check labs this week, get report from and [facility]. I spent over an hour with the patient in direct contact. . PEG tube - tube has not been replaced in some time, some mild irritation noted around the tube - will refer to surgeon for PEG tube replacement. Pt/family is to notify clinic with any changes, questions, or concerns. Add 1 scoop of whey protein from [facility] to 2 feedings per day . [...] Follow up weight in 1 month Neck ktqi-pmwpdziocef-Wkqt PT focus neck/upper body Right earache-cerumen removed [...] to 4 units daily -monitor blood sugars HST-mkqgvfkxbc-hj changes Chronic pain -well controlled with fentanyl [...]
--- OUTSIDE RECORDS SUMMARY | 2018-08-09 12:16 | XMS REPORT | CCD ---
Author Author Vonda Everett Organization Vonda Everett MD, [facility] Address [address] [place] [address] Phone Care Team Providers Care Canteen Manager Name Role Phone PP Unavailable CCM Unavailable Summary Purpose Interface Exchange Insurance Providers Payer name Policy type / Coverage type Covered alliance party ID Effective Begin Date Effective End Date WPS Medicare Part B Medicare Part B [id number] Unknown Unknown [facility] Life Insurance Medicare Part B [id number] Unknown Unknown Family history Father Diagnosis Age At Onset Arthritis Unknown Hypertension Unknown Mother Diagnosis Age At Onset Diabetes mellitus Type 2 Unknown Depression Unknown Arthritis Unknown Stroke Unknown Hypertension Unknown Sister Diagnosis Age At Onset Colon cancer Unknown Social History Social History Element Codes Description Effective Dates Marital status Unknown Maurice 01/07/2018 Living arrangements Unknown Longterm [facility] 04/15/2017 Number of children Unknown 3 06/17/2015 Employment Unknown Retired 06/17/[address]: 2197884 Quit over 10 years ago 15+ 06/17/[address]: 078050408 Never drinks alcohol 06/17/2015 Allergies, Adverse Reactions, [...] Instructions fentanyl 100 mcg/hr transdermal patch RxNorm: 231852 1 Patch TD Q72H 03/02/2018 03/31/2018 Active Duragesic 75 mcg/hr transdermal patch RxNorm: 181286 1 Patch TD Q72H 03/02/2018 03/31/2018 Active hydrocodone 10 mg-acetaminophen 325 mg tablet RxNorm: 985296 2 Tablet(s) PO scheduled TID 02/18/2018 No Stop Date Active Not to exceed 3gm/24hr acetaminophen hyoscyamine 0.125 mg disintegrating tablet RxNorm: 7822652 Tablet(s) 1-2 Tablet(s) PO Q8 as needed 02/08/2018 No Stop Date Active fentanyl 100 mcg/hr transdermal patch RxNorm: 790706 1 Patch TD Q72H 02/04/2018 03/01/2018 Inactive hydrocodone 10 mg-acetaminophen 325 mg tablet RxNorm: 015412 2 Tablet(s) PO scheduled TID 02/04/2018 02/17/2018 Inactive Not to exceed 3gm/24hr acetaminophen Duragesic 75 mcg/hr transdermal patch RxNorm: 354087 1 Patch TD Q72H 02/04/2018 03/01/2018 Inactive Levemir FlexTouch U-100 Insulin 100 unit/mL (3 mL) subcutaneous pen RxNorm: 161896 4 Unit(s) SQ QHS 01/07/2018 No Stop Date Active Duragesic 75 mcg/hr transdermal patch RxNorm: 935349 1 Patch TD Q72H 01/07/2018 02/03/2018 Inactive fentanyl 100 mcg/hr transdermal patch RxNorm: 159067 1 Patch TD Q72H 01/07/2018 02/03/2018 Inactive hydrocodone 10 mg-acetaminophen 325 mg tablet RxNorm: 339162 2 Tablet(s) PO scheduled TID 01/05/2018 02/03/2018 Inactive Not to exceed 3gm/24hr acetaminophen hydrocodone 10 mg-acetaminophen 325 mg tablet RxNorm: 086687 2 Tablet(s) PO scheduled TID and 1 tab q 4 as needed 01/04/2018 01/04/2018 Inactive Not to exceed 3gm/24hr acetaminophen cyanocobalamin (vit B-12) 1,000 mcg tablet RxNorm: 489924 1 Tablet(s) PO daily 12/28/2017 11/22/2018 Active baclofen 10 mg tablet RxNorm: 375812 Tablet(s) TAKE 1 TABLET THREE TIMES DAILY VIA STOMACH TUBE 12/27/2017 05/25/2018 Active 10/07/2017 5:36:15 PM 10/07/2017 5:36:13 PM N O T I C E Last quantity doesn't match original quantity Duragesic 75 mcg/hr transdermal patch RxNorm: 267104 1 Patch TD Q72H 12/22/2017 01/06/2018 Inactive fentanyl 100 mcg/hr transdermal patch RxNorm: 670622 1 Patch TD Q72H 12/22/2017 01/06/2018 Inactive hydrocodone 10 mg-acetaminophen 325 mg tablet RxNorm: 359226 2 Tablet(s) PO scheduled TID and 1 tab q 4 as needed 12/20/2017 01/03/2018 Inactive Not to exceed 3gm/24hr acetaminophen hyoscyamine 0.125 mg disintegrating tablet RxNorm: 1129516 1-2 Tablet(s) PO Q8 as needed 12/14/2017 02/07/2018 Inactive Duragesic 75 mcg/hr transdermal patch RxNorm: 967731 1 Patch TD Q72H 12/06/2017 12/21/2017 Inactive fentanyl 100 mcg/hr transdermal patch RxNorm: 824813 1 Patch TD Q72H 12/06/2017 12/21/2017 Inactive hydrocodone 10 mg-acetaminophen 325 mg tablet RxNorm: 370544 2 Tablet(s) PO scheduled TID and 1 tab q 4 as needed 11/29/2017 12/19/2017 Inactive Not to exceed 3gm/24hr acetaminophen Duragesic 75 mcg/hr transdermal patch RxNorm: 465717 1 Patch TD Q72H 11/11/2017 12/05/2017 Inactive hydrocodone 10 mg-acetaminophen 325 mg tablet RxNorm: 057223 2 Tablet(s) PO scheduled TID and 1 tab q 4 as needed 11/09/2017 11/28/2017 Inactive Not to exceed 3gm/24hr acetaminophen Levemir FlexTouch U-100 Insulin 100 unit/mL (3 mL) subcutaneous pen RxNorm: 114254 8 Unit(s) SQ QHS 11/09/2017 01/06/2018 Inactive fentanyl 100 mcg/hr transdermal patch RxNorm: 085045 1 Patch TD Q72H 2017 12/05/2017 Inactive hyoscyamine 0.125 mg disintegrating tablet RxNorm: 6281620 1-2 Tablet(s) PO Q8 as needed 11/03/2017 12/13/2017 Inactive carvedilol 3.125 mg tablet RxNorm: 793408 GIVE 1 TABLET VIA PEG TUBE 2 TIMES A DAY 10/22/2017 01/19/2018 Inactive Generic For:COREG 3.125MG 10/22/2017 9:23:30 AM hydrocodone 10 mg-acetaminophen 325 mg tablet RxNorm: 408342 2 Tablet(s) PO scheduled TID and 1 tab q 4 as needed 10/22/2017 2017 Inactive Not to exceed 3gm/24hr acetaminophen fentanyl 100 mcg/hr transdermal patch RxNorm: 311776 1 Patch TD Q72H 10/20/2017 11/07/2017 Inactive Duragesic 75 mcg/hr transdermal patch RxNorm: 142646 1 Patch TD Q72H 10/20/2017 11/10/2017 Inactive lorazepam 0.5 mg tablet RxNorm: 439099 1 Tablet(s) PO BID and 1 tab q 6 hours prn 10/18/2017 No Stop Date Active baclofen 10 mg tablet RxNorm: 783344 TAKE 1 TABLET THREE TIMES DAILY VIA STOMACH TUBE 10/07/2017 12/26/2017 Inactive 10/07/2017 5:36:15 PM 10/07/2017 5:36:13 PM N O T I C E Last quantity doesn't match original quantity cranberry extract 500 mg tablet RxNorm: 5049230 1 Tablet(s) PO QAM 10/04/2017 01/31/2018 Inactive Cipro 500 mg tablet RxNorm: 993816 1 Tablet(s) PO BID 10/04/2017 10/03/2017 Inactive dc keflex hydrocodone 10 mg-acetaminophen 325 mg tablet RxNorm: 392116 2 Tablet(s) PO scheduled TID as needed 10/04/2017 10/21/2017 Inactive Not to exceed 3gm/24hr acetaminophen cranberry extract 500 mg tablet RxNorm: 6057041 1 Tablet(s) PO QAM 10/04/2017 10/03/2017 Inactive Cipro 500 mg tablet RxNorm: 525944 1 Tablet(s) PO BID 10/04/2017 10/10/2017 Inactive dc keflex Duragesic 75 mcg/hr transdermal patch RxNorm: 656913 1 Patch TD Q72H 09/20/2017 10/19/2017 Inactive fentanyl 100 mcg/hr transdermal patch RxNorm: 282561 1 Patch TD Q72H 09/20/2017 10/19/2017 Inactive hyoscyamine 0.125 mg disintegrating tablet RxNorm: 0654804 1 Tablet(s) PO TID and 1 Tablet Q4H prn increased secretions 09/15/2017 11/02/2017 Inactive hydrocodone 10 mg-acetaminophen 325 mg tablet RxNorm: 268913 2 Tablet(s) PO scheduled TID and 1-2 Tabs Q4H PRN pain 09/15/2017 10/03/2017 Inactive Not to exceed 3gm/24hr acetaminophen lorazepam 0.5 mg tablet RxNorm: 521703 1 Tablet(s) PO BID 09/15/2017 10/17/2017 Inactive Lexapro 10 mg tablet RxNorm: 512002 1 Tablet(s) PO daily 09/10/2017 09/14/2017 Inactive lisinopril 10 mg tablet RxNorm: 957473 1 Tablet(s) PO daily 09/09/2017 06/05/2018 Active Levemir FlexTouch U-100 Insulin 100 unit/mL (3 mL) subcutaneous pen RxNorm: 210563 10 Unit(s) daily 09/09/2017 09/15/2017 Inactive Duragesic 75 mcg/hr transdermal patch RxNorm: 625939 1 Patch TD Q72H 09/09/2017 09/19/2017 Inactive nystatin 100,000 unit/gram topical cream RxNorm: 316342 1 Gram(s) TOP TID until healed to gaulding 09/06/2017 01/03/2018 Inactive nystatin 100,000 unit/gram topical cream RxNorm: 302997 1 Gram(s) TOP TID until healed to gaulding 09/06/2017 09/05/2017 Inactive hydrocodone 10 mg-acetaminophen 325 mg tablet RxNorm: 776029 2 Tablet(s) PO scheduled TID as needed 08/31/2017 09/14/2017 Inactive Not to exceed 3gm/24hr acetaminophen fentanyl 100 mcg/hr transdermal patch RxNorm: 960565 1 Patch TD Q72H 08/24/2017 09/19/2017 Inactive fentanyl 50 mcg/hr transdermal patch RxNorm: 604879 1 Patch TD Q72H 08/24/2017 09/08/2017 Inactive fentanyl 25 mcg/hr transdermal patch RxNorm: 110475 1 Patch TD Q72H 08/24/2017 08/24/2017 Inactive hyoscyamine 0.125 mg disintegrating tablet RxNorm: 1613745 Tablet(s) 1-2 Tablet(s) PO Q8 as needed 08/23/2017 09/14/2017 Inactive hydrocodone 10 mg-acetaminophen 325 mg tablet RxNorm: 468044 1 Tablet(s) PO scheduled TID et Q6 hours as needed 08/18/2017 08/30/2017 Inactive Not to exceed 3gm/24hr acetaminophen hydrochlorothiazide 25 mg tablet RxNorm: 427166 GIVE 1 TABLET VIA PEG TUBE ONCE DAILY 08/17/2017 02/12/2018 Inactive Generic For:HYDRODIURIL 25 MG TABLET 08/17/2017 9:01:54 AM08/11/2017 10:12:00 AM lorazepam 0.5 mg tablet RxNorm: 752769 1/2 Tablet(s) PO BID 08/03/2017 09/14/2017 Inactive fentanyl 100 mcg/hr transdermal patch RxNorm: 819465 1 Patch TD Q72H 07/26/2017 08/23/2017 Inactive fentanyl 25 mcg/hr transdermal patch RxNorm: 430017 1 Patch TD Q72H 07/26/2017 08/23/2017 Inactive hydrocodone 10 mg-acetaminophen 325 mg tablet RxNorm: 263201 1 Tablet(s) PO scheduled TID et Q6 hours as needed 07/16/2017 08/14/2017 Inactive Not to exceed 3gm/24hr acetaminophen hyoscyamine 0.125 mg disintegrating tablet RxNorm: 3294863 Tablet(s) 1-2 Tablet(s) PO Q8 as needed 07/13/2017 08/01/2017 Inactive baclofen 10 mg tablet RxNorm: 790828 TAKE 1 TABLET THREE TIMES DAILY VIA STOMACH TUBE 07/12/2017 10/06/2017 Inactive 07/12/2017 9:04:08 AM N O T I C E Last quantity doesn't match original quantity lorazepam 0.5 mg tablet RxNorm: 928889 1/2 Tablet(s) PO BID 07/02/2017 08/02/2017 Inactive fentanyl 100 mcg/hr transdermal patch RxNorm: 518146 1 Patch TD Q72H 06/28/2017 07/25/2017 Inactive fentanyl 25 mcg/hr transdermal patch RxNorm: 194174 1 Patch TD Q72H 06/28/2017 07/25/2017 Inactive hyoscyamine 0.125 mg disintegrating tablet RxNorm: 2768153 Tablet(s) 1-2 Tablet(s) PO Q8 as needed 06/03/2017 06/22/2017 Inactive fentanyl 25 mcg/hr transdermal patch RxNorm: 778553 1 Patch TD Q72H 05/26/2017 06/24/2017 Inactive Levemir FlexTouch U-100 Insulin 100 unit/mL (3 mL) subcutaneous pen RxNorm: 360354 20 Unit(s) SQ BID 05/26/2017 09/08/2017 Inactive fentanyl 100 mcg/hr transdermal patch RxNorm: 681848 1 Patch TD Q72H 05/26/2017 06/24/2017 Inactive hydrocodone 10 mg-acetaminophen 325 mg tablet RxNorm: 610388 1 Tablet(s) PO scheduled BID et Q6 hours as needed 05/12/2017 05/11/2017 Inactive hydrocodone 10 mg-acetaminophen 325 mg tablet RxNorm: 895005 1 Tablet(s) PO scheduled TID et Q6 hours as needed 05/12/2017 06/10/2017 Inactive Not to exceed 3gm/24hr acetaminophen docusate sodium 100 mg tablet RxNorm: 2566723 1 Tablet(s) PO BID as needed if no bowel movement 05/10/2017 05/09/2017 Inactive lisinopril 20 mg tablet RxNorm: 593804 1 Tablet(s) PO daily 05/10/2017 09/08/2017 Inactive docusate sodium 100 mg tablet RxNorm: 6738807 1 Tablet(s) PO BID as needed if no bowel movement 05/10/2017 09/14/2017 Inactive fentanyl 25 mcg/hr transdermal patch RxNorm: 982303 1 Patch TD Q72H 05/03/2017 05/25/2017 Inactive lorazepam 0.5 mg tablet RxNorm: 403926 1/2 Tablet(s) PO BID 05/03/2017 07/01/2017 Inactive fentanyl 100 mcg/hr transdermal patch RxNorm: 705543 1 Patch TD Q72H 04/27/2017 05/25/2017 Inactive carvedilol 3.125 mg tablet RxNorm: 680349 Tablet(s) GIVE 1 TABLET VIA PEG TUBE DAILY 04/15/2017 10/21/2017 Inactive Levemir FlexTouch 100 unit/mL (3 mL) subcutaneous insulin pen RxNorm: 448391 10 Unit(s) SQ BID 04/15/2017 2017 Inactive hyoscyamine 0.125 mg disintegrating tablet RxNorm: 2542612 1-2 Tablet(s) PO Q8 as needed 04/14/2017 05/03/2017 Inactive hydrocodone 10 mg-acetaminophen 325 mg tablet RxNorm: 058094 1 Tablet(s) PO scheduled BID et Q6 hours as needed 04/13/2017 05/02/2017 Inactive baclofen 10 mg tablet RxNorm: 485422 TAKE 1 TABLET THREE TIMES DAILY VIA STOMACH TUBE 04/08/2017 05/22/2017 Inactive 04/08/2017 9:32:07 AM fentanyl 25 mcg/hr transdermal patch RxNorm: 485215 1 Patch TD Q72H 04/05/2017 05/02/2017 Inactive lidocaine 10 mg/mL (1 %) injection solution RxNorm: 1288161 1 Milliliter(s) Inj daily Mix with rocephin 03/31/2017 03/30/2017 Inactive Pt resides at [facility] lidocaine 10 mg/mL (1 %) injection solution RxNorm: 8228948 1 Milliliter(s) Inj daily Mix with rocephin 03/31/2017 04/06/2017 Inactive Pt resides at [facility] fentanyl 100 mcg/hr transdermal patch RxNorm: 749520 1 Patch TD Q72H 03/29/2017 04/26/2017 Inactive nystatin 100,000 unit/gram topical powder RxNorm: 289011 APPLY UNDER BREASTS TWICE DAILY FOR YEAST SKIN INFECTION AND APPLY TO UNDERARM AND ABDOMINAL FOLDS AND PERIAREA TWICE DAILY 03/29/2017 03/28/2017 Inactive 03/27/2017 9:12:50 AM nystatin 100,000 unit/gram topical powder RxNorm: 723355 APPLY UNDER BREASTS TWICE DAILY FOR YEAST SKIN INFECTION AND APPLY TO UNDERARM AND ABDOMINAL FOLDS AND PERIAREA TWICE DAILY 03/29/2017 09/14/2017 Inactive 03/29/2017 9:42:55 AM03/27/2017 9:12:50 AM hyoscyamine 0.125 mg disintegrating tablet RxNorm: 9993275 1-2 Tablet(s) PO Q8 as needed 03/08/2017 03/27/2017 Inactive fentanyl 25 mcg/hr transdermal patch RxNorm: 254220 1 Patch TD Q72H 03/02/2017 03/31/2017 Inactive hydrocodone 10 mg-acetaminophen 325 mg tablet RxNorm: 869928 1 Tablet(s) PO scheduled BID et Q6 hours as needed 02/17/2017 03/18/2017 Inactive fentanyl 100 mcg/hr transdermal patch RxNorm: 013915 1 Patch TD Q72H 02/17/2017 03/18/2017 Inactive Lexapro 10 mg tablet RxNorm: 600290 1 Tablet(s) PO daily 02/05/2017 04/14/2017 Inactive Lexapro 10 mg tablet RxNorm: 021646 1 Tablet(s) PO daily 02/05/2017 02/04/2017 Inactive fentanyl 25 mcg/hr transdermal patch RxNorm: 002919 1 Patch TD Q72H 02/04/2017 03/01/2017 Inactive cyanocobalamin (vit B-12) 1,000 mcg tablet RxNorm: 093754 1 Tablet(s) PO daily 01/18/2017 12/13/2017 Inactive hyoscyamine 0.125 mg disintegrating tablet RxNorm: 8851086 Tablet(s) 1-2 Tablet(s) PO Q8 as needed 01/18/2017 02/06/2017 Inactive baclofen 10 mg tablet RxNorm: 472559 TAKE 1 TABLET THREE TIMES DAILY VIA STOMACH TUBE 01/04/2017 02/17/2017 Inactive 01/04/2017 9:25:18 AM fentanyl 100 mcg/hr transdermal patch RxNorm: 161290 1 Patch TD Q72H 12/25/2016 01/23/2017 Inactive hydrochlorothiazide 25 mg tablet RxNorm: 047347 Tablet(s) GIVE 1 TABLET VIA PEG TUBE ONCE A DAY 12/14/2016 07/11/2017 Inactive fentanyl 100 mcg/hr transdermal patch RxNorm: 718691 1 Patch TD Q72H 11/25/2016 12/24/2016 Inactive hyoscyamine 0.125 mg disintegrating tablet RxNorm: 7402814 Tablet(s) 1-2 Tablet(s) PO Q8 as needed 11/25/2016 12/14/2016 Inactive nystatin 100,000 unit/gram topical powder RxNorm: 082681 APPLY UNDER BREASTS TWICE DAILY FOR YEAST SKIN INFECTION AND APPLY TO UNDERARM AND ABDOMINAL FOLDS AND PERIAREA TWICE DAILY 11/24/2016 01/22/2017 Inactive 11/24/2016 9:34:02 AM hydrocodone 10 mg-acetaminophen 325 mg tablet RxNorm: 511525 1 Tablet(s) PO scheduled BID et Q6 hours as needed 11/02/2016 12/01/2016 Inactive cyanocobalamin (vit B-12) 1,000 mcg tablet RxNorm: 048859 1 Tablet(s) PO daily 11/02/2016 01/17/2017 Inactive hyoscyamine 0.125 mg disintegrating tablet RxNorm: 0850001 1-2 Tablet(s) PO Q8 as needed 10/19/2016 11/24/2016 Inactive fentanyl 100 mcg/hr transdermal patch RxNorm: 106360 1 Patch TD Q72H 10/13/2016 11/11/2016 Inactive hydrocodone 10 mg-acetaminophen 325 mg tablet RxNorm: 911247 1 Tablet(s) PO scheduled BID et Q6 hours as needed 10/05/2016 11/01/2016 Inactive baclofen 10 mg tablet RxNorm: 962030 TAKE 1 TABLET THREE TIMES DAILY VIA STOMACH TUBE 10/01/2016 11/14/2016 Inactive 10/01/2016 9:24:37 AM carvedilol 3.125 mg tablet RxNorm: 557084 GIVE 1 TABLET VIA PEG TUBE 2 TIMES A DAY 09/30/2016 12/28/2016 Inactive Generic For:COREG 3.125MG 09/30/2016 1:12:28 PM09/25/2016 9:06:11 AM Probiotic Blend 2 million cell-50 mg capsule RxNorm: 1 Capsule(s) PO BID 09/17/2016 09/23/2016 Inactive Keflex 500 mg capsule RxNorm: 498637 1 Capsule(s) PO TID 09/17/2016 09/23/2016 Inactive hyoscyamine 0.125 mg/5 mL oral elixir RxNorm: 7731063 5 Milliliter(s) PO TID 09/08/2016 09/17/2016 Inactive hyoscyamine 0.125 mg/5 mL oral elixir RxNorm: 0294515 5 Milliliter(s) PO TID 09/08/2016 09/07/2016 Inactive hyoscyamine 0.125 mg disintegrating tablet RxNorm: 1600038 1-2 Tablet(s) PO Q8 as needed 09/07/2016 10/18/2016 Inactive fentanyl 100 mcg/hr transdermal patch RxNorm: 050357 1 Patch TD Q72H 09/01/2016 09/30/2016 Inactive ranitidine 150 mg tablet RxNorm: 970274 1 Tablet(s) PO BID 08/25/2016 No Stop Date Active hydrocodone 10 mg-acetaminophen 325 mg tablet RxNorm: 921769 1 Tablet(s) PO scheduled BID et Q6 hours as needed 08/24/2016 09/22/2016 Inactive cyanocobalamin (vit B-12) 1,000 mcg tablet RxNorm: 269762 1 Tablet(s) PO daily 08/12/2016 11/01/2016 Inactive cyanocobalamin (vit B-12) 1,000 mcg tablet RxNorm: 391551 1 Tablet(s) PO daily 08/12/2016 08/11/2016 Inactive hydrocodone 10 mg-acetaminophen 325 mg tablet RxNorm: 611439 1-2 Tablet(s) PO Q6 as needed 08/03/2016 08/17/2016 Inactive fentanyl 100 mcg/hr transdermal patch RxNorm: 278571 1 Patch TD Q72H 08/03/2016 08/31/2016 Inactive nystatin 100,000 unit/gram topical powder RxNorm: 167196 APPLY UNDER BREASTS TWICE DAILY FOR YEAST SKIN INFECTION AND APPLY TO UNDERARM AND ABDOMINAL FOLDS AND PERIAREA TWICE DAILY 07/17/2016 09/14/2016 Inactive 07/17/2016 3:56:54 PM fentanyl 100 mcg/hr transdermal patch RxNorm: 800716 1 Patch TD Q72H 07/15/2016 08/02/2016 Inactive lisinopril 20 mg tablet RxNorm: 698889 1 Tablet(s) PO daily 07/02/2016 03/28/2017 Inactive hydrocodone 10 mg-acetaminophen 325 mg tablet RxNorm: 783271 1-2 Tablet(s) PO Q6 as needed 07/01/2016 07/15/2016 Inactive Xarelto 20 mg tablet RxNorm: 9791240 Tablet(s) TAKE 1 TABLET VIA PEG TUBE AT BEDTIME 06/19/2016 04/14/2017 Inactive fentanyl 100 mcg/hr transdermal patch RxNorm: 016006 1 Patch TD Q72H 06/17/2016 07/14/2016 Inactive nystatin 100,000 unit/gram topical powder RxNorm: 282911 APPLY TO UNDER BREASTS TWICE DAILY FOR YEAST SKIN INFECTION AND APPLY TO UNDERARM AND ABDOMINAL FOLDS AND PERIAREA TWICE DAILY 06/15/2016 07/16/2016 Inactive Generic For:MYCOSTATIN 100,000 UNITS/GM PW 06/15/2016 12:28:26 PM fentanyl 100 mcg/hr transdermal patch RxNorm: 861972 1 Patch TD Q72H 06/05/2016 06/16/2016 Inactive hydrocodone 10 mg-acetaminophen 325 mg tablet RxNorm: 071502 1-2 Tablet(s) PO Q6 as needed 06/02/2016 06/16/2016 Inactive Probiotic Blend 2 million cell-50 mg capsule RxNorm: 1 Capsule(s) PO BID 05/13/2016 05/19/2016 Inactive nitrofurantoin 100 mg capsule RxNorm: 668851 1 Capsule(s) PO BID 05/13/2016 05/19/2016 Inactive nitrofurantoin 100 mg capsule RxNorm: 225678 1 Capsule(s) PO BID 05/13/2016 05/12/2016 Inactive fentanyl 75 mcg/hr transdermal patch RxNorm: 067459 1 Patch TD Q72H 05/13/2016 06/04/2016 Inactive Keflex 500 mg capsule RxNorm: 460757 1 Capsule(s) PO TID 05/07/2016 05/13/2016 Inactive Patient at [facility] Keflex 500 mg capsule RxNorm: 317443 1 Capsule(s) PO TID 05/07/2016 05/06/2016 Inactive hydrocodone 10 mg-acetaminophen 325 mg tablet RxNorm: 445300 1-2 Tablet(s) PO Q6 as needed 05/04/2016 06/01/2016 Inactive hydrochlorothiazide 25 mg tablet RxNorm: 894644 Tablet(s) GIVE 1 TABLET VIA PEG TUBE ONCE A DAY 04/29/2016 11/24/2016 Inactive hydrochlorothiazide 25 mg tablet RxNorm: 133214 GIVE 1 TABLET VIA PEG TUBE ONCE A DAY 04/22/2016 04/28/2016 Inactive Generic For:HYDRODIURIL 25 MG TABLET refill request fentanyl 75 mcg/hr transdermal patch RxNorm: 305308 1 Patch TD Q72H 04/17/2016 05/12/2016 Inactive Xarelto 20 mg tablet RxNorm: 7914339 TAKE 1 TABLET VIA PEG TUBE AT BEDTIME 04/16/2016 06/14/2016 Inactive 04/16/2016 9:08:52 AM citalopram 40 mg tablet RxNorm: 797604 1 Tablet(s) PO daily 04/02/2016 02/25/2017 Inactive citalopram 40 mg tablet RxNorm: 146974 1 Tablet(s) PO daily 03/27/2016 04/01/2016 Inactive hydrocodone 10 mg-acetaminophen 325 mg tablet RxNorm: 885595 1-2 Tablet(s) PO Q6 as needed 03/27/2016 04/25/2016 Inactive fentanyl 75 mcg/hr transdermal patch RxNorm: 404033 1 Patch TD Q72H 03/18/2016 04/16/2016 Inactive hydrocodone 10 mg-acetaminophen 325 mg tablet RxNorm: 250229 1-2 Tablet(s) PO Q6 as needed 03/11/2016 03/26/2016 Inactive citalopram 40 mg tablet RxNorm: 341918 1 Tablet(s) PO daily 03/04/2016 03/26/2016 Inactive Levemir FlexTouch U-100 Insulin 100 unit/mL (3 mL) subcutaneous pen RxNorm: 766844 20 Unit(s) SQ BID 03/02/2016 09/27/2016 Inactive lisinopril 20 mg tablet RxNorm: 154254 1 Tablet(s) PO daily 02/25/2016 07/01/2016 Inactive Ativan 0.5 mg tablet RxNorm: 746778 1 Tablet(s) PO Q4H as needed 02/18/2016 04/14/2017 Inactive Xarelto 20 mg tablet RxNorm: 7673626 TAKE 1 TABLET VIA PEG TUBE AT BEDTIME 02/12/2016 04/11/2016 Inactive 02/12/2016 9:08:22 AM hydrocodone 10 mg-acetaminophen 325 mg tablet RxNorm: 382786 1-2 Tablet(s) PO Q6 as needed 02/12/2016 03/10/2016 Inactive fentanyl 75 mcg/hr transdermal patch RxNorm: 108700 1 Patch TD Q72H 02/11/2016 03/11/2016 Inactive citalopram 20 mg tablet RxNorm: 901378 1 Tablet(s) PO daily 01/28/2016 03/03/2016 Inactive fentanyl 75 mcg/hr transdermal patch RxNorm: 476113 1 TD Q72H 01/17/2016 02/10/2016 Inactive hydrocodone 10 mg-acetaminophen 325 mg tablet RxNorm: 383343 1-2 Tablet(s) PO Q6 as needed 01/07/2016 02/05/2016 Inactive fentanyl 50 mcg/hr transdermal patch RxNorm: 870202 1 TD Q72H 01/01/2016 01/16/2016 Inactive fentanyl 50 mcg/hr transdermal patch RxNorm: 066373 1 TD q 3 days 12/26/2015 12/31/2015 Inactive Xarelto 20 mg tablet RxNorm: 6394027 TAKE 1 TABLET VIA PEG TUBE AT BEDTIME 12/17/2015 02/11/2016 Inactive 12/16/2015 3:27:57 PM12/14/2015 9:45:17 AM hydrocodone 10 mg-acetaminophen 325 mg tablet RxNorm: 514298 1-2 Tablet(s) PO Q6 as needed 12/06/2015 01/04/2016 Inactive fentanyl 50 mcg/hr transdermal patch RxNorm: 481941 1 TD q 3 days 12/06/2015 12/25/2015 Inactive fentanyl 25 mcg/hr transdermal patch RxNorm: 232435 1 TD q 3 days 11/18/2015 12/05/2015 Inactive Zithromax Z-Eliu 250 mg tablet RxNorm: 241170 1 Tablet(s) PO UD 10/09/2015 02/26/2016 Inactive z pack as directed- please write out instructions- pt at [facility] nystatin 100,000 unit/gram topical powder RxNorm: 189512 APPLY TO UNDER BREASTS TWICE DAILY FOR YEAST SKIN INFECTION AND APPLY TO UNDERARM AND ABDOMINAL FOLDS AND PERIAREA TWICE DAILY 10/07/2015 12/05/2015 Inactive Generic For:MYCOSTATIN 100,000 UNITS/GM PW 10/05/2015 12:07:35 PM fentanyl 25 mcg/hr transdermal patch RxNorm: 088971 1 TD q 3 days 10/03/2015 11/01/2015 Inactive fentanyl 25 mcg/hr transdermal patch RxNorm: 251706 1 TD q 3 days 09/27/2015 10/02/2015 Inactive fentanyl 25 mcg/hr transdermal patch RxNorm: 825379 1 TD q 3 days 09/17/2015 09/26/2015 Inactive fentanyl 25 mcg/hr transdermal patch RxNorm: 722828 1 TD q 3 days 08/30/2015 09/16/2015 Inactive hydrocodone 5 mg-acetaminophen 325 mg tablet RxNorm: 312657 1 Tablet(s) PO Q6 as needed 08/30/2015 09/28/2015 Inactive Diflucan 100 mg tablet RxNorm: 634762 1 Tablet(s) Miscellaneous per peg daily 07/29/2015 08/04/2015 Inactive fentanyl 25 mcg/hr transdermal patch RxNorm: 577977 1 TD q 3 days 07/18/2015 08/29/2015 Inactive hydrocodone 5 mg-acetaminophen 325 mg tablet RxNorm: 720996 1 Tablet(s) PO Q6 as needed 07/18/2015 08/29/2015 Inactive Diflucan 100 mg tablet RxNorm: 841707 1 Tablet(s) Miscellaneous per peg daily 06/17/2015 06/23/2015 Inactive Senna-S 8.6 mg-50 mg tablet RxNorm: 427384 1 Tablet(s) PO daily as needed constipation No Start Date Active Dulcolax (bisacodyl) 10 mg rectal suppository RxNorm: 381171 1 Suppository RTL daily as needed constipation No Start Date Active albuterol sulfate concentrate 5 mg/mL(0.5 %) solution for nebulization RxNorm: 379100 1 Vial INH daily as needed congestion No Start Date Active polyethylene glycol 3350 17 gram/dose oral powder RxNorm: 539745 17 Gram(s) PO daily as needed constipation No Start Date Active baclofen 10 mg tablet RxNorm: 178448 1 Tablet(s) PO TID No Start Date 09/30/2016 Inactive Ativan 0.5 mg tablet RxNorm: 592022 1 Tablet(s) PO Q4H as needed No Start Date 02/17/2016 Inactive ranitidine 150 mg tablet RxNorm: 668148 1 Tablet(s) PO daily No Start Date 08/24/2016 Inactive carvedilol 3.125 mg tablet RxNorm: 523837 1 Tablet(s) PO daily No Start Date 09/29/2016 Inactive citalopram 40 mg tablet RxNorm: 554876 1 Tablet(s) PO daily No Start Date 01/27/2016 Inactive Probiotic Blend oral RxNorm: oral No Start Date 05/12/2016 Inactive hydrochlorothiazide 25 mg tablet RxNorm: 242674 1 Tablet(s) PO daily No Start Date 04/21/2016 Inactive Levemir FlexTouch 100 unit/mL (3 mL) subcutaneous insulin pen RxNorm: 119280 10 Unit(s) SQ BID No Start Date 03/01/2016 Inactive Zithromax Z-Eliu 250 mg tablet RxNorm: 890527 1 Tablet(s) PO UD No Start Date 10/08/2015 Inactive z pack as directed- please write out instructions- pt at [facility] nystatin 100,000 unit/gram topical powder RxNorm: 986654 Gram(s) TOP BID as needed No Start Date 10/06/2015 Inactive pravastatin 40 mg tablet RxNorm: 329216 Tablet(s) PO daily No Start Date 04/14/2017 Inactive lorazepam 0.5 mg tablet RxNorm: 392774 1/2 Tablet(s) PO BID No Start Date 05/02/2017 Inactive Xarelto 20 mg tablet RxNorm: 2512823 1 Tablet(s) PO daily No Start Date 12/16/2015 Inactive fentanyl 25 mcg/hr transdermal patch RxNorm: 336457 1 TD q 3 days No Start Date 07/17/2015 Inactive lisinopril 20 mg tablet RxNorm: 909316 1 Tablet(s) PO daily No Start Date 02/24/2016 Inactive hydrocodone 5 mg-acetaminophen 325 mg tablet RxNorm: 087356 1 Tablet(s) PO Q6 as needed No Start Date 07/17/2015 Inactive citalopram 40 mg tablet RxNorm: 799563 1 Tablet(s) PO daily No Start Date 03/03/2016 Inactive hyoscyamine 0.125 mg disintegrating tablet RxNorm: 0901086 1-2 Tablet(s) PO Q8 as needed No [...] 10.3 g/dl 02/14/2018 Cbc With Differential Ord2 Neut% 53.6 % 02/14/2018 Cbc With Differential Ord2 HCT 35.6 % 02/14/2018 Cbc With Differential Ord2 Lymph% 33.5 % 02/14/2018 Cbc With Differential Ord2 MCV 106.0 fl 02/14/2018 Cbc With Differential Ord2 MCH 30.7 pg 02/14/2018 Cbc With Differential Ord2 [place]% 7.4 % 02/14/2018 Cbc With Differential Ord2 MCHC 28.9 pg 02/14/2018 Cbc With Differential Ord2 Eos% 5.3 % 02/14/2018 Cbc With Differential Ord2 Baso% 0.2 % 02/14/2018 Cbc With Differential Ord2 PLT 123 K/ul 02/14/2018 Cbc With Differential Ord2 Neut ABS# 3.43 K/ul 02/14/2018 Cbc With Differential Ord2 RDW 12.1 % 02/14/2018 Cbc With Differential Ord2 Lymph ABS# 2.14 K/ul 02/14/2018 Cbc With Differential Ord2 [place] ABS# 0.5 K/ul 02/14/2018 Cbc With Differential Ord2 Eos ABS# 0.3 K/ul 02/14/2018 Cbc With Differential Ord2 Baso ABS# 0.0 K/ul 02/14/2018 Comp Metabolic Wew490 NA 142 mEq/L 02/14/2018 Comp Metabolic Clu210 K 4.5 mEq/L 02/14/2018 Comp Metabolic Uci336 CL 97 mEq/L 02/14/2018 Comp Metabolic Fxj118 CO2 41.0 mEq/L 02/14/2018 Comp Metabolic Erb348 ANION GAP 9 02/14/2018 Comp Metabolic Fqb085 GLUCOSE 111 mg/dL 02/14/2018 Comp Metabolic Dak173 Creat 0.6 mg/dL 02/14/2018 Comp Metabolic Iyr339 eGFR 108 ml/min/1.73m2 02/14/2018 Comp Metabolic Szx052 BUN 32 mg/dL 02/14/2018 Comp Metabolic Ghw390 B/C Ratio 54.2 Ratio 02/14/2018 Comp Metabolic Wmb411 CALCIUM 8.9 mg/dL 02/14/2018 Comp Metabolic Kmc117 ALK PHOS 81 U/L 02/14/2018 Comp Metabolic Xxr957 AST(SGOT) 14 U/L 02/14/2018 Comp Metabolic Abg089 ALT(SGPT) 11 U/L 02/14/2018 Comp Metabolic Fcc730 BILI T 0.3 mg/dL 02/14/2018 Comp Metabolic Ncb541 ALBUMIN 3.4 g/dL 02/14/2018 Comp Metabolic Fov817 TPRO 6.3 g/dL 02/14/2018 Comp Metabolic Ibs861 GLOB 2.9 g/dL 02/14/2018 Comp Metabolic Bdr767 A/G Ratio 1.2 Ratio 02/14/2018 Comp Metabolic Gxg321 Osmo 291 mOsmo 02/14/2018 %Hba1C Ucv958 % HbA1c 56368- 6 5.5 % 02/14/2018 %Hba1C Asc410 Gluc Ave 111 mg/dL 02/14/2018 Prealbumin 353251 PREALBUMIN 27 mg/dL 11/24/2017 %Hba1C Ard086 % HbA1c 39393- 6 5.5 % 11/04/2017 %Hba1C Cac541 Gluc Ave 111 mg/dL 11/04/2017 Culture Urine [id number] URINE CULTURE SEE NOTES 10/04/2017 Culture Urine [id number] Continued Results 10/04/2017 Urine Culture Ucult Complete [...] Ord28 U-Com Culture to follow 10/01/2017 B12 Tkc866 B12 >1500.00 pg/ml 02/19/2017 Cbc With Differential [...] 31.5 pg 02/02/2017 Cbc With Differential Ord2 [place]% 8.3 % 02/02/2017 Cbc With Differential Ord2 [...] 2.28 K/ul 02/02/2017 Cbc With Differential Ord2 [place] ABS# 0.6 K/ul 02/02/2017 Cbc With Differential Ord2 Eos ABS# 0.4 K/ul 02/02/2017 Cbc With Differential Ord2 Baso ABS# 0.0 K/ul 02/02/2017 %Hba1C Xqy871 % HbA1c 81573- 6 5.2 % 02/02/2017 %Hba1C Zzz738 Gluc Ave 103 mg/dL 02/02/2017 Comp Metabolic Njm553 NA 138 mEq/L 02/02/2017 Comp Metabolic Lsx574 K 4.5 mEq/L 02/02/2017 Comp Metabolic Zti846 CL 98 mEq/L 02/02/2017 Comp Metabolic Zob676 CO2 37.0 mEq/L 02/02/2017 Comp Metabolic Cnw700 ANION GAP 8 02/02/2017 Comp Metabolic Zau536 GLUCOSE 94 mg/dL 02/02/2017 Comp Metabolic Qzj666 Creat 0.7 mg/dL 02/02/2017 Comp Metabolic Svc972 eGFR 88 ml/min/1.73m2 02/02/2017 Comp Metabolic Kaa920 BUN 36 mg/dL 02/02/2017 Comp Metabolic Wfk733 B/C Ratio 50.7 Ratio 02/02/2017 Comp Metabolic Ptk039 CALCIUM 9.0 mg/dL 02/02/2017 Comp Metabolic Xuu165 ALK PHOS 78 U/L 02/02/2017 Comp Metabolic Rca733 AST(SGOT) 22 U/L 02/02/2017 Comp Metabolic Uqp270 ALT(SGPT) 28 U/L 02/02/2017 Comp Metabolic Bnx693 BILI T 0.3 mg/dL 02/02/2017 Comp Metabolic Qnl384 ALBUMIN 3.3 g/dL 02/02/2017 Comp Metabolic Uum961 TPRO 5.9 g/dL 02/02/2017 Comp Metabolic Nca254 GLOB 2.6 g/dL 02/02/2017 Comp Metabolic Mdy382 A/G Ratio 1.3 Ratio 02/02/2017 Comp Metabolic Sez563 Osmo 284 mOsmo 02/02/2017 %Hba1C Ogt822 % HbA1c 32294- 6 5.0 % 10/29/2016 %Hba1C Qij198 Gluc Ave 97 mg/dL 10/29/2016 Culture Urine [id number] URINE CULTURE SEE NOTES 09/21/2016 Culture Urine [id number] Continued Results 09/21/2016 Urine Culture Ucult Complete [...] 32.4 pg 07/30/2016 Cbc With Differential Ord2 [place]% 7.2 % 07/30/2016 Cbc With Differential Ord2 [...] 2.69 K/ul 07/30/2016 Cbc With Differential Ord2 [place] ABS# 0.5 K/ul 07/30/2016 Cbc With Differential Ord2 Eos ABS# 0.5 K/ul 07/30/2016 Cbc With Differential Ord2 Baso ABS# 0.0 K/ul 07/30/2016 Comp Metabolic Ssa793 NA 141 mEq/L 07/30/2016 Comp Metabolic Yyj713 K 4.3 mEq/L 07/30/2016 Comp Metabolic Nds037 CL 100 mEq/L 07/30/2016 Comp Metabolic Nmt748 CO2 33.0 mEq/L 07/30/2016 Comp Metabolic Num881 ANION GAP 12 07/30/2016 Comp Metabolic Ozb714 GLUCOSE 64 mg/dL 07/30/2016 Comp Metabolic Kqn107 Creat 0.5 mg/dL 07/30/2016 Comp Metabolic Fvy891 eGFR 126 ml/min/1.73m2 07/30/2016 Comp Metabolic Eol004 BUN 25 mg/dL 07/30/2016 Comp Metabolic Bvw988 B/C Ratio 48.1 Ratio 07/30/2016 Comp Metabolic Esw719 CALCIUM 8.9 mg/dL 07/30/2016 Comp Metabolic Qht935 ALK PHOS 90 U/L 07/30/2016 Comp Metabolic Fdd796 AST(SGOT) 22 U/L 07/30/2016 Comp Metabolic Orz278 ALT(SGPT) 36 U/L 07/30/2016 Comp Metabolic Knk637 BILI T 0.3 mg/dL 07/30/2016 Comp Metabolic Myh738 ALBUMIN 3.4 g/dL 07/30/2016 Comp Metabolic Ibb151 TPRO 6.0 g/dL 07/30/2016 Comp Metabolic Pgr560 GLOB 2.7 g/dL 07/30/2016 Comp Metabolic Ndj470 A/G Ratio 1.3 Ratio 07/30/2016 Comp Metabolic Bgo003 Osmo 284 mOsmo 07/30/2016 A1C Frequency Oiz755 A1CF 65733-9 Last A1C performed [place] [facility] [place] [facility] [place]: 05-12-2016 07/30/2016 %Hba1C Nnm020 % HbA1c 70500- 6 5.2 % 05/12/2016 %Hba1C Gtx733 Gluc Ave 103 mg/dL 05/12/2016 Culture Urine [id number] URINE CULTURE SEE NOTES 05/11/2016 Urine Culture [...] U-Com Culture to follow 05/06/2016 Culture Urine [id number] URINE CULTURE SEE NOTES 03/17/2016 Culture Urine [id number] Continued Results 03/17/2016 Urine Culture Ucult Complete [...] 32.0 pg 02/11/2016 Cbc With Differential Ord2 [place]% 9.1 % 02/11/2016 Cbc With Differential Ord2 [...] 2.59 K/ul 02/11/2016 Cbc With Differential Ord2 [place] ABS# 0.6 K/ul 02/11/2016 Cbc With Differential Ord2 Eos ABS# 0.3 K/ul 02/11/2016 Cbc With Differential Ord2 Baso ABS# 0.0 K/ul 02/11/2016 Comp Metabolic Qeu059 NA 137 mEq/L 02/11/2016 Comp Metabolic Uus618 K 4.4 mEq/L 02/11/2016 Comp Metabolic Rad343 CL 100 mEq/L 02/11/2016 Comp Metabolic Guw635 CO2 25.0 mEq/L 02/11/2016 Comp Metabolic Kho830 ANION GAP 16 02/11/2016 Comp Metabolic Zxp552 GLUCOSE 99 mg/dL 02/11/2016 Comp Metabolic Bxf604 Creat 0.6 mg/dL 02/11/2016 Comp Metabolic Pky834 eGFR 99 ml/min/1.73m2 02/11/2016 Comp Metabolic Gfk015 BUN 27 mg/dL 02/11/2016 Comp Metabolic Dfb838 B/C Ratio 42.2 Ratio 02/11/2016 Comp Metabolic Zzw607 CALCIUM 9.2 mg/dL 02/11/2016 Comp Metabolic Fvs292 ALK PHOS 74 U/L 02/11/2016 Comp Metabolic Mqb191 AST(SGOT) 24 U/L 02/11/2016 Comp Metabolic Wll734 ALT(SGPT) 26 U/L 02/11/2016 Comp Metabolic Nsc283 BILI T 0.5 mg/dL 02/11/2016 Comp Metabolic Uxm717 ALBUMIN 3.5 g/dL 02/11/2016 Comp Metabolic Vmp261 TPRO 6.2 g/dL 02/11/2016 Comp Metabolic Ogn439 GLOB 2.7 g/dL 02/11/2016 Comp Metabolic Iys673 A/G Ratio 1.3 Ratio 02/11/2016 Comp Metabolic Dbw240 Osmo 279 mOsmo 02/11/2016 Review of Systems [...] 1: 128/86 Code: 8480-6 BMI: 31.4 Code: 69236-1 Heart Rate 1: 72 bpm Height: 5'1" Weight: 166 lbs 06/17/2015 Blood Pressure 1: 110/78 Code: 8480-6 BMI: 33.3 Code: 87120-1 Heart Rate 1: 74 bpm Height: 5'1" [...] Present Encounters Encounter Performer Location Codes Date ([id number]) [id number] EST. PATIENT, LEVEL IV Diagnosis: Type 2 diabetes mellitus without complications[ICD10: E11.9] Diagnosis: Essential (primary) hypertension[ICD10: I10] Diagnosis: Chronic pain syndrome[ICD10: G89.4] Carlyn Everett MD, [facility] CPT-4: 38576 01/07/2018 ([id number]) 97148 EST. PATIENT, LEVEL IV Diagnosis: Essential (primary) hypertension[ICD10: I10] Diagnosis: Type 2 diabetes mellitus without complications[ICD10: E11.9] Carlyn Everett MD, [facility] CPT-4: 73188 2017 ([id number]) 75682 EST. PATIENT, LEVEL IV Diagnosis: Type 2 diabetes mellitus with hyperglycemia[ICD10: E11.65] Diagnosis: Essential (primary) hypertension[ICD10: I10] Diagnosis: Pain in left shoulder[ICD10: M25.512] Diagnosis: Pain in right shoulder[ICD10: M25.511] Diagnosis: Pain in left knee[ICD10: M25.562] Diagnosis: Pain in right knee[ICD10: M25.561] Vonda Everett MD, [facility] CPT- 4: 21897 09/09/2017 66491 EST. PATIENT, LEVEL IV Diagnosis: Essential (primary) hypertension[ICD10: I10] Diagnosis: Type 2 diabetes mellitus with hyperglycemia[ICD10: E11.65] Diagnosis: Low back pain[ICD10: M54.5] Sunitha Everett MD, [facility] CPT-4: 12455 06/08/2017 ([id number]) 78471 EST. PATIENT, LEVEL IV Diagnosis: Essential (primary) hypertension[ICD10: I10] Diagnosis: Type 2 diabetes mellitus with hyperglycemia[ICD10: E11.65] Diagnosis: Low back pain[ICD10: M54.5] Sunitha Everett MD, [facility] CPT-4: 45139 04/15/2017 ([id number]) 64097 EST. PATIENT, LEVEL IV Diagnosis: Essential (primary) hypertension[ICD10: I10] Diagnosis: Type 2 diabetes mellitus with hyperglycemia[ICD10: E11.65] Diagnosis: Low back pain[ICD10: M54.5] Vonda Everett MD, [facility] CPT-4: 18956 02/16/2017 96050 EST. 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] Diagnosis: Ataxia following cerebral infarction[ICD10: I69.393] Diagnosis: 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] Diagnosis: Dysphagia following cerebral infarction[ICD10: I69.391] 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] Diagnosis: Candidal esophagitis[ICD10: B37.81] [facility] CPT- 4: 22793 06/17/2015 Plan of Care Planned Activity Notes Codes Status Date Appointment: Carlyn Higginbotham WPtel: [address] [place] [address] (15 min) Moderate 02/08/2018 Visit Plan: DM -decrease levemir to 4 units daily -monitor blood sugars IOE-rfwqhzszvc-ye changes Chronic pain -well controlled with fentanyl patch -no changes at this time 01/07/2018 Appointment: Carlyn Higginbotham WPtel: [address] [place], [place] [phone] (15 min) Moderate 01/07/2018 Patient Education: Patient [...] AT HS 2017 Appointment: Carlyn Higginbotham WPtel: [phone] [phone] [place] (15 min) Moderate 2017 Patient [...] to 175mcg. 09/09/2017 Appointment: Vonda Everett WPtel: [phone] [facility] (15 min) Moderate 09/09/2017 Patient Education: [...] and PRN pain medications - will have shelter fax over PRN medication administration record. 06/08/2017 Appointment: Sunitha Patel WPtel: [phone] [facility] [place] (30 min) Complex 06/08/2017 Patient [...] of over-medication. 04/15/2017 Appointment: Sunitha Patel WPtel: [address] [place], [place] [id number] (30 min) [facility] 04/15/2017 Patient Education: Patient Medication Summary Completed [...] today. 02/16/2017 App[facility]ment[phone] [facility] ([facility] min) Moderate 02/16/2017 Patient [...] concerns. 11/09/2016 [phone] ([facility] min) Complex 11/09/2016 Patient Education: Patient Medication Summary Completed 11/09/2016 Care Plan: Referral Order SNOMED-CT : [id number] Pending 11/09/2016 Patient Education: Patient Medication Summary [...] Follow up weight in 1 month Neck mhdx-viybijiozhu-Peav PT focus neck/upper body Right earache-cerumen removed with water pick today in the office 07/18/2015 Appointment: (30 min) Complex 07/18/2015 Patient Education: Patient Medication Summary Completed 07/18/2015 Patient Education: Obesity Completed 07/18/2015 Patient Education: .Cervicalgia Neck Pain Completed 07/18/2015 [phone] [facility] Referral Completed 06/25/2015 Visit Plan: Hypertension - [...] liver response to medications. [facility] - left sided weakness, neck stiffness, upper extremity weakness Diabetes Mellitus - controlled - per family report - check labs this week, get report from and [facility]. I spent over an hour with the patient in direct contact. 06/17/2015 Appointment: Vonda Everett WPtel: [phone] [facility] New Patient 06/17/2015 Patient Education: Patient Medication Summary Completed 06/17/2015 Patient Education: Obesity Completed 06/17/2015 Patient Education: Hypertension Completed 06/17/2015 Care Plan: Referral Order SNOMED-CT : [id number] Ordered 06/17/2015 Referral: Jorge Luis Carroll Referral Initiated Referral: [facility] WPtel: [phone] Referral Appointment Requested Instructions Comment . [...] response to medications. referral to [facility] physical and occupational therapy for post stroke - left sided weakness, neck stiffness, upper extremity weakness Diabetes Mellitus - controlled - per family report - check labs this week, get report from and [facility]. I spent over an [...] Follow up weight in 1 month Neck oynm-tawzezdubif-Rbab PT focus neck/upper body Right earache-cerumen removed [...] to 4 units daily -monitor blood sugars AWG-qwatuqotqb-ox changes Chronic pain -well controlled with fentanyl [...] and PRN pain medications - will have shelter fax over PRN medication administration record. . [...]
--- OUTSIDE RECORDS SUMMARY | 2018-08-09 12:19 | XMS REPORT | CCD ---
Author Author Vonda Everett Organization Vonda Everett MD, [facility] Address [address] [place] [address] Phone Care Team Providers Care Legal Nurse Consultant Name Role Phone PP Unavailable CCM Unavailable Summary Purpose Interface Exchange Insurance Providers Payer name Policy type / Coverage type Covered republican ID Effective Begin Date Effective End Date WPS Medicare Part B Medicare Part B [id number] Unknown Unknown [place] Residential Life Insurance Medicare Part B [id number] Unknown Unknown Family history Father Diagnosis Age At Onset Arthritis Unknown Hypertension Unknown Mother Diagnosis Age At Onset Diabetes mellitus Type 2 Unknown Depression Unknown Arthritis Unknown Stroke Unknown Hypertension Unknown Sister Diagnosis Age At Onset Colon cancer Unknown Social History Social History Element Codes Description Effective Dates Marital status Unknown Maurice 01/07/2018 Living arrangements Unknown Shelter [facility] 04/15/2017 Number of children Unknown 3 06/17/2015 Employment Unknown Retired 06/17/[address]: 3813517 Quit over 10 years ago 15+ 06/17/[address]: 759284521 Never drinks alcohol 06/17/2015 Allergies, Adverse Reactions, [...] hydrocodone 10 mg-acetaminophen 325 mg tablet RxNorm: 552602 2 Tablet(s) PO scheduled TID 02/18/2018 No Stop Date Active Not to exceed 3gm/24hr acetaminophen hyoscyamine 0.125 mg disintegrating tablet RxNorm: 1287918 Tablet(s) 1-2 Tablet(s) PO Q8 as needed 02/08/2018 No Stop Date Active fentanyl 100 mcg/hr transdermal patch RxNorm: 037879 1 Patch TD Q72H 02/04/2018 03/05/2018 Active Duragesic 75 mcg/hr transdermal patch RxNorm: 010696 1 Patch TD Q72H 02/04/2018 No Stop Date Active hydrocodone 10 mg-acetaminophen 325 mg tablet RxNorm: 465974 2 Tablet(s) PO scheduled TID 02/04/2018 02/17/2018 Inactive Not to exceed 3gm/24hr acetaminophen Levemir FlexTouch U-100 Insulin 100 unit/mL (3 mL) subcutaneous pen RxNorm: 848956 4 Unit(s) SQ QHS 01/07/2018 No Stop Date Active Duragesic 75 mcg/hr transdermal patch RxNorm: 828046 1 Patch TD Q72H 01/07/2018 02/03/2018 Inactive fentanyl 100 mcg/hr transdermal patch RxNorm: 309493 1 Patch TD Q72H 01/07/2018 02/03/2018 Inactive hydrocodone 10 mg-acetaminophen 325 mg tablet RxNorm: 444355 2 Tablet(s) PO scheduled TID 01/05/2018 02/03/2018 Inactive Not to exceed 3gm/24hr acetaminophen hydrocodone 10 mg-acetaminophen 325 mg tablet RxNorm: 150584 2 Tablet(s) PO scheduled TID and 1 tab q 4 as needed 01/04/2018 01/04/2018 Inactive Not to exceed 3gm/24hr acetaminophen cyanocobalamin (vit B-12) 1,000 mcg tablet RxNorm: 071682 1 Tablet(s) PO daily 12/28/2017 11/22/2018 Active baclofen 10 mg tablet RxNorm: 806020 Tablet(s) TAKE 1 TABLET THREE TIMES DAILY VIA STOMACH TUBE 12/27/2017 05/25/2018 Active 10/07/2017 5:36:15 PM 10/07/2017 5:36:13 PM N O T I C E Last quantity doesn't match original quantity Duragesic 75 mcg/hr transdermal patch RxNorm: 452799 1 Patch TD Q72H 12/22/2017 01/06/2018 Inactive fentanyl 100 mcg/hr transdermal patch RxNorm: 507632 1 Patch TD Q72H 12/22/2017 01/06/2018 Inactive hydrocodone 10 mg-acetaminophen 325 mg tablet RxNorm: 955800 2 Tablet(s) PO scheduled TID and 1 tab q 4 as needed 12/20/2017 01/03/2018 Inactive Not to exceed 3gm/24hr acetaminophen hyoscyamine 0.125 mg disintegrating tablet RxNorm: 9968012 1-2 Tablet(s) PO Q8 as needed 12/14/2017 02/07/2018 Inactive Duragesic 75 mcg/hr transdermal patch RxNorm: 335835 1 Patch TD Q72H 12/06/2017 12/21/2017 Inactive fentanyl 100 mcg/hr transdermal patch RxNorm: 216515 1 Patch TD Q72H 12/06/2017 12/21/2017 Inactive hydrocodone 10 mg-acetaminophen 325 mg tablet RxNorm: 000344 2 Tablet(s) PO scheduled TID and 1 tab q 4 as needed 11/29/2017 12/19/2017 Inactive Not to exceed 3gm/24hr acetaminophen Duragesic 75 mcg/hr transdermal patch RxNorm: 313054 1 Patch TD Q72H 11/11/2017 12/05/2017 Inactive hydrocodone 10 mg-acetaminophen 325 mg tablet RxNorm: 626074 2 Tablet(s) PO scheduled TID and 1 tab q 4 as needed 11/09/2017 11/28/2017 Inactive Not to exceed 3gm/24hr acetaminophen Levemir FlexTouch U-100 Insulin 100 unit/mL (3 mL) subcutaneous pen RxNorm: 796503 8 Unit(s) SQ QHS 11/09/2017 01/06/2018 Inactive fentanyl 100 mcg/hr transdermal patch RxNorm: 655304 1 Patch TD Q72H 2017 12/05/2017 Inactive hyoscyamine 0.125 mg disintegrating tablet RxNorm: 6596431 1-2 Tablet(s) PO Q8 as needed 11/03/2017 12/13/2017 Inactive carvedilol 3.125 mg tablet RxNorm: 037930 GIVE 1 TABLET VIA PEG TUBE 2 TIMES A DAY 10/22/2017 01/19/2018 Inactive Generic For:COREG 3.125MG 10/22/2017 9:23:30 AM hydrocodone 10 mg-acetaminophen 325 mg tablet RxNorm: 207426 2 Tablet(s) PO scheduled TID and 1 tab q 4 as needed 10/22/2017 2017 Inactive Not to exceed 3gm/24hr acetaminophen fentanyl 100 mcg/hr transdermal patch RxNorm: 256184 1 Patch TD Q72H 10/20/2017 11/07/2017 Inactive Duragesic 75 mcg/hr transdermal patch RxNorm: 254795 1 Patch TD Q72H 10/20/2017 11/10/2017 Inactive lorazepam 0.5 mg tablet RxNorm: 341942 1 Tablet(s) PO BID and 1 tab q 6 hours prn 10/18/2017 No Stop Date Active baclofen 10 mg tablet RxNorm: 898067 TAKE 1 TABLET THREE TIMES DAILY VIA STOMACH TUBE 10/07/2017 12/26/2017 Inactive 10/07/2017 5:36:15 PM 10/07/2017 5:36:13 PM N O T I C E Last quantity doesn't match original quantity cranberry extract 500 mg tablet RxNorm: 0328159 1 Tablet(s) PO QAM 10/04/2017 01/31/2018 Inactive Cipro 500 mg tablet RxNorm: 634679 1 Tablet(s) PO BID 10/04/2017 10/03/2017 Inactive dc keflex hydrocodone 10 mg-acetaminophen 325 mg tablet RxNorm: 869877 2 Tablet(s) PO scheduled TID as needed 10/04/2017 10/21/2017 Inactive Not to exceed 3gm/24hr acetaminophen cranberry extract 500 mg tablet RxNorm: 1588557 1 Tablet(s) PO QAM 10/04/2017 10/03/2017 Inactive Cipro 500 mg tablet RxNorm: 343611 1 Tablet(s) PO BID 10/04/2017 10/10/2017 Inactive dc keflex Duragesic 75 mcg/hr transdermal patch RxNorm: 858306 1 Patch TD Q72H 09/20/2017 10/19/2017 Inactive fentanyl 100 mcg/hr transdermal patch RxNorm: 860264 1 Patch TD Q72H 09/20/2017 10/19/2017 Inactive hyoscyamine 0.125 mg disintegrating tablet RxNorm: 6715730 1 Tablet(s) PO TID and 1 Tablet Q4H prn increased secretions 09/15/2017 11/02/2017 Inactive hydrocodone 10 mg-acetaminophen 325 mg tablet RxNorm: 749303 2 Tablet(s) PO scheduled TID and 1-2 Tabs Q4H PRN pain 09/15/2017 10/03/2017 Inactive Not to exceed 3gm/24hr acetaminophen lorazepam 0.5 mg tablet RxNorm: 903380 1 Tablet(s) PO BID 09/15/2017 10/17/2017 Inactive Lexapro 10 mg tablet RxNorm: 757191 1 Tablet(s) PO daily 09/10/2017 09/14/2017 Inactive lisinopril 10 mg tablet RxNorm: 738627 1 Tablet(s) PO daily 09/09/2017 06/05/2018 Active Levemir FlexTouch U-100 Insulin 100 unit/mL (3 mL) subcutaneous pen RxNorm: 042183 10 Unit(s) daily 09/09/2017 09/15/2017 Inactive Duragesic 75 mcg/hr transdermal patch RxNorm: 960484 1 Patch TD Q72H 09/09/2017 09/19/2017 Inactive nystatin 100,000 unit/gram topical cream RxNorm: 615974 1 Gram(s) TOP TID until healed to gaulding 09/06/2017 01/03/2018 Inactive nystatin 100,000 unit/gram topical cream RxNorm: 263663 1 Gram(s) TOP TID until healed to gaulding 09/06/2017 09/05/2017 Inactive hydrocodone 10 mg-acetaminophen 325 mg tablet RxNorm: 976121 2 Tablet(s) PO scheduled TID as needed 08/31/2017 09/14/2017 Inactive Not to exceed 3gm/24hr acetaminophen fentanyl 100 mcg/hr transdermal patch RxNorm: 917465 1 Patch TD Q72H 08/24/2017 09/19/2017 Inactive fentanyl 50 mcg/hr transdermal patch RxNorm: 428520 1 Patch TD Q72H 08/24/2017 09/08/2017 Inactive fentanyl 25 mcg/hr transdermal patch RxNorm: 520285 1 Patch TD Q72H 08/24/2017 08/24/2017 Inactive hyoscyamine 0.125 mg disintegrating tablet RxNorm: 3322031 Tablet(s) 1-2 Tablet(s) PO Q8 as needed 08/23/2017 09/14/2017 Inactive hydrocodone 10 mg-acetaminophen 325 mg tablet RxNorm: 986505 1 Tablet(s) PO scheduled TID et Q6 hours as needed 08/18/2017 08/30/2017 Inactive Not to exceed 3gm/24hr acetaminophen hydrochlorothiazide 25 mg tablet RxNorm: 284922 GIVE 1 TABLET VIA PEG TUBE ONCE DAILY 08/17/2017 02/12/2018 Inactive Generic For:HYDRODIURIL 25 MG TABLET 08/17/2017 9:01:54 AM08/11/2017 10:12:00 AM lorazepam 0.5 mg tablet RxNorm: 114314 1/2 Tablet(s) PO BID 08/03/2017 09/14/2017 Inactive fentanyl 100 mcg/hr transdermal patch RxNorm: 923606 1 Patch TD Q72H 07/26/2017 08/23/2017 Inactive fentanyl 25 mcg/hr transdermal patch RxNorm: 091283 1 Patch TD Q72H 07/26/2017 08/23/2017 Inactive hydrocodone 10 mg-acetaminophen 325 mg tablet RxNorm: 496988 1 Tablet(s) PO scheduled TID et Q6 hours as needed 07/16/2017 08/14/2017 Inactive Not to exceed 3gm/24hr acetaminophen hyoscyamine 0.125 mg disintegrating tablet RxNorm: 8451675 Tablet(s) 1-2 Tablet(s) PO Q8 as needed 07/13/2017 08/01/2017 Inactive baclofen 10 mg tablet RxNorm: 676295 TAKE 1 TABLET THREE TIMES DAILY VIA STOMACH TUBE 07/12/2017 10/06/2017 Inactive 07/12/2017 9:04:08 AM N O T I C E Last quantity doesn't match original quantity lorazepam 0.5 mg tablet RxNorm: 244244 1/2 Tablet(s) PO BID 07/02/2017 08/02/2017 Inactive fentanyl 100 mcg/hr transdermal patch RxNorm: 347976 1 Patch TD Q72H 06/28/2017 07/25/2017 Inactive fentanyl 25 mcg/hr transdermal patch RxNorm: 810670 1 Patch TD Q72H 06/28/2017 07/25/2017 Inactive hyoscyamine 0.125 mg disintegrating tablet RxNorm: 8559959 Tablet(s) 1-2 Tablet(s) PO Q8 as needed 06/03/2017 06/22/2017 Inactive fentanyl 25 mcg/hr transdermal patch RxNorm: 619183 1 Patch TD Q72H 05/26/2017 06/24/2017 Inactive Levemir FlexTouch U-100 Insulin 100 unit/mL (3 mL) subcutaneous pen RxNorm: 204940 20 Unit(s) SQ BID 05/26/2017 09/08/2017 Inactive fentanyl 100 mcg/hr transdermal patch RxNorm: 746423 1 Patch TD Q72H 05/26/2017 06/24/2017 Inactive hydrocodone 10 mg-acetaminophen 325 mg tablet RxNorm: 843655 1 Tablet(s) PO scheduled BID et Q6 hours as needed 05/12/2017 05/11/2017 Inactive hydrocodone 10 mg-acetaminophen 325 mg tablet RxNorm: 738819 1 Tablet(s) PO scheduled TID et Q6 hours as needed 05/12/2017 06/10/2017 Inactive Not to exceed 3gm/24hr acetaminophen docusate sodium 100 mg tablet RxNorm: 2807981 1 Tablet(s) PO BID as needed if no bowel movement 05/10/2017 05/09/2017 Inactive lisinopril 20 mg tablet RxNorm: 602417 1 Tablet(s) PO daily 05/10/2017 09/08/2017 Inactive docusate sodium 100 mg tablet RxNorm: 6064316 1 Tablet(s) PO BID as needed if no bowel movement 05/10/2017 09/14/2017 Inactive fentanyl 25 mcg/hr transdermal patch RxNorm: 044641 1 Patch TD Q72H 05/03/2017 05/25/2017 Inactive lorazepam 0.5 mg tablet RxNorm: 225188 1/2 Tablet(s) PO BID 05/03/2017 07/01/2017 Inactive fentanyl 100 mcg/hr transdermal patch RxNorm: 715749 1 Patch TD Q72H 04/27/2017 05/25/2017 Inactive carvedilol 3.125 mg tablet RxNorm: 482246 Tablet(s) GIVE 1 TABLET VIA PEG TUBE DAILY 04/15/2017 10/21/2017 Inactive Levemir FlexTouch 100 unit/mL (3 mL) subcutaneous insulin pen RxNorm: 182933 10 Unit(s) SQ BID 04/15/2017 2017 Inactive hyoscyamine 0.125 mg disintegrating tablet RxNorm: 1090945 1-2 Tablet(s) PO Q8 as needed 04/14/2017 05/03/2017 Inactive hydrocodone 10 mg-acetaminophen 325 mg tablet RxNorm: 904417 1 Tablet(s) PO scheduled BID et Q6 hours as needed 04/13/2017 05/02/2017 Inactive baclofen 10 mg tablet RxNorm: 776616 TAKE 1 TABLET THREE TIMES DAILY VIA STOMACH TUBE 04/08/2017 05/22/2017 Inactive 04/08/2017 9:32:07 AM fentanyl 25 mcg/hr transdermal patch RxNorm: 681546 1 Patch TD Q72H 04/05/2017 05/02/2017 Inactive lidocaine 10 mg/mL (1 %) injection solution RxNorm: 3167580 1 Milliliter(s) Inj daily Mix with rocephin 03/31/2017 03/30/2017 Inactive Pt resides at [facility] lidocaine 10 mg/mL (1 %) injection solution RxNorm: 8417071 1 Milliliter(s) Inj daily Mix with rocephin 03/31/2017 04/06/2017 Inactive Pt resides at [facility] fentanyl 100 mcg/hr transdermal patch RxNorm: 328032 1 Patch TD Q72H 03/29/2017 04/26/2017 Inactive nystatin 100,000 unit/gram topical powder RxNorm: 405040 APPLY UNDER BREASTS TWICE DAILY FOR YEAST SKIN INFECTION AND APPLY TO UNDERARM AND ABDOMINAL FOLDS AND PERIAREA TWICE DAILY 03/29/2017 03/28/2017 Inactive 03/27/2017 9:12:50 AM nystatin 100,000 unit/gram topical powder RxNorm: 050614 APPLY UNDER BREASTS TWICE DAILY FOR YEAST SKIN INFECTION AND APPLY TO UNDERARM AND ABDOMINAL FOLDS AND PERIAREA TWICE DAILY 03/29/2017 09/14/2017 Inactive 03/29/2017 9:42:55 AM03/27/2017 9:12:50 AM hyoscyamine 0.125 mg disintegrating tablet RxNorm: 7458439 1-2 Tablet(s) PO Q8 as needed 03/08/2017 03/27/2017 Inactive fentanyl 25 mcg/hr transdermal patch RxNorm: 529838 1 Patch TD Q72H 03/02/2017 03/31/2017 Inactive hydrocodone 10 mg-acetaminophen 325 mg tablet RxNorm: 215685 1 Tablet(s) PO scheduled BID et Q6 hours as needed 02/17/2017 03/18/2017 Inactive fentanyl 100 mcg/hr transdermal patch RxNorm: 361429 1 Patch TD Q72H 02/17/2017 03/18/2017 Inactive Lexapro 10 mg tablet RxNorm: 128060 1 Tablet(s) PO daily 02/05/2017 04/14/2017 Inactive Lexapro 10 mg tablet RxNorm: 794155 1 Tablet(s) PO daily 02/05/2017 02/04/2017 Inactive fentanyl 25 mcg/hr transdermal patch RxNorm: 379082 1 Patch TD Q72H 02/04/2017 03/01/2017 Inactive cyanocobalamin (vit B-12) 1,000 mcg tablet RxNorm: 461451 1 Tablet(s) PO daily 01/18/2017 12/13/2017 Inactive hyoscyamine 0.125 mg disintegrating tablet RxNorm: 4368852 Tablet(s) 1-2 Tablet(s) PO Q8 as needed 01/18/2017 02/06/2017 Inactive baclofen 10 mg tablet RxNorm: 777104 TAKE 1 TABLET THREE TIMES DAILY VIA STOMACH TUBE 01/04/2017 02/17/2017 Inactive 01/04/2017 9:25:18 AM fentanyl 100 mcg/hr transdermal patch RxNorm: 911254 1 Patch TD Q72H 12/25/2016 01/23/2017 Inactive hydrochlorothiazide 25 mg tablet RxNorm: 021569 Tablet(s) GIVE 1 TABLET VIA PEG TUBE ONCE A DAY 12/14/2016 07/11/2017 Inactive fentanyl 100 mcg/hr transdermal patch RxNorm: 320154 1 Patch TD Q72H 11/25/2016 12/24/2016 Inactive hyoscyamine 0.125 mg disintegrating tablet RxNorm: 1488467 Tablet(s) 1-2 Tablet(s) PO Q8 as needed 11/25/2016 12/14/2016 Inactive nystatin 100,000 unit/gram topical powder RxNorm: 435188 APPLY UNDER BREASTS TWICE DAILY FOR YEAST SKIN INFECTION AND APPLY TO UNDERARM AND ABDOMINAL FOLDS AND PERIAREA TWICE DAILY 11/24/2016 01/22/2017 Inactive 11/24/2016 9:34:02 AM hydrocodone 10 mg-acetaminophen 325 mg tablet RxNorm: 411256 1 Tablet(s) PO scheduled BID et Q6 hours as needed 11/02/2016 12/01/2016 Inactive cyanocobalamin (vit B-12) 1,000 mcg tablet RxNorm: 574743 1 Tablet(s) PO daily 11/02/2016 01/17/2017 Inactive hyoscyamine 0.125 mg disintegrating tablet RxNorm: 7007029 1-2 Tablet(s) PO Q8 as needed 10/19/2016 11/24/2016 Inactive fentanyl 100 mcg/hr transdermal patch RxNorm: 568589 1 Patch TD Q72H 10/13/2016 11/11/2016 Inactive hydrocodone 10 mg-acetaminophen 325 mg tablet RxNorm: 229199 1 Tablet(s) PO scheduled BID et Q6 hours as needed 10/05/2016 11/01/2016 Inactive baclofen 10 mg tablet RxNorm: 016048 TAKE 1 TABLET THREE TIMES DAILY VIA STOMACH TUBE 10/01/2016 11/14/2016 Inactive 10/01/2016 9:24:37 AM carvedilol 3.125 mg tablet RxNorm: 386195 GIVE 1 TABLET VIA PEG TUBE 2 TIMES A DAY 09/30/2016 12/28/2016 Inactive Generic For:COREG 3.125MG 09/30/2016 1:12:28 PM09/25/2016 9:06:11 AM Probiotic Blend 2 million cell-50 mg capsule RxNorm: 1 Capsule(s) PO BID 09/17/2016 09/23/2016 Inactive Keflex 500 mg capsule RxNorm: 172771 1 Capsule(s) PO TID 09/17/2016 09/23/2016 Inactive hyoscyamine 0.125 mg/5 mL oral elixir RxNorm: 1587083 5 Milliliter(s) PO TID 09/08/2016 09/17/2016 Inactive hyoscyamine 0.125 mg/5 mL oral elixir RxNorm: 3285146 5 Milliliter(s) PO TID 09/08/2016 09/07/2016 Inactive hyoscyamine 0.125 mg disintegrating tablet RxNorm: 1704746 1-2 Tablet(s) PO Q8 as needed 09/07/2016 10/18/2016 Inactive fentanyl 100 mcg/hr transdermal patch RxNorm: 517531 1 Patch TD Q72H 09/01/2016 09/30/2016 Inactive ranitidine 150 mg tablet RxNorm: 956846 1 Tablet(s) PO BID 08/25/2016 No Stop Date Active hydrocodone 10 mg-acetaminophen 325 mg tablet RxNorm: 881511 1 Tablet(s) PO scheduled BID et Q6 hours as needed 08/24/2016 09/22/2016 Inactive cyanocobalamin (vit B-12) 1,000 mcg tablet RxNorm: 226271 1 Tablet(s) PO daily 08/12/2016 11/01/2016 Inactive cyanocobalamin (vit B-12) 1,000 mcg tablet RxNorm: 352310 1 Tablet(s) PO daily 08/12/2016 08/11/2016 Inactive hydrocodone 10 mg-acetaminophen 325 mg tablet RxNorm: 951079 1-2 Tablet(s) PO Q6 as needed 08/03/2016 08/17/2016 Inactive fentanyl 100 mcg/hr transdermal patch RxNorm: 140085 1 Patch TD Q72H 08/03/2016 08/31/2016 Inactive nystatin 100,000 unit/gram topical powder RxNorm: 574607 APPLY UNDER BREASTS TWICE DAILY FOR YEAST SKIN INFECTION AND APPLY TO UNDERARM AND ABDOMINAL FOLDS AND PERIAREA TWICE DAILY 07/17/2016 09/14/2016 Inactive 07/17/2016 3:56:54 PM fentanyl 100 mcg/hr transdermal patch RxNorm: 431364 1 Patch TD Q72H 07/15/2016 08/02/2016 Inactive lisinopril 20 mg tablet RxNorm: 908064 1 Tablet(s) PO daily 07/02/2016 03/28/2017 Inactive hydrocodone 10 mg-acetaminophen 325 mg tablet RxNorm: 943145 1-2 Tablet(s) PO Q6 as needed 07/01/2016 07/15/2016 Inactive Xarelto 20 mg tablet RxNorm: 1792468 Tablet(s) TAKE 1 TABLET VIA PEG TUBE AT BEDTIME 06/19/2016 04/14/2017 Inactive fentanyl 100 mcg/hr transdermal patch RxNorm: 069213 1 Patch TD Q72H 06/17/2016 07/14/2016 Inactive nystatin 100,000 unit/gram topical powder RxNorm: 431773 APPLY TO UNDER BREASTS TWICE DAILY FOR YEAST SKIN INFECTION AND APPLY TO UNDERARM AND ABDOMINAL FOLDS AND PERIAREA TWICE DAILY 06/15/2016 07/16/2016 Inactive Generic For:MYCOSTATIN 100,000 UNITS/GM PW 06/15/2016 12:28:26 PM fentanyl 100 mcg/hr transdermal patch RxNorm: 337993 1 Patch TD Q72H 06/05/2016 06/16/2016 Inactive hydrocodone 10 mg-acetaminophen 325 mg tablet RxNorm: 945723 1-2 Tablet(s) PO Q6 as needed 06/02/2016 06/16/2016 Inactive Probiotic Blend 2 million cell-50 mg capsule RxNorm: 1 Capsule(s) PO BID 05/13/2016 05/19/2016 Inactive nitrofurantoin 100 mg capsule RxNorm: 022845 1 Capsule(s) PO BID 05/13/2016 05/19/2016 Inactive nitrofurantoin 100 mg capsule RxNorm: 506213 1 Capsule(s) PO BID 05/13/2016 05/12/2016 Inactive fentanyl 75 mcg/hr transdermal patch RxNorm: 744471 1 Patch TD Q72H 05/13/2016 06/04/2016 Inactive Keflex 500 mg capsule RxNorm: 279486 1 Capsule(s) PO TID 05/07/2016 05/13/2016 Inactive Patient at [facility] Keflex 500 mg capsule RxNorm: 880286 1 Capsule(s) PO TID 05/07/2016 05/06/2016 Inactive hydrocodone 10 mg-acetaminophen 325 mg tablet RxNorm: 349443 1-2 Tablet(s) PO Q6 as needed 05/04/2016 06/01/2016 Inactive hydrochlorothiazide 25 mg tablet RxNorm: 624016 Tablet(s) GIVE 1 TABLET VIA PEG TUBE ONCE A DAY 04/29/2016 11/24/2016 Inactive hydrochlorothiazide 25 mg tablet RxNorm: 861517 GIVE 1 TABLET VIA PEG TUBE ONCE A DAY 04/22/2016 04/28/2016 Inactive Generic For:HYDRODIURIL 25 MG TABLET refill request fentanyl 75 mcg/hr transdermal patch RxNorm: 985289 1 Patch TD Q72H 04/17/2016 05/12/2016 Inactive Xarelto 20 mg tablet RxNorm: 3245482 TAKE 1 TABLET VIA PEG TUBE AT BEDTIME 04/16/2016 06/14/2016 Inactive 04/16/2016 9:08:52 AM citalopram 40 mg tablet RxNorm: 909973 1 Tablet(s) PO daily 04/02/2016 02/25/2017 Inactive citalopram 40 mg tablet RxNorm: 748624 1 Tablet(s) PO daily 03/27/2016 04/01/2016 Inactive hydrocodone 10 mg-acetaminophen 325 mg tablet RxNorm: 236575 1-2 Tablet(s) PO Q6 as needed 03/27/2016 04/25/2016 Inactive fentanyl 75 mcg/hr transdermal patch RxNorm: 271511 1 Patch TD Q72H 03/18/2016 04/16/2016 Inactive hydrocodone 10 mg-acetaminophen 325 mg tablet RxNorm: 258728 1-2 Tablet(s) PO Q6 as needed 03/11/2016 03/26/2016 Inactive citalopram 40 mg tablet RxNorm: 055848 1 Tablet(s) PO daily 03/04/2016 03/26/2016 Inactive Levemir FlexTouch U-100 Insulin 100 unit/mL (3 mL) subcutaneous pen RxNorm: 237252 20 Unit(s) SQ BID 03/02/2016 09/27/2016 Inactive lisinopril 20 mg tablet RxNorm: 643882 1 Tablet(s) PO daily 02/25/2016 07/01/2016 Inactive Ativan 0.5 mg tablet RxNorm: 530046 1 Tablet(s) PO Q4H as needed 02/18/2016 04/14/2017 Inactive Xarelto 20 mg tablet RxNorm: 6586847 TAKE 1 TABLET VIA PEG TUBE AT BEDTIME 02/12/2016 04/11/2016 Inactive 02/12/2016 9:08:22 AM hydrocodone 10 mg-acetaminophen 325 mg tablet RxNorm: 665040 1-2 Tablet(s) PO Q6 as needed 02/12/2016 03/10/2016 Inactive fentanyl 75 mcg/hr transdermal patch RxNorm: 009084 1 Patch TD Q72H 02/11/2016 03/11/2016 Inactive citalopram 20 mg tablet RxNorm: 775418 1 Tablet(s) PO daily 01/28/2016 03/03/2016 Inactive fentanyl 75 mcg/hr transdermal patch RxNorm: 760108 1 TD Q72H 01/17/2016 02/10/2016 Inactive hydrocodone 10 mg-acetaminophen 325 mg tablet RxNorm: 321047 1-2 Tablet(s) PO Q6 as needed 01/07/2016 02/05/2016 Inactive fentanyl 50 mcg/hr transdermal patch RxNorm: 562123 1 TD Q72H 01/01/2016 01/16/2016 Inactive fentanyl 50 mcg/hr transdermal patch RxNorm: 024914 1 TD q 3 days 12/26/2015 12/31/2015 Inactive Xarelto 20 mg tablet RxNorm: 6664658 TAKE 1 TABLET VIA PEG TUBE AT BEDTIME 12/17/2015 02/11/2016 Inactive 12/16/2015 3:27:57 PM12/14/2015 9:45:17 AM hydrocodone 10 mg-acetaminophen 325 mg tablet RxNorm: 336670 1-2 Tablet(s) PO Q6 as needed 12/06/2015 01/04/2016 Inactive fentanyl 50 mcg/hr transdermal patch RxNorm: 592953 1 TD q 3 days 12/06/2015 12/25/2015 Inactive fentanyl 25 mcg/hr transdermal patch RxNorm: 570209 1 TD q 3 days 11/18/2015 12/05/2015 Inactive Zithromax Z-Eliu 250 mg tablet RxNorm: 665368 1 Tablet(s) PO UD 10/09/2015 02/26/2016 Inactive z pack as directed- please write out instructions- pt at [facility] nystatin 100,000 unit/gram topical powder RxNorm: 246991 APPLY TO UNDER BREASTS TWICE DAILY FOR YEAST SKIN INFECTION AND APPLY TO UNDERARM AND ABDOMINAL FOLDS AND PERIAREA TWICE DAILY 10/07/2015 12/05/2015 Inactive Generic For:MYCOSTATIN 100,000 UNITS/GM PW 10/05/2015 12:07:35 PM fentanyl 25 mcg/hr transdermal patch RxNorm: 057849 1 TD q 3 days 10/03/2015 11/01/2015 Inactive fentanyl 25 mcg/hr transdermal patch RxNorm: 915336 1 TD q 3 days 09/27/2015 10/02/2015 Inactive fentanyl 25 mcg/hr transdermal patch RxNorm: 110907 1 TD q 3 days 09/17/2015 09/26/2015 Inactive fentanyl 25 mcg/hr transdermal patch RxNorm: 340361 1 TD q 3 days 08/30/2015 09/16/2015 Inactive hydrocodone 5 mg-acetaminophen 325 mg tablet RxNorm: 168131 1 Tablet(s) PO Q6 as needed 08/30/2015 09/28/2015 Inactive Diflucan 100 mg tablet RxNorm: 176179 1 Tablet(s) Miscellaneous per peg daily 07/29/2015 08/04/2015 Inactive fentanyl 25 mcg/hr transdermal patch RxNorm: 031987 1 TD q 3 days 07/18/2015 08/29/2015 Inactive hydrocodone 5 mg-acetaminophen 325 mg tablet RxNorm: 679507 1 Tablet(s) PO Q6 as needed 07/18/2015 08/29/2015 Inactive Diflucan 100 mg tablet RxNorm: 737981 1 Tablet(s) Miscellaneous per peg daily 06/17/2015 06/23/2015 Inactive Senna-S 8.6 mg-50 mg tablet RxNorm: 415218 1 Tablet(s) PO daily as needed constipation No Start Date Active Dulcolax (bisacodyl) 10 mg rectal suppository RxNorm: 532508 1 Suppository RTL daily as needed constipation No Start Date Active albuterol sulfate concentrate 5 mg/mL(0.5 %) solution for nebulization RxNorm: 403533 1 Vial INH daily as needed congestion No Start Date Active polyethylene glycol 3350 17 gram/dose oral powder RxNorm: 780739 17 Gram(s) PO daily as needed constipation No Start Date Active baclofen 10 mg tablet RxNorm: 128476 1 Tablet(s) PO TID No Start Date 09/30/2016 Inactive Ativan 0.5 mg tablet RxNorm: 564319 1 Tablet(s) PO Q4H as needed No Start Date 02/17/2016 Inactive ranitidine 150 mg tablet RxNorm: 692955 1 Tablet(s) PO daily No Start Date 08/24/2016 Inactive carvedilol 3.125 mg tablet RxNorm: 261636 1 Tablet(s) PO daily No Start Date 09/29/2016 Inactive citalopram 40 mg tablet RxNorm: 552244 1 Tablet(s) PO daily No Start Date 01/27/2016 Inactive Probiotic Blend oral RxNorm: oral No Start Date 05/12/2016 Inactive hydrochlorothiazide 25 mg tablet RxNorm: 364245 1 Tablet(s) PO daily No Start Date 04/21/2016 Inactive Levemir FlexTouch 100 unit/mL (3 mL) subcutaneous insulin pen RxNorm: 893707 10 Unit(s) SQ BID No Start Date 03/01/2016 Inactive Zithromax Z-Eliu 250 mg tablet RxNorm: 302182 1 Tablet(s) PO UD No Start Date 10/08/2015 Inactive z pack as directed- please write out instructions- pt at [facility] nystatin 100,000 unit/gram topical powder RxNorm: 159170 Gram(s) TOP BID as needed No Start Date 10/06/2015 Inactive pravastatin 40 mg tablet RxNorm: 437243 Tablet(s) PO daily No Start Date 04/14/2017 Inactive lorazepam 0.5 mg tablet RxNorm: 680966 1/2 Tablet(s) PO BID No Start Date 05/02/2017 Inactive Xarelto 20 mg tablet RxNorm: 4417254 1 Tablet(s) PO daily No Start Date 12/16/2015 Inactive fentanyl 25 mcg/hr transdermal patch RxNorm: 520948 1 TD q 3 days No Start Date 07/17/2015 Inactive lisinopril 20 mg tablet RxNorm: 095296 1 Tablet(s) PO daily No Start Date 02/24/2016 Inactive hydrocodone 5 mg-acetaminophen 325 mg tablet RxNorm: 197801 1 Tablet(s) PO Q6 as needed No Start Date 07/17/2015 Inactive citalopram 40 mg tablet RxNorm: 384108 1 Tablet(s) PO daily No Start Date 03/03/2016 Inactive hyoscyamine 0.125 mg disintegrating tablet RxNorm: 5003218 1-2 Tablet(s) PO Q8 as needed No [...] 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 ICD-9: V44.1 06/17/2015 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5 % 02/14/2018 %Hba1C Rub868 Gluc Ave 111 mg/dL 02/14/2018 Cbc With Differential Ord2 WBC 6.39 K/ul 02/14/2018 Cbc With Differential Ord2 RBC 3.36 M/ul 02/14/2018 Cbc With Differential Ord2 HGB 10.3 g/dl 02/14/2018 Cbc With Differential Ord2 Neut% 53.6 % 02/14/2018 Cbc With Differential Ord2 HCT 35.6 % 02/14/2018 Cbc With Differential Ord2 MCV 106.0 fl 02/14/2018 Cbc With Differential Ord2 Lymph% 33.5 % 02/14/2018 Cbc With Differential Ord2 MCH 30.7 pg 02/14/2018 Cbc With Differential Ord2 [place]% 7.4 % 02/14/2018 Cbc With Differential Ord2 Eos% 5.3 % 02/14/2018 Cbc With Differential Ord2 MCHC 28.9 pg 02/14/2018 Cbc With Differential Ord2 PLT 123 K/ul 02/14/2018 Cbc With Differential Ord2 Baso% 0.2 % 02/14/2018 Cbc With Differential Ord2 RDW 12.1 % 02/14/2018 Cbc With Differential Ord2 Neut ABS# 3.43 K/ul 02/14/2018 Cbc With Differential Ord2 Lymph ABS# 2.14 K/ul 02/14/2018 Cbc With Differential Ord2 [place] ABS# 0.5 K/ul 02/14/2018 Cbc With Differential Ord2 Eos ABS# 0.3 K/ul 02/14/2018 Cbc With Differential Ord2 Baso ABS# 0.0 K/ul 02/14/2018 Comp Metabolic Muh009 NA 142 mEq/L 02/14/2018 Comp Metabolic Mdu946 K 4.5 mEq/L 02/14/2018 Comp Metabolic Oaa288 CL 97 mEq/L 02/14/2018 Comp Metabolic Rcv963 CO2 41.0 mEq/L 02/14/2018 Comp Metabolic Bix763 ANION GAP 9 02/14/2018 Comp Metabolic Psi974 GLUCOSE 111 mg/dL 02/14/2018 Comp Metabolic Hck643 Creat 0.6 mg/dL 02/14/2018 Comp Metabolic Mdl816 eGFR 108 ml/min/1.73m2 02/14/2018 Comp Metabolic Gxd358 BUN 32 mg/dL 02/14/2018 Comp Metabolic Kae457 B/C Ratio 54.2 Ratio 02/14/2018 Comp Metabolic Jlz276 CALCIUM 8.9 mg/dL 02/14/2018 Comp Metabolic Dbr320 ALK PHOS 81 U/L 02/14/2018 Comp Metabolic Vlw177 AST(SGOT) 14 U/L 02/14/2018 Comp Metabolic Kzz299 ALT(SGPT) 11 U/L 02/14/2018 Comp Metabolic Zme898 BILI T 0.3 mg/dL 02/14/2018 Comp Metabolic Zdk605 ALBUMIN 3.4 g/dL 02/14/2018 Comp Metabolic Cqc718 TPRO 6.3 g/dL 02/14/2018 Comp Metabolic Jrr648 GLOB 2.9 g/dL 02/14/2018 Comp Metabolic Tel869 A/G Ratio 1.2 Ratio 02/14/2018 Comp Metabolic Wgj831 Osmo 291 mOsmo 02/14/2018 Prealbumin 868573 PREALBUMIN 27 mg/dL 11/24/2017 %Hba1C Anu774 % HbA1c 46508- 6 5.5 % 11/04/2017 %Hba1C Vwa142 Gluc Ave 111 mg/dL 11/04/2017 Culture Urine [id number] URINE CULTURE SEE NOTES 10/04/2017 Culture Urine [id number] Continued Results 10/04/2017 Urine Culture Ucult Complete [...] Ord28 U-Com Culture to follow 10/01/2017 B12 Rfn174 B12 >1500.00 pg/ml 02/19/2017 Comp Metabolic Ldt135 NA 138 mEq/L 02/02/2017 Comp Metabolic Ebb336 K 4.5 mEq/L 02/02/2017 Comp Metabolic Jrq944 CL 98 mEq/L 02/02/2017 Comp Metabolic Gda651 CO2 37.0 mEq/L 02/02/2017 Comp Metabolic Wwg653 ANION GAP 8 02/02/2017 Comp Metabolic Fvv419 GLUCOSE 94 mg/dL 02/02/2017 Comp Metabolic Aps430 Creat 0.7 mg/dL 02/02/2017 Comp Metabolic Oba311 eGFR 88 ml/min/1.73m2 02/02/2017 Comp Metabolic Brr003 BUN 36 mg/dL 02/02/2017 Comp Metabolic Bkf757 B/C Ratio 50.7 Ratio 02/02/2017 Comp Metabolic Kkk912 CALCIUM 9.0 mg/dL 02/02/2017 Comp Metabolic Svv736 ALK PHOS 78 U/L 02/02/2017 Comp Metabolic Wnh236 AST(SGOT) 22 U/L 02/02/2017 Comp Metabolic Pbe884 ALT(SGPT) 28 U/L 02/02/2017 Comp Metabolic Bki029 BILI T 0.3 mg/dL 02/02/2017 Comp Metabolic Nlv973 ALBUMIN 3.3 g/dL 02/02/2017 Comp Metabolic Ook716 TPRO 5.9 g/dL 02/02/2017 Comp Metabolic Chv288 GLOB 2.6 g/dL 02/02/2017 Comp Metabolic Wmr324 A/G Ratio 1.3 Ratio 02/02/2017 Comp Metabolic Zcm969 Osmo 284 mOsmo 02/02/2017 %Hba1C Jiv978 % HbA1c 10727- 6 5.2 % 02/02/2017 %Hba1C Mvg058 Gluc Ave 103 mg/dL 02/02/2017 Cbc With [...] 31.5 pg 02/02/2017 Cbc With Differential Ord2 [place]% 8.3 % 02/02/2017 Cbc With Differential Ord2 [...] 2.28 K/ul 02/02/2017 Cbc With Differential Ord2 [place] ABS# 0.6 K/ul 02/02/2017 Cbc With Differential Ord2 Eos ABS# 0.4 K/ul 02/02/2017 Cbc With Differential Ord2 Baso ABS# 0.0 K/ul 02/02/2017 %Hba1C Sjf586 % HbA1c 77819- 6 5.0 % 10/29/2016 %Hba1C Xba955 Gluc Ave 97 mg/dL 10/29/2016 Culture Urine [id number] URINE CULTURE SEE NOTES 09/21/2016 Culture Urine [id number] Continued Results 09/21/2016 Urine Culture Ucult Complete [...] Urinalysis Ord28 U-Com Culture to follow 09/17/2016 A1C Frequency Eym134 A1CF 52472-0 Last A1C performed at [facility] on: 05-12-2016 07/30/2016 Cbc [...] 41.3 % 07/30/2016 Cbc With Differential Ord2 [place]% 7.2 % 07/30/2016 Cbc With Differential Ord2 [...] 2.69 K/ul 07/30/2016 Cbc With Differential Ord2 [place] ABS# 0.5 K/ul 07/30/2016 Cbc With Differential Ord2 Eos ABS# 0.5 K/ul 07/30/2016 Cbc With Differential Ord2 Baso ABS# 0.0 K/ul 07/30/2016 Comp Metabolic Pmv080 NA 141 mEq/L 07/30/2016 Comp Metabolic Bvr730 K 4.3 mEq/L 07/30/2016 Comp Metabolic Gmq563 CL 100 mEq/L 07/30/2016 Comp Metabolic Hvy332 CO2 33.0 mEq/L 07/30/2016 Comp Metabolic Kin891 ANION GAP 12 07/30/2016 Comp Metabolic Tod253 GLUCOSE 64 mg/dL 07/30/2016 Comp Metabolic Bnc401 Creat 0.5 mg/dL 07/30/2016 Comp Metabolic Gpd287 eGFR 126 ml/min/1.73m2 07/30/2016 Comp Metabolic Sla314 BUN 25 mg/dL 07/30/2016 Comp Metabolic Ghg007 B/C Ratio 48.1 Ratio 07/30/2016 Comp Metabolic Iov277 CALCIUM 8.9 mg/dL 07/30/2016 Comp Metabolic Aiz640 ALK PHOS 90 U/L 07/30/2016 Comp Metabolic Nic791 AST(SGOT) 22 U/L 07/30/2016 Comp Metabolic Zxg991 ALT(SGPT) 36 U/L 07/30/2016 Comp Metabolic Soo247 BILI T 0.3 mg/dL 07/30/2016 Comp Metabolic Rxw079 ALBUMIN 3.4 g/dL 07/30/2016 Comp Metabolic Gas987 TPRO 6.0 g/dL 07/30/2016 Comp Metabolic Wlh905 GLOB 2.7 g/dL 07/30/2016 Comp Metabolic Wqu059 A/G Ratio 1.3 Ratio 07/30/2016 Comp Metabolic Enn120 Osmo 284 mOsmo 07/30/2016 %Hba1C Epx936 % HbA1c 31650- 6 5.2 % 05/12/2016 %Hba1C Zjb487 Gluc Ave 103 mg/dL 05/12/2016 Culture Urine [id number] URINE CULTURE SEE NOTES 05/11/2016 Urine Culture [...] Urinalysis Ord28 U-Yeast NEGATIVE 05/06/2016 Culture Urine [id number] URINE CULTURE SEE NOTES 03/17/2016 Culture Urine [id number] Continued Results 03/17/2016 Urine Culture Ucult Complete [...] 32.0 pg 02/11/2016 Cbc With Differential Ord2 [place]% 9.1 % 02/11/2016 Cbc With Differential Ord2 [...] 2.59 K/ul 02/11/2016 Cbc With Differential Ord2 [place] ABS# 0.6 K/ul 02/11/2016 Cbc With Differential Ord2 Eos ABS# 0.3 K/ul 02/11/2016 Cbc With Differential Ord2 Baso ABS# 0.0 K/ul 02/11/2016 Comp Metabolic Yps370 NA 137 mEq/L 02/11/2016 Comp Metabolic Cac568 K 4.4 mEq/L 02/11/2016 Comp Metabolic Cpy948 CL 100 mEq/L 02/11/2016 Comp Metabolic Ewo151 CO2 25.0 mEq/L 02/11/2016 Comp Metabolic Oye427 ANION GAP 16 02/11/2016 Comp Metabolic Ley407 GLUCOSE 99 mg/dL 02/11/2016 Comp Metabolic Oba080 Creat 0.6 mg/dL 02/11/2016 Comp Metabolic Ach895 eGFR 99 ml/min/1.73m2 02/11/2016 Comp Metabolic Wtz265 BUN 27 mg/dL 02/11/2016 Comp Metabolic Tnw939 B/C Ratio 42.2 Ratio 02/11/2016 Comp Metabolic Kyr519 CALCIUM 9.2 mg/dL 02/11/2016 Comp Metabolic Pqz452 ALK PHOS 74 U/L 02/11/2016 Comp Metabolic Hze851 AST(SGOT) 24 U/L 02/11/2016 Comp Metabolic Xos192 ALT(SGPT) 26 U/L 02/11/2016 Comp Metabolic Fhd827 BILI T 0.5 mg/dL 02/11/2016 Comp Metabolic Tbb777 ALBUMIN 3.5 g/dL 02/11/2016 Comp Metabolic Ngz479 TPRO 6.2 g/dL 02/11/2016 Comp Metabolic Mhf058 GLOB 2.7 g/dL 02/11/2016 Comp Metabolic Pus180 A/G Ratio 1.3 Ratio 02/11/2016 Comp Metabolic Pzc335 Osmo 279 mOsmo 02/11/2016 Review of Systems [...] 1: 128/86 Code: 8480-6 BMI: 31.4 Code: 35657-8 Heart Rate 1: 72 bpm Height: 5'1" Weight: 166 lbs 06/17/2015 Blood Pressure 1: 110/78 Code: 8480-6 BMI: 33.3 Code: 88998-0 Heart Rate 1: 74 bpm Height: 5'1" [...] Present Encounters Encounter Performer Location Codes Date ([id number]) 17533 EST. PATIENT, LEVEL IV Diagnosis: Type 2 diabetes mellitus without complications[ICD10: E11.9] Diagnosis: Essential (primary) hypertension[ICD10: I10] Diagnosis: Chronic pain syndrome[ICD10: G89.4] [facility] CPT-4: 26430 01/07/2018 ([id number]) 64619 EST. PATIENT, LEVEL IV Diagnosis: Essential (primary) hypertension[ICD10: I10] Diagnosis: Type 2 diabetes mellitus without complications[ICD10: E11.9] [facility] CPT-4: 84755 2017 ([id number]) 45792 EST. PATIENT, LEVEL IV Diagnosis: Type 2 diabetes mellitus with hyperglycemia[ICD10: E11.65] Diagnosis: Essential (primary) hypertension[ICD10: I10] Diagnosis: Pain in left shoulder[ICD10: M25.512] Diagnosis: Pain in right shoulder[ICD10: M25.511] Diagnosis: Pain in left knee[ICD10: M25.562] Diagnosis: Pain in right knee[ICD10: M25.561] Vonda Everett MD, [facility] CPT- 4: 69707 09/09/2017 [id number] EST. PATIENT, LEVEL IV Diagnosis: Essential (primary) hypertension[ICD10: I10] Diagnosis: Type 2 diabetes mellitus with hyperglycemia[ICD10: E11.65] Diagnosis: Low back pain[ICD10: M54.5] Sunitha Everett MD, [facility] CPT-4: 43607 06/08/2017 ([id number]) 27885 EST. PATIENT, LEVEL IV Diagnosis: Essential (primary) hypertension[ICD10: I10] Diagnosis: Type 2 diabetes mellitus with hyperglycemia[ICD10: E11.65] Diagnosis: Low back pain[ICD10: M54.5] Sunitha Everett MD, [facility] CPT-4: 98453 04/15/2017 ([id number]) 88187 EST. PATIENT, LEVEL IV Diagnosis: Essential (primary) hypertension[ICD10: I10] Diagnosis: Type 2 diabetes mellitus with hyperglycemia[ICD10: E11.65] Diagnosis: Low back pain[ICD10: M54.5] Vonda Everett MD, [facility] CPT-4: 76602 02/16/2017 98434 EST. 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] Diagnosis: 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] Diagnosis: Dysphagia following cerebral infarction[ICD10: I69.391] 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] Diagnosis: Candidal esophagitis[ICD10: B37.81] Vonda Everett MD, [facility] CPT- 4: 93525 06/17/2015 Plan of Care Planned Activity Notes Codes Status Date Appointment: Carlyn Higginbotham WPtel: [address] [place], [place] [id number] (15 min) Moderate 02/08/2018 Visit Plan: DM -decrease levemir to 4 units daily -monitor blood sugars HPD-kmvqtssxso-dj changes Chronic pain -well controlled with fentanyl patch -no changes at this time 01/07/2018 Appointment: Carlyn Higginbotham WPtel: [address] [place], [place] [phone] (15 min) Moderate 01/07/2018 Patient Education: Patient [...] TO 8 UNITS AT HS 2017 Appointment: Calryn Higginbotham WPtel: [phone] (15 min) Moderate 2017 Patient Education: [...] 175mcg. 09/09/2017 [facility]ment[phone] ([facility] min) Moderate 09/09/2017 Patient Education: [...] record. 06/08/2017 Appointment: [phone] [place] (30 min) Complex 06/08/2017 Patient Education: [...] of over-medication. 04/15/2017 Appointment: Sunitha Patel WPtel: [facility] (30 min) [facility] 04/15/2017 Patient Education: Patient Medication Summary [...] today. 02/16/2017 App[facility]ment[phone] [facility] (15 min) Moderate 02/16/2017 Patient Education: [...] concerns. 11/09/2016 Appointment: Sunitha Patel WPtel: [phone] [facility] (30 min) Complex 11/09/2016 Patient Education: Patient Medication Summary Completed 11/09/2016 Care Plan: Referral Order SNOMED-CT : [id number] Pending 11/09/2016 Patient Education: Patient Medication Summary [...] Follow up weight in 1 month Neck acds-dhgxynrdojz-Cvzw PT focus neck/upper body Right earache-cerumen removed with water pick today in the office 07/18/2015 Appointment: (30 min) Complex 07/18/2015 Patient Education: Patient Medication Summary Completed 07/18/2015 Patient Education: Obesity Completed 07/18/2015 Patient Education: .Cervicalgia Neck Pain Completed 07/18/2015 [phone] [facility] Referral Completed 06/25/2015 Visit Plan: Hypertension [...] normal liver response to medications. [facility] - left sided weakness, neck stiffness, upper extremity weakness Diabetes Mellitus - controlled - per family report - check labs this week, get report from and [facility]. I spent over an hour with the patient in direct contact. 06/17/2015 Appointment: Vonda Everett WPtel: [phone] [facility] New Patient 06/17/2015 Patient Education: Patient Medication Summary Completed 06/17/2015 Patient Education: Obesity Completed 06/17/2015 Patient Education: Hypertension Completed 06/17/2015 Care Plan: Referral Order SNOMED-CT : [id number] Ordered 06/17/2015 Referral: Jorge Luis Carroll Referral Initiated Referral: [facility] WPtel: [phone] [facility] Referral Appointment Requested Instructions Comment . Hypertension [...] normal liver response to medications. referral to [facility] physical [facility] occupational therapy for post stroke - left sided weakness, neck stiffness, upper extremity weakness Diabetes Mellitus - controlled - per family report - check labs this week, get report from and [facility]. I spent over an hour with [...] Follow up weight in 1 month Neck xskg-jqttggccegw-Qkvm PT focus neck/upper body Right earache-cerumen removed [...] to 4 units daily -monitor blood sugars URY-ucarwlzsbm-il changes Chronic pain -well controlled with fentanyl [...]
--- OUTSIDE RECORDS SUMMARY | 2018-08-09 12:22 | XMS REPORT | CCD ---
Author Author Vonda Everett Organization Vonda Everett MD, [facility] Address [address] [place] [address] Phone Care Team Providers Care Svp Business Development Name Role Phone PP Unavailable CCM Unavailable Summary Purpose Interface Exchange Insurance Providers Payer name Policy type / Coverage type Covered alliance party ID Effective Begin Date Effective End Date WPS Medicare Part B Medicare Part B [id number] Unknown Unknown [employer] Medicare Part B [id number] Unknown Unknown Family history Father Diagnosis Age At Onset Arthritis Unknown Hypertension Unknown Mother Diagnosis Age At Onset Diabetes mellitus Type 2 Unknown Depression Unknown Arthritis Unknown Stroke Unknown Hypertension Unknown Sister Diagnosis Age At Onset Colon cancer Unknown Social History Social History Element Codes Description Effective Dates Marital status Unknown Maurice 01/07/2018 Living arrangements Unknown Prison [facility] 04/15/2017 Number of children Unknown 3 06/17/2015 Employment Unknown Retired 06/17/[address]: 6369271 Quit over 10 years ago 15+ 06/17/[address]: 230660863 Never drinks alcohol 06/17/2015 Allergies, Adverse Reactions, [...] Instructions hyoscyamine 0.125 mg disintegrating tablet RxNorm: 3813737 Tablet(s) 1-2 Tablet(s) PO Q8 as needed 02/08/2018 No Stop Date Active fentanyl 100 mcg/hr transdermal patch RxNorm: 891758 1 Patch TD Q72H 02/04/2018 03/05/2018 Active hydrocodone 10 mg-acetaminophen 325 mg tablet RxNorm: 347157 2 Tablet(s) PO scheduled TID 02/04/2018 No Stop Date Active Not to exceed 3gm/24hr acetaminophen Duragesic 75 mcg/hr transdermal patch RxNorm: 505768 1 Patch TD Q72H 02/04/2018 No Stop Date Active Levemir FlexTouch U-100 Insulin 100 unit/mL (3 mL) subcutaneous pen RxNorm: 121358 4 Unit(s) SQ QHS 01/07/2018 No Stop Date Active Duragesic 75 mcg/hr transdermal patch RxNorm: 657218 1 Patch TD Q72H 01/07/2018 02/03/2018 Inactive fentanyl 100 mcg/hr transdermal patch RxNorm: 273451 1 Patch TD Q72H 01/07/2018 02/03/2018 Inactive hydrocodone 10 mg-acetaminophen 325 mg tablet RxNorm: 725661 2 Tablet(s) PO scheduled TID 01/05/2018 02/03/2018 Inactive Not to exceed 3gm/24hr acetaminophen hydrocodone 10 mg-acetaminophen 325 mg tablet RxNorm: 251483 2 Tablet(s) PO scheduled TID and 1 tab q 4 as needed 01/04/2018 01/04/2018 Inactive Not to exceed 3gm/24hr acetaminophen cyanocobalamin (vit B-12) 1,000 mcg tablet RxNorm: 113827 1 Tablet(s) PO daily 12/28/2017 11/22/2018 Active baclofen 10 mg tablet RxNorm: 531297 Tablet(s) TAKE 1 TABLET THREE TIMES DAILY VIA STOMACH TUBE 12/27/2017 05/25/2018 Active 10/07/2017 5:36:15 PM 10/07/2017 5:36:13 PM N O T I C E Last quantity doesn't match original quantity Duragesic 75 mcg/hr transdermal patch RxNorm: 938328 1 Patch TD Q72H 12/22/2017 01/06/2018 Inactive fentanyl 100 mcg/hr transdermal patch RxNorm: 989752 1 Patch TD Q72H 12/22/2017 01/06/2018 Inactive hydrocodone 10 mg-acetaminophen 325 mg tablet RxNorm: 978798 2 Tablet(s) PO scheduled TID and 1 tab q 4 as needed 12/20/2017 01/03/2018 Inactive Not to exceed 3gm/24hr acetaminophen hyoscyamine 0.125 mg disintegrating tablet RxNorm: 9990839 1-2 Tablet(s) PO Q8 as needed 12/14/2017 02/07/2018 Inactive Duragesic 75 mcg/hr transdermal patch RxNorm: 426774 1 Patch TD Q72H 12/06/2017 12/21/2017 Inactive fentanyl 100 mcg/hr transdermal patch RxNorm: 515063 1 Patch TD Q72H 12/06/2017 12/21/2017 Inactive hydrocodone 10 mg-acetaminophen 325 mg tablet RxNorm: 509032 2 Tablet(s) PO scheduled TID and 1 tab q 4 as needed 11/29/2017 12/19/2017 Inactive Not to exceed 3gm/24hr acetaminophen Duragesic 75 mcg/hr transdermal patch RxNorm: 884858 1 Patch TD Q72H 11/11/2017 12/05/2017 Inactive hydrocodone 10 mg-acetaminophen 325 mg tablet RxNorm: 347317 2 Tablet(s) PO scheduled TID and 1 tab q 4 as needed 11/09/2017 11/28/2017 Inactive Not to exceed 3gm/24hr acetaminophen Levemir FlexTouch U-100 Insulin 100 unit/mL (3 mL) subcutaneous pen RxNorm: 655119 8 Unit(s) SQ QHS 11/09/2017 01/06/2018 Inactive fentanyl 100 mcg/hr transdermal patch RxNorm: 335285 1 Patch TD Q72H 2017 12/05/2017 Inactive hyoscyamine 0.125 mg disintegrating tablet RxNorm: 0828754 1-2 Tablet(s) PO Q8 as needed 11/03/2017 12/13/2017 Inactive carvedilol 3.125 mg tablet RxNorm: 800788 GIVE 1 TABLET VIA PEG TUBE 2 TIMES A DAY 10/22/2017 01/19/2018 Inactive Generic For:COREG 3.125MG 10/22/2017 9:23:30 AM hydrocodone 10 mg-acetaminophen 325 mg tablet RxNorm: 444873 2 Tablet(s) PO scheduled TID and 1 tab q 4 as needed 10/22/2017 2017 Inactive Not to exceed 3gm/24hr acetaminophen fentanyl 100 mcg/hr transdermal patch RxNorm: 451779 1 Patch TD Q72H 10/20/2017 11/07/2017 Inactive Duragesic 75 mcg/hr transdermal patch RxNorm: 400743 1 Patch TD Q72H 10/20/2017 11/10/2017 Inactive lorazepam 0.5 mg tablet RxNorm: 462182 1 Tablet(s) PO BID and 1 tab q 6 hours prn 10/18/2017 No Stop Date Active baclofen 10 mg tablet RxNorm: 103401 TAKE 1 TABLET THREE TIMES DAILY VIA STOMACH TUBE 10/07/2017 12/26/2017 Inactive 10/07/2017 5:36:15 PM 10/07/2017 5:36:13 PM N O T I C E Last quantity doesn't match original quantity cranberry extract 500 mg tablet RxNorm: 8253885 1 Tablet(s) PO QAM 10/04/2017 01/31/2018 Inactive Cipro 500 mg tablet RxNorm: 101454 1 Tablet(s) PO BID 10/04/2017 10/03/2017 Inactive dc keflex hydrocodone 10 mg-acetaminophen 325 mg tablet RxNorm: 660384 2 Tablet(s) PO scheduled TID as needed 10/04/2017 10/21/2017 Inactive Not to exceed 3gm/24hr acetaminophen cranberry extract 500 mg tablet RxNorm: 7960751 1 Tablet(s) PO QAM 10/04/2017 10/03/2017 Inactive Cipro 500 mg tablet RxNorm: 464087 1 Tablet(s) PO BID 10/04/2017 10/10/2017 Inactive dc keflex Duragesic 75 mcg/hr transdermal patch RxNorm: 075271 1 Patch TD Q72H 09/20/2017 10/19/2017 Inactive fentanyl 100 mcg/hr transdermal patch RxNorm: 072166 1 Patch TD Q72H 09/20/2017 10/19/2017 Inactive hyoscyamine 0.125 mg disintegrating tablet RxNorm: 7012124 1 Tablet(s) PO TID and 1 Tablet Q4H prn increased secretions 09/15/2017 11/02/2017 Inactive hydrocodone 10 mg-acetaminophen 325 mg tablet RxNorm: 685777 2 Tablet(s) PO scheduled TID and 1-2 Tabs Q4H PRN pain 09/15/2017 10/03/2017 Inactive Not to exceed 3gm/24hr acetaminophen lorazepam 0.5 mg tablet RxNorm: 070531 1 Tablet(s) PO BID 09/15/2017 10/17/2017 Inactive Lexapro 10 mg tablet RxNorm: 157401 1 Tablet(s) PO daily 09/10/2017 09/14/2017 Inactive lisinopril 10 mg tablet RxNorm: 115144 1 Tablet(s) PO daily 09/09/2017 06/05/2018 Active Levemir FlexTouch U-100 Insulin 100 unit/mL (3 mL) subcutaneous pen RxNorm: 739501 10 Unit(s) daily 09/09/2017 09/15/2017 Inactive Duragesic 75 mcg/hr transdermal patch RxNorm: 622024 1 Patch TD Q72H 09/09/2017 09/19/2017 Inactive nystatin 100,000 unit/gram topical cream RxNorm: 861051 1 Gram(s) TOP TID until healed to gaulding 09/06/2017 01/03/2018 Inactive nystatin 100,000 unit/gram topical cream RxNorm: 976919 1 Gram(s) TOP TID until healed to gaulding 09/06/2017 09/05/2017 Inactive hydrocodone 10 mg-acetaminophen 325 mg tablet RxNorm: 929676 2 Tablet(s) PO scheduled TID as needed 08/31/2017 09/14/2017 Inactive Not to exceed 3gm/24hr acetaminophen fentanyl 100 mcg/hr transdermal patch RxNorm: 120651 1 Patch TD Q72H 08/24/2017 09/19/2017 Inactive fentanyl 50 mcg/hr transdermal patch RxNorm: 449991 1 Patch TD Q72H 08/24/2017 09/08/2017 Inactive fentanyl 25 mcg/hr transdermal patch RxNorm: 841642 1 Patch TD Q72H 08/24/2017 08/24/2017 Inactive hyoscyamine 0.125 mg disintegrating tablet RxNorm: 2629901 Tablet(s) 1-2 Tablet(s) PO Q8 as needed 08/23/2017 09/14/2017 Inactive hydrocodone 10 mg-acetaminophen 325 mg tablet RxNorm: 924615 1 Tablet(s) PO scheduled TID et Q6 hours as needed 08/18/2017 08/30/2017 Inactive Not to exceed 3gm/24hr acetaminophen hydrochlorothiazide 25 mg tablet RxNorm: 809233 GIVE 1 TABLET VIA PEG TUBE ONCE DAILY 08/17/2017 02/12/2018 Inactive Generic For:HYDRODIURIL 25 MG TABLET 08/17/2017 9:01:54 AM08/11/2017 10:12:00 AM lorazepam 0.5 mg tablet RxNorm: 134029 1/2 Tablet(s) PO BID 08/03/2017 09/14/2017 Inactive fentanyl 100 mcg/hr transdermal patch RxNorm: 223567 1 Patch TD Q72H 07/26/2017 08/23/2017 Inactive fentanyl 25 mcg/hr transdermal patch RxNorm: 441160 1 Patch TD Q72H 07/26/2017 08/23/2017 Inactive hydrocodone 10 mg-acetaminophen 325 mg tablet RxNorm: 218220 1 Tablet(s) PO scheduled TID et Q6 hours as needed 07/16/2017 08/14/2017 Inactive Not to exceed 3gm/24hr acetaminophen hyoscyamine 0.125 mg disintegrating tablet RxNorm: 6473954 Tablet(s) 1-2 Tablet(s) PO Q8 as needed 07/13/2017 08/01/2017 Inactive baclofen 10 mg tablet RxNorm: 159640 TAKE 1 TABLET THREE TIMES DAILY VIA STOMACH TUBE 07/12/2017 10/06/2017 Inactive 07/12/2017 9:04:08 AM N O T I C E Last quantity doesn't match original quantity lorazepam 0.5 mg tablet RxNorm: 989379 1/2 Tablet(s) PO BID 07/02/2017 08/02/2017 Inactive fentanyl 100 mcg/hr transdermal patch RxNorm: 160429 1 Patch TD Q72H 06/28/2017 07/25/2017 Inactive fentanyl 25 mcg/hr transdermal patch RxNorm: 689703 1 Patch TD Q72H 06/28/2017 07/25/2017 Inactive hyoscyamine 0.125 mg disintegrating tablet RxNorm: 1341810 Tablet(s) 1-2 Tablet(s) PO Q8 as needed 06/03/2017 06/22/2017 Inactive fentanyl 25 mcg/hr transdermal patch RxNorm: 492622 1 Patch TD Q72H 05/26/2017 06/24/2017 Inactive Levemir FlexTouch U-100 Insulin 100 unit/mL (3 mL) subcutaneous pen RxNorm: 554213 20 Unit(s) SQ BID 05/26/2017 09/08/2017 Inactive fentanyl 100 mcg/hr transdermal patch RxNorm: 008721 1 Patch TD Q72H 05/26/2017 06/24/2017 Inactive hydrocodone 10 mg-acetaminophen 325 mg tablet RxNorm: 049005 1 Tablet(s) PO scheduled BID et Q6 hours as needed 05/12/2017 05/11/2017 Inactive hydrocodone 10 mg-acetaminophen 325 mg tablet RxNorm: 983769 1 Tablet(s) PO scheduled TID et Q6 hours as needed 05/12/2017 06/10/2017 Inactive Not to exceed 3gm/24hr acetaminophen docusate sodium 100 mg tablet RxNorm: 5153865 1 Tablet(s) PO BID as needed if no bowel movement 05/10/2017 05/09/2017 Inactive lisinopril 20 mg tablet RxNorm: 448254 1 Tablet(s) PO daily 05/10/2017 09/08/2017 Inactive docusate sodium 100 mg tablet RxNorm: 8529066 1 Tablet(s) PO BID as needed if no bowel movement 05/10/2017 09/14/2017 Inactive fentanyl 25 mcg/hr transdermal patch RxNorm: 077705 1 Patch TD Q72H 05/03/2017 05/25/2017 Inactive lorazepam 0.5 mg tablet RxNorm: 912921 1/2 Tablet(s) PO BID 05/03/2017 07/01/2017 Inactive fentanyl 100 mcg/hr transdermal patch RxNorm: 659736 1 Patch TD Q72H 04/27/2017 05/25/2017 Inactive carvedilol 3.125 mg tablet RxNorm: 800550 Tablet(s) GIVE 1 TABLET VIA PEG TUBE DAILY 04/15/2017 10/21/2017 Inactive Levemir FlexTouch 100 unit/mL (3 mL) subcutaneous insulin pen RxNorm: 587600 10 Unit(s) SQ BID 04/15/2017 2017 Inactive hyoscyamine 0.125 mg disintegrating tablet RxNorm: 6700978 1-2 Tablet(s) PO Q8 as needed 04/14/2017 05/03/2017 Inactive hydrocodone 10 mg-acetaminophen 325 mg tablet RxNorm: 301231 1 Tablet(s) PO scheduled BID et Q6 hours as needed 04/13/2017 05/02/2017 Inactive baclofen 10 mg tablet RxNorm: 436383 TAKE 1 TABLET THREE TIMES DAILY VIA STOMACH TUBE 04/08/2017 05/22/2017 Inactive 04/08/2017 9:32:07 AM fentanyl 25 mcg/hr transdermal patch RxNorm: 678163 1 Patch TD Q72H 04/05/2017 05/02/2017 Inactive lidocaine 10 mg/mL (1 %) injection solution RxNorm: 4269775 1 Milliliter(s) Inj daily Mix with rocephin 03/31/2017 03/30/2017 Inactive Pt resides at [facility] lidocaine 10 mg/mL (1 %) injection solution RxNorm: 8764191 1 Milliliter(s) Inj daily Mix with rocephin 03/31/2017 04/06/2017 Inactive Pt resides at [facility] fentanyl 100 mcg/hr transdermal patch RxNorm: 155638 1 Patch TD Q72H 03/29/2017 04/26/2017 Inactive nystatin 100,000 unit/gram topical powder RxNorm: 744683 APPLY UNDER BREASTS TWICE DAILY FOR YEAST SKIN INFECTION AND APPLY TO UNDERARM AND ABDOMINAL FOLDS AND PERIAREA TWICE DAILY 03/29/2017 03/28/2017 Inactive 03/27/2017 9:12:50 AM nystatin 100,000 unit/gram topical powder RxNorm: 789107 APPLY UNDER BREASTS TWICE DAILY FOR YEAST SKIN INFECTION AND APPLY TO UNDERARM AND ABDOMINAL FOLDS AND PERIAREA TWICE DAILY 03/29/2017 09/14/2017 Inactive 03/29/2017 9:42:55 AM03/27/2017 9:12:50 AM hyoscyamine 0.125 mg disintegrating tablet RxNorm: 5295987 1-2 Tablet(s) PO Q8 as needed 03/08/2017 03/27/2017 Inactive fentanyl 25 mcg/hr transdermal patch RxNorm: 200377 1 Patch TD Q72H 03/02/2017 03/31/2017 Inactive hydrocodone 10 mg-acetaminophen 325 mg tablet RxNorm: 412538 1 Tablet(s) PO scheduled BID et Q6 hours as needed 02/17/2017 03/18/2017 Inactive fentanyl 100 mcg/hr transdermal patch RxNorm: 818403 1 Patch TD Q72H 02/17/2017 03/18/2017 Inactive Lexapro 10 mg tablet RxNorm: 040994 1 Tablet(s) PO daily 02/05/2017 04/14/2017 Inactive Lexapro 10 mg tablet RxNorm: 728331 1 Tablet(s) PO daily 02/05/2017 02/04/2017 Inactive fentanyl 25 mcg/hr transdermal patch RxNorm: 937613 1 Patch TD Q72H 02/04/2017 03/01/2017 Inactive cyanocobalamin (vit B-12) 1,000 mcg tablet RxNorm: 900109 1 Tablet(s) PO daily 01/18/2017 12/13/2017 Inactive hyoscyamine 0.125 mg disintegrating tablet RxNorm: 0344897 Tablet(s) 1-2 Tablet(s) PO Q8 as needed 01/18/2017 02/06/2017 Inactive baclofen 10 mg tablet RxNorm: 225921 TAKE 1 TABLET THREE TIMES DAILY VIA STOMACH TUBE 01/04/2017 02/17/2017 Inactive 01/04/2017 9:25:18 AM fentanyl 100 mcg/hr transdermal patch RxNorm: 734846 1 Patch TD Q72H 12/25/2016 01/23/2017 Inactive hydrochlorothiazide 25 mg tablet RxNorm: 048283 Tablet(s) GIVE 1 TABLET VIA PEG TUBE ONCE A DAY 12/14/2016 07/11/2017 Inactive fentanyl 100 mcg/hr transdermal patch RxNorm: 876713 1 Patch TD Q72H 11/25/2016 12/24/2016 Inactive hyoscyamine 0.125 mg disintegrating tablet RxNorm: 3154698 Tablet(s) 1-2 Tablet(s) PO Q8 as needed 11/25/2016 12/14/2016 Inactive nystatin 100,000 unit/gram topical powder RxNorm: 951939 APPLY UNDER BREASTS TWICE DAILY FOR YEAST SKIN INFECTION AND APPLY TO UNDERARM AND ABDOMINAL FOLDS AND PERIAREA TWICE DAILY 11/24/2016 01/22/2017 Inactive 11/24/2016 9:34:02 AM hydrocodone 10 mg-acetaminophen 325 mg tablet RxNorm: 279978 1 Tablet(s) PO scheduled BID et Q6 hours as needed 11/02/2016 12/01/2016 Inactive cyanocobalamin (vit B-12) 1,000 mcg tablet RxNorm: 056000 1 Tablet(s) PO daily 11/02/2016 01/17/2017 Inactive hyoscyamine 0.125 mg disintegrating tablet RxNorm: 5195100 1-2 Tablet(s) PO Q8 as needed 10/19/2016 11/24/2016 Inactive fentanyl 100 mcg/hr transdermal patch RxNorm: 665709 1 Patch TD Q72H 10/13/2016 11/11/2016 Inactive hydrocodone 10 mg-acetaminophen 325 mg tablet RxNorm: 870582 1 Tablet(s) PO scheduled BID et Q6 hours as needed 10/05/2016 11/01/2016 Inactive baclofen 10 mg tablet RxNorm: 568725 TAKE 1 TABLET THREE TIMES DAILY VIA STOMACH TUBE 10/01/2016 11/14/2016 Inactive 10/01/2016 9:24:37 AM carvedilol 3.125 mg tablet RxNorm: 142822 GIVE 1 TABLET VIA PEG TUBE 2 TIMES A DAY 09/30/2016 12/28/2016 Inactive Generic For:COREG 3.125MG 09/30/2016 1:12:28 PM09/25/2016 9:06:11 AM Probiotic Blend 2 million cell-50 mg capsule RxNorm: 1 Capsule(s) PO BID 09/17/2016 09/23/2016 Inactive Keflex 500 mg capsule RxNorm: 583428 1 Capsule(s) PO TID 09/17/2016 09/23/2016 Inactive hyoscyamine 0.125 mg/5 mL oral elixir RxNorm: 1252616 5 Milliliter(s) PO TID 09/08/2016 09/17/2016 Inactive hyoscyamine 0.125 mg/5 mL oral elixir RxNorm: 4837589 5 Milliliter(s) PO TID 09/08/2016 09/07/2016 Inactive hyoscyamine 0.125 mg disintegrating tablet RxNorm: 0767478 1-2 Tablet(s) PO Q8 as needed 09/07/2016 10/18/2016 Inactive fentanyl 100 mcg/hr transdermal patch RxNorm: 047248 1 Patch TD Q72H 09/01/2016 09/30/2016 Inactive ranitidine 150 mg tablet RxNorm: 261390 1 Tablet(s) PO BID 08/25/2016 No Stop Date Active hydrocodone 10 mg-acetaminophen 325 mg tablet RxNorm: 801867 1 Tablet(s) PO scheduled BID et Q6 hours as needed 08/24/2016 09/22/2016 Inactive cyanocobalamin (vit B-12) 1,000 mcg tablet RxNorm: 886116 1 Tablet(s) PO daily 08/12/2016 11/01/2016 Inactive cyanocobalamin (vit B-12) 1,000 mcg tablet RxNorm: 695959 1 Tablet(s) PO daily 08/12/2016 08/11/2016 Inactive hydrocodone 10 mg-acetaminophen 325 mg tablet RxNorm: 374658 1-2 Tablet(s) PO Q6 as needed 08/03/2016 08/17/2016 Inactive fentanyl 100 mcg/hr transdermal patch RxNorm: 612659 1 Patch TD Q72H 08/03/2016 08/31/2016 Inactive nystatin 100,000 unit/gram topical powder RxNorm: 374822 APPLY UNDER BREASTS TWICE DAILY FOR YEAST SKIN INFECTION AND APPLY TO UNDERARM AND ABDOMINAL FOLDS AND PERIAREA TWICE DAILY 07/17/2016 09/14/2016 Inactive 07/17/2016 3:56:54 PM fentanyl 100 mcg/hr transdermal patch RxNorm: 857685 1 Patch TD Q72H 07/15/2016 08/02/2016 Inactive lisinopril 20 mg tablet RxNorm: 816184 1 Tablet(s) PO daily 07/02/2016 03/28/2017 Inactive hydrocodone 10 mg-acetaminophen 325 mg tablet RxNorm: 232677 1-2 Tablet(s) PO Q6 as needed 07/01/2016 07/15/2016 Inactive Xarelto 20 mg tablet RxNorm: 2829014 Tablet(s) TAKE 1 TABLET VIA PEG TUBE AT BEDTIME 06/19/2016 04/14/2017 Inactive fentanyl 100 mcg/hr transdermal patch RxNorm: 632906 1 Patch TD Q72H 06/17/2016 07/14/2016 Inactive nystatin 100,000 unit/gram topical powder RxNorm: 018657 APPLY TO UNDER BREASTS TWICE DAILY FOR YEAST SKIN INFECTION AND APPLY TO UNDERARM AND ABDOMINAL FOLDS AND PERIAREA TWICE DAILY 06/15/2016 07/16/2016 Inactive Generic For:MYCOSTATIN 100,000 UNITS/GM PW 06/15/2016 12:28:26 PM fentanyl 100 mcg/hr transdermal patch RxNorm: 493089 1 Patch TD Q72H 06/05/2016 06/16/2016 Inactive hydrocodone 10 mg-acetaminophen 325 mg tablet RxNorm: 566389 1-2 Tablet(s) PO Q6 as needed 06/02/2016 06/16/2016 Inactive Probiotic Blend 2 million cell-50 mg capsule RxNorm: 1 Capsule(s) PO BID 05/13/2016 05/19/2016 Inactive nitrofurantoin 100 mg capsule RxNorm: 211882 1 Capsule(s) PO BID 05/13/2016 05/19/2016 Inactive nitrofurantoin 100 mg capsule RxNorm: 798696 1 Capsule(s) PO BID 05/13/2016 05/12/2016 Inactive fentanyl 75 mcg/hr transdermal patch RxNorm: 936532 1 Patch TD Q72H 05/13/2016 06/04/2016 Inactive Keflex 500 mg capsule RxNorm: 662432 1 Capsule(s) PO TID 05/07/2016 05/13/2016 Inactive Patient at [facility] Keflex 500 mg capsule RxNorm: 414253 1 Capsule(s) PO TID 05/07/2016 05/06/2016 Inactive hydrocodone 10 mg-acetaminophen 325 mg tablet RxNorm: 424680 1-2 Tablet(s) PO Q6 as needed 05/04/2016 06/01/2016 Inactive hydrochlorothiazide 25 mg tablet RxNorm: 985427 Tablet(s) GIVE 1 TABLET VIA PEG TUBE ONCE A DAY 04/29/2016 11/24/2016 Inactive hydrochlorothiazide 25 mg tablet RxNorm: 196488 GIVE 1 TABLET VIA PEG TUBE ONCE A DAY 04/22/2016 04/28/2016 Inactive Generic For:HYDRODIURIL 25 MG TABLET refill request fentanyl 75 mcg/hr transdermal patch RxNorm: 288132 1 Patch TD Q72H 04/17/2016 05/12/2016 Inactive Xarelto 20 mg tablet RxNorm: 4507004 TAKE 1 TABLET VIA PEG TUBE AT BEDTIME 04/16/2016 06/14/2016 Inactive 04/16/2016 9:08:52 AM citalopram 40 mg tablet RxNorm: 072821 1 Tablet(s) PO daily 04/02/2016 02/25/2017 Inactive citalopram 40 mg tablet RxNorm: 554827 1 Tablet(s) PO daily 03/27/2016 04/01/2016 Inactive hydrocodone 10 mg-acetaminophen 325 mg tablet RxNorm: 317110 1-2 Tablet(s) PO Q6 as needed 03/27/2016 04/25/2016 Inactive fentanyl 75 mcg/hr transdermal patch RxNorm: 526142 1 Patch TD Q72H 03/18/2016 04/16/2016 Inactive hydrocodone 10 mg-acetaminophen 325 mg tablet RxNorm: 991040 1-2 Tablet(s) PO Q6 as needed 03/11/2016 03/26/2016 Inactive citalopram 40 mg tablet RxNorm: 404551 1 Tablet(s) PO daily 03/04/2016 03/26/2016 Inactive Levemir FlexTouch U-100 Insulin 100 unit/mL (3 mL) subcutaneous pen RxNorm: 979135 20 Unit(s) SQ BID 03/02/2016 09/27/2016 Inactive lisinopril 20 mg tablet RxNorm: 527302 1 Tablet(s) PO daily 02/25/2016 07/01/2016 Inactive Ativan 0.5 mg tablet RxNorm: 624141 1 Tablet(s) PO Q4H as needed 02/18/2016 04/14/2017 Inactive Xarelto 20 mg tablet RxNorm: 5224000 TAKE 1 TABLET VIA PEG TUBE AT BEDTIME 02/12/2016 04/11/2016 Inactive 02/12/2016 9:08:22 AM hydrocodone 10 mg-acetaminophen 325 mg tablet RxNorm: 549212 1-2 Tablet(s) PO Q6 as needed 02/12/2016 03/10/2016 Inactive fentanyl 75 mcg/hr transdermal patch RxNorm: 452021 1 Patch TD Q72H 02/11/2016 03/11/2016 Inactive citalopram 20 mg tablet RxNorm: 326301 1 Tablet(s) PO daily 01/28/2016 03/03/2016 Inactive fentanyl 75 mcg/hr transdermal patch RxNorm: 576426 1 TD Q72H 01/17/2016 02/10/2016 Inactive hydrocodone 10 mg-acetaminophen 325 mg tablet RxNorm: 481475 1-2 Tablet(s) PO Q6 as needed 01/07/2016 02/05/2016 Inactive fentanyl 50 mcg/hr transdermal patch RxNorm: 458117 1 TD Q72H 01/01/2016 01/16/2016 Inactive fentanyl 50 mcg/hr transdermal patch RxNorm: 000762 1 TD q 3 days 12/26/2015 12/31/2015 Inactive Xarelto 20 mg tablet RxNorm: 0978637 TAKE 1 TABLET VIA PEG TUBE AT BEDTIME 12/17/2015 02/11/2016 Inactive 12/16/2015 3:27:57 PM12/14/2015 9:45:17 AM hydrocodone 10 mg-acetaminophen 325 mg tablet RxNorm: 470321 1-2 Tablet(s) PO Q6 as needed 12/06/2015 01/04/2016 Inactive fentanyl 50 mcg/hr transdermal patch RxNorm: 387532 1 TD q 3 days 12/06/2015 12/25/2015 Inactive fentanyl 25 mcg/hr transdermal patch RxNorm: 964391 1 TD q 3 days 11/18/2015 12/05/2015 Inactive Zithromax Z-Eliu 250 mg tablet RxNorm: 417413 1 Tablet(s) PO UD 10/09/2015 02/26/2016 Inactive z pack as directed- please write out instructions- pt at [facility] nystatin 100,000 unit/gram topical powder RxNorm: 794358 APPLY TO UNDER BREASTS TWICE DAILY FOR YEAST SKIN INFECTION AND APPLY TO UNDERARM AND ABDOMINAL FOLDS AND PERIAREA TWICE DAILY 10/07/2015 12/05/2015 Inactive Generic For:MYCOSTATIN 100,000 UNITS/GM PW 10/05/2015 12:07:35 PM fentanyl 25 mcg/hr transdermal patch RxNorm: 558285 1 TD q 3 days 10/03/2015 11/01/2015 Inactive fentanyl 25 mcg/hr transdermal patch RxNorm: 665946 1 TD q 3 days 09/27/2015 10/02/2015 Inactive fentanyl 25 mcg/hr transdermal patch RxNorm: 008219 1 TD q 3 days 09/17/2015 09/26/2015 Inactive fentanyl 25 mcg/hr transdermal patch RxNorm: 673456 1 TD q 3 days 08/30/2015 09/16/2015 Inactive hydrocodone 5 mg-acetaminophen 325 mg tablet RxNorm: 487883 1 Tablet(s) PO Q6 as needed 08/30/2015 09/28/2015 Inactive Diflucan 100 mg tablet RxNorm: 775615 1 Tablet(s) Miscellaneous per peg daily 07/29/2015 08/04/2015 Inactive fentanyl 25 mcg/hr transdermal patch RxNorm: 895817 1 TD q 3 days 07/18/2015 08/29/2015 Inactive hydrocodone 5 mg-acetaminophen 325 mg tablet RxNorm: 243062 1 Tablet(s) PO Q6 as needed 07/18/2015 08/29/2015 Inactive Diflucan 100 mg tablet RxNorm: 484117 1 Tablet(s) Miscellaneous per peg daily 06/17/2015 06/23/2015 Inactive Senna-S 8.6 mg-50 mg tablet RxNorm: 406062 1 Tablet(s) PO daily as needed constipation No Start Date Active Dulcolax (bisacodyl) 10 mg rectal suppository RxNorm: 093004 1 Suppository RTL daily as needed constipation No Start Date Active albuterol sulfate concentrate 5 mg/mL(0.5 %) solution for nebulization RxNorm: 395106 1 Vial INH daily as needed congestion No Start Date Active polyethylene glycol 3350 17 gram/dose oral powder RxNorm: 980316 17 Gram(s) PO daily as needed constipation No Start Date Active baclofen 10 mg tablet RxNorm: 900411 1 Tablet(s) PO TID No Start Date 09/30/2016 Inactive Ativan 0.5 mg tablet RxNorm: 899518 1 Tablet(s) PO Q4H as needed No Start Date 02/17/2016 Inactive ranitidine 150 mg tablet RxNorm: 591107 1 Tablet(s) PO daily No Start Date 08/24/2016 Inactive carvedilol 3.125 mg tablet RxNorm: 382000 1 Tablet(s) PO daily No Start Date 09/29/2016 Inactive citalopram 40 mg tablet RxNorm: 309555 1 Tablet(s) PO daily No Start Date 01/27/2016 Inactive Probiotic Blend oral RxNorm: oral No Start Date 05/12/2016 Inactive hydrochlorothiazide 25 mg tablet RxNorm: 266359 1 Tablet(s) PO daily No Start Date 04/21/2016 Inactive Levemir FlexTouch 100 unit/mL (3 mL) subcutaneous insulin pen RxNorm: 710613 10 Unit(s) SQ BID No Start Date 03/01/2016 Inactive Zithromax Z-Eliu 250 mg tablet RxNorm: 066118 1 Tablet(s) PO UD No Start Date 10/08/2015 Inactive z pack as directed- please write out instructions- pt at [facility] nystatin 100,000 unit/gram topical powder RxNorm: 203700 Gram(s) TOP BID as needed No Start Date 10/06/2015 Inactive pravastatin 40 mg tablet RxNorm: 413072 Tablet(s) PO daily No Start Date 04/14/2017 Inactive lorazepam 0.5 mg tablet RxNorm: 290550 1/2 Tablet(s) PO BID No Start Date 05/02/2017 Inactive Xarelto 20 mg tablet RxNorm: 5455841 1 Tablet(s) PO daily No Start Date 12/16/2015 Inactive fentanyl 25 mcg/hr transdermal patch RxNorm: 603872 1 TD q 3 days No Start Date 07/17/2015 Inactive lisinopril 20 mg tablet RxNorm: 772591 1 Tablet(s) PO daily No Start Date 02/24/2016 Inactive hydrocodone 5 mg-acetaminophen 325 mg tablet RxNorm: 432050 1 Tablet(s) PO Q6 as needed No Start Date 07/17/2015 Inactive citalopram 40 mg tablet RxNorm: 603879 1 Tablet(s) PO daily No Start Date 03/03/2016 Inactive hyoscyamine 0.125 mg disintegrating tablet RxNorm: 1445509 1-2 Tablet(s) PO Q8 as needed No [...] Observation Code Item Item Code Result Date Comp Metabolic Sle226 NA 142 mEq/L 02/14/2018 Comp Metabolic Bfm306 K 4.5 mEq/L 02/14/2018 Comp Metabolic Cgo295 CL 97 mEq/L 02/14/2018 Comp Metabolic Ukq005 CO2 41.0 mEq/L 02/14/2018 Comp Metabolic Lau651 ANION GAP 9 02/14/2018 Comp Metabolic Fxo593 GLUCOSE 111 mg/dL 02/14/2018 Comp Metabolic Lph506 Creat 0.6 mg/dL 02/14/2018 Comp Metabolic Eys848 eGFR 108 ml/min/1.73m2 02/14/2018 Comp Metabolic Cwo488 BUN 32 mg/dL 02/14/2018 Comp Metabolic Zcy650 B/C Ratio 54.2 Ratio 02/14/2018 Comp Metabolic Dki032 CALCIUM 8.9 mg/dL 02/14/2018 Comp Metabolic Hjl569 ALK PHOS 81 U/L 02/14/2018 Comp Metabolic Owz787 AST(SGOT) 14 U/L 02/14/2018 Comp Metabolic Gnr192 ALT(SGPT) 11 U/L 02/14/2018 Comp Metabolic Vom369 BILI T 0.3 mg/dL 02/14/2018 Comp Metabolic Sxj675 ALBUMIN 3.4 g/dL 02/14/2018 Comp Metabolic Zay659 TPRO 6.3 g/dL 02/14/2018 Comp Metabolic Sae554 GLOB 2.9 g/dL 02/14/2018 Comp Metabolic Zvu235 A/G Ratio 1.2 Ratio 02/14/2018 Comp Metabolic Ble339 Osmo 291 mOsmo 02/14/2018 Prealbumin 300622 PREALBUMIN 27 mg/dL 11/24/2017 %Hba1C Dlk911 % HbA1c 24494- 6 5.5 % 11/04/2017 %Hba1C Osj150 Gluc Ave 111 mg/dL 11/04/2017 Culture Urine [id number] URINE CULTURE SEE NOTES 10/04/2017 Culture Urine [id number] Continued Results 10/04/2017 Urine Culture Ucult Complete [...] Ord28 U-Com Culture to follow 10/01/2017 B12 Ecz128 B12 >1500.00 pg/ml 02/19/2017 Cbc With Differential [...] 31.5 pg 02/02/2017 Cbc With Differential Ord2 [place]% 8.3 % 02/02/2017 Cbc With Differential Ord2 [...] 2.28 K/ul 02/02/2017 Cbc With Differential Ord2 [place] ABS# 0.6 K/ul 02/02/2017 Cbc With Differential Ord2 Eos ABS# 0.4 K/ul 02/02/2017 Cbc With Differential Ord2 Baso ABS# 0.0 K/ul 02/02/2017 %Hba1C Iui384 % HbA1c 37907- 6 5.2 % 02/02/2017 %Hba1C Fvh141 Gluc Ave 103 mg/dL 02/02/2017 Comp Metabolic Yyq018 NA 138 mEq/L 02/02/2017 Comp Metabolic Otb924 K 4.5 mEq/L 02/02/2017 Comp Metabolic Ada645 CL 98 mEq/L 02/02/2017 Comp Metabolic Vky831 CO2 37.0 mEq/L 02/02/2017 Comp Metabolic Wqz212 ANION GAP 8 02/02/2017 Comp Metabolic Jti340 GLUCOSE 94 mg/dL 02/02/2017 Comp Metabolic Nll230 Creat 0.7 mg/dL 02/02/2017 Comp Metabolic Hag702 eGFR 88 ml/min/1.73m2 02/02/2017 Comp Metabolic Lmu057 BUN 36 mg/dL 02/02/2017 Comp Metabolic Kuf558 B/C Ratio 50.7 Ratio 02/02/2017 Comp Metabolic Qzy230 CALCIUM 9.0 mg/dL 02/02/2017 Comp Metabolic Gou169 ALK PHOS 78 U/L 02/02/2017 Comp Metabolic Aov255 AST(SGOT) 22 U/L 02/02/2017 Comp Metabolic Hjo425 ALT(SGPT) 28 U/L 02/02/2017 Comp Metabolic Ltr056 BILI T 0.3 mg/dL 02/02/2017 Comp Metabolic Obx987 ALBUMIN 3.3 g/dL 02/02/2017 Comp Metabolic Wiu908 TPRO 5.9 g/dL 02/02/2017 Comp Metabolic Itw970 GLOB 2.6 g/dL 02/02/2017 Comp Metabolic Xzt342 A/G Ratio 1.3 Ratio 02/02/2017 Comp Metabolic Jhv650 Osmo 284 mOsmo 02/02/2017 %Hba1C Ewh370 % HbA1c 13578- 6 5.0 % 10/29/2016 %Hba1C Utk658 Gluc Ave 97 mg/dL 10/29/2016 Culture Urine [id number] URINE CULTURE SEE NOTES 09/21/2016 Culture Urine [id number] Continued Results 09/21/2016 Urine Culture Ucult Complete [...] 41.3 % 07/30/2016 Cbc With Differential Ord2 [place]% 7.2 % 07/30/2016 Cbc With Differential Ord2 [...] 2.69 K/ul 07/30/2016 Cbc With Differential Ord2 [place] ABS# 0.5 K/ul 07/30/2016 Cbc With Differential Ord2 Eos ABS# 0.5 K/ul 07/30/2016 Cbc With Differential Ord2 Baso ABS# 0.0 K/ul 07/30/2016 Comp Metabolic Dac518 NA 141 mEq/L 07/30/2016 Comp Metabolic Rgh264 K 4.3 mEq/L 07/30/2016 Comp Metabolic Rzz858 CL 100 mEq/L 07/30/2016 Comp Metabolic Qeo359 CO2 33.0 mEq/L 07/30/2016 Comp Metabolic Ogk587 ANION GAP 12 07/30/2016 Comp Metabolic Tap242 GLUCOSE 64 mg/dL 07/30/2016 Comp Metabolic Pev904 Creat 0.5 mg/dL 07/30/2016 Comp Metabolic Vrg786 eGFR 126 ml/min/1.73m2 07/30/2016 Comp Metabolic Fal761 BUN 25 mg/dL 07/30/2016 Comp Metabolic Hbw732 B/C Ratio 48.1 Ratio 07/30/2016 Comp Metabolic Zhi419 CALCIUM 8.9 mg/dL 07/30/2016 Comp Metabolic Nap921 ALK PHOS 90 U/L 07/30/2016 Comp Metabolic Vcq262 AST(SGOT) 22 U/L 07/30/2016 Comp Metabolic Xqr481 ALT(SGPT) 36 U/L 07/30/2016 Comp Metabolic Zrj926 BILI T 0.3 mg/dL 07/30/2016 Comp Metabolic Xpf274 ALBUMIN 3.4 g/dL 07/30/2016 Comp Metabolic Clz463 TPRO 6.0 g/dL 07/30/2016 Comp Metabolic Mbf216 GLOB 2.7 g/dL 07/30/2016 Comp Metabolic Zar555 A/G Ratio 1.3 Ratio 07/30/2016 Comp Metabolic Xgm091 Osmo 284 mOsmo 07/30/2016 A1C Frequency Tlu119 A1CF 24623-5 Last A1C performed at [facility] lab on: 05-12-2016 07/30/2016 %Hba1C Jgh928 % HbA1c 18453- 6 5.2 % 05/12/2016 %Hba1C Xcc438 Gluc Ave 103 mg/dL 05/12/2016 Culture Urine [id number] URINE CULTURE SEE NOTES 05/11/2016 Urine Culture [...] U-Com Culture to follow 05/06/2016 Culture Urine [id number] URINE CULTURE SEE NOTES 03/17/2016 Culture Urine [id number] Continued Results 03/17/2016 Urine Culture Ucult Complete [...] 32.0 pg 02/11/2016 Cbc With Differential Ord2 [place]% 9.1 % 02/11/2016 Cbc With Differential Ord2 [...] 2.59 K/ul 02/11/2016 Cbc With Differential Ord2 [place] ABS# 0.6 K/ul 02/11/2016 Cbc With Differential Ord2 Eos ABS# 0.3 K/ul 02/11/2016 Cbc With Differential Ord2 Baso ABS# 0.0 K/ul 02/11/2016 Comp Metabolic Kie990 NA 137 mEq/L 02/11/2016 Comp Metabolic Iuk465 K 4.4 mEq/L 02/11/2016 Comp Metabolic Dmo378 CL 100 mEq/L 02/11/2016 Comp Metabolic Lka166 CO2 25.0 mEq/L 02/11/2016 Comp Metabolic Dyl690 ANION GAP 16 02/11/2016 Comp Metabolic Poz536 GLUCOSE 99 mg/dL 02/11/2016 Comp Metabolic Ykl004 Creat 0.6 mg/dL 02/11/2016 Comp Metabolic Idh470 eGFR 99 ml/min/1.73m2 02/11/2016 Comp Metabolic Uow711 BUN 27 mg/dL 02/11/2016 Comp Metabolic Qly707 B/C Ratio 42.2 Ratio 02/11/2016 Comp Metabolic Vaj838 CALCIUM 9.2 mg/dL 02/11/2016 Comp Metabolic Lxq650 ALK PHOS 74 U/L 02/11/2016 Comp Metabolic Bqm054 AST(SGOT) 24 U/L 02/11/2016 Comp Metabolic Kno890 ALT(SGPT) 26 U/L 02/11/2016 Comp Metabolic Mzq479 BILI T 0.5 mg/dL 02/11/2016 Comp Metabolic Dnw691 ALBUMIN 3.5 g/dL 02/11/2016 Comp Metabolic Jdm438 TPRO 6.2 g/dL 02/11/2016 Comp Metabolic Edo647 GLOB 2.7 g/dL 02/11/2016 Comp Metabolic Wpd190 A/G Ratio 1.3 Ratio 02/11/2016 Comp Metabolic Hxg787 Osmo 279 mOsmo 02/11/2016 Review of Systems [...] 1: 128/86 Code: 8480-6 BMI: 31.4 Code: 97604-0 Heart Rate 1: 72 bpm Height: 5'1" Weight: 166 lbs 06/17/2015 Blood Pressure 1: 110/78 Code: 8480-6 BMI: 33.3 Code: 28955-6 Heart Rate 1: 74 bpm Height: 5'1" [...] Present Encounters Encounter Performer Location Codes Date ([id number]) 23145 EST. PATIENT, LEVEL IV Diagnosis: Type 2 diabetes mellitus without complications[ICD10: E11.9] Diagnosis: Essential (primary) hypertension[ICD10: I10] Diagnosis: Chronic pain syndrome[ICD10: G89.4] Carlyn Everett MD, [facility] CPT-4: 83524 01/07/2018 ([id number]) 23348 EST. PATIENT, LEVEL IV Diagnosis: Essential (primary) hypertension[ICD10: I10] Diagnosis: Type 2 diabetes mellitus without complications[ICD10: E11.9] Carlyn Everett MD, [facility] CPT-4: 26104 2017 ([id number]) 67205 EST. PATIENT, LEVEL IV Diagnosis: Type 2 diabetes mellitus with hyperglycemia[ICD10: E11.65] Diagnosis: Essential (primary) hypertension[ICD10: I10] Diagnosis: Pain in left shoulder[ICD10: M25.512] Diagnosis: Pain in right shoulder[ICD10: M25.511] Diagnosis: Pain in left knee[ICD10: M25.562] Diagnosis: Pain in right knee[ICD10: M25.561] Vonda Everett MD, [facility] CPT- 4: 36638 09/09/2017 06751 EST. PATIENT, LEVEL IV Diagnosis: Essential (primary) hypertension[ICD10: I10] Diagnosis: Type 2 diabetes mellitus with hyperglycemia[ICD10: E11.65] Diagnosis: Low back pain[ICD10: M54.5] Sunitha Everett MD, [facility] CPT-4: 88441 06/08/2017 ([id number]) 23262 EST. PATIENT, LEVEL IV Diagnosis: Essential (primary) hypertension[ICD10: I10] Diagnosis: Type 2 diabetes mellitus with hyperglycemia[ICD10: E11.65] Diagnosis: Low back pain[ICD10: M54.5] Sunitha Everett MD, [facility] CPT-4: 60647 04/15/2017 ([id number]) 54824 EST. PATIENT, LEVEL IV Diagnosis: Essential (primary) hypertension[ICD10: I10] Diagnosis: Type 2 diabetes mellitus with hyperglycemia[ICD10: E11.65] Diagnosis: Low back pain[ICD10: M54.5] Vonda Everett MD, [facility] CPT-4: 39313 02/16/2017 28333 EST. 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] Diagnosis: Ataxia following cerebral infarction[ICD10: I69.393] Diagnosis: 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] Diagnosis: Dysphagia following cerebral infarction[ICD10: I69.391] 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] Diagnosis: Candidal esophagitis[ICD10: B37.81] Vonda Everett MD, [facility] CPT- 4: 19310 06/17/2015 Plan of Care Planned Activity Notes Codes Status Date Appointment: Carlyn Higginbotham WPtel: [facility] [place] [address] (15 min) Moderate 02/08/2018 Visit Plan: DM -decrease levemir to 4 units daily -monitor blood sugars IJR-vprqffxdol-qw changes Chronic pain -well controlled with fentanyl patch -no changes at this time 01/07/2018 Appointment: Carlyn Higginbotham WPtel: [address] [place], [place] [phone] (15 min) Moderate 01/07/2018 Patient Education: Patient [...] AT HS 2017 Appointment: Carlyn Higginbotham WPtel: [phone] [phone] [place] (15 min) Moderate 2017 Patient [...] 175mcg. 09/09/2017 Appointment: Vonda Everett WPtel: [phone] [facility] [place] (15 min) Moderate 09/09/2017 Patient Education: [...] WPtel: [phone] [facility] (30 min) Complex 06/08/2017 Patient Education: Patient [...] [id number] (30 min) Complex 04/15/2017 Patient Education: Patient [...] 02/16/2017 [phone] (15 min) Moderate 02/16/2017 Patient Education: [...] concerns. 11/09/2016 Appointment: Sunith[facility] Patel [id number] (30 min) Complex 11/09/2016 Patient Education: Patient Medication Summary Completed 11/09/2016 Care Plan: Referral Order SNOMED-CT : [id number] Pending 11/09/2016 Patient Education: Patient Medication Summary [...] Follow up weight in 1 month Neck qkhb-xurrbccsgxt-Xnqo PT focus neck/upper body Right earache-cerumen removed with water pick today in the office 07/18/2015 Appointment: (30 min) Complex 07/18/2015 Patient Education: Patient Medication Summary Completed 07/18/2015 Patient Education: Obesity Completed 07/18/2015 Patient Education: .Cervicalgia Neck Pain Completed 07/18/2015 [facility]: [facility] WPtel: [phone] [facility] Referral Completed 06/25/2015 Visit Plan: Hypertension [...] liver response to medications. referral to [facility] for post stroke - left sided weakness, neck stiffness, upper extremity weakness Diabetes Mellitus - controlled - per family report - check labs this week, get report from and [facility]. I spent over an hour with the patient in direct contact. 06/17/2015 Appointment: Vonda Everett WPtel: [phone] [facility] New Patient 06/17/2015 Patient Education: Patient Medication Summary Completed 06/17/2015 Patient Education: Obesity Completed 06/17/2015 Patient Education: Hypertension Completed 06/17/2015 Care Plan: Referral Order SNOMED-CT : [id number] Ordered 06/17/2015 Referral: Jorge Luis Carroll Referral Initiated Referral: [facility] physical therapy WPtel: [phone] [facility] Referral Appointment Requested Instructions Comment . [...] liver response to medications. referral to [facility] for post stroke - left sided weakness, neck stiffness, upper extremity weakness Diabetes Mellitus - controlled - per family report - check labs this week, get report from and [facility]. I spent over an hour with the patient in direct contact. . PEG tube - tube has not been replaced in some time, some mild irritation noted around the tube - will refer to surgeon for PEG tube replacement. Pt/family is to notify clinic with any changes, questions, or concerns. Add 1 scoop of whey protein from [facility] to 2 feedings per day [...] Follow up weight in 1 month Neck ffhm-wdpgzvloble-Uebv PT focus neck/upper body Right earache-cerumen removed [...] to 4 units daily -monitor blood sugars KDL-dlzpflnfeg-qm changes Chronic pain -well controlled with fentanyl [...]
--- OUTSIDE RECORDS SUMMARY | 2018-08-09 12:24 | XMS REPORT | CCD ---
Author Author Vonda Everett Organization Vonda Everett MD, [facility] Address [address] [place] [address] Phone Care Team Providers Care Prosthetic Aides Teacher Name Role Phone PP Unavailable CCM Unavailable Summary Purpose Interface Exchange Insurance Providers Payer name Policy type / Coverage type Covered libertarian ID Effective Begin Date Effective End Date WPS Medicare Part B Medicare Part B [id number] Unknown Unknown [facility] Insurance Medicare Part B [id number] Unknown Unknown Family history Father Diagnosis Age At Onset Arthritis Unknown Hypertension Unknown Mother Diagnosis Age At Onset Diabetes mellitus Type 2 Unknown Depression Unknown Arthritis Unknown Stroke Unknown Hypertension Unknown Sister Diagnosis Age At Onset Colon cancer Unknown Social History Social History Element Codes Description Effective Dates Marital status Unknown Maurice 01/07/2018 Living arrangements Unknown [facility] 04/15/2017 Number of children Unknown 3 06/17/2015 Employment Unknown Retired 06/17/[address]: 9694180 Quit over 10 years ago 15+ 06/17/[address]: 520415592 Never drinks alcohol 06/17/2015 Allergies, Adverse Reactions, [...] Instructions hyoscyamine 0.125 mg disintegrating tablet RxNorm: 4818382 Tablet(s) 1-2 Tablet(s) PO Q8 as needed 02/08/2018 No Stop Date Active fentanyl 100 mcg/hr transdermal patch RxNorm: 332411 1 Patch TD Q72H 02/04/2018 03/05/2018 Active hydrocodone 10 mg-acetaminophen 325 mg tablet RxNorm: 417548 2 Tablet(s) PO scheduled TID 02/04/2018 No Stop Date Active Not to exceed 3gm/24hr acetaminophen Duragesic 75 mcg/hr transdermal patch RxNorm: 600577 1 Patch TD Q72H 02/04/2018 No Stop Date Active Levemir FlexTouch U-100 Insulin 100 unit/mL (3 mL) subcutaneous pen RxNorm: 070726 4 Unit(s) SQ QHS 01/07/2018 No Stop Date Active Duragesic 75 mcg/hr transdermal patch RxNorm: 553021 1 Patch TD Q72H 01/07/2018 02/03/2018 Inactive fentanyl 100 mcg/hr transdermal patch RxNorm: 185138 1 Patch TD Q72H 01/07/2018 02/03/2018 Inactive hydrocodone 10 mg-acetaminophen 325 mg tablet RxNorm: 164561 2 Tablet(s) PO scheduled TID 01/05/2018 02/03/2018 Inactive Not to exceed 3gm/24hr acetaminophen hydrocodone 10 mg-acetaminophen 325 mg tablet RxNorm: 658754 2 Tablet(s) PO scheduled TID and 1 tab q 4 as needed 01/04/2018 01/04/2018 Inactive Not to exceed 3gm/24hr acetaminophen cyanocobalamin (vit B-12) 1,000 mcg tablet RxNorm: 209612 1 Tablet(s) PO daily 12/28/2017 11/22/2018 Active baclofen 10 mg tablet RxNorm: 018185 Tablet(s) TAKE 1 TABLET THREE TIMES DAILY VIA STOMACH TUBE 12/27/2017 05/25/2018 Active 10/07/2017 5:36:15 PM 10/07/2017 5:36:13 PM N O T I C E Last quantity doesn't match original quantity Duragesic 75 mcg/hr transdermal patch RxNorm: 366457 1 Patch TD Q72H 12/22/2017 01/06/2018 Inactive fentanyl 100 mcg/hr transdermal patch RxNorm: 236768 1 Patch TD Q72H 12/22/2017 01/06/2018 Inactive hydrocodone 10 mg-acetaminophen 325 mg tablet RxNorm: 276247 2 Tablet(s) PO scheduled TID and 1 tab q 4 as needed 12/20/2017 01/03/2018 Inactive Not to exceed 3gm/24hr acetaminophen hyoscyamine 0.125 mg disintegrating tablet RxNorm: 3522508 1-2 Tablet(s) PO Q8 as needed 12/14/2017 02/07/2018 Inactive Duragesic 75 mcg/hr transdermal patch RxNorm: 528502 1 Patch TD Q72H 12/06/2017 12/21/2017 Inactive fentanyl 100 mcg/hr transdermal patch RxNorm: 974307 1 Patch TD Q72H 12/06/2017 12/21/2017 Inactive hydrocodone 10 mg-acetaminophen 325 mg tablet RxNorm: 168235 2 Tablet(s) PO scheduled TID and 1 tab q 4 as needed 11/29/2017 12/19/2017 Inactive Not to exceed 3gm/24hr acetaminophen Duragesic 75 mcg/hr transdermal patch RxNorm: 674049 1 Patch TD Q72H 11/11/2017 12/05/2017 Inactive hydrocodone 10 mg-acetaminophen 325 mg tablet RxNorm: 933873 2 Tablet(s) PO scheduled TID and 1 tab q 4 as needed 11/09/2017 11/28/2017 Inactive Not to exceed 3gm/24hr acetaminophen Levemir FlexTouch U-100 Insulin 100 unit/mL (3 mL) subcutaneous pen RxNorm: 111237 8 Unit(s) SQ QHS 11/09/2017 01/06/2018 Inactive fentanyl 100 mcg/hr transdermal patch RxNorm: 011663 1 Patch TD Q72H 2017 12/05/2017 Inactive hyoscyamine 0.125 mg disintegrating tablet RxNorm: 1207703 1-2 Tablet(s) PO Q8 as needed 11/03/2017 12/13/2017 Inactive carvedilol 3.125 mg tablet RxNorm: 436303 GIVE 1 TABLET VIA PEG TUBE 2 TIMES A DAY 10/22/2017 01/19/2018 Inactive Generic For:COREG 3.125MG 10/22/2017 9:23:30 AM hydrocodone 10 mg-acetaminophen 325 mg tablet RxNorm: 383063 2 Tablet(s) PO scheduled TID and 1 tab q 4 as needed 10/22/2017 2017 Inactive Not to exceed 3gm/24hr acetaminophen fentanyl 100 mcg/hr transdermal patch RxNorm: 854283 1 Patch TD Q72H 10/20/2017 11/07/2017 Inactive Duragesic 75 mcg/hr transdermal patch RxNorm: 401883 1 Patch TD Q72H 10/20/2017 11/10/2017 Inactive lorazepam 0.5 mg tablet RxNorm: 742307 1 Tablet(s) PO BID and 1 tab q 6 hours prn 10/18/2017 No Stop Date Active baclofen 10 mg tablet RxNorm: 614256 TAKE 1 TABLET THREE TIMES DAILY VIA STOMACH TUBE 10/07/2017 12/26/2017 Inactive 10/07/2017 5:36:15 PM 10/07/2017 5:36:13 PM N O T I C E Last quantity doesn't match original quantity cranberry extract 500 mg tablet RxNorm: 4189056 1 Tablet(s) PO QAM 10/04/2017 01/31/2018 Inactive Cipro 500 mg tablet RxNorm: 804841 1 Tablet(s) PO BID 10/04/2017 10/03/2017 Inactive dc keflex hydrocodone 10 mg-acetaminophen 325 mg tablet RxNorm: 110627 2 Tablet(s) PO scheduled TID as needed 10/04/2017 10/21/2017 Inactive Not to exceed 3gm/24hr acetaminophen cranberry extract 500 mg tablet RxNorm: 2881879 1 Tablet(s) PO QAM 10/04/2017 10/03/2017 Inactive Cipro 500 mg tablet RxNorm: 045403 1 Tablet(s) PO BID 10/04/2017 10/10/2017 Inactive dc keflex Duragesic 75 mcg/hr transdermal patch RxNorm: 776151 1 Patch TD Q72H 09/20/2017 10/19/2017 Inactive fentanyl 100 mcg/hr transdermal patch RxNorm: 431034 1 Patch TD Q72H 09/20/2017 10/19/2017 Inactive hyoscyamine 0.125 mg disintegrating tablet RxNorm: 0898946 1 Tablet(s) PO TID and 1 Tablet Q4H prn increased secretions 09/15/2017 11/02/2017 Inactive hydrocodone 10 mg-acetaminophen 325 mg tablet RxNorm: 137575 2 Tablet(s) PO scheduled TID and 1-2 Tabs Q4H PRN pain 09/15/2017 10/03/2017 Inactive Not to exceed 3gm/24hr acetaminophen lorazepam 0.5 mg tablet RxNorm: 049253 1 Tablet(s) PO BID 09/15/2017 10/17/2017 Inactive Lexapro 10 mg tablet RxNorm: 395245 1 Tablet(s) PO daily 09/10/2017 09/14/2017 Inactive lisinopril 10 mg tablet RxNorm: 779458 1 Tablet(s) PO daily 09/09/2017 06/05/2018 Active Levemir FlexTouch U-100 Insulin 100 unit/mL (3 mL) subcutaneous pen RxNorm: 127537 10 Unit(s) daily 09/09/2017 09/15/2017 Inactive Duragesic 75 mcg/hr transdermal patch RxNorm: 616786 1 Patch TD Q72H 09/09/2017 09/19/2017 Inactive nystatin 100,000 unit/gram topical cream RxNorm: 422472 1 Gram(s) TOP TID until healed to gaulding 09/06/2017 01/03/2018 Inactive nystatin 100,000 unit/gram topical cream RxNorm: 203944 1 Gram(s) TOP TID until healed to gaulding 09/06/2017 09/05/2017 Inactive hydrocodone 10 mg-acetaminophen 325 mg tablet RxNorm: 275358 2 Tablet(s) PO scheduled TID as needed 08/31/2017 09/14/2017 Inactive Not to exceed 3gm/24hr acetaminophen fentanyl 100 mcg/hr transdermal patch RxNorm: 688861 1 Patch TD Q72H 08/24/2017 09/19/2017 Inactive fentanyl 50 mcg/hr transdermal patch RxNorm: 392429 1 Patch TD Q72H 08/24/2017 09/08/2017 Inactive fentanyl 25 mcg/hr transdermal patch RxNorm: 361398 1 Patch TD Q72H 08/24/2017 08/24/2017 Inactive hyoscyamine 0.125 mg disintegrating tablet RxNorm: 7842228 Tablet(s) 1-2 Tablet(s) PO Q8 as needed 08/23/2017 09/14/2017 Inactive hydrocodone 10 mg-acetaminophen 325 mg tablet RxNorm: 938368 1 Tablet(s) PO scheduled TID et Q6 hours as needed 08/18/2017 08/30/2017 Inactive Not to exceed 3gm/24hr acetaminophen hydrochlorothiazide 25 mg tablet RxNorm: 507704 GIVE 1 TABLET VIA PEG TUBE ONCE DAILY 08/17/2017 02/12/2018 Active Generic For:HYDRODIURIL 25 MG TABLET 08/17/2017 9:01:54 AM08/11/2017 10:12:00 AM lorazepam 0.5 mg tablet RxNorm: 993107 1/2 Tablet(s) PO BID 08/03/2017 09/14/2017 Inactive fentanyl 100 mcg/hr transdermal patch RxNorm: 435491 1 Patch TD Q72H 07/26/2017 08/23/2017 Inactive fentanyl 25 mcg/hr transdermal patch RxNorm: 371070 1 Patch TD Q72H 07/26/2017 08/23/2017 Inactive hydrocodone 10 mg-acetaminophen 325 mg tablet RxNorm: 558850 1 Tablet(s) PO scheduled TID et Q6 hours as needed 07/16/2017 08/14/2017 Inactive Not to exceed 3gm/24hr acetaminophen hyoscyamine 0.125 mg disintegrating tablet RxNorm: 5197747 Tablet(s) 1-2 Tablet(s) PO Q8 as needed 07/13/2017 08/01/2017 Inactive baclofen 10 mg tablet RxNorm: 523804 TAKE 1 TABLET THREE TIMES DAILY VIA STOMACH TUBE 07/12/2017 10/06/2017 Inactive 07/12/2017 9:04:08 AM N O T I C E Last quantity doesn't match original quantity lorazepam 0.5 mg tablet RxNorm: 751064 1/2 Tablet(s) PO BID 07/02/2017 08/02/2017 Inactive fentanyl 100 mcg/hr transdermal patch RxNorm: 689775 1 Patch TD Q72H 06/28/2017 07/25/2017 Inactive fentanyl 25 mcg/hr transdermal patch RxNorm: 699216 1 Patch TD Q72H 06/28/2017 07/25/2017 Inactive hyoscyamine 0.125 mg disintegrating tablet RxNorm: 6784027 Tablet(s) 1-2 Tablet(s) PO Q8 as needed 06/03/2017 06/22/2017 Inactive fentanyl 25 mcg/hr transdermal patch RxNorm: 711394 1 Patch TD Q72H 05/26/2017 06/24/2017 Inactive Levemir FlexTouch U-100 Insulin 100 unit/mL (3 mL) subcutaneous pen RxNorm: 737590 20 Unit(s) SQ BID 05/26/2017 09/08/2017 Inactive fentanyl 100 mcg/hr transdermal patch RxNorm: 899149 1 Patch TD Q72H 05/26/2017 06/24/2017 Inactive hydrocodone 10 mg-acetaminophen 325 mg tablet RxNorm: 059091 1 Tablet(s) PO scheduled BID et Q6 hours as needed 05/12/2017 05/11/2017 Inactive hydrocodone 10 mg-acetaminophen 325 mg tablet RxNorm: 723757 1 Tablet(s) PO scheduled TID et Q6 hours as needed 05/12/2017 06/10/2017 Inactive Not to exceed 3gm/24hr acetaminophen docusate sodium 100 mg tablet RxNorm: 5902105 1 Tablet(s) PO BID as needed if no bowel movement 05/10/2017 05/09/2017 Inactive lisinopril 20 mg tablet RxNorm: 894574 1 Tablet(s) PO daily 05/10/2017 09/08/2017 Inactive docusate sodium 100 mg tablet RxNorm: 8944360 1 Tablet(s) PO BID as needed if no bowel movement 05/10/2017 09/14/2017 Inactive fentanyl 25 mcg/hr transdermal patch RxNorm: 354525 1 Patch TD Q72H 05/03/2017 05/25/2017 Inactive lorazepam 0.5 mg tablet RxNorm: 527452 1/2 Tablet(s) PO BID 05/03/2017 07/01/2017 Inactive fentanyl 100 mcg/hr transdermal patch RxNorm: 738550 1 Patch TD Q72H 04/27/2017 05/25/2017 Inactive carvedilol 3.125 mg tablet RxNorm: 046243 Tablet(s) GIVE 1 TABLET VIA PEG TUBE DAILY 04/15/2017 10/21/2017 Inactive Levemir FlexTouch 100 unit/mL (3 mL) subcutaneous insulin pen RxNorm: 905685 10 Unit(s) SQ BID 04/15/2017 2017 Inactive hyoscyamine 0.125 mg disintegrating tablet RxNorm: 4999612 1-2 Tablet(s) PO Q8 as needed 04/14/2017 05/03/2017 Inactive hydrocodone 10 mg-acetaminophen 325 mg tablet RxNorm: 135902 1 Tablet(s) PO scheduled BID et Q6 hours as needed 04/13/2017 05/02/2017 Inactive baclofen 10 mg tablet RxNorm: 641972 TAKE 1 TABLET THREE TIMES DAILY VIA STOMACH TUBE 04/08/2017 05/22/2017 Inactive 04/08/2017 9:32:07 AM fentanyl 25 mcg/hr transdermal patch RxNorm: 068642 1 Patch TD Q72H 04/05/2017 05/02/2017 Inactive lidocaine 10 mg/mL (1 %) injection solution RxNorm: 1997144 1 Milliliter(s) Inj daily Mix with rocephin 03/31/2017 03/30/2017 Inactive Pt resides at [facility] lidocaine 10 mg/mL (1 %) injection solution RxNorm: 2478158 1 Milliliter(s) Inj daily Mix with rocephin 03/31/2017 04/06/2017 Inactive Pt resides at [facility] fentanyl 100 mcg/hr transdermal patch RxNorm: 681736 1 Patch TD Q72H 03/29/2017 04/26/2017 Inactive nystatin 100,000 unit/gram topical powder RxNorm: 777598 APPLY UNDER BREASTS TWICE DAILY FOR YEAST SKIN INFECTION AND APPLY TO UNDERARM AND ABDOMINAL FOLDS AND PERIAREA TWICE DAILY 03/29/2017 03/28/2017 Inactive 03/27/2017 9:12:50 AM nystatin 100,000 unit/gram topical powder RxNorm: 093588 APPLY UNDER BREASTS TWICE DAILY FOR YEAST SKIN INFECTION AND APPLY TO UNDERARM AND ABDOMINAL FOLDS AND PERIAREA TWICE DAILY 03/29/2017 09/14/2017 Inactive 03/29/2017 9:42:55 AM03/27/2017 9:12:50 AM hyoscyamine 0.125 mg disintegrating tablet RxNorm: 9118969 1-2 Tablet(s) PO Q8 as needed 03/08/2017 03/27/2017 Inactive fentanyl 25 mcg/hr transdermal patch RxNorm: 463116 1 Patch TD Q72H 03/02/2017 03/31/2017 Inactive hydrocodone 10 mg-acetaminophen 325 mg tablet RxNorm: 625630 1 Tablet(s) PO scheduled BID et Q6 hours as needed 02/17/2017 03/18/2017 Inactive fentanyl 100 mcg/hr transdermal patch RxNorm: 285701 1 Patch TD Q72H 02/17/2017 03/18/2017 Inactive Lexapro 10 mg tablet RxNorm: 857819 1 Tablet(s) PO daily 02/05/2017 04/14/2017 Inactive Lexapro 10 mg tablet RxNorm: 569132 1 Tablet(s) PO daily 02/05/2017 02/04/2017 Inactive fentanyl 25 mcg/hr transdermal patch RxNorm: 523809 1 Patch TD Q72H 02/04/2017 03/01/2017 Inactive cyanocobalamin (vit B-12) 1,000 mcg tablet RxNorm: 411337 1 Tablet(s) PO daily 01/18/2017 12/13/2017 Inactive hyoscyamine 0.125 mg disintegrating tablet RxNorm: 7964903 Tablet(s) 1-2 Tablet(s) PO Q8 as needed 01/18/2017 02/06/2017 Inactive baclofen 10 mg tablet RxNorm: 610971 TAKE 1 TABLET THREE TIMES DAILY VIA STOMACH TUBE 01/04/2017 02/17/2017 Inactive 01/04/2017 9:25:18 AM fentanyl 100 mcg/hr transdermal patch RxNorm: 159250 1 Patch TD Q72H 12/25/2016 01/23/2017 Inactive hydrochlorothiazide 25 mg tablet RxNorm: 032293 Tablet(s) GIVE 1 TABLET VIA PEG TUBE ONCE A DAY 12/14/2016 07/11/2017 Inactive fentanyl 100 mcg/hr transdermal patch RxNorm: 821793 1 Patch TD Q72H 11/25/2016 12/24/2016 Inactive hyoscyamine 0.125 mg disintegrating tablet RxNorm: 3196286 Tablet(s) 1-2 Tablet(s) PO Q8 as needed 11/25/2016 12/14/2016 Inactive nystatin 100,000 unit/gram topical powder RxNorm: 524930 APPLY UNDER BREASTS TWICE DAILY FOR YEAST SKIN INFECTION AND APPLY TO UNDERARM AND ABDOMINAL FOLDS AND PERIAREA TWICE DAILY 11/24/2016 01/22/2017 Inactive 11/24/2016 9:34:02 AM hydrocodone 10 mg-acetaminophen 325 mg tablet RxNorm: 965360 1 Tablet(s) PO scheduled BID et Q6 hours as needed 11/02/2016 12/01/2016 Inactive cyanocobalamin (vit B-12) 1,000 mcg tablet RxNorm: 511517 1 Tablet(s) PO daily 11/02/2016 01/17/2017 Inactive hyoscyamine 0.125 mg disintegrating tablet RxNorm: 1674367 1-2 Tablet(s) PO Q8 as needed 10/19/2016 11/24/2016 Inactive fentanyl 100 mcg/hr transdermal patch RxNorm: 086392 1 Patch TD Q72H 10/13/2016 11/11/2016 Inactive hydrocodone 10 mg-acetaminophen 325 mg tablet RxNorm: 661549 1 Tablet(s) PO scheduled BID et Q6 hours as needed 10/05/2016 11/01/2016 Inactive baclofen 10 mg tablet RxNorm: 552334 TAKE 1 TABLET THREE TIMES DAILY VIA STOMACH TUBE 10/01/2016 11/14/2016 Inactive 10/01/2016 9:24:37 AM carvedilol 3.125 mg tablet RxNorm: 725004 GIVE 1 TABLET VIA PEG TUBE 2 TIMES A DAY 09/30/2016 12/28/2016 Inactive Generic For:COREG 3.125MG 09/30/2016 1:12:28 PM09/25/2016 9:06:11 AM Probiotic Blend 2 million cell-50 mg capsule RxNorm: 1 Capsule(s) PO BID 09/17/2016 09/23/2016 Inactive Keflex 500 mg capsule RxNorm: 838751 1 Capsule(s) PO TID 09/17/2016 09/23/2016 Inactive hyoscyamine 0.125 mg/5 mL oral elixir RxNorm: 3949342 5 Milliliter(s) PO TID 09/08/2016 09/17/2016 Inactive hyoscyamine 0.125 mg/5 mL oral elixir RxNorm: 7694254 5 Milliliter(s) PO TID 09/08/2016 09/07/2016 Inactive hyoscyamine 0.125 mg disintegrating tablet RxNorm: 0339899 1-2 Tablet(s) PO Q8 as needed 09/07/2016 10/18/2016 Inactive fentanyl 100 mcg/hr transdermal patch RxNorm: 754275 1 Patch TD Q72H 09/01/2016 09/30/2016 Inactive ranitidine 150 mg tablet RxNorm: 040544 1 Tablet(s) PO BID 08/25/2016 No Stop Date Active hydrocodone 10 mg-acetaminophen 325 mg tablet RxNorm: 407534 1 Tablet(s) PO scheduled BID et Q6 hours as needed 08/24/2016 09/22/2016 Inactive cyanocobalamin (vit B-12) 1,000 mcg tablet RxNorm: 410448 1 Tablet(s) PO daily 08/12/2016 11/01/2016 Inactive cyanocobalamin (vit B-12) 1,000 mcg tablet RxNorm: 517184 1 Tablet(s) PO daily 08/12/2016 08/11/2016 Inactive hydrocodone 10 mg-acetaminophen 325 mg tablet RxNorm: 491132 1-2 Tablet(s) PO Q6 as needed 08/03/2016 08/17/2016 Inactive fentanyl 100 mcg/hr transdermal patch RxNorm: 595432 1 Patch TD Q72H 08/03/2016 08/31/2016 Inactive nystatin 100,000 unit/gram topical powder RxNorm: 992653 APPLY UNDER BREASTS TWICE DAILY FOR YEAST SKIN INFECTION AND APPLY TO UNDERARM AND ABDOMINAL FOLDS AND PERIAREA TWICE DAILY 07/17/2016 09/14/2016 Inactive 07/17/2016 3:56:54 PM fentanyl 100 mcg/hr transdermal patch RxNorm: 294998 1 Patch TD Q72H 07/15/2016 08/02/2016 Inactive lisinopril 20 mg tablet RxNorm: 267750 1 Tablet(s) PO daily 07/02/2016 03/28/2017 Inactive hydrocodone 10 mg-acetaminophen 325 mg tablet RxNorm: 454405 1-2 Tablet(s) PO Q6 as needed 07/01/2016 07/15/2016 Inactive Xarelto 20 mg tablet RxNorm: 6110806 Tablet(s) TAKE 1 TABLET VIA PEG TUBE AT BEDTIME 06/19/2016 04/14/2017 Inactive fentanyl 100 mcg/hr transdermal patch RxNorm: 382281 1 Patch TD Q72H 06/17/2016 07/14/2016 Inactive nystatin 100,000 unit/gram topical powder RxNorm: 162006 APPLY TO UNDER BREASTS TWICE DAILY FOR YEAST SKIN INFECTION AND APPLY TO UNDERARM AND ABDOMINAL FOLDS AND PERIAREA TWICE DAILY 06/15/2016 07/16/2016 Inactive Generic For:MYCOSTATIN 100,000 UNITS/GM PW 06/15/2016 12:28:26 PM fentanyl 100 mcg/hr transdermal patch RxNorm: 386200 1 Patch TD Q72H 06/05/2016 06/16/2016 Inactive hydrocodone 10 mg-acetaminophen 325 mg tablet RxNorm: 327686 1-2 Tablet(s) PO Q6 as needed 06/02/2016 06/16/2016 Inactive Probiotic Blend 2 million cell-50 mg capsule RxNorm: 1 Capsule(s) PO BID 05/13/2016 05/19/2016 Inactive nitrofurantoin 100 mg capsule RxNorm: 046046 1 Capsule(s) PO BID 05/13/2016 05/19/2016 Inactive nitrofurantoin 100 mg capsule RxNorm: 396900 1 Capsule(s) PO BID 05/13/2016 05/12/2016 Inactive fentanyl 75 mcg/hr transdermal patch RxNorm: 694252 1 Patch TD Q72H 05/13/2016 06/04/2016 Inactive Keflex 500 mg capsule RxNorm: 442888 1 Capsule(s) PO TID 05/07/2016 05/13/2016 Inactive Patient at [facility] Keflex 500 mg capsule RxNorm: 633251 1 Capsule(s) PO TID 05/07/2016 05/06/2016 Inactive hydrocodone 10 mg-acetaminophen 325 mg tablet RxNorm: 662333 1-2 Tablet(s) PO Q6 as needed 05/04/2016 06/01/2016 Inactive hydrochlorothiazide 25 mg tablet RxNorm: 869535 Tablet(s) GIVE 1 TABLET VIA PEG TUBE ONCE A DAY 04/29/2016 11/24/2016 Inactive hydrochlorothiazide 25 mg tablet RxNorm: 011409 GIVE 1 TABLET VIA PEG TUBE ONCE A DAY 04/22/2016 04/28/2016 Inactive Generic For:HYDRODIURIL 25 MG TABLET refill request fentanyl 75 mcg/hr transdermal patch RxNorm: 860478 1 Patch TD Q72H 04/17/2016 05/12/2016 Inactive Xarelto 20 mg tablet RxNorm: 5768224 TAKE 1 TABLET VIA PEG TUBE AT BEDTIME 04/16/2016 06/14/2016 Inactive 04/16/2016 9:08:52 AM citalopram 40 mg tablet RxNorm: 114259 1 Tablet(s) PO daily 04/02/2016 02/25/2017 Inactive citalopram 40 mg tablet RxNorm: 444678 1 Tablet(s) PO daily 03/27/2016 04/01/2016 Inactive hydrocodone 10 mg-acetaminophen 325 mg tablet RxNorm: 645189 1-2 Tablet(s) PO Q6 as needed 03/27/2016 04/25/2016 Inactive fentanyl 75 mcg/hr transdermal patch RxNorm: 257198 1 Patch TD Q72H 03/18/2016 04/16/2016 Inactive hydrocodone 10 mg-acetaminophen 325 mg tablet RxNorm: 808036 1-2 Tablet(s) PO Q6 as needed 03/11/2016 03/26/2016 Inactive citalopram 40 mg tablet RxNorm: 011856 1 Tablet(s) PO daily 03/04/2016 03/26/2016 Inactive Levemir FlexTouch U-100 Insulin 100 unit/mL (3 mL) subcutaneous pen RxNorm: 000214 20 Unit(s) SQ BID 03/02/2016 09/27/2016 Inactive lisinopril 20 mg tablet RxNorm: 073377 1 Tablet(s) PO daily 02/25/2016 07/01/2016 Inactive Ativan 0.5 mg tablet RxNorm: 633188 1 Tablet(s) PO Q4H as needed 02/18/2016 04/14/2017 Inactive Xarelto 20 mg tablet RxNorm: 0131784 TAKE 1 TABLET VIA PEG TUBE AT BEDTIME 02/12/2016 04/11/2016 Inactive 02/12/2016 9:08:22 AM hydrocodone 10 mg-acetaminophen 325 mg tablet RxNorm: 446999 1-2 Tablet(s) PO Q6 as needed 02/12/2016 03/10/2016 Inactive fentanyl 75 mcg/hr transdermal patch RxNorm: 667501 1 Patch TD Q72H 02/11/2016 03/11/2016 Inactive citalopram 20 mg tablet RxNorm: 702391 1 Tablet(s) PO daily 01/28/2016 03/03/2016 Inactive fentanyl 75 mcg/hr transdermal patch RxNorm: 833418 1 TD Q72H 01/17/2016 02/10/2016 Inactive hydrocodone 10 mg-acetaminophen 325 mg tablet RxNorm: 746052 1-2 Tablet(s) PO Q6 as needed 01/07/2016 02/05/2016 Inactive fentanyl 50 mcg/hr transdermal patch RxNorm: 793122 1 TD Q72H 01/01/2016 01/16/2016 Inactive fentanyl 50 mcg/hr transdermal patch RxNorm: 402905 1 TD q 3 days 12/26/2015 12/31/2015 Inactive Xarelto 20 mg tablet RxNorm: 7702934 TAKE 1 TABLET VIA PEG TUBE AT BEDTIME 12/17/2015 02/11/2016 Inactive 12/16/2015 3:27:57 PM12/14/2015 9:45:17 AM hydrocodone 10 mg-acetaminophen 325 mg tablet RxNorm: 376507 1-2 Tablet(s) PO Q6 as needed 12/06/2015 01/04/2016 Inactive fentanyl 50 mcg/hr transdermal patch RxNorm: 012677 1 TD q 3 days 12/06/2015 12/25/2015 Inactive fentanyl 25 mcg/hr transdermal patch RxNorm: 053943 1 TD q 3 days 11/18/2015 12/05/2015 Inactive Zithromax Z-Eliu 250 mg tablet RxNorm: 787143 1 Tablet(s) PO UD 10/09/2015 02/26/2016 Inactive z pack as directed- please write out instructions- pt at [facility] nystatin 100,000 unit/gram topical powder RxNorm: 154591 APPLY TO UNDER BREASTS TWICE DAILY FOR YEAST SKIN INFECTION AND APPLY TO UNDERARM AND ABDOMINAL FOLDS AND PERIAREA TWICE DAILY 10/07/2015 12/05/2015 Inactive Generic For:MYCOSTATIN 100,000 UNITS/GM PW 10/05/2015 12:07:35 PM fentanyl 25 mcg/hr transdermal patch RxNorm: 320176 1 TD q 3 days 10/03/2015 11/01/2015 Inactive fentanyl 25 mcg/hr transdermal patch RxNorm: 507853 1 TD q 3 days 09/27/2015 10/02/2015 Inactive fentanyl 25 mcg/hr transdermal patch RxNorm: 909087 1 TD q 3 days 09/17/2015 09/26/2015 Inactive fentanyl 25 mcg/hr transdermal patch RxNorm: 407226 1 TD q 3 days 08/30/2015 09/16/2015 Inactive hydrocodone 5 mg-acetaminophen 325 mg tablet RxNorm: 107371 1 Tablet(s) PO Q6 as needed 08/30/2015 09/28/2015 Inactive Diflucan 100 mg tablet RxNorm: 148330 1 Tablet(s) Miscellaneous per peg daily 07/29/2015 08/04/2015 Inactive fentanyl 25 mcg/hr transdermal patch RxNorm: 618095 1 TD q 3 days 07/18/2015 08/29/2015 Inactive hydrocodone 5 mg-acetaminophen 325 mg tablet RxNorm: 715702 1 Tablet(s) PO Q6 as needed 07/18/2015 08/29/2015 Inactive Diflucan 100 mg tablet RxNorm: 101013 1 Tablet(s) Miscellaneous per peg daily 06/17/2015 06/23/2015 Inactive Senna-S 8.6 mg-50 mg tablet RxNorm: 790886 1 Tablet(s) PO daily as needed constipation No Start Date Active Dulcolax (bisacodyl) 10 mg rectal suppository RxNorm: 146359 1 Suppository RTL daily as needed constipation No Start Date Active albuterol sulfate concentrate 5 mg/mL(0.5 %) solution for nebulization RxNorm: 841841 1 Vial INH daily as needed congestion No Start Date Active polyethylene glycol 3350 17 gram/dose oral powder RxNorm: 743765 17 Gram(s) PO daily as needed constipation No Start Date Active baclofen 10 mg tablet RxNorm: 069400 1 Tablet(s) PO TID No Start Date 09/30/2016 Inactive Ativan 0.5 mg tablet RxNorm: 393549 1 Tablet(s) PO Q4H as needed No Start Date 02/17/2016 Inactive ranitidine 150 mg tablet RxNorm: 477133 1 Tablet(s) PO daily No Start Date 08/24/2016 Inactive carvedilol 3.125 mg tablet RxNorm: 503897 1 Tablet(s) PO daily No Start Date 09/29/2016 Inactive citalopram 40 mg tablet RxNorm: 480313 1 Tablet(s) PO daily No Start Date 01/27/2016 Inactive Probiotic Blend oral RxNorm: oral No Start Date 05/12/2016 Inactive hydrochlorothiazide 25 mg tablet RxNorm: 157333 1 Tablet(s) PO daily No Start Date 04/21/2016 Inactive Levemir FlexTouch 100 unit/mL (3 mL) subcutaneous insulin pen RxNorm: 771608 10 Unit(s) SQ BID No Start Date 03/01/2016 Inactive Zithromax Z-Eliu 250 mg tablet RxNorm: 721945 1 Tablet(s) PO UD No Start Date 10/08/2015 Inactive z pack as directed- please write out instructions- pt at [facility] nystatin 100,000 unit/gram topical powder RxNorm: 510249 Gram(s) TOP BID as needed No Start Date 10/06/2015 Inactive pravastatin 40 mg tablet RxNorm: 144360 Tablet(s) PO daily No Start Date 04/14/2017 Inactive lorazepam 0.5 mg tablet RxNorm: 485919 1/2 Tablet(s) PO BID No Start Date 05/02/2017 Inactive Xarelto 20 mg tablet RxNorm: 4247270 1 Tablet(s) PO daily No Start Date 12/16/2015 Inactive fentanyl 25 mcg/hr transdermal patch RxNorm: 303708 1 TD q 3 days No Start Date 07/17/2015 Inactive lisinopril 20 mg tablet RxNorm: 076437 1 Tablet(s) PO daily No Start Date 02/24/2016 Inactive hydrocodone 5 mg-acetaminophen 325 mg tablet RxNorm: 490539 1 Tablet(s) PO Q6 as needed No Start Date 07/17/2015 Inactive citalopram 40 mg tablet RxNorm: 409487 1 Tablet(s) PO daily No Start Date 03/03/2016 Inactive hyoscyamine 0.125 mg disintegrating tablet RxNorm: 5571296 1-2 Tablet(s) PO Q8 as needed No [...] Observation Code Item Item Code Result Date Prealbumin 913438 PREALBUMIN 27 mg/dL 11/24/2017 %Hba1C Zzq164 % HbA1c 58964- 6 5.5 % 11/04/2017 %Hba1C Avg912 Gluc Ave 111 mg/dL 11/04/2017 Culture Urine [id number] URINE CULTURE SEE NOTES 10/04/2017 Culture Urine [id number] Continued Results 10/04/2017 Urine Culture Ucult Complete [...] Ord28 U-Com Culture to follow 10/01/2017 B12 Tjv580 B12 >1500.00 pg/ml 02/19/2017 Cbc With Differential [...] 31.5 pg 02/02/2017 Cbc With Differential Ord2 [place]% 8.3 % 02/02/2017 Cbc With Differential Ord2 [...] 2.28 K/ul 02/02/2017 Cbc With Differential Ord2 [place] ABS# 0.6 K/ul 02/02/2017 Cbc With Differential Ord2 Eos ABS# 0.4 K/ul 02/02/2017 Cbc With Differential Ord2 Baso ABS# 0.0 K/ul 02/02/2017 %Hba1C Upn262 % HbA1c 33294- 6 5.2 % 02/02/2017 %Hba1C Nxs910 Gluc Ave 103 mg/dL 02/02/2017 Comp Metabolic Fxu909 NA 138 mEq/L 02/02/2017 Comp Metabolic Tlm020 K 4.5 mEq/L 02/02/2017 Comp Metabolic Nlg357 CL 98 mEq/L 02/02/2017 Comp Metabolic Pwz195 CO2 37.0 mEq/L 02/02/2017 Comp Metabolic Oae337 ANION GAP 8 02/02/2017 Comp Metabolic Aah566 GLUCOSE 94 mg/dL 02/02/2017 Comp Metabolic Eie968 Creat 0.7 mg/dL 02/02/2017 Comp Metabolic Doy902 eGFR 88 ml/min/1.73m2 02/02/2017 Comp Metabolic Ebe759 BUN 36 mg/dL 02/02/2017 Comp Metabolic Tov431 B/C Ratio 50.7 Ratio 02/02/2017 Comp Metabolic Ese719 CALCIUM 9.0 mg/dL 02/02/2017 Comp Metabolic Gvh709 ALK PHOS 78 U/L 02/02/2017 Comp Metabolic Brt525 AST(SGOT) 22 U/L 02/02/2017 Comp Metabolic Ryi488 ALT(SGPT) 28 U/L 02/02/2017 Comp Metabolic Apw529 BILI T 0.3 mg/dL 02/02/2017 Comp Metabolic Nse354 ALBUMIN 3.3 g/dL 02/02/2017 Comp Metabolic Uuh125 TPRO 5.9 g/dL 02/02/2017 Comp Metabolic Pna623 GLOB 2.6 g/dL 02/02/2017 Comp Metabolic Mht202 A/G Ratio 1.3 Ratio 02/02/2017 Comp Metabolic Pwv130 Osmo 284 mOsmo 02/02/2017 %Hba1C Ibf722 % HbA1c 81057- 6 5.0 % 10/29/2016 %Hba1C Nqi784 Gluc Ave 97 mg/dL 10/29/2016 Culture Urine [id number] URINE CULTURE SEE NOTES 09/21/2016 Culture Urine [id number] Continued Results 09/21/2016 Urine Culture Ucult Complete [...] 41.3 % 07/30/2016 Cbc With Differential Ord2 [place]% 7.2 % 07/30/2016 Cbc With Differential Ord2 [...] 2.69 K/ul 07/30/2016 Cbc With Differential Ord2 [place] ABS# 0.5 K/ul 07/30/2016 Cbc With Differential Ord2 Eos ABS# 0.5 K/ul 07/30/2016 Cbc With Differential Ord2 Baso ABS# 0.0 K/ul 07/30/2016 Comp Metabolic Yhc758 NA 141 mEq/L 07/30/2016 Comp Metabolic Oul283 K 4.3 mEq/L 07/30/2016 Comp Metabolic Gld913 CL 100 mEq/L 07/30/2016 Comp Metabolic Bhq003 CO2 33.0 mEq/L 07/30/2016 Comp Metabolic Wrk846 ANION GAP 12 07/30/2016 Comp Metabolic Hkb645 GLUCOSE 64 mg/dL 07/30/2016 Comp Metabolic Xxh576 Creat 0.5 mg/dL 07/30/2016 Comp Metabolic Jps219 eGFR 126 ml/min/1.73m2 07/30/2016 Comp Metabolic Hrq784 BUN 25 mg/dL 07/30/2016 Comp Metabolic Mvl856 B/C Ratio 48.1 Ratio 07/30/2016 Comp Metabolic Pcn731 CALCIUM 8.9 mg/dL 07/30/2016 Comp Metabolic Qba284 ALK PHOS 90 U/L 07/30/2016 Comp Metabolic Kgd932 AST(SGOT) 22 U/L 07/30/2016 Comp Metabolic Adi023 ALT(SGPT) 36 U/L 07/30/2016 Comp Metabolic Uqt525 BILI T 0.3 mg/dL 07/30/2016 Comp Metabolic Njm843 ALBUMIN 3.4 g/dL 07/30/2016 Comp Metabolic Zoe650 TPRO 6.0 g/dL 07/30/2016 Comp Metabolic Hex432 GLOB 2.7 g/dL 07/30/2016 Comp Metabolic Emz936 A/G Ratio 1.3 Ratio 07/30/2016 Comp Metabolic Tmb325 Osmo 284 mOsmo 07/30/2016 A1C Frequency Qmh186 A1CF 77133-3 Last A1C performed at [facility] on: 05-12-2016 07/30/2016 %Hba1C Npc577 % HbA1c 55081- 6 5.2 % 05/12/2016 %Hba1C Srt040 Gluc Ave 103 mg/dL 05/12/2016 Culture Urine [id number] URINE CULTURE SEE NOTES 05/11/2016 Urine Culture [...] Urinalysis Ord28 U-Yeast NEGATIVE 05/06/2016 Culture Urine [id number] URINE CULTURE SEE NOTES 03/17/2016 Culture Urine [id number] Continued Results 03/17/2016 Urine Culture Ucult Complete [...] 32.0 pg 02/11/2016 Cbc With Differential Ord2 [place]% 9.1 % 02/11/2016 Cbc With Differential Ord2 [...] 2.59 K/ul 02/11/2016 Cbc With Differential Ord2 [place] ABS# 0.6 K/ul 02/11/2016 Cbc With Differential Ord2 Eos ABS# 0.3 K/ul 02/11/2016 Cbc With Differential Ord2 Baso ABS# 0.0 K/ul 02/11/2016 Comp Metabolic Ech763 NA 137 mEq/L 02/11/2016 Comp Metabolic Yuv178 K 4.4 mEq/L 02/11/2016 Comp Metabolic Dfw980 CL 100 mEq/L 02/11/2016 Comp Metabolic Tal445 CO2 25.0 mEq/L 02/11/2016 Comp Metabolic Uet295 ANION GAP 16 02/11/2016 Comp Metabolic Trl585 GLUCOSE 99 mg/dL 02/11/2016 Comp Metabolic Fdo629 Creat 0.6 mg/dL 02/11/2016 Comp Metabolic Sqb082 eGFR 99 ml/min/1.73m2 02/11/2016 Comp Metabolic Nle238 BUN 27 mg/dL 02/11/2016 Comp Metabolic Kwj686 B/C Ratio 42.2 Ratio 02/11/2016 Comp Metabolic Ktd082 CALCIUM 9.2 mg/dL 02/11/2016 Comp Metabolic Aic627 ALK PHOS 74 U/L 02/11/2016 Comp Metabolic Ugl222 AST(SGOT) 24 U/L 02/11/2016 Comp Metabolic Rsy533 ALT(SGPT) 26 U/L 02/11/2016 Comp Metabolic Lea400 BILI T 0.5 mg/dL 02/11/2016 Comp Metabolic Gzg192 ALBUMIN 3.5 g/dL 02/11/2016 Comp Metabolic Tdt138 TPRO 6.2 g/dL 02/11/2016 Comp Metabolic Ilb756 GLOB 2.7 g/dL 02/11/2016 Comp Metabolic Dnj995 A/G Ratio 1.3 Ratio 02/11/2016 Comp Metabolic Osa532 Osmo 279 mOsmo 02/11/2016 Review of Systems [...] 1: 128/86 Code: 8480-6 BMI: 31.4 Code: 19048-7 Heart Rate 1: 72 bpm Height: 5'1" Weight: 166 lbs 06/17/2015 Blood Pressure 1: 110/78 Code: 8480-6 BMI: 33.3 Code: 14246-3 Heart Rate 1: 74 bpm Height: 5'1" [...] Present Encounters Encounter Performer Location Codes Date ([id number]) 60300 EST. PATIENT, LEVEL IV Diagnosis: Type 2 diabetes mellitus without complications[ICD10: E11.9] Diagnosis: Essential (primary) hypertension[ICD10: I10] Diagnosis: Chronic pain syndrome[ICD10: G89.4] Carlyn Everett MD, [facility] CPT-4: 33565 01/07/2018 ([id number]) 05458 EST. PATIENT, LEVEL IV Diagnosis: Essential (primary) hypertension[ICD10: I10] Diagnosis: Type 2 diabetes mellitus without complications[ICD10: E11.9] Carlyn Everett MD, [facility] CPT-4: 18174 2017 ([id number]) 07692 EST. PATIENT, LEVEL IV Diagnosis: Type 2 diabetes mellitus with hyperglycemia[ICD10: E11.65] Diagnosis: Essential (primary) hypertension[ICD10: I10] Diagnosis: Pain in left shoulder[ICD10: M25.512] Diagnosis: Pain in right shoulder[ICD10: M25.511] Diagnosis: Pain in left knee[ICD10: M25.562] Diagnosis: Pain in right knee[ICD10: M25.561] Vonda Everett MD, [facility] CPT- 4: 86397 09/09/2017 14514 EST. PATIENT, LEVEL IV Diagnosis: Essential (primary) hypertension[ICD10: I10] Diagnosis: Type 2 diabetes mellitus with hyperglycemia[ICD10: E11.65] Diagnosis: Low back pain[ICD10: M54.5] Sunitha Everett MD, [facility] CPT-4: 78367 06/08/2017 [id number]) 71074 EST. PATIENT, LEVEL IV Diagnosis: Essential (primary) hypertension[ICD10: I10] Diagnosis: Type 2 diabetes mellitus with hyperglycemia[ICD10: E11.65] Diagnosis: Low back pain[ICD10: M54.5] Sunitha Everett MD, [facility] CPT-4: 45034 04/15/2017 ([id number]) 15297 EST. PATIENT, LEVEL IV Diagnosis: Essential (primary) hypertension[ICD10: I10] Diagnosis: Type 2 diabetes mellitus with hyperglycemia[ICD10: E11.65] Diagnosis: Low back pain[ICD10: M54.5] [facility] CPT-4: 98803 02/16/2017 89681 EST. 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] Diagnosis: Ataxia following cerebral infarction[ICD10: I69.393] Diagnosis: 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] Diagnosis: Dysphagia following cerebral infarction[ICD10: I69.391] 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] Diagnosis: Candidal esophagitis[ICD10: B37.81] Vonda Everett MD, [facility] CPT- 4: 22749 06/17/2015 Plan of Care Planned Activity Notes Codes Status Date Visit Plan: DM -decrease levemir to 4 units daily -monitor blood sugars VWT-gnrxmgbicl-os changes Chronic pain -well controlled with fentanyl patch -no changes at this time 01/07/2018 Appointment: Carlyn Higginbotham WPtel: [address] [place], [place] [phone] (15 min) Moderate 01/07/2018 Patient Education: Patient [...] 2017 Appointment: Carlyn Higginbotham WPtel: [phone] [phone] (15 min) Moderate 2017 Patient Education: [...] to 175mcg. 09/09/2017 Appointment: Vonda Everett WPtel: [facility] [place] (15 min) Moderate 09/09/2017 Patient Education: [...] record. 06/08/2017 App[facility]ment[phone] [facility] (30 min) Complex 06/08/2017 Patient [...] over-medication. 04/15/2017 Appointment: Sunitha Patel WPtel: [phone] [facility] (30 min) Complex 04/15/2017 Patient Education: Patient [...] WPtel: [phone] [facility] (15 min) Moderate 02/16/2017 Patient Education: Patient [...] concerns. 11/09/2016 App[facility]ment: [phone] [facility] (30 min) Complex 11/09/2016 Patient Education: Patient Medication Summary Completed 11/09/2016 Care Plan: Referral Order SNOMED-CT : [id number] Pending 11/09/2016 Patient Education: Patient Medication Summary [...] Follow up weight in 1 month Neck hdxy-cqseoasdcti-Zoyt PT focus neck/upper body Right earache-cerumen removed with water pick today in the office 07/18/2015 Appointment: (30 min) Complex 07/18/2015 Patient Education: Patient Medication Summary Completed 07/18/2015 Patient Education: Obesity Completed 07/18/2015 Patient Education: .Cervicalgia Neck Pain Completed 07/18/2015 [phone] [facility] Ref[facility] Completed 06/25/2015 Visit Plan: Hypertension [...] normal liver response to medications. [facility] post stroke - left sided weakness, neck stiffness, upper extremity weakness Diabetes Mellitus - controlled - per family report - check labs this week, get report from and [facility]. I spent over an hour with the patient in direct contact. 06/17/2015 Appointment: [facility] Eve[facility] [phone] [facility] New Patient 06/17/2015 Patient Education: Patient Medication Summary Completed 06/17/2015 Patient Education: Obesity Completed 06/17/2015 Patient Education: Hypertension Completed 06/17/2015 Care Plan: Referral Order SNOMED-CT : [id number] Ordered 06/17/2015 Referral: Jorge Luis Carroll Referral Initiated Referral: [facility] [phone] [facility] [place] Referral Appointment Requested Instructions Comment . [...] labs this week, get report from and [facility]. I spent over an hour with the patient in direct contact. . PEG tube - tube has not been replaced in some time, some mild irritation noted around the tube - will refer to surgeon for PEG tube replacement. Pt/family is to notify clinic with any changes, questions, or concerns. Add 1 scoop of whey protein from [facility] to 2 feedings per day . Hypertension [...] Follow up weight in 1 month Neck jlwr-lefsteuisfn-Wtqk PT focus neck/upper body Right earache-cerumen removed [...] to 4 units daily -monitor blood sugars QMY-qvqgpnyjkv-va changes Chronic pain -well controlled with fentanyl [...]
--- OUTSIDE RECORDS SUMMARY | 2018-08-09 12:27 | XMS REPORT | CCD ---
Author Author Vonda Everett Organization Vonda Everett MD, [facility] Address [address] [place] [address] Phone Care Team Providers Care Intranet Support Name Role Phone PP Unavailable CCM Unavailable Summary Purpose Interface Exchange Insurance Providers Payer name Policy type / Coverage type Covered republican ID Effective Begin Date Effective End Date WPS Medicare Part B Medicare Part B [id number] Unknown Unknown [place] [employer] Life Insurance Medicare Part B [id number] Unknown Unknown Family history Father Diagnosis Age At Onset Arthritis Unknown Hypertension Unknown Mother Diagnosis Age At Onset Diabetes mellitus Type 2 Unknown Depression Unknown Arthritis Unknown Stroke Unknown Hypertension Unknown Sister Diagnosis Age At Onset Colon cancer Unknown Social History Social History Element Codes Description Effective Dates Marital status Unknown Maurice 01/07/2018 Living arrangements Unknown [facility] 04/15/2017 Number of children Unknown 3 06/17/2015 Employment Unknown Retired 06/17/[address]: 4834533 Quit over 10 years ago 15+ 06/17/[address]: 327159084 Never drinks alcohol 06/17/2015 Allergies, Adverse Reactions, [...] Instructions fentanyl 100 mcg/hr transdermal patch RxNorm: 331950 1 Patch TD Q72H 02/04/2018 03/05/2018 Active hydrocodone 10 mg-acetaminophen 325 mg tablet RxNorm: 038630 2 Tablet(s) PO scheduled TID 02/04/2018 No Stop Date Active Not to exceed 3gm/24hr acetaminophen Duragesic 75 mcg/hr transdermal patch RxNorm: 938878 1 Patch TD Q72H 02/04/2018 No Stop Date Active Levemir FlexTouch U-100 Insulin 100 unit/mL (3 mL) subcutaneous pen RxNorm: 480779 4 Unit(s) SQ QHS 01/07/2018 No Stop Date Active Duragesic 75 mcg/hr transdermal patch RxNorm: 123885 1 Patch TD Q72H 01/07/2018 02/03/2018 Inactive fentanyl 100 mcg/hr transdermal patch RxNorm: 292617 1 Patch TD Q72H 01/07/2018 02/03/2018 Inactive hydrocodone 10 mg-acetaminophen 325 mg tablet RxNorm: 999789 2 Tablet(s) PO scheduled TID 01/05/2018 02/03/2018 Inactive Not to exceed 3gm/24hr acetaminophen hydrocodone 10 mg-acetaminophen 325 mg tablet RxNorm: 651000 2 Tablet(s) PO scheduled TID and 1 tab q 4 as needed 01/04/2018 01/04/2018 Inactive Not to exceed 3gm/24hr acetaminophen cyanocobalamin (vit B-12) 1,000 mcg tablet RxNorm: 583111 1 Tablet(s) PO daily 12/28/2017 11/22/2018 Active baclofen 10 mg tablet RxNorm: 508471 Tablet(s) TAKE 1 TABLET THREE TIMES DAILY VIA STOMACH TUBE 12/27/2017 05/25/2018 Active 10/07/2017 5:36:15 PM 10/07/2017 5:36:13 PM N O T I C E Last quantity doesn't match original quantity Duragesic 75 mcg/hr transdermal patch RxNorm: 952043 1 Patch TD Q72H 12/22/2017 01/06/2018 Inactive fentanyl 100 mcg/hr transdermal patch RxNorm: 163024 1 Patch TD Q72H 12/22/2017 01/06/2018 Inactive hydrocodone 10 mg-acetaminophen 325 mg tablet RxNorm: 913724 2 Tablet(s) PO scheduled TID and 1 tab q 4 as needed 12/20/2017 01/03/2018 Inactive Not to exceed 3gm/24hr acetaminophen hyoscyamine 0.125 mg disintegrating tablet RxNorm: 7060534 1-2 Tablet(s) PO Q8 as needed 12/14/2017 No Stop Date Active Duragesic 75 mcg/hr transdermal patch RxNorm: 826133 1 Patch TD Q72H 12/06/2017 12/21/2017 Inactive fentanyl 100 mcg/hr transdermal patch RxNorm: 569156 1 Patch TD Q72H 12/06/2017 12/21/2017 Inactive hydrocodone 10 mg-acetaminophen 325 mg tablet RxNorm: 176799 2 Tablet(s) PO scheduled TID and 1 tab q 4 as needed 11/29/2017 12/19/2017 Inactive Not to exceed 3gm/24hr acetaminophen Duragesic 75 mcg/hr transdermal patch RxNorm: 954131 1 Patch TD Q72H 11/11/2017 12/05/2017 Inactive hydrocodone 10 mg-acetaminophen 325 mg tablet RxNorm: 145337 2 Tablet(s) PO scheduled TID and 1 tab q 4 as needed 11/09/2017 11/28/2017 Inactive Not to exceed 3gm/24hr acetaminophen Levemir FlexTouch U-100 Insulin 100 unit/mL (3 mL) subcutaneous pen RxNorm: 141777 8 Unit(s) SQ QHS 11/09/2017 01/06/2018 Inactive fentanyl 100 mcg/hr transdermal patch RxNorm: 348630 1 Patch TD Q72H 2017 12/05/2017 Inactive hyoscyamine 0.125 mg disintegrating tablet RxNorm: 1093949 1-2 Tablet(s) PO Q8 as needed 11/03/2017 12/13/2017 Inactive carvedilol 3.125 mg tablet RxNorm: 946690 GIVE 1 TABLET VIA PEG TUBE 2 TIMES A DAY 10/22/2017 01/19/2018 Inactive Generic For:COREG 3.125MG 10/22/2017 9:23:30 AM hydrocodone 10 mg-acetaminophen 325 mg tablet RxNorm: 399691 2 Tablet(s) PO scheduled TID and 1 tab q 4 as needed 10/22/2017 2017 Inactive Not to exceed 3gm/24hr acetaminophen fentanyl 100 mcg/hr transdermal patch RxNorm: 403084 1 Patch TD Q72H 10/20/2017 11/07/2017 Inactive Duragesic 75 mcg/hr transdermal patch RxNorm: 781205 1 Patch TD Q72H 10/20/2017 11/10/2017 Inactive lorazepam 0.5 mg tablet RxNorm: 647998 1 Tablet(s) PO BID and 1 tab q 6 hours prn 10/18/2017 No Stop Date Active baclofen 10 mg tablet RxNorm: 180949 TAKE 1 TABLET THREE TIMES DAILY VIA STOMACH TUBE 10/07/2017 12/26/2017 Inactive 10/07/2017 5:36:15 PM 10/07/2017 5:36:13 PM N O T I C E Last quantity doesn't match original quantity cranberry extract 500 mg tablet RxNorm: 4963559 1 Tablet(s) PO QAM 10/04/2017 01/31/2018 Inactive Cipro 500 mg tablet RxNorm: 363214 1 Tablet(s) PO BID 10/04/2017 10/03/2017 Inactive dc keflex hydrocodone 10 mg-acetaminophen 325 mg tablet RxNorm: 702836 2 Tablet(s) PO scheduled TID as needed 10/04/2017 10/21/2017 Inactive Not to exceed 3gm/24hr acetaminophen cranberry extract 500 mg tablet RxNorm: 7702081 1 Tablet(s) PO QAM 10/04/2017 10/03/2017 Inactive Cipro 500 mg tablet RxNorm: 340712 1 Tablet(s) PO BID 10/04/2017 10/10/2017 Inactive dc keflex Duragesic 75 mcg/hr transdermal patch RxNorm: 288038 1 Patch TD Q72H 09/20/2017 10/19/2017 Inactive fentanyl 100 mcg/hr transdermal patch RxNorm: 716429 1 Patch TD Q72H 09/20/2017 10/19/2017 Inactive hyoscyamine 0.125 mg disintegrating tablet RxNorm: 5860655 1 Tablet(s) PO TID and 1 Tablet Q4H prn increased secretions 09/15/2017 11/02/2017 Inactive hydrocodone 10 mg-acetaminophen 325 mg tablet RxNorm: 453003 2 Tablet(s) PO scheduled TID and 1-2 Tabs Q4H PRN pain 09/15/2017 10/03/2017 Inactive Not to exceed 3gm/24hr acetaminophen lorazepam 0.5 mg tablet RxNorm: 759200 1 Tablet(s) PO BID 09/15/2017 10/17/2017 Inactive Lexapro 10 mg tablet RxNorm: 381888 1 Tablet(s) PO daily 09/10/2017 09/14/2017 Inactive lisinopril 10 mg tablet RxNorm: 627316 1 Tablet(s) PO daily 09/09/2017 06/05/2018 Active Levemir FlexTouch U-100 Insulin 100 unit/mL (3 mL) subcutaneous pen RxNorm: 197416 10 Unit(s) daily 09/09/2017 09/15/2017 Inactive Duragesic 75 mcg/hr transdermal patch RxNorm: 970047 1 Patch TD Q72H 09/09/2017 09/19/2017 Inactive nystatin 100,000 unit/gram topical cream RxNorm: 582722 1 Gram(s) TOP TID until healed to gaulding 09/06/2017 01/03/2018 Inactive nystatin 100,000 unit/gram topical cream RxNorm: 216686 1 Gram(s) TOP TID until healed to gaulding 09/06/2017 09/05/2017 Inactive hydrocodone 10 mg-acetaminophen 325 mg tablet RxNorm: 246101 2 Tablet(s) PO scheduled TID as needed 08/31/2017 09/14/2017 Inactive Not to exceed 3gm/24hr acetaminophen fentanyl 100 mcg/hr transdermal patch RxNorm: 340373 1 Patch TD Q72H 08/24/2017 09/19/2017 Inactive fentanyl 50 mcg/hr transdermal patch RxNorm: 955395 1 Patch TD Q72H 08/24/2017 09/08/2017 Inactive fentanyl 25 mcg/hr transdermal patch RxNorm: 422503 1 Patch TD Q72H 08/24/2017 08/24/2017 Inactive hyoscyamine 0.125 mg disintegrating tablet RxNorm: 2357776 Tablet(s) 1-2 Tablet(s) PO Q8 as needed 08/23/2017 09/14/2017 Inactive hydrocodone 10 mg-acetaminophen 325 mg tablet RxNorm: 971263 1 Tablet(s) PO scheduled TID et Q6 hours as needed 08/18/2017 08/30/2017 Inactive Not to exceed 3gm/24hr acetaminophen hydrochlorothiazide 25 mg tablet RxNorm: 644637 GIVE 1 TABLET VIA PEG TUBE ONCE DAILY 08/17/2017 02/12/2018 Active Generic For:HYDRODIURIL 25 MG TABLET 08/17/2017 9:01:54 AM08/11/2017 10:12:00 AM lorazepam 0.5 mg tablet RxNorm: 531360 1/2 Tablet(s) PO BID 08/03/2017 09/14/2017 Inactive fentanyl 100 mcg/hr transdermal patch RxNorm: 539880 1 Patch TD Q72H 07/26/2017 08/23/2017 Inactive fentanyl 25 mcg/hr transdermal patch RxNorm: 386929 1 Patch TD Q72H 07/26/2017 08/23/2017 Inactive hydrocodone 10 mg-acetaminophen 325 mg tablet RxNorm: 331268 1 Tablet(s) PO scheduled TID et Q6 hours as needed 07/16/2017 08/14/2017 Inactive Not to exceed 3gm/24hr acetaminophen hyoscyamine 0.125 mg disintegrating tablet RxNorm: 8412334 Tablet(s) 1-2 Tablet(s) PO Q8 as needed 07/13/2017 08/01/2017 Inactive baclofen 10 mg tablet RxNorm: 533775 TAKE 1 TABLET THREE TIMES DAILY VIA STOMACH TUBE 07/12/2017 10/06/2017 Inactive 07/12/2017 9:04:08 AM N O T I C E Last quantity doesn't match original quantity lorazepam 0.5 mg tablet RxNorm: 524166 1/2 Tablet(s) PO BID 07/02/2017 08/02/2017 Inactive fentanyl 100 mcg/hr transdermal patch RxNorm: 340638 1 Patch TD Q72H 06/28/2017 07/25/2017 Inactive fentanyl 25 mcg/hr transdermal patch RxNorm: 391232 1 Patch TD Q72H 06/28/2017 07/25/2017 Inactive hyoscyamine 0.125 mg disintegrating tablet RxNorm: 7482139 Tablet(s) 1-2 Tablet(s) PO Q8 as needed 06/03/2017 06/22/2017 Inactive fentanyl 25 mcg/hr transdermal patch RxNorm: 139732 1 Patch TD Q72H 05/26/2017 06/24/2017 Inactive Levemir FlexTouch U-100 Insulin 100 unit/mL (3 mL) subcutaneous pen RxNorm: 638573 20 Unit(s) SQ BID 05/26/2017 09/08/2017 Inactive fentanyl 100 mcg/hr transdermal patch RxNorm: 760721 1 Patch TD Q72H 05/26/2017 06/24/2017 Inactive hydrocodone 10 mg-acetaminophen 325 mg tablet RxNorm: 815234 1 Tablet(s) PO scheduled BID et Q6 hours as needed 05/12/2017 05/11/2017 Inactive hydrocodone 10 mg-acetaminophen 325 mg tablet RxNorm: 241153 1 Tablet(s) PO scheduled TID et Q6 hours as needed 05/12/2017 06/10/2017 Inactive Not to exceed 3gm/24hr acetaminophen docusate sodium 100 mg tablet RxNorm: 1823073 1 Tablet(s) PO BID as needed if no bowel movement 05/10/2017 05/09/2017 Inactive lisinopril 20 mg tablet RxNorm: 790083 1 Tablet(s) PO daily 05/10/2017 09/08/2017 Inactive docusate sodium 100 mg tablet RxNorm: 2607582 1 Tablet(s) PO BID as needed if no bowel movement 05/10/2017 09/14/2017 Inactive fentanyl 25 mcg/hr transdermal patch RxNorm: 579246 1 Patch TD Q72H 05/03/2017 05/25/2017 Inactive lorazepam 0.5 mg tablet RxNorm: 437634 1/2 Tablet(s) PO BID 05/03/2017 07/01/2017 Inactive fentanyl 100 mcg/hr transdermal patch RxNorm: 045940 1 Patch TD Q72H 04/27/2017 05/25/2017 Inactive carvedilol 3.125 mg tablet RxNorm: 800731 Tablet(s) GIVE 1 TABLET VIA PEG TUBE DAILY 04/15/2017 10/21/2017 Inactive Levemir FlexTouch 100 unit/mL (3 mL) subcutaneous insulin pen RxNorm: 371099 10 Unit(s) SQ BID 04/15/2017 2017 Inactive hyoscyamine 0.125 mg disintegrating tablet RxNorm: 4377261 1-2 Tablet(s) PO Q8 as needed 04/14/2017 05/03/2017 Inactive hydrocodone 10 mg-acetaminophen 325 mg tablet RxNorm: 436579 1 Tablet(s) PO scheduled BID et Q6 hours as needed 04/13/2017 05/02/2017 Inactive baclofen 10 mg tablet RxNorm: 706355 TAKE 1 TABLET THREE TIMES DAILY VIA STOMACH TUBE 04/08/2017 05/22/2017 Inactive 04/08/2017 9:32:07 AM fentanyl 25 mcg/hr transdermal patch RxNorm: 843665 1 Patch TD Q72H 04/05/2017 05/02/2017 Inactive lidocaine 10 mg/mL (1 %) injection solution RxNorm: 0930827 1 Milliliter(s) Inj daily Mix with rocephin 03/31/2017 03/30/2017 Inactive Pt resides at [facility] lidocaine 10 mg/mL (1 %) injection solution RxNorm: 7963567 1 Milliliter(s) Inj daily Mix with rocephin 03/31/2017 04/06/2017 Inactive Pt resides at [facility] fentanyl 100 mcg/hr transdermal patch RxNorm: 550744 1 Patch TD Q72H 03/29/2017 04/26/2017 Inactive nystatin 100,000 unit/gram topical powder RxNorm: 029153 APPLY UNDER BREASTS TWICE DAILY FOR YEAST SKIN INFECTION AND APPLY TO UNDERARM AND ABDOMINAL FOLDS AND PERIAREA TWICE DAILY 03/29/2017 03/28/2017 Inactive 03/27/2017 9:12:50 AM nystatin 100,000 unit/gram topical powder RxNorm: 309016 APPLY UNDER BREASTS TWICE DAILY FOR YEAST SKIN INFECTION AND APPLY TO UNDERARM AND ABDOMINAL FOLDS AND PERIAREA TWICE DAILY 03/29/2017 09/14/2017 Inactive 03/29/2017 9:42:55 AM03/27/2017 9:12:50 AM hyoscyamine 0.125 mg disintegrating tablet RxNorm: 7149663 1-2 Tablet(s) PO Q8 as needed 03/08/2017 03/27/2017 Inactive fentanyl 25 mcg/hr transdermal patch RxNorm: 551253 1 Patch TD Q72H 03/02/2017 03/31/2017 Inactive hydrocodone 10 mg-acetaminophen 325 mg tablet RxNorm: 861925 1 Tablet(s) PO scheduled BID et Q6 hours as needed 02/17/2017 03/18/2017 Inactive fentanyl 100 mcg/hr transdermal patch RxNorm: 421589 1 Patch TD Q72H 02/17/2017 03/18/2017 Inactive Lexapro 10 mg tablet RxNorm: 797658 1 Tablet(s) PO daily 02/05/2017 04/14/2017 Inactive Lexapro 10 mg tablet RxNorm: 469685 1 Tablet(s) PO daily 02/05/2017 02/04/2017 Inactive fentanyl 25 mcg/hr transdermal patch RxNorm: 523949 1 Patch TD Q72H 02/04/2017 03/01/2017 Inactive cyanocobalamin (vit B-12) 1,000 mcg tablet RxNorm: 452663 1 Tablet(s) PO daily 01/18/2017 12/13/2017 Inactive hyoscyamine 0.125 mg disintegrating tablet RxNorm: 5567797 Tablet(s) 1-2 Tablet(s) PO Q8 as needed 01/18/2017 02/06/2017 Inactive baclofen 10 mg tablet RxNorm: 739005 TAKE 1 TABLET THREE TIMES DAILY VIA STOMACH TUBE 01/04/2017 02/17/2017 Inactive 01/04/2017 9:25:18 AM fentanyl 100 mcg/hr transdermal patch RxNorm: 255481 1 Patch TD Q72H 12/25/2016 01/23/2017 Inactive hydrochlorothiazide 25 mg tablet RxNorm: 384521 Tablet(s) GIVE 1 TABLET VIA PEG TUBE ONCE A DAY 12/14/2016 07/11/2017 Inactive fentanyl 100 mcg/hr transdermal patch RxNorm: 562137 1 Patch TD Q72H 11/25/2016 12/24/2016 Inactive hyoscyamine 0.125 mg disintegrating tablet RxNorm: 0976201 Tablet(s) 1-2 Tablet(s) PO Q8 as needed 11/25/2016 12/14/2016 Inactive nystatin 100,000 unit/gram topical powder RxNorm: 125858 APPLY UNDER BREASTS TWICE DAILY FOR YEAST SKIN INFECTION AND APPLY TO UNDERARM AND ABDOMINAL FOLDS AND PERIAREA TWICE DAILY 11/24/2016 01/22/2017 Inactive 11/24/2016 9:34:02 AM hydrocodone 10 mg-acetaminophen 325 mg tablet RxNorm: 232189 1 Tablet(s) PO scheduled BID et Q6 hours as needed 11/02/2016 12/01/2016 Inactive cyanocobalamin (vit B-12) 1,000 mcg tablet RxNorm: 668882 1 Tablet(s) PO daily 11/02/2016 01/17/2017 Inactive hyoscyamine 0.125 mg disintegrating tablet RxNorm: 6905668 1-2 Tablet(s) PO Q8 as needed 10/19/2016 11/24/2016 Inactive fentanyl 100 mcg/hr transdermal patch RxNorm: 147660 1 Patch TD Q72H 10/13/2016 11/11/2016 Inactive hydrocodone 10 mg-acetaminophen 325 mg tablet RxNorm: 008926 1 Tablet(s) PO scheduled BID et Q6 hours as needed 10/05/2016 11/01/2016 Inactive baclofen 10 mg tablet RxNorm: 186667 TAKE 1 TABLET THREE TIMES DAILY VIA STOMACH TUBE 10/01/2016 11/14/2016 Inactive 10/01/2016 9:24:37 AM carvedilol 3.125 mg tablet RxNorm: 880223 GIVE 1 TABLET VIA PEG TUBE 2 TIMES A DAY 09/30/2016 12/28/2016 Inactive Generic For:COREG 3.125MG 09/30/2016 1:12:28 PM09/25/2016 9:06:11 AM Probiotic Blend 2 million cell-50 mg capsule RxNorm: 1 Capsule(s) PO BID 09/17/2016 09/23/2016 Inactive Keflex 500 mg capsule RxNorm: 127298 1 Capsule(s) PO TID 09/17/2016 09/23/2016 Inactive hyoscyamine 0.125 mg/5 mL oral elixir RxNorm: 5876434 5 Milliliter(s) PO TID 09/08/2016 09/17/2016 Inactive hyoscyamine 0.125 mg/5 mL oral elixir RxNorm: 6111622 5 Milliliter(s) PO TID 09/08/2016 09/07/2016 Inactive hyoscyamine 0.125 mg disintegrating tablet RxNorm: 8004405 1-2 Tablet(s) PO Q8 as needed 09/07/2016 10/18/2016 Inactive fentanyl 100 mcg/hr transdermal patch RxNorm: 235673 1 Patch TD Q72H 09/01/2016 09/30/2016 Inactive ranitidine 150 mg tablet RxNorm: 424971 1 Tablet(s) PO BID 08/25/2016 No Stop Date Active hydrocodone 10 mg-acetaminophen 325 mg tablet RxNorm: 369184 1 Tablet(s) PO scheduled BID et Q6 hours as needed 08/24/2016 09/22/2016 Inactive cyanocobalamin (vit B-12) 1,000 mcg tablet RxNorm: 638674 1 Tablet(s) PO daily 08/12/2016 11/01/2016 Inactive cyanocobalamin (vit B-12) 1,000 mcg tablet RxNorm: 865930 1 Tablet(s) PO daily 08/12/2016 08/11/2016 Inactive hydrocodone 10 mg-acetaminophen 325 mg tablet RxNorm: 887929 1-2 Tablet(s) PO Q6 as needed 08/03/2016 08/17/2016 Inactive fentanyl 100 mcg/hr transdermal patch RxNorm: 049338 1 Patch TD Q72H 08/03/2016 08/31/2016 Inactive nystatin 100,000 unit/gram topical powder RxNorm: 172906 APPLY UNDER BREASTS TWICE DAILY FOR YEAST SKIN INFECTION AND APPLY TO UNDERARM AND ABDOMINAL FOLDS AND PERIAREA TWICE DAILY 07/17/2016 09/14/2016 Inactive 07/17/2016 3:56:54 PM fentanyl 100 mcg/hr transdermal patch RxNorm: 514401 1 Patch TD Q72H 07/15/2016 08/02/2016 Inactive lisinopril 20 mg tablet RxNorm: 041123 1 Tablet(s) PO daily 07/02/2016 03/28/2017 Inactive hydrocodone 10 mg-acetaminophen 325 mg tablet RxNorm: 245959 1-2 Tablet(s) PO Q6 as needed 07/01/2016 07/15/2016 Inactive Xarelto 20 mg tablet RxNorm: 5244302 Tablet(s) TAKE 1 TABLET VIA PEG TUBE AT BEDTIME 06/19/2016 04/14/2017 Inactive fentanyl 100 mcg/hr transdermal patch RxNorm: 510680 1 Patch TD Q72H 06/17/2016 07/14/2016 Inactive nystatin 100,000 unit/gram topical powder RxNorm: 438605 APPLY TO UNDER BREASTS TWICE DAILY FOR YEAST SKIN INFECTION AND APPLY TO UNDERARM AND ABDOMINAL FOLDS AND PERIAREA TWICE DAILY 06/15/2016 07/16/2016 Inactive Generic For:MYCOSTATIN 100,000 UNITS/GM PW 06/15/2016 12:28:26 PM fentanyl 100 mcg/hr transdermal patch RxNorm: 519988 1 Patch TD Q72H 06/05/2016 06/16/2016 Inactive hydrocodone 10 mg-acetaminophen 325 mg tablet RxNorm: 475767 1-2 Tablet(s) PO Q6 as needed 06/02/2016 06/16/2016 Inactive Probiotic Blend 2 million cell-50 mg capsule RxNorm: 1 Capsule(s) PO BID 05/13/2016 05/19/2016 Inactive nitrofurantoin 100 mg capsule RxNorm: 956917 1 Capsule(s) PO BID 05/13/2016 05/19/2016 Inactive nitrofurantoin 100 mg capsule RxNorm: 653271 1 Capsule(s) PO BID 05/13/2016 05/12/2016 Inactive fentanyl 75 mcg/hr transdermal patch RxNorm: 435191 1 Patch TD Q72H 05/13/2016 06/04/2016 Inactive Keflex 500 mg capsule RxNorm: 506502 1 Capsule(s) PO TID 05/07/2016 05/13/2016 Inactive Patient at [facility] Keflex 500 mg capsule RxNorm: 165332 1 Capsule(s) PO TID 05/07/2016 05/06/2016 Inactive hydrocodone 10 mg-acetaminophen 325 mg tablet RxNorm: 990202 1-2 Tablet(s) PO Q6 as needed 05/04/2016 06/01/2016 Inactive hydrochlorothiazide 25 mg tablet RxNorm: 044432 Tablet(s) GIVE 1 TABLET VIA PEG TUBE ONCE A DAY 04/29/2016 11/24/2016 Inactive hydrochlorothiazide 25 mg tablet RxNorm: 058069 GIVE 1 TABLET VIA PEG TUBE ONCE A DAY 04/22/2016 04/28/2016 Inactive Generic For:HYDRODIURIL 25 MG TABLET refill request fentanyl 75 mcg/hr transdermal patch RxNorm: 698724 1 Patch TD Q72H 04/17/2016 05/12/2016 Inactive Xarelto 20 mg tablet RxNorm: 3881750 TAKE 1 TABLET VIA PEG TUBE AT BEDTIME 04/16/2016 06/14/2016 Inactive 04/16/2016 9:08:52 AM citalopram 40 mg tablet RxNorm: 455633 1 Tablet(s) PO daily 04/02/2016 02/25/2017 Inactive citalopram 40 mg tablet RxNorm: 086325 1 Tablet(s) PO daily 03/27/2016 04/01/2016 Inactive hydrocodone 10 mg-acetaminophen 325 mg tablet RxNorm: 055480 1-2 Tablet(s) PO Q6 as needed 03/27/2016 04/25/2016 Inactive fentanyl 75 mcg/hr transdermal patch RxNorm: 258892 1 Patch TD Q72H 03/18/2016 04/16/2016 Inactive hydrocodone 10 mg-acetaminophen 325 mg tablet RxNorm: 589453 1-2 Tablet(s) PO Q6 as needed 03/11/2016 03/26/2016 Inactive citalopram 40 mg tablet RxNorm: 878965 1 Tablet(s) PO daily 03/04/2016 03/26/2016 Inactive Levemir FlexTouch U-100 Insulin 100 unit/mL (3 mL) subcutaneous pen RxNorm: 297623 20 Unit(s) SQ BID 03/02/2016 09/27/2016 Inactive lisinopril 20 mg tablet RxNorm: 367578 1 Tablet(s) PO daily 02/25/2016 07/01/2016 Inactive Ativan 0.5 mg tablet RxNorm: 738639 1 Tablet(s) PO Q4H as needed 02/18/2016 04/14/2017 Inactive Xarelto 20 mg tablet RxNorm: 3137736 TAKE 1 TABLET VIA PEG TUBE AT BEDTIME 02/12/2016 04/11/2016 Inactive 02/12/2016 9:08:22 AM hydrocodone 10 mg-acetaminophen 325 mg tablet RxNorm: 699018 1-2 Tablet(s) PO Q6 as needed 02/12/2016 03/10/2016 Inactive fentanyl 75 mcg/hr transdermal patch RxNorm: 681100 1 Patch TD Q72H 02/11/2016 03/11/2016 Inactive citalopram 20 mg tablet RxNorm: 364387 1 Tablet(s) PO daily 01/28/2016 03/03/2016 Inactive fentanyl 75 mcg/hr transdermal patch RxNorm: 475689 1 TD Q72H 01/17/2016 02/10/2016 Inactive hydrocodone 10 mg-acetaminophen 325 mg tablet RxNorm: 550592 1-2 Tablet(s) PO Q6 as needed 01/07/2016 02/05/2016 Inactive fentanyl 50 mcg/hr transdermal patch RxNorm: 439664 1 TD Q72H 01/01/2016 01/16/2016 Inactive fentanyl 50 mcg/hr transdermal patch RxNorm: 393799 1 TD q 3 days 12/26/2015 12/31/2015 Inactive Xarelto 20 mg tablet RxNorm: 0008590 TAKE 1 TABLET VIA PEG TUBE AT BEDTIME 12/17/2015 02/11/2016 Inactive 12/16/2015 3:27:57 PM12/14/2015 9:45:17 AM hydrocodone 10 mg-acetaminophen 325 mg tablet RxNorm: 507798 1-2 Tablet(s) PO Q6 as needed 12/06/2015 01/04/2016 Inactive fentanyl 50 mcg/hr transdermal patch RxNorm: 076399 1 TD q 3 days 12/06/2015 12/25/2015 Inactive fentanyl 25 mcg/hr transdermal patch RxNorm: 089815 1 TD q 3 days 11/18/2015 12/05/2015 Inactive Zithromax Z-Eliu 250 mg tablet RxNorm: 690398 1 Tablet(s) PO UD 10/09/2015 02/26/2016 Inactive z pack as directed- please write out instructions- pt at [facility] nystatin 100,000 unit/gram topical powder RxNorm: 961759 APPLY TO UNDER BREASTS TWICE DAILY FOR YEAST SKIN INFECTION AND APPLY TO UNDERARM AND ABDOMINAL FOLDS AND PERIAREA TWICE DAILY 10/07/2015 12/05/2015 Inactive Generic For:MYCOSTATIN 100,000 UNITS/GM PW 10/05/2015 12:07:35 PM fentanyl 25 mcg/hr transdermal patch RxNorm: 720634 1 TD q 3 days 10/03/2015 11/01/2015 Inactive fentanyl 25 mcg/hr transdermal patch RxNorm: 600188 1 TD q 3 days 09/27/2015 10/02/2015 Inactive fentanyl 25 mcg/hr transdermal patch RxNorm: 048199 1 TD q 3 days 09/17/2015 09/26/2015 Inactive fentanyl 25 mcg/hr transdermal patch RxNorm: 827800 1 TD q 3 days 08/30/2015 09/16/2015 Inactive hydrocodone 5 mg-acetaminophen 325 mg tablet RxNorm: 976598 1 Tablet(s) PO Q6 as needed 08/30/2015 09/28/2015 Inactive Diflucan 100 mg tablet RxNorm: 081342 1 Tablet(s) Miscellaneous per peg daily 07/29/2015 08/04/2015 Inactive fentanyl 25 mcg/hr transdermal patch RxNorm: 046679 1 TD q 3 days 07/18/2015 08/29/2015 Inactive hydrocodone 5 mg-acetaminophen 325 mg tablet RxNorm: 218522 1 Tablet(s) PO Q6 as needed 07/18/2015 08/29/2015 Inactive Diflucan 100 mg tablet RxNorm: 219843 1 Tablet(s) Miscellaneous per peg daily 06/17/2015 06/23/2015 Inactive Senna-S 8.6 mg-50 mg tablet RxNorm: 480203 1 Tablet(s) PO daily as needed constipation No Start Date Active Dulcolax (bisacodyl) 10 mg rectal suppository RxNorm: 900381 1 Suppository RTL daily as needed constipation No Start Date Active albuterol sulfate concentrate 5 mg/mL(0.5 %) solution for nebulization RxNorm: 425012 1 Vial INH daily as needed congestion No Start Date Active polyethylene glycol 3350 17 gram/dose oral powder RxNorm: 980191 17 Gram(s) PO daily as needed constipation No Start Date Active baclofen 10 mg tablet RxNorm: 261722 1 Tablet(s) PO TID No Start Date 09/30/2016 Inactive Ativan 0.5 mg tablet RxNorm: 387682 1 Tablet(s) PO Q4H as needed No Start Date 02/17/2016 Inactive ranitidine 150 mg tablet RxNorm: 858538 1 Tablet(s) PO daily No Start Date 08/24/2016 Inactive carvedilol 3.125 mg tablet RxNorm: 623855 1 Tablet(s) PO daily No Start Date 09/29/2016 Inactive citalopram 40 mg tablet RxNorm: 956218 1 Tablet(s) PO daily No Start Date 01/27/2016 Inactive Probiotic Blend oral RxNorm: oral No Start Date 05/12/2016 Inactive hydrochlorothiazide 25 mg tablet RxNorm: 720783 1 Tablet(s) PO daily No Start Date 04/21/2016 Inactive Levemir FlexTouch 100 unit/mL (3 mL) subcutaneous insulin pen RxNorm: 615592 10 Unit(s) SQ BID No Start Date 03/01/2016 Inactive Zithromax Z-Eilu 250 mg tablet RxNorm: 107172 1 Tablet(s) PO UD No Start Date 10/08/2015 Inactive z pack as directed- please write out instructions- pt at [facility] nystatin 100,000 unit/gram topical powder RxNorm: 038546 Gram(s) TOP BID as needed No Start Date 10/06/2015 Inactive pravastatin 40 mg tablet RxNorm: 698693 Tablet(s) PO daily No Start Date 04/14/2017 Inactive lorazepam 0.5 mg tablet RxNorm: 125921 1/2 Tablet(s) PO BID No Start Date 05/02/2017 Inactive Xarelto 20 mg tablet RxNorm: 8463375 1 Tablet(s) PO daily No Start Date 12/16/2015 Inactive fentanyl 25 mcg/hr transdermal patch RxNorm: 645940 1 TD q 3 days No Start Date 07/17/2015 Inactive lisinopril 20 mg tablet RxNorm: 215079 1 Tablet(s) PO daily No Start Date 02/24/2016 Inactive hydrocodone 5 mg-acetaminophen 325 mg tablet RxNorm: 081458 1 Tablet(s) PO Q6 as needed No Start Date 07/17/2015 Inactive citalopram 40 mg tablet RxNorm: 220258 1 Tablet(s) PO daily No Start Date 03/03/2016 Inactive hyoscyamine 0.125 mg disintegrating tablet RxNorm: 8028524 1-2 Tablet(s) PO Q8 as needed No [...] Code Item Item Code Result Date Prealbumin 772065 PREALBUMIN 27 mg/dL 11/24/2017 %Hba1C Rxv306 % HbA1c 94664- 6 5.5 % 11/04/2017 %Hba1C Gto468 Gluc Ave 111 mg/dL 11/04/2017 Culture Urine [id number] URINE CULTURE SEE NOTES 10/04/2017 Culture Urine [id number] Continued Results 10/04/2017 Urine Culture Ucult Complete [...] Ord28 U-Com Culture to follow 10/01/2017 B12 Gyy171 B12 >1500.00 pg/ml 02/19/2017 Cbc With Differential [...] 31.5 pg 02/02/2017 Cbc With Differential Ord2 [place]% 8.3 % 02/02/2017 Cbc With Differential Ord2 [...] 2.28 K/ul 02/02/2017 Cbc With Differential Ord2 [place] ABS# 0.6 K/ul 02/02/2017 Cbc With Differential Ord2 Eos ABS# 0.4 K/ul 02/02/2017 Cbc With Differential Ord2 Baso ABS# 0.0 K/ul 02/02/2017 %Hba1C Sug646 % HbA1c 21641- 6 5.2 % 02/02/2017 %Hba1C Php778 Gluc Ave 103 mg/dL 02/02/2017 Comp Metabolic Pjg008 NA 138 mEq/L 02/02/2017 Comp Metabolic Vhf405 K 4.5 mEq/L 02/02/2017 Comp Metabolic Ivt412 CL 98 mEq/L 02/02/2017 Comp Metabolic Std700 CO2 37.0 mEq/L 02/02/2017 Comp Metabolic Qim010 ANION GAP 8 02/02/2017 Comp Metabolic Uma392 GLUCOSE 94 mg/dL 02/02/2017 Comp Metabolic Jtk291 Creat 0.7 mg/dL 02/02/2017 Comp Metabolic Mhl068 eGFR 88 ml/min/1.73m2 02/02/2017 Comp Metabolic Iwh647 BUN 36 mg/dL 02/02/2017 Comp Metabolic Eyu708 B/C Ratio 50.7 Ratio 02/02/2017 Comp Metabolic Ska418 CALCIUM 9.0 mg/dL 02/02/2017 Comp Metabolic Hww981 ALK PHOS 78 U/L 02/02/2017 Comp Metabolic Cec838 AST(SGOT) 22 U/L 02/02/2017 Comp Metabolic Teq773 ALT(SGPT) 28 U/L 02/02/2017 Comp Metabolic Kcm210 BILI T 0.3 mg/dL 02/02/2017 Comp Metabolic Dqy570 ALBUMIN 3.3 g/dL 02/02/2017 Comp Metabolic Knj019 TPRO 5.9 g/dL 02/02/2017 Comp Metabolic Lfd707 GLOB 2.6 g/dL 02/02/2017 Comp Metabolic Pzx787 A/G Ratio 1.3 Ratio 02/02/2017 Comp Metabolic Pmu271 Osmo 284 mOsmo 02/02/2017 %Hba1C Hai706 % HbA1c 94878- 6 5.0 % 10/29/2016 %Hba1C Dkb962 Gluc Ave 97 mg/dL 10/29/2016 Culture Urine [id number] URINE CULTURE SEE NOTES 09/21/2016 Culture Urine [id number] Continued Results 09/21/2016 Urine Culture Ucult Complete [...] 41.3 % 07/30/2016 Cbc With Differential Ord2 [place]% 7.2 % 07/30/2016 Cbc With Differential Ord2 [...] 2.69 K/ul 07/30/2016 Cbc With Differential Ord2 [place] ABS# 0.5 K/ul 07/30/2016 Cbc With Differential Ord2 Eos ABS# 0.5 K/ul 07/30/2016 Cbc With Differential Ord2 Baso ABS# 0.0 K/ul 07/30/2016 Comp Metabolic Nzk233 NA 141 mEq/L 07/30/2016 Comp Metabolic Kie268 K 4.3 mEq/L 07/30/2016 Comp Metabolic Mjt581 CL 100 mEq/L 07/30/2016 Comp Metabolic Mhy367 CO2 33.0 mEq/L 07/30/2016 Comp Metabolic Ltr608 ANION GAP 12 07/30/2016 Comp Metabolic Cql889 GLUCOSE 64 mg/dL 07/30/2016 Comp Metabolic Dfd806 Creat 0.5 mg/dL 07/30/2016 Comp Metabolic Nbl938 eGFR 126 ml/min/1.73m2 07/30/2016 Comp Metabolic Cog550 BUN 25 mg/dL 07/30/2016 Comp Metabolic Dua661 B/C Ratio 48.1 Ratio 07/30/2016 Comp Metabolic Slq607 CALCIUM 8.9 mg/dL 07/30/2016 Comp Metabolic Opb484 ALK PHOS 90 U/L 07/30/2016 Comp Metabolic Jjk272 AST(SGOT) 22 U/L 07/30/2016 Comp Metabolic Mos301 ALT(SGPT) 36 U/L 07/30/2016 Comp Metabolic Qso672 BILI T 0.3 mg/dL 07/30/2016 Comp Metabolic Ktz678 ALBUMIN 3.4 g/dL 07/30/2016 Comp Metabolic Uba833 TPRO 6.0 g/dL 07/30/2016 Comp Metabolic Oul484 GLOB 2.7 g/dL 07/30/2016 Comp Metabolic Wfe455 A/G Ratio 1.3 Ratio 07/30/2016 Comp Metabolic Uwc400 Osmo 284 mOsmo 07/30/2016 A1C Frequency Wba134 A1CF 49477-0 Last A1C performed at [facility] [place]: 05-12-2016 07/30/2016 %Hba1C Yhx039 % HbA1c 33645- 6 5.2 % 05/12/2016 %Hba1C Uet749 Gluc Ave 103 mg/dL 05/12/2016 Culture Urine [id number] URINE CULTURE SEE NOTES 05/11/2016 Urine Culture [...] Urinalysis Ord28 U-Yeast NEGATIVE 05/06/2016 Culture Urine [id number] URINE CULTURE SEE NOTES 03/17/2016 Culture Urine [id number] Continued Results 03/17/2016 Urine Culture Ucult Complete [...] 32.0 pg 02/11/2016 Cbc With Differential Ord2 [place]% 9.1 % 02/11/2016 Cbc With Differential Ord2 [...] 2.59 K/ul 02/11/2016 Cbc With Differential Ord2 [place] ABS# 0.6 K/ul 02/11/2016 Cbc With Differential Ord2 Eos ABS# 0.3 K/ul 02/11/2016 Cbc With Differential Ord2 Baso ABS# 0.0 K/ul 02/11/2016 Comp Metabolic Mia538 NA 137 mEq/L 02/11/2016 Comp Metabolic Hmd628 K 4.4 mEq/L 02/11/2016 Comp Metabolic Acc216 CL 100 mEq/L 02/11/2016 Comp Metabolic Raq542 CO2 25.0 mEq/L 02/11/2016 Comp Metabolic Hna072 ANION GAP 16 02/11/2016 Comp Metabolic Zth654 GLUCOSE 99 mg/dL 02/11/2016 Comp Metabolic Luj878 Creat 0.6 mg/dL 02/11/2016 Comp Metabolic Qjt104 eGFR 99 ml/min/1.73m2 02/11/2016 Comp Metabolic Rld302 BUN 27 mg/dL 02/11/2016 Comp Metabolic Bgx979 B/C Ratio 42.2 Ratio 02/11/2016 Comp Metabolic Lwy039 CALCIUM 9.2 mg/dL 02/11/2016 Comp Metabolic Vcu763 ALK PHOS 74 U/L 02/11/2016 Comp Metabolic Iim909 AST(SGOT) 24 U/L 02/11/2016 Comp Metabolic Uad137 ALT(SGPT) 26 U/L 02/11/2016 Comp Metabolic Wls048 BILI T 0.5 mg/dL 02/11/2016 Comp Metabolic Cpr006 ALBUMIN 3.5 g/dL 02/11/2016 Comp Metabolic Ovr286 TPRO 6.2 g/dL 02/11/2016 Comp Metabolic Emc893 GLOB 2.7 g/dL 02/11/2016 Comp Metabolic Hoc860 A/G Ratio 1.3 Ratio 02/11/2016 Comp Metabolic Zii071 Osmo 279 mOsmo 02/11/2016 Review of Systems [...] 1: 128/86 Code: 8480-6 BMI: 31.4 Code: 66343-5 Heart Rate 1: 72 bpm Height: 5'1" Weight: 166 lbs 06/17/2015 Blood Pressure 1: 110/78 Code: 8480-6 BMI: 33.3 Code: 19054-4 Heart Rate 1: 74 bpm Height: 5'1" [...] Present Encounters Encounter Performer Location Codes Date ([id number]) 09027 EST. PATIENT, LEVEL IV Diagnosis: Type 2 diabetes mellitus without complications[ICD10: E11.9] Diagnosis: Essential (primary) hypertension[ICD10: I10] Diagnosis: Chronic pain syndrome[ICD10: G89.4] Carlyn Everett MD, [facility] CPT-4: 05147 01/07/2018 [id number]) 57918 EST. PATIENT, LEVEL IV Diagnosis: Essential (primary) hypertension[ICD10: I10] Diagnosis: Type 2 diabetes mellitus without complications[ICD10: E11.9] Carlyn Everett MD, [facility] CPT-4: 32684 2017 [id number]) 77104 EST. PATIENT, LEVEL IV Diagnosis: Type 2 diabetes mellitus with hyperglycemia[ICD10: E11.65] Diagnosis: Essential (primary) hypertension[ICD10: I10] Diagnosis: Pain in left shoulder[ICD10: M25.512] Diagnosis: Pain in right shoulder[ICD10: M25.511] Diagnosis: Pain in left knee[ICD10: M25.562] Diagnosis: Pain in right knee[ICD10: M25.561] Vonda Everett MD, [facility] CPT- 4: 73013 09/09/2017 76479 EST. PATIENT, LEVEL IV Diagnosis: Essential (primary) hypertension[ICD10: I10] Diagnosis: Type 2 diabetes mellitus with hyperglycemia[ICD10: E11.65] Diagnosis: Low back pain[ICD10: M54.5] Sunitha Everett MD, [facility] CPT-4: 00767 06/08/2017 [id number]) 27463 EST. PATIENT, LEVEL IV Diagnosis: Essential (primary) hypertension[ICD10: I10] Diagnosis: Type 2 diabetes mellitus with hyperglycemia[ICD10: E11.65] Diagnosis: Low back pain[ICD10: M54.5] Sunitha Everett MD, [facility] CPT-4: 71683 04/15/2017 [id number]) 60765 EST. PATIENT, LEVEL IV Diagnosis: Essential (primary) hypertension[ICD10: I10] Diagnosis: Type 2 diabetes mellitus with hyperglycemia[ICD10: E11.65] Diagnosis: Low back pain[ICD10: M54.5] Vonda Everett MD, [facility] CPT-4: 69394 02/16/2017 82372 EST. 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] Diagnosis: Ataxia following cerebral infarction[ICD10: I69.393] Diagnosis: 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] Diagnosis: Dysphagia following cerebral infarction[ICD10: I69.391] 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 (15 min) Moderate 2017 Patient [...] to 175mcg. 09/09/2017 Appointment: Vonda Everett WPtel: [facility] [place] (15 min) Moderate 09/09/2017 Patient Education: [...] record. 06/08/2017 App[facility]ment[phone] [facility] (30 min) Complex 06/08/2017 Patient [...] over-medication. 04/15/2017 Appointment: [facility] [phone] [facility] (30 min) Complex 04/15/2017 Patient [...] today. 02/16/2017 [phone] (15 min) Moderate 02/16/2017 Patient Education: Patient [...] concerns. 11/09/2016 Appointment: [facility] [phone] [facility] (30 min) Complex 11/09/2016 Patient Education: Patient Medication Summary Completed 11/09/2016 Care Plan: Referral Order SNOMED-CT : [id number] Pending 11/09/2016 Patient Education: Patient Medication Summary [...] Follow up weight in 1 month Neck grka-qlyeeyxaudp-Mido PT focus neck/upper body Right earache-cerumen removed with water pick today in the office 07/18/2015 Appointment: (30 min) Complex 07/18/2015 Patient Education: Patient Medication Summary Completed 07/18/2015 Patient Education: Obesity Completed 07/18/2015 Patient Education: .Cervicalgia Neck Pain Completed 07/18/2015 [facility] W[facility]: [phone] [facility] Referral Completed 06/25/2015 Visit Plan: Hypertension - [...] liver response to medications. [facility] for post stroke - left sided weakness, neck stiffness, upper extremity weakness Diabetes Mellitus - controlled - per family report - check labs this week, get report from and [facility]. I spent over an hour with the patient in direct contact. 06/17/2015 Appointment: Vonda Everett WPtel: [phone] [facility] New Patient 06/17/2015 Patient Education: Patient Medication Summary Completed 06/17/2015 Patient Education: Obesity Completed 06/17/2015 Patient Education: Hypertension Completed 06/17/2015 Care Plan: Referral Order SNOMED-CT : [id number] Ordered 06/17/2015 Referral: Jorge Luis Carroll Referral Initiated [facility] WPtel: [phone] [facility] Referral Appointment Requested Instructions Comment . Hypertension [...] [facility] medications. [facility] for post stroke - left sided weakness, neck stiffness, upper extremity weakness Diabetes Mellitus - controlled - per family report - check labs this week, get report from and [facility]. I spent over an hour with the [...] Follow up weight in 1 month Neck jvtm-rosnnvpxiud-Jqlp PT focus neck/upper body Right earache-cerumen removed [...] to 4 units daily -monitor blood sugars RBE-pnpdxnvopp-az changes Chronic pain -well controlled with fentanyl [...]
--- OUTSIDE RECORDS SUMMARY | 2018-08-09 12:54 | XMS REPORT ---
Author Author Migration, Doctor Organization [facility] Address Unknown Phone Unavailable Care Team Providers Care Crisis Counselor Name Role Phone Migration, Doctor Unavailable Unavailable PROBLEMS Type Condition ICD9-CM Code PSB31-AH Code Onset Dates Condition Status SNOMED Code Problem Hypertension 401.9 Active 28739679 Problem Diabetes 250.00 Active 05467603 Problem Flexion contractures M24.50 Active 755728276 Problem Diabetes E11.9 Active 91983553 Problem Hemiparesis affecting dominant side as late effect of cerebrovascular accident 438.21 Active 491227770 Problem Dysphasia status post cerebrovascular accident 438.12 Active 715960895 Problem Arthritis M19.90 Active 6713808 Problem Dysphagia as late effect of cerebrovascular accident (CVA) I69.391 Active [id number] ALLERGIES No Information ENCOUNTERS Encounter Location Date Diagnosis [facility] [id number] [place] [address] Sep, [facility] [id number] [place] [address] Oct, [facility] [id number] [place] [address] Sep, [facility] [id number] [place] [address] May, Pain R52 [facility] [id number] [place] [address] May, Pain R52 [facility] [id number] [place] [address] Apr, [facility] [id number] [place] [address] Apr, Pain R52 [facility] [id number] [place] [address] Apr, Flexion contractures M24.50 ; Diabetes E11.9 and Hematemesis K92.0 [facility] [id number] [place] [address] Apr, [facility] [id number] [place] [address] Apr, [facility] [id number] [place] [address] Mar, Pain R52 [facility] [id number] [place] [address] Mar, [facility] [address] [address] Feb, [facility] [id number] [place] [address] Jan, Arthritis M19.90 ; Dysphasia status post cerebrovascular accident 438.12 and Dysphagia as late effect of cerebrovascular accident (CVA) I69.391 [facility] [id number] [place] [address] Dec, [facility] [id number] [place] [address] Dec, Status post stroke Z86.73 ; Hemiplegia affecting left nondominant side G81.94 ; Dysphasia R47.02 and Aphasia R47.01 [facility] [id number] [place] [address] 30 Nov, 2014 Status post CVA V12.54 ; Dysphasia status post cerebrovascular accident 438.12 ; Aphasia 784.3 ; Hemiparesis affecting dominant side as late effect of cerebrovascular accident 438.21 and Diabetes 250.00 [facility] [id number] [place] [address] 17 Nov, 2014 [facility] [id number] [place] [address] 16 Nov, 2014 [place] [address] [place] [address] 16 Nov, 2014 Status post CVA V12.54 ; Diabetes 250.00 and Hypertension 401.9 [facility] [id number] [place] [address], [place] [address] 14 Nov, 2014 [facility] [id number] [place] [address] 14 Nov, 2014 [facility] [id number] [place] [address] 10 Nov, 2014 [facility] [id number] [place] [address] 09 Nov, 2014 [facility] [id number] [place] [address] 04 Nov, 2014 [facility] [id number] [place] [address] 03 Nov, 2014 [facility] [id number] [place] [address] 03 Nov, 2014 [facility] [id number] [place] [address] 02 Nov, 2014 [facility] [id number] [place] [address] Oct, [facility] [address] [address] Oct, [facility] [address] [address] Oct, DM type 2 (diabetes mellitus, type 2) 250.00 [facility] [id number] [place] [address] 24 Aug, 2014 [facility] [address] [address] July, [facility] [address] [id number] [id number] July, Dental examination V72.2 [facility] [place] [facility] [address] [id number] [place] [address] 14 Jun, 2014 [facility] [place] [facility] [address] [id number] [place] [address] Jun, [facility] [place] [facility] [address] [id number] [place] [address] May, [facility] [place] [facility] [address] [id number] [place] [address] May, [facility] [place] [facility] [address] [id number] [place] [address] May, [facility] [place] [facility] [address] [id number] [place] [address] Apr, [facility] [place] [facility] [address] [facility] [id number] [address] Apr, [facility] [place] [facility] [address] [facility] [id number], [place] [address] Mar, [facility] [place] [facility] [address] [facility] [id number], [place] [address] Mar, [facility] [place] [facility] [address] [facility] [id number], [place] [address] Feb, [facility] [place] [facility] [address] [facility] [id number], [place] [address] Feb, [facility] [place] [facility] [address] [id number], [place] [address] Feb, [facility] [place] [facility] [address] [id number], [place] [address] Feb, [facility] [place] [facility] [address] [facility] [id number], [place] [address] Jan, [facility] [place] [facility] [address] [facility] [id number], [place] [address] Dec, [facility] [place] [facility] [address] [id number], [place] [address] Dec, [facility] [place] [facility] [address] [id number] [place] [address] Dec, [facility] [place] [facility] [address] [id number] [place] [address] Dec, [facility] [place] [facility] [address] [id number] [place] [address] Dec, [facility] [place] [facility] [address] [id number] [place] [address] Dec, [facility] [place] [facility] [address] [id number] [place] [address] Dec, [facility] [place] [facility] [address] [id number] [place] [address] Nov, [facility] [place] [facility] [address] [id number] [place] [address] Nov, [facility] [place] [facility] [address] [id number] [place] [address] Nov, [facility] [place] [facility] [address] [id number] [place] [address] Nov, [facility] [place] [facility] [address] [id number] [place] [address] Nov, [facility] [place] [facility] [address] [id number] [place] [address] Oct, [facility] [place] [facility] [address] [id number], [place] [address] Oct, [facility] [place] [facility] [address] [id number] [place] [address] Oct, [facility] [place] [facility] [address] [id number] [place] [address] Oct, [facility] [place] [facility] [address] [facility] [id number] [place] [address] Sep, [facility] [place] [facility] [address] [id number] [place] [address] Sep, [facility] [place] [facility] [address] [id number] [place] [address] Sep, [facility] [place] [facility] [address] [id number] [place] [address] Sep, [facility] [place] [facility] [address] [id number] [place] [address] Sep, [facility] [place] [facility] [address] [id number] [place] [address] Sep, [facility] [place] [facility] [address] [id number] [place] [address] Aug, [facility] [place] [facility] [address] [id number] [place] [address] Aug, [facility] [place] [facility] [address] [id number] [place] [address] Aug, [facility] [place] [facility] [address] [id number] [place] [address] Aug, [facility] [place] [facility] [address] [id number] [place] [address] Aug, [facility] [place] [facility] [address] [id number] [place] [address] Aug, [facility] [place] [facility] [address] [id number] [place] [address] Aug, [facility] [place] [facility] [address] [id number] [place] [address] Aug, [facility] [place] [facility] [address] [id number] [place] [address] July, [facility] [place] [facility] [address] [id number] [place] [address] July, [facility] [place] [facility] [address] [id number] [place] [address] July, [facility] [place] [facility] [address] [id number] [place] [address] July, [facility] [place] [facility] [address] [id number] [place] [address] July, [facility] [place] [facility] [address] [id number] [place] [address] July, [facility] [place] [facility] [address] [id number] [place] [address] July, [facility] [place] [facility] [address] [id number] [place] [address] July, [facility] [place] [facility] [address] [id number] [place] [address] Jun, [facility] [place] [facility] [address] [id number] [place] [address] Jun, [facility] [place] [facility] [address] [id number] [place] [address] Jun, [facility] [place] [facility] [address] [id number] [place] [address] Jun, [facility] [place] [facility] [address] [id number] [place] [address] Jun, [facility] [place] [facility] [address] [id number] [place] [address] Jun, [facility] [place] [facility] [address] [id number], [place] [address] Jun, [facility] [place] [facility] [address] [id number] [place] [address] Jun, [facility] [place] [facility] [address] [id number] [place] [address] Jun, [facility] [place] [facility] [address] [id number] [place] [address] Apr, [facility] [place] [facility] [address] [id number] [place] [address] Apr, [facility] [address] [id number] [place] [address] Apr, [facility] [place] [facility] [address] [id number] [place] [address] 14 Apr, 2013 [facility] [address] [id number] [place] [address] Feb, [facility] [place] [facility] [address] [id number] [place] [address] Feb, [facility] [address] [id number] [place] [address] Feb, [facility] [place] [facility] [address] [id number] [place] [address] Jan, [facility] [place] [facility] [address] [id number] [place] [address] Jan, [facility] [address] [id number] [place] [address] Jan, [facility] [place] [facility] [address] [id number] [place] [address] Jan, [facility] [address] [facility] [id number] [place] [address] Jan, [facility] [place] [facility] [address] [id number] [place] [address] Jan, [facility] [place] [facility] [address] [id number] [place] [address] Dec, [facility] [place] [facility] [address] [id number] [place] [address] Dec, [facility] [place] [facility] [address] [id number] [place] [address] Dec, [facility] [place] [facility] [address] [id number] [place] [address] Dec, [facility] [place] [facility] [address] [id number] [place] [address] Dec, [facility] [place] [facility] [address] [id number] [place] [address] Dec, [facility] [place] [facility] [address] [id number] [place] [address] Dec, [facility] [place] [facility] [address] [id number] [place] [address] Dec, [facility] [place] [facility] [address] [id number] [place] [address] Dec, [facility] [place] [facility] [address] [id number] [place] [address] Dec, [facility] [place] [facility] [address] [id number] [place] [address] Nov, [facility] [place] [facility] [address] [id number] [place] [address] Nov, [facility] [place] [facility] [address] [id number] [place] [address] Oct, [facility] [place] [facility] [address] [id number], [place] [address] Oct, [facility] [place] [facility] [address] [id number], [place] [address] Oct, [facility] [place] [facility] [address] [id number], [place] [address] Oct, [facility] [place] [facility] [address] [id number] [place] [address] Sep, [facility] [place] [facility] [address] [id number], [place] [address] Sep, [facility] [place] [facility] [address] [id number], [place] [address] Sep, [facility] [place] [facility] [address] [id number], [place] [address] Aug, [facility] [address] [id number] [place] [address] July, [facility] [address] [id number] [place] [address] July, [facility] [address] [facility] [id number] [place] [address] Jun, [facility] [address] [id number] [place] [address] 24 Jun, 2012 [facility] [address] [id number] [place] [address] Jun, [facility] [address] [facility] [id number] [place] [address] Jun, [facility] [id number] [place] [address] Jun, [facility] [address] [id number] [place] [address] Jun, [facility] [id number] [place] [address] Apr, [facility] [id number] [place] [address] Apr, [facility] [id number] [place] [address] Feb, [facility] [address] [id number] [place] [address] Feb, [facility] [place] [facility] [address] [id number] [place] [address] Jan, [facility] [place] [facility] [address] [facility] [id number] [place] [address] Jan, [facility] [id number] [place] [address] Dec, [facility] [place] [facility] [address] [id number] [place] [address] Dec, [facility] [place] [facility] [address] [id number] [place] [address] Dec, [facility] [place] [facility] [address] [id number] [place] [address] Dec, [facility] [place] [facility] [address] [id number] [place] [address] Dec, [facility] [place] [facility] [address] [id number] [place] [address] Dec, [facility] [place] [facility] [address] [id number] [place] [address] Dec, [facility] [place] [facility] [address] [id number] [place] [address] Nov, [facility] [place] [facility] [address] [id number] [place] [address] Nov, [facility] [place] [facility] [address] [id number] [place] [address] Oct, [facility] [place] [facility] [address] [id number] [place] [address] Oct, [facility] [place] [facility] [address] [id number] [place] [address] Sep, [facility] [place] [facility] [address] [id number] [place] [address] Aug, [facility] [place] [facility] [address] [id number] [place] [address] Aug, [facility] [place] [facility] [address] [id number] [place] [address] Aug, [facility] [place] [facility] [address] [id number] [place] [address] July, [facility] [place] [facility] [address] [id number] [place] [address] July, [facility] [address] [id number] [place] [address] July, [facility] [place] [facility] [address] [id number] [place] [address] July, [facility] [place] [facility] [address] [id number] [place] [address] Jun, [facility] [place] [facility] [address] [id number] [place] [address] Jun, [facility] [place] [facility] [address] [id number] [place] [address] Jun, [facility] [place] [facility] [address] [id number] [place] [address] May, [facility] [address] [id number] [place] [address] Apr, [facility] [place] [facility] [address] [id number] [place] [address] Apr, [facility] [address] [id number] [place] [address] Apr, [facility] [place] [facility] [address] [id number] [place] [address] Apr, [facility] [address] [id number] [place] [address] Feb, [facility] [place] [facility] [address] [id number] [place] [address] Feb, [facility] [place] [facility] [address] [id number] [place] [address] Feb, [facility] [place] [facility] [address] [id number] [place] [address] Feb, [facility] [place] [facility] [address] [id number] [place] [address] Jan, [facility] [place] [facility] [address] [id number] [address] Jan, [facility] [id number] [address] Jan, [facility] [id number] [address] Jan, [facility] [id number] [place] [id number] Jan, [facility] [id number] [address] Jan, [facility] [id number] [place] [id number] Dec, [facility] [id number] [place] [id number] Mar, [facility] [id number] [place] [id number] Jan, [facility] [address] [address] Jan, [facility] [address] [address] Jan, [facility] [address] [address] Dec, [facility] [address] [address] Dec, [facility] [address] [address] Nov, [facility] [address] [address] Oct, IMMUNIZATIONS No Known Immunizations SOCIAL HISTORY Never Assessed REASON FOR VISIT [facility] [place] CARE VITAL SIGNS MEDICATIONS Unknown Medications RESULTS No Results PROCEDURES No Known procedures INSTRUCTIONS MEDICATIONS ADMINISTERED No Known Medications MEDICAL (GENERAL) HISTORY Type Description Date Medical History hx of strokes x4; last one 10/12/14 resulting in aphasia and PEG tube Medical History hyperlipidemia Medical History hypertension Medical History type II DM Medical History hx of uterine cancer Medical History hx of atrial fib Medical History Tobaccoism Surgical History hysterectomy Surgical History tonsillectomy Surgical History left rotator cuff surgery Hospitalization History multiple r/t stroke
--- OUTSIDE RECORDS SUMMARY | 2018-08-09 12:55 | XMS REPORT ---
Author Author Migration, Doctor Organization [facility] Address Unknown Phone Unavailable Care Team Providers Care Industrial Organization Manager Name Role Phone Migration, Doctor Unavailable Unavailable PROBLEMS Type Condition ICD9-CM Code [id number] Code Onset Dates Condition Status SNOMED Code Problem Hypertension 401.9 Active 82501296 Problem Diabetes 250.00 Active 28894776 Problem Flexion contractures M24.50 Active 834367455 Problem Diabetes E11.9 Active 72486751 Problem Hemiparesis affecting dominant side as late effect of cerebrovascular accident 438.21 Active 205547715 Problem Dysphasia status post cerebrovascular accident 438.12 Active 938564899 Problem Arthritis M19.90 Active 0638073 Problem Dysphagia as late effect of cerebrovascular accident (CVA) I69.391 Active [id number] ALLERGIES No Information ENCOUNTERS Encounter Location Date Diagnosis [facility] [id number] [place] [address] Sep, [facility] [id number] [place] [address] Oct, [facility] [id number] [place] [address] Sep, [facility] [id number] [place] [address] May, Pain R52 [facility] [id number] [place] [address] May, Pain R52 [facility] [id number] [place] [address] Apr, [facility] [id number] [place] [address] Apr, Pain R52 [facility] [id number] [place] [address] Apr, Flexion contractures M24.50 ; Diabetes E11.9 and Hematemesis K92.0 [facility] [id number] [place] [address] Apr, [facility] [id number] [place] [phone] Apr, [facility] [id number] [place] [address] Mar, Pain R52 [facility] [id number] [place] [address] Mar, [address] [facility] [address] [address] Feb, [facility] [id number] [place] [address] Jan, Arthritis M19.90 ; Dysphasia status post cerebrovascular accident 438.12 and Dysphagia as late effect of cerebrovascular accident (CVA) I69.391 [facility] [id number] [place] [address] Dec, [facility] [id number] [place] [address] Dec, Status post stroke Z86.73 ; Hemiplegia affecting left nondominant side G81.94 ; Dysphasia R47.02 and Aphasia R47.01 [facility] [id number] [place] [address] 30 Nov, 2014 Status post CVA V12.54 ; Dysphasia status post cerebrovascular accident 438.12 ; Aphasia 784.3 ; Hemiparesis affecting dominant side as late effect of cerebrovascular accident 438.21 and Diabetes 250.00 [facility] [id number] [place] [address] 17 Nov, 2014 [facility] [id number] [place] [address] 16 Nov, 2014 [place] [address] [place] [address] 16 Nov, 2014 Status post CVA V12.54 ; Diabetes 250.00 and Hypertension 401.9 [facility] [id number] [place] [address], [place] [address] 14 Nov, 2014 [facility] [id number] [place] [address] 14 Nov, 2014 [facility] [id number] [place] [address] 10 Nov, 2014 [facility] [id number] [place] [address] 09 Nov, 2014 [facility] [id number] [place] [address] 04 Nov, 2014 [facility] [id number] [place] [address] 03 Nov, 2014 [facility] [id number] [place] [address] 03 Nov, 2014 [facility] [address] [place] [address] 02 Nov, 2014 [facility] [address] [place] [address] Oct, [facility] [address] [address] Oct, [facility] [address] [address] Oct, DM type 2 (diabetes mellitus, type 2) 250.00 [facility] [address] [place] [address] 24 Aug, 2014 [facility] [address] [address] July, [facility] [address] [id number] [id number] July, Dental examination V72.2 [facility] [place] [facility] [address] [id number] [place] [address] 14 Jun, 2014 [facility] [place] [facility] [address] [id number] [place] [address] Jun, [facility] [place] [facility] [address] [id number] [place] [address] May, [facility] [place] [facility] [address] [id number] [place] [address] May, [facility] [place] [facility] [address] [id number] [place] [address] May, [facility] [place] [facility] [address] [id number] [place] [address] Apr, [facility] [place] [facility] [address] [facility] [id number] [place] [address] Apr, [facility] [place] [facility] [address] [facility] [id number] [place] [address] Mar, [facility] [place] [facility] [address] [facility] [place] [id number] [place] [address] Mar, [facility] [place] [facility] [address] [facility] [place] [id number] [place] [address] Feb, [facility] [place] [facility] [address] [facility] [place] [id number] [place] [address] Feb, [facility] [place] [facility] [address] [id number] [place] [address] Feb, [facility] [place] [facility] [address] [id number] [place] [address] Feb, [facility] [place] [facility] [address] [facility] [place] [id number] [place] [address] Jan, [facility] [place] [facility] [address] [facility] [place] [id number] [place] [address] Dec, [facility] [place] [facility] [address] [id number] [place] [address] Dec, [facility] [place] [facility] [address] [id number] [place] [address] Dec, [facility] [place] [facility] [address] [id number] [place] [address] Dec, [facility] [place] [facility] [address] [id number] [place] [address] Dec, [facility] [place] [facility] [address] [id number] [place] [address] Dec, [facility] [place] [facility] [address] [id number] [place] [address] Dec, [facility] [place] [facility] [address] [id number] [place] [address] Nov, [facility] [place] [facility] [address] [id number] [place] [address] Nov, [facility] [place] [facility] [address] [id number] [place] [address] Nov, [facility] [place] [facility] [address] [id number] [place] [address] Nov, [facility] [place] [facility] [address] [id number] [place] [address] Nov, [facility] [place] [facility] [address] [id number] [place] [address] Oct, [facility] [place] [facility] [address] [id number] [place] [address] Oct, [facility] [place] [facility] [address] [id number] [place] [address] Oct, [facility] [place] [facility] [address] [id number] [place] [address] Oct, [facility] [place] [facility] [address] [facility] [id number] [place] [address] Sep, [facility] [place] [facility] [address] [id number] [place] [address] Sep, [facility] [place] [facility] [address] [id number] [place] [address] Sep, [facility] [place] [facility] [address] [id number] [place] [address] Sep, [facility] [place] [facility] [address] [id number] [place] [address] Sep, [facility] [place] [facility] [address] [id number] [place] [address] Sep, [facility] [place] [facility] [address] [id number] [place] [address] Aug, [facility] [place] [facility] [address] [id number] [place] [address] Aug, [facility] [place] [facility] [address] [id number] [place] [address] Aug, [facility] [place] [facility] [address] [id number] [place] [address] Aug, [facility] [place] [facility] [address] [id number] [place] [address] Aug, [facility] [place] [facility] [address] [id number] [place] [address] Aug, [facility] [place] [facility] [address] [id number] [place] [address] Aug, [facility] [place] [facility] [address] [id number] [place] [address] Aug, [facility] [place] [facility] [address] [id number] [place] [address] July, [facility] [place] [facility] [address] [id number] [place] [address] July, [facility] [place] [facility] [address] [id number] [place] [address] July, [facility] [place] [facility] [address] [id number] [place] [address] July, [facility] [place] [facility] [address] [id number] [place] [address] July, [facility] [place] [facility] [address] [id number] [place] [address] July, [facility] [place] [facility] [address] [id number] [place] [address] July, [facility] [place] [facility] [address] [id number] [place] [address] July, [facility] [place] [facility] [address] [id number] [place] [address] Jun, [facility] [place] [facility] [address] [id number] [place] [address] Jun, [facility] [place] [facility] [address] [id number] [place] [address] Jun, [facility] [place] [facility] [address] [id number] [place] [address] Jun, [facility] [place] [facility] [address] [id number] [place] [address] Jun, [facility] [place] [facility] [address] [id number] [place] [address] Jun, [facility] [place] [facility] [address] [id number] [place] [address] Jun, [facility] [place] [facility] [address] [id number] [place] [address] Jun, [facility] [place] [facility] [address] [id number] [place] [address] Jun, [facility] [place] [facility] [address] [id number] [place] [address] Apr, [facility] [place] [facility] [address] [id number] [place] [address] Apr, [facility] [address] [id number] [place] [address] Apr, [facility] [place] [facility] [address] [id number] [place] [address] 14 Apr, 2013 [facility] [address] [id number] [place] [address] Feb, [facility] [place] [facility] [address] [id number] [place] [address] Feb, [facility] [address] [id number] [place] [address] Feb, [facility] [place] [facility] [address] [id number] [place] [address] Jan, [facility] [place] [facility] [address] [id number] [place] [address] Jan, [facility] [address] [id number] [place] [address] Jan, [facility] [place] [facility] [address] [id number] [place] [address] Jan, [facility] [address] [facility] [id number] [place] [address] Jan, [facility] [place] [facility] [address] [id number] [place] [address] Jan, [facility] [place] [facility] [address] [id number] [place] [address] Dec, [facility] [place] [facility] [address] [id number] [place] [address] Dec, [facility] [place] [facility] [address] [id number] [place] [address] Dec, [facility] [place] [facility] [address] [id number] [place] [address] Dec, [facility] [place] [facility] [address] [id number] [place] [address] Dec, [facility] [place] [facility] [address] [id number] [place] [address] Dec, [facility] [place] [facility] [address] [id number] [place] [address] Dec, [facility] [place] [facility] [address] [id number] [place] [address] Dec, [facility] [place] [facility] [address] [id number] [place] [address] Dec, [facility] [place] [facility] [address] [id number] [place] [address] Dec, [facility] [place] [facility] [address] [id number] [place] [address] Nov, [facility] [place] [facility] [address] [id number] [place] [address] Nov, [facility] [place] [facility] [address] [id number] [place] [address] Oct, [facility] [place] [facility] [address] [id number] [place] [address] Oct, [facility] [place] [facility] [address] [id number] [place] [address] Oct, [facility] [place] [facility] [address] [id number] [place] [address] Oct, [facility] [place] [facility] [address] [id number] [place] [address] Sep, [facility] [place] [facility] [address] [id number] [place] [address] Sep, [facility] [place] [facility] [address] [id number] [place] [address] Sep, [facility] [place] [facility] [address] [id number] [place] [address] Aug, [facility] [address] [id number] [place] [address] July, [facility] [address] [id number] [place] [address] July, [facility] [address] [facility] [id number] [place] [address] Jun, [facility] [address] [id number] [place] [address] 24 Jun, 2012 [facility] [address] [id number] [place] [address] Jun, [facility] [address] [facility] [id number] [place] [address] Jun, [facility] [id number] [address] Jun, [facility] [address] [id number] [place] [address] Jun, [facility] [id number] [address] Apr, [facility] [id number] [address] Apr, [facility] [id number] [address] Feb, [facility] [address] [id number] [place] [address] Feb, [facility] [place] [facility] [address] [id number] [place] [address] Jan, [facility] [place] [facility] [address] [facility] [id number] [place] [address] Jan, [facility] [address] [id number] [address] Dec, [facility] [place] [facility] [address] [id number] [place] [address] Dec, [facility] [place] [facility] [address] [id number] [place] [address] Dec, [facility] [place] [facility] [address] [id number] [place] [address] Dec, [facility] [place] [facility] [address] [id number] [place] [address] Dec, [facility] [place] [facility] [address] [id number] [place] [address] Dec, [facility] [place] [facility] [address] [id number] [place] [address] Dec, [facility] [place] [facility] [address] [id number] [place] [address] Nov, [facility] [place] [facility] [address] [id number] [place] [address] Nov, [facility] [place] [facility] [address] [id number] [place] [address] Oct, [facility] [place] [facility] [address] [id number] [place] [address] Oct, [facility] [place] [facility] [address] [id number] [place] [address] Sep, [facility] [place] [facility] [address] [id number] [place] [address] Aug, [facility] [place] [facility] [address] [id number] [place] [address] Aug, [facility] [place] [facility] [address] [id number] [place] [address] Aug, [facility] [place] [facility] [address] [id number] [place] [address] July, [facility] [place] [facility] [address] [id number] [place] [address] July, [facility] [address] [id number] [place] [address] July, [facility] [place] [facility] [address] [id number] [place] [address] July, [facility] [place] [facility] [address] [id number] [place] [address] Jun, [facility] [place] [facility] [address] [id number] [place] [address] Jun, [facility] [place] [facility] [address] [id number] [place] [address] Jun, [facility] [place] [facility] [address] [id number] [place] [address] May, [facility] [address] [id number] [place] [address] Apr, [facility] [place] [facility] [address] [id number] [place] [address] Apr, [facility] [address] [id number] [place] [address] Apr, [facility] [place] [facility] [address] [id number] [place] [address] Apr, [facility] [address] [id number] [place] [address] Feb, [facility] [place] [facility] [address] [id number] [place] [address] Feb, [facility] [place] [facility] [address] [id number] [place] [address] Feb, [facility] [place] [facility] [address] [id number] [place] [address] Feb, [facility] [place] [facility] [address] [id number] [place] [address] Jan, [facility] [place] [facility] [address] [id number] [place] [address] Jan, [facility] [id number] [place] [address] Jan, [facility] [address] [address] Jan, [facility] [id number] [place] [address] Jan, [facility] [address] [id number] [address] Jan, [facility] [id number] [place] [address] Dec, [facility] [id number] [place] [address] Mar, [facility] [id number] [place] [address] Jan, [facility] [address] [address] Jan, [facility] [address] [address] Jan, [facility] [address] [address] Dec, [facility] [address] [address] Dec, [facility] [address] [address] Nov, [facility] [address] [address] Oct, IMMUNIZATIONS No Known Immunizations SOCIAL HISTORY Never Assessed [place] [place] VITAL SIGNS MEDICATIONS Unknown [...]
--- OUTSIDE RECORDS SUMMARY | 2018-08-09 12:55 | XMS REPORT ---
Author Author Migration, Doctor Organization [facility] Address Unknown Phone Unavailable Care Team Providers Care Backwinder Name Role Phone Migration, Doctor Unavailable Unavailable PROBLEMS Type Condition ICD9-CM Code TEV21-[place] Code Onset Dates Condition Status SNOMED Code Problem Hypertension 401.9 Active 84368338 Problem Diabetes 250.00 Active 98971530 Problem Flexion contractures M24.50 Active 684209997 Problem Diabetes E11.9 Active 28805555 Problem Hemiparesis affecting dominant side as late effect of cerebrovascular accident 438.21 Active 431093044 Problem Dysphasia status post cerebrovascular accident 438.12 Active 433258217 Problem Arthritis M19.90 Active 0086199 Problem Dysphagia as late effect of cerebrovascular accident (CVA) I69.391 Active 148984912 ALLERGIES No Information ENCOUNTERS Encounter Location Date Diagnosis [facility] [id number] [place] [address] Sep, [facility] [id number] [place] [address] Oct, [facility] [id number] [place] [address] Sep, [facility] [id number] [place] [address] May, Pain R52 [facility] [id number] [place] [address] May, Pain R52 [facility] [id number] [place] [address] Apr, [facility] [id number] [place] [address] Apr, Pain R52 [facility] [id number] [place] [address] Apr, Flexion contractures M24.50 ; Diabetes E11.9 and Hematemesis K92.0 [facility] [id number] [place] [address] Apr, [facility] [id number] [place] [address] Apr, [facility] [id number] [place] [address] Mar, Pain R52 [facility] [id number] [place] [address] Mar, [facility] [address] [address] Feb, [facility] [id number] [place] [address] Jan, Arthritis M19.90 ; Dysphasia status post cerebrovascular accident 438.12 and Dysphagia as late effect of cerebrovascular accident (CVA) I69.391 [facility] [id number] [place] [address] Dec, [facility] [id number] [place] [address] Dec, Status post stroke Z86.73 ; Hemiplegia affecting left nondominant side G81.94 ; Dysphasia R47.02 and Aphasia R47.01 [facility] [id number] [place] [address] 30 Nov, 2014 Status post CVA V12.54 ; Dysphasia status post cerebrovascular accident 438.12 ; Aphasia 784.3 ; Hemiparesis affecting dominant side as late effect of cerebrovascular accident 438.21 and Diabetes 250.00 [facility] [facility] [id number] [place] [address] 17 Nov, 2014 [facility] [id number] [place] [address] 16 Nov, 2014 [place] [address] [place] [address] 16 Nov, 2014 Status post CVA V12.54 ; Diabetes 250.00 and Hypertension 401.9 [facility] [id number] [place] [address], [place] [address] 14 Nov, 2014 [facility] [id number] [place] [address] 14 Nov, 2014 [facility] [id number] [place] [address] 10 Nov, 2014 [facility] [id number] [place] [address] 09 Nov, 2014 [facility] [id number] [place] [address] 04 Nov, 2014 [facility] [id number] [place] [address] 03 Nov, 2014 [facility] [id number] [place] [address] 03 Nov, 2014 [facility] [id number] [place] [address] 02 Nov, 2014 [facility] [id number] [place] [address] Oct, [facility] [address] [address] Oct, [facility] [id number] [address] Oct, DM type 2 (diabetes mellitus, type 2) 250.00 [facility] [id number] [place] [address] 24 Aug, 2014 [facility] [address] [address] July, [facility] [address] [id number] [id number] July, Dental examination V72.2 [facility] [place] [facility] [address] [id number] [place] [address] 14 Jun, 2014 [facility] [place] [facility] [address] [id number] [place] [address] Jun, [facility] [place] [facility] [address] [id number] [place] [address] May, [facility] [place] [facility] [address] [id number] [place] [address] May, [facility] [place] [facility] [address] [id number] [place] [address] May, [facility] [place] [facility] [address] [id number] [place] [address] Apr, [facility] [place] [facility] [address] [facility] [id number], [place] [address] Apr, [facility] [place] [facility] [address] [facility] [id number], [place] [address] Mar, [facility] [place] [facility] [address] [facility] [id number], [place] [address] Mar, [facility] [place] [facility] [address] [facility] [id number] [address] Feb, [facility] [place] [facility] [address] [facility] [id number] [address] Feb, [facility] [place] [facility] [address] [id number], [place] [address] Feb, [facility] [place] [facility] [address] [id number], [place] [address] Feb, [facility] [place] [facility] [address] [facility] [id number] [address] Jan, [facility] [place] [facility] [address] [facility] [id number] [address] Dec, [facility] [place] [facility] [address] [id number], [place] [address] Dec, [facility] [place] [facility] [address] [id number] [place] [address] Dec, [facility] [place] [facility] [address] [id number] [place] [address] Dec, [facility] [place] [facility] [address] [id number] [place] [address] Dec, [facility] [place] [facility] [address] [id number] [place] [address] Dec, [facility] [place] [facility] [address] [id number] [place] [address] Dec, [facility] [place] [facility] [address] [id number] [place] [address] Nov, [facility] [place] [facility] [address] [id number] [place] [address] Nov, [facility] [place] [facility] [address] [id number] [place] [address] Nov, [facility] [place] [facility] [address] [id number] [place] [address] Nov, [facility] [place] [facility] [address] [id number] [place] [address] Nov, [facility] [place] [facility] [address] [id number] [place] [address] Oct, [facility] [place] [facility] [address] [id number], [place] [address] Oct, [facility] [place] [facility] [address] [id number] [place] [address] Oct, [facility] [place] [facility] [address] [id number] [place] [address] Oct, [facility] [place] [facility] [address] [facility] [id number] [place] [address] Sep, [facility] [place] [facility] [address] [id number] [place] [address] Sep, [facility] [place] [facility] [address] [id number] [place] [address] Sep, [facility] [place] [facility] [address] [id number] [place] [address] Sep, [facility] [place] [facility] [address] [id number] [place] [address] Sep, [facility] [place] [facility] [address] [id number] [place] [address] Sep, [facility] [place] [facility] [address] [id number] [place] [address] Aug, [facility] [place] [facility] [address] [id number] [place] [address] Aug, [facility] [place] [facility] [address] [id number] [place] [address] Aug, [facility] [place] [facility] [address] [id number] [place] [address] Aug, [facility] [place] [facility] [address] [id number] [place] [address] Aug, [facility] [place] [facility] [address] [id number] [place] [address] Aug, [facility] [place] [facility] [address] [id number] [place] [address] Aug, [facility] [place] [facility] [address] [id number] [place] [address] Aug, [facility] [place] [facility] [address] [id number] [place] [address] July, [facility] [place] [facility] [address] [id number] [place] [address] July, [facility] [place] [facility] [address] [id number] [place] [address] July, [facility] [place] [facility] [address] [id number] [place] [address] July, [facility] [place] [facility] [address] [id number] [place] [address] July, [facility] [place] [facility] [address] [id number] [place] [address] July, [facility] [place] [facility] [address] [id number] [place] [address] July, [facility] [place] [facility] [address] [id number] [place] [address] July, [facility] [place] [facility] [address] [id number] [place] [address] Jun, [facility] [place] [facility] [address] [id number] [place] [address] Jun, [facility] [place] [facility] [address] [id number] [place] [address] Jun, [facility] [place] [facility] [address] [id number] [place] [address] Jun, [facility] [place] [facility] [address] [id number] [place] [address] Jun, [facility] [place] [facility] [address] [id number] [place] [address] Jun, [facility] [place] [facility] [address] [id number], [place] [address] Jun, [facility] [place] [facility] [address] [id number] [place] [address] Jun, [facility] [place] [facility] [address] [id number] [place] [address] Jun, [facility] [place] [facility] [address] [id number] [place] [address] Apr, [facility] [place] [facility] [address] [id number] [place] [address] Apr, [facility] [address] [id number] [place] [address] Apr, [facility] [place] [facility] [address] [id number] [place] [address] 14 Apr, 2013 [facility] [address] [id number] [place] [address] Feb, [facility] [place] [facility] [address] [id number] [place] [address] Feb, [facility] [address] [id number] [place] [address] Feb, [facility] [place] [facility] [address] [id number] [place] [address] Jan, [facility] [place] [facility] [address] [id number] [place] [address] Jan, [facility] [address] [id number] [place] [address] Jan, [facility] [place] [facility] [address] [id number] [place] [address] Jan, [facility] [address] [facility] [id number] [place] [address] Jan, [facility] [place] [facility] [address] [id number] [place] [address] Jan, [facility] [place] [facility] [address] [id number] [place] [address] Dec, [facility] [place] [facility] [address] [id number] [place] [address] Dec, [facility] [place] [facility] [address] [id number] [place] [address] Dec, [facility] [place] [facility] [address] [id number] [place] [address] Dec, [facility] [place] [facility] [address] [id number] [place] [address] Dec, [facility] [place] [facility] [address] [id number] [place] [address] Dec, [facility] [place] [facility] [address] [id number] [place] [address] Dec, [facility] [place] [facility] [address] [id number] [place] [address] Dec, [facility] [place] [facility] [address] [id number] [place] [address] Dec, [facility] [place] [facility] [address] [id number] [place] [address] Dec, [facility] [place] [facility] [address] [id number] [place] [address] Nov, [facility] [place] [facility] [address] [id number] [place] [address] Nov, [facility] [place] [facility] [address] [id number] [place] [address] Oct, [facility] [place] [facility] [address] [id number], [place] [address] Oct, [facility] [place] [facility] [address] [id number] [address] Oct, [facility] [place] [facility] [address] [id number], [place] [address] Oct, [facility] [place] [facility] [address] [id number] [place] [address] Sep, [facility] [place] [facility] [address] [id number], [place] [address] Sep, [facility] [place] [facility] [address] [id number], [place] [address] Sep, [facility] [place] [facility] [address] [id number], [place] [address] Aug, [facility] [address] [id number] [place] [address] July, [facility] [address] [id number] [place] [address] July, [facility] [address] [facility] [id number] [place] [address] Jun, [facility] [address] [id number] [place] [address] 24 Jun, 2012 [facility] [address] [id number] [place] [address] Jun, [facility] [address] [facility] [id number] [place] [address] Jun, [facility] [id number] [address] Jun, [facility] [address] [id number] [place] [address] Jun, [facility] [id number] [address] Apr, [facility] [address] [id number] [address] Apr, [facility] [address] [id number] [address] Feb, [facility] [address] [id number] [place] [address] Feb, [facility] [place] [facility] [address] [id number] [place] [address] Jan, [facility] [place] [facility] [address] [facility] [id number] [place] [address] Jan, [facility] [address] [id number] [address] Dec, [facility] [place] [facility] [address] [id number] [place] [address] Dec, [facility] [place] [facility] [address] [id number] [place] [address] Dec, [facility] [place] [facility] [address] [id number] [place] [address] Dec, [facility] [place] [facility] [address] [id number] [place] [address] Dec, [facility] [place] [facility] [address] [id number] [place] [address] Dec, [facility] [place] [facility] [address] [id number] [place] [address] Dec, [facility] [place] [facility] [address] [id number] [place] [address] Nov, [facility] [place] [facility] [address] [id number] [place] [address] Nov, [facility] [place] [facility] [address] [id number] [place] [address] Oct, [facility] [place] [facility] [address] [id number] [place] [address] Oct, [facility] [place] [facility] [address] [id number] [place] [address] Sep, [facility] [place] [facility] [address] [id number] [place] [address] Aug, [facility] [place] [facility] [address] [id number] [place] [address] Aug, [facility] [place] [facility] [address] [id number] [place] [address] Aug, [facility] [place] [facility] [address] [id number] [place] [address] July, [facility] [place] [facility] [address] [id number] [place] [address] July, [facility] [address] [id number] [place] [address] July, [facility] [place] [facility] [address] [id number] [place] [address] July, [facility] [place] [facility] [address] [id number] [place] [address] Jun, [facility] [place] [facility] [address] [id number] [place] [address] Jun, [facility] [place] [facility] [address] [id number] [place] [address] Jun, [facility] [place] [facility] [address] [id number] [place] [address] May, [facility] [address] [id number] [place] [address] Apr, [facility] [place] [facility] [address] [id number] [place] [address] Apr, [facility] [address] [id number] [place] [address] Apr, [facility] [place] [facility] [address] [id number] [place] [address] Apr, [facility] [address] [id number] [place] [address] Feb, [facility] [place] [facility] [address] [id number] [place] [address] Feb, [facility] [place] [facility] [address] [id number] [place] [address] Feb, [facility] [place] [facility] [address] [id number] [place] [address] Feb, [facility] [place] [facility] [address] [id number] [place] [address] Jan, [facility] [place] [facility] [address] [id number], [place] [address] Jan, [facility] [address] [address] Jan, [facility] [address] [address] Jan, [facility] [id number] [place] [address] Jan, [facility] [address] [id number] [address] Jan, [facility] [id number] [place] [id number] Dec, [facility] [id number] [place] [id number] Mar, [facility] [id number] [place] [id number] Jan, [facility] [id number] [address] Jan, [facility] [id number] [address] Jan, [facility] [id number] [address] Dec, [facility] [id number] [address] Dec, [facility] [id number] [address] Nov, [facility] [id number] [address] Oct, IMMUNIZATIONS No Known Immunizations SOCIAL HISTORY Never Assessed REASON FOR VISIT EMR-[facility] [place] PLAN OF CARE VITAL SIGNS MEDICATIONS Unknown [...]
--- OUTSIDE RECORDS SUMMARY | 2018-08-09 12:56 | XMS REPORT ---
Author Author Migration, Doctor Organization [facility] Address Unknown Phone Unavailable Care Team Providers Care Payroll Administrative Assistant Name Role Phone Migration, Doctor Unavailable Unavailable PROBLEMS Type Condition ICD9-CM Code [id number] Code Onset Dates Condition Status SNOMED Code Problem Hypertension 401.9 Active 81859393 Problem Diabetes 250.00 Active 32796885 Problem Flexion contractures M24.50 Active 693672340 Problem Diabetes E11.9 Active 08671739 Problem Hemiparesis affecting dominant side as late effect of cerebrovascular accident 438.21 Active 054800282 Problem Dysphasia status post cerebrovascular accident 438.12 Active 587430384 Problem Arthritis M19.90 Active 3752068 Problem Dysphagia as late effect of cerebrovascular accident (CVA) I69.391 Active [id number] ALLERGIES No Information ENCOUNTERS Encounter Location Date Diagnosis [facility], [place] [id number] [place] [address] Sep, [facility] [place] [id number] [place] [address] Oct, [facility] [place] [id number] [place] [address] Sep, [facility] [place] [id number] [place] [address] May, Pain R52 [facility] [place] [id number] [place] [address] May, Pain R52 [facility] [place] [id number] [place] [address] Apr, [facility] [place] [id number] [place] [address] Apr, Pain R52 [facility] [place] [id number] [place] [address] Apr, Flexion contractures M24.50 ; Diabetes E11.9 and Hematemesis K92.0 [place] [facility] [id number] [place] [address] Apr, [facility] [place] [id number] [place] [address] Apr, [facility] [place] [id number] [place] [address] Mar, Pain R52 [place] [id number] [place] [address] Mar, [place] [address] [address] Feb, [place] [id number] [place] [address] Jan, Arthritis M19.90 ; Dysphasia status post cerebrovascular accident 438.12 and Dysphagia as late effect of cerebrovascular accident (CVA) I69.391 [place] [id number] [place] [address] Dec, [place] [id number] [place] [address] Dec, Status post stroke Z86.73 ; Hemiplegia affecting left nondominant side G81.94 ; Dysphasia R47.02 and Aphasia R47.01 [place] [id number] [place] [address] 30 Nov, 2014 Status post CVA V12.54 ; Dysphasia status post cerebrovascular accident 438.12 ; Aphasia 784.3 ; Hemiparesis affecting dominant side as late effect of cerebrovascular accident 438.21 and Diabetes 250.00 [place] [id number] [place] [address] 17 Nov, 2014 [place] [id number] [place] [address] 16 Nov, 2014 [place] [address] [place] [address] 16 Nov, 2014 Status post CVA V12.54 ; Diabetes 250.00 and Hypertension 401.9 [facility] [place] [id number] [place] [address], [place] [address] 14 Nov, 2014 [facility], [place] [id number] [place] [address] 14 Nov, 2014 [facility] [place] [id number] [place] [address] 10 Nov, 2014 [facility], [place] [id number] [place] [address] 09 Nov, 2014 [facility] [place] [id number] [place] [address] 04 Nov, 2014 [facility] [place] [id number] [place] [address] 03 Nov, 2014 [facility] [place] [id number] [place] [address] 03 Nov, 2014 [facility], [place] [id number] [place] [address] 02 Nov, 2014 [facility], [place] [id number] [place] [address] Oct, [facility], [place] [address] [address] Oct, [facility], [place] [address] [address] Oct, DM type 2 (diabetes mellitus, type 2) 250.00 [facility], [place] [id number] [place] [address] 24 Aug, 2014 [facility], [place] [address] [address] July, [facility] [address] [id number] [id number] July, Dental examination V72.2 [facility] [place] [facility] [address] [id number] [place] [address] 14 Jun, 2014 [facility] [place] [facility] [address] [id number] [place] [address] Jun, [facility] [place] [facility] [address] [id number] [place] [address] May, [facility] [place] [facility] [address] [id number] [place] [address] May, [facility] [place] [facility] [address] [id number] [place] [address] May, [facility] [place] [facility] [address] [id number] [place] [address] Apr, [facility] [place] [facility] [address] [facility] [id number], [place] [address] Apr, [facility] [place] [facility] [address] [facility] [id number], [place] [address] Mar, [facility] [place] [facility] [address] [facility] [id number], [place] [address] Mar, [facility] [place] [facility] [address] [facility] [id number], [place] [address] Feb, [facility] [place] [facility] [address] [facility] [id number], [place] [address] Feb, [facility] [place] [facility] [address] [id number], [place] [address] Feb, [facility] [place] [facility] [address] [id number], [place] [address] Feb, [facility] [place] [facility] [address] [facility] [id number], [place] [address] Jan, [facility] [place] [facility] [address] [facility] [id number], [place] [address] Dec, [facility] [place] [facility] [address] [id number], [place] [address] Dec, [facility] [place] [facility] [address] [id number] [place] [address] Dec, [facility] [place] [facility] [address] [id number] [place] [address] Dec, [facility] [place] [facility] [address] [id number] [place] [address] Dec, [facility] [place] [facility] [address] [id number] [place] [address] Dec, [facility] [place] [facility] [address] [id number] [place] [address] Dec, [facility] [place] [facility] [address] [id number] [place] [address] Nov, [facility] [place] [facility] [address] [id number] [place] [address] Nov, [facility] [place] [facility] [address] [id number] [place] [address] Nov, [facility] [place] [facility] [address] [id number] [place] [address] Nov, [facility] [place] [facility] [address] [id number] [place] [address] Nov, [facility] [place] [facility] [address] [id number] [place] [address] Oct, [facility] [place] [facility] [address] [id number], [place] [address] Oct, [facility] [place] [facility] [address] [id number] [place] [address] Oct, [facility] [place] [facility] [address] [id number] [place] [address] Oct, [facility] [place] [facility] [address] [facility] [id number] [place] [address] Sep, [facility] [place] [facility] [address] [id number] [place] [address] Sep, [facility] [place] [facility] [address] [id number] [place] [address] Sep, [facility] [place] [facility] [address] [id number] [place] [address] Sep, [facility] [place] [facility] [address] [id number] [place] [address] Sep, [facility] [place] [facility] [address] [id number] [place] [address] Sep, [facility] [place] [facility] [address] [id number] [place] [address] Aug, [facility] [place] [facility] [address] [id number] [place] [address] Aug, [facility] [place] [facility] [address] [id number] [place] [address] Aug, [facility] [place] [facility] [address] [id number] [place] [address] Aug, [facility] [place] [facility] [address] [id number] [place] [address] Aug, [facility] [place] [facility] [address] [id number] [place] [address] Aug, [facility] [place] [facility] [address] [id number] [place] [address] Aug, [facility] [place] [facility] [address] [id number] [place] [address] Aug, [facility] [place] [facility] [address] [id number] [place] [address] July, [facility] [place] [facility] [address] [id number] [place] [address] July, [facility] [place] [facility] [address] [id number] [place] [address] July, [facility] [place] [facility] [address] [id number] [place] [address] July, [facility] [place] [facility] [address] [id number] [place] [address] July, [facility] [place] [facility] [address] [id number] [place] [address] July, [facility] [place] [facility] [address] [id number] [place] [address] July, [facility] [place] [facility] [address] [id number] [place] [address] July, [facility] [place] [facility] [address] [id number] [place] [address] Jun, [facility] [place] [facility] [address] [id number] [place] [address] Jun, [facility] [place] [facility] [address] [id number] [place] [address] Jun, [facility] [place] [facility] [address] [id number] [place] [address] Jun, [facility] [place] [facility] [address] [id number] [place] [address] Jun, [facility] [place] [facility] [address] [id number] [place] [address] Jun, [facility] [place] [facility] [address] [id number], [place] [address] Jun, [facility] [place] [facility] [address] [id number] [place] [address] Jun, [facility] [place] [facility] [address] [id number] [place] [address] Jun, [facility] [place] [facility] [address] [id number] [place] [address] Apr, [facility] [place] [facility] [address] [id number] [place] [address] Apr, [facility] [address] [id number] [place] [address] Apr, [facility] [place] [facility] [address] [id number] [place] [address] 14 Apr, 2013 [facility] [address] [id number] [place] [address] Feb, [facility] [place] [facility] [address] [id number] [place] [address] Feb, [facility] [address] [id number] [place] [address] Feb, [facility] [place] [facility] [address] [id number] [place] [address] Jan, [facility] [place] [facility] [address] [id number] [place] [address] Jan, [facility] [address] [id number] [place] [address] Jan, [facility] [place] [facility] [address] [id number] [place] [address] Jan, [facility] [address] [facility] [id number] [place] [address] Jan, [facility] [place] [facility] [address] [id number] [place] [address] Jan, [facility] [place] [facility] [address] [id number] [place] [address] Dec, [facility] [place] [facility] [address] [id number] [place] [address] Dec, [facility] [place] [facility] [address] [id number] [place] [address] Dec, [facility] [place] [facility] [address] [id number] [place] [address] Dec, [facility] [place] [facility] [address] [id number] [place] [address] Dec, [facility] [place] [facility] [address] [id number] [place] [address] Dec, [facility] [place] [facility] [address] [id number] [place] [address] Dec, [facility] [place] [facility] [address] [id number] [place] [address] Dec, [facility] [place] [facility] [address] [id number] [place] [address] Dec, [facility] [place] [facility] [address] [id number] [place] [address] Dec, [facility] [place] [facility] [address] [id number] [place] [address] Nov, [facility] [place] [facility] [address] [id number] [place] [address] Nov, [facility] [place] [facility] [address] [id number] [place] [address] Oct, [facility] [place] [facility] [address] [id number], [place] [address] Oct, [facility] [place] [facility] [address] [id number], [place] [address] Oct, [facility] [place] [facility] [address] [id number], [place] [address] Oct, [facility] [place] [facility] [address] [id number] [place] [address] Sep, [facility] [place] [facility] [address] [id number], [place] [address] Sep, [facility] [place] [facility] [address] [id number], [place] [address] Sep, [facility] [place] [facility] [address] [id number], [place] [address] Aug, [facility] [address] [id number] [place] [address] July, [facility] [address] [id number] [place] [address] July, [facility] [address] [facility] [id number] [place] [address] Jun, [facility] [address] [id number] [place] [address] 24 Jun, 2012 [facility] [address] [id number] [place] [address] Jun, [facility] [address] [facility] [id number] [place] [address] Jun, [facility] [id number] [place] [address] Jun, [facility] [address] [id number] [place] [address] Jun, [facility] [id number] [place] [address] Apr, [facility] [id number] [place] [address] Apr, [facility] [id number] [place] [address] Feb, [facility] [address] [id number] [place] [address] Feb, [facility] [place] [facility] [address] [id number] [place] [address] Jan, [facility] [place] [facility] [address] [facility] [id number] [place] [address] Jan, [facility] [address] [id number] [place] [address] Dec, [facility] [place] [facility] [address] [id number] [place] [address] Dec, [facility] [place] [facility] [address] [id number] [place] [address] Dec, [facility] [place] [facility] [address] [id number] [place] [address] Dec, [facility] [place] [facility] [address] [id number] [place] [address] Dec, [facility] [place] [facility] [address] [id number] [place] [address] Dec, [facility] [place] [facility] [address] [id number] [place] [address] Dec, [facility] [place] [facility] [address] [id number] [place] [address] Nov, [facility] [place] [facility] [address] [id number] [place] [address] Nov, [facility] [place] [facility] [address] [id number] [place] [address] Oct, [facility] [place] [facility] [address] [id number] [place] [address] Oct, [facility] [place] [facility] [address] [id number] [place] [address] Sep, [facility] [place] [facility] [address] [id number] [place] [address] Aug, [facility] [place] [facility] [address] [id number] [place] [address] Aug, [facility] [place] [facility] [address] [id number] [place] [address] Aug, [facility] [place] [facility] [address] [id number] [place] [address] July, [facility] [place] [facility] [address] [id number] [place] [address] July, [facility] [address] [id number] [place] [address] July, [facility] [place] [facility] [address] [id number] [place] [address] July, [facility] [place] [facility] [address] [id number] [place] [address] Jun, [facility] [place] [facility] [address] [id number] [place] [address] Jun, [facility] [place] [facility] [address] [id number] [place] [address] Jun, [facility] [place] [facility] [address] [id number] [place] [address] May, [facility] [address] [id number] [place] [address] Apr, [facility] [place] [facility] [address] [id number] [place] [address] Apr, [facility] [address] [id number] [place] [address] Apr, [facility] [place] [facility] [address] [id number] [place] [address] Apr, [facility] [address] [id number] [place] [address] Feb, [facility] [place] [facility] [address] [id number] [place] [address] Feb, [facility] [place] [facility] [address] [id number] [place] [address] Feb, [facility] [place] [facility] [address] [id number] [place] [address] Feb, [facility] [place] [facility] [address] [id number] [place] [address] Jan, [facility] [place] [facility] [address] [id number], [place] [address] Jan, [facility] [place] [address] [facility] [id number], [place] [address] Jan, [facility] [place] [address] [facility] [id number], [place] [address] Jan, [facility] [place] [address] [facility] [id number], [place] [address] Jan, [facility] [place] [address] [facility] [id number], [place] [address] Jan, [facility], [place] [id number] [place] [id number] Dec, [facility] [place] [address] [facility] [id number], [place] [address] Mar, [facility], [place] [id number] [place] [address] Jan, [facility], [place] [id number], [place] [address] Jan, [facility], [place] [id number], [place] [address] Jan, [facility], [place] [id number], [place] [address] Dec, [facility] [place] [id number], [place] [address] Dec, [facility], [place] [id number], [place] [address] Nov, [facility], [place] [id number], [place] [address] Oct, IMMUNIZATIONS No Known Immunizations SOCIAL HISTORY Never Assessed REASON FOR VISIT EMR-[facility] PLAN OF CARE VITAL SIGNS MEDICATIONS Medication Instructions Dosage Frequency Start Date End Date Duration Status Naprosyn 500 mg 1 tablet by Oral route 2 times per day Dec, Active Levemir Flexpen 100 unit/mL 26 units by Subcutaneous route 1 time per day Incrase 3 u q 3 d til FBS 110-120 Aug, Active Aggrenox 25-200 mg 1 capsule by Oral route 2 times per day May, Active Hydrocodone-Acetaminophen 5-325 mg take 1 tablet by Oral route every 6 hours as needed for pain PRN Oct, Active Alprazolam 0.5 mg 1 tablet by Oral route 1 time per day Apr, Active Evista 60 mg 1 tablet by Oral route 1 time per day Feb, Active Amoxicillin 500 mg 1 capsule by Oral route 3 times per day for 14 days Dec, Active Veramyst 27.5 mcg/Actuation 1 sprays by Nasal route 1 time per day Apr, Active Zofran ODT 4 mg take 1 tablets by Oral route every 4 hours PRN Nausea or Vomiting Aug, Active Flexeril 10 mg 1 tablet by Oral route 3 times per day PRN muscle spasm Aug, Active RESULTS No Results PROCEDURES No Known procedures [...]
--- OUTSIDE RECORDS SUMMARY | 2018-08-09 13:02 | XMS REPORT | Continuity of Care Document ---
Author Organization Unknown Address Unknown Allergies Active Description Code Type Severity Reaction Onset Reported/Identified Relationship to Patient Clinical Status Yes morphine Drug Allergy 10/29/2009 Yes morphine Drug Allergy N/A N/A 10/29/2009 Yes morphine [id number] Drug Allergy Mild NAUSEA 04/26/2016 Medications There is no data. Problems Date Dx Coded Attending Type Code Diagnosis Diagnosed By 02/18/1447 BHAVANI RODRIGUEZ MD Ot I69.391 02/18/1447 BHAVANI RODRIGUEZ MD Ot M19.90 10/29/2009 BHAVANI RODRIGUEZ MD 041.11 MSSA, METHICILLIN SUSCEPTIBLE 10/29/2009 BHAVANI RODRIGUEZ MD 381.81 Eustachian Tube Dysfunction 10/29/2009 041.11 MSSA, METHICILLIN SUSCEPTIBLE 10/29/2009 381.81 Eustachian Tube Dysfunction 10/29/2009 COURTNEY WILKINSON CAMERON K 041.11 MSSA, METHICILLIN SUSCEPTIBLE 10/29/2009 CHERELLE VALDEZ DOA K 381.81 Eustachian Tube Dysfunction 10/29/2009 VALDEZ DO CAMERON K 041.11 MSSA, METHICILLIN SUSCEPTIBLE 10/29/2009 VALDEZ DO CAMERON K 381.81 Eustachian Tube Dysfunction 10/29/2009 RUBÉN GOLDMAN APRN 041.11 MSSA, METHICILLIN SUSCEPTIBLE 10/29/2009 RUBÉN GOLDMAN APRN 381.81 Eustachian Tube Dysfunction 10/29/2009 BHAVANI RODRIGUEZ MD 041.11 MSSA, METHICILLIN SUSCEPTIBLE 10/29/2009 BHAVANI RODRIGUEZ MD 381.81 Eustachian Tube Dysfunction 10/29/2009 VALDEZ DO CAMERON K 041.11 MSSA, METHICILLIN SUSCEPTIBLE 10/29/2009 VALDEZ DO CAMERON K 381.81 Eustachian Tube Dysfunction 10/29/2009 WHITE DDSJOSE 041.11 MSSA, METHICILLIN SUSCEPTIBLE 10/29/2009 WHITE DDSJOSE 381.81 Eustachian Tube Dysfunction 10/29/2009 VALDEZ DO, CAMERON K 041.11 MSSA, METHICILLIN SUSCEPTIBLE 10/29/2009 VALDEZ DO, CAMERON K 381.81 Eustachian Tube Dysfunction 10/29/2009 WHITE DDS, JOSE Craven 041.11 MSSA, METHICILLIN SUSCEPTIBLE 10/29/2009 WHITE DDS, JOSE Craven 381.81 Eustachian Tube Dysfunction 10/29/2009 ANOOP ROVING HAND, JOSE A S 041.11 MSSA, METHICILLIN SUSCEPTIBLE 10/29/2009 ANOOP ROVING HAND, JOSE A S 381.81 Eustachian Tube Dysfunction 10/29/2009 VALDEZ DO, CAMERON K 041.11 MSSA, METHICILLIN SUSCEPTIBLE 10/29/2009 VALDEZ DO, CAMERON K 381.81 Eustachian Tube Dysfunction 10/29/2009 WHITE DDS, DOT Botello 041.11 MSSA, METHICILLIN SUSCEPTIBLE 10/29/2009 WHITE DONGS, DOT Botello 381.81 Eustachian Tube Dysfunction 10/29/2009 BHAVANI RODRIGUEZ [...] RODRIGUEZ MD 381.81 Eustachian Tube Dysfunction 10/29/2009 BHAVANI RODRIGUEZ MD 041.11 MSSA, METHICILLIN SUSCEPTIBLE 10/29/2009 BHAVANI RODRIGUEZ MD 381.81 Eustachian Tube Dysfunction 10/29/2009 DEREK DDS, JOSE Craven 041.11 MSSA, METHICILLIN SUSCEPTIBLE 10/29/2009 WHITE DDS, JOSE Craven 381.81 Eustachian Tube Dysfunction 12/03/2009 BHAVANI RODRIGUEZ MD 250.00 DIABETES MELLITUS TYPE 2 12/03/2009 BHAVANI RODRIGUEZ MD 272.2 HYPERLIPIDEMIA, MIXED 12/03/2009 BHAVANI RODRIGUEZ MD 401.9 HYPERTENSION, UNSPECIFIED ESSENTIAL 12/03/2009 BHAVANI RODRIGUEZ MD 530.81 GERD 12/03/2009 250.00 DIABETES MELLITUS TYPE 2 12/03/2009 272.2 HYPERLIPIDEMIA, MIXED 12/03/2009 401.9 HYPERTENSION, UNSPECIFIED ESSENTIAL 12/03/2009 530.81 GERD 12/03/2009 VALDEZ DO, CAMERON K 250.00 DIABETES MELLITUS TYPE 2 12/03/2009 VALDEZ DO, CAMERON K 272.2 HYPERLIPIDEMIA, MIXED 12/03/2009 VALDEZ DO, CAMERON K 401.9 HYPERTENSION, UNSPECIFIED ESSENTIAL 12/03/2009 VALDEZ DO, CAMERON K 530.81 GERD 12/03/2009 VALDEZ DO, ACMERON K 250.00 DIABETES MELLITUS TYPE 2 12/03/2009 VALDEZ DO, CAMERON K 272.2 HYPERLIPIDEMIA, MIXED 12/03/2009 VALDEZ DO, CAMERON K 401.9 HYPERTENSION, UNSPECIFIED ESSENTIAL 12/03/2009 VALDEZ DO, CAMERON K 530.81 GERD 12/03/2009 RUBÉN GOLDMAN APRN 250.00 DIABETES MELLITUS TYPE 2 12/03/2009 RUBÉN GOLDMAN APRN 272.2 HYPERLIPIDEMIA, MIXED 12/03/2009 RUBÉN GOLDMAN APRN T 401.9 HYPERTENSION, UNSPECIFIED ESSENTIAL 12/03/2009 RUBÉN GOLDMAN APRN T 530.81 GERD 12/03/2009 BHAVANI RODRIGUEZ MD [...] DDS, JOSE D 530.81 GERD 12/03/2009 ANOOP ROVING HAND, JOSE A S 250.00 DIABETES MELLITUS TYPE 2 12/03/2009 ANOOP ROVING HAND, JOSE A S 272.2 HYPERLIPIDEMIA, MIXED 12/03/2009 ANOOP ROVING HAND, JOSE A S 401.9 HYPERTENSION, UNSPECIFIED ESSENTIAL 12/03/2009 ANOOP ROVING HAND, JOSE A S 530.81 GERD 12/03/2009 VALDEZ DO, CAMERON K 250.00 DIABETES MELLITUS TYPE 2 12/03/2009 VALDEZ DO, CAMERON K 272.2 HYPERLIPIDEMIA, MIXED 12/03/2009 VALDEZ DO, CAMERON K 401.9 HYPERTENSION, UNSPECIFIED ESSENTIAL 12/03/2009 VALDEZ DO, CAMERON K 530.81 GERD 12/03/2009 WHITE DDS, DOT J 250.00 DIABETES MELLITUS TYPE 2 12/03/2009 WHITE DDS, ODT J 272.2 HYPERLIPIDEMIA, MIXED 12/03/2009 WHITE DDS, DOT J 401.9 HYPERTENSION, UNSPECIFIED ESSENTIAL 12/03/2009 WHITE DDS, DOT J 530.81 GERD 12/03/2009 JENNIFER LONDON, BHAVANI 250.00 DIABETES MELLITUS TYPE 2 12/03/2009 JENNIFER LONDON, BHAVANI 272.2 HYPERLIPIDEMIA, MIXED 12/03/2009 BHAVANI RODRIGUEZ MD 401.9 HYPERTENSION, UNSPECIFIED ESSENTIAL 12/03/2009 JENNIFER LONDON, BHAVANI 530.81 GERD 12/03/2009 JENNIFER LONDON, BHAVANI 250.00 DIABETES MELLITUS TYPE 2 12/03/2009 BHAVANI [...] K 250.02 Diabetes Mellitus Poorly Controlled 01/14/2010 RUBÉN GOLDMAN APRN 250.02 Diabetes Mellitus Poorly Controlled 01/14/2010 BHAVANI RODRIGUEZ MD 250.02 Diabetes Mellitus Poorly Controlled 01/14/2010 CHERELLE VALDEZ DOA K 250.02 Diabetes Mellitus Poorly Controlled 01/14/2010 WHITE DDS, JOSE D 250.02 Diabetes Mellitus Poorly Controlled 01/14/2010 CHERELLE VALDEZ DOA K 250.02 Diabetes Mellitus Poorly Controlled 01/14/2010 JOSE REED DDS 250.02 Diabetes Mellitus Poorly Controlled 01/14/2010 JOSE A DAVALOS APRN S 250.02 Diabetes Mellitus Poorly Controlled 01/14/2010 CHERELLE [...] Sinusitis Acute 04/07/2010 461.9 Sinusitis Acute 04/07/2010 CHERELLE VALDEZ DOA K 461.9 Sinusitis Acute 04/07/2010 VALDEZ CHERELLE WILKINSONA K 461.9 Sinusitis Acute 04/07/2010 RUBÉN GOLDMAN APRN 461.9 Sinusitis Acute 04/07/2010 BHAVANI RODRIGUEZ MD 461.9 Sinusitis Acute 04/07/2010 VALDEZ CAMERON WILKINSON K 461.9 Sinusitis Acute 04/07/2010 JOSE REED DDS 461.9 Sinusitis Acute 04/07/2010 VALDEZ CHERELLE WILKINSONA K 461.9 Sinusitis Acute 04/07/2010 JOSE REED DDS 461.9 Sinusitis Acute 04/07/2010 JOSE A DAVALOS APRN S 461.9 Sinusitis Acute 04/07/2010 VALDEZ CHERELLE WILKINSONA K 461.9 Sinusitis Acute 04/07/2010 DOT REED [...] LONDON, BHAVANI 311 DEPRESSIVE DISORDER NOS 04/18/2010 BHAVANI RODRIGUEZ MD 311 DEPRESSIVE DISORDER NOS 04/18/2010 JOSE REED DDS 311 DEPRESSIVE DISORDER NOS 02/06/2011 BHAVANI RODRIGUEZ MD 784.0 Headache 02/06/2011 784.0 Headache 02/06/2011 VALDEZ DO, CAMERON K 784.0 Headache 02/06/2011 VALDEZ DO, CAMERON K 784.0 Headache 02/06/2011 RUBÉN GOLDMAN APRN 784.0 Headache 02/06/2011 BHAVANI RODRIGUEZ MD 784.0 Headache 02/06/2011 VALDEZ DO, CAMERON K 784.0 Headache 02/06/2011 WHITE JOSE GANDHI 784.0 Headache 02/06/2011 VALDEZ DO, CAMERON K 784.0 Headache 02/06/2011 WHITE DDS, JOSE Craven 784.0 Headache 02/06/2011 JOSE A DAVALOS APRN S 784.0 Headache 02/06/2011 COURTNEY WILKINSON, CAMERON K 784.0 Headache 02/06/2011 WHITE DDS, [...] ILL-DEFINED CEREBROVASCULAR DISEASE 03/06/2011 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 03/06/2011 CAMERON VALDEZ DO K 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 03/06/2011 CHERELLE VALDEZ DOA K 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 03/06/2011 RUBÉN GOLDMAN APRN 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 03/06/2011 BHAVANI RODRIGUEZ MD 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 03/06/2011 CAMERON VALDEZ DO K 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 03/06/2011 JOSE REED DDS 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 03/06/2011 CAMERON VALDEZ DO K 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 03/06/2011 JOSE REED DDS 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 03/06/2011 JOSE A DAVALOS APRN S 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 03/06/2011 CHERELLE VALDEZ DOA K 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 03/06/2011 DOT REED DDS 436 ACUTE BUT ILL-DEFINED CEREBROVASCULAR [...] 12/10/2011 RUBÉN GOLDMAN APRN 110.1 ONYCHOMYCOSIS 12/10/2011 JENNIFER LONDON, BHAVANI 110.1 ONYCHOMYCOSIS 12/10/2011 VALDEZ DO, CAMERON K 110.1 ONYCHOMYCOSIS 12/10/2011 WHITE DDS, JOSE Craven 110.1 ONYCHOMYCOSIS 12/10/2011 VALDEZ DO, CAMERON K 110.1 ONYCHOMYCOSIS 12/10/2011 WHITE DDS, JOSE D 110.1 ONYCHOMYCOSIS 12/10/2011 JOSE A DAVALOS APRN 110.1 ONYCHOMYCOSIS 12/10/2011 VALDEZ DO, CAMERON K 110.1 ONYCHOMYCOSIS 12/10/2011 WHITE DONGS, DOT Botello 110.1 ONYCHOMYCOSIS 12/10/2011 JENNIFER LONDON, [...] AND ABOVE, IM) 01/05/2012 CAMERON VALDEZ DO K V04.81 FLU DX (3 YRS AND ABOVE, IM) 01/05/2012 CAMERON VALDEZ DO K V04.81 FLU DX (3 YRS AND ABOVE, IM) 01/05/2012 RUBÉN GOLDMAN APRN V04.81 FLU DX (3 YRS AND ABOVE, IM) 01/05/2012 BHAVANI RODRIGUEZ MD V04.81 FLU DX (3 YRS AND ABOVE, IM) 01/05/2012 VALDEZ CAMERON WILKINSON K V04.81 FLU DX (3 YRS AND ABOVE, IM) 01/05/2012 DEREK GANDHI, JOSE Craven V04.81 FLU DX (3 YRS [...] IN JOINT INVOLVING SHOULDER REGION 07/04/2012 BHAVANI RODRGIUEZ MD 71Júnior.41 PAIN IN JOINT INVOLVING SHOULDER [...] AND TENDONS IN SHOULDER REGION 11/03/2012 DOT REDE DDS 726.19 OTHER SPECIFIED DISORDERS OF [place] [...] TENDONS IN SHOULDER REGION 01/19/2013 XIOMY ALBERTO MARKETING RESEARCHER Ot 726.2 SHOULDER REGION DIS NEC 01/19/2013 XIOMY ALBERTO MARKETING RESEARCHER Ot V57.1 PHYSICAL THERAPY NEC 08/10/2013 CAMERON [...] IN SHOULDER REGION UNSPECIFIED 09/14/2013 BHAVANI RODRIGUEZ MD8.9 OTHER AND UNSPECIFIED NONINFECTIOUS GASTROENTERITIS AND COLITIS 09/14/2013 BHAVANI RODRIGUEZ MD8.9 OTHER AND UNSPECIFIED NONINFECTIOUS GASTROENTERITIS AND COLITIS 09/14/2013 BHAVANI RODRIGUEZ MD.9 OTHER AND UNSPECIFIED NONINFECTIOUS GASTROENTERITIS AND COLITIS 09/14/2013 BHAVANI RODRIGUEZ MD8.9 OTHER AND UNSPECIFIED NONINFECTIOUS GASTROENTERITIS AND COLITIS 09/14/2013 BHAVANI RODRIGUEZ MD8.9 OTHER AND UNSPECIFIED NONINFECTIOUS GASTROENTERITIS AND COLITIS 09/14/2013 JOSE REED DDS Herber 558.9 OTHER AND UNSPECIFIED NONINFECTIOUS GASTROENTERITIS AND [...] OF TIA, CEREBRAL INFARCTION 03/05/2014 XIOMY ALBERTO MARKETING RESEARCHER Ot 715.31 03/05/2014 XIOMY ALBERTO MARKETING RESEARCHER Ot 719.41 03/05/2014 XIOMY ALBERTO MARKETING RESEARCHER Ot 726.10 03/05/2014 XIOMY ALBERTO MARKETING RESEARCHER Ot V15.88 03/12/2014 XIOMY ALBERTO MARKETING RESEARCHER Ot V57.1 03/12/2014 XIOMY ALBERTO MARKETING RESEARCHER Ot V58.49 03/28/2014 XIOMY ALBERTO MARKETING RESEARCHER Ot V57.1 PHYSICAL THERAPY NEC 03/28/2014 XIOMY ALBERTO MARKETING RESEARCHER Ot V58.49 OTHER SPECIFIED AFTERCARE FOLLOWING SURG 04/25/2014 XIOMY ALBERTO MARKETING RESEARCHER Ot V57.1 04/25/2014 XIOMY ALBERTO MARKETING RESEARCHER Ot V58.49 09/13/2014 KASEY MEDINA MD Ot 434.91 CEREBRAL ART OCCLUSION NOS W CEREBRAL IN 09/13/2014 KASEY MEDINA MD Ot 593.9 RENAL URETERAL DIS NOS 09/13/2014 KASEY MEDINA MD Ot 784.3 APHASIA 09/13/2014 KASEY MEDINA MD Ot 786.07 WHEEZING 09/13/2014 KASEY MEDINA MD Ot V58.61 ANTICOAGULANTS,LT,CURRENT USE 09/13/2014 KASEY MEDINA MD Ot V58.69 OTH MED,LT,CURRENT USE 09/25/2014 VIRY LONDON, BELL E Ot [...] VIRY LONDON, BELL E Ot 278.00 10/05/2014 VIRY LONDON, BELL E Ot 311 10/05/2014 VIRY [...] BELL E Ot 438.89 10/07/2014 VIRY LONDON, EBLL E Ot 781.2 10/07/2014 VIRY LONDON, BELL [...] LONDON, BELL E Ot V46.2 10/19/2014 VIRY LONDON, BELL E Ot V57.89 10/19/2014 VIRY LONDON BELL E Ot V85.38 10/24/2014 BELL BAIRES MD Ot 250.00 DIAB RICKY WO COMPL, TYPE II OR UNSPEC TY 10/24/2014 BELL BAIRES MD Ot 272.4 HYPERLIPIDEMIA NEC/NOS 10/24/2014 BELL BAIRES MD E Ot 275.42 HYPERCALCEMIA 10/24/2014 BELL BAIRES MD E Ot 278.00 OBESITY, NOS 10/24/2014 VIRY LONDON BELL E Ot 311 DEPRESSIVE DISORDER NEC 10/24/2014 BELL BAIRES MD E Ot 401.9 HYPERTENSION NOS 10/24/2014 VINAYAK BAIRES MDIC E Ot 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, 10/24/2014 BELL BAIRES MD E Ot 438.20 LATE EFF-CEREBR DIS,HEMIPLEGIA AFFECTING 10/24/2014 VIRY LONDON BELL E Ot 438.82 OTH LATE EFF-CEREB DIS, [...] Ot E912 RESP OBSTR-INHAL OBJ NEC 10/24/2014 VIRY LONDON BELL E Ot V44.1 GASTROSTOMY STATUS 10/24/2014 VINAYAK BAIRES MDIC E Ot V46.2 SUPPLEMENTAL OXYGEN 10/24/2014 VINAYAK BAIRES MDIC E Ot V57.89 REHABILITATION PROC NEC 10/24/2014 BELL BAIRES MD E Ot V85.38 BODY MASS INDEX 38.0-38.9, ADULT 11/29/2014 BHAVANI RODRIGUEZ MD Ot 250.00 DIAB RICKY WO COMPL, TYPE II OR UNSPEC TY 11/29/2014 BHAVANI RODRIGUEZ MD Ot 300.00 ANXIETY STATE NOS 11/29/2014 BHAVANI RODRIGUEZ MD Ot 305.1 TOBACCO USE DISORDER 11/29/2014 BHAVANI RODRIGUEZ MD Ot 311 DEPRESSIVE DISORDER NEC 11/29/2014 BHAVANI RODRIGUEZ MD Ot 356.9 IDIO PERIPH NEURPTHY NOS 11/29/2014 JENNIFER LONDON, BHAVANI Del Real Ot 401.9 HYPERTENSION NOS 11/29/2014 JENNIFER LONDON, BHAVANI Del Real Ot 414.01 CORONARY ATHEROSCLEROSIS OF [place] CORON 11/29/2014 JENNIFER LONDON, BHAVANI Del Real [...] BHAVANI Del Real Ot 787.91 DIARRHEA 11/29/2014 JENNIFER LONDON, BHAVANI Del Real Ot E11.9 TYPE 2 DIABETES MELLITUS WITHOUT COMPLIC 11/29/2014 JENNIFER LONDON, BHAVANI Del Real Ot F17.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, UNSPECIFIED, UNCOMP 11/29/2014 JENNIFER LONDON, BHAVANI Del Real Ot F32.9 MAJOR DEPRESSIVE DISORDER, SINGLE EPISOD 11/29/2014 JENNIFER LONDON, BHAVANI Del Real Ot F41.9 ANXIETY DISORDER, UNSPECIFIED 11/29/2014 JENNIFER LONDON, BHAVANI Del Real Ot G60.9 HEREDITARY AND IDIOPATHIC NEUROPATHY, UN 11/29/2014 JENNIFER LONDON, BHAVANI Del Real Ot I10 ESSENTIAL (PRIMARY) HYPERTENSION 11/29/2014 BHAVANI RODRIGUEZ MD Ot I25.10 ATHSCL HEART DISEASE OF [place] CORONARY 11/29/2014 JENNIFER LONDON, BHAVANI Del Real Ot I48.91 UNSPECIFIED ATRIAL FIBRILLATION 11/29/2014 JENNIFER LONDON, BHAVANI Del Real Ot 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 11/29/2014 BHAVANI RODRIGUEZ MD Ot I69.959 HEMIPLGA FOLLOWING UNSP CEREBVASC DISEAS 11/29/2014 BHAVANI RODRIGUEZ MD Ot 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 11/29/2014 BHAVANI RODRIGUEZ MD Ot K21.9 GASTRO-ESOPHAGEAL REFLUX DISEASE WITHOUT 11/29/2014 BHAVANI RODRIGUEZ MD, Ot 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 11/29/2014 BHAVANI RODRIGUEZ MD Ot M12.9 ARTHROPATHY, UNSPECIFIED 11/29/2014 BHAVANI RODRIGUEZ MD, Ot N39.0 URINARY TRACT INFECTION, SITE NOT SPECIF 11/29/2014 BHAVANI RODRIGUEZ MD, Ot V10.42 HX-UTERUS MALIGNANCY NEC 11/29/2014 BHAVANI RODRIGUEZ MD, Ot V44.1 GASTROSTOMY STATUS 11/29/2014 BHAVANI RODRIGUEZ MD Ot V49.86 DO NOT RESUSCITATE STATUS 11/29/2014 BHAVANI RODRIGUEZ MD Ot V58.67 LONG-TERM (CURRENT) USE OF INSULIN 11/29/2014 BHAVANI RODRIGUEZ MD Ot V60.4 NO FAMILY ABLE TO CARE 11/29/2014 BHAVANI RODRIGUEZ MD Ot Z66 DO NOT RESUSCITATE 11/29/2014 BHAVANI RODRIGUEZ MD Ot Z74.2 NEED FOR ASSIST AT HOME NO HOUSE MEMB 11/29/2014 BHAVANI RODRIGUEZ MD, Ot Z79.4 SALES COMPENSATION ANALYST (CURRENT) USE OF INSULIN 11/29/2014 BHAVANI RODRIGUEZ MD Ot Z85.42 PERSONAL HISTORY OF MALIGNANT NEOPLASM O 11/29/2014 BHAVANI RODRIGUEZ MD Ot Z93.1 GASTROSTOMY STATUS 12/23/2014 DANIEL LONDON, LEONIE Tse Ot Z43.1 ENCOUNTER FOR ATTENTION TO GASTROSTOMY 02/16/2015 JAME PAGAN APRN Ot Z43.1 ENCOUNTER FOR ATTENTION TO GASTROSTOMY 02/25/2015 NAFISA PRATER MD Ot E11.649 TYPE 2 DIABETES MELLITUS WITH HYPOGLYCEM 02/25/2015 NAFISA PRATER MD Ot I10 ESSENTIAL (PRIMARY) HYPERTENSION 02/25/2015 NAFISA PRATER MD Ot I48.91 UNSPECIFIED ATRIAL FIBRILLATION 02/25/2015 NAFISA PRATER MD Ot I69.954 HEMIPLGA FOL UNSP CEREBVASC DISEASE AFF 02/25/2015 NAFISA PRATER MD, Ot 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 02/25/2015 NAFISA PRATER MD Ot R13.10 DYSPHAGIA, UNSPECIFIED 02/25/2015 NAFISA PRATER MD Ot R79.89 OTHER SPECIFIED ABNORMAL FINDINGS OF BLO 02/25/2015 NAFISA PRATER MD Ot Z79.4 SALES COMPENSATION ANALYST (CURRENT) USE OF INSULIN 03/29/2015 BHAVANI RODRIGUEZ MD Ot E11.9 TYPE 2 DIABETES MELLITUS WITHOUT COMPLIC 03/29/2015 BHAVANI RODRIGUEZ MD Ot E78.5 HYPERLIPIDEMIA, UNSPECIFIED 03/29/2015 BHAVANI RODRIGUEZ MD Ot I10 ESSENTIAL (PRIMARY) HYPERTENSION 03/29/2015 BHAVANI RODRIGUEZ MD, Ot I25.10 ATHSCL HEART DISEASE OF [place] CORONARY 03/29/2015 BHAVANI RODRIGUEZ MD Ot I48.91 [...] MD Ot Z66 DO NOT RESUSCITATE 03/29/2015 BHAAVNI RODRIGUEZ MD Ot Z79.4 FDC (CURRENT) USE OF INSULIN 04/05/2015 BHAVANI RODRIGUEZ MD Ot I69.391 04/05/2015 BHAVANI RODRIGUEZ MD Ot M19.90 05/02/2015 BHAVANI RODRIGUEZ MD Ot I69.391 DYSPHAGIA FOLLOWING CEREBRAL INFARCTION 05/02/2015 BHAVANI RODRIGUEZ MD, Ot M19.90 UNSPECIFIED OSTEOARTHRITIS, UNSPECIFIED 08/10/2015 VILLA TAVERA DO Ot E11.9 TYPE 2 DIABETES MELLITUS WITHOUT COMPLIC 08/10/2015 VILLA TAVERA DO Ot 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 08/10/2015 VILLA TAVERA DO Ot 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 08/10/2015 VILLA TAVERA DO Ot I69.998 OTHER SEQUELAE FOLLOWING UNSPECIFIED CER 08/10/2015 VILLA TAVERA DO Ot S70.02XA CONTUSION OF LEFT HIP, INITIAL ENCOUNTER 08/10/2015 VILLA TAVERA DO Ot Z79.4 FDC (CURRENT) USE OF INSULIN 08/10/2015 VILLA TAVERA DO Ot Z85.42 PERSONAL HISTORY OF MALIGNANT NEOPLASM O 08/10/2015 VILLA TAVERA DO Ot Z87.891 PERSONAL HISTORY OF NICOTINE DEPENDENCE 08/10/2015 VILLA TAVERA DO Ot Z93.1 GASTROSTOMY STATUS 08/16/2015 ANIVAL LONDON, SATINDER Hobbs Ot E11.9 TYPE 2 DIABETES MELLITUS WITHOUT COMPLIC 08/16/2015 ANIVAL LONDON, SATINDER Hobbs Ot 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 08/16/2015 SATINDER FLORIAN MD Ot 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 08/16/2015 SATINDER FLORIAN MD Ot I69.998 OTHER SEQUELAE FOLLOWING UNSPECIFIED CER 08/16/2015 SATINDER FLORIAN MD Ot K21.9 GASTRO-ESOPHAGEAL REFLUX DISEASE WITHOUT 08/16/2015 SATINDER FLORIAN MD Ot Z43.1 ENCOUNTER FOR ATTENTION TO GASTROSTOMY 08/16/2015 SATINDER FLORIAN MD Ot Z79.4 FDC (CURRENT) USE OF INSULIN 08/16/2015 SATINDER FLORIAN MD Ot Z85.42 PERSONAL HISTORY OF MALIGNANT NEOPLASM O 08/16/2015 ANIVAL LONDON, SATINDER Hobbs Ot Z87.891 PERSONAL HISTORY OF NICOTINE DEPENDENCE [...] GASTROSTOMY 08/20/2015 SATINDER FLORIAN MD Ot Z79.4 SALES COMPENSATION ANALYST (CURRENT) USE OF INSULIN 08/20/2015 SATINDER FLORIAN [...] GASTROSTOMY 08/31/2015 SATINDER FLORIAN MD Ot Z79.4 SALES COMPENSATION ANALYST (CURRENT) USE OF INSULIN 08/31/2015 SATINDER FLORIAN MD Ot Z85.42 PERSONAL HISTORY OF MALIGNANT NEOPLASM O 08/31/2015 SATINDER FLORIAN MD Ot Z87.891 PERSONAL HISTORY OF NICOTINE DEPENDENCE 09/01/2015 SATINDER FLORIAN MD Ot E11.9 TYPE 2 [...] GASTROSTOMY 09/01/2015 SATINDER FLORIAN MD Ot Z79.4 FDC (CURRENT) USE OF INSULIN 09/01/2015 SATINDER FLORIAN MD Ot Z85.42 PERSONAL HISTORY OF MALIGNANT NEOPLASM O 09/01/2015 ANIVAL LONDON SATINDER Hobbs Ot Z87.891 PERSONAL HISTORY OF NICOTINE DEPENDENCE 04/26/2016 CHANEL LONDON, JON Shabazz Ot E11.9 TYPE 2 DIABETES MELLITUS WITHOUT COMPLIC 04/26/2016 JON BUCHANAN MD Ot I10 ESSENTIAL (PRIMARY) HYPERTENSION 04/26/2016 JON BUCHANAN MD Ot I48.2 CHRONIC ATRIAL FIBRILLATION 04/26/2016 JON BUCHANAN MD Ot 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 04/26/2016 JON BUCHANAN MD Ot 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 04/26/2016 JON BUCHANAN MD Ot 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 04/26/2016 CHANEL LONDON, JON Shabazz Ot K44.9 DIAPHRAGMATIC HERNIA WITHOUT OBSTRUCTION 04/26/2016 CHANEL LONDON, JON Shabazz Ot M40.209 UNSPECIFIED KYPHOSIS, SITE UNSPECIFIED 04/26/2016 JON BUCHANAN MD Ot N39.0 URINARY TRACT INFECTION, SITE NOT SPECIF 04/26/2016 JON BUCHANAN MD Ot R06.02 SHORTNESS OF BREATH 04/26/2016 JON BUCHANAN MD Ot R09.02 HYPOXEMIA 04/26/2016 OJN BUCHANAN MD Ot T18.198A OTH FOREIGN OBJECT IN ESOPHAGUS CAUSING 04/26/2016 JON BUCHANAN MD Ot Y92.[address] IN SHELTER PLACE 04/26/2016 JON BUCHANAN MD Ot Z79.4 FDC (CURRENT) USE OF INSULIN 04/26/2016 JON BUCHANAN MD Ot Z79.899 OTHER FDC (CURRENT) DRUG THERAPY 04/26/2016 JON BUCHANAN MD Ot Z93.1 GASTROSTOMY STATUS 04/28/2016 JON BUCHANAN MD Ot E11.9 TYPE 2 DIABETES MELLITUS WITHOUT COMPLIC 04/28/2016 JON BUCHANAN MD Ot I10 ESSENTIAL (PRIMARY) HYPERTENSION 04/28/2016 JON BUCHANAN MD Ot I48.2 CHRONIC ATRIAL FIBRILLATION 04/28/2016 JON BUCHANAN MD Ot 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 04/28/2016 JON BUCHANAN MD Ot 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 04/28/2016 CHANEL LONDON JON Shabazz Ot 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 04/28/2016 CHANEL LONDON JON Shabazz Ot K44.9 DIAPHRAGMATIC HERNIA WITHOUT OBSTRUCTION 04/28/2016 CHANEL LONDON JON Shabazz Ot M40.209 UNSPECIFIED KYPHOSIS, SITE UNSPECIFIED 04/28/2016 CHANEL LONDON JON Shabazz Ot N39.0 URINARY TRACT INFECTION, SITE NOT SPECIF 04/28/2016 JON BUCHANAN MD Mele Ot R06.02 SHORTNESS OF BREATH 04/28/2016 CHANEL LONDON JON Shabazz Ot R09.02 HYPOXEMIA 04/28/2016 CHANEL LONDON JON Shabazz Ot T18.198A OTH FOREIGN OBJECT IN ESOPHAGUS CAUSING 04/28/2016 JON BUCHANAN MD Ot Y92.[address] IN [place] 04/28/2016 CHANEL LONDON JON Shabazz Ot Z79.4 SALES COMPENSATION ANALYST (CURRENT) USE OF INSULIN 04/28/2016 JON BUCHANAN MD Ot Z79.899 OTHER [facility] (CURRENT) DRUG THERAPY 04/28/2016 CHANEL LONDON JON Shabazz Ot Z93.1 GASTROSTOMY STATUS 03/25/2017 ANIVAL LONDON, SATINDER Hobbs Ot Z01.818 ENCOUNTER FOR OTHER PREPROCEDURAL EXAMIN 03/25/2017 ANIVAL LONDON, SATINDER Hobbs Ot Z43.1 ENCOUNTER FOR ATTENTION TO GASTROSTOMY 03/26/2017 SATINDER FLORIAN MD Ot Z01.818 ENCOUNTER FOR OTHER PREPROCEDURAL EXAMIN 03/26/2017 SATINDER FLORIAN MD Ot Z43.1 ENCOUNTER FOR ATTENTION TO GASTROSTOMY 03/29/2017 XIOMY ALBERTO MARKETING RESEARCHER Ot 715.31 LOC OSTEOARTH NOS-SHLDER 03/29/2017 XIOMY ALBERTO MARKETING RESEARCHER Ot 719.41 JOINT PAIN-SHLDER 03/29/2017 XIOMY ALBERTO MARKETING RESEARCHER Ot 726.10 BURSAE TENDONS DIS SHLDER NOS 03/29/2017 XIOMY ALBERTO MARKETING RESEARCHER Ot V15.88 HISTORY OF FALL 03/29/2017 MATTY LONDON, LIDYA Bernard Ot 840.4 SPRAIN ROTATOR CUFF 03/29/2017 MATTY LONDON, LIDYA Bernard Ot E000.8 OTHER EXTERNAL CAUSE STATUS 03/29/2017 LIDYA STARR MD Ot E928.9 ACCIDENT NOS 03/29/2017 LIDYA STARR MD Ot V72.63 PRE-PROCEDURAL LABORATORY EXAMINATION 03/29/2017 LIDYA STARR MD Ot V72.81 [id number] CARDIOVASCULAR 03/29/2017 LIDYA STARR MD Ot V74.8 SCREEN-BACTERIAL DIS NEC 03/29/2017 EVA LORENZO MD, Ot N39.0 URINARY TRACT INFECTION, SITE NOT SPECIF 03/29/2017 XIOMY ALBERTO MARKETING RESEARCHER Ot 715.31 LOC OSTEOARTH NOS-SHLDER 03/29/2017 XIOMY ALBERTO MARKETING RESEARCHER Ot 719.41 JOINT PAIN-SHLDER 03/29/2017 XIOMY ALBERTO MARKETING RESEARCHER Ot 726.10 BURSAE TENDONS DIS SHLDER NOS 03/29/2017 XIOMY ALBERTO MARKETING RESEARCHER Ot V15.88 HISTORY OF FALL 03/29/2017 LIDYA STARR MD Ot 840.4 SPRAIN ROTATOR CUFF 03/29/2017 LIDYA STARR MD Ot E000.8 OTHER EXTERNAL CAUSE STATUS 03/29/2017 LIDYA STARR MD Ot E928.9 ACCIDENT NOS 03/29/2017 LIDYA STARR MD Ot V72.63 PRE-PROCEDURAL LABORATORY EXAMINATION 03/29/2017 LIDYA STARR MD Ot V72.81 [id number] CARDIOVASCULAR 03/29/2017 LIDYA STARR MD Ot V74.8 [...] ANIVAL LONDON, SATINDER Hobbs Ot Z79.899 OTHER SALES COMPENSATION ANALYST (CURRENT) DRUG THERAPY 03/30/2017 EVA LORENZO MD, Ot N39.0 URINARY TRACT INFECTION, SITE NOT SPECIF 03/30/2017 EVA LORENZO MD Ot N39.0 URINARY TRACT INFECTION, SITE NOT SPECIF 03/30/2017 XIOMY ALBERTO Ot 715.31 LOC OSTEOARTH NOS-SHLDER 03/30/2017 XIOMY ALBERTO Ot 719.41 JOINT PAIN-SHLDER 03/30/2017 XIOMY ALBERTOP Ot 726.10 BURSAE TENDONS DIS SHLDER NOS 03/30/2017 XIOMY ALBERTO MARKETING RESEARCHER Ot V15.88 HISTORY OF FALL 03/30/2017 LIDYA STARR MD P Ot 840.4 SPRAIN ROTATOR CUFF 03/30/2017 LIDYA STARR MD P Ot E000.8 OTHER EXTERNAL CAUSE STATUS 03/30/2017 LIDYA STARR MD Ot E928.9 ACCIDENT NOS 03/30/2017 LIDYA STARR MD Ot V72.63 PRE-PROCEDURAL LABORATORY EXAMINATION 03/30/2017 LIDYA STARR MD Ot V72.81 [id number] CARDIOVASCULAR 03/30/2017 LIDYA STARR MD Ot V74.8 SCREEN-BACTERIAL DIS NEC 03/30/2017 EVA LORENZO MD Ot N39.0 URINARY TRACT [...] ANIVAL LONDON, SATINDER Hobbs Ot Z79.899 OTHER [facility] (CURRENT) DRUG THERAPY 04/08/2017 EVA LORENZO MD Ot N39.0 URINARY TRACT INFECTION, SITE NOT SPECIF 04/13/2017 XIOMY ALBERTO Ot 715.31 LOC OSTEOARTH NOS-SHLDER 04/13/2017 XIOMY ALBERTO Ot 719.41 JOINT PAIN-SHLDER 04/13/2017 XIOMY ALBERTOP Ot 726.10 BURSAE TENDONS DIS SHLDER NOS 04/13/2017 XIOMY ALBERTOP Ot V15.88 HISTORY OF FALL 04/13/2017 LIDYA STARR MD Ot 840.4 SPRAIN ROTATOR CUFF 04/13/2017 LIDYA STARR MD Ot E000.8 OTHER EXTERNAL CAUSE STATUS 04/13/2017 LIDYA STARR MD, Ot E928.9 ACCIDENT NOS 04/13/2017 LIDYA STARR MD Ot V72.63 PRE-PROCEDURAL LABORATORY EXAMINATION 04/13/2017 LIDYA STARR MD Ot V72.81 [id number] CARDIOVASCULAR 04/13/2017 LIDYA STARR MD, Ot V74.8 SCREEN-BACTERIAL DIS NEC 04/13/2017 BJ LONDON, EVA Tse Ot N39.0 URINARY TRACT INFECTION, SITE NOT SPECIF 04/15/2017 MARYCARMEN ANDREW MD, Ot Z01.818 ENCOUNTER FOR OTHER PREPROCEDURAL EXAMIN 04/15/2017 MARYCARMEN ANDREW MD Ot Z43.1 ENCOUNTER FOR ATTENTION TO GASTROSTOMY 04/16/2017 MARYCARMEN ANDREW MD, Ot Z01.818 ENCOUNTER FOR OTHER PREPROCEDURAL EXAMIN 04/16/2017 MARYCARMEN ANDREW MD, Ot Z43.1 ENCOUNTER FOR ATTENTION TO GASTROSTOMY 04/21/2017 MARYCARMEN ANDREW MD Ot E11.9 TYPE 2 DIABETES MELLITUS WITHOUT COMPLIC 04/21/2017 MARYCARMEN ANDREW MD Ot E78.00 PURE HYPERCHOLESTEROLEMIA, UNSPECIFIED 04/21/2017 MARYCARMEN ANDREW MD Ot F32.9 MAJOR DEPRESSIVE DISORDER, SINGLE EPISOD 04/21/2017 MARYCARMEN ANDREW MD, Ot F41.9 ANXIETY DISORDER, UNSPECIFIED 04/21/2017 MARYCARMEN ANDREW MD Ot I10 ESSENTIAL (PRIMARY) HYPERTENSION 04/21/2017 MARYCARMEN ANDREW MD, Ot I69.354 HEMIPLGA FOLLOWING CEREBRAL INFRC AFFECT 04/21/2017 MARYCARMEN ANDREW MD, Ot K21.9 GASTRO-ESOPHAGEAL REFLUX DISEASE WITHOUT 04/21/2017 MARYCARMEN ANDREW MD Ot Z43.1 ENCOUNTER FOR ATTENTION TO GASTROSTOMY 04/21/2017 MARYCARMEN ANDREW MD, Ot Z79.899 OTHER SALES COMPENSATION ANALYST (CURRENT) DRUG THERAPY 04/21/2017 MARYCARMEN ANDREW MD, Ot Z85.43 PERSONAL HISTORY OF MALIGNANT NEOPLASM O 04/21/2017 MARYCARMEN ANDREW MD Ot Z87.891 PERSONAL HISTORY OF NICOTINE DEPENDENCE 04/23/2017 XIOMY ALBERTO Ot 715.31 LOC OSTEOARTH NOS-SHLDER 04/23/2017 XIOMY ALBERTO MARKETING RESEARCHER Ot 719.41 JOINT PAIN-SHLDER 04/23/2017 XIOMY ALBERTO MARKETING RESEARCHER Ot 726.10 BURSAE TENDONS DIS SHLDER NOS 04/23/2017 XIOMY ALBERTO MARKETING RESEARCHER Ot V15.88 HISTORY OF FALL 04/23/2017 LIDYA STARR MD Ot 840.4 SPRAIN ROTATOR CUFF 04/23/2017 LIDYA STARR MD Ot E000.8 OTHER EXTERNAL CAUSE STATUS 04/23/2017 LIDYA STARR MD Ot E928.9 ACCIDENT NOS 04/23/2017 LIDYA STARR MD Ot V72.63 PRE-PROCEDURAL LABORATORY EXAMINATION 04/23/2017 LIDYA STARR MD Ot V72.81 [id number] CARDIOVASCULAR 04/23/2017 LIDYA STARR MD Ot V74.8 [...] FOR ATTENTION TO GASTROSTOMY 04/27/2017 MARYCARMEN ANDREW MD Ot T18.2XXA FOREIGN BODY IN STOMACH, INITIAL ENCOUNT 04/27/2017 MARYCARMEN ANDREW MD Ot Z43.1 ENCOUNTER FOR ATTENTION TO GASTROSTOMY 04/29/2017 MARYCARMEN ANDREW MD Ot Z43.1 ENCOUNTER FOR ATTENTION TO GASTROSTOMY 04/30/2017 XIOMY ALBERTO Ot 715.31 LOC OSTEOARTH NOS-SHLDER 04/30/2017 XIOMY ALBERTOP Ot 719.41 JOINT PAIN-SHLDER 04/30/2017 ALBERTO, XIOMY D MARKETING RESEARCHER Ot 726.10 BURSAE TENDONS DIS SHLDER NOS 04/30/2017 XOIMY ALBERTO MARKETING RESEARCHER Ot V15.88 HISTORY OF FALL 04/30/2017 LIDYA STARR MD Ot 840.4 SPRAIN ROTATOR CUFF 04/30/2017 LIDYA STARR MD Ot E000.8 OTHER EXTERNAL CAUSE STATUS 04/30/2017 LIDYA STARR MD Ot E928.9 ACCIDENT NOS 04/30/2017 LIDYA STARR MD Ot V72.63 PRE-PROCEDURAL LABORATORY EXAMINATION 04/30/2017 LIDYA STARR MD Ot V72.81 [id number] CARDIOVASCULAR 04/30/2017 LIDYA STARR MD Ot V74.8 [...] FOR ATTENTION TO GASTROSTOMY 05/05/2017 XIOMY ALBERTO MARKETING RESEARCHER Ot 715.31 LOC OSTEOARTH NOS-SHLDER 05/05/2017 XIOMY ALBERTO MARKETING RESEARCHER Ot 719.41 JOINT PAIN-SHLDER 05/05/2017 XIOMY ALBERTO MARKETING RESEARCHER Ot 726.10 BURSAE TENDONS DIS SHLDER NOS 05/05/2017 XIOMY ALBERTO MARKETING RESEARCHER Ot V15.88 HISTORY OF FALL 05/05/2017 LIDYA STARR MD Ot 840.4 SPRAIN ROTATOR CUFF 05/05/2017 LIDYA STARR MD Ot E000.8 OTHER EXTERNAL CAUSE STATUS 05/05/2017 LIDYA STARR MD Ot E928.9 ACCIDENT NOS 05/05/2017 LIDYA STARR MD Ot V72.63 PRE-PROCEDURAL LABORATORY EXAMINATION 05/05/2017 LIDYA STARR MD Ot V72.81 [id number] CARDIOVASCULAR 05/05/2017 MATTY LONDON, LIDYA Bernard Ot V74.8 SCREEN-BACTERIAL DIS NEC 05/05/2017 BJ LONDON, EVA Tse Ot N39.0 URINARY [...] F41.9 ANXIETY DISORDER, UNSPECIFIED 05/05/2017 MARYCARMEN ANDREW MD, Ot I10 ESSENTIAL (PRIMARY) HYPERTENSION 05/05/2017 MARYCARMEN ANDREW MD Ot I69.354 HEMIPLGA FOLLOWING CEREBRAL INFRC AFFECT 05/05/2017 MARYCARMEN ANDREW MD, Ot K21.9 GASTRO-ESOPHAGEAL REFLUX DISEASE WITHOUT 05/05/2017 MARYCARMEN ANDREW MD, Ot Z43.1 ENCOUNTER FOR ATTENTION TO GASTROSTOMY 05/05/2017 MARYCARMEN ANDREW MD, Ot Z79.899 OTHER SALES COMPENSATION ANALYST (CURRENT) DRUG THERAPY 05/05/2017 MARYCARMEN ANDREW MD, [...] Ot Z93.1 GASTROSTOMY STATUS 05/14/2017 XIOMY ALBERTO MARKETING RESEARCHER Ot 715.31 LOC OSTEOARTH NOS-SHLDER 05/14/2017 XIOMY ALBERTO MARKETING RESEARCHER Ot 719.41 JOINT PAIN-SHLDER 05/14/2017 XIOMY ALBERTO MARKETING RESEARCHER Ot 726.10 BURSAE TENDONS DIS SHLDER NOS 05/14/2017 XIOMY ALBERTO MARKETING RESEARCHER Ot V15.88 HISTORY OF FALL 05/14/2017 LIDYA STARR MD Ot 840.4 SPRAIN ROTATOR CUFF 05/14/2017 LIDYA STARR MD Ot E000.8 OTHER EXTERNAL CAUSE STATUS 05/14/2017 LIDYA STARR MD Ot E928.9 ACCIDENT NOS 05/14/2017 LIDYA STARR MD Ot V72.63 PRE-PROCEDURAL LABORATORY EXAMINATION 05/14/2017 LIDYA STARR MD Ot V72.81 [id number] CARDIOVASCULAR 05/14/2017 LIDYA STARR MD Ot V74.8 SCREEN-BACTERIAL DIS NEC 05/14/2017 EVA LORENZO MD Ot N39.0 URINARY TRACT INFECTION, SITE NOT SPECIF 05/14/2017 MARYCARMEN ANDREW MD Ot K59.00 CONSTIPATION, UNSPECIFIED 05/14/2017 MARYCARMEN ANDREW MD, Ot Z43.1 ENCOUNTER FOR ATTENTION TO GASTROSTOMY 05/14/2017 MARYCARMEN ANDREW MD, Ot T18.2XXA FOREIGN BODY IN STOMACH, INITIAL ENCOUNT 05/14/2017 MARYCARMEN ANDREW MD, Ot Z43.1 ENCOUNTER FOR ATTENTION TO GASTROSTOMY 05/14/2017 MARYCARMEN ANDREW MD, Ot Z43.1 ENCOUNTER FOR ATTENTION TO GASTROSTOMY 05/14/2017 MARYCARMEN ANDREW MD Ot R19.01 RIGHT UPPER QUADRANT ABDOMINAL SWELLING, 05/14/2017 MARYCARMEN ANDREW MD Ot Z03.89 ENCNTR FOR OBS FOR OTH SUSPECTED DISEASE 05/14/2017 MARYCARMEN ANDREW MD, Ot Z93.1 GASTROSTOMY STATUS 05/14/2017 EVA LORENZO [...] FOR ATTENTION TO GASTROSTOMY 06/22/2017 MARYCARMEN ANDREW MD, Ot T18.2XXA FOREIGN BODY IN STOMACH, INITIAL ENCOUNT 06/22/2017 MARYCARMEN ANDREW MD Ot Z43.1 ENCOUNTER FOR ATTENTION TO GASTROSTOMY 06/22/2017 MARYCARMEN ANDREW MD, Ot K59.00 CONSTIPATION, UNSPECIFIED 06/22/2017 MARYCARMEN ANDREW MD Ot Z43.1 ENCOUNTER FOR ATTENTION TO GASTROSTOMY 06/22/2017 MARYCARMEN ANDREW MD Ot R19.01 RIGHT UPPER QUADRANT ABDOMINAL SWELLING, 06/22/2017 MARYCARMEN ANDREW MD Ot Z03.89 ENCNTR FOR OBS FOR OTH SUSPECTED DISEASE 06/22/2017 MARYCARMEN ANDREW MD, Ot Z93.1 GASTROSTOMY STATUS 06/23/2017 MARYCARMEN ANDREW MD Ot K59.00 CONSTIPATION, UNSPECIFIED 06/23/2017 MARYCARMEN ANDREW MD, Ot Z43.1 ENCOUNTER FOR ATTENTION TO GASTROSTOMY 06/23/2017 MARYCARMEN ANDREW MD, Ot T18.2XXA FOREIGN BODY IN STOMACH, INITIAL ENCOUNT 06/23/2017 MARYCARMEN ANDREW MD, Ot Z43.1 ENCOUNTER FOR ATTENTION TO GASTROSTOMY 06/23/2017 MARYCARMEN ANDREW MD Ot R19.01 RIGHT UPPER QUADRANT ABDOMINAL SWELLING, 06/23/2017 MARYCARMEN ANDREW MD, Ot Z03.89 ENCNTR FOR OBS FOR OTH SUSPECTED DISEASE 06/23/2017 MARYCARMEN ANDREW MD, Ot Z93.1 GASTROSTOMY STATUS 07/23/2017 EVA LORENZO MD Ot R10.2 PELVIC AND PERINEAL PAIN 07/23/2017 EVA LORENZO MD Ot R35.0 FREQUENCY OF MICTURITION 12/30/2017 MARYCARMEN ANDREW MD Ot E46 UNSPECIFIED PROTEIN-CALORIE MALNUTRITION 12/30/2017 MARYCARMEN ANDREW MD Ot I69.351 HEMIPLGA FOLLOWING CEREBRAL INFRC AFF RI 12/30/2017 MARYCARMEN ANDREW MD Ot I69.391 DYSPHAGIA FOLLOWING CEREBRAL INFARCTION 12/30/2017 MARYCARMEN ANDREW MD Ot K94.23 GASTROSTOMY MALFUNCTION 07/30/2018 XIOMY ALBERTOP Ot 715.31 LOC OSTEOARTH NOS-SHLDER 07/30/2018 XIOMY ALBERTO MARKETING RESEARCHER Ot 719.41 JOINT PAIN-SHLDER 07/30/2018 XIOMY ALBERTO MARKETING RESEARCHER Ot 726.10 BURSAE TENDONS DIS SHLDER NOS 07/30/2018 XIOMY ALBERTO MARKETING RESEARCHER Ot V15.88 HISTORY OF FALL 07/30/2018 LIDYA STARR MD Ot 840.4 SPRAIN ROTATOR CUFF 07/30/2018 LIDYA STARR MD Ot E000.8 OTHER EXTERNAL CAUSE STATUS 07/30/2018 LIDYA STARR MD Ot E928.9 ACCIDENT NOS 07/30/2018 LIDYA STARR MD Ot V72.63 PRE-PROCEDURAL LABORATORY EXAMINATION 07/30/2018 LIDYA STARR MD Ot V72.81 [id number] CARDIOVASCULAR 07/30/2018 LIDYA STARR MD Ot V74.8 SCREEN-BACTERIAL DIS NEC 07/30/2018 EVA LORENZO MD, Ot N39.0 URINARY TRACT INFECTION, SITE NOT SPECIF 07/30/2018 MARYCARMEN ANDREW MD, Ot K59.00 CONSTIPATION, UNSPECIFIED 07/30/2018 MARYCARMEN ANDREW MD, Ot Z43.1 ENCOUNTER FOR ATTENTION TO GASTROSTOMY 07/30/2018 MARYCARMEN ANDREW MD, Ot T18.2XXA FOREIGN BODY IN STOMACH, INITIAL ENCOUNT 07/30/2018 MARYCARMEN ANDREW MD, Ot Z43.1 ENCOUNTER FOR ATTENTION TO GASTROSTOMY 07/30/2018 MARYCARMEN ANDREW MD, Ot Z43.1 ENCOUNTER FOR ATTENTION TO GASTROSTOMY 07/30/2018 MARYCARMEN ANDREW MD, Ot R19.01 RIGHT UPPER QUADRANT ABDOMINAL SWELLING, 07/30/2018 MARYCARMEN ANDREW MD, Ot Z03.89 ENCNTR FOR OBS FOR OTH SUSPECTED DISEASE 07/30/2018 MARYCARMEN ANDREW MD, Ot Z93.1 GASTROSTOMY STATUS 07/30/2018 EVA LORENZO MD Ot R10.2 PELVIC AND PERINEAL PAIN 07/30/2018 EVA LORENZO MD Ot R35.0 FREQUENCY OF MICTURITION 07/30/2018 MARYCARMEN ANDREW MD, Ot E46 UNSPECIFIED PROTEIN-CALORIE MALNUTRITION 07/30/2018 MARYCARMEN ANDREW MD Ot I69.351 HEMIPLGA FOLLOWING CEREBRAL INFRC AFF RI 07/30/2018 MARYCARMEN ANDREW MD Ot I69.391 DYSPHAGIA FOLLOWING CEREBRAL INFARCTION 07/30/2018 MARYCARMEN ANDREW MD, Ot K94.23 GASTROSTOMY MALFUNCTION 07/30/2018 JAME PAGAN APRN Ot E11.40 TYPE 2 DIABETES MELLITUS WITH DIABETIC N 07/30/2018 JAME PAGAN APRN Ot F32.9 MAJOR DEPRESSIVE DISORDER, SINGLE EPISOD 07/30/2018 JAME PAGAN APRN Ot F41.9 ANXIETY DISORDER, UNSPECIFIED 07/30/2018 JAME PAGAN APRN Ot I10 ESSENTIAL (PRIMARY) HYPERTENSION 07/30/2018 JAME PAGAN APRN Ot I25.10 ATHSCL HEART DISEASE OF [place] CORONARY 07/30/2018 JAME PAGAN APRN Ot I48.91 UNSPECIFIED ATRIAL FIBRILLATION 07/30/2018 JAME PAGAN APRN Ot K21.9 GASTRO-ESOPHAGEAL REFLUX DISEASE WITHOUT 07/30/2018 JAME PAGAN APRN Ot K94.23 GASTROSTOMY MALFUNCTION 07/30/2018 JAME PAGAN APRN Ot Z79.4 SALES COMPENSATION ANALYST (CURRENT) USE OF INSULIN 07/30/2018 JAME PAGAN APRN Ot Z86.010 PERSONAL HISTORY OF COLONIC POLYPS 07/30/2018 JAME PAGAN APRN Ot Z86.73 PRSNL HX OF TIA (TIA), AND CEREB INFRC W 07/30/2018 JAME PAGAN APRN Ot Z87.19 PERSONAL HISTORY OF OTHER DISEASES OF TH 07/30/2018 JAME PAGAN APRN Ot Z87.440 PERSONAL HISTORY OF URINARY (TRACT) INFE 07/30/2018 JAME PAGAN APRN Ot Z88.5 ALLERGY STATUS TO NARCOTIC AGENT STATUS 07/30/2018 JAME PAGAN APRN Ot Z90.710 ACQUIRED ABSENCE OF BOTH CERVIX AND UTER 07/30/2018 JAME PAGAN APRN Ot Z90.89 ACQUIRED ABSENCE OF OTHER ORGANS 07/30/2018 JAME PAGAN APRN Ot Z98.890 OTHER SPECIFIED POSTPROCEDURAL STATES 08/02/2018 JAME PAGAN APRN Ot E11.40 TYPE 2 DIABETES MELLITUS WITH DIABETIC N 08/02/2018 JAME PAGAN APRN Ot F32.9 MAJOR DEPRESSIVE DISORDER, SINGLE EPISOD 08/02/2018 JAME PAGAN APRN Ot F41.9 ANXIETY DISORDER, UNSPECIFIED 08/02/2018 JAME PAGAN APRN Ot I10 ESSENTIAL (PRIMARY) HYPERTENSION 08/02/2018 JAME PAGAN APRN Ot I25.10 ATHSCL HEART DISEASE OF [place] CORONARY 08/02/2018 JAME PAGAN APRN Ot I48.91 UNSPECIFIED ATRIAL FIBRILLATION 08/02/2018 JAME PAGAN APRN Ot K21.9 GASTRO-ESOPHAGEAL REFLUX DISEASE WITHOUT 08/02/2018 JAME PAGAN APRN Ot K94.23 GASTROSTOMY MALFUNCTION 08/02/2018 JAME PAGAN APRN Ot Z79.4 FDC (CURRENT) USE OF INSULIN 08/02/2018 JAME PAGAN APRN Ot Z86.010 PERSONAL HISTORY OF COLONIC POLYPS 08/02/2018 JAME PAGAN APRN Ot Z86.73 PRSNL HX OF TIA (TIA), AND CEREB INFRC W 08/02/2018 JAME PAGAN APRN Ot Z87.19 PERSONAL HISTORY OF OTHER DISEASES OF TH 08/02/2018 JAME PAGAN APRN Ot Z87.440 PERSONAL HISTORY OF URINARY (TRACT) INFE 08/02/2018 JAME PAGAN APRN Ot Z88.5 ALLERGY STATUS TO NARCOTIC AGENT STATUS 08/02/2018 JAME PAGAN APRN Ot Z90.710 ACQUIRED ABSENCE OF BOTH CERVIX AND UTER 08/02/2018 JAME PAGAN APRN Ot Z90.89 ACQUIRED ABSENCE OF OTHER ORGANS 08/02/2018 JAME PAGAN APRN Ot Z98.890 OTHER SPECIFIED POSTPROCEDURAL STATES Procedures Code Description [place] [address] A1C (IN-HOUSE) 07/04/2012 28229 MICRO ALBUMIN-IN HOUSE 07/04/2012 16876 UA LONG DIP 07/05/2012 OrthopXiomy Funes 07/06/2012 00793 JOINT INJECTION- INTERMEDIATE JOINT 11/03/2012 PHYSICAL PHYSICAL THERAPY, VIA RYLAN 11/03/2012 38731 XRAY SHOULDER LEFT COMP 2 VIEWS 12/15/2012 62495 ROUTINE VENIPUNCTURE 01/19/2013 48078 MICRO ALBUMIN-IN HOUSE 01/19/2013 05442 CBC 01/19/2013 [id number] GFR CALC (RESULT ONLY) 01/19/2013 33456 CMP 01/19/2013 51165 LIPID PANEL 01/19/2013 13456 A1C (RML) 01/19/2013 58742 JOINT INJECTION- INTERMEDIATE JOINT 02/09/2013 36028 MRI EXTREMITY JOINT, UPPER RIGHT, W/O CONTRAST 08/10/2013 OrthopLidya Chinchilla 08/11/2013 40316 A1C (IN-HOUSE) 08/28/2013 81341 MICRO ALBUMIN-IN HOUSE 12/01/2013 77205 A1C (IN-HOUSE) 12/01/2013 28546 ROUTINE VENIPUNCTURE 12/12/2013 79124 LIPID PANEL 12/12/2013 11750 A1C (IN-HOUSE) 03/20/2014 Results Test Result Range [...] Automated erythrocyte mean corpuscular hemoglobin concentration measurement (mass/volume) 33 g/dL 32-36 Automated erythrocyte distribution width ratio 12.0 % 10.0- 14.5 Automated blood platelet count (count/volume) 170 10*3/uL [...] Blood monocytes automated count (number/volume) 0.6 10*3 0.0- 1.0 Automated eosinophil count 0.1 10*3/uL 0.0-0.3 Automated blood basophil count (count/volume) 0.0 10*3/uL 0.0-0.1 Blood lactic acid measurement (moles/volume) - 04/26/16 06:37 Blood lactic acid measurement (moles/volume) 1.1 mmol/L 0.5- 2.0 Comprehensive metabolic panel - 04/26/16 06:37 Serum [...] Serum or plasma aspartate aminotransferase measurement (enzymatic activity/volume) 44 U/L 5-34 Serum or plasma alanine aminotransferase measurement (enzymatic activity/volume) 79 U/L 0-55 Serum or plasma protein measurement (mass/volume) 6.9 g/dL 6.4-8.2 Serum or plasma albumin measurement (mass/volume) 3.9 g/dL 3.2-4.5 Serum or plasma troponin i.cardiac measurement (mass/volume) - 04/26/16 06:37 Serum or plasma troponin i.cardiac measurement (mass/volume) < ng/mL <0.30 Bacterial blood culture - 04/26/16 06:37 FREE TEXT EXTERNAL SEE COMMENTS NRG QUANTITY OF GROWTH Isolated NR Bacterial blood culture [id number] [facility] Complete urinalysis with reflex to culture - 04/26/16 06:52 Urine color determination YELLOW NRG Urine clarity determination CLEAR NRG Urine pH measurement by test strip 7 5-9 Specific gravity of urine by test strip 1.010 1.016-1.022 Urine protein assay by test strip, semi-quantitative [...] sediment leukocyte count by microscopy (number/high power field) [HPF] NRG Bacteria detection in urine sediment [...] culture - 04/26/16 06:52 Bacterial urine culture [id number] NRG COLONY COUNT 10,000/ML - 100,000/ML NRG FTX;REPORTABLE SENSITIVITY REPORTED 04/27/16 16:10 NRG Bacterial susceptibility panel - 04/26/16 06:52 Gentamicin susceptibility test by minimum inhibitory concentration <= NRG Trimethoprim/sulfamethoxazole susceptibility test by minimum inhibitoryconcentration <= NRG Ampicillin susceptibility test by minimum inhibitory concentration <= NRG Tobramycin susceptibility test by minimum inhibitory concentration <= NRG Cefazolin susceptibility test by minimum inhibitory concentration <= NRG Ceftriaxone susceptibility test by minimum inhibitory concentration <= NRG Ampicillin/sulbactam susceptibility test by minimum inhibitory concentration <= NRG Piperacillin/tazobactam susceptibility test by minimum inhibitory concentration <= NRG Ciprofloxacin susceptibility test by minimum inhibitory concentration <= NRG Meropenem susceptibility test by minimum inhibitory concentration <= NRG Nitrofurantoin susceptibility test by minimum inhibitory concentration 128 NRG Aztreonam susceptibility test by minimum inhibitory concentration <= NRG Bacterial blood culture - 04/26/16 07:01 Bacterial blood culture NG NRG Capillary blood glucose measurement by glucometer (mass/volume) - 04/26/16 09:40 Capillary blood glucose measurement by glucometer (mass/volume) 109 mg/dL 70-110 Complete urinalysis with reflex to culture - 03/26/17 13:31 Urine color determination YELLOW NRG Urine clarity determination SLIGHTLY CLOUDY NRG Urine pH measurement by test strip 8 5-9 Specific gravity of urine by test strip 1.010 1.016-1.022 Urine protein assay by test strip, semi-quantitative [...] sediment leukocyte count by microscopy (number/high power field) [HPF] NRG Bacteria detection in urine sediment [...] culture - 03/26/17 13:31 Bacterial urine culture [id number] NRG COLONY COUNT 10,000/ML - 100,000/ML NRG FTX;REPORTABLE SENSITIVITY REPORTED 03/29/17 14:30 NR Bacterial susceptibility panel - 03/26/17 13:31 Gentamicin susceptibility test by minimum inhibitory concentration <= NRG Trimethoprim/sulfamethoxazole susceptibility test by minimum inhibitoryconcentration S NRG Ampicillin susceptibility test by minimum inhibitory concentration <= NRG Tobramycin susceptibility test by minimum inhibitory concentration <= NRG Cefazolin susceptibility test by minimum inhibitory concentration <= NRG Ceftriaxone susceptibility test by minimum inhibitory concentration <= NRG Ampicillin/sulbactam susceptibility test by minimum inhibitory concentration <= NRG Piperacillin/tazobactam susceptibility test by minimum inhibitory concentration S NRG Ciprofloxacin susceptibility test by minimum inhibitory concentration <= NRG Meropenem susceptibility test by minimum inhibitory concentration <= NRG Nitrofurantoin susceptibility test by minimum inhibitory concentration 128 NRG Aztreonam susceptibility test by minimum inhibitory concentration <= NRG Bacterial susceptibility panel - 03/26/17 13:31 Gentamicin susceptibility test by minimum inhibitory concentration <= NRG Tobramycin susceptibility test by minimum inhibitory concentration <= NRG Piperacillin/tazobactam susceptibility test by minimum inhibitory concentration S NRG Ciprofloxacin susceptibility test by minimum inhibitory concentration <= NRG Meropenem susceptibility test by minimum inhibitory concentration <= NRG Cefepime susceptibility test by minimum inhibitory concentration 2 NRG Capillary blood glucose measurement by glucometer (mass/volume) - 03/29/17 11:27 Capillary blood glucose measurement by glucometer (mass/volume) 77 mg/dL 70-110 Complete urinalysis with reflex to culture - 05/03/17 02:46 Urine color determination YELLOW NRG Urine clarity determination CLEAR NRG Urine pH measurement by test strip 7 5-9 Specific gravity of urine by test strip 1.005 1.016-1.022 Urine protein assay by test strip, semi-quantitative [...] sediment leukocyte count by microscopy (number/high power field) [HPF] NRG Bacteria detection in urine sediment [...] identification in urine sediment by light microscopy 0- 1 TRANS EPIS NR Bacterial urine culture - 05/03/17 02:46 Bacterial urine culture [id number] NRG COLONY COUNT <10,000 NRG FTX;REPORTABLE SENSITIVITY REPORTED AT 0752, 2-15-18 [facility] FREE TEXT ENTRY 2 (PREVIOUSLY REPORTED STAPH AUREUS) [facility] Bacterial susceptibility panel - 05/03/17 02:46 Gentamicin susceptibility test by minimum inhibitory concentration 2 NR Tobramycin susceptibility test by minimum inhibitory concentration <= NRG Piperacillin/tazobactam susceptibility test by minimum inhibitory concentration S NR Ciprofloxacin susceptibility test by minimum inhibitory concentration <= NRG Meropenem susceptibility test by minimum inhibitory concentration 1 NR Cefepime susceptibility test by minimum inhibitory concentration 4 [facility] Bacterial susceptibility panel - 05/03/17 02:46 Gentamicin susceptibility test by minimum inhibitory concentration <= NR Tobramycin susceptibility test by minimum inhibitory concentration <= NR Ciprofloxacin susceptibility test by minimum inhibitory concentration <= NRG Meropenem susceptibility test by minimum inhibitory concentration 1 [facility] Cefepime susceptibility test by minimum inhibitory concentration >= [facility] Bacterial susceptibility panel - 05/03/17 02:46 Oxacillin susceptibility test by minimum inhibitory concentration >= NR Gentamicin susceptibility test by minimum inhibitory concentration <= NRG Trimethoprim/sulfamethoxazole susceptibility test by minimum inhibitoryconcentration [...] Gentamicin susceptibility test by minimum inhibitory concentration <= NRG Trimethoprim/sulfamethoxazole susceptibility test by minimum inhibitoryconcentration S NRG Ampicillin susceptibility test by minimum inhibitory concentration <= NRG Tobramycin susceptibility test by minimum inhibitory concentration <= NRG Cefazolin susceptibility test by minimum inhibitory concentration <= NRG Ceftriaxone susceptibility test by minimum inhibitory concentration <= NRG Ampicillin/sulbactam susceptibility test by minimum inhibitory concentration <= NRG Piperacillin/tazobactam susceptibility test by minimum inhibitory concentration S NRG Ciprofloxacin susceptibility test by minimum inhibitory concentration <= NRG Meropenem susceptibility test by minimum inhibitory concentration <= NRG Nitrofurantoin susceptibility test by minimum inhibitory concentration 128 NRG Aztreonam susceptibility test by minimum inhibitory concentration <= NRG Complete blood count (CBC) with automated white blood cell (WBC) differential - 07/30/18 18:35 Blood leukocytes automated count (number/volume) 7.6 10*3/uL 4.3-11.0 Blood erythrocytes automated count (number/volume) 3.68 10*6/uL 4.35-5.85 Venous blood hemoglobin measurement (mass/volume) 11.6 g/dL 11.5-16.0 Blood hematocrit (volume fraction) 37 % 35-52 Automated erythrocyte mean corpuscular volume 100 [foz_us] 80-99 Automated erythrocyte mean corpuscular hemoglobin (mass per erythrocyte) 32 pg 25-34 Automated erythrocyte mean corpuscular hemoglobin concentration measurement (mass/volume) 32 g/dL 32-36 Automated erythrocyte distribution width ratio 11.9 % 10.0- 14.5 Automated blood platelet count (count/volume) 144 10*3/uL 130-400 Automated blood platelet mean volume measurement 13.0 [foz_us] 7.4-10.4 Automated blood neutrophils/100 leukocytes 63 % 42-75 Automated blood lymphocytes/100 leukocytes 23 % 12-44 Blood monocytes/100 leukocytes 9 % 0-12 Automated blood eosinophils/100 leukocytes 5 % 0-10 Automated blood basophils/100 leukocytes 0 % 0-10 Blood neutrophils automated count (number/volume) 4.8 10*3 1.8-7.8 Blood lymphocytes automated count (number/volume) 1.8 10*3 1.0-4.0 Blood monocytes automated count (number/volume) 0.7 10*3 0.0- 1.0 Automated eosinophil count 0.4 10*3/uL 0.0-0.3 Automated blood basophil count (count/volume) 0.0 10*3/uL 0.0-0.1 Comprehensive metabolic panel - 07/30/18 18:35 Serum or plasma sodium measurement (moles/volume) 139 mmol/L 135-145 Serum or plasma potassium measurement (moles/volume) 4.5 mmol/L 3.6-5.0 Serum or plasma chloride measurement (moles/volume) 96 mmol/L 98-107 Carbon dioxide 33 mmol/L 21-32 Serum or plasma anion gap determination (moles/volume) 10 mmol/L 5-14 Serum or plasma urea nitrogen measurement (mass/volume) 23 mg/dL 7-18 Serum or plasma creatinine measurement (mass/volume) 0.69 mg/dL 0.60-1.30 Serum or plasma urea nitrogen/creatinine mass ratio 33 NRG Serum or plasma creatinine measurement with calculation of estimated glomerular filtration rate > NRG Serum or plasma glucose measurement (mass/volume) 128 mg/dL 70-105 Serum or plasma calcium measurement (mass/volume) 9.6 mg/dL 8.5-10.1 Serum or plasma total bilirubin measurement (mass/volume) 0.4 mg/dL 0.1-1.0 Serum or plasma alkaline phosphatase measurement (enzymatic activity/volume) 78 U/L 40-136 Serum or plasma aspartate aminotransferase measurement (enzymatic activity/volume) 15 U/L 5-34 Serum or plasma alanine aminotransferase measurement (enzymatic activity/volume) 11 U/L 0-55 Serum or plasma protein measurement (mass/volume) 6.7 g/dL 6.4-8.2 Serum or plasma albumin measurement (mass/volume) 3.7 g/dL 3.2-4.5 CALCIUM CORRECTED 9.8 mg/dL 8.5-10.1 Lipase - 07/30/18 18:35 Lipase 15 U/L 8-78 Encounters ACCT No. Visit Date/Time Discharge Status Pt. Type Provider Facility Loc./Unit Complaint [id number] 04/24/2014 00:00:00 04/24/2014 23:59:59 CLS Outpatient DEREK UMANAMele JOSE Craven [id number] 03/20/2014 13:56:00 03/20/2014 23:59:59 CLS Outpatient BHAVANI RODRIGUEZ MD [id number] 12/12/2013 08:29:00 12/12/2013 23:59:59 CLS Outpatient BHAVANI RODRIUGEZ MD [id number] 12/01/2013 09:34:00 12/01/2013 23:59:59 CLS Outpatient BHAVANI RODRIGUEZ MD [id number] 10/20/2013 09:04:00 10/20/2013 23:59:59 CLS Outpatient BHAVANI RODRIGUEZ MD [id number] 09/14/2013 15:08:00 09/14/2013 23:59:59 CLS Outpatient BHAVANI RODRIGUEZ MD [id number] 08/30/2013 16:07:00 08/30/2013 23:59:59 CLS Outpatient DOT REED DDS [id number] 08/28/2013 11:21:00 08/28/2013 23:59:59 CLS Outpatient BHAVANI RODRIGUEZ MD [id number] 08/10/2013 12:52:00 08/10/2013 23:59:59 CLS Outpatient CAMERON VALDEZ DO [id number] 05/26/2013 09:29:00 05/26/2013 23:59:59 CLS Outpatient WHITE HIRAM JOSE Craven [id number] 05/18/2013 15:12:00 05/18/2013 23:59:59 CLS Outpatient CAMERON VALDEZ DO [id number] 03/24/2013 00:00:00 03/24/2013 23:59:59 CLS Outpatient DEREK GANDHI JOSE Craven [id number] 02/09/2013 13:46:00 02/09/2013 23:59:59 CLS Outpatient CAMERON VALDEZ DO [id number] 01/19/2013 08:41:00 01/19/2013 23:59:59 CLS Outpatient BHAVANI RODRIGUEZ MD [id number] 01/04/2013 10:17:00 01/04/2013 23:59:59 CLS Outpatient RUBÉN GOLDMAN APRN [id number] 12/15/2012 15:39:00 12/15/2012 23:59:59 CLS Outpatient CAMERON VALDEZ DO [id number] 11/03/2012 13:55:00 11/03/2012 23:59:59 CLS Outpatient CAMERON VALDEZ DO Jagdeep [id number] 01/05/2012 11:45:00 01/05/2012 23:59:59 [place] [id number] 01/05/2012 11:45:00 01/05/2012 23:59:59 CLS Outpatient ANOOPJASPAL MÉNDEZJOSE A [id number] 07/05/2012 13:31:00 Document Registration [id number] 07/30/2018 18:10:00 07/30/2018 20:22:00 DIS Emergency JAME PAGAN APRN [facility] ER PEG TUBE ISSUES [id number] 12/16/2017 10:15:00 12/16/2017 23:59:59 CLS Outpatient MARYCARMEN ANDREW MD [facility] SDC MALFUNCTIONING PEG TUBE [id number] 05/03/2017 08:54:00 05/03/2017 23:59:59 CLS Outpatient EVA LORENZO MD [facility] MLF [id number] 04/30/2017 11:33:00 04/30/2017 23:59:59 CLS Outpatient MARYCARMEN ANDREW MD [facility] RAD FOREIGN BODY IN STOMACH [id number] 04/28/2017 09:12:00 04/28/2017 23:59:59 CLS Outpatient MARYCARMEN ANDREW MD [facility] RAD [id number] 04/26/2017 12:03:00 04/26/2017 23:59:59 CLS Outpatient MARYCARMEN ANDREW MD [facility] RAD FOREIGN BODY IN ABD [id number] 04/23/2017 11:00:00 04/23/2017 23:59:59 CLS Outpatient MARYCARMEN ANDREW MD [facility] RAD S/P PEG TUBE CHANGE [id number] 04/21/2017 10:31:00 04/21/2017 16:00:00 DIS Outpatient MARYCARMEN ANDREW MD [facility] ENDO MALFUNCTIONIN PEG TUBE [id number] 04/15/2017 05:31:00 04/15/2017 11:14:00 DIS Outpatient KAMRAN LONDON, MARYCARMEN [facility] PREOP EGD REPLACE PEG TUBE [id number] 03/29/2017 10:17:00 03/29/2017 13:55:00 DIS Outpatient SATINDER FLORIAN MD [facility] ENDO STROKE/NON FUNCTIONING PEG TUBE [id number] 03/26/2017 14:34:00 03/26/2017 23:59:59 CLS Outpatient EVA LORENZO MD [facility] MLF [id number] 03/25/2017 05:41:00 03/25/2017 13:08:00 DIS Outpatient SATINDER FLORIAN MD [facility] PREOP EGD [id number] 04/26/2016 06:30:00 04/26/2016 10:30:00 DIS Emergency CHANEL LONDON, JON Shabazz [facility] ER SOA [id number] 08/16/2015 12:24:00 08/16/2015 16:45:00 DIS Outpatient ANIVAL LONDON, SATINDER Hobbs [facility] SDC PEG TUBE PLACEMENT [id number] 08/10/2015 19:59:00 08/10/2015 22:25:00 DIS Emergency VILLA TAVERA DO [facility] ER FALL [id number] 04/01/2015 13:05:00 05/02/2015 14:48:00 DIS Outpatient BHAVANI RODRIGUEZ MD [facility] REHAB CVA [id number] 03/27/2015 02:50:00 03/29/2015 16:35:00 DIS Inpatient BHAVANI RODRIGUEZ MD [facility] 4TH BRONCHITIS WITH HYPOXIA;POSSIBLE ASPIRATION; [id number] 02/23/2015 13:30:00 02/25/2015 17:16:00 DIS Inpatient NAFISA PRATER MD [facility] 4TH HYPOGLYCEMIA [id number] 02/16/2015 13:54:00 02/16/2015 15:32:00 DIS Emergency JAME PAGAN APRN [facility] ER LEAKING FEEDING TUBE [id number] 12/23/2014 19:38:00 12/23/2014 20:55:00 DIS Emergency DANIEL LONDON, LEONIE Tse [facility] ER FEEDING TUBE PROBLEMS [id number] 11/26/2014 18:08:00 11/29/2014 14:00:00 DIS Inpatient JENNIFER LONDON, BHAVANI Del Real [facility] SURGICAL UTI,GENERILIZED WEAKNESS [id number] 09/21/2014 15:34:00 10/24/2014 19:00:00 DIS Inpatient VIRY LONDON, BELL Childs [facility] IRF CLOSED HEAD INJURY [id number] 09/13/2014 05:26:00 09/13/2014 07:30:00 DIS Emergency CAROL LONDON, KASEY García [facility] ER STROKE [id number] 03/29/2014 00:26:00 03/29/2014 23:59:59 CLS Preadmit XIOMY ALBERTO [facility] REHAB [id number] 03/16/2014 13:00:00 03/28/2014 00:01:00 DIS Outpatient XIOMY ALBERTO [facility] REHAB L SHOULDER SCOPE BICEPS TENOTOMY [id number] 12/27/2013 08:06:00 12/27/2013 13:00:00 DIS Outpatient LIDYA STARR MD [facility] SDC LEFT TORN ROTATOR CUFF [id number] 12/20/2013 10:29:00 12/20/2013 23:59:59 CLS Outpatient LIDYA STARR MD [facility] PREOP LEFT TORN ROTATOR CUFF [id number] 08/18/2013 15:40:00 08/18/2013 23:59:59 CLS Outpatient XIOMY ALBERTO [facility] RAD ROTATOR CUFF TEAR [id number] 11/29/2012 13:48:00 01/19/2013 13:30:00 DIS Outpatient XIOMY ALBERTO [facility] REHAB L FROZEN SHOULDER AND TORN RTC [id number] 12/24/2014 02:47:06 ACT Document Registration [id number] 11/09/2016 15:10:47 11/09/2016 23:59:59 [facility] Outpatient
== END 2018-08-09 11:26 | disposition home or self-care (01) ==
LOC: EDUNIT# 09:54 → ER 09:56
DX: K94.23 Gastrostomy malfunction (principal); L92.9 Granulomatous disorder of the skin and subcutaneous tissue, unspecified; I48.91 Unspecified atrial fibrillation; I25.10 Atherosclerotic heart disease of native coronary artery without angina pectoris; I10 Essential (primary) hypertension; E11.40 Type 2 diabetes mellitus with diabetic neuropathy, unspecified; K21.0 Gastro-esophageal reflux disease with esophagitis; F41.9 Anxiety disorder, unspecified; F32.9 Major depressive disorder, single episode, unspecified; Z87.19 Personal history of other diseases of the digestive system; Z85.42 Personal history of malignant neoplasm of other parts of uterus; Z87.440 Personal history of urinary (tract) infections; Z86.73 Personal history of transient ischemic attack (TIA), and cerebral infarction without residual deficits; Z88.5 Allergy status to narcotic agent; Z79.4 Long term (current) use of insulin; Z95.9 Presence of cardiac and vascular implant and graft, unspecified; Z86.010 Personal history of colon polyps; Z98.890 Other specified postprocedural states; Z90.710 Acquired absence of both cervix and uterus
CPT/HCPCS: 99283